=== PATIENT | male | born 1960 | race Caucasian/White ===

== ENCOUNTER 2020-10-06 01:32 | Emergency (ER) | payer OTHER, SELFPAY ==
[2020-10-06 01:32] VITALS: BP 206/108; PULSE 82; RESP 16; TEMP 36.8; O2SAT 100; BMI 32.6
--- NOTE | 2020-10-06 01:55 | CT_ITS ---
PROCEDURE: CT ABDOMEN PELVIS WO CON CLINICAL INDICATION: right flank pain COMPARISON: No exams were available for comparison TECHNIQUE: Axial images obtained with sagittal and coronal reformats. All CT scans at the facility use one or more dose reduction, viz: automated exposure control, ma/kV adjustment per patient size (including targeted exams where dose is matched to indication, i.e. head), or iterative reconstruction technique. FINDINGS: LOWER THORAX: No acute finding ABDOMEN & PELVIS: The liver, spleen, adrenal glands, pancreas has an unremarkable appearance. There are bilateral renal calculi and renal cysts. Stones on the left measure to 11 mm in the lower pole. Stones on the right measure up to 8 mm. There is mild right hydronephrosis and hydroureter secondary to a 6 mm stone at the right ureterovesical junction. Urinary bladder is decompressed. There are multiple calcifications within the prostate. No intestinal obstruction or free air. No evidence of appendicitis or diverticulitis. There is mild osteoarthritic changes of the hips. Sub chondral cystic changes are present in the acetabuli left more extensive than right. IMPRESSION: Bilateral nephrolithiasis with a 6 mm stone in the right distal ureter at the ureterovesical junction causing mild right-sided obstructive uropathy. Dictated by: Jordon Paniagua MD 10/06/2020 06:19 Jordon Paniagua MD in [place] 10/06/2020 06:19
--- NOTE | 2020-10-06 01:56 | PC.NURSE ---
pt stated he is supposed to be taking a medication for HTN but lost it and hasnt been taking it. pt stated he doesnt know the name of the medicatin
[2020-10-06 01:59] VITALS: BP 182/97; PULSE 86; RESP 16; O2SAT 98
--- NOTE | 2020-10-06 01:59 | HMH.EDGENADL ---
ED Disposition Clinical Impression: Renal colic on right side, Urethral colic due to calculus Disposition: Home, Self-Care Condition on Discharge: Good Instructions: DI for Kidney Stones Additional Instructions: see urology for follow up Prescriptions: Tamsulosin HCl [Flomax 0.4mg capsule] 0.4 mg PO HS #10 cap Prescription Printed Referrals: PCP,No [Primary Care Provider] - - Critical Care Critical Care Time: No Attestation: On 10/06/20, the high probability of a clinically significant, sudden or life threatening deterioration of the following system(s) required my full and direct attention, intervention and personal management. The time I documented below is in addition to time spent performing reported procedures but includes the following listed in this critical care notation. Medical Decision Making - Medical Records Medical records reviewed: Yes: I reviewed the patient's medical records. - Kalpesh Inquiry Pt receiving controlled substance: No Vital Signs: 10/06/20 01:32 10/06/20 01:59 Temperature 98.2 F Temperature Source Oral Pulse Rate [Left Radial] 82 86 Respiratory Rate 16 16 Blood Pressure [Right Arm] 206/108 H 182/97 H Blood Pressure Mean [Right Arm] 140 125 Blood Pressure Source [Right Arm] Automatic Cuff Blood Pressure Position [Right Arm] Sitting 02 Sat by Pulse Oximetry 100 98 Oxygen Delivery Method Room Air Room Air - Lab Data Lab results reviewed: Yes: I reviewed the patient's lab results. Lab Results 10/06/20 01:47: Urine Color Yellow, Urine Appearance Clear, Urine pH 6.0, Ur Specific [place] >= 1.030, Urine Protein Trace, Urine Glucose (UA) Negative, Urine Ketones Negative, Urine Blood 2+, Urine Nitrate Negative, Urine Bilirubin Negative, Urine Urobilinogen 1.0, Ur Leukocyte Esterase Negative 10/06/20 01:47: WBC 9.7, RBC 5.02, Hgb 16.2, Hct 47.7, MCV 95.1 H, MCH 32.2 H, MCHC 33.9, RDW 14.0, Plt Count 231, MPV 8.2, Neut % (Auto) 52.2, Lymph % (Auto) 34.9, [place] % (Auto) 7.6, Eos % (Auto) 4.3, Baso % (Auto) 1.0, Neut # (Auto) 5.1, Lymph # (Auto) 3.4, [place] # (Auto) 0.7, Eos # (Auto) 0.4, Baso # (Auto) 0.1 10/06/20 01:47: Sodium 140, Potassium 3.6, Chloride 103, Carbon Dioxide 29, Anion Gap 11.6, BUN 21 H, Creatinine 0.90, Estimated Creat Clear 115, Estimated GFR 86, Est GFR ( Amer) 103, Glucose 111 H, Calcium 9.8, Total Bilirubin 0.5, AST 27, ALT 21, Alkaline Phosphatase 123, Total Protein 8.1, Albumin 4.5, Globulin 3.6 H, Albumin/Globulin Ratio 1.3 Result diagrams: 10/06/20 01:47 10/06/20 01:47 Orders (Tests/Meds): ED MEDICATIONS Discontinued Medications Generic Name Dose Route Start Last Admin Trade Name Freq PRN Reason Stop Dose Admin Tamsulosin HCl 0.4 mg 10/06/20 02:48 Tamsulosin 0.4mg Capsule PO 10/06/20 02:49 ONCE ONE ORDERS Category Date Time Status CT abdomen pelvis wo con Stat Cat Scan 10/06/20 01:55 Taken Urinalysis and Microscopic Stat Lab 10/06/20 01:47 Results - CT Data CT Scan: Abdomen, Pelvis Time Received: 02:[address] Reviewed: Yes: I have viewed the radiologist's interpretation Preliminary Findings: Abnormal (5 mm stone ) General Adult HPI - General Chief complaint: PAIN Stated complaint: Possible Kindey stone Time Seen by Provider: 10/06/20 01:59 Mode of Arrival: Ambulatory Source of Information: Patient, Medical Record Limitations: No Limitations Description of Symptoms (Recalled from ER Triage Doc. by RN): pt complains of right flank pain and pain while urinating. pt stated he has been to the ER and seen his PCP and wa diagnosed with a kidney stone. pt also stated he has an appointment with a urologist on saturday. pt stated he has been given PO torodol to take at home but it hasnt relieved his pain. - History of Present Illness HPI narrative: rt flank pain with hx of kidney stone Onset (ago): day(s) Severity: moderate Associated symptoms: denies other symptoms Treatments prior to arrival: none
[2020-10-06 02:03] LABS: Microscopic, Urine URINE MICROSCOPIC (MICROSCOPIC)
[2020-10-06 02:04] LABS: Basophils # 0.1 K/mm3 (0-0.2); Eosinophils # 0.4 K/mm3 (0.0-0.4); Eosinophils % 4.3 % (0.1-12.0); Hematocrit 47.7 % (42.0-52.0); Hemoglobin 16.2 g/dL (14.1-18.0); Lymphocytes # 3.4 K/mm3 (0.7-4.5); Lymphocytes % 34.9 % (10-50); Mean Corpuscular HGB Conc 33.9 g/dL (31.8-35.4); Mean Corpuscular Hemoglobin 32.2 pg (27.0-31.2); Mean Corpuscular Volume 95.1 fl (80-94); Mean Platelet Volume 8.2 fl (7.4-10.4); Monocytes # 0.7 K/mm3 (0.1-1.0); Monocytes % 7.6 % (1.7-9.3); Neutrophils # 5.1 K/mm3 (1.8-7.8); Neutrophils % 52.2 % (37.0-80.0); Platelet Count 231 K/mm3 (142-424); Red Blood Count 5.02 M/mm3 (4.60-6.20); White Blood Count 9.7 K/mm3 (4.8-10.8)
[2020-10-06 02:06] LABS: Appearance,Urine CLEAR (Clear); Bilirubin,Urine Negative (Negative); Blood, Urine 2+ (Negative); Color,Urine YELLOW (Yellow); Glucose,Urine (UA) Negative (Negative); Ketones,Urine Negative (Negative); Leukocyte Esterase,Urine Negative (Negative); Nitrate,Urine Negative (Negative); Protein,Urine TRACE (Negative); Specific Gravity, Urine >= 1.030 (1.005-1.030)
[2020-10-06 02:09] LABS: Alanine Aminotransferase 21 U/L (12-78); Albumin Level 4.5 g/dl (3.5-5.0); Albumin/Globulin Ratio 1.3 (1.1-1.8); Alkaline Phosphatase 123 U/L (38-126); Anion Gap 11.6 mEq/L (5-15); Aspartate Amino Transferase 27 U/L (17-59); Bilirubin,Total 0.5 mg/dl (0.2-1.3); Blood Urea Nitrogen 21 mg/dl (9-20); Calcium 9.8 mg/dl (8.4-10.2); Carbon Dioxide 29 mmol/L (22.0-30.0); Chloride 103 mmol/L (98-107); Creatinine Clearance Estimated 115 mL/min (50-200); Estimated Glomerular Filt Rate 86 ml/min (>60); GFR (African American) 103 ML/MIN (>60); Globulin 3.6 g/dL (1.3-3.2); Glucose 111 mg/dl (74-100); Potassium 3.6 mmoL/L (3.5-5.1); Sodium 140 mmol/L (136-145); Total Protein,Serum 8.1 g/dl (6.3-8.2)
--- NOTE | 2020-10-06 02:23 | PC.NURSE ---
pt back from RAD
[2020-10-06 02:53] LABS: Amorphous Sediment,Urine Trace /lpf; Bacteria,Urine 1+ /lpf; Calcium Oxalate Crystals,Urine 1+ /lpf; RBC,Urine 20-50 #/hpf (0-3); WBC,Urine Occasional #/hpf (0-3)
[2020-10-06 03:08] VITALS: BP 179/89; PULSE 81; RESP 16; TEMP 36.7; O2SAT 98
== END 2020-10-06 03:09 | disposition home or self-care (01) ==
PROVIDERS: Emergency Provider Emergency Medicine
DX: N21.1 Calculus in urethra (principal); F17.210 Nicotine dependence, cigarettes, uncomplicated
CPT/HCPCS: 74176; 80053; 81001; 85025; 99283

== ENCOUNTER 2021-05-01 20:29 | Emergency (ER) | payer OTHER, SELFPAY ==
[2021-05-01] VITALS (7 sets, daily range): BP systolic 126–199; BP diastolic 68–93; PULSE 66–79; RESP 20; TEMP 36.7; O2SAT 95–99; BMI 31.4
--- NOTE | 2021-05-01 21:00 | PC.NURSE ---
Dr. Bosch on phone with Dr. Mark Albarado of [facility] hand team
--- NOTE | 2021-05-01 21:48 | XR_ITS ---
PROCEDURE INFORMATION: Exam: XR Left Hand Exam date and time: 05/01/2021 9:48 PM Age: 60 years old Clinical indication: Injury or trauma; Other: Plastic rim on furniture luis m exploded, severe trauma to left 4th finger. ; Work related; Amputation, traumatic and bleeding/hemorrhage and blunt trauma (contusions or hematomas); Left ring finger; Patient HX: Patient was putting air in a furniture luis m tire when the plastic rim exploded causing trauma to left 4th (ring) finger. ; Additional info: Finger amp TECHNIQUE: Imaging protocol: XR Left hand. Views: 3 or more views. COMPARISON: No relevant prior studies available. FINDINGS: Bones/joints: Fracture/amputation tuft fourth distal phalanx. No dislocation. Soft tissues: Soft tissue loss along distal fourth digit. Tiny artifact or radiopaque foreign body along distal second digit. IMPRESSION: Fourth distal phalanx fracture/amputation.
--- NOTE | 2021-05-01 23:03 | PC.NURSE ---
Dr. Mark Albarado, hand team @ [facility] has accepted patient to [facility]
--- NOTE | 2021-05-01 23:16 | HMH.EDGENADL ---
ED Disposition Clinical Impression: Amputation of finger tip Disposition: Xfer Other Condition on Discharge: Good Additional Instructions: Go to [facility] ED for evaluation for your finger Referrals: Provider,Referral, [Primary Care Provider] - Forms: Transfer Record - ED - Critical Care Critical Care Time: No Attestation: On 05/01/21, the high probability of a clinically significant, sudden or life threatening deterioration of the following system(s) required my full and direct attention, intervention and personal management. The time I documented below is in addition to time spent performing reported procedures but includes the following listed in this critical care notation. Medical Decision Making - Medical Records Medical records reviewed: Yes: I reviewed the patient's medical records. - Kalpesh Inquiry Pt receiving controlled substance: No Vital Signs: 05/01/21 20:30 05/01/21 21:00 05/01/21 21:30 Temperature 98.0 F Temperature Source Oral Pulse Rate 70 72 Pulse Rate [Right] 79 Respiratory Rate 20 Blood Pressure 164/80 H 185/88 H Blood Pressure [Right Arm] 126/68 Blood Pressure Mean 94 115 Blood Pressure Mean [Right Arm] 87 02 Sat by Pulse Oximetry 98 97 98 Oxygen Delivery Method Room Air Room Air Room Air 05/01/21 22:00 05/01/21 22:30 05/01/21 23:00 Temperature Temperature Source Pulse Rate 70 70 66 Pulse Rate [Right] Respiratory Rate Blood Pressure 199/92 H 194/93 H 173/88 H Blood Pressure [Right Arm] Blood Pressure Mean Blood Pressure Mean [Right Arm] 02 Sat by Pulse Oximetry 95 99 98 Oxygen Delivery Method Orders (Tests/Meds): ED MEDICATIONS Discontinued Medications Generic Name Dose Route Start Last Admin Trade Name Ernestoq PRN Reason Stop Dose Admin Cefazolin Sodium 2 gm/ Sodium 50 mls @ 100 mls/hr 05/01/21 20:50 05/01/21 21:48 Chloride IV 05/01/21 21:19 100 mls/hr ONCE ONE Administration Protocol Morphine Sulfate 4 mg 05/01/21 22:33 05/01/21 20:45 Morphine 4mg/Ml Syringe IV 05/01/21 22:34 4 mg ONCE ONE Administration Ondansetron HCl 4 mg 05/01/21 22:33 05/01/21 20:45 Ondansetron 4mg/2ml Vial IV 05/01/21 22:34 4 mg ONCE ONE Administration Medical Decision Narrative: 60-year-old male presents with finger injury. Up-to-date on tetanus. Given Ancef. X-ray ordered which showed fingertip amputation. Discussed with [facility] on will transfer to [facility] for amp revision. sent by private vehicle. General Adult HPI - General Chief complaint: Extremity Injury, Upper Stated complaint: hand injury Time Seen by Provider: 05/01/21 20:40 Mode of Arrival: Family Vehicle Limitations: No Limitations Description of Symptoms (Recalled from ER Triage Doc. by RN): Pt was changin a tire, when it exploded off of the rim and pt sustained injuries to left 3rd & 4th digit. Laceration to posterior 3rd digit. Tip of the 4th digit is missing. Pt states he had a tetanus shot 3 yrs ago. He denies any pain or injury to head, chest, or face during the explosive - History of Present Illness HPI narrative: 60-year-old male with no significant past medical history who presents with a left hand injury. With a cart blowing up a tire when it broke and crushed his left fourth finger and middle finger. Sudden onset, severe, nonradiating pain in his hand. Bleeding controlled on scene. Came here for further evaluation. No other injuries. - Related Data Previous Rx's Medication Instructions Recorded Tamsulosin HCl [Flomax 0.4mg 0.4 mg PO HS #10 cap 10/06/20 capsule] Allergies Allergy/AdvReac Type Severity Reaction Status Date / Time No Known Allergies Allergy Verified 10/06/20 01:53 [facility] History - Hepatitis A Screen Drug use history?: No High risk sexual behaviors?: No History of sexually transmitted infection?: No Currently employed?: No
== END 2021-05-02 | disposition other institution (70) ==
PROVIDERS: Emergency Provider Emergency Medicine
DX: S68.125A Partial traumatic metacarpophalangeal amputation of left ring finger, initial encounter (principal); S61.213A Laceration without foreign body of left middle finger without damage to nail, initial encounter; W37.8XXA Explosion and rupture of other pressurized tire, pipe or hose, initial encounter; Y92.89 Other specified places as the place of occurrence of the external cause; Y99.8 Other external cause status; F17.210 Nicotine dependence, cigarettes, uncomplicated
CPT/HCPCS: 73130; 96365; 96375; 99283; J2405

== ENCOUNTER 2021-05-28 18:21 | Emergency (ER) | payer OTHER, SELFPAY ==
[2021-05-28 18:22] VITALS: BP 170/94; PULSE 88; RESP 16; TEMP 37; O2SAT 98; BMI 31.4
--- NOTE | 2021-05-28 18:36 | HMH.EDGENADL ---
ED Disposition Clinical Impression: Corneal abrasion Qualifiers: Encounter type: initial encounter Laterality: right Qualified Code(s): S05.01XA - Injury of conjunctiva and corneal abrasion without foreign body, right eye, initial encounter Disposition: Home, Self-Care Condition on Discharge: Good Instructions: DI for Corneal Abrasion Additional Instructions: Use gentamicin eyedrops 1 drop in your right eye every 4 hours while awake. See Dr. Friedman or one of his partners at [facility] tomorrow. Call tomorrow morning to make appointment. Dr. Lino Friedman [facility] [address] [place] [address] Additional instructions for EYE PAIN or INJURY: Return to the emergency department if severe pain, loss of vision, pus drainage, severe swelling or redness of eyelids. Referrals: Provider,Referral, [Primary Care Provider] - - Critical Care Critical Care Time: No Attestation: On 05/28/21, the high probability of a clinically significant, sudden or life threatening deterioration of the following system(s) required my full and direct attention, intervention and personal management. The time I documented below is in addition to time spent performing reported procedures but includes the following listed in this critical care notation. Medical Decision Making - Kalpesh Inquiry Pt receiving controlled substance: No Vital Signs: 05/28/21 18:22 Temperature 98.6 F Temperature Source Oral Pulse Rate [Radial] 88 Respiratory Rate 16 Blood Pressure [Right Radial Artery] 170/94 H Blood Pressure Mean [Right Radial Artery] 119 Blood Pressure Position [Right Radial Artery] Sitting 02 Sat by Pulse Oximetry 98 Oxygen Delivery Method Room Air General Adult HPI - General Stated complaint: FB R eye Time Seen by Provider: 05/28/21 18:36 - History of Present Illness HPI narrative: Hit in his right eye with a branch earlier today, has persistent foreign body sensation in the upper outer aspect of his eye. Wears reading glasses, no other visual correction, no contact lens wear. - Related Data Previous Rx's Medication Instructions Recorded Tamsulosin HCl [Flomax 0.4mg 0.4 mg PO HS #10 cap 10/06/20 capsule] Allergies Allergy/AdvReac Type Severity Reaction Status Date / Time No Known Allergies Allergy Verified 10/06/20 01:53 [facility] History - Hepatitis A Screen Attestation statement:: This patient has been screened for Hepatitis A risk factors. I have reviewed the patient's past medical history: Yes - Social History Smoking Status: Current every day smoker # Packs/Day (cigarettes): 1 Alcohol Intake: never Occupational Status: unemployed ROS Obtained: Yes Systems reviewed as appropriate & no additional complaints - Eyes Eyes: Denies blind spots, Reports eye pain, Denies photophobia Physical Exam - General General appearance: alert, in no apparent distress - Head Head exam: atraumatic, normocephalic - Expanded Eye Exam Slit lamp exam: performed Eyelids: right: swelling eyelids (Minimal) Pupils: Right: regular, round Sclera/Conjunctival: right: injection Anterior chamber: bilateral: normal inspection Both Eyes Image: 1 - Corneal abrasion Comment: Fluorescein staining performed with magnification. Abrasion as noted. No foreign bodies of cornea noted. Lids everted, no foreign bodies found. Upper lid swept with moistened Q-tip. - Respiratory Respiratory exam: Absent: respiratory distress - Cardiovascular Cardiovascular exam: Present: regular rate - Neurological Exam Neurological exam: Present: alert, oriented X3 - Psychiatric Psychiatric exam: Present: normal affect, normal mood - Skin Skin exam: Present: warm, dry
--- NOTE | 2021-05-28 18:47 | PC.NURSE ---
Dr Navarro with pt using the Slit Lamp.
[2021-05-28 19:15] VITALS: BP 167/5; PULSE 78; RESP 17; TEMP 36.8; O2SAT 98
== END 2021-05-28 19:18 | disposition home or self-care (01) ==
PROVIDERS: Emergency Provider Emergency Medicine
DX: S05.01XA Injury of conjunctiva and corneal abrasion without foreign body, right eye, initial encounter (principal); W22.8XXA Striking against or struck by other objects, initial encounter; Y92.9 Unspecified place or not applicable; F17.210 Nicotine dependence, cigarettes, uncomplicated
CPT/HCPCS: 99282

== ENCOUNTER 2022-05-19 15:08 | Emergency (ER) | payer OTHER, SELFPAY ==
[2022-05-19 15:15] VITALS: BP 131/86; PULSE 79; RESP 19; TEMP 36.7; O2SAT 97; BMI 30.7
--- NOTE | 2022-05-19 15:29 | HMH.EDUTC ---
[facility] Disposition Clinical Impression: Exposure to COVID-19 virus Disposition: Home, Self-Care Condition on Discharge: Good Instructions: DI for COVID-19 (Suspected or Confirmed ) Additional Instructions: You have been tested for COVID19. Please isolate yourself as if you are positive until test results received. Referrals: Provider,Referral, [Primary Care Provider] - Time of Disposition: 15:31 Medical Decision Making - Kalpesh Inquiry Pt receiving controlled substance: No Vital Signs: 05/19/22 15:15 Temperature 98.1 F Temperature Source Oral Pulse Rate [Right Brachial] 79 Respiratory Rate 19 Blood Pressure [Right Arm] 131/86 Blood Pressure Mean [Right Arm] 101 Blood Pressure Source [Right Arm] Automatic Cuff Blood Pressure Position [Right Arm] Sitting 02 Sat by Pulse Oximetry 97 Oxygen Delivery Method Room Air Orders (Tests/Meds): ORDERS Category Date Time Status Covid-19 Nasal PCR ([facility]) Routine Lab 05/19/22 15:17 Received [facility] HPI - General Stated complaint: exposed to covid, cough Time Seen by Provider: 05/19/22 15:29 Mode of Arrival: Ambulatory Source of Information: Patient Limitations: No Limitations Description of Symptoms (Recalled from Triage Doc. by RN): PATIENT C/O FATIGUE AND COUGH X2 DAYS. RECENTLY EXPOSED TO COVID HEENT Symptoms (Recalled from RN notes): No Resp Symptoms (Recalled from RN notes): Yes Skin Symptoms (Recalled from RN notes): No MS Symptoms (Recalled from RN notes): No Functional Status (Recalled from RN notes): WNL - History of Present Illness Provider Complaint: Cough X 2 days. Sister and brother in law have COVID19 currently. Saw them last 1 week ago. Onset (ago): day(s) (2) Location: chest Relieving factors: none Exacerbating factors: none Associated symptoms: cough Treatments prior to arrival: none - Related Data Previous Rx's Medication Instructions Recorded Tamsulosin HCl [Flomax 0.4mg 0.4 mg PO HS #10 cap 10/06/20 capsule] Allergies Allergy/AdvReac Type Severity Reaction Status Date / Time No Known Allergies Allergy Verified 10/06/20 01:53 - Worker's Comp Is this a Worker's Comp case?: No [facility] History - Hepatitis A Screen Attestation statement:: This patient has been screened for Hepatitis A risk factors. I have reviewed the patient's past medical history: Yes - Social History Smoking Status: Current every day smoker # Packs/Day (cigarettes): 1 Alcohol Intake: never Occupational Status: unemployed ROS Obtained: Yes All systems reviewed & no additional complaints - Respiratory Respiratory: Reports cough Physical Exam - General General appearance: alert, in no apparent distress - Head Head exam: normocephalic - Eye Eye exam: Present: PERRL - ENT ENT exam: Present: normal oropharynx, TM's normal bilaterally - Neck Neck exam: Present: normal inspection. Absent: lymphadenopathy - Chest Chest inspection: Present: normal inspection, symmetric chest wall rise - Respiratory Respiratory exam: Present: normal lung sounds bilaterally - Cardiovascular Cardiovascular exam: Present: regular rate, normal rhythm - Neurological Exam Neurological exam: Present: alert, oriented X3 - Psychiatric Psychiatric exam: Present: normal affect, normal mood - Skin Skin exam: Present: warm, dry, intact
[2022-05-19 15:40] VITALS: BP 131/86; PULSE 79; RESP 19; TEMP 36.7; O2SAT 97
== END 2022-05-19 15:43 | disposition home or self-care (01) ==
PROVIDERS: Emergency Provider Physician Assistant
DX: R05.9 Cough, unspecified; R53.83 Other fatigue; Z72.0 Tobacco use; Z20.822 Contact with and (suspected) exposure to COVID-19
CPT/HCPCS: 99212; C9803; G0463; U0003; U0005

== ENCOUNTER 2022-09-17 08:24 | Emergency (ER) | payer OTHER, SELFPAY ==
--- NOTE | 2022-09-17 08:21 | ECG_ITS ---
APPROVED REPORT Exam: Resting ECG HR:79 bpm ECG Measurements Heart Rate 79 AXES RI 144 P 29 QRSd 108 QRS 9 QT 370 T 61 QTc 404 Conclusion SINUS RHYTHM INCOMPLETE RIGHT BUNDLE BRANCH BLOCK [90+ ms QRS DURATION, TERMINAL R IN V1/V2, 40+ ms S IN I/aVL/V4/V5/V6] MODERATE ST DEPRESSION [0.05+ mV ST DEPRESSION] ABNORMAL ECG UNCONFIRMED REPORT Electronically signed by : Arik Sky MD 09/17/2022 21:40:20
[2022-09-17 08:25] VITALS: BP 178/92; PULSE 76; RESP 17; TEMP 36.8; O2SAT 98; BMI 31.6
[2022-09-17 08:29] VITALS: BP 172/76; PULSE 70; RESP 17; TEMP 36.7; O2SAT 99
--- NOTE | 2022-09-17 08:32 | HMH.EDGENADL ---
Discharge Plan Disposition Patient Disposition: Home, Self-Care Condition: Good Chief Complaint: Chest Pain Prescriptions Prescriptions: No Action tamsulosin 0.4 MG capsule 0.4 mg PO HS Qty: 10 0RF Referrals Follow up/Referrals: Provider,Referral, [Primary Care Provider] - See instructions Anitra Mathews DO [Staff Physician] - 7-14 days Clinical Impressions Clinical Impression: Chest pain Instructions Patient Instructions: DI for Atypical Chest Pain Discharge ED Provider: Dl Mendez General Adult HPI General Chief complaint: Chest Pain Stated complaint: CHEST PAIN Time Seen by Provider: 09/17/22 08:32 Mode of Arrival: Ambulatory Limitations: No Limitations Description of Symptoms (Recalled from ER Triage Doc. by RN): PT REPORTS CHEST PAIN FOR 2 WEEKS. REPORTS CHEST PRESSURE History of Present Illness HPI narrative: 62-year-old male with prior medical history of hypertension, hyperlipidemia, does report active smoking, denies any prior cardiac work-up, specifically no prior stress test or cardiac cath. He presents with chest pain described as tightness across the chest has been ongoing for approximately 2 weeks, states he has experienced a crescendo last night but waited till this morning to come in as it is just been worsening recently. He denies any associated shortness of breath, nausea, vomiting, diaphoresis, radiation to the back, denies exertional component. Denies radiation to the arms, neck or jaw. He not taken any nitroglycerin or aspirin or attempted any other symptomatic treatments thus far. Currently rates pain as moderate, he does state that it seems worse at night particularly with lying down however it was present before he lie down he does not note burning or have any known history of GERD. Related Data Previous Rx's Medication Instructions Recorded tamsulosin 0.4 mg capsule 0.4 mg PO HS #10 caps 10/06/20 Allergies Allergy/AdvReac Type Severity Reaction Status Date / Time No Known Allergies Allergy Verified 10/06/20 01:53 [facility] 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 (Updated 09/17/22 @ 09:51 by Dl Mendez MD) Hypertension Surgical History (Updated 09/17/22 @ 08:34 by Irena Mcneal RN) History of knee surgery History of neck surgery History of shoulder surgery Hx of inguinal hernia repair Family History (Updated 09/17/22 @ 08:34 by Irena Mcneal RN) Other No significant family 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 Smoking Status: Current every day smoker alcohol intake: never current occupational status: unemployed Travel in the last 8 weeks: None ROS Obtained: Yes Systems reviewed as appropriate & no additional complaints except as documented Constitutional Constitutional: Reports system reviewed and no additional complaints, except as documented Eyes Eyes: Reports system reviewed and no additional complaints, except as documented ENT Ears, Nose, Mouth, and Throat: Reports system reviewed and no additional complaints, except as documented Cardiovascular Cardiovascular: Reports system reviewed and no additional complaints, except as documented Respiratory Respiratory: Reports system reviewed and no additional complaints, except as documented Gastrointestinal Gastrointestingal: Reports system reviewed and no additional complaints, except as documented Genitourinary Male Genitourinary: Reports system reviewed and no additional complaints, except as documented Musculoskeletal Musculoskeletal: Reports system reviewed and no additional complaints, except as documented Integumentary/Breasts Skin/Breast: Reports system reviewed and no additional complaints, except as documented Neurologic Neurologic: Reports system reviewed and no additional complaints, except as documented Endocrine Endocrine: Reports system reviewed and no additional complaints, except as documented Hematologic/Lymphatic Henatologic/Lymphatic: Rep
--- NOTE | 2022-09-17 08:35 | PC.NURSE ---
ED MD AT BEDSIDE FOR EVALUATION
[2022-09-17 08:50] LABS: Basophils # 0.1 K/mm3 (0-0.2); Basophils % 0.9 % (0.1-2.0); Eosinophils # 0.3 K/mm3 (0.0-0.4); Eosinophils % 4.2 % (0.1-12.0); Hematocrit 45.3 % (42.0-52.0); Lymphocytes # 2.7 K/mm3 (0.7-4.5); Lymphocytes % 38.1 % (10-50); Mean Platelet Volume 8.3 fl (7.4-10.4); Monocytes # 0.5 K/mm3 (0.1-1.0); Monocytes % 6.9 % (1.7-9.3); Neutrophils # 3.6 K/mm3 (1.8-7.8); Neutrophils % 49.9 % (37.0-80.0); Platelet Count 234 K/mm3 (142-424); Red Blood Count 4.82 M/mm3 (4.60-6.20); Red Cell Distribution Width 13.8 % (11.5-17.5); White Blood Count 7.1 K/mm3 (4.8-10.8)
[2022-09-17 08:57] LABS: Anion Gap 11.6 mEq/L (5-15); Blood Urea Nitrogen 15 mg/dl (9-20); Calcium 9.5 mg/dl (8.4-10.2); Carbon Dioxide 31 mmol/L (22.0-30.0); Chloride 102 mmol/L (98-107); Creatinine Clearance Estimated 109 mL/min (50-200); Estimated Glomerular Filt Rate 114 ml/min (>60); GFR (African American) 137 ML/MIN (>60); Glucose 128 mg/dl (74-100); Potassium 3.6 mmoL/L (3.5-5.1); Sodium 141 mmol/L (136-145)
[2022-09-17 09:01] VITALS: BP 177/81; PULSE 60; RESP 18; O2SAT 96
[2022-09-17 09:09] LABS: Troponin I < 0.01 ng/ml (0.00-0.034)
[2022-09-17 09:31] VITALS: BP 160/76; PULSE 66; RESP 18; O2SAT 95
--- NOTE | 2022-09-17 09:43 | PC.NURSE ---
ED MD AT BEDSIDE TO REEVALUATE PT
[2022-09-17 09:54] VITALS: BP 160/76; PULSE 60; RESP 18; TEMP 36.7; O2SAT 95
== END 2022-09-17 09:55 | disposition home or self-care (01) ==
PROVIDERS: Emergency Provider Emergency Medicine
DX: R07.9 Chest pain, unspecified (principal); I10 Essential (primary) hypertension; E78.5 Hyperlipidemia, unspecified
CPT/HCPCS: 80048; 84484; 85025; 93005; 99284

== ENCOUNTER → 2022-09-25 08:27 | Outpatient (CLI) | payer OTHER, SELFPAY ==
[2022-09-25 09:12] LABS: Microscopic, Urine URINE MICROSCOPIC (MICROSCOPIC)
[2022-09-25 09:25] LABS: Appearance,Urine CLEAR (Clear); Bilirubin,Urine Negative (Negative); Blood, Urine TRACE-L (Negative); Color,Urine YELLOW (Yellow); Glucose,Urine (UA) Negative (Negative); Ketones,Urine TRACE (Negative); Leukocyte Esterase,Urine Negative (Negative); Nitrate,Urine Negative (Negative); Protein,Urine TRACE (Negative)
[2022-09-25 09:27] LABS: Basophils # 0.1 K/mm3 (0-0.2); Basophils % 1.1 % (0.1-2.0); Eosinophils # 0.2 K/mm3 (0.0-0.4); Eosinophils % 2.9 % (0.1-12.0); Hematocrit 46.1 % (42.0-52.0); Lymphocytes # 2.5 K/mm3 (0.7-4.5); Lymphocytes % 29.7 % (10-50); Mean Corpuscular HGB Conc 32.6 g/dL (31.8-35.4); Mean Corpuscular Hemoglobin 31.2 pg (27.0-31.2); Mean Corpuscular Volume 95.7 fl (80-94); Mean Platelet Volume 8.3 fl (7.4-10.4); Monocytes # 0.6 K/mm3 (0.1-1.0); Monocytes % 6.6 % (1.7-9.3); Neutrophils % 59.7 % (37.0-80.0); Platelet Count 256 K/mm3 (142-424); Red Blood Count 4.82 M/mm3 (4.60-6.20); White Blood Count 8.4 K/mm3 (4.8-10.8)
[2022-09-25 09:42] LABS: RBC,Urine Occasional #/hpf (0-3)
[2022-09-25 09:58] LABS: Hemoglobin A1C 5.5 % (4.0-6.0)
[2022-09-25 10:02] LABS: Alanine Aminotransferase 19 U/L (12-78); Albumin Level 4.4 g/dl (3.5-5.0); Albumin/Globulin Ratio 1.6 (1.1-1.8); Alkaline Phosphatase 106 U/L (38-126); Anion Gap 17.3 mEq/L (5-15); Aspartate Amino Transferase 23 U/L (17-59); Bilirubin,Total 0.3 mg/dl (0.2-1.3); Blood Urea Nitrogen 17 mg/dl (9-20); Calcium 9.7 mg/dl (8.4-10.2); Carbon Dioxide 27 mmol/L (22.0-30.0); Chloride 102 mmol/L (98-107); Chol/HDL Ratio 5.2 (1-3.5); Cholesterol 177 mg/dl (140-200); Estimated Glomerular Filt Rate 114 ml/min (>60); GFR (African American) 137 ML/MIN (>60); Globulin 2.8 g/dL (1.3-3.2); Glucose 91 mg/dl (74-100); HDL Cholesterol 34 mg/dl (40-60); Potassium 4.3 mmoL/L (3.5-5.1); Sodium 142 mmol/L (136-145); Total Protein,Serum 7.2 g/dl (6.3-8.2); Triglycerides 140 mg/dl (30-150); VLDL Cholesterol 28 mg/dL (0-40)
[2022-09-25 10:13] LABS: Direct LDL Cholesterol 118.01 mg/dL (100-129)
[2022-09-25 10:32] LABS: Prostate Specific Ag Screen 0.3 ng/ml (0.0-4.0); Thyroid Stimulating Hormone 4.76 uIU/mL (0.465-4.68)
== END ==
PROVIDERS: PCP Family Medicine; Visit Provider Family Medicine
DX: R07.9 Chest pain, unspecified (principal); R10.9 Unspecified abdominal pain; I10 Essential (primary) hypertension; E66.9 Obesity, unspecified; Z68.33 Body mass index [BMI] 33.0-33.9, adult; Z12.5 Encounter for screening for malignant neoplasm of prostate
CPT/HCPCS: 36415; 80053; 80061; 81001; 83036; 84443; 85025; G0103

== ENCOUNTER 2022-10-27 11:02 | Emergency (ER) | payer OTHER, SELFPAY ==
--- NOTE | 2022-10-27 11:40 | XR_ITS ---
PROCEDURE INFORMATION: Exam: XR Right Shoulder Exam date and time: 10/27/2022 11:37 AM Age: 62 years old Clinical indication: Patient HX: Pain in right shoulder, popped 2 days ago TECHNIQUE: Imaging protocol: Radiologic exam of the Right shoulder. Views: 2 or more views. COMPARISON: No relevant prior studies available. FINDINGS: Bones/joints: Degenerative changes of the glenohumeral and acromioclavicular joints. There is no evidence of acute fracture. There is no evidence of joint malalignment or dislocation. Postoperative changes of the lower cervical upper thoracic spine. Soft tissues: No focal soft tissue swelling. IMPRESSION: 1. Degenerative changes of the glenohumeral and acromioclavicular joints. 2. No evidence of acute fracture. 3. No evidence of acute dislocation.
[2022-10-27 11:52] VITALS: BP 186/90; PULSE 75; RESP 16; TEMP 37.1; O2SAT 96; BMI 31.4
--- NOTE | 2022-10-27 12:18 | EXP.UTC ---
Discharge Plan Disposition Patient Disposition: Home, Self-Care Condition: Good Prescriptions Prescriptions: New diclofenac sodium 1 % gel 4 g topical QID Qty: 100 0RF Rx Instructions: apply to right shoulder No Action pantoprazole [Protonix] 40 mg tablet,delayed release (DR/EC) 40 mg PO DAILY Qty: 30 1RF cyclobenzaprine 10 mg tablet 10 mg PO TID PRN (Reason: muscle spasm) Qty: 90 1RF lisinopril 20 mg tablet 20 mg PO DAILY Qty: 30 1RF Referrals Follow up/Referrals: Anitra Mathews DO [Primary Care Provider] - See instructions Clinical Impressions Clinical Impression: Shoulder pain Qualifiers: Chronicity: acute Laterality: right Qualified Code(s): M25.511 - Pain in right shoulder Discharge ED Provider: Vicenta Gonsalez [facility] General Stated complaint: Right shoulder pain, no accident Mode of Arrival: Ambulatory Limitations: No Limitations Time Seen by Provider: 10/27/22 12:19 Description of Symptoms (Recalled from Triage Doc. by RN): pt comes in with c/o right arm pain. pt states he felt his arm pop yesterday. symptoms began yesterday HEENT Symptoms (Recalled from RN notes): No Resp Symptoms (Recalled from RN notes): No Skin Symptoms (Recalled from RN notes): No MS Symptoms (Recalled from RN notes): Yes Functional Status (Recalled from RN notes): n/a History of Present Illness Provider Complaint: Pt relates that he has had 6 surgeries on his right shoulder in the past. He that that it pops and cracks all the time. He states that he was lifting up his arm last night and he heard a pop and he has not been able to move his shoulder well since that time. Related Data Previous Rx's Medication Instructions Recorded cyclobenzaprine 10 mg tablet 10 mg PO TID PRN muscle spasm #90 10/08/22 tabs lisinopril 20 mg tablet 20 mg PO DAILY #30 tabs 10/08/22 pantoprazole 40 mg tablet,delayed 40 mg PO DAILY #30 tabs 10/08/22 release (Protonix) diclofenac sodium 1 % topical gel 4 g topical QID #100 grams 10/27/22 Allergies Allergy/AdvReac Type Severity Reaction Status Date / Time No Known Allergies Allergy Verified 10/27/22 11:56 Worker's Comp Is this a Worker's Comp case?: No [facility] Disclaimer: The information contained in this section may have been updated after the patient was seen, as this information can be updated by other users. 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 Amputation of finger tip Corneal abrasion Exposure to COVID-19 virus Hypertension Nerve damage Renal colic on right side Urethral colic due to calculus Surgical History History of knee surgery History of neck surgery History of shoulder surgery Hx of inguinal hernia repair Family History Other No significant family 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 Smoking Status: Current every day smoker tobacco type: cigarettes packs per day: 1 pack-years: 20 quit status: has quit before alcohol intake: never substance use type: denies use current occupational status: unemployed Travel in the last 8 weeks: None adopted: No caregiver/support person: No foster care: No household members: friend(s) housing: apartment lives independently: Yes marital status: single number of children: 3 number of grandchildren: 7 service: Yes (discharged 1985) 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: No ROS Obtained: Yes All systems reviewed & no additional complaints except as documented Constitutional Constitutional: Reports system reviewed and no additional complaints, except as documented Eyes Eyes: Reports system reviewed and no additional complaints, except as documented ENT Ears, Nose, Mouth, and Throat: Reports system reviewed and no additional complaints, except as documented
[2022-10-27 12:36] VITALS: BP 186/90; PULSE 75; RESP 16; TEMP 37.1
== END 2022-10-27 12:37 | disposition home or self-care (01) ==
PROVIDERS: Emergency Provider Nurse Practitioner Family; PCP Family Medicine
DX: M25.511 Pain in right shoulder (principal)
CPT/HCPCS: 73030; 99212; G0463

== ENCOUNTER → 2022-12-03 12:16 | Outpatient (CLI) | payer OTHER, SELFPAY ==
--- NOTE | 2022-12-03 12:21 | XR_ITS ---
FINAL REPORT CLINICAL HISTORY: neck pain FINDINGS: AP, lateral and odontoid views of the cervical spine were obtained. There is no prior exam for comparison. There are postoperative changes from anterior fusion of C7-T1. Alignment is normal. There is no acute fracture. Multilevel degenerative disc disease is most pronounced at C6-7. Precervical soft tissues are unremarkable. IMPRESSION: Postoperative changes with no acute osseous abnormality of the cervical spine. Reviewed, Interpreted and Dictated by Monica Patel MD Transcribed by Chiquita Koo Authenticated and [facility]
--- NOTE | 2022-12-03 12:21 | XR_ITS ---
FINAL REPORT CLINICAL HISTORY: Precordial chest pain FINDINGS: PA and lateral views of the chest are obtained. There is no prior exam for comparison. The cardiac and mediastinal silhouettes are within normal limits. The lungs are clear. There is no pleural effusion, pneumothorax, or acute osseous abnormality. IMPRESSION: No radiographic evidence of acute cardiac or pulmonary disease. Reviewed, Interpreted and Dictated by Monica Patel MD Transcribed by Chiquita Koo Authenticated and [facility]
== END ==
PROVIDERS: PCP Family Medicine; Visit Provider Family Medicine
DX: M54.2 Cervicalgia (principal); R07.9 Chest pain, unspecified
CPT/HCPCS: 71046; 72040

== ENCOUNTER → 2022-12-12 08:51 | Outpatient (POV) | payer OTHER, SELFPAY ==
[2022-12-12 09:18] VITALS: BP 177/84; PULSE 77; RESP 18; O2SAT 98; BMI 34.8
--- NOTE | 2022-12-12 09:34 | EXP.PAIN.OV ---
HPI Data of Consult Patient: new to practice Consult date: 12/12/22 Requesting Physician: Anais Chow APRN Consult Narrative Reason for consult: Neck pain, bilateral shoulder pain History of present illness: Mr. Nelson is a 62 year old male who presents today as a new patient. He is a referral from Anitra Chow's office. Today he rates his pain a 9 out of 10. Patient states his pain is all in his neck and radiating into his bilateral shoulders and arms. Patient does describe this as a aching, throbbing sensation that is worse with increased activity. 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 Patient does states that he will have occasional catching sensations in his shoulders with limited range of motion and that it is almost a constant pain. Patient states he has had a cervical fusion approximately 9 years ago as well as bilateral shoulder procedures including rotator cuff repair. Patient has tried Tylenol and ibuprofen with minimal improvement. Patient states he was told to stop his ibuprofen indefinitely about 1 month ago due to a GI bleed. Patient has tried heat and ice with no difference in his symptoms. He was given a prescription cream that he states did provide some relief. Patient has also tried muscle relaxers in the past and was seen at a pain clinic as well. Patient states that he has had multiple injections including shoulder knee and upper back with no additional improvement. Patient was also on oxycodone therapy at this clinic and states it did provide some improvement. Patient denies any cardiac or kidney issues. Patient states he has also been to physical therapy years ago however this worsened his symptoms and he was not able to complete the visits. Patient was ordered x-rays of his cervical spine with the plan to have an MRI however insurance denied this request. Patient is not on any scheduled medications. His Kalpesh is [id number]. Its been reviewed and appropriate. CC: Anais Chow APRN [facility] Disclaimer: The information contained in this section may have been updated after the patient was seen, as this information can be updated by other users. 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 Amputation of finger tip Corneal abrasion Exposure to COVID-19 virus Hypertension Nerve damage Renal colic on right side Urethral colic due to calculus Surgical History History of knee surgery History of neck surgery History of shoulder surgery Hx of inguinal hernia repair Family History Other No significant family 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 (Updated 12/12/22 @ 09:23 by Roslyn Mae RN) Smoking Status: Current every day smoker tobacco type: cigarettes packs per day: 1 pack-years: 20 quit status: has quit before alcohol intake: never substance use type: denies use current occupational status: retired Travel in the last 8 weeks: None adopted: No caregiver/support person: No foster care: No household members: friend(s) housing: apartment lives independently: Yes marital status: single number of children: 3 number of grandchildren: 7 service: Yes (discharged 1985) 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: No Review of Systems Review of Systems Review of systems:: pertinent systems reviewed and negative unless documented below Review of systems (narrative): Review of Systems: General: No recent weight changes, no fever, no sleep disturbances Respiratory: No cough, no shortness of air, no recurring pulmonary infections Cardiovascular/peripheral vascular: No chest pain, no palpitations, no edema, no shortness of breath Gastrointestinal: No new onset incontinence, normal bowel movements r
== END ==
PROVIDERS: Visit Provider Nurse Practitioner Family
DX: M50.10 Cervical disc disorder with radiculopathy, unspecified cervical region (principal); M25.511 Pain in right shoulder; M25.512 Pain in left shoulder; M79.601 Pain in right arm; M79.602 Pain in left arm; G89.4 Chronic pain syndrome; Z98.1 Arthrodesis status
CPT/HCPCS: 99202; G0463

== ENCOUNTER → 2022-12-20 08:05 | Outpatient (CLI) | payer OTHER, SELFPAY ==
--- NOTE | 2022-12-20 08:10 | XR_ITS ---
FINAL REPORT CLINICAL HISTORY: RT SHOULDER PAIN COMPARISON: 10/17/2022 FINDINGS: Right shoulder Three views were obtained. There is no acute fracture or dislocation. There are moderate hypertrophic changes of the AC joint. Surgical clip is seen adjacent to the distal clavicle. Glenohumeral joint is intact. No soft tissue abnormality is identified. IMPRESSION: Moderate changes of osteoarthritis. Reviewed, Interpreted and Dictated by Cristofer Angeles MD Transcribed by Mirella Bowens Authenticated and [facility]
--- NOTE | 2022-12-20 08:10 | XR_ITS ---
FINAL REPORT CLINICAL HISTORY: LT SHOULDER PAIN FINDINGS: Left shoulder Three views were obtained. There is no acute fracture or dislocation. There are mild hypertrophic changes of the AC joint. There is fragmentation of the superior acromion. There is mild narrowing of the glenohumeral joint. No soft tissue abnormality is identified. IMPRESSION: Hypertrophic changes of the AC joint with fragmentation of the superior acromion. Reviewed, Interpreted and Dictated by Cristofer Angeles MD Transcribed by Mirella Bowens Authenticated and [facility]
== END ==
PROVIDERS: PCP Family Medicine; Visit Provider Nurse Practitioner Family
DX: M54.2 Cervicalgia (principal); M25.512 Pain in left shoulder; M25.511 Pain in right shoulder
CPT/HCPCS: 73030

== ENCOUNTER → 2022-12-27 13:26 | Outpatient (CLI) | payer OTHER, SELFPAY ==
--- NOTE | 2022-12-27 13:32 | MR_ITS ---
FINAL REPORT TECHNIQUE: Multiplanar and multisequence imaging of the cervical spine was obtained. CLINICAL HISTORY: Neck pain with radiculopathy. HX NECK SURGERY 10 YEARS AGO. Bilateral neck pain. COMPARISON: none FINDINGS: There is straightening of the cervical lordosis. There are changes of anterior fusion of C7-T1. There is abnormal signal intensity within the spinal cord at the level of C7 favored to be old and possibly related to prior ischemia or injury. Bone marrow signal intensity is normal. Paraspinal soft tissues are within normal limits. C2/3: There is no focal disc herniation, central stenosis or neural foraminal narrowing. C3/4: Annular disc bulge with degenerative endplate changes. Superimposed right paracentral protrusion. Mild central stenosis. Moderate right and mild left foraminal narrowing. C4/5: Annular disc bulge with degenerative endplate changes and facet osteoarthropathy. No central stenosis. Severe right and moderate left foraminal narrowing. C5/6: Annular disc bulge with degenerative endplate changes and facet osteoarthropathy. Mild central stenosis. Severe bilateral foraminal narrowing. C6/7: Annular disc bulge with degenerative endplate changes asymmetric to the right. Mild to moderate central stenosis with severe bilateral foraminal narrowing. C7/T1: Fused. No central stenosis. Mild bilateral foraminal narrowing. IMPRESSION: Postoperative changes from anterior fusion C7-T1. Degenerative disc disease with areas of central and foraminal stenosis as detailed above. Abnormal signal intensity within central cord at C7 favored to be chronic and possibly related to old trauma or ischemia.. Reviewed, Interpreted and Dictated by Monica Patel MD Transcribed by Sharona Fleming Authenticated and [facility]
== END ==
PROVIDERS: PCP Family Medicine; Visit Provider Nurse Practitioner Family
DX: M54.2 Cervicalgia (principal)
CPT/HCPCS: 72141; 76376

== ENCOUNTER → 2023-01-03 10:20 | Outpatient (POV) | payer OTHER, SELFPAY ==
--- NOTE | 2023-01-03 10:36 | EXP.PAIN.SOA ---
[facility] Pain Management SOAP Note Subjective:: Patient is a pleasant 62-year-old male who presents today for follow-up of MRI imaging of his cervical spine and bilateral shoulder x-rays. We are currently treating the patient for degenerative disc disease of cervical spine with cervical radiculopathy symptoms, bilateral shoulder pain, neck pain, bilateral arm pain, status post cervical fusion, chronic pain. Today he rates his pain an 8 out of 10. Patient denies any new trauma or injury. Patient denies any change location or type of pain he experiences. Patient states he continues to have pain in his neck and bilateral shoulders and describes it as a aching, throbbing sensation that is worse with increased activity. 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 Patient has a history of shoulder surgery in the past including rotator cuff repair. Patient does currently use Tylenol along with heat and ice with minimal improvement. Patient was previously taking ibuprofen however he had a GI bleed and had to stop this medication. Patient states his primary care doctor is ordering MRI of his bilateral shoulders. Patient states he is scheduled for a stress test and colonoscopy in the future. Patient is interested in seeing a neurosurgeon for possible surgical intervention. Patient states his previous neck surgery did provide significant relief and he would like to weigh his options. Patient had his previous neurosurgery in [place]. Patient is not currently on any scheduled medications. His Kalpesh is [phone]. Its been reviewed and appropriate. Review of Systems: General: No recent weight changes, no fever, no sleep disturbances Respiratory: No cough, no shortness of air, no recurring pulmonary infections Cardiovascular/peripheral vascular: No chest pain, no palpitations, no edema, no shortness of breath Gastrointestinal: No new onset incontinence, normal bowel movements reported Genitourinary: No new onset incontinence Musculoskeletal: Neck pain, shoulder pain, arm pain Psychiatric: [Normal mood/affect] Neurological: [Denies weakness in extremities], [denies balance issues] Objective:: Physical Exam: General: Alert and oriented x3, no acute distress, pleasant and cooperative Lungs: Respirations even and unlabored, symmetrical chest expansion Eyes: PERRL Musculoskeletal: Flexion and extension of cervical [spine] somewhat guarded secondary to pain, [antalgic gait noted] Neurological: Speech clear, no gross sensory deficit Ordering Physician: Chow,Anais [employer] Date of Service: 12/20/22 Procedure(s): XR shoulder LT min 2V Accession Number(s): [id number] cc: Cristofer Angeles MD; Anitra Mathews DO~ FINAL REPORT CLINICAL HISTORY: LT SHOULDER PAIN FINDINGS: Left shoulder? Three views were obtained.? There is no acute fracture or dislocation.? There are mild hypertrophic changes of the AC joint.? There is fragmentation of the superior acromion. There is mild narrowing of the glenohumeral joint.? No soft tissue abnormality is identified. IMPRESSION: Hypertrophic changes of the AC joint with fragmentation of the superior acromion. Reviewed, Interpreted and Dictated by Cristofer Angeles MD Transcribed by Mirella Bowens Authenticated and [facility] FINDINGS: Right shoulder? Three views were obtained.? There is no acute fracture or dislocation.? There are moderate hypertrophic changes of the AC joint.? Surgical clip is seen adjacent to the distal clavicle.? Glenohumeral joint is intact.? No soft tissue abnormality is identified. IMPRESSION: Moderate changes of osteoarthritis. Reviewed, Interpreted and Dictated by Cristofer Angeles MD Transcribed by Mirella Bowens Authenticated and [facility] FINAL REPORT
[2023-01-03 12:13] VITALS: BP 118/68; PULSE 84; RESP 18; O2SAT 97; BMI 33.9
== END ==
PROVIDERS: Visit Provider Nurse Practitioner Family
DX: M50.10 Cervical disc disorder with radiculopathy, unspecified cervical region (principal); M79.601 Pain in right arm; M79.602 Pain in left arm; M25.511 Pain in right shoulder; M25.512 Pain in left shoulder; G89.29 Other chronic pain; Z98.1 Arthrodesis status; F17.210 Nicotine dependence, cigarettes, uncomplicated; Z79.899 Other long term (current) drug therapy
CPT/HCPCS: 99212; G0463

== ENCOUNTER → 2023-02-09 11:00 | Outpatient (CLI) | payer OTHER, SELFPAY ==
[2023-02-13 20:16] LABS: Occult Blood,Stool Negative (Negative)
== END ==
PROVIDERS: PCP Family Medicine; Visit Provider Family Medicine
DX: R19.5 Other fecal abnormalities (principal)
CPT/HCPCS: 82272; G0328

== ENCOUNTER → 2023-02-09 14:01 | Outpatient (CLI) | payer OTHER, SELFPAY ==
[2023-02-13 20:15] LABS: Occult Blood,Stool Negative (Negative)
== END ==
PROVIDERS: PCP Family Medicine; Visit Provider Family Medicine
DX: R19.5 Other fecal abnormalities (principal)
CPT/HCPCS: 82272; G0328

== ENCOUNTER → 2023-02-13 09:55 | Outpatient (CLI) | payer OTHER, SELFPAY ==
[2023-02-13 10:33] LABS: Basophils # 0.1 K/mm3 (0-0.2); Basophils % 1.2 % (0.1-2.0); Eosinophils # 0.7 K/mm3 (0.0-0.4); Eosinophils % 7.9 % (0.1-12.0); Hematocrit 44.1 % (42.0-52.0); Hemoglobin 14.3 g/dL (14.1-18.0); Lymphocytes % 34.5 % (10-50); Mean Corpuscular HGB Conc 32.3 g/dL (31.8-35.4); Mean Corpuscular Hemoglobin 30.6 pg (27.0-31.2); Mean Corpuscular Volume 94.7 fl (80-94); Mean Platelet Volume 8.3 fl (7.4-10.4); Monocytes # 0.7 K/mm3 (0.1-1.0); Monocytes % 8.5 % (1.7-9.3); Neutrophils # 4.1 K/mm3 (1.8-7.8); Neutrophils % 47.9 % (37.0-80.0); Platelet Count 272 K/mm3 (142-424); Red Blood Count 4.65 M/mm3 (4.60-6.20); Red Cell Distribution Width 14.1 % (11.5-17.5); White Blood Count 8.7 K/mm3 (4.8-10.8)
[2023-02-13 11:31] LABS: Chloride 106 mmol/L (98-107); Potassium 4.2 mmoL/L (3.5-5.1); Sodium 138 mmol/L (136-145)
[2023-02-13 11:34] LABS: Alanine Aminotransferase 26 U/L (12-78); Albumin Level 4.2 g/dl (3.5-5.0); Albumin/Globulin Ratio 1.6 (1.1-1.8); Alkaline Phosphatase 74 U/L (38-126); Anion Gap 12.2 mEq/L (5-15); Aspartate Amino Transferase 27 U/L (17-59); Bilirubin,Total 0.4 mg/dl (0.2-1.3); Blood Urea Nitrogen 18 mg/dl (9-20); Calcium 8.9 mg/dl (8.4-10.2); Carbon Dioxide 24 mmol/L (22.0-30.0); Estimated Glomerular Filt Rate 114 ml/min (>60); GFR (African American) 137 ML/MIN (>60); Globulin 2.6 g/dL (1.3-3.2); Glucose 94 mg/dl (74-100); Total Protein,Serum 6.8 g/dl (6.3-8.2)
[2023-02-13 20:15] LABS: Occult Blood,Stool Negative (Negative)
== END ==
PROVIDERS: PCP Family Medicine; Visit Provider Family Medicine
DX: I10 Essential (primary) hypertension (principal); R53.83 Other fatigue; R79.89 Other specified abnormal findings of blood chemistry; R19.5 Other fecal abnormalities
CPT/HCPCS: 36415; 80053; 82272; 84443; 85025; G0328

== ENCOUNTER → 2023-02-25 09:28 | Outpatient (CLI) | payer OTHER, SELFPAY ==
--- NOTE | 2023-02-25 09:33 | CT_ITS ---
FINAL REPORT CLINICAL HISTORY: NECK PAIN FINDINGS: CT CERVICAL SPINE Axial CT images were performed through the cervical spine. Coronal and sagittal reformats were submitted and reviewed. This study was performed with techniques to keep radiation doses as low as reasonably achievable (ALARA). Individualized dose reduction techniques using automated exposure control or adjustment of mA and/or kV according to the patient's size were employed. FINDINGS: There is no acute fracture or subluxation. There has been fusion of C7-T1. The vertebral alignment is normal. The prevertebral soft tissues are unremarkable. There is moderate multilevel degenerative change with osteophytes. The facets are normally aligned. Limited images of the lung apices are unremarkable. C2-C3: An annular bulge is present. C3-C4: There is an annular bulge with uncovertebral osteophytes. There is mild bilateral neural foraminal narrowing. C4-C5: There is a disc osteophyte complex. There is severe right and moderate left neural foraminal narrowing. C5-C6: There is a disc osteophyte complex. There is moderate right and severe left neural foraminal narrowing. C6-C7: There is a disc osteophyte complex with severe bilateral neural foraminal narrowing. There is mild central canal stenosis with an AP thecal sac diameter of 8 mm. C7-T1: There is fusion at this level. There is mild right and moderate left neural foraminal narrowing. IMPRESSION: Degenerative disc disease with multilevel neural foraminal narrowing and mild central canal stenosis at C6-C7. Fusion of C7-T1. Reviewed, Interpreted and Dictated by Augie Baumann III, MD Transcribed by Chi Martinez Authenticated and [facility]
== END ==
PROVIDERS: PCP Family Medicine; Visit Provider Orthopaedic Surgery
DX: M54.2 Cervicalgia (principal)
CPT/HCPCS: 72125

== ENCOUNTER 2023-03-26 09:04 | Emergency (ER) | payer OTHER, SELFPAY ==
--- NOTE | 2023-03-26 09:27 | EXP.UTC ---
Discharge Plan Disposition Patient Disposition: Home, Self-Care Condition: Good Prescriptions Prescriptions: New azithromycin [Zithromax] 250 mg tablet 250 mg PO UD DOSE PK Qty: 6 0RF Rx Instructions: Take two (2) tablets today, then one (1) tablet days #2 thru #5 benzonatate [benzonatate] 100 mg capsule 100 mg PO TIDP PRN (Reason: Cough) Qty: 30 0RF methylprednisolone 4 mg Tablets,Dose Pack 4 mg PO DIRECTED Qty: 21 0RF No Action amlodipine 10 mg tablet 10 mg PO DAILY Qty: 30 2RF clobetasol 0.05 % solution 1 applic topical DAILY Qty: 50 1RF levocetirizine [Xyzal] 5 mg tablet 5 mg PO DAILY Qty: 30 2RF lisinopril 40 mg tablet 40 mg PO DAILY Qty: 30 2RF Referrals Follow up/Referrals: Anitra Mathews DO [Primary Care Provider] - See instructions Activity Restrictions/Add. Instructions Additional Instructions/Restrictions: Drink plenty of fluids. Take tylenol or ibuprofen for pain or fever. Take the medications as directed. Follow up with your regular doctor. GO TO THE ER FOR ANY WORSENING SYMPTOMS Clinical Impressions Clinical Impression: Sinusitis Instructions Patient Instructions: Sinusitis, DI for Sinusitis Discharge ED Provider: Frederic Toro [facility] General Stated complaint: Congestion, drainage, sore throat Time Seen by Provider: 03/26/23 09:26 History of Present Illness Provider Complaint: He c/o sinus congestion and sore throat for the past 1 week. Related Data Previous Rx's Medication Instructions Recorded amlodipine 10 mg tablet 10 mg PO DAILY #30 tabs 03/08/23 clobetasol 0.05 % scalp solution 1 applic topical DAILY #50 mL 03/08/23 levocetirizine 5 mg tablet (Xyzal) 5 mg PO DAILY #30 tabs 03/08/23 lisinopril 40 mg tablet 40 mg PO DAILY BLOOD PRESSURE #30 03/08/23 tabs azithromycin 250 mg tablet 250 mg PO UD DOSE PK #6 tabs 03/26/23 (Zithromax) benzonatate 100 mg capsule 100 mg PO TIDP PRN Cough #30 caps 03/26/23 methylprednisolone 4 mg tablets in 4 mg PO DIRECTED #21 tabs 03/26/23 a dose pack Allergies Allergy/AdvReac Type Severity Reaction Status Date / Time No Known Allergies Allergy Verified 03/26/23 09:36 [facility] Disclaimer: The information contained in this section may have been updated after the patient was seen, as this information can be updated by other users. 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 Amputation of finger tip Corneal abrasion Exposure to COVID-19 virus Hypertension Nerve damage Renal colic on right side Urethral colic due to calculus Surgical History History of knee surgery History of neck surgery History of shoulder surgery Hx of inguinal hernia repair Family History Other No significant family 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 Smoking Status: Current every day smoker tobacco type: cigarettes packs per day: 1 pack-years: 20 quit status: has quit before alcohol intake: never substance use type: denies use current occupational status: retired Travel in the last 8 weeks: None adopted: No caregiver/support person: No foster care: No household members: friend(s) housing: apartment lives independently: Yes marital status: single number of children: 3 number of grandchildren: 7 service: Yes (discharged 1985) 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: No ROS Obtained: Yes All systems reviewed & no additional complaints except as documented Constitutional Constitutional: Reports poor appetite Eyes Eyes: Reports system reviewed and no additional complaints, except as documented ENT Ears, Nose, Mouth, and Throat: Reports as per HPI Cardiovascular Cardiovascular: Reports system reviewed and no additional complaints, except as documented and Denies curt
[2023-03-26 09:33] VITALS: BP 156/94; PULSE 84; RESP 16; TEMP 36.7; O2SAT 96; BMI 33.9
[2023-03-26 10:00] VITALS: BP 156/94; PULSE 84; RESP 16; TEMP 36.7
== END 2023-03-26 10:20 | disposition home or self-care (01) ==
PROVIDERS: Emergency Provider Nurse Practitioner Family; PCP Family Medicine
DX: J01.90 Acute sinusitis, unspecified (principal); R07.0 Pain in throat; F17.210 Nicotine dependence, cigarettes, uncomplicated; I10 Essential (primary) hypertension
CPT/HCPCS: 99212; 99214; G0463

== ENCOUNTER 2023-08-23 10:22 | Emergency (ER) | payer MEDICARE, OTHER, SELFPAY ==
--- OUTSIDE RECORDS SUMMARY | 2023-08-23 10:26 | XMS_ITS | Clinical Summary ---
Author Name Unknown Address [address] [place] [address] Phone Organization [facility] Address [address] [place] [address] Phone Care Team Providers Care [employer] Agent Name Role Phone Geraldo CORRALES, Anitra Unavailable Unavailable Sarah CORRALES, Rosa M Unavailable [phone] Reason for Visit and Chief Complaint The Chief Complaint is: Cervical Pain Problems Includes: Problems addressed during this encounter and other active Problems Current Visit Onset Date Resolved Date Provider Conditio n Status Neck Pain 01/23/2023 Rosa M Smith MD Active Plan of Treatment Pending Tests Order Diagnosis Results Due Ordering P rovider Therapy - Physical Therapy Cervical 01/23/23 Rosa M Smith MD Instructions to patient Intervention and counseling on cessation of tobacco use Last Documented On 3 9:53AM ; [facility] Lose weight Last Documented On 3 9:05AM ; [facility] Assessments Includes: Assessments from this encounter Findings This is 62-year-old man status post C7-T1 anterior cervical discectomy and fusion 10 years ago at an outside hospital now with a predominant complaint of neck pain as well as bilateral hand numbness - Last Documented On 01/23/2023 10:27AM ; [facility] It was interesting meeting Mr. Nelson in the office today. I am going to send him for physical therapy in the neck. He is also going to get a CT scan of the neck as well as a bilateral upper extremity EMG and nerve conduction study. I told him that we really would not even consider revision neck surgery unless he was able to quit smoking since he is basically smoking what sounds like 2 to 3 packs/day right now. We will start some nonoperative treatments and hope we can get his pain under control. I am curious to see what his CT scan looks like to assess the fusion status of C7 1 and also assess the bony components of any compressive pathology particularly at C6- 7 and C5-6. He can follow-up with me after he gets the CT and EMG and have started some physical therapy. - Last Documented On 01/23/2023 10:27AM ; [facility] Instructions Includes: Instructions from this encounter Instructions to patient Intervention and counseling on cessation of tobacco use Last Documented On 3 9:53AM ; [facility] Lose weight Last Documented On 3 9:05AM ; [facility] Medical Equipment - Implanted Devices Includes: Current Devices No Medical Equipment Recorded Medications Includes: Medications discussed during this encounter and other current Medications New / Renewed during this visit Rosa M Smith MD on 01/23/2023 Methocarbamol 750 MG Oral Tablet Provider: Rosa M lee MD 30 day supply: 90 tablet, 0 refills Diagnosis: Take 1 tablet PO up to three times a day, PRN [facility]acy: [phone], [address] - Current Medications (continue as prescribed) amLODIPine Besylate 5 MG Oral Tablet 01/03/2023 Prov ider: Diagnosis: Lisinopril 40 MG Oral Tablet 01/03/2023 Provider: Diagnosis: Loratadine 10 MG Oral Tablet 01/03/2023 Provider: Diagnosis: Pantoprazole Sodium 40 MG Oral Tablet Delayed Release 11/01/2022 Provider: Diagnosis: Diclofenac Sodium 1% External Gel 10/27/2022 Provide r: Diagnosis: Medications Administered Includes: Administered Medications from this encounter No Administered Medications Recorded Vital Signs Includes: Vital Signs from this encounter Vital Name 01/23/2023 09:19A Height (in) 71 Weight (lb) 227 Body Mass Index 31.7 Body Surface Area 2.2 Note: bb Last Documented On: 01/23/2023 9:19AM ; [facility] Results Includes: Results discussed during this encounter No Results Recorded For Specified Dates History of Present Illness Includes: History of Present Illness from this encounter HPI Shelly Nelson is a 62 year old male. - Symptoms Better: Nothing Symptoms worse Laying a certain way. - Allergy list reviewed - Problem list reviewed - Medication list reviewed - Previous history of new onset pain Injury is not work related or an automotive accident - Patient pain level from 1-10: 9 - Yes, previous treatment. this is a 62-year-old male here for evaluation predominantly of neck pain. It is kind of hard to keep straight where his issues are but he notes pain in the back of his neck and his bilateral shoulder blades but also describes bilateral hand numbness. Asking multiple times, it is pretty difficult to get a sense of where the pain really is. He traces pain in the back of his neck up to the base of his skull and down his bilateral arms and around his shoulder blades. He notes that both his hands go numb from time to time. Says that he had surgery in his neck 10 years ago in [facility] but does not remember the surgeon who did it. He said it did help him at the time. He denies any issues with bowel or bladder. He denies any difficulty with fine motor tasks in the hands. He denies any difficulty with his balance. He is on permanent disability. He is a current 1-1/2 to 2-1/2 pack/day smoker. He denies other medical issues other than hypertension. Social History Description Last Updated Tobacco use 01/23/2023 Procedures and Surgical History Includes: Procedures from this encounter Procedures Code Diagnosis Performing Provider Service L ocation Service Date intervention and counseling on cessation of tobacco use 4000F Surgical History Last Updated Past Surgical History: C7-T1 ACDF 2022 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 Includes: 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 addressed during this encounter Description Last Updated History of Heartburn / Acid Reflux 01/23 Family History Includes: Family History addressed during this encounter Description Last Updated No significant family history 01/23/2023 Review of Systems Includes: Review of Systems from this encounter Systemic: Not feeling tired, no recent weight loss, and no recent weight gain. Head: Headache. No sinus pain. Eyes: No vision problems and no Cataracts. Glasses/Contacts. No Glaucoma. Otolaryngeal: No hearing loss and no tinnitus. Cardiovascular: No chest pain or discomfort and no palpitations. Hypertension. No High Cholesterol. Pulmonary: No daytime asthma symptoms. Chronic cough and wheezing. Gastrointestinal: No heartburn and no abdominal pain. No Indigestion, no Acid Reflux, no Peptic Ulcer, no GI Stomach Bleed, and no Ulcers. Endocrine: No hot flashes, no muscle weakness, no Diabetes, no Hypothyroid, and no Hyperthyroid. Hematologic: No easy bleeding, no tendency for easy bruising, and no Anemia. Musculoskeletal: Arthritis and lower back pain. No soft tissue swelling. Pain localized to one or more joints. Neurological: No dizziness and no convulsions. Numbness. Psychological: No anxiety, no emotional lability, no depression, and no insomnia. Not crying for no reason. Skin: No dry skin. No Ulcers, no Scars, and no rash. Allergic and Immunologic: No complaint of seasonal allergic reaction. Mental Status Includes: Mental Status from this encounter Description No anxiety Functional Status Includes: Functional Status from this encounter No Functional Status Recorded Physical Exam Includes: Physical Exam from this encounter Immunizations Includes: Immunizations addressed during this encounter Vaccine Dose # Date Site Reaction(s) Status Source Influenza 1 01/23/2023 Complete (Refused - Patient objection) [facility] Allergies Includes: Active Allergies No Known Allergies Encounters Encounter Provider Location Date Check-In Time Check-Out Time Diagnosis Physician Specified Rosa M lee MD [facility] 01/24/20 23 9:08AM 9:33AM Insurance Includes: Active Insurance Policies Plan Name Member ID Group # Subscriber Relationship Effect gaby Dates 1 - [facility] [id number] Shelly Nelson Self Clinical Notes Includes: Clinical Notes from this encounter * Progress note Date Encounter Last Documented by 01/23/2023 Physician Specified Last karla chong on 01/23/2023; 10:27 AM, Rosa M Smith MD; [facility], [facility] Active Problems & Conditions - Neck Pain Chief Complaint The Chief Complaint is: Cervical Pain. Referred Here Referred by PCP. History of Present Illness Shelly Nelson is a 62 year old male. - Symptoms Better: Nothing Symptoms worse Laying a certain way. - Allergy list reviewed - Problem list reviewed - Medication list reviewed - Previous history of new onset pain Injury is not work related or an automotive accident - Patient pain level from 1-10: 9 - Yes, previous treatment. this is a 62-year-old male here for evaluation predominantly of neck pain. It is kind of hard to keep straight where his issues are but he notes pain in the back of his neck and his bilateral shoulder blades but also describes bilateral hand numbness. Asking multiple times, it is pretty difficult to get a sense of where the pain really is. He traces pain in the back of his neck up to the base of his skull and down his bilateral arms and around his shoulder blades. He notes that both his hands go numb from time to time. Says that he had surgery in his neck 10 years ago in [facility] but does not remember the surgeon who did it. He said it did help him at the time. He denies any issues with bowel or bladder. He denies any difficulty with fine motor tasks in the hands. He denies any difficulty with his balance. He is on permanent disability. He is a current 1-1/2 to 2-1/2 pack/day smoker. He denies other medical issues other than hypertension. Current Medication - amLODIPine Besylate 5 MG Oral Tablet 30 days, 0 refills - Diclofenac Sodium 1% External Gel 30 days, 0 refills - Lisinopril 40 MG Oral Tablet 30 days, 0 refills - Loratadine 10 MG Oral Tablet 30 days, 0 refills - Pantoprazole Sodium 40 MG Oral Tablet Delayed Release 90 days, 0 refills Past Medical/Surgical History Diagnoses: Heartburn / Acid Reflux Hypertension Surgical: - Past Surgical History: C7-T1 ACDF Social History Yes, current smoker. 2.5 packs per day. Current diet: No recent change in diet. Caffeine use: Caffeine use. Tobacco use: Tobacco use. Alcohol: Not using alcohol. Drug Use: Not using drugs. Habits: Not exercising regularly. Allergies - No Known Allergies Family History No significant family history Review Of Systems Systemic: Not feeling tired, no recent weight loss, and no recent weight gain. Head: Headache. No sinus pain. Eyes: No vision problems and no Cataracts. Glasses/Contacts. No Glaucoma. Otolaryngeal: No hearing loss and no tinnitus. Cardiovascular: No chest pain or discomfort and no palpitations. Hypertension. No High Cholesterol. Pulmonary: No daytime asthma symptoms. Chronic cough and wheezing. Gastrointestinal: No heartburn and no abdominal pain. No Indigestion, no Acid Reflux, no Peptic Ulcer, no GI Stomach Bleed, and no Ulcers. Endocrine: No hot flashes, no muscle weakness, no Diabetes, no Hypothyroid, and no Hyperthyroid. Hematologic: No easy bleeding, no tendency for easy bruising, and no Anemia. Musculoskeletal: Arthritis and lower back pain. No soft tissue swelling. Pain localized to one or more joints. Neurological: No dizziness and no convulsions. Numbness. Psychological: No anxiety, no emotional lability, no depression, and no insomnia. Not crying for no reason. Skin: No dry skin. No Ulcers, no Scars, and no rash. Allergic and Immunologic: No complaint of seasonal allergic reaction. Physical Findings - Vitals taken 01/23/2023 09:19 am bb Height 71 in Weight 227 lbs Body Mass Index 31.7 kg/m2 Body Surface Area 2.2 m2 Standard Measurements: - Patient was overweight. General: Alert and Oriented ? 3 Focused Musculoskeletal Exam of the Spine: No focal tenderness in the cervical, thoracic, or lumbar spine Motor EF WE T FF HI Right 5/5 5/5 5/5 5/5 5/5 Left 5/5 5/5 5/5 5/5 5/5 Sensation C5 C6 C7 C8 T1 Right 2 2 2 2 2 Left 2 2 2 2 2 Biceps reflex is 2+ bilaterally Brachioradialis reflex is 2+ bilaterally Triceps reflex is 2+ bilaterally Negative Ramirez's bilaterally Patient is able to ambulate in the room without assistive device Symmetric, palpable radial pulses bilaterally No ankle clonus Symmetric, palpable posterior tibialis pulse bilaterally Tests X-ray cervical spine AP, lateral, odontoid views of the cervical spine from an outside office were reviewed today There is evidence of C7-T1 anterior cervical discectomy and fusion with what appears to be a solid fusion at least on x-ray and no loosening of the hardware at this level Otherwise, there are diffuse cervical spondylotic changes MRI cervical spine There is redemonstration of diffuse cervical spondylosis. There is anterior cervical hardware from C7-T1. There is some abnormal T2 signal behind right about the level of C7 which I suspect was related to his prior surgery At C2-3, I really do not see any compressive pathology At C3-4, there is slight right worse than left foraminal narrowing At C4-5, there is severe right and more mild to moderate left foraminal narrowing At C5-6, there is an annular disc bulge and a disc osteophyte complex causing some mild central narrowing and severe bilateral foraminal stenosis At C6-7, there is fairly advanced degeneration with a disc osteophyte complex more on the right side causing some moderate central canal narrowing and severe bilateral foraminal stenosis User Defined 5 This is 62-year-old man status post C7-T1 anterior cervical discectomy and fusion 10 years ago at an outside hospital now with a predominant complaint of neck pain as well as bilateral hand numbness It was interesting meeting Mr. Nelson in the office today. I am going to send him for physical therapy in the neck. He is also going to get a CT scan of the neck as well as a bilateral upper extremity EMG and nerve conduction study. I told him that we really would not even consider revision neck surgery unless he was able to quit smoking since he is basically smoking what sounds like 2 to 3 packs/day right now. We will start some nonoperative treatments and hope we can get his pain under control. I am curious to see what his CT scan looks like to assess the fusion status of C7 1 and also assess the bony components of any compressive pathology particularly at C6- 7 and C5-6. He can follow-up with me after he gets the CT and EMG and have started some physical therapy. Previous Tests Imaging: X-Ray: An X-ray was performed 12/03/2022 Nadia @ [facility]. MRI Scan: An MRI was performed 12/27/2022 Nadia @ [facility]. Therapy - Intervention and counseling on cessation of tobacco use. Vaccinations - Influenza Dose #1 Status: Refused Patient Objection Date: 01/23/2023 - PCV (Pneumovax 23) Dose #1 Status: Contraindicated Date: 01/23/2023 Counseling/Education - Lose weight Plan StartCited - Other Procedure/Tests: EMG, Nerve Conduction Study Instructions: BUE Radiology/CT Scan: Cervical Therapy/Physical Therapy: Cervical Instructions: See PT order attached Methocarbamol 750 MG tablet Take 1 tablet PO up to three times a day, PRN, 30 days, 0 refills EndCited Practice Management Use of tobacco assessment performed. Care Team - Anitra Chow MD Notes This dictation was done with voice recognition software and may contain errors and omissions.
--- OUTSIDE RECORDS SUMMARY | 2023-08-23 10:26 | XMS_ITS ---
Care Plan - [facility], [facility] Created on: August 23, 2023 Shelly Nelson : 1960 Sex: Male Author Name Unknown Address [address] [place] [address] Phone Organization [facility] Address [address] [place] [address] Phone Care Team Providers Care Evening Sitter Name Role Phone Geraldo CORRALES, Anitra Unavailable Unavailable Sarah CORRALES, Rosa M Unavailable [phone]
--- OUTSIDE RECORDS SUMMARY | 2023-08-23 10:26 | XMS_ITS ---
Author Name Unknown Address [address] [place] [address] Phone Organization [facility] Address [address] [place] [address] Phone Care Team Providers Care Child And Adolescent Psychologist Name Role Phone Geraldo CORRALES, Anitra Unavailable Unavailable Sarah CORRALES, Rosa M Unavailable [phone] Reason for Referral Date Encounter Description Provider Reason for Referral 03/18/23 Follow Up Rosa M Smith MD Re ferral To Physician Problems Includes: Active, inactive, and resolved Problems All Visits Onset Date Resolved Date Provider Condition S tatus Neck Pain 01/23/2023 Rosa M Smith MD Active Plan of Treatment Pending Tests Order Diagnosis Results Due Ordering P rovider Procedure/Tests EMG 02/06/23 Rosa M Ellsworth MD Referrals To Diagnosis Consult with Orthopedic Radiculo sony, cervical region Note: Right Shoulder Dr. Noel Madsen Instructions to patient Intervention and counseling on cessation of tobacco use Last Documented On 3 2:07PM ; [facility] Lose weight Last Documented On 3 1:46PM ; [facility] Intervention and counseling on cessation of tobacco use Last Documented On 3 9:53AM ; [facility] Lose weight Last Documented On 3 9:05AM ; [facility] Assessments Includes: Assessments for all patient encounters No Assessments Recorded Instructions Includes: Instructions for all patient encounters Instructions to patient Intervention and counseling on cessation of tobacco use Last Documented On 3 2:07PM ; [facility] Lose weight Last Documented On 3 1:46PM ; [facility] Intervention and counseling on cessation of tobacco use Last Documented On 3 9:53AM ; [facility] Lose weight Last Documented On 3 9:05AM ; [facility] Medical Equipment - Implanted Devices Includes: Current and historical Devices No Medical Equipment Recorded Medications Includes: Current and historical Medications Current Medications (continue as prescribed) amLODIPine Besylate 5 MG Oral Tablet 01/03/2023 Prov ider: Diagnosis: Lisinopril 40 MG Oral Tablet 01/03/2023 Provider: Diagnosis: Loratadine 10 MG Oral Tablet 01/03/2023 Provider: Diagnosis: Pantoprazole Sodium 40 MG Oral Tablet Delayed Release 11/01/2022 Provider: Diagnosis: Diclofenac Sodium 1% External Gel 10/27/2022 Provide r: Diagnosis: Past Medications on file Methocarbamol 750 MG Oral Tablet 01/23/2023 - 02/22/2023 Provider: Rosa M Shipley MD Diagnosis: Take 1 tablet PO up to three times a day, PRN Medications Administered Includes: Administered Medications in patient's chart No Administered Medications Recorded Vital Signs Includes: Vital Signs from 08/23/2022 through 08/23/2023 Vital Name 03/18/2023 02:07P 01/23/2023 09: 19A Height (in) 71 71 Weight (lb) 243 227 Body Mass Index 33.9 31.7 Body Surface Area 2.3 2.2 Note: bb bb Last Documented On: 03/18/2023 2:07PM ; [facility] 01/23/2023 9:19AM ; [facility] Results Includes: Results from 08/23/2022 through 08/23/2023 No Results Recorded For Specified Dates History of Present Illness History of Present Illness not supported for this document type No History of Present Illness Recorded Social History Description Last Updated Tobacco use 01/23/2023 Procedures and Surgical History Surgical History Last Updated Past Surgical History: C7-T1 ACDF 2022 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 Includes: 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 in patient's chart Description Last Updated History of Heartburn / Acid Reflux 01/23 Family History Includes: Family History in patient's chart Description Last Updated No significant family history 01/23/2023 Review of Systems Review of Systems not supported for this document type No Review of Systems Recorded Mental Status Description No anxiety Functional Status No Functional Status Recorded Physical Exam Physical Exam not supported for this document type No Physical Exam Recorded Immunizations Includes: Immunizations in patient's chart Vaccine Dose # Date Site Reaction(s) Status Source Influenza 1 01/23/2023 Complete (Refused - Patient objection) [facility] Allergies Includes: Active, inactive, and resolved Allergies No Known Allergies Encounters Includes: Encounters from 08/23/2022 through 08/23/2023 Encounter Provider Location Date Check-In Time Check-Out Time Diagnosis Follow Up Rosa M lee MD [facility] 03/18/20 23 1:44PM 3:22PM Physician Specified Rosa M lee MD [facility] 01/24/20 23 9:08AM 9:33AM Insurance Includes: Active Insurance Policies Plan Name Member ID Group # Subscriber Relationship Effect gaby Dates 1 - [facility] [id number] Shelly Nelson Self Clinical Notes Includes: Signed Clinical Notes starting from 10/25/2022 * Progress note Date Encounter Last Documented by 03/18/2023 Follow Up Last documented on 03/19/2023; 5:04 PM, Rosa M Blum MD; [facility], [facility] Active Problems & Conditions - Neck Pain Chief Complaint The Chief Complaint is: Cervical Pain. Referred Here Referred by PCP. History of Present Illness Shelly Nelson is a 62 year old male. - Allergy list reviewed - Problem list reviewed - Medication list reviewed - Previous history of new onset pain Injury is not work related or an automotive accident - Patient pain level from 1-10: 8 - No previous treatment. This is a 62-year-old man following up with me after a CT scan of his cervical spine. He has not started physical therapy and he has not completed his EMG. He is complaining mostly today of right shoulder pain. He says he struggles with any overhead activities. It is difficult for him to raise his right arm relative to his left. He does have pain in his left shoulder as well though is not as severe as the pain on the right. He also reports pain in his neck and pain that gets worse if he turns his head from side to side. He denies any issues with fine motor control in the hands. Denies any issues with his balance. 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 Current Medication - amLODIPine Besylate 5 MG [...] Immunologic: No complaint of seasonal allergic reaction. Reviewed on 03-18-2023 Physical Findings - Vitals taken 03/18/2023 02:07 pm bb Height 71 in Weight 243 lbs Body Mass Index 33.9 kg/m2 Body Surface Area 2.3 m2 Standard Measurements: - Patient was overweight. General: Alert and Oriented ? 3 Focused Musculoskeletal Exam of the Spine: No focal tenderness in the cervical, thoracic, or lumbar spine Motor EF WE T FF HI Right 4/5 5/5 5/5 5/5 5/5 Left 4/5 5/5 5/5 5/5 5/5 Sensation C5 C6 [...] Symmetric, palpable posterior tibialis pulse bilaterally Tests CT cervical spine There is a solid fusion at C7-T1 At C2-3, I do not see much compressive pathology At C3-4, there is some mild bilateral foraminal narrowing At C4-5, there is severe right and moderate left foraminal narrowing At C5-6, there is moderate right but severe left foraminal stenosis At C6-7, there is severe bilateral foraminal stenosis User Defined 5 This is a 62-year-old man with cervical radiculopathy in addition to likely internal derangement of the right shoulder and probably left shoulder It is always interesting seeing Almas liu in the office. I told him I really do want him to get a bilateral upper extremity EMG and nerve conduction study. I also really want him to start in physical therapy and quit smoking. Eventually, when he does those things, we can discuss further intervention in his neck if necessary or clinically indicated. For the time being, he told me he is going to have an MRI of his right shoulder I told him he could follow-up with Dr. Madsen after that. Previous Tests Laboratory Studies: Neuro-Electrical Functions: EMG 03/14/2023 [facility] @ [facility]. Imaging: X-Ray: An X-ray was performed 12/03/2022 [facility] @ [facility]. CT Scan: CT scan 02/25/2023 [facility] @ [facility]. MRI Scan: An MRI was performed 12/27/2022 [facility] @ [facility]. Therapy - Clinical consultation report. - Intervention and counseling on cessation of tobacco use. - Referral to physician. Counseling/Education - Lose weight Plan StartCited - Radiculopathy, cervical region Procedure/Tests: EMG, Nerve Conduction Study Instructions: BUE Therapy/Physical Therapy: Cervical Instructions: See PT order attached Referral/Orthopedic: Consult with Orthopedic Instructions: Right Shoulder Dr. Luc Madsen [facility] Practice Management Use of tobacco assessment performed. Care Team - Anitra Chow MD Notes This dictation was done with voice recognition software and may contain errors and omissions. * Progress note Date Encounter Last Documented by 01/23/2023 Physician Specified Last documewander castillo on 01/23/2023; 10:27 AM, Rosa M Smith MD; [facility], [facility] Active Problems & Conditions - Neck Pain [...] in his neck 10 years ago in [facility] but does not remember the surgeon who [...] Imaging: X-Ray: An X-ray was performed 12/03/2022 [facility] @ [facility]. MRI Scan: [facility]. Therapy - Intervention and counseling on cessation [...]
--- OUTSIDE RECORDS SUMMARY | 2023-08-23 10:26 | XMS_ITS | Clinical Summary ---
Author Name Unknown Address [address] [place] [address] Phone Organization [facility] Address [address] [place] [address] Phone Care Team Providers Care Facility Maintenance Supervisor Name Role Phone Geraldo CORRALES, Anitra Unavailable Unavailable Sarah CORRALES, Rosa M Unavailable [phone] Reason for Referral Date Encounter Description Provider Reason for Referral 03/18/23 Follow Up Rosa M Smith MD Re ferral To Physician Reason for Visit and Chief Complaint The Chief Complaint is: Cervical Pain Problems Includes: Problems addressed during this encounter and other active Problems All Visits Onset Date Resolved Date [...] use Last Documented On 3 2:07PM ; [facility], [facility] Lose weight Last Documented On 3 1:46PM ; [facility], [facility] Assessments Includes: Assessments from this encounter Findings This is a 62-year-old man with cervical radiculopathy in addition to likely internal derangement of the right shoulder and probably left shoulder - Last Documented On 03/19/2023 5:04PM ; [facility], [facility] It is always interesting seeing Almas back in the office. I told him I [...] could follow-up with Dr. Madsen after that. - Last Documented On 03/19/2023 5:04PM ; [facility], [facility] Instructions Includes: Instructions from this encounter Instructions to patient Intervention and counseling on cessation of tobacco use Last Documented On 3 2:07PM ; [facility], [facility] Lose weight Last Documented On 3 1:46PM ; [facility] Medical Equipment - Implanted Devices Includes: Current Devices No Medical Equipment Recorded Medications Includes: Medications discussed during this encounter and other current Medications Current Medications (continue as prescribed) amLODIPine [...] day, PRN Medications Administered Includes: Administered Medications from this encounter No Administered Medications Recorded Vital Signs Includes: Vital Signs from this encounter Vital Name 03/18/2023 02:07P Height (in) 71 Weight (lb) 243 Body Mass Index 33.9 Body Surface Area 2.3 Note: bb Last Documented On: 03/18/2023 2:07PM ; [facility], [facility] Results Includes: Results discussed during this encounter No Results Recorded For Specified Dates History of Present Illness Includes: History of Present Illness from this encounter [place] Nelson is a 62 year old male. [...] is currently smoking greater than 1 pack/day. Social History Description Last Updated Tobacco use [...] of seasonal allergic reaction. Reviewed on 03-18-2023 Mental Status Includes: Mental Status from this encounter Description No anxiety Functional Status Includes: Functional Status from this encounter No Functional Status Recorded Physical Exam Includes: Physical Exam from this encounter Allergies Includes: Active Allergies No Known Allergies Encounters Encounter Provider Location Date Check-In Time Check- Out Time Diagnosis Follow Up Rosa M saleem MD [facility] 3 1:44PM 3:22PM Insurance Includes: Active Insurance Policies Plan Name Member ID Group # Subscriber Relationship Effect gaby Dates 1 - [facility] [id number] Shelly Nelson Self Clinical Notes Includes: Clinical Notes from this encounter * Progress note Date Encounter Last Documented by 03/18/2023 Follow Up Last documented on 03/19/2023; 5:04 PM, Rosa M Blum MD; [facility], [facility] Active Problems & Conditions - Neck Pain [...] Studies: Neuro-Electrical Functions: EMG 03/14/2023 [facility] @ [facility]. Imaging: X-Ray: An X-ray was performed 12/03/2022 [facility] @ [facility]. CT Scan: CT scan 02/25/2023 [facility] @ [facility]. MRI Scan: An MRI was performed 12/27/2022 [facility] @ [facility]. Therapy - Clinical consultation report. - Intervention and counseling on cessation of tobacco use. - Referral to physician. Counseling/Education - Lose weight Plan StartCited - Radiculopathy, cervical region Procedure/Tests: EMG, Nerve Conduction Study Instructions: BUE Therapy/Physical Therapy: Cervical Instructions: See PT order attached Referral/Orthopedic: Consult with Orthopedic Instructions: Right Shoulder Dr. Luc Madsen EndCited Practice Management Use of tobacco assessment performed. Care Team - Anitra Chow MD Notes This dictation was done with voice recognition software and may contain errors and omissions.
--- NOTE | 2023-08-23 11:08 | ED_ITS ---
Discharge Plan Disposition Patient Disposition: Home, Self-Care Condition: Good Prescriptions Prescriptions: New amoxicillin [amoxicillin] 875 mg tablet 875 mg PO Q12H Qty: 20 0RF benzonatate [benzonatate] 100 mg capsule 100 mg PO TIDP PRN (Reason: Cough) Qty: 30 0RF methylprednisolone 4 mg Tablets,Dose Pack 4 mg PO DIRECTED Qty: 21 0RF No Action carvedilol 6.25 mg tablet 6.25 mg PO BID Qty: 60 0RF Rx Instructions: must administer with a meal/food amlodipine 10 mg tablet 10 mg PO DAILY Qty: 30 2RF clobetasol 0.05 % solution 1 applic topical DAILY Qty: 50 1RF lisinopril 40 mg tablet 40 mg PO DAILY Qty: 30 2RF erythromycin 5 mg/gram (0.5 %) ointment 0.5 inch Eye-Right BID Patient Comments: INSTILL 1/4 INCH STRIP TO RIGHT EYE TWICE A DAY FOR 7 DAYS benzonatate [benzonatate] 100 mg capsule 100 mg PO TIDP PRN (Reason: Cough) Qty: 30 0RF Referrals Follow up/Referrals: Provider,Referral, MD [Primary Care Provider] - See instructions Activity Restrictions/Add. Instructions Additional Instructions/Restrictions: Drink plenty of fluids. Take tylenol or ibuprofen for pain or fever. Take the medications as directed. Follow up with your regular doctor. GO TO THE ER FOR ANY WORSENING SYMPTOMS Clinical Impressions Clinical Impression: Pharyngitis, Acute viral syndrome Instructions Patient Instructions: DI for Pharyngitis/Tonsillopharyngitis -- Adult, DI for Viral Syndrome Discharge ED Provider: Frederic Toro [facility] General Stated complaint: cough Time Seen by Provider: 08/23/23 11:08 Related Data Home Medications Medication Instructions Recorded Confirmed erythromycin 5 mg/gram (0.5 %) eye 0.5 inch Eye-Right BID 04/09/23 04/09/23 ointment Previous Rx's Medication Instructions Recorded amlodipine 10 mg tablet 10 mg PO DAILY #30 tabs 03/08/23 clobetasol 0.05 % scalp solution 1 applic topical DAILY #50 mL 03/08/23 lisinopril 40 mg tablet 40 mg PO DAILY BLOOD PRESSURE #30 03/08/23 tabs benzonatate 100 mg capsule 100 mg PO TIDP PRN Cough #30 caps 03/26/23 carvedilol 6.25 mg tablet 6.25 mg PO BID #60 tabs 04/03/23 amoxicillin 875 mg tablet 875 mg PO Q12H #20 tabs 08/23/23 benzonatate 100 mg capsule 100 mg PO TIDP PRN Cough #30 caps 08/23/23 methylprednisolone 4 mg tablets in 4 mg PO DIRECTED #21 tabs 08/23/23 a dose pack Allergies Allergy/AdvReac Type Severity Reaction Status Date / Time No Known Allergies Allergy Verified 04/09/23 15:00 [facility] Disclaimer: The information contained in this section may have been updated after the patient was seen, as this information can be updated by other users. 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 (Updated 08/23/23 @ 11:34 by Frederic Toro APRN) Amputation of finger tip Corneal abrasion Exposure to COVID-19 virus Hypertension Nerve damage Renal colic on right side Scalp irritation Sinusitis Urethral colic due to calculus Surgical History History of knee surgery History of neck surgery History of shoulder surgery Hx of inguinal hernia repair Family History Other No significant family 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 Smoking Status: Current every day smoker tobacco type: cigarettes packs per day: 1 quit status: has quit before alcohol intake: never substance use type: denies use current occupational status: retired Travel in the last 8 weeks: None adopted: No caregiver/support person: No foster care: No household members: friend(s) housing: apartment lives independently: Yes marital status: single number of children: 3 number of grandchildren: 7 service: Yes (discharged 1985) 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 halfway: No ROS Obtained: Yes All systems reviewed & no additional complaints except as docu mented Constitutional Constitutional: Reports chills and Reports fever(s) Eyes Eyes: Denies eye discharge ENT Ears, Nose, Mouth, and Throat: Reports as per HPI Cardiovascular Cardiovascular: Denies chest pain Respiratory Respiratory: Denies chest congestion and Reports cough Gastrointestinal Gastrointestingal: Reports nausea; Denies abdominal pain, constipation, cramping, diarrhea or vomiting Musculoskeletal Musculoskeletal: Denies arthralgias Integumentary/Breasts Skin/Breast: Denies rash Neurologic Neurologic: Denies paresthesias Physical Exam General General appearance: alert and in no apparent distress Head Head exam: atraumatic, normocephalic and normal inspection Eye Eye exam: Present normal appearance, PERRL and EOMI ENT ENT exam: Present mucous membranes moist and normal external ear exam Expanded ENT Exam TM/Canal exam: Bilateral TM: erythema and bulging Nose exam: Absent sinus tenderness Mouth exam: Present normal external inspection; Absent drooling Teeth exam: Present normal inspection Throat exam: Present tonsillar erythema, tonsillomegaly and tonsillar exudate Neck Neck exam: Present normal inspection, full ROM and trachea midline; Absent tenderness, meningismus or lymphadenopathy Chest Chest inspection: Present normal inspection and symmetric chest wall rise; Absent tenderness Respiratory Respiratory exam: Present normal lung sounds bilaterally; Absent respiratory distress, wheezes or stridor Cardiovascular Cardiovascular exam: Present regular rate and normal rhythm; Absent systolic murmur or diastolic murmur Abdominal Exam Abdominal exam: Present soft and normal bowel sounds; Absent distention, tenderness, guarding, rebound or rigidity Extremities Exam Extremities exam: Present normal inspection and normal capillary refill; Absent calf tenderness Back Exam Back exam: Present normal inspection and full ROM; Absent tenderness, CVA tenderness (R) or CVA tenderness (L) Neurological Exam Neurological exam: Present alert, oriented X3 and CN II-XII intact Psychiatric Psychiatric exam: Present normal affect and normal mood Skin Skin exam: Present warm, dry, intact and normal color Medical Decision Making Medical Records Medical records reviewed: No I reviewed the patient's medical records. Kalpesh Inquiry Pt receiving controlled substance: No Lab Data Lab results reviewed: Yes I reviewed the patient's lab results.
[2023-08-23 11:15] VITALS: BP 168/94; PULSE 90; RESP 18; TEMP 37.1; O2SAT 98; BMI 32.8
[2023-08-23 11:39] VITALS: BP 168/94; PULSE 90; RESP 18; TEMP 37.1; O2SAT 98
[2023-08-23 11:45] LABS: UTC Strep Screen (Rapid) Negative (Negative)
== END 2023-08-23 11:42 | disposition home or self-care (01) ==
PROVIDERS: Emergency Provider Nurse Practitioner Family
DX: J02.9 Acute pharyngitis, unspecified (principal); B34.9 Viral infection, unspecified; F17.210 Nicotine dependence, cigarettes, uncomplicated; I10 Essential (primary) hypertension
CPT/HCPCS: 87635; 87880; 99212; 99214; G0463

== ENCOUNTER 2023-10-30 11:46 | Emergency (ER) | payer MEDICARE, OTHER, SELFPAY ==
--- NOTE | 2023-10-30 11:46 | ECG_ITS ---
APPROVED REPORT Exam: Resting ECG HR:94 bpm ECG Measurements Heart Rate 94 AXES WY 128 P 37 QRSd 111 QRS 59 QT 352 T 66 QTc 404 Conclusion SINUS RHYTHM INCOMPLETE RIGHT BUNDLE BRANCH BLOCK [90+ ms QRS DURATION, TERMINAL R IN V1/V2, 40+ ms S IN I/aVL/V4/V5/V6] PROBABLE LATERAL MYOCARDIAL INFARCTION , OF INDETERMINATE AGE [35 ms Q WAVE IN I/aVL/V5/V6] ABNORMAL ECG UNCONFIRMED REPORT Electronically signed by : Arik Sky MD 10/31/2023 19:48:20
[2023-10-30 11:47] VITALS: BP 213/97; PULSE 94; RESP 21; TEMP 36.7; O2SAT 98; BMI 31.4
[2023-10-30 12:01] VITALS: BP 167/83; PULSE 80; RESP 17; O2SAT 96
--- NOTE | 2023-10-30 12:19 | XR_ITS ---
FINAL REPORT CLINICAL HISTORY: Shortness of breath COMPARISON: 12/03/2022 FINDINGS: The heart size is normal. The mediastinum is normal. There are mild chronic changes in the lung bases. There are no pleural effusions. There is no pneumothorax. There is no osseous abnormality. Cervical fusion hardware is noted. IMPRESSION: Mild chronic changes without acute cardiopulmonary process Reviewed, Interpreted and Dictated by Cristofer Angeles MD Transcribed by Sharona Fleming Authenticated and [facility]
--- NOTE | 2023-10-30 12:20 | HMH.EDCP ---
Discharge Plan Disposition Patient Disposition: Home, Self-Care Prescriptions Prescriptions: No Action carvedilol 6.25 mg tablet 6.25 mg PO BID Qty: 60 0RF Rx Instructions: must administer with a meal/food amlodipine 10 mg tablet 10 mg PO DAILY Qty: 30 2RF clobetasol 0.05 % solution 1 applic topical DAILY Qty: 50 1RF lisinopril 40 mg tablet 40 mg PO DAILY Qty: 30 2RF erythromycin 5 mg/gram (0.5 %) ointment 0.5 inch Eye-Right BID Patient Comments: INSTILL 1/4 INCH STRIP TO RIGHT EYE TWICE A DAY FOR 7 DAYS benzonatate [benzonatate] 100 mg capsule 100 mg PO TIDP PRN (Reason: Cough) Qty: 30 0RF amoxicillin [amoxicillin] 875 mg tablet 875 mg PO Q12H Qty: 20 0RF benzonatate [benzonatate] 100 mg capsule 100 mg PO TIDP PRN (Reason: Cough) Qty: 30 0RF methylprednisolone 4 mg Tablets,Dose Pack 4 mg PO DIRECTED Qty: 21 0RF Referrals Follow up/Referrals: Daisy Lindsey PA [Primary Care Provider] - See instructions Zachary Templeton MD [Staff Physician] - See instructions Activity Restrictions/Add. Instructions Additional Instructions/Restrictions: You have a slightly abnormal EKG which is nonspecific from an emergency standpoint there is no evidence of a heart attack today. I would recommend that she follow-up with her circular sawyer helper for further evaluation. Your symptoms today however most consistent with cervical radiculopathy which is secondary to pinched nerves in your neck. I would recommend that you follow-up with your neurosurgeon who operated on you in the past or with your primary care doctor to discuss the possibility of getting an outpatient MRI if your symptoms persist Clinical Impressions Clinical Impression: Cervical radiculopathy Discharge ED Provider: Sean Beavers [facility] General Chief Complaint: Chest Pain Stated Complaint: Chest Pain Time Seen by Provider: 10/30/23 12:15 Mode of Arrival: Family Vehicle Source of Information: Patient and Medical Record Limitations: No Limitations Description of Symptoms (Recalled from ER Triage Doc. by RN): Pt c/o anterior chest pain for 3 days. States pain radiates down his arms. He does have a hx of nerve damage to his arms and legs, but reports this pain is different. Denies any n/v/d. Denies any previous cardiac cath. He was on blood thinner and antihypertensive medications but has been out of these meds for > 3 mn d/t Dr. Chow left . Reports SOA with exertion. 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 History of Present Illness HPI narrative: Patient is a 63-year-old male presenting today with left arm discomfort. States that he has a history of cervical radiculopathy had cervical spine surgery 10 to 12 years ago for herniated disc and presents today with similar symptoms. States his left arm has shooting pain going from his neck down to his left arm. He has chronic numbness on the ulnar aspect of that hand but no new weakness numbness changes in temperature etc. States he is got some chronic chest discomfort but because he is always been told that if you have pain shooting down your left arm need to be evaluated for possible heart attack which is his main complaint today. Denies any exertional chest pain states that his chest tightness has been ongoing for a long period of time nothing intermittent no diaphoresis associated with this no nausea etc. Does have a history of smoking but denies any other past medical problems. Related Data Home Medications Medication Instructions Recorded Confirmed erythromycin 5 mg/gram (0.5 %) eye 0.5 inch Eye-Right BID 04/09/23 04/09/23 ointment Previous Rx's Medication Instructions Recorded amlodipine 10 mg tablet 10 mg PO DAILY #30 tabs 03/08/23 clobetasol 0.05 % scalp solution 1 applic topical DAILY #50 mL 03/08/23 lisinopril 40 mg tablet 40 mg PO DAILY BLOOD PRESSURE #30 03/08/23 tabs benzonatate 100 mg capsule 100 mg PO TIDP PRN Cough #30 caps 03/26/23 carvedilol 6.25 mg tablet 6.25 mg P
[2023-10-30 12:29] LABS: Basophils # 0.1 K/mm3 (0-0.2); Basophils % 0.6 % (0.1-2.0); Eosinophils # 0.4 K/mm3 (0.0-0.4); Eosinophils % 3.6 % (0.1-12.0); Hematocrit 47.2 % (42.0-52.0); Hemoglobin 15.9 g/dL (14.1-18.0); Lymphocytes # 4.3 K/mm3 (0.7-4.5); Lymphocytes % 43.9 % (10-50); Mean Corpuscular HGB Conc 33.6 g/dL (31.8-35.4); Mean Corpuscular Hemoglobin 30.8 pg (27.0-31.2); Mean Corpuscular Volume 91.8 fl (80-94); Mean Platelet Volume 7.6 fl (7.4-10.4); Monocytes # 0.7 K/mm3 (0.1-1.0); Neutrophils # 4.4 K/mm3 (1.8-7.8); Neutrophils % 44.8 % (37.0-80.0); Platelet Count 242 K/mm3 (142-424); Red Blood Count 5.14 M/mm3 (4.60-6.20); Red Cell Distribution Width 14.4 % (11.5-17.5); White Blood Count 9.8 K/mm3 (4.8-10.8)
[2023-10-30 12:30] VITALS: BP 148/81; PULSE 62; RESP 16; O2SAT 95
[2023-10-30 12:32] LABS: Chloride 101 mmol/L (98-107); Sodium 140 mmol/L (136-145)
[2023-10-30 12:33] LABS: Potassium 3.7 mmoL/L (3.5-5.1)
[2023-10-30 12:35] LABS: Alanine Aminotransferase 35 U/L (12-78); Albumin Level 4.9 g/dl (3.5-5.0); Albumin/Globulin Ratio 1.4 (1.1-1.8); Alkaline Phosphatase 82 U/L (38-126); Anion Gap 14.7 mEq/L (5-15); Aspartate Amino Transferase 41 U/L (17-59); Bilirubin,Total 0.5 mg/dl (0.2-1.3); Blood Urea Nitrogen 13 mg/dl (9-20); Calcium 9.2 mg/dl (8.4-10.2); Carbon Dioxide 28 mmol/L (22.0-30.0); Creatinine Clearance Estimated 106 mL/min (50-200); Estimated Glomerular Filt Rate 97 ml/min (>60); GFR (African American) 117 ML/MIN (>60); Globulin 3.4 g/dL (1.3-3.2); Glucose 88 mg/dl (74-100); Total Protein,Serum 8.3 g/dl (6.3-8.2)
[2023-10-30 12:48] LABS: Troponin I < 0.01 ng/ml (0.00-0.034)
[2023-10-30 13:00] VITALS: BP 167/75; PULSE 71; RESP 18; O2SAT 96
[2023-10-30 13:44] VITALS: BP 152/81; PULSE 72; RESP 18; TEMP 36.7; O2SAT 97
== END 2023-10-30 13:45 | disposition home or self-care (01) ==
PROVIDERS: Emergency Provider Student in an Organized Health Care Education/Training Program; PCP Student in an Organized Health Care Education/Training Program
DX: R07.9 Chest pain, unspecified (principal); M54.12 Radiculopathy, cervical region; M79.602 Pain in left arm; F17.210 Nicotine dependence, cigarettes, uncomplicated
CPT/HCPCS: 71045; 80053; 84484; 85025; 93005; 99285

== ENCOUNTER 2023-12-06 08:23 | Emergency (ER) | payer MEDICARE, OTHER, SELFPAY ==
[2023-12-06 08:40] VITALS: PULSE 85; RESP 19; TEMP 36.8; O2SAT 98; BMI 34.8
--- NOTE | 2023-12-06 08:44 | ED_ITS ---
Discharge Plan Disposition Patient Disposition: Home, Self-Care Condition: Good Prescriptions Prescriptions: New ciprofloxacin HCl [Cipro] 500 mg tablet 500 mg PO BID 10 Days Qty: 20 0RF ondansetron 4 mg Tablet,Disintegrating 4 mg PO Q8H PRN (Reason: Nausea) Qty: 12 0RF No Action carvedilol 6.25 mg tablet 6.25 mg PO BID Qty: 60 0RF Rx Instructions: must administer with a meal/food amlodipine 10 mg tablet 10 mg PO DAILY Qty: 30 2RF clobetasol 0.05 % solution 1 applic topical DAILY Qty: 50 1RF lisinopril 40 mg tablet 40 mg PO DAILY Qty: 30 2RF erythromycin 5 mg/gram (0.5 %) ointment 0.5 inch Eye-Right BID Patient Comments: INSTILL 1/4 INCH STRIP TO RIGHT EYE TWICE A DAY FOR 7 DAYS Referrals Follow up/Referrals: Ivette Cabrera APRN [Primary Care Provider] - See instructions Activity Restrictions/Add. Instructions Additional Instructions/Restrictions: Drink plenty of fluids. Take tylenol or ibuprofen for pain or fever. Take the medications as directed. Follow up with your regular doctor. GO TO THE ER FOR ANY WORSENING SYMPTOMS Clinical Impressions Clinical Impression: Abdominal pain Instructions Patient Instructions: DI for Abdominal Pain-Adult Discharge ED Provider: Frederic Toro [facility] General Stated complaint: abdominal, back pain Time Seen by Provider: 12/06/23 08:43 History of Present Illness Provider Complaint: He c/o low back pain and left lower quadrant abdominal pain for the past 3 weeks. He denies any fever/chills, nausea, constipation or diarrhea. His last normal bowel movement was yesterday. He has a history of having this kind of pain off and on for the past few years. Related Data Home Medications Medication Instructions Recorded Confirmed erythromycin 5 mg/gram (0.5 %) eye 0.5 inch Eye-Right BID 04/09/23 04/09/23 ointment Previous Rx's Medication Instructions Recorded amlodipine 10 mg tablet 10 mg PO DAILY #30 tabs 03/08/23 clobetasol 0.05 % scalp solution 1 applic topical DAILY #50 mL 03/08/23 lisinopril 40 mg tablet 40 mg PO DAILY BLOOD PRESSURE #30 03/08/23 tabs carvedilol 6.25 mg tablet 6.25 mg PO BID #60 tabs 04/03/23 ciprofloxacin HCl 500 mg tablet 500 mg PO BID 10 days #20 tabs 12/06/23 (Cipro) ondansetron 4 mg disintegrating 4 mg PO Q8H PRN Nausea #12 tabs 12/06/23 tablet Allergies Allergy/AdvReac Type Severity Reaction Status Date / Time No Known Allergies Allergy Verified 12/06/23 08:58 [facility] Disclaimer: The information contained in this section may have been updated after the patient was seen, as this information can be updated by other users. 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 (Updated 12/06/23 @ 10:08 by Frederic Toro APRN) Amputation of finger tip Corneal abrasion Exposure to COVID-19 virus Hypertension Nerve damage Renal colic on right side Scalp irritation Sinusitis Urethral colic due to calculus Surgical History History of knee surgery History of neck surgery History of shoulder surgery Hx of inguinal hernia repair Family History Other No significant family 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 Smoking Status: Current every day smoker tobacco type: cigarettes packs per day: 1 quit status: has quit before alcohol intake: never substance use type: denies use current occupational status: retired Travel in the last 8 weeks: None adopted: No caregiver/support person: No foster care: No household members: friend(s) housing: apartment lives independently: Yes marital status: single number of children: 3 number of grandchildren: 7 service: Yes (discharged 1985) 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 facility: No ROS Obtained: Yes All systems reviewed & no additional complaints except as documented Constitutional Constitutional: Denies chills, Denies fever(s) and Reports poor appetite ENT Ears, Nose, Mouth, and Throat: Denies dizziness and Denies sore throat Cardiovascular Cardiovascular: Denies dyspnea Respiratory Respiratory: Denies chest congestion, Denies cough and Denies dyspnea Gastrointestinal Gastrointestingal: Reports as per HPI Genitourinary Male Genitourinary: Denies difficulty urinating, Denies urinary frequency, Denies urinary hesitancy and Denies urinary incontinence Musculoskeletal Musculoskeletal: Denies arthralgias Integumentary/Breasts Skin/Breast: Denies rash Neurologic Neurologic: Denies dizziness Physical Exam General General appearance: alert and in no apparent distress Head Head exam: atraumatic and normocephalic Eye Eye exam: Present normal appearance, PERRL and EOMI ENT ENT exam: Present normal exam, normal oropharynx, mucous membranes moist, TM's n ormal bilaterally and normal external ear exam Neck Neck exam: Present normal inspection, full ROM and trachea midline; Absent tenderness, meningismus or lymphadenopathy Chest Chest inspection: Present normal inspection and symmetric chest wall rise; Absent tenderness, rash or abscess Respiratory Respiratory exam: Present normal lung sounds bilaterally; Absent respiratory distress, wheezes or stridor Cardiovascular Cardiovascular exam: Present regular rate and normal rhythm; Absent irregular rhythm, systolic murmur, diastolic murmur or JVD Abdominal Exam Abdominal exam: Present soft and normal bowel sounds; Absent distention, tenderness, guarding, rebound, rigidity, psoas sign, obturator sign, heel tap sign, Lawrence's sign, Rovsing's sign or tenderness at McBurney's Point Extremities Exam Extremities exam: Present normal inspection and full ROM; Absent tenderness Back Exam Back exam: Present normal inspection and full ROM; Absent tenderness, CVA tenderness (R) or CVA tenderness (L) Neurological Exam Neurological exam: Present alert, oriented X3 and CN II-XII intact Psychiatric Psychiatric exam: Present normal affect and normal mood Skin Skin exam: Present warm, dry, intact and normal color Lymphatic Lymphatic Findings: no adenopathy Medical Decision Making Medical Records Medical records reviewed: No I reviewed the patient's medical records. Kalpesh Inquiry Pt receiving controlled substance: No Lab Data Lab results reviewed: Yes I reviewed the patient's lab results. 12/06/23 09:10 12/06/23 09:10
--- NOTE | 2023-12-06 09:01 | XR_ITS ---
FINAL REPORT TECHNIQUE: Chest PA & Lateral CLINICAL HISTORY: cough, congestion COMPARISON: 10/30/2023 FINDINGS: 2 views of the chest were performed. Mild cardiomegaly is present. The mediastinum is within normal limits. There is no acute cardiopulmonary process. There are no pleural effusions. There is no pneumothorax. Prior lower cervical fusion is noted. IMPRESSION: Mild cardiomegaly. No acute cardiopulmonary process. Reviewed, Interpreted and Dictated by Cristofer Angeles MD Transcribed by Valerie Duckworth Authenticated and [facility]
[2023-12-06 09:37] LABS: Basophils # 0.1 K/mm3 (0-0.2); Basophils % 0.8 % (0.1-2.0); Eosinophils # 0.3 K/mm3 (0.0-0.4); Eosinophils % 2.8 % (0.1-12.0); Hemoglobin 15.4 g/dL (14.1-18.0); Lymphocytes # 2.5 K/mm3 (0.7-4.5); Lymphocytes % 28.5 % (10-50); Mean Corpuscular HGB Conc 39.5 g/dL (31.8-35.4); Mean Corpuscular Hemoglobin 36.2 pg (27.0-31.2); Mean Corpuscular Volume 91.7 fl (80-94); Mean Platelet Volume 8.5 fl (7.4-10.4); Monocytes # 0.6 K/mm3 (0.1-1.0); Monocytes % 7.1 % (1.7-9.3); Neutrophils # 5.4 K/mm3 (1.8-7.8); Neutrophils % 60.7 % (37.0-80.0); Platelet Count 184 K/mm3 (142-424); Red Blood Count 4.25 M/mm3 (4.60-6.20); Red Cell Distribution Width 14.4 % (11.5-17.5); White Blood Count 8.8 K/mm3 (4.8-10.8)
[2023-12-06 09:47] LABS: Amylase 67 U/L (30-110); Anion Gap 13.2 mEq/L (5-15); Blood Urea Nitrogen 11 mg/dl (9-20); Calcium 9.5 mg/dl (8.4-10.2); Carbon Dioxide 26 mmol/L (22.0-30.0); Chloride 102 mmol/L (98-107); Creatinine Clearance Estimated 115 mL/min (50-200); Estimated Glomerular Filt Rate 97 ml/min (>60); GFR (African American) 117 ML/MIN (>60); Glucose 99 mg/dl (74-100); Lipase 46 U/L (23-300); Potassium 4.2 mmoL/L (3.5-5.1); Sodium 137 mmol/L (136-145)
[2023-12-06 10:20] LABS: Apearance,Urine Clear (Clear); Bilirubin,Urine Negative (Negative); Blood, Urine 1+ (Negative); Color,Urine Yellow (Yellow); Glucose,Urine (UA) Negative (Negative); Ketones,Urine Negative (Negative); Protein,Urine Negative (Negative); UTC Leukocyte Esterase,Urine Negative (Negative); UTC Nitrate,Urine Negative (Negative); Urobilinogen,Urine 0.2 EU/dl (0.2)
[2023-12-06 10:25] VITALS: BP 195/90; PULSE 85; RESP 18; TEMP 36.8; O2SAT 98
--- NOTE | 2023-12-06 10:26 | PC.NURSE ---
Pt has hx of HTN and has not taken his medicine today.
== END 2023-12-06 10:15 | disposition home or self-care (01) ==
PROVIDERS: Emergency Provider Nurse Practitioner Family; PCP Family Medicine
DX: R10.32 Left lower quadrant pain (principal); M54.59 Other low back pain; F17.210 Nicotine dependence, cigarettes, uncomplicated; I10 Essential (primary) hypertension
CPT/HCPCS: 71046; 80048; 81003; 82150; 83690; 85025; 99212; 99214; G0463

== ENCOUNTER 2024-02-24 12:26 | Emergency (ER) | payer MEDICARE, OTHER, SELFPAY ==
[2024-02-24 12:45] VITALS: BP 158/71; PULSE 63; RESP 18; TEMP 37; O2SAT 98; BMI 33.4
--- NOTE | 2024-02-24 12:48 | ECG_ITS ---
APPROVED REPORT Exam: Resting ECG HR:61 bpm ECG Measurements Heart Rate 61 AXES HI 157 P 64 QRSd 105 QRS 37 QT 409 T 85 QTc 412 Conclusion SINUS RHYTHM INCOMPLETE RIGHT BUNDLE BRANCH BLOCK [90+ ms QRS DURATION, TERMINAL R IN V1/V2, 40+ ms S IN I/aVL/V4/V5/V6] MODERATE ST DEPRESSION [0.05+ mV ST DEPRESSION] ABNORMAL ECG UNCONFIRMED REPORT Electronically signed by : RICARDO MAGDALENO, 02/24/2024 16:13:44
--- NOTE | 2024-02-24 12:54 | EXP.UTC ---
Discharge Plan Disposition Patient Disposition: Home, Self-Care Condition: Good Prescriptions Prescriptions: New benzonatate 100 mg capsule 100 mg PO TIDP PRN (Reason: Cough) Qty: 30 0RF methylprednisolone 4 mg Tablets,Dose Pack 4 mg PO DIRECTED 6 Days Qty: 21 0RF Rx Instructions: Take 1 pack as directed for 6 days ondansetron 4 mg Tablet,Disintegrating 4 mg PO Q8H PRN (Reason: Nausea) Qty: 12 0RF cefdinir 300 mg capsule 300 mg PO BID Qty: 20 0RF No Action amlodipine 10 mg tablet 10 mg PO DAILY Qty: 90 0RF lisinopril 40 mg tablet 40 mg PO DAILY Qty: 90 0RF famotidine [Pepcid] 20 mg tablet 20 mg PO BID Qty: 60 0RF Arexvy (PF) 120 mcg/0.5 mL suspension for reconstitution 0.5 ml IM ONCE Qty: 10 0RF bisoprolol fumarate 5 mg tablet 5 mg PO DAILY Qty: 30 2RF Referrals Follow up/Referrals: Kiera Castro APRN [Primary Care Provider] - See instructions Activity Restrictions/Add. Instructions Additional Instructions/Restrictions: Drink plenty of fluids. Take tylenol or ibuprofen for pain or fever. Take the medications as directed. Follow up with your regular doctor. GO TO THE ER FOR ANY WORSENING SYMPTOMS Clinical Impressions Clinical Impression: Bronchitis, Thoracic back pain, Neck pain Instructions Patient Instructions: DI for Thoracic Back Pain, DI for Acute Bronchitis, Methylprednisolone, Cefdinir Discharge ED Provider: Frederic Toro [facility] [place] General Stated complaint: nausea, abd pain, pain in back of neck, clammy Time Seen by Provider: 02/24/24 12:49 History of Present Illness Provider Complaint: He states that for the past 1 week he has had a productive cough with yellowish sputum. He states that he has coughed so much that his upper back and shoulders hurt when he coughs. He has had nausea/vomiting related to the sputum and and coughing. He also has posterior neck pain. He has a long history of neck pain. He denies any injury. He denies any chest pain and shortness of breath. Related Data Previous Rx's Medication Instructions Recorded RSVPreF3 antigen-[id number] 0.5 ml IM ONCE #10 ea 01/29/24 adjuvant(PF) 120 mcg/0.5 mL IM suspension, kit (Arexvy (PF)) amlodipine 10 mg tablet 10 mg PO DAILY #90 tabs 12/09/23 famotidine 20 mg tablet (Pepcid) 20 mg PO BID #60 tabs 12/09/23 lisinopril 40 mg tablet 40 mg PO DAILY BLOOD PRESSURE #90 12/09/23 tabs bisoprolol fumarate 5 mg tablet 5 mg PO DAILY #30 tabs 12/17/23 benzonatate 100 mg capsule 100 mg PO TIDP PRN Cough #30 caps 02/24/24 cefdinir 300 mg capsule 300 mg PO BID #20 caps 02/24/24 methylprednisolone 4 mg tablets in 4 mg PO DIRECTED 6 days #21 tabs 02/24/24 a dose pack ondansetron 4 mg disintegrating 4 mg PO Q8H PRN Nausea #12 tabs 02/24/24 tablet Allergies Allergy/AdvReac Type Severity Reaction Status Date / Time No Known Allergies Allergy Verified 02/24/24 12:58 [facility] Disclaimer: The information contained in this section may have been updated after the patient was seen, as this information can be updated by other users. 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 Abdominal pain Acute viral syndrome Amputation of finger tip Angina at rest Bilateral arm pain Bilateral shoulder pain Cervical radiculopathy Cervical radiculopathy Corneal abrasion Eustachian tube dysfunction Exposure to COVID-19 virus Fatigue Generalized body aches Hypertension Neck pain Neck pain Nerve damage Pharyngitis Renal colic on right side Scalp irritation Shoulder pain Sinusitis Urethral colic due to calculus Surgical History History of knee surgery History of neck surgery History of shoulder surgery Hx of inguinal hernia repair Family History Other No significant family 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 Smoking Status: Current every day smoker tobacco type: cigarettes packs per day: 1 quit status: has quit before alcohol intake: never substance use type: denies use current occupational status: retired Travel in the last 8 weeks: None adopted: No caregiver/support person: No foster care: No household members: friend(s) housing: apartment lives independently: Yes marital status: single number of children: 3 number of grandchildren: 7 service: Yes (discharged 1985) 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 senior care: No ROS Obtained: Yes All systems reviewed & no additional complaints except as documented Constitutional Constitutional: Reports poor appetite Eyes Eyes: Reports system reviewed and no additional complaints, except as documented ENT Ears, Nose, Mouth, and Throat: Reports as per HPI and Reports neck pain Cardiovascular Cardiovascular: Reports system reviewed and no additional complaints, except as documented, Denies chest pain, Denies chest pain at rest, Denies chest pain with activity, Denies dyspnea, Denies dyspnea on exertion, Denies edema and Denies irregular heart rhythm Respiratory Respiratory: Denies shortness of breath, Reports chest congestion, Reports cough, Denies dyspnea, Denies dyspnea on exertion, Denies stridor and Denies wheezing Gastrointestinal Gastrointestingal: Reports system reviewed and no additional complaints, except as documented; Denies abdominal pain, diarrhea or vomiting Musculoskeletal Musculoskeletal: Reports back pain and Reports neck pain Integumentary/Breasts Skin/Breast: Reports system reviewed and no additional complaints, except as documented and Denies rash Neurologic Neurologic: Denies paresthesias Allergic/Immunologic Allergic/Immunologic: Denies wheezing Physical Exam General General appearance: alert and in no apparent distress Eye Eye exam: Present normal appearance, PERRL and EOMI ENT ENT exam: Present mucous membranes moist and normal external ear exam Expanded ENT Exam External ear exam: Present normal external inspection TM/Canal exam: Bilateral TM: erythema and bulging Nose exam: Absent sinus tenderness Nasal speculum exam: Bilateral: normal Mouth exam: Present normal external inspection; Absent drooling Teeth exam: Present normal inspection Throat exam: Present tonsillar erythema and tonsillomegaly Neck Neck exam: Present normal inspection, full ROM and trachea midline; Absent tenderness, lymphadenopathy or thyromegaly Chest Chest inspection: Present normal inspection and symmetric chest wall rise; Absent tenderness or rash Respiratory Respiratory exam: Present normal lung sounds bilaterally; Absent respiratory distress, wheezes, stridor or accessory muscle use Cardiovascular Cardiovascular exam: Present regular rate, normal rhythm and normal heart sounds Abdominal Exam Abdominal exam: Present soft; Absent distention, tenderness, guarding, rebound or rigidity Extremities Exam Extremities exam: Present normal inspection, full ROM and normal capillary refill; Absent tenderness or calf tenderness Back Exam Back exam: Present normal inspection and full ROM; Absent tenderness, CVA tenderness (R), CVA tenderness (L), muscle spasm, paraspinal tenderness, vertebral tenderness, rashes, sciatic notch tenderness (R) or sciatic notch tenderness (L) Neurological Exam Neurological exam: Present alert, oriented X3, CN II-XII intact, normal gait and reflexes normal; Absent motor sensory deficit Expanded Neurological Exam Speech: Present fluid speech Cranial nerves: Normal: EOM function (II, III, IV, ), facial sensation (V), facial palsy (VII), gag reflex (IX), spinal accessory function (XI) and tongue deviation (XII) Cerebellar function: normal gait Motor strength - LUE: 5/5 Motor strength - RUE: 5/5 Motor strength - LLE: 5/5 Motor strength - RLE: 5/5 Upper motor neuron exam: Normal: jack neglect and sensory extinction Sensory exam upper extremity: Normal: light touch and 2 point discrimination Sensory exam lower extremity: Normal: light touch and 2 point discrimination DTR: 2+: biceps (L), biceps (R), patellar (L), patellar (R), Achilles tendon (L) and Achilles tendon (R) Spinal cord function: Absent saddle anesthesia Psychiatric Psychiatric exam: Present normal affect and normal mood Skin Skin exam: Present warm, dry, intact and normal color Lymphatic Lymphatic Findings: no adenopathy Medical Decision Making Medical Records Medical records reviewed: No I reviewed the patient's medical records. Kalpesh Inquiry Pt receiving controlled substance: No ECG Data Tracing #1: I reviewed this ECG and interpreted as documented below: ECG initial impression date: 02/24/24 ECG initial impression time: 12:55 ECG normal with no acute: arrhythmias, ischemia, conduction abnormalities, chamber hypertrophy Normal Sinus Rhythm: Yes
[2024-02-24 13:07] LABS: Apearance,Urine Clear (Clear); Color,Urine Dark Yellow (Yellow); PH,Urine 6.5 (5.0-8.5); Specific Gravity, Urine 1.025 (1.005-1.030)
[2024-02-24 13:08] LABS: Bilirubin,Urine 1+ (Negative); Blood, Urine 2+ (Negative); Glucose,Urine (UA) Negative (Negative); Ketones,Urine Negative (Negative); Protein,Urine 1+ (Negative); UTC Leukocyte Esterase,Urine Negative (Negative); UTC Nitrate,Urine Negative (Negative); Urobilinogen,Urine 2 EU/dl (0.2)
[2024-02-24 13:58] VITALS: BP 158/71; PULSE 63; RESP 18; TEMP 37; O2SAT 98
== END 2024-02-24 13:58 | disposition home or self-care (01) ==
PROVIDERS: Emergency Provider Nurse Practitioner Family; PCP Nurse Practitioner Family
DX: J20.9 Acute bronchitis, unspecified (principal); M54.2 Cervicalgia; M54.6 Pain in thoracic spine; R05.9 Cough, unspecified; R11.2 Nausea with vomiting, unspecified; B96.89 Other specified bacterial agents as the cause of diseases classified elsewhere; F17.210 Nicotine dependence, cigarettes, uncomplicated; I10 Essential (primary) hypertension
CPT/HCPCS: 81003; 87086; 93005; 99212; 99214; G0463

== ENCOUNTER 2024-03-10 12:23 | Outpatient (CLI) | payer MEDICARE, OTHER, SELFPAY ==
[2024-03-10 12:44] LABS: Basophils # 0.1 K/mm3 (0-0.2); Basophils % 0.7 % (0.1-2.0); Eosinophils # 0.2 K/mm3 (0.0-0.4); Eosinophils % 3.3 % (0.1-12.0); Hematocrit 46.3 % (42.0-52.0); Hemoglobin 15.2 g/dL (14.1-18.0); Lymphocytes % 27.1 % (10-50); Mean Corpuscular HGB Conc 32.8 g/dL (31.8-35.4); Mean Corpuscular Hemoglobin 31.2 pg (27.0-31.2); Mean Corpuscular Volume 95.4 fl (80-94); Mean Platelet Volume 8.7 fl (7.4-10.4); Monocytes # 0.7 K/mm3 (0.1-1.0); Monocytes % 9.7 % (1.7-9.3); Neutrophils # 4.2 K/mm3 (1.8-7.8); Neutrophils % 59.1 % (37.0-80.0); Platelet Count 210 K/mm3 (142-424); Red Blood Count 4.85 M/mm3 (4.60-6.20); Red Cell Distribution Width 14.5 % (11.5-17.5); White Blood Count 7.2 K/mm3 (4.8-10.8)
[2024-03-10 13:00] LABS: Alanine Aminotransferase 19 U/L (12-78); Albumin Level 4.4 g/dl (3.5-5.0); Albumin/Globulin Ratio 1.7 (1.1-1.8); Alkaline Phosphatase 70 U/L (38-126); Anion Gap 11.4 mEq/L (5-15); Aspartate Amino Transferase 29 U/L (17-59); Bilirubin,Total 0.4 mg/dl (0.2-1.3); Blood Urea Nitrogen 19 mg/dl (9-20); Calcium 9.5 mg/dl (8.4-10.2); Carbon Dioxide 24 mmol/L (22.0-30.0); Chloride 107 mmol/L (98-107); Chol/HDL Ratio 4.8 (1-3.5); Cholesterol 181 mg/dl (140-200); Estimated Glomerular Filt Rate 97 ml/min (>60); GFR (African American) 117 ML/MIN (>60); Globulin 2.6 g/dL (1.3-3.2); Glucose 90 mg/dl (74-100); HDL Cholesterol 38 mg/dl (40-60); Potassium 4.4 mmoL/L (3.5-5.1); Sodium 138 mmol/L (136-145); Triglycerides 159 mg/dl (30-150); VLDL Cholesterol 32 mg/dL (0-40)
[2024-03-10 13:12] LABS: Direct LDL Cholesterol 114.83 mg/dL (100-129)
[2024-03-10 13:31] LABS: Prostate Specific Ag Screen 0.3 ng/ml (0.0-4.0); Thyroid Stimulating Hormone 2.61 uIU/mL (0.465-4.68)
[2024-03-10 13:38] LABS: 25-OH Vitamin D, Total 29.8 ng/mL (30-100)
[2024-03-10 13:50] LABS: Vitamin B12 221 pg/mL (239-931)
[2024-03-10 16:21] LABS: Free T4 (Free Thyroxine) 0.85 ng/dl (0.78-2.19)
[2024-03-11 08:02] LABS: HCV Ab Non Reactive (Non Reactive)
[2024-03-11 13:43] LABS: Rapid Plasma Reagin Ab Titer Non Reactive titer (NonRea<1:1)
[2024-03-11 15:05] LABS: Microscopic, Urine URINE MICROSCOPIC (MICROSCOPIC)
[2024-03-11 15:38] LABS: Appearance,Urine CLEAR (Clear); Bilirubin,Urine Negative (Negative); Blood, Urine 2+ (Negative); Color,Urine YELLOW (Yellow); Glucose,Urine (UA) Negative (Negative); Ketones,Urine Negative (Negative); Leukocyte Esterase,Urine Negative (Negative); Nitrate,Urine Negative (Negative); PH,Urine 6.5 (5.0-8.5); Protein,Urine Negative (Negative)
[2024-03-11 16:33] LABS: Squamous Epithelial Cell,Urine Occasional #/hpf (0-5)
[2024-03-12 11:14] LABS: HBsAg Screen Negative (Negative); HCV Ab Non Reactive (Non Reactive); Hep A Ab, IGM Negative (Negative); Hep B Core Ab, IgM Negative (Negative)
[2024-03-14 08:07] LABS: Neisseria gonorrhoeae, NAA Negative (Negative)
== END 2024-03-10 23:59 | disposition home or self-care (01) ==
LOC: LAB.DROPOF 12:23
PROVIDERS: PCP Nurse Practitioner Family; Visit Provider Nurse Practitioner Family
DX: Z00.00 Encounter for general adult medical examination without abnormal findings (principal); R10.9 Unspecified abdominal pain; E03.9 Hypothyroidism, unspecified; R79.89 Other specified abnormal findings of blood chemistry; Z11.8 Encounter for screening for other infectious and parasitic diseases; Z11.3 Encounter for screening for infections with a predominantly sexual mode of transmission; I10 Essential (primary) hypertension; E78.5 Hyperlipidemia, unspecified; R53.83 Other fatigue; E55.9 Vitamin D deficiency, unspecified; Z20.5 Contact with and (suspected) exposure to viral hepatitis; E53.8 Deficiency of other specified B group vitamins; Z12.5 Encounter for screening for malignant neoplasm of prostate; Z72.0 Tobacco use
CPT/HCPCS: 80050; 80053; 80061; 80074; 81001; 82306; 82607; 84156; 84439; 84443; 85025; 86593; 87086; 87491; 87591; G0103

== ENCOUNTER 2024-03-31 07:52 | Outpatient (CLI) | payer MEDICARE, OTHER, SELFPAY ==
--- NOTE | 2024-03-31 07:52 | CT_ITS ---
FINAL REPORT CLINICAL HISTORY: abd pain, previous nephrolithiasis and right ureteral stone. COMPARISON: 10/06/2020 FINDINGS: The lung bases are clear. There is mild fatty infiltration of the liver. The gallbladder is present. The spleen is unremarkable. The adrenals are normal. The pancreas is unremarkable. The previously noted kidney stones are partially obscured by IV contrast in the collecting systems. There is a 1.4 cm stone in the lower pole of the left kidney. There is a benign-appearing cyst arising from the lateral margin of the right kidney measuring 1.1 cm. The appendix is unremarkable. Urinary bladder is contracted. The previously noted stone in the distal right ureter is no longer seen. IMPRESSION: Resolution of previously noted obstructing distal right ureteral stone. Contrast in the collecting system partially obscuring previously noted kidney stones. Reviewed, Interpreted and Dictated by Cristofer Angeles MD Transcribed by Sharona Fleming Authenticated and [facility]
--- NOTE | 2024-03-31 07:52 | CT_ITS ---
FINAL REPORT TECHNIQUE: Axial CT images of the chest were obtained without contrast. Low-dose protocol was utilized. This study was performed with techniques to keep radiation doses as low as reasonably achievable (ALARA). Individualized dose reduction techniques using automated exposure control or adjustment of mA and/or kV according to the patient's size were employed. CLINICAL HISTORY: lung cancer screening Down to 1/2-1 ppd from 3ppd x 50 years COMPARISON: None FINDINGS: CT CHEST WITHOUT, LOW DOSE SCREENING CT Di Vol: 2.90 mGy DLP: 122.20 mGy*cm There is no axillary, mediastinal, or hilar adenopathy. The heart size is normal. Dense coronary artery calcifications are noted. There is no pleural or pericardial effusion. The lung windows show a 5 mm linear density along the left major fissure best seen on image 52 of series 4. There is scarring in the left upper lobe. Limited images of the upper abdomen demonstrate no acute findings. IMPRESSION: LR Category 2: 12 month follow-up low-dose chest CT is recommended. Reviewed, Interpreted and Dictated by Cristofer Angeles MD Transcribed by Sharona Fleming Authenticated and [facility]
[2024-03-31] MEDS: SODIUM CHLORIDE 0.9% 10ML SYR (RAD ONLY) 10 ML IV (08:21)
[2024-03-31] MEDS: IOPAMIDOL-370 (76%);100ML BOTTLE 75 ML IV (08:21)
== END 2024-03-31 23:59 | disposition home or self-care (01) ==
LOC: RAD 07:52
PROVIDERS: PCP Nurse Practitioner Family; Visit Provider Nurse Practitioner Family
DX: R10.9 Unspecified abdominal pain (principal); Z87.891 Personal history of nicotine dependence; Z12.2 Encounter for screening for malignant neoplasm of respiratory organs
CPT/HCPCS: 71271; 74178; Q9967

== ENCOUNTER 2024-04-17 08:47 | Emergency (ER) | payer MEDICARE, OTHER, SELFPAY ==
[2024-04-17 08:48] VITALS: BP 189/92; RESP 18; TEMP 36.5; O2SAT 96; BMI 32.8
[2024-04-17 08:57] VITALS: BP 154/82
--- NOTE | 2024-04-17 09:07 | ED_ITS ---
Discharge Plan Disposition Patient Disposition: Home, Self-Care Chief Complaint: Ear Prescriptions Prescriptions: No Action Arexvy (PF) 120 mcg/0.5 mL suspension for reconstitution 0.5 ml IM ONCE Qty: 10 0RF amlodipine 10 mg tablet 10 mg PO DAILY Qty: 90 3RF lisinopril 40 mg tablet 40 mg PO DAILY Qty: 90 3RF bisoprolol fumarate 5 mg tablet 5 mg PO DAILY Qty: 90 3RF famotidine [Pepcid] 20 mg tablet 20 mg PO BID Qty: 180 3RF mecobalamin (vitamin B12) 1,000 mcg tablet,disintegrating 1,000 mcg sublingual DAILY Qty: 90 3RF Rx Instructions: place tablet under tongue and allow to dissolve for at least30 secs before swallowing cholecalciferol (vitamin D3) 50 mcg (2,000 unit) capsule 50 mcg PO DAILY Qty: 90 3RF peg 3350-electrolytes [GaviLyte-G] 236-22.74-6.74 -5.86 gram recon soln 240 ml PO Q10M Qty: 4000 0RF Rx Instructions: follow mailed instructions. pharmacy may change prep if needed. ondansetron 4 mg Tablet,Disintegrating 4 mg PO Q8H PRN (Reason: Nausea) Qty: 12 0RF Referrals Follow up/Referrals: Kiera Castro APRN [Primary Care Provider] - See instructions Clinical Impressions Clinical Impression: Foreign body sensation in left ear canal Discharge ED Provider: Irvin Eastman General Adult HPI General Chief complaint: Ear Stated complaint: feels like something is in L ear Time Seen by Provider: 04/17/24 08:50 Mode of Arrival: Ambulatory Source of Information: Patient Limitations: No Limitations Description of Symptoms (Recalled from ER Triage Doc. by RN): Patient states he feels like something is in his left ear crawling for 3 days. History of Present Illness HPI narrative: Please note that above description of symptoms, in this electronic medical record under categorization of recalled from ER triage doctor by RN are reflective of an initial nursing assessment, however, is not reflective of my full history and physical exam that was personally taken and clarified. Consequentially, this preceding description of symptoms, which may include the patient's categorized chief complaint in the EMR, do not reflect my personal clinical impression, and the ultimate description of history of present illness and patient stated complaints should be deferred to this section of the note. Unless stated otherwise or congruent with this section of the note, additional signs, symptoms, or incongruence should be interpreted as inaccurate with my clinical impression. Related Data Previous Rx's Medication Instructions Recorded RSVPreF3 antigen-AS01E 0.5 ml IM ONCE #10 ea 12/09/23 adjuvant(PF) 120 mcg/0.5 mL IM suspension, kit (Arexvy (PF)) ondansetron 4 mg disintegrating 4 mg PO Q8H PRN Nausea #12 tabs 02/24/24 tablet amlodipine 10 mg tablet 10 mg PO DAILY #90 tabs 03/10/24 bisoprolol fumarate 5 mg tablet 5 mg PO DAILY #90 tabs 03/10/24 famotidine 20 mg tablet (Pepcid) 20 mg PO BID #180 tabs 03/10/24 lisinopril 40 mg tablet 40 mg PO DAILY BLOOD PRESSURE #90 03/10/24 tabs cholecalciferol (vitamin D3) 50 50 mcg PO DAILY #90 caps 03/13/24 mcg (2,000 unit) capsule mecobalamin (vitamin B12) 1,000 1,000 mcg sublingual DAILY #90 tabs 03/13/24 mcg disintegrating tablet,sublingual peg 3350-electrolytes 236 240 ml PO Q10M bowel prep #4,000 mL 04/03/24 gram-22.74 gram-6.74 gram-5.86 gram solution (GaviLyte-G) Allergies Allergy/AdvReac Type Severity Reaction Status Date / Time No Known Allergies Allergy Verified 03/10/24 08:36 [facility] Disclaimer: The information contained in this section may have been updated after the patient was seen, as this information can be updated by other users. 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 (Updated 04/17/24 @ 09:09 by Irvin Eastman MD) Chest pain Abdominal pain Left flank pain Left sided abdominal pain Fatigue Need for RSV immunization Bronchitis Thoracic back pain Neck pain Cervical radiculopathy Acute viral syndrome Pharyngitis Generalized body aches Sinusitis Scalp irritation Eustachian tube dysfunction Cervical radiculopathy Bilateral arm pain Bilateral shoulder pain Neck pain Angina at rest Shoulder pain Neck pain Nerve damage Hypertension Exposure to COVID-19 virus Corneal abrasion Amputation of finger tip Urethral colic due to calculus Renal colic on right side Surgical History Hx of inguinal hernia repair History of shoulder surgery History of neck surgery History of knee surgery Family History Other No significant family 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 Smoking Status: Current every day smoker tobacco type: cigarettes packs per day: 1 quit status: has quit before alcohol intake: never substance use type: denies use current occupational status: retired Travel in the last 8 weeks: None adopted: No caregiver/support person: No foster care: No household members: friend(s) housing: apartment lives independently: Yes marital status: single number of children: 3 number of grandchildren: 7 service: Yes (discharged 1985) branch: [employer]: No ROS Obtained: Yes All systems reviewed & no additional complaints except as documented Physical Exam General General appearance: alert and in no apparent distress Head Head exam: atraumatic and normocephalic Eye Eye exam: Present normal appearance, PERRL and EOMI ENT ENT exam: Present mucous membranes moist, TM's normal bilaterally and normal external ear exam (Moderate amount of cerumen left external auditory canal as compared) Neck Neck exam: Present normal inspection, full ROM and trachea midline Respiratory Respiratory exam: Absent respiratory distress, wheezes, stridor, accessory muscle use or prolonged expiratory phase Cardiovascular Cardiovascular exam: Present normal rhythm Abdominal Exam Abdominal exam: Present soft; Absent distention, tenderness, guarding, rebound or rigidity Extremities Exam Extremities exam: Absent edema Neurological Exam Neurological exam: Present alert, oriented X3, CN II-XII intact and normal gait; Absent motor sensory deficit Skin Skin exam: Present warm and dry; Absent diaphoresis or erythema Medical Decision Making Medical Records Medical records reviewed: Yes I reviewed the patient's medical records. Kalpesh Inquiry Pt receiving controlled substance: No Kalpesh was queried for this patient: No Vital Signs: 04/17/24 08:48 04/17/24 08:57 Temperature 97.7 F Temperature Source Oral Respiratory Rate 18 Blood Pressure 154/82 H Blood Pressure [Right Arm] 189/92 H Blood Pressure Mean [Right Arm] 124 Blood Pressure Source Automatic Cuff Blood Pressure Source [Right Arm] Automatic Cuff 02 Sat by Pulse Oximetry 96 Oxygen Delivery Method Room Air Medical Decision Narrative: Is a 63-year-old male no relevant medical history presenting with concern for buzzing in his left ear. Has been going on the last couple of nights. Noticed that it gets worse when he lays down, better when he is sitting up. Feels as if there is something in his ear, likely a bug. No right ear symptoms. No neurologic symptoms otherwise. History obtained with patient. On arrival, patient very well-appearing. Left external auditory canal has moderate amount of cerumen, as compared to right. Because no foreign body, patient requesting to have left ear irrigated. This was done performed peroxide and water. Because patient at baseline without signs or symptoms of clinical decompensation, deemed appropriate for discharge. Results were relayed to patient who voiced understanding and were agreeable to outpatient management and follow up. I discussed my clinical impression with patient and answered all questions. At this time, the evidence for any other entities in the d ifferential is insufficient to warrant any further testing or ED observation. This was explained as well. Advisory was given that persistent or worsening symptoms require further evaluation. I confirmed the understanding of this discussion. Cylinder Block Mechanic disclaimer Much of this encounter note is an electronic linux security administrator spoken language to printed text. Electronic linux security administrator of the spoken language may permit errors. Although I have reviewed the note, some errors may still exist. Critical Care Critical Care Time Critical Care Time: No
[2024-04-17 09:10] VITALS: BP 154/82; PULSE 62; RESP 18; TEMP 36.3; O2SAT 98
== END 2024-04-17 09:12 | disposition home or self-care (01) ==
PROVIDERS: Emergency Provider Emergency Medicine; PCP Nurse Practitioner Family
DX: R09.A9 Foreign body sensation, other site (principal); H61.22 Impacted cerumen, left ear
CPT/HCPCS: 99283

== ENCOUNTER 2024-04-22 08:05 | Emergency (ER) | payer MEDICARE, OTHER, SELFPAY ==
[2024-04-22 08:07] VITALS: BP 192/80; PULSE 65; RESP 18; TEMP 36.8; O2SAT 99; BMI 32.3
[2024-04-22 08:15] VITALS: PULSE 61; O2SAT 100
--- NOTE | 2024-04-22 08:18 | PC.NURSE ---
DR MCKENZIE AT BEDSIDE
--- NOTE | 2024-04-22 08:19 | XR_ITS ---
FINAL REPORT CLINICAL HISTORY: heel pain non traumatic FINDINGS: Right foot Three views were obtained. There is no acute fracture or dislocation. There are mild degenerative changes. There is a small loose body medial to the 1st metatarsophalangeal joint. Calcaneal spurs are noted. IMPRESSION: Loose body medial to the 1st metatarsophalangeal joint. Reviewed, Interpreted and Dictated by Augie Baumann III, MD Transcribed by Mirella Bowens Authenticated and [facility]
--- NOTE | 2024-04-22 08:25 | PC.NURSE ---
PT TO XR
--- NOTE | 2024-04-22 08:34 | PC.NURSE ---
PT RETURNED FROM XR
[2024-04-22] MEDS: IBUPROFEN 400 MG TABLET 800 MG PO (08:35)
--- NOTE | 2024-04-22 08:36 | PC.NURSE ---
DR MCKENZIE AT BEDSIDE TO UPDATE PT
[2024-04-22 08:46] VITALS: BP 169/79; PULSE 60; RESP 18; TEMP 36.8; O2SAT 99
--- NOTE | 2024-04-22 09:05 | HMH.EDGENADL ---
Discharge Plan Disposition Patient Disposition: Home, Self-Care Prescriptions Prescriptions: No Action Arexvy (PF) 120 mcg/0.5 mL suspension for reconstitution 0.5 ml IM ONCE Qty: 10 0RF amlodipine 10 mg tablet 10 mg PO DAILY Qty: 90 3RF lisinopril 40 mg tablet 40 mg PO DAILY Qty: 90 3RF bisoprolol fumarate 5 mg tablet 5 mg PO DAILY Qty: 90 3RF famotidine [Pepcid] 20 mg tablet 20 mg PO BID Qty: 180 3RF mecobalamin (vitamin B12) 1,000 mcg tablet,disintegrating 1,000 mcg sublingual DAILY Qty: 90 3RF Rx Instructions: place tablet under tongue and allow to dissolve for at least30 secs before swallowing cholecalciferol (vitamin D3) 50 mcg (2,000 unit) capsule 50 mcg PO DAILY Qty: 90 3RF peg 3350-electrolytes [GaviLyte-G] 236-22.74-6.74 -5.86 gram recon soln 240 ml PO Q10M Qty: 4000 0RF Rx Instructions: follow mailed instructions. pharmacy may change prep if needed. ondansetron 4 mg Tablet,Disintegrating 4 mg PO Q8H PRN (Reason: Nausea) Qty: 12 0RF Referrals Follow up/Referrals: Manuela Garner DPM [Staff Physician] - See instructions Kiera Castro APRN [Primary Care Provider] - See instructions Activity Restrictions/Add. Instructions Additional Instructions/Restrictions: Please ice your foot as discussed and use supportive shoe inserts as we discussed as well. You may take 800 mg of ibuprofen 3 times a day as needed for pain and swelling. Return with any spreading redness fevers or other concerns. Also please follow-up with our sports internship. Clinical Impressions Clinical Impression: Plantar fasciitis, Heel spur Discharge ED Provider: Sean Beavers General Adult HPI General Chief complaint: PAIN Stated complaint: Pain in R foot Time Seen by Provider: 04/22/24 08:15 Mode of Arrival: Ambulatory Source of Information: Patient Limitations: No Limitations Description of Symptoms (Recalled from ER Triage Doc. by RN): PT C/O RIGHT FOOT PAIN X 2 WEEKS, NO KNOWN INJURY. History of Present Illness HPI narrative: Patient is a 63-year-old male presenting today with right foot pain nontraumatic. Denies any redness fevers swelling etc. States the pain is located just at the base of the foot around the heel location. Related Data Previous Rx's Medication Instructions Recorded RSVPreF3 antigen-AS01E 0.5 ml IM ONCE #10 ea 12/09/23 adjuvant(PF) 120 mcg/0.5 mL IM suspension, kit (Arexvy (PF)) ondansetron 4 mg disintegrating 4 mg PO Q8H PRN Nausea #12 tabs 02/24/24 tablet amlodipine 10 mg tablet 10 mg PO DAILY #90 tabs 03/10/24 bisoprolol fumarate 5 mg tablet 5 mg PO DAILY #90 tabs 03/10/24 famotidine 20 mg tablet (Pepcid) 20 mg PO BID #180 tabs 03/10/24 lisinopril 40 mg tablet 40 mg PO DAILY BLOOD PRESSURE #90 03/10/24 tabs cholecalciferol (vitamin D3) 50 50 mcg PO DAILY #90 caps 03/13/24 mcg (2,000 unit) capsule mecobalamin (vitamin B12) 1,000 1,000 mcg sublingual DAILY #90 tabs 03/13/24 mcg disintegrating tablet,sublingual peg 3350-electrolytes 236 240 ml PO Q10M bowel prep #4,000 mL 04/03/24 gram-22.74 gram-6.74 gram-5.86 gram solution (GaviLyte-G) Allergies Allergy/AdvReac Type Severity Reaction Status Date / Time No Known Allergies Allergy Verified 03/10/24 08:36 [facility] Disclaimer: The information contained in this section may have been updated after the patient was seen, as this information can be updated by other users. 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 (Updated 04/22/24 @ 08:43 by Sean Beavers MD) Chest pain Abdominal pain Left flank pain Left sided abdominal pain Fatigue Need for RSV immunization Bronchitis Thoracic back pain Neck pain Cervical radiculopathy Acute viral syndrome Pharyngitis Generalized body aches Sinusitis Scalp irritation Eustachian tube dysfunction Cervical radiculopathy Bilateral arm pain Bilateral shoulder pain Neck pain Angina at rest Shoulder pain Neck pain Nerve damage Hypertension Exposure to COVID-19 virus Corneal abrasion Amputation of finger tip Urethral colic due to calculus Renal colic on right side Surgical History Hx of inguinal hernia repair History of shoulder surgery History of neck surgery History of knee surgery Family History Other No significant family 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 Smoking Status: Current every day smoker tobacco type: cigarettes packs per day: 1 quit status: has quit before alcohol intake: never substance use type: denies use current occupational status: retired Travel in the last 8 weeks: None adopted: No caregiver/support person: No foster care: No household members: friend(s) housing: apartment lives independently: Yes marital status: single number of children: 3 number of grandchildren: 7 service: Yes (discharged 1985) branch: [employer]: No ROS Obtained: Yes All systems reviewed & no additional complaints except as documented Physical Exam General General appearance: alert Respiratory Respiratory exam: Present normal lung sounds bilaterally Cardiovascular Cardiovascular exam: Present regular rate Extremities Exam Extremities exam: Present other (On the right foot there is tenderness over the plantar fascia particularly at its insertion of the calcaneus no swelling erythema warmth etc.) Neurological Exam Neurological exam: Present alert and oriented X3 Medical Decision Making Kalpesh Inquiry Pt receiving controlled substance: No Vital Signs: 04/22/24 08:07 04/22/24 08:15 04/22/24 08:46 Temperature 98.3 F 98.3 F Temperature Source Oral Oral Pulse Rate 61 60 Pulse Rate [Radial] 65 Respiratory Rate 18 18 Blood Pressure 169/79 H Blood Pressure [Right Arm] 192/80 H Blood Pressure Mean [Right Arm] 117 Blood Pressure Source Automatic Cuff Blood Pressure Source [Right Arm] Automatic Cuff Blood Pressure Position Sitting Blood Pressure Position [Right Arm] Sitting 02 Sat by Pulse Oximetry 99 100 Oxygen Delivery Method Room Air Room Air Orders (Tests/Meds): ED MEDICATIONS Discontinued Medications Generic Name Dose Route Start Last Admin Trade Name Freq PRN Reason Stop Dose Admin Ibuprofen 800 mg 04/22/24 08:19 04/22/24 08:35 Ibuprofen 400 Mg Tablet PO 04/22/24 08:20 800 mg ONCE ONE Administration ORDERS Category Date Time Status Foot XR right minimum 3 views [XR foot RT min 3V] Stat Exams 04/22/24 08:19 Taken Medical Decision Narrative: 63-year-old male presents today with symptoms consistent with plantar fasciitis x-ray performed which demonstrated no bony abnormality aside from a heel spur. Patient has been advised to roll ice onto his foot and to take anti-inflammatory medications and use supportive shoes and inserts. He will follow-up podiatry I am not concerned about any infectious etiology or alternative pathology. Critical Care Critical Care Time Critical Care Time: No
== END 2024-04-22 08:50 | disposition home or self-care (01) ==
PROVIDERS: Emergency Provider Student in an Organized Health Care Education/Training Program; PCP Nurse Practitioner Family
DX: M79.671 Pain in right foot; M77.31 Calcaneal spur, right foot; M72.2 Plantar fascial fibromatosis; F17.210 Nicotine dependence, cigarettes, uncomplicated
CPT/HCPCS: 73630; 99283

== ENCOUNTER 2024-05-13 14:15 | Outpatient (CLI) | payer MEDICARE, OTHER, SELFPAY ==
--- NOTE | 2024-05-13 14:22 | US_ITS ---
FINAL REPORT CLINICAL HISTORY: screening AAA COMPARISON: None FINDINGS: Sonographic images were obtained of the abdominal aorta. There is ectasia of the proximal abdominal aorta, measuring up to 3.1 cm in size. At this level there is also either a focal plaque or mural thrombus. The common iliac arteries are within normal limits. 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 There is also focal plaque or mural thrombus at this level, and CTA would be helpful for further evaluation. Reviewed, Interpreted and Dictated by Augie Baumann III, MD Transcribed by Valerie Duckworth Authenticated and [facility]
--- NOTE | 2024-05-13 14:22 | XR_ITS ---
FINAL REPORT TECHNIQUE: Bone densitometry calculations of the lumbar spine and left hip were obtained. CLINICAL HISTORY: osteoporosis screening FINDINGS: Using L1-4, the bone mineral density of the spine is 1.066 g/cm2, corresponding to T-score of -0.2. Using the left hip, the bone mineral density of the femoral neck is 0.883 g/cm2, corresponding to a T-score of -0.3. NOTE: T-score: Standard deviation compared with peak bone mass of young adult mean. *Following the recommendations of the International Society of Bone densitometry, classification of hip BMD is based on the lower of two T-scores; total hip or femoral neck. IMPRESSION: Normal bone mineral density of the lumbar spine and hip. Authenticated and [facility]
== END 2024-05-13 23:59 | disposition home or self-care (01) ==
PROVIDERS: PCP Nurse Practitioner Family; Visit Provider Nurse Practitioner Family
DX: M81.0 Age-related osteoporosis without current pathological fracture (principal); Z13.820 Encounter for screening for osteoporosis; Z13.6 Encounter for screening for cardiovascular disorders; F17.210 Nicotine dependence, cigarettes, uncomplicated
CPT/HCPCS: 76705; 77080

== ENCOUNTER 2024-06-03 12:56 | Outpatient (CLI) | payer MEDICARE, OTHER, SELFPAY ==
--- NOTE | 2024-06-03 12:56 | CT_ITS ---
FINAL REPORT TECHNIQUE: Thin section axial CT with contrast with multiplanar reconstruction. This study was performed with techniques to keep radiation doses as low as reasonably achievable (ALARA). Individualized dose reduction techniques using automated exposure control or adjustment of mA and/or kV according to the patient's size were employed. CLINICAL HISTORY: Ectasia of the proximal abdominal aorta FINDINGS: There is no evidence of thoracic aortic aneurysm. The ascending aorta measures 37 mm. There is no evidence of dissection. No pulmonary mass or infiltrate is present. Mild emphysematous change is identified. There is no significant pleural effusion. There is no significant pericardial effusion. There is mild adenopathy in the AP window, stable with lymph nodes measuring up to 13 mm. IMPRESSION: No evidence of thoracic aortic aneurysm. Mild emphysema without acute lung disease. Reviewed, Interpreted and Dictated by Michael Mcdonnell MD Transcribed by Mirella Bowens Authenticated and [facility]
[2024-06-03 13:19] LABS: Blood Urea Nitrogen 11 mg/dl (9-20); Estimated Glomerular Filt Rate 85 ml/min (>60); GFR (African American) 102 ML/MIN (>60)
== END 2024-06-03 23:59 | disposition home or self-care (01) ==
LOC: RAD 12:56
PROVIDERS: PCP Nurse Practitioner Family; Visit Provider Nurse Practitioner Family
DX: I77.811 Abdominal aortic ectasia (principal)
CPT/HCPCS: 36415; 71275; 82565; 84520; Q9967

== ENCOUNTER 2024-09-28 09:46 | Outpatient (CLI) | payer MEDICARE, OTHER, SELFPAY ==
[2024-09-28 10:36] LABS: Blood Urea Nitrogen 21 mg/dl (9-20); Estimated Glomerular Filt Rate 97 ml/min (>60); GFR (African American) 117 ML/MIN (>60)
[2024-09-29 03:53] LABS: PSA, Free 0.41 ng/mL; Prostate Specific Ag 0.6 ng/mL (0.0-4.0); Sex Hormone Binding Globulin 37.3 nmol/L (19.3-76.4); Testosterone,Total 415 ng/dL (264-916)
== END 2024-09-28 23:59 | disposition home or self-care (01) ==
LOC: LAB 09:47
PROVIDERS: PCP Nurse Practitioner Family; Visit Provider Urology
DX: N52.9 Male erectile dysfunction, unspecified (principal); N40.2 Nodular prostate without lower urinary tract symptoms
CPT/HCPCS: 36415; 82565; 84153; 84154; 84270; 84403; 84520

== ENCOUNTER 2025-01-27 12:33 | Emergency (ER) | payer MEDICARE, OTHER, SELFPAY ==
[2025-01-27 12:36] VITALS: BP 164/89; PULSE 66; RESP 18; TEMP 36.6; O2SAT 100; BMI 33.0
--- NOTE | 2025-01-27 12:36 | ED_ITS ---
Discharge Plan Disposition Patient Disposition: Home, Self-Care Condition: Good Prescriptions Prescriptions: New cephalexin 500 mg capsule 500 mg PO BID 7 Days Qty: 14 0RF No Action amlodipine 10 mg tablet 10 mg PO DAILY Qty: 90 3RF lisinopril 40 mg tablet 40 mg PO DAILY Qty: 90 3RF bisoprolol fumarate 5 mg tablet 5 mg PO DAILY Qty: 90 3RF famotidine [Pepcid] 20 mg tablet 20 mg PO BID Qty: 180 3RF ondansetron 4 mg tablet,disintegrating 4 mg PO Q6H Qty: 12 0RF Rx Instructions: Take 1 tab sublingual every 6 hours, starting 24 hours prior to the initiation of prep. Continue throughout the day while drinking bowel prep. tamsulosin [Flomax] 0.4 mg capsule 0.4 mg PO DAILY Qty: 30 3RF tadalafil [Cialis] 5 mg tablet 5 mg PO DAILY Qty: 30 2RF mecobalamin (vitamin B12) 1,000 mcg tablet,disintegrating 1,000 mcg sublingual DAILY Qty: 90 3RF Rx Instructions: place tablet under tongue and allow to dissolve for at least30 secs before swallowing cholecalciferol (vitamin D3) 50 mcg (2,000 unit) capsule 50 mcg PO DAILY Qty: 90 3RF sodium,potassium,mag sulfates [Suprep Bowel Prep Kit] 17.5-3.13-1.6 gram recon soln See Rx Instructions PO .COMPLEX Qty: 354 0RF Rx Instructions: DILUTE; drink full amount early evening before AND next morning at least 4-5 hr before procedure; follow w 960 mL water PO Referrals Follow up/Referrals: Kiera Castro APRN [Primary Care Provider] - See instructions Activity Restrictions/Add. Instructions Additional Instructions/Restrictions: As we discussed she may wash with soap and water later today. I recommend not putting an occlusive dressing over top of it to allow the scab to form. I am giving you an antibiotic considering that you went through a screen door in the middle is likely dirty. However if you have increased redness pain swelling or drainage follow-up with your PCP return to the ER as needed. Clinical Impressions Clinical Impression: Abrasion of multiple sites of hand and finger Qualifiers: Encounter type: initial encounter Laterality: left Qualified Code(s): S60.512A - Abrasion of left hand, initial encounter Instructions Patient Instructions: DI for Abrasion Print Language Print Language: Bol[place]ian Discharge ED Provider: Tang Sifuentes General Adult HPI <JAIME Hopson - Last Filed: 01/27/25 13:54> General Chief complaint: Wound/Laceration Stated complaint: AO-1215 hours- laceration to L hand Time Seen by Provider: 01/27/25 12:36 History of Present Illness HPI narrative: Patient presents for evaluation of a left hand injury. Patient states that he tripped and accidentally pushed his hand through a screen door. The screen was metal. He did not fall did not suffer any injury but suffered scrapes on his left arm from his hand forearm and upper arm. He initially treated it with soap and water and Band-Aids however the hand abrasions Bleeding so presented to the ER for evaluation. He has no loss of motor or sensory there is no painful range of motion. Related Data Previous Rx's ?Medication ?Instructions ?Recorded amlodipine 10 mg tablet 10 mg PO DAILY #90 tabs 03/10/24 bisoprolol fumarate 5 mg tablet 5 mg PO DAILY #90 tabs 03/10/24 famotidine 20 mg tablet (Pepcid) 20 mg PO BID #180 tabs 03/10/24 lisinopril 40 mg tablet 40 mg PO DAILY BLOOD PRESSURE #90 03/10/24 tabs cholecalciferol (vitamin D3) 50 50 mcg PO DAILY #90 caps 03/13/24 mcg (2,000 unit) capsule mecobalamin (vitamin B12) 1,000 1,000 mcg sublingual DAILY #90 tabs 03/13/24 mcg disintegrating tablet,sublingual tadalafil 5 mg tablet (Cialis) 5 mg PO DAILY #30 tabs 09/28/24 tamsulosin 0.4 mg capsule (Flomax) 0.4 mg PO DAILY #30 caps 09/28/24 ondansetron 4 mg disintegrating 4 mg PO Q6H #12 tabs 09/29/24 tablet sodium,potassium,mag sulfates 17.5 See Rx Instructions PO .COMPLEX 11/26/24 gram-3.13 gram-1.6 gram oral soln #354 mL (Suprep Bowel Prep Kit) cephalexin 500 mg capsule 500 mg PO BID 7 days #14 caps 01/27/25 Allergies Allergy/AdvReac Type Severity Reaction Status Date / Time No Known Allergies Allergy Verified 09/29/24 12:33 [facility] <JAIME Hopson - Last Filed: 01/27/25 13:54> [facility] Disclaimer: The information contained in this section may have been updated after the patient was seen, as this information can be updated by other users. 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 Chest pain Abdominal pain Left flank pain Left sided abdominal pain Fatigue Need for RSV immunization Bronchitis Thoracic back pain Neck pain Cervical radiculopathy Acute viral syndrome Pharyngitis Generalized body aches Sinusitis Scalp irritation Eustachian tube dysfunction Cervical radiculopathy Bilateral arm pain Bilateral shoulder pain Neck pain Angina at rest Shoulder pain Neck pain Nerve damage Hypertension Exposure to COVID-19 virus Corneal abrasion Amputation of finger tip Urethral colic due to calculus Renal colic on right side Surgical History Hx of inguinal hernia repair History of shoulder surgery History of neck surgery History of knee surgery Family History Other No significant family 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 Smoking Status: Former smoker tobacco type: cigarettes packs per day: 1 quit status: has quit before alcohol intake: never substance use type: denies use current occupational status: retired Travel in the last 8 weeks: None adopted: No caregiver/support person: No foster care: No household members: friend(s) housing: apartment lives independently: Yes marital status: single number of children: 3 number of grandchildren: 7 service: Yes (discharged 1985) 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 [facility]: No Have you lived/traveled outside [place] in past 30 days?: No Contact w/someone who lives/traveled outside US past 30 days?: No Exposure to someone with infectious disease in past 14 days?: No Do you have a fever (greater than 100.4 F or 38 C)?: No Have you tested positive for COVID-19: No Exposed to someone with COVID-19 in past 14 days?: No Do you have a sore throat?: No Do you have a cough?: No Do you have any weakness?: No Do you have any diarrhea?: No Are you experiencing any unusual bleeding?: No Do you have any muscle aches/pain?: No Do you have any abdominal pain?: No Are you experiencing loss of taste or smell?: No Other 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 Have you received the Flu Vaccine for this season: No Have you received the Pneumonia Vaccine: No <JAIME Hopson - Last Filed: 01/27/25 13:54> ROS Obtained: Yes Systems reviewed as appropriate & no additional complaints except as documented Physical Exam <JAIME Hopson - Last Filed: 01/27/25 13:54> General General appearance: alert and in no apparent distress Respiratory Respiratory exam: Present normal lung sounds bilaterally Cardiovascular Cardiovascular exam: Present regular rate Neurological Exam Neurological exam: Present alert and oriented X3 Medical Decision Making <JAIME Hopson - Last Filed: 01/27/25 13:54> Medical Records Screening: Per USPSTF and CDC recommendations, given the prevalence of disease in our region, it is our hospital?s policy to screen for HIV and viral Hepatitis for all patients aged 18 and over and those with ongoing risk factors. Kalpesh Inquiry Pt receiving controlled substance: No Vital Signs: 01/27/25 12:36 01/27/25 13:03 01/27/25 13:05 Temperature 98 F 98 F Temperature Source Oral Oral Pulse Rate 60 78 Pulse Rate [Right] 66 Respiratory Rate 18 20 Blood Pressure 116/51 L 160/80 H Blood Pressure [Right Arm] 164/89 H Blood Pressure Mean [Right Arm] 114 Blood Pressure Source Automatic Cuff Blood Pressure Source [Right Arm] Automatic Cuff Blood Pressure Position [Right Arm] Sitting 02 Sat by Pulse Oximetry 100 97 Oxygen Delivery Method Room Air Room Air Medical Decision Narrative: In summary patient is a 64-year-old male who presents to the emergency department for evaluation of left upper extremity injury. Patient is hemodynamically stable upon arrival, afebrile. Physical exam is remarkable for several skin tears/abrasion wounds on the dorsum of his left hand, 2 on his distal dorsal forearm and 1 on his mid lateral upper arm. There are not punctures but there is no tissue remaining to cover. The ones on the dorsum of the hand are having capillary ooze.. Patient has full range of motion has no loss of motor or sensory and is neurovascularly intact distally.. Differential diagnosis would include puncture versus deep structure involvement however wounds are very clearly extremely superficial thus other alternative diagnosis is not pursued. Initial workup was considered with labs and imaging however patient is having no focal deficits has full range of motion in toes no red flags for deeper structural injury thus deferred. Initial interventions would include Tdap however patient is up-to-date on his tetanus thus deferred. Given this the wound is already been cleaned used soap and water and then utilizing Surgicel again hemostasis for the 4 skin avulsions. Given that the patient was exposed to a dirty screen and we will start the patient on Keflex. He was given strict return precautions and wound care instructions by myself. Patient to follow-up with PCP for new continuing or worsening signs or symptoms or return to the ER as needed. <Tang Sifuentes MD - Last Filed: 01/27/25 20:54> Vital Signs: 01/27/25 12:36 01/27/25 13:03 01/27/25 13:05 Temperature 98 F 98 F Temperature Source Oral Oral Pulse Rate 60 78 Pulse Rate [Right] 66 Respiratory Rate 18 20 Blood Pressure 116/51 L 160/80 H Blood Pressure [Right Arm] 164/89 H Blood Pressure Mean [Right Arm] 114 Blood Pressure Source Automatic Cuff Blood Pressure Source [Right Arm] Automatic Cuff Blood Pressure Position [Right Arm] Sitting 02 Sat by Pulse Oximetry 100 97 Oxygen Delivery Method Room Air Room Air Medical Decision Narrative: In summary patient is a 64-year-old male who presents to the emergency department for evaluation of left upper extremity injury. Patient is hemodynamically stable upon arrival, afebrile. Physical exam is remarkable for several skin tears/abrasion wounds on the dorsum of his left hand, 2 on his distal dorsal forearm and 1 on his mid lateral upper arm. There are not punctures but there is no tissue remaining to cover. The ones on the dorsum of the hand are having capillary ooze.. Patient has full range of motion has no loss of motor or sensory and is neurovascularly intact distally.. Differential diagnosis would include puncture versus deep structure involvement however wounds are very clearly extremely superficial thus other alternative diagnosis is not pursued. Initial workup was considered with labs and imaging however patient is having no focal deficits has full range of motion in toes no red flags for deeper structural injury thus deferred. Initial interventions would include Tdap however patient is up-to-date on his tetanus thus deferred. Given this the wound is already been cleaned used soap and water and then utilizing Surgicel again hemostasis for the 4 skin avulsions. Given that the patient was exposed to a dirty screen and we will start the patient on Keflex. He was given strict return precautions and wound care instructions by myself. Patient to follow-up with PCP for new continuing or worsening signs or symptoms or return to the ER as needed. I was consulted by the HECTOR, and we discussed the complexity of the problems being addressed. I approve the treatment and management plan for this patient's care in the emergency department, thus performing a substantive portion of the medical decision making. Tang Sifuentes MD Critical Care <JAIME Hopson - Last Filed: 01/27/25 13:54> Critical Care Time Critical Care Time: No
--- NOTE | 2025-01-27 12:42 | PC.NURSE ---
Van SANDOVAL at bedside
[2025-01-27 13:03] VITALS: BP 116/51; PULSE 60; O2SAT 97
[2025-01-27 13:05] VITALS: BP 160/80; PULSE 78; RESP 20; TEMP 36.6; O2SAT 98
== END 2025-01-27 13:09 | disposition home or self-care (01) ==
PROVIDERS: Emergency Provider Student in an Organized Health Care Education/Training Program; PCP Nurse Practitioner Family
DX: M79.642 Pain in left hand (principal); M79.602 Pain in left arm; F17.210 Nicotine dependence, cigarettes, uncomplicated; W01.0XXA Fall on same level from slipping, tripping and stumbling without subsequent striking against object, initial encounter; Y93.89 Activity, other specified; Y92.009 Unspecified place in unspecified non-institutional (private) residence as the place of occurrence of the external cause
CPT/HCPCS: 99283

== ENCOUNTER 2025-02-13 16:36 | Inpatient (IN) | payer MEDICARE, OTHER, SELFPAY ==
[2025-02-13] VITALS (12 sets, daily range): BP systolic 133–167; BP diastolic 51–89; PULSE 60–77; RESP 15–21; TEMP 36.7; O2SAT 92–98; BMI 32.5
--- NOTE | 2025-02-13 16:38 | ECG_ITS ---
APPROVED REPORT Exam: Resting ECG HR:74 bpm ECG Measurements Heart Rate 74 AXES AL 155 P 50 QRSd 105 QRS 44 QT 375 T 61 QTc 403 Conclusion Sinus rhythm Elevations in aVR with lateral and inferior ST depressions Electronically signed by : MAMTA JACKSON, 02/13/2025 23:08:45
--- NOTE | 2025-02-13 16:38 | PC.NURSE ---
ZANA ROSE AT BEDSIDE
--- NOTE | 2025-02-13 16:42 | XR_ITS ---
PROCEDURE INFORMATION: Exam: XR Chest Exam date and time: 02/13/2025 4:55 PM Age: 64 years old Clinical indication: Pain; Chest pressure; Additional info: Chest pain TECHNIQUE: Imaging protocol: Radiologic exam of the chest. Views: 1 view. COMPARISON: CT ANGIO CHEST 06/03/2024 1:35 PM FINDINGS: Lungs: Unremarkable. No consolidation. Pleural spaces: Unremarkable. No pleural effusion. No pneumothorax. Heart/Mediastinum: Cardiomegaly. Bones/joints: Unremarkable. IMPRESSION: Cardiomegaly. No acute process.
--- NOTE | 2025-02-13 16:45 | ED_ITS ---
Discharge Plan Disposition Patient Disposition: Admitted Clinical Impressions Clinical Impression: Chest pain, Non-ST elevation UT (NSTEMI), Angina pectoris Discharge ED Provider: Irvin Eastman HPI <Alexia Nelson ([facility]), [employer] - Last Filed: 02/13/25 18:14> General Chief Complaint: Chest Pain Stated Complaint: chest pain Time Seen by Provider: 02/13/25 16:42 History of Present Illness HPI narrative: 64-year-old male presents for chest pain, tightness, dizziness, and nausea for 3 to 4 days. Patient states symptoms only with exertion. Patient states if he walks or does any activity at all his chest gets tight starts having pain becomes nauseous and dizzy and feels like he is going to pass out. Patient states no workup, smoker sister has cardiac issues. Patient states he put off coming to the ER because he thought it was anxiety due to his girlfriend's recent passing. Patient states he has been coughing up clear sputum. MD complaint: chest pain indicative of cardiac Onset (ago): day(s) (3-4) Duration: intermittent Activity at onset: during exertion, light activity and emotional stress event Pain location: left chest Severity: moderate Quality: tightness Treatments prior to or on arrival for Cardiac Chest Pain: none Related Data Home Medications ?Medication ?Instructions ?Recorded ?Confirmed tadalafil 5 mg tablet (Cialis) 5 mg PO DAILYP PRN ED 02/13/25 02/13/25 Previous Rx's ?Medication ?Instructions ?Recorded amlodipine 10 mg tablet 10 mg PO DAILY #90 tabs 03/10/24 bisoprolol fumarate 5 mg tablet 5 mg PO DAILY #90 tabs 03/10/24 famotidine 20 mg tablet (Pepcid) 20 mg PO BID #180 tabs 03/10/24 lisinopril 40 mg tablet 40 mg PO DAILY BLOOD PRESSURE #90 03/10/24 tabs tamsulosin 0.4 mg capsule (Flomax) 0.4 mg PO DAILY #30 caps 09/28/24 Allergies Allergy/AdvReac Type Severity Reaction Status Date / Time No Known Allergies Allergy Verified 09/29/24 12:33 PFSH <Alexia Nelson ([facility]), [employer] - Last Filed: 02/13/25 18:14> PFS Disclaimer: The information contained in this section may have been updated after the patient was seen, as this information can be updated by other users. 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 , [employer]) Chest pain Abdominal pain Left flank pain Left sided abdominal pain Fatigue Need for RSV immunization Bronchitis Thoracic back pain Neck pain Cervical radiculopathy Acute viral syndrome Pharyngitis Generalized body aches Sinusitis Scalp irritation Eustachian tube dysfunction Cervical radiculopathy Bilateral arm pain Bilateral shoulder pain Neck pain Angina at rest Shoulder pain Neck pain Nerve damage Hypertension Exposure to COVID-19 virus Corneal abrasion Amputation of finger tip Urethral colic due to calculus Renal colic on right side Surgical History , [employer]) Hx of inguinal hernia repair History of shoulder surgery History of neck surgery History of knee surgery Family History , [employer]) No significant family 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 , [employer]) Smoking Status: Current every day smoker tobacco type: cigarettes packs per day: 1 quit status: has quit before alcohol intake: never substance use type: denies use current occupational status: retired Travel in the last 8 weeks: None adopted: No caregiver/support person: No foster care: No household members: friend(s) housing: apartment lives independently: Yes marital status: single number of children: 3 number of grandchildren: 7 service: Yes (discharged 1985) 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 correction: No Have you lived/traveled outside [place] in past 30 days?: No Contact w/someone who lives/traveled outside US past 30 days?: No Exposure to someone with infectious disease in past 14 days?: No Do you have a fever (greater than 100.4 F or 38 C)?: No Have you tested positive for COVID-19: No Exposed to someone with COVID-19 in past 14 days?: No Do you have a sore throat?: No Do you have a cough?: No Do you have any weakness?: No Do you have any diarrhea?: No Are you experiencing any unusual bleeding?: No Do you have any muscle aches/pain?: No Do you have any abdominal pain?: No Are you experiencing loss of taste or smell?: No Other 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 Have you received the Flu Vaccine for this season: No Have you received the Pneumonia Vaccine: No <Alexia Nelson ([facility]), Last Filed: 02/13/25 18:14> ROS Obtained: Yes Systems reviewed as appropriate & no additional complaints except as documented Cardiovascular Cardiovascular: Reports system reviewed and no additional complaints, except as documented, Reports as per HPI, Reports chest pain, Reports chest pain with activity, Reports diaphoresis, Reports dyspnea on exertion and Reports lightheadedness Respiratory Respiratory: Reports system reviewed and no additional complaints, except as documented and Reports dyspnea on exertion Physical Exam <Alexia Nelson ([facility]), [employer] - Last Filed: 02/13/25 18:14> General General appearance: alert and in no apparent distress Eye Eye exam: Present normal appearance and PERRL ENT ENT exam: Present normal exam Respiratory Respiratory exam: Present wheezes Cardiovascular Cardiovascular exam: Present regular rate and normal rhythm Neurological Exam Neurological exam: Present alert Skin Skin exam: Present warm and intact HEART Score <Chilocarmelanathaniel Lindkeo ([facility]), - Last Filed: 02/13/25 18:14> HEART Score HEART Score assessment performed?: Yes History (anamnesis): Highly suspicious ECG: Significant ST-deviation Age: >65 years Risk factors: 3 or more risk factors Troponin: 1-3x normal limit HEART Score: 9 <Irvin Eastman MD - Last Filed: 02/13/25 20:05> HEART Score HEART Score: 9 Procedures <Irvin Eastman MD - Last Filed: 02/13/25 20:05> Limited Ultrasound Indication:: Limited cardiac ultrasound Indication: Chest pain, shortness of breath Identified cardiac views: -Cardiac parasternal long axis -Cardiac parasternal short axis -Cardiac apical four-chamber Findings: -Cardiac activity present -Gross wall motion normal -Pericardial effusion absent -Right heart strain absent Impression: -Normal cardiac ultrasound. No evidence of regional wall motion abnormality, effusion, etc. Difficult windows secondary to COPD, but EF appears grossly near normal Images were saved to permanent archive The study was technically adequate CPT: 62851 This study was performed by me, and I personally interpreted all images/videos. Based on my clinical judgement, these images were adequate and did not necessitate further imaging Critical Care <Alexia Nelson ([facility]), [employer] - Last Filed: 02/13/25 18:14> Critical Care Time Critical Care Time: Yes Attestation: On 02/13/25, the high probability of a clinically significant, sudden or life threatening deterioration of the following system(s) required my full and direct attention, intervention and personal management. The time I documented below is in addition to time spent performing reported procedures but includes the following listed in this critical care notation. Total Time Total Critical Care Time: 35 Medical Decision Making <Alexia Nelson ([facility]), [employer] - Last Filed: 02/13/25 18:14> Medical Records Medical records reviewed: Yes I reviewed the patient's medical records. Kalpesh Inquiry Pt receiving controlled substance: No Kalpesh was queried for this patient: No Vital Signs Vital Signs: 02/13/25 16:38 02/13/25 16:45 02/13/25 17:00 Temperature 98.1 F Temperature Source Oral Pulse Rate 67 Pulse Rate [Right] 77 Respiratory Rate 20 20 19 Blood Pressure 165/64 H 154/58 H Blood Pressure [Right Arm] 167/89 H Blood Pressure Mean Blood Pressure Mean [Right Arm] 115 Blood Pressure Source Blood Pressure Source [Right Arm] Automatic Cuff 02 Sat by Pulse Oximetry 97 98 96 Oxygen Delivery Method Room Air Room Air Room Air 02/13/25 17:20 02/13/25 17:30 02/13/25 17:46 Temperature Temperature Source Pulse Rate 63 67 67 Pulse Rate [Right] Respiratory Rate 15 17 21 Blood Pressure 157/62 H 158/62 H 147/62 H Blood Pressure [Right Arm] Blood Pressure Mean Blood Pressure Mean [Right Arm] Blood Pressure Source Blood Pressure Source [Right Arm] 02 Sat by Pulse Oximetry 96 95 96 Oxygen Delivery Method Room Air Room Air 02/13/25 18:00 02/13/25 18:15 02/13/25 19:08 Temperature 98.0 F Temperature Source Oral Pulse Rate 66 67 Pulse Rate [Right] Respiratory Rate 19 16 Blood Pressure 145/59 H 136/54 L 137/52 L Blood Pressure [Right Arm] Blood Pressure Mean 74 Blood Pressure Mean [Right Arm] Blood Pressure Source Automatic Cuff Blood Pressure Source [Right Arm] 02 Sat by Pulse Oximetry 94 L 92 L Oxygen Delivery Method Room Air Room Air Room Air Lab Data Lab results reviewed: Yes I reviewed the patient's lab results. Labs: Lab Results 02/13/25 16:38: WBC 9.4, RBC 4.15 L, Hgb 10.7 L, Hct 33.8 L, MCV 81.4, MCH 25.8 L, MCHC 31.7 L, RDW 15.9, Plt Count 276, MPV 10.7 H, Neut % (Auto) 51.3, Lymph % (Auto) 35.7, [place] % (Auto) 9.0, Eos % (Auto) 3.3, Baso % (Auto) 0.5, Neut # (Auto) 4.8, Lymph # (Auto) 3.4, [place] # (Auto) 0.9, Eos # (Auto) 0.3, Baso # (Auto) 0.1, Total Counted 100, Neutrophils % (Manual) 47, Lymphocytes % (Manual) 44, Monocytes % (Manual) 7, Eosinophils % (Manual) 2, Platelet Estimate Normal, RBC Morphology Normal, D-Dimer 0.53 H, Sodium 139, Potassium 3.9, Chloride 105, Carbon Dioxide 25, Anion Gap 12.9, BUN 20, Creatinine 0.90, Estimated GFR 84, Est GFR ( Amer) 102, Glucose 101 H, Hemoglobin A1c 5.6, Calcium 9.3, Total Bilirubin 0.4, AST 27, ALT 22, Alkaline Phosphatase 76, Troponin I 0.07 H, NT-Pro-B Natriuret Pep 2210 H, Total Protein 7.1, Albumin 4.2, Globulin 2.9, Albumin/Globulin Ratio 1.4, TSH 4.04, HCV Ab VANNESA w/Rflx PCR Qn Negative, HIV Ag/Ab Combo Qual Negative 02/13/25 16:38 02/13/25 16:38 Response Orders (Tests/Meds): ED MEDICATIONS Generic Name Dose Route Start Last Admin Trade Name Freq PRN Reason Stop Dose Admin Aspirin 81 mg 02/14/25 09:00 Aspirin Ec 81mg Tablet PO 03/16/25 08:59 DAILY [facility] Bisoprolol Fumarate 5 mg 02/14/25 09:00 Bisoprolol 5mg Tablet PO 03/16/25 08:59 DAILY [facility] Enoxaparin Sodium 110 mg 02/14/25 05:00 Enoxaparin 120mg/0.8ml Syringe SUBCUT 03/16/25 04:59 Q12H KATHLEEN Famotidine 20 mg 02/13/25 21:00 Famotidine 20mg Tablet PO 03/15/25 20:59 BID KATHLEEN Nitroglycerin/Dextrose 250 mls @ 4.5 mls/hr 02/13/25 17:00 02/13/25 17:07 Nitroglycerin 50mg/250ml D5w IV 03/15/25 16:59 5 mcg/min .Q24H KATHLEEN 1.5 mls/hr Administration Protocol 15 MCG/MIN Lisinopril 40 mg 02/14/25 09:00 Lisinopril 20mg Tablet PO 03/16/25 08:59 DAILY KATHLEEN Nicotine 21 mg 02/13/25 18:15 Nicotine 21mg/24hr Patch TD 03/15/25 18:14 DAILYP PRN Nicotine Cravings Tamsulosin HCl 0.4 mg 02/13/25 21:00 Tamsulosin 0.4mg Capsule PO 03/15/25 20:59 HS [facility] Discontinued Medications Generic Name Dose Route Start Last Admin Trade Name Freq PRN Reason Stop Dose Admin Aspirin 324 mg 02/13/25 16:55 02/13/25 17:04 Aspirin 81mg Chewable Tablet PO 02/13/25 16:56 324 mg ONCE ONE Administration Enoxaparin Sodium 107 mg 02/13/25 17:00 02/13/25 17:24 Enoxaparin 100mg/Ml Syringe SUBCUT 03/15/25 16:59 107 mg Q12H KATHLEEN Administration Morphine Sulfate 4 mg 02/13/25 16:55 02/13/25 17:04 Morphine 4mg/Ml Syringe IV 02/13/25 16:56 4 mg ONCE ONE Administration Ondansetron HCl 4 mg 02/13/25 16:55 02/13/25 17:04 Ondansetron 4mg/2ml Vial IV 02/13/25 16:56 4 mg ONCE ONE Administration ORDERS Category Date Time Status Cardiology Consult [Consult to Cardiology] [CONS] Cons 02/13/25 18:15 Active Routine Chest XR -- portable [XR chest portable] Stat Exams 02/13/25 16:42 Completed POCUS Point of Care (ER Only) Stat Exams 02/13/25 16:53 Completed CBC Man Diff [Complete Blood Count Man Dif] Stat Lab 02/13/25 16:38 Completed CMP [Comprehensive Metabolic Panel] Stat Lab 02/13/25 16:38 Completed Complete Blood Count Auto Diff AMLAB Lab 02/14/25 06:00 Ordered Comprehensive Metabolic Panel AMLAB Lab 02/14/25 06:00 Ordered D-Dimer Stat Lab 02/13/25 16:38 Completed HIV Combo Routine Lab 02/13/25 16:38 Completed Hemoglobin A1C Stat Lab 02/13/25 16:38 Completed Hepatitis C Ab Qual. W/ RFX Routine Lab 02/13/25 16:38 Completed Lipid Panel AMLAB Lab 02/14/25 06:00 Ordered Magnesium AMLAB Lab 02/14/25 06:00 Ordered NT Pro Brain Natriuretic Pep. Stat Lab 02/13/25 16:38 Completed TSH [Thyroid Stimulating Hormone] Stat Lab 02/13/25 16:38 Completed Trop I [Troponin I] Stat Lab 02/13/25 16:38 Completed Troponin I Q3H Lab 02/13/25 19:45 Received Troponin I Q3H Lab 02/13/25 22:45 Ordered MDM Narrative Medical Decision Narrative: In summary patient is a 64-year-old male who presents to the emergency department for evaluation of chest pain, tightness, dizziness, and lightheadedness with exertion for 3 to 4 days. Patient is hemodynamically stable upon arrival, afebrile. Unremarkable physical exam. Differential diagnosis includes UT, PE, pneumonia, anxiety. Initial workup will be conducted with chest x-ray, labs, EKG,. Initial inventions include nitroglycerin drip, Lovenox, aspirin and cardiology consult. Initial workup reviewed by ms EKG abnormal. Upon repeat evaluation after nitro drip was initiated repeat EKG showed some improvement but still abnormal. Given this patient will be admitted on a nitro drip and cardiology consulted. Documented with nuclear monitoring technician [id number] <Irvin Eastman MD - Last Filed: 02/13/25 20:05> Vital Signs Vital Signs: 02/13/25 16:38 02/13/25 16:45 02/13/25 17:00 Temperature 98.1 F Temperature Source Oral Pulse Rate 67 Pulse Rate [Right] 77 Respiratory Rate 20 20 19 Blood Pressure 165/64 H 154/58 H Blood Pressure [Right Arm] 167/89 H Blood Pressure Mean Blood Pressure Mean [Right Arm] 115 Blood Pressure Source Blood Pressure Source [Right Arm] Automatic Cuff 02 Sat by Pulse Oximetry 97 98 96 Oxygen Delivery Method Room Air Room Air Room Air 02/13/25 17:20 02/13/25 17:30 02/13/25 17:46 Temperature Temperature Source Pulse Rate 63 67 67 Pulse Rate [Right] Respiratory Rate 15 17 21 Blood Pressure 157/62 H 158/62 H 147/62 H Blood Pressure [Right Arm] Blood Pressure Mean Blood Pressure Mean [Right Arm] Blood Pressure Source Blood Pressure Source [Right Arm] 02 Sat by Pulse Oximetry 96 95 96 Oxygen Delivery Method Room Air Room Air 02/13/25 18:00 02/13/25 18:15 02/13/25 19:08 Temperature 98.0 F Temperature Source Oral Pulse Rate 66 67 Pulse Rate [Right] Respiratory Rate 19 16 Blood Pressure 145/59 H 136/54 L 137/52 L Blood Pressure [Right Arm] Blood Pressure Mean 74 Blood Pressure Mean [Right Arm] Blood Pressure Source Automatic Cuff Blood Pressure Source [Right Arm] 02 Sat by Pulse Oximetry 94 L 92 L Oxygen Delivery Method Room Air Room Air Room Air Lab Data Labs: Lab Results 02/13/25 16:38: WBC 9.4, RBC 4.15 L, Hgb 10.7 L, Hct 33.8 L, MCV 81.4, MCH 25.8 L, MCHC 31.7 L, RDW 15.9, Plt Count 276, MPV 10.7 H, Neut % (Auto) 51.3, Lymph % (Auto) 35.7, [place] % (Auto) 9.0, Eos % (Auto) 3.3, Baso % (Auto) 0.5, Neut # (Auto) 4.8, Lymph # (Auto) 3.4, [place] # (Auto) 0.9, Eos # (Auto) 0.3, Baso # (Auto) 0.1, Total Counted 100, Neutrophils % (Manual) 47, Lymphocytes % (Manual) 44, Monocytes % (Manual) 7, Eosinophils % (Manual) 2, Platelet Estimate Normal, RBC Morphology Normal, D-Dimer 0.53 H, Sodium 139, Potassium 3.9, Chloride 105, Carbon Dioxide 25, Anion Gap 12.9, BUN 20, Creatinine 0.90, Estimated GFR 84, Est GFR ( Amer) 102, Glucose 101 H, Hemoglobin A1c 5.6, Calcium 9.3, Total Bilirubin 0.4, AST 27, ALT 22, Alkaline Phosphatase 76, Troponin I 0.07 H, NT-Pro-B Natriuret Pep 2210 H, Total Protein 7.1, Albumin 4.2, Globulin 2.9, Albumin/Globulin Ratio 1.4, TSH 4.04, HCV Ab VANNESA w/Rflx PCR Qn Negative, HIV Ag/Ab Combo Qual Negative Response Orders (Tests/Meds): ED MEDICATIONS Generic Name Dose Route Start Last Admin Trade Name Micah PRN Reason Stop Dose Admin Aspirin 81 mg 02/14/25 09:00 Aspirin Ec 81mg Tablet PO 03/16/25 08:59 DAILY KATHLEEN Bisoprolol Fumarate 5 mg 02/14/25 09:00 Bisoprolol 5mg Tablet PO 03/16/25 08:59 DAILY KATHLEEN Enoxaparin Sodium 110 mg 02/14/25 05:00 Enoxaparin 120mg/0.8ml Syringe SUBCUT 03/16/25 04:59 Q12H KATHLEEN Famotidine 20 mg 02/13/25 21:00 Famotidine 20mg Tablet PO 03/15/25 20:59 BID KATHLEEN Nitroglycerin/Dextrose 250 mls @ 4.5 mls/hr 02/13/25 17:00 02/13/25 17:07 Nitroglycerin 50mg/250ml D5w IV 03/15/25 16:59 5 mcg/min .Q24H KATHLEEN 1.5 mls/hr Administration Protocol 15 MCG/MIN Lisinopril 40 mg 02/14/25 09:00 Lisinopril 20mg Tablet PO 03/16/25 08:59 DAILY KATHLEEN Nicotine 21 mg 02/13/25 18:15 Nicotine 21mg/24hr Patch TD 03/15/25 18:14 DAILYP PRN Nicotine Cravings Tamsulosin HCl 0.4 mg 02/13/25 21:00 Tamsulosin 0.4mg Capsule PO 03/15/25 20:59 HS KATHLEEN Discontinued Medications Generic Name Dose Route Start Last Admin Trade Name Freankita PRN Reason Stop Dose Admin Aspirin 324 mg 02/13/25 16:55 02/13/25 17:04 Aspirin 81mg Chewable Tablet PO 02/13/25 16:56 324 mg ONCE ONE Administration Enoxaparin Sodium 107 mg 02/13/25 17:00 02/13/25 17:24 Enoxaparin 100mg/Ml Syringe SUBCUT 03/15/25 16:59 107 mg Q12H KATHLEEN Administration Morphine Sulfate 4 mg 02/13/25 16:55 02/13/25 17:04 Morphine 4mg/Ml Syringe IV 02/13/25 16:56 4 mg ONCE ONE Administration Ondansetron HCl 4 mg 02/13/25 16:55 02/13/25 17:04 Ondansetron 4mg/2ml Vial IV 02/13/25 16:56 4 mg ONCE ONE Administration ORDERS Category Date Time Status Cardiology Consult [Consult to Cardiology] [CONS] Cons 02/13/25 18:15 Active Routine Chest XR -- portable [XR chest portable] Stat Exams 02/13/25 16:42 Completed POCUS Point of Care (ER Only) Stat Exams 02/13/25 16:53 Completed CBC Man Diff [Complete Blood Count Man Dif] Stat Lab 02/13/25 16:38 Completed CMP [Comprehensive Metabolic Panel] Stat Lab 02/13/25 16:38 Completed Complete Blood Count Auto Diff AMLAB Lab 02/14/25 06:00 Ordered Comprehensive Metabolic Panel AMLAB Lab 02/14/25 06:00 Ordered D-Dimer Stat Lab 02/13/25 16:38 Completed HIV Combo Routine Lab 02/13/25 16:38 Completed Hemoglobin A1C Stat Lab 02/13/25 16:38 Completed Hepatitis C Ab Qual. W/ RFX Routine Lab 02/13/25 16:38 Completed Lipid Panel AMLAB Lab 02/14/25 06:00 Ordered Magnesium AMLAB Lab 02/14/25 06:00 Ordered NT Pro Brain Natriuretic Pep. Stat Lab 02/13/25 16:38 Completed TSH [Thyroid Stimulating Hormone] Stat Lab 02/13/25 16:38 Completed Trop I [Troponin I] Stat Lab 02/13/25 16:38 Completed Troponin I Q3H Lab 02/13/25 19:45 Received Troponin I Q3H Lab 02/13/25 22:45 Ordered ECG Data Tracing #1: Attestation: I reviewed this ECG and interpreted as documented below: (1638 on arrival, sinus rhythm 74 bpm with FL 155, QRS 105, QTc 4 3. Patient has aVR elevations with significant ST depressions in 2, 3, aVF as well as V4 through V6, [address]VL[address] Borderline [address] ST segment in V1, but upsloping.) Tracing #2: Attestation: I reviewed this ECG and interpreted as documented below: (Repeat EKG 1759 after nitroglycerin, morphine, aspirin, Lovenox: Sinus rhythm 63 bpm with FL 160, QRS 101, QTc 421. Normal axis. Patient does have resolving aVR elevation, resolving ST depressions in inferior and lateral leads) MDM Narrative Medical Decision Narrative: In summary patient is a 64-year-old male who presents to the emergency department for evaluation of chest pain, tightness, dizziness, and lightheadedness with exertion for 3 to 4 days. Patient is hemodynamically stable upon arrival, afebrile. Unremarkable physical exam. Differential diagnosis includes UT, PE, pneumonia, anxiety. Initial workup will be conducted with chest x-ray, labs, EKG,. Initial inventions include nitroglycerin drip, Lovenox, aspirin and cardiology consult. Initial workup reviewed by me EKG abnormal. Upon repeat evaluation after nitro drip was initiated repeat EKG showed some improvement but still abnormal. Given this patient will be admitted on a nitro drip and cardiology consulted. Documented with nuclear monitoring technician [id number] 64-year-old male presenting with chest pain. Has been going on for a few days. States it is exertional, made worse when he goes walking outside or upstairs. Having short of breath, diaphoresis and nausea. No syncopal episodes. Pain does not radiate, currently 1-2 out of 10 and better at rest. patient also states that he recently had his loved 1 about a month prior to this and has been stressed about that. History obtained with patient. On arrival, patient hemodynamically stable, alert, oriented x4, appropriate, GCS 15, moving all extremities spontaneously, pupils equal and reactive to light. Full physical exam performed and significant for patient pale, complaining of mild pain, lungs are clear, cardiac exam without murmurs gallops or rubs. Abdomen is soft, nontender, nondistended. Differential includes microvascular coronary artery disease, CHF, ACS, UT, coronary artery dissection, pneumothorax, PE, dissection, pericarditis, myocarditis, pneumothorax, aortic aneurysm, pneumonia, bronchitis, among others. Patient placed on continuous cardiac monitoring and continuous pulse ox with initial blood pressure 167/89, heart rate 77, saturation 97% on room air. Independent interpretation of EKG shows aVR elevation and lateral and inferior depressions consistent with ischemia. Cardiology was contacted and recommended nitroglycerin drip, aspirin, Lovenox 1 mg/kg. These were given. Independent potation workup with nonactionable CBC. Patient's chemistry nonactionable, initial troponin 0.07 and BNP 2200. On reevaluation, patient states he is completely pain-free. Repeat EKG was obtained, changes are resolving. On independent interpretation of imaging, patient has mild cardiomegaly, no other acute intrathoracic findings. See radiology read for full review of final results. Heart score 9. Bedside [id number] ultrasound was performed, no obvious wall motion abnormalities, no effusion, normal overall. Difficult windows secondary to COPD. On reevaluation, patient states that he is adamant about going home. The gravity of the situation was explained to patient and that I was concerned he may go home and have a heart attack and , or just return back to the emergency department due to chest pain knowing this information. Patient initially not agreeable to staying, but after prolonged discussion, graciously agreed to be admitted for catheterization and cardiology evaluation. Hospital medicine was contacted and case was discussed at length, accepted for admission. Given patient presentation, workup, history, this most likely represents NSTEMI and new onset heart failure. Because patient high risk for clinical decompensation, deemed appropriate for inpatient admission. Results were relayed to patient who voiced understanding and patient was agreeable to inpatient admission and management. Patient was admitted to the hospital for further definitive management. Paralegals disclaimer Much of this encounter note is an electronic remote medical coder spoken language to printed text. Electronic remote medical coder of the spoken language may permit errors. Although I have reviewed the note, some errors may still exist.
[2025-02-13 16:50] LABS: MANUAL DIFFERENTIAL MANUAL DIFFERENTIAL (MANUAL DIFF)
--- NOTE | 2025-02-13 16:50 | PC.NURSE ---
Dr Eastman s/w Dr Templeton for acute EKG findings. New orders per MAR given.
[2025-02-13 16:58] LABS: Alanine Aminotransferase 22 U/L (12-78); Albumin Level 4.2 g/dl (3.5-5.0); Albumin/Globulin Ratio 1.4 (1.1-1.8); Alkaline Phosphatase 76 U/L (38-126); Anion Gap 12.9 mEq/L (5-15); Aspartate Amino Transferase 27 U/L (17-59); Bilirubin,Total 0.4 mg/dl (0.2-1.3); Blood Urea Nitrogen 20 mg/dl (9-20); Calcium 9.3 mg/dl (8.4-10.2); Carbon Dioxide 25 mmol/L (22.0-30.0); Chloride 105 mmol/L (98-107); Estimated Glomerular Filt Rate 84 ml/min (>60); GFR (African American) 102 ML/MIN (>60); Globulin 2.9 g/dL (1.3-3.2); Glucose 101 mg/dl (74-100); Potassium 3.9 mmoL/L (3.5-5.1); Sodium 139 mmol/L (136-145); Total Protein,Serum 7.1 g/dl (6.3-8.2)
[2025-02-13 17:03] LABS: D-Dimer 0.53 ug/mL (0.0-0.5)
[2025-02-13] MEDS: MORPHINE 4MG/ML SYRINGE 4 MG IV ×2 (17:04→21:31)
[2025-02-13] MEDS: ONDANSETRON 4MG/2ML VIAL 4 MG IV (17:04)
[2025-02-13] MEDS: ASPIRIN 81MG CHEWABLE TABLET 324 MG PO (17:04)
[2025-02-13] MEDS: NITROGLYCERIN IN 5 % DEXTROSE 250 ML 1.5 MG IV (17:07)
[2025-02-13 17:09] LABS: Troponin I 0.07 ng/ml (0.00-0.034)
[2025-02-13] MEDS: ENOXAPARIN 100MG/ML SYRINGE 107 MG SUBCUT (17:24)
[2025-02-13 17:25] LABS: Basophils # 0.1 K/mm3 (0-0.2); Basophils % 0.5 % (0.1-2.0); Eosinophils # 0.3 K/mm3 (0.0-0.4); Eosinophils % 3.3 % (0.1-12.0); Hematocrit 33.8 % (42.0-52.0); Hemoglobin 10.7 g/dL (14.1-18.0); Lymphocytes # 3.4 K/mm3 (0.7-4.5); Lymphocytes % 35.7 % (10-50); Mean Corpuscular HGB Conc 31.7 g/dL (31.8-35.4); Mean Corpuscular Hemoglobin 25.8 pg (27.0-31.2); Mean Corpuscular Volume 81.4 fl (80-94); Mean Platelet Volume 10.7 fl (7.4-10.4); Monocytes # 0.9 K/mm3 (0.1-1.0); Neutrophils # 4.8 K/mm3 (1.8-7.8); Neutrophils % 51.3 % (37.0-80.0); Platelet Count 276 K/mm3 (142-424); Red Blood Count 4.15 M/mm3 (4.60-6.20); Red Cell Distribution Width 15.9 % (11.5-17.5); White Blood Count 9.4 K/mm3 (4.8-10.8)
--- NOTE | 2025-02-13 17:59 | ECG_ITS ---
APPROVED REPORT Exam: Resting ECG HR:63 bpm ECG Measurements Heart Rate 63 AXES ND 160 P 47 QRSd 101 QRS 52 QT 413 T -66 QTc 421 Conclusion Sinus rhythm Resolving aVR elevation and ST depressions in lateral leads Electronically signed by : MAMTA JACKSON, 02/13/2025 23:10:57
--- NOTE | 2025-02-13 18:06 | PC.NURSE ---
DR JACKSON SPEAKING WITH DR STREET
[2025-02-13 18:07] LABS: Total Cells Counted 100
[2025-02-13 18:10] LABS: Eosinophils % 2 % (0-3); Lymphocytes % 44 % (10-50); Monocytes % 7 % (2-9); Neutrophils % 47 % (42-76); Platelet Estimate Normal; RBC Morphology Normal
[2025-02-13 18:11] LABS: NT Pro Brain Natriuretic Pep. 2210 pg/mL (0-125)
--- NOTE | 2025-02-13 18:31 | PC.NURSE ---
home supervisor notified for bed assignment
[2025-02-13 18:57] LABS: Hemoglobin A1C 5.6 % (4.0-6.0)
[2025-02-13 18:59] LABS: HIV Combo NEGATIVE (Negative)
[2025-02-13 19:07] LABS: Hepatitis C Ab Qual. W/ RFX NEGATIVE (Negative)
[2025-02-13 19:26] LABS: Thyroid Stimulating Hormone 4.04 uIU/mL (0.465-4.68)
--- NOTE | 2025-02-13 19:53 | PC.NURSE ---
pt arrived to floor at this time
[2025-02-13 20:13] LABS: Troponin I 0.07 ng/ml (0.00-0.034)
--- NOTE | 2025-02-13 20:58 | P.HP_ITS ---
<Statement entered by Frederic White MD - 02/14/25 07:56> Rounded on patient after nurse practitioner. Personally examined and interviewed patient. Agree with exam findings and care plan as documented. History of Present Illness *Admission Date: 02/13/25 *Reason for visit:: Chest pain *History of present illness: This is a very pleasant 64-year-old male with a past medical history of hypertension, hyperlipidemia who presents the emergency department today with complaints of chest pain. He reports chest pressure and tightness worse with activity over the last 5 days. States that he lost his fianc?e recently and has had increased chest pain and shortness of breath since then. Reports a 5-day history of this. States pain is centrally located and is worse with activity and improved with rest. States the pain is pressure-like in nature. Does not radiate. Also endorses shortness of breath with this. Emergency Department workup notable for ST changes notable for aVR elevation in lateral and inferior depressions consistent with ischemia. Patient was placed on a nitro drip per direction of cardiology with drastic improvement in pain. He was also given Lovenox 1 mg/kg and aspirin. Initial troponin of 0.07 with repeat of the same. BNP of 2200. Given his above-mentioned findings he is admitted to the hospitalist service for NSTEMI and chest pain [facility] Disclaimer: The information contained in this section may have been updated after the patient was seen, as this information can be updated by other users. 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) Hx of inguinal hernia repair History of shoulder surgery History of neck surgery History of knee surgery Family History , 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) No significant family 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 , 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) Smoking Status: Current every day smoker tobacco type: cigarettes packs per day: 1 quit status: has quit before alcohol intake: never substance use type: denies use current occupational status: retired Travel in the last 8 weeks: None adopted: No caregiver/support person: No foster care: No household members: friend(s) housing: apartment lives independently: Yes marital status: single number of children: 3 number of grandchildren: 7 service: Yes (discharged 1985) branch: [employer]: No Have you lived/traveled outside [place] in past 30 days?: No Contact w/someone who lives/traveled outside US past 30 days?: No Exposure to someone with infectious disease in past 14 days?: No Do you have a fever (greater than 100.4 F or 38 C)?: No Have you tested positive for COVID-19: No Exposed to someone with COVID-19 in past 14 days?: No Do you have a sore throat?: No Do you have a cough?: No Do you have any weakness?: No Do you have any diarrhea?: No Are you experiencing any unusual bleeding?: No Do you have any muscle aches/pain?: No Do you have any abdominal pain?: No Are you experiencing loss of taste or smell?: No Other 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 Have you received the Flu Vaccine for this season: No Have you received the Pneumonia Vaccine: No Review of Systems Review of Systems Review of systems:: pertinent systems reviewed and negative unless documented below Review of systems (narrative): Negative except for HPI Meds Home Medications and Allergies Home Medications ?Medication ?Instructions ?Recorded ?Confirmed ?Type amlodipine 10 mg tablet 10 mg PO DAILY #90 tabs 03/10/24 02/13/25 Rx bisoprolol fumarate 5 mg tablet 5 mg PO DAILY #90 tabs 03/10/24 02/13/25 Rx famotidine 20 mg tablet (Pepcid) 20 mg PO BID #180 tabs 03/10/24 02/13/25 Rx lisinopril 40 mg tablet 40 mg PO DAILY BLOOD PRESSURE #90 03/10/24 02/13/25 Rx tabs tamsulosin 0.4 mg capsule (Flomax) 0.4 mg PO DAILY #30 caps 09/28/24 02/13/25 Rx tadalafil 5 mg tablet (Cialis) 5 mg PO DAILYP PRN ED 02/13/25 02/13/25 History New Prescriptions to Start Prescriptions: Allergies Allergy/AdvReac Type Severity Reaction Status Date / Time No Known Allergies Allergy Verified 09/29/24 12:33 Exam Data for Last 24 hours Vital signs and Labs for Last 24 Hours: Temp Pulse Resp BP Pulse Ox O2 Del Method 98.1 F 60 16 133/51 L 96 Room Air 02/13/25 20:00 02/13/25 20:00 02/13/25 20:00 02/13/25 20:00 02/13/25 20:00 02/13/25 20:00 Laboratory Results - last 24 hr 02/13/25 16:38: WBC 9.4, RBC 4.15 L, Hgb 10.7 L, Hct 33.8 L, MCV 81.4, MCH 25.8 L, MCHC 31.7 L, RDW 15.9, Plt Count 276, MPV 10.7 H, Neut % (Auto) 51.3, Lymph % (Auto) 35.7, [place] % (Auto) 9.0, Eos % (Auto) 3.3, Baso % (Auto) 0.5, Neut # (Auto) 4.8, Lymph # (Auto) 3.4, [place] # (Auto) 0.9, Eos # (Auto) 0.3, Baso # (Auto) 0.1, Total Counted 100, Neutrophils % (Manual) 47, Lymphocytes % (Manual) 44, Monocytes % (Manual) 7, Eosinophils % (Manual) 2, Platelet Estimate Normal, RBC Morphology Normal, D-Dimer 0.53 H, Sodium 139, Potassium 3.9, Chloride 105, Carbon Dioxide 25, Anion Gap 12.9, BUN 20, Creatinine 0.90, Estimated GFR 84, Est GFR ( Amer) 102, Glucose 101 H, Hemoglobin A1c 5.6, Calcium 9.3, Total Bilirubin 0.4, AST 27, ALT 22, Alkaline Phosphatase 76, Troponin I 0.07 H, NT-Pro-B Natriuret Pep 2210 H, Total Protein 7.1, Albumin 4.2, Globulin 2.9, Albumin/Globulin Ratio 1.4, TSH 4.04, HCV Ab VANNESA w/Rflx PCR Qn Negative, HIV Ag/Ab Combo Qual Negative 02/13/25 19:45: Troponin I 0.07 H I & O for Last 24 hours: Intake & Output 02/10/25 02/11/25 02/12/25 02/13/25 23:59 23:59 23:59 23:59 Weight 107.501 kg Constitutional Constitutional: no acute distress *Routine HEENT Exam Head: Present normocephalic Eye: Present EOMI and PERRL ENT: Present mucous membranes moist *Routine Neck Exam Neck: Present supple; Absent lymphadenopathy *Routine Respiratory Exam Respiratory: Present CTA bilaterally *Routine Cardiovascular Exam Cardiovascular: Present RRR *Routine Abdominal Exam Abdominal: Present soft and normoactive bowel sounds; Absent tenderness *Routine Rectal Exam Rectal:: deferred *Routine Genitalia Exam Genitalia:: deferred *Routine Extremities Exam Extremities: Absent cyanosis, clubbing or edema *Routine Skin Exam Skin: Present warm; Absent rash *Routine Neurological Exam Neurological: Present alert and oriented X3 Assessment and Plan *Assessment and plan (1) Angina pectoris: Status: Acute Category: Medical Code(s): I20.9 - Angina pectoris, unspecified (2) Non-ST elevation [place] (NSTEMI): Status: Acute Category: Medical Code(s): I21.4 - Non-ST elevation (NSTEMI) myocardial infarction (3) Chest pain: Status: Acute Category: Medical Code(s): R07.9 - Chest pain, unspecified (4) ACS (acute coronary syndrome): Status: Acute Category: Medical Code(s): I24.9 - Acute ischemic heart disease, unspecified (5) Elevated brain natriuretic peptide (BNP) level: Status: Acute Category: Medical Code(s): R79.89 - Other specified abnormal findings of blood chemistry Plan #ACS #NSTEMI # Angina #Elevated BNP Patient reports chest tightness and shortness of breath that began this week. Has recently had difficult stressors at home, fianc? has recently. Cardiology consulted, recommends nitro, aspirin, Lovenox. Nitro drip, chest pain improved after initiation Continue daily aspirin Continue therapeutic Lovenox Sinew to trend troponin, currently flat at 0.07 Possible element of Takotsubo's. BNP elevated at 1999, will give dose of Lasix now. Will obtain echocardiogram on Saturday A1c and lipid panel pending Continue patient's home bisoprolol #Hypertension Continue home amlodipine #BPH Continue home tamsulosin
--- NOTE | 2025-02-13 21:27 | ECG_ITS ---
APPROVED REPORT Exam: Resting ECG HR:61 bpm ECG Measurements Heart Rate 61 AXES [place] 151 P 35 QRSd 103 QRS 56 QT 419 T -42 QTc 422 Conclusion SINUS RHYTHM INCOMPLETE RIGHT BUNDLE BRANCH BLOCK [90+ ms QRS DURATION, TERMINAL R IN V1/V2, 40+ ms S IN I/aVL/V4/V5/V6] ST DEVIATION AND MODERATE T-WAVE ABNORMALITY, CONSIDER LATERAL ISCHEMIA [-0.1+ mV T-WAVE IN I/aVL/V5/V6] ST DEVIATION AND MODERATE T-WAVE ABNORMALITY, CONSIDER INFERIOR ISCHEMIA [-0.1+ mV T-WAVE IN II/aVF] ABNORMAL ECG UNCONFIRMED REPORT Electronically signed by : Arik Sky MD 02/14/2025 08:25:36
[2025-02-13] MEDS: FUROSEMIDE 20 MG/2 ML VIAL IV (21:32)
[2025-02-13] MEDS: FAMOTIDINE 20MG TABLET 20 MG PO (21:32)
[2025-02-13] MEDS: TAMSULOSIN 0.4MG CAPSULE 0.4 MG PO (21:32)
[2025-02-13 23:35] LABS: Troponin I 0.08 ng/ml (0.00-0.034)
[2025-02-14] VITALS (13 sets, daily range): BP systolic 106–169; BP diastolic 50–76; PULSE 50–70; RESP 14–24; TEMP 36.8; O2SAT 91–100; BMI 31.1
[2025-02-14 03:47] LABS: Troponin I 0.08 ng/ml (0.00-0.034)
--- NOTE | 2025-02-14 06:41 | PC.NURSE ---
Pt has not voiced any complaints to staff throughout shift. NSR, No dysrhythmias noted to telemetry during shift. Pt has been ambulating to BR independently, tolerating well. at bedside. Call light within reach.
--- NOTE | 2025-02-14 06:45 | PC.NURSE ---
Pt A/Ox4. Pt complained of midsternal chest pain 1 x during shift rating it 8/10. PRN morphine was administered for breakthrough pain and pt stated relief. No other complaints voiced to staff. Nitro gtt currently running at 10mcg/min. Pt o2 desat to upper 80s while asleep. Pt was placed on 2 L nc to sustain o2 sat >90%. Pt tolerates room air well while awake. Pt has been NPO since midnight. Holding AM Lovenox at this time per Sean Bhakta. Call light within reach.
[2025-02-14 07:56] LABS: Basophils # 0.1 K/mm3 (0-0.2); Basophils % 0.7 % (0.1-2.0); Eosinophils # 0.3 K/mm3 (0.0-0.4); Eosinophils % 3.5 % (0.1-12.0); Hematocrit 31.1 % (42.0-52.0); Lymphocytes # 1.9 K/mm3 (0.7-4.5); Lymphocytes % 21.5 % (10-50); Mean Corpuscular HGB Conc 32.2 g/dL (31.8-35.4); Mean Corpuscular Hemoglobin 26.7 pg (27.0-31.2); Mean Corpuscular Volume 83.2 fl (80-94); Mean Platelet Volume 10.9 fl (7.4-10.4); Monocytes # 0.8 K/mm3 (0.1-1.0); Monocytes % 8.8 % (1.7-9.3); Neutrophils # 5.6 K/mm3 (1.8-7.8); Neutrophils % 65.2 % (37.0-80.0); Platelet Count 236 K/mm3 (142-424); Red Blood Count 3.74 M/mm3 (4.60-6.20); Red Cell Distribution Width 15.8 % (11.5-17.5); White Blood Count 8.6 K/mm3 (4.8-10.8)
[2025-02-14 08:24] LABS: Troponin I 0.06 ng/ml (0.00-0.034)
[2025-02-14 08:32] LABS: Albumin Level 3.7 g/dl (3.5-5.0); Chloride 108 mmol/L (98-107); Potassium 4.4 mmoL/L (3.5-5.1); Sodium 140 mmol/L (136-145)
[2025-02-14 08:34] LABS: Blood Urea Nitrogen 24 mg/dl (9-20); Creatinine Clearance Estimated 106 mL/min (50-200); Estimated Glomerular Filt Rate 84 ml/min (>60); GFR (African American) 102 ML/MIN (>60)
[2025-02-14 08:35] LABS: Alanine Aminotransferase 17 U/L (12-78); Albumin/Globulin Ratio 1.5 (1.1-1.8); Alkaline Phosphatase 56 U/L (38-126); Anion Gap 12.4 mEq/L (5-15); Aspartate Amino Transferase 27 U/L (17-59); Bilirubin,Total 0.4 mg/dl (0.2-1.3); Calcium 8.5 mg/dl (8.4-10.2); Carbon Dioxide 24 mmol/L (22.0-30.0); Chol/HDL Ratio 5.3 (1-3.5); Cholesterol 142 mg/dl (140-200); Globulin 2.4 g/dL (1.3-3.2); Glucose 77 mg/dl (74-100); HDL Cholesterol 27 mg/dl (40-60); Magnesium 1.8 mg/dl (1.6-2.3); Total Protein,Serum 6.1 g/dl (6.3-8.2); Triglycerides 164 mg/dl (30-150); VLDL Cholesterol 33 mg/dL (0-40)
[2025-02-14 08:46] LABS: Direct LDL Cholesterol 90.87 mg/dL (100-129)
[2025-02-14] MEDS: LISINOPRIL 20MG TABLET 40 MG PO (09:24)
[2025-02-14] MEDS: FAMOTIDINE 20MG TABLET 20 MG PO ×2 (09:25→20:27)
[2025-02-14] MEDS: ASPIRIN EC 81MG TABLET 81 MG PO (09:25)
[2025-02-14] MEDS: BISOPROLOL 5MG TABLET 5 MG PO (09:26)
--- NOTE | 2025-02-14 09:59 | HMH.PHAINT1 ---
Pharmacy Intervention Comments: MEDICATION RECONCILIATION COMPLETE USING EXTERNAL PHARMACY FILL HISTORY, RECENT MD OFFICE VISIT NOTES.
[2025-02-14] MEDS: ENOXAPARIN 120MG/0.8ML SYRINGE 110 MG SUBCUT ×2 (10:02→20:34)
--- NOTE | 2025-02-14 11:03 | EXP.ACUTE.PN ---
Subjective *Date: 02/14/25 *Time: 11:03 Interval history: Patient is chest pain-free this morning. Continues on telemetry. Requesting something to eat if no cath today. Stable on room air. No nausea or vomiting. No injury still shows ST depressions but no elevations or arrhythmias noted. Medical Exam Vital signs and Labs for Last 24 Hours: Vital Signs Temp Pulse Pulse Resp BP BP Pulse Ox 02/14/25 10:00 58 L 16 126/67 96 02/14/25 09:00 02/14/25 08:00 61 16 121/54 L 96 02/14/25 08:00 02/14/25 06:38 02/14/25 06:00 60 14 123/51 L 93 L 02/14/25 05:00 02/14/25 04:00 98.3 F 57 L 15 124/57 L 98 02/14/25 04:00 50 L 02/14/25 03:00 02/14/25 02:00 55 L 15 125/61 92 L 02/14/25 01:00 02/14/25 00:00 50 L 02/14/25 00:00 54 L 19 106/52 L 91 L 02/13/25 22:50 02/13/25 22:00 63 15 146/71 H 93 L 02/13/25 21:00 02/13/25 20:00 70 02/13/25 20:00 98.1 F 60 16 133/51 L 96 02/13/25 19:08 98.0 F 67 16 137/52 L 02/13/25 18:41 71 94 L 02/13/25 18:15 136/54 L 92 L 02/13/25 18:00 66 19 145/59 H 94 L 02/13/25 17:46 67 21 147/62 H 96 02/13/25 17:30 67 17 158/62 H 95 02/13/25 17:20 63 15 157/62 H 96 02/13/25 17:00 19 154/58 H 96 02/13/25 16:45 67 20 165/64 H 98 02/13/25 16:38 98.1 F 77 20 167/89 H 97 O2 Del Method O2 Flow Rate 02/14/25 10:00 Room Air 02/14/25 09:00 Room Air 02/14/25 08:00 Room Air 02/14/25 08:00 Room Air 02/14/25 06:38 Nasal Cannula 2 02/14/25 06:00 Nasal Cannula 2 02/14/25 05:00 Room Air 02/14/25 04:00 Nasal Cannula 2 02/14/25 04:00 02/14/25 03:00 Nasal Cannula 2 02/14/25 02:00 Nasal Cannula 2 02/14/25 01:00 Room Air 02/14/25 00:00 02/14/25 00:00 Nasal Cannula 2 02/13/25 22:50 Room Air 02/13/25 22:00 Room Air 02/13/25 21:00 Room Air 02/13/25 20:00 02/13/25 20:00 Room Air 02/13/25 19:08 Room Air 02/13/25 18:41 Room Air 02/13/25 18:15 Room Air 02/13/25 18:00 Room Air 02/13/25 17:46 Room Air 02/13/25 17:30 Room Air 02/13/25 17:20 02/13/25 17:00 Room Air 02/13/25 16:45 Room Air 02/13/25 16:38 Room Air Intake and Output 02/13/25 02/14/25 02/14/25 23:59 07:59 15:59 Intake Total 6.975 / 6.975 33.45 / 33.45 Output Total 0 / 0 0 / 200 200 / 200 Balance 6.975 / 6.975 33.45 / -166.55 -200 / -166.55 Intake: Intake, Total IV Amount 6.975 / 6.975 33.45 / 33.45 Output: Output, Urine Amount 0 / 0 0 / 200 200 / 200 Other: Number of Unmeasured Voids 1 1 Weight 107.501 kg 103.328 kg Patient Weight 02/14/25 23:59 Weight 103.328 kg Laboratory Results - last 24 hr 02/13/25 16:38: WBC 9.4, RBC 4.15 L, Hgb 10.7 L, Hct 33.8 L, MCV 81.4, MCH 25.8 L, MCHC 31.7 L, RDW 15.9, Plt Count 276, MPV 10.7 H, Neut % (Auto) 51.3, Lymph % (Auto) 35.7, [place] % (Auto) 9.0, Eos % (Auto) 3.3, Baso % (Auto) 0.5, Neut # (Auto) 4.8, Lymph # (Auto) 3.4, [place] # (Auto) 0.9, Eos # (Auto) 0.3, Baso # (Auto) 0.1, Total Counted 100, Neutrophils % (Manual) 47, Lymphocytes % (Manual) 44, Monocytes % (Manual) 7, Eosinophils % (Manual) 2, Platelet Estimate Normal, RBC Morphology Normal, D-Dimer 0.53 H, Sodium 139, Potassium 3.9, Chloride 105, Carbon Dioxide 25, Anion Gap 12.9, BUN 20, Creatinine 0.90, Estimated GFR 84, Est GFR ( Amer) 102, Glucose 101 H, Hemoglobin A1c 5.6, Calcium 9.3, Total Bilirubin 0.4, AST 27, ALT 22, Alkaline Phosphatase 76, Troponin I 0.07 H, NT-Pro-B Natriuret Pep 2210 H, Total Protein 7.1, Albumin 4.2, Globulin 2.9, Albumin/Globulin Ratio 1.4, TSH 4.04, HCV Ab VANNESA w/Rflx PCR Qn Negative, HIV Ag/Ab Combo Qual Negative 02/13/25 19:45: Troponin I 0.07 H 02/13/25 22:50: Troponin I 0.08 H 02/14/25 03:15: Troponin I 0.08 H 02/14/25 06:15: WBC 8.6, RBC 3.74 L, Hgb 10.0 L, Hct 31.1 L, MCV 83.2, MCH 26.7 L, MCHC 32.2, RDW 15.8, Plt Count 236, MPV 10.9 H, Neut % (Auto) 65.2, Lymph % (Auto) 21.5, [place] % (Auto) 8.8, Eos % (Auto) 3.5, Baso % (Auto) 0.7, Neut # (Auto) 5.6, Lymph # (Auto) 1.9, [place] # (Auto) 0.8, Eos # (Auto) 0.3, Baso # (Auto) 0.1, Sodium 140, Potassium 4.4, Chloride 108 H, Carbon Dioxide 24, Anion Gap 12.4, BUN 24 H, Creatinine 0.90, Estimated Creat Clear 106, Estimated GFR 84, Est GFR ( Amer) 102, Glucose 77 D, Calcium 8.5, Magnesium 1.8, Total Bilirubin 0.4, AST 27, ALT 17, Alkaline Phosphatase 56, Troponin I 0.06 H, Total Protein 6.1 L, Albumin 3.7 D, Globulin 2.4, Albumin/Globulin Ratio 1.5, Triglycerides 164 H, Cholesterol 142, LDL Cholesterol Direct 90.87 L, VLDL Cholesterol 33, HDL Cholesterol 27 L, Cholesterol/HDL Ratio 5.3 H I & O for Labs for Last 24 Hours: Intake & Output 02/11/25 02/12/25 02/13/25 02/14/25 23:59 23:59 23:59 23:59 Intake Total 6.975 / 6.975 33.45 / 33.45 Output Total 0 / 0 200 / 200 Balance 6.975 / 6.975 -166.55 / -166.55 Weight 107.501 kg 103.328 kg Constitutional: Present no acute distress, obese and chronically ill appearing Head: Present atraumatic and normocephalic ENT: Present normal exam Respiratory: Present normal respiratory effort; Absent respiratory distress, rhonchi, stridor, wheezes or crackles Cardiac: Present Reg Rate and Rhythm GI: Present soft and normal bowel sounds; Absent distention or tenderness Extremities: Present normal inspection and full ROM Skin: Present intact; Absent erythema Neuro: Present Grossly Intact, alert, awake, oriented x 3 and moves all extremities Assessment and Plan *Assessment and plan (1) Angina pectoris: Status: Acute Category: Medical Code(s): I20.9 - Angina pectoris, unspecified (2) Non-ST elevation [place] (NSTEMI): Status: Acute Category: Medical Code(s): I21.4 - Non-ST elevation (NSTEMI) myocardial infarction (3) Chest pain: Status: Acute Category: Medical Code(s): R07.9 - Chest pain, unspecified (4) ACS (acute coronary syndrome): Status: Acute Category: Medical Code(s): I24.9 - Acute ischemic heart disease, unspecified (5) Elevated brain natriuretic peptide (BNP) level: Status: Acute Category: Medical Code(s): R79.89 - Other specified abnormal findings of blood chemistry (6) Tobacco abuse: Status: Acute Category: Medical Code(s): Z72.0 - Tobacco use (7) Hypertension: Status: Acute Qualifiers: Hypertension type: unspecified Qualified Code(s): I10 - Essential (primary) hypertension Category: Medical Code(s): I10 - Essential (primary) hypertension (8) Obesity (BMI 30.0-34.9): Status: Acute Category: Medical Code(s): E66.811 - Obesity, class 1 Plan 64-year-old male with obesity, hypertension, tobacco use disorder. Presented with chest pain. Found to have ST depressions. Medicine was consulted for admission, medically managing at this time. Chest pain-free this morning. Cardiology consulted and assisting with care. Plan to take patient to the Tooling Supervisor in the morning for intervention unless has a clinical change this afternoon. Continues to require inpatient management. Problems addressed as follows: #ACS #NSTEMI # Angina #Elevated BNP Patient reports chest tightness and shortness of breath that began this week. Has recently had difficult stressors at home, fianc? has recently. Cardiology consulted, recommend continuing nitro drip, aspirin 81 mg daily, Lovenox therapeutically dosed. Echocardiogram ordered for the morning. Remains chest pain-free at this time on nitro drip. Status post 1 dose diuretic last night with good output due to elevated BNP. Troponin level at 0.07-0.08. Kidney function normal BUN 24, creatinine 0.9. Potassium 4.4, magnesium 1.8. Repeat CBC, CMP, magnesium ordered for the morning A1c normal at 5.6; TSH normal at 4 Continue patient's home bisoprolol #Hypertension Transition to irbesartan 150 mg daily. Consider Entresto if echo shows decreased ejection fraction #BPH Continue home tamsulosin 0.4 mg daily Cardiac diet, n.p.o. after midnight Full code Therapeutic Lovenox
[2025-02-14] MEDS: ACETAMINOPHEN 325MG TAB 650 MG PO (20:27)
[2025-02-14] MEDS: ATORVASTATIN 40MG TABLET 40 MG PO (20:27)
--- NOTE | 2025-02-14 20:30 | PC.NURSE ---
while giving pt his night time medication, pt refused his flomax. pt stated Dr. Tiwari prescribed him that medication but he does not take it because he doesn't have any issues with urinating and when he called his pharmacy they told him to stop taking it.
--- NOTE | 2025-02-14 21:03 | ECG_ITS ---
APPROVED REPORT Exam: Resting ECG HR:60 bpm ECG Measurements Heart Rate 60 AXES [place] 151 P 40 QRSd 101 QRS 50 QT 403 T 252 QTc 403 Conclusion SINUS RHYTHM INCOMPLETE RIGHT BUNDLE BRANCH BLOCK [90+ ms QRS DURATION, TERMINAL R IN V1/V2, 40+ ms S IN I/aVL/V4/V5/V6] ST DEVIATION AND MODERATE T-WAVE ABNORMALITY, CONSIDER LATERAL ISCHEMIA [-0.1+ mV T-WAVE IN I/aVL/V5/V6] ST DEVIATION AND MODERATE T-WAVE ABNORMALITY, CONSIDER INFERIOR ISCHEMIA [-0.1+ mV T-WAVE IN II/aVF] ABNORMAL ECG UNCONFIRMED REPORT Electronically signed by : Arik Sky MD 02/15/2025 08:21:37
--- NOTE | 2025-02-14 21:15 | PC.NURSE ---
pt complaining of chest pressure. 12 lead ekg was obtained. BANKING CONSULTANT ordered a stat troponin, and ekg was sent to [facility] to update him.
[2025-02-14 21:40] LABS: Troponin I 0.06 ng/ml (0.00-0.034)
[2025-02-14] MEDS: MORPHINE 2MG/ML SYRINGE 2 MG IV (21:42)
[2025-02-14] MEDS: MILK OF MAGNESIA 30ML UDC 30 ML PO (21:43)
--- NOTE | 2025-02-14 21:56 | EXP.EVENT.NO ---
22:00 patient reported having headache medication was added, to help with this. On follow-up patient said the headache was much improved. Patient noted being on nitroglycerin drip. Blood pressure has varied from 120 4 running around 160. Talking with nurses nitroglycerin used to be at 15 mics yesterday he was running in the 120s they felt that sometimes it was too low they had decreased it to 10. Blood pressure has since then really bounded sometimes up into the 160s. In reviewing records showing at times systolic blood pressure 1 time was at 108. Believe it about this point in time they decreased nitroglycerin had gone back up to 167 on recheck was 144. My last visit to the floor systolic was at 133. Patient has complaint of pressure in the abdomen. That is on the left side coming up going across the gastric region to the right side., He denies any classic chest pain or shortness of breath. He is awake alert and oriented. In noting that he is just let me know that his headache is still in very good control. 22:45 noting continual variation in systolic blood pressure, from high 120s to 150s systolic. Heart rate remaining in the low 60s at its highest EXAM : general : Patient states his headache is now under good control. He is alert oriented quite talkative very interactive with the staff and does not appear to be in any significant distress Chest : Patient complains of a tightness just below the nipple line and at cannot cross the top of the abdominal upper quads.. This is not creased with any type of palpation. Lungs are clear throughout. No signs of adventitious sounds. CV: Auscultation cardiac a holistic S1. Questioning slight crescendo but appears throughout the entire systolic phase. Also listening to the carotids the left carotid has generalized bruit with the systolic beat. Is easily to palpate can feel the pulse without difficulty and just light palpation to the neck. No signs of pulsations are seen. Right side of neck at first had difficulty finding a pulse. Must push deeper and was able to find a light pulse., Could not hear any abnormal sounds to the right carotid possibly related to deep positioning of the carotid versus decreased blood flow to the right carotid Examination of both hands that should show that the fingernails are pink with brisk capillary refill. Examination of the lower extremities positive pulses normal colorization to the lower extremities no signs of edema. Abdominal exam: Just a general rounding of the abdomen slightly firm but with no discomfort found on palpation, bowel sounds are quiet but are present Neurologic: Patient is totally alert oriented intact with no signs of weakness to either side of the body. Neurologic exam is normal Plan: Troponin remains slightly elevated on labs, but consistent. EKG continues to slow show an ST depression in most of the V leads. Will repeat the troponin at midnight and also grab another EKG and continue to monitor the patient. Going to make sure that the vital signs are checked every hour. Will change patient to ICU status. The patient's blood pressure hard to control with adjusting the nitroglycerin drip. .At times as low as 108 systolic other times up into the 160s systolic. Patient noted a history of variable blood pressure. Dr. Templeton has been updated, on the patient's condition also being notified of the EKG and troponin status. Dr. Templeton also wanted echocardiogram done and will add rotted duplex also. The findings of physical exam. Question whether there is a form of aortic valve malfunction, and or aortic stenosis have been notified that interventional cardiology lab is back up and now in full service. Will continue to adjust medication as needed trying to control blood pressure with an ideal goal of systolic BP being close to 120..
[2025-02-15] VITALS (32 sets, daily range): BP systolic 103–174; BP diastolic 50–98; PULSE 47–99; RESP 12–20; TEMP 36.9–37.1; O2SAT 94–100; BMI 31.1
--- NOTE | 2025-02-15 00:32 | ECG_ITS ---
APPROVED REPORT Exam: Resting ECG HR:58 bpm ECG Measurements Heart Rate 58 AXES [place] 156 P 39 QRSd 106 QRS 49 QT 407 T -89 QTc 405 Conclusion SINUS BRADYCARDIA INCOMPLETE RIGHT BUNDLE BRANCH BLOCK [90+ ms QRS DURATION, TERMINAL R IN V1/V2, 40+ ms S IN I/aVL/V4/V5/V6] POSSIBLE LATERAL MYOCARDIAL INFARCTION , OF INDETERMINATE AGE [30 ms Q WAVE IN I/aVL/V5/V6] ST DEVIATION AND MODERATE T-WAVE ABNORMALITY, CONSIDER ANTERIOR ISCHEMIA [-0.1+ mV T-WAVE IN V3/V4] ST DEVIATION AND MODERATE T-WAVE ABNORMALITY, CONSIDER INFERIOR ISCHEMIA [-0.1+ mV T-WAVE IN II/aVF] ABNORMAL ECG UNCONFIRMED REPORT Electronically signed by : Arik Sky MD 02/15/2025 08:21:33
[2025-02-15 00:56] LABS: Troponin I 0.05 ng/ml (0.00-0.034)
--- NOTE | 2025-02-15 02:04 | EXP.EVENT.NO ---
02:00 following patient's blood pressure with him sleeping still remains 150 systolic. When he was up awake in the chair could get into the 130s every once in a while to the 120. Patient is presently sleeping with heart rate most of the time in the upper 40s to low 50s. He appears completely comfortable. Troponin has decreased to 0.05 EKG remains unchanged Patient is stable at this time. Looking back through his past history of high blood pressures upwards into the 190s to 160s most of the time. Finding that the nitroglycerin is not having the effect that would want as far as blood pressure control. But with the patient's heart rate going anywhere from 47 up to about 63 and the patient being asleep and very comfortable we will continue the present nitroglycerin drip at this rate. And very pleased that the last cardiac enzymes showed a slight decrease. Will need to await results of cardiac echo and carotid duplex chest x-ray noted of having a very large aorta that is easily to CSF thickened. A unusual cardiac silhouette. Also noting nurses told me that the patient did refuse his Flomax tonight stating he was not having any trouble producing urine. He did receive his Avapro. 04:45 patient blood pressure will decrease systolically to even 103 down into the 120s. Heart rate is holding then for no reason at all will be back to the 150 systolic. Patient is stable. Talking with nursing they actually decreased the nitroglycerin drip to 20. Let them know that continue to titrate as the blood pressure stays up. And we will try to find a happy medium here but his blood pressure just continues to fluctuate, and unsure of why it will change 30 points, on the same nitro drip but then come back up and will not come down for a period of time. Will add a troponin to the morning labs.
[2025-02-15 06:03] LABS: Basophils % 0.5 % (0.1-2.0); Eosinophils # 0.2 K/mm3 (0.0-0.4); Eosinophils % 2.9 % (0.1-12.0); Hematocrit 29.4 % (42.0-52.0); Hemoglobin 9.5 g/dL (14.1-18.0); Lymphocytes # 1.7 K/mm3 (0.7-4.5); Lymphocytes % 23.1 % (10-50); Mean Corpuscular HGB Conc 32.3 g/dL (31.8-35.4); Mean Corpuscular Hemoglobin 25.9 pg (27.0-31.2); Mean Corpuscular Volume 80.1 fl (80-94); Monocytes # 0.9 K/mm3 (0.1-1.0); Monocytes % 11.8 % (1.7-9.3); Neutrophils # 4.5 K/mm3 (1.8-7.8); Neutrophils % 61.4 % (37.0-80.0); Platelet Count 237 K/mm3 (142-424); Red Blood Count 3.67 M/mm3 (4.60-6.20); Red Cell Distribution Width 15.5 % (11.5-17.5); White Blood Count 7.3 K/mm3 (4.8-10.8)
[2025-02-15 06:12] LABS: Chloride 105 mmol/L (98-107)
[2025-02-15 06:13] LABS: Albumin Level 3.6 g/dl (3.5-5.0); Potassium 3.7 mmoL/L (3.5-5.1); Sodium 136 mmol/L (136-145)
[2025-02-15 06:16] LABS: Alanine Aminotransferase 16 U/L (12-78); Albumin/Globulin Ratio 1.3 (1.1-1.8); Alkaline Phosphatase 61 U/L (38-126); Anion Gap 8.7 mEq/L (5-15); Aspartate Amino Transferase 23 U/L (17-59); Bilirubin,Total 0.5 mg/dl (0.2-1.3); Blood Urea Nitrogen 23 mg/dl (9-20); Calcium 8.8 mg/dl (8.4-10.2); Carbon Dioxide 26 mmol/L (22.0-30.0); Creatinine Clearance Estimated 106 mL/min (50-200); Estimated Glomerular Filt Rate 97 ml/min (>60); GFR (African American) 117 ML/MIN (>60); Globulin 2.7 g/dL (1.3-3.2); Glucose 97 mg/dl (74-100); Total Protein,Serum 6.3 g/dl (6.3-8.2)
[2025-02-15 06:17] LABS: Phosphorous 2.5 mg/dl (2.5-4.5)
--- NOTE | 2025-02-15 06:38 | CA_ITS ---
FINAL REPORT TECHNIQUE: Real-time imaging was performed of the extracranial carotid arteries in transverse and longitudinal planes with color duplex evaluation of blood flow velocity. Spectral analysis was performed. The cervicovertebral arteries were also examined. Stenosis evaluation based on elevated velocity criteria. CLINICAL HISTORY: HTN, HLD, Smoker, SOB, NSTEMI FINDINGS: FINDINGS: RIGHT CAROTID: CCA PSV: 86 cm/sec ICA PSV: 159 cm/sec ECA PSV: 105 cm/sec ICA/CCA systolic flow velocity ratio: 2.3 Moderate atherosclerotic plaque is noted. Narrowing is classified in the less than 50% category. LEFT CAROTID: CCA PSV: 64 cm/sec ICA PSV: 215 cm/sec ECA PSV: 237 cm/sec ICA/CCA systolic flow velocity ratio: 4.5 Moderate, localized formation of atherosclerotic plaque is noted. Narrowing is classified in the 50-69% category. VERTEBRALS: The right vertebral artery is patent with antegrade flow and expected spectral waveforms. The left vertebral artery is not visualized. IMPRESSION: Less than 50% stenosis of the right carotid artery. 50 to 69% stenosis of the left carotid artery. Left vertebral artery not visualized. Right vertebral artery patent. Reviewed, Interpreted and Dictated by Cristofer Angeles MD Transcribed by Chiquita Koo Authenticated and [facility]
[2025-02-15 07:11] LABS: Troponin I 0.05 ng/ml (0.00-0.034)
[2025-02-15] MEDS: IRBESARTAN 150MG TAB 150 MG PO (09:08)
[2025-02-15] MEDS: DOCUSATE SODIUM 100 MG CAPSULE PO (09:08)
[2025-02-15] MEDS: FAMOTIDINE 20MG TABLET 20 MG PO (09:08)
[2025-02-15] MEDS: BISOPROLOL 5MG TABLET 5 MG PO (09:08)
[2025-02-15] MEDS: ASPIRIN EC 81MG TABLET 81 MG PO (09:08)
--- NOTE | 2025-02-15 10:06 | PC.WOUNDNOTE ---
Patient able to walk to bathroom then to chair twice
--- NOTE | 2025-02-15 10:23 | IR_ITS ---
APPROVED REPORT Patient Location: Inpatient PROCEDURES Left heart catheterization Selective coronary angiogram INDICATION Acute non-ST elevation myocardial infarction Informed consent was obtained prior to the procedure. COMPLICATIONS NONE Estimated Blood Loss: LESS THAN 10 ML TECHNIQUE One percent lidocaine used to anesthetize the right anterior aspect of the wrist. The right radial artery was accessed via the Seldinger technique. A 6 Hungarian sheath was placed in the right radial artery. 2.5 mg of Verapamil, 800 mcg of nitroglycerin, 1mg Lidocaine and 5000 U Heparin were given through the arterial sheath. The 6 Hungarian JL 3 guide catheter was also used to perform left heart catheterization and selective coronary angiogram. At the end of the procedure the sheath was removed good hemostasis was achieved using Traclet band, patient was transferred to the postop holding area in stable condition. ANGIOGRAPHIC RESULTS The left main artery Has a distal eccentric calcified 80 to 90% stenosis The left anterior descending artery Has proximal 50 followed by an additional calcified concentric 50% stenosis. The circumflex artery Has an ostial 90% stenosis followed by a proximal calcified 70% stenosis. It also gives rise to a large ramus intermedius The right coronary artery Is codominant and has proximal 60% stenosis mid vessel 60% stenoses. A large posterior descending artery has proximal and mid vessel concentric 90% stenosis The BALDWIN ventriculogram reveals 30 mm trans aortic valve gradient was identified with no LV gram The left ventricular end-diastolic pressure 25 mmHg IMPRESSION Critical coronary artery disease as described above Moderate aortic stenosis PLAN 1. Continue nitroglycerin drip 2. Convert to heparin drip and discontinue Lovenox 3. [facility] surgery has been notified and efforts are being made to transfer patient for urgent aortic valve replacement and bypass surgery 4. Start high intensity statin Electronically signed by : Zachary Templeton MD 02/15/2025 13:33:30
--- NOTE | 2025-02-15 10:41 | EXP.CARD.CON ---
History of Present Illness History of Present Illness Consult date: 02/15/25 Requesting physician: Frederic White Consult reason: chest pain Chief complaint: chest pain History of present illness: This is a 64-year-old white male with past medical history of hypertension and hyperlipidemia who presented to emergency department on 02/13/2025 with a complaint of chest pain. Patient reports intermittent chest pressure and tightness worse with activity but present at rest over the last 5 days. He also notes that recently he lost his fianc?e and has had increased stress and anxiety. Chest pain and shortness of breath started since then. EKG on presentation showed elevation in aVR and ST depression in lateral and inferior leads. Initial troponin 0.07 trending down to 0.05, positive D-dimer noted, BNP greater than 2000. Chest x-ray negative for acute cardiopulmonary process. Patient was started on nitro drip and admitted for unstable angina and NSTEMI. This morning patient denies chest pain or shortness of breath. Is awaiting echocardiogram and left heart catheterization. [facility] Disclaimer: The information contained in this section may have been updated after the patient was seen, as this information can be updated by other users. 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 (Updated 02/15/25 @ 10:51 by Ysabel Christopher APRN) COPD (chronic obstructive pulmonary disease) Neck pain Thoracic back pain Bronchitis Need for RSV immunization Left flank pain Left sided abdominal pain Cervical radiculopathy Acute viral syndrome Pharyngitis Generalized body aches Sinusitis Scalp irritation Fatigue Eustachian tube dysfunction Cervical radiculopathy Bilateral arm pain Bilateral shoulder pain Neck pain Angina at rest Shoulder pain Neck pain Abdominal pain Nerve damage Chest pain Hypertension Exposure to COVID-19 virus Corneal abrasion Amputation of finger tip Urethral colic due to calculus Renal colic on right side Surgical History Hx of inguinal hernia repair History of shoulder surgery History of neck surgery History of knee surgery Family History , [employer]END[employer]MENT [employer]ER) No significant family 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 (Updated 02/13/25 @ 22:14 by Kell Heredia RN) Smoking Status: Current every day smoker tobacco type: cigarettes packs per day: 1 quit status: has quit before alcohol intake: never substance use type: denies use current occupational status: retired Travel in the last 8 weeks: None adopted: No caregiver/support person: No foster care: No household members: friend(s) housing: apartment lives independently: Yes marital status: single number of children: 3 number of grandchildren: 7 service: Yes (discharged 1985) branch: [employer] assisted: No Review of Systems Review of Systems Review of systems:: pertinent systems reviewed and negative unless documented below Constitutional Constitutional: Reports system reviewed and no additional complaints, except as documented *Cardiovascular Cardiovascular: Reports system reviewed and no additional complaints, except as documented *Respiratory Respiratory: Reports system reviewed and no additional complaints, except as documented *Gastrointestinal Gastrointestinal: Reports system reviewed and no additional complaints, except as documented *Neurologic Neurologic: Reports system reviewed and no additional complaints, except as documented and Denies confusion Psychiatric Psychiatric: Reports system reviewed and no additional complaints, except as documented and Denies confusion Exam Data for Last 24 hours Vital signs and Labs for Last 24 Hours: Temp Pulse Resp BP Pulse Ox O2 Del Method O2 Flow Rate 98.4 F 62 18 138/62 97 Room Air 2 02/15/25 08:00 02/15/25 10:00 02/15/25 10:00 02/15/25 10:00 02/15/25 10:00 02/15/25 10:00 02/14/25 06:38 Laboratory Results - last 24 hr 02/14/25 21:11: Troponin I 0.06 H 02/15/25 00:28: Troponin I 0.05 H 02/15/25 05:19: WBC 7.3, RBC 3.67 L, Hgb 9.5 L, Hct 29.4 L, MCV 80.1, MCH 25.9 L, MCHC 32.3, RDW 15.5, Plt Count 237, MPV 11.0 H, Neut % (Auto) 61.4, Lymph % (Auto) 23.1, [place] % (Auto) 11.8 H, Eos % (Auto) 2.9, Baso % (Auto) 0.5, Neut # (Auto) 4.5, Lymph # (Auto) 1.7, [place] # (Auto) 0.9, Eos # (Auto) 0.2, Baso # (Auto) 0.0, Sodium 136, Potassium 3.7, Chloride 105, Carbon Dioxide 26, Anion Gap 8.7, BUN 23 H, Creatinine 0.80, Estimated Creat Clear 106, Estimated GFR 97, Est GFR ( Amer) 117, Glucose 97 D, Calcium 8.8, Phosphorus 2.5, Magnesium 2.0 D, Total Bilirubin 0.5, AST 23, ALT 16, Alkaline Phosphatase 61, Troponin I 0.05 H, Total Protein 6.3, Albumin 3.6, Globulin 2.7, Albumin/Globulin Ratio 1.3 I & O for Last 24 hours: Intake & Output 02/12/25 02/13/25 02/14/25 02/15/25 23:59 23:59 23:59 23:59 Intake Total 6.975 / 6.975 206.15 / 206.15 130.675 / 130.675 Output Total 0 / 0 450 / 450 0 / 0 Balance 6.975 / 6.975 -243.85 / -243.85 130.675 / 130.675 Weight 237 lb 227 lb 12.8 oz 227 lb 3.2 oz Constitutional Constitutional: no acute distress *Routine Respiratory Exam Respiratory: Present CTA bilaterally and symmetric chest movement *Routine Cardiovascular Exam Cardiovascular: Present RRR, Normal S1 and Normal S2 *Routine Abdominal Exam Abdominal: Present soft and normoactive bowel sounds; Absent tenderness *Routine Extremities Exam Extremities: Present full ROM and normal capillary refill; Absent edema *Routine Skin Exam Skin: Present intact, dry and warm Detailed Neck Exam: Thyroids Thyroid: Absent bruit Meds Home Medications and Allergies Home Medications ?Medication ?Instructions ?Recorded ?Confirmed ?Type amlodipine 10 mg tablet 10 mg PO DAILY #90 tabs 03/10/24 02/14/25 Rx bisoprolol fumarate 5 mg tablet 5 mg PO DAILY #90 tabs 03/10/24 02/14/25 Rx famotidine 20 mg tablet (Pepcid) 20 mg PO BID #180 tabs 03/10/24 02/14/25 Rx lisinopril 40 mg tablet 40 mg PO DAILY BLOOD PRESSURE #90 03/10/24 02/14/25 Rx tabs tamsulosin 0.4 mg capsule (Flomax) 0.4 mg PO DAILY #30 caps 09/28/24 02/14/25 Rx tadalafil 5 mg tablet 5 mg PO DAILY PRN Sexual Activity 02/14/25 02/14/25 History New Prescriptions to Start Prescriptions: Allergies Allergy/AdvReac Type Severity Reaction Status Date / Time No Known Allergies Allergy Verified 09/29/24 12:33 Assessment and Plan *Assessment and plan (1) Elevated brain natriuretic peptide (BNP) level: Status: Acute Category: Medical Code(s): R79.89 - Other specified abnormal findings of blood chemistry (2) Obesity (BMI 30.0-34.9): Status: Acute Category: Medical Code(s): E66.811 - Obesity, class 1 (3) Non-ST elevation [place] (NSTEMI): Status: Acute Category: Medical Code(s): I21.4 - Non-ST elevation (NSTEMI) myocardial infarction (4) Chest pain: Status: Acute Category: Medical Code(s): R07.9 - Chest pain, unspecified (5) HLD (hyperlipidemia): Status: Acute Category: Medical Code(s): E78.5 - Hyperlipidemia, unspecified (6) Hypertension: Status: Acute Qualifiers: Hypertension type: unspecified Qualified Code(s): I10 - Essential (primary) hypertension Category: Medical Code(s): I10 - Essential (primary) hypertension (7) Carotid arterial disease: Status: Acute Category: Medical Code(s): I77.9 - Disorder of arteries and arterioles, unspecified Plan Chest pain NSTEMI Jacquelyn score 167 Elevation noted in aVR with depression noted in inferior and lateral leads Troponin 0.07 trending down to 0.05 D-dimer positive at 0.53, cannot rule out PE. Will obtain cta chest. Patient is chest pain-free on nitro Continue aspirin 81 mg p.o. daily, atorvastatin 40 mg daily, bisoprolol 5 mg p.o. daily Will proceed with left heart catheterization to further evaluate for coronary artery disease. Discussed risk versus benefits with patient he is agreeable to proceed. Acute HFrEF Moderate AI, moderate AAS Mild MR BNP > 2000 on admission Patient given 1 dose of diuretic with good urine output noted Preliminary echo shows an EF of 45% with moderate AI and with mild MR. Start Entresto 24/26 mg p.o. daily. Continue bisoprolol 5 mg p.o. daily. Add Jardiance 10 mg p.o. daily and Aldactone 25 mg p.o. daily. Hypertension Continue bisoprolol 5 mg p.o. daily and change irbesartan to Entresto Hyperlipidemia LDL goal less than 100 LDL is 90. Continue atorvastatin 40 mg p.o. daily Carotid artery disease Ultrasound shows less than 50% on the right and 50 to 69% on the left Continue aspirin and statin CV summary 02/15/2025: Echo shows an EF of 45% with moderate and mild MR, CTA chest and left heart catheterization are pending Cardiac meds Aspirin 81 mg p.o. daily Atorvastatin 40 mg p.o. daily Bisoprolol 5 mg p.o. daily Entresto 24/26 mg p.o. daily Jardiance 10 mg p.o. daily Aldactone 25 mg p.o. daily
--- NOTE | 2025-02-15 11:12 | CT_ITS ---
FINAL REPORT TECHNIQUE: The patient was injected with IV contrast. Axial images were obtained through the chest in a PE protocol. 3-D reconstruction images were also performed. Individualized dose reduction techniques using automated exposure control or adjustment of the MA and/or KV according to patient's size were employed. CLINICAL HISTORY: chest pain, positive d dimer COMPARISON: 06/03/2024 FINDINGS: Mediastinal vasculature is adequately opacified. No pulmonary artery filling defects are identified to suggest PE. There is no aortic dissection. There is no axillary adenopathy. There are multiple small lymph nodes in the AP window measuring up to 1.8 cm. The heart size is normal. There is no pericardial or pleural effusion. Limited images of the upper abdomen demonstrate partial visualization of a benign cyst in the left kidney. No suspicious infiltrate or nodule is identified. IMPRESSION: No pulmonary embolus or dissection. Mild mediastinal adenopathy is probably reactive. Reviewed, Interpreted and Dictated by Cristofer Angeles MD Transcribed by Chiquita Koo Authenticated and [facility]
--- NOTE | 2025-02-15 11:17 | CA_ITS ---
APPROVED REPORT EXAM: Comprehensive 2D, Doppler, and color-flow Echocardiogram [employer] Import Specialist: Katelynn Raman CRT Ht: 5 ft 11 in Wt: 227lbs BSA: 2.23 BP: 137/52 mmHg Indications: Shortness of Breath, Non STEMI, Hyperlipidemia, Hypertension/HDD, smoker 2D Dimensions LA Volume 78.60 mL LA Volume Index 34.50 mL/m2 (M/F) 16-34 M-Mode Dimensions RVDd 2.04 cm (0.9-2.6) LA Diam 3.91 cm (1.9-4.0) LVDd 5.62 cm (3.5-5.7) LVDs 3.69 cm (3.5-5.7) IVSd 1.97 cm (0.6-1.1) PWd 0.97 cm (0.6-1.1) EF (Teich) 62.70% FS 34.30% EDV (Teich) 154.90 mL TAPSE 3.25 (<1.7) ESV (Teich) 57.80 mL LV Diastology E Decel Time 207 (160-240 msec) E/A Ratio 1.21 MED A' 13.60 cm/s LAT A' 10.70 cm/s Aortic Valve PETE Index 0.51 cm2/m2 AoV Peak Joao. 308.0 (50-130 cm/s) AI PHT 467.00 ms AO Peak GR. 38.10 mmHg AO Mean GR. 22.40 (<5 mmHg) AO VTI 65.5 (18-25 cm) PETE (VTI) 1.17 (2.5-4.5 cm2) Mitral Valve MV E Max Joao. 80.0 (40-130 cm/s) MV A Velocity 66.0 (40-130 cm/s) E/A Ratio 1.21 MV PHT 61.0 ms Pulmonary Valve PV Peak Velocity 101.0 (50-150 cm/s) Left Ventricle The left ventricle is mildly dilated. Left ventricular systolic function is mildly decreased. There is increased LV wall thickness. There is mild global hypokinesis present. LVEF is 45%. The left ventricular diastolic function is normal. Right Ventricle The right ventricle is normal size. The right ventricular systolic function is normal. Atria The left atrium size is normal. The right atrium size is normal. There is no Doppler evidence of interatrial shunt. Aortic Valve Aortic valve is moderately thickened. Moderate aortic stenosis is present. Peak velocity 3.2 m/s. Mean AV gradient 22 mmHg. Max AV gradient 40 mmHg. PETE by continuity equation is 1.4 cm???. Moderate aortic regurgitation. Mitral Valve Mitral valve leaflets are mildly thickened. Mild mitral regurgitation. No evidence of mitral valve stenosis. Tricuspid Valve Tricuspid valve is grossly normal in structure and function. Trace tricuspid regurgitation. There is insufficient TR jet to estimate RVSP. Pulmonic Valve The pulmonary valve is normal in structure. Trace pulmonic regurgitation. Great Vessels The aortic root is normal in size. IVC is normal in size and collapses >50% with inspiration. Pericardium There is no pericardial effusion. Other Information Study Quality: Fair Conclusion Mildly dilated LV with mild reduction in LV function (LVEF 45%). Biatrial dilation. Moderate AI. Moderate (Peak velocity 3.2 m/s. Mean AV gradient 22 mmHg. Max AV gradient 40 mmHg. PETE by continuity equation is 1.4 cm???). Mild MR. Electronically signed by : Terri Joiner MD 02/15/2025 11:48:26
[2025-02-15] MEDS: IOPAMIDOL-370 (76%);100ML BOTTLE 85 ML IV (12:08)
[2025-02-15] MEDS: 0.9 % SODIUM CHLORIDE 50 ML VIAL 40 ML IV (12:08)
[2025-02-15] MEDS: SODIUM CHLORIDE 0.9% 10ML SYR (RAD ONLY) 10 ML IV (12:08)
--- NOTE | 2025-02-15 12:14 | PC.NURSE ---
pt transported via wheelchair from CT to microbiology lab technician @[phone]
--- NOTE | 2025-02-15 12:18 | P.DS_ITS ---
General Admission date:: 02/13/25 Discharge date: 02/15/25 HPI HPI HPI: This is a very pleasant 64-year-old male with a past medical history of hypertension, hyperlipidemia who presents the emergency department today with complaints of chest pain. He reports chest pressure and tightness worse with activity over the last 5 days. States that he lost his fianc?e recently and has had increased chest pain and shortness of breath since then. Reports a 5-day history of this. States pain is centrally located and is worse with activity and improved with rest. States the pain is pressure-like in nature. Does not radiate. Also endorses shortness of breath with this. Emergency Department workup notable for ST changes notable for aVR elevation in lateral and inferior depressions consistent with ischemia. Patient was placed on a nitro drip per direction of cardiology with drastic improvement in pain. He was also given Lovenox 1 mg/kg and aspirin. Initial troponin of 0.07 with repeat of the same. BNP of 2200. Given his above-mentioned findings he is admitted to the hospitalist service for NSTEMI and chest pain Hospital Course Hospital Course Hospital Course: 64-year-old male with obesity, hypertension, tobacco use disorder. Presented with chest pain. Found to have ST depressions. Medicine was consulted for admission, medically managing at this time. Chest pain-free this morning. Cardiology consulted and assisting with care. Patient was taken to the Crew Leader/Control Room Operator on 02/15. Found to have critical disease needing CABG. Was awaiting transfer when he chose to leave AMA after much discussion and encouragement to stay for transfer to higher level of care given the severity of his illness and high risk of . Patient stated understanding and left AGAINST MEDICAL ADVICE in light of the risks. Problems addressed as follows: #ACS #NSTEMI # Angina #Elevated BNP # CAD Patient reports chest tightness and shortness of breath that began this week. Has recently had difficult stressors at home, fianc? has recently. Cardiology consulted, patient was initiated on nitro drip, aspirin, Lovenox. Echo obtained showing preserved EF with moderate aortic stenosis and PETE of 1.4 cm?. Taken for left heart cath on 02/15. Found to have critical 80 to 90% stenosis of left main artery found to have 50% stenosis in the proximal LAD along with 90% ostial circumflex stenosis. Given his critical coronary artery disease in conjunction with moderate aortic stenosis, cardiology recommended transfer to for CABG and aortic valve replacement. While awaiting transfer, patient became more agitated and decided he did not want to wait. He had been accepted for transfer but no bed was available as of yet. In less than 6 hours from his heart cath, he elected to leave AGAINST MEDICAL ADVICE after much discussion about severity of his illness and high risk of . Was on nitroglycerin drip and heparin drip at time of elopement. A1c normal at 5.6; TSH normal at 4 Continue patient's home bisoprolol #Hypertension Transition to irbesartan 150 mg daily. Consider Entresto if echo shows decreased ejection fraction #BPH Continue home tamsulosin 0.4 mg daily Exam Data for Last 24 hours Vital signs and Labs for Last 24 Hours: Temp Pulse Resp BP Pulse Ox O2 Del Method O2 Flow Rate 98.4 F 62 18 138/62 97 Room Air 2 02/15/25 08:00 02/15/25 10:00 02/15/25 10:00 02/15/25 10:00 02/15/25 10:00 02/15/25 10:00 02/14/25 06:38 Laboratory Results - last 24 hr 02/14/25 21:11: Troponin I 0.06 H 02/15/25 00:28: Troponin I 0.05 H 02/15/25 05:19: WBC 7.3, RBC 3.67 L, Hgb 9.5 L, Hct 29.4 L, MCV 80.1, MCH 25.9 L , MCHC 32.3, RDW 15.5, Plt Count 237, MPV 11.0 H, Neut % (Auto) 61.4, Lymph % (Auto) 23.1, Emmons % (Auto) 11.8 H, Eos % (Auto) 2.9, Baso % (Auto) 0.5, Neut # (Auto) 4.5, Lymph # (Auto) 1.7, Emmons # (Auto) 0.9, Eos # (Auto) 0.2, Baso # (Auto) 0.0, Sodium 136, Potassium 3.7, Chloride 105, Carbon Dioxide 26, Anion Gap 8.7, BUN 23 H, Creatinine 0.80, Estimated Creat Clear 106, Estimated GFR 97, Est GFR ( Amer) 117, Glucose 97 D, Calcium 8.8, Phosphorus 2.5, Magnesium 2.0 D, Total Bilirubin 0.5, AST 23, ALT 16, Alkaline Phosphatase 61, Troponin I 0.05 H, Total Protein 6.3, Albumin 3.6, Globulin 2.7, Albumin/Globulin Ratio 1.3 I & O for Last 24 hours: Intake & Output 02/12/25 02/13/25 02/14/25 02/15/25 23:59 23:59 23:59 23:59 Intake Total 6.975 / 6.975 206.15 / 206.15 130.675 / 130.675 Output Total 0 / 0 450 / 450 0 / 0 Balance 6.975 / 6.975 -243.85 / -243.85 130.675 / 130.675 Weight 107.501 kg 103.328 kg 103.056 kg Constitutional Constitutional: no acute distress, obese, chronically ill appearing and agitated *Routine HEENT Exam Head: Present normocephalic *Routine Respiratory Exam Respiratory: Present CTA bilaterally and symmetric chest movement; Absent rhonchi *Routine Cardiovascular Exam Cardiovascular: Present RRR, Normal S1, Normal S2 and murmur (systolic) *Routine Abdominal Exam Abdominal: Present soft and normoactive bowel sounds; Absent tenderness *Routine Rectal Exam Patient deferred: visual exam *Routine Exam Patient deferred: penile exam *Routine Extremities Exam Extremities: Present full ROM and normal capillary refill; Absent edema *Routine Skin Exam Skin: Present intact, dry and warm *Routine Neurological Exam Neurological: Present alert, oriented X3 and moving all extremities Routine Psychiatric Exam Psychiatric: Present normal affect and normal thought process; Absent good insight or good judgment Detailed Neck Exam: Thyroids Thyroid: Absent bruit Results Data Completed and Pending Labs on day of discharge: Labs from last 24 hours 02/15/25 02/15/25 02/14/25 05:19 00:28 21:11 WBC 7.3 RBC 3.67 L Hgb 9.5 L Hct 29.4 L MCV 80.1 MCH 25.9 L MCHC 32.3 RDW 15.5 Plt Count 237 MPV 11.0 H Neut % (Auto) 61.4 Lymph % (Auto) 23.1 Emmons % (Auto) 11.8 H Eos % (Auto) 2.9 Baso % (Auto) 0.5 Neut # (Auto) 4.5 Lymph # (Auto) 1.7 Emmons # (Auto) 0.9 Eos # (Auto) 0.2 Baso # (Auto) 0.0 Sodium 136 Potassium 3.7 Chloride 105 Carbon Dioxide 26 Anion Gap 8.7 BUN 23 H Creatinine 0.80 Estimated Creat Clear 106 Estimated GFR 97 Est GFR ( Amer) 117 Glucose 97 D Calcium 8.8 Phosphorus 2.5 Magnesium 2.0 D Total Bilirubin 0.5 AST 23 ALT 16 Alkaline Phosphatase 61 Troponin I 0.05 H 0.05 H 0.06 H Total Protein 6.3 Albumin 3.6 Globulin 2.7 Albumin/Globulin Ratio 1.3 DS: Diagnosis Discharge Diagnosis (1) Elevated brain natriuretic peptide (BNP) level: Status: Acute Code(s): R79.89 - Other specified abnormal findings of blood chemistry (2) Obesity (BMI 30.0-34.9): Status: Acute Code(s): E66.811 - Obesity, class 1 (3) Non-ST elevation AR (NSTEMI): Status: Acute Code(s): I21.4 - Non-ST elevation (NSTEMI) myocardial infarction (4) Chest pain: Status: Acute Code(s): R07.9 - Chest pain, unspecified (5) HLD (hyperlipidemia): Status: Acute Code(s): E78.5 - Hyperlipidemia, unspecified (6) Hypertension: Status: Acute Code(s): I10 - Essential (primary) hypertension Qualifiers: Hypertension type: unspecified Qualified Code(s): I10 - Essential (primary) hypertension (7) Carotid arterial disease: Status: Acute Code(s): I77.9 - Disorder of arteries and arterioles, unspecified Meds Home Medications and Allergies Home Medications ?Medication ?Instructions ?Recorded ?Confirmed ?Type amlodipine 10 mg tablet 10 mg PO DAILY #90 tabs 03/10/24 02/14/25 Rx bisoprolol fumarate 5 mg tablet 5 mg PO DAILY #90 tabs 03/10/24 02/14/25 Rx famotidine 20 mg tablet (Pepcid) 20 mg PO BID #180 tabs 03/10/24 02/14/25 Rx lisinopril 40 mg tablet 40 mg PO DAILY BLOOD PRESSURE #90 03/10/24 02/14/25 Rx tabs tamsulosin 0.4 mg capsule (Flomax) 0.4 mg PO DAILY #30 caps 09/28/24 02/14/25 Rx tadalafil 5 mg tablet 5 mg PO DAILY PRN Sexual Activity 02/14/25 02/14/25 Histor y New Prescriptions to Start Prescriptions: Allergies Allergy/AdvReac Type Severity Reaction Status Date / Time No Known Allergies Allergy Verified 09/29/24 12:33 Discharge Plan Disposition Patient Disposition: Xfer Short-Term Hosp Condition: Serious Follow up Plan Follow up with: Tang Rodriguez PA [Physician Platform Stapler] - 02/22/25 2:00 pm Kiera Castro APRN [Primary Care Provider] - Enter time for follow up Prescriptions/Medication Reconciliation: No Action amlodipine 10 mg tablet 10 mg PO DAILY Qty: 90 3RF lisinopril 40 mg tablet 40 mg PO DAILY Qty: 90 3RF bisoprolol fumarate 5 mg tablet 5 mg PO DAILY Qty: 90 3RF famotidine [Pepcid] 20 mg tablet 20 mg PO BID Qty: 180 3RF tamsulosin [Flomax] 0.4 mg capsule 0.4 mg PO DAILY Qty: 30 3RF tadalafil 5 mg tablet 5 mg PO DAILY PRN (Reason: Sexual Activity) Problem Reconciliation Problems Reviewed?: Yes Patient Discharge Instructions ACTIVITY: Continue current activity DIET: continue same diet Print Language: Singaporean Providers Primary Care Provider: Kiera Castro Admit Provider: Frederic White Attending Provider: Frederic White
[2025-02-15] MEDS: LIDOCAINE 1% 10ML MDV 20 ML IJ (12:42)
[2025-02-15] MEDS: diphenhydrAMINE 50MG/ML VIAL 50 MG IV (13:00)
[2025-02-15] MEDS: NITROGLYCERIN 800MCG/8ML SYR (CATH LAB) 800 MCG IA (13:01)
[2025-02-15] MEDS: 0.9 % SODIUM CHLORIDE 500 ML 25 ML IV (13:01)
[2025-02-15] MEDS: VERAPAMIL 2.5MG/ML 2ML VIAL 2.5 MG IV (13:01)
[2025-02-15] MEDS: HEPARIN 1,000 UNITS/500ML NS (CATH LAB) 3000 UNIT IV (13:01)
[2025-02-15] MEDS: MIDAZOLAM HCL 1MG/ML 5ML VIAL 1 MG IV (13:01)
[2025-02-15] MEDS: HEPARIN 1,000 UNITS/ML 10ML VIAL (CATH LAB) 10000 UNIT IV (13:01)
[2025-02-15] MEDS: FENTANYL 100MCG/2ML VIAL 50 MCG IV (13:02)
[2025-02-15] MEDS: IOPAMIDOL-370 (76%);100ML BOTTLE 60 ML IV (14:17)
[2025-02-15] MEDS: EMPAGLIFLOZIN 10MG TABLET 10 MG PO (14:20)
[2025-02-15] MEDS: SPIRONOLACTONE 25MG TABLET 25 MG PO (14:20)
[2025-02-15] MEDS: NITROGLYCERIN IN 5 % DEXTROSE 250 ML 7.5 MG IV (14:21)
--- NOTE | 2025-02-15 14:23 | P.CONPHA_ITS ---
[facility] Pharmacy Heparin Dosing Demographic Data Admission date:: 02/13/25 Date: 02/15/25 Time: 14:23 Allergies Allergy/AdvReac Type Severity Reaction Status Date / Time No Known Allergies Allergy Verified 09/29/24 12:33 Height: 1.82 m Weight: 103.056 kg Indication Medication therapy:: Heparin Current Indications:: MEDIUM DOSE PROTOCOL - PREOP ANTICOAGULATION FOR BYPASS. Current Active Problems (Updated 02/15/25 @ 10:51 by Ysabel Christopher, ZANA) Carotid arterial disease (Acute) Obesity (BMI 30.0-34.9) (Acute) Elevated brain natriuretic peptide (BNP) level (Acute) ACS (acute coronary syndrome) (Acute) Angina pectoris (Acute) Non-ST elevation UT (NSTEMI) (Acute) Chest pain (Acute) HLD (hyperlipidemia) (Acute) Tobacco abuse (Acute) Hypertension (Acute) CVA?: No Bleeding problem?: No Kidney disease?: No UT?: Yes Additional History:: CORONARY ARTERY DISEASE, OBESITY, ACUTE CORONARY SYNDROME, NSTEMI, HYPERLIPIDEMIA, HYPERTENSION Desired PTT range:: 50-75 seconds Comments:: BASELINE PTT: 43.0 SECONDS Labs Anticoagulation Lab Results:: 02/15/25 05:19 Hgb 9.5 L Hct 29.4 L Plt Count 237 Monitoring Dose Monitor 1: Date: 02/15/25 Time: 14:19 PTT Result:: BASELINE PTT: 43.0 SECONDS Infusion Rate:: START HEPARIN DRIP AT 1000 UNITS/HOUR = 20 ML/HOUR, NO HEPARIN BOLUS SINCE PATIENT RECEIVED 8,000 UNITS IN AUTOMOTIVE TECHNICIAN INSTRUCTOR ABOUT 13:30. Comment:: PLATELET COUNT: 237,000 Dose Monitor 2: Date: 02/15/25 Time: 20:30 PTT Result:: NOT DRAWN, PATIENT LEFT AMA AT 17:30. Core Measures Is INR > or = 2 at discharge?: No Most Recent Labs:: Laboratory Results - last 24 hr 02/14/25 21:11: Troponin I 0.06 H 02/15/25 00:28: Troponin I 0.05 H 02/15/25 05:19: WBC 7.3, RBC 3.67 L, Hgb 9.5 L, Hct 29.4 L, MCV 80.1, MCH 25.9 L , MCHC 32.3, RDW 15.5, Plt Count 237, MPV 11.0 H, Neut % (Auto) 61.4, Lymph % (Auto) 23.1, Jennings % (Auto) 11.8 H, Eos % (Auto) 2.9, Baso % (Auto) 0.5, Neut # (Auto) 4.5, Lymph # (Auto) 1.7, Jennings # (Auto) 0.9, Eos # (Auto) 0.2, Baso # (Auto) 0.0, Sodium 136, Potassium 3.7, Chloride 105, Carbon Dioxide 26, Anion Gap 8.7, BUN 23 H, Creatinine 0.80, Estimated Creat Clear 106, Estimated GFR 97, Est GFR ( Amer) 117, Glucose 97 D, Calcium 8.8, Phosphorus 2.5, Magnesium 2.0 D, Total Bilirubin 0.5, AST 23, ALT 16, Alkaline Phosphatase 61, Troponin I 0.05 H, Total Protein 6.3, Albumin 3.6, Globulin 2.7, Albumin/Globulin Ratio 1.3 Were Heparin and Warfarin started on the same day?: No If not, why?: PATIENT LEFT AMA AT 17:50.
[2025-02-15] MEDS: HEPARIN SODIUM,PORCINE/D5W 500 ML 20 UNIT IV (14:40)
--- NOTE | 2025-02-15 16:59 | PC.NURSE ---
Nitro drip remaining at 25mcg and heparin drip started at 1000 units/hr. No pain reported by patient, VS stable and patient remained on room air. Lung sounds clear. Patient stated he wanted to talk to the doctor as he wanted to leave and go home for a few days before going to . Patient educated on risks of leaving AMA and reeducated on the transfer process. Patient agreeable to stay for now.
--- NOTE | 2025-02-15 17:50 | PC.NURSE ---
Patient stated he wanted to sign his papers and leave against medical advice. Patient was educated by this RN as well as the doctor about the risks and benefits of leaving against medical advice. Patient stated he understood and still wanted to leave. Patient advised he could not drive for 24 hours due to sedation from procedure. Patient's brother is present in room and able to drive patient home. Patient stated he understood and would filler picker his vehicle tomorrow afternoon.
--- OUTSIDE RECORDS SUMMARY | 2025-02-18 19:50 | XMS_ITS ---
Author Organization Unknown TREATMENT PLAN Planned Care Start Date Provider Encounter for Check-up [phone] [facility]
--- OUTSIDE RECORDS SUMMARY | 2025-02-18 19:50 | XMS_ITS ---
Care Plan - [facility], [facility] Created on: February 18, 2025 Shelly Nelson : 1960 Sex: Male Author Organization [facility] Address [address] [place] [address] Phone Care Team Providers Care Spool Hauler Name Role Phone Geraldo CORRALES, Anitra Unavailable Unavailable Sarah CORRALES, Rosa M Unavailable [phone]
--- OUTSIDE RECORDS SUMMARY | 2025-02-18 19:50 | XMS_ITS | Clinical Summary ---
Author Organization [facility] Address [address] [place] [address] Phone Care Team Providers Care Steam Turbine Operator Name Role Phone Geraldo CORRALES, Anitra Unavailable Unavailable Sarah CORRALES, Rosa M Unavailable [phone] Reason for Visit and Chief Complaint The Chief Complaint is: Cervical Pain Problems Includes: Problems addressed during this encounter and other active Problems All Visits Onset Date Resolved Date Provider Condition S tatus Neck Pain 01/23/2023 Rosa M Smith MD Active Last Documented On 3 9:04AM ; [facility] Plan of Treatment Pending Tests Order Diagnosis Results Due Ordering P abisai Procedure/Tests EMG 02/06/23 Rosa M Ellsworth MD Last Documented On 3 10:27AM ; [facility] Procedure/Tests Nerve Conduction Study 02/06/23 Rosa M Smith MD Last Documented On 3 10:27AM ; [facility] Radiology - CT Scan Cervical 02/06/23 Mckenna Smith MD Last Documented On 3 10:27AM ; [facility] Therapy - Physical Therapy Cervical Radiculopathy, cervical region 03/18/23 Rosa M Smith MD Last Documented On 3 5:04PM ; [facility] Procedure/Tests EMG Radiculopathy, cervical region 04/01/23 Rosa M Blum MD Last Documented On 3 5:04PM ; [facility], [facility] Procedure/Tests Nerve Conduction Study Radiculopathy, cervical region 04/01/23 Rosa M Smith MD Last Documented On 3 5:04PM ; [facility], [facility] Referrals To Diagnosis Consult with Orthopedic Radiculo sony, cervical region Note: Right Shoulder Dr. Noel Madsen Last Documented On 3 5:04PM ; [facility], [facility] Instructions to patient Intervention and counseling on cessation of tobacco use Last Documented On 3 2:07PM ; [facility], [facility] Lose weight Last Documented On 3 1:46PM ; [facility], [facility] Assessments Includes: Assessments from this encounter Findings This is a 62-year-old man with cervical radiculopathy in addition to likely internal derangement of the right shoulder and probably left shoulder - Last Documented On 02/10/2024 4:40PM ; [facility], [facility] It is always interesting seeing [...] Madsen after that. - Last Documented On 02/10/2024 4:40PM ; [facility], [facility] Instructions Includes: Instructions from this encounter Instructions to patient Intervention and counseling on cessation of tobacco use Last Documented On 3 2:07PM ; [facility], [facility] Lose weight Last Documented On 3 1:46PM ; [facility], [facility] Medical Equipment - Implanted Devices Includes: Current Devices No Medical Equipment Recorded Medications Includes: Medications discussed during this encounter and other current Medications Current Medications (continue as prescribed) amLODIPine Besylate 5 MG Oral Tablet 01/03/2023 Prov ider: Diagnosis: Last Documented On 3 9:05AM By Sharri Philippe ; [facility], [facility] Lisinopril 40 MG Oral Tablet 01/03/2023 Provider: Diagnosis: Last Documented On 3 9:05AM By Sharri Philippe ; [facility], [facility] Loratadine 10 MG Oral Tablet 01/03/2023 Provider: Diagnosis: Last Documented On 3 9:05AM By Sharri Philippe ; [facility] Pantoprazole Sodium 40 MG Oral Tablet Delayed Release 11/01/2022 Provider: Diagnosis: Last Documented On 3 9:05AM By Sharri Philippe ; [facility] Diclofenac Sodium 1% External Gel 10/27/2022 Provide r: Diagnosis: Last Documented On 3 9:05AM By Sharri Philippe ; [facility] Past Medications on file Methocarbamol 750 MG Oral Tablet 01/23/2023 - 02/22/2023 Provider: Rosa M Shipley MD Diagnosis: Take 1 tablet PO up to three times a day, PRN Last Documented On 3 9:39AM By Sharri Philippe ; [facility] Medications Administered Includes: Administered Medications from this encounter No Administered Medications Recorded Vital Signs Includes: Vital Signs from this encounter Vital Name 03/18/2023 02:07P Height (in) 71 Weight (lb) 243 Body Mass Index 33.9 Body Surface Area 2.3 Note: bb Last Documented: On 03/18/2023 2:07PM ; [facility] Results Includes: Results discussed during [...] History Description Last Updated Tobacco use 01/23/2023 Last Documented On 3 1:45PM ; [facility] Yes, current smoker. 2.5 packs per day 0 01/23/2023 Last Documented On 3 1:45PM ; [facility] Caffeine use 01/23/2023 Last Documented On 3 1:45PM ; [facility] No recent change in diet 01/23/2023 Last Documented On 3 1:45PM ; [facility] Not exercising regularly 01/23/2023 Last Documented On 3 1:45PM ; [facility] Not using alcohol 01/23/2023 Last Documented On 3 1:45PM ; [facility] Not using drugs 01/23/2023 Last Documented On 3 1:45PM ; [facility] Smoking Status Unknown Procedures and Surgical History Includes: Procedures from this encounter Procedures Code Diagnosis Performing Provider Service L ocation Service Date intervention and counseling on cessation of tobacco use 4000F Last Documented On 3 2:07PM ; [facility] use of tobacco assessment performed 1000F Last Documented On 3 2:07PM ; [facility] EMG 03/14/2023 [facility] @ [facility] [id number] Last Documented On 3 2:19PM ; [facility] an X-ray was performed 12/03/2022 [facility] @ [facility] [id number] Last Documented On 3 1:46PM ; [facility] CT scan 02/25/2023 [facility] @ [facility] [id number] Last Documented On 3 2:19PM ; [facility] an MRI was performed 12/27/2022 [facility] @ [facility] [id number] Last Documented On 3 1:46PM ; [facility] Surgical History Last Updated Past Surgical History: C7-T1 ACDF 2022 Last Documented On 3 1:45PM ; [facility] 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 Includes: 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 addressed during this encounter Description Last Updated History of Heartburn / Acid Reflux 01/23 Last Documented On 3 1:45PM ; [facility] History of Hypertension 01/23/2023 Last Documented On 3 1:45PM ; [facility] Family History Includes: Family History addressed during this encounter Description Last Updated No significant family history 01/23/2023 Last Documented On 3 1:45PM ; [facility] Review of Systems Includes: Review of Systems [...] Diagnosis Follow Up Rosa M saleem MD [facility] ÓSCAR 3 1:44PM 3:22PM Insurance Includes: Active Insurance Policies Plan Name Member ID Group # Subscriber Relationship Effect gaby Dates 1 - [facility] [id number] Shelly Nelson Self Clinical Notes Includes: Clinical Notes from this encounter * Progress note Date Encounter Last Documented by 03/18/2023 Follow Up Last documented on 02/10/2024; 4:40 PM, Rosa M Blum MD; [facility], [facility] Active Problems & Conditions - [...] shoulder It is always interesting seeing Almas back [...] Studies: Neuro-Electrical Functions: EMG 03/14/2023 [facility] @ [facility]. Imaging: X-Ray: An [facility]. CT Scan: CT scan 02/25/2023 [facility] @ [facility]. MRI Scan: An MRI was performed 12/27/2022 [facility] @ [facility]. Therapy - Intervention and counseling on cessation of tobacco use. Counseling/Education - Lose weight Plan StartCited - [...]
--- OUTSIDE RECORDS SUMMARY | 2025-02-18 19:50 | XMS_ITS | Clinical Summary ---
Author Organization [facility] , [facility] Address [address] [place] [address] Phone Care Team Providers Care Flame Cutting Supervisor Name Role Phone Geraldo CORRALES, Anitra Unavailable Unavailable Sarah CORRALES, Rosa M Unavailable [phone] Reason for Visit and Chief Complaint The Chief Complaint is: Cervical Pain Problems Includes: Problems addressed during this encounter and other active Problems Current Visit Onset Date Resolved Date Provider Harleen viramontes Status Neck Pain 01/23/2023 Ros aM Smith MD Active Last Documented On 3 9:04AM ; [facility] Plan of Treatment Pending Tests Order Diagnosis Results Due Ordering P rovider Therapy - Physical Therapy Cervical 01/23/23 Rosa M Smith MD Last Documented On 3 10:27AM ; [facility] Procedure/Tests EMG 02/06/23 Rosa M Ellsworth MD Last Documented On 3 10:27AM ; [facility], [facility] Procedure/Tests Nerve Conduction Study 02/06/23 Rosa M Smith MD Last Documented On 3 10:27AM ; [facility] Radiology - CT Scan Cervical 02/06/23 Mckenna Smith MD Last Documented On 3 10:27AM ; [facility] Procedure/Tests EMG Radiculopathy, cervical region 04/01/23 Rosa M Blum MD Last Documented On 3 5:04PM ; [facility], [facility] Procedure/Tests Nerve Conduction Study Radiculopathy, cervical region 04/01/23 Rosa M Smith MD Last Documented On 3 5:04PM ; [facility] Instructions to patient Intervention and counseling on cessation of tobacco use Last Documented On 3 9:53AM ; [facility] Lose weight Last Documented On 3 9:05AM ; [facility], [facility] Assessments Includes: Assessments from this encounter Findings This is 62-year-old man status post C7-T1 anterior cervical discectomy and fusion 10 years ago at an outside hospital now with a predominant complaint of neck pain as well as bilateral hand numbness - Last Documented On 01/23/2023 10:27AM ; [facility], [facility] It was interesting meeting Mr. Nelson [...] Documented On 01/23/2023 10:27AM ; [facility], [facility] Instructions Includes: Instructions from this encounter Instructions to patient Intervention and counseling on cessation of tobacco use Last Documented On 3 9:53AM ; [facility] Lose weight Last Documented On 3 9:05AM ; [facility] Medical Equipment - Implanted Devices [...] to three times a day, PRN Pharmacy: [facility] [phone] , [place] [address] - Last Documented On 3 9:39AM By Sharri Philippe ; [facility], [facility] Current Medications (continue as prescribed) amLODIPine Besylate 5 MG Oral Tablet 01/03/2023 Prov ider: Diagnosis: Last Documented On 3 9:05AM By Sharri Philippe ; [facility] Lisinopril 40 MG Oral Tablet 01/03/2023 Provider: Diagnosis: Last Documented On 3 9:05AM By Sharri Philippe ; [facility] Loratadine 10 MG Oral Tablet 01/03/2023 Provider: Diagnosis: Last Documented On 3 9:05AM By Sharri Philippe ; [facility], [facility] Pantoprazole Sodium 40 MG Oral Tablet Delayed Release 11/01/2022 Provider: Diagnosis: Last Documented On 3 9:05AM By Sharri Philippe ; [facility], [facility] Diclofenac Sodium 1% External Gel 10/27/2022 Provide r: Diagnosis: Last Documented On 3 9:05AM By Sharri Philippe ; [facility], [facility] Medications Administered Includes: Administered Medications from this encounter No Administered Medications Recorded Vital Signs Includes: Vital Signs from this encounter Vital Name 01/23/2023 09:19A Height (in) 71 Weight (lb) 227 Body Mass Index 31.7 Body Surface Area 2.2 Note: bb Last Documented: On 01/23/2023 9:19AM ; [facility], [facility] Results Includes: Results discussed during this [...] in his neck 10 years ago in [facility] but does not remember the surgeon [...] Tobacco use 01/23/2023 Last Documented On 3 10:27AM ; [facility] Yes, current smoker. 2.5 packs per day 0 01/23/2023 Last Documented On 3 10:27AM ; [facility] Caffeine use 01/23/2023 Last Documented On 3 10:27AM ; [facility] No recent change in diet 01/23/2023 Last Documented On 3 10:27AM ; [facility] Not exercising regularly 01/23/2023 Last Documented On 3 10:27AM ; [facility] Not using alcohol 01/23/2023 Last Documented On 3 10:27AM ; [facility] Not using drugs 01/23/2023 Last Documented On 3 10:27AM ; [facility] Smoking Status Unknown Procedures and Surgical History Includes: Procedures from this encounter Procedures Code Diagnosis Performing Provider Service L ocation Service Date intervention and counseling on cessation of tobacco use 4000F Last Documented On 3 9:53AM ; [facility] use of tobacco assessment performed 1000F Last Documented On 3 9:05AM ; [facility] an X-ray was performed 12/03/2022 Nadia @ [facility] [id number] Last Documented On 3 10:27AM ; [facility] an MRI was performed 12/27/2022 Nadia @ [facility] [id number] Last Documented On 3 10:27AM ; [facility] Surgical History Last Updated Past Surgical History: C7-T1 ACDF 2022 Last Documented On 3 10:27AM ; [facility], [facility] 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 Includes: 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 addressed during this encounter Description Last Updated History of Heartburn / Acid Reflux 01/23 Last Documented On 3 10:27AM ; [facility] History of Hypertension 01/23/2023 Last Documented On 3 10:27AM ; [facility] Family History Includes: Family History addressed during this encounter Description Last Updated No significant family history 01/23/2023 Last Documented On 3 10:27AM ; [facility] Review of Systems Includes: Review of [...] 1 01/23/2023 Complete (Refused - Patient objection) [facility], [facility] Last Documented On 3 9:52AM ; [facility] PCV (Pneumovax 23) 1 01/23/2023 Suspended (Contraindicated) [facility] Last Documented On 3 9:52AM ; [facility] Allergies Includes: Active Allergies No Known Allergies Encounters Encounter Provider Location Date Check-In Time Check-Out Time Diagnosis Physician Specified Rosa M [facility]e [facility] 01/24/20 23 9:08AM 9:33AM Insurance Includes: Active Insurance Policies Plan Name Member ID Group # Subscriber Relationship Effect gaby Dates 1 - [facility] [id number] Shelly Nelson Self Clinical Notes Includes: Clinical Notes from this encounter * Progress note Date Encounter Last Documented by 01/23/2023 Physician Specified Last karla chong on 01/23/2023; 10:27 AM, Rosa M Smith MD; [facility], [facility] Active Problems & Conditions - Neck [...] in his neck 10 years ago in [facility] but does not remember the surgeon [...] X-ray was performed 12/03/2022 [facility]. MRI Scan: An MRI was performed 12/27/2022 [facility]. Therapy - Intervention and counseling on cessation [...]
--- OUTSIDE RECORDS SUMMARY | 2025-02-18 19:50 | XMS_ITS ---
Author Organization [facility] , [facility] Address [address] [place] [address] Phone Care Team Providers Care Closing Machine Operator Name Role Phone Geraldo CORRALES, Anitra Unavailable Unavailable Sarah CORRALES, Rosa M Unavailable [phone] Problems Includes: Active, inactive, and resolved Problems All Visits Onset Date Resolved Date Provider Condition S tatus Neck Pain 01/23/2023 Rosa M Smith MD Active Last Documented On 3 9:04AM ; [facility] Plan of Treatment Pending Tests Order Diagnosis Results Due Ordering P rovider Procedure/Tests EMG 02/06/23 Rosa M Ellsworth MD Last Documented On 3 10:27AM ; [facility] Procedure/Tests Nerve Conduction Study 02/06/23 Rosa M Smith MD Last Documented On 3 10:27AM ; [facility] Radiology - CT Scan Cervical 02/06/23 Mckenna Smith MD Last Documented On 3 10:27AM ; [facility] Procedure/Tests EMG Radiculopathy, cervical region 04/01/23 Rosa M Blum MD Last Documented On 3 5:04PM ; [facility] Procedure/Tests Nerve Conduction Study Radiculopathy, cervical region 04/01/23 Rosa M Smith MD Last Documented On 3 5:04PM ; [facility] Referrals To Diagnosis Consult with Orthopedic Radiculo sony, cervical region Note: Right Shoulder Dr. Noel Madsen Last Documented On 3 5:04PM ; [facility], [facility] Instructions to patient Intervention and counseling on cessation of tobacco use Last Documented On 3 2:07PM ; [facility] Lose weight Last Documented On 3 1:46PM ; [facility] Intervention and counseling on cessation of tobacco use Last Documented On 3 9:53AM ; [facility] Lose weight Last Documented On 3 9:05AM ; [facility] Assessments Includes: Assessments for all patient encounters No Assessments Recorded Instructions Includes: Instructions for all patient encounters Instructions to patient Intervention and counseling on cessation of tobacco use Last Documented On 3 2:07PM ; [facility] Lose weight Last Documented On 3 1:46PM ; [facility] Intervention and counseling on cessation of tobacco use Last Documented On 3 9:53AM ; [facility] Lose weight Last Documented On 3 9:05AM ; [facility], [facility] Medical Equipment - Implanted Devices Includes: Current and historical Devices No Medical Equipment Recorded Medications Includes: Current and historical Medications Current Medications (continue as prescribed) amLODIPine Besylate 5 MG Oral Tablet 01/03/2023 Prov ider: Diagnosis: Last Documented On 3 9:05AM By Sharri Philippe ; [facility] Lisinopril 40 MG Oral Tablet 01/03/2023 Provider: Diagnosis: Last Documented On 3 9:05AM By Sharri Philippe ; [facility], [facility] Loratadine 10 MG Oral Tablet 01/03/2023 Provider: Diagnosis: Last Documented On 3 9:05AM By Sharri Philippe ; [facility], [facility] Pantoprazole Sodium 40 MG Oral Tablet Delayed Release 11/01/2022 Provider: Diagnosis: Last Documented On 3 9:05AM By Sharri Philippe ; [facility], [facility] Diclofenac Sodium 1% External Gel 10/27/2022 Provide r: Diagnosis: Last Documented On 3 9:05AM By Sharri Philippe ; [facility], [facility] Past Medications on file Methocarbamol 750 MG Oral Tablet 01/23/2023 - 02/22/2023 Provider: Rosa M Shipley MD Diagnosis: Take 1 tablet PO up to three times a day, PRN Last Documented On 3 9:39AM By Sharri Philippe ; [facility], [facility] Medications Administered Includes: Administered Medications in patient's chart No Administered Medications Recorded Results Includes: Results from 02/19/2024 through 02/18/2025 No Results Recorded For Specified Dates History of Present Illness History of Present Illness not supported for this document type No History of Present Illness Recorded Social History Description Last Updated Tobacco use 01/23/2023 Last Documented On 3 10:27AM ; [facility], [facility] Yes, current smoker. 2.5 packs per day 0 01/23/2023 Last Documented On 3 10:27AM ; [facility], [facility] Caffeine use 01/23/2023 Last Documented On 3 10:27AM ; [facility], [facility] No recent change in diet 01/23/2023 Last Documented On 3 10:27AM ; [facility], [facility] Not exercising regularly 01/23/2023 Last Documented On 3 10:27AM ; [facility], [facility] Not using alcohol 01/23/2023 Last Documented On 3 10:27AM ; [facility], [facility] Not using drugs 01/23/2023 Last Documented On 3 10:27AM ; [facility], [facility] Smoking Status Unknown Procedures and Surgical History Surgical History Last Updated Past Surgical History: C7-T1 ACDF 2022 Last Documented On 3 10:27AM ; [facility], [facility] 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 Includes: 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 in patient's chart Description Last Updated History of Heartburn / Acid Reflux 01/23 Last Documented On 3 10:27AM ; [facility], [facility] History of Hypertension 01/23/2023 Last Documented On 3 10:27AM ; [facility], [facility] Family History Includes: Family History in patient's chart Description Last Updated No significant family history 01/23/2023 Last Documented On 3 10:27AM ; [facility], [facility] Review of Systems Review of Systems not [...] 1 01/23/2023 Complete (Refused - Patient objection) [facility], [facility] Last Documented On 3 9:52AM ; [facility] PCV (Pneumovax 23) 1 01/23/2023 Suspended (Contraindicated) [facility] Last Documented On 3 9:52AM ; [facility], [facility] Allergies Includes: Active, inactive, and resolved Allergies No Known Allergies Insurance Includes: Active Insurance Policies Plan Name Member ID Group # Subscriber Relationship Effect gaby Dates 1 - [facility] [id number] Shelly Nelson Self Clinical Notes Includes: Signed Clinical Notes starting from 10/25/2022 No Clinical Notes Recorded
== END 2025-02-15 17:50 | disposition left against medical advice (07) | DRG 280 ==
LOC: ER 18:14 → 2ND 18:41
PROVIDERS: Internal Medicine; Nurse Practitioner Acute Care; Nurse Practitioner Family; Admitting Provider Internal Medicine Adolescent Medicine; Emergency Provider Emergency Medicine; PCP Nurse Practitioner Family; Visit Provider Internal Medicine Adolescent Medicine
PROC: 4A023N7 Measurement of Cardiac Sampling and Pressure, Left Heart, Percutaneous Approach (ICD-10-PCS; principal; 2025-02-15 15:30)
DX: I21.4 Non-ST elevation (NSTEMI) myocardial infarction (principal); I50.21 Acute systolic (congestive) heart failure; I11.0 Hypertensive heart disease with heart failure; N40.0 Benign prostatic hyperplasia without lower urinary tract symptoms; I25.10 Atherosclerotic heart disease of native coronary artery without angina pectoris; E66.9 Obesity, unspecified; F17.210 Nicotine dependence, cigarettes, uncomplicated; I65.23 Occlusion and stenosis of bilateral carotid arteries; R45.1 Restlessness and agitation; I24.9 Acute ischemic heart disease, unspecified; E78.5 Hyperlipidemia, unspecified; R79.89 Other specified abnormal findings of blood chemistry; Z91.199 Patient's noncompliance with other medical treatment and regimen due to unspecified reason; Z68.31 Body mass index [BMI] 31.0-31.9, adult; Z63.4 Disappearance and death of family member; Z28.39 Other underimmunization status; Z79.899 Other long term (current) drug therapy; Z79.82 Long term (current) use of aspirin; Z91.85 Personal history of military service
CPT/HCPCS: 36415; 71045; 71275; 80053; 80061; 83036; 83735; 83880; 84100; 84443; 84484; 85007; 85014; 85018; 85025; 85048; 85049; 85378; 85730; 86803; 87389; 93005; 93306; 93458; 93880; 99152; 99291; C1725; C1769; G0378; J1200; J1644; J1650; J1938; J2250; J2270; J2405; J3010; Q9967

== ENCOUNTER 2025-02-16 13:49 | Observation (INO) | payer MEDICARE, OTHER, SELFPAY ==
[2025-02-16] VITALS (7 sets, daily range): BP systolic 132–172; BP diastolic 63–89; PULSE 58–65; RESP 15–20; TEMP 36.2–36.8; O2SAT 96–100; BMI 23.0; BMI 32.3; BMI 30.8
--- NOTE | 2025-02-16 13:50 | ED_ITS ---
<Statement entered by Anais Iglesias DO - 02/16/25 15:28> I was consulted by the HECTOR, and we discussed the complexity of the problems being addressed. I approved the treatment and management plan for this patient's care in the emergency department, thus performing a substantive portion of the medical decision making. Anais Iglesias DO Discharge Plan Disposition Patient Disposition: Admitted Condition: Fair Discharge ED Provider: Anais Iglesias HPI <Sirena Tilley APRN - Last Filed: 02/16/25 16:22> General Chief Complaint: Chest Pain Stated Complaint: CHEST PAIN Time Seen by Provider: 02/16/25 13:49 History of Present Illness HPI narrative: patient is a 64-year-old male PMHx obesity, history of tobacco use, ACS, NSTEMI, carotid arterial disease, HLD, GERD, hypertension who presents to the ED for chest pain after being called by the senior stereo compiler team lead today. Patient states he was in this hospital yesterday and underwent a cardiac cath where he was told he had multivessel disease and needed open heart surgery, patient signed out AMA. Related Data Home Medications ?Medication ?Instructions ?Recorded ?Confirmed tadalafil 5 mg tablet 5 mg PO NEEDED PRN Sexual 02/14/25 02/16/25 Activity lisinopril 40 mg tablet 40 mg PO DAILY 02/16/25 02/16/25 Previous Rx's ?Medication ?Instructions ?Recorded amlodipine 10 mg tablet 10 mg PO DAILY #90 tabs 03/10/24 bisoprolol fumarate 5 mg tablet 5 mg PO DAILY #90 tabs 03/10/24 famotidine 20 mg tablet (Pepcid) 20 mg PO BID #180 tabs 03/10/24 tamsulosin 0.4 mg capsule (Flomax) 0.4 mg PO DAILY #30 caps 09/28/24 Allergies Allergy/AdvReac Type Severity Reaction Status Date / Time No Known Allergies Allergy Verified 09/29/24 12:33 PFSH <Sirena Tilley APRN - Last Filed: 02/16/25 16:22> PFSH Disclaimer: The information contained in this section may have been updated after the patient was seen, as this information can be updated by other users. 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 (Updated 02/16/25 @ 15:10 by Alesia Pinon RN) History of left heart catheterization COPD (chronic obstructive pulmonary disease) Neck pain Thoracic back pain Bronchitis Need for RSV immunization Left flank pain Left sided abdominal pain Cervical radiculopathy Acute viral syndrome Pharyngitis Generalized body aches Sinusitis Scalp irritation Fatigue Eustachian tube dysfunction Cervical radiculopathy Bilateral arm pain Bilateral shoulder pain Neck pain Angina at rest Shoulder pain Neck pain Abdominal pain Nerve damage Chest pain Hypertension Exposure to COVID-19 virus Corneal abrasion Amputation of finger tip Urethral colic due to calculus Renal colic on right side Surgical History Hx of inguinal hernia repair History of shoulder surgery History of neck surgery History of knee surgery Family History , CENTRIFUGAL OPERATOR) No significant family 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 (Updated 02/16/25 @ 15:10 by Alesia Pinon, ANGELICA) Smoking Status: Current every day smoker tobacco type: cigarettes packs per day: 1 quit status: has quit before alcohol intake: never substance use type: denies use current occupational status: retired Travel in the last 8 weeks: None adopted: No caregiver/support person: No foster care: No household members: friend(s) housing: apartment lives independently: Yes marital status: single number of children: 3 number of grandchildren: 7 service: Yes (discharged 1985) 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: No Have you lived/traveled outside [place] in past 30 days?: No Contact w/someone who lives/traveled outside US past 30 days?: No Exposure to someone with infectious disease in past 14 days?: No Do you have a fever (greater than 100.4 F or 38 C)?: No Have you tested positive for COVID-19: No Exposed to someone with COVID-19 in past 14 days?: No Do you have a sore throat?: No Do you have a cough?: No Do you have any weakness?: No Are you experiencing any nausea/vomitting?: No Do you have any diarrhea?: No Are you experiencing any unusual bleeding?: No Do you have any muscle aches/pain?: No Do you have any abdominal pain?: No Are you experiencing loss of taste or smell?: No Other 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 Have you received the Flu Vaccine for this season: No Have you received the Pneumonia Vaccine: No <Sirean Tilley APRN - Last Filed: 02/16/25 16:22> ROS Obtained: Yes Systems reviewed as appropriate & no additional complaints except as documented Physical Exam <Sirena Tilley APRN - Last Filed: 02/16/25 16:22> General General appearance: alert and in no apparent distress Head Head exam: atraumatic and normocephalic Eye Eye exam: Present normal appearance and PERRL ENT ENT exam: Present normal exam Neck Neck exam: Present normal inspection Chest Chest inspection: Present normal inspection and symmetric chest wall rise; Absent tenderness Respiratory Respiratory exam: Present normal lung sounds bilaterally Cardiovascular Cardiovascular exam: Present regular rate Abdominal Exam Abdominal exam: Present soft and normal bowel sounds; Absent tenderness Extremities Exam Extremities exam: Present normal inspection and full ROM Back Exam Back exam: Present normal inspection and full ROM Neurological Exam Neurological exam: Present alert and oriented X3 Psychiatric Psychiatric exam: Present normal affect and normal mood Skin Skin exam: Present warm and dry HEART Score <Sirena Tilley APRN - Last Filed: 02/16/25 16:22> HEART Score HEART Score assessment performed?: Yes History (anamnesis): Highly suspicious ECG: Non-specific disturbance Age: >65 years Risk factors: 3 or more risk factors Troponin: 1-3x normal limit HEART Score: 8 Critical Care <Sirena Tilley APRN - Last Filed: 02/16/25 16:22> Critical Care Time Critical Care Time: No Medical Decision Making <Sirena Tilley APRN - Last Filed: 02/16/25 16:22> Kalpesh Inquiry Pt receiving controlled substance: No Vital Signs Vital Signs: 02/16/25 13:51 02/16/25 14:00 02/16/25 14:40 Temperature 97.2 F L 98 F Temperature Source Oral Oral Pulse Rate 63 65 Pulse Rate [Right Radial] 60 Respiratory Rate 18 20 15 Blood Pressure 155/65 H 153/89 H Blood Pressure [Right Arm] 172/76 H Blood Pressure Mean [Right Arm] 108 Blood Pressure Source Automatic Cuff Blood Pressure Source [Right Arm] Automatic Cuff Blood Pressure Position Sitting Blood Pressure Position [Right Arm] Sitting 02 Sat by Pulse Oximetry 99 97 Oxygen Delivery Method Room Air Room Air Lab Data Labs: Lab Results 02/16/25 13:53: WBC 8.1, RBC 4.41 L, Hgb 11.2 L, Hct 35.5 L, MCV 80.5, MCH 25.4 L, MCHC 31.5 L, RDW 15.9, Plt Count 305 D, MPV 10.8 H, Neut % (Auto) 56.3, Lymph % (Auto) 30.8, [place] % (Auto) 10.7 H, Eos % (Auto) 1.5, Baso % (Auto) 0.5, Neut # (Auto) 4.6, Lymph # (Auto) 2.5, [place] # (Auto) 0.9, Eos # (Auto) 0.1, Baso # (Auto) 0.0, PT 11.0, INR 0.98, APTT 27.9 02/16/25 13:53: APTT 27.6 L, Sodium 139, Potassium 3.5, Chloride 104, Carbon Dioxide 25, Anion Gap 13.5, BUN 18, Creatinine 0.80, Estimated Creat Clear 77, Estimated GFR 97, Est GFR ( Amer) 117, Glucose 94, Calcium 9.3, Magnesium 1.9, Total Bilirubin 0.6, AST 38 D, ALT 22 D, Alkaline Phosphatase 68, T roponin I 0.21 H, NT-Pro-B Natriuret Pep 3440 H, Total Protein 8.1 D, Albumin 4.6 D, Globulin 3.5 H, Albumin/Globulin Ratio 1.3, Triglycerides 136, Cholesterol 143, LDL Cholesterol Direct 77.48 L, VLDL Cholesterol 27, HDL Cholesterol 37 L, Cholesterol/HDL Ratio 3.9 H 02/16/25 13:53 02/16/25 13:53 Response Orders (Tests/Meds): ED MEDICATIONS Generic Name Dose Route Start Last Admin Trade Name Freq PRN Reason Stop Dose Admin Heparin Sodium/Dextrose 500 mls @ 20 mls/hr 02/16/25 14:30 02/16/25 14:49 Heparin 25,000 Units In D5w 500ml Premix IV 03/18/25 14:29 20 mls/hr .Q25H KATHLEEN Administration 1,000 UNITS/HR Discontinued Medications Generic Name Dose Route Start Last Admin Trade Name Freq PRN Reason Stop Dose Admin Heparin Sodium (Porcine) 5,000 unit 02/16/25 14:30 02/16/25 14:49 Heparin Sodium 5,000 Unit/Ml Vial IV 02/16/25 14:31 5,000 unit ONCE ONE Administration Miscellaneous 1 each 02/16/25 14:15 02/16/25 15:21 Heparin Drip Consult NOTAPPLIC 03/18/25 14:14 Not Given CONSULT PHARMACY KATHLEEN ORDERS Category Date Time Status Cardiology Consult [Consult to Cardiology] [CONS] Cons 02/16/25 14:17 Active Routine XR chest portable Stat Exams 02/16/25 13:51 Ordered Activated Partial Thrombo Time Stat Lab 02/16/25 13:53 Completed Complete Blood Count Auto Diff Stat Lab 02/16/25 13:53 Completed Comprehensive Metabolic Panel Stat Lab 02/16/25 13:53 Completed Lipid Panel Stat Lab 02/16/25 13:53 Completed Magnesium Stat Lab 02/16/25 13:53 Completed NT Pro Brain Natriuretic Pep. Stat Lab 02/16/25 13:53 Completed PTT Heparin (inpatient only) Stat Lab 02/16/25 13:53 Completed Prothrombin Time INR Stat Lab 02/16/25 13:53 Completed Troponin I Q3H Lab 02/16/25 17:00 Ordered Troponin I Q3H Lab 02/16/25 20:00 Ordered Troponin I Stat Lab 02/16/25 13:53 Completed UDS [Drug Screen,Urine] Stat Lab 02/16/25 14:17 Ordered MDM Narrative Medical Decision Narrative: In summary, patient is a 64-year-old male PMHx obesity, history of tobacco use, ACS, NSTEMI, carotid arterial disease, HLD, GERD, hypertension who presents to the ED for chest pain after being called by the senior stereo compiler team lead today. Patient states he was in this hospital yesterday and underwent a cardiac cath where he was told he had multivessel disease and needed open heart surgery, patient signed out AMA. Patient states he has been going through a difficult time as his girlfriend recently passed. He presents today agreeable to be transferred. [employer] has already spoke to and patient has been accepted by Dr. Hinds. Patient denies fever, chills, headache, visual disturbances, posterior neck pain, back pain, abdominal pain, nausea, vomiting. Upon initial evaluation in the ED patient is alert, oriented and cooperative. His physical exam is unremarkable. No chest wall tenderness. Discussed with patient we will obtain EKG, CXR and labs today. I confirm that he is still agreeable to [facility] transfer. Will contact to confirm and obtain bed. CBC unremarkable for any leukocytosis, stable H&H. CMP unremarkable. Troponin 0.21, BNP 3,440. LDL 77.48, HDL 37. Patient started on heparin drip. Patient is on a wait list at , will be admitted to hospital medicine at [facility] until bed is available at . Patient is agreeable at this time. <Anais Iglesias, DO - Last Filed: 02/16/25 14:17> Vital Signs Vital Signs: 02/16/25 13:51 02/16/25 14:00 02/16/25 14:40 Temperature 97.2 F L 98 F Temperature Source Oral Oral Pulse Rate 63 65 Pulse Rate [Right Radial] 60 Respiratory Rate 18 20 15 Blood Pressure 155/65 H 153/89 H Blood Pressure [Right Arm] 172/76 H Blood Pressure Mean [Right Arm] 108 Blood Pressure Source Automatic Cuff Blood Pressure Source [Right Arm] Automatic Cuff Blood Pressure Position Sitting Blood Pressure Position [Right Arm] Sitting 02 Sat by Pulse Oximetry 99 97 Oxygen Delivery Method Room Air Room Air Lab Data Labs: Lab Results 02/16/25 13:53: WBC 8.1, RBC 4.41 L, Hgb 11.2 L, Hct 35.5 L, MCV 80.5, MCH 25.4 L, MCHC 31.5 L, RDW 15.9, Plt Count 305 D, MPV 10.8 H, Neut % (Auto) 56.3, Lymph % (Auto) 30.8, [place] % (Auto) 10.7 H, Eos % (Auto) 1.5, Baso % (Auto) 0.5, Neut # (Auto) 4.6, Lymph # (Auto) 2.5, [place] # (Auto) 0.9, Eos # (Auto) 0.1, Baso # (Auto) 0.0, PT 11.0, INR 0.98, APTT 27.9 02/16/25 13:53: APTT 27.6 L, Sodium 139, Potassium 3.5, Chloride 104, Carbon Dioxide 25, Anion Gap 13.5, BUN 18, Creatinine 0.80, Estimated Creat Clear 77, Estimated GFR 97, Est GFR ( Amer) 117, Glucose 94, Calcium 9.3, Magnesium 1.9, Total Bilirubin 0.6, AST 38 D, ALT 22 D, Alkaline Phosphatase 68, T roponin I 0.21 H, NT-Pro-B Natriuret Pep 3440 H, Total Protein 8.1 D, Albumin 4.6 D, Globulin 3.5 H, Albumin/Globulin Ratio 1.3, Triglycerides 136, Cholesterol 143, LDL Cholesterol Direct 77.48 L, VLDL Cholesterol 27, HDL Cholesterol 37 L, Cholesterol/HDL Ratio 3.9 H Response Orders (Tests/Meds): ED MEDICATIONS Generic Name Dose Route Start Last Admin Trade Name Freq PRN Reason Stop Dose Admin Heparin Sodium/Dextrose 500 mls @ 20 mls/hr 02/16/25 14:30 02/16/25 14:49 Heparin 25,000 Units In D5w 500ml Premix IV 03/18/25 14:29 20 mls/hr .Q25H KATHLEEN Administration 1,000 UNITS/HR Discontinued Medications Generic Name Dose Route Start Last Admin Trade Name Freq PRN Reason Stop Dose Admin Heparin Sodium (Porcine) 5,000 unit 02/16/25 14:30 02/16/25 14:49 Heparin Sodium 5,000 Unit/Ml Vial IV 02/16/25 14:31 5,000 unit ONCE ONE Administration Miscellaneous 1 each 02/16/25 14:15 02/16/25 15:21 Heparin Drip Consult NOTAPPLIC 03/18/25 14:14 Not Given CONSULT PHARMACY KATHLEEN ORDERS Category Date Time Status Cardiology Consult [Consult to Cardiology] [CONS] Cons 02/16/25 14:17 Active Routine XR chest portable Stat Exams 02/16/25 13:51 Ordered Activated Partial Thrombo Time Stat Lab 02/16/25 13:53 Completed Complete Blood Count Auto Diff Stat Lab 02/16/25 13:53 Completed Comprehensive Metabolic Panel Stat Lab 02/16/25 13:53 Completed Lipid Panel Stat Lab 02/16/25 13:53 Completed Magnesium Stat Lab 02/16/25 13:53 Completed NT Pro Brain Natriuretic Pep. Stat Lab 02/16/25 13:53 Completed PTT Heparin (inpatient only) Stat Lab 02/16/25 13:53 Completed Prothrombin Time INR Stat Lab 02/16/25 13:53 Completed Troponin I Q3H Lab 02/16/25 17:00 Ordered Troponin I Q3H Lab 02/16/25 20:00 Ordered Troponin I Stat Lab 02/16/25 13:53 Completed UDS [Drug Screen,Urine] Stat Lab 02/16/25 14:17 Ordered ECG Data Tracing #1: Attestation: I reviewed this ECG and interpreted as documented below: ECG Narrative: Normal sinus rhythm with an incomplete right bundle branch block noted. Nonspecific ST/T wave changes that are not significantly changed from prior EKG. No STEMI ECG initial impression date: 02/16/25 ECG initial impression time: 13:53
--- NOTE | 2025-02-16 13:50 | ECG_ITS ---
APPROVED REPORT Exam: Resting ECG HR:67 bpm ECG Measurements Heart Rate 67 AXES NV 154 P 40 QRSd 105 QRS 55 QT 398 T 48 QTc 414 Conclusion SINUS RHYTHM INCOMPLETE RIGHT BUNDLE BRANCH BLOCK [90+ ms QRS DURATION, TERMINAL R IN V1/V2, 40+ ms S IN I/aVL/V4/V5/V6] NONSPECIFIC ST & T-WAVE ABNORMALITY Nonspecific ST changes with elevation in aVR as well as depressions in lead I, 2, aVF as well as the lateral leads. Does not meet criteria for STEMI. Electronically signed by : INEZ FULLER, 02/17/2025 06:26:58
--- NOTE | 2025-02-16 13:57 | PC.NURSE ---
SPOKE WITH INTAKE AT , PT HAS BEEN ACCEPTED, WAITING FOR A BED
[2025-02-16 14:07] LABS: Albumin Level 4.6 g/dl (3.5-5.0); Chloride 104 mmol/L (98-107); Sodium 139 mmol/L (136-145)
[2025-02-16 14:08] LABS: Potassium 3.5 mmoL/L (3.5-5.1)
[2025-02-16 14:10] LABS: Alanine Aminotransferase 22 U/L (12-78); Albumin/Globulin Ratio 1.3 (1.1-1.8); Alkaline Phosphatase 68 U/L (38-126); Anion Gap 13.5 mEq/L (5-15); Aspartate Amino Transferase 38 U/L (17-59); Bilirubin,Total 0.6 mg/dl (0.2-1.3); Blood Urea Nitrogen 18 mg/dl (9-20); Calcium 9.3 mg/dl (8.4-10.2); Carbon Dioxide 25 mmol/L (22.0-30.0); Cholesterol 143 mg/dl (140-200); Creatinine Clearance Estimated 77 mL/min (50-200); Estimated Glomerular Filt Rate 97 ml/min (>60); GFR (African American) 117 ML/MIN (>60); Globulin 3.5 g/dL (1.3-3.2); Glucose 94 mg/dl (74-100); Magnesium 1.9 mg/dl (1.6-2.3); Total Protein,Serum 8.1 g/dl (6.3-8.2); Triglycerides 136 mg/dl (30-150); VLDL Cholesterol 27 mg/dL (0-40)
[2025-02-16 14:11] LABS: Chol/HDL Ratio 3.9 (1-3.5); HDL Cholesterol 37 mg/dl (40-60)
--- NOTE | 2025-02-16 14:16 | PC.NURSE ---
PITTING 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 NOTIFIED OF ADMISSION
[2025-02-16 14:18] LABS: Basophils % 0.5 % (0.1-2.0); Eosinophils # 0.1 K/mm3 (0.0-0.4); Eosinophils % 1.5 % (0.1-12.0); Hematocrit 35.5 % (42.0-52.0); Hemoglobin 11.2 g/dL (14.1-18.0); Lymphocytes # 2.5 K/mm3 (0.7-4.5); Lymphocytes % 30.8 % (10-50); Mean Corpuscular HGB Conc 31.5 g/dL (31.8-35.4); Mean Corpuscular Hemoglobin 25.4 pg (27.0-31.2); Mean Corpuscular Volume 80.5 fl (80-94); Mean Platelet Volume 10.8 fl (7.4-10.4); Monocytes # 0.9 K/mm3 (0.1-1.0); Monocytes % 10.7 % (1.7-9.3); Neutrophils # 4.6 K/mm3 (1.8-7.8); Neutrophils % 56.3 % (37.0-80.0); Platelet Count 305 K/mm3 (142-424); Red Blood Count 4.41 M/mm3 (4.60-6.20); Red Cell Distribution Width 15.9 % (11.5-17.5); White Blood Count 8.1 K/mm3 (4.8-10.8)
[2025-02-16 14:22] LABS: Direct LDL Cholesterol 77.48 mg/dL (100-129); NT Pro Brain Natriuretic Pep. 3440 pg/mL (0-125)
--- NOTE | 2025-02-16 14:25 | HMH.PHAHEP ---
[facility] Pharmacy Heparin Dosing Demographic Data Admission date:: 02/16/25 Date: 02/16/25 Time: 14:25 Allergies Allergy/AdvReac Type Severity Reaction Status Date / Time No Known Allergies Allergy Verified 09/29/24 12:33 Height: 1.8 m Weight: 104.78 kg Indication Medication therapy:: Heparin Current Indications:: MEDIUM DOSE PROTOCOL - PATIENT BEING TRANSFERRED FOR BYPASS AND AORTIC VALVE REPLACEMENT PER CARDIOLOGY NOTE CVA?: No Bleeding problem?: No Kidney disease?: No HI?: Yes Additional History:: CORONARY ARTERY DISEASE, OBESITY, ACUTE CORONARY SYNDROME, NSTEMI, HYPERLIPIDEMIA, HYPERTENSION Desired PTT range:: 50-75 seconds Labs Anticoagulation Lab Results:: 02/16/25 13:53 Hgb 11.2 L Hct 35.5 L Plt Count 305 D Monitoring Dose Monitor 1: Date: 02/16/25 Time: 13:53 PTT Result:: BASELINE PTT: 27.6 SECONDS Infusion Rate:: INITIATE HEPARIN DRIP AT 1000 UNITS/HOUR = 20 ML/HOUR AND BOLUS 5000 UNITS HEPARIN IV ONCE. Comment:: PLATELET COUNT = 305,000 PATIENT ACCEPTED TRANSFER TO PENDING A BED FOR CORONARY BYPASS AND AORTIC VALVE REPLACEMENT PER CARDIOLOGY NOTE FROM YESTERDAY. Dose Monitor 2: Date: 02/16/25 Time: 20:30 PTT Result:: NOT DRAWN, PATIENT TRANSFERRED TO AT 18:25. Infusion Rate:: PATIENT TRANSFERRED TO AT 18:25. Core Measures Is INR > or = 2 at discharge?: No Most Recent Labs:: Laboratory Results - last 24 hr 02/16/25 13:53: WBC 8.1, RBC 4.41 L, Hgb 11.2 L, Hct 35.5 L, MCV 80.5, MCH 25.4 L, MCHC 31.5 L, RDW 15.9, Plt Count 305 D, MPV 10.8 H, Neut % (Auto) 56.3, Lymph % (Auto) 30.8, [place] % (Auto) 10.7 H, Eos % (Auto) 1.5, Baso % (Auto) 0.5, Neut # (Auto) 4.6, Lymph # (Auto) 2.5, [place] # (Auto) 0.9, Eos # (Auto) 0.1, Baso # (Auto) 0.0, Sodium 139, Potassium 3.5, Chloride 104, Carbon Dioxide 25, Anion Gap 13.5, BUN 18, Creatinine 0.80, Estimated Creat Clear 77, Estimated GFR 97, Est GFR ( Amer) 117, Glucose 94, Calcium 9.3, Magnesium 1.9, Total Bilirubin 0.6, AST 38 D, ALT 22 D, Alkaline Phosphatase 68, NT-Pro-B Natriuret Pep 3440 H, Total Protein 8.1 D, Albumin 4.6 D, Globulin 3.5 H, Albumin/Globulin Ratio 1.3, Triglycerides 136, Cholesterol 143, LDL Cholesterol Direct 77.48 L, VLDL Cholesterol 27, HDL Cholesterol 37 L, Cholesterol/HDL Ratio 3.9 H Were Heparin and Warfarin started on the same day?: No If not, why?: STILL ON DRIP WHEN TRANSFERRED TO [facility].
[2025-02-16 14:32] LABS: Troponin I 0.21 ng/ml (0.00-0.034)
--- NOTE | 2025-02-16 14:40 | PC.NURSE ---
Report called to Saw Connor RN
[2025-02-16] MEDS: HEPARIN SODIUM 5,000 UNIT/ML VIAL 5000 UNIT IV (14:49)
[2025-02-16] MEDS: HEPARIN SODIUM,PORCINE/D5W 500 ML 20 UNIT IV (14:49)
[2025-02-16 15:03] LABS: Activated Partial Thrombo Time 27.9 seconds (22.8-30.6); INR 0.98 (0.9-1.1)
--- NOTE | 2025-02-16 15:05 | HMH.PHAINT1 ---
Pharmacy Intervention Comments: MEDICATION RECONCILIATION COMPLETED ON PATIENT USING EXTERNAL FILL HISTORY FROM PHARMACY. -[facility]ACK[facility] BREWER, [place]
[2025-02-16 15:13] LABS: PTT Heparin (inpatient only) 27.6 Seconds (50-75)
--- NOTE | 2025-02-16 15:50 | EXP.HPDC ---
General Admission date:: 02/16/25 *Admission Date: 02/16/25 *Chief complaint: Chest pain *History of present illness: Shelly Nelson is a 64-year-old male with medical history significant for multivessel CAD, hypertension, BPH who was recently admitted to our facility for similar symptoms of chest pain. He underwent LHC on 02/15/2025 which showed multivessel severe CAD. Our college athlete recommended CABG, and further evaluation of moderate aortic stenosis at a tertiary center. However, patient left AMA before he could be transferred to . Of note, patient unfortunately recently lost his fianc?e and has been having increased chest pain since then. Our college athlete talked to patient personally and urged him to reconsider. Patient presents again today with midsternal chest pains. Troponins peaking to 0.17. [facility] accepted patient but patient is currently on wait list. Has been started on heparin drip. [facility] Disclaimer: The information contained in this section may have been updated after the patient was seen, as this information can be updated by other users. 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 (Updated 02/19/25 @ 00:00 by Background Daemon) History of left heart catheterization COPD (chronic obstructive pulmonary disease) Screening for malignant neoplasm of colon Encounter for screening for abdominal aortic aneurysm (AAA) in patient 50 years of age or older with history of smoking Encounter for prostate cancer screening Exposure to hepatitis C Encounter for screening for diabetes mellitus Encounter for screening examination for sexually transmitted disease Neck pain Thoracic back pain Bronchitis Need for RSV immunization Left flank pain Left sided abdominal pain Cervical radiculopathy Acute viral syndrome Pharyngitis Generalized body aches Sinusitis Scalp irritation Fatigue Eustachian tube dysfunction Cervical radiculopathy Bilateral arm pain Bilateral shoulder pain Neck pain Occult blood in stools Angina at rest Shoulder pain Neck pain Abdominal pain Nerve damage Chest pain Hypertension Exposure to COVID-19 virus Corneal abrasion Amputation of finger tip Urethral colic due to calculus Renal colic on right side Surgical History (Updated 02/19/25 @ 00:00 by Background Daemon) Hx of inguinal hernia repair History of shoulder surgery History of neck surgery History of knee surgery Family History , CREDIT SUPPORT COUNSELOR) No significant family 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 (Updated 02/16/25 @ 15:10 by Alesia Pinon RN) Smoking Status: Current every day smoker tobacco type: cigarettes packs per day: 1 quit status: has quit before alcohol intake: never substance use type: denies use current occupational status: retired Travel in the last 8 weeks: None adopted: No caregiver/support person: No foster care: No household members: friend(s) housing: apartment lives independently: Yes marital status: single number of children: 3 number of grandchildren: 7 service: Yes (discharged 1985) branch: [employer] long-term: No Other 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 Have you received the Flu Vaccine for this season: No Have you received the Pneumonia Vaccine: No Exam Data for Last 24 hours Vital signs and Labs for Last 24 Hours: Temp Pulse Resp BP Pulse Ox O2 Del Method 98 F 65 15 153/89 H 97 Room Air 02/16/25 14:40 02/16/25 14:40 02/16/25 14:40 02/16/25 14:40 02/16/25 15:21 02/16/25 15:21 Laboratory Results - last 24 hr 02/16/25 13:53: WBC 8.1, RBC 4.41 L, Hgb 11.2 L, Hct 35.5 L, MCV 80.5, MCH 25.4 L, MCHC 31.5 L, RDW 15.9, Plt Count 305 D, MPV 10.8 H, Neut % (Auto) 56.3, Lymph % (Auto) 30.8, [place] % (Auto) 10.7 H, Eos % (Auto) 1.5, Baso % (Auto) 0.5, Neut # (Auto) 4.6, Lymph # (Auto) 2.5, [place] # (Auto) 0.9, Eos # (Auto) 0.1, Baso # (Auto) 0.0, PT 11.0, INR 0.98, APTT 27.9 02/16/25 13:53: APTT 27.6 L, Sodium 139, Potassium 3.5, Chloride 104, Carbon Dioxide 25, Anion Gap 13.5, BUN 18, Creatinine 0.80, Estimated Creat Clear 77, Estimated GFR 97, Est GFR ( Amer) 117, Glucose 94, Calcium 9.3, Magnesium 1.9, Total Bilirubin 0.6, AST 38 D, ALT 22 D, Alkaline Phosphatase 68, Troponin I 0.21 H, NT-Pro-B Natriuret Pep 3440 H, Total Protein 8.1 D, Albumin 4.6 D, Globulin 3.5 H, Albumin/Globulin Ratio 1.3, Triglycerides 136, Cholesterol 143, LDL Cholesterol Direct 77.48 L, VLDL Cholesterol 27, HDL Cholesterol 37 L, Cholesterol/HDL Ratio 3.9 H I & O for Last 24 hours: Intake & Output 02/13/25 02/14/25 02/15/25 02/16/25 23:59 23:59 23:59 23:59 Weight 103.136 kg Constitutional Constitutional: no acute distress *Routine HEENT Exam Head: Present normocephalic Eye: Present EOMI and PERRL ENT: Present mucous membranes moist *Routine Neck Exam Neck: Present supple; Absent lymphadenopathy *Routine Respiratory Exam Respiratory: Present CTA bilaterally *Routine Cardiovascular Exam Cardiovascular: Present RRR *Routine Abdominal Exam Abdominal: Present soft and normoactive bowel sounds; Absent tenderness *Routine Rectal Exam Rectal:: deferred *Routine Genitalia Exam Genitalia:: deferred *Routine Extremities Exam Extremities: Absent cyanosis, clubbing or edema *Routine Skin Exam Skin: Present warm; Absent rash *Routine Neurological Exam Neurological: Present alert and oriented X3 Meds Home Medications and Allergies Home Medications ?Medication ?Instructions ?Recorded ?Confirmed ?Type amlodipine 10 mg tablet 10 mg PO DAILY #90 tabs 03/10/24 02/16/25 Rx bisoprolol fumarate 5 mg tablet 5 mg PO DAILY #90 tabs 03/10/24 02/16/25 Rx famotidine 20 mg tablet (Pepcid) 20 mg PO BID #180 tabs 03/10/24 02/16/25 Rx tamsulosin 0.4 mg capsule (Flomax) 0.4 mg PO DAILY #30 caps 09/28/24 02/16/25 Rx tadalafil 5 mg tablet 5 mg PO NEEDED PRN Sexual 02/14/25 02/16/25 History Activity lisinopril 40 mg tablet 40 mg PO DAILY 02/16/25 02/16/25 History New Prescriptions to Start Prescriptions: Allergies Allergy/AdvReac Type Severity Reaction Status Date / Time No Known Allergies Allergy Verified 09/29/24 12:33 Hospital Course Hospital Course Hospital Course: Shelly Nelson is a 64-year-old male with medical history significant for multivessel CAD, hypertension, BPH who was recently admitted to our facility for similar symptoms of chest pain. He underwent LHC on 02/15/2025 which showed multivessel severe CAD. Our college athlete recommended CABG, and further evaluation of moderate aortic stenosis at a tertiary center. However, patient left AMA before he could be transferred to . Of note, patient unfortunately recently lost his fianc?e and has been having increased chest pain since then. Our college athlete talked to patient personally and urged him to reconsider. Patient presents again today with midsternal chest pains. Troponins peaking to 0.17. [facility] accepted patient but patient is currently on wait list. Has been started on heparin drip. #NSTEMI #Muscle multivessel CAD #Moderate aortic stenosis #Chest pain ? LHC on 02/15/2025 revealed severe stenosis in LMA, PDA, LCx for which our college athlete recommended CABG. Patient initially left AMA a few days ago, but returned at the urging of Dr. Templeton. ? ECHO revealed LVEF 45%. ? [facility] grac[facility] accepted patient for further evaluation and management. He is currently on heparin drip, no chest pains. Patient will be transported in stable condition at this time. #Hypertension ? Resume home BP meds once reconciled. #BPH ? Continue home tamsulosin. Total time spent on discharge: 32 minutes on chart review, counseling, documentation, and direct care with patient. Results Data Completed and Pending Labs on day of discharge: Labs from last 24 hours 02/16/25 02/16/25 13:53 13:53 WBC 8.1 RBC 4.41 L Hgb 11.2 L Hct 35.5 L MCV 80.5 MCH 25.4 L MCHC 31.5 L RDW 15.9 Plt Count 305 D MPV 10.8 H Neut % (Auto) 56.3 Lymph % (Auto) 30.8 [place] % (Auto) 10.7 H Eos % (Auto) 1.5 Baso % (Auto) 0.5 Neut # (Auto) 4.6 Lymph # (Auto) 2.5 [place] # (Auto) 0.9 Eos # (Auto) 0.1 Baso # (Auto) 0.0 PT 11.0 INR 0.98 APTT 27.6 L 27.9 Sodium 139 Potassium 3.5 Chloride 104 Carbon Dioxide 25 Anion Gap 13.5 BUN 18 Creatinine 0.80 Estimated Creat Clear 77 Estimated GFR 97 Est GFR ( Amer) 117 Glucose 94 Calcium 9.3 Magnesium 1.9 Total Bilirubin 0.6 AST 38 D ALT 22 D Alkaline Phosphatase 68 Troponin I 0.21 H NT-Pro-B Natriuret Pep 3440 H Total Protein 8.1 D Albumin 4.6 D Globulin 3.5 H Albumin/Globulin Ratio 1.3 Triglycerides 136 Cholesterol 143 LDL Cholesterol Direct 77.48 L VLDL Cholesterol 27 HDL Cholesterol 37 L Cholesterol/HDL Ratio 3.9 H Discharge Plan Disposition Patient Disposition: Xfer Short-Term Hosp Condition: Fair Discharge Order Discharge Orders: Discharge Order (Routine); Ordered 02/16/25 Ordered By: Murtaza Blanco Follow up Plan Prescriptions/Medication Reconciliation: No Action amlodipine 10 mg tablet 10 mg PO DAILY Qty: 90 3RF bisoprolol fumarate 5 mg tablet 5 mg PO DAILY Qty: 90 3RF famotidine [Pepcid] 20 mg tablet 20 mg PO BID Qty: 180 3RF tamsulosin [Flomax] 0.4 mg capsule 0.4 mg PO DAILY Qty: 30 3RF tadalafil 5 mg tablet 5 mg PO NEEDED PRN (Reason: Sexual Activity) lisinopril 40 mg tablet 40 mg PO DAILY Problem Reconciliation Problems Reviewed?: Yes Patient Discharge Instructions Stand Alone Forms: Transfer Record Patient Instructions: Coronary Artery Disease, DI for Chest Pain Print Language: Grenadian Providers Primary Care Provider: Kiera Castro Admit Provider: Murtaza Blanco Attending Provider: Murtaza Blanco
--- NOTE | 2025-02-16 16:35 | HMH.ITSTN ---
NAGELICA Osborn to let us know if CXR is still wanted
[2025-02-16 17:25] LABS: Troponin I 0.17 ng/ml (0.00-0.034)
--- NOTE | 2025-02-16 18:47 | PC.NURSE ---
1556 called report to Pierre at [facility] 6th floor. 1642 called dispatch to contact EMS for transfer to 1748 received notification from tree warden that pt room at has been changed. pt now going to [facility] 9th floor room 137. 1749 EMS at bedside awaiting report to be called 1750 attempted to call provided number numerous times. no answer. 1755 called Pierre on previous unit where report was given, she contacted new nurse through [employer] (charting system) to have her call for report. 1808 called [facility]'s as no call has been received from 9th floor as of yet. 1816 report called to elida on 9th floor [facility] room 137. 1825 EMS transported pt to
--- OUTSIDE RECORDS SUMMARY | 2025-02-18 21:21 | XMS_ITS ---
Care Plan - [facility], [facility] Created on: February 18, 2025 Shelly Nelson : 1960 Sex: Male Author Organization [facility] , [facility] Address [address] [place] [address] Phone Care Team Providers Care Clinical Laboratory Director Name Role Phone Geraldo CORRALES, Anitra Unavailable Unavailable Sarah CORRALES, Rosa M Unavailable [phone]
--- OUTSIDE RECORDS SUMMARY | 2025-02-18 21:21 | XMS_ITS | Clinical Summary ---
Author Organization [facility] , [facility] Address [address] [place] [address] Phone Care Team Providers Care Fruit Dumper Name Role Phone Geraldo CORRALES, Anitra Unavailable Unavailable Sarah CORRALES, Rosa M Unavailable [phone] Reason for Visit and Chief Complaint The Chief Complaint is: Cervical Pain Problems Includes: Problems addressed during this encounter and other active Problems Current Visit Onset Date Resolved Date Provider Harleen viramontes Status Neck Pain 01/23/2023 Rosa M Smith MD Active Last Documented On 3 9:04AM ; [facility] Plan of Treatment Pending Tests Order Diagnosis Results Due Ordering P rovider Therapy - Physical Therapy Cervical 01/23/23 Rosa M Smith MD Last Documented On 3 10:27AM ; [facility] Procedure/Tests EMG 02/06/23 Rosa M Ellsworth MD Last Documented On 3 10:27AM ; [facility], [facility] Procedure/Tests Nerve Conduction Study 02/06/23 Rosa M Smith MD Last Documented On 3 10:27AM ; [facility] Radiology - CT Scan Cervical 02/06/23 Mckenna Smith MD Last Documented On 3 10:27AM ; [facility] Procedure/Tests EMG Radiculopathy, cervical region 04/01/23 Rosa M Blum MD Last Documented On 3 5:04PM ; [facility], [facility] Procedure/Tests Nerve Conduction Study Radiculopathy, cervical region 04/01/23 Rosa M Smith MD Last Documented On 3 5:04PM ; [facility] Instructions to patient Intervention and counseling on cessation of tobacco use Last Documented On 3 9:53AM ; [facility] Lose weight Last Documented On 3 9:05AM ; [facility], [facility] Assessments Includes: Assessments from this encounter Findings This is 62-year-old man status post C7-T1 anterior cervical discectomy and fusion 10 years ago at an outside hospital now with a predominant complaint of neck pain as well as bilateral hand numbness - Last Documented On 01/23/2023 10:27AM ; [facility], [facility] It was interesting meeting Mr. Nelson in [...] Documented On 01/23/2023 10:27AM ; [facility], [facility] Instructions Includes: Instructions from this encounter Instructions to patient Intervention and counseling on cessation of tobacco use Last Documented On 3 9:53AM ; [facility] Lose weight Last Documented On 3 9:05AM ; [facility] Medical Equipment - Implanted Devices Includes: Current [...] to three times a day, PRN Pharmacy: [facility] [phone] , [place] [address] - Last Documented On 3 9:39AM By Sharri Philippe ; [facility], [facility] Current Medications (continue as prescribed) amLODIPine Besylate 5 MG Oral Tablet 01/03/2023 Prov ider: Diagnosis: Last Documented On 3 9:05AM By Sharri Philippe ; [facility] Lisinopril 40 MG Oral Tablet 01/03/2023 Provider: Diagnosis: Last Documented On 3 9:05AM By Sharri Philippe ; [facility] Loratadine 10 MG Oral Tablet 01/03/2023 Provider: Diagnosis: Last Documented On 3 9:05AM By Sharri Philippe ; [facility], [facility] Pantoprazole Sodium 40 MG Oral Tablet Delayed Release 11/01/2022 Provider: Diagnosis: Last Documented On 3 9:05AM By Sharri Philippe ; [facility], [facility] Diclofenac Sodium 1% External Gel 10/27/2022 Provide r: Diagnosis: Last Documented On 3 9:05AM By Sharri Philippe ; [facility], [facility] Medications Administered Includes: Administered Medications from this encounter No Administered Medications Recorded Vital Signs Includes: Vital Signs from this encounter Vital Name 01/23/2023 09:19A Height (in) 71 Weight (lb) 227 Body Mass Index 31.7 Body Surface Area 2.2 Note: bb Last Documented: On 01/23/2023 9:19AM ; [facility], [facility] Results Includes: Results discussed during this encounter [...] in his neck 10 years ago in [facility] but does not remember the surgeon [...] 01/23/2023 Last Documented On 3 10:27AM ; [facility] Smoking Status Unknown Procedures and [...] an X-ray was performed 12/03/2022 Nadia @ [facility] [id number] Last Documented On 3 10:27AM ; [facility] an MRI was performed 12/27/2022 Nadia @ [facility] [id number] Last Documented On 3 10:27AM ; [facility] Surgical History Last Updated Past Surgical History: C7-T1 ACDF 2022 Last Documented On 3 10:27AM ; [facility], [facility] 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 Includes: 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 addressed during this encounter Description Last Updated History of Heartburn / Acid Reflux 01/23 Last Documented On 3 10:27AM ; [facility] History of Hypertension 01/23/2023 Last Documented On 3 10:27AM ; [facility] Family History Includes: Family History addressed during this encounter Description Last Updated No significant family history 01/23/2023 Last Documented On 3 10:27AM ; [facility] Review of Systems Includes: Review of [...] 1 01/23/2023 Complete (Refused - Patient objection) [facility], [facility] Last Documented On 3 9:52AM ; [facility] PCV (Pneumovax 23) 1 01/23/2023 Suspended (Contraindicated) [facility] Last Documented On 3 9:52AM ; [facility] Allergies Includes: Active Allergies No Known Allergies Encounters Encounter Provider Location Date Check-In Time Check-Out Time Diagnosis Physician Specified Rosa M lee MD [facility] 01/24/20 23 9:08AM 9:33AM Insurance Includes: Active Insurance Policies Plan Name Member ID Group # Subscriber Relationship Effect gaby Dates 1 - [facility] [id number] Shelly Nelson Self Clinical Notes Includes: Clinical Notes from this encounter * Progress note Date Encounter Last Documented by 01/23/2023 Physician Specified Last karla chong on 01/23/2023; 10:27 AM, Rosa M Smith MD; [facility], [facility] Active Problems & Conditions - Neck Pain [...] in his neck 10 years ago in [facility] but does not remember the surgeon [...] X-ray was performed 12/03/2022 [facility]. MRI Scan: An MRI was performed 12/27/2022 [facility]. Therapy - Intervention and counseling [...]
--- OUTSIDE RECORDS SUMMARY | 2025-02-18 21:21 | XMS_ITS ---
Author Organization [facility] , [facility] Address [address] [place] [address] Phone Care Team Providers Care Snubber Name Role Phone Geraldo CORRALES, Anitra Unavailable Unavailable Sarah CORRALES, Rosa M Unavailable [phone] Problems Includes: Active, inactive, and resolved Problems All Visits Onset Date Resolved Date Provider Condition S tatus Neck Pain 01/23/2023 Rosa M Smith MD Active Last Documented On 3 9:04AM ; [facility] Plan of Treatment Pending Tests Order Diagnosis Results Due Ordering P rovider Procedure/Tests EMG 02/06/23 Rosa M Ellsworth MD Last Documented On 3 10:27AM ; [facility] Procedure/Tests Nerve Conduction Study 02/06/23 Rosa M Smith MD Last Documented On 3 10:27AM ; [facility] Radiology - CT Scan Cervical 02/06/23 Mckenna Smith MD Last Documented On 3 10:27AM ; [facility] Procedure/Tests EMG Radiculopathy, cervical region 04/01/23 Rosa M Blum MD Last Documented On 3 5:04PM ; [facility] Procedure/Tests Nerve Conduction Study Radiculopathy, cervical region 04/01/23 Rosa M Smith MD Last Documented On 3 5:04PM ; [facility] Referrals To Diagnosis Consult with Orthopedic Radiculo sony, cervical region Note: Right Shoulder Dr. Noel Madsen Last Documented On 3 5:04PM ; [facility], [facility] Instructions to patient Intervention and counseling on cessation of tobacco use Last Documented On 3 2:07PM ; [facility] Lose weight Last Documented On 3 1:46PM ; [facility] Intervention and counseling on cessation of tobacco use Last Documented On 3 9:53AM ; [facility] Lose weight Last Documented On 3 9:05AM ; [facility] Assessments Includes: Assessments for all patient encounters No Assessments Recorded Instructions Includes: Instructions for all patient encounters Instructions to patient Intervention and counseling on cessation of tobacco use Last Documented On 3 2:07PM ; [facility] Lose weight Last Documented On 3 1:46PM ; [facility] Intervention and counseling on cessation of tobacco use Last Documented On 3 9:53AM ; [facility] Lose weight Last Documented On 3 9:05AM ; [facility], [facility] Medical Equipment - Implanted Devices Includes: Current and historical Devices No Medical Equipment Recorded Medications Includes: Current and historical Medications Current Medications (continue as prescribed) amLODIPine Besylate 5 MG Oral Tablet 01/03/2023 Prov ider: Diagnosis: Last Documented On 3 9:05AM By Sharri Philippe ; [facility] Lisinopril 40 MG Oral Tablet 01/03/2023 Provider: Diagnosis: Last Documented On 3 9:05AM By Sharri Philippe ; [facility], [facility] Loratadine 10 MG Oral Tablet 01/03/2023 Provider: Diagnosis: Last Documented On 3 9:05AM By Sharri Philippe ; [facility], [facility] Pantoprazole Sodium 40 MG Oral Tablet Delayed Release 11/01/2022 Provider: Diagnosis: Last Documented On 3 9:05AM By Sharri Philippe ; [facility], [facility] Diclofenac Sodium 1% External Gel 10/27/2022 Provide r: Diagnosis: Last Documented On 3 9:05AM By Sharri Philippe ; [facility], [facility] Past Medications on file Methocarbamol 750 MG Oral Tablet 01/23/2023 - 02/22/2023 Provider: Rosa M Shipley MD Diagnosis: Take 1 tablet PO up to three times a day, PRN Last Documented On 3 9:39AM By Sharri Philippe ; [facility], [facility] Medications Administered Includes: Administered Medications in patient's chart No Administered Medications Recorded Results Includes: Results from 02/19/2024 through 02/18/2025 No Results Recorded For Specified Dates History of Present Illness History of Present Illness not supported for this document type No History of Present Illness Recorded Social History Description Last Updated Tobacco use 01/23/2023 Last Documented On 3 10:27AM ; [facility], [facility] Yes, current smoker. 2.5 packs per day 0 01/23/2023 Last Documented On 3 10:27AM ; [facility], [facility] Caffeine use 01/23/2023 Last Documented On 3 10:27AM ; [facility], [facility] No recent change in diet 01/23/2023 Last Documented On 3 10:27AM ; [facility], [facility] Not exercising regularly 01/23/2023 Last Documented On 3 10:27AM ; [facility], [facility] Not using alcohol 01/23/2023 Last Documented On 3 10:27AM ; [facility], [facility] Not using drugs 01/23/2023 Last Documented On 3 10:27AM ; [facility], [facility] Smoking Status Unknown Procedures and Surgical History Surgical History Last Updated Past Surgical History: C7-T1 ACDF 2022 Last Documented On 3 10:27AM ; [facility], [facility] 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 Includes: 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 in patient's chart Description Last Updated History of Heartburn / Acid Reflux 01/23 Last Documented On 3 10:27AM ; [facility], [facility] History of Hypertension 01/23/2023 Last Documented On 3 10:27AM ; [facility], [facility] Family History Includes: Family History in patient's chart Description Last Updated No significant family history 01/23/2023 Last Documented On 3 10:27AM ; [facility], [facility] Review of Systems Review of Systems [...] 1 01/23/2023 Complete (Refused - Patient objection) [facility], [facility] Last Documented On 3 9:52AM ; [facility] PCV (Pneumovax 23) 1 01/23/2023 Suspended (Contraindicated) [facility] Last Documented On 3 9:52AM ; [facility], [facility] Allergies Includes: Active, inactive, and resolved Allergies No Known Allergies Insurance Includes: Active Insurance Policies Plan Name Member ID Group # Subscriber Relationship Effect gaby Dates 1 - [facility] [id number] Shelly Nelson Self Clinical Notes Includes: Signed Clinical Notes starting from 10/25/2022 No Clinical Notes Recorded
--- OUTSIDE RECORDS SUMMARY | 2025-02-18 21:21 | XMS_ITS | Clinical Summary ---
Author Organization [facility] , [facility] Address [address] [place] [address] Phone Care Team Providers Care Parts Remover Name Role Phone Geraldo CORRALES, Anitra Unavailable Unavailable Sarah CORRALES, Rosa M Unavailable [phone] Reason for Visit and Chief Complaint The Chief Complaint is: Cervical Pain Problems Includes: Problems addressed during this encounter and other active Problems All Visits Onset Date Resolved Date Provider Condition S tatus Neck Pain 01/23/2023 Rosa M Smith MD Active Last Documented On 3 9:04AM ; [facility] Plan of Treatment Pending Tests Order Diagnosis Results Due Ordering P abisai Procedure/Tests EMG 02/06/23 Rosa M Ellsworth MD Last Documented On 3 10:27AM ; [facility] Procedure/Tests Nerve Conduction Study 02/06/23 Rosa M Smith MD Last Documented On 3 10:27AM ; [facility] Radiology - CT Scan Cervical 02/06/23 Mckenna Smith MD Last Documented On 3 10:27AM ; [facility] Therapy - Physical Therapy Cervical Radiculopathy, cervical region 03/18/23 Rosa M Smith MD Last Documented On 3 5:04PM ; [facility] Procedure/Tests EMG Radiculopathy, cervical region 04/01/23 Rosa M Blum MD Last Documented On 3 5:04PM ; [facility], [facility] Procedure/Tests Nerve Conduction Study Radiculopathy, cervical region 04/01/23 Rosa M Smith MD Last Documented On 3 5:04PM ; [facility], [facility] Referrals To Diagnosis Consult with Orthopedic Radiculo sony, cervical region Note: Right Shoulder Dr. Noel Madsen Last Documented On 3 5:04PM ; [facility], [facility] Instructions to patient Intervention and counseling on cessation of tobacco use Last Documented On 3 2:07PM ; [facility], [facility] Lose weight Last Documented On 3 1:46PM ; [facility], [facility] Assessments Includes: Assessments from this encounter Findings This is a 62-year-old man with cervical radiculopathy in addition to likely internal derangement of the right shoulder and probably left shoulder - Last Documented On 02/10/2024 4:40PM ; [facility], [facility] It is always interesting seeing Almas back [...] - Last Documented On 02/10/2024 4:40PM ; [facility], [facility] Instructions Includes: Instructions from this encounter Instructions to patient Intervention and counseling on cessation of tobacco use Last Documented On 3 2:07PM ; [facility], [facility] Lose weight Last Documented On 3 1:46PM ; [facility], [facility] Medical Equipment - Implanted Devices Includes: Current Devices No Medical Equipment Recorded Medications Includes: Medications discussed during this encounter and other current Medications Current Medications (continue as prescribed) amLODIPine Besylate 5 MG Oral Tablet 01/03/2023 Prov ider: Diagnosis: Last Documented On 3 9:05AM By Sharri Philippe ; [facility], [facility] Lisinopril 40 MG Oral Tablet 01/03/2023 Provider: Diagnosis: Last Documented On 3 9:05AM By Sharri Philippe ; [facility], [facility] Loratadine 10 MG Oral Tablet 01/03/2023 Provider: Diagnosis: Last Documented On 3 9:05AM By Sharri Philippe ; [facility] Pantoprazole Sodium 40 MG Oral Tablet Delayed Release 11/01/2022 Provider: Diagnosis: Last Documented On 3 9:05AM By Sharri Philippe ; [facility] Diclofenac Sodium 1% External Gel 10/27/2022 Provide r: Diagnosis: Last Documented On 3 9:05AM By Sharri Philippe ; [facility] Past Medications on file Methocarbamol 750 MG Oral Tablet 01/23/2023 - 02/22/2023 Provider: Rosa M Shipley MD Diagnosis: Take 1 tablet PO up to three times a day, PRN Last Documented On 3 9:39AM By Sharri Philippe ; [facility] Medications Administered Includes: Administered Medications from this encounter No Administered Medications Recorded Vital Signs Includes: Vital Signs from this encounter Vital Name 03/18/2023 02:07P Height (in) 71 Weight (lb) 243 Body Mass Index 33.9 Body Surface Area 2.3 Note: bb Last Documented: On 03/18/2023 2:07PM ; [facility] Results Includes: Results discussed during this [...] Documented On 3 1:45PM ; [facility] Yes, current smoker. 2.5 packs per day 0 01/23/2023 Last Documented On 3 1:45PM ; [facility] Caffeine use 01/23/2023 Last Documented On 3 1:45PM ; [facility] No recent change in diet 01/23/2023 Last Documented On 3 1:45PM ; [facility] Not exercising regularly 01/23/2023 Last Documented On 3 1:45PM ; [facility] Not using alcohol 01/23/2023 Last Documented On 3 1:45PM ; [facility] Not using drugs 01/23/2023 Last Documented On 3 1:45PM ; [facility], [facility] Smoking Status Unknown Procedures and Surgical History Includes: Procedures from this encounter Procedures Code Diagnosis Performing Provider Service L ocation Service Date intervention and counseling on cessation of tobacco use 4000F Last Documented On 3 2:07PM ; [facility] use of tobacco assessment performed 1000F Last Documented On 3 2:07PM ; [facility] EMG 03/14/2023 [facility] @ [facility] [id number] Last Documented On 3 2:19PM ; [facility] an X-ray was performed 12/03/2022 [facility] @ [facility] [id number] Last Documented On 3 1:46PM ; [facility] CT scan 02/25/2023 [facility] @ [facility] [id number] Last Documented On 3 2:19PM ; [facility] an MRI was performed 12/27/2022 [facility] @ [facility] [id number] Last Documented On 3 1:46PM ; [facility] Surgical History Last Updated Past Surgical History: C7-T1 ACDF 2022 Last Documented On 3 1:45PM ; [facility] 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 Includes: 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 addressed during this encounter Description Last Updated History of Heartburn / Acid Reflux 01/23 Last Documented On 3 1:45PM ; [facility] History of Hypertension 01/23/2023 Last Documented On 3 1:45PM ; [facility] Family History Includes: Family History addressed during this encounter Description Last Updated No significant family history 01/23/2023 Last Documented On 3 1:45PM ; [facility] Review of Systems Includes: Review of [...] Diagnosis Follow Up Rosa M saleem MD [facility] 3 1:44PM 3:22PM Insurance Includes: Active Insurance Policies Plan Name Member ID Group # Subscriber Relationship Effect gaby Dates 1 - [facility] [id number] Shelly Nelson Self Clinical Notes Includes: Clinical Notes from this encounter * Progress note Date Encounter Last Documented by 03/18/2023 Follow Up Last documented on 02/10/2024; 4:40 PM, Rosa M Blum MD; [facility], [facility] Active Problems & Conditions - Neck [...] Studies: Neuro-Electrical Functions: EMG 03/14/2023 [facility] @ [facility]. Imaging: X-Ray: An [facility]. CT Scan: CT scan 02/25/2023 [facility] @ [facility]. MRI Scan: An MRI was performed 12/27/2022 [facility] @ [facility]. Therapy - Intervention and counseling on cessation [...]
== END 2025-02-16 18:25 | disposition short-term general hospital (02) ==
LOC: ER 13:56 → 2ND 14:22
PROVIDERS: Nurse Practitioner; Admitting Provider Student in an Organized Health Care Education/Training Program; Emergency Provider Emergency Medicine; PCP Nurse Practitioner Family; Visit Provider Student in an Organized Health Care Education/Training Program
DX: I21.4 Non-ST elevation (NSTEMI) myocardial infarction (principal); N40.0 Benign prostatic hyperplasia without lower urinary tract symptoms; I25.10 Atherosclerotic heart disease of native coronary artery without angina pectoris; I10 Essential (primary) hypertension; I45.10 Unspecified right bundle-branch block; E78.5 Hyperlipidemia, unspecified; F17.210 Nicotine dependence, cigarettes, uncomplicated; Z79.899 Other long term (current) drug therapy; Z91.85 Personal history of military service; Z28.310 Unvaccinated for COVID-19; Z28.39 Other underimmunization status; E66.9 Obesity, unspecified; Z68.30 Body mass index [BMI] 30.0-30.9, adult
CPT/HCPCS: 36415; 80053; 80061; 83735; 83880; 84484; 85025; 85610; 85730; 93005; 99285; G0378; J1644

== ENCOUNTER 2025-03-11 23:38 | Emergency (ER) | payer MEDICARE, OTHER, SELFPAY ==
--- NOTE | 2025-03-11 23:43 | ECG_ITS ---
APPROVED REPORT Exam: Resting ECG HR:116 bpm ECG Measurements Heart Rate 116 AXES QRSd 101 QRS 5 QT 348 T 108 QTc 417 Conclusion ATRIAL FIBRILLATION WITH RAPID VENTRICULAR RESPONSE ST DEVIATION AND MODERATE T-WAVE ABNORMALITY, CONSIDER LATERAL ISCHEMIA [-0.1+ mV T-WAVE IN I/aVL/V5/V6] No STEMI Electronically signed by : INEZ FULLER, 03/12/2025 02:45:04
--- NOTE | 2025-03-11 23:54 | XR_ITS ---
PROCEDURE INFORMATION: Exam: XR Chest Exam date and time: 03/12/2025 12:23 AM Age: 64 years old Clinical indication: Pain; Chest pressure; Additional info: Cp TECHNIQUE: Imaging protocol: Radiologic exam of the chest. Views: 1 view. COMPARISON: CT ANGIO CHEST PE PROTOCOL 02/15/2025 11:54 AM FINDINGS: Lungs: There is patchy airspace disease within right lower lung zone. Pleural spaces: Unremarkable. No pleural effusion. No pneumothorax. Heart/Mediastinum: The heart is enlarged. Vasculature: Unremarkable. Bones/joints: Unremarkable. IMPRESSION: Patchy airspace disease right lower lung zone suspicious for pneumonia.
--- NOTE | 2025-03-11 23:54 | CT_ITS ---
PROCEDURE INFORMATION: Exam: CTA Chest With Contrast Exam date and time: 03/12/2025 12:31 AM Age: 64 years old Clinical indication: Pain; Chest pressure; Additional info: Chest pain tachy recent [id number] TECHNIQUE: Imaging protocol: Computed tomographic angiography of the chest with contrast. Exam focused on the arteries. 3D rendering (Not supervised by radiologist): MIP and/or 3D reconstructed images were created by the technologist. Radiation optimization: All CT scans at this facility use at least one of these dose optimization techniques: automated exposure control; mA and/or kV adjustment per patient size (includes targeted exams where dose is matched to clinical indication); or iterative reconstruction. Contrast material: ISOVUE; Contrast volume: 70 ml; Contrast route: INTRAVENOUS (IV); COMPARISON: CT ANGIO CHEST PE PROTOCOL 02/15/2025 11:54 AM FINDINGS: Pulmonary arteries: Normal. No pulmonary emboli. Aorta: Moderate to severe atherosclerotic disease of the juxtarenal and infrarenal aorta included on this study. Lungs: There is atelectasis of the anterior right middle lobe. Diffuse mild interstitial prominence. There are scattered bandlike densities consistent with atelectasis and/or scarring. Pleural spaces: There is a small right and trace left pleural effusion. There is some loculated fluid within the anterior right lower hemithorax. Heart: The prosthetic aortic valve is noted. Coronary arteries: There is evidence of prior CABG. Lymph nodes: Unremarkable. No enlarged lymph nodes. Bones/joints: There are [id number] degenerative changes of the thoracic spine. There is evidence for ACDF Soft tissues: Unremarkable. IMPRESSION: 1. No pulmonary embolus. 2. Postsurgical changes consistent with recent CABG and aortic valve replacement. 3. Diffuse mild interstitial prominence likely representing edema. There are small bilateral pleural effusions with some loculation anteriorly on the right. There is anterior right middle lobe atelectasis with scattered areas of bandlike density consistent with atelectasis and/or scarring.
[2025-03-11 23:56] VITALS: BP 92/60; PULSE 116; RESP 24; TEMP 36.9; O2SAT 100; BMI 30.7
[2025-03-12] VITALS (7 sets, daily range): BP systolic 105–124; BP diastolic 55–72; PULSE 91–113; RESP 18–34; TEMP 36.7; O2SAT 98–100
--- NOTE | 2025-03-12 | PC.NURSE ---
Report given to Adilia DOMINGUEZ PT in Atrial Fibrillation per continuous heart monitor
[2025-03-12 00:01] LABS: Basophils % 0.2 % (0.1-2.0); Eosinophils # 0.1 Kmm3 (0.0-0.4); Eosinophils % 0.4 % (0.1-12.0); Hematocrit 25.5 % (42.0-52.0); Hemoglobin 7.9 g/dL (14.1-18.0); Lymphocytes # 1.5 K/mm3 (0.7-4.5); Lymphocytes % 11.5 % (10-50); Mean Corpuscular Hemoglobin 27.3 pg (27.0-31.2); Mean Corpuscular Volume 88.2 fl (80-94); Mean Platelet Volume 10.2 fl (7.4-10.4); Monocytes # 0.8 K/mm3 (0.1-1.0); Monocytes % 6.4 % (1.7-9.3); Neutrophils # 10.2 K/mm3 (1.8-7.8); Neutrophils % 80.9 % (37.0-80.0); Nucleated Red Blood Cells # 0 10^3/uL; Nucleated Red Blood Cells % 0 %; Platelet Count 268 K/mm3 (142-424); Red Blood Count 2.89 M/mm3 (4.60-6.20); Red Cell Distribution Width 19.5 % (11.5-17.5); Red Cell Distribution Width-SD 61.8 fL; White Blood Count 12.6 K/mm3 (4.8-10.8)
--- OUTSIDE RECORDS SUMMARY | 2025-03-12 00:04 | XMS_ITS | Clinical Summary ---
Author Organization [facility] , [facility] Address [address] [place] [address] Phone Care Team Providers Care Choir Director Name Role Phone Geraldo CORRALES, Anitra Unavailable Unavailable Sarah CORRALES, Rosa M Unavailable [phone] Reason for Visit and Chief Complaint The Chief Complaint is: Cervical Pain Problems Includes: Problems addressed during this encounter and other active Problems Current Visit Onset Date Resolved Date Provider Harleen viramontes Status Neck Pain 01/23/2023 Rosa M Smith MD Active Last Documented On 3 9:04AM ; [facility] Plan of Treatment Pending Tests Order Diagnosis Results Due Ordering P rovider Therapy - Physical Therapy Cervical 01/23/23 Rosa M Smith MD Last Documented On 3 10:27AM ; [facility], [facility] Procedure/Tests EMG 02/06/23 Rosa M Ellsworth MD Last Documented On 3 10:27AM ; [facility], [facility] Procedure/Tests Nerve Conduction Study 02/06/23 Rosa M Smith MD Last Documented On 3 10:27AM ; [facility] Radiology - CT Scan Cervical 02/06/23 Mckenna Smith MD Last Documented On 3 10:27AM ; [facility] Procedure/Tests EMG Radiculopathy, cervical region 04/01/23 Rosa M Blum MD Last Documented On 3 5:04PM ; [facility], [facility] Procedure/Tests Nerve Conduction Study Radiculopathy, cervical region 04/01/23 Rosa M Smith MD Last Documented On 3 5:04PM ; [facility] Instructions to patient Intervention and counseling on cessation of tobacco use Last Documented On 3 9:53AM ; [facility] Lose weight Last Documented On 3 9:05AM ; [facility], [facility] Assessments Includes: Assessments from this encounter Findings This is 62-year-old man status post C7-T1 anterior cervical discectomy and fusion 10 years ago at an outside hospital now with a predominant complaint of neck pain as well as bilateral hand numbness - Last Documented On 01/23/2023 10:27AM ; [facility], [facility] It was interesting meeting Mr. Nelson [...] Documented On 01/23/2023 10:27AM ; [facility], [facility] Instructions Includes: Instructions from this encounter Instructions to patient Intervention and counseling on cessation of tobacco use Last Documented On 3 9:53AM ; [facility] Lose weight Last Documented On 3 9:05AM ; [facility] Medical Equipment - Implanted Devices Includes: [...] to three times a day, PRN Pharmacy: [facility] [phone] , [place] [id number] - Last Documented On 3 9:39AM By Sharri Philippe ; [facility], [facility] Current Medications (continue as prescribed) amLODIPine Besylate 5 MG Oral Tablet 01/03/2023 Prov ider: Diagnosis: Last Documented On 3 9:05AM By Sharri Philippe ; [facility] Lisinopril 40 MG Oral Tablet 01/03/2023 Provider: Diagnosis: Last Documented On 3 9:05AM By Sharri Philippe ; [facility] Loratadine 10 MG Oral Tablet 01/03/2023 Provider: Diagnosis: Last Documented On 3 9:05AM By Sharri Philippe ; [facility], [facility] Pantoprazole Sodium 40 MG Oral Tablet Delayed Release 11/01/2022 Provider: Diagnosis: Last Documented On 3 9:05AM By Sharri Philippe ; [facility], [facility] Diclofenac Sodium 1% External Gel 10/27/2022 Provide r: Diagnosis: Last Documented On 3 9:05AM By Sharri Philippe ; [facility], [facility] Medications Administered Includes: Administered Medications from this encounter No Administered Medications Recorded Vital Signs Includes: Vital Signs from this encounter Vital Name 01/23/2023 09:19A Height (in) 71 Weight (lb) 227 Body Mass Index 31.7 Body Surface Area 2.2 Note: bb Last Documented: On 01/23/2023 9:19AM ; [facility], [facility] Results Includes: Results discussed during this [...] in his neck 10 years ago in [facility] but does not remember the surgeon who [...] 01/23/2023 Last Documented On 3 10:27AM ; [facility] Smoking Status Unknown Procedures [...] an X-ray was performed 12/03/2022 Nadia @ [facility] [id number] Last Documented On 3 10:27AM ; [facility] an MRI was performed 12/27/2022 Nadia @ [facility] [id number] Last Documented On 3 10:27AM ; [facility] Surgical History Last Updated Past Surgical History: C7-T1 ACDF 2022 Last Documented On 3 10:27AM ; [facility], [facility] 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 Includes: 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 addressed during this encounter Description Last Updated History of Heartburn / Acid Reflux 01/23 Last Documented On 3 10:27AM ; [facility] History of Hypertension 01/23/2023 Last Documented On 3 10:27AM ; [facility] Family History Includes: Family History addressed during this encounter Description Last Updated No significant family history 01/23/2023 Last Documented On 3 10:27AM ; [facility] Review of Systems Includes: Review of Systems [...] 1 01/23/2023 Complete (Refused - Patient objection) [facility], [facility] Last Documented On 3 9:52AM ; [facility] PCV (Pneumovax 23) 1 01/23/2023 Suspended (Contraindicated) [facility] Last Documented On 3 9:52AM ; [facility] Allergies Includes: Active Allergies No Known Allergies Encounters Encounter Provider Location Date Check-In Time Check-Out Time Diagnosis Physician Specified Rosa M lee MD [facility] 01/24/20 23 9:08AM 9:33AM Insurance Includes: Active Insurance Policies Plan Name Member ID Group # Subscriber Relationship Effect gaby Dates 1 - [facility] [id number] Shlely Nelson Self Clinical Notes Includes: Clinical Notes from this encounter * Progress note Date Encounter Last Documented by 01/23/2023 Physician Specified Last karla chong on 01/23/2023; 10:27 AM, Rosa M Smith MD; [facility], [facility] Active Problems & Conditions - Neck [...] in his neck 10 years ago in [facility] but does not remember the surgeon who [...] Imaging: X-Ray: An X-ray was performed 12/03/2022 [facility] @ [facility]. MRI Scan: An MRI was performed 12/27/2022 [facility] @ [facility]. Therapy - Intervention and counseling on [...]
--- OUTSIDE RECORDS SUMMARY | 2025-03-12 00:04 | XMS_ITS | Clinical Summary ---
Author Organization [facility] , [facility] Address [address] [place] [address] Phone Care Team Providers Care Seafood Manager Name Role Phone Geraldo CORRALES, Anitra Unavailable Unavailable Sarah CORRALES, Rosa M Unavailable [phone] Reason for Visit and Chief Complaint The Chief Complaint is: Cervical Pain Problems Includes: Problems addressed during this encounter and other active Problems All Visits Onset Date Resolved Date Provider Condition S tatus Neck Pain 01/23/2023 Rosa M Smith MD Active Last Documented On 3 9:04AM ; [facility] Plan of Treatment Pending Tests Order Diagnosis Results Due Ordering P abisai Procedure/Tests EMG 02/06/23 Rosa M Ellsworth MD Last Documented On 3 10:27AM ; [facility] Procedure/Tests Nerve Conduction Study 02/06/23 Rosa M Smith MD Last Documented On 3 10:27AM ; [facility] Radiology - CT Scan Cervical 02/06/23 Mckenna Smith MD Last Documented On 3 10:27AM ; [facility] Therapy - Physical Therapy Cervical Radiculopathy, cervical region 03/18/23 Rosa M Smith MD Last Documented On 3 5:04PM ; [facility] Procedure/Tests EMG Radiculopathy, cervical region 04/01/23 Rosa M Blum MD Last Documented On 3 5:04PM ; [facility], [facility] Procedure/Tests Nerve Conduction Study Radiculopathy, cervical region 04/01/23 Rosa M Smith MD Last Documented On 3 5:04PM ; [facility], [facility] Referrals To Diagnosis Consult with Orthopedic Radiculo sony, cervical region Note: Right Shoulder Dr. Noel Madsen Last Documented On 3 5:04PM ; [facility], [facility] Instructions to patient Intervention and counseling on cessation of tobacco use Last Documented On 3 2:07PM ; [facility], [facility] Lose weight Last Documented On 3 1:46PM ; [facility], [facility] Assessments Includes: Assessments from this encounter Findings This is a 62-year-old man with cervical radiculopathy in addition to likely internal derangement of the right shoulder and probably left shoulder - Last Documented On 02/10/2024 4:40PM ; [facility], [facility] It is always interesting seeing Almas [...] Last Documented On 02/10/2024 4:40PM ; [facility], [facility] Instructions Includes: Instructions from this encounter Instructions to patient Intervention and counseling on cessation of tobacco use Last Documented On 3 2:07PM ; [facility], [facility] Lose weight Last Documented On 3 1:46PM ; [facility], [facility] Medical Equipment - Implanted Devices Includes: Current Devices No Medical Equipment Recorded Medications Includes: Medications discussed during this encounter and other current Medications Current Medications (continue as prescribed) amLODIPine Besylate 5 MG Oral Tablet 01/03/2023 Prov ider: Diagnosis: Last Documented On 3 9:05AM By Sharri Philippe ; [facility], [facility] Lisinopril 40 MG Oral Tablet 01/03/2023 Provider: Diagnosis: Last Documented On 3 9:05AM By Sharri Philippe ; [facility], [facility] Loratadine 10 MG Oral Tablet 01/03/2023 Provider: Diagnosis: Last Documented On 3 9:05AM By Sharri Philippe ; [facility] Pantoprazole Sodium 40 MG Oral Tablet Delayed Release 11/01/2022 Provider: Diagnosis: Last Documented On 3 9:05AM By Sharri Philippe ; [facility] Diclofenac Sodium 1% External Gel 10/27/2022 Provide r: Diagnosis: Last Documented On 3 9:05AM By Sharri Philippe ; [facility] Past Medications on file Methocarbamol 750 MG Oral Tablet 01/23/2023 - 02/22/2023 Provider: Rosa M Shipley MD Diagnosis: Take 1 tablet PO up to three times a day, PRN Last Documented On 3 9:39AM By Sharri Philippe ; [facility] Medications Administered Includes: Administered Medications from this encounter No Administered Medications Recorded Vital Signs Includes: Vital Signs from this encounter Vital Name 03/18/2023 02:07P Height (in) 71 Weight (lb) 243 Body Mass Index 33.9 Body Surface Area 2.3 Note: bb Last Documented: On 03/18/2023 2:07PM ; [facility] Results Includes: Results discussed during this [...] Documented On 3 1:45PM ; [facility] Yes, current smoker. 2.5 packs per day 0 01/23/2023 Last Documented On 3 1:45PM ; [facility], [facility] Caffeine use 01/23/2023 Last Documented On 3 1:45PM ; [facility], [facility] No recent change in diet 01/23/2023 Last Documented On 3 1:45PM ; [facility], [facility] Not exercising regularly 01/23/2023 Last Documented On 3 1:45PM ; [facility], [facility] Not using alcohol 01/23/2023 Last Documented On 3 1:45PM ; [facility], [facility] Not using drugs 01/23/2023 Last Documented On 3 1:45PM ; [facility], [facility] Smoking Status Unknown Procedures and Surgical History Includes: Procedures from this encounter Procedures Code Diagnosis Performing Provider Service L ocation Service Date intervention and counseling on cessation of tobacco use 4000F Last Documented On 3 2:07PM ; [facility] use of tobacco assessment performed 1000F Last Documented On 3 2:07PM ; [facility], [facility] EMG 03/14/2023 [facility] @ [facility] [id number] Last Documented On 3 2:19PM ; [facility] an X-ray was performed 12/03/2022 [facility] @ [facility] [id number] Last Documented On 3 1:46PM ; [facility] CT scan 02/25/2023 [facility] @ [facility] [id number] Last Documented On 3 2:19PM ; [facility] an MRI was performed 12/27/2022 [facility] @ [facility] [id number] Last Documented On 3 1:46PM ; [facility], [facility] Surgical History Last Updated Past Surgical History: C7-T1 ACDF 2022 Last Documented On 3 1:45PM ; [facility] 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 Includes: 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 addressed during this encounter Description Last Updated History of Heartburn / Acid Reflux 01/23 Last Documented On 3 1:45PM ; [facility] History of Hypertension 01/23/2023 Last Documented On 3 1:45PM ; [facility] Family History Includes: Family History addressed during this encounter Description Last Updated No significant family history 01/23/2023 Last Documented On 3 1:45PM ; [facility] Review of Systems Includes: Review [...] Diagnosis Follow Up Rosa M saleem MD [facility] 3 1:44PM 3:22PM Insurance Includes: Active Insurance Policies Plan Name Member ID Group # Subscriber Relationship Effect gaby Dates 1 - [facility] [id number] Shelly Nelson Self Clinical Notes Includes: Clinical Notes from this encounter * Progress note Date Encounter Last Documented by 03/18/2023 Follow Up Last documented on 02/10/2024; 4:40 PM, Rosa M Blum MD; [facility], [facility] Active Problems & Conditions - Neck [...] Studies: Neuro-Electrical Functions: EMG 03/14/2023 [facility] @ [facility]. Imaging: X-Ray: An X-ray was performed 12/03/2022 [facility] @ [facility]. CT Scan: CT scan 02/25/2023 [facility] @ [facility]. MRI Scan: An MRI was performed 12/27/2022 [facility] @ [facility]. Therapy - Intervention and counseling on [...]
--- OUTSIDE RECORDS SUMMARY | 2025-03-12 00:04 | XMS_ITS ---
Care Plan - [facility] Created on: March 12, 2025 Shelly Nelson : 1960 Sex: Male Author Organization [facility] Address [address] [place] [address] Phone Care Team Providers Care Framework Developer Name Role Phone Geraldo CORRALES, Anitra Unavailable Unavailable Sarah CORRALES, Rosa M Unavailable [phone]
--- OUTSIDE RECORDS SUMMARY | 2025-03-12 00:05 | XMS_ITS ---
Author Organization [facility] , [facility] Address [address] [place] [address] Phone Care Team Providers Care Gear Hobber Name Role Phone Geraldo CORRALES, Anitra Unavailable Unavailable Sarah CORRALES, Rosa M Unavailable [phone] Problems Includes: Active, inactive, and resolved Problems All Visits Onset Date Resolved Date Provider Condition S tatus Neck Pain 01/23/2023 Rosa M Smith MD Active Last Documented On 3 9:04AM ; [facility] Plan of Treatment Pending Tests Order Diagnosis Results Due Ordering P rovider Procedure/Tests EMG 02/06/23 Rosa M Ellsworth MD Last Documented On 3 10:27AM ; [facility] Procedure/Tests Nerve Conduction Study 02/06/23 Rosa M Smith MD Last Documented On 3 10:27AM ; [facility] Radiology - CT Scan Cervical 02/06/23 Mckenna Smith MD Last Documented On 3 10:27AM ; [facility] Procedure/Tests EMG Radiculopathy, cervical region 04/01/23 Rosa M Blum MD Last Documented On 3 5:04PM ; [facility] Procedure/Tests Nerve Conduction Study Radiculopathy, cervical region 04/01/23 Rosa M Smith MD Last Documented On 3 5:04PM ; [facility], [facility] Referrals To Diagnosis Consult with Orthopedic Radiculo sony, cervical region Note: Right Shoulder Dr. Noel Madsen Last Documented On 3 5:04PM ; [facility], [facility] Instructions to patient Intervention and counseling on cessation of tobacco use Last Documented On 3 2:07PM ; [facility] Lose weight Last Documented On 3 1:46PM ; [facility] Intervention and counseling on cessation of tobacco use Last Documented On 3 9:53AM ; [facility] Lose weight Last Documented On 3 9:05AM ; [facility] Assessments Includes: Assessments for all patient encounters No Assessments Recorded Instructions Includes: Instructions for all patient encounters Instructions to patient Intervention and counseling on cessation of tobacco use Last Documented On 3 2:07PM ; [facility] Lose weight Last Documented On 3 1:46PM ; [facility] Intervention and counseling on cessation of tobacco use Last Documented On 3 9:53AM ; [facility] Lose weight Last Documented On 3 9:05AM ; [facility], [facility] Medical Equipment - Implanted Devices Includes: Current and historical Devices No Medical Equipment Recorded Medications Includes: Current and historical Medications Current Medications (continue as prescribed) amLODIPine Besylate 5 MG Oral Tablet 01/03/2023 Prov ider: Diagnosis: Last Documented On 3 9:05AM By Sharri Philippe ; [facility] Lisinopril 40 MG Oral Tablet 01/03/2023 Provider: Diagnosis: Last Documented On 3 9:05AM By Sharri Philippe ; [facility], [facility] Loratadine 10 MG Oral Tablet 01/03/2023 Provider: Diagnosis: Last Documented On 3 9:05AM By Sharri Philippe ; [facility], [facility] Pantoprazole Sodium 40 MG Oral Tablet Delayed Release 11/01/2022 Provider: Diagnosis: Last Documented On 3 9:05AM By Sharri Philippe ; [facility], [facility] Diclofenac Sodium 1% External Gel 10/27/2022 Provide r: Diagnosis: Last Documented On 3 9:05AM By Sharri Philippe ; [facility], [facility] Past Medications on file Methocarbamol 750 MG Oral Tablet 01/23/2023 - 02/22/2023 Provider: Rosa M Shipley MD Diagnosis: Take 1 tablet PO up to three times a day, PRN Last Documented On 3 9:39AM By Sharri Philippe ; [facility], [facility] Medications Administered Includes: Administered Medications in patient's chart No Administered Medications Recorded Results Includes: Results from 03/12/2024 through 03/12/2025 No Results Recorded For Specified Dates History of Present Illness History of Present Illness not supported for this document type No History of Present Illness Recorded Social History Description Last Updated Tobacco use 01/23/2023 Last Documented On 3 10:27AM ; [facility], [facility] Yes, current smoker. 2.5 packs per day 0 01/23/2023 Last Documented On 3 10:27AM ; [facility], [facility] Caffeine use 01/23/2023 Last Documented On 3 10:27AM ; [facility], [facility] No recent change in diet 01/23/2023 Last Documented On 3 10:27AM ; [facility], [facility] Not exercising regularly 01/23/2023 Last Documented On 3 10:27AM ; [facility], [facility] Not using alcohol 01/23/2023 Last Documented On 3 10:27AM ; [facility], [facility] Not using drugs 01/23/2023 Last Documented On 3 10:27AM ; [facility], [facility] Smoking Status Unknown Procedures and Surgical History Surgical History Last Updated Past Surgical History: C7-T1 ACDF 2022 Last Documented On 3 10:27AM ; [facility], [facility] 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 Includes: 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 in patient's chart Description Last Updated History of Heartburn / Acid Reflux 01/23 Last Documented On 3 10:27AM ; [facility] History of Hypertension 01/23/2023 Last Documented On 3 10:27AM ; [facility], [facility] Family History Includes: Family History in patient's chart Description Last Updated No significant family history 01/23/2023 Last Documented On 3 10:27AM ; [facility] Review of Systems Review of Systems not [...] 1 01/23/2023 Complete (Refused - Patient objection) [facility] Last Documented On 3 9:52AM ; [facility] PCV (Pneumovax 23) 1 01/23/2023 Suspended (Contraindicated) [facility] Last Documented On 3 9:52AM ; [facility] Allergies Includes: Active, inactive, and resolved Allergies No Known Allergies Insurance Includes: Active Insurance Policies Plan Name Member ID Group # Subscriber Relationship Effect gaby Dates 1 - [facility] [id number] Shelly Nelson Self Clinical Notes Includes: Signed Clinical Notes starting from 10/25/2022 No Clinical Notes Recorded
--- NOTE | 2025-03-12 00:07 | [facility].EDCP ---
Discharge Plan Disposition Patient Disposition: Xfer Short-Term Hosp Condition: Fair Chief Complaint: Chest Pain Prescriptions Prescriptions: No Action famotidine [Pepcid] 20 mg tablet 20 mg PO BID Qty: 180 3RF amlodipine 10 mg tablet 400 mg PO BID Eliquis 5 mg Tablet 5 mg PO DAILY aspirin [Aspir-81] 81 mg Tablet,Delayed Release (Dr/Ec) 81 mg PO DAILY atorvastatin 80 mg Tablet 80 mg PO HS docusate sodium [DSS] 100 mg Capsule 100 mg PO BID furosemide 40 mg Tablet 40 mg PO DAILY lisinopril 40 mg Tablet 40 mg PO DAILY methocarbamol 500 mg Tablet 1,000 mg PO Q6 metoprolol tartrate 75 mg Tablet 75 mg PO BID mometasone-formoterol 100-5 mcg/actuation Hfa Aerosol Inhaler 2 puff INHALATION BID oxycodone 10 mg Tablet 10 mg PO Q6H PRN (Reason: Pain) potassium chloride 20 mEq Tablet Extended Release 20 meq PO DAILY Referrals Follow up/Referrals: Provider,Referral, MD [Primary Care Provider] - See instructions Clinical Impressions Clinical Impression: Chest pain, Pleural effusion, Ileus, Vomiting Stand Alone Forms Stand Alone Forms: Transfer Record - ED Print Language Print Language: French Discharge ED Provider: Bianca Rinaldi General Chief Complaint: Chest Pain Stated Complaint: chest pain Time Seen by Provider: 03/11/25 23:54 Mode of Arrival: EMS Source of Information: Patient Description of Symptoms (Recalled from ER Triage Doc. by RN): Pt had by-pass surgery at on 02/21 History of Present Illness HPI narrative: 64-year-old male with CABG 3 weeks ago at presents to the ER with concerns of chest pressure radiating to the left side. Reportedly patient's symptoms started last night and were worse this morning and have progressively worsened through the day. Patient takes Eliquis newly. Patient reports no fevers or chills. He has been feeling more short of breath. He states his leg swelling is actually decreasing since the surgery and he does not have any new leg pain or calf pain. No history of blood clots. Patient reports no nausea or vomiting, no headache or dizziness. No numbness, tingling, or weakness. Patient reports pain was 10 out of 10 prior to EMS picking him up and it is now down to a 5 out of 10. EMS reports they gave aspirin and 3 doses of nitro. Patient's blood pressure went from 144 down to 89/51 after multiple doses of nitro, they started him on 500 mL IV fluids. He was saturating well on room air for them but was placed on nasal cannula for comfort. Related Data Home Medications ?Medication ?Instructions ?Recorded ?Confirmed amlodipine 10 mg tablet 400 mg PO BID 03/12/25 apixaban 5 mg tablet (Eliquis) 5 mg PO DAILY 03/12/25 03/12/25 aspirin 81 mg tablet,delayed 81 mg PO DAILY 03/12/25 03/12/25 release atorvastatin 80 mg tablet 80 mg PO HS 03/12/25 03/12/25 docusate sodium 100 mg capsule 100 mg PO BID 03/12/25 03/12/25 furosemide 40 mg tablet 40 mg PO DAILY 03/12/25 03/12/25 lisinopril 40 mg tablet 40 mg PO DAILY 03/12/25 03/12/25 methocarbamol 500 mg tablet 1,000 mg PO Q6 03/12/25 03/12/25 metoprolol tartrate 75 mg tablet 75 mg PO BID 03/12/25 03/12/25 mometasone-formoterol HFA 100 2 puff inhalation BID 03/12/25 03/12/25 mcg-5 mcg/actuation aerosol inhaler oxycodone 10 mg tablet 10 mg PO Q6H PRN Pain 03/12/25 03/12/25 potassium chloride 20 mEq 20 meq PO DAILY 03/12/25 03/12/25 tablet,extended release Previous Rx's ?Medication ?Instructions ?Recorded famotidine 20 mg tablet (Pepcid) 20 mg PO BID #180 tabs 03/10/24 Allergies Allergy/AdvReac Type Severity Reaction Status Date / Time No Known Allergies Allergy Verified 09/29/24 12:33 [facility] Disclaimer: The information contained in this section may have been updated after the patient was seen, as this information can be updated by other users. 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 (Updated 03/12/25 @ 02:19 by Bianca Rinaldi MD) History of left heart catheterization COPD (chronic obstructive pulmonary disease) Screening for malignant neoplasm of colon Encounter for screening for abdominal aortic aneurysm (AAA) in patient 50 years of age or older with history of smoking Encounter for prostate cancer screening Exposure to hepatitis C Encounter for screening for diabetes mellitus Encounter for screening examination for sexually transmitted disease Neck pain Thoracic back pain Bronchitis Need for RSV immunization Left flank pain Left sided abdominal pain Cervical radiculopathy Acute viral syndrome Pharyngitis Generalized body aches Sinusitis Scalp irritation Fatigue Eustachian tube dysfunction Cervical radiculopathy Bilateral arm pain Bilateral shoulder pain Neck pain Occult blood in stools Angina at rest Shoulder pain Neck pain Abdominal pain Nerve damage Chest pain Hypertension Exposure to COVID-19 virus Corneal abrasion Amputation of finger tip Urethral colic due to calculus Renal colic on right side Surgical History (Updated 02/19/25 @ 00:00 by Nacho Gonzalez) Hx of inguinal hernia repair History of shoulder surgery History of neck surgery History of knee surgery Family History , GOLD NIB GRINDER) No significant family 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 (Updated 02/16/25 @ 15:10 by Alesia Pinon RN) Smoking Status: Former smoker tobacco type: cigarettes packs per day: 1 quit status: has quit before alcohol intake: never substance use type: denies use current occupational status: retired Travel in the last 8 weeks?: None adopted: No caregiver/support person: No foster care: No household members: friend(s) housing: apartment lives independently: Yes marital status: single number of children: 3 number of grandchildren: 7 service: Yes (discharged 1985) 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 senior living: No Other 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 Have you received the Flu Vaccine for this season: No Have you received the Pneumonia Vaccine: No ROS Obtained: Yes Systems reviewed as appropriate & no additional complaints except as documented Per HPI Physical Exam General General appearance: alert and in no apparent distress Head Head exam: atraumatic and normocephalic Eye Eye exam: Present PERRL and EOMI ENT ENT exam: Present mucous membranes moist Neck Neck exam: Present normal inspection and full ROM Chest Chest inspection: Present symmetric chest wall rise, tenderness (Mild chest wall tenderness along the surgical incisions) and other (Well-healing sternotomy incision, all surgical incisions are well-healing without signs of infection. Sutures in place.) Respiratory Respiratory exam: Present normal lung sounds bilaterally; Absent respiratory distress, wheezes or stridor Cardiovascular Cardiovascular exam: Present regular rate and normal rhythm Abdominal Exam Abdominal exam: Present soft; Absent distention or tenderness Extremities Exam Extremities exam: Present full ROM and edema (Bilateral lower extremity pitting edema present, patient has bruising on the right from graft) Neurological Exam Neurological exam: Present alert and oriented X3; Absent motor sensory deficit Psychiatric Psychiatric exam: Present normal affect and normal mood Skin Skin exam: Present warm and dry HEART Score HEART Score HEART Score assessment performed?: Yes History (anamnesis): Moderately suspicious ECG: Non-specific disturbance Age: >65 years Risk factors: Atherosclerosis history Troponin: 1-3x normal limit HEART Score: 7 Procedures Miscellaneous Procedure Procedure Performed: Limited Cardiac Ultrasound Indication: Chest pain Identified cardiac views: [-Cardiac parasternal long axis] [-Cardiac parasternal short axis] [-Cardiac apical four chamber] -not able to be viewed [-Cardiac subxiphoid] Findings: Cardiac activity present with no gross wall motion abnormality, no pericardial effusion, no obvious right heart strain Impression: - Cardiac activity present with no gross wall motion abnormality, no pericardial effusion, no obvious right heart strain Images were saved to permanent archive The study was technically adequate CPT: 82090 This study was performed by vt, and I personally interpreted all images/videos. Based on my clinical judgement, these images were adequate and did not necessitate further imaging. Limited lung ultrasound A focused ultrasound exam of the pleural spaces was performed to evaluate for pneumothorax, pulmonary edema, pleural effusion and/or consolidation. The ultrasound was performed with the following indications, as noted in the H&P: Chest pain Identified structures: Bilateral thoracic cavities were examined. Findings: Lung sliding: - Present bilaterally B-lines: Absent bilaterally Pleural effusion: Not identified bilaterally Consolidation: Not identified bilaterally Impression: No evidence of pneumothorax, pleural effusion, B-lines, or consolidation in the bilateral thoracic cavities Images were saved to permanent archive The study was technically adequate CPT 31493-23 This study was performed by vt, and I personally interpreted all images/videos. Based on my clinical judgement, these images were adequate and did not necessitate further imaging. Critical Care Critical Care Time Critical Care Time: Yes Attestation: On 03/11/25, the high probability of a clinically significant, sudden or life threatening deterioration of the following system(s) required my full and direct attention, intervention and personal management. The time I documented below is in addition to time spent performing reported procedures but includes the following listed in this critical care notation. Total Time Total Critical Care Time: 35 Medical Decision Making Medical Records Medical records reviewed: Yes I reviewed the patient's medical records. MR Comment: Most recent cardiology note from February 15 demonstrates patient had NSTEMI, acute HFrEF with elevated BNP, echo EF 45% with moderate aortic stenosis and mild mitral regurg. Kalpesh Inquiry Pt receiving controlled substance: No Vital Signs Vital Signs: 03/11/25 23:56 03/12/25 00:01 03/12/25 00:23 Temperature 98.4 F Temperature Source Oral Pulse Rate 94 H 113 H Pulse Rate [Right Brachial] 116 H Respiratory Rate 24 34 H Blood Pressure 105/71 L Blood Pressure [Right Arm] 92/60 L Blood Pressure Mean 83 Blood Pressure Mean [Right Arm] 70 Blood Pressure Source [Right Arm] Automatic Cuff Blood Pressure Position [Right Arm] Supine 02 Sat by Pulse Oximetry 100 100 Oxygen Delivery Method Nasal Cannula Oxygen Flow Rate (LPM) 2 03/12/25 00:46 03/12/25 01:01 03/12/25 01:32 Temperature Temperature Source Pulse Rate 99 H 91 H Pulse Rate [Right Brachial] Respiratory Rate 28 H 18 19 Blood Pressure 124/72 119/67 107/55 L Blood Pressure [Right Arm] Blood Pressure Mean 88 Blood Pressure Mean [Right Arm] Blood Pressure Source [Right Arm] Blood Pressure Position [Right Arm] 02 Sat by Pulse Oximetry 99 100 Oxygen Delivery Method Nasal Cannula Nasal Cannula Oxygen Flow Rate (LPM) 2 2 Lab Data Labs: Lab Results 03/11/25 23:15: WBC 12.6 H, RBC 2.89 L, Hgb 7.9 L, Hct 25.5 L, MCV 88.2, MCH 27.3, MCHC 31.0 L, RDW 19.5 H, Plt Count 268, MPV 10.2, Neut % (Auto) 80.9 H, Lymph % (Auto) 11.5, Jackson % (Auto) 6.4, Eos % (Auto) 0.4, Baso % (Auto) 0.2, Neut # (Auto) 10.2 H, Lymph # (Auto) 1.5, Jackson # (Auto) 0.8, Eos # (Auto) 0.1, Baso # (Auto) 0.0, PT 13.1 H, INR 1.19 H, APTT 28.5, Sodium 133 L, Potassium 4.4, Chloride 102, Carbon Dioxide 22, Anion Gap 13.4, BUN 20, Creatinine 0.90, Estimated Creat Clear 103, Estimated GFR 84, Est GFR ( Amer) 102, Glucose 92, Calcium 8.8, Total Bilirubin 1.1, AST 33, ALT 30, Alkaline Phosphatase 88, Troponin I 0.07 H, C-Reactive Protein 51.2 H, NT-Pro-B Natriuret Pep 5370 H, Total Protein 6.6, Albumin 3.6, Globulin 3.0, Albumin/Globulin Ratio 1.2 03/12/25 00:19: VBG pH 7.46 H, VBG pCO2 29.9 L, VBG pO2 37.2, VBG HCO3 20.6 L, VBG Total CO2 21.5 L, VBG O2 Saturation 68.2, VBG Base Excess -3.3 L, VBG Lactic Acid 1.6 03/11/25 23:15 03/11/25 23:15 Response Orders (Tests/Meds): ED MEDICATIONS Discontinued Medications Generic Name Dose Route Start Last Admin Trade Name Freq PRN Reason Stop Dose Admin Aspirin 324 mg 03/11/25 23:54 03/12/25 00:38 Aspirin 81mg Chewable Tablet PO 03/11/25 23:55 Not Given ONCE ONE Furosemide 40 mg 03/12/25 01:12 03/12/25 01:19 Furosemide 40mg/4ml Vial IV 03/12/25 01:13 40 mg ONCE ONE Administration Iopamidol 70 ml 03/12/25 00:37 03/12/25 00:38 Iopamidol-370 (76%);100ml Bottle IV 03/12/25 00:38 70 ml ONCE ONE Administration Metoprolol Tartrate 5 mg 03/12/25 01:12 03/12/25 01:19 Metoprolol Tartrate 5mg/5ml Vial IV 03/12/25 01:13 5 mg ONCE ONE Administration Morphine Sulfate 4 mg 03/12/25 01:31 03/12/25 01:39 Morphine 4mg/Ml Syringe IV 03/12/25 01:32 4 mg ONCE ONE Administration Nitroglycerin 0.4 mg 03/12/25 00:46 03/12/25 00:50 Nitroglycerin 0.4mg Sl Tablet SL 03/12/25 00:47 0.4 mg ONCE ONE Administration Ondansetron HCl 4 mg 03/12/25 01:31 03/12/25 01:38 Ondansetron 4mg/2ml Vial IV 03/12/25 01:32 4 mg ONCE ONE Administration Sodium Chloride 50 ml 03/12/25 00:37 03/12/25 00:38 0.9 % Sodium Chloride 50 Ml Vial IV 03/12/25 00:38 50 ml ONCE ONE Administration Sodium Chloride 10 ml 03/12/25 00:37 03/12/25 00:38 Sodium Chloride 0.9% 10ml Syr (Rad Only) IV 03/12/25 00:38 10 ml ONCE ONE Administration ORDERS Category Date Time Status CT abdomen pelvis w con Stat Cat Scan 03/12/25 01:[address] angio chest PE protocol Stat Cat Scan 03/11/25 23:54 Completed POCUS Point of Care (ER Only) Stat Exams 03/11/25 23:56 Completed XR chest portable Stat Exams 03/11/25 23:54 Completed Activated Partial Thrombo Time Stat Lab 03/11/25 23:15 Completed CRP [C-Reactive Protein] Stat Lab 03/12/25 00:00 Completed Complete Blood Count Auto Diff Stat Lab 03/11/25 23:15 Completed Comprehensive Metabolic Panel Stat Lab 03/11/25 23:15 Completed NT Pro Brain Natriuretic Pep. Stat Lab 03/11/25 23:15 Completed Prothrombin Time INR Stat Lab 03/11/25 23:15 Completed Troponin I Q3H Lab 03/12/25 03:00 Ordered Troponin I Q3H Lab 03/12/25 06:00 Ordered Troponin I Stat Lab 03/11/25 23:15 Completed Venous Blood Gas Stat RT 03/12/25 00:19 Completed MDM Narrative Medical Decision Narrative: In summary, this 64-year-old male with comorbidities described in the HPI presents to the emergency department today with chest pain and pressure. On initial evaluation patient is borderline hypotensive but blood pressure is improving, otherwise he is tachycardic in A-fib with RVR, bilateral lower extremity pitting edema, lungs clear bilaterally, surgical incisions appear to be healing well. Differential diagnosis includes but is not limited to pericarditis, pericardial effusion, ACS, PE, pleural effusion, pneumothorax, mediastinitis, among others. Based on these concerns, I ordered serum labs, CT imaging, cardiac workup. ECG personally interpreted demonstrates A-fib RVR rate 116, normal axis, normal QTc, no STEMI the patient does have some slight ST changes in the lateral leads. ECG is different than when he was previously admitted to our hospital in early February [id number] ultrasound personally performed and interpreted at bedside does not demonstrate pericardial effusion, no large pleural effusion, no B-lines, see procedure note for details. The 500 mL of IV fluids that were started by EMS are being finished, patient's blood pressure is gradually improving. He is mentating well with good capillary refill. Pain continues to improve. Labs personally reviewed demonstrate leukocytosis WBC 12.6, anemia with hemoglobin 7.9 down from 11.2 in early February when patient was previously admitted, PT/INR nonactionable, VBG with pH 7.46 and mild hypocarbia, lactate normal, CMP not acutely actionable patient does have elevated BNP at 5370 increased compared to previous admission. CRP elevated at 51.2 which could be related to his recent surgery or possibly consistent with pericarditis. XR personally interpreted demonstrates possible slight pulmonary edema in the bilateral lower lobes. See radiology read for final interpretation. CT imaging personally interpreted demonstrate no PE, however patient does have small bilateral pleural effusion, right greater than left, no lobar infiltrate. See radiology read for final interpretation. On reassessment patient states his pain is now a 6 out of 10, his blood pressure has improved as his nitroglycerin wore off, additional sublingual nitro has been administered for chest pain. Patient's heart rate has improved. Repeat ECG demonstrates A-fib, rate 104, normal QTc, patient has stable slight lateral ECG changes, no STEMI. With patient still having chest pressure, troponin 0.07, Contacted for consult and possible transfer for recent postop CABG chest pain but I am awaiting a callback. I reached out to Dr. Templeton for recommendations regarding patient's EKG and persistent chest pain. He reviewed the EKGs and does not believe patient is having acute MT. We also discussed labs. Since patient is already anticoagulated on Eliquis, he does not recommend any additional anticoagulation. He did recommend metoprolol and furosemide. He agrees with the plan for transfer to for higher level of care since patient is very recent postop. While awaiting callback from , patient began complaining of abdominal pain. He describes diffuse mid to upper abdominal pain. Mild tenderness to palpation. No rebound or guarding. No peritonitic findings. Abdomen is not distended. He has bruising likely from previous subcu anticoagulation administration. Since I am still awaiting a callback from , added CT abdomen pelvis to workup for further evaluation. He started having emesis as well so morphine and Zofran were administered. [id number] I received a call back from Dr. Hatfield at transfer center and reviewed this case with her. She graciously accepted the patient for ED to ED transfer to [facility]. CT abdomen pelvis personally interpreted demonstrates large stool burden in the ascending colon, there appears to be evidence of gaseous distention of the more proximal intestines, likely related to ileus potentially from narcotic use postoperatively. Radiology read pending. Patient comfortable with the plan for transfer. No additional emesis at this time. He continues to be a GCS 15, vitals stable. Heart rate improved since receiving IV metoprolol. Patient will go via ALS ambulance for continued cardiac monitoring. Patient transferred to in concerning but currently stable condition.
[2025-03-12 00:13] LABS: Activated Partial Thrombo Time 28.5 seconds (22.8-30.6); INR 1.19 (0.9-1.1); Prothrombin Time 13.1 seconds (10.1-12.5)
[2025-03-12 00:15] LABS: Anion Gap 13.4 mEq/L (5-15); Blood Urea Nitrogen 20 mg/dl (9-20); Carbon Dioxide 22 mmol/L (22.0-30.0); Chloride 102 mmol/L (98-107); Potassium 4.4 mmoL/L (3.5-5.1); Sodium 133 mmol/L (136-145)
[2025-03-12 00:16] LABS: Alanine Aminotransferase 30 U/L (12-78); Aspartate Amino Transferase 33 U/L (17-59); Bilirubin,Total 1.1 mg/dl (0.2-1.3); Calcium 8.8 mg/dl (8.4-10.2); Creatinine Clearance Estimated 103 mL/min (50-200); Estimated Glomerular Filt Rate 84 ml/min (>60); GFR (African American) 102 ML/MIN (>60); Glucose 92 mg/dl (74-100)
[2025-03-12 00:17] LABS: Alkaline Phosphatase 88 U/L (38-126); Total Protein,Serum 6.6 g/dl (6.3-8.2)
[2025-03-12 00:18] LABS: Albumin Level 3.6 g/dl (3.5-5.0); Albumin/Globulin Ratio 1.2 (1.1-1.8)
[2025-03-12 00:27] LABS: Lactate Venous 1.6 mmol/L (0.4-2.0); VBG Base Excess -3.3 mmol/L (-2.4-2.3); VBG HCO3 20.6 mmol/L (23-30); VBG Oxygen Saturation 68.2 % (50-70); VBG PCO2 29.9 mmol/L (35-51); VBG PH 7.46 mmol/L (7.31-7.41); VBG PO2 37.2 mmol/L (28-40); VBG Total CO2 21.5 mmol/L (23-27)
[2025-03-12 00:35] LABS: C-Reactive Protein 51.2 mg/L (0-4)
[2025-03-12] MEDS: SODIUM CHLORIDE 0.9% 10ML SYR (RAD ONLY) 10 ML IV ×2 (00:38→02:02)
[2025-03-12] MEDS: 0.9 % SODIUM CHLORIDE 50 ML VIAL IV (00:38)
[2025-03-12] MEDS: IOPAMIDOL-370 (76%);100ML BOTTLE 70 ML IV (00:38)
--- NOTE | 2025-03-12 00:46 | ECG_ITS ---
APPROVED REPORT Exam: Resting ECG HR:104 bpm ECG Measurements Heart Rate 104 AXES QRSd 101 QRS 0 QT 348 T 95 QTc 408 Conclusion ATRIAL FIBRILLATION WITH RAPID VENTRICULAR RESPONSE Stable lateral ST changes No STEMI Electronically signed by : INEZ FULLER, 03/12/2025 02:45:53
[2025-03-12 00:48] LABS: NT Pro Brain Natriuretic Pep. 5370 pg/mL (0-125); Troponin I 0.07 ng/ml (0.00-0.034)
[2025-03-12] MEDS: NITROGLYCERIN 0.4MG SL TABLET 0.4 MG SL (00:50)
[2025-03-12] MEDS: FUROSEMIDE 40MG/4ML VIAL 40 MG IV (01:19)
[2025-03-12] MEDS: METOPROLOL TARTRATE 5MG/5ML VIAL 5 MG IV (01:19)
--- NOTE | 2025-03-12 01:28 | CT_ITS ---
PROCEDURE INFORMATION: Exam: CT Abdomen And Pelvis With Contrast Exam date and time: 03/12/2025 1:54 AM Age: 64 years old Clinical indication: Abdominal pain; Additional info: Diffuse abd pain, ttp TECHNIQUE: Imaging protocol: Computed tomography of the abdomen and pelvis with contrast. Radiation optimization: All CT scans at this facility use at least one of these dose optimization techniques: automated exposure control; mA and/or kV adjustment per patient size (includes targeted exams where dose is matched to clinical indication); or iterative reconstruction. Contrast material: ISOVUE; Contrast volume: 75 ml; Contrast route: IV; COMPARISON: CT ABDOMEN PELVIS WO/W CON 03/31/2024 8:04 AM FINDINGS: Lungs: The chest is reported separately. Liver: Normal. No mass. Gallbladder and biliary ducts: Normal. No calcified stones. No ductal dilation. Pancreas: Normal. No ductal dilation. Spleen: Normal. No splenomegaly. Adrenal glands: Normal. No mass. Kidneys and ureters: No hydronephrosis. Several bilateral intrarenal calculi measuring up to 10 mm in size bilaterally. Contrast is present within the renal collecting systems from prior CT angio of the chest. There is a 17 mm exophytic cyst right kidney and a 22 mm cortical cyst medial left kidney. Other subcentimeter cortical hypodensities are noted too small to fully characterize. Stomach and bowel: Unremarkable. No obstruction. No mucosal thickening. Appendix: No evidence of appendicitis. Intraperitoneal space: There is trace pelvic fluid. Vasculature: Significant atherosclerotic disease of the aortoiliac segments. There is prominent irregular mural thrombus involving the juxtarenal and immediate infrarenal aorta. Lymph nodes: Unremarkable. No enlarged lymph nodes. Urinary bladder: Unremarkable as visualized. Reproductive: Unremarkable as visualized. Bones/joints: There are moderate degenerative changes of the spine. No acute fracture. Soft tissues: There is a small fat containing left inguinal hernia. There is a 4.5 cm area of decreased density medial right gluteus cheri muscle series 3, image 109. There are associated foci of gas present. Foci of gas extend more distally in the gluteus cheri muscle as well. Overall the right gluteus cheri muscle is slightly larger than the left. Subcutaneous edema is noted adjacent to the midline on the right in the region of the gluteus cheri muscle. Dependent subcutaneous edema is noted along the midline of the lumbar region. IMPRESSION: 1. Findings consistent with an abscess involving the medial proximal right gluteus cheri muscle. 2. No acute intra abdominal or intrapelvic process is evident. There is trace fluid in the pelvis which may be physiologic. 3. Other nonurgent findings as noted. COMMENTS: Consistent with the [employer]'s Incidental Findings Committee white paper (J Am Butch Radiol 2018): Any incidental renal lesion less than 1 cm or classified as too small to characterize, or any incidental cystic renal lesion characterized as simple-appearing, is likely benign. No follow-up imaging is recommended for these lesions per consensus recommendations based on imaging criteria. THIS REPORT CONTAINS FINDINGS THAT MAY BE CRITICAL TO PATIENT CARE. The findings were verbally communicated via telephone conference at 2:22 AM EDT on 03/12/2025 with Bianca Rinaldi. The findings were acknowledged and understood.
[2025-03-12] MEDS: ONDANSETRON 4MG/2ML VIAL 4 MG IV (01:38)
[2025-03-12] MEDS: MORPHINE 4MG/ML SYRINGE 4 MG IV (01:39)
--- NOTE | 2025-03-12 01:41 | PC.NURSE ---
called for transfer.
[2025-03-12] MEDS: IOPAMIDOL-370 (76%);100ML BOTTLE 75 ML IV (02:02)
--- NOTE | 2025-03-12 02:08 | PC.NURSE ---
EMS notified of need for transfer to [facility]
[2025-03-12] MEDS: PIPERACILLIN/TAZO 4.5 GM in 0.9 % SODIUM CHLORIDE 100 ML IV (02:25)
--- NOTE | 2025-03-12 02:30 | PC.NURSE ---
Report called to [facility] ED for transfer. Report was given to Merlyn Wheat RN. EMS called for transport.
== END 2025-03-12 02:40 | disposition short-term general hospital (02) ==
PROVIDERS: Emergency Provider Emergency Medicine
DX: R07.89 Other chest pain (principal); J90 Pleural effusion, not elsewhere classified; I48.91 Unspecified atrial fibrillation; R10.84 Generalized abdominal pain; K56.7 Ileus, unspecified; L02.31 Cutaneous abscess of buttock; R11.2 Nausea with vomiting, unspecified; Z79.01 Long term (current) use of anticoagulants
CPT/HCPCS: 71045; 71275; 74177; 80053; 82803; 83880; 84484; 85025; 85610; 85730; 86140; 93005; 96365; 96375; 99291; J1938; J2270; J2405; J2543; Q9967

== ENCOUNTER 2025-03-20 16:21 | Emergency (ER) | payer MEDICARE, OTHER, SELFPAY ==
[2025-03-20] VITALS (12 sets, daily range): BP systolic 103–138; BP diastolic 48–68; PULSE 63–74; RESP 16–18; TEMP 36.4–36.6; O2SAT 97–100; BMI 30.7
[2025-03-20] MEDS: MAGNESIUM CITRATE 10OZ BOTTLE 10 OZ PO (17:07)
[2025-03-20] MEDS: LACTULOSE 20GM/30ML UDC 20 GM PO (17:07)
--- NOTE | 2025-03-20 17:18 | PC.NURSE ---
Placed patient in brief and gave him the call light. Advised to push it when he feels like he has to go to the bathroom.
--- NOTE | 2025-03-20 17:27 | ED_ITS ---
Discharge Plan Disposition Patient Disposition: Home, Self-Care Chief Complaint: Abdominal Pain Prescriptions Prescriptions: No Action famotidine [Pepcid] 20 mg tablet 20 mg PO BID Qty: 180 3RF amlodipine 10 mg tablet 400 mg PO BID Eliquis 5 mg Tablet 5 mg PO DAILY aspirin [Aspir-81] 81 mg Tablet,Delayed Release (Dr/Ec) 81 mg PO DAILY atorvastatin 80 mg Tablet 80 mg PO HS docusate sodium [DSS] 100 mg Capsule 100 mg PO BID furosemide 40 mg Tablet 40 mg PO DAILY lisinopril 40 mg Tablet 40 mg PO DAILY methocarbamol 500 mg Tablet 1,000 mg PO Q6 metoprolol tartrate 75 mg Tablet 75 mg PO BID mometasone-formoterol 100-5 mcg/actuation Hfa Aerosol Inhaler 2 puff INHALATION BID oxycodone 10 mg Tablet 10 mg PO Q6H PRN (Reason: Pain) potassium chloride 20 mEq Tablet Extended Release 20 meq PO DAILY Referrals Follow up/Referrals: Kiera Castro APRN [Primary Care Provider] - See instructions Activity Restrictions/Add. Instructions Additional Instructions/Restrictions: Call your family doctor to establish care for this visit to the emergency department and schedule follow-up within 48 hours to ensure improvement. If you have any worsening of your condition or any other concerning signs or symptoms, return to the emergency department or your primary care doctor for further evaluation. Bowel disimpaction as provided. Senna can be bought [id number]. 1 Square followed by 10 capfuls of MiraLAX in a bottle of Gatorade, drink this within 1 to 2 hours. Take another tablet of senna 1 to 2 hours after that. 1 capful of MiraLAX in perpetuity after having large volume bowel movements. Do not discontinue taking 1 capful of MiraLAX for any reason to prevent further constipation. Titrate 1 capful until having 1-2 soft bowel movements a day the consistency of toothpaste. Clinical Impressions Clinical Impression: Constipation Instructions Patient Instructions: DI for Acute Abdominal Pain Print Language Print Language: Gibraltarian Discharge ED Provider: Irvin Eastman General Adult HPI General Chief complaint: Abdominal Pain Stated complaint: Constipated Time Seen by Provider: 03/20/25 16:27 Mode of Arrival: Ambulatory Source of Information: Patient Description of Symptoms (Recalled from ER Triage Doc. by RN): pt presents to ED with c/o constipation. pt rpeorts no bowel movement for the past 4-5 days. pt reports that he had open heart surgery approx 1 month ago and has been having difficulty with bowel movements since then. History of Present Illness HPI narrative: Please note that above description of symptoms, in this electronic medical record under categorization of recalled from ER triage doctor by RN are reflective of an initial nursing assessment, however, is not reflective of my full history and physical exam that was personally taken and clarified. Consequentially, this preceding description of symptoms, which may include the patient's categorized chief complaint in the EMR, do not reflect my personal clinical impression, and the ultimate description of history of present illness and patient stated complaints should be deferred to this section of the note. Unless stated otherwise or congruent with this section of the note, additional signs, symptoms, or incongruence should be interpreted as inaccurate with my clinical impression. Related Data Home Medications ?Medication ?Instructions ?Recorded ?Confirmed amlodipine 10 mg tablet 400 mg PO BID 03/12/25 apixaban 5 mg tablet (Eliquis) 5 mg PO DAILY 03/12/25 03/12/25 aspirin 81 mg tablet,delayed 81 mg PO DAILY 03/12/25 03/12/25 release atorvastatin 80 mg tablet 80 mg PO HS 03/12/25 03/12/25 docusate sodium 100 mg capsule 100 mg PO BID 03/12/25 03/12/25 furosemide 40 mg tablet 40 mg PO DAILY 03/12/25 03/12/25 lisinopril 40 mg tablet 40 mg PO DAILY 03/12/25 03/12/25 methocarbamol 500 mg tablet 1,000 mg PO Q6 03/12/25 03/12/25 metoprolol tartrate 75 mg tablet 75 mg PO BID 03/12/25 03/12/25 mometasone-formoterol HFA 100 2 puff inhalation BID 03/12/25 03/12/25 mcg-5 mcg/actuation aerosol inhaler oxycodone 10 mg tablet 10 mg PO Q6H PRN Pain 03/12/25 03/12/25 potassium chloride 20 mEq 20 meq PO DAILY 03/12/25 03/12/25 tablet,extended release Previous Rx's ?Medication ?Instructions ?Recorded famotidine 20 mg tablet (Pepcid) 20 mg PO BID #180 tabs 03/10/24 Allergies Allergy/AdvReac Type Severity Reaction Status Date / Time No Known Allergies Allergy Verified 09/29/24 12:33 [facility] Disclaimer: The information contained in this section may have been updated after the patient was seen, as this information can be updated by other users. 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 (Updated 03/20/25 @ 20:40 by Irvin Eastman MD) History of left heart catheterization COPD (chronic obstructive pulmonary disease) Screening for malignant neoplasm of colon Encounter for screening for abdominal aortic aneurysm (AAA) in patient 50 years of age or older with history of smoking Encounter for prostate cancer screening Exposure to hepatitis C Encounter for screening for diabetes mellitus Encounter for screening examination for sexually transmitted disease Neck pain Thoracic back pain Bronchitis Need for RSV immunization Left flank pain Left sided abdominal pain Cervical radiculopathy Acute viral syndrome Pharyngitis Generalized body aches Sinusitis Scalp irritation Fatigue Eustachian tube dysfunction Cervical radiculopathy Bilateral arm pain Bilateral shoulder pain Neck pain Occult blood in stools Angina at rest Shoulder pain Neck pain Abdominal pain Nerve damage Chest pain Hypertension Exposure to COVID-19 virus Corneal abrasion Amputation of finger tip Urethral colic due to calculus Renal colic on right side Surgical History (Updated 03/16/25 @ 00:00 by Nacho Gonzalez) Hx of inguinal hernia repair History of shoulder surgery History of neck surgery History of knee surgery Family History , 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) No significant family 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 (Updated 02/16/25 @ 15:10 by Alesia Pinon RN) Smoking Status: Former smoker tobacco type: cigarettes packs per day: 1 quit status: has quit before alcohol intake: never substance use type: denies use current occupational status: retired Travel in the last 8 weeks?: None adopted: No caregiver/support person: No foster care: No household members: friend(s) housing: apartment lives independently: Yes marital status: single number of children: 3 number of grandchildren: 7 service: Yes (discharged 1985) 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: No Have you lived/traveled outside [place] in past 30 days?: No Contact w/someone who lives/traveled outside US past 30 days?: No Exposure to someone with infectious disease in past 14 days?: No Do you have a fever (greater than 100.4 F or 38 C)?: No Have you tested positive for COVID-19?: No Exposed to someone with COVID-19 in past 14 days?: No Do you have a sore throat?: No Do you have a cough?: No Do you have any weakness?: No Do you have any diarrhea?: No Are you experiencing any unusual bleeding?: No Do you have any muscle aches/pain?: No Do you have any abdominal pain?: No Are you experiencing loss of taste or smell?: No Other 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 Have you received the Flu Vaccine for this season: No Have you received the Pneumonia Vaccine: No ROS Obtained: Yes All systems reviewed & no additional complaints except as documented Physical Exam General General appearance: alert Head Head exam: atraumatic and normocephalic Eye Eye exam: Present normal appearance, PERRL and EOMI Neck Neck exam: Present normal inspection, full ROM and trachea midline Respiratory Respiratory exam: Absent respiratory distress, wheezes, stridor, accessory muscl e use or prolonged expiratory phase Cardiovascular Cardiovascular exam: Present other (Pulses equal symmetric in upper and lower extremities) Abdominal Exam Abdominal exam: Present soft; Absent distention, tenderness or pulsatile mass Extremities Exam Extremities exam: Absent edema Neurological Exam Neurological exam: Present alert, oriented X3 and CN II-XII intact; Absent motor sensory deficit Skin Skin exam: Present warm and dry; Absent diaphoresis or erythema Medical Decision Making Medical Records Medical records reviewed: Yes I reviewed the patient's medical records. Screening: Per USPSTF and CDC recommendations, given the prevalence of disease in our region, it is our hospital?s policy to screen for HIV and viral Hepatitis for all patients aged 18 and over and those with ongoing risk factors. Kalpesh Inquiry Pt receiving controlled substance: No Kalpesh was queried for this patient: No Vital Signs: 03/20/25 16:38 03/20/25 16:39 03/20/25 17:00 Temperature 97.6 F Temperature Source Oral Pulse Rate 69 68 Pulse Rate [Left Radial] 71 Respiratory Rate 16 Blood Pressure 113/60 103/57 L Blood Pressure [Right Arm] 104/56 L Blood Pressure Mean [Right Arm] 72 02 Sat by Pulse Oximetry 100 97 100 Oxygen Delivery Method Room Air Room Air 03/20/25 17:30 03/20/25 18:00 03/20/25 18:30 Temperature Temperature Source Pulse Rate 63 66 69 Pulse Rate [Left Radial] Respiratory Rate Blood Pressure 118/48 L 120/57 L 117/50 L Blood Pressure [Right Arm] Blood Pressure Mean [Right Arm] 02 Sat by Pulse Oximetry 100 100 98 Oxygen Delivery Method Room Air Room Air Room Air 03/20/25 19:00 Temperature Temperature Source Pulse Rate 70 Pulse Rate [Left Radial] Respiratory Rate Blood Pressure 106/49 L Blood Pressure [Right Arm] Blood Pressure Mean [Right Arm] 02 Sat by Pulse Oximetry 99 Oxygen Delivery Method Room Air Orders (Tests/Meds): ED MEDICATIONS Discontinued Medications Generic Name Dose Route Start Last Admin Trade Name Micah PRN Reason Stop Dose Admin Lactulose 20 gm 03/20/25 16:29 03/20/25 17:07 Lactulose 20gm/30ml Udc PO 03/20/25 16:30 20 gm ONCE ONE Administration Lactulose 60 gm 03/20/25 19:17 03/20/25 20:25 Lactulose 20gm/30ml Udc RC 03/20/25 19:18 60 gm ONCE ONE Administration Magnesium Citrate 10 oz 03/20/25 16:28 03/20/25 17:07 Magnesium Citrate 10oz Bottle PO 03/20/25 16:29 10 oz ONCE ONE Administration ORDERS Category Date Time Status CT abdomen pelvis wo con Stat Cat Scan 03/20/25 19:17 Taken Medical Decision Narrative: 64-year-old male presenting with constipation. He had abdominal surgery on February 22, 2025, states he has not had a bowel movement for about 5 days despite using stool softeners. States that he puts out small matilde and has blood associated with them as he is having rectal pain. No abdominal pain, nausea, vomiting, fevers, chills, or any other concerns. Came in for further evaluation. History was obtained via conversation with patient. On arrival, patient hemodynamically stable, alert, oriented x4, appropriate, GCS 15, moving all extremities spontaneously, pupils equal and reactive to light. Full physical exam performed and significant for well-appearing male no acute distress. He does have abdominal incisions that are clean, dry, intact with sutures in place, no evidence of abnormality. Abdomen soft, nontender, nondistended. No other changes otherwise. Differential includes constipation, less likely to be bowel obstruction, intra-abdominal abscess, among others. This patient clinically well, hemodynamically stable, no systemic signs or symptoms, normal physical exam, patient be given enema and oral medications. Labs and imaging considered, not any necessary at this time for these reasons. On reevaluation, patient having small-volume bowel movements with matilde. Manual disimpaction was attempted and I was able to remove multiple large pellets stool and break up the rest. Patient aborted procedure secondary to discomfort. I tried offering patient more enema medications, he is declining at this time. CT scan was obtained. Patient does have constipation and small pellets, but no large, single mass impaction. Appropriate for outpatient management with bowel regimen. Because patient at baseline without signs or symptoms of clinical decompensation, deemed appropriate for discharge. Results were relayed to patient who voiced understanding and were agreeable to outpatient management and follow up. I discussed my clinical impression with patient and answered all questions. At this time, the evidence for any other entities in the differential is insufficient to warrant any further testing or ED observation. This was explained as well. Advisory was given that persistent or worsening symptoms require further evaluation. I confirmed the understanding of this discussion. Paperhanger Pipe disclaimer Much of this encounter note is an electronic paper reeler spoken language to printed text. Electronic paper reeler of the spoken language may permit errors. Although I have reviewed the note, some errors may still exist. Procedures Rectal Disimpaction Time out performed rectal disimpaction: Yes Indication: fecal impaction Procedural Sedation: No Sedation/Analgesia: none Technique: manual disimpaction with gloved finger Result: significant stool output (mild to moderate output, broke up remaining ) Patient Tolerated Procedure: well Complications: pain Critical Care Critical Care Time Critical Care Time: No
--- NOTE | 2025-03-20 18:11 | PC.NURSE ---
soap suds enema administered per rectum. with approx 100 mls left in bag, pt began to complain about pain and cramping. enema was removed. pt given call bolton , side rails raised. pt instructed to call for assistance when he needs to use the bathroom.
--- NOTE | 2025-03-20 19:17 | CT_ITS ---
PROCEDURE INFORMATION: Exam: CT Abdomen And Pelvis Without Contrast Exam date and time: 03/20/2025 7:26 PM Age: 64 years old Clinical indication: Other: Constipation, unable to disimpact TECHNIQUE: Imaging protocol: Computed tomography of the abdomen and pelvis without contrast. Radiation optimization: All CT scans at this facility use at least one of these dose optimization techniques: automated exposure control; mA and/or kV adjustment per patient size (includes targeted exams where dose is matched to clinical indication); or iterative reconstruction. COMPARISON: CT ABDOMEN PELVIS W CON 03/12/2025 1:54 AM FINDINGS: Liver: Normal. No mass. Gallbladder and biliary ducts: Normal. No calcified stones. No ductal dilation. Pancreas: Normal. No ductal dilation. Spleen: Normal. No splenomegaly. Adrenal glands: Normal. No mass. Kidneys and ureters: Several nonobstructing calyceal calculi are again present in the bilateral collecting systems. Largest at the right kidney measures about 13 mm in diameter in the axial plane. No hydronephrosis or ureteral calculus Stomach and bowel: Increased stool burden in particular at the rectum Appendix: No evidence of appendicitis. Intraperitoneal space: Unremarkable. No free air. No significant fluid collection. Vasculature: Unremarkable. No abdominal aortic aneurysm. Lymph nodes: Unremarkable. No enlarged lymph nodes. Urinary bladder: Unremarkable as visualized. Reproductive: Unremarkable as visualized. Bones/joints: Unremarkable. No acute fracture. Soft tissues: Gas is present in the right gluteus muscle slightly increased from previous examination without well-defined fluid collection. This appears to track towards the cleft where there is likely a fistulous wound or previous drainage catheter tract IMPRESSION: 1. Mild constipation 2. Gas containing abscess in the right gluteus muscle maybe slightly more prominent compared to previous examination. Suspect decompression of the cleft with overlying wound dressing 3. No new abscess 4. Nephrolithiasis without hydronephrosis or ureteral calculus
[2025-03-20] MEDS: LACTULOSE 20GM/30ML UDC 60 GM RC (20:25)
--- NOTE | 2025-03-20 22:08 | PC.NURSE ---
COCCYX WOUND PACKING REMOVED, REPACKED WITH 1 INCH IODIFORM PACKING. FOAM MEPILEX APPLIED. CLEAN DEPENDS PLACED. ASSISTED PATIENT WITH GETTING DRESSED.
== END 2025-03-20 22:09 | disposition home or self-care (01) ==
PROVIDERS: Emergency Provider Emergency Medicine; PCP Nurse Practitioner Family
DX: K59.00 Constipation, unspecified (principal)
CPT/HCPCS: 74176; 99284

== ENCOUNTER 2025-03-24 22:41 | Emergency (ER) | payer MEDICARE, OTHER, SELFPAY ==
[2025-03-24] VITALS (17 sets, daily range): BP systolic 72–146; BP diastolic 34–70; PULSE 55–60; RESP 12–28; TEMP 36.6; O2SAT 99–100; BMI 29.2
--- NOTE | 2025-03-24 22:36 | ECG_ITS ---
APPROVED REPORT Exam: Resting ECG HR:64 bpm ECG Measurements Heart Rate 64 AXES IN 183 P 66 QRSd 88 QRS 38 QT 447 T 125 QTc [address] DEVIATION AND MODERATE T-WAVE ABNORMALITY, CONSIDER ANTERIOR ISCHEMIA [-0.1+ mV T-WAVE IN V3/V4] ST DEVIATION AND MODERATE T-WAVE ABNORMALITY, CONSIDER INFERIOR ISCHEMIA [-0.1+ mV T-WAVE IN II/aVF] No STEMI Electronically signed by : RIN RESENDIZ, 03/26/2025 23:35:42
--- NOTE | 2025-03-24 22:40 | XR_ITS ---
PROCEDURE INFORMATION: Exam: XR Chest Exam date and time: 03/24/2025 10:46 PM Age: 64 years old Clinical indication: Pain; Other: Cp; Additional info: Chest pain TECHNIQUE: Imaging protocol: Radiologic exam of the chest. Views: 1 view. COMPARISON: CT ANGIO CHEST PE PROTOCOL 03/12/2025 12:31 AM FINDINGS: Lungs: Unremarkable. No consolidation. Pleural spaces: Unremarkable. No pleural effusion. No pneumothorax. Heart/Mediastinum: Moderate cardiomegaly. Sternotomy wires. Bones/joints: Cervical spine fixation hardware.. IMPRESSION: No acute findings.
--- NOTE | 2025-03-24 22:41 | ECG_ITS ---
APPROVED REPORT Exam: Resting ECG HR:62 bpm ECG Measurements Heart Rate [address] 168 P 61 QRSd 98 QRS 41 QT 451 T 102 QTc [address] DEVIATION AND MODERATE T-WAVE ABNORMALITY, CONSIDER ANTEROLATERAL ISCHEMIA [-0.1+ mV T-WAVE IN V3-V6] No STEMI, not significantly changed from prior Electronically signed by : RIN RESENDIZ, 03/24/2025 23:26:22
[2025-03-24 22:46] LABS: Basophils % 0.3 % (0.1-2.0); Eosinophils # 0.1 Kmm3 (0.0-0.4); Eosinophils % 1.2 % (0.1-12.0); Immature Granulocytes # 0.09 10^3uL; Immature Granulocytes % 1.5 %; Lymphocytes # 2.8 K/mm3 (0.7-4.5); Lymphocytes % 46.8 % (10-50); Mean Corpuscular HGB Conc 29.9 g/dL (31.8-35.4); Mean Corpuscular Hemoglobin 28.8 pg (27.0-31.2); Mean Corpuscular Volume 96.3 fl (80-94); Mean Platelet Volume 10.3 fl (7.4-10.4); Monocytes # 0.5 K/mm3 (0.1-1.0); Monocytes % 8.4 % (1.7-9.3); Neutrophils # 2.5 K/mm3 (1.8-7.8); Neutrophils % 41.8 % (37.0-80.0); Nucleated Red Blood Cells # 0.02 10^3/uL; Nucleated Red Blood Cells % 0.3 %; Platelet Count 218 K/mm3 (142-424); Red Blood Count 1.63 M/mm3 (4.60-6.20); Red Cell Distribution Width 22.2 % (11.5-17.5); Red Cell Distribution Width-SD 74.9 fL
[2025-03-24 22:49] LABS: Hematocrit 15.7 % (42.0-52.0)
--- NOTE | 2025-03-24 22:55 | PC.NURSE ---
decision for emergent blood, lab contacted and 2nd IV insertion at this time.
[2025-03-24 22:57] LABS: Hemoglobin 4.7 g/dL (14.1-18.0)
[2025-03-24 22:58] LABS: Albumin Level 2.2 g/dl (3.5-5.0); Chloride 113 mmol/L (98-107); Sodium 134 mmol/L (136-145)
--- NOTE | 2025-03-24 22:59 | CT_ITS ---
PROCEDURE INFORMATION: Exam: CTA Abdomen and Pelvis With Contrast Exam date and time: 03/24/2025 11:29 PM Age: 64 years old Clinical indication: Abdominal pain; Acute; Additional info: Recent cabg hgb 4 TECHNIQUE: Imaging protocol: Computed tomographic angiography of the abdomen and pelvis with contrast. Exam focused on the arteries. 3D rendering (Not supervised by radiologist): MIP and/or 3D reconstructed images were created by the technologist. Radiation optimization: All CT scans at this facility use at least one of these dose optimization techniques: automated exposure control; mA and/or kV adjustment per patient size (includes targeted exams where dose is matched to clinical indication); or iterative reconstruction. Contrast material: ISOVUE; Contrast volume: 80 ml; Contrast route: INTRAVENOUS (IV); COMPARISON: CT ABDOMEN PELVIS WO CON 03/20/2025 7:26 PM FINDINGS: Esophagus: The esophagus is normal. Aorta: The aorta demonstrates severe atherosclerotic calcification and ectasia. The abdominal aorta as at especially the infrarenal abdominal aorta shows extensive and severe polypoid ulcerated soft plaque with multifocal areas of luminal stenosis ranging up to 60% image 2/402-486 and image 4/60. Celiac trunk and mesenteric arteries: Focal high-grade stenosis at the origin of the celiac artery image 7/126. The SMA is patent. Mild multifocal soft plaque in the SMA branches. The RAMON is not well identified. Renal arteries: The renal arteries are patent. Right iliac arteries: No occlusion or significant stenosis. Left iliac arteries: Moderately high-grade stenosis the left external iliac artery image [id number]. Probable occlusion left internal iliac artery due to calcific plaque. Veins: Portal vein, splenic vein, SMV are patent. Liver: The liver is normal. Gallbladder and biliary ducts: The gallbladder is normal. Pancreas: Pancreas appears normal. Spleen: See Adrenal glands finding. Adrenal glands: The adrenal glands appear normal.Spleen is normal Kidneys and ureters: Bilateral nonobstructing caliceal calculi again seen. The largest in the right kidney measures 13 mm. Bilateral renal cysts. Nonspecific bowel gas pattern. Stomach and bowel: Improvement in stool burden in the rectum compare with the previous study. The stomach is normal. Appendix: A normal appendix is identified. Intraperitoneal space: Unremarkable. No free air. No significant fluid collection. Lymph nodes: No free air or fluid or adenopathy. Urinary bladder: The bladder is normal. Reproductive: Unremarkable as visualized. Bones/joints: No acute fracture. Soft tissues: Redemonstration of gas in the right gluteus muscle with gluteus muscle thickening similar to the previous exam from 03/20/2025. This may represent a fistulous wound or drainage track. Bilateral fat filled inguinal hernias. Other findings: Extensive calcific plaque in the common iliac vessels. IMPRESSION: 1. No free air or fluid or adenopathy. 2. No evidence for abdominal abscess or hematoma. 3. The aorta demonstrates severe atherosclerotic calcification and ectasia. 4. The abdominal aorta as at especially the infrarenal abdominal aorta shows extensive and severe polypoid ulcerated soft plaque with multifocal areas of luminal stenosis ranging up to 60% image 2/402-486 and image 4/60. 5. The renal arteries are patent. 6. 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 7. The SMA is patent. Mild multifocal soft plaque in the SMA branches. 8. The RAMON is not well identified. 9. Extensive calcific plaque in the common iliac vessels. 10. Moderately high-grade stenosis the left external iliac artery image [id number]. 11. Probable occlusion left internal iliac artery due to calcific plaque. 12. Bilateral nonobstructing caliceal calculi again seen. The largest in the right kidney measures 13 mm. 13. Improvement in stool burden in the rectum compare with the previous study. 14. Redemonstration of gas in the right gluteus muscle with gluteus muscle thickening similar to the previous exam from 03/20/2025. This may represent a fistulous wound or drainage track.
--- NOTE | 2025-03-24 22:59 | CT_ITS ---
PROCEDURE INFORMATION: Exam: CTA Chest With Contrast Exam date and time: 03/24/2025 11:29 PM Age: 64 years old Clinical indication: Pain; Chest pressure; Additional info: Recent cabg malaise downtrending hgb TECHNIQUE: Imaging protocol: Computed tomographic angiography of the chest with contrast. Exam focused on the arteries. 3D rendering (Not supervised by radiologist): MIP and/or 3D reconstructed images were created by the technologist. Radiation optimization: All CT scans at this facility use at least one of these dose optimization techniques: automated exposure control; mA and/or kV adjustment per patient size (includes targeted exams where dose is matched to clinical indication); or iterative reconstruction. Contrast material: ISOVUE; Contrast volume: 80 ml; Contrast route: INTRAVENOUS (IV); COMPARISON: CT ANGIO CHEST PE PROTOCOL 03/12/2025 12:31 AM FINDINGS: Tubes, catheters and devices: Aortic valve prosthesis. Pulmonary arteries: Normal. No pulmonary emboli. Great vessels off aortic arch: Great vessel origins are patent. Aorta: No evidence for aortic aneurysm or dissection. The thoracic aorta demonstrates moderate atherosclerotic calcification and ectasia. Lungs: No focal infiltrates. Pleural spaces: Unremarkable. No pneumothorax. No pleural effusion. Heart: Mild cardiomegaly. Coronary arteries: Severe coronary artery calcifications. Status post CABG. Mediastinal space: Mediastinal clips. Mild infiltration of the anterior mediastinal fat may reflect postoperative change. Lymph nodes: Unremarkable. No enlarged lymph nodes. Bones/joints: Sternotomy wires. Cervical spine interposition graft and anterior screw plate fixation hardware. Soft tissues: Unremarkable. IMPRESSION: 1. No evidence for aortic aneurysm or dissection. 2. Mild cardiomegaly. 3. Sternotomy wires. 4. Mediastinal clips. 5. Severe coronary artery calcifications. 6. Aortic valve prosthesis. 7. Status post CABG. 8. Mild infiltration of the anterior mediastinal fat may reflect postoperative change. 9. No significant mediastinal hematoma. 10. The thoracic aorta demonstrates moderate atherosclerotic calcification and ectasia. 11. No focal infiltrates.
[2025-03-24 23:01] LABS: Alanine Aminotransferase 21 U/L (12-78); Albumin/Globulin Ratio 0.9 (1.1-1.8); Alkaline Phosphatase 62 U/L (38-126); Aspartate Amino Transferase 33 U/L (17-59); Bilirubin,Total 0.6 mg/dl (0.2-1.3); Blood Urea Nitrogen 31 mg/dl (9-20); Carbon Dioxide 19 mmol/L (22.0-30.0); Creatinine Clearance Estimated 98 mL/min (50-200); Estimated Glomerular Filt Rate 113 ml/min (>60); GFR (African American) 137 ML/MIN (>60); Globulin 2.5 g/dL (1.3-3.2); Lipase 80 U/L (23-300); Total Protein,Serum 4.7 g/dl (6.3-8.2)
[2025-03-24 23:02] LABS: Glucose 84 mg/dl (74-100)
--- NOTE | 2025-03-24 23:02 | PC.NURSE ---
consents obtained for emergent blood
--- NOTE | 2025-03-24 23:06 | PC.NURSE ---
2307 blood intitated throught 18g RAC.
--- NOTE | 2025-03-24 23:07 | ED_ITS ---
Discharge Plan Disposition Patient Disposition: Xfer Short-Term Hosp Condition: Serious Prescriptions Prescriptions: No Action famotidine [Pepcid] 20 mg tablet 20 mg PO BID Qty: 180 3RF amlodipine 10 mg tablet 400 mg PO BID Eliquis 5 mg Tablet 5 mg PO DAILY aspirin [Aspir-81] 81 mg Tablet,Delayed Release (Dr/Ec) 81 mg PO DAILY atorvastatin 80 mg Tablet 80 mg PO HS docusate sodium [DSS] 100 mg Capsule 100 mg PO BID furosemide 40 mg Tablet 40 mg PO DAILY lisinopril 40 mg Tablet 40 mg PO DAILY methocarbamol 500 mg Tablet 1,000 mg PO Q6 metoprolol tartrate 75 mg Tablet 75 mg PO BID mometasone-formoterol 100-5 mcg/actuation Hfa Aerosol Inhaler 2 puff INHALATION BID oxycodone 10 mg Tablet 10 mg PO Q6H PRN (Reason: Pain) potassium chloride 20 mEq Tablet Extended Release 20 meq PO DAILY Referrals Follow up/Referrals: Provider,Referral, MD [Primary Care Provider] - See instructions Clinical Impressions Clinical Impression: Hypotension, Anemia, Prerenal azotemia Stand Alone Forms Stand Alone Forms: Transfer Record - ED Print Language Print Language: Spanish Discharge ED Provider: Anais Iglesias HPI <Anais Iglesias DO - Last Filed: 03/24/25 23:17> General Chief Complaint: Chest Pain Stated Complaint: CP Time Seen by Provider: 03/24/25 22:48 Mode of Arrival: EMS Source of Information: Patient and EMS Description of Symptoms (Recalled from ER Triage Doc. by RN): Pt presents to the ed via ems with c/o midtsernal chest pain that radaites into his left arm that began approx 3 days ago. Pt reports CABG approx 1 month ago at . EMS reports patient has had nitro x2 and 324 ASA enroute with BP 68/34 History of Present Illness HPI narrative: This patient is a 64-year-old male with a history of CAD status post CABG and aortic valve replacement 02/21/2025, gluteal abscess status post incision and drainage at 03/12/2025, A-fib with RVR status post cardioversion at over 1 week ago, CHF, COPD, hypertension, hyperlipidemia, BPH, GERD, tobacco abuse presented to the emergency department for evaluation with concern for weakness, fatigue, chest tightness radiating down his left arm. Patient states that he is been feeling bad for about 3 days now, too weak to get out of bed and having no appetite. He was supposed to follow-up with today but was unable to because he could not even stand. He notes whenever he tries to get up and get moving around, he gets chest tightness that radiates down his left arm. He also notes intermittent shortness of breath, but states this is no worse than usual. No fevers, cough, congestion, abdominal pain, nausea, vomiting, changes in bowel movements, melena, hematochezia, or other concerns. He notes that he is not really having good bowel movements because he has not been eating anything. He arrives with EMS who noted no significant changes on EKG per they report prior to arrival. They administered aspirin and nitroglycerin sprays x 2. Related Data Home Medications ?Medication ?Instructions ?Recorded ?Confirmed amlodipine 10 mg tablet 400 mg PO BID 03/12/25 apixaban 5 mg tablet (Eliquis) 5 mg PO DAILY 03/12/25 03/12/25 aspirin 81 mg tablet,delayed 81 mg PO DAILY 03/12/25 03/12/25 release atorvastatin 80 mg tablet 80 mg PO HS 03/12/25 03/12/25 docusate sodium 100 mg capsule 100 mg PO BID 03/12/25 03/12/25 furosemide 40 mg tablet 40 mg PO DAILY 03/12/25 03/12/25 lisinopril 40 mg tablet 40 mg PO DAILY 03/12/25 03/12/25 methocarbamol 500 mg tablet 1,000 mg PO Q6 03/12/25 03/12/25 metoprolol tartrate 75 mg tablet 75 mg PO BID 03/12/25 03/12/25 mometasone-formoterol HFA 100 2 puff inhalation BID 03/12/25 03/12/25 mcg-5 mcg/actuation aerosol inhaler oxycodone 10 mg tablet 10 mg PO Q6H PRN Pain 03/12/25 03/12/25 potassium chloride 20 mEq 20 meq PO DAILY 03/12/25 03/12/25 tablet,extended release Previous Rx's ?Medication ?Instructions ?Recorded famotidine 20 mg tablet (Pepcid) 20 mg PO BID #180 tabs 03/10/24 Allergies Allergy/AdvReac Type Severity Reaction Status Date / Time No Known Allergies Allergy Verified 09/29/24 12:33 [facility] <Anais Iglesias DO - Last Filed: 03/24/25 23:17> [facility] Disclaimer: The information contained in this section may have been updated after the patient was seen, as this information can be updated by other users. 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 History of left heart catheterization COPD (chronic obstructive pulmonary disease) Screening for malignant neoplasm of colon Encounter for screening for abdominal aortic aneurysm (AAA) in patient 50 years of age or older with history of smoking Encounter for prostate cancer screening Exposure to hepatitis C Encounter for screening for diabetes mellitus Encounter for screening examination for sexually transmitted disease Neck pain Thoracic back pain Bronchitis Need for RSV immunization Left flank pain Left sided abdominal pain Cervical radiculopathy Acute viral syndrome Pharyngitis Generalized body aches Sinusitis Scalp irritation Fatigue Eustachian tube dysfunction Cervical radiculopathy Bilateral arm pain Bilateral shoulder pain Neck pain Occult blood in stools Angina at rest Shoulder pain Neck pain Abdominal pain Nerve damage Chest pain Hypertension Exposure to COVID-19 virus Corneal abrasion Amputation of finger tip Urethral colic due to calculus Renal colic on right side Surgical History Hx of inguinal hernia repair History of shoulder surgery History of neck surgery History of knee surgery Family History Other No significant family 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 Smoking Status: Former smoker tobacco type: cigarettes packs per day: 1 quit status: has quit before alcohol intake: never substance use type: denies use current occupational status: retired Travel in the last 8 weeks?: None adopted: No caregiver/support person: No foster care: No household members: friend(s) housing: apartment lives independently: Yes marital status: single number of children: 3 number of grandchildren: 7 service: Yes (discharged 1985) 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 long-term: No Have you lived/traveled outside [place] in past 30 days?: No Contact w/someone who lives/traveled outside [place] past 30 days?: No Exposure to someone with infectious disease in past 14 days?: No Do you have a fever (greater than 100.4 F or 38 C)?: No Have you tested positive for COVID-19?: No Exposed to someone with COVID-19 in past 14 days?: No Do you have a sore throat?: No Do you have a cough?: No Do you have any weakness?: No Do you have any diarrhea?: No Are you experiencing any unusual bleeding?: No Do you have any muscle aches/pain?: No Do you have any abdominal pain?: No Are you experiencing loss of taste or smell?: No Other 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 Have you received the Flu Vaccine for this season: No Have you received the Pneumonia Vaccine: No <Anais Iglesias DO - Last Filed: 03/24/25 23:17> ROS Obtained: Yes All systems reviewed & no additional complaints except as documented Physical Exam <Anais Iglesias DO - Last Filed: 03/24/25 23:17> General General appearance: alert Comment: Pale, ill-appearing Head Head exam: atraumatic and normocephalic Eye Eye exam: Present normal appearance, PERRL and EOMI ENT ENT exam: Present normal exam, normal oropharynx, mucous membranes moist and normal external ear exam Neck Neck exam: Present normal inspection, full ROM and trachea midline; Absent tenderness Chest Chest inspection: Present normal inspection and symmetric chest wall rise; Absent tenderness Respiratory Respiratory exam: Present normal lung sounds bilaterally; Absent respiratory distress, wheezes, stridor or accessory muscle use Cardiovascular Cardiovascular exam: Present regular rate and normal rhythm Abdominal Exam Abdominal exam: Present soft; Absent distention, tenderness or guarding Rectal Exam Rectal exam: Present normal inspection; Absent bloody stool Extremities Exam Extremities exam: Present normal inspection, full ROM and normal capillary refill; Absent tenderness or edema Back Exam Back exam: Present full ROM; Absent tenderness Back 1 view image: 2 1. Open wound with packing, no obvious purulence. No significant redness or warmth surrounding this. Neurological Exam Neurological exam: Present alert, oriented X3, CN II-XII intact and normal gait; Absent motor sensory deficit Psychiatric Psychiatric exam: Present normal affect and normal mood Skin Skin exam: Present warm, dry, pallor and other (Some healing bruising of abdomen from injections while admitted, some healing bruising of the right lower extremity from bypass graft harvesting) HEART Score <Anais Iglesias DO - Last Filed: 03/24/25 23:17> HEART Score HEART Score assessment performed?: No <Bianca Rinaldi MD - Last Filed: 03/25/25 02:32> HEART Score HEART Score assessment performed?: Yes History (anamnesis): Moderately suspicious ECG: Non-specific disturbance Age: >65 years Risk factors: Atherosclerosis history Troponin: </= normal limit HEART Score: 6 Critical Care <Anais Iglesias DO - Last Filed: 03/24/25 23:17> Critical Care Time Critical Care Time: No <Bianca Rinaldi MD - Last Filed: 03/25/25 02:32> Critical Care Time Critical Care Time: Yes Attestation: On 03/24/25, the high probability of a clinically significant, sudden or life threatening deterioration of the following system(s) (cardiac/hemodynamic) required my full and direct attention, intervention and personal management. The time I documented below is in addition to time spent performing reported procedures but includes the following listed in this critical care notation. Total Time Total Critical Care Time: 95 Medical Decision Making <Anais Iglesias DO - Last Filed: 03/24/25 23:17> Kalpesh Inquiry Pt receiving controlled substance: No Vital Signs Vital Signs: 03/24/25 22:46 03/24/25 22:51 03/24/25 22:52 Temperature 97.8 F Temperature Source Oral Pulse Rate 60 59 L Pulse Rate [Radial] 60 Respiratory Rate 16 15 14 Blood Pressure 86/50 L 86/50 L Blood Pressure [Right Arm] 72/39 L Blood Pressure Mean Blood Pressure Mean [Right Arm] 50 Blood Pressure Position Supine Blood Pressure Position [Right Arm] Supine 02 Sat by Pulse Oximetry 99 100 99 Oxygen Delivery Method Room Air Room Air 03/24/25 22:54 03/24/25 23:00 03/24/25 23:01 Temperature Temperature Source Pulse Rate 60 59 L Pulse Rate [Radial] Respiratory Rate 17 12 Blood Pressure 79/42 L 81/46 L 81/46 L Blood Pressure [Right Arm] Blood Pressure Mean Blood Pressure Mean [Right Arm] Blood Pressure Position Blood Pressure Position [Right Arm] 02 Sat by Pulse Oximetry 100 Oxygen Delivery Method 03/24/25 23:09 03/24/25 23:10 03/24/25 23:15 Temperature Temperature Source Pulse Rate 56 L 56 L 57 L Pulse Rate [Radial] Respiratory Rate 21 20 26 H Blood Pressure 82/35 L 87/34 L 92/47 L Blood Pressure [Right Arm] Blood Pressure Mean Blood Pressure Mean [Right Arm] Blood Pressure Position Blood Pressure Position [Right Arm] 02 Sat by Pulse Oximetry 100 100 100 Oxygen Delivery Method 03/24/25 23:19 03/24/25 23:20 03/24/25 23:35 Temperature Temperature Source Pulse Rate 56 L 55 L 58 L Pulse Rate [Radial] Respiratory Rate 13 21 28 H Blood Pressure 105/52 L 100/54 L 128/59 L Blood Pressure [Right Arm] Blood Pressure Mean Blood Pressure Mean [Right Arm] Blood Pressure Position Blood Pressure Position [Right Arm] 02 Sat by Pulse Oximetry 100 100 100 Oxygen Delivery Method 03/24/25 23:38 03/24/25 23:40 03/24/25 23:45 Temperature Temperature Source Pulse Rate 58 L 58 L 57 L Pulse Rate [Radial] Respiratory Rate 21 20 19 Blood Pressure 140/67 133/64 138/68 Blood Pressure [Right Arm] Blood Pressure Mean Blood Pressure Mean [Right Arm] Blood Pressure Position Blood Pressure Position [Right Arm] 02 Sat by Pulse Oximetry 100 100 100 Oxygen Delivery Method 03/24/25 23:50 03/24/25 23:55 03/25/25 00:00 Temperature Temperature Source Pulse Rate 57 L 56 L 56 L Pulse Rate [Radial] Respiratory Rate 27 H 16 17 Blood Pressure 143/70 H 146/66 H 142/71 H Blood Pressure [Right Arm] Blood Pressure Mean Blood Pressure Mean [Right Arm] Blood Pressure Position Blood Pressure Position [Right Arm] 02 Sat by Pulse Oximetry 99 100 100 Oxygen Delivery Method 03/25/25 00:05 03/25/25 00:10 03/25/25 00:15 Temperature Temperature Source Pulse Rate 55 L 56 L 59 L Pulse Rate [Radial] Respiratory Rate 17 17 20 Blood Pressure 143/71 H 142/69 H 141/67 H Blood Pressure [Right Arm] Blood Pressure Mean Blood Pressure Mean [Right Arm] Blood Pressure Position Blood Pressure Position [Right Arm] 02 Sat by Pulse Oximetry 100 100 100 Oxygen Delivery Method 03/25/25 00:20 03/25/25 00:25 03/25/25 00:30 Temperature Temperature Source Pulse Rate 60 61 60 Pulse Rate [Radial] Respiratory Rate 19 16 21 Blood Pressure 141/69 H 146/71 H 143/67 H Blood Pressure [Right Arm] Blood Pressure Mean 93 96 92 Blood Pressure Mean [Right Arm] Blood Pressure Position Blood Pressure Position [Right Arm] 02 Sat by Pulse Oximetry 100 100 97 Oxygen Delivery Method 03/25/25 00:36 03/25/25 00:41 03/25/25 00:45 Temperature Temperature Source Pulse Rate 61 61 61 Pulse Rate [Radial] Respiratory Rate 24 15 13 Blood Pressure 133/52 L 130/43 L 123/54 L Blood Pressure [Right Arm] Blood Pressure Mean 79 72 77 Blood Pressure Mean [Right Arm] Blood Pressure Position Blood Pressure Position [Right Arm] 02 Sat by Pulse Oximetry 100 100 100 Oxygen Delivery Method 03/25/25 00:50 03/25/25 00:56 03/25/25 01:00 Temperature Temperature Source Pulse Rate 65 63 63 Pulse Rate [Radial] Respiratory Rate 16 15 20 Blood Pressure 144/108 H 117/46 L 122/55 L Blood Pressure [Right Arm] Blood Pressure Mean 120 69 77 Blood Pressure Mean [Right Arm] Blood Pressure Position Blood Pressure Position [Right Arm] 02 Sat by Pulse Oximetry 100 100 100 Oxygen Delivery Method 03/25/25 01:05 03/25/25 01:10 03/25/25 01:15 Temperature Temperature Source Pulse Rate 63 65 64 Pulse Rate [Radial] Respiratory Rate 20 15 16 Blood Pressure 120/52 L 120/50 L 127/54 L Blood Pressure [Right Arm] Blood Pressure Mean 74 73 63 Blood Pressure Mean [Right Arm] Blood Pressure Position Blood Pressure Position [Right Arm] 02 Sat by Pulse Oximetry 100 100 100 Oxygen Delivery Method 03/25/25 01:20 03/25/25 01:25 03/25/25 01:30 Temperature Temperature Source Pulse Rate 65 66 67 Pulse Rate [Radial] Respiratory Rate 15 16 17 Blood Pressure 117/53 L 118/53 L 121/63 Blood Pressure [Right Arm] Blood Pressure Mean 74 74 Blood Pressure Mean [Right Arm] Blood Pressure Position Blood Pressure Position [Right Arm] 02 Sat by Pulse Oximetry 100 100 100 Oxygen Delivery Method 03/25/25 01:35 03/25/25 01:40 03/25/25 01:45 Temperature Temperature Source Pulse Rate 67 65 65 Pulse Rate [Radial] Respiratory Rate 16 20 14 Blood Pressure 109/55 L 112/46 L 120/52 L Blood Pressure [Right Arm] Blood Pressure Mean 73 80 88 Blood Pressure Mean [Right Arm] Blood Pressure Position Blood Pressure Position [Right Arm] 02 Sat by Pulse Oximetry 100 100 100 Oxygen Delivery Method 03/25/25 01:50 03/25/25 01:55 03/25/25 02:01 Temperature Temperature Source Pulse Rate 65 65 66 Pulse Rate [Radial] Respiratory Rate 13 16 15 Blood Pressure 113/50 L 110/48 L 89/51 L Blood Pressure [Right Arm] Blood Pressure Mean 71 65 68 Blood Pressure Mean [Right Arm] Blood Pressure Position Blood Pressure Position [Right Arm] 02 Sat by Pulse Oximetry 100 100 100 Oxygen Delivery Method 03/25/25 02:05 03/25/25 02:10 Temperature Temperature Source Pulse Rate 67 67 Pulse Rate [Radial] Respiratory Rate 22 16 Blood Pressure 122/52 L 115/57 L Blood Pressure [Right Arm] Blood Pressure Mean 75 80 Blood Pressure Mean [Right Arm] Blood Pressure Position Blood Pressure Position [Right Arm] 02 Sat by Pulse Oximetry 100 100 Oxygen Delivery Method Lab Data Labs: Lab Results 03/24/25 22:37: WBC 6.0, RBC 1.63 L*, Hgb 4.7 L*, Hct 15.7 L*, MCV 96.3 H, MCH 28.8, MCHC 29.9 L, RDW 22.2 H, Plt Count 218, MPV 10.3, Neut % (Auto) 41.8, Lymph % (Auto) 46.8, [place] % (Auto) 8.4, Eos % (Auto) 1.2, Baso % (Auto) 0.3, Neut # (Auto) 2.5, Lymph # (Auto) 2.8, [place] # (Auto) 0.5, Eos # (Auto) 0.1, Baso # (Auto) 0.0, PT 15.6 H, INR 1.44 H, APTT 29.6, D-Dimer 1.45 H, Sodium 134 L, Potassium 3.7, Chloride 113 H, Carbon Dioxide 19 L, Anion Gap 5.7, BUN 31 H, Creatinine 0.70, Estimated Creat Clear 98, Estimated GFR 113, Est GFR ( Amer) 137, Glucose 84, Calcium 7.0 L, Total Bilirubin 0.6, AST 33, ALT 21, Alkaline Phosphatase 62, Troponin I 0.02, NT-Pro-B Natriuret Pep 1770 H, Total Protein 4.7 L D, Albumin 2.2 L, Globulin 2.5, Albumin/Globulin Ratio 0.9 L, Lipase 80, Blood Type Confirm O Positive 03/24/25 22:58: Blood Type O Positive, Antibody Screen Negative, Crossmatch (AHG) See Detail 03/25/25 00:34: Hgb 6.8 L* D, Hct 22.3 L 03/25/25 01:34: Troponin I 0.03 03/25/25 00:34 03/24/25 22:37 Response Orders (Tests/Meds): ED MEDICATIONS Generic Name Dose Route Start Last Admin Trade Name Freq PRN Reason Stop Dose Admin Sodium Chloride 250 mls @ 25 mls/hr 03/24/25 23:15 Sod Chlor 0.9% 250ml Bag IV 03/25/25 23:14 .Q10H KATHLEEN Discontinued Medications Generic Name Dose Route Start Last Admin Trade Name Freq PRN Reason Stop Dose Admin Iopamidol 80 ml 03/24/25 23:34 03/24/25 23:35 Iopamidol-370 (76%);100ml Bottle IV 03/24/25 23:35 80 ml ONCE ONE Administration Sodium Chloride 50 ml 03/24/25 23:34 03/24/25 23:35 0.9 % Sodium Chloride 50 Ml Vial IV 03/24/25 23:35 50 ml ONCE ONE Administration Sodium Chloride 10 ml 03/24/25 23:34 03/24/25 23:35 Sodium Chloride 0.9% 10ml Syr (Rad Only) IV 03/24/25 23:35 10 ml ONCE ONE Administration ORDERS Category Date Time Status Blood transfusion [Red Blood Cells] Stat BBK 03/24/25 22:58 Results Type and Screen Stat BBK 03/24/25 22:[address] angio abdomen pelvis Stat Cat Scan 03/24/25 22:[address] angio chest - dissection Stat Cat Scan 03/24/25 22:59 Completed CXR --portable [XR chest portable] Stat Exams 03/24/25 22:40 Completed BNP [NT Pro Brain Natriuretic Pep.] Stat Lab 03/24/25 22:37 Completed Complete Blood Count Auto Diff Stat Lab 03/24/25 22:37 Completed Comprehensive Metabolic Panel Stat Lab 03/24/25 22:37 Completed D-Dimer Stat Lab 03/24/25 22:37 Completed H/H [Hemoglobin and Hematocrit] Stat Lab 03/25/25 00:34 Completed Lipase Stat Lab 03/24/25 22:37 Completed Occult Blood,Stool Stat Lab 03/25/25 00:57 Ordered PT INR [Prothrombin Time INR] Stat Lab 03/24/25 22:37 Completed PTT [Activated Partial Thrombo Time] Stat Lab 03/24/25 22:37 Completed Trop I [Troponin I] Stat Lab 03/24/25 22:37 Completed Troponin I Q3H Lab 03/25/25 01:34 Completed Troponin I Q3H Lab 03/25/25 04:45 Ordered ECG Data Tracing #1: Attestation: I reviewed this ECG and interpreted as documented below: ECG Narrative: Normal sinus rhythm with a ventricular rate of [address]/T wave changes that are not significantly different from prior EKG. Motion artifact in V2 limits study ECG initial impression date: 03/24/25 ECG initial impression time: 22:38 Tracing #2: Attestation: I reviewed this ECG and interpreted as documented below: ECG Narrative: Normal sinus rhythm with a ventricular to [address]/T wave changes not significantly different from prior EKG. Incomplete right bundle branch block. No acute STEMI ECG initial impression date: 03/24/25 ECG initial impression time: 22:48 MDM Narrative Medical Decision Narrative: In summary, this patient is a 64-year-old male presenting to the Emergency Department for evaluation of chest tightness radiating down left arm, general weakness, fatigue. Differential diagnoses considered include but are not limited to ACS, dysrhythmia, PE, postoperative complication from recent CABG/aortic replacement, symptomatic anemia, pneumonia. Ruling out the most morbid conditions drove assessment. It should be noted patient's history includes CAD status post recent CABG, aortic valve replacement, tobacco dependence, hypertension, hyperlipidemia, COPD which likely are not at goal therapy. This complicates all aspects of care by increasing patient's risk for morbidity. I reviewed patient's past medical records and noted evaluations here and transfers to for CABG/aortic valve replacement as well as for the gluteal abscess and A-fib with RVR. I noted while at , his hemoglobin had been slowly trending downward, last 1 was around 7.6. On exam, the patient is lying in bed, pale, ill-appearing. He is alert and oriented x 4. He is hypotensive with systolics in the 70s, MAP in the 50s. He did receive nitroglycerin x 2 per EMS, unclear if this is the cause of hypotension. He is very pale. On recheck, blood pressure did not significantly improve with highest MAP that we got of 60 with a systolic in the 80s. Workup included broad lab evaluation to evaluate for infectious, metabolic, cardiac derangements as well as stat portable chest x-ray. EKGs were obtained that demonstrated nonspecific ST/T wave changes not significantly different from prior EKG. No acute STEMI.. I independently interpreted x-ray prior to the radiologist read and noted some haziness in the left lower lung, cannot exclude pleural effusion. Please see their read for final interpretation. Labs were obtained that demonstrated profound anemia with hemoglobin of 4.7. White count and platelet count normal. Chemistry demonstrates mild hyponatremia, hyperchloremia, mildly low CO2. Patient has mildly elevated BUN as well as mild hypocalcemia. He has albumin deficiency. Given hypotension with profound anemia, that could be related to the nitroglycerin he received, I elected to go ahead and treat him with emergent blood. IV fluid resuscitation had started with EMS with a small bolus of IV fluids, but I elected to discontinue this for fear of further dilutional effect on his hemoglobin. 2 units of emergent blood were ordered. At this time, patient care was signed out to the oncoming provider, Dr. Rinaldi, pending further workup. <Bianca Rinaldi MD - Last Filed: 03/25/25 02:32> Medical Records Medical records reviewed: Yes I reviewed the patient's medical records. MR Comment: Patient has had multiple recent visits to our ER including recent transfer to for A-fib RVR and gluteal abscess Vital Signs Vital Signs: 03/24/25 22:46 03/24/25 22:51 03/24/25 22:52 Temperature 97.8 F Temperature Source Oral Pulse Rate 60 59 L Pulse Rate [Radial] 60 Respiratory Rate 16 15 14 Blood Pressure 86/50 L 86/50 L Blood Pressure [Right Arm] 72/39 L Blood Pressure Mean Blood Pressure Mean [Right Arm] 50 Blood Pressure Position Supine Blood Pressure Position [Right Arm] Supine 02 Sat by Pulse Oximetry 99 100 99 Oxygen Delivery Method Room Air Room Air 03/24/25 22:54 03/24/25 23:00 03/24/25 23:01 Temperature Temperature Source Pulse Rate 60 59 L Pulse Rate [Radial] Respiratory Rate 17 12 Blood Pressure 79/42 L 81/46 L 81/46 L Blood Pressure [Right Arm] Blood Pressure Mean Blood Pressure Mean [Right Arm] Blood Pressure Position Blood Pressure Position [Right Arm] 02 Sat by Pulse Oximetry 100 Oxygen Delivery Method 03/24/25 23:09 03/24/25 23:10 03/24/25 23:15 Temperature Temperature Source Pulse Rate 56 L 56 L 57 L Pulse Rate [Radial] Respiratory Rate 21 20 26 H Blood Pressure 82/35 L 87/34 L 92/47 L Blood Pressure [Right Arm] Blood Pressure Mean Blood Pressure Mean [Right Arm] Blood Pressure Position Blood Pressure Position [Right Arm] 02 Sat by Pulse Oximetry 100 100 100 Oxygen Delivery Method 03/24/25 23:19 03/24/25 23:20 03/24/25 23:35 Temperature Temperature Source Pulse Rate 56 L 55 L 58 L Pulse Rate [Radial] Respiratory Rate 13 21 28 H Blood Pressure 105/52 L 100/54 L 128/59 L Blood Pressure [Right Arm] Blood Pressure Mean Blood Pressure Mean [Right Arm] Blood Pressure Position Blood Pressure Position [Right Arm] 02 Sat by Pulse Oximetry 100 100 100 Oxygen Delivery Method 03/24/25 23:38 03/24/25 23:40 03/24/25 23:45 Temperature Temperature Source Pulse Rate 58 L 58 L 57 L Pulse Rate [Radial] Respiratory Rate 21 20 19 Blood Pressure 140/67 133/64 138/68 Blood Pressure [Right Arm] Blood Pressure Mean Blood Pressure Mean [Right Arm] Blood Pressure Position Blood Pressure Position [Right Arm] 02 Sat by Pulse Oximetry 100 100 100 Oxygen Delivery Method 03/24/25 23:50 03/24/25 23:55 03/25/25 00:00 Temperature Temperature Source Pulse Rate 57 L 56 L 56 L Pulse Rate [Radial] Respiratory Rate 27 H 16 17 Blood Pressure 143/70 H 146/66 H 142/71 H Blood Pressure [Right Arm] Blood Pressure Mean Blood Pressure Mean [Right Arm] Blood Pressure Position Blood Pressure Position [Right Arm] 02 Sat by Pulse Oximetry 99 100 100 Oxygen Delivery Method 03/25/25 00:05 03/25/25 00:10 03/25/25 00:15 Temperature Temperature Source Pulse Rate 55 L 56 L 59 L Pulse Rate [Radial] Respiratory Rate 17 17 20 Blood Pressure 143/71 H 142/69 H 141/67 H Blood Pressure [Right Arm] Blood Pressure Mean Blood Pressure Mean [Right Arm] Blood Pressure Position Blood Pressure Position [Right Arm] 02 Sat by Pulse Oximetry 100 100 100 Oxygen Delivery Method 03/25/25 00:20 03/25/25 00:25 03/25/25 00:30 Temperature Temperature Source Pulse Rate 60 61 60 Pulse Rate [Radial] Respiratory Rate 19 16 21 Blood Pressure 141/69 H 146/71 H 143/67 H Blood Pressure [Right Arm] Blood Pressure Mean 93 96 92 Blood Pressure Mean [Right Arm] Blood Pressure Position Blood Pressure Position [Right Arm] 02 Sat by Pulse Oximetry 100 100 97 Oxygen Delivery Method 03/25/25 00:36 03/25/25 00:41 03/25/25 00:45 Temperature Temperature Source Pulse Rate 61 61 61 Pulse Rate [Radial] Respiratory Rate 24 15 13 Blood Pressure 133/52 L 130/43 L 123/54 L Blood Pressure [Right Arm] Blood Pressure Mean 79 72 77 Blood Pressure Mean [Right Arm] Blood Pressure Position Blood Pressure Position [Right Arm] 02 Sat by Pulse Oximetry 100 100 100 Oxygen Delivery Method 03/25/25 00:50 03/25/25 00:56 03/25/25 01:00 Temperature Temperature Source Pulse Rate 65 63 63 Pulse Rate [Radial] Respiratory Rate 16 15 20 Blood Pressure 144/108 H 117/46 L 122/55 L Blood Pressure [Right Arm] Blood Pressure Mean 120 69 77 Blood Pressure Mean [Right Arm] Blood Pressure Position Blood Pressure Position [Right Arm] 02 Sat by Pulse Oximetry 100 100 100 Oxygen Delivery Method 03/25/25 01:05 03/25/25 01:10 03/25/25 01:15 Temperature Temperature Source Pulse Rate 63 65 64 Pulse Rate [Radial] Respiratory Rate 20 15 16 Blood Pressure 120/52 L 120/50 L 127/54 L Blood Pressure [Right Arm] Blood Pressure Mean 74 73 63 Blood Pressure Mean [Right Arm] Blood Pressure Position Blood Pressure Position [Right Arm] 02 Sat by Pulse Oximetry 100 100 100 Oxygen Delivery Method 03/25/25 01:20 03/25/25 01:25 03/25/25 01:30 Temperature Temperature Source Pulse Rate 65 66 67 Pulse Rate [Radial] Respiratory Rate 15 16 17 Blood Pressure 117/53 L 118/53 L 121/63 Blood Pressure [Right Arm] Blood Pressure Mean 74 74 Blood Pressure Mean [Right Arm] Blood Pressure Position Blood Pressure Position [Right Arm] 02 Sat by Pulse Oximetry 100 100 100 Oxygen Delivery Method 03/25/25 01:35 03/25/25 01:40 03/25/25 01:45 Temperature Temperature Source Pulse Rate 67 65 65 Pulse Rate [Radial] Respiratory Rate 16 20 14 Blood Pressure 109/55 L 112/46 L 120/52 L Blood Pressure [Right Arm] Blood Pressure Mean 73 80 88 Blood Pressure Mean [Right Arm] Blood Pressure Position Blood Pressure Position [Right Arm] 02 Sat by Pulse Oximetry 100 100 100 Oxygen Delivery Method 03/25/25 01:50 03/25/25 01:55 03/25/25 02:01 Temperature Temperature Source Pulse Rate 65 65 66 Pulse Rate [Radial] Respiratory Rate 13 16 15 Blood Pressure 113/50 L 110/48 L 89/51 L Blood Pressure [Right Arm] Blood Pressure Mean 71 65 68 Blood Pressure Mean [Right Arm] Blood Pressure Position Blood Pressure Position [Right Arm] 02 Sat by Pulse Oximetry 100 100 100 Oxygen Delivery Method 03/25/25 02:05 03/25/25 02:10 Temperature Temperature Source Pulse Rate 67 67 Pulse Rate [Radial] Respiratory Rate 22 16 Blood Pressure 122/52 L 115/57 L Blood Pressure [Right Arm] Blood Pressure Mean 75 80 Blood Pressure Mean [Right Arm] Blood Pressure Position Blood Pressure Position [Right Arm] 02 Sat by Pulse Oximetry 100 100 Oxygen Delivery Method Lab Data Labs: Lab Results 03/24/25 22:37: WBC 6.0, RBC 1.63 L*, Hgb 4.7 L*, Hct 15.7 L*, MCV 96.3 H, MCH 28.8, MCHC 29.9 L, RDW 22.2 H, Plt Count 218, MPV 10.3, Neut % (Auto) 41.8, Lymph % (Auto) 46.8, [place] % (Auto) 8.4, Eos % (Auto) 1.2, Baso % (Auto) 0.3, Neut # (Auto) 2.5, Lymph # (Auto) 2.8, [place] # (Auto) 0.5, Eos # (Auto) 0.1, Baso # (Auto) 0.0, PT 15.6 H, INR 1.44 H, APTT 29.6, D-Dimer 1.45 H, Sodium 134 L, Potassium 3.7, Chloride 113 H, Carbon Dioxide 19 L, Anion Gap 5.7, BUN 31 H, Creatinine 0.70, Estimated Creat Clear 98, Estimated GFR 113, Est GFR ( Amer) 137, Glucose 84, Calcium 7.0 L, Total Bilirubin 0.6, AST 33, ALT 21, Alkaline Phosphatase 62, Troponin I 0.02, NT-Pro-B Natriuret Pep 1770 H, Total Protein 4.7 L D, Albumin 2.2 L, Globulin 2.5, Albumin/Globulin Ratio 0.9 L, Lipase 80, Blood Type Confirm O Positive 03/24/25 22:58: Blood Type O Positive, Antibody Screen Negative, Crossmatch (AHG) See Detail 03/25/25 00:34: Hgb 6.8 L* D, Hct 22.3 L 03/25/25 01:34: Troponin I 0.03 Response Orders (Tests/Meds): ED MEDICATIONS Generic Name Dose Route Start Last Admin Trade Name Freq PRN Reason Stop Dose Admin Sodium Chloride 250 mls @ 25 mls/hr 03/24/25 23:15 Sod Chlor 0.9% 250ml Bag IV 03/25/25 23:14 .Q10H KATHLEEN Discontinued Medications Generic Name Dose Route Start Last Admin Trade Name Freq PRN Reason Stop Dose Admin Iopamidol 80 ml 03/24/25 23:34 03/24/25 23:35 Iopamidol-370 (76%);100ml Bottle IV 03/24/25 23:35 80 ml ONCE ONE Administration Sodium Chloride 50 ml 03/24/25 23:34 03/24/25 23:35 0.9 % Sodium Chloride 50 Ml Vial IV 03/24/25 23:35 50 ml ONCE ONE Administration Sodium Chloride 10 ml 03/24/25 23:34 03/24/25 23:35 Sodium Chloride 0.9% 10ml Syr (Rad Only) IV 03/24/25 23:35 10 ml ONCE ONE Administration ORDERS Category Date Time Status Blood transfusion [Red Blood Cells] Stat BBK 03/24/25 22:58 Results Type and Screen Stat BBK 03/24/25 22:[address] angio abdomen pelvis Stat Cat Scan 03/24/25 22:[address] angio chest - dissection Stat Cat Scan 03/24/25 22:59 Completed CXR --portable [XR chest portable] Stat Exams 03/24/25 22:40 Completed BNP [NT Pro Brain Natriuretic Pep.] Stat Lab 03/24/25 22:37 Completed Complete Blood Count Auto Diff Stat Lab 03/24/25 22:37 Completed Comprehensive Metabolic Panel Stat Lab 03/24/25 22:37 Completed D-Dimer Stat Lab 03/24/25 22:37 Completed H/H [Hemoglobin and Hematocrit] Stat Lab 03/25/25 00:34 Completed Lipase Stat Lab 03/24/25 22:37 Completed Occult Blood,Stool Stat Lab 03/25/25 00:57 Ordered PT INR [Prothrombin Time INR] Stat Lab 03/24/25 22:37 Completed PTT [Activated Partial Thrombo Time] Stat Lab 03/24/25 22:37 Completed Trop I [Troponin I] Stat Lab 03/24/25 22: Completed Troponin I Q3H Lab 03/25/25 01:34 Completed Troponin I Q3H Lab 03/25/25 04:45 Ordered MDM Narrative Medical Decision Narrative: In summary, this patient is a 64-year-old male presenting to the Emergency Department for evaluation of chest tightness radiating down left arm, general weakness, fatigue. Differential diagnoses considered include but are not limited to ACS, dysrhythmia, PE, postoperative complication from recent CABG/aortic replacement, symptomatic anemia, pneumonia. Ruling out the most morbid conditions drove assessment. It should be noted patient's history includes CAD status post recent CABG, aortic valve replacement, tobacco dependence, hypertension, hyperlipidemia, COPD which likely are not at goal therapy. This complicates all aspects of care by increasing patient's risk for morbidity. I reviewed patient's past medical records and noted evaluations here and transfers to for CABG/aortic valve replacement as well as for the gluteal abscess and A-fib with RVR. I noted while at , his hemoglobin had been slowly trending downward, last 1 was around 7.6. On exam, the patient is lying in bed, pale, ill-appearing. He is alert and oriented x 4. He is hypotensive with systolics in the 70s, MAP in the 50s. He did receive nitroglycerin x 2 per EMS, unclear if this is the cause of hypotension. He is very pale. On recheck, blood pressure did not significantly improve with highest MAP that we got of 60 with a systolic in the 80s. Workup included broad lab evaluation to evaluate for infectious, metabolic, cardiac derangements as well as stat portable chest x-ray. EKGs were obtained that demonstrated nonspecific ST/T wave changes not significantly different from prior EKG. No acute STEMI.. I independently interpreted x-ray prior to the radiologist read and noted some haziness in the left lower lung, cannot exclude pleural effusion. Please see their read for final interpretation. Labs were obtained that demonstrated profound anemia with hemoglobin of 4.7. White count and platelet count normal. Chemistry demonstrates mild hyponatremia, hyperchloremia, mildly low CO2. Patient has mildly elevated BUN as well as mild hypocalcemia. He has albumin deficiency. Given hypotension with profound anemia, that could be related to the nitroglycerin he received, I elected to go ahead and treat him with emergent blood. IV fluid resuscitation had started with EMS with a small bolus of IV fluids, but I elected to discontinue this for fear of further dilutional effect on his hemoglobin. 2 units of emergent blood were ordered. At this time, patient care was signed out to the oncoming provider, Dr. Rinaldi, pending further workup. Rinaldi: Upon my assumption of care patient is still critically ill but I agree with the assessment and plan from Dr. Iglesias. Patient was significantly anemic as well as hypotensive and having symptoms of anemia. Hypotension may have been complicated by the fact patient received nitro from EMS prior to arrival as well. Labs reviewed demonstrated hemoglobin 4.7, no leukocytosis, normal platelets, PT/INR somewhat elevated but nonactionable, D-dimer is elevated at 1.45. CT angiography of the chest has already been ordered, it is not specifically a PE scan because I have higher concerns for intrathoracic or intra-abdominal bleeding especially since patient is on Eliquis which should be preventative against PE. Chemistry labs demonstrate prerenal azotemia likely due to low hemoglobin. BNP elevated at 1770. Initial troponin 0.02. Improved from prior. After patient received blood, his vitals have steadily improved. He is no longer hypotensive, no longer short of breath. He feels well. Repeat H&H after 2 units of blood shows hemoglobin 6.8. I personally interpreted CT angiography of the chest, abdomen, pelvis and do not appreciate active extravasation or obvious fluid collection, see radiology reads for full interpretations. Patient has extensive multivessel disease. Patient remains anemic but I do not want to the volume overload him given his weak heart and history of volume overload. I do not yet have a source of bleeding. Hemoccult pending though I have very low suspicion for GI bleed since patient reports no melena or diarrhea. Patient has not had any additional chest pain in the ER. I believe patient requires transfer to higher level of care for continued management. Since he received his surgery at , will reach out to them. I spoke with Dr. Roberson and reviewed this patient's case. She graciously accepted the patient for ER to ER transferred to [facility]. Patient and family agreeable to this plan. Patient transferred by ALS ambulance in stable condition.
[2025-03-24 23:14] LABS: Anion Gap 5.7 mEq/L (5-15); Potassium 3.7 mmoL/L (3.5-5.1)
[2025-03-24 23:20] LABS: Troponin I 0.02 ng/ml (0.00-0.034)
[2025-03-24 23:26] LABS: NT Pro Brain Natriuretic Pep. 1770 pg/mL (0-125)
[2025-03-24] MEDS: IOPAMIDOL-370 (76%);100ML BOTTLE 80 ML IV (23:35)
[2025-03-24] MEDS: SODIUM CHLORIDE 0.9% 10ML SYR (RAD ONLY) 10 ML IV (23:35)
[2025-03-24] MEDS: 0.9 % SODIUM CHLORIDE 50 ML VIAL IV (23:35)
[2025-03-24 23:37] LABS: Activated Partial Thrombo Time 29.6 seconds (22.8-30.6); INR 1.44 (0.9-1.1); Prothrombin Time 15.6 seconds (10.1-12.5)
--- NOTE | 2025-03-24 23:43 | PC.NURSE ---
[address] scan with solar electric installer and this rn
--- NOTE | 2025-03-24 23:43 | PC.NURSE ---
[address] without any incident. Pt AOx4, NAD noted, RR even and non labored, skin pale, warm and dry
[2025-03-24 23:46] LABS: D-Dimer 1.45 ug/mL (0.0-0.5)
[2025-03-25] VITALS (28 sets, daily range): BP systolic 89–146; BP diastolic 43–108; PULSE 55–67; RESP 13–24; TEMP 36.6; O2SAT 97–100
--- NOTE | 2025-03-25 | PC.NURSE ---
Addendum entered by Leatha Thorne RN 03/25/25 00:36: 1 hour post transfusion of the first unit: 0036: 143/67, 22, 100%, 56, 97.8 Original Note: Emergent Released blood Documentation Product unit number: [id number] Start time 03/24/252306 pm Stop Time: 03/24/252335 pm Volume infused: 500ml Vitals: BP, HR, RR, O2 sat, Temp Pre-transfusion(2305): 81/46, 23, 100%, 57, 98.6 Start(2306): 87/39, 16, 100%, 57, 98.6 5 min(2311): 92/47, 20, 100%, 57, 98.6 10 min(2316): 105/52, 14, 100%, 56, 98.1 15 min(2321): 100/54, 20, 100%, 55, 98.1 Completion(2335): 128/59, 23, 100%, 57, 97.6
--- NOTE | 2025-03-25 00:12 | PC.NURSE ---
Addendum entered by Leatha Thorne RN 03/25/25 01:15: 1 hour post completion: 5: 122/55, 18, 100%, 63, 98 Original Note: Emergent Released blood Documentation Product unit number: [id number] Start time 03/24/252339 pm Stop Time: 03/24/252354 pm Volume infused: 500ml Vitals: BP, HR, RR, O2 sat, Temp Pre-transfusion(2337): 140/67, 20, 100%, 57, 97.6 Start(2339): 133/64, 20, 100%, 58, 97.6 5 min(2344): 138/68, 18, 100%, 57, 98 10 min(2349): 143/70, 18, 100%, 58, 98 15 min(2354): 146/66, 18, 98%, 57, 97.7 Completion(2354): 146/66, 18, 98%, 57, 97.7
--- NOTE | 2025-03-25 00:30 | PC.NURSE ---
called for patient transfer. said they would call [facility], called radiology to [facility]
--- NOTE | 2025-03-25 00:36 | PC.NURSE ---
repeat H&H drawn and sent to the lab at this time.
[2025-03-25 00:45] LABS: Hematocrit 22.3 % (42.0-52.0)
[2025-03-25 00:53] LABS: Hemoglobin 6.8 g/dL (14.1-18.0)
--- NOTE | 2025-03-25 00:53 | PC.NURSE ---
reported critical hemoglobin 6.8 to MD Rinaldi.
--- NOTE | 2025-03-25 01:14 | PC.NURSE ---
report to Alesia DOMINGUEZ at ER
[2025-03-25 01:59] LABS: Troponin I 0.03 ng/ml (0.00-0.034)
== END 2025-03-25 02:32 | disposition short-term general hospital (02) ==
PROVIDERS: Emergency Medicine; Emergency Provider Emergency Medicine
DX: I95.9 Hypotension, unspecified (principal); D64.9 Anemia, unspecified; R39.2 Extrarenal uremia; R07.89 Other chest pain; J44.9 Chronic obstructive pulmonary disease, unspecified; I50.9 Heart failure, unspecified; I11.0 Hypertensive heart disease with heart failure; Z95.1 Presence of aortocoronary bypass graft; Z87.891 Personal history of nicotine dependence
CPT/HCPCS: 71045; 71275; 74174; 80053; 83690; 83880; 84484; 85014; 85018; 85025; 85378; 85610; 85730; 86850; 93005; 99291; P9016; Q9967

== ENCOUNTER 2025-04-08 14:25 | Outpatient (CLI) | payer MEDICARE, OTHER, SELFPAY ==
[2025-04-08 18:13] LABS: Basophils % 0.6 % (0.1-2.0); Eosinophils # 0.4 Kmm3 (0.0-0.4); Eosinophils % 5.7 % (0.1-12.0); Immature Granulocytes # 0.02 10^3uL; Immature Granulocytes % 0.3 %; Lymphocytes # 2.8 K/mm3 (0.7-4.5); Lymphocytes % 43.8 % (10-50); Mean Corpuscular HGB Conc 29.5 g/dL (31.8-35.4); Mean Corpuscular Hemoglobin 27.7 pg (27.0-31.2); Mean Corpuscular Volume 94.1 fl (80-94); Mean Platelet Volume 10.2 fl (7.4-10.4); Monocytes # 0.5 K/mm3 (0.1-1.0); Monocytes % 8.4 % (1.7-9.3); Neutrophils # 2.6 K/mm3 (1.8-7.8); Neutrophils % 41.2 % (37.0-80.0); Nucleated Red Blood Cells # 0 10^3/uL; Nucleated Red Blood Cells % 0 %; Platelet Count 275 K/mm3 (142-424); Red Cell Distribution Width 17.6 % (11.5-17.5); White Blood Count 6.3 K/mm3 (4.8-10.8)
[2025-04-08 18:23] LABS: Hematocrit 20.7 % (42.0-52.0); Hemoglobin 6.1 g/dL (14.1-18.0); Iron 22 ug/dL (49-181)
[2025-04-08 18:33] LABS: Total Iron Binding Capacity 328 ug/dL (261-462)
[2025-04-08 18:58] LABS: Ferritin 64.9 ng/ml (17.9-464)
== END 2025-04-08 23:59 | disposition home or self-care (01) ==
LOC: LAB.DROPOF 04-09 12:14
PROVIDERS: PCP Nurse Practitioner Family; Visit Provider Nurse Practitioner Family
DX: D64.9 Anemia, unspecified (principal); R53.83 Other fatigue
CPT/HCPCS: 82728; 83540; 83550; 85025

== ENCOUNTER 2025-04-08 20:27 | Emergency (ER) | payer MEDICARE, OTHER, SELFPAY ==
[2025-04-08] VITALS (9 sets, daily range): BP systolic 122–147; BP diastolic 48–69; PULSE 68–78; RESP 16–20; TEMP 36.7–37.1; O2SAT 98–100
[2025-04-08 21:22] LABS: Basophils # 0.1 K/mm3 (0-0.2); Basophils % 0.8 % (0.1-2.0); Eosinophils # 0.3 Kmm3 (0.0-0.4); Eosinophils % 5.2 % (0.1-12.0); Immature Granulocytes # 0.02 10^3uL; Immature Granulocytes % 0.3 %; Lymphocytes # 2.5 K/mm3 (0.7-4.5); Lymphocytes % 40.4 % (10-50); Mean Corpuscular HGB Conc 30.4 g/dL (31.8-35.4); Mean Corpuscular Volume 92.3 fl (80-94); Mean Platelet Volume 10.3 fl (7.4-10.4); Monocytes # 0.5 K/mm3 (0.1-1.0); Monocytes % 8.1 % (1.7-9.3); Neutrophils # 2.8 K/mm3 (1.8-7.8); Neutrophils % 45.2 % (37.0-80.0); Nucleated Red Blood Cells # 0 10^3/uL; Nucleated Red Blood Cells % 0 %; Platelet Count 266 K/mm3 (142-424); Red Blood Count 2.07 M/mm3 (4.60-6.20); Red Cell Distribution Width 17.8 % (11.5-17.5); Red Cell Distribution Width-SD 60.3 fL; White Blood Count 6.2 K/mm3 (4.8-10.8)
[2025-04-08 21:24] LABS: Chloride 108 mmol/L (98-107); Potassium 3.8 mmoL/L (3.5-5.1); Sodium 137 mmol/L (136-145)
[2025-04-08 21:27] LABS: Alanine Aminotransferase 18 U/L (12-78); Albumin/Globulin Ratio 1.2 (1.1-1.8); Alkaline Phosphatase 104 U/L (38-126); Anion Gap 6.8 mEq/L (5-15); Aspartate Amino Transferase 34 U/L (17-59); Bilirubin,Total 0.3 mg/dl (0.2-1.3); Blood Urea Nitrogen 21 mg/dl (9-20); Calcium 7.7 mg/dl (8.4-10.2); Carbon Dioxide 26 mmol/L (22.0-30.0); Creatinine Clearance Estimated 10 mL/min (50-200); Estimated Glomerular Filt Rate 97 ml/min (>60); GFR (African American) 117 ML/MIN (>60); Globulin 2.5 g/dL (1.3-3.2); Glucose 119 mg/dl (74-100); Hematocrit 19.1 % (42.0-52.0); Hemoglobin 5.8 g/dL (14.1-18.0); Total Protein,Serum 5.5 g/dl (6.3-8.2)
--- NOTE | 2025-04-08 21:47 | ED_ITS ---
Discharge Plan Disposition Patient Disposition: Left Against Medical Advice Prescriptions Prescriptions: No Action sennosides 8.6 mg tablet 17.2 mg PO HS PRN acetaminophen 325 mg tablet 650 mg PO Q6H PRN pantoprazole 40 mg tablet,delayed release (DR/EC) 40 mg PO BID oxycodone 5 mg tablet 5 mg PO Q6H PRN amiodarone 200 mg tablet 200 mg PO DAILY sucralfate 100 mg/mL suspension 1 g PO DAILY PRN metoprolol tartrate 50 mg tablet 75 mg PO BID Spiriva Respimat 2.5 mcg/actuation mist 2 puff inhalation BID aspirin [Aspir-81] 81 mg Tablet,Delayed Release (Dr/Ec) 81 mg PO DAILY atorvastatin 80 mg Tablet 80 mg PO HS Eliquis 5 mg tablet 5 mg PO BID Referrals Follow up/Referrals: Kiera Castro APRN [Primary Care Provider, [facility]] - See instructions Referral Note: Patient left ER AMA after receiving 1U PRBC. H/H resulted after patient left and was still only 6.7. I called the patient and recommended he return to the ER but he refuses. He states he is planning to see you first thing in the morning 04/09/25. Please see my note for further details. Clinical Impressions Clinical Impression: Anemia, Left against medical advice, GI bleed Print Language Print Language: Maltese Discharge ED Provider: Master Walsh General Adult HPI <Pham Dean APRN - Last Filed: 04/08/25 21:59> General Chief complaint: Recheck/Abnormal Lab/Rx Stated complaint: sent by Dr. Kiera Castro Time Seen by Provider: 04/08/25 20:43 Mode of Arrival: Ambulatory Source of Information: Patient Description of Symptoms (Recalled from ER Triage Doc. by RN): patient states he had lab work done today and got a call to come to the hospital for a blood transfusion. History of Present Illness HPI narrative: Faye Nelson is a 64-year-old male who presents to the emergency room after being advised by his primary care physician to come get a blood transfusion. Patient had some routine lab work today to follow-up on his hemoglobin and hematocrit, hemoglobin is noted to be 6.1. He has no complaints at this time, no chest pain, fever, cough, abdominal pain, bowel bladder function. Denies any bleeding from anywhere. Does have a wound from what looks like a pilonidal cyst that he has packing in. Wound appears healthy, no signs of infection noted from it. No complaints at this time. Please note that the above description of symptoms, and this electronic medical record under categorization of recalled from ER triage doctor by RN are reflective of an initial nursing assessment, however, is not reflective of my full history and physical exam that was personally taken and clarified. Consequentially, this proceeding description of symptoms, which may include the patient's cauterized chief complaint in the EMR, do not reflect my personal clinical impression, and the ultimate description of the history of present illness stated complaints should be deferred to this section of this note. Unless stated otherwise were congruent with the section of the note, additional signs, symptoms, or incongruence can be interpreted as in or accurate with my clinical impression. Related Data Home Medications ?Medication ?Instructions ?Recorded ?Confirmed aspirin 81 mg tablet,delayed 81 mg PO DAILY 03/12/25 0 04/08/25 release atorvastatin 80 mg tablet 80 mg PO HS 03/12/25 5 acetaminophen 325 mg tablet 650 mg PO Q6H PRN 04/08/25 04/08/25 amiodarone 200 mg tablet 200 mg PO DAILY 04/08/25 apixaban 5 mg tablet (Eliquis) 5 mg PO BID 04/08/25 metoprolol tartrate 50 mg tablet 75 mg PO BID 04/08/25 04/08/25 oxycodone 5 mg tablet 5 mg PO Q6H PRN 04/08/25 pantoprazole 40 mg tablet,delayed 40 mg PO BID 04/08/25 release sennosides 8.6 mg tablet 17.2 mg PO HS PRN 04/08/25 0 04/08/25 sucralfate 100 mg/mL oral 1 g PO DAILY PRN 04/08/25 suspension tiotropium bromide 2.5 2 puff inhalation BID 04/08/25 mcg/actuation mist for inhalation (Spiriva Respimat) Allergies Allergy/AdvReac Type Severity Reaction Status Date / Time No Known Allergies Allergy Verified 04/08/25 13:43 PFSH <Pham Dean, [facility] - Last Filed: 04/08/25 21:59> [facility] Disclaimer: The information contained in this section may have been updated after the patient was seen, as this information can be updated by other users. 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 (Updated 04/09/25 @ 02:45 by Bianca Rinaldi MD) History of left heart catheterization COPD (chronic obstructive pulmonary disease) Screening for malignant neoplasm of colon Encounter for screening for abdominal aortic aneurysm (AAA) in patient 50 years of age or older with history of smoking Encounter for prostate cancer screening Exposure to hepatitis C Encounter for screening for diabetes mellitus Encounter for screening examination for sexually transmitted disease Neck pain Thoracic back pain Bronchitis Need for RSV immunization Left flank pain Left sided abdominal pain Cervical radiculopathy Acute viral syndrome Pharyngitis Generalized body aches Sinusitis Scalp irritation Fatigue Eustachian tube dysfunction Cervical radiculopathy Bilateral arm pain Bilateral shoulder pain Neck pain Occult blood in stools Angina at rest Shoulder pain Neck pain Abdominal pain Nerve damage Chest pain Hypertension Exposure to COVID-19 virus Corneal abrasion Amputation of finger tip Urethral colic due to calculus Renal colic on right side Surgical History (Updated 04/08/25 @ 14:02 by Caroline Hernandes CMA) H/O removal of cyst Hx of CABG Hx of inguinal hernia repair History of shoulder surgery History of neck surgery History of knee surgery Family History Other No significant family 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 (Updated 04/08/25 @ 14:03 by Caroline Hernandes CMA) Smoking Status: Former smoker tobacco type: cigarettes packs per day: 1 quit status: has quit before alcohol intake: never substance use type: denies use current occupational status: retired and disabled Travel in the last 8 weeks?: None adopted: No caregiver/support person: No foster care: No household members: friend(s) housing: apartment lives independently: Yes marital status: single number of children: 3 number of grandchildren: 7 service: Yes (discharged 1985) 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 intermediate: No Have you lived/traveled outside [place] in past 30 days?: No Contact w/someone who lives/traveled outside US past 30 days?: No Exposure to someone with infectious disease in past 14 days?: No Do you have a fever (greater than 100.4 F or 38 C)?: No Have you tested positive for COVID-19?: No Exposed to someone with COVID-19 in past 14 days?: No Do you have a sore throat?: No Do you have a cough?: No Do you have any weakness?: No Do you have any diarrhea?: No Are you experiencing any unusual bleeding?: No Do you have any muscle aches/pain?: No Do you have any abdominal pain?: No Are you experiencing loss of taste or smell?: No Other 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 Have you received the Flu Vaccine for this season: No Have you received the Pneumonia Vaccine: Yes <Pham Dean, [facility] - Last Filed: 04/08/25 21:59> ROS Obtained: Yes Systems reviewed as appropriate & no additional complaints except as documented Physical Exam <Pham Dean [facility] - Last Filed: 04/08/25 21:59> General General appearance: alert and in no apparent distress Head Head exam: atraumatic and normocephalic Eye Eye exam: Present PERRL and EOMI Chest Chest inspection: Present symmetric chest wall rise Respiratory Respiratory exam: Present normal lung sounds bilaterally Cardiovascular Cardiovascular exam: Present regular rate and normal rhythm Abdominal Exam Abdominal exam: Present soft and normal bowel sounds; Absent tenderness Extremities Exam Extremities exam: Present full ROM Back Exam Back 1 view image: 2 1. Looks like a pilonidal cyst that has been removed, packing noted in the wound, wound tissue is pink, without signs of infection, Neurological Exam Neurological exam: Present alert and oriented X3 Skin Skin exam: Present warm, dry and intact Medical Decision Making <Pham Dena, [facility] - Last Filed: 04/08/25 21:59> Medical Records Screening: Per USPSTF and CDC recommendations, given the prevalence of disease in our region, it is our hospital?s policy to screen for HIV and viral Hepatitis for all patients aged 18 and over and those with ongoing risk factors. Kalpesh Inquiry Pt receiving controlled substance: No Vital Signs: 04/08/25 20:54 04/08/25 20:57 04/08/25 22:40 Temperature 98.1 F 98.1 F 98.7 F Temperature Source Oral Oral Oral Pulse Rate 70 Pulse Rate [Left] 78 68 Respiratory Rate 20 20 16 TAR Vitals Timing Pre-Blood Vitals Blood Pressure 123/61 Blood Pressure [Right Arm] 135/48 L 134/66 Blood Pressure Mean 81 Blood Pressure Mean [Right Arm] 77 88 Blood Pressure Source Automatic Cuff Blood Pressure Source [Right Arm] Automatic Cuff Automatic Cuff Blood Pressure Position Supine Blood Pressure Position [Right Arm] Sitting Sitting 02 Sat by Pulse Oximetry 98 98 99 Oxygen Delivery Method Room Air Room Air 04/08/25 22:45 04/08/25 22:50 04/08/25 22:55 Temperature 98.7 F 98.7 F 98.6 F Temperature Source Oral Oral Oral Pulse Rate 70 71 69 Pulse Rate [Left] Respiratory Rate 16 16 16 TAR Vitals Timing Start Vitals 5 Minute 10 Minute Blood Pressure 125/57 L 126/56 L 122/64 Blood Pressure [Right Arm] Blood Pressure Mean 79 79 83 Blood Pressure Mean [Right Arm] Blood Pressure Source Automatic Cuff Automatic Cuff Automatic Cuff Blood Pressure Source [Right Arm] Blood Pressure Position Supine Sitting Supine Blood Pressure Position [Right Arm] 02 Sat by Pulse Oximetry 99 99 100 Oxygen Delivery Method 04/08/25 23:00 04/08/25 23:30 04/08/25 23:45 Temperature 98.5 F 98.6 F 98.5 F Temperature Source Oral Oral Oral Pulse Rate 69 69 70 Pulse Rate [Left] Respiratory Rate 16 16 16 TAR Vitals Timing 15 Minute 30 Minute 45 Minute Blood Pressure 126/54 L 147/68 H 134/69 Blood Pressure [Right Arm] Blood Pressure Mean 78 94 90 Blood Pressure Mean [Right Arm] Blood Pressure Source Automatic Cuff Automatic Cuff Automatic Cuff Blood Pressure Source [Right Arm] Blood Pressure Position Supine Supine Supine Blood Pressure Position [Right Arm] 02 Sat by Pulse Oximetry 100 99 100 Oxygen Delivery Method 04/09/25 00:00 04/09/25 01:00 Temperature 98.6 F 98.6 F Temperature Source Oral Oral Pulse Rate 68 74 Pulse Rate [Left] Respiratory Rate 16 16 TAR Vitals Timing 60 Minute 2nd Hour Blood Pressure 136/57 L 144/56 H Blood Pressure [Right Arm] Blood Pressure Mean 83 85 Blood Pressure Mean [Right Arm] Blood Pressure Source Automatic Cuff Automatic Cuff Blood Pressure Source [Right Arm] Blood Pressure Position Supine Supine Blood Pressure Position [Right Arm] 02 Sat by Pulse Oximetry 99 99 Oxygen Delivery Method Lab Data Lab Results 04/08/25 21:00: WBC 6.2, RBC 2.07 L, Hgb 5.8 L*, Hct 19.1 L*, MCV 92.3, MCH 28.0, MCHC 30.4 L, RDW 17.8 H, Plt Count 266, MPV 10.3, Neut % (Auto) 45.2, Lymph % (Auto) 40.4, [place] % (Auto) 8.1, Eos % (Auto) 5.2, Baso % (Auto) 0.8, Neut # (Auto) 2.8, Lymph # (Auto) 2.5, [place] # (Auto) 0.5, Eos # (Auto) 0.3, Baso # (Auto) 0.1, Sodium 137, Potassium 3.8, Chloride 108 H, Carbon Dioxide 26, Anion Gap 6.8, BUN 21 H, Creatinine 0.80, Estimated Creat Clear 10, Estimated GFR 97, Est GFR ( Amer) 117, Glucose 119 H, Calcium 7.7 L, Total Bilirubin 0.3, AST 34, ALT 18, Alkaline Phosphatase 104, Total Protein 5.5 L, A lbumin 3.0 L, Globulin 2.5, Albumin/Globulin Ratio 1.2 04/08/25 21:31: Blood Type O Positive, Antibody Screen Negative, Crossmatch (AHG) See Detail 04/09/25 01:10: Stool Occult Blood Positive A 04/08/25 21:00 04/08/25 21:00 Orders (Tests/Meds): ED MEDICATIONS Generic Name Dose Route Start Last Admin Trade Name Freq PRN Reason Stop Dose Admin Sodium Chloride 250 mls @ 25 mls/hr 04/08/25 22:00 04/08/25 22:40 Sod Chlor 0.9% 250ml Bag IV 04/09/25 21:59 25 mls/hr .Q10H KATHLEEN Administration ORDERS Category Date Time Status Blood transfusion [Red Blood Cells] Stat BBK 04/08/25 21:31 Completed Type and Screen Stat BBK 04/08/25 21:31 Completed CBC w/Auto Diff [Complete Blood Count Auto Diff] Stat Lab 04/08/25 21:00 Completed CMP [Comprehensive Metabolic Panel] Stat Lab 04/08/25 21:00 Completed H/H [Hemoglobin and Hematocrit] Stat Lab 04/08/25 23:47 Ordered Occult Blood,Stool Stat Lab 04/09/25 01:10 Completed Medical Decision Narrative: In summary patient is an 64-year-old male who presents emergency department for evaluation of low hemoglobin sent by his primary care physician. Patient has no complaints at this time. Is hoping that we can just do a blood transfusion and he can go back home. Denies any fever, cough, chest pain, shortness of breath. Patient is hemodynamically stable upon arrival, afebrile. Patient had a CABG and aortic valve replaced on February 21 of this year, did have a I&D of an abscess at on 03/12. Stay was complicated by A-fib with RVR with cardioversion at . Patient has had issues with symptomatic anemia over the last 6 to 8 weeks following his CABG. Has had to have 2 units of PRBCs during his last stay at . Unremarkable physical exam except for the wound in his gluteal cleft from what looks like a pilonidal cyst removal, wound bed is pink, without signs of infection, does have packing in it. Differential diagnosis includes symptomatic anemia, GI bleed. Initial workup will be conducted with hematologic labs, type and screen. Initial interventions include likely will need a blood transfusion x 1 unit PRBCs. Care was discussed and turned over to attending physician at approximately 10 PM. <Master Walsh MD - Last Filed: 04/09/25 00:10> Vital Signs: 04/08/25 20:54 04/08/25 20:57 04/08/25 22:40 Temperature 98.1 F 98.1 F 98.7 F Temperature Source Oral Oral Oral Pulse Rate 70 Pulse Rate [Left] 78 68 Respiratory Rate 20 20 16 TAR Vitals Timing Pre-Blood Vitals Blood Pressure 123/61 Blood Pressure [Right Arm] 135/48 L 134/66 Blood Pressure Mean 81 Blood Pressure Mean [Right Arm] 77 88 Blood Pressure Source Automatic Cuff Blood Pressure Source [Right Arm] Automatic Cuff Automatic Cuff Blood Pressure Position Supine Blood Pressure Position [Right Arm] Sitting Sitting 02 Sat by Pulse Oximetry 98 98 99 Oxygen Delivery Method Room Air Room Air 04/08/25 22:45 04/08/25 22:50 04/08/25 22:55 Temperature 98.7 F 98.7 F 98.6 F Temperature Source Oral Oral Oral Pulse Rate 70 71 69 Pulse Rate [Left] Respiratory Rate 16 16 16 TAR Vitals Timing Start Vitals 5 Minute 10 Minute Blood Pressure 125/57 L 126/56 L 122/64 Blood Pressure [Right Arm] Blood Pressure Mean 79 79 83 Blood Pressure Mean [Right Arm] Blood Pressure Source Automatic Cuff Automatic Cuff Automatic Cuff Blood Pressure Source [Right Arm] Blood Pressure Position Supine Sitting Supine Blood Pressure Position [Right Arm] 02 Sat by Pulse Oximetry 99 99 100 Oxygen Delivery Method 04/08/25 23:00 04/08/25 23:30 04/08/25 23:45 Temperature 98.5 F 98.6 F 98.5 F Temperature Source Oral Oral Oral Pulse Rate 69 69 70 Pulse Rate [Left] Respiratory Rate 16 16 16 TAR Vitals Timing 15 Minute 30 Minute 45 Minute Blood Pressure 126/54 L 147/68 H 134/69 Blood Pressure [Right Arm] Blood Pressure Mean 78 94 90 Blood Pressure Mean [Right Arm] Blood Pressure Source Automatic Cuff Automatic Cuff Automatic Cuff Blood Pressure Source [Right Arm] Blood Pressure Position Supine Supine Supine Blood Pressure Position [Right Arm] 02 Sat by Pulse Oximetry 100 99 100 Oxygen Delivery Method 04/09/25 00:00 04/09/25 01:00 Temperature 98.6 F 98.6 F Temperature Source Oral Oral Pulse Rate 68 74 Pulse Rate [Left] Respiratory Rate 16 16 TAR Vitals Timing 60 Minute 2nd Hour Blood Pressure 136/57 L 144/56 H Blood Pressure [Right Arm] Blood Pressure Mean 83 85 Blood Pressure Mean [Right Arm] Blood Pressure Source Automatic Cuff Automatic Cuff Blood Pressure Source [Right Arm] Blood Pressure Position Supine Supine Blood Pressure Position [Right Arm] 02 Sat by Pulse Oximetry 99 99 Oxygen Delivery Method Lab Data Lab Results 04/08/25 21:00: WBC 6.2, RBC 2.07 L, Hgb 5.8 L*, Hct 19.1 L*, MCV 92.3, MCH 28.0, MCHC 30.4 L, RDW 17.8 H, Plt Count 266, MPV 10.3, Neut % (Auto) 45.2, Lymph % (Auto) 40.4, [place] % (Auto) 8.1, Eos % (Auto) 5.2, Baso % (Auto) 0.8, Neut # (Auto) 2.8, Lymph # (Auto) 2.5, [place] # (Auto) 0.5, Eos # (Auto) 0.3, Baso # (Auto) 0.1, Sodium 137, Potassium 3.8, Chloride 108 H, Carbon Dioxide 26, Anion Gap 6.8, BUN 21 H, Creatinine 0.80, Estimated Creat Clear 10, Estimated GFR 97, Est GFR ( Amer) 117, Glucose 119 H, Calcium 7.7 L, Total Bilirubin 0.3, AST 34, ALT 18, Alkaline Phosphatase 104, Total Protein 5.5 L, A lbumin 3.0 L, Globulin 2.5, Albumin/Globulin Ratio 1.2 04/08/25 21:31: Blood Type O Positive, Antibody Screen Negative, Crossmatch (AHG) See Detail 04/09/25 01:10: Stool Occult Blood Positive A Orders (Tests/Meds): ED MEDICATIONS Generic Name Dose Route Start Last Admin Trade Name Freq PRN Reason Stop Dose Admin Sodium Chloride 250 mls @ 25 mls/hr 04/08/25 22:00 04/08/25 22:40 Sod Chlor 0.9% 250ml Bag IV 04/09/25 21:59 25 mls/hr .Q10H KATHLEEN Administration ORDERS Category Date Time Status Blood transfusion [Red Blood Cells] Stat BBK 04/08/25 21:31 Completed Type and Screen Stat BBK 04/08/25 21:31 Completed CBC w/Auto Diff [Complete Blood Count Auto Diff] Stat Lab 04/08/25 21:00 Completed CMP [Comprehensive Metabolic Panel] Stat Lab 04/08/25 21:00 Completed H/H [Hemoglobin and Hematocrit] Stat Lab 04/08/25 23:47 Ordered Occult Blood,Stool Stat Lab 04/09/25 01:10 Completed Medical Decision Narrative: In summary patient is an 64-year-old male who presents emergency department for evaluation of low hemoglobin sent by his primary care physician. Patient has no complaints at this time. Is hoping that we can just do a blood transfusion and he can go back home. Denies any fever, cough, chest pain, shortness of breath. Patient is hemodynamically stable upon arrival, afebrile. Patient had a CABG and aortic valve replaced on February 21 of this year, did have a I&D of an abscess at on 03/12. Stay was complicated by A-fib with RVR with cardioversion at . Patient has had issues with symptomatic anemia over the last 6 to 8 weeks following his CABG. Has had to have 2 units of PRBCs during his last stay at . Unremarkable physical exam except for the wound in his gluteal cleft from what looks like a pilonidal cyst removal, wound bed is pink, without signs of infection, does have packing in it. Differential diagnosis includes symptomatic anemia, GI bleed. Initial workup will be conducted with hematologic labs, type and screen. Initial interventions include likely will need a blood transfusion x 1 unit PRBCs. Care was discussed and turned over to attending physician at approximately 10 PM. HECTOR attestation I was consulted by the HECTOR, and we discussed the complexity of problems being addressed. I approved the treatment and management plan for this patient's care in the emergency department, thus performing a substantial portion of the medical decision making. At the time of shift change, patient's blood transfusion and repeat CBC was pending. Care handed off to Dr. Rinaldi at approximately 11:30 PM. See below for patient's ultimate disposition. Master Walsh MD <Bianca Rinaldi MD - Last Filed: 04/09/25 02:45> Medical Records Medical records reviewed: Yes I reviewed the patient's medical records. MR Comment: Review of previous records demonstrates patient had CABG and aortic valve replacement in February of this year. He is struggled with blood counts since that time. He was transferred to after his most recent visit to our ER in the middle of March. Records from demonstrate patient had EGD while admitted showing duodenal ulcer and duodenitis. His DOAC was held in anticipation of recheck hemoglobin with his PCP which was performed today. The anticipation was that if his hemoglobin was stable (7.6 at the time of discharge from ), that he would be able to restart DOAC, however with his anemia finding today he was sent to our hospital for further evaluation from his PCP. Vital Signs: 04/08/25 20:54 04/08/25 20:57 04/08/25 22:40 Temperature 98.1 F 98.1 F 98.7 F Temperature Source Oral Oral Oral Pulse Rate 70 Pulse Rate [Left] 78 68 Respiratory Rate 20 20 16 TAR Vitals Timing Pre-Blood Vitals Blood Pressure 123/61 Blood Pressure [Right Arm] 135/48 L 134/66 Blood Pressure Mean 81 Blood Pressure Mean [Right Arm] 77 88 Blood Pressure Source Automatic Cuff Blood Pressure Source [Right Arm] Automatic Cuff Automatic Cuff Blood Pressure Position Supine Blood Pressure Position [Right Arm] Sitting Sitting 02 Sat by Pulse Oximetry 98 98 99 Oxygen Delivery Method Room Air Room Air 04/08/25 22:45 04/08/25 22:50 04/08/25 22:55 Temperature 98.7 F 98.7 F 98.6 F Temperature Source Oral Oral Oral Pulse Rate 70 71 69 Pulse Rate [Left] Respiratory Rate 16 16 16 TAR Vitals Timing Start Vitals 5 Minute 10 Minute Blood Pressure 125/57 L 126/56 L 122/64 Blood Pressure [Right Arm] Blood Pressure Mean 79 79 83 Blood Pressure Mean [Right Arm] Blood Pressure Source Automatic Cuff Automatic Cuff Automatic Cuff Blood Pressure Source [Right Arm] Blood Pressure Position Supine Sitting Supine Blood Pressure Position [Right Arm] 02 Sat by Pulse Oximetry 99 99 100 Oxygen Delivery Method 04/08/25 23:00 04/08/25 23:30 04/08/25 23:45 Temperature 98.5 F 98.6 F 98.5 F Temperature Source Oral Oral Oral Pulse Rate 69 69 70 Pulse Rate [Left] Respiratory Rate 16 16 16 TAR Vitals Timing 15 Minute 30 Minute 45 Minute Blood Pressure 126/54 L 147/68 H 134/69 Blood Pressure [Right Arm] Blood Pressure Mean 78 94 90 Blood Pressure Mean [Right Arm] Blood Pressure Source Automatic Cuff Automatic Cuff Automatic Cuff Blood Pressure Source [Right Arm] Blood Pressure Position Supine Supine Supine Blood Pressure Position [Right Arm] 02 Sat by Pulse Oximetry 100 99 100 Oxygen Delivery Method 04/09/25 00:00 04/09/25 01:00 Temperature 98.6 F 98.6 F Temperature Source Oral Oral Pulse Rate 68 74 Pulse Rate [Left] Respiratory Rate 16 16 TAR Vitals Timing 60 Minute 2nd Hour Blood Pressure 136/57 L 144/56 H Blood Pressure [Right Arm] Blood Pressure Mean 83 85 Blood Pressure Mean [Right Arm] Blood Pressure Source Automatic Cuff Automatic Cuff Blood Pressure Source [Right Arm] Blood Pressure Position Supine Supine Blood Pressure Position [Right Arm] 02 Sat by Pulse Oximetry 99 99 Oxygen Delivery Method Lab Data Lab Results 04/08/25 21:00: WBC 6.2, RBC 2.07 L, Hgb 5.8 L*, Hct 19.1 L*, MCV 92.3, MCH 28.0, MCHC 30.4 L, RDW 17.8 H, Plt Count 266, MPV 10.3, Neut % (Auto) 45.2, Lymph % (Auto) 40.4, [place] % (Auto) 8.1, Eos % (Auto) 5.2, Baso % (Auto) 0.8, Neut # (Auto) 2.8, Lymph # (Auto) 2.5, [place] # (Auto) 0.5, Eos # (Auto) 0.3, Baso # (Auto) 0.1, Sodium 137, Potassium 3.8, Chloride 108 H, Carbon Dioxide 26, Anion Gap 6.8, BUN 21 H, Creatinine 0.80, Estimated Creat Clear 10, Estimated GFR 97, Est GFR ( Amer) 117, Glucose 119 H, Calcium 7.7 L, Total Bilirubin 0.3, AST 34, ALT 18, Alkaline Phosphatase 104, Total Protein 5.5 L, A lbumin 3.0 L, Globulin 2.5, Albumin/Globulin Ratio 1.2 04/08/25 21:31: Blood Type O Positive, Antibody Screen Negative, Crossmatch (AHG) See Detail 04/09/25 01:10: Stool Occult Blood Positive A Orders (Tests/Meds): ED MEDICATIONS Generic Name Dose Route Start Last Admin Trade Name Freq PRN Reason Stop Dose Admin Sodium Chloride 250 mls @ 25 mls/hr 04/08/25 22:00 04/08/25 22:40 Sod Chlor 0.9% 250ml Bag IV 04/09/25 21:59 25 mls/hr .Q10H KATHLEEN Administration ORDERS Category Date Time Status Blood transfusion [Red Blood Cells] Stat BBK 04/08/25 21:31 Completed Type and Screen Stat BBK 04/08/25 21:31 Completed CBC w/Auto Diff [Complete Blood Count Auto Diff] Stat Lab 04/08/25 21:00 Completed CMP [Comprehensive Metabolic Panel] Stat Lab 04/08/25 21:00 Completed H/H [Hemoglobin and Hematocrit] Stat Lab 04/08/25 23:47 Ordered Occult Blood,Stool Stat Lab 04/09/25 01:10 Completed Medical Decision Narrative: In summary patient is an 64-year-old male who presents emergency department for evaluation of low hemoglobin sent by his primary care physician. Patient has no complaints at this time. Is hoping that we can just do a blood transfusion and he can go back home. Denies any fever, cough, chest pain, shortness of breath. Patient is hemodynamically stable upon arrival, afebrile. Patient had a CABG and aortic valve replaced on February 21 of this year, did have a I&D of an abscess at on 03/12. Stay was complicated by A-fib with RVR with cardioversion at . Patient has had issues with symptomatic anemia over the last 6 to 8 weeks following his CABG. Has had to have 2 units of PRBCs during his last stay at . Unremarkable physical exam except for the wound in his gluteal cleft from what looks like a pilonidal cyst removal, wound bed is pink, without signs of infection, does have packing in it. Differential diagnosis includes symptomatic anemia, GI bleed. Initial workup will be conducted with hematologic labs, type and screen. Initial interventions include likely will need a blood transfusion x 1 unit PRBCs. Care was discussed and turned over to attending physician at approximately 10 PM. HECTOR attestation I was consulted by the HECTOR, and we discussed the complexity of problems being addressed. I approved the treatment and management plan for this patient's care in the emergency department, thus performing a substantial portion of the medical decision making. At the time of shift change, patient's blood transfusion and repeat CBC was pending. Care handed off to Dr. Rinaldi at approximately 11:30 PM. See below for patient's ultimate disposition. Master Walsh MD Rinaldi: Upon my assumption of care patient is stable and resting comfortably, despite his anemia he is asymptomatic and having no hemodynamic compromise at this time. He reports to me that he is still having black stool. He reports his wound care from gluteal abscess is going well and that he had wound care change his dressing today. Patient is already receiving PRBC transfusion. I agree with the assessment and plan from Dr. Walsh. Will recheck H&H after transfusion is complete. Also ordered Hemoccult. With RN furnace fitter at bedside I performed rectal exam and Hemoccult was sent for testing. This resulted positive for blood in the stool. This explains the patient's continued steady blood loss over the last few weeks. He states he has been compliant with the medications that he was prescribed from to treat the ulcer in his intestines but knew he was still having some bleeding because of his stool color. He admits that his stool is not as dark as it was the last time he was here when he had to be transferred to . Patient reiterates to me while awaiting other lab results that he would prefer to go home and states he is able to follow-up with his PCP first thing in the morning since she told him she would be in the office at 8 AM. Patient's blood transfusion finished, he was becoming progressively more irritable and not wanting to wait for results of the H&H. He remains asymptomatic from his anemia. Vitals have been stable during and after transfusion. I explained to him that he is still having bleeding from his ulcer which is causing his blood loss. I recommended at the very least to wait for the results of the H&H but he states regardless of the results he is leaving. He wishes to sign out AGAINST MEDICAL ADVICE at this time without other results. He states he knows the risks and has signed out AMA before. Patient was able to explain back to me his condition and the risks of leaving up to and including wosening of condition, continued blood loss, severe life altering disability, or . Patient was able to provide reason for his decision and clearly express this decision. Patient has capacity to make this decision and left AGAINST MEDICAL ADVICE. ANGELICA Bryan at bedside for this discussion. Before patient left I reiterated to him the risks of this and that since he's leaving I even more strongly recommended that he see his PCP first thing in the morning to recheck his levels and that he follow up with GI as soon as possible to reassess his known ulcer. Patient had left the ER when his H/H resulted. Hgb 6.7, still concerningly low despite patient being asymptomatic when he left. I spoke to the patient by phone at 0241AM and explained this result to him. I recommended he return to the ER for further transfusion and admission to the hospital for continued GI bleed management and management of anemia. He reported that he would not be coming back to the hospital and that he is going to see his primary care doctor in the morning. I explained to him that if his hemoglobin is still low in the morning she will send him straight back to the hospital for more blood and potentially admission. He understands this but states he is not coming back to the ER tonight. I sent a note via the EHR to Kiera Castro regarding this. Critical Care <Pham Dean APRN - Last Filed: 04/08/25 21:59> Critical Care Time Critical Care Time: No <Bianca Rinaldi MD - Last Filed: 04/09/25 02:45> Critical Care Time Critical Care Time: Yes Attestation: On 04/08/25, the high probability of a clinically significant, sudden or life threatening deterioration of the following system(s) required my full and direct attention, intervention and personal management. The time I documented below is in addition to time spent performing reported procedures but includes the following listed in this critical care notation. Total Time Total Critical Care Time: 35
[2025-04-08] MEDS: 0.9 % SODIUM CHLORIDE 250 ML 25 ML IV (22:40)
[2025-04-09] VITALS: BP 136/57; PULSE 68; RESP 16; TEMP 37; O2SAT 99
[2025-04-09 01:00] VITALS: BP 144/56; PULSE 74; RESP 16; TEMP 37; O2SAT 99
--- NOTE | 2025-04-09 01:22 | PC.NURSE ---
Wound assessed by TRN and Dr. Rinaldi. Old, soiled dressing and packing removed. Cleansed with saline flush and dried with 4x4. Repacked with 1in Iodoform gauze and covered with abd pad, and secured with tape. Patient tolerated procedure well, and denies pain at this time.
[2025-04-09 01:24] LABS: Occult Blood,Stool Positive (Negative)
[2025-04-09 02:33] LABS: Hematocrit 21.6 % (42.0-52.0)
[2025-04-09 02:35] VITALS: BP 156/66; PULSE 78; RESP 16; TEMP 36.9; O2SAT 98
--- NOTE | 2025-04-09 02:35 | PC.NURSE ---
Nurse went in to check on patient and draw his H&H recheck. Patient stated that he wanted to be called with the results and be discharged and he did not want to be admitted. I explained to the patient that we would like to wait for his H&H results to result after his transfusion to see in his levels had improved. Patient stated that he did not feel any different now than he did before he came in. It was explained to the patient again that he could still have low H&H levels and the risks of leaving AMA. He stated he understood the risks and to bring him the paper to sign. At 0240 the lab called to report a critical hemoglobin of 6.7. Dr. Rinaldi called patient on the phone and spoke with him to let him know of these results to which he stated he was not coming back to the hospital he was going to his PCP in the morning.
[2025-04-09 02:39] LABS: Hemoglobin 6.7 g/dL (14.1-18.0)
== END 2025-04-09 02:35 | disposition left against medical advice (07) ==
PROVIDERS: Emergency Medicine; Nurse Practitioner Acute Care; Emergency Provider Student in an Organized Health Care Education/Training Program; PCP Nurse Practitioner Family
DX: D64.9 Anemia, unspecified (principal); K92.0 Hematemesis; Z53.21 Procedure and treatment not carried out due to patient leaving prior to being seen by health care provider; J44.9 Chronic obstructive pulmonary disease, unspecified; Z87.891 Personal history of nicotine dependence
CPT/HCPCS: 36430; 80053; 82272; 85014; 85018; 85025; 86850; 96360; 99284; G0328; J7050; P9016

== ENCOUNTER 2025-04-09 03:11 | Inpatient (IN) | payer MEDICARE, OTHER, SELFPAY ==
[2025-04-09] VITALS (19 sets, daily range): BP systolic 117–159; BP diastolic 47–85; PULSE 72–81; RESP 16–21; TEMP 36.6–37.2; O2SAT 97–100; BMI 29.0; BMI 30.9
--- NOTE | 2025-04-09 03:16 | HMH.EDGENADL ---
Discharge Plan Disposition Patient Disposition: Admitted Condition: Fair Clinical Impressions Clinical Impression: Anemia, GI bleed Discharge ED Provider: Bianca Rinaldi Adult HPI General Chief complaint: Recheck/Abnormal Lab/Rx Stated complaint: recheck per dr rinaldi Time Seen by Provider: 04/09/25 03:15 History of Present Illness HPI narrative: 64-year-old male presents back to the ER after leaving AGAINST MEDICAL ADVICE less than 1 hour ago. Patient had originally presented at the recommendation of his PCP for significant anemia. While in the ER earlier he received 1 unit of PRBCs and became irritable not wanting to stay in the ER or in the hospital and ended up signing out AGAINST MEDICAL ADVICE prior to the result of his H&H after transfusion. After the H&H resulted and was still significantly low with a hemoglobin of 6.7, I called the patient by phone and recommended he come back to the ER for transfusion and admission for continued management of GI bleed. Patient initially refused, but then approximately 20 minutes later called back and apologized for being hot headed and stated he was going to come back to the ER. He arrived back to the ER reporting he is prepared to receive the second unit of blood transfusion and to be admitted to the hospital for continued management. He is agreeable to all of this management at this time. He still is wearing his blood bank band on the wrist from when he left AGAINST MEDICAL ADVICE. He was only gone from the ER for approximately 40 to 50 minutes between visits. No new complaints or concerns. He reports no dizziness, lightheadedness, shortness of breath, palpitations, or other symptoms of anemia. He still reports dark stool. Related Data Home Medications ?Medication ?Instructions ?Recorded ?Confirmed aspirin 81 mg tablet,delayed 81 mg PO DAILY 03/12/25 04/08/25 release atorvastatin 80 mg tablet 80 mg PO HS 03/12/25 04/08/25 acetaminophen 325 mg tablet 650 mg PO Q6H PRN 04/08/25 04/08/25 amiodarone 200 mg tablet 200 mg PO DAILY 04/08/25 04/08/25 apixaban 5 mg tablet (Eliquis) 5 mg PO BID 04/08/25 04/08/25 metoprolol tartrate 50 mg tablet 75 mg PO BID 04/08/25 04/08/25 oxycodone 5 mg tablet 5 mg PO Q6H PRN 04/08/25 04/08/25 pantoprazole 40 mg tablet,delayed 40 mg PO BID 04/08/25 04/08/25 release sennosides 8.6 mg tablet 17.2 mg PO HS PRN 04/08/25 04/08/25 sucralfate 100 mg/mL oral 1 g PO DAILY PRN 04/08/25 04/08/25 suspension tiotropium bromide 2.5 2 puff inhalation BID 04/08/25 04/08/25 mcg/actuation mist for inhalation (Spiriva Respimat) Allergies Allergy/AdvReac Type Severity Reaction Status Date / Time No Known Allergies Allergy Verified 04/08/25 13:43 [facility] Disclaimer: The information contained in this section may have been updated after the patient was seen, as this information can be updated by other users. 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 (Updated 04/09/25 @ 03:16 by Bianca Rinaldi MD) History of left heart catheterization COPD (chronic obstructive pulmonary disease) Screening for malignant neoplasm of colon Encounter for screening for abdominal aortic aneurysm (AAA) in patient 50 years of age or older with history of smoking Encounter for prostate cancer screening Exposure to hepatitis C Encounter for screening for diabetes mellitus Encounter for screening examination for sexually transmitted disease Neck pain Thoracic back pain Bronchitis Need for RSV immunization Left flank pain Left sided abdominal pain Cervical radiculopathy Acute viral syndrome Pharyngitis Generalized body aches Sinusitis Scalp irritation Fatigue Eustachian tube dysfunction Cervical radiculopathy Bilateral arm pain Bilateral shoulder pain Neck pain Occult blood in stools Angina at rest Shoulder pain Neck pain Abdominal pain Nerve damage Chest pain Hypertension Exposure to COVID-19 virus Corneal abrasion Amputation of finger tip Urethral colic due to calculus Renal colic on right side Surgical History (Updated 04/08/25 @ 14:02 by Caroline Hernandes CMA) H/O removal of cyst Hx of CABG Hx of inguinal hernia repair History of shoulder surgery History of neck surgery History of knee surgery Family History Other No significant family 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 (Updated 04/08/25 @ 14:03 by Caroline Hernandes CMA) Smoking Status: Former smoker tobacco type: cigarettes packs per day: 1 quit status: has quit before alcohol intake: never substance use type: denies use current occupational status: retired and disabled Travel in the last 8 weeks?: None adopted: No caregiver/support person: No foster care: No household members: friend(s) housing: apartment lives independently: Yes marital status: single number of children: 3 number of grandchildren: 7 service: Yes (discharged 1985) branch: [employer] shelter: No Other 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 Have you received the Flu Vaccine for this season: No Have you received the Pneumonia Vaccine: Yes ROS Obtained: Yes Systems reviewed as appropriate & no additional complaints except as documented per HPI Physical Exam General General appearance: alert and in no apparent distress Head Head exam: atraumatic and normocephalic Eye Eye exam: Present PERRL and EOMI ENT ENT exam: Present mucous membranes moist Neck Neck exam: Present normal inspection and full ROM Chest Chest inspection: Present symmetric chest wall rise Respiratory Respiratory exam: Absent respiratory distress or stridor Cardiovascular Cardiovascular exam: Present regular rate and normal rhythm Abdominal Exam Abdominal exam: Present soft; Absent distention or tenderness Extremities Exam Extremities exam: Present full ROM Neurological Exam Neurological exam: Present alert and oriented X3; Absent motor sensory deficit Psychiatric Psychiatric exam: Present normal affect and normal mood Skin Skin exam: Present warm and dry Medical Decision Making Medical Records Medical records reviewed: Yes I reviewed the patient's medical records. Screening: Per USPSTF and CDC recommendations, given the prevalence of disease in our region, it is our hospital?s policy to screen for HIV and viral Hepatitis for all patients aged 18 and over and those with ongoing risk factors. MR Comment: Labs from his ER visit within the last few hours demonstrate most recent hemoglobin 6.7, Hemoccult positive. discharge summary from 03/31/2025 indicates patient had duodenal ulcer negative for H. pylori, taken off DOAC, patient discharged with hemoglobin 7.6, anticipated restarting DOAC if patient's hemoglobin was stable on recheck at PCP which it obviously was not today which was the reason that he was referred to the ER for continued management initially. Kalpesh Inquiry Pt receiving controlled substance: No Orders (Tests/Meds): ED MEDICATIONS Generic Name Dose Route Start Last Admin Trade Name Freq PRN Reason Stop Dose Admin Sodium Chloride 250 mls @ 25 mls/hr 04/09/25 03:15 Sod Chlor 0.9% 250ml Bag IV 04/10/25 03:14 .Q10H KATHLEEN ORDERS Category Date Time Status Transfuse RBC's [Red Blood Cells] Stat [facility] 04/09/25 03:15 Ordered Type and Screen Stat [facility] 04/09/25 03:15 Ordered Medical Decision Narrative: In summary, this 64-year-old male with extensive cardiac history including recent CABG, aortic valve replacement, known duodenal ulcer with GI bleeding presents to the emergency department today with anemia after leaving the ER AMA less than 1 hour ago. On initial evaluation patient is hemodynamically stable, afebrile, GCS 15, cardiopulmonary exam benign, abdominal exam benign. Patient has known anemia and Hemoccult positive stool from his visit that ended less than 1 hour ago. He came back to the ER agreeable to continued transfusion and admission to the hospital for management of anemia and GI bleed. I discussed this case with lab and they indicated since the patient is still wearing his blood bank band on his wrist and he is within 72 hours from most recent screen that a new type and screen is not necessary at this time. Patient provided consent for transfusion again. No new labs collected at this time. 1 unit transfusion of PRBC ordered. I discussed with him that he will need to be admitted for continued transfusion and management of GI bleed. He understands and is still agreeable to this. Since patient has known duodenal ulcer negative for H. pylori which was identified at during his most recent admission which was the most likely source of his GI bleeding, I started the patient on IV Protonix. I discussed this case with the hospitalist Dr. Templeton including the patient's initial visit and leaving AMA prior to returning, he graciously accepted the patient for admission. Critical Care Critical Care Time Critical Care Time: No
[2025-04-09] MEDS: PANTOPRAZOLE 40MG VIAL 40 MG IV ×3 (03:43→20:03)
--- NOTE | 2025-04-09 03:55 | PC.NURSE ---
Report called to ANGELICA Chong
--- NOTE | 2025-04-09 04:02 | EXP.HP ---
History of Present Illness *Admission Date: 04/09/25 *Reason for visit:: GI bleed *History of present illness: Faye Nelson is a 64-year-old male who presents to the emergency room after being advised by his primary care physician to come get a blood transfusion. Patient had some routine lab work today to follow-up on his hemoglobin and hematocrit, hemoglobin is noted to be 6.1. He has no complaints at this time, no chest pain, fever, cough, abdominal pain, bowel bladder function. Denies any bleeding from anywhere. Does have a wound from what looks like a pilonidal cyst that he has packing in. Wound appears healthy, no signs of infection noted from it. No complaints at this time. Evaluation patient wanted to leave AMA. However he went home and then returned back to the ER so that he can get the blood transfusion. He is endorsing melena which been present for many days. He has a recent bypass surgery and aortic valve replacement and is on a DOAC Does not know his medications and unable to tell me what he takes daily Does not take NSAIDs, drink alcohol, no smoking, no drug use History independently obtained. Discussed case with ER physician. Diagnostic and laboratory evaluation independently interpreted. Reviewed old records. [facility] Disclaimer: The information contained in this section may have been updated after the patient was seen, as this information can be updated by other users. 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 (Updated 04/09/25 @ 04:13 by Haim Templeton MD) History of left heart catheterization COPD (chronic obstructive pulmonary disease) Screening for malignant neoplasm of colon Encounter for screening for abdominal aortic aneurysm (AAA) in patient 50 years of age or older with history of smoking Encounter for prostate cancer screening Exposure to hepatitis C Encounter for screening for diabetes mellitus Encounter for screening examination for sexually transmitted disease Neck pain Thoracic back pain Bronchitis Need for RSV immunization Left flank pain Left sided abdominal pain Cervical radiculopathy Acute viral syndrome Pharyngitis Generalized body aches Sinusitis Scalp irritation Fatigue Eustachian tube dysfunction Cervical radiculopathy Bilateral arm pain Bilateral shoulder pain Neck pain Occult blood in stools Angina at rest Shoulder pain Neck pain Abdominal pain Nerve damage Chest pain Hypertension Exposure to COVID-19 virus Corneal abrasion Amputation of finger tip Urethral colic due to calculus Renal colic on right side Surgical History (Updated 04/08/25 @ 14:02 by Caroline Hernandes CMA) H/O removal of cyst Hx of CABG Hx of inguinal hernia repair History of shoulder surgery History of neck surgery History of knee surgery Family History Other No significant family 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 (Updated 04/08/25 @ 14:03 by Caroline Hernandes CMA) Smoking Status: Former smoker tobacco type: cigarettes packs per day: 1 quit status: has quit before alcohol intake: never substance use type: denies use current occupational status: retired and disabled Travel in the last 8 weeks?: None adopted: No caregiver/support person: No foster care: No household members: friend(s) housing: apartment lives independently: Yes marital status: single number of children: 3 number of grandchildren: 7 service: Yes (discharged 1985) branch: [employer] retirement: No Have you lived/traveled outside [place] in past 30 days?: No Contact w/someone who lives/traveled outside US past 30 days?: No Exposure to someone with infectious disease in past 14 days?: No Do you have a fever (greater than 100.4 F or 38 C)?: No Have you tested positive for COVID-19?: No Exposed to someone with COVID-19 in past 14 days?: No Do you have a sore throat?: No Do you have a cough?: No Do you have any weakness?: No Do you have any diarrhea?: No Are you experiencing any unusual bleeding?: No Do you have any muscle aches/pain?: No Do you have any abdominal pain?: No Are you experiencing loss of taste or smell?: No Other 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 Have you received the Flu Vaccine for this season: No Have you received the Pneumonia Vaccine: Yes Review of Systems Review of Systems Review of systems:: pertinent systems reviewed and negative unless documented below Constitutional Constitutional: Reports system reviewed and no additional complaints, except as documented *Cardiovascular Cardiovascular: Reports system reviewed and no additional complaints, except as documented *Respiratory Respiratory: Reports system reviewed and no additional complaints, except as documented *Gastrointestinal Gastrointestinal: Reports as per HPI *Genitourinary Genitourinary: Reports system reviewed and no additional complaints, except as documented *Musculoskeletal Musculoskeletal: Reports system reviewed and no additional complaints, except as documented *Neurologic Neurologic: Reports system reviewed and no additional complaints, except as documented Meds Home Medications and Allergies Home Medications ?Medication ?Instructions ?Recorded ?Confirmed ?Type aspirin 81 mg tablet,delayed 81 mg PO DAILY 03/12/25 04/08/25 History release atorvastatin 80 mg tablet 80 mg PO HS 03/12/25 04/08/25 History acetaminophen 325 mg tablet 650 mg PO Q6H PRN 04/08/25 04/08/25 History amiodarone 200 mg tablet 200 mg PO DAILY 04/08/25 04/08/25 History apixaban 5 mg tablet (Eliquis) 5 mg PO BID 04/08/25 04/08/25 History metoprolol tartrate 50 mg tablet 75 mg PO BID 04/08/25 04/08/25 History oxycodone 5 mg tablet 5 mg PO Q6H PRN 04/08/25 04/08/25 History pantoprazole 40 mg tablet,delayed 40 mg PO BID 04/08/25 04/08/25 History release sennosides 8.6 mg tablet 17.2 mg PO HS PRN 04/08/25 04/08/25 History sucralfate 100 mg/mL oral 1 g PO DAILY PRN 04/08/25 04/08/25 History suspension tiotropium bromide 2.5 2 puff inhalation BID 04/08/25 04/08/25 History mcg/actuation mist for inhalation (Spiriva Respimat) New Prescriptions to Start Prescriptions: Allergies Allergy/AdvReac Type Severity Reaction Status Date / Time No Known Allergies Allergy Verified 04/08/25 13:43 Exam Data for Last 24 hours Vital signs and Labs for Last 24 Hours: Temp Pulse Resp BP Pulse Ox O2 Del Method 98.6 F 77 18 144/65 H 100 Room Air 04/09/25 03:17 04/09/25 03:17 04/09/25 03:17 04/09/25 03:17 04/09/25 03:17 04/09/25 03:17 I & O for Last 24 hours: Intake & Output 04/06/25 04/07/25 04/08/25 04/09/25 23:59 23:59 23:59 23:59 Weight 94.347 kg Constitutional Constitutional: no acute distress *Routine HEENT Exam Head: Present normocephalic Eye: Present EOMI and PERRL ENT: Present mucous membranes moist *Routine Neck Exam Neck: Present supple; Absent lymphadenopathy *Routine Respiratory Exam Respiratory: Present CTA bilaterally *Routine Cardiovascular Exam Cardiovascular: Present RRR *Routine Abdominal Exam Abdominal: Present soft and normoactive bowel sounds; Absent tenderness *Routine Rectal Exam Rectal:: deferred *Routine Genitalia Exam Genitalia:: deferred *Routine Extremities Exam Extremities: Absent cyanosis, clubbing or edema *Routine Skin Exam Skin: Present warm; Absent rash *Routine Neurological Exam Neurological: Present alert and oriented X3 Assessment and Plan *Assessment and plan (1) GI bleed: Status: Acute Category: Medical Code(s): K92.2 - Gastrointestinal hemorrhage, unspecified (2) Carotid arterial disease: Status: Acute Category: Medical Code(s): I77.9 - Disorder of arteries and arterioles, unspecified (3) Obesity (BMI 30.0-34.9): Status: Acute Category: Medical Code(s): E66.811 - Obesity, class 1 (4) HLD (hyperlipidemia): Status: Acute Category: Medical Code(s): E78.5 - Hyperlipidemia, unspecified (5) CAD (coronary artery disease): Status: Acute Category: Medical Code(s): I25.10 - Atherosclerotic heart disease of [place] coronary artery without angina pectoris Plan Melena - GI consult - N.p.o. - IV PPI - Blood transfusion Acute blood loss anemia - Blood transfusions order - Monitor H&H - Hemoglobin goal 8 given multivessel CAD and CABG multivessel CAD Moderate aortic stenosis ? LHC on 02/15/2025 revealed severe stenosis in LMA, PDA, LCx. Underwent CABG. - Risk factor modification and secondary prevention - LDL goal 55, if above goal add Zetia Acute HFrEF Moderate AI, moderate AAS Mild MR echo shows an EF of 45% with moderate AI and with mild MR. Entresto 24/26 mg p.o. daily. Continue bisoprolol 5 mg p.o. daily. Jardiance 10 mg p.o. daily Aldactone 25 mg p.o. ydail Carotid artery disease Ultrasound shows less than 50% on the right and 50 to 69% on the left Continue aspirin and statin We were resume medications once reconciled due to multiple discrepancies between patient history and reported medications in the chart
--- NOTE | 2025-04-09 04:24 | PC.NURSE ---
Patient arrived to floor via wheelchair from ED at 04:20.
[2025-04-09] MEDS: 0.9 % SODIUM CHLORIDE 250 ML 25 ML IV (04:55)
--- NOTE | 2025-04-09 08:11 | ECG_ITS ---
APPROVED REPORT Exam: Resting ECG HR:72 bpm ECG Measurements Heart Rate 72 AXES ID 152 P 44 QRSd 112 QRS 36 QT 394 T 72 QTc 419 Conclusion SINUS RHYTHM MODERATE INTRAVENTRICULAR CONDUCTION DELAY [110+ ms QRS DURATION] MODERATE ST DEPRESSION [0.05+ mV ST DEPRESSION] ABNORMAL ECG UNCONFIRMED REPORT Electronically signed by : Arik Sky MD 04/09/2025 14:41:10
[2025-04-09] MEDS: DOCUSATE SODIUM 100 MG CAPSULE PO (08:47)
[2025-04-09] MEDS: SODIUM CHLORIDE 0.9% 10ML VIAL 10 ML IV ×2 (08:47→20:03)
[2025-04-09 08:50] LABS: Basophils % 0.7 % (0.1-2.0); Eosinophils # 0.3 Kmm3 (0.0-0.4); Eosinophils % 4.8 % (0.1-12.0); Hematocrit 24.7 % (42.0-52.0); Immature Granulocytes # 0.03 10^3uL; Immature Granulocytes % 0.5 %; Lymphocytes # 2.1 K/mm3 (0.7-4.5); Lymphocytes % 34.8 % (10-50); Mean Corpuscular HGB Conc 31.6 g/dL (31.8-35.4); Mean Corpuscular Hemoglobin 28.1 pg (27.0-31.2); Mean Corpuscular Volume 88.8 fl (80-94); Mean Platelet Volume 9.5 fl (7.4-10.4); Monocytes # 0.7 K/mm3 (0.1-1.0); Monocytes % 11.4 % (1.7-9.3); Neutrophils # 2.9 K/mm3 (1.8-7.8); Neutrophils % 47.8 % (37.0-80.0); Nucleated Red Blood Cells # 0 10^3/uL; Nucleated Red Blood Cells % 0 %; Platelet Count 214 K/mm3 (142-424); Red Blood Count 2.78 M/mm3 (4.60-6.20); Red Cell Distribution Width 16.5 % (11.5-17.5); Red Cell Distribution Width-SD 53.5 fL
--- NOTE | 2025-04-09 08:50 | EXP.SURG.CON ---
History of Present Illness *Admission Date: 04/09/25 *Reason for visit:: GI bleed *History of present illness: Patient is a 64-year-old male who had recently undergone coronary artery bypass grafting and aortic valve replacement at [facility] on 02/21/2025. He has a history of coronary artery disease, carotid arterial disease, BPH, hyperlipidemia, GERD, peptic ulcer disease, hypertension, tobacco abuse. He is on a apixaban and 81 mg aspirin. He presented to the emergency department on 03/12/2025 at which time he was noted to have a gluteal abscess and atrial fibrillation with rapid ventricular response for which she required transfer to [facility] for management. He presented to the emergency department on 03/25/2025 with complaints of feeling ill with fatigue and weakness. He was found to have a hemoglobin of 6.8. At that time he was transferred to [facility] from the emergency department. Reportedly he did undergo inpatient EGD at [facility] which revealed duodenal ulcer and duodenitis. Apparently subsequently the patient has been on pantoprazole and sucralfate. He has restarted his anticoagulation. He was seen in his primary care provider's office yesterday on 04/08/2025 and was advised to present to the emergency department due to findings of anemia. He had a hemoglobin of 5.8 was given 1 unit packed red blood cells. Stool for Hemoccult was positive. Reportedly patient left AMA. Posttransfusion hemoglobin returned at 6.7. Patient was contacted and returned to the emergency department. He was admitted for inpatient management. [facility] Disclaimer: The information contained in this section may have been updated after the patient was seen, as this information can be updated by other users. 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 (Updated 04/09/25 @ 11:44 by Ashley Burk APRN) Bleeding ulcer History of left heart catheterization COPD (chronic obstructive pulmonary disease) Screening for malignant neoplasm of colon Encounter for screening for abdominal aortic aneurysm (AAA) in patient 50 years of age or older with history of smoking Encounter for prostate cancer screening Exposure to hepatitis C Encounter for screening for diabetes mellitus Encounter for screening examination for sexually transmitted disease Neck pain Thoracic back pain Bronchitis Need for RSV immunization Left flank pain Left sided abdominal pain Cervical radiculopathy Acute viral syndrome Pharyngitis Generalized body aches Sinusitis Scalp irritation Fatigue Eustachian tube dysfunction Cervical radiculopathy Bilateral arm pain Bilateral shoulder pain Neck pain Occult blood in stools Angina at rest Shoulder pain Neck pain Abdominal pain Nerve damage Chest pain Hypertension Exposure to COVID-19 virus Corneal abrasion Amputation of finger tip Urethral colic due to calculus Renal colic on right side Surgical History (Updated 04/09/25 @ 11:44 by Ashley Burk APRN) Aortic valve replaced H/O removal of cyst Hx of CABG Hx of inguinal hernia repair History of shoulder surgery History of neck surgery History of knee surgery Family History Other No significant family 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 (Updated 04/09/25 @ 05:09 by Carly Begum RN) Smoking Status: Former smoker tobacco type: cigarettes packs per day: 1 quit status: has quit before alcohol intake: never substance use type: denies use current occupational status: retired and disabled Travel in the last 8 weeks?: None adopted: No caregiver/support person: No foster care: No household members: friend(s) housing: apartment lives independently: Yes marital status: single number of children: 3 number of grandchildren: 7 service: Yes (discharged 1985) 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 senior living: No Have you lived/traveled outside [place] in past 30 days?: No Contact w/someone who lives/traveled outside US past 30 days?: No Exposure to someone with infectious disease in past 14 days?: No Do you have a fever (greater than 100.4 F or 38 C)?: No Have you tested positive for COVID-19?: No Exposed to someone with COVID-19 in past 14 days?: No Do you have a sore throat?: No Do you have a cough?: No Do you have any weakness?: No Are you experiencing any nausea/vomitting?: No Do you have any diarrhea?: No Are you experiencing any unusual bleeding?: No Do you have any muscle aches/pain?: No Do you have any abdominal pain?: No Are you experiencing loss of taste or smell?: No Review of Systems *Neurologic Neurologic: Reports system reviewed and no additional complaints, except as documented Meds Home Medications and Allergies Home Medications ?Medication ?Instructions ?Recorded ?Confirmed ?Type aspirin 81 mg tablet,delayed 81 mg PO DAILY 03/12/25 04/09/25 History release atorvastatin 80 mg tablet 80 mg PO HS 03/12/25 04/09/25 History amiodarone 200 mg tablet 200 mg PO DAILY 04/08/25 04/09/25 History apixaban 5 mg tablet (Eliquis) 5 mg PO BID 04/08/25 04/09/25 History metoprolol tartrate 50 mg tablet 75 mg PO BID 04/08/25 04/09/25 History pantoprazole 40 mg tablet,delayed 40 mg PO BID 04/08/25 04/09/25 History release sennosides 8.6 mg tablet 17.2 mg PO HS PRN Constipation 04/08/25 04/09/25 History sucralfate 100 mg/mL oral 1 g PO QID 04/08/25 04/09/25 History suspension tiotropium bromide 2.5 2 puff inhalation BID 04/08/25 04/09/25 History mcg/actuation mist for inhalation (Spiriva Respimat) furosemide 40 mg tablet 40 mg PO DAILY 04/09/25 04/09/25 History lisinopril 40 mg tablet 40 mg PO DAILY 04/09/25 04/09/25 History potassium chloride 20 mEq 20 meq PO DAILY 04/09/25 04/09/25 History tablet,extended release(part/cryst) New Prescriptions to Start Prescriptions: Allergies Allergy/AdvReac Type Severity Reaction Status Date / Time No Known Allergies Allergy Verified 04/08/25 13:43 Exam (Inpt) Vital signs and Labs for Last 24 Hours: Temp Pulse Resp BP Pulse Ox O2 Del Method 98.2 F 74 16 143/65 H 98 Room Air 04/09/25 07:48 04/09/25 07:48 04/09/25 07:48 04/09/25 07:48 04/09/25 07:48 04/09/25 06:16 Laboratory Results - last 24 hr 04/08/25 21:31: Blood Type Cancelled, Rho(D) Type Cancelled, Antibody Screen Cancelled, Crossmatch (AHG) See Detail I & O for Labs for Last 24 Hours: Intake & Output 04/06/25 04/07/25 04/08/25 04/09/25 11:59 11:59 11:59 11:59 Intake Total 250 / 250 Balance 250 / 250 Weight 221 lb 3.2 oz Results Labs 05/30/25 08:45 Labs: Laboratory Results - last 24 hr 04/08/25 21:31: Blood Type Cancelled, Rho(D) Type Cancelled, Antibody Screen Cancelled, Crossmatch (AHG) See Detail Assessment and Plan *Assessment and plan (1) Bleeding ulcer: Status: Acute Category: Medical Code(s): K28.4 - Chronic or unspecified gastrojejunal ulcer with hemorrhage Plan Since the patient has a known source based on recent upper endoscopy performed at [facility] and is currently on anticoagulation and has shown an appropriate response to 2 unit blood transfusion would hold off on performing endoscopy at this time as it appears as though it is not necessary for diagnostic or therapeutic purposes presently. I will see if we can obtain the records from his endoscopy. If this shows that he had stigmata of recent bleeding or active bleeding and required intervention or if he shows ongoing dropping of his hemoglobin upper endoscopy may be needed.
[2025-04-09 08:58] LABS: Hemoglobin 7.8 g/dL (14.1-18.0)
[2025-04-09 09:04] LABS: Chol/HDL Ratio 2.1 (1-3.5); Cholesterol 73 mg/dl (140-200); HDL Cholesterol 35 mg/dl (40-60); Magnesium 1.6 mg/dl (1.6-2.3); Triglycerides 71 mg/dl (30-150); VLDL Cholesterol 14 mg/dL (0-40)
[2025-04-09 09:15] LABS: Direct LDL Cholesterol < 30.00 mg/dL (100-129)
[2025-04-09 09:17] LABS: INR 1.06 (0.9-1.1); Prothrombin Time 11.7 seconds (10.1-12.5)
[2025-04-09] MEDS: IRON SUCROSE COMPLEX 200 MG in 0.9 % SODIUM CHLORIDE 100 ML 220 MG IV (10:03)
[2025-04-09] MEDS: miSOPROStoL 200 MCG TABLET PO ×3 (10:07→21:11)
[2025-04-09] MEDS: SUCRALFATE 1GM TABLET 1 GM PO ×3 (10:07→20:03)
--- NOTE | 2025-04-09 10:20 | PC.NURSE ---
dressing changed on coccyx. dry 4x4 used for packing and covered with mepelex
[2025-04-09] MEDS: HYDROCODONE/APAP 5/325 MG TABLET 1 TAB PO ×2 (11:27→20:30)
[2025-04-09 11:31] LABS: POC Glucose,Bedside 97 (70-110)
--- NOTE | 2025-04-09 11:40 | EXP.CARD.CON ---
History of Present Illness History of Present Illness Consult date: 04/09/25 Requesting physician: Frederic White Consult reason: known to you Chief complaint: GI bleed History of present illness: This is a 64-year-old white gentleman who presented to the emergency department because he was advised to come for a blood transfusion by his primary care provider. The patient had blood work at his primary care provider's office yesterday and his hemoglobin was 6.1. He was called and told to come to the emergency department for transfusions. The patient underwent coronary artery bypass grafting and aortic valve replacement in February 2025. He states since that time he has had a GI bleed and had an EGD while at . He was told he had a bleeding ulcer and had to get blood. He states that he was also seen back at because he was in atrial fibrillation and had to have a cardioversion. The patient states that he has been feeling fine but has had some melena for the last several days. He denies chest pain or pressure. He denies shortness of breath or edema. He denies fever, chills, nausea, vomiting, diarrhea, PND or orthopnea. [facility] Disclaimer: The information contained in this section may have been updated after the patient was seen, as this information can be updated by other users. 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 (Updated 04/09/25 @ 11:44 by Ashley Burk APRN) Bleeding ulcer History of left heart catheterization COPD (chronic obstructive pulmonary disease) Screening for malignant neoplasm of colon Encounter for screening for abdominal aortic aneurysm (AAA) in patient 50 years of age or older with history of smoking Encounter for prostate cancer screening Exposure to hepatitis C Encounter for screening for diabetes mellitus Encounter for screening examination for sexually transmitted disease Neck pain Thoracic back pain Bronchitis Need for RSV immunization Left flank pain Left sided abdominal pain Cervical radiculopathy Acute viral syndrome Pharyngitis Generalized body aches Sinusitis Scalp irritation Fatigue Eustachian tube dysfunction Cervical radiculopathy Bilateral arm pain Bilateral shoulder pain Neck pain Occult blood in stools Angina at rest Shoulder pain Neck pain Abdominal pain Nerve damage Chest pain Hypertension Exposure to COVID-19 virus Corneal abrasion Amputation of finger tip Urethral colic due to calculus Renal colic on right side Surgical History (Updated 04/09/25 @ 11:44 by Ashley Burk APRN) Aortic valve replaced H/O removal of cyst Hx of CABG Hx of inguinal hernia repair History of shoulder surgery History of neck surgery History of knee surgery Family History Other No significant family 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 (Updated 04/09/25 @ 05:09 by Carly Begum RN) Smoking Status: Former smoker tobacco type: cigarettes packs per day: 1 quit status: has quit before alcohol intake: never substance use type: denies use current occupational status: retired and disabled Travel in the last 8 weeks?: None adopted: No caregiver/support person: No foster care: No household members: friend(s) housing: apartment lives independently: Yes marital status: single number of children: 3 number of grandchildren: 7 service: Yes (discharged 1985) branch: [employer] correction: No Have you lived/traveled outside US in past 30 days?: No Contact w/someone who lives/traveled outside US past 30 days?: No Exposure to someone with infectious disease in past 14 days?: No Do you have a fever (greater than 100.4 F or 38 C)?: No Have you tested positive for COVID-19?: No Exposed to someone with COVID-19 in past 14 days?: No Do you have a sore throat?: No Do you have a cough?: No Do you have any weakness?: No Are you experiencing any nausea/vomitting?: No Do you have any diarrhea?: No Are you experiencing any unusual bleeding?: No Do you have any muscle aches/pain?: No Do you have any abdominal pain?: No Are you experiencing loss of taste or smell?: No Review of Systems Review of Systems Review of systems:: pertinent systems reviewed and negative unless documented below Constitutional Constitutional: Reports system reviewed and no additional complaints, except as documented Eyes Eyes: Reports system reviewed and no additional complaints, except as documented ENT Ears, Nose, Mouth, and Throat: Reports system reviewed and no additional complaints, except as documented *Cardiovascular Cardiovascular: Reports system reviewed and no additional complaints, except as documented *Respiratory Respiratory: Reports system reviewed and no additional complaints, except as documented *Gastrointestinal Gastrointestinal: Reports system reviewed and no additional complaints, except as documented and Reports melena *Genitourinary Genitourinary: Reports system reviewed and no additional complaints, except as documented *Musculoskeletal Musculoskeletal: Reports system reviewed and no additional complaints, except as documented Integumentary/Breasts Skin/Breast: Reports system reviewed and no additional complaints, except as documented *Neurologic Neurologic: Reports system reviewed and no additional complaints, except as documented Psychiatric Psychiatric: Reports system reviewed and no additional complaints, except as documented Endocrine Endocrine: Reports system reviewed and no additional complaints, except as documented Hematologic/Lymphatic Hematologic/Lymphatic: Reports system reviewed and no additional complaints, except as documented Allergic/Immunologic Allergic/Immunologic: Reports system reviewed and no additional complaints, except as documented Exam Data for Last 24 hours Vital signs and Labs for Last 24 Hours: Temp Pulse Resp BP Pulse Ox O2 Del Method 98.2 F 74 16 143/65 H 98 Room Air 04/09/25 07:48 04/09/25 07:48 04/09/25 07:48 04/09/25 07:48 04/09/25 07:48 04/09/25 11:00 Laboratory Results - last 24 hr 04/08/25 21:31: Blood Type Cancelled, Rho(D) Type Cancelled, Antibody Screen Cancelled, Crossmatch (AHG) See Detail 04/09/25 08:45: WBC 6.0, RBC 2.78 L D, Hgb 7.8 L D, Hct 24.7 L, MCV 88.8, MCH 28.1, MCHC 31.6 L, RDW 16.5, Plt Count 214, MPV 9.5, Neut % (Auto) 47.8, Lymph % (Auto) 34.8, [place] % (Auto) 11.4 H, Eos % (Auto) 4.8, Baso % (Auto) 0.7, Neut # (Auto) 2.9, Lymph # (Auto) 2.1, [place] # (Auto) 0.7, Eos # (Auto) 0.3, Baso # (Auto) 0.0, Phosphorus 3.0, Magnesium 1.6, Triglycerides 71, Cholesterol 73 L, LDL Cholesterol Direct < 30.00 L, VLDL Cholesterol 14, HDL Cholesterol 35 L, Cholesterol/HDL Ratio 2.1 04/09/25 09:00: PT 11.7, INR 1.06 04/09/25 11:23: POC Glucose 97 I & O for Last 24 hours: Intake & Output 04/06/25 04/07/25 04/08/25 04/09/25 23:59 23:59 23:59 23:59 Intake Total 250 / 250 Balance 250 / 250 Weight 221 lb 3.2 oz Constitutional Constitutional: no acute distress and average body habitus *Routine HEENT Exam Head: Present normocephalic and atraumatic ENT: Present mucous membranes moist *Routine Neck Exam Neck: Present supple, full ROM and normal carotid upstroke; Absent JVD, carotid bruit or lymphadenopathy *Routine Respiratory Exam Respiratory: Present CTA bilaterally, normal respiratory effort, able to speak in complete sentences and symmetric chest movement *Routine Cardiovascular Exam Cardiovascular: Present RRR, Normal S1 and Normal S2; Absent murmur or gallop *Routine Abdominal Exam Abdominal: Present soft and normoactive bowel sounds; Absent tenderness, distended or organomegaly *Routine Extremities Exam Extremities: Present full ROM, pulses intact and normal capillary refill; Absent cyanosis, clubbing or edema *Routine Skin Exam Skin: Present intact and warm; Absent erythema *Routine Neurological Exam Neurological: Present alert, oriented X3 and CN II-XII intact; Absent sensory deficit or motor deficit Routine Psychiatric Exam Psychiatric: Present normal affect Meds Home Medications and Allergies Home Medications ?Medication ?Instructions ?Recorded ?Confirmed ?Type aspirin 81 mg tablet,delayed 81 mg PO DAILY 03/12/25 04/09/25 History release atorvastatin 80 mg tablet 80 mg PO HS 03/12/25 04/09/25 History amiodarone 200 mg tablet 200 mg PO DAILY 04/08/25 04/09/25 History apixaban 5 mg tablet (Eliquis) 5 mg PO BID 04/08/25 04/09/25 History metoprolol tartrate 50 mg tablet 75 mg PO BID 04/08/25 04/09/25 History pantoprazole 40 mg tablet,delayed 40 mg PO BID 04/08/25 04/09/25 History release sennosides 8.6 mg tablet 17.2 mg PO HS PRN Constipation 04/08/25 04/09/25 History sucralfate 100 mg/mL oral 1 g PO QID 04/08/25 04/09/25 History suspension tiotropium bromide 2.5 2 puff inhalation BID 04/08/25 04/09/25 History mcg/actuation mist for inhalation (Spiriva Respimat) furosemide 40 mg tablet 40 mg PO DAILY 04/09/25 04/09/25 History lisinopril 40 mg tablet 40 mg PO DAILY 04/09/25 04/09/25 History potassium chloride 20 mEq 20 meq PO DAILY 04/09/25 04/09/25 History tablet,extended release(part/cryst) New Prescriptions to Start Prescriptions: Allergies Allergy/AdvReac Type Severity Reaction Status Date / Time No Known Allergies Allergy Verified 04/08/25 13:43 Assessment and Plan *Assessment and plan (1) GI bleed: Status: Acute Qualifiers: GI bleed type/associated pathology: melena Qualified Code(s): K92.1 - Melena Category: Medical Code(s): K92.2 - Gastrointestinal hemorrhage, unspecified (2) CAD (coronary artery disease): Status: Acute Qualifiers: Coronary Disease-Associated Artery/Lesion type: [place] artery [place] vs. transplanted heart: [place] heart Associated angina: without angina Qualified Code(s): I25.10 - Atherosclerotic heart disease of [place] coronary artery without angina pectoris Category: Medical Code(s): I25.10 - Atherosclerotic heart disease of [place] coronary artery without angina pectoris (3) Anemia: Status: Acute Qualifiers: Anemia type: unspecified type Qualified Code(s): D64.9 - Anemia, unspecified Category: Medical Code(s): D64.9 - Anemia, unspecified (4) Hypertension: Status: Acute Qualifiers: Hypertension type: primary hypertension Qualified Code(s): I10 - Essential (primary) hypertension Category: Medical Code(s): I10 - Essential (primary) hypertension (5) Tobacco abuse: Status: Acute Category: Medical Code(s): Z72.0 - Tobacco use (6) HLD (hyperlipidemia): Status: Acute Qualifiers: Hyperlipidemia type: mixed hyperlipidemia Qualified Code(s): E78.2 - Mixed hyperlipidemia Category: Medical Code(s): E78.5 - Hyperlipidemia, unspecified (7) GERD (gastroesophageal reflux disease): Status: Acute Qualifiers: Esophagitis presence: esophagitis presence not specified Qualified Code(s): K21.9 - Gastro-esophageal reflux disease without esophagitis Category: Medical Code(s): K21.9 - Gastro-esophageal reflux disease without esophagitis (8) Carotid arterial disease: Status: Acute Qualifiers: Carotid artery disease type: stenosis Laterality: bilateral Qualified Code(s): I65.23 - Occlusion and stenosis of bilateral carotid arteries Category: Medical Code(s): I77.9 - Disorder of arteries and arterioles, unspecified (9) Bleeding ulcer: Status: Acute Category: Medical Code(s): K28.4 - Chronic or unspecified gastrojejunal ulcer with hemorrhage (10) Hx of CABG: Status: Acute Category: Surgical Code(s): Z95.1 - Presence of aortocoronary bypass graft (11) Aortic valve replaced: Status: Acute Category: Surgical Code(s): Z95.2 - Presence of prosthetic heart valve Plan Plan: 1. The patient was admitted to the hospital with a GI bleed. General surgery has been consulted. 2. Cardiology was consulted due to his use of blood thinners. The patient reports having a bleeding ulcer recently. His Eliquis was stopped for several days/weeks, he is really unsure how long it was stopped and he just resumed his Eliquis this the week. He has had melena for the last several days. Stop aspirin and Eliquis at this time. 3. If the patient has a planned EGD during this hospitalization if he still has an active bleeding ulcer then we will continue to hold his aspirin and Eliquis. If there is no active source of bleeding then his aspirin will need to be resumed. Once his anemia has improved then we can resume his Eliquis on an outpatient basis. 4. If no EGD is planned during this hospitalization then continue to hold his aspirin and Eliquis until repeat EGD has occurred. 5. The patient does have a history of coronary artery disease. He is status post CABG. He denies chest pain or pressure. No plans for invasive left cardiac catheterization at this time. 6. His blood pressure is well-controlled. Continue metoprolol, lisinopril and Lasix. 7. His LDL goal is less than 55. His LDL is less than 30. He is on a statin. 8. The patient did have paroxysmal atrial fibrillation. He is on amiodarone. Continue amiodarone at this time. 9. Continue PPI due to GI bleed. 10. No further recommendations at this time from a cardiac standpoint. Thank you for the opportunity to help participate in the care of this patient. Thank you for the opportunity to help participate in the care of this patient. All recommendations and orders are per Dr. Joiner.
[2025-04-09] MEDS: MAGNESIUM SULFATE IN WATER 2 GM/50 ML PIGGYBACK IV ×2 (12:26→14:16)
--- NOTE | 2025-04-09 14:19 | PC.WOUNDNOTE ---
coccyx / intergluteal cleft. Decubitus with packing. Coccyx / intergluteal cleft coccyx/ intergluteal cleft
--- NOTE | 2025-04-09 14:55 | [facility].PTWOUND ---
Rehab Inpt Wound Evaluation Rehab IP Wound Evaluation Start: 04/09/25 11:27 Freq: ONCE Status: Active Protocol: Document 04/09/25 13:50 KALIN (Rec: 04/09/25 14:55 KALIN [id number]) Rehab PT Wound Assessment Subjective Subjective Per H&P: Faye Nelson is a 64-year-old male who presents to the emergency room after being advised by his primary care physician to come get a blood transfusion. Patient had some routine lab work today to follow-up on his hemoglobin and hematocrit, hemoglobin is noted to be 6.1. He has no complaints at this time, no chest pain, fever, cough, abdominal pain , bowel bladder function. Denies any bleeding from anywhere. Does have a wound from what looks like a pilonidal cyst that he has packing in. Wound appears healthy, no signs of infection noted from it. No complaints at this time. Wound Sacrum Wound Type Wound from pilonidal cyst Wound Length (cm) 1.9 Wound Width (cm) 1.4 Wound Depth (cm) 2.0 Percentage 100 Granulated (%) Undermining Position 3-6 o'clock Undermining Depth ( 1.4 cm) Tunneling Position 3 oclock Tunneling Depth (cm) 6.2 Surrounding Tissue [place] Appearance Wound Drainage Serous Description Drainage Amount Scant Drainage Odor No Odor Dressing Status Changed Packing Type Impregnated Gauze Pads Primary Dressing Composite Plan/Recommendation Comment Pt presents with a sacral wound that PT packed with iodophor impregnated gauze and dressed with boarded foam dressing. Pt's wound demo'd a 6.2 cm tunneling at 3 o'clock. The visible tissue appears to be healthy granulation tissue with no visible signs of infection. PT educated nursing staff on findings. Nursing is to continue performing dressing changes as needed and to contact wound care with any questions or concerns. Pt tolerated treatment well. Eval Complexity Eval Charge Codes 69203 - Moderate Complexity PHYSICIAN CERTIFICATION: I certify the specified therapy services for Shelly Nelson JR are required, authorized, and reviewed every 30 days.
--- NOTE | 2025-04-09 15:25 | PC.NURSE ---
VS stable, patient remained on room air. No bloody bowel movements noted during shift. No signs of bleeding noted. Lung sounds clear.
[2025-04-09] MEDS: METOPROLOL TARTRATE 50MG TABLET 75 MG PO (20:03)
[2025-04-09] MEDS: ATORVASTATIN 40MG TABLET 80 MG PO (20:03)
--- NOTE | 2025-04-09 21:46 | PC.NURSE ---
Patient had a bowel movement during this evening. Stool consistency was formed, soft, and the color was a dark green. No bright, red blood noted in the stool that was visible to the eye. Patient denied any tenderness in his abdomen upon palpation; appearance is round. He also denies any nausea or vomiting at this time. Upon initial assessment, the patient stated that he feels sleepy but does not feel unwell otherwise. Pleasantly alert and oriented. He ambulates independently without any difficulties, stumbling, or swaying. He denies any reports of dizziness or lightheadedness thus far. Skin issues noted consist of a healing incision on his right lower extremity (near maria/calf/knee area, covered with a band-aid per request), a freshly packed wound on his buttocks/lower back, and mid-sternal scarring with sutures underneath. Mild swelling was noted in his lower extremities. To be NPO after midnight. At this time, the patient is resting in bed without any further complaints. Call light within reach.
[2025-04-10] MEDS: miSOPROStoL 200 MCG TABLET PO ×2 (03:38→08:56)
[2025-04-10 04:00] VITALS: BP 145/72; PULSE 69; RESP 16; TEMP 36.9; O2SAT 98; BMI 29.5
[2025-04-10] MEDS: SUCRALFATE 1GM TABLET 1 GM PO (05:54)
[2025-04-10] MEDS: HYDROCODONE/APAP 5/325 MG TABLET 1 TAB PO (05:56)
[2025-04-10 06:22] LABS: Basophils # 0.1 K/mm3 (0-0.2); Eosinophils # 0.4 Kmm3 (0.0-0.4); Eosinophils % 7.2 % (0.1-12.0); Hematocrit 27.6 % (42.0-52.0); Hemoglobin 8.5 g/dL (14.1-18.0); Immature Granulocytes # 0.02 10^3uL; Immature Granulocytes % 0.3 %; Lymphocytes # 2.2 K/mm3 (0.7-4.5); Lymphocytes % 36.9 % (10-50); Mean Corpuscular HGB Conc 30.8 g/dL (31.8-35.4); Mean Corpuscular Hemoglobin 27.4 pg (27.0-31.2); Mean Platelet Volume 9.3 fl (7.4-10.4); Monocytes # 0.6 K/mm3 (0.1-1.0); Monocytes % 10.4 % (1.7-9.3); Neutrophils # 2.7 K/mm3 (1.8-7.8); Neutrophils % 44.2 % (37.0-80.0); Nucleated Red Blood Cells # 0.03 10^3/uL; Nucleated Red Blood Cells % 0.5 %; Platelet Count 232 K/mm3 (142-424); Red Cell Distribution Width 17.1 % (11.5-17.5); Red Cell Distribution Width-SD 54.8 fL; White Blood Count 6.1 K/mm3 (4.8-10.8)
[2025-04-10 06:33] LABS: Alanine Aminotransferase 16 U/L (12-78); Albumin Level 2.9 g/dl (3.5-5.0); Albumin/Globulin Ratio 1.2 (1.1-1.8); Alkaline Phosphatase 88 U/L (38-126); Anion Gap 7.9 mEq/L (5-15); Aspartate Amino Transferase 23 U/L (17-59); Bilirubin,Total 0.6 mg/dl (0.2-1.3); Blood Urea Nitrogen 17 mg/dl (9-20); Calcium 8.3 mg/dl (8.4-10.2); Carbon Dioxide 29 mmol/L (22.0-30.0); Chloride 105 mmol/L (98-107); Creatinine Clearance Estimated 98 mL/min (50-200); Estimated Glomerular Filt Rate 113 ml/min (>60); GFR (African American) 137 ML/MIN (>60); Globulin 2.5 g/dL (1.3-3.2); Glucose 89 mg/dl (74-100); Magnesium 1.9 mg/dl (1.6-2.3); Potassium 3.9 mmoL/L (3.5-5.1); Sodium 138 mmol/L (136-145); Total Protein,Serum 5.4 g/dl (6.3-8.2)
--- NOTE | 2025-04-10 07:11 | EXP.DC.SUM ---
General Admission date:: 04/09/25 Discharge date: 04/10/25 HPI HPI HPI: Patient is a 64-year-old male who had recently undergone coronary artery bypass grafting and aortic valve replacement at [facility] on 02/21/2025. He has a history of coronary artery disease, carotid arterial disease, BPH, hyperlipidemia, GERD, peptic ulcer disease, hypertension, tobacco abuse. He is on a apixaban and 81 mg aspirin. He presented to the emergency department on 03/12/2025 at which time he was noted to have a gluteal abscess and atrial fibrillation with rapid ventricular response for which she required transfer to [facility] for management. He presented to the emergency department on 03/25/2025 with complaints of feeling ill with fatigue and weakness. He was found to have a hemoglobin of 6.8. At that time he was transferred to [facility] from the emergency department. Reportedly he did undergo inpatient EGD at [facility] which revealed duodenal ulcer and duodenitis. Apparently subsequently the patient has been on pantoprazole and sucralfate. He has restarted his anticoagulation. He was seen in his primary care provider's office yesterday on 04/08/2025 and was advised to present to the emergency department due to findings of anemia. He had a hemoglobin of 5.8 was given 1 unit packed red blood cells. Stool for Hemoccult was positive. Reportedly patient left AMA. Posttransfusion hemoglobin returned at 6.7. Patient was contacted and returned to the emergency department. He was admitted for inpatient management. Hospital Course Hospital Course Hospital Course: 64-year-old male status post CABG and aortic valve replacement approximately 6 to 8 weeks ago. Has been doing well from a cardiac standpoint. Came in with recurrent anemia, concern for GI bleed. Was treated at 2 weeks ago for similar issue. Records were obtained showing punctate duodenal lesion with no active bleeding. Bleeding recurred after he resumed his Eliquis. Surgery and cardiology evaluated patient while he was admitted. Hemoglobin has responded appropriately to transfusion with no other active signs of bleeding. Will hold Eliquis. Stable to discharge home. Recommend follow-up with his specialist at and PCP within the next week. Repeat labs ordered for later this week. Problems addressed as follows: Melena GI bleed Duodenal ulcer Acute blood loss anemia -Patient presented with Hemoglobin of 5.8. Was transfused 2 units. Responded well. Hemoglobin 8.5 on morning of discharge. Has remained stable between 7.8 and 8.5 after transfusion. Was having melenic stools prior to admission. Stools have transitioned to light brown. No other active signs of bleeding. Started on PPI, sucralfate, misoprostol during admission. Will continue pantoprazole 40 mg twice daily. Continue sucralfate ACHS for 1 week. Discontinue Eliquis. Resume aspirin 81 mg daily. Multivessel CAD History of CABG Moderate aortic stenosis status post valve replacement HFrEF -Patient doing well from a cardiac standpoint. Cardiology evaluated to help guide anticoagulation above. Resume aspirin as bleeding has resolved and given results from recent EGD. Hold Eliquis at this time. Patient in sinus rhythm confirmed with EKG. Continue amiodarone 200 mg day, continue Lipitor 80 nightly, continue Lasix 40 mg daily and lisinopril 40 daily. Continue with Toprol tartrate 75 mg twice daily. Follow with cardiology team from . Has appointment scheduled in 2 weeks - echo shows an EF of 45% with moderate AI and with mild MR. Total time spent on discharge 32 minutes in counseling, documentation, chart review, and direct care with patient. Exam Data for Last 24 hours Vital signs and Labs for Last 24 Hours: Temp Pulse Resp BP Pulse Ox O2 Del Method 98.5 F 69 16 145/72 H 98 Room Air 04/10/25 04:00 04/10/25 04:00 04/10/25 04:00 04/10/25 04:00 04/10/25 04:00 04/10/25 06:45 Laboratory Results - last 24 hr 04/08/25 21:31: Crossmatch ([facility]) See Detail 04/09/25 08:45: WBC 6.0, RBC 2.78 L D, Hgb 7.8 L D, Hct 24.7 L, MCV 88.8, MCH 28.1, MCHC 31.6 L, RDW 16.5, Plt Count 214, MPV 9.5, Neut % (Auto) 47.8, Lymph % (Auto) 34.8, Webb % (Auto) 11.4 H, Eos % (Auto) 4.8, Baso % (Auto) 0.7, Neut # (Auto) 2.9, Lymph # (Auto) 2.1, Webb # (Auto) 0.7, Eos # (Auto) 0.3, Baso # (Auto) 0.0, Phosphorus 3.0, Magnesium 1.6, Triglycerides 71, Cholesterol 73 L, LDL Cholesterol Direct < 30.00 L, VLDL Cholesterol 14, HDL Cholesterol 35 L, Cholesterol/HDL Ratio 2.1 04/09/25 09:00: PT 11.7, INR 1.06 04/09/25 11:23: POC Glucose 97 04/10/25 06:06: WBC 6.1, RBC 3.10 L, Hgb 8.5 L, Hct 27.6 L, MCV 89.0, MCH 27.4, MCHC 30.8 L, RDW 17.1, Plt Count 232, MPV 9.3, Neut % (Auto) 44.2, Lymph % (Auto) 36.9, Webb % (Auto) 10.4 H, Eos % (Auto) 7.2, Baso % (Auto) 1.0, Neut # (Auto) 2.7, Lymph # (Auto) 2.2, Webb # (Auto) 0.6, Eos # (Auto) 0.4, Baso # (Auto) 0.1, Sodium 138, Potassium 3.9, Chloride 105, Carbon Dioxide 29, Anion Gap 7.9, BUN 17, Creatinine 0.70, Estimated Creat Clear 98, Estimated GFR 113, Est GFR ( Amer) 137, Glucose 89, Calcium 8.3 L, Magnesium 1.9 D, Total Bilirubin 0.6, AST 23 D, ALT 16, Alkaline Phosphatase 88, Total Protein 5.4 L, Albumin 2.9 L, Globulin 2.5, Albumin/Globulin Ratio 1.2 I & O for Last 24 hours: Intake & Output 04/07/25 04/08/25 04/09/25 04/10/25 23:59 23:59 23:59 23:59 Intake Total 810 / 1346 536 / 536 Output Total 0 / 0 0 / 0 Balance 810 / 1346 536 / 536 Weight 100.3 kg 95.481 kg Constitutional Constitutional: no acute distress, obese, chronically ill appearing and cooperative *Routine HEENT Exam Head: Present normocephalic *Routine Respiratory Exam Respiratory: Present CTA bilaterally and symmetric chest movement; Absent rhonchi or wheezes *Routine Cardiovascular Exam Cardiovascular: Present RRR, Normal S1, Normal S2 and murmur (systolic) *Routine Abdominal Exam Abdominal: Present soft and normoactive bowel sounds; Absent tenderness *Routine Rectal Exam Patient deferred: visual exam *Routine Exam Patient deferred: penile exam *Routine Extremities Exam Extremities: Present full ROM and normal capillary refill; Absent edema *Routine Skin Exam Skin: Present intact, dry and warm *Routine Neurological Exam Neurological: Present alert, oriented X3 and moving all extremities; Absent altered mental status Routine Psychiatric Exam Psychiatric: Present normal affect and normal thought process Detailed Neck Exam: Thyroids Thyroid: Absent bruit Results Data Completed and Pending Labs on day of discharge: Labs from last 24 hours 04/10/25 04/09/25 04/09/25 06:06 11:23 09:00 WBC 6.1 RBC 3.10 L Hgb 8.5 L Hct 27.6 L MCV 89.0 MCH 27.4 MCHC 30.8 L RDW 17.1 Plt Count 232 MPV 9.3 Neut % (Auto) 44.2 Lymph % (Auto) 36.9 Webb % (Auto) 10.4 H Eos % (Auto) 7.2 Baso % (Auto) 1.0 Neut # (Auto) 2.7 Lymph # (Auto) 2.2 Webb # (Auto) 0.6 Eos # (Auto) 0.4 Baso # (Auto) 0.1 PT 11.7 INR 1.06 Sodium 138 Potassium 3.9 Chloride 105 Carbon Dioxide 29 Anion Gap 7.9 BUN 17 Creatinine 0.70 Estimated Creat Clear 98 Estimated GFR 113 Est GFR ( Amer) 137 Glucose 89 POC Glucose 97 Calcium 8.3 L Phosphorus Magnesium 1.9 D Total Bilirubin 0.6 AST 23 D ALT 16 Alkaline Phosphatase 88 Total Protein 5.4 L Albumin 2.9 L Globulin 2.5 Albumin/Globulin Ratio 1.2 Triglycerides Cholesterol LDL Cholesterol Direct VLDL Cholesterol HDL Cholesterol Cholesterol/HDL Ratio Crossmatch ([facility]) 04/09/25 04/08/25 08:45 21:31 WBC 6.0 RBC 2.78 L D Hgb 7.8 L D Hct 24.7 L MCV 88.8 MCH 28.1 MCHC 31.6 L RDW 16.5 Plt Count 214 MPV 9.5 Neut % (Auto) 47.8 Lymph % (Auto) 34.8 Webb % (Auto) 11.4 H Eos % (Auto) 4.8 Baso % (Auto) 0.7 Neut # (Auto) 2.9 Lymph # (Auto) 2.1 Webb # (Auto) 0.7 Eos # (Auto) 0.3 Baso # (Auto) 0.0 PT INR Sodium Potassium Chloride Carbon Dioxide Anion Gap BUN Creatinine Estimated Creat Clear Estimated GFR Est GFR ( Amer) Glucose POC Glucose Calcium Phosphorus 3.0 Magnesium 1.6 Total Bilirubin AST ALT Alkaline Phosphatase Total Protein Albumin Globulin Albumin/Globulin Ratio Triglycerides 71 Cholesterol 73 L LDL Cholesterol Direct < 30.00 L VLDL Cholesterol 14 HDL Cholesterol 35 L Cholesterol/HDL Ratio 2.1 Crossmatch ([facility]) See Detail DS: Diagnosis Discharge Diagnosis (1) Bleeding ulcer: Status: Acute Code(s): K28.4 - Chronic or unspecified gastrojejunal ulcer with hemorrhage Meds Home Medications and Allergies Home Medications ?Medication ?Instructions ?Recorded ?Confirmed ?Type aspirin 81 mg tablet,delayed 81 mg PO DAILY 03/12/25 04/09/25 History release atorvastatin 80 mg tablet 80 mg PO HS 03/12/25 04/09/25 History amiodarone 200 mg tablet 200 mg PO DAILY 04/08/25 04/09/25 History apixaban 5 mg tablet (Eliquis) 5 mg PO BID 04/08/25 04/09/25 History Held on 04/10/25. Instructions: pending follow-up with GI or Cardiology/CT surgery at metoprolol tartrate 50 mg tablet 75 mg PO BID 04/08/25 04/09/25 History pantoprazole 40 mg tablet,delayed 40 mg PO BID 04/08/25 04/09/25 History release sennosides 8.6 mg tablet 17.2 mg PO HS PRN Constipation 04/08/25 04/09/25 History sucralfate 100 mg/mL oral 1 g PO QID 04/08/25 04/09/25 History suspension tiotropium bromide 2.5 2 puff inhalation BID 04/08/25 04/09/25 History mcg/actuation mist for inhalation (Spiriva Respimat) furosemide 40 mg tablet 40 mg PO DAILY 04/09/25 04/09/25 History lisinopril 40 mg tablet 40 mg PO DAILY 04/09/25 04/09/25 History potassium chloride 20 mEq 20 meq PO DAILY 04/09/25 04/09/25 History tablet,extended release(part/cryst) sucralfate 1 gram tablet 1 g PO ACHS 7 days #28 tabs 04/10/25 Rx New Prescriptions to Start Prescriptions: sucralfate Frederic White Allergies Allergy/AdvReac Type Severity Reaction Status Date / Time No Known Allergies Allergy Verified 04/08/25 13:43 Discharge Plan Disposition Patient Disposition: Home, Self-Care Condition: Fair Discharge Order Discharge Orders: Discharge Order (Routine); Ordered 04/10/25 Ordered By: Frederic White Follow up Plan Follow up with: Kiera Castro APRN [Primary Care Provider, Family Practice] - 1 week Referral Note: Prescriptions/Medication Reconciliation: New sucralfate 1 gram Tablet 1 g PO ACHS 7 Days Qty: 28 0RF Continued sennosides 8.6 mg tablet 17.2 mg PO HS PRN (Reason: Constipation) pantoprazole 40 mg tablet,delayed release (DR/EC) 40 mg PO BID amiodarone 200 mg tablet 200 mg PO DAILY sucralfate 100 mg/mL suspension 1 g PO QID metoprolol tartrate 50 mg tablet 75 mg PO BID Spiriva Respimat 2.5 mcg/actuation mist 2 puff inhalation BID aspirin 81 mg Tablet,Delayed Release (Dr/Ec) 81 mg PO DAILY atorvastatin 80 mg Tablet 80 mg PO HS furosemide 40 mg tablet 40 mg PO DAILY potassium chloride 20 mEq tablet,ER particles/crystals 20 meq PO DAILY lisinopril 40 mg tablet 40 mg PO DAILY Held Eliquis 5 mg tablet 5 mg PO BID Hold Instructions: pending follow-up with GI or Cardiology/CT surgery at Other Ambulatory Orders: Complete Blood Count Auto Diff (Routine) Timeframe: 5 Days Facility: [facility] - Location: Laboratory Ordered By: Frederic White Problem Reconciliation Problems Reviewed?: Yes Patient Discharge Instructions ACTIVITY: Continue current activity DIET: continue same diet and advance to your usual diet Additional Instructions: Please follow with gastroenterology, CT surgery, cardiology at as previously scheduled Patient Instructions: Anemia, Heart-Healthy Diet Print Language: Albanian Providers Primary Care Provider: Kiera Castro Admit Provider: Frederic White Attending Provider: Frederic White
[2025-04-10 08:00] VITALS: BP 104/55; PULSE 75; RESP 16; TEMP 36.6; O2SAT 100
[2025-04-10] MEDS: DOCUSATE SODIUM 100 MG CAPSULE PO (08:56)
[2025-04-10] MEDS: AMIODARONE 200MG TABLET 200 MG PO (08:56)
[2025-04-10] MEDS: FUROSEMIDE 40 MG TABLET PO (08:56)
[2025-04-10] MEDS: LISINOPRIL 20MG TABLET 40 MG PO (08:56)
[2025-04-10] MEDS: METOPROLOL TARTRATE 50MG TABLET 75 MG PO (08:56)
[2025-04-10] MEDS: PANTOPRAZOLE 40MG VIAL 40 MG IV (08:57)
--- NOTE | 2025-04-10 11:30 | PC.NURSE ---
dressing to coccyx changed; old packing removed, wound cleansed w/ns and repacked with 0.5in packing, covered with dry 4x4 and dressing
--- NOTE | 2025-04-12 14:56 | CARE MANAGER ---
Contacted patient related to hospital discharge. He states he is doing well. He denies questions or concerns and has his new medication. He has follow up appt with PCP on .
== END 2025-04-10 11:29 | disposition home or self-care (01) | DRG 378 ==
LOC: ER 03:21 → 2ND 03:53
PROVIDERS: Student in an Organized Health Care Education/Training Program; Surgery; Admitting Provider Internal Medicine Adolescent Medicine; Emergency Provider Emergency Medicine; PCP Nurse Practitioner Family; Visit Provider Internal Medicine Adolescent Medicine
DX: K28.4 Chronic or unspecified gastrojejunal ulcer with hemorrhage (principal); D62 Acute posthemorrhagic anemia; I50.22 Chronic systolic (congestive) heart failure; I25.10 Atherosclerotic heart disease of native coronary artery without angina pectoris; K21.9 Gastro-esophageal reflux disease without esophagitis; J44.9 Chronic obstructive pulmonary disease, unspecified; L05.91 Pilonidal cyst without abscess; E66.811 Obesity, class 1; I65.23 Occlusion and stenosis of bilateral carotid arteries; E78.2 Mixed hyperlipidemia; I48.0 Paroxysmal atrial fibrillation; I08.0 Rheumatic disorders of both mitral and aortic valves; I35.2 Nonrheumatic aortic (valve) stenosis with insufficiency; I11.0 Hypertensive heart disease with heart failure; Z95.2 Presence of prosthetic heart valve; Z95.1 Presence of aortocoronary bypass graft; Z68.29 Body mass index [BMI] 29.0-29.9, adult; Z87.891 Personal history of nicotine dependence; Z79.82 Long term (current) use of aspirin; Z79.01 Long term (current) use of anticoagulants; Z79.899 Other long term (current) drug therapy
CPT/HCPCS: 36415; 36430; 80053; 80061; 82962; 83735; 84100; 85025; 85610; 93005; 99285; 99291; J1756; J2470; J3475; P9016

== ENCOUNTER 2025-04-15 07:31 | Outpatient (CLI) | payer MEDICARE, OTHER, SELFPAY ==
[2025-04-15 07:48] LABS: Basophils # 0.1 K/mm3 (0-0.2); Basophils % 0.7 % (0.1-2.0); Eosinophils # 0.5 Kmm3 (0.0-0.4); Hematocrit 26.8 % (42.0-52.0); Hemoglobin 8.1 g/dL (14.1-18.0); Immature Granulocytes # 0.02 10^3uL; Immature Granulocytes % 0.3 %; Lymphocytes # 2.8 K/mm3 (0.7-4.5); Lymphocytes % 40.7 % (10-50); Mean Corpuscular HGB Conc 30.2 g/dL (31.8-35.4); Mean Corpuscular Hemoglobin 27.5 pg (27.0-31.2); Mean Corpuscular Volume 90.8 fl (80-94); Mean Platelet Volume 9.4 fl (7.4-10.4); Monocytes # 0.6 K/mm3 (0.1-1.0); Monocytes % 8.4 % (1.7-9.3); Neutrophils # 2.9 K/mm3 (1.8-7.8); Neutrophils % 42.9 % (37.0-80.0); Nucleated Red Blood Cells # 0 10^3/uL; Nucleated Red Blood Cells % 0 %; Platelet Count 208 K/mm3 (142-424); Red Blood Count 2.95 M/mm3 (4.60-6.20); Red Cell Distribution Width 17.6 % (11.5-17.5); Red Cell Distribution Width-SD 58.9 fL; White Blood Count 6.8 K/mm3 (4.8-10.8)
== END 2025-04-15 23:59 | disposition home or self-care (01) ==
LOC: LAB 07:33
PROVIDERS: PCP Nurse Practitioner Family; Visit Provider Internal Medicine Adolescent Medicine
DX: K92.2 Gastrointestinal hemorrhage, unspecified (principal); D64.9 Anemia, unspecified
CPT/HCPCS: 36415; 85025

== ENCOUNTER 2025-05-03 10:26 | Outpatient (CLI) | payer MEDICARE, OTHER, SELFPAY ==
--- OUTSIDE RECORDS SUMMARY | 2025-03-12 03:36 | XMS_ITS | Encounter Summary ---
Author Organization Healthcare Address [address] [id number] Care Team Providers Care Fireproof Door Assembler Name Role Phone Kiera Castro APRN Primary Care Provider Reason for Visit * Reason Comments Chest Pain * Auth/Cert (Routine) Specialty Diagnoses / Procedures Referred By Contac t Referred To Contact Diagnoses Atrial fibrillation (CMS/HCC) Gluteal abscess Elevated troponin Chest pain, unspecified type Consult cards - 3 wk post CABG, chest pain Lata Sahu MD [address] [address] Phone: tel: fax: [facility] Inpatient [address] [place] [address] Phone: tel: Referral ID Status Reason Start Date Expiration Date Visits Re quested Visits Authorized [id number] 1 1 Encounter Details Date Type Department Care Team (Latest Contact Info) Description 03/12/2025 3:36 AM EDT - 03/17/2025 2:43 PM EDT Hospital Encounter [facility] Inpatient [address] [place] [id number] Sloane Jones MD [address] [place] [address] Lata Sahu MD [address] [address] Gluteal abscess (Primary Dx); Chest [...] any time in the past 12 m [facility], were you homeless or living in a prison (including now)? No 04/06/2025 Utilities Answer Date Recorded In the past 12 months has th e [employer], gas, oil, or water [employer] threatened to shut off services in your [...] Month) No 03/31/2025 7:24 AM EDT Kiley Higigns RN 6. Suicidal Behavior (Lifetime) No 7:24 [...] needed for pain, headaches or fever. Under [place] law, monthly prescriptions (30 days) can be [...] if symptoms continue 1 each 03/02/2025 Tiotropium Coalmont Monohydrate (Spiriva Respimat) 2.5 MCG/ACT inhaler Inhale [...] Note Shelly Nelson 64 y.o. male CSN: [id number] Admission: 03/12/2025 3:36 AM Primary Problem: Atrial fibrillation (CMS/HCC) Primary Trimming Operator: Primary Caregiver: Self Assistance Available at Discharge: Current Outpatient/Agency/Support Group: DME Availability of Care Givers (#Hours): No assistance needed Family/Trimming Operator(s) Willingness Assessed to care for patient at home: Yes Family/Trimming Operator(s) Readiness Assessed to care for patient at [...] Bianca Rinaldi MD [address] [place] [address] Discharge Transportation: Transportation Anticipated: family or friend will provide Transportation Home at Discharge: Family/Friend will Provide Follow Up Transport: Transportation Needed to Follow up Appoinments: Family/Friend will Provide Additional Comments: Per primary team patient is medically appropriate for discharge. Cm [facility]. Confirmed with sister that she would be able to perform the dressing changes. Patient is agreeable with discharge plan. No CM/SW needs identified. Neighborsto transport upon discharge. Update: CM placed referral with [facility] for wound care supplies. Iris Worthington RN * Discharge Summary - Mellisa Tian APRN - 03/17/2025 11:09 AM EDT Hospitalization Admit Date/Time: 03/12/2025 3:36 AM Admitting Attending: Lata Sahu Discharge Date: 03/17/2025 Discharge Attending Physician: Lata Sahu MD PCP name and Address: Kiera Castro, ZANA [address] / [place] [address] Referring provider name and address: Bianca Rinaldi MD [address] [place] [address] Chief Concern, Brief History of Present Illness, and Hospital Course Mr. Shelly Nelson is a 64 year old male with PMH significant for hyperlipidemia, hypertension, COPD, GERD, carotid artery disease, tobacco abuse, cataracts, cervical radiculopathy, and CAD s/p CABG x4 on 02/21/25. He was discharged to home on 03/02/25. He presented to [facility] ED with chest pain that began 2 [...] needed for pain, headaches or fever. Under [place] law, monthly prescriptions (30 days) can be [...] mL topically 2 times a day. Tiotropium Coalmont Monohydrate 2.5 MCG/ACT inhaler Commonly known as: Spiriva Respimat Inhale 2 puffs daily. Where to Get Your Medications These medications were sent to [facility] - [place], [place] - [address] [facility] [address] [facility] [address] amoxicillin-clavulanate XR 1000-62.5 MG 12 hr tablet [...] Center 03/24/2025 9:30 AM Lata Sahu MD [facility] Test Results Pending At Discharge None Pertinent [...] Review Outcome: Ongoing, Progressing Flowsheets (Taken 03/16/2025 1021) Progress: improving Plan of Care Reviewed With: [...] BID, Master Nova MD, 100 mg at 03/16/25 0843 famotidine [...] mg, 0.08 mg, Intravenous, Once, Marily Garcia, MANAGER ROOM nitroglycerin (Nitrostat) SL tablet 0.4 mg, 0.4 [...] Sahu MD, 473 mL at 03/15/252046 Tiotropium Coalmont Monohydrate (Spiriva Respimat) 2.5 MCG/ACT inhaler 2 [...] STUDIES REVIEWED. FOR ALL STUDIES, SEE EHR [facility] 03/12/2025 CT abd/pelvis W contrast - Findings [...] CAD; HTN; HLD; COPD; carotid stenoses. At [facility] 01/2025, pt developed chest pain, SOB after of SO. This progressively worsened, and pt admitted to [facility] 02/13/2025 - 02/15/2025. Pt found to have [...] developed chest pressure and was readmitted to [facility] 03/11/2025 - 03/12/2025. 03/12/2025 CT showed RIGHT [...] arrhythmia, and pain Alternatives discussed: Rate-control medication [place] protocol: Procedure explained and questions answered to [...] well, no immediate complications Cosigned by Dimitrios Wrigth MD at 03/17/2025 8:03 AM EDT Associated [...] been discussed with the patient and/or their business banking representative. All questions answered and they agree [...] sodium hypochlorite, 1 Application, Irrigation, BID Tiotropium Coalmont Monohydrate, 2 puff, Inhalation, Daily PRN medications: [...] CT shows no VALE thrombus Cardiothoracic Surgery [phone] * Progress Notes - Iris Worthington RN - 03/16/2025 7:17 AM EDT Case Management Adult Initial Progress Note Shelly Nelson 64 y.o. male CSN: [id number] Admission: 03/12/2025 3:36 AM Primary Problem: Atrial fibrillation (CMS/HCC) Shopping Centre Manager reviewed chart to complete this Initial Case Management Assessment, patient known to team with most previous stay 02/16 to 03/02. PCP: Kiera Castro APRN Emergency Contact: Extended Emergency Contact Information Primary Emergency Contact: Ailyn Najera Mobile Relation: Sister Dining Car Server needed? No Secondary Emergency Contact: Hussain Nelson Mobile Relation: Brother Preferred language: Persian Dining Car Server needed? No Insurance: Primary Visit Coverage Payer Plan Sponsor Code Group Number Group Name [facility]ACEMENT [id number] Dual Complete Primary Visit Coverage Subscriber Subscriber ID Subscriber Name Subscriber SSN Subscriber Address [id number] Shelly Nelson Jr [id number] [place] [address] Secondary Visit Coverage Payer Plan Sponsor Code Group Number Group Name [facility] [place] Secondary Visit Coverage Subscriber Subscriber ID Subscriber Name Subscriber SSN Subscriber Address [id number] Shelly Nelson Jr [id number] [address] [place] [address] Patient information: Primary Caregiver: Self Support System: Immediate family, Friends Daily Living Activities: Functional Status: Independent Living Arrangements: Alone Type of Residence: Private residence, Single Level [address] [address] Current DME: Equipment Currently Used at Home: [...] Dialysis Services: n/a Living Will/Advance Directive/Power of Cream Hauler /Guardian: Unable to assess: No Have you [...] POA/LW/AD. Pt's NOK is sister Ailyn Najera ([phone]); pt also reports he has a brother. [...] reports pcp as Kiera Castro APRN with [facility] in [place]. Pt drives self to appointments. Pt reports sister will most likely be transport upon DC but may be another family member or friend. Pt has never worked with an [facility] and has never stayed anywhere overnight for physical rehab. Pt prefers [facility] in [place] as his pharmacy. Pt confirms insurance listed [...] ostomy eval and treat Coccyx Other (Comments) ([facility] [facility]) Once Comments: Treatment recommendation Question: Instructions: Answer: [...] 1227 Apply/Change Wound Dressing Coccyx Other (Comments) ([facility] [facility]) Routine Active Glen Sahu MD - Dressing [...] This progressively worsened, and pt admitted to [facility] 02/13/2025 - 02/15/2025. Pt found to have [...] developed chest pressure and was readmitted to [facility] 03/11/2025 - 03/12/2025. 03/12/2025 CT showed RIGHT [...] required), 2 g, Intravenous, q24h, Mellisa Tian MANAGER ROOM, Last Rate: 220 mL/hr at 03/15/25 0841, [...] Nightly, Master Nova MD, 17.2 mg at 03/14/25 2114 simethicone [...] mL, Intravenous, PRN, Master Nova MD Tiotropium [place] Monohydrate (Spiriva Respimat) 2.5 MCG/ACT inhaler 2 [...] MICRO: MICRO REVIEWED. FOR ALL STUDIES, SEE [facility] 02/21/2025 HIV christiana negative 02/21/2025 HCV christiana [...] STUDIES: STUDIES REVIEWED. FOR ALL STUDIES, SEE [facility] 03/12/2025 CT abd/pelvis W contrast - [...] CAD; HTN; HLD; COPD; carotid stenoses. At [facility] 01/2025, pt developed chest pain, SOB after of SO. This progressively worsened, and pt admitted to [facility] 02/13/2025 - 02/15/2025. Pt found to have [...] developed chest pressure and was readmitted to [facility] 03/11/2025 - 03/12/2025. 03/12/2025 CT showed RIGHT [...] his 4V CABG and bpAVR by Dr. aShu on 02/21/25. - However, his LVEF is [...] at this time. Please page the on-call anthropology faculty member ([phone]) with any further questions. SUBJECTIVE History Of [...] oz), SpO2 93%. Physical Exam Constitutional: Comments: Izkuopuelbh-ygp-yjhlbteob flatulent man laying comfortably in bed without [...] following studies: echocardiogram and ECG Refer to [facility] for most recent cardiac imaging findings. [...] patient and family/caregiver, communicating with other health childcare center administrator, care coordination, and entering clinical information in [...] sodium chloride, 10 mL, Intravenous, q12h Tiotropium Coalmont Monohydrate, 2 puff, Inhalation, Daily PRN medications: [...] assist with atrial fibrillation ratecontrol. Cardiothoracic Surgery [phone] * Ivonne Avendaño - Ashley Menon RN - 03/15/2025 7:59 AM EDT Images from the original note were not included. [id number] Atrial Fibrillation Atrial fibrillation is a condition [...] fainting Last Reviewed Date: 2022 00:00:00 ?? [id number] [employer]. All rights reserved. This information is not [...] ?? Natural and processed cheeses such as Yemeni, blue, mozzarella, and Bangladeshi Meat and protein substitutes Special instructions: ?? [...] ?? Oat meal ?? Whole wheat ?? Quincy ?? Pumpernickel ?? White ?? Raisin ?? Crackers prepared without butter, lard, coconut, or palm oil ?? Dry cereals that contain allowed fats ?? Rice and pasta prepared with allowed fats ?? Egg noodles (limit to ?? cup per day) ?? Icelandic ?? Telugu ?? Persian muffins ?? Pancakes, waffles, biscuits, and cornbread made with allowed ingredients ?? Flat bread ?? Ash crackers ?? Matzoh crackers ?? Whole grain or enriched cereals prepared with allowed oils ?? Wheat germ Avoid: ?? Egg or cheese bread ?? Butter rolls ?? Commercially prepared products: biscuits, muffins, sweet rolls, cornbread, pancakes and waffles,trinidadian toast, croissants ?? Noodles ?? Cheese crackers ?? Flavored crackers prepared with saturated fats ?? Any cereal prepared with saturated fat ?? Afghan noodles ?? Rice and pasta prepared with eggs, cream, or high fat cheese Fruits Choose: ?? Any fresh, frozen, canned, or dried fruit or juice ?? Avocado Vegetables Choose: ?? Any fresh, frozen, or canned vegetables ?? Potatoes prepared with allowed fat ?? Olives (limit to 10 small or 5 large per day) Avoid: ?? Buttered, creamed, or fried vegetables ?? [id number], commercially made ?? Vegetables prepared in a [...] sizes are listed below: ?? Nuts: The [place] Heart Association recommends including 5 servings of [...] avocado oil, etc.: 1 tablespoon o The [place] Heart Association recommends limiting oils to 3 [...] ingredients ?? Sorbet ?? Ice milk ?? Rothsay ?? Gum drops ?? Jelly beans ?? [...] saturated fats, cheese, and/or egg yolks ?? [place] chips ?? Potato chips and other snack [...] much from the food you eat. Use [employer] to Help Build Your Meals The Upload[employer] can help you plan and track your [...] from the original note were not included. 73541 Eating Heart-Healthy Foods Eating has a big [...] niels. Last Reviewed Date: 2022 00:00:00 ?? [id number] [employer]. All rights reserved. This information is not [...] arms away from your body. * [facility] Ashley Menon RN - 03/15/2025 7:58 AM EDT Images from the original note were not included. 13316 After Bypass Surgery: Reaching, Bending, and Lifting [...] your shoulders and hips in line. ?? mill labor supervisor the object and hold it close [...] directions. Last Reviewed Date: 2024 00:00:00 ?? [id number] [employer]. All rights reserved. This information is not intended as a substitute for professional medical care. Always follow your healthcare professional's instructions. * [facility] - Ashley Menon RN - 03/15/2025 7:58 AM EDT Images from the original note were not included. [id number] After Bypass Surgery: Getting Up and Out [...] do. Last Reviewed Date: 2024 00:00:00 ?? [id number] The [employer]. All rights reserved. This information is not intended as a substitute for professional medical care. Always follow your healthcare professional's instructions. * Discharge Instr - Other Orders - Ashley Menon RN - 03/15/2025 7:58 AM EDT Please arrive 30 minutes early for your appointment with Dr. Sahu Prior to your appointment, go to the radiology department on the 1st floor of the [facility] near [facility] for a chest x-ray. Then go [...] your incisions. Do NOT lift, push or hide puller 5 pounds for six weeks. Do [...] Ashley Menon CT Surgery Nurse Navigator at [phone] Saturday through Saturday 7am- 3:30pm [place] [phone] after 3:30 pm, weekends and holidays - ask for the CT surgeon receptionist telephone operator. * Care Plan - Anabelle Lugo RN [...] sodium chloride, 10 mL, Intravenous, q12h Tiotropium Coalmont Monohydrate, 2 puff, Inhalation, Daily PRN medications: [...] Continue current plan of care. Cardiothoracic Surgery [phone] * Care Plan - Alexia Chakraborty RN [...] sodium chloride, 10 mL, Intravenous, q12h Tiotropium Coal[place] Monohydrate, 2 puff, Inhalation, Daily PRN medications: [...] prn for gluteal abscess pain. Cardiothoracic Surgery [phone] * Significant Event - Jo Xiong MD - 03/12/2025 10:48 AM EDT SGE Update: Wound viewed on rounds this AM. Hemostatic, packing replaced. Patient able to offload. Recommendations - Wound care consultation - Continue offloading - No surgical debridement needs at this time SGE to sign off. Jo Xiong MD MPH General Surgery Resident [phone] * Consults - Roger Wheeler MD - 03/12/2025 6:42 AM EDTAssociated Order(s): Consult to Emergency General Surgery Images from the original note were not included. [facility] Department of Surgery Division of Acute [...] for CAD, HTN, COPD who presented to [facility] as a transfer from OSH for chest [...] History Administered Date(s) Administered Moderna COVID-19 Vaccine (Automatic Head Sawyer) 12+ years 03/29/2021, 04/26/2021 I have updated and confirmed the past medical, surgical, family and social history. Home Medications: Prior to Admission medications Medication Sig Start Date End Date Taking? Authorizing Provider acetaminophen (Tylenol) 325 MG tablet Take 2 tablets by mouth every 6 hours as needed for pain, headaches or fever. Under [place] law, monthly prescriptions (30 days) can be [...] stools 03/02/25 03/12/25 Marily Garcia APRN Tiotropium [place] Monohydrate (Spiriva Respimat) 2.5 MCG/ACT inhaler Inhale [...] for CAD, HTN, COPD who presented to [facility] as a transfer from OSH for chest [...] Cervical radiculopathy COPD (chronic obstructive pulmonary disease) ([facility]) Coronary artery disease GERD (gastroesophageal reflux disease) Heart valve disease Hypertension On mechanically assisted ventilation ([facility]) 02/21/2025 Intubated for procedure, arrived to ICU [...] needed for pain, headaches or fever. Under [place] law, monthly prescriptions (30 days) can be [...] for loose stools 20 tablet 0 Tiotropium [place] Monohydrate (Spiriva Respimat) 2.5 MCG/ACT inhaler Inhale [...] is a 64 y.o. male presented to [facility] ED with chest pain that began the [...] of the head 02/24/2025 Persistent atrial fibrillation ([facility]) 02/23/2025 S/P AVR 02/22/2025 Post-op pain 02/22/2025 Obstructive sleep apnea 02/21/2025 S/P CABG x 4 02/21/2025 Acute blood loss anemia 02/18/2025 Heart failure with mid-range ejection fraction (HFmEF) ([facility]) 02/17/2025 CAD, multiple vessel 02/16/2025 HLD (hyperlipidemia) 02/16/2025 HTN (hypertension) 02/16/2025 COPD (chronic obstructive pulmonary disease) ([facility]/HCC) 02/16/2025 Tobacco abuse disorder 02/16/2025 Incomplete right bundle branch block 02/16/2025 Cervical radiculopathy 02/16/2025 BPH (benign prostatic hyperplasia) 02/16/2025 Obesity (BMI 30-39.9) 02/16/2025 GERD (gastroesophageal reflux disease) 02/16/2025 Situational depression 02/16/2025 Edentulous 02/16/2025 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: Past 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: Diagnosis Date Abnormal ECG BPH (benign prostatic hyperplasia) Cervical radiculopathy COPD (chronic obstructive pulmonary disease) ([facility]) Coronary artery disease GERD (gastroesophageal reflux disease) Heart valve disease Hypertension On mechanically assisted ventilation ([facility]) 02/21/2025 Intubated for procedure, arrived to ICU [...] needed for pain, headaches or fever. Under [place] law, monthly prescriptions (30 days) can be [...] stools 03/02/25 03/12/25 Marily Garcia APRN Tiotropium [place] Monohydrate (Spiriva Respimat) 2.5 MCG/ACT inhaler Inhale [...] No treatment, delayed treatment and alternative treatment [place] protocol: Procedure explained and questions answered to [...] and oriented to person, place, and time. Bhumika Coma Scale Score: 15 ED Course & [...] from the sacral decubitus ulcer. Differential Diagnosis: ACS/TN, pericarditis, myocarditis, kayley syndrome, gluteal abscess, gluteal [...] (Not yet assigned) Acknowledged FREDDIE CHANDRA 03/12/25 0429 C-reactive protein STAT Final result SLOANE JONES [...] Cervical radiculopathy COPD (chronic obstructive pulmonary disease) ([facility]) Coronary artery disease GERD (gastroesophageal reflux disease) Heart valve disease Hypertension On mechanically assisted ventilation ([facility]) 02/21/2025 Intubated for procedure, arrived to ICU [...] Description 08/03/2025 12:40 PM EDT Office Visit [facility] [address] [place] [address] Dimitrios Wright MD [address] [place] [phone] Pending Results Name Type Priority Associated Diagnoses [...] 12:42 PM EDT Persistent atrial fibrillation (CMS/HCC) AK CARDIOVERSION, ELECTIVE;ADDRESSING 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 Routine 03/16/2025 12:42 PM EDT Persistent atrial [...] GRAM STAIN Routine 03/12/2025 6:52 AM EDT AK DRAIN SKIN ABSCESS COMPLIC Routine 03/12/2025 5:54 [...] MD on 03/17/2025 7:38 AM Marily Garcia MANAGER ROOM IMG XR PROCEDURES Final Resu lt * (ABNORMAL) N-Terminal Probnp, Plasma (03/17/2025 4:34 AM EDT) N-Terminal, PROBNP, Plasma 2,670(H) 0 - 899 pg/mL 03/17/2025 6:05 AM EDT [facility] Blood Venous blood specimen / Unknown Venipuncture / Unknown 03/17/2025 4:34 AM EDT 03/17/2025 5:25 AM EDT Marily Garcia MANAGER ROOM LAB BLOOD ORDERABLES Final R esult Performing Organization Address [facility]/ZIP Co de Phone Number [facility] [address] [place] [address] * Magnesium, Plasma (03/17/2025 4:34 AM EDT) Magnesium, Plasma 1.9 1.9 - 2.4 mg/dL 03/17/2025 6:05 AM EDT [facility] Blood Venous blood specimen / Unknown Venipuncture / Unknown 03/17/2025 4:34 AM EDT 03/17/2025 5:25 AM EDT us Marily Garcia MANAGER ROOM LAB BLOOD ORDERABLES Final R esult Performing Organization Address City/[facility] Co de Phone Number [facility] [address] [place] [address] * (ABNORMAL) Basic Metabolic Panel, Plasma (03/17/2025 4:34 AM EDT) Glucose, Plasma 80 74 - 99 mg/dL 03/17/2025 6:05 AM EDT [facility] BUN, Plasma 19 8 - 23 mg/dL 03/17/2025 6:05 AM EDT [facility] Creatinine, Plasma 0.85 0.70 - 1.20 mg/dL 03/17/2025 6:05 AM EDT [facility] BUN/Creatinine Ratio 22 03/17/2025 6:05 AM EDT [facility] Sodium, Plasma 131(L) 136 - 145 mmol/L 03/17/2025 6:05 AM EDT [facility] Potassium, Plasma 4.1 3.6 - 4.9 mmol/L 03/17/2025 6:05 AM EDT [facility] Chloride, Plasma 100 97 - 107 mmol/L 03/17/2025 6:05 AM EDT [facility] CO2, Plasma 20(L) 22 - 29 mmol/L 03/17/2025 6:05 AM EDT [facility] Anion Gap 11 6 - 16 mmol/L 03/17/2025 6:05 AM EDT [facility] Total Calcium, Plasma 8.0(L) 8.9 - 10.2 mg/dL 03/17/2025 6:05 AM EDT [facility] eGFRcr 95.8 mL/min/1.7 3m*2 03/17/2025 6:05 AM EDT [facility] Comment:Reported eGFRcr in m L/min/1.73m2 is based the CKD-EPI 2020 equation that does not use a race coefficient. Blood Venous blood specimen / Unknown Venipuncture / Unknown 03/17/2025 4:34 AM EDT 03/17/2025 5:25 AM EDT us Marily Garcia MANAGER ROOM LAB BLOOD ORDERABLES Final R esult [facility] [address] [place] [address] * (ABNORMAL) CBC W/O Differential (03/17/2025 4:34 AM EDT) WBC Count 8.24 3.70 - 10.30 10*3/uL LAB HEMATOLOGY METHOD 03/17/2025 5:55 AM EDT [facility] RBC Count 2.70(L) 4.60 - 6.10 10*6/uL LAB HEMATOLOGY METHOD 03/17/2025 5:55 AM EDT [facility] HGB 7.6(L) 13.7 - 17.5 g/dL LAB HEMATOLOGY METHOD 03/17/2025 5:55 AM EDT [facility] HCT 25.0(L) 40.0 - 51.0 % LAB HEMATOLOGY METHOD 03/17/2025 5:55 AM EDT [facility] Platelet Count 214 155 - 369 10*3/uL LAB HEMATOLOGY METHOD 03/17/2025 5:55 AM EDT [facility] MCV 93 79 - 98 fL LAB HEMATOLOGY METHOD 03/17/2025 5:55 AM EDT [facility] MCH 28.1 26.0 - 32.0 pg LAB HEMATOLOGY METHOD 03/17/2025 5:55 AM EDT [facility] MCHC 30.4(L) 30.7 - 35.5 g/dL LAB HEMATOLOGY METHOD 03/17/2025 5:55 AM EDT [facility] RDW 19.4(H) 11.5 - 14.5 % LAB HEMATOLOGY METHOD 03/17/2025 5:55 AM EDT [facility] MPV 10.2 8.8 - 12.5 fL LAB HEMATOLOGY METHOD 03/17/2025 5:55 AM EDT [facility] nRBC 0.0 <=0.0 per 100 WBCs LAB HEMATOLOGY METHOD 03/17/2025 5:55 AM EDT [facility] Blood Venous blood specimen / Unknown Venipuncture / Unknown 03/17/2025 4:34 AM EDT 03/17/2025 5:27 AM EDT us Marily Garcia APRN LAB BLOOD ORDERABLES Final R esult [facility] [address] [place] [address] * [place] CARDIOVERSION, ELECTIVE;ADDRESSING 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, HC CARDIOVERSION ELECTIVE ARRHYTHMIA EXTERNAL (03/16/2025 12:42 PM EDT) Narrative Dimitrios Wright MD - 03/16/2025 12:42 PM EDT Dimitrios Wright MD 03/17/2025 8:03 AM Electrical Cardioversion Performed by: Negrito Galvan MD Authorized by: Lata Sahu MD Consent: Consent obtained: Written Consent given by: Patient Risks, benefits, and alternatives were discussed: yes Risks discussed: Cutaneous burn, induced arrhythmia, and pain Alternatives discussed: Rate-control medication [place] protocol: Procedure explained and questions answered to [...] was reviewed interactively on an advanced workstation ([employer]) capable of 2 and 3 dimensional displays [...] source 192 MDCT scanner ([employer], [employer])was used for data acquisition. Bolus tracking [...] Data was reviewed interactively on an advanced workstation([employer]) capable of 2 and 3 dimensional displays [...] on 03/16/2025 10:24 AM us Mellisa Tian MANAGER ROOM IMG CT PROCEDURES Final Result * XR [...] - 899 pg/mL 03/16/2025 5:27 AM EDT [facility] Blood Venous blood specimen / Unknown Venipuncture / Unknown 03/16/2025 4:31 AM EDT 03/16/2025 4:57 AM EDT Mary Ann SANDOVAL LAB BLOOD ORDERABLES Final Result Performing Organization Address City/[facility]/ZIP Co de Phone Number [facility] [address] [place] [address] * Magnesium (03/16/2025 4:31 AM EDT) Magnesium, Plasma 1.9 1.9 - 2.4 mg/dL 03/16/2025 5:27 AM EDT [facility] Blood Venous blood specimen / Unknown Venipuncture / Unknown 03/16/2025 4:31 AM EDT 03/16/2025 4:57 AM EDT Mellisa Tian APRN LAB BLOOD ORDERABLES Final Res ult [facility] [address] [place] [address] * (ABNORMAL) Comprehensive metabolic panel (03/16/2025 4:31 AM EDT) Glucose, Plasma 135(H) 74 - 99 mg/dL 03/16/2025 5:27 AM EDT [facility] BUN, Plasma 20 8 - 23 mg/dL 03/16/2025 5:27 AM EDT [facility] Creatinine, Plasma 0.82 0.70 - 1.20 mg/dL 03/16/2025 5:27 AM EDT [facility] BUN/Creatinine Ratio 24 03/16/2025 5:27 AM EDT [facility] Sodium, Plasma 131(L) 136 - 145 mmol/L 03/16/2025 5:27 AM EDT [facility] Potassium, Plasma 4.1 3.6 - 4.9 mmol/L 03/16/2025 5:27 AM EDT [facility] Comment:Hemolyzed, result ma y be falsely increased. Chloride, Plasma 100 97 - 107 mmol/L 03/16/2025 5:27 AM EDT [facility] CO2, Plasma 21(L) 22 - 29 mmol/L 03/16/2025 5:27 AM EDT [facility] Anion Gap 10 6 - 16 mmol/L 03/16/2025 5:27 AM EDT [facility] Total Calcium, Plasma 8.1(L) 8.9 - 10.2 mg/dL 03/16/2025 5:27 AM EDT [facility] Total Protein 5.4(L) 6.3 - 7.9 g/dL 03/16/2025 5:27 AM EDT [facility] Albumin, Plasma 2.6(L) 3.5 - 5.2 g/dL 03/16/2025 5:27 AM EDT [facility] AST, Plasma 50 10 - 50 U/L 03/16/2025 5:27 AM EDT [facility] Comment:Hemolyzed, result ma y be falsely increased. ALT, Plasma 33 10 - 50 U/L 03/16/2025 5:27 AM EDT [facility] Alkaline Phosphatase, Plasma 88 40 - 115 U/L 03/16/2025 5:27 AM EDT [facility] Total Bilirubin, Plasma 0.9 0.2 - 1.1 mg/dL 03/16/2025 5:27 AM EDT [facility] eGFRcr 96.9 mL/min/1.7 3m*2 03/16/2025 5:27 AM EDT [facility] Comment:Reported eGFRcr in m L/min/1.73m2 is based the CKD-EPI 2020 equation that does not use a race coefficient. Blood Venous blood specimen / Unknown Venipuncture / Unknown 03/16/2025 4:31 AM EDT 03/16/2025 4:57 AM EDT us Mellisa Tian APRN LAB BLOOD ORDERABLES Final Res ult [facility] [address] [place] [address] * (ABNORMAL) Hemogram (CBC) (03/16/2025 4:31 AM EDT) WBC Count 8.58 3.70 - 10.30 10*3/uL LAB HEMATOLOGY METHOD 03/16/2025 5:07 AM EDT [facility] RBC Count 2.78(L) 4.60 - 6.10 10*6/uL LAB HEMATOLOGY METHOD 03/16/2025 5:07 AM EDT [facility] HGB 7.9(L) 13.7 - 17.5 g/dL LAB HEMATOLOGY METHOD 03/16/2025 5:07 AM EDT [facility] HCT 25.2(L) 40.0 - 51.0 % LAB HEMATOLOGY METHOD 03/16/2025 5:07 AM EDT [facility] Platelet Count 227 155 - 369 10*3/uL LAB HEMATOLOGY METHOD 03/16/2025 5:07 AM EDT [facility] MCV 91 79 - 98 fL LAB HEMATOLOGY METHOD 03/16/2025 5:07 AM EDT [facility] MCH 28.4 26.0 - 32.0 pg LAB HEMATOLOGY METHOD 03/16/2025 5:07 AM EDT [facility] MCHC 31.3 30.7 - 35.5 g/dL LAB HEMATOLOGY METHOD 03/16/2025 5:07 AM EDT [facility] RDW 19.2(H) 11.5 - 14.5 % LAB HEMATOLOGY METHOD 03/16/2025 5:07 AM EDT [facility] MPV 9.9 8.8 - 12.5 fL LAB HEMATOLOGY METHOD 03/16/2025 5:07 AM EDT [facility] nRBC 0.0 <=0.0 per 100 WBCs LAB HEMATOLOGY METHOD 03/16/2025 5:07 AM EDT [facility] Blood Venous blood specimen / Unknown Venipuncture / Unknown 03/16/2025 4:31 AM EDT 03/16/2025 4:59 AM EDT us Mellisa Tian MANAGER ROOM LAB BLOOD ORDERABLES Final Res ult [facility] [address] [place] [address] * XR Chest 1 View (03/15/2025 4:34 [...] 115.2(H) <=8.0 mg/L 03/15/2025 9:00 PM EDT [facility] Blood Venous blood specimen / Unknown Venipuncture / Unknown 03/15/2025 3:59 AM EDT 03/15/2025 4:08 AM EDT Narrative [facility] - 03/15/2025 9:00 PM EDT This CRP test is appropriate for assessment of infection, systemic inflammation and/or tissue injury. To assess cardiovascular disease risk order high sensitivity CRP (CRPH). Mary Ann SANDOVAL LAB BLOOD ORDERABLES Final Result Performing Organization Address City/[facility]/ZIP Co de Phone Number [facility] [address] [place] [address] * Magnesium (03/15/2025 3:59 AM EDT) Magnesium, Plasma 1.9 1.9 - 2.4 mg/dL 03/15/2025 4:40 AM EDT [facility] Blood Venous blood specimen / Unknown Venipuncture / Unknown 03/15/2025 3:59 AM EDT 03/15/2025 4:08 AM EDT Mellisa Tian APRN LAB BLOOD ORDERABLES Final Res ult [facility] [address] [place] [address] * (ABNORMAL) Comprehensive metabolic panel (03/15/2025 3:59 AM EDT) Glucose, Plasma 91 74 - 99 mg/dL 03/15/2025 4:40 AM EDT [facility] BUN, Plasma 24(H) 8 - 23 mg/dL 03/15/2025 4:40 AM EDT [facility] Creatinine, Plasma 0.84 0.70 - 1.20 mg/dL 03/15/2025 4:40 AM EDT [facility] BUN/Creatinine Ratio 29 03/15/2025 4:40 AM EDT [facility] Sodium, Plasma 130(L) 136 - 145 mmol/L 03/15/2025 4:40 AM EDT [facility] Potassium, Plasma 4.1 3.6 - 4.9 mmol/L 03/15/2025 4:40 AM EDT [facility] Chloride, Plasma 98 97 - 107 mmol/L 03/15/2025 4:40 AM EDT [facility] CO2, Plasma 23 22 - 29 mmol/L 03/15/2025 4:40 AM EDT [facility] Anion Gap 9 6 - 16 mmol/L 03/15/2025 4:40 AM EDT [facility] Total Calcium, Plasma 8.3(L) 8.9 - 10.2 mg/dL 03/15/2025 4:40 AM EDT [facility] Total Protein 5.7(L) 6.3 - 7.9 g/dL 03/15/2025 4:40 AM EDT [facility] Albumin, Plasma 2.9(L) 3.5 - 5.2 g/dL 03/15/2025 4:40 AM EDT [facility] AST, Plasma 39 10 - 50 U/L 03/15/2025 4:40 AM EDT [facility] Comment:Hemolyzed, result ma y be falsely increased. ALT, Plasma 28 10 - 50 U/L 03/15/2025 4:40 AM EDT [facility] Alkaline Phosphatase, Plasma 78 40 - 115 U/L 03/15/2025 4:40 AM EDT [facility] Total Bilirubin, Plasma 0.9 0.2 - 1.1 mg/dL 03/15/2025 4:40 AM EDT [facility] eGFRcr 96.2 mL/min/1.7 3m*2 03/15/2025 4:40 AM EDT [facility] Comment:Reported eGFRcr in m L/min/1.73m2 is based the CKD-EPI 2020 equation that does not use a race coefficient. Blood Venous blood specimen / Unknown Venipuncture / Unknown 03/15/2025 3:59 AM EDT 03/15/2025 4:08 AM EDT us Mellisa Tian MANAGER ROOM LAB BLOOD ORDERABLES Final Res ult [facility] [address] [place] [address] * (ABNORMAL) Hemogram (CBC) (03/15/2025 3:59 AM EDT) WBC Count 11.15(H) 3.70 - 10.30 10*3/uL LAB HEMATOLOGY METHOD 03/15/2025 4:23 AM EDT [facility] RBC Count 2.94(L) 4.60 - 6.10 10*6/uL LAB HEMATOLOGY METHOD 03/15/2025 4:23 AM EDT [facility] HGB 8.3(L) 13.7 - 17.5 g/dL LAB HEMATOLOGY METHOD 03/15/2025 4:23 AM EDT [facility] HCT 26.6(L) 40.0 - 51.0 % LAB HEMATOLOGY METHOD 03/15/2025 4:23 AM EDT [facility] Platelet Count 222 155 - 369 10*3/uL LAB HEMATOLOGY METHOD 03/15/2025 4:23 AM EDT [facility] MCV 91 79 - 98 fL LAB HEMATOLOGY METHOD 03/15/2025 4:23 AM EDT [facility] MCH 28.2 26.0 - 32.0 pg LAB HEMATOLOGY METHOD 03/15/2025 4:23 AM EDT [facility] MCHC 31.2 30.7 - 35.5 g/dL LAB HEMATOLOGY METHOD 03/15/2025 4:23 AM EDT [facility] RDW 18.9(H) 11.5 - 14.5 % LAB HEMATOLOGY METHOD 03/15/2025 4:23 AM EDT [facility] MPV 9.9 8.8 - 12.5 fL LAB HEMATOLOGY METHOD 03/15/2025 4:23 AM EDT [facility] nRBC 0.2(H) <=0.0 per 100 WBCs LAB HEMATOLOGY METHOD 03/15/2025 4:23 AM EDT [facility] Blood Venous blood specimen / Unknown Venipuncture / Unknown 03/15/2025 3:59 AM EDT 03/15/2025 4:10 AM EDT us Mellisa Tian APRN LAB BLOOD ORDERABLES Final Res ult [facility] [address] [place] [address] * XR Chest 1 View (03/14/2025 5:22 [...] - 2.4 mg/dL 03/14/2025 6:07 AM EDT [facility] Blood Venous blood specimen / Unknown Venipuncture / Unknown 03/14/2025 5:05 AM EDT 03/14/2025 5:15 AM EDT Mellisa Tian MANAGER ROOM LAB BLOOD ORDERABLES Final Res ult [facility] [address] [place] [address] * (ABNORMAL) Comprehensive metabolic panel (03/14/2025 5:05 AM EDT) Glucose, Plasma 97 74 - 99 mg/dL 03/14/2025 6:07 AM EDT [facility] BUN, Plasma 32(H) 8 - 23 mg/dL 03/14/2025 6:07 AM EDT [facility] Creatinine, Plasma 0.86 0.70 - 1.20 mg/dL 03/14/2025 6:07 AM EDT [facility] BUN/Creatinine Ratio 37 03/14/2025 6:07 AM EDT [facility] Sodium, Plasma 131(L) 136 - 145 mmol/L 03/14/2025 6:07 AM EDT [facility] Potassium, Plasma 4.3 3.6 - 4.9 mmol/L 03/14/2025 6:07 AM EDT [facility] Chloride, Plasma 99 97 - 107 mmol/L 03/14/2025 6:07 AM EDT [facility] CO2, Plasma 20(L) 22 - 29 mmol/L 03/14/2025 6:07 AM EDT [facility] Anion Gap 12 6 - 16 mmol/L 03/14/2025 6:07 AM EDT [facility] Total Calcium, Plasma 8.4(L) 8.9 - 10.2 mg/dL 03/14/2025 6:07 AM EDT [facility] Total Protein 5.6(L) 6.3 - 7.9 g/dL 03/14/2025 6:07 AM EDT [facility] Albumin, Plasma 2.9(L) 3.5 - 5.2 g/dL 03/14/2025 6:07 AM EDT [facility] AST, Plasma 32 10 - 50 U/L 03/14/2025 6:07 AM EDT [facility] Comment:Hemolyzed, result ma y be falsely increased. ALT, Plasma 26 10 - 50 U/L 03/14/2025 6:07 AM EDT [facility] Alkaline Phosphatase, Plasma 81 40 - 115 U/L 03/14/2025 6:07 AM EDT [facility] Total Bilirubin, Plasma 1.1 0.2 - 1.1 mg/dL 03/14/2025 6:07 AM EDT [facility] eGFRcr 95.5 mL/min/1.7 3m*2 03/14/2025 6:07 AM EDT [facility] Comment:Reported eGFRcr in m L/min/1.73m2 is based the CKD-EPI 2020 equation that does not use a race coefficient. Blood Venous blood specimen / Unknown Venipuncture / Unknown 03/14/2025 5:05 AM EDT 03/14/2025 5:15 AM EDT Mellisa Tian APRN LAB BLOOD ORDERABLES Final Res ult [facility] [address] [place] [address] * (ABNORMAL) Hemogram (CBC) (03/14/2025 5:05 AM EDT) WBC Count 13.12(H) 3.70 - 10.30 10*3/uL LAB HEMATOLOGY METHOD 03/14/2025 5:23 AM EDT [facility] RBC Count 3.11(L) 4.60 - 6.10 10*6/uL LAB HEMATOLOGY METHOD 03/14/2025 5:23 AM EDT [facility] HGB 8.6(L) 13.7 - 17.5 g/dL LAB HEMATOLOGY METHOD 03/14/2025 5:23 AM EDT [facility] HCT 27.5(L) 40.0 - 51.0 % LAB HEMATOLOGY METHOD 03/14/2025 5:23 AM EDT [facility] Platelet Count 231 155 - 369 10*3/uL LAB HEMATOLOGY METHOD 03/14/2025 5:23 AM EDT [facility] MCV 88 79 - 98 fL LAB HEMATOLOGY METHOD 03/14/2025 5:23 AM EDT [facility] MCH 27.7 26.0 - 32.0 pg LAB HEMATOLOGY METHOD 03/14/2025 5:23 AM EDT [facility] MCHC 31.3 30.7 - 35.5 g/dL LAB HEMATOLOGY METHOD 03/14/2025 5:23 AM EDT [facility] RDW 18.9(H) 11.5 - 14.5 % LAB HEMATOLOGY METHOD 03/14/2025 5:23 AM EDT [facility] MPV 10.3 8.8 - 12.5 fL LAB HEMATOLOGY METHOD 03/14/2025 5:23 AM EDT [facility] nRBC 0.3(H) <=0.0 per 100 WBCs LAB HEMATOLOGY METHOD 03/14/2025 5:23 AM EDT [facility] Blood Venous blood specimen / Unknown Venipuncture / Unknown 03/14/2025 5:05 AM EDT 03/14/2025 5:15 AM EDT us Mellisa Tian APRN LAB BLOOD ORDERABLES Final Res ult [facility] [address] [place] [address] * Prepare Leukocyte Reduced RBC: 1 Units (03/13/2025 12:28 PM EDT) Product Code C6121N70 CH BLOO D BANK Dispense Status Transfused BLOOD BANK Blood Expiration Date [id number] BLOOD BANK Unit Number [id number] B LOOD BANK Product Blood Type 5100 BLOOD BANK Blood Type O+ BLOOD BANK Crossmatch Compatible BLOOD BANK Other us Mellisa S Tian MANAGER ROOM BLOOD BANK PRODUCT ORDERABLES Final Result BLOOD BANK [address] [place] [address], * Magnesium (03/13/2025 4:37 AM EDT) Pathologist [facility] Magnesium, Plasma 1.9 1.9 - 2.4 mg/dL 03/13/2025 5:13 AM EDT [facility] Blood Venous blood specimen / Unknown Venipuncture / Unknown 03/13/2025 4:37 AM EDT 03/13/2025 4:44 AM EDT Mellisa Tian APRN LAB BLOOD ORDERABLES Final Res ult [facility] [address] [place] [address] * (ABNORMAL) Comprehensive metabolic panel (03/13/2025 4:37 AM EDT) Glucose, Plasma 94 74 - 99 mg/dL 03/13/2025 5:13 AM EDT [facility] BUN, Plasma 29(H) 8 - 23 mg/dL 03/13/2025 5:13 AM EDT [facility] Creatinine, Plasma 0.97 0.70 - 1.20 mg/dL 03/13/2025 5:13 AM EDT [facility] BUN/Creatinine Ratio 30 03/13/2025 5:13 AM EDT [facility] Sodium, Plasma 134(L) 136 - 145 mmol/L 03/13/2025 5:13 AM EDT [facility] Potassium, Plasma 4.0 3.6 - 4.9 mmol/L 03/13/2025 5:13 AM EDT [facility] Chloride, Plasma 99 97 - 107 mmol/L 03/13/2025 5:13 AM EDT [facility] CO2, Plasma 22 22 - 29 mmol/L 03/13/2025 5:13 AM EDT [facility] Anion Gap 13 6 - 16 mmol/L 03/13/2025 5:13 AM EDT [facility] Total Calcium, Plasma 8.3(L) 8.9 - 10.2 mg/dL 03/13/2025 5:13 AM EDT [facility] Total Protein 6.0(L) 6.3 - 7.9 g/dL 03/13/2025 5:13 AM EDT [facility] Albumin, Plasma 3.1(L) 3.5 - 5.2 g/dL 03/13/2025 5:13 AM EDT [facility] AST, Plasma 39 10 - 50 U/L 03/13/2025 5:13 AM EDT [facility] Comment:Hemolyzed, result ma y be falsely increased. ALT, Plasma 25 10 - 50 U/L 03/13/2025 5:13 AM EDT [facility] Alkaline Phosphatase, Plasma 77 40 - 115 U/L 03/13/2025 5:13 AM EDT [facility] Total Bilirubin, Plasma 1.3(H) 0.2 - 1.1 mg/dL 03/13/2025 5:13 AM EDT [facility] eGFRcr 86.1 mL/min/1.7 3m*2 03/13/2025 5:13 AM EDT [facility] Comment:Reported eGFRcr in m L/min/1.73m2 is based the CKD-EPI 2020 equation that does not use a race coefficient. Blood Venous blood specimen / Unknown Venipuncture / Unknown 03/13/2025 4:37 AM EDT 03/13/2025 4:44 AM EDT us Mellisa Tian APRN LAB BLOOD ORDERABLES Final Res ult [facility] [address] [place] [address] * (ABNORMAL) Hemogram (CBC) (03/13/2025 4:37 AM EDT) WBC Count 11.07(H) 3.70 - 10.30 10*3/uL LAB HEMATOLOGY METHOD 03/13/2025 4:53 AM EDT [facility] RBC Count 2.81(L) 4.60 - 6.10 10*6/uL LAB HEMATOLOGY METHOD 03/13/2025 4:53 AM EDT [facility] HGB 8.0(L) 13.7 - 17.5 g/dL LAB HEMATOLOGY METHOD 03/13/2025 4:53 AM EDT [facility] HCT 24.8(L) 40.0 - 51.0 % LAB HEMATOLOGY METHOD 03/13/2025 4:53 AM EDT [facility] Platelet Count 237 155 - 369 10*3/uL LAB HEMATOLOGY METHOD 03/13/2025 4:53 AM EDT [facility] MCV 88 79 - 98 fL LAB HEMATOLOGY METHOD 03/13/2025 4:53 AM EDT [facility] MCH 28.5 26.0 - 32.0 pg LAB HEMATOLOGY METHOD 03/13/2025 4:53 AM EDT [facility] MCHC 32.3 30.7 - 35.5 g/dL LAB HEMATOLOGY METHOD 03/13/2025 4:53 AM EDT [facility] RDW 19.4(H) 11.5 - 14.5 % LAB HEMATOLOGY METHOD 03/13/2025 4:53 AM EDT [facility] MPV 9.8 8.8 - 12.5 fL LAB HEMATOLOGY METHOD 03/13/2025 4:53 AM EDT [facility] nRBC 0.3(H) <=0.0 per 100 WBCs LAB HEMATOLOGY METHOD 03/13/2025 4:53 AM EDT [facility] Blood Venous blood specimen / Unknown Venipuncture / Unknown 03/13/2025 4:37 AM EDT 03/13/2025 4:44 AM EDT us Mellisa Tian APRN LAB BLOOD ORDERABLES Final Res ult [facility] [address] [place] [address] * XR Chest 1 View (03/13/2025 4:33 [...] MD on 03/13/2025 1:25 PM Mellisa Tian MANAGER ROOM IMG XR PROCEDURES Final Result * (ABNORMAL) CBC (03/12/2025 10:06 PM EDT) WBC Count 12.32(H) 3.70 - 10.30 10*3/uL LAB HEMATOLOGY METHOD 03/12/2025 10:18 PM EDT [facility] RBC Count 2.73(L) 4.60 - 6.10 10*6/uL LAB HEMATOLOGY METHOD 03/12/2025 10:18 PM EDT [facility] HGB 7.6(L) 13.7 - 17.5 g/dL LAB HEMATOLOGY METHOD 03/12/2025 10:18 PM EDT [facility] HCT 24.5(L) 40.0 - 51.0 % LAB HEMATOLOGY METHOD 03/12/2025 10:18 PM EDT [facility] Platelet Count 226 155 - 369 10*3/uL LAB HEMATOLOGY METHOD 03/12/2025 10:18 PM EDT [facility] MCV 90 79 - 98 fL LAB HEMATOLOGY METHOD 03/12/2025 10:18 PM EDT [facility] MCH 27.8 26.0 - 32.0 pg LAB HEMATOLOGY METHOD 03/12/2025 10:18 PM EDT [facility] MCHC 31.0 30.7 - 35.5 g/dL LAB HEMATOLOGY METHOD 03/12/2025 10:18 PM EDT [facility] RDW 19.3(H) 11.5 - 14.5 % LAB HEMATOLOGY METHOD 03/12/2025 10:18 PM EDT [facility] MPV 10.1 8.8 - 12.5 fL LAB HEMATOLOGY METHOD 03/12/2025 10:18 PM EDT [facility] nRBC 0.3(H) <=0.0 per 100 WBCs LAB HEMATOLOGY METHOD 03/12/2025 10:18 PM EDT [facility] Blood Venous blood specimen / Unknown Venipuncture / Unknown 03/12/2025 10:06 PM EDT 03/12/2025 10:11 PM EDT Lata Sahu MD LAB BLOOD ORDERABLES Final Resu lt [facility] [address] [place] [address] * Transfuse RBC (03/12/2025 5:30 PM EDT) Mellisa Tian APRN BLOOD TRANSFUSION ORDERABLES F inal Result * Transfuse RBC: 1 Units (03/12/2025 5:30 PM EDT) Mellisa Tian APRN BLOOD TRANSFUSION ORDERABLES F inal Result * (ABNORMAL) Iron & Total Iron Binding Capacity, Plasma (Includes Transferrin) (03/12/2025 2:21 PM EDT) Iron, Plasma 26(L) 50 - 170 ug/dL 03/12/2025 3:44 PM EDT [facility] Transferrin, Plasma 248 200 - 360 mg/dL 03/12/2025 3:44 PM EDT [facility] Total Iron Binding Capacity, Plasma 310 240 - 450 ug/mL 03/12/2025 3:44 PM EDT [facility] Transferrin Saturation 8(L) 14 - 50 % 03/12/2025 3:44 PM EDT [facility] Blood Venous blood specimen / Unknown Venipuncture / Unknown 03/12/2025 2:21 PM EDT 03/12/2025 2:47 PM EDT Mellisa Tian APRN LAB BLOOD ORDERABLES Final Res ult [facility] [address] [place] [address] * Type and screen (03/12/2025 2:21 PM [...] TEST ORDERABLES Final Result Performing Organization Address [facility] de Phone Number BLOOD BANK [address] [place] [address], [place] * Prepare Leukocyte Reduced RBC: 1 Units (03/12/2025 1:01 PM EDT) Product Code [id number] CH BLOO D BANK Dispense Status Transfused BLOOD BANK Blood Expiration Date [id number] BLOOD BANK Unit Number [id number] CH B LOOD BANK Product Blood Type 5100 BLOOD BANK Blood Type O+ BLOOD BANK Crossmatch Compatible BLOOD BANK Other Mellisa Tian APRN BLOOD BANK PRODUCT ORDERABLES Final Result Performing Organization Address [facility]/ZIP Co de Phone Number BLOOD BANK [address] [place] [address], [place] * ECHO, ADULT TRANSTHORACIC COMPLETE (03/12/2025 [...] Root Diam 35 mm GUILLERMINA ISCV PA AK(ACCEL) 25.9 mmHg GUILLERMINA ISCV LVLs ap2 8.1 mm GUILLERMINA ISCV [...] WOUND Light Growth 03/16/2025 10:40 AM EDT [facility] CULTURE READING WOUND 1+ Biotype 1 Escherichia coli(A) DUSTIN 03/16/2025 10:40 AM EDT [facility] Comment: This isolate has been identified using the FDA Approved [employer] [place] System The organism value for this result has been updated. These results have been appended to the previously preliminary verified report. Edited result: Previously reported as Gram Negative Cam on 03/14/2025 at 0735 EDT. CULTURE READING WOUND 1+ Schaalia turicensis (formerly known as Actinomyces turicensis)(A) DUSTIN 03/16/2025 10:40 AM EDT [facility] Comment: This isolate has been identified using the FDA Approved [employer]DI [employer]opharm[employer] CA System The organism value for this result has been updated. These results have been appended to the previously preliminary verified report. CULTURE READING WOUND 1+ Biotype 2 Escherichia coli(A) DUSTIN 03/16/2025 10:40 AM EDT [facility] Comment: The organism value for this result has been updated. These results have been appended to the previously preliminary verified report. Edited result: Previously reported as Gram Negative Cam on 03/15/2025 at 1158 EDT. Gram Stain Result Moderate Polymorphonuclear leukocytes(A) 03/16/2025 10:40 AM EDT [facility] Gram Stain Result Moderate Gram positive cocci in pairs(A) 03/16/2025 10:40 AM EDT [facility] Gram Stain Result Few Gram negative diplococci(A) 03/16/2025 10:40 AM EDT [facility] Swab Skin and/or subcutaneous tissue structure [...] L ORDERABLES Final Result Performing Organization Address [facility] de Phone Number [facility] [address] [place] [address] * (ABNORMAL) Troponin T, High Sensitivity, 2 Hour, Plasma (03/12/2025 6:52 AM EDT) Troponin T, High Sensitivity, 2 Hour 108(H) <19 ng/L 03/12/2025 7:22 AM EDT [facility] Troponin Delta 5 <10 ng/L 03/12/2025 7:22 AM EDT [facility] Troponin Delta Interpretation Not Significant 03/12/2025 7:22 AM EDT [facility] Comment:Not Significant. No acute change in troponin observed between the baseline and 2 hour samples. Blood Venous blood specimen / Unknown Venipuncture / Unknown 03/12/2025 6:52 AM EDT 03/12/2025 6:55 AM EDT us Sloane Baum LAB BLOOD ORDERABLES Final Resul t Performing Organization Address [facility] Co de Phone Number [facility] [address] [place] [address] * AK DRAIN SKIN ABSCESS COMPLIC (03/12/2025 5:54 AM [...] No treatment, delayed treatment and alternative treatment [place] protocol: Procedure explained and questions answered to [...] 44.9(H) <=8.0 mg/L 03/12/2025 4:45 AM EDT [facility] Blood Venous blood specimen / Unknown Venipuncture / Unknown 03/12/2025 3:59 AM EDT 03/12/2025 4:04 AM EDT Narrative [facility] - 03/12/2025 4:45 AM EDT This CRP test is appropriate for assessment of infection, systemic inflammation and/or tissue injury. To assess cardiovascular disease risk order high sensitivity CRP (CRPH). Result Teresa Baum LAB BLOOD ORDERABLES Final Resul t Performing Organization Address City/[facility]/[place] [address] * (ABNORMAL) Lipase (03/12/2025 3:59 AM EDT) Lipase, Plasma 17(L) 19 - 63 U/L 03/12/2025 4:35 AM EDT [facility] Blood Venous blood specimen / Unknown Venipuncture / Unknown 03/12/2025 3:59 AM EDT 03/12/2025 4:04 AM EDT Result Teresa Baum LAB BLOOD ORDERABLES Final Resul t Performing Organization Address City/[facility]/ZIP Co de Phone Number [facility] [address] [place] [address] * (ABNORMAL) Troponin now and 120 min (03/12/2025 3:59 AM EDT) Troponin T, High Sensitivity, 0 Hour 113(H) <19 ng/L 03/12/2025 4:35 AM EDT [facility] Blood Venous blood specimen / Unknown Venipuncture / Unknown 03/12/2025 3:59 AM EDT 03/12/2025 4:04 AM EDT Result Teresa Baum LAB BLOOD ORDERABLES Final Resul t Performing Organization Address [facility] Co de Phone Number [facility] [address] [place] [address] * (ABNORMAL) BNP (03/12/2025 3:59 AM EDT) N-Terminal, PROBNP, Plasma 4,711(H) 0 - 899 pg/mL 03/12/2025 4:35 AM EDT [facility] Blood Venous blood specimen / Unknown Venipuncture / Unknown 03/12/2025 3:59 AM EDT 03/12/2025 4:04 AM EDT us Sloane Baum LAB BLOOD ORDERABLES Final Resul t Performing Organization Address [facility] Co de Phone Number [facility] [address] [place] [address] * Anti Xa Level Low Molecular Weight (03/12/2025 3:59 AM EDT) Anti Xa Level Low Molecular Weight Heparin 1.32 <2.00 IU/mL 03/12/2025 4:15 AM EDT [facility] Blood Venous blood specimen / Unknown Venipuncture / Unknown 03/12/2025 3:59 AM EDT 03/12/2025 4:01 AM EDT Narrative [facility] - 03/12/2025 4:15 AM EDT Therapeutic Range: LMWH enoxaparin 1mg/kg/dose, 12hrs - peak (3-5 hours after dose): 0.5 - 1.0 IU/mL LMWH enoxaparin 1.5mg/kg/dose, 24hrs - peak (3-5 hours after dose): 1.0 - 2.0 IU/mL LMWH enoxaparin prophylaxis: Not established us Sloane Baum LAB BLOOD ORDERABLES Final Resul t Performing Organization Address [facility] Co de Phone Number [facility] [address] [place] [address] * (ABNORMAL) CBC w/diff (03/12/2025 3:59 AM EDT) [facility] WBC Count 10.82(H) 3.70 - 10.30 10*3/uL LAB HEMATOLOGY METHOD 03/12/2025 4:03 AM EDT [facility] RBC Count 2.73(L) 4.60 - 6.10 10*6/uL LAB HEMATOLOGY METHOD 03/12/2025 4:03 AM EDT [facility] HGB 7.5(L) 13.7 - 17.5 g/dL LAB HEMATOLOGY METHOD 03/12/2025 4:03 AM EDT [facility] HCT 24.2(L) 40.0 - 51.0 % LAB HEMATOLOGY METHOD 03/12/2025 4:03 AM EDT [facility] Platelet Count 234 155 - 369 10*3/uL LAB HEMATOLOGY METHOD 03/12/2025 4:03 AM EDT [facility] MCV 89 79 - 98 fL LAB HEMATOLOGY METHOD 03/12/2025 4:03 AM EDT [facility] MCH 27.5 26.0 - 32.0 pg LAB HEMATOLOGY METHOD 03/12/2025 4:03 AM EDT [facility] MCHC 31.0 30.7 - 35.5 g/dL LAB HEMATOLOGY METHOD 03/12/2025 4:03 AM EDT [facility] RDW 19.9(H) 11.5 - 14.5 % LAB HEMATOLOGY METHOD 03/12/2025 4:03 AM EDT [facility] MPV 9.5 8.8 - 12.5 fL LAB HEMATOLOGY METHOD 03/12/2025 4:03 AM EDT [facility] nRBC 0.0 <=0.0 per 100 WBCs LAB HEMATOLOGY METHOD 03/12/2025 4:03 AM EDT [facility] Differential Type Automated LAB HEMATOLOGY METHOD 03/12/2025 4:03 AM EDT [facility] Neutrophils % 86 % LAB HEMATOLOGY METHOD 03/12/2025 4:03 AM EDT [facility] Lymphocytes % 7 % LAB HEMATOLOGY METHOD 03/12/2025 4:03 AM EDT [facility] Monocytes % 6 % LAB HEMATOLOGY METHOD 03/12/2025 4:03 AM EDT [facility] Eosinophils % 0 % LAB HEMATOLOGY METHOD 03/12/2025 4:03 AM EDT [facility] Basophils % 0 % LAB HEMATOLOGY METHOD 03/12/2025 4:03 AM EDT [facility] Immature Granulocytes % 1 % LAB HEMATOLOGY METHOD 03/12/2025 4:03 AM EDT [facility] Neutrophils Absolute 9.29(H) 1.60 - 6.10 10*3/uL LAB HEMATOLOGY METHOD 03/12/2025 4:03 AM EDT [facility] Lymphocytes Absolute 0.80(L) 1.20 - 3.90 10*3/uL LAB HEMATOLOGY METHOD 03/12/2025 4:03 AM EDT [facility] Monocytes Absolute 0.60 0.30 - 0.90 10*3/uL LAB HEMATOLOGY METHOD 03/12/2025 4:03 AM EDT [facility] Eosinophils Absolute 0.03 0.00 - 0.50 10*3/uL LAB HEMATOLOGY METHOD 03/12/2025 4:03 AM EDT [facility] Basophils Absolute 0.03 0.00 - 0.10 10*3/uL LAB HEMATOLOGY METHOD 03/12/2025 4:03 AM EDT [facility] Immature Granulocytes Absolute 0.07(H) 0.00 - 0.06 10*3/uL LAB HEMATOLOGY METHOD 03/12/2025 4:03 AM EDT [facility] Blood Venous blood specimen / Unknown Venipuncture / Unknown 03/12/2025 3:59 AM EDT 03/12/2025 4:01 AM EDT Narrative [facility] - 03/12/2025 4:03 AM EDT Therapeutic decision making should be based on absolute values, rather than percentages. us Sloane Baum LAB BLOOD ORDERABLES Final Resul t [facility] [address] [place] [address] * (ABNORMAL) CMP (03/12/2025 3:59 AM EDT) Glucose, Plasma 90 74 - 99 mg/dL 03/12/2025 4:35 AM EDT [facility] BUN, Plasma 20 8 - 23 mg/dL 03/12/2025 4:35 AM EDT [facility] Creatinine, Plasma 0.81 0.70 - 1.20 mg/dL 03/12/2025 4:35 AM EDT [facility] BUN/Creatinine Ratio 25 03/12/2025 4:35 AM EDT [facility] Sodium, Plasma 133(L) 136 - 145 mmol/L 03/12/2025 4:35 AM EDT [facility] Potassium, Plasma 3.8 3.6 - 4.9 mmol/L 03/12/2025 4:35 AM EDT [facility] Chloride, Plasma 99 97 - 107 mmol/L 03/12/2025 4:35 AM EDT [facility] CO2, Plasma 22 22 - 29 mmol/L 03/12/2025 4:35 AM EDT [facility] Anion Gap 12 6 - 16 mmol/L 03/12/2025 4:35 AM EDT [facility] Total Calcium, Plasma 8.2(L) 8.9 - 10.2 mg/dL 03/12/2025 4:35 AM EDT [facility] Total Protein 6.2(L) 6.3 - 7.9 g/dL 03/12/2025 4:35 AM EDT [facility] Albumin, Plasma 3.3(L) 3.5 - 5.2 g/dL 03/12/2025 4:35 AM EDT [facility] AST, Plasma 33 10 - 50 U/L 03/12/2025 4:35 AM EDT [facility] Comment:Hemolyzed, result ma y be falsely increased. ALT, Plasma 27 10 - 50 U/L 03/12/2025 4:35 AM EDT [facility] Alkaline Phosphatase, Plasma 81 40 - 115 U/L 03/12/2025 4:35 AM EDT [facility] Total Bilirubin, Plasma 1.0 0.2 - 1.1 mg/dL 03/12/2025 4:35 AM EDT [facility] eGFRcr 97.2 mL/min/1.7 3m*2 03/12/2025 4:35 AM EDT [facility] Comment:Reported eGFRcr in m L/min/1.73m2 is based the CKD-EPI 2020 equation that does not use a race coefficient. Blood Venous blood specimen / Unknown Venipuncture / Unknown 03/12/2025 3:59 AM EDT 03/12/2025 4:04 AM EDT us Sloane Baum LAB BLOOD ORDERABLES Final Resul t Performing Organization Address City/[facility] Co de Phone Number [facility] [address] [place] [address] * EKG now - STAT (adult) (03/12/2025 3:43 AM EDT) EKG DIAGNOSIS CLASS Abnormal MUSE ECG Ventricular Rate 106 BPM MUSE ECG Atrial Rate 264 BPM MUSE ECG QRSD Interval 102 ms MUSE ECG QT Interval 390 ms MUSE ECG QTC Interval 518 ms MUSE ECG R [place] 1 degrees MUSE ECG T Wave [place] 117 degrees MUSE ECG Diagnosis Irregular supraventricular tachycardia possible Atrial Fibrillation MUSE ECG Diagnosis Left ventricular hypertrophy with repolarization abnormality ( Ankit product ) MUSE ECG Diagnosis MUSE ECG Diagnosis MUSE ECG Diagnosis Confirmed by Felice Damon ([id number]) on 03/12/2025 10:38:17 PM MUSE ECG 03/12/2025 3:43 AM EDT 03/12/2025 10:38 PM EDT us Sloane Baum ECG ORDERABLES Final Result Performing Organization Address [facility] Co de Phone Number MUSE ECG documented [...] 03/13/2025 9:25 PM EDT 133 mL Tiotropium [place] Monohydrate (Spiriva Respimat) 2.5 MCG/ACT inhaler 2 [...] Until Discontinued, Routine 0841 (Given - Provider: Tmamy Wood RN) 0843 (Given - Provider: Tammy [...] Routine 2044 (Given - Provider: Michele Meier) 2017 (Given - Provider: Apple Santo, ANGELICA) [...] - Comment: will do later today) Tiotropium [place] Monohydrate (Spiriva Respimat) 2.5 MCG/ACT inhaler 2 [...] documented as of this encounter Care Teams Fire[employer] Door As[employer]er Relationship Specialty Start Date End Date Kiera Castro APRN [address] [place] [address] PCP - General 02/17/25 documented as of this encounter
--- OUTSIDE RECORDS SUMMARY | 2025-03-25 03:17 | XMS_ITS | Encounter Summary ---
Author Organization Healthcare Address [address] [place] [address] Care Team Providers Care Referral Clerk Name Role Phone Kiera Castro APRN Primary Care Provider [phone] Reason for Referral * Consultation (Routine) - Authorized Specialty Diagnoses / Procedures Referred By Contac t Referred To Contact Gastroenterology Diagnoses Duodenal ulcer Sirena Hopkins MD [address] [place] [address] Phone: tel: fax: [facility] [address] [place] [address] Phone: tel: Referral ID Status Reason Start Date Expiration Date Visits Requested Visits Authorized [id number] Authorized Specialty Services Required 03/31/2025 09/30/2026 1 1 * Consultation (Routine) - Authorized Specialty Diagnoses / Procedures Referred By Contac t Referred To Contact Cardiology Diagnoses Persistent atrial fibrillation (CMS/HCC) Sirena Hopkins MD [address] [place] [address] Phone: tel: fax: Referral ID Status Reason Start Date Expiration Date Visits Requested Visits Authorized [id number] Authorized Specialty Services Required 03/31/2025 09/30/2026 1 1 * Consultation (Routine) - Authorized Specialty Diagnoses / Procedures Referred By Contac t Referred To Contact Family Medicine Diagnoses Upper GI bleeding Sirena Hopkins MD [address] [place] [address] Phone: tel: fax: Referral ID Status Reason Start Date Expiration Date V isits Requested Visits Authorized [id number] Authorized 03/31/2025 09/30/2026 1 1 Reason for Visit * Reason Comments Chest Pain Weakness - Generalized Post-op Problem * Auth/Cert (Routine) Specialty Diagnoses / Procedures Referred By Contac t Referred To Contact Diagnoses Upper GI bleeding Acute GI bleeding Generalized weakness Severe anemia Low Hemoglobin, status post CABG Iliana Carpenter MD [address] [place] [address] Phone: tel: fax: [facility] Inpatient [address] [place] [address] Phone: tel: Referral ID Status Reason Start Date Expiration Date Visits Re quested Visits Authorized [id number] 1 1 Encounter Details Date Type Department Care Team (Latest Contact Info) Description 03/25/2025 3:17 AM EDT - 03/31/2025 12:30 PM EDT Hospital Encounter [facility]patient [address] [place] [address] Grethcen Hidalgo MD [address] [place] [address] Iliana Carpenter MD [address] [place] [address] Yin Christopher MD [address] [place] [address] Sirena Hopkins MD [address] [place] [address] Acute GI bleeding (Primary Dx); [...] any time in the past 12 m [facility], were you homeless or living in a alf (including now)? No 04/06/2025 Utilities Answer Date Recorded In the past 12 months has th e [employer], or [employer] threatened to shut off services in your [...] needed for pain, headaches or fever. Under [employer] [place] law, monthly prescriptions (30 days) can be [...] meals and nightly. 1200 mL 03/31/2025 Tiotropium [place] Monohydrate (Spiriva Respimat) 2.5 MCG/ACT inhaler Inhale [...] MD PCP name and Address: Kiera Castro, BEHAVIORAL HEALTH CASE MANAGER [address] / [place] [address] Referring provider name and address: Bianca Rinaldi MD [address] [place] [address] Chief Concern, Brief History of Present Illness, [...] needed for pain, headaches or fever. Under [place] law, monthly prescriptions (30 days) can be [...] a day before meals and nightly. Tiotropium [place] Monohydrate 2.5 MCG/ACT inhaler Commonly known as: Spiriva Respimat Inhale 2 puffs daily. Where to Get Your Medications These medications were sent to [facility] [place], [place] - [address] [facility] [address] oxyCODONE 5 MG immediate release tablet pantoprazole [...] Addendum 02/22/2025 7:41 AM by Madelin Bruce, BEHAVIORAL HEALTH CASE MANAGER - Atorvastatin 80 mg nightly HTN (hypertension) Overview Addendum 02/24/2025 3:41 PM by Ramandeep Sunshine APRN - Resume home medications as appropriate - required nitroglycerin gtt shortly post-op for SBP < 120 - Metop 12.5 TID COPD (chronic obstructive pulmonary disease) ([facility]) Overview Addendum 02/24/2025 3:43 PM by Ramandeep Sunshine APRN - on atrovent/ pep therapy GERD (gastroesophageal reflux disease) Overview Addendum 02/22/2025 7:40 AM by Madelin Bruce, BEHAVIORAL HEALTH CASE MANAGER - Pepcid BID Heart failure with mid-range ejection fraction (HFmEF) ([facility]) Overview Addendum 02/22/2025 7:41 AM by Madelin Bruce, BEHAVIORAL HEALTH CASE MANAGER - Echo 4-7-25 [facility]: EF 45% - post-op EF 50% [...] Time Provider Department Center 04/21/2025 11:30 AM [facility] 04/21/2025 12:30 PM Lata Sahu MD [facility] 08/03/2025 12:40 PM Dimitrios Wright MD [facility] Test Results Pending At Discharge [...] Note Shelly Nelson 64 y.o. male CSN: [id number] Admission: 03/25/2025 3:17 AM Primary Problem: Upper GI bleeding Dr Hopikns confirms that patient is medically ready to discharge to home today. RNCM met with patientat bedside to confirm discharge goals and concerns. Mr Nelson confirms that he remains ambulatory and will discharge to his sister's home (Ailyn [place], [place] [address], ), prior to return to own home. He sister had been providing would care prior to this admission, and will continue to do so upon return to her home. Patient has been referred to [facility]Home [facility]ound [facility]; RNCM contacted agency regarding plan for discharge to home today. Williams Atwood with [facility] confirms that documentation has been received, and [facility] has approved this in-home care. RNCM advised patient at bedside of this information, Ms Najera per telephone, and entered into AVS instructions. Patient's brother will provide transport home today, and family will provide transport to follow upappointments. No other needs or concerns identified at this time. Primary Bisque Cleaner: Primary Caregiver: Self (planning to DC to sisters home initally :Ailyn Najera (Sister) ) Assistance Available at Discharge: Current Outpatient/Agency/Support Group: clinic(s), DME Availability of Care Givers (#Hours): 24 hours (Plans to discharge to sister's home (Ailyn Espinosa)initially, then return to own home;) Family/Bisque Cleaner(s) Willingness Assessed to care for patient at home: Yes Family/Bisque Cleaner(s) Readiness Assessed to care for patient at home: Yes Housing Circumstances-Z Codes: Housing Circumstances (select all that apply): Low Income (101-300% Federal Poverty Guidlines) - Z596 Patient Referred to Financial or Community Resources: None. Discharge Facility/Level of Care Needs: Discharge Facility/Level of Care Needs: 1-Home or Self Care [facility]Family Anticipated Services at Transition: Patient/Family Anticipated Services at Transition: outpatient care ([facility]) DME/Equipment Needed [...] Rinaldi MD [address] [place] [address] 813 [facility] [address] [facility] [address] [facility] TEL: [phone] Follow up Provider will call to schedule home visits for wound assessment. Follow up appointments entered into [facility] by providers will be found in patient's After Visit Summary (AVS). At times, Clinics call patients following discharge to schedule follow up. Scheduled appointment(s) currently found in discharge teaching (AVS): Apr 21, 2025 11:30 AM LAB with [facility] [place] [facility] ([facility]) [address], [address] [facility] [address] Please bring any insurance information and a copayment if required by your insurance company. Apr 21, 2025 12:30 PM Post-op with Lata Sahu MD [facility] Cardiothoracic ([facility]) Arrive at: Cardiothoracic Surgery at [facility] [address], [address] [facility] [address] Please bring any insurance information and a copayment if required by your insurance company. Aug 03, 2025 12:40 PM (Arrive by 12:20 PM) Consultation with Dimitrios Wright MD [facility] ([facility]) Arrive at: [facility] [address] [facility] [address] Please bring any insurance information and a [...] Note Kyleveronica Nelson 64 y.o. male CSN: [id number] Room/Bed 605/603Y Nutrition evaluation type: follow-up Reason for evaluation: [...] g, Oral, Before meals & nightly Tiotropium [place] Monohydrate, 2 puff, Inhalation, Daily PRN medications: [...] (204 lb 9.4 oz) BMI (Calculated): 28.55 [place] Body Weight (kg): 78.2 Percent [place] Body Weight: 119 Wt Readings from Last [...] Provided: Will monitor Pertinent home medications: Reviewed. Restoration needs: Nutrition Focused Physical Exam: Physical exam [...] Cervical radiculopathy COPD (chronic obstructive pulmonary disease) ([facility]) Coronary artery disease GERD (gastroesophageal reflux disease) Heart valve disease Hypertension On mechanically assisted ventilation ([facility]) 02/21/2025 Intubated for procedure, arrived to [...] a suspected GI bleed. Patient presented to [facility] from OSH yesterday after a near- syncopal [...] abdominal pain, fever, gastrointestinal bleeding and call combination technician GI if present. - Findings and recommendations were discussed with patient. - Target hgb >7 g/dL, - Hold AC/AP for anticipated 2 weeks; has CTS f/u early April to resume, patient in agreement #Gluteal abscess (POA) Patient was admitted to [facility] 03/11/2025 - 03/12/2025. 03/12/2025 CT showed RIGHT [...] (BMI 25 - 29.9) Sirena Hopkins MD [facility][Note 3] Chat Preferred [phone] Medically Ready for Discharge:Anticipated Today * Care [...] Note Shelly Nelson 64 y.o. male CSN: [id number] Admission: 03/25/2025 3:17 AM Primary Problem: Upper GI bleeding Anticipated Discharge Date: By end of week, 04/03. Has Discharge Plans Changed? No: At this time, anticipate discharge to patient's sister's home (Ailyn Najera) where assistance, up to 24 hour, can be provided. Patient has been referred to [facility] for in home would care clinic. [...] HTN (hypertension) COPD (chronic obstructive pulmonary disease) ([facility]) GERD (gastroesophageal reflux disease) Heart failure with mid-range ejection fraction (HFmEF) ([facility]) S/P CABG x 4 Iron deficiency [...] abdominal pain, fever, gastrointestinal bleeding and call combination technician GI if present. - Findings and recommendations were discussed with patient. - Target hgb >7 g/dL, #Pseudohypocalcemia - Calcium 8.1, albumin 2.7; corrected zane 10.1 #Gluteal abscess (POA) Patient was admitted to [facility] 03/11/2025 - 03/12/2025. 03/12/2025 CT showed RIGHT [...] quit smoking post CABG Dr. Yin Christopher associate theatre professor Hospitalist Medicine This dictation was prepared using [...] HTN (hypertension) COPD (chronic obstructive pulmonary disease) ([facility]) GERD (gastroesophageal reflux disease) Heart failure with mid-range ejection fraction (HFmEF) ([facility]) S/P CABG x 4 Iron deficiency [...] abdominal pain, fever, gastrointestinal bleeding and call combination technician GI if present. - Findings and recommendations were discussed with patient. - Target hgb >7 g/dL, #Pseudohypocalcemia - Calcium 8.1, albumin 2.7; corrected zane 10.1 Plan -Ionized Calcium with am lab 03/24 #Gluteal abscess (POA) Patient was admitted to [facility] 03/11/2025 - 03/12/2025. 03/12/2025 CT showed RIGHT [...] Progress Note Shelly Nelson 64 y.o. male [facility]: [id number] Admission: 03/25/2025 3:17 AM Primary Problem: Upper GI bleeding Engraver [employer] reviewed chart and spoke with patient to complete this Initial Case Management Assessment. PCP: Kiera Castro APRN Emergency Contact: Extended Emergency Contact Information Primary Emergency Contact: Ailyn Najera Mobile Relation: Sister Dice Spotter needed? No Secondary Emergency Contact: Hussain Nelson Mobile Relation: Brother Preferred language: Amharic Dice Spotter needed? No Insurance: Primary Visit Coverage Payer Plan Sponsor Code Group Number Group Name [facility] MEDICARE [facility] MEDICARE REPLACEMENT [id number] Dual Complete Primary Visit Coverage Subscriber Subscriber ID Subscriber Name Subscriber [facility] Subscriber Address [id number] Shelly Nelson Jr [id number] [place] [address] Secondary Visit Coverage Payer Plan Sponsor Code Group Number Group Name [facility] MEDICAID [facility] MEDICAID [place] Secondary Visit Coverage Subscriber Subscriber ID Subscriber Name Subscriber [facility] Subscriber Address [id number] Shelly Nelson Jr [phone] [place] [address] Patient information: Primary Caregiver: Self (planning to DC to sisters home initally :Ailyn Najera (Sister) ) Support System: Immediate family (Ailyn Najera (Sister) : sometimes stay with sister) additional family/ friends available to help at home . Mr. Nelson is planning to initially go home with Ms. Najera on discharge : [address] [place] [address] Daily Living Activities: Functional Status: Independent Living Arrangements: Alone Type of Residence: Single Level (ten steps to enter front of house; one step to enter side of house.) Mr. Nelson'stiven home address : [place] [address] Smoker in the Home?: No Current DME: Equipment Currently Used at Home: walker, rollator Income Information: Income Source: Retired Current Resources Utilized: None Housing Circumstances-Z Codes: Housing Circumstances (select all that apply): Low Income (101-300% Federal Poverty Guidlines) - Z596 Patient Referred to: 03/25/25 : Preliminary referral for wound care (Clinical documents and demographics faxed ([phone]) to : [facility]: a in home wound care provider. Liaison: Williams Atwood ;[phone], Anticipated Discharge Date: TBD Patient's Discharge Goal: home Assistance Available at Discharge: Ailyn Najera (Sister) Plus additional family/friends. Has 24 hour initial assistance available at home on discharge. Discharge Transport: DaniaAilyn (Sister) Follow Up Transport: Self/family/friend Home Health / Home Infusion / Outpatient Dialysis Services: none Living Will/Advance Directive/Power of Drug Inspector /Guardian: Have you reviewed your Advance Directive [...] abdominal pain, fever, gastrointestinal bleeding and call combination technician GI if present. - Findings and recommendations were discussed with patient. - Target hgb >7 g/dL, #Pseudohypocalcemia - Calcium 8.1, albumin 2.7; corrected zane 10.1 Plan -Ionized Calcium with am lab 03/24 #Gluteal abscess (POA) Patient was admitted to [facility] 03/11/2025 - 03/12/2025. 03/12/2025 CT showed RIGHT [...] Heart failure with mid-range ejection fraction (HFmEF) ([facility]) S/P CABG x 4 Iron deficiency [...] abdominal pain, fever, gastrointestinal bleeding and call combination technician GI if present. - Findings and recommendations were discussed with patient. - Target hgb >7 g/dL, #Pseudohypocalcemia - Calcium 8.1, albumin 2.7; corrected zane 10.1 Plan -Ionized Calcium with am lab 03/24 #Gluteal abscess (POA) Patient was admitted to [facility] 03/11/2025 - 03/12/2025. 03/12/2025 CT showed RIGHT [...] Note Shelly Nelson 64 y.o. male CSN: [id number] Admission: 03/25/2025 3:17 AM Primary Problem: Upper GI bleeding Anticipated Discharge Date: 03/29/25 Preliminary referral for wound care (Clinical documents and demographics faxed ([phone]) to : [facility]: a in home wound care provider. Liaison: Williams Atwood ;[phone], Additional Comments Violet Chavez RN * Care [...] 03/25/2025 3:00 PM Wound Image Wound Assessment Red;[place];Painful Margins Well-defined edges Leslie-Wound Assessment Blanchable erythema [...] Dressing Coccyx Other (Comments) ([facility]) Routine Active Iliana Carpenter MD - Dressing [...] from the original note were not included. [id number] Endoscopy Unit: Caring for Yourself after an [...] will be available in the patient portal, Cozy. Or you can call the doctor who [...] for the Endoscopy Fellow on-call. * [facility] - Merlyn Centeno RN - 03/25/2025 3:58 PM EDT Images from the original note were not included. [id number] Anesthesia: General Anesthesia You?re due to have [...] medicines you take. This includes prescription and amak-grj-kaduccz medicines. It also includes vitamins, herbs, and [...] safe. Last Reviewed Date: 2024 00:00:00 ?? [id number] [employer]. All rights reserved. This information is not intended as a substitute for professional medical care. Always follow your healthcare professional's instructions. * Consults - Taylor Santiago RD - 03/25/2025 11:55 AM EDTAssociated Order(s): IP CONSULT TO NUTRITION SERVICES Adult Nutrition Evaluation Note Shelly Nelson 64 y.o. male CSN: [id number] Room/Bed 605/605A Nutrition evaluation type: assessment Reason [...] (98.3 ??F) Oxygen Therapy: None (Room air) [place] Coma Scale Score: 15 Reyes Scale Score: [...] PRN Sodium Hypochlorite, , Topical, BID Tiotropium [place] Monohydrate, 2 puff, Inhalation, Daily PRN medications: [...] (208 lb 15.9 oz) BMI (Calculated): 29.16 [place] Body Weight (kg): 78.2 Percent [place] Body Weight: 121 Wt Readings from Last [...] Provided: Will monitor Pertinent home medications: Reviewed. Restoration needs: Nutrition Focused Physical Exam: Physical exam [...] Cervical radiculopathy COPD (chronic obstructive pulmonary disease) ([facility]) Coronary artery disease GERD (gastroesophageal reflux disease) Heart valve disease Hypertension On mechanically assisted ventilation ([facility]) 02/21/2025 Intubated for procedure, arrived to [...] for suspected GI bleed. Patient presented to [facility] from OSH yesterday after a near- syncopal [...] q12h Sodium Hypochlorite, , Topical, BID Tiotropium [place] Monohydrate, 2 puff, Inhalation, Daily Medications (continous): [...] melena. Lo Qiu DO PGY-4 Gastroenterology Fellow [facility] [1] Past 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: Diagnosis Date Abnormal ECG BPH (benign prostatic hyperplasia) Cervical radiculopathy COPD (chronic obstructive pulmonary disease) ([facility]) Coronary artery disease GERD (gastroesophageal reflux disease) Heart valve disease Hypertension On mechanically assisted ventilation ([facility]) 02/21/2025 Intubated for procedure, arrived to [...] EKG are outside hospital demonstrated nonspecific ST/T-wave changesconsistent with patient's previous EKGs. Lab was significant [...] HTN (hypertension) COPD (chronic obstructive pulmonary disease) ([facility]) GERD (gastroesophageal reflux disease) Heart failure with mid-range ejection fraction (HFmEF) ([facility]) S/P CABG x 4 Iron deficiency anemia [...] #Gluteal abscess (POA) Patient was admitted to [facility] 03/11/2025 - 03/12/2025. 03/12/2025 CT showed RIGHT [...] sodium chloride, 10 mL, Intravenous, q12h Tiotropium [place] Monohydrate, 2 puff, Inhalation, Daily Continuous: As [...] Time Provider Department Center 03/31/2025 12:00 PM [facility] 03/31/2025 1:00 PM Lata Sahu MD [facility] Ramez Cordoba APRN, DNP [1] Past 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: Diagnosis Date Abnormal ECG BPH (benign prostatic hyperplasia) Cervical radiculopathy COPD (chronic obstructive pulmonary disease) ([facility]) Coronary artery disease GERD (gastroesophageal reflux disease) Heart valve disease Hypertension On mechanically assisted ventilation ([facility]) 02/21/2025 Intubated for procedure, arrived to [...] and oriented to person, place, and time. [place] Coma Scale Score: 15 ED Course & [...] is greater than 200 mL Acknowledged RAMEZ CORDOBA 03/25/25517 Telemetry Monitoring for Other Indication, which must be specified via free response in the orders Until discontinued Acknowledged MADUALDABEYA, RAMEZ N 03/25/25517 Fall precautions Until discontinued Acknowledged MADUJIBETAMANNA, RAMEZ N 03/25/25517 Adjust HOB (specify) 30 [...] Notify physician (specify parameters) Until discontinued Acknowledged JIMENABETAMANNA RAMEZ N 03/25/25517 Insert peripheral IV Once Placed in And Linked Group Acknowledged ADALID RAMEZ N 03/25/25517 Saline lock IV Once Placed in And Linked Group Acknowledged MADJACKSON RAMEZ N 03/25/25 032 Vital Signs Every 2 hours Acknowledged GRETCHEN HIDALGO 03/25/25 0351 Consult to Hospital Medicine Once Specialty: Internal Medicine Provider: (Not yet assigned) Acknowledged ISSAC MANLEY 03/25/25 0335 Hepatic function panel Once Final result ISSAC MANLEY 03/25/25 0329 PT-INR STAT Final result GRETCHEN HIDALGO 03/25/25 0328 Insert peripheral IV Once Acknowledged GRETCHEN HIDALGO 03/25/25 0328 ED / Procedure Cardiac Monitoring Until discontinued Acknowledged GRETCHEN HIDALGO 03/25/25 0328 Continuous Pulse Oximetry Until discontinued Acknowledged GRETCHEN HIDALGO 03/25/25 0328 Oxygen Therapy - Device: Nasal Cannula Continuous Order ID Start Status Ordering Provider [id number] 03/25/25 032 Completed GRETCHEN HIDALGO [id number] 03/25/25 0800 Acknowledged GRETCHEN HIDALGO [id number] 03/25/251999 Acknowledged GWEN, GRETCHEN B 03/26/25 0800 Scheduled GWEN, GERTCHEN B 03/26/251999 Scheduled GWEN, GRETCHEN B 03/27/25 [...] None Disposition Admit Admitting/Attending Physician: ILIANA CARPENTER [[id number]] Provider Care Team: SAY DEJESUS 16 [[id number]] Are they the primary team?: Yes [1] - Issac Manley MD Resident 03/25/25 0520 Attending Attestation: I saw and evaluated the patient with the resident/fellow. I discussed the case with the resident/fellow and agree with the findings and plan as documented. [1] Past 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: Diagnosis Date Abnormal ECG BPH (benign prostatic hyperplasia) Cervical radiculopathy COPD (chronic obstructive pulmonary disease) ([facility]) Coronary artery disease GERD (gastroesophageal reflux disease) Heart valve disease Hypertension On mechanically assisted ventilation ([facility]) 02/21/2025 Intubated for procedure, arrived to [...] Description 08/03/2025 12:40 PM EDT Office Visit [facility] [address] [place] [address] Dimitrios Wright MD [address] [place] [address] Pending Results Name Type Priority Associated Diagnoses [...] - 2.4 mg/dL 03/31/2025 4:57 AM EDT [facility] Blood Venous blood specimen / Unknown Venipuncture / Unknown 03/31/2025 4:17 AM EDT 03/31/2025 4:27 AM EDT us Yin Christopher MD LAB BLOOD ORDERABLES Fi nal Result [facility] [address] [place] [address] * (ABNORMAL) Comprehensive Metabolic Panel, Plasma (03/31/2025 4:17 AM EDT) Glucose, Plasma 125(H) 74 - 99 mg/dL 03/31/2025 4:57 AM EDT [facility] BUN, Plasma 28(H) 8 - 23 mg/dL 03/31/2025 4:57 AM EDT [facility] Creatinine, Plasma 0.72 0.70 - 1.20 mg/dL 03/31/2025 4:57 AM EDT [facility] BUN/Creatinine Ratio 39 03/31/2025 4:57 AM EDT [facility] Sodium, Plasma 136 136 - 145 mmol/L 03/31/2025 4:57 AM EDT [facility] Potassium, Plasma 4.1 3.6 - 4.9 mmol/L 03/31/2025 4:57 AM EDT [facility] Chloride, Plasma 106 97 - 107 mmol/L 03/31/2025 4:57 AM EDT [facility] CO2, Plasma 22 22 - 29 mmol/L 03/31/2025 4:57 AM EDT [facility] Anion Gap 8 6 - 16 mmol/L 03/31/2025 4:57 AM EDT [facility] Total Calcium, Plasma 8.1(L) 8.9 - 10.2 mg/dL 03/31/2025 4:57 AM EDT [facility] Total Protein 5.0(L) 6.3 - 7.9 g/dL 03/31/2025 4:57 AM EDT [facility] Albumin, Plasma 2.8(L) 3.5 - 5.2 g/dL 03/31/2025 4:57 AM EDT [facility] AST, Plasma 24 10 - 50 U/L 03/31/2025 4:57 AM EDT [facility] ALT, Plasma 14 10 - 50 U/L 03/31/2025 4:57 AM EDT [facility] Alkaline Phosphatase, Plasma 106 40 - 115 U/L 03/31/2025 4:57 AM EDT [facility] Total Bilirubin, Plasma 0.3 0.2 - 1.1 mg/dL 03/31/2025 4:57 AM EDT [facility] eGFRcr 100.8 mL/min/1.7 3m*2 03/31/2025 4:57 AM EDT [facility] Comment:Reported eGFRcr in m L/min/1.73m2 is based the CKD-EPI 2020 equation that does not use a race coefficient. Blood Venous blood specimen / Unknown Venipuncture / Unknown 03/31/2025 4:17 AM EDT 03/31/2025 4:27 AM EDT Yin Christopher MD LAB BLOOD ORDERABLES Fi nal Result [facility] [address] [place] [address] * (ABNORMAL) CBC and Differential (03/31/2025 4:17 AM EDT) WBC Count 5.55 3.70 - 10.30 10*3/uL LAB HEMATOLOGY METHOD 03/31/2025 4:41 AM EDT [facility] RBC Count 2.57(L) 4.60 - 6.10 10*6/uL LAB HEMATOLOGY METHOD 03/31/2025 4:41 AM EDT [facility] HGB 7.6(L) 13.7 - 17.5 g/dL LAB HEMATOLOGY METHOD 03/31/2025 4:41 AM EDT [facility] HCT 24.7(L) 40.0 - 51.0 % LAB HEMATOLOGY METHOD 03/31/2025 4:41 AM EDT [facility] Platelet Count 218 155 - 369 10*3/uL LAB HEMATOLOGY METHOD 03/31/2025 4:41 AM EDT [facility] MCV 96 79 - 98 fL LAB HEMATOLOGY METHOD 03/31/2025 4:41 AM EDT [facility] MCH 29.6 26.0 - 32.0 pg LAB HEMATOLOGY METHOD 03/31/2025 4:41 AM EDT [facility] MCHC 30.8 30.7 - 35.5 g/dL LAB HEMATOLOGY METHOD 03/31/2025 4:41 AM EDT [facility] RDW 19.1(H) 11.5 - 14.5 % LAB HEMATOLOGY METHOD 03/31/2025 4:41 AM EDT [facility] MPV 10.4 8.8 - 12.5 fL LAB HEMATOLOGY METHOD 03/31/2025 4:41 AM EDT [facility] nRBC 0.0 <=0.0 per 100 WBCs LAB HEMATOLOGY METHOD 03/31/2025 4:41 AM EDT [facility] Differential Type Automated LAB HEMATOLOGY METHOD 03/31/2025 4:41 AM EDT [facility] Neutrophils % 43 % LAB HEMATOLOGY METHOD 03/31/2025 4:41 AM EDT [facility] Lymphocytes % 46 % LAB HEMATOLOGY METHOD 03/31/2025 4:41 AM EDT [facility] Monocytes % 6 % LAB HEMATOLOGY METHOD 03/31/2025 4:41 AM EDT [facility] Eosinophils % 3 % LAB HEMATOLOGY METHOD 03/31/2025 4:41 AM EDT [facility] Basophils % 1 % LAB HEMATOLOGY METHOD 03/31/2025 4:41 AM EDT [facility] Immature Granulocytes % 1 % LAB HEMATOLOGY METHOD 03/31/2025 4:41 AM EDT [facility] Neutrophils Absolute 2.41 1.60 - 6.10 10*3/uL LAB HEMATOLOGY METHOD 03/31/2025 4:41 AM EDT [facility] Lymphocytes Absolute 2.53 1.20 - 3.90 10*3/uL LAB HEMATOLOGY METHOD 03/31/2025 4:41 AM EDT [facility] Monocytes Absolute 0.33 0.30 - 0.90 10*3/uL LAB HEMATOLOGY METHOD 03/31/2025 4:41 AM EDT [facility] Eosinophils Absolute 0.17 0.00 - 0.50 10*3/uL LAB HEMATOLOGY METHOD 03/31/2025 4:41 AM EDT [facility] Basophils Absolute 0.05 0.00 - 0.10 10*3/uL LAB HEMATOLOGY METHOD 03/31/2025 4:41 AM EDT [facility] Immature Granulocytes Absolute 0.06 0.00 - 0.06 10*3/uL LAB HEMATOLOGY METHOD 03/31/2025 4:41 AM EDT [facility] Blood Venous blood specimen / Unknown Venipuncture / Unknown 03/31/2025 4:17 AM EDT 03/31/2025 4:29 AM EDT Narrative [facility] - 03/31/2025 4:41 AM EDT Therapeutic decision making should be based on absolute values, rather than percentages. Yin Christopher MD LAB BLOOD ORDERABLES Fi nal Result [facility] [address] [place] [address] * (ABNORMAL) CBC and Differential (03/30/2025 4:52 AM EDT) WBC Count 5.70 3.70 - 10.30 10*3/uL LAB HEMATOLOGY METHOD 03/30/2025 5:29 AM EDT [facility] RBC Count 2.69(L) 4.60 - 6.10 10*6/uL LAB HEMATOLOGY METHOD 03/30/2025 5:29 AM EDT [facility] HGB 7.8(L) 13.7 - 17.5 g/dL LAB HEMATOLOGY METHOD 03/30/2025 5:29 AM EDT [facility] HCT 25.7(L) 40.0 - 51.0 % LAB HEMATOLOGY METHOD 03/30/2025 5:29 AM EDT [facility] Platelet Count 199 155 - 369 10*3/uL LAB HEMATOLOGY METHOD 03/30/2025 5:29 AM EDT [facility] MCV 96 79 - 98 fL LAB HEMATOLOGY METHOD 03/30/2025 5:29 AM EDT [facility] MCH 29.0 26.0 - 32.0 pg LAB HEMATOLOGY METHOD 03/30/2025 5:29 AM EDT [facility] MCHC 30.4(L) 30.7 - 35.5 g/dL LAB HEMATOLOGY METHOD 03/30/2025 5:29 AM EDT [facility] RDW 19.3(H) 11.5 - 14.5 % LAB HEMATOLOGY METHOD 03/30/2025 5:29 AM EDT [facility] MPV 10.5 8.8 - 12.5 fL LAB HEMATOLOGY METHOD 03/30/2025 5:29 AM EDT [facility] nRBC 0.0 <=0.0 per 100 WBCs LAB HEMATOLOGY METHOD 03/30/2025 5:29 AM EDT [facility] Differential Type Automated LAB HEMATOLOGY METHOD 03/30/2025 5:29 AM EDT [facility] Neutrophils % 43 % LAB HEMATOLOGY METHOD 03/30/2025 5:29 AM EDT [facility] Lymphocytes % 43 % LAB HEMATOLOGY METHOD 03/30/2025 5:29 AM EDT [facility] Monocytes % 8 % LAB HEMATOLOGY METHOD 03/30/2025 5:29 AM EDT [facility] Eosinophils % 3 % LAB HEMATOLOGY METHOD 03/30/2025 5:29 AM EDT [facility] Basophils % 1 % LAB HEMATOLOGY METHOD 03/30/2025 5:29 AM EDT [facility] Immature Granulocytes % 2 % LAB HEMATOLOGY METHOD 03/30/2025 5:29 AM EDT [facility] Neutrophils Absolute 2.47 1.60 - 6.10 10*3/uL LAB HEMATOLOGY METHOD 03/30/2025 5:29 AM EDT [facility] Lymphocytes Absolute 2.47 1.20 - 3.90 10*3/uL LAB HEMATOLOGY METHOD 03/30/2025 5:29 AM EDT [facility] Monocytes Absolute 0.47 0.30 - 0.90 10*3/uL LAB HEMATOLOGY METHOD 03/30/2025 5:29 AM EDT [facility] Eosinophils Absolute 0.15 0.00 - 0.50 10*3/uL LAB HEMATOLOGY METHOD 03/30/2025 5:29 AM EDT [facility] Basophils Absolute 0.04 0.00 - 0.10 10*3/uL LAB HEMATOLOGY METHOD 03/30/2025 5:29 AM EDT [facility] Immature Granulocytes Absolute 0.10(H) 0.00 - 0.06 10*3/uL LAB HEMATOLOGY METHOD 03/30/2025 5:29 AM EDT [facility] Blood Venous blood specimen / Unknown Venipuncture / Unknown 03/30/2025 4:52 AM EDT 03/30/2025 5:06 AM EDT [facility] - 03/30/2025 5:29 AM EDT Therapeutic decision making should be based on absolute values, rather than percentages. Yin Christopher MD LAB BLOOD ORDERABLES Fi nal Result [facility] [address] [place] [address] * (ABNORMAL) Comprehensive Metabolic Panel, Plasma (03/30/2025 4:52 AM EDT) Glucose, Plasma 90 74 - 99 mg/dL 03/30/2025 5:36 AM EDT [facility] BUN, Plasma 28(H) 8 - 23 mg/dL 03/30/2025 5:36 AM EDT [facility] Creatinine, Plasma 0.70 0.70 - 1.20 mg/dL 03/30/2025 5:36 AM EDT [facility] BUN/Creatinine Ratio 40 03/30/2025 5:36 AM EDT [facility] Sodium, Plasma 136 136 - 145 mmol/L 03/30/2025 5:36 AM EDT [facility] Potassium, Plasma 4.3 3.6 - 4.9 mmol/L 03/30/2025 5:36 AM EDT [facility] Chloride, Plasma 105 97 - 107 mmol/L 03/30/2025 5:36 AM EDT [facility] CO2, Plasma 22 22 - 29 mmol/L 03/30/2025 5:36 AM EDT [facility] Anion Gap 9 6 - 16 mmol/L 03/30/2025 5:36 AM EDT [facility] Total Calcium, Plasma 8.1(L) 8.9 - 10.2 mg/dL 03/30/2025 5:36 AM EDT [facility] Total Protein 4.9(L) 6.3 - 7.9 g/dL 03/30/2025 5:36 AM EDT [facility] Albumin, Plasma 2.5(L) 3.5 - 5.2 g/dL 03/30/2025 5:36 AM EDT [facility] AST, Plasma 22 10 - 50 U/L 03/30/2025 5:36 AM EDT [facility] ALT, Plasma 13 10 - 50 U/L 03/30/2025 5:36 AM EDT [facility] Alkaline Phosphatase, Plasma 83 40 - 115 U/L 03/30/2025 5:36 AM EDT [facility] Total Bilirubin, Plasma 0.5 0.2 - 1.1 mg/dL 03/30/2025 5:36 AM EDT [facility] eGFRcr 101.6 mL/min/1.7 3m*2 03/30/2025 5:36 AM EDT [facility] Comment:Reported eGFRcr in m L/min/1.73m2 is based the CKD-EPI 2020 equation that does not use a race coefficient. Blood Venous blood specimen / Unknown Venipuncture / Unknown 03/30/2025 4:52 AM EDT 03/30/2025 5:04 AM EDT Yin Christopher MD LAB BLOOD ORDERABLES Fi nal Result Performing Organization Address City/[facility]/ZIP Co de Phone Number [facility] [address] [place] [address] * (ABNORMAL) Magnesium, Plasma (03/30/2025 4:52 AM EDT) Magnesium, Plasma 1.8(L) 1.9 - 2.4 mg/dL 03/30/2025 5:36 AM EDT [facility] Blood Venous blood specimen / Unknown Venipuncture / Unknown 03/30/2025 4:52 AM EDT 03/30/2025 5:04 AM EDT Yin Christopher MD LAB BLOOD ORDERABLES Fi nal Result [facility] [address] [place] [address] * Phosphorus, Plasma (03/30/2025 4:52 AM EDT) Phosphorus, Plasma 3.3 2.5 - 4.5 mg/dL 03/30/2025 5:36 AM EDT [facility] Blood Venous blood specimen / Unknown Venipuncture / Unknown 03/30/2025 4:52 AM EDT 03/30/2025 5:04 AM EDT Yin Christopher MD LAB BLOOD ORDERABLES Fi nal Result Performing Organization Address City/[facility]/ZIP Co de Phone Number [facility] [address] [place] [address] * Transfuse RBC (03/29/2025 12:59 PM EDT) Yin Christopher MD BLOOD TRANSFUSION ORDER CASTILLO Final Result * Transfuse RBC: 1 Units (03/29/2025 12:59 PM EDT) Yin Christopher MD BLOOD TRANSFUSION ORDER CASTILLO Final Result * Prepare Leukocyte Reduced RBC: 1 Units (03/29/2025 8:37 AM EDT) Product Code [id number] CH BLOO D BANK Dispense Status Transfused BLOOD BANK Blood Expiration Date [id number] BLOOD BANK Unit Number [id number] CH B LOOD BANK Product Blood Type 5100 BLOOD BANK Blood Type O+ BLOOD BANK Crossmatch Compatible BLOOD BANK Other Yin Christopher MD BLOOD BANK PRODUCT ORDE RABLES Final Result Performing Organization Address City/[facility] Co de Phone Number BLOOD BANK [address] [place] [address], * Type and screen (03/29/2025 6:05 AM [...] ORDERA BLES Final Result BLOOD BANK [address] [place] [address], * (ABNORMAL) CBC and Differential (03/29/2025 3:21 AM EDT) WBC Count 5.89 3.70 - 10.30 10*3/uL LAB HEMATOLOGY METHOD 03/29/2025 4:15 AM EDT [facility] RBC Count 2.22(L) 4.60 - 6.10 10*6/uL LAB HEMATOLOGY METHOD 03/29/2025 4:15 AM EDT [facility] HGB 6.5(L) 13.7 - 17.5 g/dL LAB HEMATOLOGY METHOD 03/29/2025 4:15 AM EDT [facility] HCT 21.5(L) 40.0 - 51.0 % LAB HEMATOLOGY METHOD 03/29/2025 4:15 AM EDT [facility] Platelet Count 197 155 - 369 10*3/uL LAB HEMATOLOGY METHOD 03/29/2025 4:15 AM EDT [facility] MCV 97 79 - 98 fL LAB HEMATOLOGY METHOD 03/29/2025 4:15 AM EDT [facility] MCH 29.3 26.0 - 32.0 pg LAB HEMATOLOGY METHOD 03/29/2025 4:15 AM EDT [facility] MCHC 30.2(L) 30.7 - 35.5 g/dL LAB HEMATOLOGY METHOD 03/29/2025 4:15 AM EDT [facility] RDW 20.8(H) 11.5 - 14.5 % LAB HEMATOLOGY METHOD 03/29/2025 4:15 AM EDT [facility] MPV 10.9 8.8 - 12.5 fL LAB HEMATOLOGY METHOD 03/29/2025 4:15 AM EDT [facility] nRBC 0.0 <=0.0 per 100 WBCs LAB HEMATOLOGY METHOD 03/29/2025 4:15 AM EDT [facility] Differential Type Automated LAB HEMATOLOGY METHOD 03/29/2025 4:15 AM EDT [facility] Neutrophils % 48 % LAB HEMATOLOGY METHOD 03/29/2025 4:15 AM EDT [facility] Lymphocytes % 40 % LAB HEMATOLOGY METHOD 03/29/2025 4:15 AM EDT [facility] Monocytes % 8 % LAB HEMATOLOGY METHOD 03/29/2025 4:15 AM EDT [facility] Eosinophils % 2 % LAB HEMATOLOGY METHOD 03/29/2025 4:15 AM EDT [facility] Basophils % 1 % LAB HEMATOLOGY METHOD 03/29/2025 4:15 AM EDT [facility] Immature Granulocytes % 1 % LAB HEMATOLOGY METHOD 03/29/2025 4:15 AM EDT [facility] Neutrophils Absolute 2.82 1.60 - 6.10 10*3/uL LAB HEMATOLOGY METHOD 03/29/2025 4:15 AM EDT [facility] Lymphocytes Absolute 2.36 1.20 - 3.90 10*3/uL LAB HEMATOLOGY METHOD 03/29/2025 4:15 AM EDT [facility] Monocytes Absolute 0.49 0.30 - 0.90 10*3/uL LAB HEMATOLOGY METHOD 03/29/2025 4:15 AM EDT [facility] Eosinophils Absolute 0.14 0.00 - 0.50 10*3/uL LAB HEMATOLOGY METHOD 03/29/2025 4:15 AM EDT [facility] Basophils Absolute 0.03 0.00 - 0.10 10*3/uL LAB HEMATOLOGY METHOD 03/29/2025 4:15 AM EDT [facility] Immature Granulocytes Absolute 0.05 0.00 - 0.06 10*3/uL LAB HEMATOLOGY METHOD 03/29/2025 4:15 AM EDT [facility] Blood Venous blood specimen / Unknown Venipuncture / Unknown 03/29/2025 3:21 AM EDT 03/29/2025 4:03 AM EDT [facility] - 03/29/2025 4:15 AM EDT Therapeutic decision making should be based on absolute values, rather than percentages. Yin Christopher MD LAB BLOOD ORDERABLES Fi nal Result [facility] [address] [place] [address] * (ABNORMAL) Comprehensive Metabolic Panel, Plasma (03/29/2025 3:21 AM EDT) Glucose, Plasma 112(H) 74 - 99 mg/dL 03/29/2025 4:34 AM EDT [facility] BUN, Plasma 34(H) 8 - 23 mg/dL 03/29/2025 4:34 AM EDT [facility] Creatinine, Plasma 0.75 0.70 - 1.20 mg/dL 03/29/2025 4:34 AM EDT [facility] BUN/Creatinine Ratio 45 03/29/2025 4:34 AM EDT [facility] Sodium, Plasma 135(L) 136 - 145 mmol/L 03/29/2025 4:34 AM EDT [facility] Potassium, Plasma 4.3 3.6 - 4.9 mmol/L 03/29/2025 4:34 AM EDT [facility] Chloride, Plasma 104 97 - 107 mmol/L 03/29/2025 4:34 AM EDT [facility] CO2, Plasma 22 22 - 29 mmol/L 03/29/2025 4:34 AM EDT [facility] Anion Gap 9 6 - 16 mmol/L 03/29/2025 4:34 AM EDT [facility] Total Calcium, Plasma 7.8(L) 8.9 - 10.2 mg/dL 03/29/2025 4:34 AM EDT [facility] Total Protein 4.8(L) 6.3 - 7.9 g/dL 03/29/2025 4:34 AM EDT [facility] Albumin, Plasma 2.6(L) 3.5 - 5.2 g/dL 03/29/2025 4:34 AM EDT [facility] AST, Plasma 28 10 - 50 U/L 03/29/2025 4:34 AM EDT [facility] Comment:Hemolyzed, result ma y be falsely increased. ALT, Plasma 14 10 - 50 U/L 03/29/2025 4:34 AM EDT [facility] Alkaline Phosphatase, Plasma 77 40 - 115 U/L 03/29/2025 4:34 AM EDT [facility] Total Bilirubin, Plasma 0.4 0.2 - 1.1 mg/dL 03/29/2025 4:34 AM EDT [facility] eGFRcr 99.5 mL/min/1.7 3m*2 03/29/2025 4:34 AM EDT [facility] Comment:Reported eGFRcr in m L/min/1.73m2 is based the CKD-EPI 2020 equation that does not use a race coefficient. Blood Venous blood specimen / Unknown Venipuncture / Unknown 03/29/2025 3:21 AM EDT 03/29/2025 4:03 AM EDT us Yin Christopher MD LAB BLOOD ORDERABLES Fi nal Result Performing Organization Address City/[facility] Co de Phone Number [facility] [address] [place] [address] * Magnesium, Plasma (03/29/2025 3:21 AM EDT) Magnesium, Plasma 2.1 1.9 - 2.4 mg/dL 03/29/2025 4:34 AM EDT [facility] Blood Venous blood specimen / Unknown Venipuncture / Unknown 03/29/2025 3:21 AM EDT 03/29/2025 4:03 AM EDT us Yin Christopher MD LAB BLOOD ORDERABLES Fi nal Result Performing Organization Address City/[facility]/ZIP Co de Phone Number [facility] [address] [place] [address] * Phosphorus, Plasma (03/29/2025 3:21 AM EDT) Phosphorus, Plasma 2.9 2.5 - 4.5 mg/dL 03/29/2025 4:34 AM EDT [facility] Blood Venous blood specimen / Unknown Venipuncture / Unknown 03/29/2025 3:21 AM EDT 03/29/2025 4:03 AM EDT us Yin Christopher MD LAB BLOOD ORDERABLES Fi nal Result [facility] [address] [place] [address] * Helicobacter pylori Antigen (03/28/2025 4:18 PM EDT) Helicobacter pylori Antigen Result Negative Negative 03/28/2025 5:39 PM EDT [facility] Stool Rectum structure / Unknown Non-blood Collection / Unknown 03/28/2025 4:18 PM EDT 03/28/2025 4:33 PM EDT Yin Christopher MD LAB MICROBIOLOGY - GENE RAL ORDERABLES Final Result Performing Organization Address [facility]/ZIP Co de Phone Number [facility] [address] [place] [address] * (ABNORMAL) Occult Blood, Fecal by Immunoassay (SO) (03/28/2025 4:18 PM EDT) Occult Blood, Fecal Immunosay Interpretation Positive( A) 03/31/2025 10:15 AM EDT [facility] ([facility] Stool Non-blood Collection / Unknown 03/28/2025 4:18 PM EDT 03/28/2025 4:27 PM EDT Narrative [facility] ([facility] - 03/31/2025 10:15 AM EDT INTERPRETIVE INFORMATION: Fecal Occult Blood by Immunoassay No single cutoff provides superior colorectal cancer detection rates. The test spring floor service worker recommends the use of a 100 ng/mL cutoff that produces a specificity of approximately 95 percent for the detection of lower gastrointestinal bleeding. This test does not detect upper gastrointestinal bleeding. Performed By: [employer] [address] [place] [id number] [employer] Worker: Wilfrid Carr MD, PhD CLIA Number: [id number] us Ramez Cordoba APRN, DNP LAB REF LAB BLOOD AND FLUID ORD Final Result Performing Organization Address City/[facility]/ZIP Co de Phone Number [facility] ([employer]) [address] [place] [id number] * (ABNORMAL) CBC W/O Differential (03/28/2025 12:15 PM EDT) WBC Count 6.21 3.70 - 10.30 10*3/uL LAB HEMATOLOGY METHOD 03/28/2025 12:29 PM EDT [facility] RBC Count 2.38(L) 4.60 - 6.10 10*6/uL LAB HEMATOLOGY METHOD 03/28/2025 12:29 PM EDT [facility] HGB 7.0(L) 13.7 - 17.5 g/dL LAB HEMATOLOGY METHOD 03/28/2025 12:29 PM EDT [facility] HCT 22.6(L) 40.0 - 51.0 % LAB HEMATOLOGY METHOD 03/28/2025 12:29 PM EDT [facility] Platelet Count 215 155 - 369 10*3/uL LAB HEMATOLOGY METHOD 03/28/2025 12:29 PM EDT [facility] MCV 95 79 - 98 fL LAB HEMATOLOGY METHOD 03/28/2025 12:29 PM EDT [facility] MCH 29.4 26.0 - 32.0 pg LAB HEMATOLOGY METHOD 03/28/2025 12:29 PM EDT [facility] MCHC 31.0 30.7 - 35.5 g/dL LAB HEMATOLOGY METHOD 03/28/2025 12:29 PM EDT [facility] RDW 21.1(H) 11.5 - 14.5 % LAB HEMATOLOGY METHOD 03/28/2025 12:29 PM EDT [facility] MPV 10.3 8.8 - 12.5 fL LAB HEMATOLOGY METHOD 03/28/2025 12:29 PM EDT [facility] nRBC 0.0 <=0.0 per 100 WBCs LAB HEMATOLOGY METHOD 03/28/2025 12:29 PM EDT [facility] Blood Venous blood specimen / Unknown Venipuncture / Unknown 03/28/2025 12:15 PM EDT 03/28/2025 12:22 PM EDT us Yin Christopher MD LAB BLOOD ORDERABLES Fi nal Result [facility] [address] [place] [address] * (ABNORMAL) CBC and Differential (03/28/2025 5:18 AM EDT) WBC Count 4.69 3.70 - 10.30 10*3/uL LAB HEMATOLOGY METHOD 03/28/2025 5:50 AM EDT [facility] RBC Count 2.41(L) 4.60 - 6.10 10*6/uL LAB HEMATOLOGY METHOD 03/28/2025 5:50 AM EDT [facility] HGB 7.0(L) 13.7 - 17.5 g/dL LAB HEMATOLOGY METHOD 03/28/2025 5:50 AM EDT [facility] HCT 23.1(L) 40.0 - 51.0 % LAB HEMATOLOGY METHOD 03/28/2025 5:50 AM EDT [facility] Platelet Count 209 155 - 369 10*3/uL LAB HEMATOLOGY METHOD 03/28/2025 5:50 AM EDT [facility] MCV 96 79 - 98 fL LAB HEMATOLOGY METHOD 03/28/2025 5:50 AM EDT [facility] MCH 29.0 26.0 - 32.0 pg LAB HEMATOLOGY METHOD 03/28/2025 5:50 AM EDT [facility] MCHC 30.3(L) 30.7 - 35.5 g/dL LAB HEMATOLOGY METHOD 03/28/2025 5:50 AM EDT [facility] RDW 20.9(H) 11.5 - 14.5 % LAB HEMATOLOGY METHOD 03/28/2025 5:50 AM EDT [facility] MPV 10.2 8.8 - 12.5 fL LAB HEMATOLOGY METHOD 03/28/2025 5:50 AM EDT [facility] nRBC 0.0 <=0.0 per 100 WBCs LAB HEMATOLOGY METHOD 03/28/2025 5:50 AM EDT [facility] Differential Type Automated LAB HEMATOLOGY METHOD 03/28/2025 5:50 AM EDT [facility] Neutrophils % 51 % LAB HEMATOLOGY METHOD 03/28/2025 5:50 AM EDT [facility] Lymphocytes % 38 % LAB HEMATOLOGY METHOD 03/28/2025 5:50 AM EDT [facility] Monocytes % 6 % LAB HEMATOLOGY METHOD 03/28/2025 5:50 AM EDT [facility] Eosinophils % 3 % LAB HEMATOLOGY METHOD 03/28/2025 5:50 AM EDT [facility] Basophils % 1 % LAB HEMATOLOGY METHOD 03/28/2025 5:50 AM EDT [facility] Immature Granulocytes % 1 % LAB HEMATOLOGY METHOD 03/28/2025 5:50 AM EDT [facility] Neutrophils Absolute 2.41 1.60 - 6.10 10*3/uL LAB HEMATOLOGY METHOD 03/28/2025 5:50 AM EDT [facility] Lymphocytes Absolute 1.79 1.20 - 3.90 10*3/uL LAB HEMATOLOGY METHOD 03/28/2025 5:50 AM EDT [facility] Monocytes Absolute 0.30 0.30 - 0.90 10*3/uL LAB HEMATOLOGY METHOD 03/28/2025 5:50 AM EDT [facility] Eosinophils Absolute 0.12 0.00 - 0.50 10*3/uL LAB HEMATOLOGY METHOD 03/28/2025 5:50 AM EDT [facility] Basophils Absolute 0.03 0.00 - 0.10 10*3/uL LAB HEMATOLOGY METHOD 03/28/2025 5:50 AM EDT [facility] Immature Granulocytes Absolute 0.04 0.00 - 0.06 10*3/uL LAB HEMATOLOGY METHOD 03/28/2025 5:50 AM EDT [facility] Blood Venous blood specimen / Unknown Venipuncture / Unknown 03/28/2025 5:18 AM EDT 03/28/2025 5:39 AM EDT Narrative [facility] - 03/28/2025 5:50 AM EDT Therapeutic decision making should be based on absolute values, rather than percentages. us Yin Christopher MD LAB BLOOD ORDERABLES Fi nal Result [facility] [address] [place] [address] * (ABNORMAL) Comprehensive Metabolic Panel, Plasma (03/28/2025 5:18 AM EDT) [facility] Glucose, Plasma 115(H) 74 - 99 mg/dL 03/28/2025 6:12 AM EDT [facility] BUN, Plasma 28(H) 8 - 23 mg/dL 03/28/2025 6:12 AM EDT [facility] Creatinine, Plasma 0.72 0.70 - 1.20 mg/dL 03/28/2025 6:12 AM EDT [facility] BUN/Creatinine Ratio 39 03/28/2025 6:12 AM EDT [facility] Sodium, Plasma 136 136 - 145 mmol/L 03/28/2025 6:12 AM EDT [facility] Potassium, Plasma 4.1 3.6 - 4.9 mmol/L 03/28/2025 6:12 AM EDT [facility] Chloride, Plasma 105 97 - 107 mmol/L 03/28/2025 6:12 AM EDT [facility] CO2, Plasma 22 22 - 29 mmol/L 03/28/2025 6:12 AM EDT [facility] Anion Gap 9 6 - 16 mmol/L 03/28/2025 6:12 AM EDT [facility] Total Calcium, Plasma 8.0(L) 8.9 - 10.2 mg/dL 03/28/2025 6:12 AM EDT [facility] Total Protein 5.0(L) 6.3 - 7.9 g/dL 03/28/2025 6:12 AM EDT [facility] Albumin, Plasma 2.6(L) 3.5 - 5.2 g/dL 03/28/2025 6:12 AM EDT [facility] AST, Plasma 21 10 - 50 U/L 03/28/2025 6:12 AM EDT [facility] ALT, Plasma 15 10 - 50 U/L 03/28/2025 6:12 AM EDT [facility] Alkaline Phosphatase, Plasma 86 40 - 115 U/L 03/28/2025 6:12 AM EDT [facility] Total Bilirubin, Plasma 0.5 0.2 - 1.1 mg/dL 03/28/2025 6:12 AM EDT [facility] eGFRcr 100.8 mL/min/1.7 3m*2 03/28/2025 6:12 AM EDT [facility] Comment:Reported eGFRcr in m L/min/1.73m2 is based the CKD-EPI 2020 equation that does not use a race coefficient. Blood Venous blood specimen / Unknown Venipuncture / Unknown 03/28/2025 5:18 AM EDT 03/28/2025 5:38 AM EDT Yin Christopher MD LAB BLOOD ORDERABLES Fi nal Result [facility] [address] [place] [address] * Magnesium, Plasma (03/28/2025 5:18 AM EDT) Magnesium, Plasma 2.1 1.9 - 2.4 mg/dL 03/28/2025 6:12 AM EDT [facility] Blood Venous blood specimen / Unknown Venipuncture / Unknown 03/28/2025 5:18 AM EDT 03/28/2025 5:38 AM EDT Yin Christopher MD LAB BLOOD ORDERABLES Fi nal Result Performing Organization Address City/[facility]/[place] [address] * Phosphorus, Plasma (03/28/2025 5:18 AM EDT) Phosphorus, Plasma 2.9 2.5 - 4.5 mg/dL 03/28/2025 6:12 AM EDT [facility] Blood Venous blood specimen / Unknown Venipuncture / Unknown 03/28/2025 5:18 AM EDT 03/28/2025 5:38 AM EDT Yin Christopher MD LAB BLOOD ORDERABLES Fi nal Result [facility] [address] [place] [address] * (ABNORMAL) Hemoglobin and Hematocrit, Blood (03/28/2025 12:32 AM EDT) HGB 7.1(L) 13.7 - 17.5 g/dL LAB HEMATOLOGY METHOD 03/28/2025 1:01 AM EDT [facility] HCT 22.7(L) 40.0 - 51.0 % LAB HEMATOLOGY METHOD 03/28/2025 1:01 AM EDT [facility] Blood Venous blood specimen / Unknown Venipuncture / Unknown 03/28/2025 12:32 AM EDT 03/28/2025 12:45 AM EDT us Ramezgucci Cordoba APRN, DNP LAB BLOOD ORDERAB LES Final Result Performing Organization Address City/[facility]/ZIP Co de Phone Number [facility] [address] [place] [address] * (ABNORMAL) Hemoglobin and Hematocrit, Blood (03/27/2025 6:11 PM EDT) HGB 7.5(L) 13.7 - 17.5 g/dL LAB HEMATOLOGY METHOD 03/27/2025 6:27 PM EDT [facility] HCT 23.6(L) 40.0 - 51.0 % LAB HEMATOLOGY METHOD 03/27/2025 6:27 PM EDT [facility] Blood Venous blood specimen / Unknown Venipuncture / Unknown 03/27/2025 6:11 PM EDT 03/27/2025 6:19 PM EDT us Ramezgucci Cordoba APRN, DNP LAB BLOOD ORDERAB LES Final Result [facility] [address] [place] [address] * (ABNORMAL) Hemoglobin and Hematocrit, Blood (03/27/2025 12:12 PM EDT) HGB 7.4(L) 13.7 - 17.5 g/dL LAB HEMATOLOGY METHOD 03/27/2025 12:28 PM EDT [facility] HCT 24.2(L) 40.0 - 51.0 % LAB HEMATOLOGY METHOD 03/27/2025 12:28 PM EDT [facility] Blood Venous blood specimen / Unknown Venipuncture / Unknown 03/27/2025 12:12 PM EDT 03/27/2025 12:21 PM EDT us Ramez N Arturoaldageorgetamanna BEHAVIORAL HEALTH CASE MANAGER, DNP LAB BLOOD ORDERAB LES Final Result [facility] [address] [place] [address] * (ABNORMAL) CBC and Differential (03/27/2025 5:55 AM EDT) WBC Count 4.84 3.70 - 10.30 10*3/uL LAB HEMATOLOGY METHOD 03/27/2025 6:32 AM EDT [facility] RBC Count 2.53(L) 4.60 - 6.10 10*6/uL LAB HEMATOLOGY METHOD 03/27/2025 6:32 AM EDT [facility] HGB 7.5(L) 13.7 - 17.5 g/dL LAB HEMATOLOGY METHOD 03/27/2025 6:32 AM EDT [facility] HCT 23.7(L) 40.0 - 51.0 % LAB HEMATOLOGY METHOD 03/27/2025 6:32 AM EDT [facility] Platelet Count 206 155 - 369 10*3/uL LAB HEMATOLOGY METHOD 03/27/2025 6:32 AM EDT [facility] MCV 94 79 - 98 fL LAB HEMATOLOGY METHOD 03/27/2025 6:32 AM EDT [facility] MCH 29.6 26.0 - 32.0 pg LAB HEMATOLOGY METHOD 03/27/2025 6:32 AM EDT [facility] MCHC 31.6 30.7 - 35.5 g/dL LAB HEMATOLOGY METHOD 03/27/2025 6:32 AM EDT [facility] RDW 21.2(H) 11.5 - 14.5 % LAB HEMATOLOGY METHOD 03/27/2025 6:32 AM EDT [facility] MPV 10.1 8.8 - 12.5 fL LAB HEMATOLOGY METHOD 03/27/2025 6:32 AM EDT [facility] nRBC 0.0 <=0.0 per 100 WBCs LAB HEMATOLOGY METHOD 03/27/2025 6:32 AM EDT [facility] Differential Type Automated LAB HEMATOLOGY METHOD 03/27/2025 6:32 AM EDT [facility] Neutrophils % 47 % LAB HEMATOLOGY METHOD 03/27/2025 6:32 AM EDT [facility] Lymphocytes % 40 % LAB HEMATOLOGY METHOD 03/27/2025 6:32 AM EDT [facility] Monocytes % 8 % LAB HEMATOLOGY METHOD 03/27/2025 6:32 AM EDT [facility] Eosinophils % 3 % LAB HEMATOLOGY METHOD 03/27/2025 6:32 AM EDT [facility] Basophils % 1 % LAB HEMATOLOGY METHOD 03/27/2025 6:32 AM EDT [facility] Immature Granulocytes % 1 % LAB HEMATOLOGY METHOD 03/27/2025 6:32 AM EDT [facility] Neutrophils Absolute 2.26 1.60 - 6.10 10*3/uL LAB HEMATOLOGY METHOD 03/27/2025 6:32 AM EDT [facility] Lymphocytes Absolute 1.94 1.20 - 3.90 10*3/uL LAB HEMATOLOGY METHOD 03/27/2025 6:32 AM EDT [facility] Monocytes Absolute 0.39 0.30 - 0.90 10*3/uL LAB HEMATOLOGY METHOD 03/27/2025 6:32 AM EDT [facility] Eosinophils Absolute 0.14 0.00 - 0.50 10*3/uL LAB HEMATOLOGY METHOD 03/27/2025 6:32 AM EDT [facility] Basophils Absolute 0.04 0.00 - 0.10 10*3/uL LAB HEMATOLOGY METHOD 03/27/2025 6:32 AM EDT [facility] Immature Granulocytes Absolute 0.07(H) 0.00 - 0.06 10*3/uL LAB HEMATOLOGY METHOD 03/27/2025 6:32 AM EDT [facility] Blood Venous blood specimen / Unknown Venipuncture / Unknown 03/27/2025 5:55 AM EDT 03/27/2025 6:23 AM EDT [facility] - 03/27/2025 6:32 AM EDT Therapeutic decision making should be based on absolute values, rather than percentages. Yin Christopher MD LAB BLOOD ORDERABLES Fi nal Result [facility] [address] [place] [address] * (ABNORMAL) Comprehensive Metabolic Panel, Plasma (03/27/2025 5:55 AM EDT) Glucose, Plasma 101(H) 74 - 99 mg/dL 03/27/2025 6:51 AM EDT [facility] BUN, Plasma 22 8 - 23 mg/dL 03/27/2025 6:51 AM EDT [facility] Creatinine, Plasma 0.73 0.70 - 1.20 mg/dL 03/27/2025 6:51 AM EDT [facility] BUN/Creatinine Ratio 30 03/27/2025 6:51 AM EDT [facility] Sodium, Plasma 135(L) 136 - 145 mmol/L 03/27/2025 6:51 AM EDT [facility] Potassium, Plasma 3.9 3.6 - 4.9 mmol/L 03/27/2025 6:51 AM EDT [facility] Chloride, Plasma 104 97 - 107 mmol/L 03/27/2025 6:51 AM EDT [facility] CO2, Plasma 21(L) 22 - 29 mmol/L 03/27/2025 6:51 AM EDT [facility] Anion Gap 10 6 - 16 mmol/L 03/27/2025 6:51 AM EDT [facility] Total Calcium, Plasma 8.0(L) 8.9 - 10.2 mg/dL 03/27/2025 6:51 AM EDT [facility] Total Protein 5.1(L) 6.3 - 7.9 g/dL 03/27/2025 6:51 AM EDT [facility] Albumin, Plasma 2.7(L) 3.5 - 5.2 g/dL 03/27/2025 6:51 AM EDT [facility] AST, Plasma 24 10 - 50 U/L 03/27/2025 6:51 AM EDT [facility] ALT, Plasma 18 10 - 50 U/L 03/27/2025 6:51 AM EDT [facility] Alkaline Phosphatase, Plasma 80 40 - 115 U/L 03/27/2025 6:51 AM EDT [facility] Total Bilirubin, Plasma 0.6 0.2 - 1.1 mg/dL 03/27/2025 6:51 AM EDT [facility] eGFRcr 100.3 mL/min/1.7 3m*2 03/27/2025 6:51 AM EDT [facility] Comment:Reported eGFRcr in m L/min/1.73m2 is based the CKD-EPI 2020 equation that does not use a race coefficient. Blood Venous blood specimen / Unknown Venipuncture / Unknown 03/27/2025 5:55 AM EDT 03/27/2025 6:22 AM EDT Yin Christopher MD LAB BLOOD ORDERABLES Fi nal Result Performing Organization Address City/[facility]/ZIP Co de Phone Number [facility] [address] [place] [address] * (ABNORMAL) Magnesium, Plasma (03/27/2025 5:55 AM EDT) Magnesium, Plasma 1.8(L) 1.9 - 2.4 mg/dL 03/27/2025 6:51 AM EDT [facility] Blood Venous blood specimen / Unknown Venipuncture / Unknown 03/27/2025 5:55 AM EDT 03/27/2025 6:22 AM EDT Yin Christopher MD LAB BLOOD ORDERABLES Fi nal Result [facility] [address] [place] [address] * Phosphorus, Plasma (03/27/2025 5:55 AM EDT) Phosphorus, Plasma 3.0 2.5 - 4.5 mg/dL 03/27/2025 6:51 AM EDT [facility] Blood Venous blood specimen / Unknown Venipuncture / Unknown 03/27/2025 5:55 AM EDT 03/27/2025 6:22 AM EDT us Yin Christopher MD LAB BLOOD ORDERABLES Fi nal Result Performing Organization Address City/[facility]/ZIP Co de Phone Number [facility] [address] [place] [address] * (ABNORMAL) Hemoglobin and Hematocrit, Blood (03/27/2025 5:55 AM EDT) HGB 7.5(L) 13.7 - 17.5 g/dL LAB HEMATOLOGY METHOD 03/27/2025 6:32 AM EDT [facility] HCT 23.7(L) 40.0 - 51.0 % LAB HEMATOLOGY METHOD 03/27/2025 6:32 AM EDT [facility] Blood Venous blood specimen / Unknown Venipuncture / Unknown 03/27/2025 5:55 AM EDT 03/27/2025 6:23 AM EDT us Ramez Cordoba APRN, DNP LAB BLOOD ORDERAB LES Final Result Performing Organization Address City/[facility] Co de Phone Number [facility] [address] [place] [address] * (ABNORMAL) Hemoglobin and Hematocrit, Blood (03/26/2025 11:39 PM EDT) HGB 7.2(L) 13.7 - 17.5 g/dL LAB HEMATOLOGY METHOD 03/26/2025 11:52 PM EDT [facility] HCT 23.2(L) 40.0 - 51.0 % LAB HEMATOLOGY METHOD 03/26/2025 11:52 PM EDT [facility] Blood Venous blood specimen / Unknown Venipuncture / Unknown 03/26/2025 11:39 PM EDT 03/26/2025 11:45 PM EDT us Ramezluz Cordoba BEHAVIORAL HEALTH CASE MANAGER, DNP LAB BLOOD ORDERAB LES Final Result Performing Organization Address City/[facility]/ZIP Co de Phone Number [facility] [address] [place] [address] * (ABNORMAL) Hemoglobin and Hematocrit, Blood (03/26/2025 5:52 PM EDT) HGB 7.8(L) 13.7 - 17.5 g/dL LAB HEMATOLOGY METHOD 03/26/2025 6:12 PM EDT [facility] HCT 24.0(L) 40.0 - 51.0 % LAB HEMATOLOGY METHOD 03/26/2025 6:12 PM EDT [facility] Blood Venous blood specimen / Unknown Venipuncture / Unknown 03/26/2025 5:52 PM EDT 03/26/2025 5:58 PM EDT us Ramezluz Cordoba APRN, DNP LAB BLOOD ORDERAB LES Final Result Performing Organization Address City/[facility]/ZIP Co de Phone Number [facility] [address] [place] [address] * (ABNORMAL) Hemoglobin and Hematocrit, Blood (03/26/2025 11:42 AM EDT) HGB 7.3(L) 13.7 - 17.5 g/dL LAB HEMATOLOGY METHOD 03/26/2025 11:53 AM EDT [facility] HCT 23.5(L) 40.0 - 51.0 % LAB HEMATOLOGY METHOD 03/26/2025 11:53 AM EDT [facility] Blood Venous blood specimen / Unknown Venipuncture / Unknown 03/26/2025 11:42 AM EDT 03/26/2025 11:45 AM EDT us Ramezluz Cordoba BEHAVIORAL HEALTH CASE MANAGER, DNP LAB BLOOD ORDERAB LES Final Result [facility] [address] [place] [address] * (ABNORMAL) Hemoglobin and Hematocrit, Blood (03/26/2025 5:38 AM EDT) HGB 7.7(L) 13.7 - 17.5 g/dL LAB HEMATOLOGY METHOD 03/26/2025 6:02 AM EDT [facility] HCT 24.6(L) 40.0 - 51.0 % LAB HEMATOLOGY METHOD 03/26/2025 6:02 AM EDT [facility] Blood Venous blood specimen / Unknown Venipuncture / Unknown 03/26/2025 5:38 AM EDT 03/26/2025 5:48 AM EDT us Ramezluz Cordoba APRN, JESSE LAB BLOOD ORDERAB LES Final Result Performing Organization Address [facility]/ZIP Co de Phone Number [facility] [address] [place] [address] * (ABNORMAL) Hemoglobin and Hematocrit, Blood (03/26/2025 12:17 AM EDT) HGB 7.5(L) 13.7 - 17.5 g/dL LAB HEMATOLOGY METHOD 03/26/2025 12:33 AM EDT [facility] HCT 23.8(L) 40.0 - 51.0 % LAB HEMATOLOGY METHOD 03/26/2025 12:33 AM EDT [facility] Blood Venous blood specimen / Unknown Venipuncture / Unknown 03/26/2025 12:17 AM EDT 03/26/2025 12:26 AM EDT us Ramezgucci Cordoba APRN, JESSE LAB BLOOD ORDERAB LES Final Result Performing Organization Address [facility]/ZIP Co de Phone Number [facility] [address] [place] [address] * (ABNORMAL) Basic metabolic panel (03/26/2025 12:17 AM EDT) Glucose, Plasma 99 74 - 99 mg/dL 03/26/2025 12:54 AM EDT [facility] BUN, Plasma 24(H) 8 - 23 mg/dL 03/26/2025 12:54 AM EDT [facility] Creatinine, Plasma 0.75 0.70 - 1.20 mg/dL 03/26/2025 12:54 AM EDT [facility] BUN/Creatinine Ratio 32 03/26/2025 12:54 AM EDT [facility] Sodium, Plasma 137 136 - 145 mmol/L 03/26/2025 12:54 AM EDT [facility] Potassium, Plasma 4.1 3.6 - 4.9 mmol/L 03/26/2025 12:54 AM EDT [facility] Chloride, Plasma 107 97 - 107 mmol/L 03/26/2025 12:54 AM EDT [facility] CO2, Plasma 19(L) 22 - 29 mmol/L 03/26/2025 12:54 AM EDT [facility] Anion Gap 11 6 - 16 mmol/L 03/26/2025 12:54 AM EDT [facility] Total Calcium, Plasma 7.9(L) 8.9 - 10.2 mg/dL 03/26/2025 12:54 AM EDT [facility] eGFRcr 99.5 mL/min/1.7 3m*2 03/26/2025 12:54 AM EDT [facility] Comment:Reported eGFRcr in m L/min/1.73m2 is based the CKD-EPI 2020 equation that does not use a race coefficient. Blood Venous blood specimen / Unknown Venipuncture / Unknown 03/26/2025 12:17 AM EDT 03/26/2025 12:26 AM EDT us Ramezgucci Cordoba APRN, DNP LAB BLOOD ORDERAB LES Final Result [facility] [address] [place] [address] * (ABNORMAL) CBC (03/26/2025 12:17 AM EDT) WBC Count 5.76 3.70 - 10.30 10*3/uL LAB HEMATOLOGY METHOD 03/26/2025 12:33 AM EDT [facility] RBC Count 2.61(L) 4.60 - 6.10 10*6/uL LAB HEMATOLOGY METHOD 03/26/2025 12:33 AM EDT [facility] HGB 7.5(L) 13.7 - 17.5 g/dL LAB HEMATOLOGY METHOD 03/26/2025 12:33 AM EDT [facility] HCT 23.8(L) 40.0 - 51.0 % LAB HEMATOLOGY METHOD 03/26/2025 12:33 AM EDT [facility] Platelet Count 214 155 - 369 10*3/uL LAB HEMATOLOGY METHOD 03/26/2025 12:33 AM EDT [facility] MCV 91 79 - 98 fL LAB HEMATOLOGY METHOD 03/26/2025 12:33 AM EDT [facility] MCH 28.7 26.0 - 32.0 pg LAB HEMATOLOGY METHOD 03/26/2025 12:33 AM EDT [facility] MCHC 31.5 30.7 - 35.5 g/dL LAB HEMATOLOGY METHOD 03/26/2025 12:33 AM EDT [facility] RDW 20.7(H) 11.5 - 14.5 % LAB HEMATOLOGY METHOD 03/26/2025 12:33 AM EDT [facility] MPV 10.0 8.8 - 12.5 fL LAB HEMATOLOGY METHOD 03/26/2025 12:33 AM EDT [facility] nRBC 0.3(H) <=0.0 per 100 WBCs LAB HEMATOLOGY METHOD 03/26/2025 12:33 AM EDT [facility] Blood Venous blood specimen / Unknown Venipuncture / Unknown 03/26/2025 12:17 AM EDT 03/26/2025 12:26 AM EDT us Ramezluz Cordoba BEHAVIORAL HEALTH CASE MANAGER, DNP LAB BLOOD ORDERAB LES Final Result [facility] [address] [place] [address] * (ABNORMAL) Hemoglobin and Hematocrit, Blood (03/25/2025 6:17 PM EDT) [facility] Signature HGB 7.6(L) 13.7 - 17.5 g/dL LAB HEMATOLOGY METHOD 03/25/2025 6:33 PM EDT [facility] HCT 24.2(L) 40.0 - 51.0 % LAB HEMATOLOGY METHOD 03/25/2025 6:33 PM EDT [facility] Blood Venous blood specimen / Unknown Venipuncture / Unknown 03/25/2025 6:17 PM EDT 03/25/2025 6:23 PM EDT us Ramez Cordoba APRN, JESSE LAB BLOOD ORDERAB LES Final Result [facility] [address] [place] [address] * Transfuse RBC (03/25/2025 5:27 PM EDT) [...] abdominal pain, fever, gastrointestinal bleeding and call combination technician GI if present. - Findings and recommendations were discussed with patient. - Findings and recommendations to be conveyed to primary team. Indication Acute GI bleeding Medications See anesthesia record for anesthesia administered medications. Staff Staff Role Elbert Monreal CRNA CRNA [place], Jolynn Endo Coal Drier Operator Betsy Ellis, RN Endo Nurse Meagan Aggarwal [...] RBC: 1 Units (03/25/2025 12:25 PM EDT) [facility] Product Code [id number] BLOO D BANK Dispense Status Transfused BLOOD BANK Blood Expiration Date [id number] BLOOD BANK Unit Number [id number] B LOOD BANK Product Blood Type 5100 BLOOD BANK Blood Type O+ BLOOD BANK Crossmatch Compatible BLOOD BANK Other Yin Christopher MD BLOOD BANK PRODUCT ORDE RABSABINO Final Result BLOOD BANK [address] [place] [address], * (ABNORMAL) Hemoglobin and Hematocrit, Blood (03/25/2025 11:46 AM EDT) HGB 6.5(L) 13.7 - 17.5 g/dL LAB HEMATOLOGY METHOD 03/25/2025 12:05 PM EDT [facility] HCT 20.9(L) 40.0 - 51.0 % LAB HEMATOLOGY METHOD 03/25/2025 12:05 PM EDT [facility] Blood Venous blood specimen / Unknown Venipuncture / Unknown 03/25/2025 11:46 AM EDT 03/25/2025 12:04 PM EDT us Ramez N Adalid BEHAVIORAL HEALTH CASE MANAGER, DNP LAB BLOOD ORDERAB LES Final Result [facility] [address] [place] [address] * (ABNORMAL) Troponin T, High Sensitivity, 2 Hour, Plasma (03/25/2025 8:28 AM EDT) Troponin T, High Sensitivity, 2 Hour 74(H) <19 ng/L 03/25/2025 9:14 AM EDT [facility] Troponin Delta 3 <10 ng/L 03/25/2025 9:14 AM EDT [facility] Troponin Delta Interpretation Not Significant 03/25/2025 9:14 AM EDT [facility] Comment:Not Significant. No acute change in troponin observed between the baseline and 2 hour samples. Blood Venous blood specimen / Unknown Venipuncture / Unknown 03/25/2025 8:28 AM EDT 03/25/2025 8:44 AM EDT us Ramezluz Cordoba APRN, DNP LAB BLOOD ORDERAB LES Final Result Performing Organization Address City/[facility]/ZIP Co de Phone Number [facility] [address] [place] [address] * (ABNORMAL) Hemoglobin and Hematocrit, Blood (03/25/2025 8:28 AM EDT) HGB 7.0(L) 13.7 - 17.5 g/dL LAB HEMATOLOGY METHOD 03/25/2025 9:02 AM EDT [facility] HCT 22.3(L) 40.0 - 51.0 % LAB HEMATOLOGY METHOD 03/25/2025 9:02 AM EDT [facility] Blood Venous blood specimen / Unknown Venipuncture / Unknown 03/25/2025 8:28 AM EDT 03/25/2025 8:46 AM EDT us Ramezluz Cordoba APRN, DNP LAB BLOOD ORDERAB LES Final Result Performing Organization Address City/[facility]/ZIP Co de Phone Number [facility] [address] [place] [address] * Haptoglobin (03/25/2025 6:23 AM EDT) Haptoglobin, Serum 167 40 - 219 mg/dL 03/25/2025 6:59 AM EDT [facility] Blood Venous blood specimen / Unknown Venipuncture / Unknown 03/25/2025 6:23 AM EDT 03/25/2025 6:29 AM EDT us Ramezluz Cordoba APRN, DNP LAB BLOOD ORDERAB LES Final Result Performing Organization Address [facility]/ZIP Co de Phone Number [facility] [address] [place] [address] * (ABNORMAL) Troponin T, High Sensitivity, 0 Hour Plasma, Reflex to 2 Hour (03/25/2025 6:23 AM EDT) Troponin T, High Sensitivity, 0 Hour 77(H) <19 ng/L 03/25/2025 6:58 AM EDT [facility] Blood Venous blood specimen / Unknown Venipuncture / Unknown 03/25/2025 6:23 AM EDT 03/25/2025 6:29 AM EDT us Ramezgucci Cordoba APRN, DNP LAB BLOOD ORDERAB LES Final Result Performing Organization Address City/[facility]/ZIP Co de Phone Number [facility] [address] [place] [address] * Lactate, venous (03/25/2025 6:23 AM EDT) Lactate, Venous, Whole Blood 0.8 0.5 - 2.2 mmol/L LAB HEMATOLOGY METHOD 03/25/2025 6:28 AM EDT [facility] Blood Venous blood specimen / Unknown Venipuncture / Unknown 03/25/2025 6:23 AM EDT 03/25/2025 6:27 AM EDT us Ramezgucci Cordoba APRN, JESSE LAB BLOOD ORDERAB LES Final Result Performing Organization Address City/[facility]/ZIP Co de Phone Number [facility] [address] [place] [address] * (ABNORMAL) Iron & Total Iron Binding Capacity, Plasma (Includes Transferrin) (03/25/2025 3:36 AM EDT) [facility] Iron, Plasma 81 50 - 170 ug/dL 03/25/2025 6:04 AM EDT [facility] Transferrin, Plasma 195(L) 200 - 360 mg/dL 03/25/2025 6:04 AM EDT [facility] Total Iron Binding Capacity, Plasma 244 240 - 450 ug/mL 03/25/2025 6:04 AM EDT [facility] Transferrin Saturation 33 14 - 50 % 03/25/2025 6:04 AM EDT [facility] Blood Venous blood specimen / Unknown Venipuncture / Unknown 03/25/2025 3:36 AM EDT 03/25/2025 3:50 AM EDT us Ramez Cordoba APRN, DNP LAB BLOOD ORDERAB LES Final Result Performing Organization Address City/[facility]/ZIP Co de Phone Number [facility] [address] [place] [address] * C-reactive protein (03/25/2025 3:36 AM EDT) Pathologist [facility] CRP, Plasma 6.3 <=8.0 mg/L 03/25/2025 6:04 AM EDT [facility] Blood Venous blood specimen / Unknown Venipuncture / Unknown 03/25/2025 3:36 AM EDT 03/25/2025 3:50 AM EDT Narrative [facility] - 03/25/2025 6:04 AM EDT This CRP test is appropriate for assessment of infection, systemic inflammation and/or tissue injury. To assess cardiovascular disease risk order high sensitivity CRP (CRPH). us Ramez Cordoba APRN, JESSE LAB BLOOD ORDERAB LES Final Result Performing Organization Address [facility]/ZIP Co de Phone Number [facility] [address] [place] [address] * (ABNORMAL) Hepatic function panel (03/25/2025 3:36 AM EDT) Conjugated Bilirubin, Plasma 0.5(H) <=0.3 mg/dL 03/25/2025 4:22 AM EDT [facility] Alkaline Phosphatase, Plasma 74 40 - 115 U/L 03/25/2025 4:22 AM EDT [facility] Total Bilirubin, Plasma 1.0 0.2 - 1.1 mg/dL 03/25/2025 4:22 AM EDT [facility] Albumin, Plasma 2.7(L) 3.5 - 5.2 g/dL 03/25/2025 4:22 AM EDT [facility] Total Protein 5.1(L) 6.3 - 7.9 g/dL 03/25/2025 4:22 AM EDT [facility] ALT, Plasma 21 10 - 50 U/L 03/25/2025 4:22 AM EDT [facility] AST, Plasma 26 10 - 50 U/L 03/25/2025 4:22 AM EDT [facility] Blood Venous blood specimen / Unknown Venipuncture / Unknown 03/25/2025 3:36 AM EDT 03/25/2025 3:50 AM EDT us Gretchen Hidalgo MD LAB BLOOD ORDERABLES Final Re sult Performing Organization Address City/[facility]/ZIP Co de Phone Number [facility] [address] [place] [address] * ECG Adult (03/25/2025 3:31 AM EDT) [facility] EKG DIAGNOSIS CLASS Abnormal MUSE ECG Ventricular Rate 62 BPM MUSE ECG Atrial Rate 62 BPM MUSE ECG NC Interval 182 ms MUSE ECG QRSD Interval 94 ms MUSE ECG QT Interval 450 ms MUSE ECG QTC Interval 456 ms MUSE ECG P [place] 69 degrees MUSE ECG R [place] 42 degrees MUSE ECG T Wave [place] 138 degrees MUSE ECG Diagnosis Normal sinus [...] * Lactate dehydrogenase (03/25/2025 3:29 AM EDT) [facility] LDH, Plasma 236 116 - 250 U/L 03/25/2025 6:09 AM EDT [facility] Blood Venous blood specimen / Unknown Venipuncture / Unknown 03/25/2025 3:29 AM EDT 03/25/2025 3:50 AM EDT us Ramez Cordoba APRN, DNP LAB BLOOD ORDERAB LES Final Result [facility] [address] [place] [address] * (ABNORMAL) Reticulocytes (03/25/2025 3:29 AM EDT) [facility] Reticulocyte Absolute 214.2(H) 40.0 - 110.0 10*3/uL LAB HEMATOLOGY METHOD 03/25/2025 5:46 AM EDT [facility] Immature Reticulocyte Fraction 43.1(H) 3.1 - 17.6 % LAB HEMATOLOGY METHOD 03/25/2025 5:46 AM EDT [facility] Reticulocyte Hemoglobin 29.9 28 - 38 pg LAB HEMATOLOGY METHOD 03/25/2025 5:46 AM EDT [facility] Reticulocyte Count 8.50(H) 0.90 - 2.50 % LAB HEMATOLOGY METHOD 03/25/2025 5:46 AM EDT [facility] Blood Venous blood specimen / Unknown Venipuncture / Unknown 03/25/2025 3:29 AM EDT 03/25/2025 3:32 AM EDT us Ramez N Adalid BEH[employer]IOR[employer] HE[employer] CASE MANAGER, DNP LAB BLOOD ORDERAB LES Final Result Performing Organization Address City/[facility]/ZIP Co de Phone Number [facility] [address] [place] [address] * (ABNORMAL) N-Terminal Probnp (03/25/2025 3:29 AM EDT) N-Terminal, PROBNP, Plasma 1,495(H) 0 - 899 pg/mL 03/25/2025 6:09 AM EDT [facility] Blood Venous blood specimen / Unknown Venipuncture / Unknown 03/25/2025 3:29 AM EDT 03/25/2025 3:50 AM EDT us Ramez N Adalid JARRELLN, DNP LAB BLOOD ORDERAB LES Final Result Performing Organization Address City/[facility]/ZIP Co de Phone Number [facility] [address] [place] [address] * Procalcitonin (03/25/2025 3:29 AM EDT) Procalcitonin, Plasma 0.08 <0.09 ng/mL 03/25/2025 6:09 AM EDT [facility] Blood Venous blood specimen / Unknown Venipuncture / Unknown 03/25/2025 3:29 AM EDT 03/25/2025 3:50 AM EDT Narrative [facility] - 03/25/2025 6:09 AM EDT Procalcitonin [...] predict 28 day mortality risk. Please consult [email or web address]-mjx-[email or web address] for more information. Test performed at [facility]. us Ramez Cordoba APRN, DNP LAB BLOOD ORDERAB LES Final Result Performing Organization Address [facility] Co de Phone Number [facility] [address] [place] [address] * (ABNORMAL) PT-INR (03/25/2025 3:29 AM EDT) [facility] Prothrombin Time 20.1(H) 12.0 - 14.3 sec 03/25/2025 3:47 AM EDT [facility] INR 1.7(H) 0.9 - 1.1 03/25/2025 3:47 AM EDT [facility] Blood Venous blood specimen / Unknown Venipuncture / Unknown 03/25/2025 3:29 AM EDT 03/25/2025 3:32 AM EDT Narrative [facility] - 03/25/2025 3:47 AM EDT OPTIMAL INR RANGES FOR PATIENT ON ORAL ANTICOAGULANT THERAPY Prevention of venous thromboembolism INR 2.0 to 3.0 In patients with heart disease: Atrial fibrillation INR 2.0 to 3.0 Valvular heart disease INR 2.0 to 3.0 Tissue heart valves INR 2.0 to 3.0 Mechanical prosthetic valves INR 2.5 to 3.5 Prevention of recurrent VA INR 2.5 to 3.5 us Gretchen Hidalgo MD LAB BLOOD ORDERABLES Final Re sult Performing Organization Address [facility] Co de Phone Number [facility] [address] [place] [address] * Type and screen (03/25/2025 3:29 AM [...] ORDERABLE S Final Result Performing Organization Address [facility]/ZIP Co de Phone Number BLOOD BANK [address] [place] [address], * (ABNORMAL) Troponin now and 120 min (03/25/2025 3:29 AM EDT) Troponin T, High Sensitivity, 0 Hour 81(H) <19 ng/L 03/25/2025 4:20 AM EDT [facility] Blood Venous blood specimen / Unknown Venipuncture / Unknown 03/25/2025 3:29 AM EDT 03/25/2025 3:50 AM EDT Gretchen Hidalgo MD LAB BLOOD ORDERABLES Final Re sult [facility] [address] [place] [address] * (ABNORMAL) BMP (03/25/2025 3:29 AM EDT) Glucose, Plasma 104(H) 74 - 99 mg/dL 03/25/2025 4:20 AM EDT [facility] BUN, Plasma 33(H) 8 - 23 mg/dL 03/25/2025 4:20 AM EDT [facility] Creatinine, Plasma 0.85 0.70 - 1.20 mg/dL 03/25/2025 4:20 AM EDT [facility] BUN/Creatinine Ratio 39 03/25/2025 4:20 AM EDT [facility] Sodium, Plasma 137 136 - 145 mmol/L 03/25/2025 4:20 AM EDT [facility] Potassium, Plasma 4.3 3.6 - 4.9 mmol/L 03/25/2025 4:20 AM EDT [facility] Chloride, Plasma 106 97 - 107 mmol/L 03/25/2025 4:20 AM EDT [facility] CO2, Plasma 21(L) 22 - 29 mmol/L 03/25/2025 4:20 AM EDT [facility] Anion Gap 10 6 - 16 mmol/L 03/25/2025 4:20 AM EDT [facility] Total Calcium, Plasma 8.1(L) 8.9 - 10.2 mg/dL 03/25/2025 4:20 AM EDT [facility] eGFRcr 95.8 mL/min/1.7 3m*2 03/25/2025 4:20 AM EDT [facility] Comment:Reported eGFRcr in m L/min/1.73m2 is based the CKD-EPI 2020 equation that does not use a race coefficient. Blood Venous blood specimen / Unknown Venipuncture / Unknown 03/25/2025 3:29 AM EDT 03/25/2025 3:50 AM EDT us Gretchen Hidalgo MD LAB BLOOD ORDERABLES Final Re sult [facility] [address] [place] [address] * (ABNORMAL) CBC with Diff (03/25/2025 3:29 AM EDT) WBC Count 7.34 3.70 - 10.30 10*3/uL LAB HEMATOLOGY METHOD 03/25/2025 3:34 AM EDT [facility] RBC Count 2.56(L) 4.60 - 6.10 10*6/uL LAB HEMATOLOGY METHOD 03/25/2025 3:34 AM EDT [facility] HGB 7.4(L) 13.7 - 17.5 g/dL LAB HEMATOLOGY METHOD 03/25/2025 3:34 AM EDT [facility] HCT 23.8(L) 40.0 - 51.0 % LAB HEMATOLOGY METHOD 03/25/2025 3:34 AM EDT [facility] Platelet Count 220 155 - 369 10*3/uL LAB HEMATOLOGY METHOD 03/25/2025 3:34 AM EDT [facility] MCV 93 79 - 98 fL LAB HEMATOLOGY METHOD 03/25/2025 3:34 AM EDT [facility] MCH 28.9 26.0 - 32.0 pg LAB HEMATOLOGY METHOD 03/25/2025 3:34 AM EDT [facility] MCHC 31.1 30.7 - 35.5 g/dL LAB HEMATOLOGY METHOD 03/25/2025 3:34 AM EDT [facility] RDW 20.9(H) 11.5 - 14.5 % LAB HEMATOLOGY METHOD 03/25/2025 3:34 AM EDT [facility] MPV 9.4 8.8 - 12.5 fL LAB HEMATOLOGY METHOD 03/25/2025 3:34 AM EDT [facility] nRBC 0.3(H) <=0.0 per 100 WBCs LAB HEMATOLOGY METHOD 03/25/2025 3:34 AM EDT [facility] Differential Type Automated LAB HEMATOLOGY METHOD 03/25/2025 3:34 AM EDT [facility] Neutrophils % 54 % LAB HEMATOLOGY METHOD 03/25/2025 3:34 AM EDT [facility] Lymphocytes % 34 % LAB HEMATOLOGY METHOD 03/25/2025 3:34 AM EDT [facility] Monocytes % 8 % LAB HEMATOLOGY METHOD 03/25/2025 3:34 AM EDT [facility] Eosinophils % 1 % LAB HEMATOLOGY METHOD 03/25/2025 3:34 AM EDT [facility] Basophils % 1 % LAB HEMATOLOGY METHOD 03/25/2025 3:34 AM EDT [facility] Immature Granulocytes % 2 % LAB HEMATOLOGY METHOD 03/25/2025 3:34 AM EDT [facility] Neutrophils Absolute 4.01 1.60 - 6.10 10*3/uL LAB HEMATOLOGY METHOD 03/25/2025 3:34 AM EDT [facility] Lymphocytes Absolute 2.52 1.20 - 3.90 10*3/uL LAB HEMATOLOGY METHOD 03/25/2025 3:34 AM EDT [facility] Monocytes Absolute 0.56 0.30 - 0.90 10*3/uL LAB HEMATOLOGY METHOD 03/25/2025 3:34 AM EDT [facility] Eosinophils Absolute 0.05 0.00 - 0.50 10*3/uL LAB HEMATOLOGY METHOD 03/25/2025 3:34 AM EDT [facility] Basophils Absolute 0.05 0.00 - 0.10 10*3/uL LAB HEMATOLOGY METHOD 03/25/2025 3:34 AM EDT [facility] Immature Granulocytes Absolute 0.15(H) 0.00 - 0.06 10*3/uL LAB HEMATOLOGY METHOD 03/25/2025 3:34 AM EDT [facility] Blood Venous blood specimen / Unknown Venipuncture / Unknown 03/25/2025 3:29 AM EDT 03/25/2025 3:32 AM EDT Narrative [facility] - 03/25/2025 3:34 AM EDT Therapeutic decision making should be based on absolute values, rather than percentages. us Gretchen Hidalgo MD LAB BLOOD ORDERABLES Final Re sult [facility] [address] [place] [address] documented in this encounter Visit Diagnoses Diagnosis Upper GI bleeding- Primary Unspecified, hemorrhage of gastrointestinal tract Acute GI bleeding Unspecified, hemorrhage of gastrointestinal tract Severe anemia Generalized weakness Upper GI bleeding Unspecified, hemorrhage of gastrointestinal tract Persistent atrial fibrillation ([facility]) Atrial fibrillation Duodenal ulcer CAD, multiple vessel HLD (hyperlipidemia) Other and unspecified hyperlipidemia HTN (hypertension) Unspecified essential hypertension COPD (chronic obstructive pulmonary disease) ([facility]) Chronic airway obstruction, not elsewhere classified GERD (gastroesophageal reflux disease) Esophageal reflux Heart failure with mid-range ejection fraction (HFmEF) ([facility]) S/P CABG x 4 Postsurgical aortocoronary [...] Oral, Every 12 hours, First dose on [facility] 03/25/25 at 0800, Until Discontinued, Routine [...] Oral, 2 times daily, First dose on [facility] 03/25/25 at 0900, Until Discontinued, Routine Given 03/28/2025 8:08 PM EDT 5 mg Given 03/28/2025 9:11 AM EDT 5 mg Given 03/27/2025 8:09 PM EDT 5 mg aspirin chewable tablet 81 mg 81 mg, Oral, Daily, First dose on [facility] 03/27/25 at 0900, Until Discontinued, Routine Given 03/31/2025 8:12 AM EDT 81 mg Given 03/30/2025 8:34 AM EDT 81 mg Given 03/29/2025 8:23 AM EDT 81 mg atorvastatin (Lipitor) tablet 80 mg 80 mg, Oral, Nightly, First dose on [facility] 03/25/25 at 2100, Until Discontinued Given 03/30/2025 9:20 [...] 2 g, Intravenous, Once, 1 dose, On [facility] 03/27/25 at 1945, Routine New Bag 03/27/2025 8:08 PM EDT 2 g 25 mL/hr metoprolol tartrate (Lopressor) tablet 75 mg 75 mg, Oral, 2 times daily, First dose on [facility] 03/27/25 at 2100, Until Discontinued, Routine Given 03/31/2025 8:12 AM EDT 75 mg Given 03/30/2025 9:20 PM EDT 75 mg Given 03/30/2025 8:34 AM EDT 75 mg mometasone-formoterol (Dulera 100) 100-5 MCG/ACT inhaler 2 puff 2 puff, Inhalation, 2 times daily, First dose on [facility] 03/25/25 at 0900, Until Discontinued, Routine Given 03/31/2025 8:11 AM EDT 2 puffs Given 03/30/2025 9:19 PM EDT 2 puffs Given 03/30/2025 8:33 AM EDT 2 puffs morphine PF 4 mg 4 mg, Intravenous, Once as needed, 1 dose, Starting on [facility] 03/25/25 at 0433, Until [facility] 03/25/25 [...] Oral, 2 times daily, First dose on [facility] 03/27/25 at 2100, Until Discontinued, Routine Given 03/31/2025 8:12 AM EDT 40 mg Given 03/30/2025 9:20 PM EDT 40 mg Given 03/30/2025 8:34 AM EDT 40 mg pantoprazole (Protonix) injection 40 mg 40 mg, Intravenous, 2 times daily, First dose on [facility] 03/25/25 at 0900, Until Discontinued, Routine Given 03/27/2025 8:36 AM EDT 40 mg Given 03/26/2025 8:00 PM EDT 40 mg Given 03/26/2025 9:28 AM EDT 40 mg polyethylene glycol (Miralax) packet 17 g 17 g, Oral, Daily, First dose on [facility] 03/25/25 at 0900, Until Discontinued, Routine Given 03/29/2025 8:44 AM EDT 17 g Given 03/28/2025 9:11 AM EDT 17 g Given 03/27/2025 8:37 AM EDT 17 g senna (Senokot) tablet 17.2 mg 17.2 mg (2 tablet), Oral, Nightly, First dose on [facility] 03/25/25 at 2100, Until Discontinued, Routine Given 03/30/2025 9:20 PM EDT 17.2 mg Given 03/29/2025 8:15 PM EDT 17.2 mg Given 03/28/2025 8:08 PM EDT 17.2 mg sodium chloride 0.9 % flush 10 mL 10 mL, Intravenous, Every 12 hours, First dose on [facility] 03/25/25 at 0520, Until Discontinued, Routine Given [...] Intravenous, Every 12 hours, First dose on [facility] 03/25/25 at 0540, Until Discontinued, Routine [...] 03/30/2025 12:49 PM EDT 1 g Tiotropium [place] Monohydrate (Spiriva Respimat) 2.5 MCG/ACT inhaler 2 [...] Joe Randall RN)1745 (Given - Provider: Marci Randall RN) 0527 (Given - Provider: Mirella Glez RN)1743 (Given - Provider: Natalie Bryan RN) 0411 (Given - Provider: Mirella Glez, ANGELICA) aspirin chewable tablet 81 mg 81 mg, Oral, Daily, First dose on Sat03/27/25 at 0900, Until Discontinued, Routine 0823 (Given - Provider: Marci Randall RN) 0834 (Given - Provider: Natalie Bryan RN) 08 (Given - Provider: Sally Higgins, ANGELICA) atorvastatin (Lipitor) tablet 80 mg 80 mg, Oral, Nightly, First dose on [facility] 03/25/25 at 2100, Until Discontinued 2014 (Given - Provider: Mirella Glez RN) 2119 (Given - Provider: Mirella Glez RN) bisacodyl (Dulcolax) suppository 10 mg 10 mg, Rectal, Daily, First dose on Sat03/28/25 at 1615, Until Discontinued, Routine 0843 (Not [...] [facility] 03/25/25 at 0900, Last dose on 03/31/25 at 2100, Routine 0822 (Given - Provider: [...] ANGELICA)2014 (Given - Provider: Mirella Glez RN) 0833 (Given - Provider: Natalie Bryan, ANGELICA)2118 (Given - Provider: Mirella Glez, ANGELICA) 08 [...] Natalie Bryan RN - Reason: Patient/family refused) 0811 (Not Given - Provider: Sally Higgins RN - Reason: Patient/family refused) senna (Senokot) tablet 17.2 mg 17.2 mg (2 tablet), Oral, Nightly, First dose on [facility] 03/25/25 at 2100, Until Discontinued, Routine 2014 (Given - Provider: Mirella Glez RN) 2119 (Given - Provider: Mirella Glez, ANGELICA) sodium chloride 0.9 % flush 10 [...] Intravenous, Every 12 hours, First dose on Sat03/25/25 at 0540, Until Discontinued, Routine 0520 (Given [...] Discontinued, Routine 0822 (Given - Provider: Marci Rnadall RN)1745 (Given - Provider: Marci Randall RN)1803 [...] canceled at discontinue of medication order) Tiotropium [place] Monohydrate (Spiriva Respimat) 2.5 MCG/ACT inhaler 2 [...] Starting on [facility] 03/25/25 at 0515, Until 03/31/25 at 1500, Routine, mild pain 2020 (Given - Provider: Mirella Glez, ANGELICA) 0850 [...] documented as of this encounter Care Teams Referral Clerk Relationship Specialty Start Date End Date Kiera Castro APRN [address] [place] [address] PCP - General 02/17/25 documented as of this encounter
--- OUTSIDE RECORDS SUMMARY | 2025-03-25 17:04 | XMS_ITS | Encounter Summary ---
Author Organization Healthcare Address [address] [id number] Care Team Providers Care Manager Of Financial Planning Name Role Phone Kiera Castro APRN Primary Care Provider [phone] Reason for Visit * Auth/Cert (Routine) Specialty Diagnoses / Procedures Referred By Contac t Referred To Contact Diagnoses Upper GI bleeding Acute GI bleeding Generalized weakness Severe anemia Low Hemoglobin, status post CABG Iliana Lopez MD [address] [place] [address] Phone: tel: fax: [facility] [address] [place] [address] Phone: tel: Referral ID Status Reason Start Date Expiration Date Visits Re quested Visits Authorized [id number] 1 1 Encounter Details Date Type Department Care Team (Late st Contact Info) Description 03/25/2025 5:04 PM EDT Anesthesia Event [facility] [address] [place] [address] Cristofer Delacruz MD [address] [place] [address] Pamela Ventura CRNA [address] [place] [address] Anesthesia Record Procedure Summary Procedure [...] were you homeless or living in a nursing home (including now)? No 03/27/2025 Utilities Answer Date Recorded In the past 12 months has [facility] electric, gas, oil, or water company threatened [...] 4 Plan was reviewed with: attending and MACHINE TENDER Anesthesia technique(s) discussed with the patient/family: general [...] Description 08/03/2025 12:40 PM EDT Office Visit [facility] [address] [place] [address] Dimitrios Wright MD [address] [place] [address] documented as of this encounter Goals Goal [...] documented as of this encounter Care Teams Manager Of Financial Planning Relationship Specialty Start Date End Date Kiera Castro APRN [address] [place] [address] PCP - General 02/17/25 documented as of this encounter
--- OUTSIDE RECORDS SUMMARY | 2025-05-03 10:58 | XMS_ITS ---
Author Organization Healthcare Address [address] [place] [address] Care Team Providers Care Generator Technician Name Role Phone Kiera Castro APRN Primary Care Provider [phone] Transitional Care Management Status:Closed (Closed) Start date:04/01/2025 Enrollment date:04/06/2025 Enrollment reason:Identified using hospital discharge data End date:05/01/2025 Close reason:Patient graduated Overview This episode type is for outpatient care managers enrolling patients in the [facility] Transitional Care Management program. Continued Care and Services Coordination
--- OUTSIDE RECORDS SUMMARY | 2025-05-03 11:01 | XMS_ITS | Clinical Summary ---
Author Organization Healthcare Address [address] [place] [address] Care Team Providers Care Pleat Taper Name Role Phone Kiera Castro APRN Primary Care Provider [phone] Allergies No known active allergies Medications famotidine (Pepcid) 20 MG tablet Take 1 tablet by mouth 2 times a day. Active acetaminophen (Tylenol) 325 MG tablet Take 2 tablets by mouth every 6 hours as needed for pain, headaches or fever. Under [place] law, monthly prescriptions (30 days) can be refilled at 25 days and three-month prescriptions (90 days) at 80 days. Please contact the insurance company with questions if refills are denied. 100 tablet 03/02/20 25 Active apixaban (Eliquis) 5 MG tablet Take 1 tablet by mouth 2 (two) times a day. 60 tablet 3 03/02/20 25 Active aspirin 81 MG chewable tablet Chew 1 tablet daily. 30 tablet 3 03/03/20 25 025 Active atorvastatin (Lipitor) 80 MG tablet Take 1 tablet by mouth nightly. 30 tablet 3 03/02/20 25 025 Active mometasone-formo terol (Dulera 100) 100-5 MCG/ACT inhaler Inhale 2 puffs 2 (two) times a day. Rinse mouth with water after use to reduce aftertaste and incidence of candidiasis. Do not swallow. 13 g 3 03/02/20 25 Active naloxone (Narcan) 4 mg/0.1 mL nasal spray 1. Give 1 spray in nostril for no/slow breathing or cannot wake after opioid use 2. Call 911 3. Repeat in other nostril if symptoms continue 1 each 03/02/20 Active Tiotropium Sawyer Monohydrate (Spiriva Respimat) 2.5 MCG/ACT inhaler Inhale 2 puffs daily. 4 g 3 03/03/20 25 Active docusate sodium (Colace) 100 MG capsule Take 1 capsule by mouth 2 times a day. Active metoprolol tartrate (Lopressor) 50 MG tablet Take 1.5 tablets by mouth 2 times a day. 90 tablet 2 03/17/20 25 026 Active amiodarone (Pacerone) 200 MG tablet Take 1 tablet by mouth daily. 03/31/20 25 Active pantoprazole (Protonix) 40 MG EC tablet Take 1 tablet by mouth 2 times a day. Do not crush, chew, or split. 60 tablet 1 03/31/20 25 025 Active sucralfate (Carafate) 1 GM/10ML suspension Take 10 mL by mouth 4 times a day before meals and nightly. 1200 mL 03/31/20 25 Active senna (Senokot) 8.6 MG tablet Take 1 tablet by mouth nightly. 30 tablet 03/17/20 25 025 Sodium Hypochlorite (Dakin's, HALF-Strength,) external solution Apply topically 2 times a day. 473 mL 03/31/20 25 025 oxyCODONE (Roxicodone) 5 MG immediate release tablet Take 1 tablet by mouth every 6 hours as needed for severe pain for up to 4 days. 15 tablet 03/31/20 25 025 Active Problems Problem Noted Date Diagnosed Date Iron deficiency anemia 03/17/2025 Hyponatremia 03/13/2025 Hypocalcemia 03/13/2025 Gluteal abscess 03/13/[address] of the head 02/24/2025 Overview (02/24/2025): Neck CTA: 1. Severe stenosis at the origins of the vertebral arteries bilaterally due to atherosclerosis. 2. Atherosclerosis at the carotid bulbs bilaterally without hemodynamically significant stenosis. Head CTA: 1. 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 2. 2 mm aneurysm or infundibulum at the M1 segment of the left MCA. Spoke with neurosurg/ stroke neurology- continue secondary prophylaxis, Will need outpt follow up in clinic for risk stratification/ call if acute event Persistent atrial fibrillation 02/23/2025 Overview (02/24/2025): New onset Afib with RVR on 02/23 - metop 2.5 mg IV once - amio bolus x3 + gtt started with rate control Transitioned to PO on 02/24 S/P AVR 02/22/2025 Overview (02/22/2025): S/p bAVR (29 mm Inspiris) w/ Dr. Sahu on 02/21 - SBP < 120 Post-op pain 02/22/2025 Overview (02/23/2025): - MMPC - oxy and dilaudid d/c-d in setting of lethargy Obstructive sleep apnea 02/21/2025 Overview (02/21/2025): - CPAP/BIPAP after extubation if needed for desaturations S/P CABG x 4 02/21/2025 Overview (02/24/2025): 02/21: S/p 4v CABG and bAVR with Dr. Sahu -Bypass vessels include RODRIGUEZ to LAD, reverse saphenous vein graft to distal RCA, and reverse saphenous vein graft sequential to ramus intermedius artery and 2 obtuse marginal artery. Aortic valve replacement using a 29 mm Inspiris aortic bioprosthesis. -Echo: Post TAYLOR 02/21: LVEF 50%, no AI. -Monitor CT output Acute blood loss anemia 02/18/2025 Overview (02/24/2025): - likely in setting of post-op - CTM with daily labs Transfusion 02/24 Heart failure with mid-range ejection fraction ( HFmEF) 02/17/2025 Overview (02/22/2025): - Echo 02-15-25 [facility]: EF 45% - post-op EF 50% CAD, multiple vessel 02/16/2025 Overview (02/24/2025): S/p 4vCABG and bAVR on 02/21 - ASA, statin, BB as appropriate HLD (hyperlipidemia) 02/16/2025 Overview (02/22/2025): - Atorvastatin 80 mg nightly HTN (hypertension) 02/16/2025 Overview (02/24/2025): - Resume home medications as appropriate - required nitroglycerin gtt shortly post-op for SBP < 120 - Metop 12.5 TID COPD (chronic obstructive pulmonary disease) 06/2025 Overview (02/24/2025): - on atrovent/ pep therapy Tobacco abuse disorder 02/16/2025 Overview (02/22/2025): - residence counselor on smoking cessation Incomplete right bundle branch block 02/16/2025 Overview (02/22/2025): - noted on post-op ECG - CTM Cervical radiculopathy 02/16/2025 Overview (02/21/2025): Reports no active symptoms according to pre-op evaluation No issues with cervical spine mobility during intubation for procedure BPH (benign prostatic hyperplasia) 02/16/2025 Overview (02/22/2025): - was on flomax at home, but stopped taking s/t uncontrolled bladder Obesity (BMI 30-39.9) 02/16/2025 Overview (02/21/2025): Complicates all aspects of care Bmi 31.60 GERD (gastroesophageal reflux disease) Overview (02/22/2025): - Pepcid BID Situational depression 02/16/2025 Edentulous 02/16/2025 Resolved Problems Problem Noted Date Diagnosed Date Resolved Date Upper GI bleeding 03/25/2025 03/31/2025 Pleural effusion 03/13/2025 03/17/2025 Cardiac volume overload 03/13/2025 05/0 05/2025 Leukocytosis 03/13/2025 03/17/2025 Hx of non-ST elevation myoca rdial infarction (NSTEMI) 03/13/2025 03/17/2025 Atrial fibrillation 03/12/2025 03/17/20 25 Delirium 02/24/2025 03/02/2025 Overview (02/24/2025): Encephalopathy workup negative Hypokalemia 02/24/2025 03/02/2025 Overview (02/24/2025): Replace as indicated Altered mental status 02/23/20252024 Overview (02/24/2025): - new onset mental status change- improved - encephalopathy w/u ammonia, LFTs, TSH, T4, cortisol sent - CTA head and neck and CT head w/o pending - pt denies alcohol intake: one day of thiamine and folate ordered Thrombocytopenia 02/23/2025 03/02/2025 Overview (02/23/2025): - decreased platelets on am labs - holding DVT prophylaxis - HIT panel Acute hypoxic respiratory failure 02/23/2025 03/02/2025 Overview (02/24/2025): - paO2 in 40's requiring HFNC overnight -pep - encourage IS - wean for SAT > 92% On supplemental oxygen by nasal cannula 02/22/2025 03/02/2025 Overview (02/24/2025): Extubated 02/22 to NC Electrolyte abnormality 02/22/202502/10 Overview (02/22/2025): - monitor and replace prn Cardiac volume overload 02/22/202502/10 Overview (02/24/2025): - evaluate daily need for diuresis On mechanically assisted ventilation 02/21/2025 02/22/2025 Overview (02/21/2025): Intubated for procedure, arrived to ICU post-procedure intubated and sedated Wean as tolerated Fast track extubation Sinus bradycardia 02/18/2025 02/27/2025 Aortic stenosis 02/16/2025 03/02/2025 Overview (02/21/2025): Echo 02-15-25 [facility]: Moderate AI. Moderate (peak gradient velocity 3.2 m/s. Mean AV gradient 22 mmHg. Max gradient 40 mmHg. PETE 1.4 cm sq. 02/21: s/p 4vCABG and bioprosthetic AVR. Aortic valve intact with no significant AI on post TAYLOR. NSTEMI (non-ST elevated myoc ardial infarction) 02/16/2025 03/02/2025 Overview (02/21/2025): S/p 4vCABG on 02/21 Encounters Date Type Department Care Team Description 04/08/2025 Patient Outreach POPULATION [address], [address] [address] Lucero Stafford LPN Follow-up 04/06/2025 Patient Outreach POPULATION [address], [address] [address] Lucero Stafford LPN TCM Call 04/02/2025 Patient Outreach POPULATION [address], [address] [place] [phone] Lucero Stafford LPN TCM Call 04/01/2025 Patient Outreach POPULATION [address], [address] [address] Lucero Stafford LPN TCM Call 03/25/2025 5:04 PM EDT Anesthesia Event [facility] [address] [place] [address] Cristofer Delacruz MD Sparks, Starr NBUCK 03/25/2025 3:17 AM EDT - 03/31/2025 12:30 PM EDT Hospital Encounter [facility] [address] [place] [address] Naga Hidalgo MD Sagheer, Iqra, MD Khalid, MD Sandeep Paul Megan M, MD Acute GI bleeding (Primary Dx); Severe anemia; Generalized weakness; Upper GI bleeding; Persistent atrial fibrillation (CMS/HCC); Duodenal ulcer Discharge Disposition: Home-Health Care [facility] 03/25/2025 Travel 03/17/2025 Travel 03/16/2025 Travel 03/15/2025 Travel 03/14/2025 Travel 03/13/2025 Travel 03/12/2025 3:36 AM EDT - 03/17/2025 2:43 PM EDT Hospital Encounter [facility] [address] [place] [id number] Sloane Blake MD Reda, Hassan K, MD Gluteal abscess (Primary Dx); Chest pain, unspecified type; Elevated troponin; Persistent atrial fibrillation (CMS/HCC) Discharge Disposition: Home or Self Care 03/12/2025 Orders Only External Location [address] [place] [id number] Provider, External 03/12/2025 Travel 03/03/2025 Telephone [facility] [address] [place] [address] Gia Mcneal 03/02/2025 Travel 03/01/2025 Travel 02/28/2025 Travel 02/27/2025 Travel 02/26/2025 Travel 02/25/2025 Travel 02/24/2025 Travel 02/23/2025 Travel 02/22/2025 Lab Requisition [facility] [address] [place] [id number] Sohail Alex MD Encounter for general adult medical examination without abnormal findings 02/22/2025 Travel 02/21/2025 8:47 AM EDT Anesthesia Event [facility] OPER[facility] ROOM [address] [place] [address] Jolene Montes De Oca MD 02/21/2025 8:00 AM EDT - 02/21/2025 5:05 PM EDT Surgery [facility] [address] [place] [address] Lata Sahu MD CABG, 2 OR MORE VESSELS 02/21/2025 Travel 02/20/2025 11:26 AM EDT Anesthesia Event [facility] [address] [place] [phone] Robbie Rivera MD Lopez, Joshua A, MD 02/19/2025 Travel 02/18/2025 Travel 02/17/2025 Travel 02/16/2025 7:16 PM EDT - 03/02/2025 2:41 PM EDT Hospital Encounter [facility] [address] [place] [address] Gerardo Hinds MD Bacon, James D, MD Reda, Hassan K, MD CAD, multiple vessel (Primary Dx); Sinus bradycardia; Concentric left ventricular hypertrophy; Edentulous; NSTEMI (non-ST elevated myocardial infarction) ([facility]/HCC); Cervical radiculopathy; Tobacco abuse disorder; Hyperlipidemia, unspecified hyperlipidemia type; Hypocalcemia; Aortic valve insufficiency, etiology of cardiac valve disease unspecified; Situational depression; Obesity (BMI 30-39.9); Aortic valve stenosis, etiology of cardiac valve disease unspecified; Chronic obstructive pulmonary disease, unspecified COPD type (CMS/HCC); Anemia, unspecified type; Heart failure with mid-range ejection fraction (HFmEF) (CMS/HCC); Gastroesophageal reflux disease, unspecified whether esophagitis present; Benign prostatic hyperplasia, unspecified whether lower urinary tract symptoms present; Incomplete right bundle branch block; Primary hypertension; Cardiac volume overload; Electrolyte abnormality; Post-op pain; On supplemental oxygen by nasal cannula; S/P AVR; S/P CABG x 4; Obstructive sleep apnea; Gastroesophageal reflux disease without esophagitis; Hypertension, unspecified type; Pulmonary emphysema, unspecified emphysema type (CMS/HCC); Acute hypoxic respiratory failure; Thrombocytopenia (CMS/HCC); Altered mental status, unspecified altered mental status type; Persistent atrial fibrillation (CMS/HCC); Abnormal CT of the head Discharge Disposition: Home or Self Care 02/16/2025 Travel 02/15/2025 Orders Only External Location [address] [place] [phone] Provider, External 02/15/2025 Orders Only External Location [address] [place] [address] Provider, External 02/15/2025 Orders Only External Location [address] [place] [address] Provider, External 02/15/2025 Orders Only External Location [address] [place] [address] Ysabel Christopher, AREA DEVELOPMENT CONSULTANT 02/13/2025 Orders Only External Location [address] [place] [address] Alexia Nelson, AREA DEVELOPMENT CONSULTANT 02/13/2025 Orders Only External Location [address] [place] [address] Provider, External from Last 3 Months Social History Tobacco Use Types Packs/Day Years Used Date Smoking Tobacco: Former Cigarettes Smokeless Tobacco: Never Tobacco Cessation:Counseling Given: Not Answered Alcohol Use Standard Drinks/Week Comments Not Currently [...] any time in the past 12 m [facility], were you homeless or living in a alf (including now)? No 04/06/2025 Utilities Answer Date Recorded In the past 12 months has th e electric, gas, oil, or water company threatened to shut off services in your home? No 03/27/2025 Sex and Gender Information Value Date Recorded Sex Assigned at Not on file Legal Sex Male 8:34 PM EDT Gender Identity Not on file Sexual Orientation Not on file Last Filed Vital Signs Vital Sign Reading [...] Mass Index 28.55 03/31/2025 8:00 AM EDT Plan of Treatment Upcoming Encounters Date Type Department Care Team (Late st Contact Info) Description 08/03/2025 12:40 PM EDT Office Visit [facility] [address] [facility] [place] [address] Dimitrios Wright MD [address] [place] [id number] Health Maintenance Due Date Last Done Comments [facility]-Depression Screening 1958 [facility]-Medicare Annual Wellness (AWV) 1958 [facility]-/Child/Adol SDOH Screenings 1958 [facility]-DTaP,Tdap,and Td Vaccines (1 - Tdap) 1977 [facility]-Pneumococcal Vaccine: 50+ Years (1 of 2 - PCV) 1977 CT Colonography 2003 Colonoscopy 2003 FIT-DNA 2003 FIT 2003 FOBT 2003 Sigmoidoscopy 2003 [facility]-Colorectal Cancer Screening 2003 [facility]-Zoster Vaccines (1 of 2) 2008 [facility]-Abdominal Aortic Aneurysm (AAA) Screening 2023 [id number] Vaccine ( season) 2024 04/26/2021, 03/29/2021 [facility]-Influenza Vaccine (Season Ended) 2025 [facility]- SDOH Screenings 09/27/2025 [facility]-Adult SDOH Screenings 09/27/2025 03/27/2025 [facility]-RSV Vaccine: 60+ Years or Completed 12/09/2023 [facility]-Hepatitis C Screening Completed 02/21/2025, [facility]-Obesity Intervention Completed 025, 03/25/2025, 03/12/2025, Additional history exists HPV Vaccines Aged Out No longer eligi ble based on patient's age to complete this topic [facility]-HIB Vaccines Aged Out No longer e ligible based on patient's age to complete this topic [facility]-Hepatitis A Vaccines Aged Out No longer eligible based on patient's age to complete this topic [facility]-IPV Vaccines Aged Out No longer e ligible based on patient's age to complete this topic [facility]-Rotavirus Vaccines Aged Out No lo nger eligible based on patient's age to complete this topic Goals Goal Patient Goal Type Associated Problems Recent Progress Patient-Stated? Author Autogenerat ed Goal Care Plan Autogenerated Problem No Mauro Moeller, RN Medical Devices Implanted Type Area Plan Consultant Device Identifier Shelf Expiration Date Model / Serial / Lot Valve Aortic Inspiris Resilia 29mm - [id number] - [id number] Implanted:Qty: 1 on 02/21/2025 by Lata Sahu MD at [facility]-[id number] 09/22/2029 [id number] / [id number] / [id number] Description:We do not rinse Inspirus Valves. [employer] [place] 4.8mm X 6mm - [id number] Implanted:02/21 by Lata Sahu MD at [facility] (Quantity not on file) [employer]-[id number] / / [employer]get [employer] [place] 4.8mm X 6mm - [id number] Implanted:02/21 by Lata Sahu MD at [facility] (Quantity not on file) [employer]-[id number] / / Procedures Procedure Name Priority Date/Time Associated Diagnosis Comments MAGNESIUM, PLASMA Routine 03/31/2025 4:17 AM EDT COMPREHENSIVE METABOLIC PANEL, PLASMA Routine 03/31/2025 4:17 AM EDT CBC WITH AUTO DIFFERENTIAL Routine 03/31/2025 4:17 AM EDT OXYGEN THERAPY STAT 03/30/2025 8:00 AM EDT CBC WITH AUTO DIFFERENTIAL Routine 03/30/2025 4:52 AM EDT COMPREHENSIVE METABOLIC PANEL, PLASMA Routine 03/30/2025 4:52 AM EDT MAGNESIUM, PLASMA Routine 03/30/2025 4:52 AM EDT PHOSPHORUS, PLASMA Routine 03/30/2025 4:52 AM EDT OXYGEN THERAPY STAT 03/29/2025 8:00 PM EDT TRANSFUSE RED BLOOD CELLS Routine 03/29/2025 10:21 AM EDT PREPARE RBC Routine 03/29/2025 8:37 AM EDT OXYGEN THERAPY STAT 03/29/2025 8:00 AM EDT TYPE AND SCREEN Routine 03/29/2025 6:05 AM EDT PREPARE RBC Routine 03/29/2025 5:51 AM EDT CBC WITH AUTO DIFFERENTIAL Routine 03/29/2025 3:21 AM EDT COMPREHENSIVE METABOLIC PANEL, PLASMA Routine 03/29/2025 3:21 AM EDT MAGNESIUM, PLASMA Routine 03/29/2025 3:21 AM EDT PHOSPHORUS, PLASMA Routine 03/29/2025 3:21 AM EDT OXYGEN THERAPY STAT 03/28/2025 8:00 PM EDT OCCULT BLOOD, FECAL BY IMMUNOASSAY (SO) Routine 03/28/2025 4:18 PM EDT HELICOBACTER PYLORI ANTIGEN Routine 03/28/2025 4:18 PM EDT CBC W/O DIFFERENTIAL Routine 03/28/2025 12:15 PM EDT OXYGEN THERAPY STAT 03/28/2025 8:00 AM EDT CBC WITH AUTO DIFFERENTIAL Routine 03/28/2025 5:18 AM EDT COMPREHENSIVE METABOLIC PANEL, PLASMA Routine 03/28/2025 5:18 AM EDT MAGNESIUM, PLASMA Routine 03/28/2025 5:18 AM EDT PHOSPHORUS, PLASMA Routine 03/28/2025 5:18 AM EDT HEMOGLOBIN AND HEMATOCRIT, BLOOD Timed 03/28/2025 12:32 AM EDT OXYGEN THERAPY STAT 03/27/2025 8:00 PM EDT HEMOGLOBIN AND HEMATOCRIT, BLOOD Timed 03/27/2025 6:11 PM EDT HEMOGLOBIN AND HEMATOCRIT, BLOOD Timed 03/27/2025 12:12 PM EDT OXYGEN THERAPY STAT 03/27/2025 8:00 AM EDT CBC WITH AUTO DIFFERENTIAL Routine 03/27/2025 5:55 AM EDT COMPREHENSIVE METABOLIC PANEL, PLASMA Routine 03/27/2025 5:55 AM EDT MAGNESIUM, PLASMA Routine 03/27/2025 5:55 AM EDT PHOSPHORUS, PLASMA Routine 03/27/2025 5:55 AM EDT HEMOGLOBIN AND HEMATOCRIT, BLOOD Timed 03/27/2025 5:55 AM EDT HEMOGLOBIN AND HEMATOCRIT, BLOOD Timed 03/26/2025 11:39 PM EDT OXYGEN THERAPY STAT 03/26/2025 8:00 PM EDT HEMOGLOBIN AND HEMATOCRIT, BLOOD Timed 03/26/2025 5:52 PM EDT HEMOGLOBIN AND HEMATOCRIT, BLOOD Timed 03/26/2025 11:42 AM EDT OXYGEN THERAPY STAT 03/26/2025 8:00 AM EDT HEMOGLOBIN AND HEMATOCRIT, BLOOD Timed 03/26/2025 5:38 AM EDT HEMOGLOBIN AND HEMATOCRIT, BLOOD Timed 03/26/2025 12:17 AM EDT BASIC METABOLIC PANEL, PLASMA Routine 03/26/2025 12:17 AM EDT CBC W/O DIFFERENTIAL Routine 03/26/2025 12:17 AM EDT OXYGEN THERAPY STAT 03/25/2025 8:00 PM EDT HEMOGLOBIN AND HEMATOCRIT, BLOOD Timed 03/25/2025 6:17 PM EDT EGD Routine 03/25/2025 5:22 PM EDT Acute GI bleeding TRANSFUSE RED BLOOD CELLS Routine 03/25/2025 1:07 PM EDT PREPARE RBC Routine 03/25/2025 12:25 PM EDT HEMOGLOBIN AND HEMATOCRIT, BLOOD Timed 03/25/2025 11:46 AM EDT HEMOGLOBIN AND HEMATOCRIT, BLOOD Timed 03/25/2025 8:28 AM EDT TROPONIN T, HIGH SENSITIVITY, 2 HOUR, PLASMA Timed 03/25/2025 8:28 AM EDT OXYGEN THERAPY STAT 03/25/2025 8:00 AM EDT HAPTOGLOBIN, SERUM Routine 03/25/2025 6:23 AM EDT TROPONIN T, HIGH SENSITIVITY, 0 HOUR, PLASMA, REFLEX TO 2 HOUR STAT 03/25/2025 6:23 AM EDT LACTATE, VENOUS Routine 03/25/2025 6:23 AM EDT WOUND OSTOMY EVAL AND TREAT Routine 03/25/2025 5:18 AM EDT IRON & TOTAL IRON BINDING CAPACITY, PLASMA (INCLUDES TRANSFERRIN) Add-On 03/25/2025 3:36 AM EDT C-REACTIVE PROTEIN, PLASMA Add-On 03/25/2025 3:36 AM EDT HEPATIC FUNCTION PANEL STAT 03/25/2025 3:36 AM EDT ECG ADULT STAT 03/25/2025 3:31 AM EDT LACTATE DEHYDROGENASE, PLASMA Add-On 03/25/2025 3:29 AM EDT RETICULOCYTES, BLOOD Add-On 03/25/2025 3:29 AM EDT N-TERMINAL PROBNP, PLASMA Add-On 03/25/2025 3:29 AM EDT PROCALCITONIN, PLASMA Add-On 03/25/2025 3:29 AM EDT PROTHROMBIN TIME(PT) / INR STAT 03/25/2025 3:29 AM EDT TYPE AND SCREEN STAT 03/25/2025 3:29 AM EDT TROPONIN T, HIGH SENSITIVITY, 0 HOUR, PLASMA, REFLEX TO 2 HOUR STAT 03/25/2025 3:29 AM EDT BASIC METABOLIC PANEL, PLASMA STAT 03/25/2025 3:29 AM EDT CBC WITH AUTO DIFFERENTIAL STAT 03/25/2025 3:29 AM EDT OXYGEN THERAPY STAT 03/25/2025 3:28 AM EDT OXYGEN THERAPY STAT 03/25/2025 3:28 AM EDT OXYGEN THERAPY STAT 03/25/2025 3:28 AM EDT XR CHEST 1 VIEW Routine 03/17/2025 5:20 AM EDT N-TERMINAL PROBNP, PLASMA Routine 03/17/2025 4:34 AM EDT MAGNESIUM, PLASMA Routine 03/17/2025 4:34 AM EDT BASIC METABOLIC PANEL, PLASMA Routine 03/17/2025 4:34 AM EDT CBC W/O DIFFERENTIAL Routine 03/17/2025 4:34 AM EDT HC CARDIOVERSION ELECTIVE ARRHYTHMIA EXTERNAL Routine 03/16/2025 12:42 PM EDT Persistent atrial fibrillation (CMS/HCC) IN CARDIOVERSION, ELECTIVE;DINING ROOM CAPTAIN Routine 03/16/2025 12:42 PM EDT Persistent atrial fibrillation (CMS/HCC) CT ANGIO CARDIAC STRUCTURE MORPHOLOGY Routine 03/16/2025 8:48 AM EDT XR CHEST 1 VIEW Routine 03/16/2025 4:55 AM EDT N-TERMINAL PROBNP, PLASMA Pending Discharge 03/16/2025 4:31 AM EDT MAGNESIUM, PLASMA Routine 03/16/2025 4:31 AM EDT COMPREHENSIVE METABOLIC PANEL, PLASMA Routine 03/16/2025 4:31 AM EDT CBC W/O DIFFERENTIAL Routine 03/16/2025 4:31 AM EDT WOUND OSTOMY EVAL AND TREAT Routine 03/15/2025 10:55 AM EDT XR CHEST 1 VIEW Routine 03/15/2025 4:34 AM EDT C-REACTIVE PROTEIN, PLASMA Add-On 03/15/2025 3:59 AM EDT MAGNESIUM, PLASMA Pending Discharge 03/15/2025 3:59 AM EDT COMPREHENSIVE METABOLIC PANEL, PLASMA Pending Discharge 03/15/2025 3:59 AM EDT CBC W/O DIFFERENTIAL Pending Discharge 03/15/2025 3:59 AM EDT XR CHEST 1 VIEW Routine 03/14/2025 5:22 AM EDT MAGNESIUM, PLASMA Pending Discharge 03/14/2025 5:05 AM EDT COMPREHENSIVE METABOLIC PANEL, PLASMA Pending Discharge 03/14/2025 5:05 AM EDT CBC W/O DIFFERENTIAL Pending Discharge 03/14/2025 5:05 AM EDT WOUND OSTOMY EVAL AND TREAT Routine 03/14/2025 12:35 AM EDT PREPARE RBC Routine 03/13/2025 12:28 PM EDT MAGNESIUM, PLASMA Routine 03/13/2025 4:37 AM EDT COMPREHENSIVE METABOLIC PANEL, PLASMA Routine 03/13/2025 4:37 AM EDT CBC W/O DIFFERENTIAL Routine 03/13/2025 4:37 AM EDT XR CHEST [...] GRAM STAIN Routine 03/12/2025 6:52 AM EDT IN DRAIN SKIN ABSCESS COMPLIC Routine 03/12/2025 5:54 AM EDT Gluteal abscess XR CHEST 1 VIEW STAT 03/12/2025 4:11 AM EDT C-REACTIVE PROTEIN, PLASMA STAT Add-on 03/12/2025 3:59 AM EDT LIPASE, PLASMA STAT 03/12/2025 3:59 AM EDT TROPONIN T, HIGH SENSITIVITY, 0 HOUR, PLASMA, REFLEX TO 2 HOUR STAT 03/12/2025 3:59 AM EDT N-TERMINAL PROBNP, PLASMA STAT 03/12/2025 3:59 AM EDT ANTI XA LEVEL LOW MOLECULAR WEIGHT HEPARIN STAT 03/12/2025 3:59 AM EDT CBC WITH AUTO DIFFERENTIAL STAT 03/12/2025 3:59 AM EDT COMPREHENSIVE METABOLIC PANEL, PLASMA STAT 03/12/2025 3:59 AM EDT ECG ADULT STAT 03/12/2025 3:43 AM EDT POC ULTRASOUND 03/12/2025 POCT GLUCOSE METER UNSOLICITED RESULTS Routine 03/02/2025 11:30 AM EDT XR CHEST 1 VIEW Routine 03/02/2025 8:49 AM EDT POCT GLUCOSE METER UNSOLICITED RESULTS Routine 03/02/2025 7:31 AM EDT N-TERMINAL PROBNP, PLASMA Add-On 03/02/2025 12:20 AM EDT RENAL FUNCTION PANEL, PLASMA Routine 03/02/2025 12:20 AM EDT MAGNESIUM, PLASMA Routine 03/02/2025 12:20 AM EDT CBC W/O DIFFERENTIAL Routine 03/02/2025 12:20 AM EDT POCT GLUCOSE METER UNSOLICITED RESULTS Routine 03/01/2025 7:58 PM EDT OXYGEN THERAPY Routine 03/01/2025 6:00 PM EDT POCT GLUCOSE METER UNSOLICITED RESULTS Routine 03/01/2025 5:52 PM EDT POCT GLUCOSE METER UNSOLICITED RESULTS Routine 03/01/2025 1:00 PM EDT POCT GLUCOSE METER UNSOLICITED RESULTS Routine 03/01/2025 8:31 AM EDT OXYGEN THERAPY Routine 03/01/2025 8:00 AM EDT XR CHEST 2 VIEWS Routine 03/01/2025 4:58 AM EDT PEP THERAPY Routine 03/01/2025 3:43 AM EDT RENAL FUNCTION PANEL, PLASMA Routine 03/01/2025 3:20 AM EDT MAGNESIUM, PLASMA Routine 03/01/2025 3:20 AM EDT CBC W/O DIFFERENTIAL Routine 03/01/2025 3:20 AM EDT PEP THERAPY Routine 02/28/2025 9:43 PM EDT POCT GLUCOSE METER UNSOLICITED RESULTS Routine 02/28/2025 8:16 PM EDT OXYGEN THERAPY Routine 02/28/2025 6:00 PM EDT POCT GLUCOSE METER UNSOLICITED RESULTS Routine 02/28/2025 6:00 PM EDT PEP THERAPY Routine 02/28/2025 3:43 PM EDT POCT GLUCOSE METER UNSOLICITED RESULTS Routine 02/28/2025 12:24 PM EDT PEP THERAPY Routine 02/28/2025 9:43 AM EDT POCT GLUCOSE METER UNSOLICITED RESULTS Routine 02/28/2025 8:51 AM EDT OXYGEN THERAPY Routine 02/28/2025 8:00 AM EDT XR CHEST 1 VIEW Routine 02/28/2025 6:13 AM EDT PEP THERAPY Routine 02/28/2025 3:43 AM EDT CBC W/O DIFFERENTIAL Routine 02/28/2025 3:35 AM EDT RENAL FUNCTION PANEL, PLASMA Routine 02/28/2025 3:35 AM EDT MAGNESIUM, PLASMA Routine 02/28/2025 3:35 AM EDT PEP THERAPY Routine 02/27/2025 9:43 PM EDT OXYGEN THERAPY Routine 02/27/2025 6:00 PM EDT PEP THERAPY Routine 02/27/2025 3:43 PM EDT PEP THERAPY Routine 02/27/2025 9:43 AM EDT OXYGEN THERAPY Routine 02/27/2025 8:00 AM EDT PEP THERAPY Routine 02/27/2025 3:43 AM EDT XR CHEST 1 VIEW Routine 02/27/2025 2:57 AM EDT CBC W/O DIFFERENTIAL Routine 02/27/2025 2:50 AM EDT RENAL FUNCTION PANEL, PLASMA Routine 02/27/2025 2:50 AM EDT MAGNESIUM, PLASMA Routine 02/27/2025 2:50 AM EDT XR CHEST 1 VIEW Routine 02/27/2025 12:00 AM EDT PEP THERAPY Routine 02/26/2025 9:43 PM EDT OXYGEN THERAPY Routine 02/26/2025 6:00 PM EDT PEP THERAPY Routine 02/26/2025 3:43 PM EDT PEP THERAPY Routine 02/26/2025 9:43 AM EDT OXYGEN THERAPY Routine 02/26/2025 8:00 AM EDT MAGNESIUM, PLASMA Routine 02/26/2025 3:47 AM EDT CBC W/O DIFFERENTIAL Routine 02/26/2025 3:47 AM EDT BASIC METABOLIC PANEL, PLASMA Routine 02/26/2025 3:47 AM EDT PEP THERAPY Routine 02/26/2025 3:43 AM EDT XR CHEST 1 VIEW Routine 02/26/2025 2:59 AM EDT PEP THERAPY Routine 02/25/2025 9:43 PM EDT OXYGEN THERAPY Routine 02/25/2025 6:00 PM EDT PEP THERAPY Routine 02/25/2025 3:43 PM EDT IN CRITICAL CARE, E/M 30-74 MINUTES Routine 02/25/2025 12:48 PM EDT Aortic valve stenosis, etiology of cardiac valve disease unspecified CAD, multiple vessel Cardiac volume overload Post-op pain On supplemental oxygen by nasal cannula S/P AVR S/P CABG x 4 XR ABDOMEN 1 VIEW STAT 02/25/2025 10:34 AM EDT PEP THERAPY Routine 02/25/2025 9:43 AM EDT OXYGEN THERAPY Routine 02/25/2025 8:00 AM EDT PEP THERAPY Routine 02/25/2025 3:43 AM EDT BLOOD GAS PANEL WITH OXIMETRY, MIXED VENOUS Routine 02/25/2025 3:39 AM EDT MAGNESIUM, PLASMA Routine 02/25/2025 3:33 AM EDT CBC W/O DIFFERENTIAL Routine 02/25/2025 3:33 AM EDT BLOOD GAS PANEL, ARTERIAL Routine 02/25/2025 3:33 AM EDT BASIC METABOLIC PANEL, PLASMA Routine 02/25/2025 3:33 AM EDT XR CHEST 1 VIEW Routine 02/25/2025 2:22 AM EDT PEP THERAPY Routine 02/24/2025 9:43 PM EDT RENAL FUNCTION PANEL, PLASMA Routine 02/24/2025 9:12 PM EDT HEMOGLOBIN AND HEMATOCRIT, BLOOD Routine 02/24/2025 9:12 PM EDT OXYGEN THERAPY Routine 02/24/2025 6:00 PM EDT TRANSFUSE RED BLOOD CELLS Routine 02/24/2025 4:47 PM EDT PEP THERAPY Routine 02/24/2025 3:42 PM EDT PEP THERAPY Routine 02/24/2025 3:42 PM EDT PEP THERAPY Routine 02/24/2025 3:42 PM EDT PEP THERAPY Routine 02/24/2025 3:42 PM EDT PEP THERAPY Routine 02/24/2025 3:42 PM EDT IN CRITICAL CARE, E/M 30-74 MINUTES Routine 02/24/2025 3:29 PM EDT Chronic obstructive pulmonary disease, unspecified COPD type (CMS/HCC) S/P AVR S/P CABG x 4 Thrombocytopenia (CMS/HCC) Altered mental status, unspecified altered mental status type Persistent atrial fibrillation (CMS/HCC) Abnormal CT of the head PROCALCITONIN, PLASMA Routine 02/24/2025 3:05 PM EDT TYPE AND SCREEN Routine 02/24/2025 3:05 PM EDT PREPARE RBC Routine 02/24/2025 2:49 PM EDT POTASSIUM, PLASMA Routine 02/24/2025 1:15 PM EDT BLOOD GAS PANEL WITH OXIMETRY, MIXED VENOUS Routine 02/24/2025 1:14 PM EDT BLOOD GAS PANEL, MIXED VENOUS Routine 02/24/2025 1:14 PM EDT POCT GLUCOSE METER UNSOLICITED RESULTS Routine 02/24/2025 8:25 AM EDT OXYGEN THERAPY Routine 02/24/2025 8:00 AM EDT XR CHEST 1 VIEW Routine 02/24/2025 3:12 AM EDT BLOOD GAS PANEL WITH OXIMETRY, MIXED VENOUS Routine 02/24/2025 12:45 AM EDT BLOOD GAS PANEL, ARTERIAL Routine 02/24/2025 12:36 AM EDT CBC W/O DIFFERENTIAL Routine 02/24/2025 12:35 AM EDT BASIC METABOLIC PANEL, PLASMA Routine 02/24/2025 12:35 AM EDT MAGNESIUM, PLASMA Routine 02/24/2025 12:35 AM EDT POCT GLUCOSE METER UNSOLICITED RESULTS Routine 02/23/2025 10:16 PM EDT OXYGEN THERAPY Routine 02/23/2025 6:00 PM EDT POCT GLUCOSE METER UNSOLICITED RESULTS Routine 02/23/2025 5:16 PM EDT BLOOD GAS PANEL, ARTERIAL Routine 02/23/2025 5:[address] CHEST W IV CONTRAST STAT 02/23/2025 2:[address] ABDOMEN PELVIS W IV CONTRAST STAT 02/23/2025 2:[address] ANGIO HEAD STAT 02/23/2025 2:[address] ANGIO NECK STAT 02/23/2025 2:44 PM EDT BLOOD GAS PANEL, ARTERIAL Routine 02/23/2025 2:12 PM EDT MAGNESIUM, PLASMA Routine 02/23/2025 2:11 PM EDT RENAL FUNCTION PANEL, PLASMA Routine 02/23/2025 2:11 PM EDT CBC W/O DIFFERENTIAL Routine 02/23/2025 2:11 PM EDT IN CRITICAL CARE, E/M 30-74 MINUTES Routine 02/23/2025 1:58 PM EDT Hyperlipidemia, unspecified hyperlipidemia type Obesity (BMI 30-39.9) Chronic obstructive pulmonary disease, unspecified COPD type (CMS/HCC) Anemia, unspecified type Primary hypertension Cardiac volume overload Electrolyte abnormality Post-op pain On supplemental oxygen by nasal cannula S/P AVR S/P CABG x 4 Obstructive sleep apnea Gastroesophageal reflux disease without esophagitis Hypertension, unspecified type Acute hypoxic respiratory failure Thrombocytopenia (CMS/HCC) Altered mental status, unspecified altered mental status type Persistent atrial fibrillation (CMS/HCC) POCT GLUCOSE METER UNSOLICITED RESULTS Routine 02/23/2025 1:06 PM EDT BLOOD GAS PANEL WITH OXIMETRY, MIXED VENOUS Routine 02/23/2025 10:43 AM EDT HEPARIN DEPENDENT AB W REFLEX TO PEA (SO) Routine 02/23/2025 10:40 AM EDT FOLATE, SERUM Routine 02/23/2025 10:40 AM EDT FREE T4, PLASMA Routine 02/23/2025 10:40 AM EDT TSH Routine 02/23/2025 10:40 AM EDT CORTISOL Routine 02/23/2025 10:40 AM EDT AMMONIA, PLASMA STAT 02/23/2025 10:40 AM EDT PEP THERAPY Routine 02/23/2025 10:00 AM EDT BLOOD GAS PANEL, ARTERIAL STAT 02/23/2025 9:04 AM EDT POCT GLUCOSE METER UNSOLICITED RESULTS Routine 02/23/2025 8:45 AM EDT OXYGEN THERAPY Routine 02/23/2025 8:00 AM EDT POCT GLUCOSE METER UNSOLICITED RESULTS Routine 02/23/2025 6:12 AM EDT BLOOD GAS PANEL, ARTERIAL STAT 02/23/2025 6:09 AM EDT BLOOD GAS PANEL WITH OXIMETRY, MIXED VENOUS STAT 02/23/2025 6:08 AM EDT ECG ADULT STAT 02/23/2025 6:00 AM EDT PEP THERAPY Routine 02/23/2025 6:00 AM EDT BLOOD GAS PANEL, ARTERIAL Routine 02/23/2025 3:13 AM EDT XR CHEST 1 VIEW Routine 02/23/2025 2:36 AM EDT OXYGEN THERAPY Routine 02/23/2025 2:16 AM EDT OXYGEN THERAPY Routine 02/23/2025 2:16 AM EDT PHOSPHORUS, PLASMA Routine 02/23/2025 1:46 AM EDT MAGNESIUM, PLASMA Routine 02/23/2025 1:46 AM EDT CBC W/O DIFFERENTIAL Routine 02/23/2025 1:46 AM EDT BLOOD GAS PANEL, ARTERIAL Routine 02/23/2025 1:46 AM EDT BASIC METABOLIC PANEL, PLASMA Routine 02/23/2025 1:46 AM EDT POCT GLUCOSE METER UNSOLICITED RESULTS Routine 02/22/2025 10:06 PM EDT PEP THERAPY Routine 02/22/2025 10:00 PM EDT OXYGEN THERAPY Routine 02/22/2025 6:00 PM EDT PEP THERAPY Routine 02/22/2025 6:00 PM EDT POCT GLUCOSE METER UNSOLICITED RESULTS Routine 02/22/2025 4:32 PM EDT POCT ARTERIAL BLOOD GAS GEM UNSOLICITED RESULTS Routine 02/22/2025 3:21 PM EDT EXTRA TUBE LIGHT GREEN TOP Routine 02/22/2025 2:30 PM EDT EXTRA TUBES Routine 02/22/2025 2:30 PM EDT HEPATIC FUNCTION PANEL Routine 02/22/2025 2:21 PM EDT RENAL FUNCTION PANEL, PLASMA Routine 02/22/2025 2:21 PM EDT MAGNESIUM, PLASMA Routine 02/22/2025 2:21 PM EDT IONIZED CALCIUM, WHOLE BLOOD Routine 02/22/2025 2:21 PM EDT PEP THERAPY Routine 02/22/2025 2:00 PM EDT BLOOD GAS PANEL, ARTERIAL Routine 02/22/2025 12:07 PM EDT BLOOD GAS PANEL WITH OXIMETRY, MIXED VENOUS Routine 02/22/2025 12:07 PM EDT MULTI DRUG RESISTANCE TEST Routine 02/22/2025 11:00 AM EDT Encounter for general adult medical examination without abnormal findings PEP THERAPY Routine 02/22/2025 10:00 AM EDT POTASSIUM, PLASMA Timed 02/22/2025 8:25 AM EDT HEMATOCRIT, BLOOD Timed 02/22/2025 8:25 AM EDT HEMOGLOBIN Timed 02/22/2025 8:25 AM EDT BLOOD GAS PANEL, ARTERIAL Timed 02/22/2025 8:25 AM EDT IN CRITICAL CARE, ADDL 30 MIN Routine 02/22/2025 8:05 AM EDT Hyperlipidemia, unspecified hyperlipidemia type Obesity (BMI 30-39.9) Chronic obstructive pulmonary disease, unspecified COPD type (CMS/HCC) CAD, multiple vessel Anemia, unspecified type Gastroesophageal reflux disease, unspecified whether esophagitis present Benign prostatic hyperplasia, unspecified whether lower urinary tract symptoms present Incomplete right bundle branch block Primary hypertension Cardiac volume overload Electrolyte abnormality Post-op pain On supplemental oxygen by nasal cannula S/P AVR S/P CABG x 4 Obstructive sleep apnea Gastroesophageal reflux disease without esophagitis Hypertension, unspecified type Pulmonary emphysema, unspecified emphysema type (CMS/HCC) OXYGEN THERAPY Routine 02/22/2025 8:00 AM EDT BLOOD GAS PANEL, ARTERIAL Routine 02/22/2025 6:39 AM EDT PEP THERAPY Routine 02/22/2025 6:00 AM EDT OXYGEN THERAPY Routine 02/22/2025 5:56 AM EDT OXYGEN THERAPY Routine 02/22/2025 5:56 AM EDT EXTUBATION Routine 02/22/2025 5:56 AM EDT BLOOD GAS PANEL, ARTERIAL Routine 02/22/2025 5:31 AM EDT ECG ADULT Routine 02/22/2025 3:44 AM EDT BLOOD GAS PANEL WITH OXIMETRY, MIXED VENOUS Routine 02/22/2025 3:44 AM EDT BLOOD GAS PANEL, ARTERIAL Timed 02/22/2025 3:43 AM EDT CBC W/O DIFFERENTIAL Routine 02/22/2025 3:42 AM EDT PHOSPHORUS, PLASMA Routine 02/22/2025 3:42 AM EDT MAGNESIUM, PLASMA Routine 02/22/2025 3:42 AM EDT BASIC METABOLIC PANEL, PLASMA Routine 02/22/2025 3:42 AM EDT TRIGLYCERIDES, PLASMA Timed 02/22/2025 3:42 AM EDT HEMATOCRIT, BLOOD Timed 02/22/2025 3:42 AM EDT HEMOGLOBIN Timed 02/22/2025 3:42 AM EDT XR CHEST 1 VIEW Routine 02/22/2025 1:43 AM EDT POTASSIUM, PLASMA Routine 02/22/2025 12:07 AM EDT HEMOGLOBIN AND HEMATOCRIT, BLOOD Routine 02/22/2025 12:07 AM EDT BLOOD GAS PANEL, ARTERIAL Timed 02/22/2025 12:06 AM EDT VENTILATOR - ADULT Routine 02/21/2025 11:46 PM EDT IN CRITICAL CARE, E/M 30-74 MINUTES Routine 02/21/2025 11:38 PM EDT Sinus bradycardia POTASSIUM, PLASMA Timed 02/21/2025 10:36 PM EDT HEMATOCRIT, BLOOD Timed 02/21/2025 10:36 PM EDT HEMOGLOBIN Timed 02/21/2025 10:36 PM EDT APTT STAT 02/21/2025 10:36 PM EDT PROTHROMBIN TIME(PT) / INR STAT 02/21/2025 10:36 PM EDT PHOSPHORUS, PLASMA STAT 02/21/2025 10:36 PM EDT MAGNESIUM, PLASMA STAT 02/21/2025 10:36 PM EDT BASIC METABOLIC PANEL, PLASMA STAT 02/21/2025 10:36 PM EDT CBC W/O DIFFERENTIAL STAT 02/21/2025 10:36 PM EDT BLOOD GAS PANEL, ARTERIAL STAT 02/21/2025 10:36 PM EDT HEPATITIS C ANTIBODY W/REFLEX TO HCV QUANT PCR Routine 02/21/2025 10:36 PM EDT HEPATITIS B CORE ANTIBODY IGM Routine 02/21/2025 10:36 PM EDT HEPATITIS B CORE TOTAL AB (IGG AND IGM) Routine 02/21/2025 10:36 PM EDT HEPATITIS B SURFACE ANTIBODY, QUANTITATIVE Routine 02/21/2025 10:36 PM EDT HEPATITIS B SURFACE ANTIGEN Routine 02/21/2025 10:36 PM EDT XR CHEST 1 VIEW STAT 02/21/2025 10:36 PM EDT HALEY AURIS SURVEILLANCE BY PCR Routine 02/21/2025 10:36 PM EDT MULTI DRUG RESISTANCE TEST Routine 02/21/2025 10:36 PM EDT ECG ADULT STAT 02/21/2025 10:26 PM EDT PEP THERAPY Routine 02/21/2025 10:00 PM EDT PEP THERAPY Routine 02/21/2025 9:54 PM EDT PEP THERAPY Routine 02/21/2025 9:54 PM EDT PEP THERAPY Routine 02/21/2025 9:54 PM EDT PEP THERAPY Routine 02/21/2025 9:54 PM EDT PEP THERAPY Routine 02/21/2025 9:54 PM EDT TRANSFUSE FRESH FROZEN PLASMA Routine 02/21/2025 9:41 PM EDT TRANSFUSE FRESH FROZEN PLASMA Routine 02/21/2025 9:38 PM EDT POCT ARTERIAL BLOOD GAS GEM UNSOLICITED RESULTS Routine 02/21/2025 9:37 PM EDT TRANSFUSE FRESH FROZEN PLASMA Routine 02/21/2025 9:11 PM EDT TRANSFUSE RED BLOOD CELLS Routine 02/21/2025 9:08 PM EDT POCT ARTERIAL BLOOD GAS GEM UNSOLICITED RESULTS Routine 02/21/2025 9:05 PM EDT TEG GLOBAL HEMOSTASIS WITH HEPARINASE STAT 02/21/2025 9:02 PM EDT Sinus bradycardia Concentric left ventricular hypertrophy Edentulous NSTEMI (non-ST elevated myocardial infarction) (CMS/HCC) Cervical radiculopathy Tobacco abuse disorder Hyperlipidemia, unspecified hyperlipidemia type Hypocalcemia Aortic valve insufficiency, etiology of cardiac valve disease unspecified Situational depression Obesity (BMI 30-39.9) Aortic valve stenosis, etiology of cardiac valve disease unspecified Chronic obstructive pulmonary disease, unspecified COPD type (CMS/HCC) CAD, multiple vessel Anemia, unspecified type Heart failure with mid-range ejection fraction (HFmEF) ([facility]/HCC) Gastroesophageal reflux disease, unspecified whether esophagitis present Benign prostatic hyperplasia, unspecified whether lower urinary tract symptoms present Incomplete right bundle branch block Primary hypertension APTT STAT 02/21/2025 9:02 PM EDT Sinus bradycardia Concentric left ventricular hypertrophy Edentulous NSTEMI (non-ST elevated myocardial infarction) (CMS/HCC) Cervical radiculopathy Tobacco abuse disorder Hyperlipidemia, unspecified hyperlipidemia type Hypocalcemia Aortic valve insufficiency, etiology of cardiac valve disease unspecified Situational depression Obesity (BMI 30-39.9) Aortic valve stenosis, etiology of cardiac valve disease unspecified Chronic obstructive pulmonary disease, unspecified COPD type (CMS/HCC) CAD, multiple vessel Anemia, unspecified type Heart failure with mid-range ejection fraction (HFmEF) (CMS/HCC) Gastroesophageal reflux disease, unspecified whether esophagitis present Benign prostatic hyperplasia, unspecified whether lower urinary tract symptoms present Incomplete right bundle branch block Primary hypertension PROTHROMBIN TIME(PT) / INR STAT 02/21/2025 9:02 PM EDT Sinus bradycardia Concentric left ventricular hypertrophy Edentulous NSTEMI (non-ST elevated myocardial infarction) ([facility]/HCC) Cervical radiculopathy Tobacco abuse disorder Hyperlipidemia, unspecified hyperlipidemia type Hypocalcemia Aortic valve insufficiency, etiology of cardiac valve disease unspecified Situational depression Obesity (BMI 30-39.9) Aortic valve stenosis, etiology of cardiac valve disease unspecified Chronic obstructive pulmonary disease, unspecified COPD type (CMS/HCC) CAD, multiple vessel Anemia, unspecified type Heart failure with mid-range ejection fraction (HFmEF) ([facility]) Gastroesophageal reflux disease, unspecified whether esophagitis present Benign prostatic hyperplasia, unspecified whether lower urinary tract symptoms present Incomplete right bundle branch block Primary hypertension FIBRINOGEN,QUANTITATI VE (CLOTTABLE) STAT 02/21/2025 9:02 PM EDT Sinus bradycardia Concentric left ventricular hypertrophy Edentulous NSTEMI (non-ST elevated myocardial infarction) ([facility]/HCC) Cervical radiculopathy Tobacco abuse disorder Hyperlipidemia, unspecified hyperlipidemia type Hypocalcemia Aortic valve insufficiency, etiology of cardiac valve disease unspecified Situational depression Obesity (BMI 30-39.9) Aortic valve stenosis, etiology of cardiac valve disease unspecified Chronic obstructive pulmonary disease, unspecified COPD type (CMS/HCC) CAD, multiple vessel Anemia, unspecified type Heart failure with mid-range ejection fraction (HFmEF) ([facility]/HCC) Gastroesophageal reflux disease, unspecified whether esophagitis present Benign prostatic hyperplasia, unspecified whether lower urinary tract symptoms present Incomplete right bundle branch block Primary hypertension PLATELET COUNT, BLOOD STAT 02/21/2025 9:02 PM EDT Sinus bradycardia Concentric left ventricular hypertrophy Edentulous NSTEMI (non-ST elevated myocardial infarction) ([facility]/HCC) Cervical radiculopathy Tobacco abuse disorder Hyperlipidemia, unspecified hyperlipidemia type Hypocalcemia Aortic valve insufficiency, etiology of cardiac valve disease unspecified Situational depression Obesity (BMI 30-39.9) Aortic valve stenosis, etiology of cardiac valve disease unspecified Chronic obstructive pulmonary disease, unspecified COPD type ([facility]) CAD, multiple vessel Anemia, unspecified type Heart failure with mid-range ejection fraction (HFmEF) ([facility]) Gastroesophageal reflux disease, unspecified whether esophagitis present Benign prostatic hyperplasia, unspecified whether lower urinary tract symptoms present Incomplete right bundle branch block Primary hypertension PREPARE FRESH FROZEN PLASMA STAT 02/21/2025 8:48 PM EDT PREPARE RBC STAT 02/21/2025 8:47 PM EDT TRANSFUSE FRESH FROZEN PLASMA Routine 02/21/2025 8:46 PM EDT TRANSFUSE PLATELETS Routine 02/21/2025 8:45 PM EDT PREPARE PLATELETS STAT 02/21/2025 8:37 PM EDT TRANSFUSE FRESH FROZEN PLASMA Routine 02/21/2025 8:34 PM EDT TRANSFUSE PLATELETS Routine 02/21/2025 8:29 PM EDT TRANSFUSE CRYOPRECIPITATE Routine 02/21/2025 8:19 PM EDT TRANSFUSE FRESH FROZEN PLASMA Routine 02/21/2025 8:04 PM EDT TRANSFUSE FRESH FROZEN PLASMA Routine 02/21/2025 8:04 PM EDT QPLUS Routine 02/21/2025 8:03 PM EDT TRANSFUSE CRYOPRECIPITATE Routine 02/21/2025 7:59 PM EDT TRANSFUSE PLATELETS Routine 02/21/2025 7:58 PM EDT POCT ACT UNSOLICITED RESULTS Routine 02/21/2025 7:53 PM EDT POCT ARTERIAL BLOOD GAS GEM UNSOLICITED RESULTS Routine 02/21/2025 7:50 PM EDT POCT ACT UNSOLICITED RESULTS Routine 02/21/2025 7:47 PM EDT TRANSFUSE RED BLOOD CELLS Routine 02/21/2025 7:30 PM EDT POCT ARTERIAL BLOOD GAS GEM UNSOLICITED RESULTS Routine 02/21/2025 7:29 PM EDT TRANSFUSE RED BLOOD CELLS Routine 02/21/2025 7:06 PM EDT POCT ARTERIAL BLOOD GAS GEM UNSOLICITED RESULTS Routine 02/21/2025 7:00 PM EDT POCT ACT UNSOLICITED RESULTS Routine 02/21/2025 6:57 PM EDT POCT ARTERIAL BLOOD GAS GEM UNSOLICITED RESULTS Routine 02/21/2025 6:32 PM EDT POCT ACT UNSOLICITED RESULTS Routine 02/21/2025 6:25 PM EDT TRANSFUSE RED BLOOD CELLS Routine 02/21/2025 6:07 PM EDT POCT ARTERIAL BLOOD GAS GEM UNSOLICITED RESULTS Routine 02/21/2025 6:05 PM EDT POCT ACT UNSOLICITED RESULTS Routine 02/21/2025 6:02 PM EDT POCT ARTERIAL BLOOD GAS GEM UNSOLICITED RESULTS Routine 02/21/2025 5:31 PM EDT POCT ACT UNSOLICITED RESULTS Routine 02/21/2025 5:28 PM EDT TEG GLOBAL HEMOSTASIS WITH HEPARINASE Routine 02/21/2025 5:28 PM EDT Sinus bradycardia Concentric left ventricular hypertrophy Edentulous NSTEMI (non-ST elevated myocardial infarction) ([facility]/HCC) Cervical radiculopathy Tobacco abuse disorder Hyperlipidemia, unspecified hyperlipidemia type Hypocalcemia Aortic valve insufficiency, etiology of cardiac valve disease unspecified Situational depression Obesity (BMI 30-39.9) Aortic valve stenosis, etiology of cardiac valve disease unspecified Chronic obstructive pulmonary disease, unspecified COPD type ([facility]) CAD, multiple vessel Anemia, unspecified type Heart failure with mid-range ejection fraction (HFmEF) ([facility]) Gastroesophageal reflux disease, unspecified whether esophagitis present Benign prostatic hyperplasia, unspecified whether lower urinary tract symptoms present Incomplete right bundle branch block Primary hypertension PLATELET COUNT, BLOOD Routine 02/21/2025 5:28 PM EDT Sinus bradycardia Concentric left ventricular hypertrophy Edentulous NSTEMI (non-ST elevated myocardial infarction) (CMS/HCC) Cervical radiculopathy Tobacco abuse disorder Hyperlipidemia, unspecified hyperlipidemia type Hypocalcemia Aortic valve insufficiency, etiology of cardiac valve disease unspecified Situational depression Obesity (BMI 30-39.9) Aortic valve stenosis, etiology of cardiac valve disease unspecified Chronic obstructive pulmonary disease, unspecified COPD type (CMS/HCC) CAD, multiple vessel Anemia, unspecified type Heart failure with mid-range ejection fraction (HFmEF) (CMS/HCC) Gastroesophageal reflux disease, unspecified whether esophagitis present Benign prostatic hyperplasia, unspecified whether lower urinary tract symptoms present Incomplete right bundle branch block Primary hypertension FIBRINOGEN,QUANTITATI VE (CLOTTABLE) Routine 02/21/2025 5:28 PM EDT Sinus bradycardia Concentric left ventricular hypertrophy Edentulous NSTEMI (non-ST elevated myocardial infarction) (CMS/HCC) Cervical radiculopathy Tobacco abuse disorder Hyperlipidemia, unspecified hyperlipidemia type Hypocalcemia Aortic valve insufficiency, etiology of cardiac valve disease unspecified Situational depression Obesity (BMI 30-39.9) Aortic valve stenosis, etiology of cardiac valve disease unspecified Chronic obstructive pulmonary disease, unspecified COPD type (CMS/HCC) CAD, multiple vessel Anemia, unspecified type Heart failure with mid-range ejection fraction (HFmEF) ([facility]/HCC) Gastroesophageal reflux disease, unspecified whether esophagitis present Benign prostatic hyperplasia, unspecified whether lower urinary tract symptoms present Incomplete right bundle branch block Primary hypertension PREPARE CRYOPRECIPITATE STAT 02/21/2025 5:05 PM EDT PREPARE PLATELETS STAT 02/21/2025 5:04 PM EDT POCT ARTERIAL BLOOD GAS GEM UNSOLICITED RESULTS Routine 02/21/2025 4:50 PM EDT POCT ACT UNSOLICITED RESULTS Routine 02/21/2025 4:47 PM EDT POCT ARTERIAL BLOOD GAS GEM UNSOLICITED RESULTS Routine 02/21/2025 4:12 PM EDT POCT ACT UNSOLICITED RESULTS Routine 02/21/2025 4:09 PM EDT POCT ARTERIAL BLOOD GAS GEM UNSOLICITED RESULTS Routine 02/21/2025 3:33 PM EDT POCT ACT UNSOLICITED RESULTS Routine 02/21/2025 3:28 PM EDT SURGICAL PATHOLOGY EXAM Routine 02/21/2025 3:12 PM EDT Sinus bradycardia Concentric left ventricular hypertrophy Edentulous NSTEMI (non-ST elevated myocardial infarction) ([facility]/HCC) Cervical radiculopathy Tobacco abuse disorder Hyperlipidemia, unspecified hyperlipidemia type Hypocalcemia Aortic valve insufficiency, etiology of cardiac valve disease unspecified Situational depression Obesity (BMI 30-39.9) Aortic valve stenosis, etiology of cardiac valve disease unspecified Chronic obstructive pulmonary disease, unspecified COPD type ([facility]/HCC) CAD, multiple vessel Anemia, unspecified type Heart failure with mid-range ejection fraction (HFmEF) ([facility]) Gastroesophageal reflux disease, unspecified whether esophagitis present Benign prostatic hyperplasia, unspecified whether lower urinary tract symptoms present Incomplete right bundle branch block Primary hypertension PREPARE FRESH FROZEN PLASMA STAT 02/21/2025 3:09 PM EDT PREPARE RBC STAT 02/21/2025 3:09 PM EDT TRANSFUSE RED BLOOD CELLS Routine 02/21/2025 3:07 PM EDT POCT ARTERIAL BLOOD GAS GEM UNSOLICITED RESULTS Routine 02/21/2025 3:05 PM EDT POCT ACT UNSOLICITED RESULTS Routine 02/21/2025 3:01 PM EDT POCT ARTERIAL BLOOD GAS GEM UNSOLICITED RESULTS Routine 02/21/2025 2:38 PM EDT POCT ACT UNSOLICITED RESULTS Routine 02/21/2025 2:33 PM EDT POCT ARTERIAL BLOOD GAS GEM UNSOLICITED RESULTS Routine 02/21/2025 2:04 PM EDT POCT ACT UNSOLICITED RESULTS Routine 02/21/2025 1:56 PM EDT POCT ARTERIAL BLOOD GAS GEM UNSOLICITED RESULTS Routine 02/21/2025 1:21 PM EDT POCT ACT UNSOLICITED RESULTS Routine 02/21/2025 1:13 PM EDT POCT ARTERIAL BLOOD GAS GEM UNSOLICITED RESULTS Routine 02/21/2025 12:39 PM EDT POCT ACT UNSOLICITED RESULTS Routine 02/21/2025 12:35 PM EDT TRANSFUSE RED BLOOD CELLS Routine 02/21/2025 12:32 PM EDT EXTRA TUBE GOLD TOP Routine 02/21/2025 12:21 PM EDT EXTRA TUBE GOLD TOP Routine 02/21/2025 12:21 PM EDT EXTRA TUBES Routine 02/21/2025 12:21 PM EDT HEPATITIS B VIRUS (HBV) QUANTITATIVE PCR STAT 02/21/2025 12:21 PM EDT Sinus bradycardia Concentric left ventricular hypertrophy Edentulous NSTEMI (non-ST elevated myocardial infarction) ([facility]/HCC) Cervical radiculopathy Tobacco abuse disorder Hyperlipidemia, unspecified hyperlipidemia type Hypocalcemia Aortic valve insufficiency, etiology of cardiac valve disease unspecified Situational depression Obesity (BMI 30-39.9) Aortic valve stenosis, etiology of cardiac valve disease unspecified Chronic obstructive pulmonary disease, unspecified COPD type ([facility]/HCC) CAD, multiple vessel Anemia, unspecified type Heart failure with mid-range ejection fraction (HFmEF) ([facility]) Gastroesophageal reflux disease, unspecified whether esophagitis present Benign prostatic hyperplasia, unspecified whether lower urinary tract symptoms present Incomplete right bundle branch block Primary hypertension HEPATITIS C VIRUS (HCV) QUANTITATIVE PCR STAT 02/21/2025 12:21 PM EDT Sinus bradycardia Concentric left ventricular hypertrophy Edentulous NSTEMI (non-ST elevated myocardial infarction) (CMS/HCC) Cervical radiculopathy Tobacco abuse disorder Hyperlipidemia, unspecified hyperlipidemia type Hypocalcemia Aortic valve insufficiency, etiology of cardiac valve disease unspecified Situational depression Obesity (BMI 30-39.9) Aortic valve stenosis, etiology of cardiac valve disease unspecified Chronic obstructive pulmonary disease, unspecified COPD type (CMS/HCC) CAD, multiple vessel Anemia, unspecified type Heart failure with mid-range ejection fraction (HFmEF) (CMS/HCC) Gastroesophageal reflux disease, unspecified whether esophagitis present Benign prostatic hyperplasia, unspecified whether lower urinary tract symptoms present Incomplete right bundle branch block Primary hypertension HEPATITIS C VIRUS (HCV) GENOTYPE STAT 02/21/2025 12:21 PM EDT Sinus bradycardia Concentric left ventricular hypertrophy Edentulous NSTEMI (non-ST elevated myocardial infarction) (CMS/HCC) Cervical radiculopathy Tobacco abuse disorder Hyperlipidemia, unspecified hyperlipidemia type Hypocalcemia Aortic valve insufficiency, etiology of cardiac valve disease unspecified Situational depression Obesity (BMI 30-39.9) Aortic valve stenosis, etiology of cardiac valve disease unspecified Chronic obstructive pulmonary disease, unspecified COPD type (CMS/HCC) CAD, multiple vessel Anemia, unspecified type Heart failure with mid-range ejection fraction (HFmEF) (CMS/HCC) Gastroesophageal reflux disease, unspecified whether esophagitis present Benign prostatic hyperplasia, unspecified whether lower urinary tract symptoms present Incomplete right bundle branch block Primary hypertension HUMAN IMMUNODEFICIENCY VIRUS (HIV-1) QUANTITATIVE PCR STAT 02/21/2025 12:21 PM EDT Sinus bradycardia Concentric left ventricular hypertrophy Edentulous NSTEMI (non-ST elevated myocardial infarction) (CMS/HCC) Cervical radiculopathy Tobacco abuse disorder Hyperlipidemia, unspecified hyperlipidemia type Hypocalcemia Aortic valve insufficiency, etiology of cardiac valve disease unspecified Situational depression Obesity (BMI 30-39.9) Aortic valve stenosis, etiology of cardiac valve disease unspecified Chronic obstructive pulmonary disease, unspecified COPD type (CMS/HCC) CAD, multiple vessel Anemia, unspecified type Heart failure with mid-range ejection fraction (HFmEF) (CMS/HCC) Gastroesophageal reflux disease, unspecified whether esophagitis present Benign prostatic hyperplasia, unspecified whether lower urinary tract symptoms present Incomplete right bundle branch block Primary hypertension POCT ARTERIAL BLOOD GAS GEM UNSOLICITED RESULTS Routine 02/21/2025 12:07 PM EDT POCT ACT UNSOLICITED RESULTS Routine 02/21/2025 12:00 PM EDT POCT ACT UNSOLICITED RESULTS Routine 02/21/2025 11:31 AM EDT PB ANESTHESIA NON-TIMED PROCEDURE PLACEHOLDER Routine 02/21/2025 11:29 AM EDT TRANSFUSE RED BLOOD CELLS Routine 02/21/2025 11:02 AM EDT POCT ACT UNSOLICITED RESULTS Routine 02/21/2025 11:00 AM EDT POCT ARTERIAL BLOOD GAS GEM UNSOLICITED RESULTS Routine 02/21/2025 10:52 AM EDT POCT ACT UNSOLICITED RESULTS Routine 02/21/2025 10:49 AM EDT IN INSERT/PLACE FLOW DIRECT CATH Routine 02/21/2025 9:35 AM EDT ANESTHESIA ULTRASOUND GUIDED Routine 02/21/2025 9:35 AM EDT PB ANESTHESIA NON-TIMED PROCEDURE PLACEHOLDER Routine 02/21/2025 9:35 AM EDT IN AN CENTRAL LINE TRIPLE LUMEN Routine 02/21/2025 9:35 AM EDT PB ANESTHESIA NON-TIMED PROCEDURE PLACEHOLDER Routine 02/21/2025 9:35 AM EDT PB ANESTHESIA PLACEHOLDER Routine 02/21/2025 9:10 AM EDT IN AN ELECTIVE ENDOTRACHEAL AIRWAY Routine 02/21/2025 9:10 AM EDT POCT ARTERIAL BLOOD GAS GEM UNSOLICITED RESULTS Routine 02/21/2025 9:02 AM EDT POCT ACT UNSOLICITED RESULTS Routine 02/21/2025 8:58 AM EDT REPAIR OR REPLACEMENT, AORTIC VALVE, REPEAT 02/21/2025 8:32 AM EDT Sinus bradycardia Concentric left ventricular hypertrophy Edentulous NSTEMI (non-ST elevated myocardial infarction) (CMS/HCC) Cervical radiculopathy Tobacco abuse disorder Hyperlipidemia, unspecified hyperlipidemia type Hypocalcemia Aortic valve insufficiency, etiology of cardiac valve disease unspecified Situational depression Obesity (BMI 30-39.9) Aortic valve stenosis, etiology of cardiac valve disease unspecified Chronic obstructive pulmonary disease, unspecified COPD type (CMS/HCC) CAD, multiple vessel Anemia, unspecified type Heart failure with mid-range ejection fraction (HFmEF) (CMS/HCC) Gastroesophageal reflux disease, unspecified whether esophagitis present Benign prostatic hyperplasia, unspecified whether lower urinary tract symptoms present Incomplete right bundle branch block Primary hypertension CABG, 2 OR MORE VESSELS 02/21/2025 8:32 AM EDT Sinus bradycardia Concentric left ventricular hypertrophy Edentulous NSTEMI (non-ST elevated myocardial infarction) (CMS/HCC) Cervical radiculopathy Tobacco abuse disorder Hyperlipidemia, unspecified hyperlipidemia type Hypocalcemia Aortic valve insufficiency, etiology of cardiac valve disease unspecified Situational depression Obesity (BMI 30-39.9) Aortic valve stenosis, etiology of cardiac valve disease unspecified Chronic obstructive pulmonary disease, unspecified COPD type (CMS/HCC) CAD, multiple vessel Anemia, unspecified type Heart failure with mid-range ejection fraction (HFmEF) (CMS/HCC) Gastroesophageal reflux disease, unspecified whether esophagitis present Benign prostatic hyperplasia, unspecified whether lower urinary tract symptoms present Incomplete right bundle branch block Primary hypertension PREPARE RBC Routine 02/21/2025 6:54 AM EDT MAGNESIUM, PLASMA Routine 02/21/2025 12:10 AM EDT COMPREHENSIVE METABOLIC PANEL, PLASMA Routine 02/21/2025 12:10 AM EDT CBC W/O DIFFERENTIAL Routine 02/21/2025 12:10 AM EDT ANTI XA LEVEL UNFRACTIONATED HEPARIN Timed 02/21/2025 12:10 AM EDT ANTI XA LEVEL UNFRACTIONATED HEPARIN Timed 02/20/2025 4:49 PM EDT CBC W/O DIFFERENTIAL Routine 02/20/2025 12:53 AM EDT XR CHEST 2 VIEWS Routine 02/19/2025 10:57 AM EDT TYPE AND SCREEN Pending Discharge 02/19/2025 10:24 AM EDT ANTI XA LEVEL UNFRACTIONATED HEPARIN Routine 02/19/2025 12:59 AM EDT MAGNESIUM, PLASMA Routine 02/19/2025 12:59 AM EDT COMPREHENSIVE METABOLIC PANEL, PLASMA Routine 02/19/2025 12:59 AM EDT CBC W/O DIFFERENTIAL Routine 02/19/2025 12:59 AM EDT ANTI XA LEVEL UNFRACTIONATED HEPARIN Timed 02/18/2025 6:39 PM EDT ANTI XA LEVEL UNFRACTIONATED HEPARIN Timed 02/18/2025 11:47 AM EDT HC BREATHING CAPACITY TEST Routine 02/18/2025 8:58 AM EDT ANTI XA LEVEL UNFRACTIONATED HEPARIN Timed 02/18/2025 6:04 AM EDT CBC W/O DIFFERENTIAL Routine 02/18/2025 6:04 AM EDT IONIZED CALCIUM, SERUM Routine 02/18/2025 12:13 AM EDT PHOSPHORUS, PLASMA Routine 02/18/2025 12:13 AM EDT MAGNESIUM, PLASMA Routine 02/18/2025 12:13 AM EDT BASIC METABOLIC PANEL, PLASMA Routine 02/18/2025 12:13 AM EDT CBC W/O DIFFERENTIAL Routine 02/18/2025 12:13 AM EDT ANTI XA LEVEL UNFRACTIONATED HEPARIN Timed 02/17/2025 11:03 PM EDT ANTI XA LEVEL UNFRACTIONATED HEPARIN Timed 02/17/2025 3:50 PM EDT VAS US CAROTID DUPLEX BILATERAL Routine 02/17/2025 11:48 AM EDT VAS US VENOUS DUPLEX LOWER EXTREMITY BILATERAL Routine 02/17/2025 11:35 AM EDT ECHO, ADULT TRANSTHORACIC COMPLETE Routine 02/17/2025 9:30 AM EDT ANTI XA LEVEL UNFRACTIONATED HEPARIN Timed 02/17/2025 8:03 AM EDT EXTRA TUBE LIGHT GREEN TOP Routine 02/17/2025 5:47 AM EDT EXTRA TUBES Routine 02/17/2025 5:47 AM EDT PHOSPHORUS, PLASMA STAT 02/17/2025 5:47 AM EDT MAGNESIUM, PLASMA STAT 02/17/2025 5:47 AM EDT IONIZED CALCIUM, WHOLE BLOOD STAT 02/17/2025 5:47 AM EDT CBC W/O DIFFERENTIAL STAT 02/17/2025 5:47 AM EDT BASIC METABOLIC PANEL, PLASMA STAT 02/17/2025 5:47 AM EDT ANTI XA LEVEL UNFRACTIONATED HEPARIN Timed 02/17/2025 1:09 AM EDT EXTRA TUBE LIGHT GREEN TOP Routine 02/16/2025 10:53 PM EDT EXTRA TUBES Routine 02/16/2025 10:53 PM EDT TROPONIN T, HIGH SENSITIVITY, 2 HOUR, PLASMA Timed 02/16/2025 10:53 PM EDT EXTRA TUBE LAVENDER TOP Routine 02/16/2025 8:27 PM EDT EXTRA TUBE LIGHT GREEN TOP Routine 02/16/2025 8:27 PM EDT EXTRA TUBES Routine 02/16/2025 8:27 PM EDT BLOOD GAS PANEL, VENOUS Routine 02/16/2025 8:23 PM EDT CREATINE KINASE, TOTAL, PLASMA Add-On 02/16/2025 8:15 PM EDT LIPID PROFILE, PLASMA Add-On 02/16/2025 8:15 PM EDT LACTIC ACID, PLASMA Routine 02/16/2025 8:15 PM EDT TROPONIN T, HIGH SENSITIVITY, 0 HOUR, PLASMA, REFLEX TO 2 HOUR STAT 02/16/2025 8:15 PM EDT PLATELET P2Y12 RECEPTOR BLOCKADE, VERIFY NOW PRU Routine 02/16/2025 8:15 PM EDT XR CHEST 1 VIEW STAT 02/16/2025 8:00 PM EDT EXTRA TUBE GOLD TOP Routine 02/16/2025 7:59 PM EDT EXTRA TUBE LAVENDER TOP Routine 02/16/2025 7:59 PM EDT EXTRA TUBES Routine 02/16/2025 7:59 PM EDT ECG ADULT STAT 02/16/2025 7:49 PM EDT FREE T4, PLASMA Routine 02/16/2025 7:36 PM EDT ANTI XA LEVEL UNFRACTIONATED HEPARIN Timed 02/16/2025 7:36 PM EDT TSH REFLEX FT4 Routine 02/16/2025 7:36 PM EDT PREALBUMIN, PLASMA STAT 02/16/2025 7:36 PM EDT N-TERMINAL PROBNP, PLASMA STAT 02/16/2025 7:36 PM EDT IONIZED CALCIUM, SERUM STAT 02/16/2025 7:36 PM EDT PHOSPHORUS, PLASMA STAT 02/16/2025 7:36 PM EDT MAGNESIUM, PLASMA STAT 02/16/2025 7:36 PM EDT COMPREHENSIVE METABOLIC PANEL, PLASMA STAT 02/16/2025 7:36 PM EDT CBC WITH AUTO DIFFERENTIAL STAT 02/16/2025 7:36 PM EDT APTT Routine 02/16/2025 7:36 PM EDT PROTHROMBIN TIME(PT) / INR Routine 02/16/2025 7:36 PM EDT TYPE AND SCREEN Routine 02/16/2025 7:36 PM EDT HEMOGLOBIN A1C Routine 02/16/2025 7:36 PM EDT FIBRINOGEN,QUANTITATI VE (CLOTTABLE) Routine 02/16/2025 7:[address] OUTSIDE IMAGES 02/15/2025 11:54 AM EDT IR OUTSIDE IMAGES 02/15/2025 10:23 AM EDT US OUTSIDE IMAGES 02/15/2025 6:49 AM EDT US OUTSIDE IMAGES 02/15/2025 6:14 AM EDT US OUTSIDE IMAGES 02/13/2025 5:21 PM EDT XR OUTSIDE IMAGES 02/13/2025 4:55 PM EDT from Last 3 Months Results * (ABNORMAL) CBC and Differential (03/31/2025 4:17 AM EDT) Only the most recent of8 resultswithin the time period is included. WBC Count 5.55 3.70 - 10.30 10*3/uL LAB HEMATOLOGY METHOD 03/31/2025 4:41 AM EDT [facility] RBC Count 2.57(L) 4.60 - 6.10 10*6/uL LAB HEMATOLOGY METHOD 03/31/2025 4:41 AM EDT [facility] HGB 7.6(L) 13.7 - 17.5 g/dL LAB HEMATOLOGY METHOD 03/31/2025 4:41 AM EDT [facility] HCT 24.7(L) 40.0 - 51.0 % LAB HEMATOLOGY METHOD 03/31/2025 4:41 AM EDT [facility] Platelet Count 218 155 - 369 10*3/uL LAB HEMATOLOGY METHOD 03/31/2025 4:41 AM EDT [facility] MCV 96 79 - 98 fL LAB HEMATOLOGY METHOD 03/31/2025 4:41 AM EDT [facility] MCH 29.6 26.0 - 32.0 pg LAB HEMATOLOGY METHOD 03/31/2025 4:41 AM EDT [facility] MCHC 30.8 30.7 - 35.5 g/dL LAB HEMATOLOGY METHOD 03/31/2025 4:41 AM EDT [facility] RDW 19.1(H) 11.5 - 14.5 % LAB HEMATOLOGY METHOD 03/31/2025 4:41 AM EDT [facility] MPV 10.4 8.8 - 12.5 fL LAB HEMATOLOGY METHOD 03/31/2025 4:41 AM EDT [facility] nRBC 0.0 <=0.0 per 100 WBCs LAB HEMATOLOGY METHOD 03/31/2025 4:41 AM EDT [facility] Differential Type Automated LAB HEMATOLOGY METHOD 03/31/2025 4:41 AM EDT [facility] Neutrophils % 43 % LAB HEMATOLOGY METHOD 03/31/2025 4:41 AM EDT [facility] Lymphocytes % 46 % LAB HEMATOLOGY METHOD 03/31/2025 4:41 AM EDT [facility] Monocytes % 6 % LAB HEMATOLOGY METHOD 03/31/2025 4:41 AM EDT [facility] Eosinophils % 3 % LAB HEMATOLOGY METHOD 03/31/2025 4:41 AM EDT [facility] Basophils % 1 % LAB HEMATOLOGY METHOD 03/31/2025 4:41 AM EDT [facility] Immature Granulocytes % 1 % LAB HEMATOLOGY METHOD 03/31/2025 4:41 AM EDT [facility] Neutrophils Absolute 2.41 1.60 - 6.10 10*3/uL LAB HEMATOLOGY METHOD 03/31/2025 4:41 AM EDT [facility] Lymphocytes Absolute 2.53 1.20 - 3.90 10*3/uL LAB HEMATOLOGY METHOD 03/31/2025 4:41 AM EDT [facility] Monocytes Absolute 0.33 0.30 - 0.90 10*3/uL LAB HEMATOLOGY METHOD 03/31/2025 4:41 AM EDT [facility] Eosinophils Absolute 0.17 0.00 - 0.50 10*3/uL LAB HEMATOLOGY METHOD 03/31/2025 4:41 AM EDT [facility] Basophils Absolute 0.05 0.00 - 0.10 10*3/uL LAB HEMATOLOGY METHOD 03/31/2025 4:41 AM EDT [facility] Immature Granulocytes Absolute 0.06 0.00 - 0.06 10*3/uL LAB HEMATOLOGY METHOD 03/31/2025 4:41 AM EDT [facility] Blood Venous blood specimen / Unknown Venipuncture / Unknown 03/31/2025 4:17 AM EDT 03/31/2025 4:29 AM EDT [facility] - 03/31/2025 4:41 AM EDT Therapeutic decision making should be based on absolute values, rather than percentages. Yin Christopher MD LAB BLOOD ORDERABLES Fi nal Result [facility] [address] [place] [address] * (ABNORMAL) Magnesium, Plasma (03/31/2025 4:17 AM EDT) Only the most recent of27 resultswithin the time period is included. Magnesium, Plasma 1.7(L) 1.9 - 2.4 mg/dL 03/31/2025 4:57 AM EDT [facility] Blood Venous blood specimen / Unknown Venipuncture / Unknown 03/31/2025 4:17 AM EDT 03/31/2025 4:27 AM EDT Yin Christopher MD LAB BLOOD ORDERABLES nal Result Performing Organization Address [facility]/ZIP Co de Phone Number [facility] [address] [place] [address] * (ABNORMAL) Comprehensive Metabolic Panel, Plasma (03/31/2025 4:17 AM EDT) Only the most recent of13 resultswithin the time period is included. Glucose, Plasma 125(H) 74 - 99 mg/dL 03/31/2025 4:57 AM EDT [facility] BUN, Plasma 28(H) 8 - 23 mg/dL 03/31/2025 4:57 AM EDT [facility] Creatinine, Plasma 0.72 0.70 - 1.20 mg/dL 03/31/2025 4:57 AM EDT [facility] BUN/Creatinine Ratio 39 03/31/2025 4:57 AM EDT [facility] Sodium, Plasma 136 136 - 145 mmol/L 03/31/2025 4:57 AM EDT [facility] Potassium, Plasma 4.1 3.6 - 4.9 mmol/L 03/31/2025 4:57 AM EDT [facility] Chloride, Plasma 106 97 - 107 mmol/L 03/31/2025 4:57 AM EDT [facility] CO2, Plasma 22 22 - 29 mmol/L 03/31/2025 4:57 AM EDT [facility] Anion Gap 8 6 - 16 mmol/L 03/31/2025 4:57 AM EDT [facility] Total Calcium, Plasma 8.1(L) 8.9 - 10.2 mg/dL 03/31/2025 4:57 AM EDT [facility] Total Protein 5.0(L) 6.3 - 7.9 g/dL 03/31/2025 4:57 AM EDT [facility] Albumin, Plasma 2.8(L) 3.5 - 5.2 g/dL 03/31/2025 4:57 AM EDT [facility] AST, Plasma 24 10 - 50 U/L 03/31/2025 4:57 AM EDT [facility] ALT, Plasma 14 10 - 50 U/L 03/31/2025 4:57 AM EDT [facility] Alkaline Phosphatase, Plasma 106 40 - 115 U/L 03/31/2025 4:57 AM EDT [facility] Total Bilirubin, Plasma 0.3 0.2 - 1.1 mg/dL 03/31/2025 4:57 AM EDT [facility] eGFRcr 100.8 mL/min/1.7 3m*2 03/31/2025 4:57 AM EDT [facility] Comment:Reported eGFRcr in m L/min/1.73m2 is based the CKD-EPI 2020 equation that does not use a race coefficient. Blood Venous blood specimen / Unknown Venipuncture / Unknown 03/31/2025 4:17 AM EDT 03/31/2025 4:27 AM EDT Yin Christopher MD LAB BLOOD ORDERABLES Fi nal Result [facility] [address] [place] [address] * Phosphorus, Plasma (03/30/2025 4:52 AM EDT) Only the most recent of10 resultswithin the time period is included. Phosphorus, Plasma 3.3 2.5 - 4.5 mg/dL 03/30/2025 5:36 AM EDT [facility] Blood Venous blood specimen / Unknown Venipuncture / Unknown 03/30/2025 4:52 AM EDT 03/30/2025 5:04 AM EDT Yin Christopher MD LAB BLOOD ORDERABLES Fi nal Result Performing Organization Address City/[facility]/ZIP Co de Phone Number [facility] [address] [place] [address] * Transfuse RBC (03/29/2025 12:59 PM EDT) Only the most recent of11 resultswithin the time period is included. Yin Christopher MD BLOOD TRANSFUSION ORDER CASTILLO Final Result * Prepare Leukocyte Reduced RBC: 1 Units (03/29/2025 8:37 AM EDT) Only the most recent of7 resultswithin the time period is included. Product Code [id number] CH BLOO D BANK Dispense Status Transfused BLOOD BANK Blood Expiration Date [id number] BLOOD BANK Unit Number [id number] CH B LOOD BANK Product Blood Type 5100 BLOOD BANK Blood Type O+ BLOOD BANK Crossmatch Compatible BLOOD BANK Other Yin Christopher MD BLOOD BANK PRODUCT ORDE RABLES Final Result Performing Organization Address City/[facility] de Phone Number BLOOD BANK [address] [place] [address], * Type and screen (03/29/2025 6:05 AM EDT) Only the most recent of6 resultswithin the time period is included. ABO/Rh O Positive 03/29/2025 5:51 AM EDT BLOOD BANK Antibody Screen Negative 03/29/2025 5:51 AM EDT BLOOD BANK Specimen Expiration 04/01/2025 23:59 03/29/2025 5:51 AM EDT BLOOD BANK Blood Venous blood specimen / Unknown Venipuncture / Unknown 03/29/2025 6:05 AM EDT 03/29/2025 6:16 AM EDT Tete Farfan DO LAB BLOOD BANK TEST ORDERA BLES Final Result Performing Organization Address City/[facility]/ZIP Co de Phone Number BLOOD BANK [address] [place] [address], * (ABNORMAL) Occult Blood, Fecal by Immunoassay (SO) (03/28/2025 4:18 PM EDT) Occult Blood, Fecal Immunosay Interpretation Positive( A) 03/31/2025 10:15 AM EDT [facility] ([employer]) Stool Non-blood Collection / Unknown 03/28/2025 4:18 PM EDT 03/28/2025 4:27 PM EDT Narrative [facility] ([employer]) - 03/31/2025 10:15 AM EDT INTERPRETIVE INFORMATION: Fecal Occult Blood by Immunoassay No single cutoff provides superior colorectal cancer detection rates. The test correspondence analyst recommends the use of a 100 ng/mL cutoff that produces a specificity of approximately 95 percent for the detection of lower gastrointestinal bleeding. This test does not detect upper gastrointestinal bleeding. Performed By: [facility] [address] [place] [address] Educational Administrator: Wilfrid Carr MD, PhD CLIA Number: [id number] Ramez Ma APRN, JESSE LAB REF LAB BLOOD AND FLUID ORD Final Result Performing Organization Address [facility] de Phone Number [facility] [employer]) [address] [place] [address] * Helicobacter pylori Antigen (03/28/2025 4:18 PM EDT) Helicobacter pylori Antigen Result Negative Negative 03/28/2025 5:39 PM EDT [facility] Stool Rectum structure / Unknown Non-blood Collection / Unknown 03/28/2025 4:18 PM EDT 03/28/2025 4:33 PM EDT Yin Christopher MD LAB MICROBIOLOGY - GENE RAL ORDERABLES Final Result [facility] [address] [place] [address] * (ABNORMAL) CBC W/O Differential (03/28/2025 12:15 PM EDT) Only the most recent of25 resultswithin the time period is included. WBC Count 6.21 3.70 - 10.30 10*3/uL LAB HEMATOLOGY METHOD 03/28/2025 12:29 PM EDT [facility] RBC Count 2.38(L) 4.60 - 6.10 10*6/uL LAB HEMATOLOGY METHOD 03/28/2025 12:29 PM EDT [facility] HGB 7.0(L) 13.7 - 17.5 g/dL LAB HEMATOLOGY METHOD 03/28/2025 12:29 PM EDT [facility] HCT 22.6(L) 40.0 - 51.0 % LAB HEMATOLOGY METHOD 03/28/2025 12:29 PM EDT [facility] Platelet Count 215 155 - 369 10*3/uL LAB HEMATOLOGY METHOD 03/28/2025 12:29 PM EDT [facility] MCV 95 79 - 98 fL LAB HEMATOLOGY METHOD 03/28/2025 12:29 PM EDT [facility] MCH 29.4 26.0 - 32.0 pg LAB HEMATOLOGY METHOD 03/28/2025 12:29 PM EDT [facility] MCHC 31.0 30.7 - 35.5 g/dL LAB HEMATOLOGY METHOD 03/28/2025 12:29 PM EDT [facility] RDW 21.1(H) 11.5 - 14.5 % LAB HEMATOLOGY METHOD 03/28/2025 12:29 PM EDT [facility] MPV 10.3 8.8 - 12.5 fL LAB HEMATOLOGY METHOD 03/28/2025 12:29 PM EDT [facility] nRBC 0.0 <=0.0 per 100 WBCs LAB HEMATOLOGY METHOD 03/28/2025 12:29 PM EDT [facility] Blood Venous blood specimen / Unknown Venipuncture / Unknown 03/28/2025 12:15 PM EDT 03/28/2025 12:22 PM EDT us Yin Christopher MD LAB BLOOD ORDERABLES Fi nal Result Performing Organization Address City/[facility]/ZIP Co de Phone Number [facility] [address] [place] [address] * (ABNORMAL) Hemoglobin and Hematocrit, Blood (03/28/2025 12:32 AM EDT) Only the most recent of14 resultswithin the time period is included. HGB 7.1(L) 13.7 - 17.5 g/dL LAB HEMATOLOGY METHOD 03/28/2025 1:01 AM EDT [facility] HCT 22.7(L) 40.0 - 51.0 % LAB HEMATOLOGY METHOD 03/28/2025 1:01 AM EDT [facility] Blood Venous blood specimen / Unknown Venipuncture / Unknown 03/28/2025 12:32 AM EDT 03/28/2025 12:45 AM EDT Ramez Ma APRN, DNP LAB BLOOD ORDERAB LES Final Result Performing Organization Address [facility] Co de Phone Number [facility] [address] [place] [address] * (ABNORMAL) Basic metabolic panel (03/26/2025 12:17 AM EDT) Only the most recent of11 resultswithin the time period is included. Glucose, Plasma 99 74 - 99 mg/dL 03/26/2025 12:54 AM EDT [facility] BUN, Plasma 24(H) 8 - 23 mg/dL 03/26/2025 12:54 AM EDT [facility] Creatinine, Plasma 0.75 0.70 - 1.20 mg/dL 03/26/2025 12:54 AM EDT [facility] BUN/Creatinine Ratio 32 03/26/2025 12:54 AM EDT [facility] Sodium, Plasma 137 136 - 145 mmol/L 03/26/2025 12:54 AM EDT [facility] Potassium, Plasma 4.1 3.6 - 4.9 mmol/L 03/26/2025 12:54 AM EDT [facility] Chloride, Plasma 107 97 - 107 mmol/L 03/26/2025 12:54 AM EDT [facility] CO2, Plasma 19(L) 22 - 29 mmol/L 03/26/2025 12:54 AM EDT [facility] Anion Gap 11 6 - 16 mmol/L 03/26/2025 12:54 AM EDT [facility] Total Calcium, Plasma 7.9(L) 8.9 - 10.2 mg/dL 03/26/2025 12:54 AM EDT [facility] eGFRcr 99.5 mL/min/1.7 3m*2 03/26/2025 12:54 AM EDT [facility] Comment:Reported eGFRcr in m L/min/1.73m2 is based the CKD-EPI 2020 equation that does not use a race coefficient. Blood Venous blood specimen / Unknown Venipuncture / Unknown 03/26/2025 12:17 AM EDT 03/26/2025 12:26 AM EDT Ramez Ma APRN, JESSE LAB BLOOD ORDERAB LES Final Result [facility] [address] [place] [address] * EGD MEAGAN AGGARWAL; 03/25/2025 (03/25/2025 5:22 [...] Recommendations Other - [facility] to same [facility] for [facility] care. - Okay to resume anticoagulation and antiplatelet medications on 03/26 if medically indicated - Continue PPI BID for 8-12 weeks then can decrease to daily - Check H. Pylori stool antigen - Restart previous diet immediately - Monitor for post-procedure complications abdominal pain, fever, gastrointestinal bleeding and call web solutions architect GI if present. - Findings and recommendations were discussed with patient. - Findings and recommendations to be conveyed to primary team. Indication Acute GI bleeding Medications See anesthesia record for anesthesia administered medications. Staff Staff Role Elbert Monreal CRNA CRNA [place], Jolynn Endo Carpet Measurer Betsy Ellis RN Endo Nurse Meagan Aggarwal MD Proceduralist [...] MD GI PROCEDURE ORDERABLES Final Result * (ABNORMAL) Troponin T, High Sensitivity, 2 Hour, Plasma (03/25/2025 8:28 AM EDT) Only the most recent of3 resultswithin the time period is included. Troponin T, High Sensitivity, 2 Hour 74(H) <19 ng/L 03/25/2025 9:14 AM EDT [facility] Troponin Delta 3 <10 ng/L 03/25/2025 9:14 AM EDT [facility] [facility] Troponin Delta Interpretation Not Significant 03/25/2025 9:14 AM EDT [facility] Comment:Not Significant. No acute change in troponin observed between the baseline and 2 hour samples. Blood Venous blood specimen / Unknown Venipuncture / Unknown 03/25/2025 8:28 AM EDT 03/25/2025 8:44 AM EDT us Ramezgucci Ma APRN, JESSE LAB BLOOD ORDERAB LES Final Result Performing Organization Address [facility] de Phone Number [facility] [address] [place] [address] * (ABNORMAL) Troponin T, High Sensitivity, 0 Hour Plasma, Reflex to 2 Hour (03/25/2025 6:23 AM EDT) Only the most recent of4 resultswithin the time period is included. Troponin T, High Sensitivity, 0 Hour 77(H) <19 ng/L 03/25/2025 6:58 AM EDT [facility] Blood Venous blood specimen / Unknown Venipuncture / Unknown 03/25/2025 6:23 AM EDT 03/25/2025 6:29 AM EDT us Ramez Ma APRN, DNP LAB BLOOD ORDERAB LES Final Result Performing Organization Address [facility] de Phone Number [facility] [address] [place] [address] * Lactate, venous (03/25/2025 6:23 AM EDT) Lactate, Venous, Whole Blood 0.8 0.5 - 2.2 mmol/L LAB HEMATOLOGY METHOD 03/25/2025 6:28 AM EDT [facility] Blood Venous blood specimen / Unknown Venipuncture / Unknown 03/25/2025 6:23 AM EDT 03/25/2025 6:27 AM EDT us Ramezgucci Ma APRN, JESSE LAB BLOOD ORDERAB LES Final Result Performing Organization Address City/[facility] Co de Phone Number [facility] [address] [place] [address] * Haptoglobin (03/25/2025 6:23 AM EDT) Haptoglobin, Serum 167 40 - 219 mg/dL 03/25/2025 6:59 AM EDT [facility] Blood Venous blood specimen / Unknown Venipuncture / Unknown 03/25/2025 6:23 AM EDT 03/25/2025 6:29 AM EDT us Ramez N Aylabetamanna AREA DEVELOPMENT CONSULTANT, DNP LAB BLOOD ORDERAB LES Final Result [facility] [address] [place] [address] * (ABNORMAL) Iron & Total Iron Binding Capacity, Plasma (Includes Transferrin) (03/25/2025 3:36 AM EDT) Only the most recent of2 resultswithin the time period is included. Iron, Plasma 81 50 - 170 ug/dL 03/25/2025 6:04 AM EDT [facility] Transferrin, Plasma 195(L) 200 - 360 mg/dL 03/25/2025 6:04 AM EDT [facility] Total Iron Binding Capacity, Plasma 244 240 - 450 ug/mL 03/25/2025 6:04 AM EDT [facility] Transferrin Saturation 33 14 - 50 % 03/25/2025 6:04 AM EDT [facility] Blood Venous blood specimen / Unknown Venipuncture / Unknown 03/25/2025 3:36 AM EDT 03/25/2025 3:50 AM EDT us Ramez N Bostonupambeya AREA DEVELOPMENT CONSULTANT, DNP LAB BLOOD ORDERAB LES Final Result [facility] [address] [place] [address] * C-reactive protein (03/25/2025 3:36 AM EDT) Only the most recent of3 resultswithin the time period is included. CRP, Plasma 6.3 <=8.0 mg/L 03/25/2025 6:04 AM EDT [facility] Blood Venous blood specimen / Unknown Venipuncture / Unknown 03/25/2025 3:36 AM EDT 03/25/2025 3:50 AM EDT Narrative [facility] - 03/25/2025 6:04 AM EDT This CRP test is appropriate for assessment of infection, systemic inflammation and/or tissue injury. To assess cardiovascular disease risk order high sensitivity CRP (CRPH). us Ramez Ma APRN, DNP LAB BLOOD ORDERAB LES Final Result [facility] [address] [place] [address] * (ABNORMAL) Hepatic function panel (03/25/2025 3:36 AM EDT) Only the most recent of2 resultswithin the time period is included. Conjugated Bilirubin, Plasma 0.5(H) <=0.3 mg/dL 03/25/2025 4:22 AM EDT [facility] Alkaline Phosphatase, Plasma 74 40 - 115 U/L 03/25/2025 4:22 AM EDT [facility] Total Bilirubin, Plasma 1.0 0.2 - 1.1 mg/dL 03/25/2025 4:22 AM EDT [facility] Albumin, Plasma 2.7(L) 3.5 - 5.2 g/dL 03/25/2025 4:22 AM EDT [facility] Total Protein 5.1(L) 6.3 - 7.9 g/dL 03/25/2025 4:22 AM EDT [facility] ALT, Plasma 21 10 - 50 U/L 03/25/2025 4:22 AM EDT [facility] AST, Plasma 26 10 - 50 U/L 03/25/2025 4:22 AM EDT [facility] Blood Venous blood specimen / Unknown Venipuncture / Unknown 03/25/2025 3:36 AM EDT 03/25/2025 3:50 AM EDT Naga Hidalgo MD LAB BLOOD ORDERABLES Final Re sult [facility] [address] [place] [address] * ECG Adult (03/25/2025 3:31 AM EDT) Only the most recent of6 resultswithin the time period is included. EKG DIAGNOSIS CLASS Abnormal MUSE ECG Ventricular Rate 62 BPM MUSE ECG Atrial Rate 62 BPM MUSE ECG IN Interval 182 ms MUSE ECG QRSD Interval 94 ms MUSE ECG QT Interval 450 ms MUSE ECG QTC Interval 456 ms MUSE ECG P [place] 69 degrees MUSE ECG R [place] 42 degrees MUSE ECG T Wave [place] 138 degrees MUSE ECG Diagnosis Normal sinus rhythm MUSE ECG Diagnosis ST & T wave abnormality, consider anterolateral ischemia MUSE ECG Diagnosis Consider ACUTE CORONARY SYNDROME (ACS) MUSE ECG Diagnosis Abnormal ECG MUSE ECG Diagnosis MUSE ECG Diagnosis Confirmed by Ramone Marie ([id number]) on 03/25/2025 10:29:53 AM MUSE ECG 03/25/2025 3:31 AM EDT 03/25/2025 10:29 AM EDT Naga Hidalgo MD ECG ORDERABLES Final Result Performing Organization Address City/[facility] Co de Phone Number MUSE ECG * Procalcitonin (03/25/2025 3:29 AM EDT) Only the most recent of2 resultswithin the time period is included. Procalcitonin, Plasma 0.08 <0.09 ng/mL 03/25/2025 6:09 AM EDT [facility] Blood Venous blood specimen / Unknown Venipuncture / Unknown 03/25/2025 3:29 AM EDT 03/25/2025 3:50 AM EDT Narrative [facility] - 03/25/2025 6:09 AM [...] predict 28 day mortality risk. Please consult [email or web address] for more information. Test performed at [facility]. us Ramezgucci Ma APRN, DNP LAB BLOOD ORDERAB LES Final Result Performing Organization Address [facility] [place] [address] * (ABNORMAL) N-Terminal Probnp (03/25/2025 3:29 AM EDT) Only the most recent of6 resultswithin the time period is included. N-Terminal, PROBNP, Plasma 1,495(H) 0 - 899 pg/mL 03/25/2025 6:09 AM EDT [facility] Blood Venous blood specimen / Unknown Venipuncture / Unknown 03/25/2025 3:29 AM EDT 03/25/2025 3:50 AM EDT us Ramezgucci Ma APRN, JESSE LAB BLOOD ORDERAB LES Final Result Performing Organization Address City/[facility] [place] [address] * (ABNORMAL) PT-INR (03/25/2025 3:29 AM EDT) Only the most recent of4 resultswithin the time period is included. Prothrombin Time 20.1(H) 12.0 - 14.3 sec 03/25/2025 3:47 AM EDT [facility] INR 1.7(H) 0.9 - 1.1 03/25/2025 3:47 AM EDT [facility] Blood Venous blood specimen / Unknown Venipuncture / Unknown 03/25/2025 3:29 AM EDT 03/25/2025 3:32 AM EDT Narrative [facility] - 03/25/2025 3:47 AM EDT OPTIMAL INR RANGES FOR PATIENT ON ORAL ANTICOAGULANT THERAPY Prevention of venous thromboembolism INR 2.0 to 3.0 In patients with heart disease: Atrial fibrillation INR 2.0 to 3.0 Valvular heart disease INR 2.0 to 3.0 Tissue heart valves INR 2.0 to 3.0 Mechanical prosthetic valves INR 2.5 to 3.5 Prevention of recurrent MO INR 2.5 to 3.5 us Naga Hidalgo MD LAB BLOOD ORDERABLES Final Re sult Performing Organization Address City/[facility]/ZIP Co de Phone Number [facility] [address] [place] [address] * (ABNORMAL) Reticulocytes (03/25/2025 3:29 AM EDT) Reticulocyte Absolute 214.2(H) 40.0 - 110.0 10*3/uL LAB HEMATOLOGY METHOD 03/25/2025 5:46 AM EDT [facility] Immature Reticulocyte Fraction 43.1(H) 3.1 - 17.6 % LAB HEMATOLOGY METHOD 03/25/2025 5:46 AM EDT [facility] Reticulocyte Hemoglobin 29.9 28 - 38 pg LAB HEMATOLOGY METHOD 03/25/2025 5:46 AM EDT [facility] Reticulocyte Count 8.50(H) 0.90 - 2.50 % LAB HEMATOLOGY METHOD 03/25/2025 5:46 AM EDT [facility] Blood Venous blood specimen / Unknown Venipuncture / Unknown 03/25/2025 3:29 AM EDT 03/25/2025 3:32 AM EDT us Ramez Ma APRN, JESSE LAB BLOOD ORDERAB LES Final Result Performing Organization Address City/[facility]/ZIP Co de Phone Number [facility] [address] [place] [address] * Lactate dehydrogenase (03/25/2025 3:29 AM EDT) LDH, Plasma 236 116 - 250 U/L 03/25/2025 6:09 AM EDT [facility] Blood Venous blood specimen / Unknown Venipuncture / Unknown 03/25/2025 3:29 AM EDT 03/25/2025 3:50 AM EDT us Ramez N Anil AREA DEVELOPMENT CONSULTANT, DNP LAB BLOOD ORDERAB LES Final Result [facility] [address] [place] [address] * XR Chest 1 View (03/17/2025 5:20 AM EDT) Only the most recent of17 resultswithin the time period is included. Anatomical Region Laterality Modality Chest Digital Radiogra [...] Parker MD on 03/17/2025 7:38 AM Marily Nazia Garcia AREA DEVELOPMENT CONSULTANT IMG XR PROCEDURES Final Resu lt * IN CARDIOVERSION, ELECTIVE;DINING ROOM CAPTAIN, HC CARDIOVERSION ELECTIVE ARRHYTHMIA EXTERNAL (03/16/2025 12:42 PM EDT) Narrative Dimitrios Wright MD - 03/16/2025 12:42 PM EDT Dimitrios Wright MD 03/17/2025 8:03 AM Electrical Cardioversion Performed by: Negrito Galvan MD Authorized by: Lata Sahu MD Consent: Consent obtained: Written Consent given by: Patient Risks, benefits, and alternatives were discussed: yes Risks discussed: Cutaneous burn, induced arrhythmia, and pain Alternatives discussed: Rate-control medication Loretto protocol: Procedure explained and questions answered to [...] Procedure completion: Tolerated well, no immediate complications Lata Sahu MD IN CLINIC/BEDSIDE ORDERABLES Fi [...] was reviewed interactively on an advanced workstation ([employer]) capable of 2 and 3 dimensional displays [...] 192 MDCT scanner ([employer], [employer])was used for data acquisition. Bolus tracking [...] Data was reviewed interactively on an advanced workstation([employer]) capable of 2 and 3 dimensional displays [...] signing this report, I, the attending physician, mari I have personally reviewed the images/data for the aboveexamination(s) and agree with the final edited report. Drafted by Chema Arteaga on 03/16/2025 8:57 AM Final report signed by Ana Luisa Pinto on 03/16/2025 10:24 AM Mellisa Tian APRN IMG CT PROCEDURES Final Result * ECHO, ADULT TRANSTHORACIC COMPLETE (03/12/2025 11:07 AM EDT) BSA 2.20 m2 GUILLERMINA ISCV Height 180.0 [...] Root Diam 35 mm GUILLERMINA ISCV PA IN(ACCEL) 25.9 mmHg GUILLERMINA ISCV LVLs ap2 8.1 [...] a bioprosthetic valve in the aortic position. us Lata Sahu MD CV ECHO PROCEDURES Final Result * (ABNORMAL) Wound Culture and Gram Stain (03/12/2025 6:52 AM EDT) CULTURE READING WOUND Light Growth 03/16/2025 10:40 AM EDT [facility] CULTURE READING WOUND 1+ Biotype 1 Escherichia coli(A) DUSTIN 03/16/2025 10:40 AM EDT [facility] Comment: This isolate has been identified using the FDA Approved Hivelocityy[employer] CA System The organism value for this [...] has been identified using the FDA Approved Hivelocityyper CA System The organism value for this [...] DUSTIN <=2 ug/ml: Susceptible Escherichia coli Tobramycin UDSTIN 4 ug/ml: Susceptible Escherichia coli Trimethoprim/Sulfamethoxazole DUSTIN [...] MICROBIOLOGY - GENERA L ORDERABLES Final Result [facility] [address] [place] [address] * IN DRAIN SKIN ABSCESS COMPLIC (03/12/2025 5:54 AM EDT) Narrative Jo Curtis MD - 03/12/2025 5:54 AM EDT Jo Curtsi MD 03/22/2025 1:49 PM Incision & Drainage Performed by: Roger Sales MD Authorized by: Jo Curtis MD Consent: Consent obtained: Written Consent given by: Patient Risks, benefits, and alternatives were discussed: yes Risks discussed: Bleeding, incomplete drainage, pain and infection Alternatives discussed: No treatment, delayed treatment and alternative treatment Loretto protocol: Procedure explained and questions answered to [...] IN CLINIC/BEDSIDE ORDERAB LES Final Result * Anti Xa Level Low Molecular Weight [...] Baum LAB [place]OD [place] [address] * (ABNORMAL) Lipase (03/12/2025 3:59 AM EDT) Pathologist [facility] Lipase, Plasma 17(L) 19 - 63 U/L 03/12/2025 4:35 AM EDT [facility] Blood Venous blood specimen / Unknown Venipuncture / Unknown 03/12/2025 3:59 AM EDT 03/12/2025 4:04 AM EDT us Sloane Baum LAB BLOOD ORDERABLES Final Resul t Performing Organization Address [facility] Co de Phone Number [facility] [address] [place] [address] * POC Imaging (03/12/2025) Anatomical Region Laterality Modality Pelvis Other 03/12/2025 us External Provider IMG POINT OF CARE ULTRASOUND F inal Result * POCT glucose meter (03/02/2025 11:30 AM EDT) Only the most recent of18 resultswithin the time period is included. [facility] POCT Glucose 98 74 - 99 mg/dL 03/02/2025 11:31 AM EDT [facility] Comment:Accuracy of a glucos e result obtained from a capillary whole blood specimen relies upon adequate, non-compromised capillary blood flow. If the capillary glucose result is not consistent with the patient's clinical signs and symptoms, glucose testing should be repeated with either an arterial or venous sample on the glucometer or sent to the main labortory for testing. Comment 03/02/2025 11:31 AM EDT [facility] Hogshead Builder ID Catalina Leonardo 025 11:31 AM EDT [facility] Device ID [id number] 03/02/2025 11:31 AM EDT [facility] Specimen Type POC Capillary 03/02/2025 11:31 AM EDT [facility] Blood Capillary blood specimen / Unknown 03/02/2025 11:30 AM EDT 03/02/2025 11:31 AM EDT us Lata Sahu MD LAB POINT OF CARE TE ST DOCKED DEVICE UNSOLICITED RESULTS Final Result [facility] [address] [place] [id number] * (ABNORMAL) Renal Function Panel, Plasma (03/02/2025 12:20 AM EDT) Only the most recent of7 resultswithin the time period is included. Glucose, Plasma 93 74 - 99 mg/dL 03/02/2025 1:21 AM EDT [facility] BUN, Plasma 28(H) 8 - 23 mg/dL 03/02/2025 1:21 AM EDT [facility] Creatinine, Plasma 0.63(L) 0.70 - 1.20 mg/dL 03/02/2025 1:21 AM EDT [facility] BUN/Creatinine Ratio 44 03/02/2025 1:21 AM EDT [facility] Sodium, Plasma 134(L) 136 - 145 mmol/L 03/02/2025 1:21 AM EDT [facility] Potassium, Plasma 3.9 3.6 - 4.9 mmol/L 03/02/2025 1:21 AM EDT [facility] Chloride, Plasma 102 97 - 107 mmol/L 03/02/2025 1:21 AM EDT [facility] CO2, Plasma 18(L) 22 - 29 mmol/L 03/02/2025 1:21 AM EDT [facility] Anion Gap 14 6 - 16 mmol/L 03/02/2025 1:21 AM EDT [facility] Total Calcium, Plasma 8.3(L) 8.9 - 10.2 mg/dL 03/02/2025 1:21 AM EDT [facility] Phosphorus, Plasma 3.2 2.5 - 4.5 mg/dL 03/02/2025 1:21 AM EDT [facility] Albumin, Plasma 2.9(L) 3.5 - 5.2 g/dL 03/02/2025 1:21 AM EDT [facility] eGFRcr 104.9 mL/min/1.7 3m*2 03/02/2025 1:21 AM EDT [facility] Comment:Reported eGFRcr in m L/min/1.73m2 is based the CKD-EPI 2020 equation that does not use a race coefficient. Blood Venous blood specimen / Unknown Venipuncture / Unknown 03/02/2025 12:20 AM EDT 03/02/2025 12:27 AM EDT us Chuy SANDOVAL LAB BLOOD ORDERABLES Final Result [facility] [address] [place] [address] * XR Chest 2 Views (03/01/2025 4:58 AM EDT) Only the most recent of2 resultswithin the time period is included. Anatomical Region Laterality Modality Chest Computed Radiogr aphy Impressions 03/01/2025 10:09 AM EDT No significant interval changes. CRITICAL RESULT: No. COMMUNICATION: Per this written report. By electronically signing this report, I, the attending physician, attest that I have personally reviewed the images/data for the above examination(s) and agree with the final edited report. Drafted by Miki Padron MD on 03/01/2025 8:57 AM Final report signed by Mauro Paredes MD on 03/01/2025 10:09 AM Narrative 03/01/2025 10:09 AM EDT CLINICAL INDICATION: post cabg TECHNIQUE: XR CHEST 2 VIEWS COMPARISON: February 28, 2025 FINDINGS: Stable partially obscured cardiomediastinal silhouette. Persistent bibasilar airspace opacities, stable. Small bilateral pleural effusions. No pneumothorax. Procedure Note Mauro Paredes MD - 03/01/2025 CLINICAL INDICATION: post cabg TECHNIQUE: XR CHEST 2 VIEWS COMPARISON: February 28, 2025 FINDINGS: Stable partially obscured cardiomediastinal silhouette. Persistentbibasilar airspace opacities, stable. Small bilateral pleural effusions.No pneumothorax. IMPRESSION: No significant interval changes. CRITICAL RESULT: No. COMMUNICATION: Per this written report. By electronically signing this report, I, the attending physician, annitaat I have personally reviewed the images/data for the aboveexamination(s) and agree with the final edited report. Drafted by Miki Padron MD on 03/01/2025 8:57 AM Final report signed by Mauro Paredes MD on 03/01/2025 10:09 AM Chuy SANDOVAL IMG XR PROCEDURES Final Res ult * IN CRITICAL CARE, E/M 30-74 MINUTES (02/25/2025 12:48 PM EDT) Narrative Joy Fleming APRN, CNS, DNP - 02/25/2025 12:48 PM EDT Joy Fleming APRN, CNS, DNP 02/25/2025 12:51 PM Critical Care Performed by: Joy Fleming APRN, CNS, DNP Authorized by: Joy Fleming APRN, CNS, DNP Critical care provider statement: Critical care time (minutes): 40 Critical care was time spent personally by me on the following activities: Development of treatment plan with patient or surrogate, discussions with consultants, discussions with primary provider, evaluation of patient's response to treatment, examination of patient, ordering and performing treatments and interventions, ordering and review of laboratory studies, ordering and review of radiographic studies and review of old charts Comments: The patient is critically ill with: CAD s/p 4vCABG and bAVR, afib, gastric distension, pain They require complex decision making. The patient was seen on rounds with critical care physician, Dr. Hein and they are in agreement with the plan of care. Pharmacy, respiratory and nursing services were present on rounds. ENRRIQUE Guillermo APRN, DNP IN CLINIC/BEDSIDE ORDERABLES Final Result * XR Abdomen 1 View (02/25/2025 10:34 AM EDT) Anatomical Region Laterality Modality Body Digital Radiogra phy Impressions 02/25/2025 3:08 PM EDT Overall, decrease dilation of the colon now measuring 6.5 cm in greatest diameter, suggestive of improving ileus. CRITICAL RESULT: No. COMMUNICATION: Per this written report. By electronically signing this report, I, the attending physician, attest that I have personally reviewed the images/data for the above examination(s) and agree with the final edited report. Drafted by Jose Carlos Ricardo MD on 02/25/2025 1:34 PM Final report signed by Raúl Andrade MD on 02/25/2025 3:08 PM Narrative 02/25/2025 3:08 PM EDT CLINICAL INDICATION: gastric distension TECHNIQUE: XR ABDOMEN 1 VIEW COMPARISON: February 24, 2024 CT, chest radiograph 8 hours prior. FINDINGS: Unchanged appearance of the lower chest and median sternotomy wires. Urinary bladder temperature sensing catheter. Overall, similar positioning of the visualized portions of the mediastinal and chest tubes. Moderate diffuse gas within mildly dilated and nondilated colon. On comparison to the CT topogram, decreased gaseous dilation of the colon measuring in greatest diameter 6.5 cm in the left hemiabdomen. No gas containing dilated small bowel with decreased small bowel gas compared to CT topogram from 02/23/2025. Small amount of gas within the stomach. No pneumatosis or pneumoperitoneum. Bilateral renal calculi, better visualized on CT. No acute osseous abnormality. Procedure Note Raúl Andrade MD - 02/25/2025 CLINICAL INDICATION: gastric distension TECHNIQUE: XR ABDOMEN 1 VIEW COMPARISON: February 24, 2024 CT, chest radiograph 8 hours prior. FINDINGS: Unchanged appearance of the lower chest and median sternotomy wires.Urinary bladder temperature sensing catheter. Overall, similar positioningof the visualized portions of the mediastinal and chest tubes. Moderate diffuse gas within mildly dilated and nondilated colon. Oncomparison to the CT topogram, decreased gaseous dilation of the colonmeasuring in greatest diameter 6.5 cm in the left hemiabdomen. No gascontaining dilated small bowel with decreased small bowel gas compared toCT topogram from 02/23/2025. Small amount of gas within the stomach. Nopneumatosis or pneumoperitoneum. Bilateral renal calculi, bettervisualized on CT. No acute osseous abnormality. IMPRESSION: Overall, decrease dilation of the colon now measuring 6.5 cm in greatestdiameter, suggestive of improving ileus. CRITICAL RESULT: No. COMMUNICATION: Per this written report. By electronically signing this report, I, the attending physician, attenmaat I have personally reviewed the images/data for the aboveexamination(s) and agree with the final edited report. Drafted by Jose Carlos Ricardo MD on 02/25/2025 1:34 PM Final report signed by Raúl Andrade MD on 02/25/2025 3:08 PM us Joy Fleming AREA DEVELOPMENT CONSULTANT, NEURODIAGNOSTIC TECH, DNP IMG XR PROCEDURES Final Result * (ABNORMAL) Blood gas panel with oximetry, mixed venous (02/25/2025 3:39 AM EDT) Only the most recent of7 resultswithin the time period is included. pH, Mixed Venous 7.44(H) 7.32 - 7.43 LAB HEMATOLOGY METHOD 02/25/2025 3:58 AM EDT [facility] pCO2, Mixed Venous 36(L) 40 - 55 mmHg LAB HEMATOLOGY METHOD 02/25/2025 3:58 AM EDT [facility] pO2, Mixed Venous 31 25 - 40 mmHg LAB HEMATOLOGY METHOD 02/25/2025 3:58 AM EDT [facility] SO2, Measured, Mixed Venous 54(L) 65 - 80 % LAB HEMATOLOGY METHOD 02/25/2025 3:58 AM EDT [facility] Bicarbonate, Calculated, Mixed Venous 25 22 - 26 mmol/L LAB HEMATOLOGY METHOD 02/25/2025 3:58 AM EDT [facility] Base Excess, Mixed Venous 0.8 -2.0 - 3.0 mmol/L LAB HEMATOLOGY METHOD 02/25/2025 3:58 AM EDT [facility] Hematocrit, Whole Blood 29.0(L) 40.0 - 51.0 % LAB HEMATOLOGY METHOD 02/25/2025 3:58 AM EDT [facility] Sodium, Whole Blood 141 136 - 145 mmol/L LAB HEMATOLOGY METHOD 02/25/2025 3:58 AM EDT [facility] Potassium, Whole Blood 3.6 3.6 - 4.9 mmol/L LAB HEMATOLOGY METHOD 02/25/2025 3:58 AM EDT [facility] Chloride, Whole Blood 106 97 - 107 mmol/L LAB HEMATOLOGY METHOD 02/25/2025 3:58 AM EDT [facility] Ionized Calcium, Whole Blood 4.5(L) 4.6 - 5.1 mg/dL LAB HEMATOLOGY METHOD 02/25/2025 3:58 AM EDT [facility] Glucose, Whole Blood 93 74 - 99 mg/dL LAB HEMATOLOGY METHOD 02/25/2025 3:58 AM EDT [facility] Oxyhemoglobin, Mixed Venous, Whole Blood 52.6 40.0 - 70.0 % LAB HEMATOLOGY METHOD 02/25/2025 3:58 AM EDT [facility] Hemoglobin Reduced, Mixed Venous, Whole Blood 45.1 % LAB HEMATOLOGY METHOD 02/25/2025 3:58 AM EDT [facility] Total Hemoglobin, Mixed Venous, Whole Blood 9.5(L) 13.7 - 17.5 g/dL LAB HEMATOLOGY METHOD 02/25/2025 3:58 AM EDT [facility] Blood Mixed venous blood specimen / Unknown Venipuncture / Unknown 02/25/2025 3:39 AM EDT 02/25/2025 3:55 AM EDT us Lata Sahu MD LAB BLOOD ORDERABLES Final Resu lt [facility] [address] [place] [address] * (ABNORMAL) Blood gas, arterial (02/25/2025 3:33 AM EDT) Only the most recent of15 resultswithin the time period is included. pH, Arterial 7.48(H) 7.31 - 7.42 LAB HEMATOLOGY METHOD 02/25/2025 3:59 AM EDT [facility] pCO2, Arterial 31(L) 32 - 45 mmHg LAB HEMATOLOGY METHOD 02/25/2025 3:59 AM EDT [facility] pO2, Arterial 72(L) >80 mmHg LAB HEMATOLOGY METHOD 02/25/2025 3:59 AM EDT [facility] SO2, Measured, Arterial 96 94 - 98 % LAB HEMATOLOGY METHOD 02/25/2025 3:59 AM EDT [facility] Base Excess, Arterial 0.0 -2.0 - 3.0 mmol/L LAB HEMATOLOGY METHOD 02/25/2025 3:59 AM EDT [facility] Bicarbonate, Calculated, Arterial 23 22 - 26 mmol/L LAB HEMATOLOGY METHOD 02/25/2025 3:59 AM EDT [facility] Hematocrit, Whole Blood 28.5(L) 40.0 - 51.0 % LAB HEMATOLOGY METHOD 02/25/2025 3:59 AM EDT [facility] Sodium, Whole Blood 140 136 - 145 mmol/L LAB HEMATOLOGY METHOD 02/25/2025 3:59 AM EDT [facility] Potassium, Whole Blood 3.6 3.6 - 4.9 mmol/L LAB HEMATOLOGY METHOD 02/25/2025 3:59 AM EDT [facility] Chloride, Whole Blood 107 97 - 107 mmol/L LAB HEMATOLOGY METHOD 02/25/2025 3:59 AM EDT [facility] Glucose, Whole Blood 91 74 - 99 mg/dL LAB HEMATOLOGY METHOD 02/25/2025 3:59 AM EDT [facility] Ionized Calcium, Whole Blood 4.5(L) 4.6 - 5.1 mg/dL LAB HEMATOLOGY METHOD 02/25/2025 3:59 AM EDT [facility] Lactate, Arterial, Whole Blood 1.2 0.5 - 1.6 mmol/L LAB HEMATOLOGY METHOD 02/25/2025 3:59 AM EDT [facility] Blood Arterial blood specimen / Unknown Arterial Puncture / Unknown 02/25/2025 3:33 AM EDT 02/25/2025 3:55 AM EDT Ramandeep Sunshine APRN LAB BLOOD ORDERABLES Final Result Performing Organization Address City/State/[facility] Co de Phone Number [facility] [address] [place] [address] * IN CRITICAL CARE, E/M 30-74 MINUTES (02/24/2025 3:29 PM EDT) Narrative Ramandeep Sunshine APRN - 02/24/2025 3:29 PM EDT Ramandeep Sunshine APRN 02/24/2025 3:48 PM Critical Care Performed by: Ramandeep Sunshine APRN Authorized by: Ramandeep Sunshine APRN Critical care provider statement: Critical care time (minutes): 50 Critical care was time spent personally by me on the following activities: Ordering and performing treatments and interventions, ordering and review of laboratory studies, ordering and review of radiographic studies, examination of patient, evaluation of patient's response to treatment and discussions with consultants Comments: The patient is critically ill with: s/p 4vCABG and bAVR, afib on amiodarone drip, requiring frequent assessment of volume status and electrolytes. In addition pt with dec mixed venous requiring further assessment with bedside ultrasound and review, ultimately transfusion of 1 unit RBC today. They require complex decision making. The patient was seen on rounds with critical care physician, Dr. Hein and they are in agreement with the plan of care. Pharmacy, respiratory and nursing services were present on rounds. Ramandeep Sunshine APRN IN CLINIC/BEDSIDE ORDERABL ES Final Result * Potassium (02/24/2025 1:15 PM EDT) Only the most recent of4 resultswithin the time period is included. Potassium, Plasma 3.6 3.6 - 4.9 mmol/L 02/24/2025 1:59 PM EDT [facility] Blood Venous blood specimen / Unknown Venipuncture / Unknown 02/24/2025 1:15 PM EDT 02/24/2025 1:37 PM EDT Ramandeep Sunshine APRN LAB BLOOD ORDERABLES Final Result [facility] [address] [place] [address] * (ABNORMAL) Blood gas panel, mixed venous (02/24/2025 1:14 PM EDT) pH, Mixed Venous 7.46(H) 7.32 - 7.43 LAB HEMATOLOGY METHOD 02/24/2025 1:24 PM EDT [facility] pCO2, Mixed Venous 38(L) 40 - 55 mmHg LAB HEMATOLOGY METHOD 02/24/2025 1:24 PM EDT [facility] pO2, Mixed Venous 26 25 - 40 mmHg LAB HEMATOLOGY METHOD 02/24/2025 1:24 PM EDT [facility] SO2, Measured, Mixed Venous 41(L) 65 - 80 % LAB HEMATOLOGY METHOD 02/24/2025 1:24 PM EDT [facility] Base Excess, Mixed Venous 2.9 -2.0 - 3.0 mmol/L LAB HEMATOLOGY METHOD 02/24/2025 1:24 PM EDT [facility] Bicarbonate, Calculated, Mixed Venous 27(H) 22 - 26 mmol/L LAB HEMATOLOGY METHOD 02/24/2025 1:24 PM EDT [facility] Hematocrit, Whole Blood 25.7(L) 40.0 - 51.0 % LAB HEMATOLOGY METHOD 02/24/2025 1:24 PM EDT [facility] Sodium, Whole Blood 142 136 - 145 mmol/L LAB HEMATOLOGY METHOD 02/24/2025 1:24 PM EDT [facility] Potassium, Whole Blood 3.5(L) 3.6 - 4.9 mmol/L LAB HEMATOLOGY METHOD 02/24/2025 1:24 PM EDT [facility] Chloride, Whole Blood 105 97 - 107 mmol/L LAB HEMATOLOGY METHOD 02/24/2025 1:24 PM EDT [facility] Ionized Calcium, Whole Blood 4.5(L) 4.6 - 5.1 mg/dL LAB HEMATOLOGY METHOD 02/24/2025 1:24 PM EDT [facility] Glucose, Whole Blood 102(H) 74 - 99 mg/dL LAB HEMATOLOGY METHOD 02/24/2025 1:24 PM EDT [facility] Blood Mixed venous blood specimen / Unknown Venipuncture / Unknown 02/24/2025 1:14 PM EDT 02/24/2025 1:21 PM EDT us Lata Sahu MD LAB BLOOD ORDERABLES Final Resu lt [facility] [address] [place] [address] * CT Abdomen Pelvis w IV Contrast (02/23/2025 2:44 PM EDT) Anatomical Region Laterality Modality Abdomen, Pelvis Computed Tomogra phy Impressions 02/23/2025 3:35 PM EDT Dilated segments of the nondependent small and large bowel without transition point to suggest high-grade bowel obstruction. This likely represents ileus. No specific evidence for active infection or abscess within the abdomen or pelvis. Nonobstructing bilateral nephrolithiasis. CRITICAL RESULT: No. COMMUNICATION: Per this written report. Drafted by Arden Hall MD on 02/23/2025 3:20 PM Final report signed by Arden Hall MD on 02/23/2025 3:35 PM Narrative 02/23/2025 3:35 PM EDT CLINICAL INDICATION: s/p CABG, Ileus eval TECHNIQUE: Multiple axial CT images were obtained from lung bases through pubic symphysis following administration of IV contrast, Omnipaque 300, 100 mL. Delayed images of abdomen and kidneys were also obtained. Reformatted images in the coronal and sagittal planes were generated from the axial data set to facilitate diagnostic accuracy. Total DLP (Dose-Length Product): 2521.77 mGy.cm. Please note: The reported value represents the total of one or more individual components during the CT acquisition on this date and at this time, and as such, the same value may appear in more than one CT report depending on the interpreting/reporting physicians. COMPARISON: No prior studies available for comparison at the time of dictation. FINDINGS: Lower Chest: See separate dictation from concurrently performed chest CT for full thoracic evaluation. Mild motion degradation. Solid Abdominal Organs: Normal size spleen. No suspicious splenic mass. No morphologic evidence of cirrhosis. No suspicious focal hepatic finding. No gallbladder wall thickening. No bile or pancreatic duct dilatation. No suspicious pancreatic finding. No adrenal nodule. Multiple bilateral nonobstructing renal calculi. No ureteral calculus or secondary signs of urinary tract obstruction. Bilateral renal cysts and too small to characterize low-attenuation renal lesions. GI Tract/Mesentery/Peritoneum: No definite pneumoperitoneum. There is pneumomediastinum in the imaged lung bases. Normal caliber stomach and duodenum. There are a few mildly dilated gas-filled segments of small bowel in the nondependent portions of the abdominal cavity. No transition point to suggest high-grade bowel obstruction. The appendix is normal. There are some colonic distention/mild dilatation most marked in the right and transverse colonic segments. No discrete transition point to suggest high-grade bowel obstruction. No pneumatosis. No mesenteric inflammation or fluid collection. Pelvic Viscera: A urinary catheter is in place, and the bladder is decompressed. No suspicious pelvic mass. Lymph Nodes/Vasculature: Atherosclerotic abdominal aorta measuring up to 2.7 cm in its infrarenal segment. Patent portal and splenic veins. The inferior vena cava is patent. No enlarged lymph nodes. Free Fluid: No ascites. Musculoskeletal and Body Wall: Incompletely imaged thoracic support hardware. No aggressive body wall findings. Mild stranding and trace gas within the imaged right inguinal region may reflect sequelae of prior intervention. Procedure Note Arden Hall MD - 02/23/2025 CLINICAL INDICATION: s/p CABG, Ileus eval TECHNIQUE: Multiple axial CT images were obtained from lung bases through pubicsymphysis following administration of IV contrast, Omnipaque 300, 100 mL.Delayed images of abdomen and kidneys were also obtained. Reformattedimages in the coronal and sagittal planes were generated from the axialdata set to facilitate diagnostic accuracy. Total DLP (Dose-Length Product): 2521.77 mGy.cm. Please note: The reportedvalue represents the total of one or more individual components during theCT acquisition on this date and at this time, and as such, the same valuemay appear in more than one CT report depending on theinterpreting/reporting physicians. COMPARISON: No prior studies available for comparison at the time of dictation. FINDINGS: Lower Chest: See separate dictation from concurrently performed chest CTfor full thoracic evaluation. Mild motion degradation. Solid Abdominal Organs: Normal size spleen. No suspicious splenic mass. Nomorphologic evidence of cirrhosis. No suspicious focal hepatic finding. Nogallbladder wall thickening. No bile or pancreatic duct dilatation. Nosuspicious pancreatic finding. No adrenal nodule. Multiple bilateralnonobstructing renal calculi. No ureteral calculus or secondary signs ofurinary tract obstruction. Bilateral renal cysts and too small tocharacterize low-attenuation renal lesions. GI Tract/Mesentery/Peritoneum: No definite pneumoperitoneum. There ispneumomediastinum in the imaged lung bases. Normal caliber stomach andduodenum. There are a few mildly dilated gas-filled segments of smallbowel in the nondependent portions of the abdominal cavity. No transitionpoint to suggest high-grade bowel obstruction. The appendix is normal.There are some colonic distention/mild dilatation most marked in the rightand transverse colonic segments. No discrete transition point to suggesthigh-grade bowel obstruction. No pneumatosis. No mesenteric inflammationor fluid collection. Pelvic Viscera: A urinary catheter is in place, and the bladder isdecompressed. No suspicious pelvic mass. Lymph Nodes/Vasculature: Atherosclerotic abdominal aorta measuring up to2.7 cm in its infrarenal segment. Patent portal and splenic veins. Theinferior vena cava is patent. No enlarged lymph nodes. Free Fluid: No ascites. Musculoskeletal and Body Wall: Incompletely imaged thoracic supporthardware. No aggressive body wall findings. Mild stranding and trace gaswithin the imaged right inguinal region may reflect sequelae of priorintervention. IMPRESSION: Dilated segments of the nondependent small and large bowel withouttransition point to suggest high-grade bowel obstruction. This likelyrepresents ileus. No specific evidence for active infection or abscess within the abdomen orpelvis. Nonobstructing bilateral nephrolithiasis. CRITICAL RESULT: No. COMMUNICATION: Per this written report. Drafted by Arden Hall MD on 02/23/2025 3:20 PM Final report signed by Arden Hall MD on 02/23/2025 3:35 PM Madelin Bruce [facility] IM CT PROCEDURES Final Result * CT Chest w IV Contrast (02/23/2025 2:44 PM EDT) Anatomical Region Laterality Modality Chest Computed Tomogra phy Impressions 02/23/2025 3:03 PM EDT Surgical changes of coronary artery bypass grafting and aortic valve repair are within expected post surgical norm. No specific findings to suggest mediastinitis. No significant mediastinal hemorrhage. Small right and trace left pleural effusions. Mild airspace disease which could reflect residual edema or mild infection/aspiration. CRITICAL RESULT: No. COMMUNICATION: Per this written report Drafted by Arik Ellis MD on 02/23/2025 3:00 PM Final report signed by Arik Ellis MD on 02/23/2025 3:03 PM Narrative 02/23/2025 3:03 PM EDT CLINICAL INDICATION: s/p CABG TECHNIQUE: Multiple CT helical images were obtained from thoracic inlet through upper abdomen with administration of IV contrast. 100 mL of Omnipaque-350 were administered intravenously. Total DLP (Dose-Length Product): 2521.77 mGy.cm. Please note: The reported value represents the total of one or more individual components during the CT acquisition on this date and at this time, and as such, the same value may appear in more than one CT report depending on the interpreting/reporting physicians. COMPARISON: None. FINDINGS: Mediastinum and Pleura: Median sternotomy. Mediastinal approach chest tubes in place including one terminating at the left lung apex. There is anterior pneumomediastinum and mild inflammatory stranding without significant loculated fluid collection. Epicardial wires noted. Aortic valve repair. Coronary artery bypass grafting. Reactive mediastinal and hilar lymph nodes. Right internal jugular approach under artery catheter tip at the main pulmonary artery. Trace left and small right layering pleural effusions. Lungs: Moderate atelectasis. Mild emphysema. There is some mild superimposed groundglass airspace disease, greatest in the left lung. Upper Abdomen: Please see separate report for findings of the concurrently performed abdominal CT. Musculoskeletal: Lower cervical anterior disc fusion. Procedure Note Arik Ellis MD - 02/23/2025 CLINICAL INDICATION: s/p CABG TECHNIQUE: Multiple CT helical images were obtained from thoracic inlet through upperabdomen with administration of IV contrast. 100 mL of Omnipaque-350 wereadministered intravenously. Total DLP (Dose-Length Product): 2521.77 mGy.cm. Please note: The reportedvalue represents the total of one or more individual components during theCT acquisition on this date and at this time, and as such, the same valuemay appear in more than one CT report depending on theinterpreting/reporting physicians. COMPARISON: None. FINDINGS: Mediastinum and Pleura: Median sternotomy. Mediastinal approach chesttubes in place including one terminating at the left lung apex. There isanterior pneumomediastinum and mild inflammatory stranding withoutsignificant loculated fluid collection. Epicardial wires noted. Aorticvalve repair. Coronary artery bypass grafting. Reactive mediastinal andhilar lymph nodes. Right internal jugular approach under artery cathetertip at the main pulmonary artery. Trace left and small right layeringpleural effusions. Lungs: Moderate atelectasis. Mild emphysema. There is some mildsuperimposed groundglass airspace disease, greatest in the left lung. Upper Abdomen: Please see separate report for findings of the concurrentlyperformed abdominal CT. Musculoskeletal: Lower cervical anterior disc fusion. IMPRESSION: Surgical changes of coronary artery bypass grafting and aortic valverepair are within expected post surgical norm. No specific findings tosuggest mediastinitis. No significant mediastinal hemorrhage. Small right and trace left pleural effusions. Mild airspace disease which could reflect residual edema or mildinfection/aspiration. CRITICAL RESULT: No. COMMUNICATION: Per this written report Drafted by Arik Ellis MD on 02/23/2025 3:00 PM Final report signed by Arik Ellis MD on 02/23/2025 3:03 PM Madelin Bruce [employer] IM CT PROCEDURES Final Result * CT Angio Neck (02/23/2025 2:44 PM EDT) Anatomical Region Laterality Modality Carotid Artery Computed Tomogra phy Impressions 02/24/2025 12:24 AM EDT Neck CTA: 1. Severe stenosis at the origins of the vertebral arteries bilaterally due to atherosclerosis. 2. Atherosclerosis at the carotid bulbs bilaterally without hemodynamically significant stenosis. Head CTA: 1. 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 2. 2 mm aneurysm or infundibulum at the M1 segment of the left MCA. CRITICAL RESULT: None. COMMUNICATION: Per this written report. Drafted by Juan Angel MD on 02/23/2025 11:55 PM Final report signed by Juan Angel MD on 02/24/2025 12:24 AM Narrative 02/24/2025 12:24 AM EDT CLINICAL INDICATION: Neuro deficit, acute, stroke suspected TECHNIQUE: Head CTA: Axial images were obtained through the head during contrast bolus injection and multiplanar MIP images were created. Neck CTA: Axial images were obtained through the neck during bolus contrast injection and multiplanar reformatted and MIP images were created. 100 mL of Omnipaque 350 were administered intravenously. Total DLP (Dose-Length Product): 2521.77 mGy.cm (accession [id number]), 2521.77 mGy.cm (accession [id number]). Please note: The reported value represents the total of one or more individual components during the CT acquisition on this date and at this time, and as such, the same value may appear in more than one CT report depending on the interpreting/reporting physicians. COMPARISON: Carotid duplex ultrasound February 17, 2025 FINDINGS: NECK CTA: Diagnostic Quality: Mildly motion degraded. Aorta and Great Vessel Origins: Conventional branching pattern. No significant stenosis of the origins of the great arteries. Right Cervical Carotid System: Moderate calcified and noncalcified atherosclerotic plaque at the common carotid bifurcation. 30% stenosis at the carotid bulb by NASCET criteria. Left Cervical Carotid System: Moderate calcified and noncalcified atherosclerotic plaque at the common carotid bifurcation. 30% stenosis at the carotid bulb by NASCET criteria. Vertebral arteries: Severe stenosis at the origins of the bilateral vertebral arteries due to atherosclerosis. The vertebral arteries are otherwise patent without any additional areas of significant stenosis. Other Findings: Multilevel degenerative changes in the cervical spine. Status post ACDF at C7-T1 with anterior plate and screws. Postoperative changes partially visualized from recent median sternotomy. Partially visualized right internal jugular central venous catheter. HEAD CTA: Diagnostic Quality: Adequate Vertebrobasilar System: The intradural vertebral arteries are patent without significant stenosis. The basilar artery and its major branches are within normal limits. There is no aneurysm. Carotid Arteries: Atherosclerosis: Moderate calcified atherosclerotic plaque. Right ICA: Mild stenosis at the carotid siphon. Left ICA: Mild stenosis at the carotid siphon. Other Findings: No aneurysm of either internal carotid artery. [place] and Major Peripheral Branches: Focal severe stenosis at the P2 segment of the right IDENTIFICATION TECHNICIAN. origin right IDENTIFICATION TECHNICIAN. 2 mm outpouching from the M1 segment of the left MCA (image 242 series 5) may represent an infundibulum or small aneurysm. The ACAs and MCAs are patent bilaterally without significant stenosis. Other Findings: None. Procedure Note Juan Angel MD - 02/24/2025 CLINICAL INDICATION: Neuro deficit, acute, stroke suspected TECHNIQUE: Head CTA: Axial images were obtained through the head during contrastbolus injection and multiplanar MIP images were created. Neck CTA: Axial images were obtained through the neck during boluscontrast injection and multiplanar reformatted and MIP images werecreated. 100 mL of Omnipaque 350 were administered intravenously. Total DLP (Dose-Length Product): 2521.77 mGy.cm (accession [id number]),2521.77 mGy.cm (accession [id number]). Please note: The reported valuerepresents the total of one or more individual components during the CTacquisition on this date and at this time, and as such, the same value mayappear in more than one CT report depending on the interpreting/reportingphysicians. COMPARISON: Carotid duplex ultrasound February 17, 2025 FINDINGS: NECK CTA: Diagnostic Quality: Mildly motion degraded. Aorta and Great Vessel Origins: Conventional branching pattern. Nosignificant stenosis of the origins of the great arteries. Right Cervical Carotid System: Moderate calcified and noncalcifiedatherosclerotic plaque at the common carotid bifurcation. 30% stenosis atthe carotid bulb by NASCET criteria. Left Cervical Carotid System: Moderate calcified and noncalcifiedatherosclerotic plaque at the common carotid bifurcation. 30% stenosis atthe carotid bulb by NASCET criteria. Vertebral arteries: Severe stenosis at the origins of the bilateralvertebral arteries due to atherosclerosis. The vertebral arteries areotherwise patent without any additional areas of significant stenosis. Other Findings: Multilevel degenerative changes in the cervical spine.Status post ACDF at C7-T1 with anterior plate and screws. Postoperativechanges partially visualized from recent median sternotomy. Partiallyvisualized right internal jugular central venous catheter. HEAD CTA: Diagnostic Quality: Adequate Vertebrobasilar System: The intradural vertebral arteries are patentwithout significant stenosis. The basilar artery and its major branchesare within normal limits. There is no aneurysm. Carotid Arteries: Atherosclerosis: Moderate calcified atherosclerotic plaque. Right ICA: Mild stenosis at the carotid siphon. Left ICA: Mild stenosis at the carotid siphon. Other Findings: No aneurysm of either internal carotid artery. [place] and Major Peripheral Branches: Focal severe stenosis atthe P2 segment of the right IDENTIFICATION TECHNICIAN. origin right IDENTIFICATION TECHNICIAN. 2 mm outpouchingfrom the M1 segment of the left MCA (image 242 series 5) may represent aninfundibulum or small aneurysm. The ACAs and MCAs are patent bilaterallywithout significant stenosis. Other Findings: None. IMPRESSION: Neck CTA: 1.Severe stenosis at the origins of the vertebral arteries bilaterallydue to atherosclerosis. 2.Atherosclerosis at the carotid bulbs bilaterally withouthemodynamically significant stenosis. Head CTA: 1.Focal severe stenosis at the P2 segment of the right IDENTIFICATION TECHNICIAN. 2.2 mm aneurysm or infundibulum at the M1 segment of the left MCA. CRITICAL RESULT: None. COMMUNICATION: Per this written report. Drafted by Juan Angel MD on 02/23/2025 11:55 PM Final report signed by Juan Angel MD on 02/24/2025 12:24 AM Madelin Bruce [facility] [employer]ED[place] Final Result * CT Angio Head (02/23/2025 2:44 PM EDT) Anatomical Region Laterality Modality [place] Computed Tomogr aphy Impressions 02/24/2025 12:24 AM EDT Neck CTA: 1. Severe stenosis at the origins of the vertebral arteries bilaterally due to atherosclerosis. 2. Atherosclerosis at the carotid bulbs bilaterally without hemodynamically significant stenosis. Head CTA: 1. 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 2. 2 mm aneurysm or infundibulum at the M1 segment of the left MCA. CRITICAL RESULT: None. COMMUNICATION: Per this written report. Drafted by Juan Angel MD on 02/23/2025 11:55 PM Final report signed by Juan Angel MD on 02/24/2025 12:24 AM Narrative 02/24/2025 12:24 AM EDT CLINICAL INDICATION: Neuro deficit, acute, stroke suspected TECHNIQUE: Head CTA: Axial images were obtained through the head during contrast bolus injection and multiplanar MIP images were created. Neck CTA: Axial images were obtained through the neck during bolus contrast injection and multiplanar reformatted and MIP images were created. 100 mL of Omnipaque 350 were administered intravenously. Total DLP (Dose-Length Product): 2521.77 mGy.cm (accession [id number]), 2521.77 mGy.cm (accession [id number]). Please note: The reported value represents the total of one or more individual components during the CT acquisition on this date and at this time, and as such, the same value may appear in more than one CT report depending on the interpreting/reporting physicians. COMPARISON: Carotid duplex ultrasound February 17, 2025 FINDINGS: NECK CTA: Diagnostic Quality: Mildly motion degraded. Aorta and Great Vessel Origins: Conventional branching pattern. No significant stenosis of the origins of the great arteries. Right Cervical Carotid System: Moderate calcified and noncalcified atherosclerotic plaque at the common carotid bifurcation. 30% stenosis at the carotid bulb by NASCET criteria. Left Cervical Carotid System: Moderate calcified and noncalcified atherosclerotic plaque at the common carotid bifurcation. 30% stenosis at the carotid bulb by NASCET criteria. Vertebral arteries: Severe stenosis at the origins of the bilateral vertebral arteries due to atherosclerosis. The vertebral arteries are otherwise patent without any additional areas of significant stenosis. Other Findings: Multilevel degenerative changes in the cervical spine. Status post ACDF at C7-T1 with anterior plate and screws. Postoperative changes partially visualized from recent median sternotomy. Partially visualized right internal jugular central venous catheter. HEAD CTA: Diagnostic Quality: Adequate Vertebrobasilar System: The intradural vertebral arteries are patent without significant stenosis. The basilar artery and its major branches are within normal limits. There is no aneurysm. Carotid Arteries: Atherosclerosis: Moderate calcified atherosclerotic plaque. Right ICA: Mild stenosis at the carotid siphon. Left ICA: Mild stenosis at the carotid siphon. Other Findings: No aneurysm of either internal carotid artery. [place] and Major Peripheral Branches: Focal severe stenosis at the P2 segment of the right IDENTIFICATION TECHNICIAN. origin right IDENTIFICATION TECHNICIAN. 2 mm outpouching from the M1 segment of the left MCA (image 242 series 5) may represent an infundibulum or small aneurysm. The ACAs and MCAs are patent bilaterally without significant stenosis. Other Findings: None. Procedure Note Juan Angel MD - 02/24/2025 CLINICAL INDICATION: Neuro deficit, acute, stroke suspected TECHNIQUE: Head CTA: Axial images were obtained through the head during contrastbolus injection and multiplanar MIP images were created. Neck CTA: Axial images were obtained through the neck during boluscontrast injection and multiplanar reformatted and MIP images werecreated. 100 mL of Omnipaque 350 were administered intravenously. Total DLP (Dose-Length Product): 2521.77 mGy.cm (accession [id number]),2521.77 mGy.cm (accession [id number]). Please note: The reported valuerepresents the total of one or more individual components during the CTacquisition on this date and at this time, and as such, the same value mayappear in more than one CT report depending on the interpreting/reportingphysicians. COMPARISON: Carotid duplex ultrasound February 17, 2025 FINDINGS: NECK CTA: Diagnostic Quality: Mildly motion degraded. Aorta and Great Vessel Origins: Conventional branching pattern. Nosignificant stenosis of the origins of the great arteries. Right Cervical Carotid System: Moderate calcified and noncalcifiedatherosclerotic plaque at the common carotid bifurcation. 30% stenosis atthe carotid bulb by NASCET criteria. Left Cervical Carotid System: Moderate calcified and noncalcifiedatherosclerotic plaque at the common carotid bifurcation. 30% stenosis atthe carotid bulb by NASCET criteria. Vertebral arteries: Severe stenosis at the origins of the bilateralvertebral arteries due to atherosclerosis. The vertebral arteries areotherwise patent without any additional areas of significant stenosis. Other Findings: Multilevel degenerative changes in the cervical spine.Status post ACDF at C7-T1 with anterior plate and screws. Postoperativechanges partially visualized from recent median sternotomy. Partiallyvisualized right internal jugular central venous catheter. HEAD CTA: Diagnostic Quality: Adequate Vertebrobasilar System: The intradural vertebral arteries are patentwithout significant stenosis. The basilar artery and its major branchesare within normal limits. There is no aneurysm. Carotid Arteries: Atherosclerosis: Moderate calcified atherosclerotic plaque. Right ICA: Mild stenosis at the carotid siphon. Left ICA: Mild stenosis at the carotid siphon. Other Findings: No aneurysm of either internal carotid artery. [place] and Major Peripheral Branches: Focal severe stenosis atthe P2 segment of the right IDENTIFICATION TECHNICIAN. origin right IDENTIFICATION TECHNICIAN. 2 mm outpouchingfrom the M1 segment of the left MCA (image 242 series 5) may represent aninfundibulum or small aneurysm. The ACAs and MCAs are patent bilaterallywithout significant stenosis. Other Findings: None. IMPRESSION: Neck CTA: 1.Severe stenosis at the origins of the vertebral arteries bilaterallydue to atherosclerosis. 2.Atherosclerosis at the carotid bulbs bilaterally withouthemodynamically significant stenosis. Head CTA: 1.Focal severe stenosis at the P2 segment of the right IDENTIFICATION TECHNICIAN. 2.2 mm aneurysm or infundibulum at the M1 segment of the left MCA. CRITICAL RESULT: None. COMMUNICATION: Per this written report. Drafted by Juan Angel MD on 02/23/2025 11:55 PM Final report signed by Juan Angel MD on 02/24/2025 12:24 AM Madelin Bruce APRN IMG CT PROCEDURES Final Result * IN CRITICAL CARE, E/M 30-74 MINUTES (02/23/2025 1:58 PM EDT) Narrative Madelin Bruce APRN - 02/23/2025 1:58 PM EDT Madelin Bruce APRN 02/23/2025 2:06 PM Critical Care Performed by: Madelin Bruce APRN Authorized by: Madelin Bruce APRN Critical care provider statement: Critical care time (minutes): 68 Critical care was time spent personally by me on the following activities: Development of treatment plan with patient or surrogate, discussions with consultants, discussions with primary provider, evaluation of patient's response to treatment, examination of patient, ordering and performing treatments and interventions, ordering and review of laboratory studies and ordering and review of radiographic studies Comments: The patient is critically ill with: CAD s/p CABG, AR s/p AVR, acute hypoxic respiratory failure, electrolyte abnormality, anemia, leukocytosis, thrombocytopenia, COPD, GERD, HTN, HLD, altered mental status, and post-op pain. They require complex decision making. The patient was seen on rounds with critical care physician, Dr. Frederic Hein and they are in agreement with the plan of care. Pharmacy, respiratory and nursing services were present on rounds. Madelin Bruce APRN IN CLINIC/BEDSIDE ORDERA BLES Final Result * Heparin Dependent Ab W Reflex to PEA (SO) (02/23/2025 10:40 AM EDT) PF4 -IgG 0.083 OD 02/25/2025 9:35 AM EDT [facility] ([facility]) PF4 High Dose -IgG 0.070 OD 2024 9:[address] [facility] ([facility]) PF4 Result -IgG Negative Negative 9:[address] [facility] ([facility]) Comment: Results obtained with this patient's serum were negative and argue against the diagnosis of Heparin-Induced Thrombocytopenia (HIT). Optical Density (O.D.) values greater than or equal to 0.400 that inhibit by at least 49% in the presence of high dose (100U/ml) heparin are considered positive in this assay. In rare cases,clinical HIT may be due to IgA or IgM heparin-dependent antibodies. If the IgG test is negative and the clinical suspicion for HIT is high, testing for IgA and IgM antibodies can be arranged by contacting the [facility] at , ext. [phone]. This test was developed and its performance characteristics determined by [employer]. It has not been cleared or approved by the [place] Food and Drug Administration. This test is used for clinical purposes. It should not be regarded as investigational or for research. This laboratory is certified under the Clinical Laboratory Improvement Amendments (CLIA) as qualified to perform high complexity clinical laboratory testing. Blood Venous blood specimen / Unknown Venipuncture / Unknown 02/23/2025 10:40 AM EDT 02/23/2025 11:26 AM EDT ENRRIQUE Guillermo APRN, JESSE LAB REF LAB BLOOD AND FLUID ORD Final Result [facility] ([facility]) [address] [place] [address] * (ABNORMAL) Thyroid Stimulating Hormone, Plasma (02/23/2025 10:40 AM EDT) Thyroid Stimulating Hormone, Plasma 6.73(H) 0.40 - 4.20 uIU/mL 02/23/2025 11:36 AM EDT [facility] Blood Venous blood specimen / Unknown Venipuncture / Unknown 02/23/2025 10:40 AM EDT 02/23/2025 10:58 AM EDT ENRRIQUE Guillermo APRN, JESSE LAB BLOOD ORDERABL ES Final Result [facility] [address] [place] [address] * T4, free (02/23/2025 10:40 AM EDT) Only the most recent of2 resultswithin the time period is included. Free T4, Plasma 0.9 0.8 - 1.7 ng/dL 02/23/2025 11:36 AM EDT [facility] Blood Venous blood specimen / Unknown Venipuncture / Unknown 02/23/2025 10:40 AM EDT 02/23/2025 10:58 AM EDT Joy Fleming APRN, ENRRIQUE, DNP LAB BLOOD ORDERABL ES Final Result Performing Organization Address [facility] Co de Phone Number [facility] [address] [place] [address] * Folate (02/23/2025 10:40 AM EDT) Folate, Serum 5.4 >4.6 ng/mL 02/23/2025 11:53 AM EDT [facility] Blood Venous blood specimen / Unknown Venipuncture / Unknown 02/23/2025 10:40 AM EDT 02/23/2025 10:58 AM EDT Joy Fleming APRN, ENRRIQUE, DNP LAB BLOOD ORDERABL ES Final Result Performing Organization Address [facility] de Phone Number [facility] [address] [place] [address] * Cortisol (02/23/2025 10:40 AM EDT) Cortisol 54.00 Before 10am: 3.7 - 19.4. After 5pm: 2.9 - 17.3 ug/dL 02/23/2025 7:43 PM EDT [facility] Comment:Testing performed on [employer], standardized against [facility] Reference Standard concentration values assigned by LC-MS/MS and verified by BCR 192 and BCR 193 certified reference materials. Blood Venous blood specimen / Unknown Venipuncture / Unknown 02/23/2025 10:40 AM EDT 02/23/2025 10:58 AM EDT Joy Fleming APRN, ENRRIQUE, DNP LAB REF LAB BLOOD AND FLUID ORD Final Result Performing Organization Address City/[facility] Co de Phone Number [facility] [address] [place] [address] * Ammonia, Plasma (02/23/2025 10:40 AM EDT) Ammonia 19 11 - 51 umol/L 02/23/2025 11:20 AM EDT [facility] Blood Venous blood specimen / Unknown Venipuncture / Unknown 02/23/2025 10:40 AM EDT 02/23/2025 10:55 AM EDT Madelin Bruce AREA DEVELOPMENT CONSULTANT LAB BLOOD ORDERABLES Fin al Result [facility] [address] [place] [address] * (ABNORMAL) POCT arterial blood gas gem (02/22/2025 3:21 PM EDT) Only the most recent of20 resultswithin the time period is included. pH, Arterial 7.36 7.31 - 7.42 02/23/2025 1:52 PM EDT [facility] pCO2, Arterial 45 32 - 45 mm Hg 02/23/2025 1:52 PM EDT [facility] pO2, Arterial 128 >80 mm Hg 02/23/2025 1:52 PM EDT [facility] SO2, Arterial 98 94 - 98 % 02/23/2025 1:52 PM EDT [facility] Base Excess, Arterial -0.4 -2 - 3 mmol/L 02/23/2025 1:52 PM EDT [facility] HCO3, Arterial 25.4 22 - 26 mmol/L 02/23/2025 1:52 PM EDT [facility] Total Hemoglobin, Arterial, Whole Blood 14.1 13.7 - 17.5 g/dL 02/23/2025 1:52 PM EDT [facility] Hematocrit, Arterial 42.0 40 - 51.0 % 02/23/2025 1:52 PM EDT [facility] Sodium, Arterial 140 136 - 145 mmol/L 02/23/2025 1:52 PM EDT [facility] Potassium, Arterial 3.8 3.6 - 4.9 mmol/L 02/23/2025 1:52 PM EDT [facility] Chloride, Whole Blood 106 97 - 107 mmol/L 02/23/2025 1:52 PM EDT [facility] Glucose, Arterial 204(H) 74 - 99 mg/dL 02/23/2025 1:52 PM EDT [facility] Ionized Calcium, Arterial 4.5(L) 4.6 - 5.1 mg/dL 02/23/2025 1:52 PM EDT [facility] Lactate, Arterial 1.0 0.5 - 1.6 mmol/L 02/23/2025 1:52 PM EDT [facility] Body Temperature 37.0 Celsius 02/23/2025 1:52 PM EDT [facility] pH, Temp Corrected, Arterial 7.36 7.31 - 7.42 02/23/2025 1:52 PM EDT [facility] pCO2, Temp Corrected, Arterial 45 32 - 45 mm Hg 02/23/2025 1:52 PM EDT [facility] pO2, Temp Corrected, Arterial 128 >80 mm Hg 02/23/2025 1:52 PM EDT [facility] H[employer]head [employer] ID Clarice Cui 02/23/2025 1:52 PM EDT [facility] Blood, Arterial Whole blood specimen / Unknown 02/22/2025 3:21 PM EDT 02/23/2025 1:52 PM EDT us Lata Sahu MD LAB POINT OF CARE TE ST DOCKED DEVICE UNSOLICITED RESULTS Final Result Performing Organization Address City/[facility]/ZIP Co de Phone Number [facility] [address] [place] [address] * Light Green Top (02/22/2025 2:30 PM EDT) Only the most recent of4 resultswithin the time period is included. Extra Hold for add-ons 02/22/2025 5:01 PM EDT [facility] Comment:Auto resulted. Blood Venous blood specimen / Unknown Venipuncture / Unknown 02/22/2025 2:30 PM EDT 02/22/2025 2:30 PM EDT us Lata Sahu MD LAB BLOOD ORDERABLES Final Resu lt [facility] [address] [place] [address] * (ABNORMAL) Ionized calcium, whole blood (02/22/2025 2:21 PM EDT) Only the most recent of2 resultswithin the time period is included. Ionized Calcium, Whole Blood 4.5(L) 4.6 - 5.1 mg/dL LAB HEMATOLOGY METHOD 02/22/2025 2:32 PM EDT [facility] Blood Venous blood specimen / Unknown Venipuncture / Unknown 02/22/2025 2:21 PM EDT 02/22/2025 2:29 PM EDT us Joy Fleming AREA DEVELOPMENT CONSULTANT, NEURODIAGNOSTIC TECH, DNP LAB BLOOD ORDERABL ES Final Result Performing Organization Address [facility] de Phone Number [facility] [address] [place] [address] * Multi Drug Resistance Test (02/22/2025 11:00 AM EDT) Only the most recent of2 resultswithin the time period is included. Pathologist [facility] Culture No growth at day 1 02/23/2025 9:05 AM EDT [facility] Swab (Nares and Leslie Rectal) 02/22/2025 11:00 AM EDT 02/22/2025 11:49 AM EDT us Sohail Alex MD LAB MICROBIOLOGY - GEN ERAL ORDERABLES Final Result Performing Organization Address [facility] Co de Phone Number [facility] [address] [place] [address] * (ABNORMAL) Hemoglobin (02/22/2025 8:25 AM EDT) Only the most recent of3 resultswithin the time period is included. Pathologist [facility] HGB 9.5(L) 13.7 - 17.5 g/dL LAB HEMATOLOGY METHOD 02/22/2025 8:54 AM EDT [facility] Blood Venous blood specimen / Unknown Venipuncture / Unknown 02/22/2025 8:25 AM EDT 02/22/2025 8:46 AM EDT us Lata Sahu MD LAB BLOOD ORDERABLES Final Resu lt Performing Organization Address City/[facility]/ZIP Co de Phone Number [facility] [address] [place] [address] * (ABNORMAL) Hematocrit (02/22/2025 8:25 AM EDT) Only the most recent of3 resultswithin the time period is included. HCT 28.0(L) 40.0 - 51.0 % LAB HEMATOLOGY METHOD 02/22/2025 8:54 AM EDT [facility] Blood Venous blood specimen / Unknown Venipuncture / Unknown 02/22/2025 8:25 AM EDT 02/22/2025 8:46 AM EDT us Lata Sahu MD LAB BLOOD ORDERABLES Final Resu lt [facility] [address] [place] [address] * IN CRITICAL CARE, ADDL 30 MIN (02/22/2025 8:05 AM EDT) Narrative Madelin Bruce APRN - 02/22/2025 8:05 AM EDT Madelin Bruce APRN 02/22/2025 11:26 AM Critical Care Performed by: Madelin Bruce APRN Authorized by: Madelin Bruce APRN Critical care provider statement: Critical care time (minutes): 58 Critical care was time spent personally by me on the following activities: Development of treatment plan with patient or surrogate, discussions with consultants, discussions with primary provider, evaluation of patient's response to treatment, examination of patient, obtaining history from patient or surrogate, ordering and performing treatments and interventions, ordering and review of laboratory studies, ordering and review of radiographic studies and ventilator management I assumed subsequent critical care for this patient from a provider in my division, on the same day: yes Comments: The patient is critically ill with: CAD s/p CABG and AR s/p AVR, on inotropic support, on supplement oxygen post extubation from ventilator, COPD, tobacco abuse disorder, obesity, cardiac volume overload, anemia, electrolyte abnormality, HTN, HLD, GERD, and post-op pain. They require complex decision making. The patient was seen on rounds with critical care physician, Dr. Frederic Hein and they are in agreement with the plan of care. Pharmacy, respiratory and nursing services were present on rounds. us Madelin Bruce APRN IN CLINIC/BEDSIDE ORDERA BLES Final Result * Triglycerides (02/22/2025 3:42 AM EDT) Triglycerides, Plasma 111 <150 mg/dL 02/22/2025 4:26 AM EDT [facility] Comment: Triglyceride Reference Range (age >17 years): Desirable: <150 mg/dL Borderline high: 150 to 199 mg/dL High: 200 to 499 mg/dL Very high: >499 mg/dL Increased risk of pancreatitis: >1000 mg/dL Fasting greater than or equal to 12 hours? Yes 02/22/2025 4:26 AM EDT [facility] Blood Arterial blood specimen / Unknown Arterial Puncture / Unknown 02/22/2025 3:42 AM EDT 02/22/2025 3:55 AM EDT us Ltaa Sahu MD LAB BLOOD ORDERABLES Final Resu lt [facility] [address] [place] [address] * IN CRITICAL CARE, E/M 30-74 MINUTES (02/21/2025 11:38 PM EDT) Narrative Jorge L Bellamy MD - 02/21/2025 11:38 PM EDT Jorge L Bellamy MD 02/22/2025 6:33 AM Critical Care Performed by: Jorge L Bellamy MD Authorized by: Jorge L Bellamy MD Critical care provider statement: Critical care time (minutes): 39 Critical care time was exclusive of: Separately billable procedures and treating other patients and teaching time Critical care was time spent personally by me on the following activities: Development of treatment plan with patient or surrogate, ordering and performing treatments and interventions, discussions with consultants, ordering and review of laboratory studies, discussions with primary provider, ordering and review of radiographic studies, evaluation of patient's response to treatment, examination of patient and ventilator management Critical care statement: I saw and evaluated the patient with the resident/ fellow. I discussed the case with the resident/ fellow and agree with the findings and plan as documented. us Jorge L Bellamy MD IN CLINIC/BEDSIDE ORDERABLES Fi nal Result * (ABNORMAL) Hepatitis B Surface Antibody, Quantitative (02/21/2025 10:36 PM EDT) Pathologist [facility] Hepatitis B Surface Antibody, Quantitative 20.73(H) NonReacti ve: <8, Grayzone: 8 - <12, Reactive: >= 12 mIU/mL 02/22/2025 1:33 AM EDT [facility] Comment: Reactive. Individual is considered immune to HBV infection. Blood Venous blood specimen / Unknown Venipuncture / Unknown 02/21/2025 10:36 PM EDT 02/21/2025 10:49 PM EDT Jolene Montes De Oca MD LAB BLOOD ORDERABLES Final Result Performing Organization Address [facility]/ZIP Co de Phone Number [facility] [address] [place] [address] * Haley auris Surveillance by PCR (02/21/2025 10:36 PM EDT) [facility] Haley auris PCR Result Not Detected Not Detected 02/23/2025 6:33 AM EDT [facility] Swab (Axilla and Groin) Non-blood Collection / Unknown 02/21/2025 10:36 PM EDT 02/22/2025 12:36 AM EDT Narrative [facility] - 02/23/2025 6:33 AM EDT This PCR assay was developed and its performance characteristics determined by [employer] [facility] as appropriate for clinical purposes. This assay has not been cleared or approved by the FDA, but is performed in a CLIA regulated laboratory that is qualified to perform high-complexity testing. us Lata Sahu MD LAB MICROBIOLOGY - GENERAL MAREK YANG Final Result Performing Organization Address City/[facility]/ZIP Co de Phone Number [facility] [address] [place] [address] * Hepatitis C antibody (02/21/2025 10:36 PM EDT) Pathologist [facility] Hepatitis C Antibody Negative Negative 02/21/2025 11:38 PM EDT [facility] Blood Venous blood specimen / Unknown Venipuncture / Unknown 02/21/2025 10:36 PM EDT 02/21/2025 10:49 PM EDT us Jolene Montes De Oca MD LAB BLOOD ORDERABLES Final Result [facility] [address] [place] [address] * Hepatitis B Core Antibody IgM (02/21/2025 10:36 PM EDT) Hepatitis B Core Antibody IgM Negative Negative 02/22/2025 1:33 AM EDT [facility] Blood Venous blood specimen / Unknown Venipuncture / Unknown 02/21/2025 10:36 PM EDT 02/21/2025 10:49 PM EDT us Jolene Montes De Oca MD LAB BLOOD ORDERABLES Final Result Performing Organization Address City/[facility]/ZIP Co de Phone Number [facility] [address] [place] [address] * Hepatitis B Core Total Antibody IgG,IgM (02/21/2025 10:36 PM EDT) Hepatitis B Core Total Antibody IgG,IgM Negative Negative 02/22/2025 1:33 AM EDT [facility] Blood Venous blood specimen / Unknown Venipuncture / Unknown 02/21/2025 10:36 PM EDT 02/21/2025 10:49 PM EDT us Jolene Montes De Oca MD LAB [place]LO[place] [address] * Hepatitis B Surface Antigen (02/21/2025 10:36 PM EDT) Hepatitis B Surf Antigen Negative Negative 02/22/2025 1:33 AM EDT [facility] Blood Venous blood specimen / Unknown Venipuncture / Unknown 02/21/2025 10:36 PM EDT 02/21/2025 10:49 PM EDT us Jolene Montes De Oca MD LAB BLOOD ORDERABLES Final Result Performing Organization Address City/[facility] Co de Phone Number [facility] [address] [place] [address] * APTT (02/21/2025 10:36 PM EDT) Only the most recent of3 resultswithin the time period is included. aPTT 32 25 - 35 sec LAB COAGULATION METHOD 02/21/2025 11:21 PM EDT [facility] Blood Venous blood specimen / Unknown Venipuncture / Unknown 02/21/2025 10:36 PM EDT 02/21/2025 10:49 PM EDT us Lata Sahu MD LAB BLOOD ORDERABLES Final Resu lt Performing Organization Address City/[facility] Co de Phone Number [facility] [address] [place] [address] * Transfuse fresh frozen plasma (02/21/2025 9:41 PM EDT) Only the most recent of7 resultswithin the time period is included. us Jolene Montes De Oca MD BLOOD TRANSFUSION ORDERABLE S Final Result * (ABNORMAL) TEG Global Hemostasis with Heparinase (02/21/2025 9:02 PM EDT) Only the most recent of2 resultswithin the time period is included. R 9.4(H) 4.6 - 9.1 min 02/21/2025 9:41 PM EDT [facility] R, Heparinase 9.2(H) 4.3 - 8.3 min 02/21/2025 9:41 PM EDT [facility] K 1.4 0.8 - 2.1 min 02/21/2025 9:41 PM EDT [facility] Angle 70.5 63.0 - 78.0 degrees 02/21/2025 9:41 PM EDT [facility] MA 63.5 52.0 - 69.0 mm 02/21/2025 9:41 PM EDT [facility] MA, Rapid 63.5 52.0 - 70.0 mm 02/21/2025 9:41 PM EDT [facility] MA, Fibrinogen 21.4 15.0 - 32.0 mm 02/21/2025 9:41 PM EDT [facility] FLEV 390.5 278.0 - 581.0 mg/dl 02/21/2025 9:41 PM EDT [facility] Blood Arterial blood specimen / Unknown 02/21/2025 9:02 PM EDT 02/21/2025 9:08 PM EDT Comment:Pre-op diagnosis: Sinus bradycardia [R00.1] Concentric left ventricular hypertrophy [I51.7] Edentulous [K08.109] NSTEMI (non-ST elevated myocardial infarction) ([facility]/HCC) [I21.4] Cervical radiculopathy [M54.12] Tobacco abuse disorder [Z72.0] Hyperlipidemia, unspecified hyperlipidemia type [E78.5] Hypocalcemia [E83.51] Aortic valve insufficiency, etiology of cardiac valve disease unspecified [I35.1] Situational depression [F43.21] Obesity (BMI 30-39.9) [E66.9] Aortic valve stenosis, etiology of cardiac valve disease unspecified [I35.0] Chronic obstructive pulmonary disease, unspecified COPD type ([facility]/HCC) [J44.9] CAD, multiple vessel [I25.10] Anemia, unspecified type [D64.9] Heart failure with mid-range ejection fraction (HFmEF) ([facility]/HCC) [I50.22] Gastroesophageal reflux disease, unspecified whether esophagitis present [K21.9] Benign prostatic hyperplasia, unspecified whether lower urinary tract symptoms present [N40.0] Incomplete right bundle branch block [I45.10] Primary hypertension [I10] us Jolene Montes De Oca MD LAB BLOOD ORDERABLES Final Result [facility] [address] [place] [address] * Fibrinogen, Quantitative (Clottable) (02/21/2025 9:02 PM EDT) Only the most recent of3 resultswithin the time period is included. Fibrinogen, Quantitative (Clottable) 284 208 - 459 mg/dL LAB COAGULATION METHOD 02/21/2025 9:44 PM EDT [facility] Blood Arterial blood specimen / Unknown 02/21/2025 9:02 PM EDT 02/21/2025 9:28 PM EDT Comment:Pre-op diagnosis: Sinus bradycardia [R00.1] Concentric left ventricular hypertrophy [I51.7] Edentulous [K08.109] NSTEMI (non-ST elevated myocardial infarction) (CMS/HCC) [I21.4] Cervical radiculopathy [M54.12] Tobacco abuse disorder [Z72.0] Hyperlipidemia, unspecified hyperlipidemia type [E78.5] Hypocalcemia [E83.51] Aortic valve insufficiency, etiology of cardiac valve disease unspecified [I35.1] Situational depression [F43.21] Obesity (BMI 30-39.9) [E66.9] Aortic valve stenosis, etiology of cardiac valve disease unspecified [I35.0] Chronic obstructive pulmonary disease, unspecified COPD type (CMS/HCC) [J44.9] CAD, multiple vessel [I25.10] Anemia, unspecified type [D64.9] Heart failure with mid-range ejection fraction (HFmEF) (CMS/HCC) [I50.22] Gastroesophageal reflux disease, unspecified whether esophagitis present [K21.9] Benign prostatic hyperplasia, unspecified whether lower urinary tract symptoms present [N40.0] Incomplete right bundle branch block [I45.10] Primary hypertension [I10] us Jolene Montes De Oca MD LAB BLOOD ORDERABLES Final Result [facility] [address] [place] [address] * Platelet Count, Blood (02/21/2025 9:02 PM EDT) Only the most recent of2 resultswithin the time period is included. Platelet Count 161 155 - 369 10*3/uL LAB HEMATOLOGY METHOD 02/21/2025 9:32 PM EDT [facility] Blood Arterial blood specimen / Unknown 02/21/2025 9:02 PM EDT 02/21/2025 9:27 PM EDT Comment:Pre-op diagnosis: Sinus bradycardia [R00.1] Concentric left ventricular hypertrophy [I51.7] Edentulous [K08.109] NSTEMI (non-ST elevated myocardial infarction) ([facility]) [I21.4] Cervical radiculopathy [M54.12] Tobacco abuse disorder [Z72.0] Hyperlipidemia, unspecified hyperlipidemia type [E78.5] Hypocalcemia [E83.51] Aortic valve insufficiency, etiology of cardiac valve disease unspecified [I35.1] Situational depression [F43.21] Obesity (BMI 30-39.9) [E66.9] Aortic valve stenosis, etiology of cardiac valve disease unspecified [I35.0] Chronic obstructive pulmonary disease, unspecified COPD type ([facility]) [J44.9] CAD, multiple vessel [I25.10] Anemia, unspecified type [D64.9] Heart failure with mid-range ejection fraction (HFmEF) ([facility]) [I50.22] Gastroesophageal reflux disease, unspecified whether esophagitis present [K21.9] Benign prostatic hyperplasia, unspecified whether lower urinary tract symptoms present [N40.0] Incomplete right bundle branch block [I45.10] Primary hypertension [I10] us Jolene Montes De Oca MD LAB BLOOD ORDERABLES Final Result [facility] [address] [place] [address] * Prepare Fresh Frozen Plasma: 4 Units (02/21/2025 8:48 PM EDT) Only the most recent of2 resultswithin the time period is included. Product Code [id number] CH BLOO D BANK Dispense Status Transfused BLOOD BANK Blood Expiration Date [id number] BLOOD BANK Unit Number [id number] CH B LOOD BANK Product Blood Type 6200 BLOOD BANK Blood Type A+ CH BLOOD BANK Product Code [id number] CH BLOO D BANK Dispense Status Transfused BLOOD BANK Blood Expiration Date [id number] BLOOD BANK Unit Number [id number] CH B LOOD BANK Product Blood Type 6200 BLOOD BANK Blood Type A+ CH BLOOD BANK Product Code [id number] BLOO D BANK Dispense Status Returned CH BLOOD BANK Blood Expiration Date [id number] BLOOD BANK Unit Number [id number] CH B LOOD BANK Product Blood Type 6200 BLOOD BANK Blood Type A+ CH BLOOD BANK Product Code [id number] BLOO D BANK Dispense Status Transfused BLOOD BANK Blood Expiration Date [id number] BLOOD BANK Unit Number [id number] CH B LOOD BANK Product Blood Type 6200 BLOOD BANK Blood Type A+ CH BLOOD BANK Blood Venous blood specimen / Unknown Jolene Montes De Oca MD BLOOD BANK PRODUCT ORDERABL ES Final Result Performing Organization Address [facility] de Phone Number BLOOD BANK [address] * Transfuse platelets (02/21/2025 8:45 PM EDT) Only the most recent of3 resultswithin the time period is included. Jolene Montes De Oca MD BLOOD TRANSFUSION ORDERABLE S Final Result * Prepare Leukocyte Reduced Platelets (02/21/2025 8:37 PM EDT) Only the most recent of2 resultswithin the time period is included. Product Code [id number] BLOO D BANK Dispense Status Transfused BLOOD BANK Blood Expiration Date [id number] BLOOD BANK Unit Number [id number] CH B LOOD BANK Product Blood Type 6200 BLOOD BANK Blood Type A+ BLOOD BANK Provider Not In System BLOOD BANK PRODUCT ORD ERABLES Final Result Performing Organization Address [facility] Co de Phone Number BLOOD BANK [address] * Transfuse cryoprecipitate (02/21/2025 8:21 PM EDT) Only the most recent of2 resultswithin the time period is included. us Jolene Montes De Oca MD BLOOD TRANSFUSION ORDERABLE S Final Result * (ABNORMAL) QPLUS (02/21/2025 8:03 PM EDT) Pathologist [facility] Clot Time 162 104 - 166 Seconds 02/21/2025 8:18 PM EDT [facility] Clot Time Ratio 1.0 0.8 - 1.2 8:18 PM EDT [facility] Comment:The Clot Time Ratio (CTR) is a calculated parameter. CTR values of 0.8 1.2 are demonstrated to be typical of n ormal patient samples. Samples with CTR values > 1.4 are indicative of prolongation of the intrinsic pathway clotting time, likely due to the influence of unfractionated heparin. POCT Clot Stiffness 12.0(L) 13.0 - 33.2 hectoPascals 02/21/2025 8:18 PM EDT [facility] Platelet Contribution to Clot Stiffnes 10.0(L) 11.9 - 29.8 hectoPascals 02/21/2025 8:18 PM EDT [facility] Fibrinogen Contribution to Clot Stiffness 2.0 1.0 - 3.7 hectoPascals 02/21/2025 8:18 PM EDT [facility] Heparinase Clot Time 155(H) 103 - 153 Seconds 02/21/2025 8:18 PM EDT [facility] Hogshead Builder ID Jolene Donald 02/21/2025 8:18 PM EDT [facility] Device ID [id number] 02/21/2025 8:18 PM EDT [facility] Whole Blood 02/21/2025 8:03 PM EDT 02/21/2025 8:18 PM EDT us Lata Sahu MD LAB POINT OF CARE TE ST DOCKED DEVICE UNSOLICITED RESULTS Final Result [facility] [address] [place] [address] * POCT ACT (02/21/2025 7:53 PM EDT) Only the most recent of19 resultswithin the time period is included. ACT+ (HIGH RANGE) 131 68 - 600 Seconds 03/17/2025 10:03 PM EDT [facility] Hogshead Builder ID Dimas Vera 03/17/2025 10:03 PM EDT [facility] ACT Device ID [id number] 03/17/2025 10:03 PM EDT [facility] Comment 03/17/2025 10:03 PM EDT [facility] Comment: ACT performed by staff at point of care. Results are reported immediately to the physician or primary caregiver. The activated clotting time is performed on patients with diverse clinical characteristics and treatment histories. Therefore, expected values are variable and results must be interpreted in the context of each individual patient. Blood Venous blood specimen / Unknown 02/21/2025 7:53 PM EDT 03/17/2025 10:03 PM EDT us Lata Sahu MD LAB POINT OF CARE TE ST DOCKED DEVICE UNSOLICITED RESULTS Final Result Performing Organization Address [facility] de Phone Number [facility] [address] LAB [address] [place] [address] * Prepare Cryoprecipitate: 2 Pools (02/21/2025 5:05 PM EDT) Product Code [id number] CH BLOO D BANK Dispense Status Transfused BLOOD BANK Blood Expiration Date [id number] BLOOD BANK Unit Number [id number] CH B LOOD BANK Product Blood Type 6200 BLOOD BANK Blood Type A+ CH BLOOD BANK Product Code [id number] CH BLOO D BANK Dispense Status Transfused CH BLOOD BANK Blood Expiration Date [id number] BLOOD BANK Unit Number [id number] CH B LOOD BANK Product Blood Type 6200 BLOOD BANK Blood Type A+ CH BLOOD BANK Blood Venous blood specimen / Unknown Jolene Montes De Oca MD BLOOD BANK PRODUCT ORDERABL ES Final Result Performing Organization Address [facility]/ZIP Co de Phone Number BLOOD BANK [address] [place] [address] * Surgical Pathology Exam (02/21/2025 3:12 PM EDT) Case Report Surgical Pathology Case: [id number] Authorizing Provider: Lata Sahu MD Collected: 02/21/2025 1512 Ordering Location: [facility] OPERATING ROOM Received: 02/22/2025 0743 Pathologist: Ann Horan MD Specimen: Heart, Aortic valve leaflets 02/23/2025 12:52 PM EDT [facility] Final Diagnosis A. AORTIC VALVE LEAFLETS, EXCISION: - FIBROSIS WITH MYXOID CHANGE AND DEGENERATIVE CALCIFICATION. 02/23/2025 12:52 PM EDT [facility] at 1252 EDT Clinical Information Sinus bradycardia [R00.1] Concentric left ventricular hypertrophy [I51.7] Edentulous [K08.109] NSTEMI (non-ST elevated myocardial infarction) (CMS/HCC) [I21.4] Cervical radiculopathy [M54.12] Tobacco abuse disorder [Z72.0] Hyperlipidemia, unspecified hyperlipidemia type [E78.5] Hypocalcemia [E83.51] Aortic valve insufficiency, etiology of cardiac valve disease unspecified [I35.1] Situational depression [F43.21] Obesity (BMI 30-39.9) [E66.9] Aortic valve stenosis, etiology of cardiac valve disease unspecified [I35.0] Chronic obstructive pulmonary disease, unspecified COPD type (CMS/HCC) [J44.9] CAD, multiple vessel [I25.10] Anemia, unspecified type [D64.9] Heart failure with mid-range ejection fraction (HFmEF) (CMS/HCC) [I50.22] Gastroesophageal reflux disease, unspecified whether esophagitis present [K21.9] Benign prostatic hyperplasia, unspecified whether lower urinary tract symptoms present [N40.0] Incomplete right bundle branch block [I45.10] Primary hypertension [I10] 02/23/2025 12:52 PM EDT [facility] Gross Description A. AORTIC VALVE LEAFLETS Received fresh and placed in formalin labeled aortic valve leaflets , is one aggregate of white-castro rubbery valve leaflets measuring 3.7 x 2.7 x 1.5 cm. The specimen is serially sectioned and reveals a white-castro hard material, grossly consistent with calcification, measuring up to 1.0 cm. Editing Intern sections are submitted in cassette A1. Daisy Marino Cold Time: 16h 31m 02/23/2025 12:52 PM EDT [facility] Tissue Heart structure / Unknown 02/21/2025 3:12 PM EDT 02/22/2025 7:43 AM EDT Comment:Pre-op diagnosis: Sinus bradycardia [R00.1] Concentric left ventricular hypertrophy [I51.7] Edentulous [K08.109] NSTEMI (non-ST elevated myocardial infarction) ([facility]/HCC) [I21.4] Cervical radiculopathy [M54.12] Tobacco abuse disorder [Z72.0] Hyperlipidemia, unspecified hyperlipidemia type [E78.5] Hypocalcemia [E83.51] Aortic valve insufficiency, etiology of cardiac valve disease unspecified [I35.1] Situational depression [F43.21] Obesity (BMI 30-39.9) [E66.9] Aortic valve stenosis, etiology of cardiac valve disease unspecified [I35.0] Chronic obstructive pulmonary disease, unspecified COPD type ([facility]) [J44.9] CAD, multiple vessel [I25.10] Anemia, unspecified type [D64.9] Heart failure with mid-range ejection fraction (HFmEF) ([facility]) [I50.22] Gastroesophageal reflux disease, unspecified whether esophagitis present [K21.9] Benign prostatic hyperplasia, unspecified whether lower urinary tract symptoms present [N40.0] Incomplete right bundle branch block [I45.10] Primary hypertension [I10] us Lata Sahu MD LAB PATHOLOGY ORDERABLES Final Result [facility] [address] [place] [address] * [facility] (02/21/2025 12:21 PM EDT) Only the most recent of3 resultswithin the time period is included. Extra Hold for add-ons 02/21/2025 3:01 PM EDT [facility] Comment:Auto resulted. Blood Venous blood specimen / Unknown 02/21/2025 12:21 PM EDT 02/21/2025 12:49 PM EDT us Lata Sahu MD LAB BLOOD ORDERABLES Final Resu lt [facility] [address] [place] [address] * Hepatitis B Virus (HBV) Quantitative PCR (02/21/2025 12:21 PM EDT) Hepatitis B Virus (HBV) Quantitative Interpretation Not Detected Not Detected 02/24/2025 7:27 PM EDT [facility] Blood Arterial blood specimen / Unknown 02/21/2025 12:21 PM EDT 02/21/2025 2:43 PM EDT Comment:Pre-op diagnosis: Sinus bradycardia [R00.1] Concentric left ventricular hypertrophy [I51.7] Edentulous [K08.109] NSTEMI (non-ST elevated myocardial infarction) (CMS/HCC) [I21.4] Cervical radiculopathy [M54.12] Tobacco abuse disorder [Z72.0] Hyperlipidemia, unspecified hyperlipidemia type [E78.5] Hypocalcemia [E83.51] Aortic valve insufficiency, etiology of cardiac valve disease unspecified [I35.1] Situational depression [F43.21] Obesity (BMI 30-39.9) [E66.9] Aortic valve stenosis, etiology of cardiac valve disease unspecified [I35.0] Chronic obstructive pulmonary disease, unspecified COPD type (CMS/HCC) [J44.9] CAD, multiple vessel [I25.10] Anemia, unspecified type [D64.9] Heart failure with mid-range ejection fraction (HFmEF) (CMS/HCC) [I50.22] Gastroesophageal reflux disease, unspecified whether esophagitis present [K21.9] Benign prostatic hyperplasia, unspecified whether lower urinary tract symptoms present [N40.0] Incomplete right bundle branch block [I45.10] Primary hypertension [I10] Narrative [facility] - 02/24/2025 7:27 PM EDT The [employer] M2000 HBV Assay is a Real Time in vitro nucleic acid amplification of Hepatitis B Virus (HBV) DNA in human serum in HBV infected individuals. It is intended to quantify HBV in patients who are infected with this virus. The dynamic range for this test is 1.0 to 9.0 log10 and/or 10 to 1,000,000,000 IU/mL. The limit of detection (LOD) for this assay is 10 IU/mL. This assay is FDA approved for clinical use. Jolene Montes De Oca MD LAB BLOOD ORDERABLES Final Result [facility] [address] [place] [address] * Hepatitis C Virus (HCV) Quantitative PCR (02/21/2025 12:21 PM EDT) Hepatitis C Virus (HCV) Quantitative Interpretation Not Detected Not Detected. 02/22/2025 1:31 PM EDT [facility] Blood Arterial blood specimen / Unknown 02/21/2025 12:21 PM EDT 02/21/2025 2:43 PM EDT Comment:Pre-op diagnosis: Sinus bradycardia [R00.1] Concentric left ventricular hypertrophy [I51.7] Edentulous [K08.109] NSTEMI (non-ST elevated myocardial infarction) (CMS/HCC) [I21.4] Cervical radiculopathy [M54.12] Tobacco abuse disorder [Z72.0] Hyperlipidemia, unspecified hyperlipidemia type [E78.5] Hypocalcemia [E83.51] Aortic valve insufficiency, etiology of cardiac valve disease unspecified [I35.1] Situational depression [F43.21] Obesity (BMI 30-39.9) [E66.9] Aortic valve stenosis, etiology of cardiac valve disease unspecified [I35.0] Chronic obstructive pulmonary disease, unspecified COPD type (CMS/HCC) [J44.9] CAD, multiple vessel [I25.10] Anemia, unspecified type [D64.9] Heart failure with mid-range ejection fraction (HFmEF) (CMS/HCC) [I50.22] Gastroesophageal reflux disease, unspecified whether esophagitis present [K21.9] Benign prostatic hyperplasia, unspecified whether lower urinary tract symptoms present [N40.0] Incomplete right bundle branch block [I45.10] Primary hypertension [I10] Narrative [facility] - 02/22/2025 1:31 PM EDT The [employer] M2000 HCV test is a Real Time in vitro nucleic acid amplification test for the quantitation of Hepatitis C Viral (HCV) RNA in human serum in HCV-infected individuals. It is intended for use as an aid in the management of HCV-infected individuals undergoing anti-viral therapy. The dynamic range for this test is log10 = 1.08 to 8.00 and/or 12 to 100,000,000 IU/mL. The limit of detection (LOD) for this assay is 12 IU/mL and the limit of quantitation (LOQ) is 12 IU/mL. This assay is FDA approved for clinical use. Jolene Montes De Oca MD LAB BLOOD ORDERABLES Final Result [facility] [address] [place] [address] * Hepatitis C Virus (HCV) Genotype (02/21/2025 12:21 PM EDT) Hepatitis C Virus (HCV) Genotype Result Test not indicated due to undetectable HCV RNA viral load for genotyping Not Detected 02/24/2025 4:49 AM EDT [facility] Blood Arterial blood specimen / Unknown 02/21/2025 12:21 PM EDT 02/21/2025 3:07 PM EDT Comment:Pre-op diagnosis: Sinus bradycardia [R00.1] Concentric left ventricular hypertrophy [I51.7] Edentulous [K08.109] NSTEMI (non-ST elevated myocardial infarction) (CMS/HCC) [I21.4] Cervical radiculopathy [M54.12] Tobacco abuse disorder [Z72.0] Hyperlipidemia, unspecified hyperlipidemia type [E78.5] Hypocalcemia [E83.51] Aortic valve insufficiency, etiology of cardiac valve disease unspecified [I35.1] Situational depression [F43.21] Obesity (BMI 30-39.9) [E66.9] Aortic valve stenosis, etiology of cardiac valve disease unspecified [I35.0] Chronic obstructive pulmonary disease, unspecified COPD type (CMS/HCC) [J44.9] CAD, multiple vessel [I25.10] Anemia, unspecified type [D64.9] Heart failure with mid-range ejection fraction (HFmEF) ([facility]) [I50.22] Gastroesophageal reflux disease, unspecified whether esophagitis present [K21.9] Benign prostatic hyperplasia, unspecified whether lower urinary tract symptoms present [N40.0] Incomplete right bundle branch block [I45.10] Primary hypertension [I10] Narrative [facility] - 02/24/2025 4:49 AM EDT This test is performed by the [employer] instrument for Real Time PCR HCV Genotype II. This test is FDA approved for use with serum specimens. This test is used for clinical purposes. It should not be regarded as investigational or for research. Reference interval includes HCV Genotypes: 1, 1A, 1B, 2, 3, 4, and 5. The [facility] is certified under the Clinical Laboratory Improvement Amendments of 1988 (CLIA-88) as qualified to perform high complexity clinical laboratory testing. Jolene Montes De Oca MD LAB BLOOD ORDERABLES Final Result [facility] [address] [place] [address] * Human Immunodeficiency Virus (HIV-1) Quantitative PCR (02/21/2025 12:21 PM EDT) Human Immunodeficiency Virus (HIV-1) Quant Interpretation Not Detected Not Detected 02/23/2025 11:08 AM EDT [facility] Blood Arterial blood specimen / Unknown 02/21/2025 12:21 PM EDT 02/21/2025 2:44 PM EDT Comment:Pre-op diagnosis: Sinus bradycardia [R00.1] Concentric left ventricular hypertrophy [I51.7] Edentulous [K08.109] NSTEMI (non-ST elevated myocardial infarction) ([facility]/HCC) [I21.4] Cervical radiculopathy [M54.12] Tobacco abuse disorder [Z72.0] Hyperlipidemia, unspecified hyperlipidemia type [E78.5] Hypocalcemia [E83.51] Aortic valve insufficiency, etiology of cardiac valve disease unspecified [I35.1] Situational depression [F43.21] Obesity (BMI 30-39.9) [E66.9] Aortic valve stenosis, etiology of cardiac valve disease unspecified [I35.0] Chronic obstructive pulmonary disease, unspecified COPD type (CMS/HCC) [J44.9] CAD, multiple vessel [I25.10] Anemia, unspecified type [D64.9] Heart failure with mid-range ejection fraction (HFmEF) ([facility]) [I50.22] Gastroesophageal reflux disease, unspecified whether esophagitis present [K21.9] Benign prostatic hyperplasia, unspecified whether lower urinary tract symptoms present [N40.0] Incomplete right bundle branch block [I45.10] Primary hypertension [I10] Narrative [facility] - 02/23/2025 11:08 AM EDT The [employer] M2000 HIV-1 test is a Real Time in vitro nucleic acid amplification test for the quantitation of Human Immunodeficiency Virus (HIV-1) RNA in human plasma in HIV-infected individuals. It is intended to quantify HIV-1 in patients who are infected with the virus. The dynamic range for this test is log10 = 1.60 to 7.00 and/or 40 to 10,000,000 copies/mL. The limit of detection (LOD) for this assay is 40 copies/mL and the limit of quantitaion (LOQ) is 40 copies/mL. This assay is FDA approved for clinical use. This assay should not be used to screen patients receiving gene therapy with HIV-1 based lentiviral vectors as false positives may be seen. Jolene Montes De Oca MD LAB BLOOD ORDERABLES Final Result [facility] [address] [place] [address] * PB ANESTHESIA NON-TIMED PROCEDURE PLACEHOLDER (02/21/2025 11:29 AM EDT) BSA 2.26 m2 CAR DO NOT SEND Anatomical Region Laterality Modality Other Narrative 02/21/2025 11:29 AM EDT Jolene Montes De Oca MD 02/21/2025 10:46 PM Procedure Performed: TAYLOR General Procedure Information Diagnostic Indications for TAYLOR: assessment of surgical repair, hemodynamic monitoring, other indication Other indication: CABG, AVR Physician Requesting Echo: Lata Sahu MD Location performed: OR Modalities: 3D only, 2D only, color flow mapping, continuous wave Dopper and pulse wave doppler Intubated Bite block placed Heart visualized Probe Insertion: Easy Probe Type: Multiplane Preanesthesia Checklist: Patient identified, IV checked, site marked, risks and benefits discussed, surgical consent, monitors and equipment checked, pre-op evaluation and timeout performed. Echocardiographic and Doppler Measurements Ventricles Right Ventricle: Cavity size normal. Thrombus not present. Global function normal. Left Ventricle: Cavity size normal. Thrombus not present. Global Function normal. Ventricular Regional Function: Wall Motion Comments: No wall motion abnormalities Valves Aortic Valve: Stenosis mild. Regurgitation +3. Leaflets calcified. Leaflet motions restricted. Mitral Valve: Regurgitation +1. Leaflets normal. Tricuspid Valve: Regurgitation +1. Leaflets normal. Leaflet motions normal. Aorta Ascending Aorta: Size normal. Dissection not present. Plaque thickness less than 3 mm. Mobile plaque not present. Aortic Arch: Size normal. Dissection not present. Plaque thickness greater than 3 mm. Mobile plaque not present. Descending Aorta: Size normal. Dissection not present. Plaque thickness greater than 3 mm. Mobile plaque not present. Atria Right Atrium: Size normal. Spontaneous echo contrast not present. Thrombus not present. Tumor not present. Device present. Left Atrium: Size normal. Spontaneous echo contrast not present. Thrombus not present. Tumor not present. Device not present. Left atrial appendage normal. Septa Atrial Septum: Intra-atrial septal morphology normal. Diastolic Function Measurements: Diastolic Dysfunction Grade= indeterminate E= ms A= ms E/A Ratio= DT= ms S/D= IVRT= ms Other Findings Pericardium: normal Pleural Effusion: none Pulmonary Arteries: normal Pulmonary Venous Flow: normal Postprocedure Post Cardiac Surgery/Repair: Right ventricular post CPB function is preserved. mildly decreased, EF~ 50% on 0.01 mcg/kg/min of epinephrine. All valve function preserved. Valve Repair or Replaced: Valvular intervention: Aortic valve replaced. Status: Aorta intact after decannulation. Information obtained during TAYLOR exam relayed to the referring surgeon/physician. Anesthesia Information Performed Anesthesiologist Anesthesiologist: Jolene Montes De Oca MD Echocardiogram Comments: S/p Inspiris 29 mm bioprosthetic AVR. Mean gradient of 6 mm Hg. No regional wall motion abnormalities us Jolene Montes De Oca MD ANESTHESIA ORDERABLES Edite d Result - Final * IN AN CENTRAL LINE TRIPLE LUMEN, PB ANESTHESIA NON-TIMED PROCEDURE PLACEHOLDER, ANESTHESIA ULTRASOUND GUIDED, IN INSERT/PLACE FLOW DIRECT CATH (02/21/2025 9:35 AM EDT) Narrative Jolene Montes De Oca MD - 02/21/2025 9:35 AM EDT Jolene Montes De Oca MD 02/21/2025 12:22 PM Central Venous Line: A central venous line was placed in the OR for the following indication(s): CVP monitoring. Sterility preparation included the following: provider hand hygiene performed prior to central venous catheter insertion, all 5 sterile barriers used (gloves, gown, cap, mask, large sterile drape) during central venous catheter insertion, antiseptic used during central venous catheter insertion and skin prep agent completely dried prior to procedure. The patient was placed in Trendelenburg position. Right internal jugular vein was prepped. The site was prepped with Chlorhexidine. A 9 Fr (size), introducer triple lumen was placed. This catheter was an oximetric catheter. During the procedure, the following specific steps were taken: target vein identified, needle advanced into vein and blood aspirated and guidewire advanced into vein. Seldinger technique used Procedure performed using ultrasound guidance Sterile gel and probe cover used in ultrasound-guided central venous catheter insertion. Intravenous verification was obtained by ultrasound, venous blood return and manometry. Post insertion care included: all ports aspirated, all ports flushed easily, guidewire removed intact, Biopatch applied, line sutured in place and dressing applied. During the procedure the patient experienced: patient tolerated procedure well with no complications. PA Catheter Placed A oximetric, 8 (size) Pulmonary Artery Catheter (PAC) was placed through the Introducer CVL in the right internal jugular vein. The PAC placement was confirmed by pressure tracing changes and TAYLOR. The patient experienced the following events during the procedure: patient tolerated procedure well with no complications. Additional notes: ATTENDING ATTESTATION: I was present and supervised the entire procedure Staffing Performed: Resident Anesthesiologist: Jolene Montes De Oca MD Resident: Dl Andrews MD Jolene Montes De Oca MD ANESTHESIA ORDERABLES Final Result * PB ANESTHESIA NON-TIMED PROCEDURE PLACEHOLDER (02/21/2025 9:35 AM EDT) Jolene Kwan MD - 02/21/2025 9:35 AM EDT Jolene Montes De Oca MD 02/21/2025 12:22 PM Arterial Line: An arterial line was placed. Procedure performed using ultrasound guidance in the pre-op for the following indication(s): continuous blood pressure monitoring and blood sampling needed. A 20 gauge (size), 1 and 3/4 inch (length), Arrow (type) catheter was placed into the Right radial artery and secured by suture. Seldinger technique used Additional notes: ATTENDING ATTESTATION: I was present and supervised the entire procedure Staffing Performed: Resident Anesthesiologist: Jolene Montes De Oca MD Resident: Dl Andrews MD us Jolene Montes De Oca MD ANESTHESIA ORDERABLES Final Result * IN AN ELECTIVE ENDOTRACHEAL AIRWAY, PB ANESTHESIA PLACEHOLDER (02/21/2025 9:10 AM EDT) Narrative Jolene Montes De Oca MD - 02/21/2025 9:10 AM EDT Jolene Montes De Oca MD 02/21/2025 12:22 PM Intubation Date/Time: 02/21/2025 9:10 AM Reason: elective Airway not difficult General Information and Staff Patient location during procedure: OR Anesthesiologist: Jolene Montes De Oca MD Resident: Dl Andrews MD Performed: Resident Patient Condition Indications for airway management: anesthesia Patient position: sniffing Final Airway Details Final airway type: endotracheal airway Successful airway: ETT Cuffed: yes Successful intubation technique: direct laryngoscopy Adjuncts used in placement: intubating stylet Endotracheal tube insertion site: oral Blade: Jaylen Blade size: #3 ETT size (mm): 8.5 Cormack-Lehane Classification: grade I - full view of glottis Placement verified by: chest auscultation and capnometry Measured from: lips ETT to lips (cm): 24 Additional Comments Atraumatic. No change to dentition. ATTENDING ATTESTATION: I was present and supervised the entire procedure us Jolene Montes De Oca MD ANESTHESIA ORDERABLES Final Result * Anti Xa Level by Unfractionated Heparin - Heparin Drip Titration (02/21/2025 12:10 AM EDT) Only the most recent of11 resultswithin the time period is included. Anti Xa Level Unfractionated Heparin <0.11 <1.00 IU/mL LAB COAGULATION METHOD 02/21/2025 12:50 AM EDT [facility] Blood Venous blood specimen / Unknown Venipuncture / Unknown 02/21/2025 12:10 AM EDT 02/21/2025 12:27 AM EDT Narrative [facility] - 02/21/2025 12:50 AM EDT Therapeutic Range: UFH Full Dose and ACS/MO protocols*: 0.30 - 0.70 IU/mL UFH Low Dose protocol*: 0.25 - 0.50 IU/mL UFH prophylaxis: Not established us Alexsandra Cooper AREA DEVELOPMENT CONSULTANT, DNP LAB BLOOD ORDERABLES Bianca trujillo Result [facility] [address] [place] [address] * Pulmonary function testing (02/18/2025 8:58 AM EDT) ZBY3ICY 3.08 L 02/18/2025 8:57 AM EDT VYAIRE PFT FVC PRED 4.40 02/18/2025 8:57 AM EDT VYAIRE PFT FVC LLN 3.30 02/18/2025 8:57 AM EDT VYAIRE PFT FVCPREZSCORE -1.98 02/18/2025 8:57 AM EDT VYAIRE PFT FVCPRE%PRED 70 % % 02/18/2025 8:57 AM EDT VYAIRE PFT FVC PREDAUTH [facility]_Paul GLI (2011) 02/18/2025 8:57 AM EDT VYAIRE PFT FVC Z-SCORE -1.98 02/18/2025 8:57 AM EDT VYAIRE PFT FEV1 PRE 2.22 L 02/18/2025 8:57 AM EDT VYAIRE PFT FEV1 PRED 3.35 02/18/2025 8:57 AM EDT VYAIRE PFT FEV1 LLN 2.46 02/18/2025 8:57 AM EDT VYAIRE PFT AAT8EYXOAMQGX -2.06 02/18/2025 8:57 AM EDT VYAIRE PFT FEV1_Pre%Pred 66 % % 02/18/2025 8:57 AM EDT VYAIRE PFT FEV1 PREDAUTH US_Quanjer GLI (2011) 02/18/2025 8:57 AM EDT VYAIRE PFT FEV1 Z-SCORE -2.06 02/18/2025 8:57 AM EDT VYAIRE PFT FEV1/FVC PRE 72.17 % 02/18/2025 8:57 AM EDT VYAIRE PFT WBK1TFEIZBT 76 02/18/2025 8:57 AM EDT VYAIRE PFT BIV6BLYRAT 64 02/18/2025 8:57 AM EDT VYAIRE PFT ZLN3UUBABVEFKVTW -0.58 02/19/20 8:57 AM EDT VYAIRE PFT QOB3JZLLFE%PRED 94 % % 8:57 AM EDT VYAIRE PFT [id number] US_Quanjer GLI (2011) 02/18/2025 8:57 AM EDT VYAIRE PFT CPP0LBQJQZHTA -1 02/18/2025 8:57 AM EDT VYAIRE PFT FSC14-04% PRE 1.49 L/s 02/18/2025 8:57 AM EDT VYAIRE PFT ZDV36-83%_Pred 2.63 02/18/2025 8:57 AM EDT VYAIRE PFT OGQ1696%LLN 1.20 02/18/2025 8:57 AM EDT VYAIRE PFT ESH3172%PREZSCORE -1.24 025 8:57 AM EDT VYAIRE PFT BEC9091%PRE%PRED 57 % % 02/19/20 8:57 AM EDT VYAIRE PFT SCM9496%PREDAUTH US_Quanjer GLI (2011) 02/18/2025 8:57 AM EDT VYAIRE PFT PEF PRE 6.67 L/s 02/18/2025 8:57 AM EDT VYAIRE PFT PEF PRED 8.75 02/18/2025 8:57 AM EDT VYAIRE PFT PEF LLN 6.43 02/18/2025 8:57 AM EDT VYAIRE PFT PEFPREZSCORE -1.48 02/18/2025 8:57 AM EDT VYAIRE PFT PEFPRE%PRED 76 % % 02/18/2025 8:57 AM EDT V[facility]AIRE P[facility] ([facility] 02/18/2025 8:57 AM EDT VYAIRE PFT ODSWJMPPCUDXQVFO7BRM 20.64 ml/(min* mmHg) 02/18/2025 8:57 AM EDT VYAIRE PFT DLCOSINGLEBREATH PRED 26.53 02/18/2025 8:57 AM EDT VYAIRE PFT DLCOSINGLEBREATH LLN 19.65 02/09 8:57 AM EDT VYAIRE PFT DLCOSINGLEBREATH Z-SCORE -1.39 02/18/2025 8:57 AM EDT VYAIRE PFT DLCOSINGLEBREATH % PRED 77.8 % 02/18/2025 8:57 AM EDT VYAIRE PFT [facility]OSINGLEBREATH [facility] 02/18/2025 8:57 AM EDT VYAIRE PFT DLCOSINGLEBREATH Z-SCORE -1.39 02/18/2025 8:57 AM EDT VYAIRE PFT GQWPYJDRERIBHTGOY3MQ E 24.67 ml/(min* mmHg) 02/18/2025 8:57 AM EDT VYAIRE PFT DLCOCSINGLEBREATH PRED 26.53 02/18/2025 8:57 AM EDT VYAIRE PFT DLCOCSINGLEBREATH LLN 19.65 02/18/2025 8:57 AM EDT VYAIRE PFT DLCOCSINGLEBREATH Z-SCORE -0.42 02/18/2025 8:57 AM EDT VYAIRE PFT DLCOCSINGLEBREATH % PRED 93.0 % 02/18/2025 8:57 AM EDT VYAIRE PFT DLCOCSINGLEBREATH PREDAUTH Carlo TLCO GLI (2019) 02/18/2025 8:57 AM EDT VYAIRE PFT PGBZPK2SCU 5.13 ml/(min* mmHg*L) 02/18/2025 8:57 AM EDT VYAIRE PFT DLCOVAPRED 4.11 02/18/2025 8:57 AM EDT VYAIRE PFT DLCOVALLN 3.07 02/18/2025 8:57 AM EDT VYAIRE PFT DLCOVAZSCORE 1.48 02/18/2025 8:57 AM EDT VYAIRE PFT DLCOVA%PRED 124.6 % 02/18/2025 8:57 AM EDT VYAIRE PFT DLCOVAPREDAUTH Rafatoignacio TLCO GLI (2019) 02/18/2025 8:57 AM EDT VYAIRE PFT DLCOVAZSCORE 1.48 02/18/2025 8:57 AM EDT VYAIRE PFT GXOMDMYDS3DNM 6.13 ml/(min* mmHg*L) 02/18/2025 8:57 AM EDT VYAIRE PFT DLCOC SB/VA PRED 4.11 02/19/20 8:57 AM EDT VYAIRE PFT DLCOC SB/VA LLN 3.07 8:57 AM EDT VYAIRE PFT DLCOC SB/VA Z-SCORE 2.84 02/18 8:57 AM EDT VYAIRE PFT DLCOC SB/VA % PRED 149.0 % 2024 8:57 AM EDT VYAIRE PFT DLCOC SB/VA PREDAUTH Carlo TLCO GLI (2019) 02/18/2025 8:57 AM EDT VYAIRE PFT DLCOC SB/VA Z-SCORE 2.84 02/18 8:57 AM EDT VYAIRE PFT KROIZZGOLTPRLB1LLZ 4.03 L 2024 8:57 AM EDT VYAIRE PFT VASINGLEBREATH PRED 6.49 02/18 8:57 AM EDT VYAIRE PFT VASINGLEBREATH LLN 5.23 2024 8:57 AM EDT VYAIRE PFT VASINGLEBREATH Z-SCORE -3.38 02/18/2025 8:57 AM EDT VYAIRE PFT VASINGLEBREATH % PRED 62.1 % 02/18/2025 8:57 AM EDT VYAIRE PFT VASINGLEBREATH [facility] Rafatojelucila TLCO GLI (2019) 02/18/2025 8:57 AM EDT VYAIRE PFT VASINGLEBREATH Z-SCORE -3.38 02/18/2025 8:57 AM EDT VYAIRE PFT JNKCNBNECARDUST1VGK 2.73 L 02/18 8:57 AM EDT VYAIRE PFT IVCSINGLEBREATH PRED 4.40 04 8:57 AM EDT VYAIRE PFT IVCSINGLEBREATH LLN 3.30 02/18 8:57 AM EDT VYAIRE PFT IVCSINGLEBREATH Z-SCORE -2.51 02/18/2025 8:57 AM EDT VYAIRE PFT IVCSINGLEBREATH % PRED 62.0 % 02/18/2025 8:57 AM EDT VYAIRE PFT IVCSINGLEBREATH [facility] Abiola GLI (2011) 02/18/2025 8:57 AM EDT VYAIRE PFT HB PRE 9.90 g(Hb)/dL 02/18/2025 8:57 AM EDT VYAIRE PFT VBA7BOQ 5.33 L 02/18/2025 8:57 AM EDT VYAIRE PFT TLCPRED 7.19 02/18/2025 8:57 AM EDT VYAIRE PFT TLCLLN 5.73 02/18/2025 8:57 AM EDT VYAIRE PFT TLCULN 8.68 02/18/2025 8:57 AM EDT VYAIRE PFT TLCZSCORE -2.10 02/18/2025 8:57 AM EDT VYAIRE PFT TLC%PRED 74.1 % 02/18/2025 8:57 AM EDT [facility] (2019)__ 02/18/2025 8:57 AM EDT VYAIRE PFT VC0PRE 3.08 L 02/18/2025 8:57 AM EDT VYAIRE PFT VCPRED 4.40 02/18/2025 8:57 AM EDT VYAIRE PFT VCLLN 3.30 02/18/2025 8:57 AM EDT VYAIRE PFT VCULN 5.51 02/18/2025 8:57 AM EDT VYAIRE PFT VCZSCORE -1.98 02/18/2025 8:57 AM EDT VYAIRE PFT VC%PRED 69.9 % 02/18/2025 8:57 AM EDT VYAIRE PFT VCPREDAUTH US_Quanjer GLI (2011) 02/18/2025 8:57 AM EDT VYAIRE PFT IC0PRE 2.18 L 02/18/2025 8:57 AM EDT VYAIRE PFT ICPRED 3.46 02/18/2025 8:57 AM EDT VYAIRE PFT ICLLN 2.42 02/18/2025 8:57 AM EDT VYAIRE PFT ICULN 4.46 02/18/2025 8:57 AM EDT VYAIRE PFT IC Z-SCORE -2.01 02/18/2025 8:57 AM EDT VYAIRE PFT IC%PRED 62.9 % 02/18/2025 8:57 AM EDT VYAIRE PFT ICPREDAUTPro[facility] Lung volumes GLI (2019)__ 02/18/2025 8:57 AM EDT VYAIRE PFT DIHOXXWO0ESA 3.15 L 02/18/2025 8:57 AM EDT VYAIRE PFT FRCPLETH PRED 3.79 02/18/2025 8:57 AM EDT VYAIRE PFT FRCPLETH LLN 2.63 02/18/2025 8:57 AM EDT VYAIRE PFT FRCPLETH ULN 5.25 02/18/2025 8:57 AM EDT VYAIRE PFT FRCPLETH Z-SCORE -0.86 02/19/20 8:57 AM EDT VYAIRE PFT FRCPLETH % PRED 83.1 % 8:57 AM EDT VYAIRE PFT FRCPLETH PR[facility] Lung volumes GLI (2019)__ 02/18/2025 8:57 AM EDT VYAIRE PFT EVR2CKV 0.76 L 02/18/2025 8:57 AM EDT VYAIRE PFT ERVPRED 1.27 02/18/2025 8:57 AM EDT VYAIRE PFT ERVLLN 0.43 02/18/2025 8:57 AM EDT VYAIRE PFT ERVULN 2.51 02/18/2025 8:57 AM EDT VYAIRE PFT ERV Z-SCORE -0.90 02/18/2025 8:57 AM EDT VYAIRE PFT ERV%PRED 59.6 % 02/18/2025 8:57 AM EDT VYAIRE PFT ER[facility]PR[facility] Lung volumes GLI (2019)__ 02/18/2025 8:57 AM EDT VYAIRE PFT RV0PRE 2.25 L 02/18/2025 8:57 AM EDT VYAIRE PFT RVPRED 2.43 02/18/2025 8:57 AM EDT VYAIRE PFT RVLLN 1.47 02/18/2025 8:57 AM EDT VYAIRE PFT RVULN 3.57 02/18/2025 8:57 AM EDT VYAIRE PFT RVZSCORE -0.28 02/18/2025 8:57 AM EDT VYAIRE PFT RV%PRED 92.8 % 02/18/2025 8:57 AM EDT VYAIRE PFT RVPREDAUTH [facility] Lung volumes GLI (2019)__ 02/18/2025 8:57 AM EDT VYAIRE PFT RV%UTE2UQA 42.29 % 02/18/2025 8:57 AM EDT VYAIRE PFT RV%TLCPRED 33 02/18/2025 8:57 AM EDT VYAIRE PFT RV%TLCLLN 23 02/18/2025 8:57 AM EDT VYAIRE PFT RV%TLCULN 44 02/18/2025 8:57 AM EDT VYAIRE PFT RV%TLCZSCORE 1.36 02/18/2025 8:57 AM EDT VYAIRE PFT RV%TLC%PRED 127.0 % 02/18/2025 8:57 AM EDT VYAIRE PFT RV%TLCPREDAUTH [facility] Lung volumes GLI (2020)__ 02/18/2025 8:57 AM EDT VYAIRE PFT ACS4QND 3.18 L 02/18/2025 8:57 AM EDT VYAIRE PFT Anatomical Region Laterality Modality PFT 02/18/2025 8:29 AM EDT Narrative 02/21/2025 12:45 PM EDT Pulmonary Function Testing Report Shelly Nelson 64 y.o. underwent pulmonary function testing today at the [facility]. The patient underwent spirometry, lung volumes by body plethysmography, and diffusion capacity testing. All tests were appropriately administered via ATS/ERS criteria. Spirometry: Test quality: A. Test is acceptable and useable for interpretation. Reduced FVC and TLC consistent with mild restriction. Lung Volumes: Test Quality: Appropriate QA standards were met. Reduced TLC consistent with simple restriction. Diffusion Capacity: Test Quality: B. Data should be interpreted with caution. Notably, DLCO may be underestimated due to incomplete inhalation. Diffusion capacity corrected for Hb is normal. Trend: There are no prior studies for comparison. Alexsandra Cooper AREA DEVELOPMENT CONSULTANT, DNP PFT ORDERABLES Final Res ult * Ionized calcium, serum (02/18/2025 12:13 AM EDT) Only the most recent of2 resultswithin the time period is included. Ionized Calcium, Serum 4.9 4.6 - 5.3 mg/dL LAB HEMATOLOGY METHOD 02/18/2025 12:49 AM EDT [facility] Blood Venous blood specimen / Unknown Venipuncture / Unknown 02/18/2025 12:13 AM EDT 02/18/2025 12:28 AM EDT us Alexsandra Estrada Raef AREA DEVELOPMENT CONSULTANT, DNP LAB BLOOD ORDERABLES Bianca trujillo Result [facility] [address] [place] [address] * VAS US Carotid Duplex Bilateral (02/17/2025 11:48 AM EDT) Anatomical Region Laterality Modality Head, Neck, Vascular Ultrasound Impressions 02/18/2025 1:52 PM EDT Right: Mild, heterogenous plaque is demonstrated in the bifurcation, ECA and proximal ICA. Flow is present in the CCA, ICA, and ECA. ICA velocities do not demonstrate evidence of a hemodynamically significant stenosis (less than 50%). Left: Mild, heterogenous plaque is demonstrated in the bifurcation and proximal ICA. Flow is present in the CCA, ICA, and ECA. ICA velocities do not demonstrate evidence of a hemodynamically significant stenosis (less than 50%). Vertebral artery flow is antegrade, bilaterally. Subclavian artery flow is multiphasic, bilaterally. COMMUNICATION: Per this written report. Preliminary report signed by Esperanza Hall RVT on 02/17/2025 3:15 PM By electronically signing this report, I, the attending physician, attest that I have personally reviewed the images/data for the above examination(s) and I agree with the final edited report. Drafted by Esperanza Hall RVT on 02/17/2025 12:05 PM Final report signed by Cortez Worthington MD on 02/18/2025 1:52 PM Narrative 02/18/2025 1:52 PM EDT CLINICAL INDICATION: Surveillance for Carotid Artery Stenosis. TECHNIQUE: Non-invasive, real time duplex exam of the extracranial carotid circulation with Doppler ultrasonic waveform and spectral analysis was performed. COMPARISON: None. FINDINGS: Right: CCA: 64 cm/s ECA: 110 cm/s ICA: 128/22 cm/s ICA/CCA Ratio: 2 Vertebral A: 33 cm/s Subclavian A: 114 cm/s Left: CCA: 66 cm/s ECA: 68 cm/s ICA: 146/25 cm/s ICA/CCA Ratio: 2.2 Vertebral A: 73 cm/s Subclavian A: 186 cm/s Procedure Note Cortez Worthington MD - 02/18/2025 CLINICAL INDICATION: Surveillance for Carotid Artery Stenosis. TECHNIQUE: Non-invasive, real time duplex exam of the extracranial carotidcirculation with Doppler ultrasonic waveform and spectral analysis wasperformed. COMPARISON: None. FINDINGS: Right: CCA: 64 cm/s ECA: 110 cm/s ICA: 128/22 cm/s ICA/CCA Ratio: 2 Vertebral A: 33 cm/s Subclavian A: 114 cm/s Left: CCA: 66 cm/s ECA: 68 cm/s ICA: 146/25 cm/s ICA/CCA Ratio: 2.2 Vertebral A: 73 cm/s Subclavian A: 186 cm/s IMPRESSION: Right: Mild, heterogenous plaque is demonstrated in the bifurcation, ECAand proximal ICA. Flow is present in the CCA, ICA, and ECA. ICAvelocities do not demonstrate evidence of a hemodynamically significantstenosis (less than 50%). Left: Mild, heterogenous plaque is demonstrated in the bifurcation andproximal ICA. Flow is present in the CCA, ICA, and ECA. ICA velocities donot demonstrate evidence of a hemodynamically significant stenosis (lessthan 50%). Vertebral artery flow is antegrade, bilaterally. Subclavian artery flow is multiphasic, bilaterally. COMMUNICATION: Per this written report. Preliminary report signed by Esperanza Hall RVT on 02/17/2025 3:15 PM By electronically signing this report, I, the attending physician, attestthat I have personally reviewed the images/data for the aboveexamination(s) and I agree with the final edited report. Drafted by Esperanza Hall RVT on 02/17/2025 12:05 PM Final report signed by Cortez Worthington MD on 02/18/2025 1:52 PM us Alexsandra Cooper APRN, DNP CV VASCULAR PROCEDURES Fi nal Result * VAS US Venous Duplex Lower Extremity Bilateral (02/17/2025 11:35 AM EDT) Anatomical Region Laterality Modality Lower Extremities Bilateral Ultrasound Impressions 02/18/2025 1:52 PM EDT Right: Normal study. There is no evidence of acute or chronic greater saphenous thrombosis. Greater saphenous dimensions are as described above. Left: Normal study. There is no evidence of acute or chronic greater saphenous thrombosis. Greater saphenous dimensions are as described above. COMMUNICATION: Per this written report. Preliminary report signed by Esperanza Hall RVT on 02/17/2025 12:04 PM By electronically signing this report, I, the attending physician, attest that I have personally reviewed the images/data for the above examination(s) and I agree with the final edited report. Drafted by Esperanza Hall RVT on 02/17/2025 12:01 PM Final report signed by Cortez Worthington MD on 02/18/2025 1:52 PM Narrative 02/18/2025 1:52 PM EDT CLINICAL INDICATION: preop planning for bypass surgery. TECHNIQUE: Non-invasive, real time duplex exam of the lower extremity venous circulation with Doppler ultrasonic waveform and spectral analysis was performed. COMPARISON: None. FINDINGS: Bilateral screening for DVT is negative. Right: The following transverse measurements of the greater saphenous were obtained: At SFJ: 0.59 x 0.83 cm prox thigh: 0.34 x 0.42 cm mid thigh: 0.23 x 0.30 cm distal thigh: 0.26 x 0.37 cm at knee: 0.24 x 0.32 cm prox calf: 0.20 x 0.24 cm mid calf: 0.23 x 0.31 cm distal calf: 0.19 x 0.25 cm Left: The following transverse measurements of the greater saphenous were obtained: At SFJ: 0.60 x 0.56 cm prox thigh: 0.37 x 0.40 cm mid thigh: 0.24 x 0.24 cm distal thigh: 0.18 x 0.27 cm at knee: 0.19 x 0.32 cm prox calf: 0.17 x 0.22 cm mid calf: 0.14 x 0.18 cm distal calf: 0.22 x 0.30 cm Procedure Note Cortez Worthington MD - 02/18/2025 CLINICAL INDICATION: preop planning for bypass surgery. TECHNIQUE: Non-invasive, real time duplex exam of the lower extremity venouscirculation with Doppler ultrasonic waveform and spectral analysis wasperformed. COMPARISON: None. FINDINGS: Bilateral screening for DVT is negative. Right: The following transverse measurements of the greater saphenous wereobtained: At SFJ: 0.59 x 0.83 cm prox thigh: 0.34 x 0.42 cm mid thigh: 0.23 x 0.30 cm distal thigh: 0.26 x 0.37 cm at knee: 0.24 x 0.32 cm prox calf: 0.20 x 0.24 cm mid calf: 0.23 x 0.31 cm distal calf: 0.19 x 0.25 cm Left: The following transverse measurements of the greater saphenous wereobtained: At SFJ: 0.60 x 0.56 cm prox thigh: 0.37 x 0.40 cm mid thigh: 0.24 x 0.24 cm distal thigh: 0.18 x 0.27 cm at knee: 0.19 x 0.32 cm prox calf: 0.17 x 0.22 cm mid calf: 0.14 x 0.18 cm distal calf: 0.22 x 0.30 cm IMPRESSION: Right: Normal study. There is no evidence of acute or chronic greatersaphenous thrombosis. Greater saphenous dimensions are as described above. Left: Normal study. There is no evidence of acute or chronic greatersaphenous thrombosis. Greater saphenous dimensions are as described above. COMMUNICATION: Per this written report. Preliminary report signed by Esperanza Hall RVT on 02/17/2025 12:04 PM By electronically signing this report, I, the attending physician, attestthat I have personally reviewed the images/data for the aboveexamination(s) and I agree with the final edited report. Drafted by Esperanza Hall RVT on 02/17/2025 12:01 PM Final report signed by Cortez Worthington MD on 02/18/2025 1:52 PM Alexsandra Cooper APRN, DNP CV VASCULAR PROCEDURES Fi nal Result * ECHO, ADULT TRANSTHORACIC COMPLETE (02/17/2025 9:30 AM EDT) BSA 2.22 m2 GUILLERMINA ISCV Height 180.3 GUILLERMINA ISCV Weight 102.5 GUILLERMINA ISCV LV V1 VTI 34.8 cm GUILLERMINA ISCV AI Vmax 395.0 cm/s GUILLERMINA ISCV AI max PG 62 mmHg GUILLERMINA ISCV AI dec slope 233 cm/s2 GUILLERMINA ISCV LV V1 Vmax 140.0 cm/s GUILLERMINA ISCV Ao V2 VTI 65.3 cm GUILLERMINA ISCV Ao mean PG 19 mmHg GUILLERMINA ISCV Ao V2 Vmax 303.0 cm/s GUILLERMINA ISCV Ao max PG 37 mmHg GUILLERMINA ISCV AV VTI Index 0.53 GUILLERMINA ISCV LV mean PG 4.0 mmHG GUILLERMINA ISCV LV V1 mean 96.5 cm/sec GUILLERMINA ISCV LV max PG 7.8 mmHg GUILLERMINA ISCV AV-pr VR 0.5 GUILLERMINA ISCV Ao V2 mean 195.0 cm/s GUILLERMINA ISCV LVIDd 63 mm GUILLERMINA ISCV IVSd 10 mm GUILLERMINA ISCV LVPWd 10 mm GUILLERMINA ISCV LV MASS(C)D 264 g GUILLERMINA ISCV LV RWT 0.32 mm GUILLERMINA ISCV LVIDs 45 mm GUILLERMINA ISCV LA dimension 36 mm GUILLERMINA ISCV LVOT diam 19 mm GUILLERMINA ISCV LVOT AREA 2.8 cm2 GUILLERMINA ISCV SV(LVOT) 99 mL GUILLERMINA ISCV PETE(I,D) 1.5 cm2 GUILLERMINA ISCV EPTE(VTI)/BSA_p hl 0.7 cm2/m2 [facility] Ao Root Diam 42 mm [facility] ISCV LAV(MOD-4ch) 61 mL [facility] MV E Vmax 64.4 cm/s [facility]SC[facility] MV A Vmax 56.2 cm/s [facility]SC[facility] MV E/A 1.1 cm/s [facility] MV dec time 210 ms [facility] MV P1/2t 61 ms [facility] MVA(P1/2t) 3.6 cm2 [facility] LV Lat e' Velocity 7.6 cm/s [facility]SC[facility] Lat E/e' 8.5 [facility]SC[facility] LV Sept e' Joao 7.7 cm/s [facility]SC[facility] Sep E/e' 8.4 [facility] Avg E/e' 8.4 [facility] RA MOD 4Ch 48 mL [facility]SC[facility] MICHAEL 22 mL/m2 [facility] RV base 35 mm [facility]SC[facility] RV Mid 26 mm [facility] RV Length 102 mm [facility]SC[facility] RV s' Joao 17.5 cm/s [facility] TAPSE 29 mm [facility]SC[facility] LV EDV(MOD-4ch) 197 mL [facility]SC[facility] LV ESV(MOD4ch) 91 mL [facility] ISCV EF(MOD-sp4) 54 % [facility]SC[facility] LV EDV(MOD-2ch) 129 mL [facility] ISCV EDV(MOD-bp) 163 mL [facility] ISCV LV ESV(MOD2ch) 60 mL [facility] ISCV EF(MOD-sp2) 53 % [facility]SC[facility] ESV(MOD-bp) 76 mL [facility] ISCV EF(MOD-bp) 54 % [facility]SC[facility] LVLs ap2 8.0 mm [facility]SC[facility] LAV(MOD-bp) Indexed 25 mL/m2 [facility] LAV(MOD-2ch) 50 mL [facility]SC[facility] PA acc time 80 msec [facility] mean PAP 43 mmHg GUILLERMINA ISCV PA IN(ACCEL) 44.5 mmHg GUILLERMINA ISCV PA acc slope 1,300.0 cm/s2 GUILLERMINA ISCV Anatomical Region Laterality Modality Echocardiography Narrative 02/17/2025 10:09 AM EDT Left Ventricle: Based on the linear dimension and/or 2D volumes, the left ventricle is mildly dilated in size. There is concentric hypertrophy. The LVEF as measured by biplane volume is 54%. The calculated cardiac index based on LVOT Doppler technique is normal. The left ventricular filling pressure is normal. No regional wall motion abnormalities are seen. Aortic Valve: There is calcification of the aortic valve leaflets. There is mild to moderate aortic valve regurgitation. There is mild to moderate aortic stenosis. The peak gradient is 37 mmHg. The mean gradient is 19 mmHg. The estimated aortic valve area by the continuity equation is 1.5 cm2. Left Atrium: The left atrial size is normal with an indexed volume of 16-34 mL/m2. Left Ventricle Based on the linear dimension and/or 2D volumes, the left ventricle is mildly dilated in size. There is concentric hypertrophy. The LVEF as measured by biplane volume is 54%. The calculated cardiac index based on LVOT Doppler technique is normal. The left ventricular filling pressure is normal. No regional wall motion abnormalities are seen. Right Ventricle The right ventricle is normal in size. The right ventricular systolic function is normal. The spectral Doppler envelope of TR is not adequate for calculating the right ventricular systolic pressure (RVSP). Based upon other 2D and Doppler features, the RVSP is probably normal or at most mildly elevated. Left Atrium The left atrial size is normal with an indexed volume of 16-34 mL/m2. The interatrial septum is intact with no evidence for an atrial septal defect. Right Atrium The right atrial volume index is normal (18-32mL/m2). IVC/SVC Based on the IVC size and respiratory variation, the estimated right atrial pressure is 3mmHg. Mitral Valve The mitral valve leaflets are normal in appearance with no evidence of mitral valve prolapse. There is mild mitral regurgitation. There is no mitral stenosis. Tricuspid Valve The tricuspid valve is normal in appearance. There is no tricuspid regurgitation. There is no tricuspid stenosis. Aortic Valve There is calcification of the aortic valve leaflets. There is mild to moderate aortic valve regurgitation. There is mild to moderate aortic stenosis. The peak gradient is 37 mmHg. The mean gradient is 19 mmHg. The estimated aortic valve area by the continuity equation is 1.5 cm2. Pulmonic Valve The pulmonic valve was not well visualized. There is no pulmonic regurgitation. There is no pulmonic stenosis. Pericardium No pericardial effusion. Great Vessels The aortic root is normal in size. The sinus of Valsalva (aortic root) diameter is 42 mm by leading edge to leading edge method. The main pulmonary artery is not well visualized. Study Details A complete transthoracic echocardiogram using two-dimensional (2D), m-mode, color and spectral flow Doppler imaging was performed. Height: 180.3 cm. Weight: 102.5 kg. BSA: 2.22 m2. Study Recommendation There is no recent study available for direct [id number] comparison. us Alexsandra Cooper APRN, JESSE CV ECHO PROCEDURES Final Result * Lavender Top (02/16/2025 8:27 PM EDT) Only the most recent of2 resultswithin the time period is included. Pathologist [facility] Extra Hold for add-ons 02/16/2025 11:01 PM EDT [facility] Comment:Auto resulted. Blood Venous blood specimen / Unknown 02/16/2025 8:27 PM EDT 02/16/2025 8:27 PM EDT us Frederic Hein MD LAB BLOOD ORDERABLES Final Resu lt [facility] [address] [place] [address] * (ABNORMAL) Blood gas panel, venous (02/16/2025 8:23 PM EDT) Pathologist [facility] pH, Venous 7.42 7.32 - 7.43 LAB HEMATOLOGY METHOD 02/16/2025 8:41 PM EDT [facility] pCO2, Venous 36(L) 40 - 55 mmHg LAB HEMATOLOGY METHOD 02/16/2025 8:41 PM EDT [facility] pO2, Venous 49(H) 25 - 40 mmHg LAB HEMATOLOGY METHOD 02/16/2025 8:41 PM EDT [facility] SO2, Measured, Venous 84(H) 65 - 80 % LAB HEMATOLOGY METHOD 02/16/2025 8:41 PM EDT [facility] Base Excess, Venous -1.3 -2.0 - 3.0 mmol/L LAB HEMATOLOGY METHOD 02/16/2025 8:41 PM EDT [facility] Bicarbonate, Calculated, Venous 23 22 - 26 mmol/L LAB HEMATOLOGY METHOD 02/16/2025 8:41 PM EDT [facility] Hematocrit, Whole Blood 31.2(L) 40.0 - 51.0 % LAB HEMATOLOGY METHOD 02/16/2025 8:41 PM EDT [facility] Sodium, Whole Blood 139 136 - 145 mmol/L LAB HEMATOLOGY METHOD 02/16/2025 8:41 PM EDT [facility] Potassium, Whole Blood 3.6 3.6 - 4.9 mmol/L LAB HEMATOLOGY METHOD 02/16/2025 8:41 PM EDT [facility] Chloride, Whole Blood 106 97 - 107 mmol/L LAB HEMATOLOGY METHOD 02/16/2025 8:41 PM EDT [facility] Glucose, Whole Blood 86 74 - 99 mg/dL LAB HEMATOLOGY METHOD 02/16/2025 8:41 PM EDT [facility] Lactate, Venous, Whole Blood 1.2 0.5 - 2.2 mmol/L LAB HEMATOLOGY METHOD 02/16/2025 8:41 PM EDT [facility] Ionized Calcium, Whole Blood 4.6 4.6 - 5.1 mg/dL LAB HEMATOLOGY METHOD 02/16/2025 8:41 PM EDT [facility] Blood Venous blood specimen / Unknown Venipuncture / Unknown 02/16/2025 8:23 PM EDT 02/16/2025 8:38 PM EDT us Alexsandra Cooper AREA DEVELOPMENT CONSULTANT, DNP LAB BLOOD ORDERABLES Bianca l Result [facility] [address] [place] [address] * Creatine Kinase (CK), Total (02/16/2025 8:15 PM EDT) Creatine Kinase, Plasma 114 49 - 320 U/L 02/16/2025 10:24 PM EDT [facility] Blood Venous blood specimen / Unknown Venipuncture / Unknown 02/16/2025 8:15 PM EDT 02/16/2025 8:26 PM EDT us Frederic Hein MD LAB BLOOD ORDERABLES Final Resu lt Performing Organization Address [facility]/ZIP Co de Phone Number [facility] [address] [place] [address] * Platelet P2Y12 Receptor Blockade, Verify Now PRU (02/16/2025 8:15 PM EDT) Pathologist [facility] P2Y12 PRU [phone] 418 PRU 02/16/2025 8:50 PM EDT [facility] Blood Venous blood specimen / Unknown Venipuncture / Unknown 02/16/2025 8:15 PM EDT 02/16/2025 8:37 PM EDT Narrative [facility] - 02/16/2025 8:50 PM EDT P2Y12 Result Interpretation: P2Y12 values < 194 PRU (low end of reference range) are specific evidence of a P2Y12 inhibitor effect. Test results are in P2Y12 reaction units (PRU). This measures the extent of platelet aggregation in the presence of P2Y12 inhibitor drugs such as clopidogrel (Plavix), prasugrel (Effient), ticagrelor (Brilinta), and ticlopidine (Ticlid). Patients who have been treated with Glycoprotein IIb/IIIa inhibitors should not be tested until platelet function has recovered. This time period is approximately 14 days after discontinuation of abciximab (ReoPro) and up to 48 hours after discontinuation of eptifibatide (Integrilin) and tirofiban (Aggrastat). Result may not be valid for platelet counts < 120 k/uL. The P2Y12 test results should be interpreted in conjunction with other clinical and laboratory data available to the clinician. Testing performed in the [facility] Special Co[facility]. Alexsandra Cooper APRN, JESSE LAB BLOOD ORDERABLES Bianca l Result Performing Organization Address City/[facility]/ZIP Co de Phone Number [facility] [address] [place] [address] * Lactic acid, plasma (02/16/2025 8:15 PM EDT) Lactate, Plasma 1.1 0.5 - 2.2 mmol/L 02/16/2025 9:17 PM EDT [facility] Blood Venous blood specimen / Unknown Venipuncture / Unknown 02/16/2025 8:15 PM EDT 02/16/2025 8:36 PM EDT Alexsandra Cooper APRN, DNP LAB BLOOD ORDERABLES Bianca l Result Performing Organization Address [facility] Co de Phone Number [facility] [address] [place] [address] * (ABNORMAL) Lipid panel (02/16/2025 8:15 PM EDT) Cholesterol, Plasma 123 <200 mg/dL 02/16/2025 10:24 PM EDT [facility] Comment: Cholesterol Reference Range (age >17 years): Desirable <200 mg/dL Borderline 200 to 239 mg/dL Undesirable >239 mg/dL HDL 29(L) >=40 mg/dL 02/16/2025 10:24 PM EDT [facility] Comment: HDL Cholesterol Reference Ranges (age >17 years): Female, acceptable > or = 50 mg/dL Male, acceptable > or = 40 mg/dL Triglycerides, Plasma 91 <150 mg/dL 02/16/2025 10:24 PM EDT [facility] Comment: Triglyceride Reference Range (age >17 years): Desirable: <150 mg/dL Borderline high: 150 to 199 mg/dL High: 200 to 499 mg/dL Very high: >499 mg/dL Increased risk of pancreatitis: >1000 mg/dL Cholesterol/HDL Ratio 4 02/16/2025 10:24 PM EDT [facility] LDL, Calculated 76 <100 mg/dL 10:24 PM EDT [facility] Comment: LDL Cholesterol Reference Range (age >17 years): Optimal: <100 mg/dL Near or above optimal: 100 - 129 mg/dL Borderline high: 130 - 159 mg/dL High: 160 - 189 mg/dL Very high: >189 mg/dL LDL Cholesterol Reference Range (age <18 years): Desirable: <110 mg/dL Borderline: 110 - 129 mg/dL Undesirable: >130 mg/dL LDL Cholesterol is calculated using the Maria/NIH equation. Fasting greater than or equal to 12 hours? Unknown 02/16/2025 10:24 PM EDT [facility] Blood Venous blood specimen / Unknown Venipuncture / Unknown 02/16/2025 8:15 PM EDT 02/16/2025 8:26 PM EDT us Alexsandra Cooper APRN, JESSE LAB BLOOD ORDERABLES Bianca l Result Performing Organization Address City/[facility] Co de Phone Number [facility] [address] [place] [address] * (ABNORMAL) TSH Reflex FT4 (02/16/2025 7:36 PM EDT) Thyroid Stimulating Hormone, Plasma 5.67(H) 0.40 - 4.20 uIU/mL 02/16/2025 8:21 PM EDT [facility] Blood Venous blood specimen / Unknown Venipuncture / Unknown 02/16/2025 7:36 PM EDT 02/16/2025 7:44 PM EDT us Alexsandra Cooper APRN, DNP LAB BLOOD ORDERABLES Bianca l Result [facility] [address] [place] [address] * (ABNORMAL) Prealbumin, Plasma (02/16/2025 7:36 PM EDT) Prealbumin, Plasma 14.6(L) 20.0 - 41.0 mg/dL 02/16/2025 8:19 PM EDT [facility] Blood Venous blood specimen / Unknown Venipuncture / Unknown 02/16/2025 7:36 PM EDT 02/16/2025 7:44 PM EDT us Alexsandra Cooper APRN, DNP LAB BLOOD ORDERABLES Bianca l Result Performing Organization Address City/[facility] [place] [address] * Hemoglobin A1c (02/16/2025 7:36 PM EDT) Hemoglobin A1c 5.5 <5.7 % 02/16/2025 8:48 PM EDT [facility] Blood Venous blood specimen / Unknown Venipuncture / Unknown 02/16/2025 7:36 PM EDT 02/16/2025 7:44 PM EDT Narrative [facility] - 02/16/2025 8:48 PM EDT HA1C Interpretive Data: Diagnosis of Diabetes: Diabetic > or = 6.5% Pre-diabetic 5.7 to 6.4% Non-diabetic < or = 5.6% Glycemic Targets for Type I and Type II Diabetics: Non- Adults <7.0% Adults <6.0% Children and Adolescents <7.5% Source: [place] [employer]. Standards of medical care in diabetes,2017. Diabetes Care.2017:40 (suppl 1):S1-S135. us Alexsandra Cooper APRN, DNP LAB BLOOD ORDERABLES Bianca l Result Performing Organization Address City/[facility]/[place] [address] * CT OUTSIDE IMAGES (02/15/2025 11:54 AM EDT) Anatomical Region Laterality Modality Computed Tomogra phy 02/15/2025 11:5 4 AM EDT us Ysabel Christopher AREA DEVELOPMENT CONSULTANT IMG CT PROCEDURES Bianca l Result * IR OUTSIDE IMAGES (02/15/2025 10:23 AM EDT) Anatomical Region Laterality Modality X-Ray Angiograph y 02/15/2025 10:2 3 AM EDT us External Provider IMG IR PROCEDURES Final Result * US OUTSIDE IMAGES (02/15/2025 6:49 AM EDT) Only the most recent of3 resultswithin the time period is included. Anatomical Region Laterality Modality Ultrasound 02/15/2025 6:49 AM EDT us External Provider IMG US PROCEDURES Final Result * XR OUTSIDE IMAGES (02/13/2025 4:55 PM EDT) Anatomical Region Laterality Modality Radiographic Nubia ging 02/13/2025 4:55 PM EDT us Eugonda F Leslie AREA DEVELOPMENT CONSULTANT IMG XR PROCEDURES Final Re sult from Last 3 Months Additional Health Concerns Active Problems Noted Date Diagnosed Date Autogenerated Problem 03/25/[address] [place] [address] [facility] MEDICAID Advance Directives * Full Code (Latest Code Status on File) Date Activated Date Inactivated Comments 03/25/2025 5:18 AM 03/31/2025 3:00 PM Question Answer Comments I have reviewed the capacity from the link above and, if needed, have updated to appropriate status: Yes * Full Code Date Activated Date Inactivated Comments 03/12/2025 7:02 AM 03/17/2025 4:43 PM Question Answer Comments I have reviewed the capacity from the link above and, if needed, have updated to appropriate status: Yes * Full Code Date Activated Date Inactivated Comments 02/21/2025 9:54 PM 03/02/2025 4:47 PM * Full Code Date Activated Date Inactivated Comments 02/16/2025 7:33 PM 02/21/2025 9:54 PM Care Teams Pleat Taper Relationship Specialty Start Date End Date Kiera Castro APRN [address] [place] [address] PCP - General 02/17/25
--- OUTSIDE RECORDS SUMMARY | 2025-05-03 11:02 | XMS_ITS | Encounter Summary ---
Author Organization Healthcare Address [address] [place] [address] Care Team Providers Care Tower Observer Name Role Phone Kiera Castro APRN Primary Care Provider [phone] Lucero Stafford LPN Unavailable Unavailable Reason for Visit * Reason Comments TCM Call Encounter Details Date Type Department Care Team (Late Contact Info) Description 04/01/2025 Patient Outreach POPULATION HEALTH [address], [address] [place] [address] Lucero Stafford LPN [employer] [place] [address] TCM Call Social History Tobacco Use Types Packs/Day Years [...] time in the past 12 m [facility], were you homeless or living in a [place] [facility] [place] facility (including now)? No 03/27/2025 Utilities Answer Date Recorded In the past 12 months has th e [employer], gas, oil, or water company threatened to shut off services in your home? No 03/27/2025 Sex and Gender Information Value Date Recorded Sex Assigned at Not on file Legal Sex Male 8:34 PM EDT Gender Identity Not on file Sexual Orientation Not on file documented as of this encounter Miscellaneous Notes * Progress Notes - Lucero Stafford LPN - 04/01/2025 9:01 AM EDT Admit Date: 03/25/2025 Discharge Date: 03/31/2025 Hospital Service: Hospital Medicine Discharge Diagnosis: Upper GI bleed 04/01/2025 TCM call # 1 Patient Reached: N Outcome: Patient not reached, LVM. Action: N/A Medication changes: Per AVS: Start: Oxycodone 5mg q 6 hr prn Pantoprazole 40mg BID Dakins (HALF-Strength) Apply topically 2 times a day Sucralfate e 1 GM/10ML suspension take 10mgl QID before meals and nightly Change: Amiodarone 200mg q day Pause: Apixaban 5mg Stop: Augmentin 1000-62.5mg Doxycycline 100mg Potassium chloride 20meq [facility] appointment: N/A Items to address at [facility]: -GI referral pending Per CM note dated 03/31/2025: Patient has been referred to [facility]; RNCMcontacted agency regarding plan for discharge to home today. Williams Rubin with [facility] confirms that documentation has been received, and [facility] has approved this in-home care. documented in this encounter Plan of Treatment Upcoming Encounters Date Type Department Care Team (Late st Contact Info) Description 08/03/2025 12:40 PM EDT Office Visit [facility] [address] [place] [address] Dimitrios Wright MD [address] [place] [address] documented as of this encounter Goals Goal Patient Goal Type Associated Problems Recent Progress Patient-Stated? Author Autogenerat ed Goal Care Plan Autogenerated Problem No Mauro Moeller, RN documented as of this encounter Visit Diagnoses Not on filedocumented in this encounter Additional Health Concerns Active Problems Noted Date Diagnosed Date Autogenerated Problem 03/25/2025 Assessment Noted Time A Body Mass Index follow-up plan has been documented for the patient 03/31/2025 9:36 AM EDT documented as of this encounter Care Teams Tower Observer Relationship Specialty Start Date End Date Kiera Castro APRN [address] [place] [address] PCP - General 02/17/25 Lucero Stafford LPN [employer] [place] [address] TCM Nurse 04/01/25 05/01/25 documented as of this encounter
--- OUTSIDE RECORDS SUMMARY | 2025-05-03 11:02 | XMS_ITS | Encounter Summary ---
Author Organization Healthcare Address [address] [place] [address] Care Team Providers Care Freelance Recruiter Name Role Phone Kiera Castro APRN Primary Care Provider [phone] Lucero Stafford LPN Unavailable Unavailable Reason for Visit * Reason Comments Follow-up Encounter Details Date Type Department Care Team (Late Contact Info) Description 04/08/2025 Patient Outreach POP[facility]ALTH [address], [address] [place] [address] Lucero Stafford LPN [employer] [place] [address] Follow-up Social History Tobacco Use Types Packs/Day Years [...] any time in the past 12 m onths, were you homeless or living in a [facility] (including now)? No 04/06/2025 Utilities Answer Date Recorded In the past 12 months has th e [employer], gas, oil, or water company threatened to shut off services in your home? No 03/27/2025 Sex and Gender Information Value Date Recorded Sex Assigned at Not on file Legal Sex Male 8:34 PM EDT Gender Identity Not on file Sexual Orientation Not on file documented as of this encounter Miscellaneous Notes * Progress Notes - Lucero Satfford LPN - 04/08/2025 3:57 PM EDT 04/08/2025 TCM Follow-up Call Patient reached: Y Outcome: Patient reached and states he followed up with his outside PCP Kiera Castro APRN today and also reports [facility] came today and changed the dressing on his wound and left supplies for wound care until his shipment comes on Saturday. States [facility] will be coming twice a week tohis home. States his PCP did labwork today. Medications were reviewed during [facility] nurse call and [facility] is up to date. Patient reports he is very tired from having so many appointments today. Patient did not have any other questions, concerns or complaints at time of nurse call. Action: Upcoming appointments reviewed during nurse call. documented in this encounter Plan of Treatment Upcoming Encounters Date Type Department Care Team (Late st Contact Info) Description 08/03/2025 12:40 PM EDT Office Visit [facility] [address] [place] [address] Dimitrios Wright MD [address] [place] [id number] documented as of this encounter Goals Goal [...] documented as of this encounter Care Teams Freelance Recruiter Relationship Specialty Start Date End Date Kiera Castro APRN [address] [place] [address] PCP - General 02/17/25 Lucero Stafford LPN [employer] [place] [address] TCM Nurse 04/01/25 05/01/25 documented as of this encounter
--- OUTSIDE RECORDS SUMMARY | 2025-05-03 11:02 | XMS_ITS | Encounter Summary ---
Author Organization Healthcare Address [address] [place] [address] Care Team Providers Care Four Slide Machine Operator Name Role Phone Kiera Castro APRN Primary Care Provider [phone] Lucero Stafford LPN Unavailable Unavailable Reason for Visit * Reason Comments TCM Call Encounter Details Date Type Department Care Team (Late Contact Info) Description 04/06/2025 Patient Outreach POP[facility] [address], [address] [place] [address] Lucero Stafford LPN [employer] [place] [address] TCM Call Social History Tobacco Use Types [...] any time in the past 12 m [place], were you homeless or living in a jail (including now)? No 04/06/2025 Utilities Answer Date Recorded In the past 12 months has th e [employer], gas, oil, or water company threatened to shut off services in your home? No 03/27/2025 Sex and Gender Information Value Date Recorded Sex Assigned at Not on file Legal Sex Male 8:34 PM EDT Gender Identity Not on file Sexual Orientation Not on file documented as of this encounter Miscellaneous Notes * Progress Notes - Lucero Stafford LPN - 04/06/2025 11:38 AM EDT Admit Date: 03/25/2025 Discharge Date: 03/31/2025 Hospital Service: Hospital Medicine Discharge Diagnosis: Upper GI bleed 04/06/2025 TCM call # 3 Patient Reached: Y Outcome: Patient reached. Patient reports he has a hospital follow up appointment scheduled with his outside PCP Kiera Castro APRN on 04/08/2025. Patient reports he is doing well and denied N/V, diarrhea, fever, chills, CP, palpitations, SOA, increased weakness/fatigue, dark, tarry or bloody stools or increased redness, swelling or drainage from wound or increased pain. States he quit smoking. [facility] has not been out and reports he is running out of supplies for at home dressing changes. Patient states he is unable to review medications due to he is not at home and does not know them for review but reports he did get his discharge medications. Housing reviewed and no needs were identified and patient denied other [facility] needs. States he has transportation to his appointments. Patient did not have any other questions, concerns or complaints at time of nurse call. Action: Reviewed upcoming appointments in [facility] with patient during nurse call. Call placed to [facility]. Spoke with Trent, she states patient did telehealth appointment with them on 04/01/2025 and has a follow up appointment scheduled on 04/08/2025 at 11:30 with their provider. Bijusilvestre states she will have wound care supplies sent to patient MARK and will reach out to patient to make him aware. This nurse called patient back and made him aware [facility] would be calling him and sending wound care supplies out MARK. This nurse also [facility] to [facility] this afternoon if he does not hear from them. Patient verbalized understanding. Advised patient to take all medications in original containers to his PCP follow up appointment. Medication changes: Per AVS: Start: Oxycodone 5mg q 6 hr prn Pantoprazole 40mg BID Dakins (HALF-Strength) Apply topically 2 times a day Sucralfate e 1 GM/10ML suspension take 10mgl QID before meals and nightly Change: Amiodarone 200mg q day Pause: Apixaban 5mg Stop: Augmentin 1000-62.5mg Doxycycline 100mg Potassium chloride 20meq [facility] appointment: Patient reports he has a hospital follow up appointment scheduled with his outsidePCP Kiera Castro APRN on 04/08/2025. Items to address at RENZO: -GI referral pending Per CM note dated 03/31/2025: Patient has been referred to [facility] In- Home Wound Care; RNCMcontacted agency regarding plan for discharge to home today. Williams Rubin with [facility] confirms that documentation has been received, and [facility] has approved this in-home care. documented in this encounter Plan of Treatment Upcoming Encounters Date Type Department Care Team (Late st Contact Info) Description 08/03/2025 12:40 PM EDT Office Visit [facility] [place] [facility] [address] [place] [address] Dimitrios Wright MD [address] [place] [address] documented as of this encounter Goals Goal [...] documented as of this encounter Care Teams Four Slide Machine Operator Relationship Specialty Start Date End Date Kiera Castro APRN [address] [place] [address] PCP - General 02/17/25 Lucero Stafford LPN [employer] [place] [address] TCM Nurse 04/01/25 05/01/25 documented as of this encounter
--- OUTSIDE RECORDS SUMMARY | 2025-05-03 11:02 | XMS_ITS | Encounter Summary ---
Author Organization Healthcare Address [address] [place] [address] Care Team Providers Care Fire Information Officer Name Role Phone Matthew Kiera Whitmore APRN Primary Care Provider [phone] Encounter Details Date Type Department Care Team (Latest Contact Info) Description 03/25/2025 Travel Social History Tobacco Use Types Packs/Day Years Used Date Smoking Tobacco: Former Cigarettes Smokeless Tobacco: Never Alcohol Use Standard Drinks/Week Comments Not Currently 0 (1 standard drink = 0.6 oz pur e alcohol) Humiliation, Afraid, Rape, and Kick questionnair e Answer Date Recorded Within the last year, have y ou been afraid of your partner or ex-partner? No 03/16/2025 Within the last year, have y ou been humiliated or emotionally abused in other ways by your partner or ex-partner? No Within the last year, have y ou been kicked, hit, slapped, or otherwise physically hurt by your partner or ex-partner? No 03/16/2025 Within the last year, have y ou been raped or forced to have any kind of sexual activity by your partner or ex-partner? No 03/16/2025 Hunger Vital Sign Answer Date Recorded Within the past 12 months, y ou worried that your food would run out before you got the money to buy more. Never true 03/16/20 25 Within the past 12 months, t he food you bought just didn't last and you didn't have money to get more. Never true 03/16/2025 PRAPARE - Transportation Answer Date Re corded In the past 12 months, has l ack of transportation kept you from medical appointments or from getting medications? No 050 04/2025 In the past 12 months, has l ack of transportation kept you from meetings, work, or from getting things needed for daily living? No 03/16/2025 Housing Stability Vital Sign Answer Guillaume e Recorded In the last 12 months, was t here a time when you were not able to pay the mortgage or rent on time? No 03/16/2025 Number of Times Moved in the Last Year Not on fi le 03/16/2025 At any time in the past 12 m [facility], were you homeless or living in a half-way (including now)? No 03/16/2025 Utilities Answer Date Recorded In the past 12 months has th e electric, gas, oil, or water company threatened to shut off services in your home? No 03/16/2025 Sex and Gender Information Value Date Recorded [...] Vásquez RN documented as of this encounter Plan of Treatment Upcoming Encounters Date Type Department Care Team (Late st Contact Info) Description 08/03/2025 12:40 PM EDT Office Visit [facility] [place] [facility] [address] [facility] [place] [address] Dimitrios Wright MD [address] [place] [phone] documented as of this encounter Goals Goal [...] documented as of this encounter Care Teams Fire Information Officer Relationship Specialty Start Date End Date Kiera Castro, CASTING WHEEL OPERATOR HELPER [address] [place] [address] PCP - General 02/17/25 documented as of this encounter
--- OUTSIDE RECORDS SUMMARY | 2025-05-03 11:02 | XMS_ITS | Encounter Summary ---
Author Organization Healthcare Address [address] [place] [address] Care Team Providers Care Reaming Machine Operator For Plastic Name Role Phone Matthew Kiera Whitmore APRN Primary Care Provider [phone] Encounter Details Date Type Department Care Team (Latest Contact Info) Description 03/17/2025 Travel Social History Tobacco Use Types Packs/Day [...] medical appointments or from getting medications? No 0 04/2025 In the past 12 months, has [...] any time in the past 12 m [facility], were you homeless or living in a fdc (including now)? No 03/16/2025 Utilities Answer Date [...] Date of Assessment Author No Risk Indicated 03/17/2025 8:00 AM EDT Kayce Howe RN * Question Answer Date of Assessment Author 1. Wish to be (Past 1 Month) No 03/17/2025 8:00 AM EDT Kayce Howe RN 2. Non-Specific Active Suici prabhakar Thoughts (Past 1 Month) No 03/17/2025 8:00 AM EDT Rob Howe, RN 6. Suicidal Behavior (Lifetime) No 8:00 AM EDT Kayce Howe RN documented as of this encounter Plan of Treatment Upcoming Encounters Date Type Department Care Team (Late st Contact Info) Description 08/03/2025 12:40 PM EDT Office Visit [facility] [place] [facility] [address] [facility] [place] [address] Dimitrios Wright MD [address] [place] [phone] documented as of this encounter Visit Diagnoses Not on filedocumented in this encounter Additional Health Concerns Assessment Noted Time A Body Mass Index follow-up plan has been documented for the patient 03/17/2025 12:38 PM EDT documented as of this encounter Care Teams Reaming Machine Operator For Plastic Relationship Specialty Start Date End Date Kiera Castro APRN [address] [place] [address] PCP - General 02/17/25 documented as of this encounter
--- OUTSIDE RECORDS SUMMARY | 2025-05-03 11:02 | XMS_ITS | Encounter Summary ---
Author Organization Healthcare Address [address] [place] [address] Care Team Providers Care Eye Physician Name Role Phone Kiera Castro APRN Primary Care Provider [phone] Lucero Stafford LPN Unavailable Unavailable Reason for Visit * Reason Comments TCM Call Encounter Details Date Type Department Care Team (Late Contact Info) Description 04/02/2025 Patient Outreach POPUL[facility] [address], [address] [place] [address] Lucero Stafford LPN [employer] [place] [address] TCM Call Social History Tobacco Use Types [...] any time in the past 12 m [facility], were you homeless or living in a detention (including now)? No 03/27/2025 Utilities Answer Date Recorded In the past 12 months has th e [employer], gas, oil, or water company threatened to shut off services in your home? No 03/27/2025 Sex and Gender Information Value Date Recorded Sex Assigned at Not on file Legal Sex Male 8:34 PM EDT Gender Identity Not on file Sexual Orientation Not on file documented as of this encounter Miscellaneous Notes * Progress Notes - Lucero Stafford LPN - 04/02/2025 11:07 AM EDT Admit Date: 03/25/2025 Discharge Date: 03/31/2025 Hospital Service: Hospital Medicine Discharge Diagnosis: Upper GI bleed 04/02/2025 TCM call # 2 Patient Reached: N Outcome: Patient not reached, [...] dated 03/31/2025: Patient has been referred to [facility]; RNCMcontacted agency regarding plan for discharge to home today. Williams Rubin with [facility] confirms that documentation has been received, and [facility] has approved this in-home care. documented in this encounter Plan of Treatment Upcoming Encounters Date Type Department Care Team (Late st Contact Info) Description 08/03/2025 12:40 PM EDT Office Visit [facility] [place] [address] [place] [address] Dimitrios Wright MD [address] [place] [address] documented as of this encounter Goals Goal [...] documented as of this encounter Care Teams Eye Physician Relationship Specialty Start Date End Date Kiera Castro APRN [address] [place] [address] PCP - General 02/17/25 Lucero Stafford LPN [employer]ED [place] [address] TCM Nurse 04/01/25 05/01/25 documented as of this encounter
--- OUTSIDE RECORDS SUMMARY | 2025-05-03 11:03 | XMS_ITS | Encounter Summary ---
Author Organization Healthcare Address [address] [place] [address] Care Team Providers Care Bone Char Operator Name Role Phone Matthew Kiera Whitmore APRN Primary Care Provider [phone] Encounter Details Date Type Department Care Team (Latest Contact Info) Description 03/14/2025 Travel Social History Tobacco Use Types Packs/Day Years Used Date Smoking Tobacco: Former Cigarettes Smokeless Tobacco: Never Alcohol Use Standard Drinks/Week Comments Not Currently 0 (1 standard drink = 0.6 oz pur e alcohol) Humiliation, Afraid, Rape, and Kick questionnair e Answer Date Recorded Within the last year, have y ou been afraid of your partner or ex-partner? No 02/17/2025 Within the last year, have y ou been humiliated or emotionally abused in other ways by your partner or ex-partner? No Within the last year, have y ou been kicked, hit, slapped, or otherwise physically hurt by your partner or ex-partner? No 02/17/2025 Within the last year, have y ou been raped or forced to have any kind of sexual activity by your partner or ex-partner? No 02/17/2025 Hunger Vital Sign Answer Date Recorded Within the past 12 months, y ou worried that your food would run out before you got the money to buy more. Never true 02/18/20 25 Within the past 12 months, t he food you bought just didn't last and you didn't have money to get more. Never true 02/17/2025 PRAPARE - Transportation Answer Date Re corded In the past 12 months, has l ack of transportation kept you from medical appointments or from getting medications? No 07/2025 In the past 12 months, has l ack of transportation kept you from meetings, work, or from getting things needed for daily living? No 02/17/2025 Housing Stability Vital Sign Answer Guillaume e Recorded In the last 12 months, was t here a time when you were not able to pay the mortgage or rent on time? No 02/17/2025 Number of Times Moved in the Last Year Not on fi le 02/17/2025 At any time in the past 12 m [facility], were you homeless or living in a fci (including now)? No 02/17/2025 Utilities Answer Date Recorded In the past 12 months has th e electric, gas, oil, or water company threatened to shut off services in your home? No 02/17/2025 Sex and Gender Information Value Date Recorded Sex Assigned at Not on file Legal Sex Male 8:34 PM EDT Gender Identity Not on file Sexual Orientation Not on file documented as of this encounter Functional Status * Calculated C-SSRS Risk Score (Lifetime/Recent) Answer Date of Assessment Author No Risk Indicated 03/14/2025 8:00 AM EDT Kiera Solis RN * Question Answer Date of Assessment Author 1. Wish to be (Past 1 Month) No 03/14/2025 8:00 AM ALIZAT Kiera Solis, RN 2. Non-Specific Active Suici prabhakar Thoughts (Past 1 Month) No 03/14/2025 8:00 AM ALIZAT Danitza Solis, RN 6. Suicidal Behavior (Lifetime) No 8:00 AM EDT Kiera Solis, RN documented as of this encounter Plan of Treatment Upcoming Encounters Date Type Department Care Team (Late st Contact Info) Description 08/03/2025 12:40 PM EDT Office Visit [facility] [place] [facility] [address] [facility] [place] [address] Dimitrios Wright MD [address] [place] [address] documented as of this encounter Visit Diagnoses Not on filedocumented in this encounter Additional Health Concerns Assessment Noted Time A Body Mass Index follow-up plan has been documented for the patient 03/17/2025 12:38 PM EDT documented as of this encounter Care Teams Bone Char Operator Relationship Specialty Start Date End Date Kiera Castro APRN [address] [place] [address] PCP - General 02/17/25 documented as of this encounter
--- OUTSIDE RECORDS SUMMARY | 2025-05-03 11:03 | XMS_ITS | Encounter Summary ---
Author Organization Healthcare Address [address] [place] [address] Care Team Providers Care Telecine Operator Name Role Phone Matthew Kiera Whitmore APRN Primary Care Provider [phone] Encounter Details Date Type Department Care Team (Latest Contact Info) Description 03/15/2025 Travel Social History Tobacco Use Types Packs/Day [...] living in a jail (including now)? No 03/16/2025 Utilities Answer Date [...] on file documented as of this encounter Plan of Treatment Upcoming Encounters Date Type Department Care Team (Late st Contact Info) Description 08/03/2025 12:40 PM EDT Office Visit [facility] [place] [address] [facility] [place] [address] Dimitrios Wright MD [address] [place] [address] documented as of this encounter Visit Diagnoses Not on filedocumented in this encounter Additional Health Concerns Assessment Noted Time A Body Mass Index follow-up plan has been documented for the patient 03/17/2025 12:38 PM EDT documented as of this encounter Care Teams Telecine Operator Relationship Specialty Start Date End Date Kiera Castro APRN [address] [place] [address] PCP - General 02/17/25 documented as of this encounter
--- OUTSIDE RECORDS SUMMARY | 2025-05-03 11:03 | XMS_ITS | Encounter Summary ---
Author Organization Healthcare Address [address] [place] [address] Care Team Providers Care First Aid Officer Name Role Phone Matthew Kiera Whitmore APRN Primary Care Provider [phone] Encounter Details Date Type Department Care Team (Latest Contact Info) Description 03/13/2025 Travel Social History Tobacco Use Types Packs/Day [...] any time in the past 12 m [facility], were you homeless or living in a nursing home (including now)? No 02/17/2025 Utilities Answer Date [...] Date of Assessment Author No Risk Indicated 03/13/2025 8:00 PM EDT Alexia Chakraborty RN * Question Answer Date of Assessment Author 1. Wish to be (Past 1 Month) No 03/13/2025 8:00 PM EDT Alexia Chakraborty RN 2. Non-Specific Active Suici prabhakar Thoughts (Past 1 Month) No 03/13/2025 8:00 PM EDT Rebecca Chakraborty RN 6. Suicidal Behavior (Lifetime) No 8:00 PM EDT Alexia Chakraborty RN documented as of this encounter Plan of Treatment Upcoming Encounters Date Type Department Care Team (Late st Contact Info) Description 08/03/2025 12:40 PM EDT Office Visit [facility] [place] [facility] [address] [facility] [place] [address] Dimitrios Wright MD [address] [place] [address] documented as of this encounter Visit Diagnoses Not on filedocumented in this encounter Additional Health Concerns Assessment Noted Time A Body Mass Index follow-up plan has been documented for the patient 03/17/2025 12:38 PM EDT documented as of this encounter Care Teams First Aid Officer Relationship Specialty Start Date End Date Kiera Castro APRN [address] [place] [address] PCP - General 02/17/25 documented as of this encounter
--- OUTSIDE RECORDS SUMMARY | 2025-05-03 11:03 | XMS_ITS | Encounter Summary ---
Author Organization Healthcare Address [address] [place] [address] Care Team Providers Care 1 Year Olds Preschool Teacher Name Role Phone Kiera Castro APRN Primary Care Provider [phone] Encounter Details Date Type Department Care Team (Late st Contact Info) Description 03/12/2025 Orders Only External Location [address] [place] [address] Provider, External Social History Tobacco Use Types Packs/Day Years [...] medical appointments or from getting medications? No 04/2025 In the past 12 months, has [...] any time in the past 12 m [facility], were you homeless or living in [...] (Past 1 Month) No 03/14/2025 8:00 AM EDT Danitza Solis RN 6. Suicidal Behavior (Lifetime) No 8:00 AM EDT Kiera Solis, RN documented as of this encounter Plan of Treatment Upcoming Encounters Date Type Department Care Team (Late st Contact Info) Description 08/03/2025 12:40 PM EDT Office Visit [facility] [place] [facility] [address] [place] [address] Dimitrios Wright MD [address] [place] [address] documented as of this encounter Procedures Procedure Name Priority Date/Time Associated Diagnosis Comments POC ULTRASOUND 03/12/2025 documented in this encounter Results * POC Imaging (03/12/2025) Anatomical Region Laterality Modality Pelvis Other 03/12/2025 us External Provider IMG POINT OF CARE ULTRASOUND F inal Result documented in this encounter Visit Diagnoses Not on filedocumented in this encounter Additional Health Concerns Assessment Noted Time A Body Mass Index follow-up plan has been documented for the patient 03/17/2025 12:38 PM EDT documented as of this encounter Care Teams 1 Year Olds Preschool Teacher Relationship Specialty Start Date End Date Kiera Castro APRN [address] [place] [id number] PCP - General 02/17/25 documented as of this encounter
--- OUTSIDE RECORDS SUMMARY | 2025-05-03 11:03 | XMS_ITS | Encounter Summary ---
Author Organization Healthcare Address [address] [place] [address] Care Team Providers Care Surgical Services Assistant Name Role Phone Matthew Kiera Whitmore APRN Primary Care Provider [phone] Encounter Details Date Type Department Care Team (Latest Contact Info) Description 03/16/2025 Travel Social History Tobacco Use Types Packs/Day [...] any time in the past 12 m [facility], were you homeless or living in a prison (including now)? No 03/16/2025 Utilities Answer Date [...] Date of Assessment Author No Risk Indicated 03/16/2025 8:00 PM EDT Apple Santo RN * Question Answer Date of Assessment Author 1. Wish to be (Past 1 Month) No 03/16/2025 8:00 PM EDT Apple Santo RN 2. Non-Specific Active Suici prabhakar Thoughts (Past 1 Month) No 03/16/2025 8:00 PM EDT Maren Santo RN 6. Suicidal Behavior (Lifetime) No 8:00 PM EDT Apple Santo RN documented as of this encounter Plan of Treatment Upcoming Encounters Date Type Department Care Team (Late st Contact Info) Description 08/03/2025 12:40 PM EDT Office Visit [facility] [place] [facility] [address] [facility] [place] [address] Dimitrios Wright MD [address] [place] [phone] documented as of this encounter Visit Diagnoses Not on filedocumented in this encounter Additional Health Concerns Assessment Noted Time A Body Mass Index follow-up plan has been documented for the patient 03/17/2025 12:38 PM EDT documented as of this encounter Care Teams Surgical Services Assistant Relationship Specialty Start Date End Date Kiera Castro APRN [address] [place] [address] PCP - General 02/17/25 documented as of this encounter
--- OUTSIDE RECORDS SUMMARY | 2025-05-03 11:03 | XMS_ITS | Encounter Summary ---
Author Organization Healthcare Address [address] [place] [address] Care Team Providers Care Metal Cleaner Name Role Phone Matthew Kiera Whitmore APRN Primary Care Provider [phone] Encounter Details Date Type Department Care Team (Latest Contact Info) Description 03/12/2025 Travel Social History Tobacco Use Types Packs/Day [...] living in a detention (including now)? No 02/17/2025 Utilities Answer Date [...] Date of Assessment Author No Risk Indicated 03/12/2025 10:00 PM EDT Anais Garcia RN * Question Answer Date of Assessment Author 1. Wish to be (Past 1 Month) No 03/12/2025 10:00 PM EDT Anais Conley, RN 2. Non-Specific Active Suici prabhakar Thoughts (Past 1 Month) No 03/12/2025 10:00 PM EDT Sivakumar Conley RN 6. Suicidal Behavior (Lifetime) No 10:00 PM EDT Anais Conley RN documented as of this encounter Plan of Treatment Upcoming Encounters Date Type Department Care Team (Late st Contact Info) Description 08/03/2025 12:40 PM EDT Office Visit [facility] [place] [facility] [address] [facility] [place] [phone] Dimitrios Wright MD [address] [place] [phone] documented as of this encounter Visit Diagnoses Not on filedocumented in this encounter Additional Health Concerns Assessment Noted Time A Body Mass Index follow-up plan has been documented for the patient 03/17/2025 12:38 PM EDT documented as of this encounter Care Teams Metal Cleaner Relationship Specialty Start Date End Date Kiera Castro APRN [address] [place] [address] PCP - General 02/17/25 documented as of this encounter
--- OUTSIDE RECORDS SUMMARY | 2025-05-03 11:04 | XMS_ITS | Encounter Summary ---
Author Organization Healthcare Address [address] [place] [address] Care Team Providers Care Business Transformation Analyst Name Role Phone Matthew Kiera Whitmore APRN Primary Care Provider [phone] Lucero Stafford LPN Unavailable Unavailable Encounter Details Date Type Department Care Team (Late st Contact Info) Description 02/22/2025 Lab Requisition [facility] [address] [place] [address] Sohail Alex MD [address] [place] [address] Encounter for general adult medical examination without abnormal findings Social History Tobacco Use Types Packs/Day Years [...] any time in the past 12 m [facility], were you homeless or living in a [place] [facility] [place] facility (including now)? No 02/17/2025 Utilities Answer Date [...] Date of Assessment Author No Risk Indicated 02/25/2025 8:[address] Duck[place] RN * Question Answer Date of Assessment Author 1. Wish to be (Past 1 Month) No 025 8:[address] Duckworth, RN 2. Non-Specific Active Suici prabhakar Thoughts (Past 1 Month) No 02/25/2025 8:[address] [place], RN 6. Suicidal Behavior (Lifetime) No 8:[address] [place], RN documented as of this encounter Plan of Treatment Upcoming Encounters Date Type Department Care Team (Late st Contact Info) Description 08/03/2025 12:40 PM EDT Office Visit [facility] [place] [address] [place] [address] Dimitrios Wright MD [address] [place] [id number] documented as of this encounter Procedures Procedure Name Priority Date/Time Associated Diagnosis Comments MULTI DRUG RESISTANCE TEST Routine 02/22/2025 11:00 AM EDT Encounter for general adult medical examination without abnormal findings documented in this encounter Results * Multi Drug Resistance Test (02/22/2025 11:00 AM EDT) Culture No growth at day 1 02/23/2025 9:05 AM EDT [facility] Swab (Nares and Leslie Rectal) 02/22/2025 11:00 AM EDT 02/22/2025 11:49 AM EDT us Sohail Alex MD LAB MICROBIOLOGY - GEN ERAL ORDERABLES Final Result [facility] [address] [place] [address] documented in this encounter Visit Diagnoses Diagnosis Encounter for general adult medical examination without abnormal findings documented in this encounter Additional Health Concerns Assessment Noted Time A Body Mass Index follow-up plan has been documented for the patient 03/02/2025 1:29 PM EDT documented as of this encounter Care Teams Business Transformation Analyst Relationship Specialty Start Date End Date Kiera Castro APRN [address] [place] [address] PCP - General 02/17/25 Lucero Stafford LPN [employer] [place] [address] TCM Nurse 04/01/25 05/01/25 documented as of this encounter
== END 2025-05-03 23:59 | disposition home or self-care (01) ==
LOC: RT 10:28
PROVIDERS: PCP Nurse Practitioner Family; Visit Provider Physician Assistant
DX: I49.1 Atrial premature depolarization (principal); I49.3 Ventricular premature depolarization; I48.0 Paroxysmal atrial fibrillation; I10 Essential (primary) hypertension; I25.10 Atherosclerotic heart disease of native coronary artery without angina pectoris; Z95.2 Presence of prosthetic heart valve
CPT/HCPCS: 93270

== ENCOUNTER 2025-05-13 13:36 | Outpatient (CLI) | payer MEDICARE, OTHER, SELFPAY ==
--- OUTSIDE RECORDS SUMMARY | 2025-03-12 03:36 | XMS_ITS | Encounter Summary ---
Author Organization Healthcare Address [address] [id number] Care Team Providers Care Rabbet Operator Name Role Phone Kiera Castro APRN Primary Care Provider [phone] Reason for Visit * Reason Comments Chest Pain * Auth/Cert (Routine) Specialty Diagnoses / Procedures Referred By Contac t Referred To Contact Diagnoses Atrial fibrillation (CMS/HCC) Gluteal abscess Elevated troponin Chest pain, unspecified type Consult cards - 3 wk post CABG, chest pain Lata Sahu MD [address] [address] Phone: tel: fax: [facility] [address] [place] [address] Phone: tel: Referral ID Status Reason Start Date Expiration Date Visits Re quested Visits Authorized [id number] 1 1 Encounter Details Date Type Department Care Team (Latest Contact Info) Description 03/12/2025 3:36 AM EDT - 03/17/2025 2:43 PM EDT Hospital Encounter [facility] [address] [place] [id number] Sloane Jones MD [address] [place] [address] Lata Sahu MD [address] [address] Gluteal abscess (Primary Dx); Chest pain, unspecified type; Elevated troponin; Persistent atrial fibrillation (CMS/HCC) Discharge Disposition: Home or Self Care Social History Tobacco Use Types Packs/Day Years Used Date Smoking Tobacco: Former Cigarettes Smokeless Tobacco: Never Alcohol Use Standard Drinks/Week Comments Not Currently 0 (1 standard drink = 0.6 oz pur e alcohol) Humiliation, Afraid, Rape, and Kick questionnair e Answer Date Recorded Within the last year, have y ou been afraid of your partner or ex-partner? No 03/27/2025 Within the last year, have y ou been humiliated or emotionally abused in other ways by your partner or ex-partner? No Within the last year, have y ou been kicked, hit, slapped, or otherwise physically hurt by your partner or ex-partner? No 03/27/2025 Within the last year, have y ou been raped or forced to have any kind of sexual activity by your partner or ex-partner? No 03/27/2025 Hunger Vital Sign Answer Date Recorded Within the past 12 months, y ou worried that your food would run out before you got the money to buy more. Never true 03/27/20 25 Within the past 12 months, t he food you bought just didn't last and you didn't have money to get more. Never true 03/27/2025 PRAPARE - Transportation Answer Date Re corded In the past 12 months, has l ack of transportation kept you from medical appointments or from getting medications? No 03/11 In the past 12 months, has l ack of transportation kept you from meetings, work, or from getting things needed for daily living? No 03/27/2025 Housing Stability Vital Sign Answer Guillaume e Recorded In the last 12 months, was t here a time when you were not able to pay the mortgage or rent on time? No 04/06/2025 In the past 12 months, how m any times have you moved where you were living? 1 04/06/2025 At any time in the past 12 m [facility], were you homeless or living in a usp (including now)? No 04/06/2025 Utilities Answer Date Recorded In the past 12 months has th e St[employer], gas, oil, or water [employer] threatened to shut off services in your home? No 03/27/2025 Sex and Gender Information Value Date Recorded Sex Assigned at Not on file Legal Sex Male 8:34 PM EDT Gender Identity Not on file Sexual Orientation Not on file documented as of this encounter Last Filed Vital Signs Vital Sign Reading Time Taken Comments Blood Pressure 116/71 03/17/2025 11:06 AM EDT Pulse 70 03/17/2025 11:06 AM EDT Temperature 37.4 C (99.3 F) 03/17/2025 11:06 AM EDT Respiratory Rate 18 03/17/2025 11:06 AM EDT Oxygen Saturation 95% 03/17/2025 11:06 AM EDT Inhaled Oxygen Concentration - - Weight 98.8 kg (217 lb 13 oz) 03/17/2025 4:38 AM EDT Height 180.3 cm (5' 11 ) 03/12/2025 3:42 AM EDT Body Mass Index 30.38 03/12/2025 3:42 AM EDT documented in this encounter Functional Status * Calculated C-SSRS Risk Score (Lifetime/Recent) Answer Date of Assessment Author No Risk Indicated 03/31/2025 7:24 AM EDT Sally Murdock RN * Question Answer Date of Assessment Author 1. Wish to be (Past 1 Month) No 025 7:24 AM EDT Sally Higgins RN 2. Non-Specific Active Suici prabhakar Thoughts (Past 1 Month) No 03/31/2025 7:24 AM EDT Kiley Higgins RN 6. Suicidal Behavior (Lifetime) No 7:24 AM EDT Sally Higgins RN documented as of this encounter Discharge Instructions * Discharge Instructions* Kayce Howe RN - 03/17/2025 11:24 AM EDT Two times a day, irrigate (wash-out) wound with normal saline flush. Pack with Dakin's (sodium hypochlorite) solution (provided) moist 1inch/1/2 inch nu-gauze. Apply barrier spray to leslie-wound/surrounding skin, let dry. Cover wound with dry dressing (pink pedals included on discharge) documented in this encounter Medications at Time of Discharge acetaminophen (Tylenol) 325 MG tablet Take 2 tablets by mouth every 6 hours as needed for pain, headaches or fever. Under [place] law, monthly prescriptions (30 days) can be refilled at 25 days and three-month prescriptions (90 days) at 80 days. Please contact the insurance company with questions if refills are denied. 100 tablet 03/02/2025 apixaban (Eliquis) 5 MG tablet Take 1 tablet by mouth 2 (two) times a day. 60 tablet 3 03/02/2025 aspirin 81 MG chewable tablet Chew 1 tablet daily. 30 tablet 3 03/03/2025 07/01/20 25 atorvastatin (Lipitor) 80 MG tablet Take 1 tablet by mouth nightly. 30 tablet 3 03/02/2025 06/30/20 25 docusate sodium (Colace) 100 MG capsule Take 1 capsule by mouth 2 times a day. famotidine (Pepcid) 20 MG tablet Take 1 tablet by mouth 2 times a day. metoprolol tartrate (Lopressor) 50 MG tablet Take 1.5 tablets by mouth 2 times a day. 90 tablet 2 03/17/2025 03/17/20 26 mometasone-formot radha (Dulera 100) 100-5 MCG/ACT inhaler Inhale 2 puffs 2 (two) times a day. Rinse mouth with water after use to reduce aftertaste and incidence of candidiasis. Do not swallow. 13 g 3 03/02/2025 naloxone (Narcan) 4 mg/0.1 mL nasal spray 1. Give 1 spray in nostril for no/slow breathing or cannot wake after opioid use 2. Call 911 3. Repeat in other nostril if symptoms continue 1 each 03/02/2025 Tiotropium [place] Monohydrate (Spiriva Respimat) 2.5 MCG/ACT inhaler Inhale 2 puffs daily. 4 g 3 03/03/2025 senna (Senokot) 8.6 MG tablet Take 1 tablet by mouth nightly. 30 tablet 03/17/2025 04/16/20 25 amiodarone (Pacerone) 200 MG tablet Take 2 tablets by mouth 2 (two) times a day for 1 day, THEN 1 tablet daily. 34 tablet 2 03/02/2025 03/31/20 25 amoxicillin-clavu lanate XR (Augmentin XR) 1000-62.5 MG 12 hr tabletIndications :Gluteal abscess Take 2 tablets by mouth every 12 hours for 14 days. 56 tablet 03/17/2025 03/31/20 25 doxycycline (Vibra-Tabs) 100 MG tabletIndications :Gluteal abscess Take 1 tablet by mouth 2 times a day for 14 days. Take with a full glass of water and do not lie down for at least 30 minutes after. 28 tablet 03/17/2025 03/31/20 25 furosemide (Lasix) 40 MG tablet Take 1 tablet by mouth daily. 30 tablet 03/03/2025 03/27/20 25 oxyCODONE (Roxicodone) 5 MG immediate release tablet Take 1 tablet by mouth every 6 hours as needed for severe pain or moderate pain for up to 3 days. 12 tablet 03/17/2025 03/27/20 25 potassium chloride CR (Klor-Con M20) 20 MEQ ER tablet Take 1 tablet by mouth daily. Do not crush or chew. 30 tablet 03/02/2025 03/31/20 25 sodium hypochlorite (Dakin's, QUARTER-Strength, ) external solution Apply 473 mL topically 2 times a day. 473 mL 03/17/2025 03/27/20 25 documented as of this encounter Miscellaneous Notes * Progress Notes - Iris Worthington RN - 03/17/2025 11:22 AM EDT Case Management Discharge Note Shelly Nelson 64 y.o. male CSN: [id number] Admission: 03/12/2025 3:36 AM Primary Problem: Atrial fibrillation (CMS/HCC) Primary Multimedia Manager: Primary Caregiver: Self Assistance Available at Discharge: Current Outpatient/Agency/Support Group: DME Availability of Care Givers (#Hours): No assistance needed Family/Multimedia Manager(s) Willingness Assessed to care for patient at home: Yes Family/Multimedia Manager(s) Readiness Assessed to care for patient at home: Yes Housing Circumstances-Z Codes: Housing Circumstances (select all that apply): None Applicable Patient Referred to Financial or Community Resources: Financial Resources: Other (Comment) (n/a) Discharge Facility/Level of Care Needs: Discharge Facility/Level of Care Needs: 1-Home or Self Care Patient's Choice of Community Agency(s): Patient's Choice of Community Agency(s): n/a Patient/Family Anticipated Services at Transition: Patient/Family Anticipated Services at Transition: none DME/Equipment Needed after Discharge: Equipment Currently Used at Home: walker, rollator Equipment Needed After Discharge: none Readmission Within the Last 30 Days: Readmission Within the Last 30 Days: previous discharge plan unsuccessful Medicare Documentation: Medicare Second Notice?: No Follow-up: Bianca Rinaldi MD [address] [place] [address] Discharge Transportation: Transportation Anticipated: family or friend will provide Transportation Home at Discharge: Family/Friend will Provide Follow Up Transport: Transportation Needed to Follow up Appoinments: Family/Friend will Provide Additional Comments: Per primary team patient is medically appropriate for discharge. Cm sent referral for wound care supplies [facility]. Confirmed with sister that she would be able to perform the dressing changes. Patient is agreeable with discharge plan. No CM/SW needs identified. Neighborsto transport upon discharge. Update: CM placed referral with [facility] for wound care supplies. Iris Worthington RN * Discharge Summary - Mellisa Tian APRN - 03/17/2025 11:09 AM EDT Hospitalization Admit Date/Time: 03/12/2025 3:36 AM Admitting Attending: Lata Sahu Discharge Date: 03/17/2025 Discharge Attending Physician: Lata Sahu MD PCP name and Address: Kiera Castro, ZANA [address] / [place] [address] Referring provider name and address: Bianca Rinaldi MD [address] [place] [address] Chief Concern, Brief History of Present Illness, and Hospital Course Mr. Shelly Nelson is a 64 year old male with PMH significant for hyperlipidemia, hypertension, COPD, GERD, carotid artery disease, tobacco abuse, cataracts, cervical radiculopathy, and CAD s/p CABG x4 on 02/21/25. He was discharged to home on 03/02/25. He presented to [facility] ED with chest pain that began 2 days ago. He reported intermittent pain that did not radiate and describe pain as a dull ache, he said the pain was different than prior to surgery. He denied fever, chills, headache and any other symptoms. He was in atrial fibrillation with RVR on arrival and is currently in rate controlled atrial fibrillation with no symptoms. He was admitted to observation status. Surgeries and Procedures Procedures performed in this encounter Procedures Electrical Cardioversion Incision and Drainage Medication List .. acetaminophen 325 MG tablet Commonly known as: Tylenol Take 2 tablets by mouth every 6 hours as needed for pain, headaches or fever. Under [place] law, monthly prescriptions (30 days) can be refilled at 25 days and three-month prescriptions (90 days) at80 days. Please contact the insurance company with questions if refills are denied. amiodarone 200 MG tablet Commonly known as: Pacerone Take 2 tablets by mouth 2 (two) times a day for 1 day, THEN 1 tablet daily. Start taking on: March 02, 2025 amoxicillin-clavulanate XR 1000-62.5 MG 12 hr tablet Commonly known as: Augmentin XR Take 2 tablets by mouth every 12 hours for 14 days. apixaban 5 MG tablet Commonly known as: Eliquis Take 1 tablet by mouth 2 (two) times a day. aspirin 81 MG chewable tablet Chew 1 tablet daily. atorvastatin 80 MG tablet Commonly known as: Lipitor Take 1 tablet by mouth nightly. docusate sodium 100 MG capsule Commonly known as: Colace Take 1 capsule by mouth 2 times a day. doxycycline 100 MG tablet Commonly known as: Vibra-Tabs Take 1 tablet by mouth 2 times a day for 14 days. Take with a full glass of water and do not lie down for at least 30 minutes after. famotidine 20 MG tablet Commonly known as: Pepcid Take 1 tablet by mouth 2 times a day. furosemide 40 MG tablet Commonly known as: Lasix Take 1 tablet by mouth daily. metoprolol tartrate 50 MG tablet Commonly known as: Lopressor Take 1.5 tablets by mouth 2 times a day. mometasone-formoterol 100-5 MCG/ACT inhaler Commonly known as: Dulera 100 Inhale 2 puffs 2 (two) times a day. Rinse mouth with water after use to reduce aftertaste and incidence of candidiasis. Do not swallow. naloxone 4 mg/0.1 mL nasal spray Commonly known as: Narcan 1. Give 1 spray in nostril for no/slow breathing or cannot wake after opioid use 2. Call 911 3. Repeat in other nostril if symptoms continue oxyCODONE 5 MG immediate release tablet Commonly known as: Roxicodone Take 1 tablet by mouth every 6 hours as needed for severe pain or moderate pain for up to 3 days. potassium chloride CR 20 MEQ ER tablet Commonly known as: Klor-Con M20 Take 1 tablet by mouth daily. Do not crush or chew. senna 8.6 MG tablet Commonly known as: Senokot Take 1 tablet by mouth nightly. sodium hypochlorite external solution Commonly known as: Dakin's (QUARTER-Strength) Apply 473 mL topically 2 times a day. Tiotropium [place] Monohydrate 2.5 MCG/ACT inhaler Commonly known as: Spiriva Respimat Inhale 2 puffs daily. Where to Get Your Medications These medications were sent to [facility] - [place], [place] - [address] [facility] [facility] [id number] amoxicillin-clavulanate XR 1000-62.5 MG 12 hr tablet doxycycline 100 MG tablet metoprolol tartrate 50 MG tablet oxyCODONE 5 MG immediate release tablet senna 8.6 MG tablet sodium hypochlorite external solution Discharge Diagnosis Atrial fibrillation with RVR (POA) - continue amiodarone 200 mg daily - continue metoprolol 100 mg TID - continue apixaban - currently rate controlled afib - 03/15: rates in 120s, EP consulted for assist with rate control - 03/16: DCCV completed with conversion to NSR - 03/17: maintaining NSR Pleural effusions (POA) Volume overload (POA) - admission weight 101 kg; BNP 4,711 - daily weights/I&Os - CXR prn - diuresis prn - 03/17: weight 98.8 kg; BNP 2,670 Acute blood loss anemia (POA) Iron deficiency anemia (POA) - H/H 7.5/24.2 on admission - monitor and transfuse for Hgb < 7 - 03/12: 1 unit PRBCs transfused - 03/13: H/H 8.0/24.8; iron 26, transferrin 248, transferrin sat 8, TIBC 310 - 03/14: H/H 8.6/27.5; IV iron started 03/13 for 5 dose duration; 1 unit PRBCs yesterday - 03/15: H/H 8.3/26.6 - 03/16: H/H 7.9/25.2 - 03/17: H/H 7.6/25.0 Hyponatremia (POA) - fluid restriction Hypocalcemia (POA) - monitor and replete prn Gluteal abscess (POA) - general surgery consulted - abscess drained at bedside per general surgery on 03/12 - no indication for OR and no indication for antibiotics per GS - culture growing gram negative rods - ceftriaxone started, ID consulted - wound care for dressing changes - please see ID note 03/16 for new ABX discharge recs CAD (POA) S/p CABG and bAVR on 02/21/2025 NSTEMI 02/2025 - ASA, statin, BB - Routine post cardiac surgery care: sternal precautions x 6 weeks, PT, bowel regimen to prevent constipation and aggressive pulmonary toilet. COPD (POA) - continue dulera and spiriva Hypertension (POA) - metoprolol now 100 mg BID for rate control - lisinopril Dced due to soft BP Hyperlipidemia (POA) - statin BPH (POA) - no home meds, tamsulosin discontinued prior to admission due to uncontrolled bladder GERD (POA) - continue home famotidine Tobacco abuse (POA) - NRT prn - Cessation counseling - 1.5 PPD; 78 pack year history - Complicates all aspects of care Obesity (POA) - BMI 30.62 - complicates all aspects of care Leukocytosis (POA) (resolved) Plan: Discharge to home today. Brother and sister planning to assist with dressing changes. Wound supplies sent with patient with wound care instructions. Cardiothoracic Surgery Post Discharge Instructions See AVS Outpatient Follow-Up Future Appointments Date Time Provider Department Center 03/24/2025 9:30 AM Lata Sahu MD [facility] Test Results Pending At Discharge None Pertinent Physical Exam At Time of Discharge GENERAL: Well developed, well nourished. No acute distress. EYES: No scleral icterus or conjunctivitis HENT: Atraumatic, normocephalic, nares patent, mucus membranes moist NECK: Supple, no evidence of bruit bilaterally RESP/CHEST: Clear to auscultation bilaterally, decreased in bases, with symmetric expansion; non labored. Sternum stable, sternotomy as noted below. CARD: RRR. S1S2. No murmur, rub, or gallop. No JVD. Trace bilateral lower extremity edema. Pedal pulses palpable +2. Extremities: No cyanosis or clubbing. GI: Soft, nontender, nondistended. BS present and normoactive x 4 quadrants SKIN: No rash, sores, lesions or subcutaneous nodules. Midsternal incision healing well, CDI. NEURO: AAOx4. Motor intact and no focal deficits PSYCH: Mood and affect congruent and appropriate to situation. Discharge Disposition/Condition Disposition: Home Condition: Stable (s/sx potential problems absent or manageable) I spent >30 minutes of patient care and instruction time in preparation for this discharge. Cosigned by Lata Sahu MD at 03/18/2025 5:27 PM EDT Associated attestation - Lata Sahu MD - 03/18/2025 5:27 PM EDT Signature only. * Care Plan - Apple Santo RN - 03/16/2025 11:42 PM EDT Problem: Adult Inpatient Plan of Care Goal: Plan of Care Review Outcome: Ongoing, Progressing Flowsheets (Taken 03/16/2025 6601) Progress: improving Plan of Care Reviewed With: patient Problem: Adult Inpatient Plan of Care Goal: Patient-Specific Goal (Individualized) Outcome: Ongoing, Progressing Flowsheets (Taken 03/16/20251999) Patient/Family-Specific Goals (Include Timeframe): Pt will remain free from injury for remainder ofshift Individualized Care Needs: Safety Anxieties, Fears or Concerns: None stated * Care Plan - Tammy Wood RN - 03/16/2025 5:49 PM EDT Problem: Adult Inpatient Plan of Care Goal: Plan of Care Review Outcome: Ongoing, Progressing Goal: Patient-Specific Goal (Individualized) Outcome: Ongoing, Progressing Goal: Absence of Hospital-Acquired Illness or Injury Outcome: Ongoing, Progressing Goal: Optimal Comfort and Wellbeing Outcome: Ongoing, Progressing Goal: Readiness for Transition of Care Outcome: Ongoing, Progressing Problem: Infection Goal: Absence of Infection Signs and Symptoms Outcome: Ongoing, Progressing Problem: Fall Injury Risk Goal: Absence of Fall and Fall-Related Injury Outcome: Ongoing, Progressing Problem: Dysrhythmia Goal: Normalized Cardiac Rhythm Outcome: Ongoing, Progressing * Progress Notes - Gerardo Maher MD - 03/16/2025 3:59 PM EDT Infectious Disease Bone And Joint Consult Team - Followup S: S/p ECV today -- now in NSR. Tolerating Zosyn. ROS: Positive as above per HPI. Otherwise, 14 systems reviewed and negative. MEDS: ABX: Zosyn 03/15/2025 - current Ceftriaxone 03/15/2025 OTHERS: For full list, see MAR. [Current Medications] [Current Medications] Current Facility-Administered Medications: acetaminophen (Tylenol) tablet 650 mg, 650 mg, Oral, q6h PRN, Gerardo Mendoza MD, 650 mg at 03/13/25 0829 amiodarone (Pacerone) tablet 200 mg, 200 mg, Oral, Daily, Master Nova MD, 200 mg at 03/16/25 0843 apixaban (Eliquis) tablet 5 mg, 5 mg, Oral, BID, Master Nova MD, 5 mg at 03/16/25 0843 aspirin chewable tablet 81 mg, 81 mg, Oral, Daily, Master Nova MD, 81 mg at 03/16/25 0843 atorvastatin (Lipitor) tablet 80 mg, 80 mg, Oral, Nightly, Master Nova MD, 80 mg at 03/15/25 2045 atropine syringe 1 mg, 1 mg, Intravenous, Once, Marily Garcia APRN bisacodyl (Dulcolax) suppository 10 mg, 10 mg, Rectal, Daily PRN, Mellisa Tian APRN, 10 mg at 03/13/25 1838 calcium carbonate (Tums) chewable tablet 500 mg, 500 mg, Oral, q6h PRN, Master Nova MD docusate sodium (Colace) capsule 100 mg, 100 mg, Oral, BID, Master oNva MD, 100 mg at 03/16/25 0843 famotidine (Pepcid) tablet 20 mg, 20 mg, Oral, BID, Master Nova MD, 20 mg at 03/16/25 0843 flumazenil (Romazicon) injection 0.5 mg, 0.5 mg, Intravenous, Once, Marily Garcia APRN furosemide (Lasix) tablet 40 mg, 40 mg, Oral, Daily, Marily Garcia APRN, 40 mg at 03/16/25 1030 ipratropium-albuterol (Duo-Neb) 0.5-2.5 mg/3 mL nebulizer solution 3 mL, 3 mL, Nebulization, q4h PRN, Mellisa Tian APRN iron sucrose (Venofer) injection 200 mg, 200 mg, Intravenous, Daily, Mellisa Tian APRN, 200 mg at03/16/25 0846 magnesium hydroxide (Milk of Magnesia) 400 MG/5ML suspension 30 mL, 30 mL, Oral, Daily PRN, Mellisa Tian APRN, 30 mL at 03/13/25 1421 metoprolol tartrate (Lopressor) tablet 50 mg, 50 mg, Oral, BID, Marily Garcia APRN mometasone-formoterol (Dulera 100) 100-5 MCG/ACT inhaler 2 puff, 2 puff, Inhalation, BID, Master Nova MD, 2 puff at 03/16/25 0843 naloxone (Narcan) injection 0.08 mg, 0.08 mg, Intravenous, Once, Marily Garcia, 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 STITCH 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 nitroglycerin (Nitrostat) SL tablet 0.4 mg, 0.4 mg, Sublingual, q5 min PRN, Master Nova MD oxyCODONE (Roxicodone) immediate release tablet 5 mg, 5 mg, Oral, q6h PRN, Mellisa Tian APRN, 5 mg at 03/16/25 1029 piperacillin-tazobactam (Zosyn) 4.5 g in sodium chloride 0.9% 100 mL IVPB (vial adapter required), 4.5 g, Intravenous, q6h, Mellisa Tian APRN, Last Rate: 36.7 mL/hr at 03/16/25 1315, 4.5 g at 03/16/25 1315 polyethylene glycol (Miralax) packet 17 g, 17 g, Oral, Daily, Mellisa Tian APRN, 17 g at 843 potassium chloride CR (Klor-Con) ER tablet 20 mEq, 20 mEq, Oral, Daily, Marily Garcia APRN, 20 mEq at 03/16/25 1030 senna (Senokot) tablet 17.2 mg, 17.2 mg, Oral, Nightly, Master Nova MD, 17.2 mg at 03/15/252044 simethicone (Mylicon) chewable tablet 80 mg, 80 mg, Oral, 4x daily PRN, Master Nova MD Insert peripheral IV, , , Once AND Saline lock IV, , , Once AND sodium chloride 0.9 % flush10 mL, 10 mL, Intravenous, q12h, 10 mL at 03/15/25 0929 AND sodium chloride 0.9 % flush 10 mL, 10 mL, Intravenous, PRN, Master Nova MD sodium hypochlorite (Dakin's (QUARTER-Strength)) external solution 473 mL, 1 Application, Irrigation, BID, Lata Sahu MD, 473 mL at 03/15/252046 Tiotropium [place] Monohydrate (Spiriva Respimat) 2.5 MCG/ACT inhaler 2 puff, 2 puff, Inhalation, Daily, Master Nova MD, 2 puff at 03/16/25 0843 PE: Visit Vitals BP 123/63 (BP Location: Right arm, Patient Position: Lying) Pulse 73 Temp 36.5 ??C (97.7 ??F) (Oral) Resp 18 Ht 1.803 m (5' 11 ) Wt 99.6 kg (219 lb 9.3 oz) SpO2 95% BMI 30.62 kg/m?? Smoking Status Former BSA 2.23 m?? GEN: NAD HEENT: PERRL; EOMI; MMM Neck: Supple Chest: Healing well Heart: RRR, nl S1/S2 Pulmonary: CTAB ABD: Soft, NT, ND. +BS. Back: No gross deformity EXT: No cyanosis, clubbing, edema. Gluteus dressed; pics reviewed Skin: WNL. No rashes. NEURO: Awake, alert, oriented. Cranial nerves grossly WNL. PSYCH: Appropriate. LINES: No central lines. LABS: LABS REVIEWED Labs in last 18 hours CBC WBC 8.58 Hb 7.9 (L) Plt 227 Hct 25.2 (L) ANC ?? INR ??, PTT ??, Anti-Xa ?? BMP Na 131 (L) Cl 100 BUN 20 Glu 135 (H) K 4.1 Co2 21 (L) Cr 0.82 Ca 8.1 (L) iCa ?? Mg 1.9, Phos ?? Lactate ?? LFT AST 50 AlkPhos 88 T Prot 5.4 (L) ALK 33 Bili 0.9 Alb ?? D.Bili ?? MICRO: MICRO REVIEWED. FOR ALL STUDIES, SEE EHR 02/21/2025 HIV christiana negative 02/21/2025 HCV christiana negative; PCR negative; GT negative. HBV PCR negative; JAZMIN POSITIVE; SAG negative; core IGG-IGM negative. 03/12/2025 Subcutaneous skin (specify site); Swab (R glut?)(bedside I&D?) - GS - GPC; GDC. Cx - E. coli x2; [place] turicensis (Actinomyces turicensis.) Escherichia coli (1) Escherichia coli (3) DUSTIN DUSTIN Amikacin <=8 ug/ml Susceptible * <=8 ug/ml Susceptible * Amingoglycoside Class 1 * 0 * Amoxicillin/Clavulanate 8/4 ug/ml Susceptible * <=4/2 ug/ml Susceptible * Ampicillin >16 ug/ml Resistant >16 ug/ml Resistant Ampicillin/Sulbactam 16/8 ug/ml Intermediate >16/8 ug/ml Resistant Aztreonam <=2 ug/ml Susceptible <=2 ug/ml Susceptible Beta-Lactamase Class 1 * 1 * Carbapenem Class 1 * 1 * Cefazolin 2 ug/ml Susceptible 2 ug/ml Susceptible Cefepime <=0.5 ug/ml Susceptible <=0.5 ug/ml Susceptible Cefoxitin <=4 ug/ml Susceptible * <=4 ug/ml Susceptible * Ceftazidime <=2 ug/ml Susceptible * <=2 ug/ml Susceptible * Ceftazidime/Avibactam <=0.25/4 ug/ml Susceptible * <=0.25/4 ug/ml Susceptible * Ceftolozane/Tazobactam <=1/4 ug/ml Susceptible * <=1/4 ug/ml Susceptible * Ceftriaxone <=1 ug/ml Susceptible <=1 ug/ml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 other conditions in the body that affect the heart. They include: ?? Coronary artery disease (atherosclerosis), sometimes called blocked arteries ?? High blood pressure ?? Disease of the heart valves ?? Enlarged heart ?? Heart failure Atrial fibrillation can also occur without heart disease because of: ?? Overactive thyroid (hyperthyroid) ?? Chronic lung disease (COPD, emphysema, or bronchitis) ?? Heavy alcohol use ?? Heart stimulants, such as cocaine, amphetamines, diet pills, certain decongestant cold medicines, caffeine, or nicotine ?? Infection ?? Blood clot in the lung (pulmonary embolus) ?? Diabetes ?? Chronic kidney disease ?? Obesity ?? Obstructive sleep apnea ?? Extreme and continued athletic conditioning ?? Certain genetic diseases Treating or removing these causes will help your treatment for atrial fibrillation. It will also make it less likely for it to come back. Atrial fibrillation can alternate back and forth with another abnormal rhythm called atrial flutter. Atrial flutter is a more regular heart rhythm. It is also linked to an increased risk for stroke. Correct treatment of these arrhythmias can lower your risk for stroke. Home care Follow these guidelines when caring for yourself at home: ?? Go back to your usual activities as soon as you are feeling back to normal. ?? If you smoke, stop smoking. Contact your healthcare provider or a local stop- smoking program forhelp. ?? Don't use stimulants like alcohol, cocaine, amphetamines, diet pills, certain decongestant cold medicines, caffeine, or nicotine. ?? If your provider prescribed medicine to stop atrial fibrillation from coming back, take it exactly as directed. Some medicines must be taken every day, not just when you have symptoms. This will help them work as they should. ?? If you were prescribed a blood-thinning medicine, take it exactly as prescribed. One of these medicines, called warfarin, needs your blood to be tested regularly as advised by your healthcare provider. This will make sure you are getting the dose that is right for you. It also lowers your risk for side effects. You may have been prescribed other blood-thinning medicines that don't need regulartesting. Follow-up care Follow up with your healthcare provider as advised. When to get medical care Call your healthcare provider if any of these occur: ?? Swelling in the legs that gets worse ?? Unexpected weight gain ?? Pain, redness, or swelling in 1 leg Call 911 Calling 911 is the fastest and safest way to get the emergency department. The paramedics can also start treatment on the way to the hospital, if needed. Call 911 or get medical help right away if any of these occur: ?? Weakness of an arm, leg, one side of the face ?? Chest pain ?? Shortness of breath, or feeling that you can't get enough air ?? Feeling lightheaded, faint, or dizzy ?? Your heartbeat is very fast, slow, or irregular compared with your regular heartbeat ?? Uncontrolled bleeding ?? Trouble with speech or vision ?? Extreme drowsiness, confusion, dizziness, or fainting Last Reviewed Date: 2022 00:00:00 ?? [id number] The [employer]. All rights reserved. This information is not intended as a substitute for professional medical care. Always follow your healthcare professional's instructions. * Ivonne HooperVIDYA - Ashley Menon RN - 03/15/2025 7:59 AM EDT Images from the original note were not included. 206 Heart Healthy Diet Understanding Fats, MyPlate, and the DASH Plan The facts on cholesterol Cholesterol is a fat like substance that supports the production of certain hormones. It is found in all foods of animal origin. We not only eat cholesterol, but we also produce it in our liver. Although cholesterol is important, a high blood cholesterol level can be harmful. An elevated cholesterol level can lead to atherosclerosis, which is when arteries become thickened or hard due to plaque buildup in an artery's inner lining. Atherosclerosis can lead to heart disease, strokes, and peripheral vascular disease. Certain risk factors such as an elevated cholesterol level, hypertension, cigarette smoking, lack of exercise, obesity, and a family history of heart disease increase one?s risk of developing atherosclerosis and heart disease. However, most of these risk factors can be controlled. The following dietary guidelines provide information on how to eat properly in order to reduce your risk of developing atherosclerosis. The facts on fats Polyunsaturated: These are considered beneficial fats in limited quantity. Main sources are safflower, sunflower, corn, soybean, and cottonseed oil. Usually liquid at room temperature, but start to turn solid when chilled. They can help to lower the level of blood cholesterol. Monounsaturated Fats: These are considered beneficial fat. Main sources are canola, olive, and peanut oils. They have been demonstrated to reduce the level of blood cholesterol. Saturated Fats: These fats raise blood cholesterol levels. These fats usually fats come from animalfoods, but some vegetable oils such as coconut, palm kernel, and palm oils are saturated. Hydrogenated Fats (also called trans fats): These are considered saturated fats. They are chemically changed from liquid fat to solid fat and can be categorized as partially hydrogenated or hydrogenated. Hydrogenated fats resemble saturated fats and should be avoided. Examples include margarines, shortenings, and regular peanut butter (when liquid oil is not the first ingredient). Guidelines: ?? Reduce saturated fat and trans fat intake. ?? Choose polyunsaturated and monounsaturated fats in place of saturated fats or trans fats, as these are considered healthy fat. ?? Limit sodium intake. ?? Increase intake of fiber and complex carbohydrates such as vegetables, fruits, dried beans and peas, and whole grain cereals and breads. Milk and milk products Choose: Milk and milk products with 1% or less milk fat: ?? Skim (liquid, powdered or evaporated) ? and 1% milk ?? Skim buttermilk ?? Low fat buttermilk ?? Non-fat yogurt and frozen dessert ?? Frozen low-fat yogurt ?? Ice milk Low fat cheese containing 3 gms of fat or less per ounce: ?? Walters?s cheese ?? Upton?s cheese ?? Part skim mozzarella cheese ?? Ricotta cheese ?? Low-fat cottage cheese ?? Dry curd cottage cheese Always try to buy low-fat dairy products when you can, and always read the labels! Avoid: Milk and milk beverages as listed: ?? 2% milk ?? Whole milk ?? Chocolate milk and chocolate drinks ?? Evaporated or condensed whole milk ?? Malted milk ?? Milkshakes ?? Eggnog Milk products as listed: ?? Regular Cream ?? Sour cream ?? Half and half cream ?? Whipped topping containing coconut or palm oil Cheeses containing more than 5 grams of fat per ounce: ?? Cream cheese ?? Creamed cottage cheese ?? Natural and processed cheeses such as [place]ian, blue, mozzarella, and Cymro Meat and protein substitutes Special instructions: ?? Trim excess fat prior to cooking. ?? Remove skin of chicken prior to cooking. ?? Choose poultry and fish more often than red meat. Red meat includes beef, pork, gomez, and veal. When you do eat red meat, choose leaner cuts when possible, such as lean ground beef (93/7, 90/10, 85/15), etc. ?? Skim the fat from meat juices before adding to stews, soups, and gravy. ?? Chilling the meat juices will cause the fat to harden for easier removal. ?? To extend meat, use as part of a casserole or mixed with vegetables, rice, or pasta. Choose: ?? Fish ?? Shellfish ?? Water - packed canned tuna or salmon ?? Poultry without skin ?? Beef and pork, lean cuts ?? Veal ?? Lentils ?? Legumes ?? Dried beans and peas ?? Egg substitute ?? Dried or chipped beef ?? Luncheon meats with less than 3 grams fat per ounce ?? Eggs ?? Gomez lean cuts ?? Natural peanut butter ?? Soy and texturized protein Avoid: ?? Regular ground beef ?? Marbled prime grade and fatty meats ?? Spare ribs ?? Hein ?? Hot dogs ?? Sausages ?? High fat luncheon meat ?? Cold cuts ?? Fatty corned beef ?? Goose ?? Duck ?? Poultry skin ?? Fish canned in oil or fried ?? Dried beans prepared with salt pork ?? Caviar ?? Organ meats (heart, liver, brains, kidney) ?? Sweet breads ?? Commercially fried foods ?? Canned or frozen meats with gravy or sauces ?? Frozen packaged convenience entrees containing more than 10 grams fat per serving ?? Other frozen or packaged foods containing more than 3 grams fat per serving Breads, cereals, and grains Choose: ?? Oat bran ?? Oat meal ?? Whole wheat ?? [place] ?? Pumpernickel ?? White ?? Raisin ?? Crackers prepared without butter, lard, coconut, or palm oil ?? Dry cereals that contain allowed fats ?? Rice and pasta prepared with allowed fats ?? Egg noodles (limit to ?? cup per day) ?? British ?? Iranian ?? Croatian muffins ?? Pancakes, waffles, biscuits, and cornbread made with allowed ingredients ?? Flat bread ?? Ash crackers ?? Matzoh crackers ?? Whole grain or enriched cereals prepared with allowed oils ?? Wheat germ Avoid: ?? Egg or cheese bread ?? Butter rolls ?? Commercially prepared products: biscuits, muffins, sweet rolls, cornbread, pancakes and waffles,faroese toast, croissants ?? Noodles ?? Cheese crackers ?? Flavored crackers prepared with saturated fats ?? Any cereal prepared with saturated fat ?? Finnish noodles ?? Rice and pasta prepared with eggs, cream, or high fat cheese Fruits Choose: ?? Any fresh, frozen, canned, or dried fruit or juice ?? Avocado Vegetables Choose: ?? Any fresh, frozen, or canned vegetables ?? Potatoes prepared with allowed fat ?? Olives (limit to 10 small or 5 large per day) Avoid: ?? Buttered, creamed, or fried vegetables ?? [id number], commercially made ?? Vegetables prepared in a cheese sauce Soups Choose: ?? Bouillon and clear broth ?? Fat free vegetable soup ?? Dehydrated soups made with allowed fats Avoid: ?? Creamed soups ?? Soups made with whole milk, cream, butter, or meat fat Drinks Choose: ?? Coffee ?? Tea ?? Carbonated beverages (If drinking soda, choose the diet version) ?? Fruit drinks ?? Fruit and vegetable juice ?? Hot chocolate made from cocoa, skim milk, and allowed oils Avoid: ?? Beverages with cream ?? Commercial hot chocolate and chocolate drinks ?? Eggnog ?? Milkshakes ?? Alcohol (except with physician?s approval) Fats Special Instructions: Including healthy fats as part of our diets is essential to giving our bodiesenergy, supporting cell function, protecting our organs, and keeping our bodies warm. They also help our bodies to absorb some nutrients and produce important hormones. There are 9 calories in every gram of fat we eat, regardless of what type of fat it is. Some foods are higher in fat than others, such as nuts, mayonnaise, salad dressings, sandwich spreads, cooking oils, etc. When eating these foods that are higher in fat, it is important to be mindful of their serving sizes. For example, a serving of nuts is considered to be a small handful or 1.5 ounces of whole nuts, or 2 tbsp of nut butter. Some examples of these foods higher in fat and their serving sizes are listed below: ?? Nuts: The [place] [employer] recommends including 5 servings of nuts per week as part ofa healthy diet. Remember to count the hidden fats in bakery products and snack foods, fat used in cooking, or on vegetables and bread. o Almonds: 20-23 almonds, or ?? cup o Hazelnuts: ~21 hazelnuts, or ?? cup o Peanuts: ~28 shelled peanuts (i.e., not in the shell), or ?? cup o Pecans: ~15-19 pecan halves, or ?? cup o Pistachios:49 kernels of pistachio nut, or ?? cup ?? Walnuts: 14 walnut halves, or ?? cup ?? Nut butters, such as peanut butter: 2 tablespoons ?? Mayonnaise and sandwich spreads: 1 tablespoon ?? Reduced-calorie salad dressings: 2 tablespoons ?? Cooking oils, such as olive oil, butter, canola oil, avocado oil, etc.: 1 tablespoon o The [place] [employer] recommends limiting oils to 3 tablespoons, or 9 teaspoons, per day. Choose: ?? Liquid vegetable oils (canola, corn, cottonseed, peanut, olive, safflower, sunflower, soybean) ?? Margarines with no trans fat ?? Non-stick cooking sprays as desired ?? Butter imitations as desired ?? Commercial salad dressings prepared without cream or cheese ?? Mayonnaise Avoid: ?? Palm oil ?? Coconut oil ?? Butter ?? Lard ?? Salt pork ?? Hein ?? Meat drippings ?? Gravies and cream sauces unless made with allowed fat and/or skim milk ?? Sweet and sour milk ?? Whipped toppings ?? Artificial whipping cream ?? Half and half cream ?? Hydrogenated shortening ?? Salad dressings prepared from unknown or undesirable oils ?? Blue cheese salad dressing ?? Margarines with first ingredient listed as a hydrogenated oil ?? Filberts ?? Cashews ?? Macadamia nuts Sweets, desserts, and snacks Choose: ?? Fresh fruit ?? Dried fruits ?? Fruit ices ?? Sherbet ?? Gelatin ?? Fruit whips ?? Meringues ?? Animal crackers ?? Fig bars ?? Familia food cake ?? Cakes, pies, cookies, and frostings prepared with allowed ingredients ?? Sorbet ?? Ice milk ?? [place] ?? Gum drops ?? Jelly beans ?? Hard candy ?? Marshmallows ?? Plain sugar ?? Mints ?? Jam and jelly ?? Honey and syrups ?? Pretzels ?? Popcorn prepared with allowed oils ?? Low fat frozen yogurt ?? Popsicles Avoid: ?? Coconut ?? Chocolate ?? Commercial cakes, pies, cookies, and ice cream ?? Desserts prepared with whole milk, saturated fats, cheese, and/or egg yolks ?? [place] chips ?? Potato chips and other snack chip ?? Commercial and microwave popcorn prepared with undesirable oils ?? Coffee daryl (unless made with polyunsaturated fats) Understanding USDA MyPlate The USDA (US Department of Agriculture) has guidelines to help you make healthy food choices. Theseare called MyPlate. MyPlate shows the food groups that make up healthy meals using the image of a place setting. Before you eat, think about the healthiest choices for what to put onto your plate or into your cup or bowl. To learn more about building a healthy plate, visit www.choosemyplate.gov. The Food Groups ?? Fruits: Any fruit or 100% fruit juice counts as part of the Fruit Group. Fruits may be fresh, canned, frozen, or dried, and may be whole, cut-up, or pureed. Make half your plate fruits and vegetables. ?? Vegetables: Any vegetable or 100% vegetable juice counts as a member of the Vegetable Group. Vegetables may be fresh, frozen, canned, or dried. They can be served raw or cooked and may be whole, cut-up, or mashed. Make half your plate fruits and vegetables. ?? Grains: All foods made from grains are part of the Grains Group. These include wheat, rice, oats, cornmeal, and barley such as bread, pasta, oatmeal, cereal, tortillas, and grits. Grains should annabel more than a quarter of your plate. At least half of your grains should be whole grains. ?? Protein: This group includes meat, poultry, seafood, beans and peas, eggs, processed soy products (like tofu), nuts (including nut butters), and seeds. Make protein choices no more than a quarter of your plate. Meat and poultry choices should be lean or low fat. ?? Dairy: All fluid milk products and foods made from milk that contain calcium, like yogurt and cheese are part of the Dairy Group. (Foods that have little calcium, such as cream, butter, and cream cheese, are not part of the group.) Most dairy choices should be low-fat or fat-free. ?? Oils: These are fats that are liquid at room temperature. They include canola, corn, olive, soybean, and sunflower oil. Foods that are mainly oil include mayonnaise, certain salad dressings, and soft margarines. You should have only 5 to 7 teaspoons of oils a day. You probably already get this much from the food you eat. Use [employer] to Help Build Your Meals The [employer] can help you plan and track your meals and activity. You can look up individual foods to see or compare their nutritional value. You can get guidelines for what and how much you should eat. You can compare your food choices. And you can assess personal physical activities and see ways you can improve. Go to www.choosemyplate.gov/supertracker/. Eating Heart-Healthy Food: Using the DASH Plan Eating for your heart doesn?t have to be hard or boring. You just need to know how to make healthier choices. The DASH eating plan has been developed to help you do just that. DASH stands for DietaryApproaches to Stop Hypertension. It is a plan that has been proven to be healthier for your heart and to lower your risk for high blood pressure. It can also help lower your risk for cancer, heart disease, osteoporosis, and diabetes. Choosing from Each Food Group Choose foods from each of the food groups below each day. Try to get the recommended number of servings for each food group. The serving numbers are based on a diet of 2,000 calories a day. Talk to your doctor if you?re unsure about your calorie needs. Along with getting the correct servings, the DASH plan also recommends a sodium intake less than 2,300 mg per day. Grains Servings: 6-8 a day A serving is: ?? 1 slice bread ?? 1 ounce dry cereal ?? Half a cup cooked rice, pasta or cereal Best choices: Whole grains and any grains high in fiber. Vegetables Servings: 4-5 a day A serving is: ?? 1 cup raw leafy vegetable ?? Half a cup cut-up raw or cooked vegetable ?? Half a cup vegetable juice Best choices: Fresh or frozen vegetables prepared without added salt or fat. Fruits Servings: 4-5 a day A serving is: ?? 1 medium fruit ?? One-quarter cup dried fruit ?? Half a cup fresh, frozen, or canned fruit ?? Half a cup of 100% fruit juices Best choices: A variety of fresh fruits of different colors. Whole fruits are a better choice than fruit juices. Low-fat or Fat-free Dairy Servings: 2-3 a day A serving is: ?? 1 cup milk ?? 1 cup yogurt ?? One and a half ounces cheese Best choices: Skim or 1% milk, low-fat or fat-free yogurt or buttermilk, and low-fat cheeses. Lean Meats, Poultry, Fish Servings: 6 or fewer a day A serving is: ?? 1 ounce cooked meats, poultry, or fish ?? 1 egg Best choices: Lean poultry and fish. Trim away visible fat. Broil, grill, roast, or boil instead offrying. Remove skin from poultry before eating. Limit how much red meat you eat. Nuts, Seeds, Beans Servings: 4-5 a week A serving is: ?? One-third cup nuts (one and a half ounces) ?? 2 tablespoons nut butter or seeds ?? Half a cup cooked dry beans or legumes Best choices: ?Dry roasted? nuts with no salt added, lentils, kidney beans, garbanzo beans, and whole zamarripa beans. Fats and Oils Servings: 2-3 a day A serving is: ?? 1 teaspoon vegetable oil ?? 1 teaspoon soft margarine ?? 1 tablespoon mayonnaise ?? 2 tablespoons salad dressing Best choices: Nut and vegetable oils (nontropical vegetable oils), such as olive and canola oil. Sweets Servings: 5 a week or fewer A serving is: ?? 1 tablespoon sugar, maple syrup, or honey ?? 1 tablespoon jam or jelly ?? 1 half-ounce jelly beans (about 15) ?? 1 cup lemonade Best choices: Dried fruit can be a satisfying sweet. Choose low-fat sweets. And watch your serving sizes! For more on the DASH eating plan, visit: www.nhlbi.nih.gov/health/health-topics/topics/dash * Ivonne Avendaño - Ashley Menon RN - 03/15/2025 7:58 AM EDT Images from the original note were not included. [id number] Eating Heart-Healthy Foods Eating has a big impact on your heart health. In fact, eating healthier can improve several of yourheart risks at once. For instance, it helps you manage weight, cholesterol, and blood pressure. Here are ideas to help you make heart- healthy changes without giving up all the foods and flavors you love. Getting started ?? Talk with your healthcare provider about eating plans, such as the DASH or Mediterranean diet. You may also be referred to a dietitian. Ask a partner, family member, or friend to join you for mutual support. ?? Change a few things at a time. Give yourself time to get used to a few eating changes before adding more. ?? Work to create a tasty, healthy eating plan that you can stick to for the rest of your life. Goals for healthy eating Below are some tips to improve your eating habits: ?? Limit saturated fats and trans fats. Saturated fats raise your levels of cholesterol, so keep these fats to a minimum. They are found in foods such as fatty meats, whole milk, cheese, and palm andcoconut oils. Avoid trans fats because they lower good cholesterol as well as raise bad cholesterol. Trans fats are most often found in processed foods, such as pastries, cookies, pies, muffins, fried foods, stick margarines, and shortening. ?? Reduce how much sodium (salt) you have. Eating too much salt may increase your blood pressure. Limit your sodium intake to 2,300 milligrams (mg) per day (the amount in 1 teaspoon of salt), or lessif your healthcare provider recommends it. Dining out less often and eating fewer processed foods are two great ways to decrease the amount of salt you consume. At home, flavor your foods with other spices and herbs instead of salt. ?? Managing calories. A calorie is a unit of energy. Your body acosta calories for fuel, but if you eat more calories than your body acosta, the extras are stored as fat. Your healthcare provider or dietitian can help you create a diet plan to manage your calories. This will likely include eating healthier foods and getting regular exercise. To help you track your progress, keep a food diary to record what you eat and how often you exercise. Choose the right foods Aim to make these foods loida of your diet. If you have diabetes, you may have different recommendations than what is listed here: ?? Fruits and vegetables provide plenty of nutrients without a lot of calories. At meals, fill halfyour plate with these foods. Choose between fresh, frozen, canned, or dried fruits and vegetables without added sauces, salt, or sugars. Split the other half of your plate between whole grains and lean protein. ?? Whole grains are high in fiber and rich in vitamins and nutrients. Good choices include whole-wheat bread, pasta, oats, and brown rice. Make at least half of your grains whole grains. ?? Lean proteins give you nutrition with less fat. Good choices include fish, skinless chicken and turkey, and beans. Draining the fat from cooked ground meat is another way to reduce the amount of fat you eat. ?? Low-fat and nonfat dairy provide nutrients without a lot of fat. Try low-fat or nonfat milk, cheese, or yogurt. ?? Healthy fats can be good for you in small amounts. These are unsaturated fats, such as olive oil, avocado, nuts, and fish. Try to have at least 2 servings per week of fatty fish, such as salmon, sardines, mackerel, rainbow trout, and albacore tuna. These contain omega-3 fatty acids, which are good for your heart. Flaxseed and walnuts are other sources of heart-healthy fats. More on heart-healthy eating Read food labels Healthy eating starts at the grocery store. Be sure to pay attention to food labels on packaged foods. Look for products that are high in fiber and protein and low in saturated fat, added sugars, andsodium. Avoid products that contain trans fat. And pay close attention to serving size. For instance, if you plan to eat 2 servings, double all the numbers on the label. Prepare food right A kramer part of healthy cooking is cutting down on added fat, sugar, and salt. Look on the Internet for lower-fat, lower-sodium recipes without a lot of added sugars. Also try these tips: ?? Remove fat from meat and skin from poultry before cooking. ?? Skim fat from the surface of soups and sauces. ?? Broil, roast, boil, bake, steam, grill, or microwave food without added fats. ?? Choose ingredients that spice up your food without adding calories, fat, sugar, or sodium. Try these items: horseradish, hot sauce, lemon zest and juice, garlic, onion, mustard, nonfat salad dressings, and vinegar. Small amounts of olive oil-based vinaigrettes are OK, too. For salt-free herbs and spices, try basil, cilantro, cinnamon, cumin, paprika, pepper, and niels. Last Reviewed Date: 2022 00:00:00 ?? [id number] [employer]. All rights reserved. This information is not intended as a substitute for professional medical care. Always follow your healthcare professional's instructions. * Ivonne HooperVIDYA - Ashley Menon RN - 03/15/2025 7:58 AM EDT Images from the original note were not included. 1548 After Sternotomy: General Safety You need to protect your chest until it heals. Follow these rules 6-8 weeks after surgery, unless your doctor tells you otherwise. Basic safety steps: 1. When you move, keep your arms as close to your body as you can. 2. Do not push or pull with your arms. 3. Do not lift over 5-10 pounds. For example, a gallon of milk weighs about 10 pounds. 4. You can move your arms through your full range of motion. How to get out of bed Step 1: Lay flat with your arms crossed. Step 2: Roll to either side. Step 3: Kick your legs off the bed. Dig your elbow into the bed and use your stomach to start to sit. Step 4: Keep your arms across your chest as you move to sit. Step 5: Rest your arms on the bed next to your hips. OR rest your arms on your thighs. Step 6: Stand up. Do not use your hands! Do not do these moves when you get out of bed. Do not pull on a bed rail to sit up or lay down. Do not push up on the bed to stand with arms away from body. Do not pull on the bed rails to scoot. Do not do these when someone helps you get out of bed. Do not pull up with your arms to get out of bed. Do not pull up with the arms to get up or stand. How to open a door Correct Your arm should stay close to your body. Incorrect Do not move your arm away from your body to pull. How to walk with a cane Correct Keep your elbow close to your body. Incorrect Do not move your elbow away from your body. How to carry a bag Correct Keep your elbow close to your body. Incorrect Do not move your elbow away from your body. Correct Keep your elbow close to your body. Incorrect Do not move your elbow away from your body. How to use a wheelchair Correct Keep your elbows close to your body to propel the wheelchair. Incorrect Do not propel the wheelchair with your elbows away from your body. How to get in and out of a chair Correct Keep your elbows close to your body. Place your hands next to your thighs to push to stand. Incorrect Do not push up with your elbows away from your body. How to move from a chair to a walker Correct Option 1: Keep walker close. Place your hands on the seat next to your thighs. Keep your arms closeto your body as you push up. Option 2: Place your hands on your thighs. Keep your arms close to your body as you push up. Incorrect Do not pull up with one hand on the walker and push up with the other hand on the chair. Do not pull up or push up with your arms away from your body. How to get up from the toilet Correct Step 1: Place your hands on the seat close to your thighs. Step 2: Keep your arms close to your body as you push up. Step 3: Keep arms close to your body as you stand. Correct - with bedside commode Step 1: Place your hands on the seat close to your thighs. Step 2: Keep your arms close to your body as you push up. Step 3: Keep arms close to your body as you stand. Incorrect Do not push up with your arms away from your body. Do not push or pull with your arms away from your body. * [facility] - Ashley Menon RN - 03/15/2025 7:58 AM EDT Images from the original note were not included. 18995 After Bypass Surgery: Reaching, Bending, and Lifting Moving carefully During your first few weeks at home, you need to move carefully. This is because your breastbone (sternum) was cut during surgery. The bone takes about 6 to 8 weeks to grow back together. It won't come apart if you move the wrong way. But you may feel pain around the cuts (incisions) or hear a clicking sound in your chest. These are warning signs to move more carefully. Follow the tips below to help prevent straining your breastbone. Reaching Until your breastbone heals, twisting your upper body can be painful. When you reach for something,follow these steps: 1. Turn with your entire body so that you face the object. 2. Step close to it. 3. Lean forward from the waist to pick it up. If you need anything that is above your shoulders, ask someone to get it for you. Bending and lifting For the first few weeks, keep the things you use most, such as clothing and dishes, at waist level.If you must bend down to lift something light, follow these steps: ?? Stand close to the object. ?? Put your feet shoulder-width apart, with one foot slightly in front of the other. ?? Hold on to something sturdy with one hand. ?? Bend at the knees. Keep your back and neck straight and your shoulders and hips in line. ?? traffic personnel supervisor the object and hold it close to your body. ?? Slowly push up with your legs. Don't do heavy lifting, pushing, or pulling. If you need anything that weighs more than 5 to 10 pounds or that is on the floor, ask someone to get it for you. Stop any activity if you have shortness of breath, chest pain, irregular heartbeat, or dizziness. Call your health care provider right away, unless they gave you other directions. Last Reviewed Date: 2024 00:00:00 ?? [id number] [employer]. All rights reserved. This information is not intended as a substitute for professional medical care. Always follow your healthcare professional's instructions. * [facility] - Ashley Menon RN - 03/15/2025 7:58 AM EDT Images from the original note were not included. 81600 After Bypass Surgery: Getting Up and Out of Bed After coronary artery bypass surgery, it's important to protect your incision and healing breastbone. Move carefully as you get up from sitting or as you get out of bed. Getting up from sitting When you get up from a chair or couch, use your leg muscles, not your arms, to push your body up. To stand up: 1. Scoot to the front of the chair. 2. Place one foot slightly in front of the other. 3. Put your hands on your thighs. 4. Bend forward from the hips and push your body up with your legs. To sit down, use your leg muscles to lower yourself onto the front of the chair. Then use your leg muscles, not your arms, to scoot back. Getting out of bed When you get in and out of bed, keep your shoulders and hips in line. Also when you're getting out of bed, roll over to your side rather than trying to sit straight up. To get out of bed: ?? Lie on your back and slowly scoot to the edge of the bed. ?? Bend your knees slightly and roll slowly onto your side. ?? Keep your upper arms close to the sides of your body. This can help prevent excess stress on your breastbone (sternum). Place your hands in front of your body and lean slightly forward. ?? Let your legs move slowly off the edge of the bed to the floor. ?? At the same time, as your legs gently swing to the floor, let the motion help raise your upper body to a sitting position. ?? Sit for a moment. This will help keep you from getting dizzy. ?? Put your hands on your thighs. Bend forward from the hips and push your body up with your legs. ?? Don't use your arms to push up. This is to prevent putting weight on your arms. To get into bed, do the reverse. Before you leave the hospital, your health care provider will show you how to get in and out of bed. And they will show you how to stand up from a sitting position. They will teach you the correct method for body alignment. And they will teach you movements to stay away from, such as pulling to theside and twisting, or pushing and pulling with your arms. When you go home, try to have someone there who knows how to do this, such as a friend, a family member, or a caregiver. This is for your support and safety. Ask your health care provider questions if you are unsure about what to do. Last Reviewed Date: 2024 00:00:00 ?? [id number] [employer]. All rights reserved. This information is not intended as a substitute for professional medical care. Always follow your healthcare professional's instructions. * Discharge Instr - Other Orders - Ashley Menon RN - 03/15/2025 7:58 AM EDT Please arrive 30 minutes early for your appointment with Dr. Sahu Prior to your appointment, go to the radiology department on the 1st floor of the [facility] near [facility] for a chest x-ray. Then go to the lab on the 2nd floor for blood work. Then come to our office on the 3rd floor. Please bring your BOTTLES of medications and parking ticket in for validation. * Discharge Instr - Diet - Ashley Menon RN - 03/15/2025 7:57 AM EDT Your food may taste funny. This is normal after surgery, and it WILL go away. Follow a heart healthy diet. (Information included) * Discharge Instr - Activity - Ashley Menon RN - 03/15/2025 7:57 AM EDT Take a shower every day. Use a clean washcloth on your incisions every day. Wash your incisions before you wash anywhere else on your body. Do NOT use Neosporin, Peroxide, Betadine or other ointments on your incisions. Do NOT lift, push or caul fat puller 5 pounds for six weeks. [address] NOT drive until your physician gives you approval. Move around as you are able. No activity that tires you out. You can sleep on your side if it is comfortable. You can ride in the front seat of the car. You canraise both arms at the same time. * Discharge Instr - AVS First Page - Ashley Menon RN - 03/15/2025 7:57 AM EDT Temperature 101.5 or greater. Incisions coming open or draining pus. Pain not relieved by medications. Increased shortness of breath. Increased swelling. For questions or concerns, please contact??? Ashley Menon CT Surgery Nurse Navigator at [phone] Saturday through Saturday 7am- 3:30pm [place] [phone] after 3:30 pm, weekends and holidays - ask for the CT surgeon evaluation assistant. * Care Plan - Anabelle Lugo RN - 03/15/2025 12:12 AM EDT Problem: Adult Inpatient Plan of Care Goal: Plan of Care Review Outcome: Ongoing, Progressing Flowsheets (Taken 03/15/2025 0011) Progress: improving Plan of Care Reviewed With: patient Goal: Patient-Specific Goal (Individualized) Outcome: Ongoing, Progressing Flowsheets (Taken 03/14/2025 1100 by Kiera Solis RN) Patient/Family-Specific Goals (Include Timeframe): pt will remain free from falls throughout shift Individualized Care Needs: safety Anxieties, Fears or Concerns: denies Goal: Absence of Hospital-Acquired Illness or Injury Outcome: Ongoing, Progressing Goal: Optimal Comfort and Wellbeing Outcome: Ongoing, Progressing Goal: Readiness for Transition of Care Outcome: Ongoing, Progressing Problem: Infection Goal: Absence of Infection Signs and Symptoms Outcome: Ongoing, Progressing Problem: Fall Injury Risk Goal: Absence of Fall and Fall-Related Injury Outcome: Ongoing, Progressing Problem: Dysrhythmia Goal: Normalized Cardiac Rhythm Outcome: Ongoing, Progressing * Progress Notes - Mellisa Tian APRN - 03/14/2025 9:50 AM EDT CVT Progress Note 24 Hour Events/HPI: Sitting up in chair. Complains of gluteal pain from abscess site. Denies CP andSOA. No acute events overnight. Afebrile and hemodynamically stable. Tolerating po diet and having bowel movements. Review of Systems: A complete ROS was obtained. All were negative except as noted in HPI. Objective: All laboratory data, images, tracings, and vital sign data for past 24 hours are personally reviewed unless otherwise noted. All images personally reviewed and I agree with the radiology interpretation @PATIENTWT@ , Weight: 101 kg (223 lb 12.3 oz) , Ht Readings from Last 1 Encounters: 03/12/25 1.803 m (' ) , Body mass index is 30.44 kg/m??. VITALS (last 24h) Temp: [36.4 ??C (97.6 ??F)-37.2 ??C (98.9 ??F)] 37.2 ??C (98.9 ??F) Heart Rate: [75-116] 82 Resp: [16-19] 18 BP: (63-113)/(39-66) 108/52 Visit Vitals BP 108/52 (BP Location: Right arm, Patient Position: Lying) Pulse 82 Temp 37.2 ??C (98.9 ??F) (Oral) Resp 18 Ht 1.803 m ( ) Wt 99 kg (218 lb 4.1 oz) SpO2 100% BMI 30.44 kg/m?? Smoking Status Former BSA 2.23 m?? I & O Summary Intake/Output Summary (Last 24 hours) at 03/14/2025 0950 Last data filed at 03/14/2025 0900 Gross per 24 hour Intake 358 ml Output 1225 ml Net -867 ml LABS CBC WBC 13.12 (H) Hb 8.6 (L) Plt 231 Hct 27.5 (L) ANC ?? INR ??, PTT ??, Anti-Xa ?? BMP Na 131 (L) Cl 99 BUN 32 (H) Glu 97 K 4.3 Co2 20 (L) Cr 0.86 Ca 8.4 (L) iCa ?? Mg 2.1, Phos ?? Lactate ?? LFT AST 32 AlkPhos 81 T Prot 5.6 (L) ALK 26 Bili 1.1 Alb ?? D.Bili ?? HOURS) MEDICATIONS amiodarone, 200 mg, Oral, Daily apixaban, 5 mg, Oral, BID aspirin, 81 mg, Oral, Daily atorvastatin, 80 mg, Oral, Nightly docusate sodium, 100 mg, Oral, BID famotidine, 20 mg, Oral, BID iron sucrose, 200 mg, Intravenous, Daily metoprolol tartrate, 100 mg, Oral, BID mometasone-formoterol, 2 puff, Inhalation, BID polyethylene glycol, 17 g, Oral, Daily senna, 17.2 mg, Oral, Nightly sodium chloride, 10 mL, Intravenous, q12h Tiotropium [place] Monohydrate, 2 puff, Inhalation, Daily PRN medications: acetaminophen, bisacodyl, calcium carbonate, ipratropium- albuterol, magnesium hydroxide, nitroglycerin, oxyCODONE, simethicone, Insert peripheral IV AND Saline lock IV AND sodium chloride AND sodium chloride Physical Exam: GENERAL: Well developed, well nourished. No acute distress. EYES: No scleral icterus or conjunctivitis HENT: Atraumatic, normocephalic, nares patent, mucus membranes moist NECK: Supple, no evidence of bruit bilaterally RESP/CHEST: Clear to auscultation bilaterally, decreased in bases, with symmetric expansion; non labored. Sternum stable, sternotomy as noted below. CARD: Irregular, irregular. S1S2. No murmur, rub, or gallop. No JVD. Trace bilateral lower extremity edema. Pedal pulses palpable +2. Extremities: No cyanosis or clubbing. GI: Soft, nontender, nondistended. BS present and normoactive x 4 quadrants SKIN: No rash, sores, lesions or subcutaneous nodules. Midsternal incision healing well, CDI. NEURO: AAOx4. Motor intact and no focal deficits PSYCH: Mood and affect congruent and appropriate to situation. Assessment and Plan: Mr. Shelly Nelson is a 64 year old male with PMH significant for hyperlipidemia, hypertension, COPD, GERD, carotid artery disease, tobacco abuse, cataracts, cervical radiculopathy, and CAD s/p CABG x4 on 02/21/25. He was discharged to home on 03/02/25. He presented to OSH ED with chest pain that began 2 days ago. He reported intermittent pain that did not radiate and describe pain as a dull ache, he said the pain was different than prior to surgery. He denied fever, chills, headache and any other symptoms. He was in atrial fibrillation with RVR on arrival and is currently in rate controlled atrial fibrillation with no symptoms. He was admitted to observation status. Atrial fibrillation with RVR (POA) - continue amiodarone 200 mg daily - continue metoprolol 75 mg TID - continue apixaban - currently rate controlled afib Pleural effusions (POA) Volume overload (POA) - admission weight 101 kg; BNP 4,711 - daily weights/I&Os - CXR prn - diuresis prn - current weight 99 kg Acute blood loss anemia (POA) Iron deficiency anemia (POA) - H/H 7.5/24.2 on admission - monitor and transfuse for Hgb < 7 - 03/12: 1 unit PRBCs transfused - 03/13: h/H 8.0/24.8; iron 26, transferrin 248, transferrin sat 8, TIBC 310 - 03/14: H/H 8.6/27.5; IV iron started yesterday; 1 unit PRBCs yesterday Leukocytosis (POA) - WBC 10.82 on admission, afebrile - continue to monitor - 03/13: WBC 11.07, afebrile - 03/14: WBC 13.12, afebrile Hyponatremia (POA) - fluid restriction Hypocalcemia (POA) - monitor and replete prn Gluteal abscess (POA) - general surgery consulted - abscess drained at bedside per general surgery on 03/12 - no indication for OR and no indication for antibiotics per GS CAD (POA) S/p CABG and bAVR on 02/21/2025 NSTEMI 02/2025 - ASA, statin, BB - Routine post cardiac surgery care: sternal precautions x 6 weeks, PT, bowel regimen to prevent constipation and aggressive pulmonary toilet. COPD (POA) - continue dulera and spiriva Hypertension (POA) - continue metoprolol 75 mg TID - continue lisinopril 40 mg daily - 03/13: lisinopril discontinued, metoprolol changed to 100 mg BID for soft pressures Hyperlipidemia (POA) - statin BPH (POA) - no home meds, tamsulosin discontinued prior to admission due to uncontrolled bladder GERD (POA) - continue home famotidine Tobacco abuse (POA) - NRT prn - Cessation counseling - 1.5 PPD; 78 pack year history - Complicates all aspects of care Obesity (POA) - BMI 30.26 - complicates all aspects of care Plan: Incentive spirometer hourly. Duonebs prn. Continue current plan of care. Cardiothoracic Surgery [phone] * Care Plan - Alexia Chakraborty RN - 03/14/2025 12:39 AM EDT Problem: Adult Inpatient Plan of Care Goal: Plan of Care Review Outcome: Ongoing, Progressing Goal: Patient-Specific Goal (Individualized) Outcome: Ongoing, Progressing Goal: Absence of Hospital-Acquired Illness or Injury Outcome: Ongoing, Progressing Goal: Optimal Comfort and Wellbeing Outcome: Ongoing, Progressing Goal: Readiness for Transition of Care Outcome: Ongoing, Progressing Problem: Infection Goal: Absence of Infection Signs and Symptoms Outcome: Ongoing, Progressing Problem: Fall Injury Risk Goal: Absence of Fall and Fall-Related Injury Outcome: Ongoing, Progressing Problem: Dysrhythmia Goal: Normalized Cardiac Rhythm Outcome: Ongoing, Progressing * Progress Notes - Mellisa Tian APRN - 03/13/2025 6:21 AM EDT CVT Progress Note 24 Hour Events/HPI: Sitting up in chair. Complains of gluteal pain from abscess site. Denies CP andSOA. No acute events overnight. Afebrile and hemodynamically stable. Tolerating po diet and having bowel movements. Review of Systems: A complete ROS was obtained. All were negative except as noted in HPI. Objective: All laboratory data, images, tracings, and vital sign data for past 24 hours are personally reviewed unless otherwise noted. All images personally reviewed and I agree with the radiology interpretation @PATIENTWT@ , Weight: 101 kg (223 lb 12.3 oz) , Ht Readings from Last 1 Encounters: 03/12/25 1.803 m (5' 11 ) , Body mass index is 30.26 kg/m??. VITALS (last 24h) Temp: [36.7 ??C (98.1 ??F)-37.1 ??C (98.8 ??F)] 37.1 ??C (98.8 ??F) Heart Rate: [82-130] 101 Resp: [15-31] 24 BP: (67-110)/(35-75) 100/75 Visit Vitals BP 100/75 (BP Location: Left arm, Patient Position: Lying) Pulse 101 Temp 37.1 ??C (98.8 ??F) (Oral) Resp 24 Ht 1.803 m (5' 11 ) Wt 98.4 kg (216 lb 14.9 oz) SpO2 93% BMI 30.26 kg/m?? Smoking Status Former BSA 2.22 m?? I & O Summary Intake/Output Summary (Last 24 hours) at 03/13/2025 0621 Last data filed at 03/13/2025 0400 Gross per 24 hour Intake 300 ml Output 1250 ml Net -950 ml LABS CBC WBC 11.07 (H) Hb 8.0 (L) Plt 237 Hct 24.8 (L) ANC ?? INR ??, PTT ??, Anti-Xa ?? BMP Na 134 (L) Cl 99 BUN 29 (H) Glu 94 K 4.0 Co2 22 Cr 0.97 Ca 8.3 (L) iCa ?? Mg 1.9, Phos ?? Lactate ?? LFT AST 39 AlkPhos 77 T Prot 6.0 (L) ALK 25 Bili 1.3 (H) Alb ?? D.Bili ?? HOURS) MEDICATIONS amiodarone, 200 mg, Oral, Daily apixaban, 5 mg, Oral, BID aspirin, 81 mg, Oral, Daily atorvastatin, 80 mg, Oral, Nightly docusate sodium, 100 mg, Oral, BID famotidine, 20 mg, Oral, BID furosemide, 40 mg, Oral, Daily lisinopril, 40 mg, Oral, Daily metoprolol tartrate, 75 mg, Oral, TID mometasone-formoterol, 2 puff, Inhalation, BID senna, 17.2 mg, Oral, Nightly sodium chloride, 10 mL, Intravenous, q12h Tiotropium [place] Monohydrate, 2 puff, Inhalation, Daily PRN medications: acetaminophen, calcium carbonate, nitroglycerin, simethicone, Insert peripheral IVAND Saline lock IV AND sodium chloride AND sodium chloride Physical Exam: GENERAL: Well developed, well nourished. No acute distress. EYES: No scleral icterus or conjunctivitis HENT: Atraumatic, normocephalic, nares patent, mucus membranes moist NECK: Supple, no evidence of bruit bilaterally RESP/CHEST: Clear to auscultation bilaterally, decreased in bases, with symmetric expansion; non labored. Sternum stable, sternotomy as noted below. CARD: Irregular, irregular. S1S2. No murmur, rub, or gallop. No JVD. Trace bilateral lower extremity edema. Pedal pulses palpable +2. Extremities: No cyanosis or clubbing. GI: Soft, nontender, nondistended. BS present and normoactive x 4 quadrants SKIN: No rash, sores, lesions or subcutaneous nodules. Midsternal incision healing well, CDI. NEURO: AAOx4. Motor intact and no focal deficits PSYCH: Mood and affect congruent and appropriate to situation. Assessment and Plan: Mr. Shelly Nelson is a 64 year old male with PMH significant for hyperlipidemia, hypertension, COPD, GERD, carotid artery disease, tobacco abuse, cataracts, cervical radiculopathy, and CAD s/p CABG x4 on 02/21/25. He was discharged to home on 03/02/25. He presented to OSH ED with chest pain that began 2 days ago. He reported intermittent pain that did not radiate and describe pain as a dull ache, he said the pain was different than prior to surgery. He denied fever, chills, headache and any other symptoms. He was in atrial fibrillation with RVR on arrival and is currently in rate controlled atrial fibrillation with no symptoms. He was admitted to observation status. Atrial fibrillation with RVR (POA) - continue amiodarone 200 mg daily - continue metoprolol 75 mg TID - continue apixaban Pleural effusions (POA) Volume overload (POA) - admission weight 101 kg; BNP 4,711 - daily weights/I&Os - CXR prn - diuresis prn - current weight 98.4 kg Acute blood loss anemia (POA) Iron deficiency anemia (POA) - H/H 7.5/24.2 on admission - monitor and transfuse for Hgb < 7 - 5/2: 1 unit PRBCs transfused - 03/13: h/H 8.0/24.8; iron 26, transferrin 248, transferrin sat 8, TIBC 310 Leukocytosis (POA) - WBC 10.82 on admission, afebrile - continue to monitor - 03/13: WBC 11.07, afebrile Hyponatremia (POA) - fluid restriction Hypocalcemia (POA) - monitor and replete prn Gluteal abscess (POA) - general surgery consulted - abscess drained at bedside per general surgery on 03/12 - no indication for OR and no indication for antibiotics per GS CAD (POA) S/p CABG and bAVR on 02/21/2025 NSTEMI 02/2025 - ASA, statin, BB - Routine post cardiac surgery care: sternal precautions x 6 weeks, PT, bowel regimen to prevent constipation and aggressive pulmonary toilet. COPD (POA) - continue dulera and spiriva Hypertension (POA) - continue metoprolol 75 mg TID - continue lisinopril 40 mg daily Hyperlipidemia (POA) - statin BPH (POA) - no home meds, tamsulosin discontinued prior to admission due to uncontrolled bladder GERD (POA) - continue home famotidine Tobacco abuse (POA) - NRT prn - Cessation counseling - 1.5 PPD; 78 pack year history - Complicates all aspects of care Obesity (POA) - BMI 30.26 - complicates all aspects of care Plan: Begin IV iron today x 5 days. Continue beta liu, apixaban, and amiodarone, currently atrial fibrillation in controlled rate. Add oxycodone prn for gluteal abscess pain. Cardiothoracic Surgery [phone] * Significant Event - Jo Xiong MD - 03/12/2025 10:48 AM EDT SGE Update: Wound viewed on rounds this AM. Hemostatic, packing replaced. Patient able to offload. Recommendations - Wound care consultation - Continue offloading - No surgical debridement needs at this time SGE to sign off. Jo Xiong MD MPH General Surgery Resident [phone] * Consults - Roger Wheeler MD - 03/12/2025 6:42 AM EDTAssociated Order(s): Consult to Emergency General Surgery Images from the original note were not included. [facility] Department of Surgery Division of Acute Care / Emergency General Surgery History & Physical Note Reason for Consult: Glute abscess Requesting Service: Emergency Department Consult Date and Time: 03/12/2025 0440 Consult to Emergency General Surgery Consult performed by: Roger Wheeler MD Consult ordered by: Sloane Jones MD Subjective History of Present Illness: Chief Complaint: chest pain Shelly Nelson is a 64 y.o. male with PMHx significant for CAD, HTN, COPD who presented to [facility] as a transfer from OSH for chest pain in the setting of recent CABG on 02/21/25. Patient reports develop left sided constant chest pain 2 days ago. Similar to his recent chest pain prior to his CABG. Presented to OSH. Pain improved with nitroglycerin. Found to have a R gluteal abscess on CT scan. Patient reports having pain in his glute since his admission. Worsened over the past 2 days. Has been draining fluid for a few days but is unsure what it is draining. Denies prior perianal abscess, crohn's, prior colonoscopy. Not on blood thinner Review of Systems: A 14 point review of systems was reviewed and is negative except as mentioned inthe HPI. History Obtained From: Patient Past 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: 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[1] Allergies And Reactions: Allergies[2] Past Surgical History: Surgical History[3] Family 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: Family History[4] Social History: Social History Socioeconomic History Marital status: Spouse name: Not on file Number of children: Not on file Years of education: Not on file Highest education level: Not on file Occupational History Not on file Tobacco Use Smoking status: Former Types: Cigarettes Smokeless tobacco: Never Substance and Sexual Activity Alcohol use: Not Currently Drug use: Not Currently Sexual activity: Not on file Other Topics Concern Not on file Social History Narrative Not on file Social Drivers of Health Financial Resource Strain: Not on file Food Insecurity: No Food Insecurity (02/17/2025) Hunger Vital Sign Worried About Running Out of Food in the Last Year: Never true Ran Out of Food in the Last Year: Never true Transportation Needs: No Transportation Needs (02/17/2025) PRAPARE - Transportation Lack of Transportation (Medical): No Lack of Transportation (Non-Medical): No Physical Activity: Not on file Stress: Not on file Social Connections: Not on file Intimate Partner Violence: Not At Risk (02/17/2025) Humiliation, Afraid, Rape, and Kick questionnaire Fear of Current or Ex-Partner: No Emotionally Abused: No Physically Abused: No Sexually Abused: No Housing Stability: Unknown (02/17/2025) Housing Stability Vital Sign Unable to Pay for Housing in the Last Year: No Number of Times Moved in the Last Year: Not on file Homeless in the Last Year: No Immunizations: Immunization History Administered Date(s) Administered Moderna COVID-19 Vaccine ([employer]chanical Systems [employer]er) 12+ years 03/29/2021, 04/26/2021 I have updated and confirmed the past medical, surgical, family and social history. Home Medications: Prior to Admission medications Medication Sig Start Date End Date Taking? Authorizing Provider acetaminophen (Tylenol) 325 MG tablet Take 2 tablets by mouth every 6 hours as needed for pain, headaches or fever. Under [place] law, monthly prescriptions (30 days) can be refilled at 25 days and three-month prescriptions (90 days) at 80 days. Please contact the insurance company with questions if refills are denied. 03/02/25 Marily Garcia APRN amiodarone (Pacerone) 200 MG tablet Take 2 tablets by mouth 2 (two) times a day for 1 day, THEN 1 tablet daily. 03/02/25 04/02/25 Marily Garcia APRN apixaban (Eliquis) 5 MG tablet Take 1 tablet by mouth 2 (two) times a day. 03/02/25 Marily Garcia APRN aspirin 81 MG chewable tablet Chew 1 tablet daily. 03/03/25 07/01/25 Marily Garcia APRN atorvastatin (Lipitor) 80 MG tablet Take 1 tablet by mouth nightly. 03/02/25 06/30/25 Marily Garcia APRN docusate sodium 100 MG capsule Take 100 mg by mouth 2 (two) times a day for 10 days. Hold for loosestools 03/02/25 03/12/25 Marily Garcia APRN famotidine (Pepcid) 20 MG tablet Take 1 tablet by mouth in the morning and 1 tablet before bedtime.Provider, MD Carie furosemide (Lasix) 40 MG tablet Take 1 tablet by mouth daily. 03/03/25 04/02/25 Marily Garcia APRN lisinopril 40 MG tablet Take 1 tablet by mouth daily. 03/02/25 06/30/25 Marily Garcia APRN methocarbamol (Robaxin) 500 MG tablet Take 2 tablets by mouth 4 (four) times a day as needed for muscle spasms for up to 10 days. 03/02/25 03/12/25 Marily Garcia APRN Metoprolol Tartrate 75 MG tablet Take 75 mg by mouth 3 (three) times a day. 03/02/25 Marily Garcia APRN mometasone-formoterol (Dulera 100) 100-5 MCG/ACT inhaler Inhale 2 puffs 2 (two) times a day. Rinse mouth with water after use to reduce aftertaste and incidence of candidiasis. Do not swallow. 03/02/25 Marily Garcia APRN naloxone (Narcan) 4 mg/0.1 mL nasal spray 1. Give 1 spray in nostril for no/slow breathing or cannot wake after opioid use 2. Call 911 3. Repeat in other nostril if symptoms continue 03/02/25 Marily Garcia APRN oxyCODONE (Roxicodone) 5 MG immediate release tablet Take 2 tablets by mouth every 6 hours as needed for moderate pain for up to 3 days. 03/02/25 03/05/25 Marily Garcia APRN potassium chloride CR (Klor-Con M20) 20 MEQ ER tablet Take 1 tablet by mouth daily. Do not crush orchew. 03/02/25 04/01/25 Marily Garcia APRN senna (Senokot) 8.6 MG tablet Take 2 tablets by mouth at night as needed for constipation for up to10 days. Hold for loose stools 03/02/25 03/12/25 Marily Garcia APRN Tiotropium [place] Monohydrate (Spiriva Respimat) 2.5 MCG/ACT inhaler Inhale 2 puffs daily. Marily Garcia APRN Anti-Thrombotic Medications: Is this patient taking warfarin, new oral anti-coagulant, or anti-platelet medication? Yes If Yes, What Medication: Aspirin Current Hospital Medications: Current Medications[5] Objective Objective: Visit Vitals BP 120/70 Pulse 109 Temp 36.8 ??C (98.3 ??F) (Oral) Ht 1.803 m (5' 11 ) Wt 101 kg (223 lb 12.3 oz) SpO2 92% BMI 31.21 kg/m?? @ Physical Exam: Physical Exam General: Well appearing, no acute distress HEENT: Normocephalic, atraumatic. MMM. Trachea midline CV: Hemodynamically stable. RRR. No LE edema. Good cap refill. Pulm: Regular work of breathing. Equal chest rise bilaterally. Abd: soft, nontender, nondistended. No guarding or rebound tenderness. : midline induration at gluteal cleft with small opening; induration of R glute. Ext: atraumatic, no deformities Neuro: GCS 15, CN grossly intact Psych: normal behavior, normal mood Laboratory: CBC WBC 10.82 (H) Hb 7.5 (L) Plt 234 Hct 24.2 (L) ANC 9.29 (H) INR ??, PTT ??, Anti-Xa 1.32 MCV 89 BMP Na 133 (L) Cl 99 BUN 20 Glu 90 K 3.8 Co2 22 Cr 0.81 Ca 8.2 (L) iCa ?? Mg ??, Phos ?? Lactate ?? LFT AST 33 AlkPhos 81 T Prot 6.2 (L) ALK 27 Bili 1.0 Alb ?? D.Bili ?? Imaging: OSH CT scan reviewed with R gluteal abscess 6cm @OBJECTIVEED@ Assessment/Plan Assessment & Plan: Shelly Nelson is a 64 y.o. male with PMHx significant for CAD, HTN, COPD who presented to [facility] as a transfer from OSH for chest pain in the setting of recent CABG on 02/21/25. General surgery consulted for gluteal abscess. Patient has had gluteal pain since admission. Started draining a few days ago. No fevers or systemic symptoms. On exam, has R gluteal abscess extending from the cleft. After consent, drained at bedside. Culture sent. Packed with WTD dressing. SGE will continue to follow. No indications for antibiotics as patient is not immunocompromised, does not have significant erythema. Roger Wheeler MD [1] Past 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: Diagnosis Date Abnormal ECG BPH (benign prostatic hyperplasia) Cervical radiculopathy COPD (chronic obstructive pulmonary disease) ([facility]) Coronary artery disease GERD (gastroesophageal reflux disease) Heart valve disease Hypertension On mechanically assisted ventilation ([facility]) 02/21/2025 Intubated for procedure, arrived to ICU post-procedure intubated and sedated Wean as tolerated Fasttrack extubation [2] No Known Allergies [3] Past Surgical History: Procedure Laterality Date AORTIC VALVE REPLACEMENT 02/21/2025 Aortic valve replacement using a 29 mm Inspiris aortic bioprosthesis. (Dr. Lata Sahu) BACK SURGERY CORONARY ARTERY BYPASS GRAFT 02/21/2025 Coronary artery bypass grafting x4 with RODRIGUEZ to LAD, reverse saphenous vein graft to distal RCA, and reverse saphenous vein graft sequential to ramus intermedius artery and 2 obtuse marginal artery. (Dr. Lata Sahu) HERNIA REPAIR NECK SURGERY SHOULDER SURGERY [4] No family history on file. [5] No current facility-administered medications for this encounter. Current Outpatient Medications Medication Sig Dispense Refill acetaminophen (Tylenol) 325 MG tablet Take 2 tablets by mouth every 6 hours as needed for pain, headaches or fever. Under [place] law, monthly prescriptions (30 days) can be refilled at 25 days and three-month prescriptions (90 days) at 80 days. Please contact the insurance company with questions if refills are denied. 100 tablet 0 amiodarone (Pacerone) 200 MG tablet Take 2 tablets by mouth 2 (two) times a day for 1 day, THEN 1 tablet daily. 34 tablet 2 apixaban (Eliquis) 5 MG tablet Take 1 tablet by mouth 2 (two) times a day. 60 tablet 3 aspirin 81 MG chewable tablet Chew 1 tablet daily. 30 tablet 3 atorvastatin (Lipitor) 80 MG tablet Take 1 tablet by mouth nightly. 30 tablet 3 docusate sodium 100 MG capsule Take 100 mg by mouth 2 (two) times a day for 10 days. Hold for loosestools 20 capsule 0 famotidine (Pepcid) 20 MG tablet Take 1 tablet by mouth in the morning and 1 tablet before bedtime. furosemide (Lasix) 40 MG tablet Take 1 tablet by mouth daily. 30 tablet 0 lisinopril 40 MG tablet Take 1 tablet by mouth daily. 30 tablet 3 methocarbamol (Robaxin) 500 MG tablet Take 2 tablets by mouth 4 (four) times a day as needed for muscle spasms for up to 10 days. 40 tablet 0 Metoprolol Tartrate 75 MG tablet Take 75 mg by mouth 3 (three) times a day. 90 tablet 3 mometasone-formoterol (Dulera 100) 100-5 MCG/ACT inhaler Inhale 2 puffs 2 (two) times a day. Rinse mouth with water after use to reduce aftertaste and incidence of candidiasis. Do not swallow. 13 g 3 naloxone (Narcan) 4 mg/0.1 mL nasal spray 1. Give 1 spray in nostril for no/slow breathing or cannot wake after opioid use 2. Call 911 3. Repeat in other nostril if symptoms continue 1 each 0 potassium chloride CR (Klor-Con M20) 20 MEQ ER tablet Take 1 tablet by mouth daily. Do not crush orchew. 30 tablet 0 senna (Senokot) 8.6 MG tablet Take 2 tablets by mouth at night as needed for constipation for up to10 days. Hold for loose stools 20 tablet 0 Tiotropium [place] Monohydrate (Spiriva Respimat) 2.5 MCG/ACT inhaler Inhale 2 puffs daily. 4 g 3 Cosigned by Jo Curtis MD at 03/22/2025 1:50 PM EDT Associated attestation - Jo Curtis MD - 03/22/2025 1:50 PM EDT I saw and evaluated the patient with the resident/fellow. I discussed the case with the resident/fellow and agree with the findings and plan as documented. * H&P - Master Nova MD - 03/12/2025 6:27 AM EDT Reason for visit / Chief Complaint: chest pain History of present illness: Shelly Nelson is a 64 y.o. male presented to [facility] ED with chest pain that began the last 2 days. He has a past medical history of coronary artery disease, hyperlipidemia, hypertension, COPD, and recent aortic valve replacement and CABG x4 on 02/21/25. Patient reports that he had some significant chest pain without radiation in the last 1-2 days. It was intermittent and did not radiate anywhere. The pain was like a dull ache similar to his pain prior to surgery but not as severe. The pain was relieved with nitro. EKG showed a-fib/a-flutter. CVT consulted for evaluation. Patient denies any pain now. He denies significant shortness of breath. He reports he has been doing well at home besides the new pain. Denies fever, chills. Has been having normal bowel function. OSH CT scan showed gluteal abscess for which general surgery was consulted His chronic comorbid conditions that impact our treatment planning include: Peripheral Vascular Disease (inclusive of atherosclerotic disease of the lower extremities) Atherosclerosis, Non-peripheral Cardiac Arrhythmia Obesity Prior Open Repair of Heart Active Problems: Patient Active Problem List Diagnosis Date Noted Abnormal CT of the head 02/24/2025 Persistent atrial fibrillation ([facility]) 02/23/2025 S/P AVR 02/22/2025 Post-op pain 02/22/2025 Obstructive sleep apnea 02/21/2025 S/P CABG x 4 02/21/2025 Acute blood loss anemia 02/18/2025 Heart failure with mid-range ejection fraction (HFmEF) ([facility]) 02/17/2025 CAD, multiple vessel 02/16/2025 HLD (hyperlipidemia) 02/16/2025 HTN (hypertension) 02/16/2025 COPD (chronic obstructive pulmonary disease) ([facility]) 02/16/2025 Tobacco abuse disorder 02/16/2025 Incomplete right bundle branch block 02/16/2025 Cervical radiculopathy 02/16/2025 BPH (benign prostatic hyperplasia) 02/16/2025 Obesity (BMI 30-39.9) 02/16/2025 GERD (gastroesophageal reflux disease) 02/16/2025 Situational depression 02/16/2025 Edentulous 02/16/2025 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: Past 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: Diagnosis Date Abnormal ECG BPH (benign prostatic hyperplasia) Cervical radiculopathy COPD (chronic obstructive pulmonary disease) ([facility]) Coronary artery disease GERD (gastroesophageal reflux disease) Heart valve disease Hypertension On mechanically assisted ventilation ([facility]) 02/21/2025 Intubated for procedure, arrived to ICU post-procedure intubated and sedated Wean as tolerated Fasttrack extubation Surgical History: Surgical History[1] Social History: Tobacco: Tobacco Use: Medium Risk (03/12/2025) Patient History Smoking Tobacco Use: Former Smokeless Tobacco Use: Never Passive Exposure: Not on file Alcohol: Alcohol Use: Not on file Illicit drug use: Social History Substance and Sexual Activity Drug Use Not Currently Family History: family history is not on file. Allergies: Allergies[2] Medications: Prior to Admission medications Medication Sig Start Date End Date Taking? Authorizing Provider acetaminophen (Tylenol) 325 MG tablet Take 2 tablets by mouth every 6 hours as needed for pain, headaches or fever. Under [place] law, monthly prescriptions (30 days) can be refilled at 25 days and three-month prescriptions (90 days) at 80 days. Please contact the insurance company with questions if refills are denied. 03/02/25 Marily Garcia APRN amiodarone (Pacerone) 200 MG tablet Take 2 tablets by mouth 2 (two) times a day for 1 day, THEN 1 tablet daily. 03/02/25 04/02/25 Marily Garcia APRN apixaban (Eliquis) 5 MG tablet Take 1 tablet by mouth 2 (two) times a day. 03/02/25 Marily Garcia APRN aspirin 81 MG chewable tablet Chew 1 tablet daily. 03/03/25 07/01/25 Marily Garcia APRN atorvastatin (Lipitor) 80 MG tablet Take 1 tablet by mouth nightly. 03/02/25 06/30/25 Marily Garcia APRN docusate sodium 100 MG capsule Take 100 mg by mouth 2 (two) times a day for 10 days. Hold for loosestools 03/02/25 03/12/25 Marily Garcia APRN famotidine (Pepcid) 20 MG tablet Take 1 tablet by mouth in the morning and 1 tablet before bedtime.Provider, MD Carie furosemide (Lasix) 40 MG tablet Take 1 tablet by mouth daily. 03/03/25 04/02/25 Marily Garcia APRN lisinopril 40 MG tablet Take 1 tablet by mouth daily. 03/02/25 06/30/25 Marily Garcia APRN methocarbamol (Robaxin) 500 MG tablet Take 2 tablets by mouth 4 (four) times a day as needed for muscle spasms for up to 10 days. 03/02/25 03/12/25 Marily Garcia APRN Metoprolol Tartrate 75 MG tablet Take 75 mg by mouth 3 (three) times a day. 03/02/25 Marily Garcia APRN mometasone-formoterol (Dulera 100) 100-5 MCG/ACT inhaler Inhale 2 puffs 2 (two) times a day. Rinse mouth with water after use to reduce aftertaste and incidence of candidiasis. Do not swallow. 03/02/25 Marily Garcia APRN naloxone (Narcan) 4 mg/0.1 mL nasal spray 1. Give 1 spray in nostril for no/slow breathing or cannot wake after opioid use 2. Call 911 3. Repeat in other nostril if symptoms continue 03/02/25 Marily Garcia APRN oxyCODONE (Roxicodone) 5 MG immediate release tablet Take 2 tablets by mouth every 6 hours as needed for moderate pain for up to 3 days. 03/02/25 03/05/25 Marily Garcia APRN potassium chloride CR (Klor-Con M20) 20 MEQ ER tablet Take 1 tablet by mouth daily. Do not crush orchew. 03/02/25 04/01/25 Marily Garcia APRN senna (Senokot) 8.6 MG tablet Take 2 tablets by mouth at night as needed for constipation for up to10 days. Hold for loose stools 03/02/25 03/12/25 Marily Garcia APRN Tiotropium [place] Monohydrate (Spiriva Respimat) 2.5 MCG/ACT inhaler Inhale 2 puffs daily. Marily Garcia APRN Physical exam: Visit Vitals BP 120/70 Pulse 109 Temp 36.8 ??C (98.3 ??F) (Oral) SpO2 92% General: alert and oriented, appropriate HEENT: normocephalic, atraumatic, normal external ears and nose Eyes: no scleral icterus, normal conjunctiva Neck: supple, no trachea deviation Lungs: symmetric chest rise, non-labored breathing Heart: irregularly irregular, well perfused Abdomen: soft NT/ND, Extremities: 2+ peripheral edema Skin: no rash, no cyanosis and warm to touch Psychiatric: oriented to person/place/time and normal mood/affect Labs in last 18 hours: CBC WBC 10.82 (H) Hb 7.5 (L) Plt 234 Hct 24.2 (L) ANC 9.29 (H) INR ??, PTT ??, Anti-Xa 1.32 BMP Na 133 (L) Cl 99 BUN 20 Glu 90 K 3.8 Co2 22 Cr 0.81 Ca 8.2 (L) iCa ?? Mg ??, Phos ?? Lactate ?? LFT AST 33 AlkPhos 81 T Prot 6.2 (L) ALK 27 Bili 1.0 Alb ?? D.Bili ?? Imaging: Echo, Adult Transthoracic Complete Result Date: 02/17/2025 Left Ventricle: Based on the linear dimension and/or 2D volumes, the left ventricle is mildly dilated in size. There is concentric hypertrophy. The LVEF as measured by biplane volume is 54%. The calculated cardiac index based on LVOT Doppler technique is normal. The left ventricular filling pressure is normal. No regional wall motion abnormalities are seen. Aortic Valve: There is calcification ofthe aortic valve leaflets. There is mild to moderate aortic valve regurgitation. There is mild to moderate aortic stenosis. The peak gradient is 37 mmHg. The mean gradient is 19 mmHg. The estimated aortic valve area by the continuity equation is 1.5 cm2. Left Atrium: The left atrial size is normal with an indexed volume of 16-34 mL/m2. Cardiac Cath Results: None Impression: Shelly Nelson is a 64 y.o. male presented to OSH ED with chest pain that began the last 2 days. He has a past medical history of coronary artery disease, hyperlipidemia, hypertension, COPD, and recent aortic valve replacement and CABG x4 on 02/21/25. Patient reports that he had some significant chest pain without radiation in the last 1-2 days. It was intermittent and did not radiate anywhere. The pain was like a dull ache similar to his pain prior to surgery but not as severe. The pain was relieved with nitro. EKG showed a-fib/a-flutter. CVT consulted for evaluation. Plan: Admit for observation Restart home meds including amiodarone and metoprolol for rate control ECHO Abx per general surgery If pain returns, may need left heart cath [1] Past Surgical History: Procedure Laterality Date AORTIC VALVE REPLACEMENT 02/21/2025 Aortic valve replacement using a 29 mm Inspiris aortic bioprosthesis. (Dr. Lata Sahu) BACK SURGERY CORONARY ARTERY BYPASS GRAFT 02/21/2025 Coronary artery bypass grafting x4 with RODRIGUEZ to LAD, reverse saphenous vein graft to distal RCA, and reverse saphenous vein graft sequential to ramus intermedius artery and 2 obtuse marginal artery. (Dr. Lata Sahu) HERNIA REPAIR NECK SURGERY SHOULDER SURGERY [2] No Known Allergies Cosigned by Lata Sahu MD at 03/12/2025 2:03 PM EDT Associated attestation - Lata Sahu MD - 03/12/2025 2:03 PM EDT I saw and evaluated the patient with the resident/fellow. I discussed the case with the resident/fellow and agree with the findings and plan as documented. * Procedures - Roger Wheeler MD - 03/12/2025 5:54 AM EDTAssociated Order(s): Incision & Drainage Post-Procedure Diagnose(s): Gluteal abscess Incision & Drainage Performed by: Roger Wheeler MD Authorized by: Jo Curtis MD Consent: Consent obtained: Written Consent given by: Patient Risks, benefits, and alternatives were discussed: yes Risks discussed: Bleeding, incomplete drainage, pain and infection Alternatives discussed: No treatment, delayed treatment and alternative treatment Kiefer protocol: Procedure explained and questions answered to patient or proxy's satisfaction: yes Relevant documents present and verified: yes Imaging studies available: yes Immediately prior to procedure, a time out was called: yes Patient identity confirmed: Provided demographic data Location: Type: Abscess Size: 4.5x6cm Location: glute. Pre-procedure details: Skin preparation: Chlorhexidine with alcohol Sedation: Sedation type: None Anesthesia: Anesthesia method: Local infiltration Local anesthetic: Lidocaine 1% w/o epi Procedure type: Complexity: Complex Procedure details: Incision types: Single straight Incision depth: Dermal Wound management: Probed and deloculated and irrigated with saline Drainage: Purulent Drainage amount: Moderate Wound treatment: Wound left open Packing material: 4x4 WTD. Post-procedure details: Procedure completion: Tolerated well, no immediate complications Cosigned by Jo Curtis MD at 03/22/2025 1:49 PM EDT Associated attestation - Jo Curtis MD - 03/22/2025 1:49 PM EDT I was present for the entirety of the procedure(s). * ED Provider Notes - Freddie Chandra DO - 03/12/2025 3:35 AM EDT - HPI Chief Complaint Patient presents with Chest Pain This is a 64-year-old male patient, with past medical history of CAD, ACS, NSTEMI, aortic valve replacement, hyperlipidemia, hypertension, and COPD, who is presenting to the emergency department today as transfer from outside hospital for chest pain. The patient was recently admitted to our hospital and underwent an aortic valve replacement as well as a quadruple vessel bypass. He has been doing well since surgery but over the last 48 hours began experiencing significant chest pain. He states that his pain has improved with lying flat and completely resting. When he is moving in all his chestpain is quite severe his chest pain is intermittent in nature and does not radiate into his back, arms, or jaw. He is not experiencing cough or shortness of breath. The patient was treated at the outside hospital with 3 nitroglycerin as well as aspirin. This did significantly improve his pain. They obtained labs which were largely unremarkable as well as a CTA of the chest which showed no evidence of pulmonary embolism, but did show mild pulmonary edema with small bilateral pleural effusions. In addition to this the patient did began experiencing some abdominal pain while in the emergency department so they obtained a CT scan of the abdomen and pelvis with contrast. The scan revealed a right gluteal abscess with locules of air present. The patient did sustain a sacral decubitus ulcer while recently hospitalized for his heart surgery. He has not had any fevers or chills. Patient History 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[1] Surgical History[2] Family History[3] Social History[4] Allergies: Allergies[5] Physical Exam ED Triage Vitals [03/12/25 0342] Temp Heart Rate Resp BP 36.8 ??C (98.3 ??F) 113 25 122/88 SpO2 Temp Source Heart Rate Source Patient Position 95 % Oral Monitor Lying BP Location FiO2 (%) Right arm -- Physical Exam Constitutional: General: He is not in acute distress. Appearance: Normal appearance. HENT: Head: Normocephalic and atraumatic. Right Ear: External ear normal. Left Ear: External ear normal. Nose: Nose normal. Mouth/Throat: Mouth: Mucous membranes are moist. Eyes: Extraocular Movements: Extraocular movements intact. Pupils: Pupils are equal, round, and reactive to light. Cardiovascular: Rate and Rhythm: Normal rate and regular rhythm. Pulmonary: Effort: Pulmonary effort is normal. Comments: No respiratory distress Abdominal: General: Abdomen is flat. Palpations: Abdomen is soft. Tenderness: There is no abdominal tenderness. Comments: Approximately 4-5 cm area of dense induration along the right buttock extending from the sacral margin to the mid gluteus. There is also a sacral decubitus ulcer present. I am not able to express purulence from the gluteus via the sacral decubitus ulcer. Musculoskeletal: General: No swelling or deformity. Normal range of motion. Cervical back: Normal range of motion and neck supple. Skin: General: Skin is warm and dry. Capillary Refill: Capillary refill takes less than 2 seconds. Neurological: General: No focal deficit present. Mental Status: He is alert and oriented to person, place, and time. Quail Coma Scale Score: 15 ED Course & MDM - Assessment: 64 y.o. male presents to ED with complaint of chest pain 3 weeks post op CABGx4 as well as an incidental gluteal abscess found on CT at OSH. It should be noted that the chronic conditions includes CAD, COPD, CABGx4, HTN, and tobacco abuse, which currently is at goal therapy. This complicates the clinical picture because it Comorbidities: may be exacerbating symptoms and increases the risk for morbidity On initial evaluation of the patient they were sitting upright in no acute distress and nontoxic inappearance. They are hemodynamically stable, saturating well on room air, and are neurologically intact. On examination, There is an approximate 4-5 cm area of dense induration along the right buttock extending from the sacral margin to the mid gluteus. There is also a sacral decubitus ulcer present. I am not able to express purulence from the gluteus via the sacral decubitus ulcer. Based on the locules of air noted on CT scan in the gluteal abscess, my suspicion is that the air has tracked into the gluteus from the sacral decubitus ulcer. Differential Diagnosis: ACS/ND, pericarditis, myocarditis, kayley syndrome, gluteal abscess, gluteal decubitus ulcer, others. In order to fully explore the differential diagnosis the following treatments and tests were ordered: ED Medication Administration from 03/12/2025 0144 to 03/12/2025 0638 Date/Time Order Dose Route Action 03/12/2025 0540 EDT HYDROmorphone (Dilaudid) injection 1 mg 1 mg Intravenous Given All Other Orders Ordered Status Ordering Provider 03/12/25 0435 Troponin T, High Sensitivity, 2 Hour, Plasma PROCEDURE ONCE Ordered FREDDIE CHANDRA 03/12/25 0554 Incision & Drainage Once Comments: This order was created via procedure documentation Preliminary result ROGER WHEELER 03/12/25 0445 Consult to Cardiothoracic Surgery Once Specialty: Cardiothoracic Surgery Provider: (Not yet assigned) Acknowledged FREDDIE CHANDRA 03/12/25 0440 Consult to Cardiology Once Specialty: Cardiology Provider: (Not yet assigned) Acknowledged FREDDIE CHANDRA 03/12/25 0440 Consult to Emergency General Surgery Once Provider: (Not yet assigned) Acknowledged FREDDIE CHANDRA 03/12/25 0420 C-reactive protein STAT Final result SLOANE JONES 03/12/25 035 XR Chest 1 View One time imaging Final result FREDDIE CHANDRA 03/12/25 035 CMP STAT Final result FREDDIE CHANDRA 03/12/25 0351 CBC w/diff STAT Final result FREDDIE CHANDRA 03/12/25 0351 Anti Xa Level Low Molecular Weight STAT Final result FREDDIE CHANDRA 03/12/25 0351 BNP STAT Final result FREDDIE CHANDRA 03/12/25 0351 Troponin now and 120 min STAT Final result FREDDIE CHANDRA 03/12/25 0351 Lipase STAT Final result FREDDIE CHANDRA 03/12/25 0351 Once Canceled FREDDIE CHANDRA 03/12/25 0342 EKG now - STAT (adult) Once Preliminary result THE, SLOANE S Labs personally interpreted by me demonstrate a BNP of 4700 up from 1999. This does correlate with the mild pulmonary edema and pleural effusion noted on CT scan from outside hospital. The patient also has a 2 point drop in his hemoglobin to 7.5. He has no electrolyte derangements or LETTY. His CRP is 44.9. The patient's troponin is elevated at 113. His prior troponin during his admission for his CABG was 57. EKG personally interpreted by me demonstrates atrial fibrillation with a rate of 106 beats per minute, normal axis, narrow QRS, QTC prolongation of 518 milliseconds. There is T-wave inversions in V1 through V3 without reciprocal changes. I did have an interactive discussion with the cardiac surgery service given the fact that this patient's troponins are elevated from prior and he is experiencing chest pain that has resolved best with nitroglycerin. We are awaiting their evaluation. I have also had an interactive discussion with the general surgery service who has agreed to evaluate the patient in the emergency department. General surgery presented to the bedside and elected to drain the abscess at the bedside. Cardiac surgery has evaluated the patient and has elected to admit the patient to their service andaccept primary responsibility of the patient moving forward. Clinical Impressions as of 03/12/25 0638 Gluteal abscess Chest pain, unspecified type Elevated troponin Social Determinates of Health Risks (including Economic Stability, Education and level of understanding, Healthcare access and quality and concerning social factors): None identified on this visit Ultimately, this patient was Was admitted ED Prescriptions None NegritoFreddie barnhartDO Resident 03/12/25 0639 [1] Past 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: Diagnosis Date Abnormal ECG BPH (benign prostatic hyperplasia) Cervical radiculopathy COPD (chronic obstructive pulmonary disease) ([facility]) Coronary artery disease GERD (gastroesophageal reflux disease) Heart valve disease Hypertension On mechanically assisted ventilation ([facility]) 02/21/2025 Intubated for procedure, arrived to ICU post-procedure intubated and sedated Wean as tolerated Fasttrack extubation [2] Past Surgical History: Procedure Laterality Date AORTIC VALVE REPLACEMENT 02/21/2025 Aortic valve replacement using a 29 mm Inspiris aortic bioprosthesis. (Dr. Lata Sahu) BACK SURGERY CORONARY ARTERY BYPASS GRAFT 02/21/2025 Coronary artery bypass grafting x4 with RODRIGUEZ to LAD, reverse saphenous vein graft to distal RCA, and reverse saphenous vein graft sequential to ramus intermedius artery and 2 obtuse marginal artery. (Dr. Lata Sahu) HERNIA REPAIR NECK SURGERY SHOULDER SURGERY [3] No family history on file. [4] Tobacco Use Smoking status: Former Types: Cigarettes Smokeless tobacco: Never Substance Use Topics Alcohol use: Not Currently Drug use: Not Currently [5] No Known Allergies Freddie Chandra DO Resident 03/12/25 0656 Cosigned by Sloane Jones MD at 03/13/2025 3:14 AM EDT Associated attestation - Sloane Jones MD - 03/13/2025 3:14 AM EDT I saw and evaluated the patient with the resident/fellow. I discussed the case with the resident/fellow and agree with the findings and plan as documented. * ED Triage Notes - Ashley Esteban RN - 03/12/2025 3:35 AM EDT Pt sent from OSH for c/o CP that started 03/11. Pt had a CABG 3 wks ago. documented in this encounter Plan of Treatment Upcoming Encounters Date Type Department Care Team (Late st Contact Info) Description 08/03/2025 12:40 PM EDT Office Visit [facility] [address] [place] [address] Dimitrios Wright MD [address] [place] [phone] Pending Results Name Type Priority Associated Diagnoses Date /Time Transfuse RBC Transfusion Administration Routine 03/13/2025 12:56 PM EDT documented as of this encounter Procedures Procedure Name Priority Date/Time Associated Diagnosis Comments XR CHEST 1 VIEW Routine 03/17/2025 5:20 AM EDT N-TERMINAL PROBNP, PLASMA Routine 03/17/2025 4:34 AM EDT CBC W/O DIFFERENTIAL Routine 03/17/2025 4:34 AM EDT MAGNESIUM, PLASMA Routine 03/17/2025 4:3 4 AM EDT BASIC METABOLIC PANEL, PLASMA Routine 03/17/2025 4:34 AM EDT HC CARDIOVERSION ELECTIVE ARRHYTHMIA EXTERNAL Routine 03/16/2025 12:42 PM EDT Persistent atrial fibrillation (CMS/HCC) NM CARDIOVERSION, ELECTIVE;FOOD PRODUCTS TESTER Routine 03/16/2025 12:42 PM EDT Persistent atrial fibrillation (CMS/HCC) CT ANGIO CARDIAC STRUCTURE MORPHOLOGY Routine 03/16/2025 8:48 AM EDT XR CHEST 1 VIEW Routine 03/16/2025 4:55 AM EDT N-TERMINAL PROBNP, PLASMA Pending Discharge 03/16/2025 4:31 AM EDT CBC W/O DIFFERENTIAL Routine 03/16/2025 4:31 AM EDT MAGNESIUM, PLASMA Routine 03/16/2025 4:3 1 AM EDT COMPREHENSIVE METABOLIC PANEL, PLASMA Routine 03/16/2025 4:31 AM EDT WOUND OSTOMY EVAL AND TREAT Routine 03/15/2025 10:55 AM EDT XR CHEST 1 VIEW Routine 03/15/2025 4:34 AM EDT CBC W/O DIFFERENTIAL Pending Discharge 03/15/2025 3:59 AM EDT C-REACTIVE PROTEIN, PLASMA Add-On 03/15/2025 3:59 AM EDT MAGNESIUM, PLASMA Pending Discharge 03/15/2025 3:59 AM EDT COMPREHENSIVE METABOLIC PANEL, PLASMA Pending Discharge 03/15/2025 3:59 AM EDT XR CHEST 1 VIEW Routine 03/14/2025 5:22 AM EDT CBC W/O DIFFERENTIAL Pending Discharge 03/14/2025 5:05 AM EDT MAGNESIUM, PLASMA Pending Discharge 03/14/2025 5:05 AM EDT COMPREHENSIVE METABOLIC PANEL, PLASMA Pending Discharge 03/14/2025 5:05 AM EDT WOUND OSTOMY EVAL AND TREAT Routine 03/14/2025 12:35 AM EDT PREPARE RBC Routine 03/13/2025 12:28 PM EDT CBC W/O DIFFERENTIAL Routine 03/13/2025 4:37 AM EDT MAGNESIUM, PLASMA Routine 03/13/2025 4:3 7 AM EDT COMPREHENSIVE METABOLIC PANEL, PLASMA Routine 03/13/2025 4:37 AM EDT XR CHEST 1 VIEW Routine 03/13/2025 4:33 AM EDT CBC W/O DIFFERENTIAL Routine 03/12/2025 10:06 PM EDT TRANSFUSE RED BLOOD CELLS Routine 03/12/2025 3:39 PM EDT IRON & TOTAL IRON BINDING CAPACITY, PLASMA (INCLUDES TRANSFERRIN) Routine 03/12/2025 2:21 PM EDT TYPE AND SCREEN Routine 03/12/2025 2:21 PM EDT PREPARE RBC Routine 03/12/2025 1:01 PM EDT ECHO, ADULT TRANSTHORACIC COMPLETE STAT 03/12/2025 11:07 AM EDT TROPONIN T, HIGH SENSITIVITY, 2 HOUR, PLASMA Timed 03/12/2025 6:52 AM EDT WOUND CULTURE AND GRAM STAIN Routine 03/12/2025 6:52 AM EDT NM DRAIN SKIN ABSCESS COMPLIC Routine 03/12/2025 5:54 AM EDT Gluteal abscess XR CHEST 1 VIEW STAT 03/12/2025 4:11 AM EDT TROPONIN T, HIGH SENSITIVITY, 0 HOUR, PLASMA, REFLEX TO 2 HOUR STAT 03/12/2025 3:59 AM EDT N-TERMINAL PROBNP, PLASMA STAT 03/12/2025 3:59 AM EDT ANTI XA LEVEL LOW MOLECULAR WEIGHT HEPARIN STAT 03/12/2025 3:59 AM EDT CBC WITH AUTO DIFFERENTIAL STAT 03/12/2025 3:59 AM EDT C-REACTIVE PROTEIN, PLASMA STAT Add-on 03/12/2025 3:59 AM EDT LIPASE, PLASMA STAT 03/12/2025 3:59 AM EDT COMPREHENSIVE METABOLIC PANEL, PLASMA STAT 03/12/2025 3:59 AM EDT ECG ADULT STAT 03/12/2025 3:43 AM EDT documented in this encounter Results * XR Chest 1 View (03/17/2025 5:20 AM EDT) Anatomical Region Laterality Modality Chest Digital Radiogra phy Impressions 03/17/2025 7:38 AM EDT Stable exam. CRITICAL RESULT: No. COMMUNICATION: Per this written report. Drafted by Dinah Parker MD on 03/17/2025 7:38 AM Final report signed by Dinah Parker MD on 03/17/2025 7:38 AM Narrative 03/17/2025 7:38 AM EDT CLINICAL INDICATION: s/p vAVR & CABG with readmission for vol overload TECHNIQUE: XR CHEST 1 VIEW COMPARISON: 03/16/2025 FINDINGS: Stable cardiomediastinal contours and cardiac enlargement. Postoperative mediastinum. Vascular congestion. Incomplete imaging of the right costophrenic angle. No enlarging pleural effusion. Procedure Note Dinah Parker MD - 03/17/2025 CLINICAL INDICATION: s/p vAVR & CABG with readmission for vol overload TECHNIQUE: XR CHEST 1 VIEW COMPARISON: 03/16/2025 FINDINGS: Stable cardiomediastinal contours and cardiac enlargement. Postoperativemediastinum. Vascular congestion. Incomplete imaging of the rightcostophrenic angle. No enlarging pleural effusion. IMPRESSION: Stable exam. CRITICAL RESULT: No. COMMUNICATION: Per this written report. Drafted by Dinah Parker MD on 03/17/2025 7:38 AM Final report signed by Dinah Parker MD on 03/17/2025 7:38 AM Marily Garcia BLIND STITCH 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 IMG XR PROCEDURES Final Resu lt * (ABNORMAL) N-Terminal Probnp, Plasma (03/17/2025 4:34 AM EDT) N-Terminal, PROBNP, Plasma 2,670(H) 0 - 899 pg/mL 03/17/2025 6:05 AM EDT [facility] Blood Venous blood specimen / Unknown Venipuncture / Unknown 03/17/2025 4:34 AM EDT 03/17/2025 5:25 AM EDT Marily Garcia BLIND STITCH 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 LAB BLOOD ORDERABLES Final R esult Performing Organization Address [facility]/ZIP Co de Phone Number [facility] [address] [place] [address] * Magnesium, Plasma (03/17/2025 4:34 AM EDT) Magnesium, Plasma 1.9 1.9 - 2.4 mg/dL 03/17/2025 6:05 AM EDT [facility] Blood Venous blood specimen / Unknown Venipuncture / Unknown 03/17/2025 4:34 AM EDT 03/17/2025 5:25 AM EDT us Marily Garcia BLIND STITCH 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 LAB BLOOD ORDERABLES Final R esult Performing Organization Address City/[facility] Co de Phone Number [facility] [address] [place] [address] * (ABNORMAL) Basic Metabolic Panel, Plasma (03/17/2025 4:34 AM EDT) Glucose, Plasma 80 74 - 99 mg/dL 03/17/2025 6:05 AM EDT [facility] BUN, Plasma 19 8 - 23 mg/dL 03/17/2025 6:05 AM EDT [facility] Creatinine, Plasma 0.85 0.70 - 1.20 mg/dL 03/17/2025 6:05 AM EDT [facility] BUN/Creatinine Ratio 22 03/17/2025 6:05 AM EDT [facility] Sodium, Plasma 131(L) 136 - 145 mmol/L 03/17/2025 6:05 AM EDT [facility] Potassium, Plasma 4.1 3.6 - 4.9 mmol/L 03/17/2025 6:05 AM EDT [facility] Chloride, Plasma 100 97 - 107 mmol/L 03/17/2025 6:05 AM EDT [facility] CO2, Plasma 20(L) 22 - 29 mmol/L 03/17/2025 6:05 AM EDT [facility] Anion Gap 11 6 - 16 mmol/L 03/17/2025 6:05 AM EDT [facility] Total Calcium, Plasma 8.0(L) 8.9 - 10.2 mg/dL 03/17/2025 6:05 AM EDT [facility] eGFRcr 95.8 mL/min/1.7 3m*2 03/17/2025 6:05 AM EDT [facility] Comment:Reported eGFRcr in m L/min/1.73m2 is based the CKD-EPI 2020 equation that does not use a race coefficient. Blood Venous blood specimen / Unknown Venipuncture / Unknown 03/17/2025 4:34 AM EDT 03/17/2025 5:25 AM EDT us Marily Garcia BLIND STITCH 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 LAB BLOOD ORDERABLES Final R esult [facility] [address] [place] [address] * (ABNORMAL) CBC W/O Differential (03/17/2025 4:34 AM EDT) WBC Count 8.24 3.70 - 10.30 10*3/uL LAB HEMATOLOGY METHOD 03/17/2025 5:55 AM EDT [facility] RBC Count 2.70(L) 4.60 - 6.10 10*6/uL LAB HEMATOLOGY METHOD 03/17/2025 5:55 AM EDT [facility] HGB 7.6(L) 13.7 - 17.5 g/dL LAB HEMATOLOGY METHOD 03/17/2025 5:55 AM EDT [facility] HCT 25.0(L) 40.0 - 51.0 % LAB HEMATOLOGY METHOD 03/17/2025 5:55 AM EDT [facility] Platelet Count 214 155 - 369 10*3/uL LAB HEMATOLOGY METHOD 03/17/2025 5:55 AM EDT [facility] MCV 93 79 - 98 fL LAB HEMATOLOGY METHOD 03/17/2025 5:55 AM EDT [facility] MCH 28.1 26.0 - 32.0 pg LAB HEMATOLOGY METHOD 03/17/2025 5:55 AM EDT [facility] MCHC 30.4(L) 30.7 - 35.5 g/dL LAB HEMATOLOGY METHOD 03/17/2025 5:55 AM EDT [facility] RDW 19.4(H) 11.5 - 14.5 % LAB HEMATOLOGY METHOD 03/17/2025 5:55 AM EDT [facility] MPV 10.2 8.8 - 12.5 fL LAB HEMATOLOGY METHOD 03/17/2025 5:55 AM EDT [facility] nRBC 0.0 <=0.0 per 100 WBCs LAB HEMATOLOGY METHOD 03/17/2025 5:55 AM EDT [facility] Blood Venous blood specimen / Unknown Venipuncture / Unknown 03/17/2025 4:34 AM EDT 03/17/2025 5:27 AM EDT us Marily Garcia APRN LAB BLOOD ORDERABLES Final R esult [facility] [address] [place] [address] * NM CARDIOVERSION, ELECTIVE;FOOD PRODUCTS TESTER, HC CARDIOVERSION ELECTIVE ARRHYTHMIA EXTERNAL (03/16/2025 12:42 PM EDT) Narrative Dimitrios Wright MD - 03/16/2025 12:42 PM EDT Dimitrios Wright MD 03/17/2025 8:03 AM Electrical Cardioversion Performed by: Negrito Galvan MD Authorized by: Lata Sahu MD Consent: Consent obtained: Written Consent given by: Patient Risks, benefits, and alternatives were discussed: yes Risks discussed: Cutaneous burn, induced arrhythmia, and pain Alternatives discussed: Rate-control medication Kiefer protocol: Procedure explained and questions answered to patient or proxy's satisfaction: yes Relevant documents present and verified: yes Test results available: yes Immediately prior to procedure, a time out was called: yes Patient identity confirmed: Hospital-assigned identification number and arm band Attending Supervision?: yes Pre-procedure details: Cardioversion basis: Elective Rhythm: Atrial fibrillation Attempt one: Cardioversion mode: Synchronous Waveform: Biphasic Shock (Joules): 200 Shock outcome: Conversion to normal sinus rhythm Post-procedure details: Procedure completion: Tolerated well, no immediate complications us Lata Sahu MD IN CLINIC/BEDSIDE ORDERABLES Fi nal Result * CT Angio Cardiac Structure Morphology (03/16/2025 8:48 AM EDT) Anatomical Region Laterality Modality Heart Computed Tomogra phy Impressions 03/16/2025 10:24 AM EDT 1. No evidence of left atrial or left atrial appendage thrombus. 2. Multi-vessel coronary artery calcifications with partially visualized bypass grafts to the RCA, LAD and LCx grossly patent. 3. Small bibasilar pleural effusion with compression atelectasis. Critical Result: No. COMMUNICATION: Per this written report. By electronically signing this report, I, the attending physician, attest that I have personally reviewed the images/data for the above examination(s) and agree with the final edited report. Drafted by Chema Arteaga on 03/16/2025 8:57 AM Final report signed by Ana Luisa Pinto on 03/16/2025 10:24 AM Narrative 03/16/2025 10:24 AM EDT CLINICAL INFORMATION: 64 years old Male with a past medical history of coronary artery disease status post CABG, status post aortic valve replacement and atrial fibrillation who presents for cardiac CTA evaluation prior to planned cardioversion scheduled on 03/16/2025. Height: 180 cm Weight: 100 kg Comparison: Echocardiography 03/12/2025 SCAN TECHNIQUE: Image Acquisition and Reconstruction: A Dual source 192 MDCT scanner ([employer], [employer]) was used for data acquisition. Bolus tracking in the left atrium with a threshold of 180 HU was performed. Immediately afterwards, Cardiac CT was then performed from cardiac base to apex using ECG gatedTurbo Flash mode. A 45-second delayed scan was performed using ECG gated TurboFlash mode for assessment of thrombus. A total of 80 mL Omnipaque 350mgI/mL contrast media was administered followed by a saline flush using a biphasic injection protocol. Transaxial images were reconstructed at 0.75 mm slice thickness. Data was reviewed interactively on an advanced workstation ([email or web address]) capable of 2 and 3 dimensional displays in all conventional reconstruction formats including multiplanar reformations, maximum intensity projections, curved multiplanar reformations, and volume rendered reconstructions. Selected routine images displaying relevant coronary anatomy and pathology were saved and sent to PACS. Total DLP (Dose-Length Product): 188.38 mGy.cm. Please note: The reported value represents the total of one or more individual components during the CT acquisition on this date and at this time, and as such, the same value may appear in more than one CT report depending on the interpreting/reporting physicians. Technical Quality: Overall image quality is Excellent. Pulmonary vein opacification is Excellent and the images are free of significant artifact. FINDINGS: --- Cardiac Findings --- No evidence of left atrial or left atrial appendage thrombus. Normal cardiac chamber size. No significant pericardial effusion, thickening, or calcification. Normal interatrial and interventricular septum. Bioprosthetic aortic valve noted and appears intact and in appropriate position. Grossly normal mitral valve. Multivessel coronary artery calcification. Bypass grafts in the field of view (SVG to RCA, partially visualized grafts to the LAD and LCx) appear patent. --- Extra Cardiac Structures --- Small bibasilar pleural effusions with compression atelectasis. Bilateral emphysematous changes noted. Normal pulmonary vein anatomy. Scattered atherosclerotic disease of the partially imaged thoracic aorta without evidence of aneurysm. Central and branch pulmonary arteries in the field of view are unremarkable. No suspicious pulmonary nodules. No suspicious lesion in the visualized portion of the upper abdomen. Degenerative changes of the thoracic spine. There are no obvious significant extra-cardiac findings in the available limited views of the lungs, mediastinum, and upper abdomen. Procedure Note Ana Luisa Pinto MD - 03/16/2025 CLINICAL INFORMATION: 64 years old Male with a past medical history of coronary artery diseasestatus post CABG, status post aortic valve replacement and atrialfibrillation who presents for cardiac CTA evaluation prior to plannedcardioversion scheduled on 03/16/2025. Height: 180 cm Weight: 100 kg Comparison: Echocardiography 03/12/2025 SCAN TECHNIQUE: Image Acquisition and Reconstruction: A Dual source 192 MDCT scanner ([employer] Force, [employer])was used for data acquisition. Bolus tracking in the left atrium with athreshold of 180 HU was performed. Immediately afterwards, Cardiac CT wasthen performed from cardiac base to apex using ECG gatedTurbo Flash mode.A 45-second delayed scan was performed using ECG gated TurboFlash mode forassessment of thrombus. A total of 80 mL Omnipaque 350mgI/mL contrastmedia was administered followed by a saline flush using a biphasicinjection protocol. Transaxial images were reconstructed at 0.75 mm slicethickness. Data was reviewed interactively on an advanced workstation([email or web address]) capable of 2 and 3 dimensional displays in all conventionalreconstruction formats including multiplanar reformations, maximumintensity projections, curved multiplanar reformations, and volumerendered reconstructions. Selected routine images displaying relevantcoronary anatomy and pathology were saved and sent to PACS. Total DLP (Dose-Length Product): 188.38 mGy.cm. Please note: The reportedvalue represents the total of one or more individual components during theCT acquisition on this date and at this time, and as such, the same valuemay appear in more than one CT report depending on theinterpreting/reporting physicians. Technical Quality: Overall image quality is Excellent. Pulmonary vein opacification is Excellent and the images are free ofsignificant artifact. FINDINGS: --- Cardiac Findings --- No evidence of left atrial or left atrial appendage thrombus. Normalcardiac chamber size. No significant pericardial effusion, thickening, orcalcification. Normal interatrial and interventricular septum.Bioprosthetic aortic valve noted and appears intact and in appropriateposition. Grossly normal mitral valve. Multivessel coronary arterycalcification. Bypass grafts in the field of view (SVG to RCA, partiallyvisualized grafts to the LAD and LCx) appear patent. --- Extra Cardiac Structures --- Small bibasilar pleural effusions with compression atelectasis. Bilateralemphysematous changes noted. Normal pulmonary vein anatomy. Scatteredatherosclerotic disease of the partially imaged thoracic aorta withoutevidence of aneurysm. Central and branch pulmonary arteries in the fieldof view are unremarkable. No suspicious pulmonary nodules. No suspiciouslesion in the visualized portion of the upper abdomen. Degenerativechanges of the thoracic spine. There are no obvious significantextra-cardiac findings in the available limited views of the lungs,mediastinum, and upper abdomen. IMPRESSION: 1. No evidence of left atrial or left atrial appendage thrombus. 2. Multi-vessel coronary artery calcifications with partially visualizedbypass grafts to the RCA, LAD and LCx grossly patent. 3. Small bibasilar pleural effusion with compression atelectasis. Critical Result: No. COMMUNICATION: Per this written report. By electronically signing this report, I, the attending physician, attestthat I have personally reviewed the images/data for the aboveexamination(s) and agree with the final edited report. Drafted by Chema Arteaga on 03/16/2025 8:57 AM Final report signed by Ana Luisa Pinto on 03/16/2025 10:24 AM us Mellisa 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 IMG CT PROCEDURES Final Result * XR Chest 1 View (03/16/2025 4:55 AM EDT) Anatomical Region Laterality Modality Chest Digital Radiogra phy Impressions 03/16/2025 8:13 AM EDT Improved interstitial edema. CRITICAL RESULT: No. COMMUNICATION: Per this written report. By electronically signing this report, I, the attending physician, attest that I have personally reviewed the images/data for the above examination(s) and agree with the final edited report. Drafted by ROBERT Mendoza on 03/16/2025 8:10 AM Final report signed by Gerardo Iglesias MD on 03/16/2025 8:13 AM Narrative 03/16/2025 8:13 AM EDT CLINICAL INDICATION: evaluate lung harrison TECHNIQUE: XR CHEST 1 VIEW COMPARISON: March 15, 2025 FINDINGS: Stable support hardware and postoperative changes. Cardiac silhouette and mediastinal contours are stable. Interstitial edema has slightly improved. No new pulmonary opacities. No pneumothorax. Procedure Note Gerardo Iglesias MD - 03/16/2025 CLINICAL INDICATION: evaluate lung harrison TECHNIQUE: XR CHEST 1 VIEW COMPARISON: March 15, 2025 FINDINGS: Stable support hardware and postoperative changes. Cardiac silhouetteand mediastinal contours are stable. Interstitial edema has slightlyimproved. No new pulmonary opacities. No pneumothorax. IMPRESSION: Improved interstitial edema. CRITICAL RESULT: No. COMMUNICATION: Per this written report. By electronically signing this report, I, the attending physician, attestthat I have personally reviewed the images/data for the aboveexamination(s) and agree with the final edited report. Drafted by ROBERT Mendoza on 03/16/2025 8:10 AM Final report signed by Gerardo Iglesias MD on 03/16/2025 8:13 AM Mellisa Tian APRN IMG XR PROCEDURES Final Result * (ABNORMAL) N-Terminal Probnp, Plasma (03/16/2025 4:31 AM EDT) N-Terminal, PROBNP, Plasma 5,166(H) 0 - 899 pg/mL 03/16/2025 5:27 AM EDT [facility] Blood Venous blood specimen / Unknown Venipuncture / Unknown 03/16/2025 4:31 AM EDT 03/16/2025 4:57 AM EDT Mary Ann SANDOVAL LAB BLOOD ORDERABLES Final Result Performing Organization Address City/[facility]/ZIP Co de Phone Number [facility] [address] [place] [address] * Magnesium (03/16/2025 4:31 AM EDT) Magnesium, Plasma 1.9 1.9 - 2.4 mg/dL 03/16/2025 5:27 AM EDT [facility] Blood Venous blood specimen / Unknown Venipuncture / Unknown 03/16/2025 4:31 AM EDT 03/16/2025 4:57 AM EDT Mellisa Tian APRN LAB BLOOD ORDERABLES Final Res ult [facility] [address] [place] [address] * (ABNORMAL) Comprehensive metabolic panel (03/16/2025 4:31 AM EDT) Glucose, Plasma 135(H) 74 - 99 mg/dL 03/16/2025 5:27 AM EDT [facility] BUN, Plasma 20 8 - 23 mg/dL 03/16/2025 5:27 AM EDT [facility] Creatinine, Plasma 0.82 0.70 - 1.20 mg/dL 03/16/2025 5:27 AM EDT [facility] BUN/Creatinine Ratio 24 03/16/2025 5:27 AM EDT [facility] Sodium, Plasma 131(L) 136 - 145 mmol/L 03/16/2025 5:27 AM EDT [facility] Potassium, Plasma 4.1 3.6 - 4.9 mmol/L 03/16/2025 5:27 AM EDT [facility] Comment:Hemolyzed, result ma y be falsely increased. Chloride, Plasma 100 97 - 107 mmol/L 03/16/2025 5:27 AM EDT [facility] CO2, Plasma 21(L) 22 - 29 mmol/L 03/16/2025 5:27 AM EDT [facility] Anion Gap 10 6 - 16 mmol/L 03/16/2025 5:27 AM EDT [facility] Total Calcium, Plasma 8.1(L) 8.9 - 10.2 mg/dL 03/16/2025 5:27 AM EDT [facility] Total Protein 5.4(L) 6.3 - 7.9 g/dL 03/16/2025 5:27 AM EDT [facility] Albumin, Plasma 2.6(L) 3.5 - 5.2 g/dL 03/16/2025 5:27 AM EDT [facility] AST, Plasma 50 10 - 50 U/L 03/16/2025 5:27 AM EDT [facility] Comment:Hemolyzed, result ma y be falsely increased. ALT, Plasma 33 10 - 50 U/L 03/16/2025 5:27 AM EDT [facility] Alkaline Phosphatase, Plasma 88 40 - 115 U/L 03/16/2025 5:27 AM EDT [facility] Total Bilirubin, Plasma 0.9 0.2 - 1.1 mg/dL 03/16/2025 5:27 AM EDT [facility] eGFRcr 96.9 mL/min/1.7 3m*2 03/16/2025 5:27 AM EDT [facility] Comment:Reported eGFRcr in m L/min/1.73m2 is based the CKD-EPI 2020 equation that does not use a race coefficient. Blood Venous blood specimen / Unknown Venipuncture / Unknown 03/16/2025 4:31 AM EDT 03/16/2025 4:57 AM EDT us Mellisa Tian APRN LAB BLOOD ORDERABLES Final Res ult [facility] [address] [place] [address] * (ABNORMAL) Hemogram (CBC) (03/16/2025 4:31 AM EDT) WBC Count 8.58 3.70 - 10.30 10*3/uL LAB HEMATOLOGY METHOD 03/16/2025 5:07 AM EDT [facility] RBC Count 2.78(L) 4.60 - 6.10 10*6/uL LAB HEMATOLOGY METHOD 03/16/2025 5:07 AM EDT [facility] HGB 7.9(L) 13.7 - 17.5 g/dL LAB HEMATOLOGY METHOD 03/16/2025 5:07 AM EDT [facility] HCT 25.2(L) 40.0 - 51.0 % LAB HEMATOLOGY METHOD 03/16/2025 5:07 AM EDT [facility] Platelet Count 227 155 - 369 10*3/uL LAB HEMATOLOGY METHOD 03/16/2025 5:07 AM EDT [facility] MCV 91 79 - 98 fL LAB HEMATOLOGY METHOD 03/16/2025 5:07 AM EDT [facility] MCH 28.4 26.0 - 32.0 pg LAB HEMATOLOGY METHOD 03/16/2025 5:07 AM EDT [facility] MCHC 31.3 30.7 - 35.5 g/dL LAB HEMATOLOGY METHOD 03/16/2025 5:07 AM EDT [facility] RDW 19.2(H) 11.5 - 14.5 % LAB HEMATOLOGY METHOD 03/16/2025 5:07 AM EDT [facility] MPV 9.9 8.8 - 12.5 fL LAB HEMATOLOGY METHOD 03/16/2025 5:07 AM EDT [facility] nRBC 0.0 <=0.0 per 100 WBCs LAB HEMATOLOGY METHOD 03/16/2025 5:07 AM EDT [facility] Blood Venous blood specimen / Unknown Venipuncture / Unknown 03/16/2025 4:31 AM EDT 03/16/2025 4:59 AM EDT us Mellisa 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 LAB BLOOD ORDERABLES Final Res ult [facility] [address] [place] [address] * XR Chest 1 View (03/15/2025 4:34 AM EDT) Anatomical Region Laterality Modality Chest Digital Radiogra phy Impressions 03/15/2025 9:52 AM EDT Stable exam. CRITICAL RESULT: No. COMMUNICATION: Per this written report. By electronically signing this report, I, the attending physician, attest that I have personally reviewed the images/data for the above examination(s) and agree with the final edited report. Drafted by ROBERT Mendoza on 03/15/2025 9:17 AM Final report signed by Arik Ellis MD on 03/15/2025 9:52 AM Narrative 03/15/2025 9:52 AM EDT CLINICAL INDICATION: evaluate lung harrison TECHNIQUE: XR CHEST 1 VIEW COMPARISON: March 14, 2025. . FINDINGS: Stable support hardware. Cardiac silhouette and mediastinal contours are stable. No new pulmonary opacities. No pneumothorax. Procedure Note Arik Ellis MD - 03/15/2025 CLINICAL INDICATION: evaluate lung harrison TECHNIQUE: XR CHEST 1 VIEW COMPARISON: March 14, 2025. . FINDINGS: Stable support hardware. Cardiac silhouette and mediastinal contours arestable. No new pulmonary opacities. No pneumothorax. IMPRESSION: Stable exam. CRITICAL RESULT: No. COMMUNICATION: Per this written report. By electronically signing this report, I, the attending physician, attestthat I have personally reviewed the images/data for the aboveexamination(s) and agree with the final edited report. Drafted by ROBERT Mendoza on 03/15/2025 9:17 AM Final report signed by Arik Ellis MD on 03/15/2025 9:52 AM Mellisa Tian APRN IMG XR PROCEDURES Final Result * (ABNORMAL) C-Reactive Protein, Plasma (03/15/2025 3:59 AM EDT) CRP, Plasma 115.2(H) <=8.0 mg/L 03/15/2025 9:00 PM EDT [facility] Blood Venous blood specimen / Unknown Venipuncture / Unknown 03/15/2025 3:59 AM EDT 03/15/2025 4:08 AM EDT Narrative [facility] - 03/15/2025 9:00 PM EDT This CRP test is appropriate for assessment of infection, systemic inflammation and/or tissue injury. To assess cardiovascular disease risk order high sensitivity CRP (CRPH). Mary Ann SANDOVAL LAB BLOOD ORDERABLES Final Result Performing Organization Address City/[facility]/ZIP Co de Phone Number [facility] [address] [place] [address] * Magnesium (03/15/2025 3:59 AM EDT) Magnesium, Plasma 1.9 1.9 - 2.4 mg/dL 03/15/2025 4:40 AM EDT [facility] Blood Venous blood specimen / Unknown Venipuncture / Unknown 03/15/2025 3:59 AM EDT 03/15/2025 4:08 AM EDT Mellisa Tian APRN LAB BLOOD ORDERABLES Final Res ult [facility] [address] [place] [address] * (ABNORMAL) Comprehensive metabolic panel (03/15/2025 3:59 AM EDT) Glucose, Plasma 91 74 - 99 mg/dL 03/15/2025 4:40 AM EDT [facility] BUN, Plasma 24(H) 8 - 23 mg/dL 03/15/2025 4:40 AM EDT [facility] Creatinine, Plasma 0.84 0.70 - 1.20 mg/dL 03/15/2025 4:40 AM EDT [facility] BUN/Creatinine Ratio 29 03/15/2025 4:40 AM EDT [facility] Sodium, Plasma 130(L) 136 - 145 mmol/L 03/15/2025 4:40 AM EDT [facility] Potassium, Plasma 4.1 3.6 - 4.9 mmol/L 03/15/2025 4:40 AM EDT [facility] Chloride, Plasma 98 97 - 107 mmol/L 03/15/2025 4:40 AM EDT [facility] CO2, Plasma 23 22 - 29 mmol/L 03/15/2025 4:40 AM EDT [facility] Anion Gap 9 6 - 16 mmol/L 03/15/2025 4:40 AM EDT [facility] Total Calcium, Plasma 8.3(L) 8.9 - 10.2 mg/dL 03/15/2025 4:40 AM EDT [facility] Total Protein 5.7(L) 6.3 - 7.9 g/dL 03/15/2025 4:40 AM EDT [facility] Albumin, Plasma 2.9(L) 3.5 - 5.2 g/dL 03/15/2025 4:40 AM EDT [facility] AST, Plasma 39 10 - 50 U/L 03/15/2025 4:40 AM EDT [facility] Comment:Hemolyzed, result ma y be falsely increased. ALT, Plasma 28 10 - 50 U/L 03/15/2025 4:40 AM EDT [facility] Alkaline Phosphatase, Plasma 78 40 - 115 U/L 03/15/2025 4:40 AM EDT [facility] Total Bilirubin, Plasma 0.9 0.2 - 1.1 mg/dL 03/15/2025 4:40 AM EDT [facility] eGFRcr 96.2 mL/min/1.7 3m*2 03/15/2025 4:40 AM EDT [facility] Comment:Reported eGFRcr in m L/min/1.73m2 is based the CKD-EPI 2020 equation that does not use a race coefficient. Blood Venous blood specimen / Unknown Venipuncture / Unknown 03/15/2025 3:59 AM EDT 03/15/2025 4:08 AM EDT us Mellisa 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 LAB BLOOD ORDERABLES Final Res ult [facility] [address] [place] [address] * (ABNORMAL) Hemogram (CBC) (03/15/2025 3:59 AM EDT) WBC Count 11.15(H) 3.70 - 10.30 10*3/uL LAB HEMATOLOGY METHOD 03/15/2025 4:23 AM EDT [facility] RBC Count 2.94(L) 4.60 - 6.10 10*6/uL LAB HEMATOLOGY METHOD 03/15/2025 4:23 AM EDT [facility] HGB 8.3(L) 13.7 - 17.5 g/dL LAB HEMATOLOGY METHOD 03/15/2025 4:23 AM EDT [facility] HCT 26.6(L) 40.0 - 51.0 % LAB HEMATOLOGY METHOD 03/15/2025 4:23 AM EDT [facility] Platelet Count 222 155 - 369 10*3/uL LAB HEMATOLOGY METHOD 03/15/2025 4:23 AM EDT [facility] MCV 91 79 - 98 fL LAB HEMATOLOGY METHOD 03/15/2025 4:23 AM EDT [facility] MCH 28.2 26.0 - 32.0 pg LAB HEMATOLOGY METHOD 03/15/2025 4:23 AM EDT [facility] MCHC 31.2 30.7 - 35.5 g/dL LAB HEMATOLOGY METHOD 03/15/2025 4:23 AM EDT [facility] RDW 18.9(H) 11.5 - 14.5 % LAB HEMATOLOGY METHOD 03/15/2025 4:23 AM EDT [facility] MPV 9.9 8.8 - 12.5 fL LAB HEMATOLOGY METHOD 03/15/2025 4:23 AM EDT [facility] nRBC 0.2(H) <=0.0 per 100 WBCs LAB HEMATOLOGY METHOD 03/15/2025 4:23 AM EDT [facility] Blood Venous blood specimen / Unknown Venipuncture / Unknown 03/15/2025 3:59 AM EDT 03/15/2025 4:10 AM EDT us Mellisa Tian APRN LAB BLOOD ORDERABLES Final Res ult [facility] [address] [place] [address] * XR Chest 1 View (03/14/2025 5:22 AM EDT) Anatomical Region Laterality Modality Chest Digital Radiogra phy Impressions 03/14/2025 5:35 PM EDT Increased basal prominent airspace opacities. CRITICAL RESULT: No. COMMUNICATION: Per this written report. Drafted by Fer Castano MD on 03/14/2025 4:38 PM Final report signed by Fer Castano MD on 03/14/2025 5:35 PM Narrative 03/14/2025 5:35 PM EDT CLINICAL INDICATION: evaluate lung harrison TECHNIQUE: XR CHEST 1 VIEW COMPARISON: March 13, 2025 FINDINGS: Stable appearance of cardiac and mediastinal silhouette post median sternotomy. Increased basal and mid lung airspace opacities. No pneumothorax. Procedure Note Fer Castano MD - 03/14/2025 CLINICAL INDICATION: evaluate lung harrison TECHNIQUE: XR CHEST 1 VIEW COMPARISON: March 13, 2025 FINDINGS: Stable appearance of cardiac and mediastinal silhouette post mediansternotomy. Increased basal and mid lung airspace opacities. Nopneumothorax. IMPRESSION: Increased basal prominent airspace opacities. CRITICAL RESULT: No. COMMUNICATION: Per this written report. Drafted by Fer Castano MD on 03/14/2025 4:38 PM Final report signed by Fer Castano MD on 03/14/2025 5:35 PM us Mellisa Tian APRN IMG XR PROCEDURES Final Result * Magnesium (03/14/2025 5:05 AM EDT) Magnesium, Plasma 2.1 1.9 - 2.4 mg/dL 03/14/2025 6:07 AM EDT [facility] Blood Venous blood specimen / Unknown Venipuncture / Unknown 03/14/2025 5:05 AM EDT 03/14/2025 5:15 AM EDT Mellisa 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 LAB BLOOD ORDERABLES Final Res ult [facility] [address] [place] [address] * (ABNORMAL) Comprehensive metabolic panel (03/14/2025 5:05 AM EDT) Glucose, Plasma 97 74 - 99 mg/dL 03/14/2025 6:07 AM EDT [facility] BUN, Plasma 32(H) 8 - 23 mg/dL 03/14/2025 6:07 AM EDT [facility] Creatinine, Plasma 0.86 0.70 - 1.20 mg/dL 03/14/2025 6:07 AM EDT [facility] BUN/Creatinine Ratio 37 03/14/2025 6:07 AM EDT [facility] Sodium, Plasma 131(L) 136 - 145 mmol/L 03/14/2025 6:07 AM EDT [facility] Potassium, Plasma 4.3 3.6 - 4.9 mmol/L 03/14/2025 6:07 AM EDT [facility] Chloride, Plasma 99 97 - 107 mmol/L 03/14/2025 6:07 AM EDT [facility] CO2, Plasma 20(L) 22 - 29 mmol/L 03/14/2025 6:07 AM EDT [facility] Anion Gap 12 6 - 16 mmol/L 03/14/2025 6:07 AM EDT [facility] Total Calcium, Plasma 8.4(L) 8.9 - 10.2 mg/dL 03/14/2025 6:07 AM EDT [facility] Total Protein 5.6(L) 6.3 - 7.9 g/dL 03/14/2025 6:07 AM EDT [facility] Albumin, Plasma 2.9(L) 3.5 - 5.2 g/dL 03/14/2025 6:07 AM EDT [facility] AST, Plasma 32 10 - 50 U/L 03/14/2025 6:07 AM EDT [facility] Comment:Hemolyzed, result ma y be falsely increased. ALT, Plasma 26 10 - 50 U/L 03/14/2025 6:07 AM EDT [facility] Alkaline Phosphatase, Plasma 81 40 - 115 U/L 03/14/2025 6:07 AM EDT [facility] Total Bilirubin, Plasma 1.1 0.2 - 1.1 mg/dL 03/14/2025 6:07 AM EDT [facility] eGFRcr 95.5 mL/min/1.7 3m*2 03/14/2025 6:07 AM EDT [facility] Comment:Reported eGFRcr in m L/min/1.73m2 is based the CKD-EPI 2020 equation that does not use a race coefficient. Blood Venous blood specimen / Unknown Venipuncture / Unknown 03/14/2025 5:05 AM EDT 03/14/2025 5:15 AM EDT Mellisa Tian APRN LAB BLOOD ORDERABLES Final Res ult [facility] [address] [place] [address] * (ABNORMAL) Hemogram (CBC) (03/14/2025 5:05 AM EDT) WBC Count 13.12(H) 3.70 - 10.30 10*3/uL LAB HEMATOLOGY METHOD 03/14/2025 5:23 AM EDT [facility] RBC Count 3.11(L) 4.60 - 6.10 10*6/uL LAB HEMATOLOGY METHOD 03/14/2025 5:23 AM EDT [facility] HGB 8.6(L) 13.7 - 17.5 g/dL LAB HEMATOLOGY METHOD 03/14/2025 5:23 AM EDT [facility] HCT 27.5(L) 40.0 - 51.0 % LAB HEMATOLOGY METHOD 03/14/2025 5:23 AM EDT [facility] Platelet Count 231 155 - 369 10*3/uL LAB HEMATOLOGY METHOD 03/14/2025 5:23 AM EDT [facility] MCV 88 79 - 98 fL LAB HEMATOLOGY METHOD 03/14/2025 5:23 AM EDT [facility] MCH 27.7 26.0 - 32.0 pg LAB HEMATOLOGY METHOD 03/14/2025 5:23 AM EDT [facility] MCHC 31.3 30.7 - 35.5 g/dL LAB HEMATOLOGY METHOD 03/14/2025 5:23 AM EDT [facility] RDW 18.9(H) 11.5 - 14.5 % LAB HEMATOLOGY METHOD 03/14/2025 5:23 AM EDT [facility] MPV 10.3 8.8 - 12.5 fL LAB HEMATOLOGY METHOD 03/14/2025 5:23 AM EDT [facility] nRBC 0.3(H) <=0.0 per 100 WBCs LAB HEMATOLOGY METHOD 03/14/2025 5:23 AM EDT [facility] Blood Venous blood specimen / Unknown Venipuncture / Unknown 03/14/2025 5:05 AM EDT 03/14/2025 5:15 AM EDT us Mellisa Tian APRN LAB BLOOD ORDERABLES Final Res ult [facility] [address] [place] [address] * Prepare Leukocyte Reduced RBC: 1 Units (03/13/2025 12:28 PM EDT) Product Code [id number] CH BLOO D BANK Dispense Status Transfused BLOOD BANK Blood Expiration Date [id number] BLOOD BANK Unit Number [id number] B LOOD BANK Product Blood Type 5100 BLOOD BANK Blood Type O+ BLOOD BANK Crossmatch Compatible BLOOD BANK Other us Mellisa S 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 BLOOD BANK PRODUCT ORDERABLES Final Result BLOOD BANK [address] [place] [address], * Magnesium (03/13/2025 4:37 AM EDT) Pathologist [facility] Magnesium, Plasma 1.9 1.9 - 2.4 mg/dL 03/13/2025 5:13 AM EDT [facility] Blood Venous blood specimen / Unknown Venipuncture / Unknown 03/13/2025 4:37 AM EDT 03/13/2025 4:44 AM EDT Mellisa Tian APRN LAB BLOOD ORDERABLES Final Res ult [facility] [address] [place] [address] * (ABNORMAL) Comprehensive metabolic panel (03/13/2025 4:37 AM EDT) Glucose, Plasma 94 74 - 99 mg/dL 03/13/2025 5:13 AM EDT [facility] BUN, Plasma 29(H) 8 - 23 mg/dL 03/13/2025 5:13 AM EDT [facility] Creatinine, Plasma 0.97 0.70 - 1.20 mg/dL 03/13/2025 5:13 AM EDT [facility] BUN/Creatinine Ratio 30 03/13/2025 5:13 AM EDT [facility] Sodium, Plasma 134(L) 136 - 145 mmol/L 03/13/2025 5:13 AM EDT [facility] Potassium, Plasma 4.0 3.6 - 4.9 mmol/L 03/13/2025 5:13 AM EDT [facility] Chloride, Plasma 99 97 - 107 mmol/L 03/13/2025 5:13 AM EDT [facility] CO2, Plasma 22 22 - 29 mmol/L 03/13/2025 5:13 AM EDT [facility] Anion Gap 13 6 - 16 mmol/L 03/13/2025 5:13 AM EDT [facility] Total Calcium, Plasma 8.3(L) 8.9 - 10.2 mg/dL 03/13/2025 5:13 AM EDT [facility] Total Protein 6.0(L) 6.3 - 7.9 g/dL 03/13/2025 5:13 AM EDT [facility] Albumin, Plasma 3.1(L) 3.5 - 5.2 g/dL 03/13/2025 5:13 AM EDT [facility] AST, Plasma 39 10 - 50 U/L 03/13/2025 5:13 AM EDT [facility] Comment:Hemolyzed, result ma y be falsely increased. ALT, Plasma 25 10 - 50 U/L 03/13/2025 5:13 AM EDT [facility] Alkaline Phosphatase, Plasma 77 40 - 115 U/L 03/13/2025 5:13 AM EDT [facility] Total Bilirubin, Plasma 1.3(H) 0.2 - 1.1 mg/dL 03/13/2025 5:13 AM EDT [facility] eGFRcr 86.1 mL/min/1.7 3m*2 03/13/2025 5:13 AM EDT [facility] Comment:Reported eGFRcr in m L/min/1.73m2 is based the CKD-EPI 2020 equation that does not use a race coefficient. Blood Venous blood specimen / Unknown Venipuncture / Unknown 03/13/2025 4:37 AM EDT 03/13/2025 4:44 AM EDT us Mellisa Tian APRN LAB BLOOD ORDERABLES Final Res ult [facility] [address] [place] [address] * (ABNORMAL) Hemogram (CBC) (03/13/2025 4:37 AM EDT) WBC Count 11.07(H) 3.70 - 10.30 10*3/uL LAB HEMATOLOGY METHOD 03/13/2025 4:53 AM EDT [facility] RBC Count 2.81(L) 4.60 - 6.10 10*6/uL LAB HEMATOLOGY METHOD 03/13/2025 4:53 AM EDT [facility] HGB 8.0(L) 13.7 - 17.5 g/dL LAB HEMATOLOGY METHOD 03/13/2025 4:53 AM EDT [facility] HCT 24.8(L) 40.0 - 51.0 % LAB HEMATOLOGY METHOD 03/13/2025 4:53 AM EDT [facility] Platelet Count 237 155 - 369 10*3/uL LAB HEMATOLOGY METHOD 03/13/2025 4:53 AM EDT [facility] MCV 88 79 - 98 fL LAB HEMATOLOGY METHOD 03/13/2025 4:53 AM EDT [facility] MCH 28.5 26.0 - 32.0 pg LAB HEMATOLOGY METHOD 03/13/2025 4:53 AM EDT [facility] MCHC 32.3 30.7 - 35.5 g/dL LAB HEMATOLOGY METHOD 03/13/2025 4:53 AM EDT [facility] RDW 19.4(H) 11.5 - 14.5 % LAB HEMATOLOGY METHOD 03/13/2025 4:53 AM EDT [facility] MPV 9.8 8.8 - 12.5 fL LAB HEMATOLOGY METHOD 03/13/2025 4:53 AM EDT [facility] nRBC 0.3(H) <=0.0 per 100 WBCs LAB HEMATOLOGY METHOD 03/13/2025 4:53 AM EDT [facility] Blood Venous blood specimen / Unknown Venipuncture / Unknown 03/13/2025 4:37 AM EDT 03/13/2025 4:44 AM EDT us Mellisa Tian APRN LAB BLOOD ORDERABLES Final Res ult [facility] [address] [place] [address] * XR Chest 1 View (03/13/2025 4:33 AM EDT) Anatomical Region Laterality Modality Chest Digital Radiogra phy Impressions 03/13/2025 1:25 PM EDT Stable exam CRITICAL RESULT: No. COMMUNICATION: Per this written report. Drafted by Fer Castano MD on 03/13/2025 1:20 PM Final report signed by Fer Castano MD on 03/13/2025 1:25 PM Narrative 03/13/2025 1:25 PM EDT CLINICAL INDICATION: evaluate lung harrison TECHNIQUE: XR CHEST 1 VIEW COMPARISON: March 12, 2025 FINDINGS: Stable cardiac and mediastinal silhouettes postmedian sternotomy and aortic valve replacement. No focal airspace consolidation, pleural effusion or pneumothorax. Degenerative changes of the left shoulder. Procedure Note Fer Castano MD - 03/13/2025 CLINICAL INDICATION: evaluate lung harrison TECHNIQUE: XR CHEST 1 VIEW COMPARISON: March 12, 2025 FINDINGS: Stable cardiac and mediastinal silhouettes postmedian sternotomy andaortic valve replacement. No focal airspace consolidation, pleuraleffusion or pneumothorax. Degenerative changes of the left shoulder. IMPRESSION: Stable exam CRITICAL RESULT: No. COMMUNICATION: Per this written report. Drafted by Fer Castano MD on 03/13/2025 1:20 PM Final report signed by Fer Castano MD on 03/13/2025 1:25 PM Mellisa 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 IMG XR PROCEDURES Final Result * (ABNORMAL) CBC (03/12/2025 10:06 PM EDT) WBC Count 12.32(H) 3.70 - 10.30 10*3/uL LAB HEMATOLOGY METHOD 03/12/2025 10:18 PM EDT [facility] RBC Count 2.73(L) 4.60 - 6.10 10*6/uL LAB HEMATOLOGY METHOD 03/12/2025 10:18 PM EDT [facility] HGB 7.6(L) 13.7 - 17.5 g/dL LAB HEMATOLOGY METHOD 03/12/2025 10:18 PM EDT [facility] HCT 24.5(L) 40.0 - 51.0 % LAB HEMATOLOGY METHOD 03/12/2025 10:18 PM EDT [facility] Platelet Count 226 155 - 369 10*3/uL LAB HEMATOLOGY METHOD 03/12/2025 10:18 PM EDT [facility] MCV 90 79 - 98 fL LAB HEMATOLOGY METHOD 03/12/2025 10:18 PM EDT [facility] MCH 27.8 26.0 - 32.0 pg LAB HEMATOLOGY METHOD 03/12/2025 10:18 PM EDT [facility] MCHC 31.0 30.7 - 35.5 g/dL LAB HEMATOLOGY METHOD 03/12/2025 10:18 PM EDT [facility] RDW 19.3(H) 11.5 - 14.5 % LAB HEMATOLOGY METHOD 03/12/2025 10:18 PM EDT [facility] MPV 10.1 8.8 - 12.5 fL LAB HEMATOLOGY METHOD 03/12/2025 10:18 PM EDT [facility] nRBC 0.3(H) <=0.0 per 100 WBCs LAB HEMATOLOGY METHOD 03/12/2025 10:18 PM EDT [facility] Blood Venous blood specimen / Unknown Venipuncture / Unknown 03/12/2025 10:06 PM EDT 03/12/2025 10:11 PM EDT Lata Sahu MD LAB BLOOD ORDERABLES Final Resu lt [facility] [address] [place] [address] * Transfuse RBC (03/12/2025 5:30 PM EDT) Mellisa Tian APRN BLOOD TRANSFUSION ORDERABLES F inal Result * Transfuse RBC: 1 Units (03/12/2025 5:30 PM EDT) Mellisa Tian APRN BLOOD TRANSFUSION ORDERABLES F inal Result * (ABNORMAL) Iron & Total Iron Binding Capacity, Plasma (Includes Transferrin) (03/12/2025 2:21 PM EDT) Iron, Plasma 26(L) 50 - 170 ug/dL 03/12/2025 3:44 PM EDT [facility] Transferrin, Plasma 248 200 - 360 mg/dL 03/12/2025 3:44 PM EDT [facility] Total Iron Binding Capacity, Plasma 310 240 - 450 ug/mL 03/12/2025 3:44 PM EDT [facility] Transferrin Saturation 8(L) 14 - 50 % 03/12/2025 3:44 PM EDT [facility] Blood Venous blood specimen / Unknown Venipuncture / Unknown 03/12/2025 2:21 PM EDT 03/12/2025 2:47 PM EDT Mellisa Tian APRN LAB BLOOD ORDERABLES Final Res ult [facility] [address] [place] [address] * Type and screen (03/12/2025 2:21 PM EDT) ABO/Rh O Positive 03/12/2025 1:01 PM EDT BLOOD BANK Antibody Screen Negative 03/12/2025 1:01 PM EDT BLOOD BANK Specimen Expiration 03/15/2025 23:59 03/12/2025 1:01 PM EDT BLOOD BANK Blood Venous blood specimen / Unknown Venipuncture / Unknown 03/12/2025 2:21 PM EDT 03/12/2025 2:32 PM EDT Mellisa Tian APRN LAB BLOOD BANK TEST ORDERABLES Final Result Performing Organization Address [facility] de Phone Number BLOOD BANK [address] [place] [address], [place] * Prepare Leukocyte Reduced RBC: 1 Units (03/12/2025 1:01 PM EDT) Product Code [id number] CH BLOO D BANK Dispense Status Transfused BLOOD BANK Blood Expiration Date [id number] BLOOD BANK Unit Number [id number] CH B LOOD BANK Product Blood Type 5100 BLOOD BANK Blood Type O+ BLOOD BANK Crossmatch Compatible BLOOD BANK Other Mellisa Tian APRN BLOOD BANK PRODUCT ORDERABLES Final Result Performing Organization Address [facility]/ZIP Co de Phone Number BLOOD BANK [address] [place] [address], [place] * ECHO, ADULT TRANSTHORACIC COMPLETE (03/12/2025 11:07 AM EDT) [facility] BSA 2.20 m2 GUILLERMINA ISCV Height 180.0 GUILLERMINA ISCV Weight 101.0 GUILLERMINA ISCV LVIDd 51 mm GUILLERMINA ISCV LVIDs 31 mm GUILLERMINA ISCV IVSd 13 mm GUILLERMINA ISCV LVPWd 14 mm GUILLERMINA ISCV LV MASS(C)D 284 g GUILLERMINA ISCV [facility] CV ECHO LV MASS INDEX 129 g/m2 GUILLERMINA ISCV LV RWT 0.53 mm GUILLERMINA ISCV LV EDV(MOD-4ch) 136 mL GUILLERMINA ISCV LV ESV(MOD4ch) 91 mL GUILLERMINA ISCV EF(MOD-sp4) 33 % GUILLERMINA ISCV LV EDV(MOD-2ch) 146 mL GUILLERMINA ISCV LV ESV(MOD2ch) 77 mL GUILLERMINA ISCV EF(MOD-sp2) 47 % GUILLERMINA ISCV EDV(MOD-bp) 141 mL GUILLERMINA ISCV ESV(MOD-bp) 84 mL GUILLERMINA ISCV EF(MOD-bp) 40 % GUILLERMINA ISCV MV E Vmax 111.0 cm/s GUILLERMINA ISCV TR Vmax 200.7 cm/s GUILLERMINA ISCV LA dimension 51 mm GUILLERMINA ISCV TAPSE 12 mm GUILLERMINA ISCV TR Max PG 16 mmHG GUILLERMINA ISCV PA acc time 120 msec GUILLERMINA ISCV mean PAP 25 mmHg GUILLERMINA ISCV Ao V2 VTI 18.7 cm GUILLERMINA ISCV Ao mean PG 3 mmHg GUILLERMINA ISCV Ao V2 Vmax 121.8 cm/s GUILLERMINA ISCV Ao max PG 6 mmHg GUILLERMINA ISCV Ao Root Diam 35 mm GUILLERMINA ISCV PA NM(ACCEL) 25.9 mmHg GIULLERMINA ISCV LVLs ap2 8.1 mm GUILLERMINA ISCV Ao V2 mean 81.4 cm/s GUILLERMINA ISCV LV Lat e' Velocity 12.0 cm/s GUILLERMINA ISCV LV Sept e' Joao 7.0 cm/s GUILLERMINA ISCV Lat E/e' 9.3 GUILLERMINA ISCV Sep E/e' 15.9 GUILLERMINA ISCV Avg E/e' 12.6 GUILLERMINA ISCV RVSP 24 mmHg GUILLERMINA ISCV RAP systole 8 mmHg GUILLERMINA ISCV Anatomical Region Laterality Modality Echocardiography Narrative 03/12/2025 1:24 PM EDT Left Ventricle: The left ventricle is normal size. There is concentric hypertrophy. The LVEF is variable due to arrhythmia but is visually estimated at 40 - 55%. Right Ventricle: The right ventricle is normal in size. The right ventricular systolic function is mildly reduced. Aortic Valve: There is a bioprosthetic valve (29 mm Inspirus). There is no valvular regurgitation. There is no hemodynamically significant valvular aortic stenosis. The peak gradient is 6 mmHg. The mean gradient is 3 mmHg. The gradient is normal for this prosthetic valve. Pericardium: No pericardial effusion. Compared to the most recently available prior study, and allowing for differences in image quality and technique, there is now a bioprosthetic valve in the aortic position. Left Ventricle The left ventricle is normal size. There is concentric hypertrophy. The LVEF is variable due to arrhythmia but is visually estimated at 40 - 55%. Unable to assess diastolic function due to arrhythmia. The left ventricular filling pressure is indeterminate. The septal motion is most consistent with septal translation associated with prior cardiac surgery. Right Ventricle The right ventricle is normal in size. The right ventricular systolic function is mildly reduced. Right ventricular systolic pressure is normal (<35mmHg). Left Atrium The left atrium is moderately dilated by visual assessment. The interatrial septum is intact with no evidence for an atrial septal defect. Right Atrium The right atrial size is normal. IVC/SVC Based on the IVC size and respiratory variation, the estimated right atrial pressure is 3mmHg. Mitral Valve The mitral valve leaflets are normal in appearance with no evidence of mitral valve prolapse. There is mild mitral regurgitation. There is no mitral stenosis. Tricuspid Valve The tricuspid valve is normal in appearance. There is trace tricuspid regurgitation. There is no tricuspid stenosis. Aortic Valve There is a bioprosthetic valve (29 mm Inspirus). The bioprosthetic leaflets are thin and move normally. There is no valvular regurgitation. There is no hemodynamically significant valvular aortic stenosis. The peak gradient is 6 mmHg. The mean gradient is 3 mmHg. The gradient is normal for this prosthetic valve. Pulmonic Valve The pulmonic valve is normal in appearance. There is no pulmonic regurgitation. There is no pulmonic stenosis. Pericardium No pericardial effusion. Great Vessels The aortic root is normal in size. The sinus of Valsalva (aortic root) diameter is 35 mm by leading edge to leading edge method. In the maximally visualized portion, the ascending aorta appears normal in size. The aortic arch is not well visualized. The main pulmonary artery is not well visualized. Study Details During the study the apical, parasternal, subcostal and suprasternal view was captured. Overall the study quality was adequate. Heart rate was normal. Height: 180.0 cm. Weight: 101.0 kg. BSA: 2.20 m2. The heart rhythm during this exam was most suggestive of atrial fibrillation/flutter. Study Recommendation Compared to the most recently available prior study, and allowing for differences in image quality and technique, there is now a bioprosthetic valve in the aortic position. Lata Sahu MD CV ECHO PROCEDURES Final Result * (ABNORMAL) Wound Culture and Gram Stain (03/12/2025 6:52 AM EDT) CULTURE READING WOUND Light Growth 03/16/2025 10:40 AM EDT [facility] CULTURE READING WOUND 1+ Biotype 1 Escherichia coli(A) DUSTIN 03/16/2025 10:40 AM EDT [facility] Comment: This isolate has been identified using the FDA Approved BlueVineyper CA System The organism value for this result has been updated. These results have been appended to the previously preliminary verified report. Edited result: Previously reported as Gram Negative Cam on 03/14/2025 at 0735 EDT. CULTURE READING WOUND 1+ Schaalia turicensis (formerly known as Actinomyces turicensis)(A) DUSTIN 03/16/2025 10:40 AM EDT [facility] Comment: This isolate has been identified using the FDA Approved MALDI wutaboutyper CA System The organism value for this result has been updated. These results have been appended to the previously preliminary verified report. CULTURE READING WOUND 1+ Biotype 2 Escherichia coli(A) DUSTIN 03/16/2025 10:40 AM EDT [facility] Comment: The organism value for this result has been updated. These results have been appended to the previously preliminary verified report. Edited result: Previously reported as Gram Negative Cam on 03/15/2025 at 1158 EDT. Gram Stain Result Moderate Polymorphonuclear leukocytes(A) 03/16/2025 10:40 AM EDT [facility] Gram Stain Result Moderate Gram positive cocci in pairs(A) 03/16/2025 10:40 AM EDT [facility] Gram Stain Result Few Gram negative diplococci(A) 03/16/2025 10:40 AM EDT [facility] Swab Skin and/or subcutaneous tissue structure / Unknown Non-blood Collection / Unknown 03/12/2025 6:52 AM EDT 03/12/2025 8:18 AM EDT Narrative Organism Antibiotic Method Susceptibility Escherichia coli Ampicillin DUSTIN >16 ug/ml: Resistant Escherichia coli Ampicillin/Sulbactam DUSTIN 16/8 ug/ml: Intermediate Escherichia coli Aztreonam DUSTIN <=2 ug/ml: Susceptible Escherichia coli Cefazolin DUSTIN 2 ug/ml: Susceptible Escherichia coli Cefepime DUSTIN <=0.5 ug/ml: Susceptible Escherichia coli Ceftriaxone DUSTIN <=1 ug/ml: Susceptible Escherichia coli Ciprofloxacin DUSTIN >2 ug/ml: Resistant Escherichia coli Ertapenem DUSTIN <=0.25 ug/ml: Susceptible Escherichia coli Gentamicin DUSTIN >8 ug/ml: Resistant Escherichia coli Levofloxacin DUSTIN >4 ug/ml: Resistant Escherichia coli Meropenem DUSTIN <=0.5 ug/ml: Susceptible Escherichia coli Piperacillin/Tazobactam DUSTIN <=2/4 ug/ml: Susceptible Escherichia coli Tetracycline DUSTIN <=2 ug/ml: Susceptible Escherichia coli Tobramycin DUSTIN 4 ug/ml: Susceptible Escherichia coli Trimethoprim/Sulfamethoxazole DUSTIN <=0.5/9.5 ug/ml: Susceptible Escherichia coli Ampicillin DUSTIN >16 ug/ml: Resistant Escherichia coli Ampicillin/Sulbactam DUSTIN >16/8 ug/ml: Resistant Escherichia coli Aztreonam DUSTIN <=2 ug/ml: Susceptible Escherichia coli Cefazolin DUSTIN 2 ug/ml: Susceptible Escherichia coli Cefepime DUSTIN <=0.5 ug/ml: Susceptible Escherichia coli Ceftriaxone DUSTIN <=1 ug/ml: Susceptible Escherichia coli Ciprofloxacin DUSTIN >2 ug/ml: Resistant Escherichia coli Ertapenem DUSTIN <=0.25 ug/ml: Susceptible Escherichia coli Gentamicin DUSTIN >8 ug/ml: Resistant Escherichia coli Levofloxacin DUSTIN >4 ug/ml: Resistant Escherichia coli Meropenem DUSTIN <=0.5 ug/ml: Susceptible Escherichia coli Piperacillin/Tazobactam DUSTIN <=2/4 ug/ml: Susceptible Escherichia coli Tetracycline DUSTIN <=2 ug/ml: Susceptible Escherichia coli Tobramycin DUSTIN 8 ug/ml: Intermediate Escherichia coli Trimethoprim/Sulfamethoxazole DUSTIN <=0.5/9.5 ug/ml: Susceptible us Jo Curtis MD LAB MICROBIOLOGY - GENERA L ORDERABLES Final Result Performing Organization Address [facility] de Phone Number [facility] [address] [place] [address] * (ABNORMAL) Troponin T, High Sensitivity, 2 Hour, Plasma (03/12/2025 6:52 AM EDT) Troponin T, High Sensitivity, 2 Hour 108(H) <19 ng/L 03/12/2025 7:22 AM EDT [facility] Troponin Delta 5 <10 ng/L 03/12/2025 7:22 AM EDT [facility] Troponin Delta Interpretation Not Significant 03/12/2025 7:22 AM EDT [facility] Comment:Not Significant. No acute change in troponin observed between the baseline and 2 hour samples. Blood Venous blood specimen / Unknown Venipuncture / Unknown 03/12/2025 6:52 AM EDT 03/12/2025 6:55 AM EDT us Sloane Baum LAB BLOOD ORDERABLES Final Resul t Performing Organization Address [facility] Co de Phone Number [facility] [address] [place] [address] * NM DRAIN SKIN ABSCESS COMPLIC (03/12/2025 5:54 AM EDT) Narrative Jo Curtis MD - 03/12/2025 5:54 AM EDT Jo Curtis MD 03/22/2025 1:49 PM Incision & Drainage Performed by: Roger Wheeler MD Authorized by: Jo Curtis MD Consent: Consent obtained: Written Consent given by: Patient Risks, benefits, and alternatives were discussed: yes Risks discussed: Bleeding, incomplete drainage, pain and infection Alternatives discussed: No treatment, delayed treatment and alternative treatment Kiefer protocol: Procedure explained and questions answered to patient or proxy's satisfaction: yes Relevant documents present and verified: yes Imaging studies available: yes Immediately prior to procedure, a time out was called: yes Patient identity confirmed: Provided demographic data Location: Type: Abscess Size: 4.5x6cm Location: glute. Pre-procedure details: Skin preparation: Chlorhexidine with alcohol Sedation: Sedation type: None Anesthesia: Anesthesia method: Local infiltration Local anesthetic: Lidocaine 1% w/o epi Procedure type: Complexity: Complex Procedure details: Incision types: Single straight Incision depth: Dermal Wound management: Probed and deloculated and irrigated with saline Drainage: Purulent Drainage amount: Moderate Wound treatment: Wound left open Packing material: 4x4 WTD. Post-procedure details: Procedure completion: Tolerated well, no immediate complications Jo Curtis MD IN CLINIC/BEDSIDE ORDERAB LES Final Result * XR Chest 1 View (03/12/2025 4:11 AM EDT) Anatomical Region Laterality Modality Chest Digital Radiogra phy Impressions 03/12/2025 4:33 AM EDT Similar appearance of interstitial opacities which may represent mild pulmonary edema. CRITICAL RESULT: No. COMMUNICATION: Per this written report. Drafted by Celso Temple MD on 03/12/2025 4:32 AM Final report signed by Celso Temple MD on 03/12/2025 4:33 AM Narrative 03/12/2025 4:33 AM EDT CLINICAL INDICATION: Chest pain TECHNIQUE: XR CHEST 1 VIEW COMPARISON: 03/02/2025 FINDINGS: Similar appearance of interstitial opacities and venous congestion. No pneumothorax. No pleural effusion. Chronic silhouette is enlarged but stable. No acute fracture. Procedure Note Celso Temple MD - 03/12/2025 CLINICAL INDICATION: Chest pain TECHNIQUE: XR CHEST 1 VIEW COMPARISON: 03/02/2025 FINDINGS: Similar appearance of interstitial opacities and venous congestion. Nopneumothorax. No pleural effusion. Chronic silhouette is enlarged butstable. No acute fracture. IMPRESSION: Similar appearance of interstitial opacities which may represent mildpulmonary edema. CRITICAL RESULT: No. COMMUNICATION: Per this written report. Drafted by Celso Temple MD on 03/12/2025 4:32 AM Final report signed by Celso Temple MD on 03/12/2025 4:33 AM Sloane Baum IMG XR PROCEDURES Final Result * (ABNORMAL) C-reactive protein (03/12/2025 3:59 AM EDT) CRP, Plasma 44.9(H) <=8.0 mg/L 03/12/2025 4:45 AM EDT [facility] Blood Venous blood specimen / Unknown Venipuncture / Unknown 03/12/2025 3:59 AM EDT 03/12/2025 4:04 AM EDT Narrative [facility] - 03/12/2025 4:45 AM EDT This CRP test is appropriate for assessment of infection, systemic inflammation and/or tissue injury. To assess cardiovascular disease risk order high sensitivity CRP (CRPH). Result Teresa Baum LAB BLOOD ORDERABLES Final Resul t Performing Organization Address City/[facility]/[place] [address] * (ABNORMAL) Lipase (03/12/2025 3:59 AM EDT) Lipase, Plasma 17(L) 19 - 63 U/L 03/12/2025 4:35 AM EDT [facility] Blood Venous blood specimen / Unknown Venipuncture / Unknown 03/12/2025 3:59 AM EDT 03/12/2025 4:04 AM EDT Result Teresa Baum LAB BLOOD ORDERABLES Final Resul t Performing Organization Address City/[facility]/ZIP Co de Phone Number [facility] [address] [place] [address] * (ABNORMAL) Troponin now and 120 min (03/12/2025 3:59 AM EDT) Troponin T, High Sensitivity, 0 Hour 113(H) <19 ng/L 03/12/2025 4:35 AM EDT [facility] Blood Venous blood specimen / Unknown Venipuncture / Unknown 03/12/2025 3:59 AM EDT 03/12/2025 4:04 AM EDT Result Teresa Bamu LAB BLOOD ORDERABLES Final Resul t Performing Organization Address [facility] Co de Phone Number [facility] [address] [place] [address] * (ABNORMAL) BNP (03/12/2025 3:59 AM EDT) N-Terminal, PROBNP, Plasma 4,711(H) 0 - 899 pg/mL 03/12/2025 4:35 AM EDT [facility] Blood Venous blood specimen / Unknown Venipuncture / Unknown 03/12/2025 3:59 AM EDT 03/12/2025 4:04 AM EDT us Sloane Baum LAB BLOOD ORDERABLES Final Resul t Performing Organization Address [facility] Co de Phone Number [facility] [address] [place] [address] * Anti Xa Level Low Molecular Weight (03/12/2025 3:59 AM EDT) Anti Xa Level Low Molecular Weight Heparin 1.32 <2.00 IU/mL 03/12/2025 4:15 AM EDT [facility] Blood Venous blood specimen / Unknown Venipuncture / Unknown 03/12/2025 3:59 AM EDT 03/12/2025 4:01 AM EDT Narrative [facility] - 03/12/2025 4:15 AM EDT Therapeutic Range: LMWH enoxaparin 1mg/kg/dose, 12hrs - peak (3-5 hours after dose): 0.5 - 1.0 IU/mL LMWH enoxaparin 1.5mg/kg/dose, 24hrs - peak (3-5 hours after dose): 1.0 - 2.0 IU/mL LMWH enoxaparin prophylaxis: Not established us Sloane Baum LAB BLOOD ORDERABLES Final Resul t Performing Organization Address [facility] Co de Phone Number [facility] [address] [place] [address] * (ABNORMAL) CBC w/diff (03/12/2025 3:59 AM EDT) [facility] WBC Count 10.82(H) 3.70 - 10.30 10*3/uL LAB HEMATOLOGY METHOD 03/12/2025 4:03 AM EDT [facility] RBC Count 2.73(L) 4.60 - 6.10 10*6/uL LAB HEMATOLOGY METHOD 03/12/2025 4:03 AM EDT [facility] HGB 7.5(L) 13.7 - 17.5 g/dL LAB HEMATOLOGY METHOD 03/12/2025 4:03 AM EDT [facility] HCT 24.2(L) 40.0 - 51.0 % LAB HEMATOLOGY METHOD 03/12/2025 4:03 AM EDT [facility] Platelet Count 234 155 - 369 10*3/uL LAB HEMATOLOGY METHOD 03/12/2025 4:03 AM EDT [facility] MCV 89 79 - 98 fL LAB HEMATOLOGY METHOD 03/12/2025 4:03 AM EDT [facility] MCH 27.5 26.0 - 32.0 pg LAB HEMATOLOGY METHOD 03/12/2025 4:03 AM EDT [facility] MCHC 31.0 30.7 - 35.5 g/dL LAB HEMATOLOGY METHOD 03/12/2025 4:03 AM EDT [facility] RDW 19.9(H) 11.5 - 14.5 % LAB HEMATOLOGY METHOD 03/12/2025 4:03 AM EDT [facility] MPV 9.5 8.8 - 12.5 fL LAB HEMATOLOGY METHOD 03/12/2025 4:03 AM EDT [facility] nRBC 0.0 <=0.0 per 100 WBCs LAB HEMATOLOGY METHOD 03/12/2025 4:03 AM EDT [facility] Differential Type Automated LAB HEMATOLOGY METHOD 03/12/2025 4:03 AM EDT [facility] Neutrophils % 86 % LAB HEMATOLOGY METHOD 03/12/2025 4:03 AM EDT [facility] Lymphocytes % 7 % LAB HEMATOLOGY METHOD 03/12/2025 4:03 AM EDT [facility] Monocytes % 6 % LAB HEMATOLOGY METHOD 03/12/2025 4:03 AM EDT [facility] Eosinophils % 0 % LAB HEMATOLOGY METHOD 03/12/2025 4:03 AM EDT [facility] Basophils % 0 % LAB HEMATOLOGY METHOD 03/12/2025 4:03 AM EDT [facility] Immature Granulocytes % 1 % LAB HEMATOLOGY METHOD 03/12/2025 4:03 AM EDT [facility] Neutrophils Absolute 9.29(H) 1.60 - 6.10 10*3/uL LAB HEMATOLOGY METHOD 03/12/2025 4:03 AM EDT [facility] Lymphocytes Absolute 0.80(L) 1.20 - 3.90 10*3/uL LAB HEMATOLOGY METHOD 03/12/2025 4:03 AM EDT [facility] Monocytes Absolute 0.60 0.30 - 0.90 10*3/uL LAB HEMATOLOGY METHOD 03/12/2025 4:03 AM EDT [facility] Eosinophils Absolute 0.03 0.00 - 0.50 10*3/uL LAB HEMATOLOGY METHOD 03/12/2025 4:03 AM EDT [facility] Basophils Absolute 0.03 0.00 - 0.10 10*3/uL LAB HEMATOLOGY METHOD 03/12/2025 4:03 AM EDT [facility] [facility] Immature Granulocytes Absolute 0.07(H) 0.00 - 0.06 10*3/uL LAB HEMATOLOGY METHOD 03/12/2025 4:03 AM EDT [facility] Blood Venous blood specimen / Unknown Venipuncture / Unknown 03/12/2025 3:59 AM EDT 03/12/2025 4:01 AM EDT Narrative [facility] - 03/12/2025 4:03 AM EDT Therapeutic decision making should be based on absolute values, rather than percentages. us Sloane Baum LAB BLOOD ORDERABLES Final Resul t [facility] [address] [place] [address] * (ABNORMAL) CMP (03/12/2025 3:59 AM EDT) Glucose, Plasma 90 74 - 99 mg/dL 03/12/2025 4:35 AM EDT [facility] BUN, Plasma 20 8 - 23 mg/dL 03/12/2025 4:35 AM EDT [facility] Creatinine, Plasma 0.81 0.70 - 1.20 mg/dL 03/12/2025 4:35 AM EDT [facility] BUN/Creatinine Ratio 25 03/12/2025 4:35 AM EDT [facility] Sodium, Plasma 133(L) 136 - 145 mmol/L 03/12/2025 4:35 AM EDT [facility] Potassium, Plasma 3.8 3.6 - 4.9 mmol/L 03/12/2025 4:35 AM EDT [facility] Chloride, Plasma 99 97 - 107 mmol/L 03/12/2025 4:35 AM EDT [facility] CO2, Plasma 22 22 - 29 mmol/L 03/12/2025 4:35 AM EDT [facility] Anion Gap 12 6 - 16 mmol/L 03/12/2025 4:35 AM EDT [facility] Total Calcium, Plasma 8.2(L) 8.9 - 10.2 mg/dL 03/12/2025 4:35 AM EDT [facility] Total Protein 6.2(L) 6.3 - 7.9 g/dL 03/12/2025 4:35 AM EDT [facility] Albumin, Plasma 3.3(L) 3.5 - 5.2 g/dL 03/12/2025 4:35 AM EDT [facility] AST, Plasma 33 10 - 50 U/L 03/12/2025 4:35 AM EDT [facility] Comment:Hemolyzed, result ma y be falsely increased. ALT, Plasma 27 10 - 50 U/L 03/12/2025 4:35 AM EDT [facility] Alkaline Phosphatase, Plasma 81 40 - 115 U/L 03/12/2025 4:35 AM EDT [facility] Total Bilirubin, Plasma 1.0 0.2 - 1.1 mg/dL 03/12/2025 4:35 AM EDT [facility] eGFRcr 97.2 mL/min/1.7 3m*2 03/12/2025 4:35 AM EDT [facility] Comment:Reported eGFRcr in m L/min/1.73m2 is based the CKD-EPI 2020 equation that does not use a race coefficient. Blood Venous blood specimen / Unknown Venipuncture / Unknown 03/12/2025 3:59 AM EDT 03/12/2025 4:04 AM EDT us Sloane Baum LAB BLOOD ORDERABLES Final Resul t Performing Organization Address City/[facility] Co de Phone Number [facility] [address] [place] [address] * EKG now - STAT (adult) (03/12/2025 3:43 AM EDT) EKG DIAGNOSIS CLASS Abnormal MUSE ECG Ventricular Rate 106 BPM MUSE ECG Atrial Rate 264 BPM MUSE ECG QRSD Interval 102 ms MUSE ECG QT Interval 390 ms MUSE ECG QTC Interval 518 ms MUSE ECG R [place] 1 degrees MUSE ECG T Wave [place] 117 degrees MUSE ECG Diagnosis Irregular supraventricular tachycardia possible Atrial Fibrillation MUSE ECG Diagnosis Left ventricular hypertrophy with repolarization abnormality ( Ankit product ) MUSE ECG Diagnosis MUSE ECG Diagnosis MUSE ECG Diagnosis Confirmed by Felice Damon ([id number]) on 03/12/2025 10:38:17 PM MUSE ECG 03/12/2025 3:43 AM EDT 03/12/2025 10:38 PM EDT us Sloane Baum ECG ORDERABLES Final Result Performing Organization Address [facility] Co de Phone Number MUSE ECG documented in this encounter Visit Diagnoses Diagnosis Atrial fibrillation (CMS/HCC)- Primary Atrial fibrillation Gluteal abscess Cellulitis and abscess of buttock Chest pain, unspecified type Elevated troponin Other abnormal blood chemistry Persistent atrial fibrillation (CMS/HCC) Atrial fibrillation BPH (benign prostatic hyperplasia) Unspecified hyperplasia of prostate without urinary obstruction and other lower urinary tract symptoms (LUTS) Acute blood loss anemia Acute posthemorrhagic anemia Obesity (BMI 30-39.9) S/P AVR Tobacco abuse disorder Pleural effusion Unspecified pleural effusion Cardiac volume overload Leukocytosis Leukocytosis, unspecified Hyponatremia Hyposmolality and/or hyponatremia Hypocalcemia Gluteal abscess Cellulitis and abscess of buttock Hx of non-ST elevation myocardial infarction (NSTEMI) documented in this encounter Admitting Diagnoses Diagnosis Atrial fibrillation (CMS/HCC) Atrial fibrillation Gluteal abscess Cellulitis and abscess of buttock documented in this encounter Administered Medications Inactive Administered Medications - up to 3 most recent administrations Medication Order MAR Action Action Date Dose Rate Site acetaminophen (Tylenol) tablet 650 mg 650 mg, Oral, Every 6 hours PRN, Starting on Sat03/13/25 at 0042, Until Sat03/17/25 at 1643, Routine, mild pain, moderate pain Given 03/13/2025 8:29 AM EDT 650 mg Given 03/13/2025 1:00 AM EDT 650 mg amiodarone (Pacerone) tablet 200 mg 200 mg, Oral, Daily, First dose on Sat03/12/25 at 0900, Until Discontinued, Routine Given 03/17/2025 9:18 AM EDT 200 mg Given 03/16/2025 8:43 AM EDT 200 mg Given 03/15/2025 8:41 AM EDT 200 mg amoxicillin-clavulanate XR (Augmentin XR) 1000-62.5 MG per 12 hr tablet 2 tablet 2 tablet (2,000 mg), Oral, Every 12 hours, First dose on Sat03/17/25 at 1030, Until Discontinued, Routine Given 03/17/2025 11:08 AM EDT 2 tablets apixaban (Eliquis) tablet 5 mg 5 mg, Oral, 2 times daily, First dose on Sat03/12/25 at 0900, Until Discontinued, Routine Given 03/17/2025 9:19 AM EDT 5 mg Given 03/16/2025 8:17 PM EDT 5 mg Given 03/16/2025 8:43 AM EDT 5 mg aspirin chewable tablet 81 mg 81 mg, Oral, Daily, First dose on Sat03/12/25 at 1505, Until Discontinued, Routine Given 03/17/2025 9:18 AM EDT 81 mg Given 03/16/2025 8:43 AM EDT 81 mg Given 03/15/2025 8:41 AM EDT 81 mg atorvastatin (Lipitor) tablet 80 mg 80 mg, Oral, Nightly, First dose on Sat03/12/25 at 2100, Until Discontinued, Routine Given 03/16/2025 8:17 PM EDT 80 mg Given 03/15/2025 8:45 PM EDT 80 mg Given 03/14/2025 9:14 PM EDT 80 mg bisacodyl (Dulcolax) suppository 10 mg 10 mg, Rectal, Daily PRN, Starting on Sat03/13/25 at 1733, Until Sat03/17/25 at 1643, Routine, constipation Given 03/13/2025 6:38 PM EDT 10 mg calcium carbonate (Tums) chewable tablet 500 mg 500 mg, Oral, Every 6 hours PRN, Starting on Sat03/12/25 at 0700, Until Sat03/17/25 at 1643, Routine, indigestion, heartburn, dyspepsia / upset stomach cefTRIAXone (Rocephin) 2 g in sodium chloride 0.9% 100 mL IVPB (vial adapter required) 2 g, Intravenous, Every 24 hours, First dose on Sat03/15/25 at 0815, Until Discontinued, Routine New Bag 03/15/2025 8:41 AM EDT 2 g 220 mL/hr docusate sodium (Colace) capsule 100 mg 100 mg, Oral, 2 times daily, First dose on Sat03/12/25 at 0900, Until Discontinued, Routine Given 03/17/2025 9:19 AM EDT 100 mg Given 03/16/2025 8:17 PM EDT 100 mg Given 03/16/2025 8:43 AM EDT 100 mg doxycycline (Vibra-Tabs) tablet 100 mg 100 mg, Oral, 2 times daily, First dose on Sat03/17/25 at 1030, Until Discontinued, Routine Given 03/17/2025 11:08 AM EDT 100 mg famotidine (Pepcid) tablet 20 mg 20 mg, Oral, 2 times daily, First dose on Sat03/12/25 at 0900, Until Discontinued, Routine Given 03/17/2025 9:19 AM EDT 20 mg Given 03/16/2025 8:18 PM EDT 20 mg Given 03/16/2025 8:43 AM EDT 20 mg fentaNYL (Sublimaze) injection 100 mcg 100 mcg, Intravenous, Once, 1 dose, On Sat03/16/25 at 1315, Routine Given 03/16/2025 12:45 PM EDT 25 mcg furosemide (Lasix) injection 40 mg 40 mg, Intravenous, Once, 1 dose, On Sat03/12/25 at 0705, Routine Given 03/12/2025 8:59 AM EDT 40 mg furosemide (Lasix) tablet 40 mg 40 mg, Oral, Daily, First dose on Sat03/13/25 at 0900, Until Discontinued, Routine Given 03/13/2025 8:29 AM EDT 40 mg furosemide (Lasix) tablet 40 mg 40 mg, Oral, Daily, First dose on Sat03/16/25 at 1030, Until Discontinued, Routine Given 03/17/2025 9:18 AM EDT 40 mg Given 03/16/2025 10:30 AM EDT 40 mg HYDROmorphone (Dilaudid) 1 MG/ML injection - Pyxis Override Pull 1 dose, Starting on Sat03/12/25 at 0533, Until Sat03/12/25 at 0540 HYDROmorphone (Dilaudid) injection 1 mg 1 mg, Intravenous, Once, 1 dose, On Sat03/12/25 at 0535, Routine Given 03/12/2025 5:40 AM EDT 1 mg iohexol (OMNIPaque) 350 MG/ML injection 100 mL 100 mL, Intravenous, Once in imaging, 1 dose, Starting on Sat03/16/25 at 0742, Until Sat03/16/25 at 0853, Routine, Imaging Protocol Orders Given 03/16/2025 8:53 AM EDT 80 mL ipratropium-albuterol (Duo-Neb) 0.5-2.5 mg/3 mL nebulizer solution 3 mL 3 mL, Nebulization, Every 4 hours PRN, Starting on Sat03/14/25 at 0632, Until Sat03/17/25 at 1643, Routine, wheezing, shortness of breath iron sucrose (Venofer) injection 200 mg 200 mg, Intravenous, Daily, Administer undiluted by IV push over 2 to 5 minutes, First dose on Sat03/13/25 at 0945, For 5 doses Given 03/17/2025 9:1 9 AM EDT 200 mg Given 03/16/2025 8:46 AM EDT 200 mg Given 03/15/2025 9:00 AM EDT 200 mg lactated Ringer's bolus 500 mL 500 mL, Intravenous, Once, 1 dose, On Sat03/12/25 at 2300, Administer over 2 Hours, Routine New Bag 03/12/2025 10:22 PM EDT 500 mL 250 mL/h r lisinopril tablet 40 mg 40 mg, Oral, Daily, First dose on Sat03/12/25 at 0900, Until Discontinued Given 03/13/2025 8:29 AM EDT 40 mg Given 03/12/2025 9:01 AM EDT 40 mg magnesium hydroxide (Milk of Magnesia) 400 MG/5ML suspension 30 mL 30 mL, Oral, Daily PRN, Starting on Sat03/13/25 at 1339, Until Sat03/17/25 at 1643, Routine, constipation Given 03/13/2025 2:21 PM EDT 30 mL metoprolol tartrate (Lopressor) tablet 100 mg 100 mg, Oral, 2 times daily, First dose (after last modification) on Sat03/13/25 at 2100, Until Discontinued Given 03/16/2025 8:43 AM EDT 100 mg Given 03/15/2025 8:45 PM EDT 100 mg Given 03/15/2025 8:41 AM EDT 100 mg metoprolol tartrate (Lopressor) tablet 50 mg 50 mg, Oral, 2 times daily, First dose (after last modification) on Sat03/16/25 at 2100, Until Discontinued Given 03/17/2025 9:19 AM EDT 50 mg Given 03/16/2025 8:17 PM EDT 50 mg metoprolol tartrate (Lopressor) tablet 75 mg 75 mg, Oral, 3 times daily, First dose on Sat03/12/25 at 0900, Until Discontinued Given 03/13/2025 8:29 AM EDT 75 mg Given 03/12/2025 9:53 PM EDT 25 mg Given 03/12/2025 9:01 AM EDT 75 mg midazolam (Versed) injection 4 mg 4 mg, Intravenous, Once, 1 dose, On Sat03/16/25 at 1315, Routine Given 03/16/2025 12:46 PM EDT 2 mg mometasone-formoterol (Dulera 100) 100-5 MCG/ACT inhaler 2 puff 2 puff, Inhalation, 2 times daily, First dose on Sat03/12/25 at 0900, Until Discontinued, Routine Given 03/17/2025 9:19 AM EDT 2 puffs Given 03/16/2025 8:19 PM EDT 2 puffs Given 03/16/2025 8:43 AM EDT 2 puffs nitroglycerin (Nitrostat) SL tablet 0.4 mg 0.4 mg, Sublingual, Every 5 min PRN, Starting on Sat03/12/25 at 0701, Until Sat03/17/25 at 1643, Routine, chest pain oxyCODONE (Roxicodone) immediate release tablet 5 mg 5 mg, Oral, Every 6 hours PRN, Starting on Sat03/13/25 at 1015, Until Sat03/17/25 at 1643, Routine, severe pain, moderate pain Given 03/17/2025 11:08 AM EDT 5 mg Given 03/17/2025 2:48 AM EDT 5 mg Given 03/16/2025 5:23 PM EDT 5 mg piperacillin-tazobactam (Zosyn) 4.5 g in sodium chloride 0.9% 100 mL IVPB (vial adapter required) 4.5 g, Intravenous, Every 6 hours, 20 doses, First dose on Sat03/15/25 at 1815, Last dose on Sat03/20/25 at 1215, Routine New Bag 03/17/2025 5:52 AM EDT 4.5 g 36.7 mL/hr New Bag 03/17/2025 12:18 AM EDT 4.5 g 36.7 mL/hr New Bag 03/16/2025 8:18 PM EDT 4.5 g 36.7 mL/hr polyethylene glycol (Miralax) packet 17 g 17 g, Oral, Daily, First dose on Sat03/13/25 at 1830, Until Discontinued, Routine Given 03/17/2025 9:18 AM EDT 17 g Given 03/16/2025 8:43 AM EDT 17 g Given 03/15/2025 8:41 AM EDT 17 g potassium chloride CR (Klor-Con) ER tablet 20 mEq 20 mEq, Oral, Daily, First dose on Sat03/16/25 at 1030, Until Discontinued, Routine Given 03/17/2025 9:18 AM EDT 20 mEq Given 03/16/2025 10:30 AM EDT 20 mEq senna (Senokot) tablet 17.2 mg 17.2 mg, Oral, Nightly, First dose on Sat03/12/25 at 2100, Until Discontinued, Routine Given 03/16/2025 8:17 PM EDT 17.2 mg Given 03/15/2025 8:45 PM EDT 17.2 mg Given 03/14/2025 9:14 PM EDT 17.2 mg simethicone (Mylicon) chewable tablet 80 mg 80 mg, Oral, 4 times daily PRN, Starting on Sat03/12/25 at 0700, Until Sat03/17/25 at 1643, Routine, flatulence sodium chloride 0.9 % flush 10 mL 10 mL, Intravenous, Every 12 hours, First dose on Sat03/12/25 at 0705, Until Discontinued, Routine Given 03/17/2025 9:19 AM EDT 10 mL Given 03/16/2025 7:35 PM EDT 10 mL Given 03/15/2025 9:29 AM EDT 10 mL sodium chloride 0.9 % flush 10 mL 10 mL, Intravenous, As needed, Starting on Sat03/12/25 at 0700, Until Sat03/17/25 at 1643, Routine, line care sodium hypochlorite (Dakin's (QUARTER-Strength)) external solution 473 mL Irrigation, 2 times daily, First dose on 03/15/25 at 1315, Until Discontinued, Routine Given 03/16/2025 8:18 PM E DT 473 mL Given 03/16/2025 5:41 PM EDT 473 mL Given 03/15/2025 8:47 PM EDT 473 mL sodium phosphate (Fleet) enema 133 mL 133 mL (1 enema), Rectal, Once, 1 dose, On 03/13/25 at 2130, Routine Given 03/13/2025 9:25 PM EDT 133 mL Tiotropium [place] Monohydrate (Spiriva Respimat) 2.5 MCG/ACT inhaler 2 puff 2 puff, Inhalation, Daily, First dose on Sat03/12/25 at 0900, Until Discontinued, Routine Given 03/17/2025 9:19 AM EDT 2 puffs Given 03/16/2025 8:43 AM EDT 2 puffs Given 03/15/2025 8:42 AM EDT 2 puffs documented in this encounter Active and Recently Administered Medications Times are shown in EDT. Scheduled Medication Order 03/15/2025 03/16/2025 03/17/2025 amiodarone (Pacerone) tablet 200 mg 200 mg, Oral, Daily, First dose on Sat03/12/25 at 0900, Until Discontinued, Routine 0841 (Given - Provider: Tammy Wood RN) 0843 (Given - Provider: Tammy Wood RN) 0918 (Given - Provider: Kayce Howe, ANGELICA) amoxicillin-clavulanate XR (Augmentin XR) 1000-62.5 MG per 12 hr tablet 2 tablet 2 tablet (2,000 mg), Oral, Every 12 hours, First dose on Sat03/17/25 at 1030, Until Discontinued, Routine 1108 (Given - Provider: Kayce Howe RN) apixaban (Eliquis) tablet 5 mg 5 mg, Oral, 2 times daily, First dose on Sat03/12/25 at 0900, Until Discontinued, Routine 0841 (Given - Provider: Tammy Wood RN)2045 (Given - Provider: Michele Meier) 0843 (Given - Provider: Tammy Wood RN)2016 (Given - Provider: Apple Santo RN) 0919 (Given - Provider: Kayce Howe RN) aspirin chewable tablet 81 mg 81 mg, Oral, Daily, First dose on Sat03/12/25 at 1505, Until Discontinued, Routine 0841 (Given - Provider: Tammy Wood RN) 0843 (Given - Provider: Tammy Wood RN) 0918 (Given - Provider: Kayce Howe RN) atorvastatin (Lipitor) tablet 80 mg 80 mg, Oral, Nightly, First dose on Sat03/12/25 at 2100, Until Discontinued, Routine 2044 (Given - Provider: Michele Meier) 2016 (Given - Provider: Apple Santo, ANGELICA) atropine syringe 1 mg 1 mg, Intravenous, Once, 1 dose, On Sat03/16/25 at 1330, Routine 1743 (Not Given - Provider: Tammy Wood RN - Reason: Hold for condition: must add comment - Comment: .) cefTRIAXone (Rocephin) 2 g in sodium chloride 0.9% 100 mL IVPB (vial adapter required) (CANCELED) 2 g, Intravenous, Every 24 hours, First dose on Sat03/15/25 at 0815, Until Discontinued, Routine 0841 (New Bag - Provider: Tammy Wood RN) docusate sodium (Colace) capsule 100 mg 100 mg, Oral, 2 times daily, First dose on Sat03/12/25 at 0900, Until Discontinued, Routine 0842 (Given - Provider: Tammy Wood RN)2044 (Given - Provider: Michele Meier) 08 (Given - Provider: Tammy Wood, ANGELICA)2016 (Given - Provider: Apple Santo, ANGELICA) 0919 (Given - Provider: Kayce Howe, ANGELICA) doxycycline (Vibra-Tabs) tablet 100 mg 100 mg, Oral, 2 times daily, First dose on Sat03/17/25 at 1030, Until Discontinued, Routine 1108 (Given - Provider: Kayce Howe RN) famotidine (Pepcid) tablet 20 mg 20 mg, Oral, 2 times daily, First dose on Sat03/12/25 at 0900, Until Discontinued, Routine 0842 (Given - Provider: Tammy oWod RN)2044 (Given - Provider: Michele Meier) 08 (Given - Provider: Tammy Wood RN)2017 (Given - Provider: Apple Santo, ANGELICA) 0919 (Given - Provider: Kayce Howe RN) fentaNYL (Sublimaze) injection 100 mcg (COMPLETED) 100 mcg, Intravenous, Once, 1 dose, On Sat03/16/25 at 1315, Routine 1245 (Given - Provider: Deonte Hein RN - Comment: perMD request) flumazenil (Romazicon) injection 0.5 mg 0.5 mg, Intravenous, Once, 1 dose, On Sat03/16/25 at 1315, Routine 1350 (Not Given - Provider: Tammy Wood RN - Reason: Order parameters not met - Comment: .) furosemide (Lasix) tablet 40 mg 40 mg, Oral, Daily, First dose on Sat03/16/25 at 1030, Until Discontinued, Routine 1030 (Given - Provider: Tammy Wood RN) 0918 (Given - Provider: Kayce Howe RN) iohexol (OMNIPaque) 350 MG/ML injection 100 mL (COMPLETED) 100 mL, Intravenous, Once in imaging, 1 dose, Starting on Sat03/16/25 at 0742, Until Sat03/16/25 at 0853, Routine, Imaging Protocol Orders 0853 (Given - Provider: Pierre Jeffries) iron sucrose (Venofer) injection 200 mg (COMPLETED) 200 mg, Intravenous, Daily, Administer undiluted by IV push over 2 to 5 minutes, First dose on Sat03/13/25 at 0945, For 5 doses 0900 (Given - Provider: Tammy Wood RN) 08 (Given - Provider: Tammy Wood RN) 09 (Given - Provider: Kayce Howe RN) metoprolol tartrate (Lopressor) tablet 100 mg (CANCELED) 100 mg, Oral, 2 times daily, First dose (after last modification) on Sat03/13/25 at 2100, Until Discontinued 840 (Given - Provider: Tammy Wood RN)2044 (Given - Provider: Michele Meier) 842 (Given - Provider: Tammy Wood RN) metoprolol tartrate (Lopressor) tablet 50 mg 50 mg, Oral, 2 times daily, First dose (after last modification) on Sat03/16/25 at 2100, Until Discontinued 2016 (Given - Provider: Apple Santo RN) 918 (Given - Provider: Kayce Howe RN) midazolam (Versed) injection 4 mg (COMPLETED) 4 mg, Intravenous, Once, 1 dose, On Sat03/16/25 at 1315, Routine 1246 (Given - Provider: Deonte Hein RN - Comment: per MD request) mometasone-formoterol (Dulera 100) 100-5 MCG/ACT inhaler 2 puff 2 puff, Inhalation, 2 times daily, First dose on Sat03/12/25 at 0900, Until Discontinued, Routine 08 (Given - Provider: Tammy Wood RN)2046 (Given - Provider: Michele Meier) 08 (Given - Provider: Tammy Wood RN)2019 (Given - Provider: Apple Santo, ANGELICA) 0919 (Given - Provider: Kayce Howe, ANGELICA) naloxone (Narcan) injection 0.08 mg 0.08 mg, Intravenous, Once, 1 dose, On Sat03/16/25 at 1315, Routine 1350 (Not Given - Provider: Tammy Wood RN - Reason: Order parameters not met - Comment: .) piperacillin-tazobactam (Zosyn) 4.5 g in sodium chloride 0.9% 100 mL IVPB (vial adapter required) (CANCELED) 4.5 g, Intravenous, Every 6 hours, 20 doses, First dose on Sat03/15/25 at 1815, Last dose on Sat03/20/25 at 1215, Routine 1816 (New Bag - Provider: Tammy Wood RN)2357 (New Bag - Provider: Michele Meier) 0556 (New Bag - Provider: Michele Meier)1315 (New Bag - Provider: Tammy Wood RN)2018 (New Bag - Provider: Apple Santo, ANGELICA) 0018 (New Bag - Provider: Apple Santo, ANGELICA)0552 (New Bag - Provider: Apple Santo, ANGELICA) polyethylene glycol (Miralax) packet 17 g 17 g, Oral, Daily, First dose on Sat03/13/25 at 1830, Until Discontinued, Routine 0841 (Given - Provider: Tammy Wood RN) 0843 (Given - Provider: Tammy Wood RN) 0918 (Given - Provider: Kayce Howe, ANGELICA) potassium chloride CR (Klor-Con) ER tablet 20 mEq 20 mEq, Oral, Daily, First dose on Sat03/16/25 at 1030, Until Discontinued, Routine 1030 (Given - Provider: Tammy Wood RN) 0918 (Given - Provider: Kayce Howe, ANGELICA) senna (Senokot) tablet 17.2 mg 17.2 mg, Oral, Nightly, First dose on Sat03/12/25 at 2100, Until Discontinued, Routine 2044 (Given - Provider: Michele Meire) 2017 (Given - Provider: Apple Santo, ANGELICA) sodium chloride 0.9 % flush 10 mL(Linked Group 1) 10 mL, Intravenous, Every 12 hours, First dose on Sat03/12/25 at 0705, Until Discontinued, Routine 0929 (Given - Provider: Tammy Wood, ANGELICA)2021 (Canceled Entry - Provider: Michele Meier) 06 (Canceled Entry - Provider: Michele Meier)193 (Given - Provider: Apple Santo RN) 0919 (Given - Provider: Kayce Howe, ANGELICA) sodium hypochlorite (Dakin's (QUARTER-Strength)) external solution 473 mL Irrigation, 2 times daily, First dose on Sat03/15/25 at 1315, Until Discontinued, Routine 1709 (Given - Provider: Tammy Wood, ANGELICA)2046 (Given - Provider: Michele Meier) 174 (Given - Provider: Tammy Wood, ANGELICA)2017 (Given - Provider: Apple Santo RN) 0919 (Not Given - Provider: Kayce Howe RN - Reason: Hold for condition: must add comment - Comment: will do later today) Tiotropium [place] Monohydrate (Spiriva Respimat) 2.5 MCG/ACT inhaler 2 puff 2 puff, Inhalation, Daily, First dose on Sat03/12/25 at 0900, Until Discontinued, Routine 0842 (Given - Provider: Tammy Wood RN) 0843 (Given - Provider: Tammy Wood RN) 0919 (Given - Provider: Kayce Howe, ANGELICA) PRN Medication Order 03/15/2025 03/16/2025 03/17/2025 acetaminophen (Tylenol) tablet 650 mg 650 mg, Oral, Every 6 hours PRN, Starting on 03/13/25 at 0042, Until Sat03/17/25 at 1643, Routine, mild pain, moderate pain bisacodyl (Dulcolax) suppository 10 mg 10 mg, Rectal, Daily PRN, Starting on 03/13/25 at 1733, Until Sat03/17/25 at 1643, Routine, constipation calcium carbonate (Tums) chewable tablet 500 mg 500 mg, Oral, Every 6 hours PRN, Starting on Sat03/12/25 at 0700, Until Sat03/17/25 at 1643, Routine, indigestion, heartburn, dyspepsia / upset stomach ipratropium-albuterol (Duo-Neb) 0.5-2.5 mg/3 mL nebulizer solution 3 mL 3 mL, Nebulization, Every 4 hours PRN, Starting on Sat03/14/25 at 0632, Until Sat03/17/25 at 1643, Routine, wheezing, shortness of breath magnesium hydroxide (Milk of Magnesia) 400 MG/5ML suspension 30 mL 30 mL, Oral, Daily PRN, Starting on 03/13/25 at 1339, Until Sat03/17/25 at 1643, Routine, constipation nitroglycerin (Nitrostat) SL tablet 0.4 mg 0.4 mg, Sublingual, Every 5 min PRN, Starting on Sat03/12/25 at 0701, Until Sat03/17/25 at 1643, Routine, chest pain oxyCODONE (Roxicodone) immediate release tablet 5 mg 5 mg, Oral, Every 6 hours PRN, Starting on Sat03/13/25 at 1015, Until Sat03/17/25 at 1643, Routine, severe pain, moderate pain 0432 (Given - Provider: Anabelle Lugo RN)1803 (Given - Provider: Tammy Wood RN) 0431 (Given - Provider: Michele Meier)1029 (Given - Provider: Tammy Wood RN)1723 (Given - Provider: Tammy Wood RN) 0248 (Given - Provider: Apple Santo RN)1108 (Given - Provider: Kayce Howe RN) simethicone (Mylicon) chewable tablet 80 mg 80 mg, Oral, 4 times daily PRN, Starting on Sat03/12/25 at 0700, Until Sat03/17/25 at 1643, Routine, flatulence sodium chloride 0.9 % flush 10 mL(Linked Group 1) 10 mL, Intravenous, As needed, Starting on Sat03/12/25 at 0700, Until Sat03/17/25 at 1643, Routine, line care Linked Groups Order Group 1: Insert peripheral IV (CANCELED) Once, On Sat03/12/25 at 0701, For 1 occurrence And Saline lock IV (CANCELED) Once, On Sat03/12/25 at 0701, For 1 occurrence And sodium chloride 0.9 % flush 10 mLJump to med 10 mL, Intravenous, Every 12 hours, First dose on Sat03/12/25 at 0705, Until Discontinued, Routine And sodium chloride 0.9 % flush 10 mLJump to med 10 mL, Intravenous, As needed, Starting on Sat03/12/25 at 0700, Until Sat03/17/25 at 1643, Routine, line care documented in this encounter Additional Health Concerns Assessment Noted Time A Body Mass Index follow-up plan has been documented for the patient 03/17/2025 12:38 PM EDT documented as of this encounter Care Teams Rabbet Operator Relationship Specialty Start Date End Date Kiera Castro APRN [address] [place] [address] PCP - General 02/17/25 documented as of this encounter
--- OUTSIDE RECORDS SUMMARY | 2025-03-25 03:17 | XMS_ITS | Encounter Summary ---
Author Organization Healthcare Address [address] [place] [address] Care Team Providers Care Supervisor [employer] Name Role Phone Kiera Castro APRN Primary Care Provider [phone] Reason for Referral * Consultation (Routine) - Authorized Specialty Diagnoses / Procedures Referred By Contac t Referred To Contact Gastroenterology Diagnoses Duodenal ulcer Sirena Hopkins MD [address] [place] [address] Phone: tel: fax: [facility] Endoscopy [address] [place] [address] Phone: tel: Referral ID Status Reason Start Date Expiration Date Visits Requested Visits Authorized [id number] Authorized Specialty Services Required 03/31/2025 09/30/2026 1 1 * Consultation (Routine) - Authorized Specialty Diagnoses / Procedures Referred By Contac t Referred To Contact Cardiology Diagnoses Persistent atrial fibrillation (CMS/HCC) Sirena Hopkins MD [address] [place] [address] Phone: tel: fax: Referral ID Status Reason Start Date Expiration Date Visits Requested Visits Authorized [id number] Authorized Specialty Services Required 03/31/2025 09/30/2026 1 1 * Consultation (Routine) - Authorized Specialty Diagnoses / Procedures Referred By Contac t Referred To Contact Family Medicine Diagnoses Upper GI bleeding Sirena Hopkins MD [address] [place] [address] Phone: tel: fax: Referral ID Status Reason Start Date Expiration Date V isits Requested Visits Authorized [id number] Authorized 03/31/2025 09/30/2026 1 1 Reason for Visit * Reason Comments Chest Pain Weakness - Generalized Post-op Problem * Auth/Cert (Routine) Specialty Diagnoses / Procedures Referred By Contac t Referred To Contact Diagnoses Upper GI bleeding Acute GI bleeding Generalized weakness Severe anemia Low Hemoglobin, status post CABG Iliana Carpenter MD [address] [place] [address] Phone: tel: fax: [facility] Inpatient [address] [place] [address] Phone: tel: Referral ID Status Reason Start Date Expiration Date Visits Re quested Visits Authorized [id number] 1 1 Encounter Details Date Type Department Care Team (Latest Contact Info) Description 03/25/2025 3:17 AM EDT - 03/31/2025 12:30 PM EDT Hospital Encounter [facility] Inpatient [address] [place] [address] Gretchen Hdialgo MD [address] [place] [address] Iliana Carpenter MD [address] [place] [address] Yin Christopher MD [address] [place] [address] Sirena Hopkins MD [address] [place] [address] Acute GI bleeding (Primary Dx); [...] any time in the past [address] [facility], were you homeless or living in a assisted (including now)? No 04/06/2025 Utilities Answer Date Recorded In the past 12 months has th e Activity [employer], [employer], or [employer] threatened to shut off services in your [...] needed for pain, headaches or fever. Under [employer] [facility] law, monthly prescriptions (30 days) can [...] meals and nightly. 1200 mL 03/31/2025 Tiotropium [place] Monohydrate (Spiriva Respimat) 2.5 MCG/ACT inhaler Inhale [...] MD PCP name and Address: Kiera Castro, WAITER/WAITRESS ECONOMY CLASS [address] / [place] [address] Referring provider name and address: Bianca Rinaldi MD [address] [place] [address] Chief Concern, Brief History of Present Illness, [...] a day before meals and nightly. Tiotropium [place] Monohydrate 2.5 MCG/ACT inhaler Commonly known as: Spiriva Respimat Inhale 2 puffs daily. Where to Get Your Medications These medications were sent to [facility] - [place], [place] - [address] [facility] [id number] oxyCODONE 5 MG immediate release tablet pantoprazole [...] Addendum 02/22/2025 7:41 AM by Madelin Bruce, WAITER/WAITRESS ECONOMY CLASS - Atorvastatin 80 mg nightly HTN (hypertension) Overview Addendum 02/24/2025 3:41 PM by Ramandeep Sunshine APRN - Resume home medications as appropriate - required nitroglycerin gtt shortly post-op for SBP < 120 - Metop 12.5 TID COPD (chronic obstructive pulmonary disease) ([facility]) Overview Addendum 02/24/2025 3:43 PM by Ramandeep Sunshine APRN - on atrovent/ pep therapy GERD (gastroesophageal reflux disease) Overview Addendum 02/22/2025 7:40 AM by Madelin Bruce, WAITER/WAITRESS ECONOMY CLASS - Pepcid BID Heart failure with mid-range ejection fraction (HFmEF) ([facility]) Overview Addendum 02/22/2025 7:41 AM by Madelin Bruce, WAITER/WAITRESS ECONOMY CLASS - Echo 4-7-25 [facility]: EF 45% - post-op EF [...] Time Provider Department Center 04/21/2025 11:30 AM [facility] 04/21/2025 12:30 PM Lata Sahu MD [facility] 08/03/2025 12:40 PM Dimitrios Wright MD CARD[facility] Test Results Pending At Discharge [...] Note Shelly Nelson 64 y.o. male CSN: [id number] Admission: 03/25/2025 3:17 AM Primary Problem: Upper GI bleeding Dr Hopkins confirms that patient is medically ready to discharge to home today. RNCM met with patientat bedside to confirm discharge goals and concerns. Mr Nelson confirms that he remains ambulatory and will discharge to his sister's home (Ailyn [place], [place] [address], ), prior to return to own home. He sister had been providing would care prior to this admission, and will continue to do so upon return to her home. Patient has been referred to [facility] In-Home Wound Care; RNCM contacted agency regarding plan for discharge to home today. Williams Atwood with [facility] confirms that documentation has been received, and [facility] has approved this in-home care. RNCM advised patient at bedside of this information, Ms Najera per telephone, and entered into AVS instructions. Patient's brother will provide transport home today, and family will provide transport to follow upappointments. No other needs or concerns identified at this time. Primary Industrial Psychology Professor: Primary Caregiver: Self (planning to DC to sisters home initally :Ailyn Najera (Sister) ) Assistance Available at Discharge: Current Outpatient/Agency/Support Group: clinic(s), DME Availability of Care Givers (#Hours): 24 hours (Plans to discharge to sister's home (Ailyn Espinosa)initially, then return to own home;) Family/Industrial Psychology Professor(s) Willingness Assessed to care for patient at home: Yes Family/Industrial Psychology Professor(s) Readiness Assessed to care for patient at home: Yes Housing Circumstances-Z Codes: Housing Circumstances (select all that apply): Low Income (101-300% Federal Poverty Guidlines) - Z596 Patient Referred to Financial or Community Resources: None. Discharge Facility/Level of Care Needs: Discharge Facility/Level of Care Needs: 1-Home or Self Care [facility]Family Anticipated Services at Transition: Patient/Family Anticipated Services at Transition: outpatient care ([facility]) DME/Equipment Needed [...] Rinaldi MD [address] [place] [address] [facility] Endoscopy [address] [facility] [address] [facility] TEL: [phone] Follow up Provider will call to schedule home visits for wound assessment. Follow up appointments entered into [facility] by providers will be found in patient's After Visit Summary (AVS). At times, Clinics call patients following discharge to schedule follow up. Scheduled appointment(s) currently found in discharge teaching (AVS): Apr 21, 2025 11:30 AM LAB with [facility] Lab ([facility]) [address], [address] Wing [address] [facility] [address] Please bring any insurance information and a copayment if required by your insurance company. Apr 21, 2025 12:30 PM Post-op with Lata Sahu MD [facility] Cardiothoracic ([facility]) Arrive at: Cardiothoracic Surgery at [facility] [address], [address] [facility] [address] Please bring any insurance information and a copayment if required by your insurance company. Aug 03, 2025 12:40 PM (Arrive by 12:20 PM) Consultation with Dimitrios Wright MD [facility] ([facility]) Arrive at: [facility] [address] [facility] [address] Please bring any insurance information and a [...] Note Kyleveronica Nelson 64 y.o. male CSN: [id number] Room/Bed 605/609U Nutrition evaluation type: follow-up Reason for evaluation: [...] (97.7 ??F) Oxygen Therapy: None (Room air) [place] Coma Scale Score: 15 Reyes Scale Score: [...] g, Oral, Before meals & nightly Tiotropium [place] Monohydrate, 2 puff, Inhalation, Daily PRN medications: [...] (204 lb 9.4 oz) BMI (Calculated): 28.55 [place] Body Weight (kg): 78.2 Percent [place] Body Weight: 119 Wt Readings from Last [...] Provided: Will monitor Pertinent home medications: Reviewed. Taoism needs: Nutrition Focused Physical Exam: Physical exam [...] Cervical radiculopathy COPD (chronic obstructive pulmonary disease) ([facility]) Coronary artery disease GERD (gastroesophageal reflux disease) Heart valve disease Hypertension On mechanically assisted ventilation ([facility]) 02/21/2025 Intubated for procedure, arrived to ICU [...] a suspected GI bleed. Patient presented to [facility] from OSH yesterday after a near- syncopal [...] abdominal pain, fever, gastrointestinal bleeding and call refrigeration operator GI if present. - Findings and recommendations were discussed with patient. - Target hgb >7 g/dL, - Hold AC/AP for anticipated 2 weeks; has CTS f/u early April to resume, patient in agreement #Gluteal abscess (POA) Patient was admitted to [facility] 03/11/2025 - 03/12/2025. 03/12/2025 CT [...] (BMI 25 - 29.9) Sirena Hopkins MD [facility] Chat Preferred [phone] Medically Ready for Discharge:Anticipated Today * Care [...] Note Shelly Nelson 64 y.o. male CSN: [id number] Admission: 03/25/2025 3:17 AM Primary Problem: Upper GI bleeding Anticipated Discharge Date: By end of week, 04/03. Has Discharge Plans Changed? No: At this time, anticipate discharge to patient's sister's home (Ailyn Najera) where assistance, up to 24 hour, can be provided. Patient has been referred to [facility] for in home would care clinic. [...] HTN (hypertension) COPD (chronic obstructive pulmonary disease) ([facility]) GERD (gastroesophageal reflux disease) Heart failure with mid-range ejection fraction (HFmEF) ([facility]) S/P CABG x 4 Iron deficiency anemia [...] abdominal pain, fever, gastrointestinal bleeding and call refrigeration operator GI if present. - Findings and recommendations were discussed with patient. - Target hgb >7 g/dL, #Pseudohypocalcemia - Calcium 8.1, albumin 2.7; corrected zane 10.1 #Gluteal abscess (POA) Patient was admitted to [facility] 03/11/2025 - 03/12/2025. 03/12/2025 CT [...] quit smoking post CABG Dr. Yin Christopher theatre professor Hospitalist Medicine This dictation was [...] HTN (hypertension) COPD (chronic obstructive pulmonary disease) ([facility]) GERD (gastroesophageal reflux disease) Heart failure with mid-range ejection fraction (HFmEF) ([facility]) S/P CABG x 4 Iron deficiency anemia [...] abdominal pain, fever, gastrointestinal bleeding and call refrigeration operator GI if present. - Findings and recommendations were discussed with patient. - Target hgb >7 g/dL, #Pseudohypocalcemia - Calcium 8.1, albumin 2.7; corrected zane 10.1 Plan -Ionized Calcium with am lab 03/24 #Gluteal abscess (POA) Patient was admitted to [facility] 03/11/2025 - 03/12/2025. 03/12/2025 CT [...] Progress Note Shelly Nelson 64 y.o. male [facility]: [id number] Admission: 03/25/2025 3:17 AM Primary Problem: Upper GI bleeding Supervisor Drying And Winding reviewed chart and spoke with patient to complete this Initial Case Management Assessment. PCP: Kiera Castro APRN Emergency Contact: Extended Emergency Contact Information Primary Emergency Contact: Ailyn Najera Mobile Relation: Sister Painter Maintenance needed? No Secondary Emergency Contact: Hussain Nelson Mobile Relation: Brother Preferred language: Chinese Painter Maintenance needed? No Insurance: Primary Visit Coverage Payer Plan Sponsor Code Group Number Group Name [facility] MEDICARE [facility] MEDICARE REPLACEMENT [id number] Dual Complete Primary Visit Coverage Subscriber Subscriber ID Subscriber Name Subscriber [facility] Subscriber Address [id number] Shelly Nelson Jr [id number] [place] [address] Secondary Visit Coverage Payer Plan Sponsor Code Group Number Group Name [facility] MEDICAID [facility] MEDICAID [place] Secondary Visit Coverage Subscriber Subscriber ID Subscriber Name Subscriber [facility] Subscriber Address [id number] Shelly Nelson Jr [id number] [place] [address] Patient information: Primary Caregiver: Self (planning to DC to sisters home initally :Ailyn Najera (Sister) ) Support System: Immediate family (Ailyn Najera (Sister) : sometimes stay with sister) additional family/ friends available to help at home . Mr. Nelson is planning to initially go home with Ms. Najera on discharge : [address] [place] [address] Daily Living Activities: Functional Status: Independent Living Arrangements: Alone Type of Residence: Single Level (ten steps to enter front of house; one step to enter side of house.) Mr. Nelson'stiven home address : [place] [address] Smoker in the Home?: No Current DME: Equipment Currently Used at Home: walker, rollator Income Information: Income Source: Retired Current Resources Utilized: None Housing Circumstances-Z Codes: Housing Circumstances (select all that apply): Low Income (101-300% Federal Poverty Guidlines) - Z596 Patient Referred to: 03/25/25 : Preliminary referral for wound care (Clinical documents and demographics faxed ([phone]) to : [facility]: a in home wound care provider. Liaison: Williams Atwood ;[phone], Anticipated Discharge Date: TBD Patient's Discharge Goal: home Assistance Available at Discharge: Ailyn Najera (Sister) Plus additional family/friends. Has 24 hour initial assistance available at home on discharge. Discharge Transport: DaniaAilyn (Sister) Follow Up Transport: Self/family/friend Home Health / Home Infusion / Outpatient Dialysis Services: none Living Will/Advance Directive/Power of Painter Maintenance /Guardian: Have you reviewed your Advance Directive [...] abdominal pain, fever, gastrointestinal bleeding and call refrigeration operator GI if present. - Findings and recommendations were discussed with patient. - Target hgb >7 g/dL, #Pseudohypocalcemia - Calcium 8.1, albumin 2.7; corrected zane 10.1 Plan -Ionized Calcium with am lab 03/24 #Gluteal abscess (POA) Patient was admitted to [facility] 03/11/2025 - 03/12/2025. 03/12/2025 CT [...] Heart failure with mid-range ejection fraction (HFmEF) ([facility]) S/P CABG x 4 Iron deficiency anemia [...] abdominal pain, fever, gastrointestinal bleeding and call refrigeration operator GI if present. - Findings and recommendations were discussed with patient. - Target hgb >7 g/dL, #Pseudohypocalcemia - Calcium 8.1, albumin 2.7; corrected zane 10.1 Plan -Ionized Calcium with am lab 03/24 #Gluteal abscess (POA) Patient was admitted to [facility] 03/11/2025 - 03/12/2025. 03/12/2025 CT [...] Note Shelly Nelson 64 y.o. male CSN: [id number] Admission: 03/25/2025 3:17 AM Primary Problem: Upper GI bleeding Anticipated Discharge Date: 03/29/25 Preliminary referral for wound care (Clinical documents and demographics faxed ([phone]) to : [facility]: a in home wound care provider. Liaison: Williams Atwood ;[phone], Additional Comments Violet Chavez RN * Care [...] 03/25/2025 3:00 PM Wound Image Wound Assessment Red;[place];Painful Margins Well-defined edges Leslie-Wound Assessment Blanchable erythema [...] 0908 Apply/Change Wound Dressing Coccyx Other (Comments) ([facility]) Routine Active Iliana Carpenter MD - Dressing [...] from the original note were not included. [id number] Endoscopy Unit: Caring for Yourself after an [...] will be available in the patient portal, [employer]. Or you can call the doctor who [...] the Endoscopy Fellow on-call. * [facility] - Merlyn Centeno RN - 03/25/2025 3:58 PM EDT Images from the original note were not included. [address] Anesthesia: General Anesthesia You?re due to have [...] medicines you take. This includes prescription and lupg-ndp-uyrlerj medicines. It also includes vitamins, herbs, and [...] safe. Last Reviewed Date: 2024 00:00:00 ?? [id number] [employer]. All rights reserved. This information is not intended as a substitute for professional medical care. Always follow your healthcare professional's instructions. * Consults - Taylor Santiago RD - 03/25/2025 11:55 AM EDTAssociated Order(s): IP CONSULT TO NUTRITION SERVICES Adult Nutrition Evaluation Note Shelly Nelson 64 y.o. male CSN: [id number] Room/Bed 605/605A Nutrition evaluation type: assessment Reason [...] (98.3 ??F) Oxygen Therapy: None (Room air) Bhumika [...] PRN Sodium Hypochlorite, , Topical, BID Tiotropium [place] Monohydrate, 2 puff, Inhalation, Daily PRN medications: [...] (208 lb 15.9 oz) BMI (Calculated): 29.16 [place] Body Weight (kg): 78.2 Percent [place] Body Weight: 121 Wt Readings from Last [...] Provided: Will monitor Pertinent home medications: Reviewed. Taoism needs: Nutrition Focused Physical Exam: Physical exam [...] Cervical radiculopathy COPD (chronic obstructive pulmonary disease) ([facility]) Coronary artery disease GERD (gastroesophageal reflux disease) Heart valve disease Hypertension On mechanically assisted ventilation ([facility]) 02/21/2025 Intubated for procedure, arrived to ICU [...] for suspected GI bleed. Patient presented to [facility] from OSH yesterday after a near- syncopal [...] q12h Sodium Hypochlorite, , Topical, BID Tiotropium [place] Monohydrate, 2 puff, Inhalation, Daily Medications (continous): [...] melena. Lo Qiu DO PGY-4 Gastroenterology Fellow [facility] [1] Past 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: Diagnosis Date Abnormal ECG BPH (benign prostatic hyperplasia) Cervical radiculopathy COPD (chronic obstructive pulmonary disease) ([facility]) Coronary artery disease GERD (gastroesophageal reflux disease) Heart valve disease Hypertension On mechanically assisted ventilation ([facility]) 02/21/2025 Intubated for procedure, arrived to ICU [...] HTN (hypertension) COPD (chronic obstructive pulmonary disease) ([facility]) GERD (gastroesophageal reflux disease) Heart failure with mid-range ejection fraction (HFmEF) ([facility]) S/P CABG x 4 Iron deficiency anemia [...] #Gluteal abscess (POA) Patient was admitted to [facility] 03/11/2025 - 03/12/2025. 03/12/2025 CT [...] sodium chloride, 10 mL, Intravenous, q12h Tiotropium [place] Monohydrate, 2 puff, Inhalation, Daily Continuous: As [...] Time Provider Department Center 03/31/2025 12:00 PM [facility] 03/31/2025 1:00 PM Lata Sahu MD [facility] Ramez Cordoba APRN, DNP [1] Past 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: Diagnosis Date Abnormal ECG BPH (benign prostatic hyperplasia) Cervical radiculopathy COPD (chronic obstructive pulmonary disease) ([facility]) Coronary artery disease GERD (gastroesophageal reflux disease) Heart valve disease Hypertension On mechanically assisted ventilation ([facility]) 02/21/2025 Intubated for procedure, arrived to ICU [...] and oriented to person, place, and time. [place] Coma Scale Score: 15 ED Course & [...] Continuous Order ID Start Status Ordering Provider [id number] 03/25/25 032 Completed GRETCHEN HIDALGO [id number] 03/25/25 0800 Acknowledged GRETCHEN HIDALGO [id number] 03/25/251999 Acknowledged GWEN, GRETCHEN B 03/26/25 0800 [...] None Disposition Admit Admitting/Attending Physician: ILIANA CARPENTER [[id number]] Provider Care Team: SAY DEJESUS 16 [[id number]] [...] Cervical radiculopathy COPD (chronic obstructive pulmonary disease) ([facility]) Coronary artery disease GERD (gastroesophageal reflux disease) Heart valve disease Hypertension On mechanically assisted ventilation ([facility]) 02/21/2025 Intubated for procedure, arrived to ICU [...] Description 08/03/2025 12:40 PM EDT Office Visit [facility] [address] [place] [address] Dimitrios Wright MD [address] [place] [address] Pending Results Name Type Priority Associated Diagnoses [...] - 2.4 mg/dL 03/31/2025 4:57 AM EDT [facility] Blood Venous blood specimen / Unknown Venipuncture / Unknown 03/31/2025 4:17 AM EDT 03/31/2025 4:27 AM EDT us Yin Christopher MD LAB BLOOD ORDERABLES Fi nal Result [facility] [address] [place] [address] * (ABNORMAL) Comprehensive Metabolic Panel, Plasma (03/31/2025 4:17 AM EDT) Glucose, Plasma 125(H) 74 - 99 mg/dL 03/31/2025 4:57 AM EDT [facility] BUN, Plasma 28(H) 8 - 23 mg/dL 03/31/2025 4:57 AM EDT [facility] Creatinine, Plasma 0.72 0.70 - 1.20 mg/dL 03/31/2025 4:57 AM EDT [facility] BUN/Creatinine Ratio 39 03/31/2025 4:57 AM EDT [facility] Sodium, Plasma 136 136 - 145 mmol/L 03/31/2025 4:57 AM EDT [facility] Potassium, Plasma 4.1 3.6 - 4.9 mmol/L 03/31/2025 4:57 AM EDT [facility] Chloride, Plasma 106 97 - 107 mmol/L 03/31/2025 4:57 AM EDT [facility] CO2, Plasma 22 22 - 29 mmol/L 03/31/2025 4:57 AM EDT [facility] Anion Gap 8 6 - 16 mmol/L 03/31/2025 4:57 AM EDT [facility] Total Calcium, Plasma 8.1(L) 8.9 - 10.2 mg/dL 03/31/2025 4:57 AM EDT [facility] Total Protein 5.0(L) 6.3 - 7.9 g/dL 03/31/2025 4:57 AM EDT [facility] Albumin, Plasma 2.8(L) 3.5 - 5.2 g/dL 03/31/2025 4:57 AM EDT [facility] AST, Plasma 24 10 - 50 U/L 03/31/2025 4:57 AM EDT [facility] ALT, Plasma 14 10 - 50 U/L 03/31/2025 4:57 AM EDT [facility] Alkaline Phosphatase, Plasma 106 40 - 115 U/L 03/31/2025 4:57 AM EDT [facility] Total Bilirubin, Plasma 0.3 0.2 - 1.1 mg/dL 03/31/2025 4:57 AM EDT [facility] eGFRcr 100.8 mL/min/1.7 3m*2 03/31/2025 4:57 AM EDT [facility] Comment:Reported eGFRcr in m L/min/1.73m2 is based the CKD-EPI 2020 equation that does not use a race coefficient. Blood Venous blood specimen / Unknown Venipuncture / Unknown 03/31/2025 4:17 AM EDT 03/31/2025 4:27 AM EDT Yin Christopher MD LAB BLOOD ORDERABLES Fi nal Result [facility] [facility] [address] [place] [address] * (ABNORMAL) CBC and Differential (03/31/2025 4:17 AM EDT) WBC Count 5.55 3.70 - 10.30 10*3/uL LAB HEMATOLOGY METHOD 03/31/2025 4:41 AM EDT [facility] RBC Count 2.57(L) 4.60 - 6.10 10*6/uL LAB HEMATOLOGY METHOD 03/31/2025 4:41 AM EDT [facility] HGB 7.6(L) 13.7 - 17.5 g/dL LAB HEMATOLOGY METHOD 03/31/2025 4:41 AM EDT [facility] HCT 24.7(L) 40.0 - 51.0 % LAB HEMATOLOGY METHOD 03/31/2025 4:41 AM EDT [facility] Platelet Count 218 155 - 369 10*3/uL LAB HEMATOLOGY METHOD 03/31/2025 4:41 AM EDT [facility] MCV 96 79 - 98 fL LAB HEMATOLOGY METHOD 03/31/2025 4:41 AM EDT [facility] MCH 29.6 26.0 - 32.0 pg LAB HEMATOLOGY METHOD 03/31/2025 4:41 AM EDT [facility] MCHC 30.8 30.7 - 35.5 g/dL LAB HEMATOLOGY METHOD 03/31/2025 4:41 AM EDT [facility] RDW 19.1(H) 11.5 - 14.5 % LAB HEMATOLOGY METHOD 03/31/2025 4:41 AM EDT [facility] MPV 10.4 8.8 - 12.5 fL LAB HEMATOLOGY METHOD 03/31/2025 4:41 AM EDT [facility] nRBC 0.0 <=0.0 per 100 WBCs LAB HEMATOLOGY METHOD 03/31/2025 4:41 AM EDT [facility] Differential Type Automated LAB HEMATOLOGY METHOD 03/31/2025 4:41 AM EDT [facility] Neutrophils % 43 % LAB HEMATOLOGY METHOD 03/31/2025 4:41 AM EDT [facility] Lymphocytes % 46 % LAB HEMATOLOGY METHOD 03/31/2025 4:41 AM EDT [facility] Monocytes % 6 % LAB HEMATOLOGY METHOD 03/31/2025 4:41 AM EDT [facility] Eosinophils % 3 % LAB HEMATOLOGY METHOD 03/31/2025 4:41 AM EDT [facility] Basophils % 1 % LAB HEMATOLOGY METHOD 03/31/2025 4:41 AM EDT [facility] Immature Granulocytes % 1 % LAB HEMATOLOGY METHOD 03/31/2025 4:41 AM EDT [facility] Neutrophils Absolute 2.41 1.60 - 6.10 10*3/uL LAB HEMATOLOGY METHOD 03/31/2025 4:41 AM EDT [facility] Lymphocytes Absolute 2.53 1.20 - 3.90 10*3/uL LAB HEMATOLOGY METHOD 03/31/2025 4:41 AM EDT [facility] Monocytes Absolute 0.33 0.30 - 0.90 10*3/uL LAB HEMATOLOGY METHOD 03/31/2025 4:41 AM EDT [facility] Eosinophils Absolute 0.17 0.00 - 0.50 10*3/uL LAB HEMATOLOGY METHOD 03/31/2025 4:41 AM EDT [facility] Basophils Absolute 0.05 0.00 - 0.10 10*3/uL LAB HEMATOLOGY METHOD 03/31/2025 4:41 AM EDT [facility] Immature Granulocytes Absolute 0.06 0.00 - 0.06 10*3/uL LAB HEMATOLOGY METHOD 03/31/2025 4:41 AM EDT [facility] Blood Venous blood specimen / Unknown Venipuncture / Unknown 03/31/2025 4:17 AM EDT 03/31/2025 4:29 AM EDT Narrative [facility] - 03/31/2025 4:41 AM EDT Therapeutic decision making should be based on absolute values, rather than percentages. Yin Christopher MD LAB BLOOD ORDERABLES Fi nal Result [facility] [address] [place] [address] * (ABNORMAL) CBC and Differential (03/30/2025 4:52 AM EDT) WBC Count 5.70 3.70 - 10.30 10*3/uL LAB HEMATOLOGY METHOD 03/30/2025 5:29 AM EDT [facility] RBC Count 2.69(L) 4.60 - 6.10 10*6/uL LAB HEMATOLOGY METHOD 03/30/2025 5:29 AM EDT [facility] HGB 7.8(L) 13.7 - 17.5 g/dL LAB HEMATOLOGY METHOD 03/30/2025 5:29 AM EDT [facility] HCT 25.7(L) 40.0 - 51.0 % LAB HEMATOLOGY METHOD 03/30/2025 5:29 AM EDT [facility] Platelet Count 199 155 - 369 10*3/uL LAB HEMATOLOGY METHOD 03/30/2025 5:29 AM EDT [facility] MCV 96 79 - 98 fL LAB HEMATOLOGY METHOD 03/30/2025 5:29 AM EDT [facility] MCH 29.0 26.0 - 32.0 pg LAB HEMATOLOGY METHOD 03/30/2025 5:29 AM EDT [facility] MCHC 30.4(L) 30.7 - 35.5 g/dL LAB HEMATOLOGY METHOD 03/30/2025 5:29 AM EDT [facility] RDW 19.3(H) 11.5 - 14.5 % LAB HEMATOLOGY METHOD 03/30/2025 5:29 AM EDT [facility] MPV 10.5 8.8 - 12.5 fL LAB HEMATOLOGY METHOD 03/30/2025 5:29 AM EDT [facility] nRBC 0.0 <=0.0 per 100 WBCs LAB HEMATOLOGY METHOD 03/30/2025 5:29 AM EDT [facility] Differential Type Automated LAB HEMATOLOGY METHOD 03/30/2025 5:29 AM EDT [facility] Neutrophils % 43 % LAB HEMATOLOGY METHOD 03/30/2025 5:29 AM EDT [facility] Lymphocytes % 43 % LAB HEMATOLOGY METHOD 03/30/2025 5:29 AM EDT [facility] Monocytes % 8 % LAB HEMATOLOGY METHOD 03/30/2025 5:29 AM EDT [facility] Eosinophils % 3 % LAB HEMATOLOGY METHOD 03/30/2025 5:29 AM EDT [facility] Basophils % 1 % LAB HEMATOLOGY METHOD 03/30/2025 5:29 AM EDT [facility] Immature Granulocytes % 2 % LAB HEMATOLOGY METHOD 03/30/2025 5:29 AM EDT [facility] Neutrophils Absolute 2.47 1.60 - 6.10 10*3/uL LAB HEMATOLOGY METHOD 03/30/2025 5:29 AM EDT [facility] Lymphocytes Absolute 2.47 1.20 - 3.90 10*3/uL LAB HEMATOLOGY METHOD 03/30/2025 5:29 AM EDT [facility] Monocytes Absolute 0.47 0.30 - 0.90 10*3/uL LAB HEMATOLOGY METHOD 03/30/2025 5:29 AM EDT [facility] Eosinophils Absolute 0.15 0.00 - 0.50 10*3/uL LAB HEMATOLOGY METHOD 03/30/2025 5:29 AM EDT [facility] Basophils Absolute 0.04 0.00 - 0.10 10*3/uL LAB HEMATOLOGY METHOD 03/30/2025 5:29 AM EDT [facility] Immature Granulocytes Absolute 0.10(H) 0.00 - 0.06 10*3/uL LAB HEMATOLOGY METHOD 03/30/2025 5:29 AM EDT [facility] Blood Venous blood specimen / Unknown Venipuncture / Unknown 03/30/2025 4:52 AM EDT 03/30/2025 5:06 AM EDT [facility] - 03/30/2025 5:29 AM EDT Therapeutic decision making should be based on absolute values, rather than percentages. Yin Christopher MD LAB BLOOD ORDERABLES Fi nal Result [facility] [address] [place] [address] * (ABNORMAL) Comprehensive Metabolic Panel, Plasma (03/30/2025 4:52 AM EDT) Glucose, Plasma 90 74 - 99 mg/dL 03/30/2025 5:36 AM EDT [facility] BUN, Plasma 28(H) 8 - 23 mg/dL 03/30/2025 5:36 AM EDT [facility] Creatinine, Plasma 0.70 0.70 - 1.20 mg/dL 03/30/2025 5:36 AM EDT [facility] BUN/Creatinine Ratio 40 03/30/2025 5:36 AM EDT [facility] Sodium, Plasma 136 136 - 145 mmol/L 03/30/2025 5:36 AM EDT [facility] Potassium, Plasma 4.3 3.6 - 4.9 mmol/L 03/30/2025 5:36 AM EDT [facility] Chloride, Plasma 105 97 - 107 mmol/L 03/30/2025 5:36 AM EDT [facility] CO2, Plasma 22 22 - 29 mmol/L 03/30/2025 5:36 AM EDT [facility] Anion Gap 9 6 - 16 mmol/L 03/30/2025 5:36 AM EDT [facility] Total Calcium, Plasma 8.1(L) 8.9 - 10.2 mg/dL 03/30/2025 5:36 AM EDT [facility] Total Protein 4.9(L) 6.3 - 7.9 g/dL 03/30/2025 5:36 AM EDT [facility] Albumin, Plasma 2.5(L) 3.5 - 5.2 g/dL 03/30/2025 5:36 AM EDT [facility] AST, Plasma 22 10 - 50 U/L 03/30/2025 5:36 AM EDT [facility] ALT, Plasma 13 10 - 50 U/L 03/30/2025 5:36 AM EDT [facility] Alkaline Phosphatase, Plasma 83 40 - 115 U/L 03/30/2025 5:36 AM EDT [facility] Total Bilirubin, Plasma 0.5 0.2 - 1.1 mg/dL 03/30/2025 5:36 AM EDT [facility] eGFRcr 101.6 mL/min/1.7 3m*2 03/30/2025 5:36 AM EDT [facility] Comment:Reported eGFRcr in m L/min/1.73m2 is based the CKD-EPI 2020 equation that does not use a race coefficient. Blood Venous blood specimen / Unknown Venipuncture / Unknown 03/30/2025 4:52 AM EDT 03/30/2025 5:04 AM EDT Yin Christopher MD LAB BLOOD ORDERABLES Fi nal Result Performing Organization Address City/[facility]/ZIP Co de Phone Number [facility] [address] [place] [address] * (ABNORMAL) Magnesium, Plasma (03/30/2025 4:52 AM EDT) Magnesium, Plasma 1.8(L) 1.9 - 2.4 mg/dL 03/30/2025 5:36 AM EDT [facility] Blood Venous blood specimen / Unknown Venipuncture / Unknown 03/30/2025 4:52 AM EDT 03/30/2025 5:04 AM EDT Yin Christopher MD LAB BLOOD ORDERABLES Fi nal Result [facility] [address] [place] [address] * Phosphorus, Plasma (03/30/2025 4:52 AM EDT) Phosphorus, Plasma 3.3 2.5 - 4.5 mg/dL 03/30/2025 5:36 AM EDT [facility] Blood Venous blood specimen / Unknown Venipuncture / Unknown 03/30/2025 4:52 AM EDT 03/30/2025 5:04 AM EDT Yin Christopehr MD LAB BLOOD ORDERABLES Fi nal Result Performing Organization Address City/[facility]/ZIP Co de Phone Number [facility] [address] [place] [address] * Transfuse RBC (03/29/2025 12:59 PM EDT) Yin Christopher MD BLOOD TRANSFUSION ORDER CASTILLO Final Result * Transfuse RBC: 1 Units (03/29/2025 12:59 PM EDT) Yin Christopher MD BLOOD TRANSFUSION ORDER CASTILLO Final Result * Prepare Leukocyte Reduced RBC: 1 Units (03/29/2025 8:37 AM EDT) Product Code [id number] CH BLOO D BANK Dispense Status Transfused BLOOD BANK Blood Expiration Date [id number] BLOOD BANK Unit Number [id number] CH B LOOD BANK Product Blood Type 5100 BLOOD BANK Blood Type O+ BLOOD BANK Crossmatch Compatible BLOOD BANK Other Yin Christopher MD BLOOD BANK PRODUCT ORDE RABLES Final Result Performing Organization Address City/[facility] Co de Phone Number BLO[facility] BANK [address] [place] [address], * Type and screen (03/29/2025 6:05 AM [...] ORDERA BLES Final Result [facility] [address] [place] [address], * (ABNORMAL) CBC and Differential (03/29/2025 3:21 AM EDT) WBC Count 5.89 3.70 - 10.30 10*3/uL LAB HEMATOLOGY METHOD 03/29/2025 4:15 AM EDT [facility] RBC Count 2.22(L) 4.60 - 6.10 10*6/uL LAB HEMATOLOGY METHOD 03/29/2025 4:15 AM EDT [facility] HGB 6.5(L) 13.7 - 17.5 g/dL LAB HEMATOLOGY METHOD 03/29/2025 4:15 AM EDT [facility] HCT 21.5(L) 40.0 - 51.0 % LAB HEMATOLOGY METHOD 03/29/2025 4:15 AM EDT [facility] Platelet Count 197 155 - 369 10*3/uL LAB HEMATOLOGY METHOD 03/29/2025 4:15 AM EDT [facility] MCV 97 79 - 98 fL LAB HEMATOLOGY METHOD 03/29/2025 4:15 AM EDT [facility] MCH 29.3 26.0 - 32.0 pg LAB HEMATOLOGY METHOD 03/29/2025 4:15 AM EDT [facility] MCHC 30.2(L) 30.7 - 35.5 g/dL LAB HEMATOLOGY METHOD 03/29/2025 4:15 AM EDT [facility] RDW 20.8(H) 11.5 - 14.5 % LAB HEMATOLOGY METHOD 03/29/2025 4:15 AM EDT [facility] MPV 10.9 8.8 - 12.5 fL LAB HEMATOLOGY METHOD 03/29/2025 4:15 AM EDT [facility] nRBC 0.0 <=0.0 per 100 WBCs LAB HEMATOLOGY METHOD 03/29/2025 4:15 AM EDT [facility] Differential Type Automated LAB HEMATOLOGY METHOD 03/29/2025 4:15 AM EDT [facility] Neutrophils % 48 % LAB HEMATOLOGY METHOD 03/29/2025 4:15 AM EDT [facility] Lymphocytes % 40 % LAB HEMATOLOGY METHOD 03/29/2025 4:15 AM EDT [facility] Monocytes % 8 % LAB HEMATOLOGY METHOD 03/29/2025 4:15 AM EDT [facility] Eosinophils % 2 % LAB HEMATOLOGY METHOD 03/29/2025 4:15 AM EDT [facility] Basophils % 1 % LAB HEMATOLOGY METHOD 03/29/2025 4:15 AM EDT [facility] Immature Granulocytes % 1 % LAB HEMATOLOGY METHOD 03/29/2025 4:15 AM EDT [facility] Neutrophils Absolute 2.82 1.60 - 6.10 10*3/uL LAB HEMATOLOGY METHOD 03/29/2025 4:15 AM EDT [facility] Lymphocytes Absolute 2.36 1.20 - 3.90 10*3/uL LAB HEMATOLOGY METHOD 03/29/2025 4:15 AM EDT [facility] Monocytes Absolute 0.49 0.30 - 0.90 10*3/uL LAB HEMATOLOGY METHOD 03/29/2025 4:15 AM EDT [facility] Eosinophils Absolute 0.14 0.00 - 0.50 10*3/uL LAB HEMATOLOGY METHOD 03/29/2025 4:15 AM EDT [facility] Basophils Absolute 0.03 0.00 - 0.10 10*3/uL LAB HEMATOLOGY METHOD 03/29/2025 4:15 AM EDT [facility] Immature Granulocytes Absolute 0.05 0.00 - 0.06 10*3/uL LAB HEMATOLOGY METHOD 03/29/2025 4:15 AM EDT [facility] Blood Venous blood specimen / Unknown Venipuncture / Unknown 03/29/2025 3:21 AM EDT 03/29/2025 4:03 AM EDT [facility] - 03/29/2025 4:15 AM EDT Therapeutic decision making should be based on absolute values, rather than percentages. Yin Christopher MD LAB BLOOD ORDERABLES Fi nal Result [facility] [address] [place] [address] * (ABNORMAL) Comprehensive Metabolic Panel, Plasma (03/29/2025 3:21 AM EDT) Glucose, Plasma 112(H) 74 - 99 mg/dL 03/29/2025 4:34 AM EDT [facility] BUN, Plasma 34(H) 8 - 23 mg/dL 03/29/2025 4:34 AM EDT [facility] Creatinine, Plasma 0.75 0.70 - 1.20 mg/dL 03/29/2025 4:34 AM EDT [facility] BUN/Creatinine Ratio 45 03/29/2025 4:34 AM EDT [facility] Sodium, Plasma 135(L) 136 - 145 mmol/L 03/29/2025 4:34 AM EDT [facility] Potassium, Plasma 4.3 3.6 - 4.9 mmol/L 03/29/2025 4:34 AM EDT [facility] Chloride, Plasma 104 97 - 107 mmol/L 03/29/2025 4:34 AM EDT [facility] CO2, Plasma 22 22 - 29 mmol/L 03/29/2025 4:34 AM EDT [facility] Anion Gap 9 6 - 16 mmol/L 03/29/2025 4:34 AM EDT [facility] Total Calcium, Plasma 7.8(L) 8.9 - 10.2 mg/dL 03/29/2025 4:34 AM EDT [facility] Total Protein 4.8(L) 6.3 - 7.9 g/dL 03/29/2025 4:34 AM EDT [facility] Albumin, Plasma 2.6(L) 3.5 - 5.2 g/dL 03/29/2025 4:34 AM EDT [facility] AST, Plasma 28 10 - 50 U/L 03/29/2025 4:34 AM EDT [facility] Comment:Hemolyzed, result ma y be falsely increased. ALT, Plasma 14 10 - 50 U/L 03/29/2025 4:34 AM EDT [facility] Alkaline Phosphatase, Plasma 77 40 - 115 U/L 03/29/2025 4:34 AM EDT [facility] Total Bilirubin, Plasma 0.4 0.2 - 1.1 mg/dL 03/29/2025 4:34 AM EDT [facility] eGFRcr 99.5 mL/min/1.7 3m*2 03/29/2025 4:34 AM EDT [facility] Comment:Reported eGFRcr in m L/min/1.73m2 is based the CKD-EPI 2020 equation that does not use a race coefficient. Blood Venous blood specimen / Unknown Venipuncture / Unknown 03/29/2025 3:21 AM EDT 03/29/2025 4:03 AM EDT us Yin Christopher MD LAB BLOOD ORDERABLES Fi nal Result Performing Organization Address City/[facility] Co de Phone Number [facility] [address] [place] [address] * Magnesium, Plasma (03/29/2025 3:21 AM EDT) Magnesium, Plasma 2.1 1.9 - 2.4 mg/dL 03/29/2025 4:34 AM EDT [facility] Blood Venous blood specimen / Unknown Venipuncture / Unknown 03/29/2025 3:21 AM EDT 03/29/2025 4:03 AM EDT us Yin Christopher MD LAB BLOOD ORDERABLES Fi nal Result Performing Organization Address City/[facility]/ZIP Co de Phone Number [facility] [address] [place] [address] * Phosphorus, Plasma (03/29/2025 3:21 AM EDT) Phosphorus, Plasma 2.9 2.5 - 4.5 mg/dL 03/29/2025 4:34 AM EDT [facility] Blood Venous blood specimen / Unknown Venipuncture / Unknown 03/29/2025 3:21 AM EDT 03/29/2025 4:03 AM EDT us Yin Christopher MD LAB BLOOD ORDERABLES Fi nal Result [facility] [address] [place] [address] * Helicobacter pylori Antigen (03/28/2025 4:18 PM EDT) Helicobacter pylori Antigen Result Negative Negative 03/28/2025 5:39 PM EDT [facility] Stool Rectum structure / Unknown Non-blood Collection / Unknown 03/28/2025 4:18 PM EDT 03/28/2025 4:33 PM EDT Yin Christopher MD LAB MICROBIOLOGY - GENE RAL ORDERABLES Final Result Performing Organization Address [facility]/ZIP Co de Phone Number [facility] [address] [place] [address] * (ABNORMAL) Occult Blood, Fecal by Immunoassay (SO) (03/28/2025 4:18 PM EDT) Occult Blood, Fecal Immunosay Interpretation Positive( A) 03/31/2025 10:15 AM EDT [facility] ([facility]) Stool Non-blood Collection / Unknown 03/28/2025 4:18 PM EDT 03/28/2025 4:27 PM EDT Narrative [facility] ([facility]) - 03/31/2025 10:15 AM EDT INTERPRETIVE INFORMATION: Fecal Occult Blood by Immunoassay No single cutoff provides superior colorectal cancer detection rates. The test condenser setter recommends the use of a 100 ng/mL cutoff that produces a specificity of approximately 95 percent for the detection of lower gastrointestinal bleeding. This test does not detect upper gastrointestinal bleeding. Performed By: [facility] [address] [place] [id number] Bulker: Wilfrid Carr MD, PhD CLIA Number: [id number] us Ramez Cordoba APRN, DNP LAB REF LAB BLOOD AND FLUID ORD Final Result Performing Organization Address City/[facility]/ZIP Co de Phone Number [facility] ([facility]) [address] [place] [id number] * (ABNORMAL) CBC W/O Differential (03/28/2025 12:15 PM EDT) WBC Count 6.21 3.70 - 10.30 10*3/uL LAB HEMATOLOGY METHOD 03/28/2025 12:29 PM EDT [facility] RBC Count 2.38(L) 4.60 - 6.10 10*6/uL LAB HEMATOLOGY METHOD 03/28/2025 12:29 PM EDT [facility] HGB 7.0(L) 13.7 - 17.5 g/dL LAB HEMATOLOGY METHOD 03/28/2025 12:29 PM EDT [facility] HCT 22.6(L) 40.0 - 51.0 % LAB HEMATOLOGY METHOD 03/28/2025 12:29 PM EDT [facility] Platelet Count 215 155 - 369 10*3/uL LAB HEMATOLOGY METHOD 03/28/2025 12:29 PM EDT [facility] MCV 95 79 - 98 fL LAB HEMATOLOGY METHOD 03/28/2025 12:29 PM EDT [facility] MCH 29.4 26.0 - 32.0 pg LAB HEMATOLOGY METHOD 03/28/2025 12:29 PM EDT [facility] MCHC 31.0 30.7 - 35.5 g/dL LAB HEMATOLOGY METHOD 03/28/2025 12:29 PM EDT [facility] RDW 21.1(H) 11.5 - 14.5 % LAB HEMATOLOGY METHOD 03/28/2025 12:29 PM EDT [facility] MPV 10.3 8.8 - 12.5 fL LAB HEMATOLOGY METHOD 03/28/2025 12:29 PM EDT [facility] nRBC 0.0 <=0.0 per 100 WBCs LAB HEMATOLOGY METHOD 03/28/2025 12:29 PM EDT [facility] Blood Venous blood specimen / Unknown Venipuncture / Unknown 03/28/2025 12:15 PM EDT 03/28/2025 12:22 PM EDT us Yin Christopher MD LAB BLOOD ORDERABLES Fi nal Result [facility] [address] [facility] [place] [address] * (ABNORMAL) CBC and Differential (03/28/2025 5:18 AM EDT) WBC Count 4.69 3.70 - 10.30 10*3/uL LAB HEMATOLOGY METHOD 03/28/2025 5:50 AM EDT [facility] RBC Count 2.41(L) 4.60 - 6.10 10*6/uL LAB HEMATOLOGY METHOD 03/28/2025 5:50 AM EDT [facility] HGB 7.0(L) 13.7 - 17.5 g/dL LAB HEMATOLOGY METHOD 03/28/2025 5:50 AM EDT [facility] HCT 23.1(L) 40.0 - 51.0 % LAB HEMATOLOGY METHOD 03/28/2025 5:50 AM EDT [facility] Platelet Count 209 155 - 369 10*3/uL LAB HEMATOLOGY METHOD 03/28/2025 5:50 AM EDT [facility] MCV 96 79 - 98 fL LAB HEMATOLOGY METHOD 03/28/2025 5:50 AM EDT [facility] MCH 29.0 26.0 - 32.0 pg LAB HEMATOLOGY METHOD 03/28/2025 5:50 AM EDT [facility] MCHC 30.3(L) 30.7 - 35.5 g/dL LAB HEMATOLOGY METHOD 03/28/2025 5:50 AM EDT [facility] RDW 20.9(H) 11.5 - 14.5 % LAB HEMATOLOGY METHOD 03/28/2025 5:50 AM EDT [facility] MPV 10.2 8.8 - 12.5 fL LAB HEMATOLOGY METHOD 03/28/2025 5:50 AM EDT [facility] nRBC 0.0 <=0.0 per 100 WBCs LAB HEMATOLOGY METHOD 03/28/2025 5:50 AM EDT [facility] Differential Type Automated LAB HEMATOLOGY METHOD 03/28/2025 5:50 AM EDT [facility] Neutrophils % 51 % LAB HEMATOLOGY METHOD 03/28/2025 5:50 AM EDT [facility] Lymphocytes % 38 % LAB HEMATOLOGY METHOD 03/28/2025 5:50 AM EDT [facility] Monocytes % 6 % LAB HEMATOLOGY METHOD 03/28/2025 5:50 AM EDT [facility] Eosinophils % 3 % LAB HEMATOLOGY METHOD 03/28/2025 5:50 AM EDT [facility] Basophils % 1 % LAB HEMATOLOGY METHOD 03/28/2025 5:50 AM EDT [facility] Immature Granulocytes % 1 % LAB HEMATOLOGY METHOD 03/28/2025 5:50 AM EDT [facility] Neutrophils Absolute 2.41 1.60 - 6.10 10*3/uL LAB HEMATOLOGY METHOD 03/28/2025 5:50 AM EDT [facility] Lymphocytes Absolute 1.79 1.20 - 3.90 10*3/uL LAB HEMATOLOGY METHOD 03/28/2025 5:50 AM EDT [facility] Monocytes Absolute 0.30 0.30 - 0.90 10*3/uL LAB HEMATOLOGY METHOD 03/28/2025 5:50 AM EDT [facility] Eosinophils Absolute 0.12 0.00 - 0.50 10*3/uL LAB HEMATOLOGY METHOD 03/28/2025 5:50 AM EDT [facility] Basophils Absolute 0.03 0.00 - 0.10 10*3/uL LAB HEMATOLOGY METHOD 03/28/2025 5:50 AM EDT [facility] Immature Granulocytes Absolute 0.04 0.00 - 0.06 10*3/uL LAB HEMATOLOGY METHOD 03/28/2025 5:50 AM EDT [facility] Blood Venous blood specimen / Unknown Venipuncture / Unknown 03/28/2025 5:18 AM EDT 03/28/2025 5:39 AM EDT Narrative [facility] - 03/28/2025 5:50 AM EDT Therapeutic decision making should be based on absolute values, rather than percentages. us Yin Christopher MD LAB BLOOD ORDERABLES Fi nal Result [facility] [address] [place] [address] * (ABNORMAL) Comprehensive Metabolic Panel, Plasma (03/28/2025 5:18 AM EDT) [facility] Glucose, Plasma 115(H) 74 - 99 mg/dL 03/28/2025 6:12 AM EDT [facility] BUN, Plasma 28(H) 8 - 23 mg/dL 03/28/2025 6:12 AM EDT [facility] Creatinine, Plasma 0.72 0.70 - 1.20 mg/dL 03/28/2025 6:12 AM EDT [facility] BUN/Creatinine Ratio 39 03/28/2025 6:12 AM EDT [facility] Sodium, Plasma 136 136 - 145 mmol/L 03/28/2025 6:12 AM EDT [facility] Potassium, Plasma 4.1 3.6 - 4.9 mmol/L 03/28/2025 6:12 AM EDT [facility] Chloride, Plasma 105 97 - 107 mmol/L 03/28/2025 6:12 AM EDT [facility] CO2, Plasma 22 22 - 29 mmol/L 03/28/2025 6:12 AM EDT [facility] Anion Gap 9 6 - 16 mmol/L 03/28/2025 6:12 AM EDT [facility] Total Calcium, Plasma 8.0(L) 8.9 - 10.2 mg/dL 03/28/2025 6:12 AM EDT [facility] Total Protein 5.0(L) 6.3 - 7.9 g/dL 03/28/2025 6:12 AM EDT [facility] [facility] Albumin, Plasma 2.6(L) 3.5 - 5.2 g/dL 03/28/2025 6:12 AM EDT [facility] AST, Plasma 21 10 - 50 U/L 03/28/2025 6:12 AM EDT [facility] ALT, Plasma 15 10 - 50 U/L 03/28/2025 6:12 AM EDT [facility] Alkaline Phosphatase, Plasma 86 40 - 115 U/L 03/28/2025 6:12 AM EDT [facility] Total Bilirubin, Plasma 0.5 0.2 - 1.1 mg/dL 03/28/2025 6:12 AM EDT [facility] eGFRcr 100.8 mL/min/1.7 3m*2 03/28/2025 6:12 AM EDT [facility] Comment:Reported eGFRcr in m L/min/1.73m2 is based the CKD-EPI 2020 equation that does not use a race coefficient. Blood Venous blood specimen / Unknown Venipuncture / Unknown 03/28/2025 5:18 AM EDT 03/28/2025 5:38 AM EDT Yin Christopher MD LAB BLOOD ORDERABLES Fi nal Result [facility] [address] [place] [address] * Magnesium, Plasma (03/28/2025 5:18 AM EDT) Magnesium, Plasma 2.1 1.9 - 2.4 mg/dL 03/28/2025 6:12 AM EDT [facility] Blood Venous blood specimen / Unknown Venipuncture / Unknown 03/28/2025 5:18 AM EDT 03/28/2025 5:38 AM EDT Yin Christopher MD LAB BLOOD ORDERABLES Fi nal Result Performing Organization Address City/[facility]/Z[place] [address] * Phosphorus, Plasma (03/28/2025 5:18 AM EDT) Phosphorus, Plasma 2.9 2.5 - 4.5 mg/dL 03/28/2025 6:12 AM EDT [facility] Blood Venous blood specimen / Unknown Venipuncture / Unknown 03/28/2025 5:18 AM EDT 03/28/2025 5:38 AM EDT Yin Christopher MD LAB BLOOD ORDERABLES Fi nal Result [facility] [address] [place] [address] * (ABNORMAL) Hemoglobin and Hematocrit, Blood (03/28/2025 12:32 AM EDT) HGB 7.1(L) 13.7 - 17.5 g/dL LAB HEMATOLOGY METHOD 03/28/2025 1:01 AM EDT [facility] HCT 22.7(L) 40.0 - 51.0 % LAB HEMATOLOGY METHOD 03/28/2025 1:01 AM EDT [facility] Blood Venous blood specimen / Unknown Venipuncture / Unknown 03/28/2025 12:32 AM EDT 03/28/2025 12:45 AM EDT us Ramezgucci Cordoba APRN, DNP LAB BLOOD ORDERAB LES Final Result Performing Organization Address City/[facility]/ZIP Co de Phone Number [facility] [address] [place] [address] * (ABNORMAL) Hemoglobin and Hematocrit, Blood (03/27/2025 6:11 PM EDT) HGB 7.5(L) 13.7 - 17.5 g/dL LAB HEMATOLOGY METHOD 03/27/2025 6:27 PM EDT [facility] HCT 23.6(L) 40.0 - 51.0 % LAB HEMATOLOGY METHOD 03/27/2025 6:27 PM EDT [facility] Blood Venous blood specimen / Unknown Venipuncture / Unknown 03/27/2025 6:11 PM EDT 03/27/2025 6:19 PM EDT us Ramezgucci Cordoba APRN, DNP LAB BLOOD ORDERAB LES Final Result [facility] [address] [place] [address] * (ABNORMAL) Hemoglobin and Hematocrit, Blood (03/27/2025 12:12 PM EDT) HGB 7.4(L) 13.7 - 17.5 g/dL LAB HEMATOLOGY METHOD 03/27/2025 12:28 PM EDT [facility] HCT 24.2(L) 40.0 - 51.0 % LAB HEMATOLOGY METHOD 03/27/2025 12:28 PM EDT [facility] Blood Venous blood specimen / Unknown Venipuncture / Unknown 03/27/2025 12:12 PM EDT 03/27/2025 12:21 PM EDT us Ramez N Arturoaldageorgetamanna WAITER/WAITRESS ECONOMY CLASS, DNP LAB BLOOD ORDERAB LES Final Result [facility] [address] [place] [address] * (ABNORMAL) CBC and Differential (03/27/2025 5:55 AM EDT) WBC Count 4.84 3.70 - 10.30 10*3/uL LAB HEMATOLOGY METHOD 03/27/2025 6:32 AM EDT [facility] RBC Count 2.53(L) 4.60 - 6.10 10*6/uL LAB HEMATOLOGY METHOD 03/27/2025 6:32 AM EDT [facility] HGB 7.5(L) 13.7 - 17.5 g/dL LAB HEMATOLOGY METHOD 03/27/2025 6:32 AM EDT [facility] HCT 23.7(L) 40.0 - 51.0 % LAB HEMATOLOGY METHOD 03/27/2025 6:32 AM EDT [facility] Platelet Count 206 155 - 369 10*3/uL LAB HEMATOLOGY METHOD 03/27/2025 6:32 AM EDT [facility] MCV 94 79 - 98 fL LAB HEMATOLOGY METHOD 03/27/2025 6:32 AM EDT [facility] MCH 29.6 26.0 - 32.0 pg LAB HEMATOLOGY METHOD 03/27/2025 6:32 AM EDT [facility] MCHC 31.6 30.7 - 35.5 g/dL LAB HEMATOLOGY METHOD 03/27/2025 6:32 AM EDT [facility] RDW 21.2(H) 11.5 - 14.5 % LAB HEMATOLOGY METHOD 03/27/2025 6:32 AM EDT [facility] MPV 10.1 8.8 - 12.5 fL LAB HEMATOLOGY METHOD 03/27/2025 6:32 AM EDT [facility] nRBC 0.0 <=0.0 per 100 WBCs LAB HEMATOLOGY METHOD 03/27/2025 6:32 AM EDT [facility] Differential Type Automated LAB HEMATOLOGY METHOD 03/27/2025 6:32 AM EDT [facility] Neutrophils % 47 % LAB HEMATOLOGY METHOD 03/27/2025 6:32 AM EDT [facility] Lymphocytes % 40 % LAB HEMATOLOGY METHOD 03/27/2025 6:32 AM EDT [facility] Monocytes % 8 % LAB HEMATOLOGY METHOD 03/27/2025 6:32 AM EDT [facility] Eosinophils % 3 % LAB HEMATOLOGY METHOD 03/27/2025 6:32 AM EDT [facility] Basophils % 1 % LAB HEMATOLOGY METHOD 03/27/2025 6:32 AM EDT [facility] Immature Granulocytes % 1 % LAB HEMATOLOGY METHOD 03/27/2025 6:32 AM EDT [facility] Neutrophils Absolute 2.26 1.60 - 6.10 10*3/uL LAB HEMATOLOGY METHOD 03/27/2025 6:32 AM EDT [facility] Lymphocytes Absolute 1.94 1.20 - 3.90 10*3/uL LAB HEMATOLOGY METHOD 03/27/2025 6:32 AM EDT [facility] Monocytes Absolute 0.39 0.30 - 0.90 10*3/uL LAB HEMATOLOGY METHOD 03/27/2025 6:32 AM EDT [facility] Eosinophils Absolute 0.14 0.00 - 0.50 10*3/uL LAB HEMATOLOGY METHOD 03/27/2025 6:32 AM EDT [facility] Basophils Absolute 0.04 0.00 - 0.10 10*3/uL LAB HEMATOLOGY METHOD 03/27/2025 6:32 AM EDT [facility] Immature Granulocytes Absolute 0.07(H) 0.00 - 0.06 10*3/uL LAB HEMATOLOGY METHOD 03/27/2025 6:32 AM EDT [facility] Blood Venous blood specimen / Unknown Venipuncture / Unknown 03/27/2025 5:55 AM EDT 03/27/2025 6:23 AM EDT [facility] - 03/27/2025 6:32 AM EDT Therapeutic decision making should be based on absolute values, rather than percentages. Yin Christopher MD LAB BLOOD ORDERABLES Fi nal Result [facility] [address] [place] [address] * (ABNORMAL) Comprehensive Metabolic Panel, Plasma (03/27/2025 5:55 AM EDT) Glucose, Plasma 101(H) 74 - 99 mg/dL 03/27/2025 6:51 AM EDT [facility] BUN, Plasma 22 8 - 23 mg/dL 03/27/2025 6:51 AM EDT [facility] Creatinine, Plasma 0.73 0.70 - 1.20 mg/dL 03/27/2025 6:51 AM EDT [facility] BUN/Creatinine Ratio 30 03/27/2025 6:51 AM EDT [facility] Sodium, Plasma 135(L) 136 - 145 mmol/L 03/27/2025 6:51 AM EDT [facility] Potassium, Plasma 3.9 3.6 - 4.9 mmol/L 03/27/2025 6:51 AM EDT [facility] Chloride, Plasma 104 97 - 107 mmol/L 03/27/2025 6:51 AM EDT [facility] CO2, Plasma 21(L) 22 - 29 mmol/L 03/27/2025 6:51 AM EDT [facility] Anion Gap 10 6 - 16 mmol/L 03/27/2025 6:51 AM EDT [facility] Total Calcium, Plasma 8.0(L) 8.9 - 10.2 mg/dL 03/27/2025 6:51 AM EDT [facility] Total Protein 5.1(L) 6.3 - 7.9 g/dL 03/27/2025 6:51 AM EDT [facility] Albumin, Plasma 2.7(L) 3.5 - 5.2 g/dL 03/27/2025 6:51 AM EDT [facility] AST, Plasma 24 10 - 50 U/L 03/27/2025 6:51 AM EDT [facility] ALT, Plasma 18 10 - 50 U/L 03/27/2025 6:51 AM EDT [facility] Alkaline Phosphatase, Plasma 80 40 - 115 U/L 03/27/2025 6:51 AM EDT [facility] Total Bilirubin, Plasma 0.6 0.2 - 1.1 mg/dL 03/27/2025 6:51 AM EDT [facility] eGFRcr 100.3 mL/min/1.7 3m*2 03/27/2025 6:51 AM EDT [facility] Comment:Reported eGFRcr in m L/min/1.73m2 is based the CKD-EPI 2020 equation that does not use a race coefficient. Blood Venous blood specimen / Unknown Venipuncture / Unknown 03/27/2025 5:55 AM EDT 03/27/2025 6:22 AM EDT Yin Christopher MD LAB BLOOD ORDERABLES Fi nal Result Performing Organization Address City/[facility]/ZIP Co de Phone Number [facility] [address] [place] [address] * (ABNORMAL) Magnesium, Plasma (03/27/2025 5:55 AM EDT) Magnesium, Plasma 1.8(L) 1.9 - 2.4 mg/dL 03/27/2025 6:51 AM EDT [facility] Blood Venous blood specimen / Unknown Venipuncture / Unknown 03/27/2025 5:55 AM EDT 03/27/2025 6:22 AM EDT Yin Christopher MD LAB BLOOD ORDERABLES Fi nal Result [facility] [address] [place] [address] * Phosphorus, Plasma (03/27/2025 5:55 AM EDT) Phosphorus, Plasma 3.0 2.5 - 4.5 mg/dL 03/27/2025 6:51 AM EDT [facility] Blood Venous blood specimen / Unknown Venipuncture / Unknown 03/27/2025 5:55 AM EDT 03/27/2025 6:22 AM EDT us Yin Christopher MD LAB BLOOD ORDERABLES Fi nal Result Performing Organization Address City/[facility]/ZIP Co de Phone Number [facility] [address] [place] [address] * (ABNORMAL) Hemoglobin and Hematocrit, Blood (03/27/2025 5:55 AM EDT) HGB 7.5(L) 13.7 - 17.5 g/dL LAB HEMATOLOGY METHOD 03/27/2025 6:32 AM EDT [facility] HCT 23.7(L) 40.0 - 51.0 % LAB HEMATOLOGY METHOD 03/27/2025 6:32 AM EDT [facility] Blood Venous blood specimen / Unknown Venipuncture / Unknown 03/27/2025 5:55 AM EDT 03/27/2025 6:23 AM EDT us Ramez Cordoba APRN, DNP LAB BLOOD ORDERAB LES Final Result Performing Organization Address City/[facility] Co de Phone Number [facility] [address] [place] [address] * (ABNORMAL) Hemoglobin and Hematocrit, Blood (03/26/2025 11:39 PM EDT) HGB 7.2(L) 13.7 - 17.5 g/dL LAB HEMATOLOGY METHOD 03/26/2025 11:52 PM EDT [facility] HCT 23.2(L) 40.0 - 51.0 % LAB HEMATOLOGY METHOD 03/26/2025 11:52 PM EDT [facility] Blood Venous blood specimen / Unknown Venipuncture / Unknown 03/26/2025 11:39 PM EDT 03/26/2025 11:45 PM EDT us Ramezluz Cordoba WAITER/WAITRESS ECONOMY CLASS, DNP LAB BLOOD ORDERAB LES Final Result Performing Organization Address City/[facility]/ZIP Co de Phone Number [facility] [address] [place] [address] * (ABNORMAL) Hemoglobin and Hematocrit, Blood (03/26/2025 5:52 PM EDT) HGB 7.8(L) 13.7 - 17.5 g/dL LAB HEMATOLOGY METHOD 03/26/2025 6:12 PM EDT [facility] HCT 24.0(L) 40.0 - 51.0 % LAB HEMATOLOGY METHOD 03/26/2025 6:12 PM EDT [facility] Blood Venous blood specimen / Unknown Venipuncture / Unknown 03/26/2025 5:52 PM EDT 03/26/2025 5:58 PM EDT us Ramezluz Cordoba APRN, DNP LAB BLOOD ORDERAB LES Final Result Performing Organization Address City/[facility]/ZIP Co de Phone Number [facility] [address] [place] [address] * (ABNORMAL) Hemoglobin and Hematocrit, Blood (03/26/2025 11:42 AM EDT) HGB 7.3(L) 13.7 - 17.5 g/dL LAB HEMATOLOGY METHOD 03/26/2025 11:53 AM EDT [facility] HCT 23.5(L) 40.0 - 51.0 % LAB HEMATOLOGY METHOD 03/26/2025 11:53 AM EDT [facility] Blood Venous blood specimen / Unknown Venipuncture / Unknown 03/26/2025 11:42 AM EDT 03/26/2025 11:45 AM EDT us Ramezluz Cordoba WAITER/WAITRESS ECONOMY CLASS, DNP LAB BLOOD ORDERAB LES Final Result [facility] [address] [place] [address] * (ABNORMAL) Hemoglobin and Hematocrit, Blood (03/26/2025 5:38 AM EDT) HGB 7.7(L) 13.7 - 17.5 g/dL LAB HEMATOLOGY METHOD 03/26/2025 6:02 AM EDT [facility] HCT 24.6(L) 40.0 - 51.0 % LAB HEMATOLOGY METHOD 03/26/2025 6:02 AM EDT [facility] Blood Venous blood specimen / Unknown Venipuncture / Unknown 03/26/2025 5:38 AM EDT 03/26/2025 5:48 AM EDT us Ramezluz Cordoba APRN, JESSE LAB BLOOD ORDERAB LES Final Result Performing Organization Address [facility]/ZIP Co de Phone Number [facility] [address] [place] [address] * (ABNORMAL) Hemoglobin and Hematocrit, Blood (03/26/2025 12:17 AM EDT) HGB 7.5(L) 13.7 - 17.5 g/dL LAB HEMATOLOGY METHOD 03/26/2025 12:33 AM EDT [facility] HCT 23.8(L) 40.0 - 51.0 % LAB HEMATOLOGY METHOD 03/26/2025 12:33 AM EDT [facility] Blood Venous blood specimen / Unknown Venipuncture / Unknown 03/26/2025 12:17 AM EDT 03/26/2025 12:26 AM EDT us Ramezgucci Cordoba APRN, JESSE LAB BLOOD ORDERAB LES Final Result Performing Organization Address [facility]/ZIP Co de Phone Number [facility] [address] [place] [address] * (ABNORMAL) Basic metabolic panel (03/26/2025 12:17 AM EDT) Glucose, Plasma 99 74 - 99 mg/dL 03/26/2025 12:54 AM EDT [facility] BUN, Plasma 24(H) 8 - 23 mg/dL 03/26/2025 12:54 AM EDT [facility] Creatinine, Plasma 0.75 0.70 - 1.20 mg/dL 03/26/2025 12:54 AM EDT [facility] BUN/Creatinine Ratio 32 03/26/2025 12:54 AM EDT [facility] Sodium, Plasma 137 136 - 145 mmol/L 03/26/2025 12:54 AM EDT [facility] Potassium, Plasma 4.1 3.6 - 4.9 mmol/L 03/26/2025 12:54 AM EDT [facility] Chloride, Plasma 107 97 - 107 mmol/L 03/26/2025 12:54 AM EDT [facility] CO2, Plasma 19(L) 22 - 29 mmol/L 03/26/2025 12:54 AM EDT [facility] Anion Gap 11 6 - 16 mmol/L 03/26/2025 12:54 AM EDT [facility] Total Calcium, Plasma 7.9(L) 8.9 - 10.2 mg/dL 03/26/2025 12:54 AM EDT [facility] eGFRcr 99.5 mL/min/1.7 3m*2 03/26/2025 12:54 AM EDT [facility] Comment:Reported eGFRcr in m L/min/1.73m2 is based the CKD-EPI 2020 equation that does not use a race coefficient. Blood Venous blood specimen / Unknown Venipuncture / Unknown 03/26/2025 12:17 AM EDT 03/26/2025 12:26 AM EDT us Ramezgucci Cordoba APRN, DNP LAB BLOOD ORDERAB LES Final Result [facility] [address] [place] [address] * (ABNORMAL) CBC (03/26/2025 12:17 AM EDT) WBC Count 5.76 3.70 - 10.30 10*3/uL LAB HEMATOLOGY METHOD 03/26/2025 12:33 AM EDT [facility] RBC Count 2.61(L) 4.60 - 6.10 10*6/uL LAB HEMATOLOGY METHOD 03/26/2025 12:33 AM EDT [facility] HGB 7.5(L) 13.7 - 17.5 g/dL LAB HEMATOLOGY METHOD 03/26/2025 12:33 AM EDT [facility] HCT 23.8(L) 40.0 - 51.0 % LAB HEMATOLOGY METHOD 03/26/2025 12:33 AM EDT [facility] Platelet Count 214 155 - 369 10*3/uL LAB HEMATOLOGY METHOD 03/26/2025 12:33 AM EDT [facility] MCV 91 79 - 98 fL LAB HEMATOLOGY METHOD 03/26/2025 12:33 AM EDT [facility] MCH 28.7 26.0 - 32.0 pg LAB HEMATOLOGY METHOD 03/26/2025 12:33 AM EDT [facility] MCHC 31.5 30.7 - 35.5 g/dL LAB HEMATOLOGY METHOD 03/26/2025 12:33 AM EDT [facility] RDW 20.7(H) 11.5 - 14.5 % LAB HEMATOLOGY METHOD 03/26/2025 12:33 AM EDT [facility] MPV 10.0 8.8 - 12.5 fL LAB HEMATOLOGY METHOD 03/26/2025 12:33 AM EDT [facility] nRBC 0.3(H) <=0.0 per 100 WBCs LAB HEMATOLOGY METHOD 03/26/2025 12:33 AM EDT [facility] Blood Venous blood specimen / Unknown Venipuncture / Unknown 03/26/2025 12:17 AM EDT 03/26/2025 12:26 AM EDT us Ramezluz Cordoba WAITER/WAITRESS ECONOMY CLASS, DNP LAB BLOOD ORDERAB LES Final Result [facility] [address] [place] [address] * (ABNORMAL) Hemoglobin and Hematocrit, Blood (03/25/2025 6:17 PM EDT) [facility] Signature HGB 7.6(L) 13.7 - 17.5 g/dL LAB HEMATOLOGY METHOD 03/25/2025 6:33 PM EDT [facility] HCT 24.2(L) 40.0 - 51.0 % LAB HEMATOLOGY METHOD 03/25/2025 6:33 PM EDT [facility] Blood Venous blood specimen / Unknown Venipuncture / Unknown 03/25/2025 6:17 PM EDT 03/25/2025 6:23 PM EDT us Ramez Cordoba APRN, JESSE LAB BLOOD ORDERAB LES Final Result [facility] [address] [place] [address] * Transfuse RBC (03/25/2025 5:27 PM EDT) [...] abdominal pain, fever, gastrointestinal bleeding and call refrigeration operator GI if present. - Findings and recommendations were discussed with patient. - Findings and recommendations to be conveyed to primary team. Indication Acute GI bleeding Medications See anesthesia record for anesthesia administered medications. Staff Staff Role Elbert Monreal CRNA CRNA Hansberry, Jolynn Endo Production Floater Betsy Ellis, RN Endo Nurse Meagan Aggarwal [...] RBC: 1 Units (03/25/2025 12:25 PM EDT) [facility] Product Code [id number] BLOO D BANK Dispense Status Transfused BLOOD BANK Blood Expiration Date [id number] BLOOD BANK Unit Number [id number] B LOOD BANK Product Blood Type 5100 BLOOD BANK Blood Type O+ BLOOD BANK Crossmatch Compatible BLOOD BANK Other Yin Christopher MD BLOOD BANK PRODUCT ORDE RABSABINO Final Result BLOOD BANK [address] [place] [address], * (ABNORMAL) Hemoglobin and Hematocrit, Blood (03/25/2025 11:46 AM EDT) HGB 6.5(L) 13.7 - 17.5 g/dL LAB HEMATOLOGY METHOD 03/25/2025 12:05 PM EDT [facility] HCT 20.9(L) 40.0 - 51.0 % LAB HEMATOLOGY METHOD 03/25/2025 12:05 PM EDT [facility] Blood Venous blood specimen / Unknown Venipuncture / Unknown 03/25/2025 11:46 AM EDT 03/25/2025 12:04 PM EDT us Ramez N Adalid WAITER/WAITRESS ECONOMY CLASS, DNP LAB BLOOD ORDERAB LES Final Result [facility] [address] [place] [address] * (ABNORMAL) Troponin T, High Sensitivity, 2 Hour, Plasma (03/25/2025 8:28 AM EDT) Troponin T, High Sensitivity, 2 Hour 74(H) <19 ng/L 03/25/2025 9:14 AM EDT [facility] Troponin Delta 3 <10 ng/L 03/25/2025 9:14 AM EDT [facility] Troponin Delta Interpretation Not Significant 03/25/2025 9:14 AM EDT [facility] Comment:Not Significant. No acute change in troponin observed between the baseline and 2 hour samples. Blood Venous blood specimen / Unknown Venipuncture / Unknown 03/25/2025 8:28 AM EDT 03/25/2025 8:44 AM EDT us Ramezluz Cordoba APRN, DNP LAB BLOOD ORDERAB LES Final Result Performing Organization Address City/[facility]/ZIP Co de Phone Number [facility] [address] [place] [address] * (ABNORMAL) Hemoglobin and Hematocrit, Blood (03/25/2025 8:28 AM EDT) HGB 7.0(L) 13.7 - 17.5 g/dL LAB HEMATOLOGY METHOD 03/25/2025 9:02 AM EDT [facility] HCT 22.3(L) 40.0 - 51.0 % LAB HEMATOLOGY METHOD 03/25/2025 9:02 AM EDT [facility] Blood Venous blood specimen / Unknown Venipuncture / Unknown 03/25/2025 8:28 AM EDT 03/25/2025 8:46 AM EDT us Ramezluz Cordoba APRN, DNP LAB BLOOD ORDERAB LES Final Result Performing Organization Address City/[facility]/ZIP Co de Phone Number [facility] [address] [place] [address] * Haptoglobin (03/25/2025 6:23 AM EDT) Haptoglobin, Serum 167 40 - 219 mg/dL 03/25/2025 6:59 AM EDT [facility] Blood Venous blood specimen / Unknown Venipuncture / Unknown 03/25/2025 6:23 AM EDT 03/25/2025 6:29 AM EDT us Ramezluz Cordoba APRN, DNP LAB BLOOD ORDERAB LES Final Result Performing Organization Address [facility]/ZIP Co de Phone Number [facility] [address] [place] [address] * (ABNORMAL) Troponin T, High Sensitivity, 0 Hour Plasma, Reflex to 2 Hour (03/25/2025 6:23 AM EDT) Troponin T, High Sensitivity, 0 Hour 77(H) <19 ng/L 03/25/2025 6:58 AM EDT [facility] Blood Venous blood specimen / Unknown Venipuncture / Unknown 03/25/2025 6:23 AM EDT 03/25/2025 6:29 AM EDT us Ramezgucci Cordoba APRN, DNP LAB BLOOD ORDERAB LES Final Result Performing Organization Address City/[facility]/ZIP Co de Phone Number [facility] [address] [place] [address] * Lactate, venous (03/25/2025 6:23 AM EDT) Lactate, Venous, Whole Blood 0.8 0.5 - 2.2 mmol/L LAB HEMATOLOGY METHOD 03/25/2025 6:28 AM EDT [facility] Blood Venous blood specimen / Unknown Venipuncture / Unknown 03/25/2025 6:23 AM EDT 03/25/2025 6:27 AM EDT us Ramezgucci Cordoba APRN, JESSE LAB BLOOD ORDERAB LES Final Result Performing Organization Address City/[facility]/ZIP Co de Phone Number [facility] [address] [place] [address] * (ABNORMAL) Iron & Total Iron Binding Capacity, Plasma (Includes Transferrin) (03/25/2025 3:36 AM EDT) [facility] Iron, Plasma 81 50 - 170 ug/dL 03/25/2025 6:04 AM EDT [facility] Transferrin, Plasma 195(L) 200 - 360 mg/dL 03/25/2025 6:04 AM EDT [facility] Total Iron Binding Capacity, Plasma 244 240 - 450 ug/mL 03/25/2025 6:04 AM EDT [facility] Transferrin Saturation 33 14 - 50 % 03/25/2025 6:04 AM EDT [facility] Blood Venous blood specimen / Unknown Venipuncture / Unknown 03/25/2025 3:36 AM EDT 03/25/2025 3:50 AM EDT us Ramez Cordoba APRN, DNP LAB BLOOD ORDERAB LES Final Result Performing Organization Address City/[facility]/ZIP Co de Phone Number [facility] [address] [place] [address] * C-reactive protein (03/25/2025 3:36 AM EDT) Pathologist [facility] CRP, Plasma 6.3 <=8.0 mg/L 03/25/2025 6:04 AM EDT [facility] Blood Venous blood specimen / Unknown Venipuncture / Unknown 03/25/2025 3:36 AM EDT 03/25/2025 3:50 AM EDT Narrative [facility] - 03/25/2025 6:04 AM EDT This CRP test is appropriate for assessment of infection, systemic inflammation and/or tissue injury. To assess cardiovascular disease risk order high sensitivity CRP (CRPH). us Ramez Cordoba APRN, JESSE LAB BLOOD ORDERAB LES Final Result Performing Organization Address [facility]/ZIP Co de Phone Number [facility] [address] [place] [address] * (ABNORMAL) Hepatic function panel (03/25/2025 3:36 AM EDT) Conjugated Bilirubin, Plasma 0.5(H) <=0.3 mg/dL 03/25/2025 4:22 AM EDT [facility] Alkaline Phosphatase, Plasma 74 40 - 115 U/L 03/25/2025 4:22 AM EDT [facility] Total Bilirubin, Plasma 1.0 0.2 - 1.1 mg/dL 03/25/2025 4:22 AM EDT [facility] Albumin, Plasma 2.7(L) 3.5 - 5.2 g/dL 03/25/2025 4:22 AM EDT [facility] Total Protein 5.1(L) 6.3 - 7.9 g/dL 03/25/2025 4:22 AM EDT [facility] ALT, Plasma 21 10 - 50 U/L 03/25/2025 4:22 AM EDT [facility] AST, Plasma 26 10 - 50 U/L 03/25/2025 4:22 AM EDT [facility] Blood Venous blood specimen / Unknown Venipuncture / Unknown 03/25/2025 3:36 AM EDT 03/25/2025 3:50 AM EDT us Gretchen Hidalgo MD LAB BLOOD ORDERABLES Final Re sult Performing Organization Address City/[facility]/ZIP Co de Phone Number [facility] [address] [place] [address] * ECG Adult (03/25/2025 3:31 AM EDT) [facility] EKG DIAGNOSIS CLASS Abnormal MUSE ECG Ventricular Rate 62 BPM MUSE ECG Atrial Rate 62 BPM MUSE ECG AK Interval 182 ms MUSE ECG QRSD Interval 94 ms MUSE ECG QT Interval 450 ms MUSE ECG QTC Interval 456 ms MUSE ECG P [place] 69 degrees MUSE ECG R [place] 42 degrees MUSE ECG T Wave [place] 138 degrees MUSE ECG Diagnosis Normal sinus [...] * Lactate dehydrogenase (03/25/2025 3:29 AM EDT) [facility] LDH, Plasma 236 116 - 250 U/L 03/25/2025 6:09 AM EDT [facility] Blood Venous blood specimen / Unknown Venipuncture / Unknown 03/25/2025 3:29 AM EDT 03/25/2025 3:50 AM EDT us Ramez Cordoba APRN, DNP LAB BLOOD ORDERAB LES Final Result [facility] [address] [place] [address] * (ABNORMAL) Reticulocytes (03/25/2025 3:29 AM EDT) [facility] Reticulocyte Absolute 214.2(H) 40.0 - 110.0 10*3/uL LAB HEMATOLOGY METHOD 03/25/2025 5:46 AM EDT [facility] Immature Reticulocyte Fraction 43.1(H) 3.1 - 17.6 % LAB HEMATOLOGY METHOD 03/25/2025 5:46 AM EDT [facility] Reticulocyte Hemoglobin 29.9 28 - 38 pg LAB HEMATOLOGY METHOD 03/25/2025 5:46 AM EDT [facility] Reticulocyte Count 8.50(H) 0.90 - 2.50 % LAB HEMATOLOGY METHOD 03/25/2025 5:46 AM EDT [facility] Blood Venous blood specimen / Unknown Venipuncture / Unknown 03/25/2025 3:29 AM EDT 03/25/2025 3:32 AM EDT us Ramez N Adalid WAITER/[employer], DNP LAB BLOOD ORDERAB LES Final Result Performing Organization Address City/[facility]/ZIP Co de Phone Number [facility] [address] [place] [address] * (ABNORMAL) N-Terminal Probnp (03/25/2025 3:29 AM EDT) N-Terminal, PROBNP, Plasma 1,495(H) 0 - 899 pg/mL 03/25/2025 6:09 AM EDT [facility] Blood Venous blood specimen / Unknown Venipuncture / Unknown 03/25/2025 3:29 AM EDT 03/25/2025 3:50 AM EDT us Ramez N Adalid JARRELLN, DNP LAB BLOOD ORDERAB LES Final Result Performing Organization Address City/[facility]/ZIP Co de Phone Number [facility] [address] [place] [address] * Procalcitonin (03/25/2025 3:29 AM EDT) Procalcitonin, Plasma 0.08 <0.09 ng/mL 03/25/2025 6:09 AM EDT [facility] Blood Venous blood specimen / Unknown Venipuncture / Unknown 03/25/2025 3:29 AM EDT 03/25/2025 3:50 AM EDT Narrative [facility] - 03/25/2025 6:09 AM [...] predict 28 day mortality risk. Please consult [email or web address] for more information. Test performed at [facility]. us Ramez Cordoba APRN, DNP LAB BLOOD ORDERAB LES Final Result Performing Organization Address [facility] Co de Phone Number [facility] [address] [place] [address] * (ABNORMAL) PT-INR (03/25/2025 3:29 AM EDT) [facility] Prothrombin Time 20.1(H) 12.0 - 14.3 sec 03/25/2025 3:47 AM EDT [facility] INR 1.7(H) 0.9 - 1.1 03/25/2025 3:47 AM EDT [facility] Blood Venous blood specimen / Unknown Venipuncture / Unknown 03/25/2025 3:29 AM EDT 03/25/2025 3:32 AM EDT Narrative [facility] - 03/25/2025 3:47 AM EDT OPTIMAL INR RANGES FOR PATIENT ON ORAL ANTICOAGULANT THERAPY Prevention of venous thromboembolism INR 2.0 to 3.0 In patients with heart disease: Atrial fibrillation INR 2.0 to 3.0 Valvular heart disease INR 2.0 to 3.0 Tissue heart valves INR 2.0 to 3.0 Mechanical prosthetic valves INR 2.5 to 3.5 Prevention of recurrent NV INR 2.5 to 3.5 us Gretchen Hidalgo MD LAB BLOOD ORDERABLES Final Re sult Performing Organization Address [facility] Co de Phone Number [facility] [address] [place] [address] * Type and screen (03/25/2025 3:29 AM [...] ORDERABLE S Final Result Performing Organization Address [facility]/ZIP Co de Phone Number BLOOD BANK [address] [place] [address], * (ABNORMAL) Troponin now and 120 min (03/25/2025 3:29 AM EDT) Troponin T, High Sensitivity, 0 Hour 81(H) <19 ng/L 03/25/2025 4:20 AM EDT [facility] Blood Venous blood specimen / Unknown Venipuncture / Unknown 03/25/2025 3:29 AM EDT 03/25/2025 3:50 AM EDT Gretchen Hidalgo MD LAB BLOOD ORDERABLES Final Re sult [facility] [address] [place] [address] * (ABNORMAL) BMP (03/25/2025 3:29 AM EDT) Glucose, Plasma 104(H) 74 - 99 mg/dL 03/25/2025 4:20 AM EDT [facility] BUN, Plasma 33(H) 8 - 23 mg/dL 03/25/2025 4:20 AM EDT [facility] Creatinine, Plasma 0.85 0.70 - 1.20 mg/dL 03/25/2025 4:20 AM EDT [facility] BUN/Creatinine Ratio 39 03/25/2025 4:20 AM EDT [facility] Sodium, Plasma 137 136 - 145 mmol/L 03/25/2025 4:20 AM EDT [facility] Potassium, Plasma 4.3 3.6 - 4.9 mmol/L 03/25/2025 4:20 AM EDT [facility] Chloride, Plasma 106 97 - 107 mmol/L 03/25/2025 4:20 AM EDT [facility] CO2, Plasma 21(L) 22 - 29 mmol/L 03/25/2025 4:20 AM EDT [facility] Anion Gap 10 6 - 16 mmol/L 03/25/2025 4:20 AM EDT [facility] Total Calcium, Plasma 8.1(L) 8.9 - 10.2 mg/dL 03/25/2025 4:20 AM EDT [facility] eGFRcr 95.8 mL/min/1.7 3m*2 03/25/2025 4:20 AM EDT [facility] Comment:Reported eGFRcr in m L/min/1.73m2 is based the CKD-EPI 2020 equation that does not use a race coefficient. Blood Venous blood specimen / Unknown Venipuncture / Unknown 03/25/2025 3:29 AM EDT 03/25/2025 3:50 AM EDT us Gretchen Hidalgo MD LAB BLOOD ORDERABLES Final Re sult [facility] [address] [place] [address] * (ABNORMAL) CBC with Diff (03/25/2025 3:29 AM EDT) WBC Count 7.34 3.70 - 10.30 10*3/uL LAB HEMATOLOGY METHOD 03/25/2025 3:34 AM EDT [facility] RBC Count 2.56(L) 4.60 - 6.10 10*6/uL LAB HEMATOLOGY METHOD 03/25/2025 3:34 AM EDT [facility] HGB 7.4(L) 13.7 - 17.5 g/dL LAB HEMATOLOGY METHOD 03/25/2025 3:34 AM EDT [facility] HCT 23.8(L) 40.0 - 51.0 % LAB HEMATOLOGY METHOD 03/25/2025 3:34 AM EDT [facility] Platelet Count 220 155 - 369 10*3/uL LAB HEMATOLOGY METHOD 03/25/2025 3:34 AM EDT [facility] MCV 93 79 - 98 fL LAB HEMATOLOGY METHOD 03/25/2025 3:34 AM EDT [facility] MCH 28.9 26.0 - 32.0 pg LAB HEMATOLOGY METHOD 03/25/2025 3:34 AM EDT [facility] MCHC 31.1 30.7 - 35.5 g/dL LAB HEMATOLOGY METHOD 03/25/2025 3:34 AM EDT [facility] RDW 20.9(H) 11.5 - 14.5 % LAB HEMATOLOGY METHOD 03/25/2025 3:34 AM EDT [facility] MPV 9.4 8.8 - 12.5 fL LAB HEMATOLOGY METHOD 03/25/2025 3:34 AM EDT [facility] nRBC 0.3(H) <=0.0 per 100 WBCs LAB HEMATOLOGY METHOD 03/25/2025 3:34 AM EDT [facility] Differential Type Automated LAB HEMATOLOGY METHOD 03/25/2025 3:34 AM EDT [facility] Neutrophils % 54 % LAB HEMATOLOGY METHOD 03/25/2025 3:34 AM EDT [facility] Lymphocytes % 34 % LAB HEMATOLOGY METHOD 03/25/2025 3:34 AM EDT [facility] Monocytes % 8 % LAB HEMATOLOGY METHOD 03/25/2025 3:34 AM EDT [facility] Eosinophils % 1 % LAB HEMATOLOGY METHOD 03/25/2025 3:34 AM EDT [facility] Basophils % 1 % LAB HEMATOLOGY METHOD 03/25/2025 3:34 AM EDT [facility] Immature Granulocytes % 2 % LAB HEMATOLOGY METHOD 03/25/2025 3:34 AM EDT [facility] Neutrophils Absolute 4.01 1.60 - 6.10 10*3/uL LAB HEMATOLOGY METHOD 03/25/2025 3:34 AM EDT [facility] Lymphocytes Absolute 2.52 1.20 - 3.90 10*3/uL LAB HEMATOLOGY METHOD 03/25/2025 3:34 AM EDT [facility] Monocytes Absolute 0.56 0.30 - 0.90 10*3/uL LAB HEMATOLOGY METHOD 03/25/2025 3:34 AM EDT [facility] Eosinophils Absolute 0.05 0.00 - 0.50 10*3/uL LAB HEMATOLOGY METHOD 03/25/2025 3:34 AM EDT [facility] Basophils Absolute 0.05 0.00 - 0.10 10*3/uL LAB HEMATOLOGY METHOD 03/25/2025 3:34 AM EDT [facility] Immature Granulocytes Absolute 0.15(H) 0.00 - 0.06 10*3/uL LAB HEMATOLOGY METHOD 03/25/2025 3:34 AM EDT [facility] Blood Venous blood specimen / Unknown Venipuncture / Unknown 03/25/2025 3:29 AM EDT 03/25/2025 3:32 AM EDT Narrative [facility] - 03/25/2025 3:34 AM EDT Therapeutic decision making should be based on absolute values, rather than percentages. us Gretchen Hidalgo MD LAB BLOOD ORDERABLES Final Re sult [facility] [address] [place] [address] documented in this encounter Visit Diagnoses Diagnosis Upper GI bleeding- Primary Unspecified, hemorrhage of gastrointestinal tract Acute GI bleeding Unspecified, hemorrhage of gastrointestinal tract Severe anemia Generalized weakness Upper GI bleeding Unspecified, hemorrhage of gastrointestinal tract Persistent atrial fibrillation ([facility]) Atrial fibrillation Duodenal ulcer CAD, multiple vessel HLD (hyperlipidemia) Other and unspecified hyperlipidemia HTN (hypertension) Unspecified essential hypertension COPD (chronic obstructive pulmonary disease) ([facility]) Chronic airway obstruction, not elsewhere classified GERD (gastroesophageal reflux disease) Esophageal reflux Heart failure with mid-range ejection fraction (HFmEF) ([facility]) S/P CABG x 4 Postsurgical aortocoronary bypass [...] 12 hours, First dose on [facility] 03/25/25 at 0800, Until Discontinued, Routine [...] times daily, First dose on [facility] 03/25/25 at 0900, Until Discontinued, Routine Given 03/28/2025 8:08 PM EDT 5 mg Given 03/28/2025 9:11 AM EDT 5 mg Given 03/27/2025 8:09 PM EDT 5 mg aspirin chewable tablet 81 mg 81 mg, Oral, Daily, First dose on [facility] 03/27/25 at 0900, Until Discontinued, [...] 2 g, Intravenous, Once, 1 dose, On [facility] 03/27/25 at 1945, Routine New Bag 03/27/2025 8:08 PM EDT 2 g 25 mL/hr metoprolol tartrate (Lopressor) tablet 75 mg 75 mg, Oral, 2 times daily, First dose on [facility] 03/27/25 at 2100, Until Discontinued, Routine Given 03/31/2025 8:12 AM EDT 75 mg Given 03/30/2025 9:20 PM EDT 75 mg Given 03/30/2025 8:34 AM EDT 75 mg mometasone-formoterol (Dulera 100) 100-5 MCG/ACT inhaler 2 puff 2 puff, Inhalation, 2 times daily, First dose on [facility] 03/25/25 at 0900, Until Discontinued, Routine Given 03/31/2025 8:11 AM EDT 2 puffs Given 03/30/2025 9:19 PM EDT 2 puffs Given 03/30/2025 8:33 AM EDT 2 puffs morphine PF 4 mg 4 mg, Intravenous, Once as needed, 1 dose, Starting on [facility] 03/25/25 at 0433, Until [place] 03/25/25 [...] Oral, 2 times daily, First dose on [facility] 03/27/25 at 2100, Until Discontinued, Routine Given 03/31/2025 8:12 AM EDT 40 mg Given 03/30/2025 9:20 PM EDT 40 mg Given 03/30/2025 8:34 AM EDT 40 mg pantoprazole (Protonix) injection 40 mg 40 mg, Intravenous, 2 times daily, First dose on [facility] 03/25/25 at 0900, Until Discontinued, Routine Given 03/27/2025 8:36 AM EDT 40 mg Given 03/26/2025 8:00 PM EDT 40 mg Given 03/26/2025 9:28 AM EDT 40 mg polyethylene glycol (Miralax) packet 17 g 17 g, Oral, Daily, First dose on [facility] 03/25/25 at 0900, Until Discontinued, Routine Given 03/29/2025 8:44 AM EDT 17 g Given 03/28/2025 9:11 AM EDT 17 g Given 03/27/2025 8:37 AM EDT 17 g senna (Senokot) tablet 17.2 mg 17.2 mg (2 tablet), Oral, Nightly, First dose on [facility] 03/25/25 at 2100, Until Discontinued, Routine Given 03/30/2025 9:20 PM EDT 17.2 mg Given 03/29/2025 8:15 PM EDT 17.2 mg Given 03/28/2025 8:08 PM EDT 17.2 mg sodium chloride 0.9 % flush 10 mL 10 mL, Intravenous, Every 12 hours, First dose on [facility] 03/25/25 at 0520, Until Discontinued, Routine [...] 12 hours, First dose on [facility] 03/25/25 at 0540, Until Discontinued, Routine [...] 03/30/2025 12:49 PM EDT 1 g Tiotropium [place] Monohydrate (Spiriva Respimat) 2.5 MCG/ACT inhaler 2 [...] canceled at discontinue of medication order) Tiotropium [place] Monohydrate (Spiriva Respimat) 2.5 MCG/ACT inhaler 2 [...] documented as of this encounter Care Teams Supervisor [employer] Relationship Specialty Start Date End Date Kiera Castro APRN [address] [place] [address] PCP - General 02/17/25 documented as of this encounter
--- OUTSIDE RECORDS SUMMARY | 2025-03-25 17:04 | XMS_ITS | Encounter Summary ---
Author Organization Healthcare Address [address] [id number] Care Team Providers Care Roustabout Crew Name Role Phone Kiera Castro APRN Primary Care Provider [phone] Reason for Visit * Auth/Cert (Routine) Specialty Diagnoses / Procedures Referred By Contac t Referred To Contact Diagnoses Upper GI bleeding Acute GI bleeding Generalized weakness Severe anemia Low Hemoglobin, status post CABG Iliana Lopez MD [address] [place] [address] Phone: tel: fax: [facility] [address] [place] [address] Phone: tel: Referral ID Status Reason Start Date Expiration Date Visits Re quested Visits Authorized [id number] 1 1 Encounter Details Date Type Department Care Team (Late st Contact Info) Description 03/25/2025 5:04 PM EDT Anesthesia Event [facility] [address] [place] [address] Cristofer Delacruz MD [address] [place] [address] Pamela Ventura CRNA [address] [place] [address] Anesthesia Record Procedure Summary Procedure Name Responsible Anesthesiologist Anesthesia Start Time Anesthesia Stop Time EGD Cristofer Delacruz MD 03/25/25 1704 03/25/25 1734 Events Date Time Event Comment 03/25/2025 1604 1704 An Start The patient was reevaluated immediately before sedation and remains eligible for anesthesia plan. 1704 An Start Data 1704 In Room 1712 An Induction The patient was reevaluated immediately before moderate or deep sedation use and before anesthesia induction. 1712 Anesthesia Ready 1714 Proc Start 1719 Proc Fin 1722 Out of Room 1722 an stop data 1726 Handoff to Receiving I compl eted my handoff to the receiving clinician during which we: 1. Identified the patient 2. Identified the responsible provider 3. Reviewed the pertinent medical history 4. Discussed the surgical course 5. Reviewed intra-op anesthesia management and issues during anesthesia 6. Set expectations for post-procedure period 7. Allowed opportunity for questions and acknowledgement of understanding. 1734 An Stop Meds Name Total lidocaine PF (Xylocaine-MPF) 2% 3 mL propofol (Diprivan) injection 10 mg/mL 1 50 mg phenylephrine (Brayan-Synephrine) prefilled syringe 1 mg/10 mL 300 mcg * Agents No agents on file. * Blood No blood administrations on file. Lines, Drains, and Airways Type Details Placement Removal Wound 02/21/25; 1015; N; Y es; Surgical; Sternum; Mid 02/21/25 1015 by Sharona Cardenas RN Wound 02/21/25; 1016; N; Y es; Surgical; Pretibial; Proximal, Right 02/21/25 1016 by Sharona Cardenas RN Wound 02/27/25; 2300; Othe r (AOC); Coccyx; linear gluteal cleft AOC, originally purple now white and macerated 02/27/25 2300 by Alexia Chakraborty RN Wound 02/27/25; 2300; Surg ical; Closed Surgi; Groin; Anterior, Proximal, Right, Upper; 03/29/25; 1999; Healed 02/27/25 2300 by Alexia Chakraborty RN 03/29/251999 by Mirella Glez RN Peripheral IV Placement Date: 03/11 04/04; Placement Time: 325; Existing LDA Placed by: Outside Facility; Catheter Size: 18 G; Orientation: Left; Location: Antecubital; Removal Date: 03/30/25; Removal Time: 1999; Removal Reason: Leaking 03/25/25325 by Sylvia Leo 03/30/251999 by Mirella Glez RN Peripheral IV Placement Date: 03/11 04/04; Placement Time: 535; Existing LDA Placed by: Outside Facility; Catheter Size: 18 G; Orientation: Anterior, Distal, Right, Upper; Location: Arm; Removal Date: 03/31/25; Removal Time: 0903/25/25 0536 by Sylvia Leo 03/31/25 0935 by Sally Higgins RN documented in this encounter Social History Tobacco Use Types Packs/Day Years [...] money to buy more. Never true 03/27/20 Within the past 12 months, t he [...] the mortgage or rent on time? No 03/27/2025 Number of Times Moved in the Last Year Not on fi le 03/27/2025 At any time in the past [facility], were you homeless or living in a fpc (including now)? No 03/27/2025 Utilities Answer Date Recorded In the past 12 months has [facility] electric, gas, oil, or water company threatened to shut off services in your home? No 03/27/2025 Sex and Gender Information Value Date Recorded Sex Assigned at Not on file Legal Sex Male 8:34 PM EDT Gender Identity Not on file Sexual Orientation Not on file documented as of this encounter Functional Status * Calculated C-SSRS Risk Score (Lifetime/Recent) Answer Date of Assessment Author No Risk Indicated 03/25/2025 7:30 PM EDT Wilbur Lyn RN * Question Answer Date of Assessment Author 1. Wish to be (Past 1 Month) No 025 7:30 PM EDT Wilbur Vásquez RN 2. Non-Specific Active Suici prabhakar Thoughts (Past 1 Month) No 03/25/2025 7:30 PM EDT Sa hubert Vásquez RN 6. Suicidal Behavior (Lifetime) No 7:30 PM EDT Wilbur Vásquez RN documented as of this encounter Miscellaneous Notes * Anesthesia Postprocedure Evaluation - Elbert Monreal CRNA - 03/25/2025 5:35 PM EDT Patient: Shelly Nelson Anesthesia Type: general Vitals Value Taken Time BP 103/58 03/25/25 17:30 Temp 36.2 ??C (97.1 ??F) 03/25/25 17:25 Pulse 66 03/25/25 17:31 Resp 19 03/25/25 17:31 SpO2 100 % 03/25/25 17:31 Vitals shown include unfiled device data. Anesthesia Post Evaluation Patient location during evaluation: PACU Patient participation: complete - patient participated Level of consciousness: awake Pain management: adequate (pain score 0-3) Airway patency: natural airway Cardiovascular status: acceptable and hemodynamically stable Respiratory status: acceptable, airway suctioned, room air and spontaneous ventilation Hydration status: acceptable Nausea/Vomiting: No No notable events documented. * Anesthesia Preprocedure Evaluation - Carrie Murguia MD - 03/25/2025 3:54 PM EDT Patient: Shelly Nelson Procedure Information Date/Time: 03/25/25 1610 Scheduled providers: Suzanna Crockett RN; Meagan Saucedo MD Procedure: EGD Location: [facility] Mr. Shelly Nelson, a 64-year-old male with PMH of CAD s/p quadruple coronary artery bypass graft (CABG) and bioprosthetic aortic valve replacement (bAVR) on February 21, 2025, COPD, GERD, carotidartery disease, hypertension, Afib RVR on apixaban who presented to ED from an outside hospital with concern for upper GI bleed. Patient now presenting for the above procedure. Patient with GA in the past without any issues. He is appropriately NPO. > 4 METS. Anesthesia risks discussed with patient and patient wishes to proceed with surgery. Questions and concerns addressed. Electronic consent obtained. Last AC yesterday AM 03/24 (Eliquis) Relevant Problems Anesthesia (+) Obstructive sleep apnea Cardio (+) CAD, multiple vessel (+) HTN (hypertension) (+) Incomplete right bundle branch block (+) Persistent atrial fibrillation (CMS/HCC) (+) S/P CABG x 4 GI (+) GERD (gastroesophageal reflux disease) (+) Upper GI bleeding /Renal (+) BPH (benign prostatic hyperplasia) (+) S/P AVR (+) S/P CABG x 4 Neuro/Psych (+) S/P AVR (+) S/P CABG x 4 Pulmonary (+) COPD (chronic obstructive pulmonary disease) (CMS/HCC) ROS Anesthesia: history of previous anesthesia and history of anesthetic complications. Cardiovascular: CAD, CHF and dysrhythmias. hypertension: Cardio additional comments: ECHO 03/12 ?? Left Ventricle: The left ventricle is normal size. There is concentric hypertrophy. The LVEF is variable due to arrhythmia but is visually estimated at 40 - 55%. ?? Right Ventricle: The right ventricle is normal in size. The right ventricular systolic function is mildly reduced. ?? Aortic Valve: There is a bioprosthetic valve (29 mm Inspirus). There is no valvular regurgitation. There is no hemodynamically significant valvular aortic stenosis. The peak gradient is 6 mmHg. The mean gradient is 3 mmHg. The gradient is normal for this prosthetic valve. ?? Pericardium: No pericardial effusion. ?? Compared to the most recently available prior study, and allowing for differences in image quality and technique, there is now a bioprosthetic valve in the aortic position. . Respiratory: COPD: breathing at baseline. HEENT: missing teeth. Neurological: no seizures: Did not have a cerebrovascular accident. Gastrointestinal: GERD: Clinical information reviewed: Med Hx Tobacco Allergies Problems Surg Hx Soc Hx NPO Status Physical Exam Airway Mallampati: III Mouth opening: normal Neck ROM: full Cardiovascular Rhythm: regular Rate: normal Dental (+) edentulous Pulmonary Breath sounds clear to auscultation Neurological Skin - normal exam Musculoskeletal Extremities Anesthesia Plan ASA 4 Plan was reviewed with: attending and SUGAR MIXER Anesthesia technique(s) discussed with the patient/family: general Anesthesia plan agreed upon was: general Anesthetic plan and risks discussed with patient. Use of blood products discussed with patient who consented to blood products. Additional Equipment Requests Cosigned by Cristofer Delacruz MD at 03/25/2025 4:10 PM EDT Associated attestation - Cristofer Delacruz MD - 03/25/2025 4:10 PM EDT I agree with the findings and care plan documented in the preprocedure evaluation note. documented in this encounter Plan of Treatment Upcoming Encounters Date Type Department Care Team (Late st Contact Info) Description 08/03/2025 12:40 PM EDT Office Visit [facility] [address] [place] [address] Dimitrios Wright MD [address] [place] [address] documented as of this encounter Goals Goal Patient Goal Type Associated Problems Recent Progress Patient-Stated? Author Autogenerat ed Goal Care Plan Autogenerated Problem No Mauro Moeller RN documented as of this encounter Visit Diagnoses Not on filedocumented in this encounter Administered Medications Inactive Administered Medications - up to 3 most recent administrations Medication Order MAR Action Action Date Dose Rate Site lidocaine PF (Xylocaine) 2 % injection Intravenous, As needed, Starting on Paola 03/25/25 at 1712, Until Paola 03/25/25 at 1734, Routine, Anesthesia Intraprocedure Given 03/25/2025 5:12 PM EDT 3 mL phenylephrine in NS (Brayan-Synephrine) 100 mcg/mL prefilled syringe Intravenous, As needed, Starting on [place] 03/25/25 at 1717, Until [place] 03/25/25 at 1734, Routine, Anesthesia Intraprocedure Given 03/25/2025 5:17 PM EDT 300 mcg propofol (Diprivan) injection Intravenous, As needed, Starting on [place] 03/25/25 at 1712, Until [place] 03/25/25 at 1734, Routine, Anesthesia Intraprocedure Given 03/25/2025 5:15 PM EDT 50 mg Given 03/25/2025 5:13 PM EDT 50 mg Given 03/25/2025 5:12 PM EDT 50 mg documented in this encounter Additional Health Concerns Active Problems Noted Date Diagnosed Date Autogenerated Problem 03/25/2025 Assessment Noted Time A Body Mass Index follow-up plan has been documented for the patient 03/31/2025 9:36 AM EDT documented as of this encounter Care Teams Roustabout Crew Relationship Specialty Start Date End Date Kiera Castro APRN [address] [place] [address] PCP - General 02/17/25 documented as of this encounter
--- OUTSIDE RECORDS SUMMARY | 2025-05-13 13:38 | XMS_ITS ---
Author Organization Healthcare Address [address] [place] [address] Care Team Providers Care Chimney Builder Brick Name Role Phone Kiera Castro APRN Primary Care Provider [phone] Transitional Care Management Status:Closed (Closed) Start date:04/01/2025 Enrollment date:04/06/2025 Enrollment reason:Identified using hospital discharge data End date:05/01/2025 Close reason:Patient graduated Overview This episode type is for outpatient care managers enrolling patients in the [facility] Transitional Care Management program. Continued Care and Services Coordination
--- OUTSIDE RECORDS SUMMARY | 2025-05-13 13:39 | XMS_ITS | Encounter Summary ---
Author Organization Healthcare Address [address] [place] [address] Care Team Providers Care Elementary Assistant Principal Name Role Phone Kiera Castro APRN Primary Care Provider [phone] Encounter Details Date Type Department Care Team (Late st Contact Info) Description 05/04/2025 Telephone [facility] [address], [address] [place] [address] Lata Sahu MD [address] [place] [address] Social History Tobacco Use Types Packs/Day Years [...] any time in the past 12 m [facility], were you homeless or living in [...] as of this encounter Miscellaneous Notes * Telephone Encounter - Vicky Davila - 05/04/2025 4:09 PM EDT Called and voicemail box was full, also mailed letter to address provided in chart documented in this encounter Plan of Treatment Upcoming Encounters Date Type Department Care Team (Late st Contact Info) Description 08/03/2025 12:40 PM EDT Office Visit [facility] [place] [address] [place] [address] Dimitrios Wright MD [address] [place] [phone] documented as of this encounter Goals Goal [...] documented as of this encounter Care Teams Elementary Assistant Principal Relationship Specialty Start Date End Date Kiera Castro, CALL CENTER RN [address] [place] [address] PCP - General 02/17/25 documented as of this encounter
--- OUTSIDE RECORDS SUMMARY | 2025-05-13 13:41 | XMS_ITS | Encounter Summary ---
Author Organization Healthcare Address [address] [place] [address] Care Team Providers Care Car Ferrier Name Role Phone Kiera Castro APRN Primary Care Provider [phone] Lucero Stafford LPN Unavailable Unavailable Reason for Visit * Reason Comments TCM Call Encounter Details Date Type Department Care Team (Late Contact Info) Description 04/01/2025 Patient Outreach [facility] [address], [address] [place] [address] Lucero Stafford LPN [employer] [place] [address] TCM Call Social History Tobacco Use Types [...] time in the past 12 m [facility], were you homeless or living in a halfway (including now)? No 03/27/2025 Utilities Answer Date Recorded In the past 12 months has th e [employer], gas, oil, or water company threatened to [...] dated 03/31/2025: Patient has been referred to [facility]; RNCMcontacted agency regarding plan for discharge to home today. Williams Rubin with [employer] confirms that documentation has been received, and [facility] has approved this in-home care. documented in this encounter Plan of Treatment Upcoming Encounters Date Type Department Care Team (Late st Contact Info) Description 08/03/2025 12:40 PM EDT Office Visit [facility] [place] [address] [place] [address] Dimitrios Wright MD [address] [place] [address] documented as of this encounter Goals Goal [...] documented as of this encounter Care Teams Car Ferrier Relationship Specialty Start Date End Date Kiera Castro APRN [address] [place] [address] PCP - General 02/17/25 Lucero Stafford LPN [employer] [place] [address] TCM Nurse 04/01/25 05/01/25 documented as of this encounter
--- OUTSIDE RECORDS SUMMARY | 2025-05-13 13:41 | XMS_ITS | Clinical Summary ---
Author Organization Healthcare Address [address] [place] [address] Care Team Providers Care Shipping Weigher Name Role Phone Kiera Castor APRN Primary Care Provider [phone] Allergies No known active allergies Medications famotidine [...] nostril if symptoms continue 1 each 03/02/20 25 Active Tiotropium [place] Monohydrate (Spiriva Respimat) 2.5 MCG/ACT inhaler Inhale [...] a day. 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 2. 2 mm aneurysm or infundibulum at [...] HFmEF) 02/17/2025 Overview (02/22/2025): - Echo 02-15-25 [facility]: EF 45% - post-op EF 50% CAD, [...] Tobacco abuse disorder 02/16/2025 Overview (02/22/2025): - anger control counselor on smoking cessation Incomplete right bundle [...] stenosis 02/16/2025 03/02/2025 Overview (02/21/2025): Echo 02-15-25 [facility]: Moderate AI. Moderate (peak gradient velocity 3.2 m/s. Mean AV gradient 22 mmHg. Max gradient 40 mmHg. PETE 1.4 cm sq. 02/21: s/p 4vCABG and bioprosthetic AVR. Aortic valve intact with no significant AI on post TAYLOR. NSTEMI (non-ST elevated myoc ardial infarction) 02/16/2025 03/02/2025 Overview (02/21/2025): S/p 4vCABG on 02/21 Encounters Date Type Department Care Team Description 05/04/[address] [facility] Cardiothoracic [address], [address] [place] [address] Lata Sahu MD 04/08/2025 Patient Outreach POPULATION [address], [address] [place] [address] Lucero Stafford LPN Follow-up 04/06/2025 Patient Outreach [address], [address] [place] [address] Lucero Stafford LPN TCM Call 04/02/2025 Patient Outreach POPULATION [address], [address] [place] [address] Lucero Stafford LPN TCM Call 04/01/2025 Patient Outreach POPULATION [address], [address] [place] [address] Lucero Stafford LPN TCM Call 03/25/2025 5:04 PM EDT Anesthesia Event [facility] Endoscopy [address] [place] [address] Cristofer Delacruz MD Sparks, Starr N, BUCK 03/25/2025 3:17 AM EDT - 03/31/2025 12:30 PM EDT Hospital Encounter [facility] Inpatient [address] [place] [address] Naga Hidalgo MD Sagheer, Iqra, MD Khalid, MD Sandeep Paul Megan M, MD Acute GI bleeding (Primary Dx); Severe anemia; Generalized weakness; Upper GI bleeding; Persistent atrial fibrillation (CMS/HCC); Duodenal ulcer Discharge Disposition: Home-Health [place] [facility] 03/25/2025 Travel 03/17/2025 Travel 03/16/2025 Travel 03/15/2025 Travel 03/14/2025 Travel 03/13/2025 Travel 03/12/2025 3:36 AM EDT - 03/17/2025 2:43 PM EDT Hospital Encounter [facility] Inpatient [address] [place] [id number] Sloane Blake MD Reda, Hassan K, MD Gluteal abscess (Primary Dx); Chest pain, unspecified type; Elevated troponin; Persistent atrial fibrillation (CMS/HCC) Discharge Disposition: Home or Self Care 03/12/2025 Orders Only External Location [address] [place] [address] Provider, External 03/12/2025 Travel 03/03/2025 Telephone [facility]patient [address] [place] [address] Gia Mcneal 03/02/2025 Travel 03/01/2025 Travel 02/28/2025 Travel 02/27/2025 Travel 02/26/2025 Travel 02/25/2025 Travel 02/24/2025 Travel 02/23/2025 Travel 02/22/2025 Lab Requisition [facility] Lab [address] [place] [id number] Sohail Alex MD Encounter for general adult medical examination without abnormal findings 02/22/2025 Travel 02/21/2025 8:47 AM EDT Anesthesia Event [facility] OPERATING ROOM [address] [place] [address] Jolene Montes De Oca MD 02/21/2025 8:00 AM EDT - 02/21/2025 5:05 PM EDT Surgery [facility] O[facility]ATING RO[facility] [address] [place] [address] Lata Sahu MD CABG, 2 OR MORE VESSELS 02/21/2025 Travel 02/20/2025 11:26 AM EDT Anesthesia Event [facility] OPERATING ROOM [address] [place] [address] Robbie Rivera MD Lopez, Joshua A 02/19/2025 Travel 02/18/2025 Travel 02/17/2025 Travel 02/16/2025 7:16 PM EDT - 03/02/2025 2:41 PM EDT Hospital Encounter [facility] Inpatient [address] [place] [address] Gerardo Hinds MD Bacon, James D, MD Reda, Hassan K, MD CAD, multiple vessel (Primary Dx); Sinus bradycardia; Concentric left ventricular hypertrophy; Edentulous; NSTEMI (non-ST elevated myocardial infarction) ([facility]/HCC); Cervical radiculopathy; Tobacco abuse disorder; Hyperlipidemia, unspecified hyperlipidemia type; Hypocalcemia; Aortic valve insufficiency, etiology of cardiac valve disease unspecified; Situational depression; Obesity (BMI 30-39.9); Aortic valve stenosis, etiology of cardiac valve disease unspecified; Chronic obstructive pulmonary disease, unspecified COPD type (CMS/HCC); Anemia, unspecified type; Heart failure with mid-range ejection fraction (HFmEF) ([facility]); Gastroesophageal reflux disease, unspecified whether esophagitis present; [...] 02/16/2025 Travel 02/15/2025 Orders Only External Location [address] [place] [address] Provider, External 02/15/2025 Orders Only External Location [address] [place] [address] Provider, External 02/15/2025 Orders Only External Location [address] [place] [address] Provider, External 02/15/2025 Orders Only External Location [address] [place] [address] Ysabel Christopher, YEAST CULTURE DEVELOPER 02/13/2025 Orders Only External Location [address] [place] [address] Alexia Nelson, YEAST CULTURE DEVELOPER 02/13/2025 Orders Only External Location [address] [place] [address] Provider, External from Last 3 [...] any time in the past 12 m the rehabilitation institute, were you homeless or living in a halfway (including now)? No 04/06/2025 Utilities Answer Date [...] Description 08/03/2025 12:40 PM EDT Office Visit [facility] [address] [place] [address] Dimitrios Wrgiht MD [address] [place] [address] Health Maintenance Due Date Last Done Comments [...] 2008 [facility]-Abdominal Aortic Aneurysm (AAA) Screening 2023 [id number] Vaccine ( season) 2024 04/26/2021, 03/29/2021 [facility]-Influenza Vaccine (#1) 2025 [facility]- SDOH Screenings 09/27/2025 [facility]-Adult SDOH [...] Moeller, RN Medical Devices Implanted Type Area Shoe Stitcher Device Identifier Shelf Expiration Date Model / Serial / Lot Valve Aortic Inspiris Resilia 29mm - [id number] - [id number] Implanted:Qty: 1 on 02/21/2025 by Lata Sahu MD at [id number] 09/22/2029 [id number] / [id number] / [id number] Description:We do not rinse Inspirus Valves. Pledget Ptfe Ruth 4.8mm X 6mm - [id number] Implanted:02/21 by Lata Sahu MD at [facility] (Quantity not on file) [id number] / / Pledget Ptfe Ruth 4.8mm X 6mm - [id number] Implanted:02/21 by Lata Sahu MD at [facility] (Quantity not on file) [id number] / / Procedures Procedure Name Priority Date/Time [...] 12:42 PM EDT Persistent atrial fibrillation (CMS/HCC) [place] CARDIOVERSION, ELECTIVE;PRESENTATION MANAGER Routine 03/16/2025 12:42 PM EDT Persistent atrial [...] GRAM STAIN Routine 03/12/2025 6:52 AM EDT [place] DRAIN SKIN ABSCESS COMPLIC Routine 03/12/2025 5:54 [...] PEP THERAPY Routine 02/25/2025 3:43 PM EDT [place] CRITICAL CARE, E/M 30-74 MINUTES Routine 02/25/2025 [...] PEP THERAPY Routine 02/24/2025 3:42 PM EDT [place] CRITICAL CARE, E/M 30-74 MINUTES Routine 02/24/2025 [...] W/O DIFFERENTIAL Routine 02/23/2025 2:11 PM EDT [place] CRITICAL CARE, E/M 30-74 MINUTES Routine 02/23/2025 [...] PANEL, ARTERIAL Timed 02/22/2025 8:25 AM EDT [place] CRITICAL CARE, ADDL 30 MIN Routine 02/22/2025 [...] - ADULT Routine 02/21/2025 11:46 PM EDT [place] CRITICAL CARE, E/M 30-74 MINUTES Routine 02/21/2025 [...] hypertrophy Edentulous NSTEMI (non-ST elevated myocardial infarction) ([facility]/HCC) Cervical radiculopathy Tobacco abuse disorder Hyperlipidemia, unspecified hyperlipidemia type Hypocalcemia Aortic valve insufficiency, etiology of cardiac valve disease unspecified Situational depression Obesity (BMI 30-39.9) Aortic valve stenosis, etiology of cardiac valve disease unspecified Chronic obstructive pulmonary disease, unspecified COPD type ([facility]/HCC) CAD, multiple vessel Anemia, unspecified type Heart failure with mid-range ejection fraction (HFmEF) ([facility]/HCC) Gastroesophageal reflux disease, unspecified whether esophagitis present [...] hypertrophy Edentulous NSTEMI (non-ST elevated myocardial infarction) ([facility]/HCC) Cervical radiculopathy Tobacco abuse disorder Hyperlipidemia, unspecified hyperlipidemia type Hypocalcemia Aortic valve insufficiency, etiology of cardiac valve disease unspecified Situational depression Obesity (BMI 30-39.9) Aortic valve stenosis, etiology of cardiac valve disease unspecified Chronic obstructive pulmonary disease, unspecified COPD type (CMS/HCC) CAD, multiple vessel Anemia, unspecified type Heart failure with mid-range ejection fraction (HFmEF) ([facility]/HCC) Gastroesophageal reflux disease, unspecified whether esophagitis present Benign prostatic hyperplasia, unspecified whether lower urinary tract symptoms present Incomplete right bundle branch block Primary hypertension FIBRINOGEN,QUANTITATI VE (CLOTTABLE) STAT 02/21/2025 9:02 PM EDT Sinus bradycardia Concentric left ventricular hypertrophy Edentulous NSTEMI (non-ST elevated myocardial infarction) ([facility]/HCC) Cervical radiculopathy Tobacco abuse disorder Hyperlipidemia, unspecified hyperlipidemia type Hypocalcemia Aortic valve insufficiency, etiology of cardiac valve disease unspecified Situational depression Obesity (BMI 30-39.9) Aortic valve stenosis, etiology of cardiac valve disease unspecified Chronic obstructive pulmonary disease, unspecified COPD type (CMS/HCC) CAD, multiple vessel Anemia, unspecified type Heart failure with mid-range ejection fraction (HFmEF) ([facility]/HCC) Gastroesophageal reflux disease, unspecified whether esophagitis present Benign prostatic hyperplasia, unspecified whether lower urinary tract symptoms present Incomplete right bundle branch block Primary hypertension PLATELET COUNT, BLOOD STAT 02/21/2025 9:02 PM EDT Sinus bradycardia Concentric left ventricular hypertrophy Edentulous NSTEMI (non-ST elevated myocardial infarction) ([facility]/HCC) Cervical radiculopathy Tobacco abuse disorder Hyperlipidemia, unspecified hyperlipidemia type Hypocalcemia Aortic valve insufficiency, etiology of cardiac valve disease unspecified Situational depression Obesity (BMI 30-39.9) Aortic valve stenosis, etiology of cardiac valve disease unspecified Chronic obstructive pulmonary disease, unspecified COPD type ([facility]) CAD, multiple vessel Anemia, unspecified type Heart failure with mid-range ejection fraction (HFmEF) ([facility] Gastroesophageal reflux disease, unspecified whether esophagitis present [...] hypertrophy Edentulous NSTEMI (non-ST elevated myocardial infarction) ([facility]) Cervical radiculopathy Tobacco abuse disorder Hyperlipidemia, unspecified hyperlipidemia type Hypocalcemia Aortic valve insufficiency, etiology of cardiac valve disease unspecified Situational depression Obesity (BMI 30-39.9) Aortic valve stenosis, etiology of cardiac valve disease unspecified Chronic obstructive pulmonary disease, unspecified COPD type ([facility]) CAD, multiple vessel Anemia, unspecified type Heart failure with mid-range ejection fraction (HFmEF) ([facility]) Gastroesophageal reflux disease, unspecified whether esophagitis present [...] Heart failure with mid-range ejection fraction (HFmEF) ([facility]/HCC) Gastroesophageal reflux disease, unspecified whether esophagitis present [...] hypertrophy Edentulous NSTEMI (non-ST elevated myocardial infarction) ([facility]) Cervical radiculopathy Tobacco abuse disorder Hyperlipidemia, unspecified hyperlipidemia type Hypocalcemia Aortic valve insufficiency, etiology of cardiac valve disease unspecified Situational depression Obesity (BMI 30-39.9) Aortic valve stenosis, etiology of cardiac valve disease unspecified Chronic obstructive pulmonary disease, unspecified COPD type ([facility]) CAD, multiple vessel Anemia, unspecified type Heart failure with mid-range ejection fraction (HFmEF) ([facility]) Gastroesophageal reflux disease, unspecified whether esophagitis present [...] UNSOLICITED RESULTS Routine 02/21/2025 10:49 AM EDT [place] INSERT/PLACE FLOW DIRECT CATH Routine 02/21/2025 9:35 AM EDT ANESTHESIA ULTRASOUND GUIDED Routine 02/21/2025 9:35 AM EDT PB ANESTHESIA NON-TIMED PROCEDURE PLACEHOLDER Routine 02/21/2025 9:35 AM EDT [place] AN CENTRAL LINE TRIPLE LUMEN Routine 02/21/2025 9:35 AM EDT PB ANESTHESIA NON-TIMED PROCEDURE PLACEHOLDER Routine 02/21/2025 9:35 AM EDT PB ANESTHESIA PLACEHOLDER Routine 02/21/2025 9:10 AM EDT [place] AN ELECTIVE ENDOTRACHEAL AIRWAY Routine 02/21/2025 9:10 [...] of8 resultswithin the time period is included. [facility] WBC Count 5.55 3.70 - 10.30 10*3/uL LAB HEMATOLOGY METHOD 03/31/2025 4:41 AM EDT [facility] RBC Count 2.57(L) 4.60 - 6.10 10*6/uL LAB HEMATOLOGY METHOD 03/31/2025 4:41 AM EDT [facility] HGB 7.6(L) 13.7 - 17.5 g/dL LAB HEMATOLOGY METHOD 03/31/2025 4:41 AM EDT [facility] HCT 24.7(L) 40.0 - 51.0 % LAB HEMATOLOGY METHOD 03/31/2025 4:41 AM EDT [facility] Platelet Count 218 155 - 369 10*3/uL LAB HEMATOLOGY METHOD 03/31/2025 4:41 AM EDT [facility] MCV 96 79 - 98 fL LAB HEMATOLOGY METHOD 03/31/2025 4:41 AM EDT [facility] MCH 29.6 26.0 - 32.0 pg LAB HEMATOLOGY METHOD 03/31/2025 4:41 AM EDT [facility] MCHC 30.8 30.7 - 35.5 g/dL LAB HEMATOLOGY METHOD 03/31/2025 4:41 AM EDT [facility] RDW 19.1(H) 11.5 - 14.5 % LAB HEMATOLOGY METHOD 03/31/2025 4:41 AM EDT [facility] MPV 10.4 8.8 - 12.5 fL LAB HEMATOLOGY METHOD 03/31/2025 4:41 AM EDT [facility] nRBC 0.0 <=0.0 per 100 WBCs LAB HEMATOLOGY METHOD 03/31/2025 4:41 AM EDT [facility] Differential Type Automated LAB HEMATOLOGY METHOD 03/31/2025 4:41 AM EDT [facility] Neutrophils % 43 % LAB HEMATOLOGY METHOD 03/31/2025 4:41 AM EDT [facility] Lymphocytes % 46 % LAB HEMATOLOGY METHOD 03/31/2025 4:41 AM EDT [facility] Monocytes % 6 % LAB HEMATOLOGY METHOD 03/31/2025 4:41 AM EDT [facility] Eosinophils % 3 % LAB HEMATOLOGY METHOD 03/31/2025 4:41 AM EDT [facility] Basophils % 1 % LAB HEMATOLOGY METHOD 03/31/2025 4:41 AM EDT [facility] Immature Granulocytes % 1 % LAB HEMATOLOGY METHOD 03/31/2025 4:41 AM EDT [facility] Neutrophils Absolute 2.41 1.60 - 6.10 10*3/uL LAB HEMATOLOGY METHOD 03/31/2025 4:41 AM EDT [facility] Lymphocytes Absolute 2.53 1.20 - 3.90 10*3/uL LAB HEMATOLOGY METHOD 03/31/2025 4:41 AM EDT [facility] Monocytes Absolute 0.33 0.30 - 0.90 10*3/uL LAB HEMATOLOGY METHOD 03/31/2025 4:41 AM EDT [facility] Eosinophils Absolute 0.17 0.00 - 0.50 10*3/uL LAB HEMATOLOGY METHOD 03/31/2025 4:41 AM EDT [facility] Basophils Absolute 0.05 0.00 - 0.10 10*3/uL LAB HEMATOLOGY METHOD 03/31/2025 4:41 AM EDT [facility] Immature Granulocytes Absolute 0.06 0.00 - 0.06 10*3/uL LAB HEMATOLOGY METHOD 03/31/2025 4:41 AM EDT [facility] Blood Venous blood specimen / Unknown Venipuncture / Unknown 03/31/2025 4:17 AM EDT 03/31/2025 4:29 AM EDT [facility] - 03/31/2025 4:41 AM EDT Therapeutic decision making should be based on absolute values, rather than percentages. Yin Christopher MD LAB BLOOD ORDERABLES Fi nal Result [facility] [address] [place] [address] * (ABNORMAL) Magnesium, Plasma (03/31/2025 4:17 AM EDT) Only the most recent of27 resultswithin the time period is included. Magnesium, Plasma 1.7(L) 1.9 - 2.4 mg/dL 03/31/2025 4:57 AM EDT [facility] Blood Venous blood specimen / Unknown Venipuncture / Unknown 03/31/2025 4:17 AM EDT 03/31/2025 4:27 AM EDT Yin Christopher MD LAB BLOOD ORDERABLES Fi nal Result [facility] [address] [place] [address] * (ABNORMAL) Comprehensive Metabolic Panel, Plasma (03/31/2025 4:17 AM EDT) Only the most recent of13 resultswithin the time period is included. Glucose, Plasma 125(H) 74 - 99 mg/dL 03/31/2025 4:57 AM EDT [facility] BUN, Plasma 28(H) 8 - 23 mg/dL 03/31/2025 4:57 AM EDT [facility] Creatinine, Plasma 0.72 0.70 - 1.20 mg/dL 03/31/2025 4:57 AM EDT [facility] BUN/Creatinine Ratio 39 03/31/2025 4:57 AM EDT [facility] Sodium, Plasma 136 136 - 145 mmol/L 03/31/2025 4:57 AM EDT [facility] Potassium, Plasma 4.1 3.6 - 4.9 mmol/L 03/31/2025 4:57 AM EDT [facility] Chloride, Plasma 106 97 - 107 mmol/L 03/31/2025 4:57 AM EDT [facility] CO2, Plasma 22 22 - 29 mmol/L 03/31/2025 4:57 AM EDT [facility] Anion Gap 8 6 - 16 mmol/L 03/31/2025 4:57 AM EDT [facility] Total Calcium, Plasma 8.1(L) 8.9 - 10.2 mg/dL 03/31/2025 4:57 AM EDT [facility] Total Protein 5.0(L) 6.3 - 7.9 g/dL 03/31/2025 4:57 AM EDT [facility] Albumin, Plasma 2.8(L) 3.5 - 5.2 g/dL 03/31/2025 4:57 AM EDT [facility] AST, Plasma 24 10 - 50 U/L 03/31/2025 4:57 AM EDT [facility] ALT, Plasma 14 10 - 50 U/L 03/31/2025 4:57 AM EDT [facility] Alkaline Phosphatase, Plasma 106 40 - 115 U/L 03/31/2025 4:57 AM EDT [facility] Total Bilirubin, Plasma 0.3 0.2 - 1.1 mg/dL 03/31/2025 4:57 AM EDT [facility] eGFRcr 100.8 mL/min/1.7 3m*2 03/31/2025 4:57 AM EDT [facility] Comment:Reported eGFRcr in m L/min/1.73m2 is based the CKD-EPI 2020 equation that does not use a race coefficient. Blood Venous blood specimen / Unknown Venipuncture / Unknown 03/31/2025 4:17 AM EDT 03/31/2025 4:27 AM EDT Yin Christopher MD LAB BLOOD ORDERABLES Fi nal Result [facility] [address] [place] [address] * Phosphorus, Plasma (03/30/2025 4:52 AM EDT) Only the most recent of10 resultswithin the time period is included. Phosphorus, Plasma 3.3 2.5 - 4.5 mg/dL 03/30/2025 5:36 AM EDT [facility] Blood Venous blood specimen / Unknown Venipuncture / Unknown 03/30/2025 4:52 AM EDT 03/30/2025 5:04 AM EDT Yin Christopher MD LAB BLOOD ORDERABLES Fi nal Result Performing Organization Address City/[facility]/ZIP Co de Phone Number [facility] [address] [place] [address] * Transfuse RBC (03/29/2025 12:59 PM EDT) Only the most recent of11 resultswithin the time period is included. Yin Christopher MD BLOOD TRANSFUSION ORDER CASTILLO Final Result * Prepare Leukocyte Reduced RBC: 1 Units (03/29/2025 8:37 AM EDT) Only the most recent of7 resultswithin the time period is included. Product Code [id number] CH BLOO D BANK Dispense Status Transfused BLOOD BANK Blood Expiration Date [id number] BLOOD BANK Unit Number [id number] B LOOD BANK Product Blood Type 5100 BLOOD BANK Blood Type O+ BLOOD BANK Crossmatch Compatible BLOOD BANK Other Yin Christopher MD BLOOD BANK PRODUCT ORDE RABLES Final Result Performing Organization Address City/[facility] Co de Phone Number BLOOD BANK [address] [place] [address], * Type and screen (03/29/2025 6:05 AM [...] ORDERA BLES Final Result Performing Organization Address City/[facility]/ZIP Co de Phone Number BLOOD BANK [address] [place], [place] [address] * (ABNORMAL) Occult Blood, Fecal by Immunoassay (SO) (03/28/2025 4:18 PM EDT) Occult Blood, Fecal Immunosay Interpretation Positive( A) 03/31/2025 10:15 AM EDT [facility] ([email or web address]) Stool Non-blood Collection / Unknown 03/28/2025 4:18 PM EDT 03/28/2025 4:27 PM EDT Narrative [facility] MD [employer]) - 03/31/2025 10:15 AM EDT INTERPRETIVE INFORMATION: Fecal Occult Blood by Immunoassay No single cutoff provides superior colorectal cancer detection rates. The test snap shearer recommends the use of a 100 ng/mL cutoff that produces a specificity of approximately 95 percent for the detection of lower gastrointestinal bleeding. This test does not detect upper gastrointestinal bleeding. Performed By: [facility] [address] [place] [address] Furnace Tender: Wilfrid Carr MD, PhD CLIA Number: [id number] Ramez Ma APRN, JESSE LAB REF LAB BLOOD AND FLUID ORD Final Result Performing Organization Address [facility] Co de Phone Number [facility] [employer]) [address] [place] [address] * Helicobacter pylori Antigen (03/28/2025 4:18 PM EDT) Helicobacter pylori Antigen Result Negative Negative 03/28/2025 5:39 PM EDT [facility] Stool Rectum structure / Unknown Non-blood Collection / Unknown 03/28/2025 4:18 PM EDT 03/28/2025 4:33 PM EDT Yin Christopher MD LAB MICROBIOLOGY - GENE RAL ORDERABLES Final Result [facility] [address] [place] [address] * (ABNORMAL) CBC W/O Differential (03/28/2025 12:15 PM EDT) Only the most recent of25 resultswithin the time period is included. WBC Count 6.21 3.70 - 10.30 10*3/uL LAB HEMATOLOGY METHOD 03/28/2025 12:29 PM EDT [facility] RBC Count 2.38(L) 4.60 - 6.10 10*6/uL LAB HEMATOLOGY METHOD 03/28/2025 12:29 PM EDT [facility] HGB 7.0(L) 13.7 - 17.5 g/dL LAB HEMATOLOGY METHOD 03/28/2025 12:29 PM EDT [facility] HCT 22.6(L) 40.0 - 51.0 % LAB HEMATOLOGY METHOD 03/28/2025 12:29 PM EDT [facility] Platelet Count 215 155 - 369 10*3/uL LAB HEMATOLOGY METHOD 03/28/2025 12:29 PM EDT [facility] MCV 95 79 - 98 fL LAB HEMATOLOGY METHOD 03/28/2025 12:29 PM EDT [facility] MCH 29.4 26.0 - 32.0 pg LAB HEMATOLOGY METHOD 03/28/2025 12:29 PM EDT [facility] MCHC 31.0 30.7 - 35.5 g/dL LAB HEMATOLOGY METHOD 03/28/2025 12:29 PM EDT [facility] RDW 21.1(H) 11.5 - 14.5 % LAB HEMATOLOGY METHOD 03/28/2025 12:29 PM EDT [facility] MPV 10.3 8.8 - 12.5 fL LAB HEMATOLOGY METHOD 03/28/2025 12:29 PM EDT [facility] nRBC 0.0 <=0.0 per 100 WBCs LAB HEMATOLOGY METHOD 03/28/2025 12:29 PM EDT [facility] Blood Venous blood specimen / Unknown Venipuncture / Unknown 03/28/2025 12:15 PM EDT 03/28/2025 12:22 PM EDT Yin Christopher MD LAB BLOOD ORDERABLES Fi nal Result Performing Organization Address City/[facility]/ZIP Co de Phone Number [facility] [address] [place] [address] * (ABNORMAL) Hemoglobin and Hematocrit, Blood (03/28/2025 12:32 AM EDT) Only the most recent of14 resultswithin the time period is included. HGB 7.1(L) 13.7 - 17.5 g/dL LAB HEMATOLOGY METHOD 03/28/2025 1:01 AM EDT [facility] HCT 22.7(L) 40.0 - 51.0 % LAB HEMATOLOGY METHOD 03/28/2025 1:01 AM EDT [facility] Blood Venous blood specimen / Unknown Venipuncture / Unknown 03/28/2025 12:32 AM EDT 03/28/2025 12:45 AM EDT Ramez Ma APRN, DNP LAB BLOOD ORDERAB LES Final Result Performing Organization Address [facility] [facility] Co de Phone Number [facility] [address] [place] [address] * (ABNORMAL) Basic metabolic panel (03/26/2025 12:17 AM EDT) Only the most recent of11 resultswithin the time period is included. Glucose, Plasma 99 74 - 99 mg/dL 03/26/2025 12:54 AM EDT [facility] BUN, Plasma 24(H) 8 - 23 mg/dL 03/26/2025 12:54 AM EDT [facility] Creatinine, Plasma 0.75 0.70 - 1.20 mg/dL 03/26/2025 12:54 AM EDT [facility] BUN/Creatinine Ratio 32 03/26/2025 12:54 AM EDT [facility] Sodium, Plasma 137 136 - 145 mmol/L 03/26/2025 12:54 AM EDT [facility] Potassium, Plasma 4.1 3.6 - 4.9 mmol/L 03/26/2025 12:54 AM EDT [facility] Chloride, Plasma 107 97 - 107 mmol/L 03/26/2025 12:54 AM EDT [facility] CO2, Plasma 19(L) 22 - 29 mmol/L 03/26/2025 12:54 AM EDT [facility] Anion Gap 11 6 - 16 mmol/L 03/26/2025 12:54 AM EDT [facility] Total Calcium, Plasma 7.9(L) 8.9 - 10.2 mg/dL 03/26/2025 12:54 AM EDT [facility] eGFRcr 99.5 mL/min/1.7 3m*2 03/26/2025 12:54 AM EDT [facility] Comment:Reported eGFRcr in m L/min/1.73m2 is based the CKD-EPI 2020 equation that does not use a race coefficient. Blood Venous blood specimen / Unknown Venipuncture / Unknown 03/26/2025 12:17 AM EDT 03/26/2025 12:26 AM EDT us Ramez Ma APRN, DNP LAB BLOOD ORDERAB LES Final Result [facility] [address] [place] [address] * EGD MEAGAN AGGARWAL; 03/25/2025 (03/25/2025 5:22 [...] abdominal pain, fever, gastrointestinal bleeding and call ship construction teacher GI if present. - Findings and recommendations were discussed with patient. - Findings and recommendations to be conveyed to primary team. Indication Acute GI bleeding Medications See anesthesia record for anesthesia administered medications. Staff Staff Role Elbert Monreal CRNA CRNA Hansberry, Jolynn Endo Tree Worker Betsy Ellis RN Endo Nurse Meagan Aggarwal [...] 74(H) <19 ng/L 03/25/2025 9:14 AM EDT [facility] Troponin Delta 3 <10 ng/L 03/25/2025 9:14 AM EDT [facility] Troponin Delta Interpretation Not Significant 03/25/2025 9:14 AM EDT [facility] Comment:Not Significant. No acute change in troponin observed between the baseline and 2 hour samples. Blood Venous blood specimen / Unknown Venipuncture / Unknown 03/25/2025 8:28 AM EDT 03/25/2025 8:44 AM EDT us Ramezluz Ma APRN, DNP LAB BLOOD ORDERAB LES Final Result Performing Organization Address [facility] Co de Phone Number [facility] [address] [place] [address] * (ABNORMAL) Troponin T, High Sensitivity, 0 Hour Plasma, Reflex to 2 Hour (03/25/2025 6:23 AM EDT) Only the most recent of4 resultswithin the time period is included. Troponin T, High Sensitivity, 0 Hour 77(H) <19 ng/L 03/25/2025 6:58 AM EDT [facility] Blood Venous blood specimen / Unknown Venipuncture / Unknown 03/25/2025 6:23 AM EDT 03/25/2025 6:29 AM EDT us Ramezluz Ma APRN, JESSE LAB BLOOD ORDERAB LES Final Result Performing Organization Address [facility] de Phone Number [facility] [address] [place] [address] * Lactate, venous (03/25/2025 6:23 AM EDT) Lactate, Venous, Whole Blood 0.8 0.5 - 2.2 mmol/L LAB HEMATOLOGY METHOD 03/25/2025 6:28 AM EDT [facility] Blood Venous blood specimen / Unknown Venipuncture / Unknown 03/25/2025 6:23 AM EDT 03/25/2025 6:27 AM EDT us Ramezluz Ma APRN, DNP LAB BLOOD ORDERAB LES Final Result Performing Organization Address City/[facility] Co de Phone Number [facility] [address] [place] [address] * Haptoglobin (03/25/2025 6:23 AM EDT) Haptoglobin, Serum 167 40 - 219 mg/dL 03/25/2025 6:59 AM EDT [facility] Blood Venous blood specimen / Unknown Venipuncture / Unknown 03/25/2025 6:23 AM EDT 03/25/2025 6:29 AM EDT us Ramez N Aylabetamanna YEAST CULTURE DEVELOPER, DNP LAB BLOOD ORDERAB LES Final Result [facility] [address] [place] [address] * (ABNORMAL) Iron & Total Iron Binding Capacity, Plasma (Includes Transferrin) (03/25/2025 3:36 AM EDT) Only the most recent of2 resultswithin the time period is included. Iron, Plasma 81 50 - 170 ug/dL 03/25/2025 6:04 AM EDT [facility] Transferrin, Plasma 195(L) 200 - 360 mg/dL 03/25/2025 6:04 AM EDT [facility] Total Iron Binding Capacity, Plasma 244 240 - 450 ug/mL 03/25/2025 6:04 AM EDT [facility] Transferrin Saturation 33 14 - 50 % 03/25/2025 6:04 AM EDT [facility] Blood Venous blood specimen / Unknown Venipuncture / Unknown 03/25/2025 3:36 AM EDT 03/25/2025 3:50 AM EDT us Ramez N Bostonujibeya YEAST CULTURE DEVELOPER, DNP LAB BLOOD ORDERAB LES Final Result [facility] [address] [place] [address] * C-reactive protein (03/25/2025 3:36 AM EDT) Only the most recent of3 resultswithin the time period is included. CRP, Plasma 6.3 <=8.0 mg/L 03/25/2025 6:04 AM EDT [facility] Blood Venous blood specimen / Unknown Venipuncture / Unknown 03/25/2025 3:36 AM EDT 03/25/2025 3:50 AM EDT Narrative [facility] - 03/25/2025 6:04 AM EDT This CRP test is appropriate for assessment of infection, systemic inflammation and/or tissue injury. To assess cardiovascular disease risk order high sensitivity CRP (CRPH). us Ramez Ma APRN, JESSE LAB BLOOD ORDERAB LES Final Result [facility] [address] [place] [address] * (ABNORMAL) Hepatic function panel (03/25/2025 3:36 AM EDT) Only the most recent of2 resultswithin the time period is included. Conjugated Bilirubin, Plasma 0.5(H) <=0.3 mg/dL 03/25/2025 4:22 AM EDT [facility] Alkaline Phosphatase, Plasma 74 40 - 115 U/L 03/25/2025 4:22 AM EDT [facility] Total Bilirubin, Plasma 1.0 0.2 - 1.1 mg/dL 03/25/2025 4:22 AM EDT [facility] Albumin, Plasma 2.7(L) 3.5 - 5.2 g/dL 03/25/2025 4:22 AM EDT [facility] Total Protein 5.1(L) 6.3 - 7.9 g/dL 03/25/2025 4:22 AM EDT [facility] ALT, Plasma 21 10 - 50 U/L 03/25/2025 4:22 AM EDT [facility] AST, Plasma 26 10 - 50 U/L 03/25/2025 4:22 AM EDT [facility] Blood Venous blood specimen / Unknown Venipuncture / Unknown 03/25/2025 3:36 AM EDT 03/25/2025 3:50 AM EDT us Naga Hidalgo MD LAB BLOOD ORDERABLES Final Re sult [facility] [address] [place] [address] * ECG Adult (03/25/2025 3:31 AM EDT) Only the most recent of6 resultswithin the time period is included. EKG DIAGNOSIS CLASS Abnormal MUSE ECG Ventricular Rate 62 BPM MUSE ECG Atrial Rate 62 BPM MUSE ECG [place] Interval 182 ms MUSE ECG QRSD Interval 94 ms MUSE ECG QT Interval 450 ms MUSE ECG QTC Interval 456 ms MUSE ECG P [place] 69 degrees MUSE ECG R [place] 42 degrees MUSE ECG T Wave [place] 138 degrees MUSE ECG Diagnosis Normal sinus [...] ECG ORDERABLES Final Result Performing Organization Address City/[facility] Co de Phone Number MUSE ECG * Procalcitonin (03/25/2025 3:29 AM EDT) Only the most recent of2 resultswithin the time period is included. Procalcitonin, Plasma 0.08 <0.09 ng/mL 03/25/2025 6:09 AM EDT [facility] Blood Venous blood specimen / Unknown Venipuncture / Unknown 03/25/2025 3:29 AM EDT 03/25/2025 3:50 AM EDT Narrative [facility] - 03/25/2025 6:09 AM EDT [...] predict 28 day mortality risk. Please consult [email or web address] for more information. Test performed at [facility]. us Ramez Jenny Ma APRN, DNP LAB BLOOD ORDERAB LES Final Result Performing Organization Address City/[facility]/[place] [address] * (ABNORMAL) N-Terminal Probnp (03/25/2025 3:29 AM EDT) Only the most recent of6 resultswithin the time period is included. N-Terminal, PROBNP, Plasma 1,495(H) 0 - 899 pg/mL 03/25/2025 6:09 AM EDT [facility] Blood Venous blood specimen / Unknown Venipuncture / Unknown 03/25/2025 3:29 AM EDT 03/25/2025 3:50 AM EDT us Ramez N Anil SPANN, DNP LAB BLOOD ORDERAB LES Final Result Performing Organization Address City/[facility] [place] [place] [address] * (ABNORMAL) PT-INR (03/25/2025 3:29 AM EDT) Only the most recent of4 resultswithin the time period is included. Prothrombin Time 20.1(H) 12.0 - 14.3 sec 03/25/2025 3:47 AM EDT [facility] INR 1.7(H) 0.9 - 1.1 03/25/2025 3:47 AM EDT [facility] Blood Venous blood specimen / Unknown Venipuncture / Unknown 03/25/2025 3:29 AM EDT 03/25/2025 3:32 AM EDT Narrative [facility] - 03/25/2025 3:47 AM EDT OPTIMAL INR RANGES FOR PATIENT ON ORAL ANTICOAGULANT THERAPY Prevention of venous thromboembolism INR 2.0 to 3.0 In patients with heart disease: Atrial fibrillation INR 2.0 to 3.0 Valvular heart disease INR 2.0 to 3.0 Tissue heart valves INR 2.0 to 3.0 Mechanical prosthetic valves INR 2.5 to 3.5 Prevention of recurrent IN INR 2.5 to 3.5 us Naga Hidalgo MD LAB BLOOD ORDERABLES Final Re sult Performing Organization Address City/[facility]/ZIP Co de Phone Number [facility] [address] [place] [address] * (ABNORMAL) Reticulocytes (03/25/2025 3:29 AM EDT) Reticulocyte Absolute 214.2(H) 40.0 - 110.0 10*3/uL LAB HEMATOLOGY METHOD 03/25/2025 5:46 AM EDT [facility] Immature Reticulocyte Fraction 43.1(H) 3.1 - 17.6 % LAB HEMATOLOGY METHOD 03/25/2025 5:46 AM EDT [facility] Reticulocyte Hemoglobin 29.9 28 - 38 pg LAB HEMATOLOGY METHOD 03/25/2025 5:46 AM EDT [facility] Reticulocyte Count 8.50(H) 0.90 - 2.50 % LAB HEMATOLOGY METHOD 03/25/2025 5:46 AM EDT [facility] Blood Venous blood specimen / Unknown Venipuncture / Unknown 03/25/2025 3:29 AM EDT 03/25/2025 3:32 AM EDT us Ramez Ma APRN, DNP LAB BLOOD ORDERAB LES Final Result Performing Organization Address City/[facility]/ZIP Co de Phone Number [facility] [address] [place] [address] * Lactate dehydrogenase (03/25/2025 3:29 AM EDT) LDH, Plasma 236 116 - 250 U/L 03/25/2025 6:09 AM EDT [facility] Blood Venous blood specimen / Unknown Venipuncture / Unknown 03/25/2025 3:29 AM EDT 03/25/2025 3:50 AM EDT Ramez Jenny Valadeztamanna YEAST CULTURE DEVELOPER, DNP LAB BLOOD ORDERAB LES Final Result [facility] [address] [place] [address] * XR Chest 1 View (03/17/2025 5:20 [...] Dinah Parker MD on 03/17/2025 7:38 AM us Marily Nazia Garcia YEAST CULTURE DEVELOPER IMG XR PROCEDURES Final Resu lt * [place] CARDIOVERSION, ELECTIVE;PRESENTATION MANAGER, HC CARDIOVERSION ELECTIVE ARRHYTHMIA EXTERNAL (03/16/2025 12:42 PM EDT) Narrative Dimitrios Wright MD - 03/16/2025 12:42 PM EDT iDmitrios Wright MD 03/17/2025 8:03 AM Electrical Cardioversion Performed by: Negrito Galvan MD Authorized by: Lata Sahu MD Consent: Consent obtained: Written Consent given by: Patient Risks, benefits, and alternatives were discussed: yes Risks discussed: Cutaneous burn, induced arrhythmia, and pain Alternatives discussed: Rate-control medication Throckmorton protocol: Procedure explained and questions answered to [...] was reviewed interactively on an advanced workstation ([employer] Logs) capable of 2 and 3 dimensional displays [...] Data was reviewed interactively on an advanced workstation([employer] Logs) capable of 2 and 3 dimensional displays [...] on 03/16/2025 10:24 AM Mellisa Tian APRN IM CT PROCEDURES Final Result * ECHO, ADULT [...] Root Diam 35 mm GUILLERMINA ISCV PA [place](ACCEL) 25.9 mmHg GUILLERMINA ISCV LVLs ap2 8.1 [...] WOUND Light Growth 03/16/2025 10:40 AM EDT [facility] CULTURE READING WOUND 1+ Biotype 1 Escherichia coli(A) DUSTIN 03/16/2025 10:40 AM EDT [facility] Comment: This isolate has been identified using the FDA Approved PacketHopyper CA System The organism value for this result has been updated. These results have been appended to the previously preliminary verified report. Edited result: Previously reported as Gram Negative Cam on 03/14/2025 at 0735 EDT. CULTURE READING WOUND 1+ Schaalia turicensis (formerly known as Actinomyces turicensis)(A) DUSTIN 03/16/2025 10:40 AM EDT [facility] Comment: This isolate has been identified using the FDA Approved PacketHopyper CA System The organism value for this result has been updated. These results have been appended to the previously preliminary verified report. CULTURE READING WOUND 1+ Biotype 2 Escherichia coli(A) DUSTIN 03/16/2025 10:40 AM EDT [facility] Comment: The organism value for this result has been updated. These results have been appended to the previously preliminary verified report. Edited result: Previously reported as Gram Negative Cam on 03/15/2025 at 1158 EDT. Gram Stain Result Moderate Polymorphonuclear leukocytes(A) 03/16/2025 10:40 AM EDT [facility] Gram Stain Result Moderate Gram positive cocci in pairs(A) 03/16/2025 10:40 AM EDT [facility] Gram Stain Result Few Gram negative diplococci(A) 03/16/2025 10:40 AM EDT [facility] Swab Skin and/or subcutaneous tissue [...] Escherichia coli Trimethoprim/Sulfamethoxazole DUSTIN <=0.5/9.5 ug/ml: Susceptible Jo Curtis MD LAB MICROBIOLOGY - GENERA L ORDERABLES Final Result [facility] [address] [place] [address] * [place] DRAIN SKIN ABSCESS COMPLIC (03/12/2025 5:54 AM [...] No treatment, delayed treatment and alternative treatment Throckmorton protocol: Procedure explained and questions answered to [...] 1.32 <2.00 IU/mL 03/12/2025 4:15 AM EDT [facility] Blood Venous blood specimen / Unknown Venipuncture / Unknown 03/12/2025 3:59 AM EDT 03/12/2025 4:01 AM EDT Narrative [facility] - 03/12/2025 4:15 AM EDT Therapeutic Range: LMWH enoxaparin 1mg/kg/dose, 12hrs - peak (3-5 hours after dose): 0.5 - 1.0 IU/mL LMWH enoxaparin 1.5mg/kg/dose, 24hrs - peak (3-5 hours after dose): 1.0 - 2.0 IU/mL LMWH enoxaparin prophylaxis: Not established us Sloane Baum LAB BLOOD [place] [address] * (ABNORMAL) Lipase (03/12/2025 3:59 AM EDT) [facility] Lipase, Plasma 17(L) 19 - 63 U/L 03/12/2025 4:35 AM EDT [facility] Blood Venous blood specimen / Unknown Venipuncture / Unknown 03/12/2025 3:59 AM EDT 03/12/2025 4:04 AM EDT us Sloane Baum LAB BLOOD ORDERABLES Final Resul t Performing Organization Address [facility] [place] [address] * POC Imaging (03/12/2025) Anatomical Region Laterality Modality Pelvis Other 03/12/2025 us External Provider IMG POINT OF CARE ULTRASOUND F inal Result * POCT glucose meter (03/02/2025 11:30 AM EDT) Only the most recent of18 resultswithin the time period is included. [facility] POCT Glucose 98 74 - 99 mg/dL [...] 03/02/2025 11:31 AM EDT [facility] Warehouse Manager ID Catalina Leonardo 025 11:31 AM EDT [facility] Device ID [id number] 03/02/2025 11:31 AM EDT [facility] Specimen Type POC Capillary 03/02/2025 11:31 AM EDT [facility] Blood Capillary blood specimen / Unknown 03/02/2025 11:30 AM EDT 03/02/2025 11:31 AM EDT us Lata Sahu MD LAB POINT OF CARE TE ST DOCKED DEVICE UNSOLICITED RESULTS Final Result [facility] [address] [place] [address] * (ABNORMAL) Renal Function Panel, Plasma (03/02/2025 12:20 AM EDT) Only the most recent of7 resultswithin the time period is included. Glucose, Plasma 93 74 - 99 mg/dL 03/02/2025 1:21 AM EDT [facility] BUN, Plasma 28(H) 8 - 23 mg/dL 03/02/2025 1:21 AM EDT [facility] Creatinine, Plasma 0.63(L) 0.70 - 1.20 mg/dL 03/02/2025 1:21 AM EDT [facility] BUN/Creatinine Ratio 44 03/02/2025 1:21 AM EDT [facility] Sodium, Plasma 134(L) 136 - 145 mmol/L 03/02/2025 1:21 AM EDT [facility] Potassium, Plasma 3.9 3.6 - 4.9 mmol/L 03/02/2025 1:21 AM EDT [facility] Chloride, Plasma 102 97 - 107 mmol/L 03/02/2025 1:21 AM EDT [facility] CO2, Plasma 18(L) 22 - 29 mmol/L 03/02/2025 1:21 AM EDT [facility] Anion Gap 14 6 - 16 mmol/L 03/02/2025 1:21 AM EDT [facility] Total Calcium, Plasma 8.3(L) 8.9 - 10.2 mg/dL 03/02/2025 1:21 AM EDT [facility] Phosphorus, Plasma 3.2 2.5 - 4.5 mg/dL 03/02/2025 1:21 AM EDT [facility] Albumin, Plasma 2.9(L) 3.5 - 5.2 g/dL 03/02/2025 1:21 AM EDT [facility] eGFRcr 104.9 mL/min/1.7 3m*2 03/02/2025 1:21 AM EDT [facility] Comment:Reported eGFRcr in m L/min/1.73m2 is based the CKD-EPI 2020 equation that does not use a race coefficient. Blood Venous blood specimen / Unknown Venipuncture / Unknown 03/02/2025 12:20 AM EDT 03/02/2025 12:27 AM EDT us Chuy SANDOVAL LAB BLOOD ORDERABLES Final Result [facility] [address] [place] [address] * XR Chest 2 Views (03/01/2025 4:58 [...] IMG XR PROCEDURES Final Res ult * [place] CRITICAL CARE, E/M 30-74 MINUTES (02/25/2025 12:48 [...] Raúl Andrade MD on 02/25/2025 3:08 PM Joy Fleming YEAST CULTURE DEVELOPER, REWRITE EDITOR, DNP IMG XR PROCEDURES Final Result * (ABNORMAL) Blood gas panel with oximetry, mixed venous (02/25/2025 3:39 AM EDT) Only the most recent of7 resultswithin the time period is included. pH, Mixed Venous 7.44(H) 7.32 - 7.43 LAB HEMATOLOGY METHOD 02/25/2025 3:58 AM EDT [facility] pCO2, Mixed Venous 36(L) 40 - 55 mmHg LAB HEMATOLOGY METHOD 02/25/2025 3:58 AM EDT [facility] pO2, Mixed Venous 31 25 - 40 mmHg LAB HEMATOLOGY METHOD 02/25/2025 3:58 AM EDT [facility] SO2, Measured, Mixed Venous 54(L) 65 - 80 % LAB HEMATOLOGY METHOD 02/25/2025 3:58 AM EDT [facility] Bicarbonate, Calculated, Mixed Venous 25 22 - 26 mmol/L LAB HEMATOLOGY METHOD 02/25/2025 3:58 AM EDT [facility] Base Excess, Mixed Venous 0.8 -2.0 - 3.0 mmol/L LAB HEMATOLOGY METHOD 02/25/2025 3:58 AM EDT [facility] Hematocrit, Whole Blood 29.0(L) 40.0 - 51.0 % LAB HEMATOLOGY METHOD 02/25/2025 3:58 AM EDT [facility] Sodium, Whole Blood 141 136 - 145 mmol/L LAB HEMATOLOGY METHOD 02/25/2025 3:58 AM EDT [facility] Potassium, Whole Blood 3.6 3.6 - 4.9 mmol/L LAB HEMATOLOGY METHOD 02/25/2025 3:58 AM EDT [facility] Chloride, Whole Blood 106 97 - 107 mmol/L LAB HEMATOLOGY METHOD 02/25/2025 3:58 AM EDT [facility] Ionized Calcium, Whole Blood 4.5(L) 4.6 - 5.1 mg/dL LAB HEMATOLOGY METHOD 02/25/2025 3:58 AM EDT [facility] Glucose, Whole Blood 93 74 - 99 mg/dL LAB HEMATOLOGY METHOD 02/25/2025 3:58 AM EDT [facility] Oxyhemoglobin, Mixed Venous, Whole Blood 52.6 40.0 - 70.0 % LAB HEMATOLOGY METHOD 02/25/2025 3:58 AM EDT [facility] Hemoglobin Reduced, Mixed Venous, Whole Blood 45.1 % LAB HEMATOLOGY METHOD 02/25/2025 3:58 AM EDT [facility] Total Hemoglobin, Mixed Venous, Whole Blood 9.5(L) 13.7 - 17.5 g/dL LAB HEMATOLOGY METHOD 02/25/2025 3:58 AM EDT [facility] Blood Mixed venous blood specimen / Unknown Venipuncture / Unknown 02/25/2025 3:39 AM EDT 02/25/2025 3:55 AM EDT us Lata Sahu MD LAB BLOOD ORDERABLES Final Resu lt [facility] [address] [place] [address] * (ABNORMAL) Blood gas, arterial (02/25/2025 3:33 AM EDT) Only the most recent of15 resultswithin the time period is included. pH, Arterial 7.48(H) 7.31 - 7.42 LAB HEMATOLOGY METHOD 02/25/2025 3:59 AM EDT [facility] pCO2, Arterial 31(L) 32 - 45 mmHg LAB HEMATOLOGY METHOD 02/25/2025 3:59 AM EDT [facility] pO2, Arterial 72(L) >80 mmHg LAB HEMATOLOGY METHOD 02/25/2025 3:59 AM EDT [facility] SO2, Measured, Arterial 96 94 - 98 % LAB HEMATOLOGY METHOD 02/25/2025 3:59 AM EDT [facility] Base Excess, Arterial 0.0 -2.0 - 3.0 mmol/L LAB HEMATOLOGY METHOD 02/25/2025 3:59 AM EDT [facility] Bicarbonate, Calculated, Arterial 23 22 - 26 mmol/L LAB HEMATOLOGY METHOD 02/25/2025 3:59 AM EDT [facility] Hematocrit, Whole Blood 28.5(L) 40.0 - 51.0 % LAB HEMATOLOGY METHOD 02/25/2025 3:59 AM EDT [facility] Sodium, Whole Blood 140 136 - 145 mmol/L LAB HEMATOLOGY METHOD 02/25/2025 3:59 AM EDT [facility] Potassium, Whole Blood 3.6 3.6 - 4.9 mmol/L LAB HEMATOLOGY METHOD 02/25/2025 3:59 AM EDT [facility] Chloride, Whole Blood 107 97 - 107 mmol/L LAB HEMATOLOGY METHOD 02/25/2025 3:59 AM EDT [facility] Glucose, Whole Blood 91 74 - 99 mg/dL LAB HEMATOLOGY METHOD 02/25/2025 3:59 AM EDT [facility] Ionized Calcium, Whole Blood 4.5(L) 4.6 - 5.1 mg/dL LAB HEMATOLOGY METHOD 02/25/2025 3:59 AM EDT [facility] Lactate, Arterial, Whole Blood 1.2 0.5 - 1.6 mmol/L LAB HEMATOLOGY METHOD 02/25/2025 3:59 AM EDT [facility] Blood Arterial blood specimen / Unknown Arterial Puncture / Unknown 02/25/2025 3:33 AM EDT 02/25/2025 3:55 AM EDT Ramandeep Sunshine APRN LAB BLOOD ORDERABLES Final Result Performing Organization Address City/State/[facility] Co de Phone Number [facility] [address] [place] [address] * [place] CRITICAL CARE, E/M 30-74 MINUTES (02/24/2025 3:29 [...] - 4.9 mmol/L 02/24/2025 1:59 PM EDT [facility] Blood Venous blood specimen / Unknown Venipuncture / Unknown 02/24/2025 1:15 PM EDT 02/24/2025 1:37 PM EDT Ramandeep Sunshine APRN LAB BLOOD ORDERABLES Final Result [facility] [address] [place] [address] * (ABNORMAL) Blood gas panel, mixed venous (02/24/2025 1:14 PM EDT) pH, Mixed Venous 7.46(H) 7.32 - 7.43 LAB HEMATOLOGY METHOD 02/24/2025 1:24 PM EDT [facility] pCO2, Mixed Venous 38(L) 40 - 55 mmHg LAB HEMATOLOGY METHOD 02/24/2025 1:24 PM EDT [facility] pO2, Mixed Venous 26 25 - 40 mmHg LAB HEMATOLOGY METHOD 02/24/2025 1:24 PM EDT [facility] SO2, Measured, Mixed Venous 41(L) 65 - 80 % LAB HEMATOLOGY METHOD 02/24/2025 1:24 PM EDT [facility] Base Excess, Mixed Venous 2.9 -2.0 - 3.0 mmol/L LAB HEMATOLOGY METHOD 02/24/2025 1:24 PM EDT [facility] Bicarbonate, Calculated, Mixed Venous 27(H) 22 - 26 mmol/L LAB HEMATOLOGY METHOD 02/24/2025 1:24 PM EDT [facility] Hematocrit, Whole Blood 25.7(L) 40.0 - 51.0 % LAB HEMATOLOGY METHOD 02/24/2025 1:24 PM EDT [facility] Sodium, Whole Blood 142 136 - 145 mmol/L LAB HEMATOLOGY METHOD 02/24/2025 1:24 PM EDT [facility] Potassium, Whole Blood 3.5(L) 3.6 - 4.9 mmol/L LAB HEMATOLOGY METHOD 02/24/2025 1:24 PM EDT [facility] Chloride, Whole Blood 105 97 - 107 mmol/L LAB HEMATOLOGY METHOD 02/24/2025 1:24 PM EDT [facility] Ionized Calcium, Whole Blood 4.5(L) 4.6 - 5.1 mg/dL LAB HEMATOLOGY METHOD 02/24/2025 1:24 PM EDT [facility] Glucose, Whole Blood 102(H) 74 - 99 mg/dL LAB HEMATOLOGY METHOD 02/24/2025 1:24 PM EDT [facility] Blood Mixed venous blood specimen / Unknown Venipuncture / Unknown 02/24/2025 1:14 PM EDT 02/24/2025 1:21 PM EDT us Lata Sahu MD LAB BLOOD ORDERABLES Final Resu lt [facility] [address] [place] [address] * CT Abdomen Pelvis w IV Contrast [...] MD on 02/23/2025 3:35 PM Madelin Bruce [facility] CT PROCEDURES Final Result * CT Chest [...] MD on 02/23/2025 3:03 PM Madelin Bruce YEAST CULTURE DEVELOPER IM CT PROCEDURES Final Result * CT [...] at the P2 segment of the right [employer]UC[employer] DEAN. 2. 2 mm aneurysm or infundibulum at [...] Total DLP (Dose-Length Product): 2521.77 mGy.cm (accession [id number]), 2521.77 mGy.cm (accession [id number]). Please note: The reported value represents the [...] No aneurysm of either internal carotid artery. [place] and Major Peripheral Branches: Focal severe stenosis at the P2 segment of the right [employer]UC[employer] DEAN. origin right [employer]UC[employer] DEAN. 2 mm outpouching from the M1 segment [...] Total DLP (Dose-Length Product): 2521.77 mGy.cm (accession [id number]),2521.77 mGy.cm (accession [id number]). Please note: The reported valuerepresents the total [...] No aneurysm of either internal carotid artery. [place] and Major Peripheral Branches: Focal severe stenosis atthe P2 segment of the right [employer]UC[employer] DEAN. origin right [employer]UCATION DEAN. 2 mm outpouchingfrom the M1 segment of [...] at the P2 segment of the right [employer]UC[employer] DEAN. 2.2 mm aneurysm or infundibulum at the M1 segment of the left MCA. CRITICAL RESULT: None. COMMUNICATION: Per this written report. Drafted by Juan Angel MD on 02/23/2025 11:55 PM Final report signed by Juan Angel MD on 02/24/2025 12:24 AM Madelin Bruce YEAST CULTURE DEVELOPER IM CT PROCEDURES Final Result * CT Angio Head (02/23/2025 2:44 PM EDT) Anatomical Region Laterality Modality [place] Computed Tomogr aphy Impressions 02/24/2025 12:24 AM EDT Neck CTA: 1. Severe stenosis at the origins of the vertebral arteries bilaterally due to atherosclerosis. 2. Atherosclerosis at the carotid bulbs bilaterally without hemodynamically significant stenosis. Head CTA: 1. Focal severe stenosis at the P2 segment of the right [employer]UC[employer] DEAN. 2. 2 mm aneurysm or infundibulum at [...] Total DLP (Dose-Length Product): 2521.77 mGy.cm (accession [id number]), 2521.77 mGy.cm (accession [id number]). Please note: The reported value represents the [...] No aneurysm of either internal carotid artery. [place] and Major Peripheral Branches: Focal severe stenosis at the P2 segment of the right [employer]UC[employer] DEAN. origin right CONTINUING EDUCATION DEAN. 2 mm outpouching from the M1 segment [...] Total DLP (Dose-Length Product): 2521.77 mGy.cm (accession [id number]),2521.77 mGy.cm (accession [id number]). Please note: The reported valuerepresents the total [...] No aneurysm of either internal carotid artery. [place] and Major Peripheral Branches: Focal severe stenosis atthe P2 segment of the right [employer]UC[employer] DEAN. origin right CONTINUING EDUCATION DEAN. 2 mm outpouchingfrom the M1 segment of [...] at the P2 segment of the right [employer]UC[employer] DEAN. 2.2 mm aneurysm or infundibulum at the M1 segment of the left MCA. CRITICAL RESULT: None. COMMUNICATION: Per this written report. Drafted by Juan Angel MD on 02/23/2025 11:55 PM Final report signed by Juan Angel MD on 02/24/2025 12:24 AM Madelin Bruce APRN IMG CT PROCEDURES Final Result * [place] [facility], E/M 30-74 MINUTES (02/23/2025 1:58 PM EDT) Narrative Madelin Bruce APRN - 02/23/2025 1:58 PM EDMadelin Mcgarry APRN 02/23/2025 2:06 PM Critical Care Performed [...] -IgG 0.083 OD 02/25/2025 9:35 AM EDT [facility] BLOOD [facility] ([facility] PF4 High Dose -IgG 0.070 OD 2024 9:35 AM EDT [facility] ([facility] PF4 Result -IgG Negative Negative 9:35 AM EDT [facility] ([facility] Comment: Results obtained with this patient's serum [...] and Neutrophil Immunology Laboratory at , ext. [phone]. This test was developed and its performance characteristics determined by [email or web address]. It has not been cleared or approved [...] LAB BLOOD AND FLUID ORD Final Result [facility] ([facility] [address] [place] [address] * (ABNORMAL) Thyroid Stimulating Hormone, Plasma (02/23/2025 10:40 AM EDT) Thyroid Stimulating Hormone, Plasma 6.73(H) 0.40 - 4.20 uIU/mL 02/23/2025 11:36 AM EDT [facility] Blood Venous blood specimen / Unknown Venipuncture / Unknown 02/23/2025 10:40 AM EDT 02/23/2025 10:58 AM EDT ENRRIQUE Guillermo APRN, JESSE LAB BLOOD ORDERABL ES Final Result [facility] [address] [place] [address] * T4, free (02/23/2025 10:40 AM EDT) Only the most recent of2 resultswithin the time period is included. Free T4, Plasma 0.9 0.8 - 1.7 ng/dL 02/23/2025 11:36 AM EDT [facility] Blood Venous blood specimen / Unknown Venipuncture / Unknown 02/23/2025 10:40 AM EDT 02/23/2025 10:58 AM EDT Joy Fleming APRN, REWRITE EDITOR, DNP LAB BLOOD ORDERABL ES Final Result Performing Organization Address City/[facility]/ZIP Co de Phone Number [facility] [address] [place] [address] * Folate (02/23/2025 10:40 AM EDT) Folate, Serum 5.4 >4.6 ng/mL 02/23/2025 11:53 AM EDT [facility] Blood Venous blood specimen / Unknown Venipuncture / Unknown 02/23/2025 10:40 AM EDT 02/23/2025 10:58 AM EDT Joy Fleming APRN, ENRRIQUE, DNP LAB BLOOD ORDERABL ES Final Result Performing Organization Address [facility]/[place] de Phone Number [facility] [address] [place] [address] * Cortisol (02/23/2025 10:40 AM EDT) Cortisol 54.00 Before 10am: 3.7 - 19.4. After 5pm: 2.9 - 17.3 ug/dL 02/23/2025 7:43 PM EDT [facility] Comment:Testing performed on [employer], standardized against FDC Reference Standard concentration values assigned by LC-MS/MS and verified by BCR 192 and BCR 193 certified reference materials. Blood Venous blood specimen / Unknown Venipuncture / Unknown 02/23/2025 10:40 AM EDT 02/23/2025 10:58 AM EDT Joy Fleming APRN, ENRRIQUE, DNP LAB REF LAB BLOOD AND FLUID ORD Final Result Performing Organization Address City/[facility]/ZIP Co de Phone Number [facility] [address] [place] [address] * Ammonia, Plasma (02/23/2025 10:40 AM EDT) Ammonia 19 11 - 51 umol/L 02/23/2025 11:20 AM EDT [facility] Blood Venous blood specimen / Unknown Venipuncture / Unknown 02/23/2025 10:40 AM EDT 02/23/2025 10:55 AM EDT Madelin Bruce YEAST CULTURE DEVELOPER LAB BLOOD ORDERABLES Fin al Result [facility] [address] [place] [address] * (ABNORMAL) POCT arterial blood gas gem (02/22/2025 3:21 PM EDT) Only the most recent of20 resultswithin the time period is included. pH, Arterial 7.36 7.31 - 7.42 02/23/2025 1:52 PM EDT [facility] pCO2, Arterial 45 32 - 45 mm Hg 02/23/2025 1:52 PM EDT [facility] pO2, Arterial 128 >80 mm Hg 02/23/2025 1:52 PM EDT [facility] SO2, Arterial 98 94 - 98 % 02/23/2025 1:52 PM EDT [facility] Base Excess, Arterial -0.4 -2 - 3 mmol/L 02/23/2025 1:52 PM EDT [facility] HCO3, Arterial 25.4 22 - 26 mmol/L 02/23/2025 1:52 PM EDT [facility] Total Hemoglobin, Arterial, Whole Blood 14.1 13.7 - 17.5 g/dL 02/23/2025 1:52 PM EDT [facility] Hematocrit, Arterial 42.0 40 - 51.0 % 02/23/2025 1:52 PM EDT [facility] Sodium, Arterial 140 136 - 145 mmol/L 02/23/2025 1:52 PM EDT [facility] Potassium, Arterial 3.8 3.6 - 4.9 mmol/L 02/23/2025 1:52 PM EDT [facility] Chloride, Whole Blood 106 97 - 107 mmol/L 02/23/2025 1:52 PM EDT [facility] Glucose, Arterial 204(H) 74 - 99 mg/dL 02/23/2025 1:52 PM EDT [facility] Ionized Calcium, Arterial 4.5(L) 4.6 - 5.1 mg/dL 02/23/2025 1:52 PM EDT [facility] Lactate, Arterial 1.0 0.5 - 1.6 mmol/L 02/23/2025 1:52 PM EDT [facility] Body Temperature 37.0 Celsius 02/23/2025 1:52 PM EDT [facility] pH, Temp Corrected, Arterial 7.36 7.31 - 7.42 02/23/2025 1:52 PM EDT [facility] pCO2, Temp Corrected, Arterial 45 32 - 45 mm Hg 02/23/2025 1:52 PM EDT [facility] pO2, Temp Corrected, Arterial 128 >80 mm Hg 02/23/2025 1:52 PM EDT [facility] Warehouse Manager ID Clarice Cui 02/23/2025 1:52 PM EDT [facility] Blood, Arterial Whole blood specimen / Unknown 02/22/2025 3:21 PM EDT 02/23/2025 1:52 PM EDT us Lata Sahu MD LAB POINT OF CARE TE ST DOCKED DEVICE UNSOLICITED RESULTS Final Result Performing Organization Address City/[facility]/ZIP Co de Phone Number [facility] [address] [place] [address] * Light Green Top (02/22/2025 2:30 PM EDT) Only the most recent of4 resultswithin the time period is included. Extra Hold for add-ons 02/22/2025 5:01 PM EDT [facility] Comment:Auto resulted. Blood Venous blood specimen / Unknown Venipuncture / Unknown 02/22/2025 2:30 PM EDT 02/22/2025 2:30 PM EDT us Lata Sahu MD LAB BLOOD ORDERABLES Final Resu lt [facility] [address] [place] [address] * (ABNORMAL) Ionized calcium, whole blood (02/22/2025 2:21 PM EDT) Only the most recent of2 resultswithin the time period is included. Pathologist [facility] Ionized Calcium, Whole Blood 4.5(L) 4.6 - 5.1 mg/dL LAB HEMATOLOGY METHOD 02/22/2025 2:32 PM EDT [facility] Blood Venous blood specimen / Unknown Venipuncture / Unknown 02/22/2025 2:21 PM EDT 02/22/2025 2:29 PM EDT us Joy Fleming YEAST CULTURE DEVELOPER, REWRITE EDITOR, DNP LAB BLOOD ORDERABL ES Final Result Performing Organization Address [facility] Co de Phone Number [facility] [address] [place] [address] * Multi Drug Resistance Test (02/22/2025 11:00 AM EDT) Only the most recent of2 resultswithin the time period is included. [facility] Culture No growth at day 1 02/23/2025 9:05 AM EDT [facility] Swab (Nares and Leslie Rectal) 02/22/2025 11:00 AM EDT 02/22/2025 11:49 AM EDT us Sohail Alex MD LAB MICROBIOLOGY - GEN ERAL ORDERABLES Final Result Performing Organization Address [facility]/[place] [address] * (ABNORMAL) Hemoglobin (02/22/2025 8:25 AM EDT) Only the most recent of3 resultswithin the time period is included. [facility] HGB 9.5(L) 13.7 - 17.5 g/dL LAB HEMATOLOGY METHOD 02/22/2025 8:54 AM EDT [facility] Blood Venous blood specimen / Unknown Venipuncture / Unknown 02/22/2025 8:25 AM EDT 02/22/2025 8:46 AM EDT us Lata Sahu MD LAB BLOOD ORDERABLES Final Resu lt Performing Organization Address City/[facility] Co de Phone Number [facility] [address] [place] [address] * (ABNORMAL) Hematocrit (02/22/2025 8:25 AM EDT) Only the most recent of3 resultswithin the time period is included. HCT 28.0(L) 40.0 - 51.0 % LAB HEMATOLOGY METHOD 02/22/2025 8:54 AM EDT [facility] Blood Venous blood specimen / Unknown Venipuncture / Unknown 02/22/2025 8:25 AM EDT 02/22/2025 8:46 AM EDT us Lata Sahu MD LAB BLOOD ORDERABLES Final Resu lt [facility] [address] [place] [address] * [place] [facility], ADDL 30 MIN (02/22/2025 8:05 AM EDT) Narrative Madelin Bruce APRN - 02/22/2025 8:05 AM EDT Madelin Bruce APRN 02/22/2025 11:26 AM Critical Care Performed by: Madelin Bruce APRN Authorized by: Madelin Bruce, ZANA Critical care provider statement: Critical care time [...] 111 <150 mg/dL 02/22/2025 4:26 AM EDT [facility] Comment: Triglyceride Reference Range (age >17 years): Desirable: <150 mg/dL Borderline high: 150 to 199 mg/dL High: 200 to 499 mg/dL Very high: >499 mg/dL Increased risk of pancreatitis: >1000 mg/dL Fasting greater than or equal to 12 hours? Yes 02/22/2025 4:26 AM EDT [facility] Blood Arterial blood specimen / Unknown Arterial Puncture / Unknown 02/22/2025 3:42 AM EDT 02/22/2025 3:55 AM EDT us Lata Sahu MD LAB BLOOD ORDERABLES Final Resu lt [facility] [address] [place] [address] * [place] [facility], E/M 30-74 MINUTES (02/21/2025 11:38 [...] Antibody, Quantitative (02/21/2025 10:36 PM EDT) Pathologist [facility] Hepatitis B Surface Antibody, Quantitative 20.73(H) NonReacti ve: <8, Grayzone: 8 - <12, Reactive: >= 12 mIU/mL 02/22/2025 1:33 AM EDT [facility] Comment: Reactive. Individual is considered immune to HBV infection. Blood Venous blood specimen / Unknown Venipuncture / Unknown 02/21/2025 10:36 PM EDT 02/21/2025 10:49 PM EDT us Jolene Montes De Oca MD LAB BLOOD ORDERABLES Final Result Performing Organization Address City/[facility]/ZIP Co de Phone Number [facility] [address] [place] [address] * Haley auris Surveillance by PCR (02/21/2025 10:36 PM EDT) Pathologist [facility] Haley auris PCR Result Not Detected Not Detected 02/23/2025 6:33 AM EDT [facility] Swab (Axilla and Groin) Non-blood Collection / Unknown 02/21/2025 10:36 PM EDT 02/22/2025 12:36 AM EDT Narrative [facility] - 02/23/2025 6:33 AM EDT This PCR assay was developed and its performance characteristics determined by [facility] as appropriate for clinical purposes. This assay has not been cleared or approved by the FDA, but is performed in a CLIA regulated laboratory that is qualified to perform high-complexity testing. us Lata Sahu MD LAB MICROBIOLOGY - GENERAL MAREK YANG Final Result [facility] [address] [place] [address] * Hepatitis C antibody (02/21/2025 10:36 PM EDT) Pathologist [facility] Hepatitis C Antibody Negative Negative 02/21/2025 11:38 PM EDT [facility] Blood Venous blood specimen / Unknown Venipuncture / Unknown 02/21/2025 10:36 PM EDT 02/21/2025 10:49 PM EDT us Jolene Montes De Oca MD LAB BLOOD ORDERABLES Final Result Performing Organization Address City/[facility]/ZIP Co de Phone Number [facility] [address] [place] [address] * Hepatitis B Core Antibody IgM (02/21/2025 10:36 PM EDT) Hepatitis B Core Antibody IgM Negative Negative 02/22/2025 1:33 AM EDT [facility] Blood Venous blood specimen / Unknown Venipuncture / Unknown 02/21/2025 10:36 PM EDT 02/21/2025 10:49 PM EDT us Jolene Montes De Oca MD LAB BLOOD ORDERABLES Final Result Performing Organization Address [facility]/ZIP Co de Phone Number [facility] [address] [place] [address] * Hepatitis B Core Total Antibody IgG,IgM (02/21/2025 10:36 PM EDT) Hepatitis B Core Total Antibody IgG,IgM Negative Negative 02/22/2025 1:33 AM EDT [facility] Blood Venous blood specimen / Unknown Venipuncture / Unknown 02/21/2025 10:36 PM EDT 02/21/2025 10:49 PM EDT us Jolene Montes De Oca MD LAB BLOOD ORDERABLES Final Result Performing Organization Address City/[facility]/ZIP Co de Phone Number [facility] [address] [place] [address] * Hepatitis B Surface Antigen (02/21/2025 10:36 PM EDT) Hepatitis B Surf Antigen Negative Negative 02/22/2025 1:33 AM EDT [facility] Blood Venous blood specimen / Unknown Venipuncture / Unknown 02/21/2025 10:36 PM EDT 02/21/2025 10:49 PM EDT us Jolene Montes De Oca MD LAB BLOOD ORDERABLES Final Result Performing Organization Address City/[facility]/ZIP Co de Phone Number [facility] [address] [place] [address] * APTT (02/21/2025 10:36 PM EDT) Only the most recent of3 resultswithin the time period is included. aPTT 32 25 - 35 sec LAB COAGULATION METHOD 02/21/2025 11:21 PM EDT [facility] Blood Venous blood specimen / Unknown Venipuncture / Unknown 02/21/2025 10:36 PM EDT 02/21/2025 10:49 PM EDT us Lata Sahu MD LAB BLOOD ORDERABLES Final Resu lt Performing Organization Address [facility] Co de Phone Number [facility] [address] [place] [address] * Transfuse fresh frozen plasma (02/21/2025 9:41 [...] - 9.1 min 02/21/2025 9:41 PM EDT [facility] R, Heparinase 9.2(H) 4.3 - 8.3 min 02/21/2025 9:41 PM EDT [facility] K 1.4 0.8 - 2.1 min 02/21/2025 9:41 PM EDT [facility] Angle 70.5 63.0 - 78.0 degrees 02/21/2025 9:41 PM EDT [facility] MA 63.5 52.0 - 69.0 mm 02/21/2025 9:41 PM EDT [facility] SIENA, Rapid 63.5 52.0 - 70.0 mm 02/21/2025 9:41 PM EDT [facility] MA, Fibrinogen 21.4 15.0 - 32.0 mm 02/21/2025 9:41 PM EDT [facility] FLEV 390.5 278.0 - 581.0 mg/dl 02/21/2025 9:41 PM EDT [facility] Blood Arterial blood specimen / Unknown [...] Chronic obstructive pulmonary disease, unspecified COPD type ([facility]/HCC) [J44.9] CAD, multiple vessel [I25.10] Anemia, unspecified type [D64.9] Heart failure with mid-range ejection fraction (HFmEF) ([facility]/HCC) [I50.22] Gastroesophageal reflux disease, unspecified whether esophagitis present [K21.9] Benign prostatic hyperplasia, unspecified whether lower urinary tract symptoms present [N40.0] Incomplete right bundle branch block [I45.10] Primary hypertension [I10] us Jolene Montes De Oca MD LAB BLOOD ORDERABLES Final Result [facility] [address] [place] [address] * Fibrinogen, Quantitative (Clottable) (02/21/2025 9:02 PM EDT) Only the most recent of3 resultswithin the time period is included. Fibrinogen, Quantitative (Clottable) 284 208 - 459 mg/dL LAB COAGULATION METHOD 02/21/2025 9:44 PM EDT [facility] Blood Arterial blood specimen / Unknown [...] Oca MD LAB BLOOD ORDERABLES Final Result [facility] [address] [place] [address] * Platelet Count, Blood (02/21/2025 9:02 PM EDT) Only the most recent of2 resultswithin the time period is included. Platelet Count 161 155 - 369 10*3/uL LAB HEMATOLOGY METHOD 02/21/2025 9:32 PM EDT [facility] Blood Arterial blood specimen / Unknown 02/21/2025 9:02 PM EDT 02/21/2025 9:27 PM EDT Comment:Pre-op diagnosis: Sinus bradycardia [R00.1] Concentric left ventricular hypertrophy [I51.7] Edentulous [K08.109] NSTEMI (non-ST elevated myocardial infarction) ([facility]) [I21.4] Cervical radiculopathy [M54.12] Tobacco abuse disorder [Z72.0] Hyperlipidemia, unspecified hyperlipidemia type [E78.5] Hypocalcemia [E83.51] Aortic valve insufficiency, etiology of cardiac valve disease unspecified [I35.1] Situational depression [F43.21] Obesity (BMI 30-39.9) [E66.9] Aortic valve stenosis, etiology of cardiac valve disease unspecified [I35.0] Chronic obstructive pulmonary disease, unspecified COPD type ([facility]) [J44.9] CAD, multiple vessel [I25.10] Anemia, unspecified type [D64.9] Heart failure with mid-range ejection fraction (HFmEF) ([facility]) [I50.22] Gastroesophageal reflux disease, unspecified whether esophagitis present [K21.9] Benign prostatic hyperplasia, unspecified whether lower urinary tract symptoms present [N40.0] Incomplete right bundle branch block [I45.10] Primary hypertension [I10] us Jolene Montes De Oca MD LAB BLOOD ORDERABLES Final Result [facility] [address] [place] [id number] * Prepare Fresh Frozen Plasma: 4 Units (02/21/2025 8:48 PM EDT) Only the most recent of2 resultswithin the time period is included. Product Code [id number] CH BLOO D BANK Dispense Status Transfused BLOOD BANK Blood Expiration Date [id number] BLOOD BANK Unit Number [id number] CH B LOOD BANK Product Blood Type 6200 BLOOD BANK Blood Type A+ CH BLOOD BANK Product Code [id number] CH BLOO D BANK Dispense Status Transfused BLOOD BANK Blood Expiration Date [id number] BLOOD BANK Unit Number [id number] CH B LOOD BANK Product Blood Type 6200 BLOOD BANK Blood Type A+ CH BLOOD BANK Product Code [id number] CH BLOO D BANK Dispense Status Returned CH BLOOD BANK Blood Expiration Date [id number] BLOOD BANK Unit Number [id number] CH B LOOD BANK Product Blood Type 6200 BLOOD BANK Blood Type A+ CH BLOOD BANK Product Code [id number] BLOO D BANK Dispense Status Transfused CH BLOOD BANK Blood Expiration Date [id number] BLOOD BANK Unit Number [id number] CH B LOOD BANK Product Blood Type 6200 BLOOD BANK Blood Type A+ CH BLOOD BANK Blood Venous blood specimen / Unknown Jolene Montes De Oca MD BLOOD BANK PRODUCT ORDERABL ES Final Result Performing Organization Address City/[facility] Co de Phone Number BLOOD BANK [address] [place] [address] * Transfuse platelets (02/21/2025 8:45 PM EDT) Only the most recent of3 resultswithin the time period is included. Jolene Montes De Oca MD BLOOD TRANSFUSION ORDERABLE S Final Result * Prepare Leukocyte Reduced Platelets (02/21/2025 8:37 PM EDT) Only the most recent of2 resultswithin the time period is included. [facility] Signature Product Code [id number] BLOO D BANK Dispense Status Transfused BLOOD BANK Blood Expiration Date [id number] BLOOD BANK Unit Number [id number] CH B LOOD BANK Product Blood Type 6200 BLOOD BANK Blood Type A+ CH BLOOD BANK us Provider Not In System BLOOD BANK PRODUCT ORD ERABLES Final Result Performing Organization Address City/[facility]/ZIP Co de Phone Number [facility] BANK [address] * Transfuse cryoprecipitate (02/21/2025 8:21 PM EDT) Only the most recent of2 resultswithin the time period is included. us Jolene Montes De Oca MD BLOOD TRANSFUSION ORDERABLE S Final Result * (ABNORMAL) QPLUS (02/21/2025 8:03 PM EDT) Clot Time 162 104 - 166 Seconds [...] - 29.8 hectoPascals 02/21/2025 8:18 PM EDT [facility] Fibrinogen Contribution to Clot Stiffness 2.0 1.0 - 3.7 hectoPascals 02/21/2025 8:18 PM EDT [facility] Heparinase Clot Time 155(H) 103 - 153 Seconds 02/21/2025 8:18 PM EDT [facility] Warehouse Manager ID Jolene Donald 02/21/2025 8:18 PM EDT [facility] Device ID [id number] 02/21/2025 8:18 PM EDT [facility] Whole Blood 02/21/2025 8:03 PM EDT 02/21/2025 8:18 PM EDT us Lata Sahu MD LAB POINT OF CARE TE ST DOCKED DEVICE UNSOLICITED RESULTS Final Result [facility] [address] [place] [id number] * POCT ACT (02/21/2025 7:53 PM EDT) Only the most recent of19 resultswithin the time period is included. ACT+ (HIGH RANGE) 131 68 - 600 Seconds 03/17/2025 10:03 PM EDT [facility] Warehouse Manager ID Dimas Vera 03/17/2025 10:03 PM EDT [facility] ACT Device ID [id number] 03/17/2025 10:03 PM EDT [facility] Comment 03/17/2025 10:03 PM EDT [facility] Comment: ACT performed by staff at [...] UNSOLICITED RESULTS Final Result Performing Organization Address [facility] de Phone Number [facility] [address] [facility] [address] [place] [address] * Prepare Cryoprecipitate: 2 Pools (02/21/2025 5:05 PM EDT) Product Code [id number] CH BLOO D BANK Dispense Status Transfused BLOOD BANK Blood Expiration Date [id number] BLOOD BANK Unit Number [id number] CH B LOOD BANK Product Blood Type 6200 BLOOD BANK Blood Type A+ CH BLOOD BANK Product Code Z4842E70 CH BLOO D BANK Dispense Status Transfused CH BLOOD BANK Blood Expiration Date [id number] BLOOD BANK Unit Number [id number] CH B LOOD BANK Product Blood Type 6200 BLOOD BANK Blood Type A+ CH BLOOD BANK Blood Venous blood specimen / Unknown Jolene Montes De Oca MD BLOOD BANK PRODUCT ORDERABL ES Final Result Performing Organization Address [facility]/ZIP Co de Phone Number BLOOD BANK [address] [place] [address] * Surgical Pathology Exam (02/21/2025 3:12 PM EDT) Case Report Surgical Pathology Case: [id number] Authorizing Provider: Lata Sahu MD Collected: 02/21/2025 1512 Ordering Location: [facility] OPERATING ROOM Received: 02/22/2025 0743 Pathologist: Ann Horan MD Specimen: Heart, Aortic valve leaflets 02/23/2025 12:52 PM EDT [facility] Final Diagnosis A. AORTIC VALVE LEAFLETS, EXCISION: - FIBROSIS WITH MYXOID CHANGE AND DEGENERATIVE CALCIFICATION. 02/23/2025 12:52 PM EDT [facility] at 1252 EDT Clinical Information Sinus [...] Primary hypertension [I10] 02/23/2025 12:52 PM EDT [facility] Gross Description A. AORTIC VALVE LEAFLETS Received fresh and placed in formalin labeled aortic valve leaflets , is one aggregate of white-castro rubbery valve leaflets measuring 3.7 x 2.7 x 1.5 cm. The specimen is serially sectioned and reveals a white-castro hard material, grossly consistent with calcification, measuring up to 1.0 cm. Senior [employer] sections are submitted in cassette A1. Daisy Marino Cold Time: 16h 31m 02/23/2025 12:52 PM EDT [facility] Tissue Heart structure / Unknown 02/21/2025 [...] Chronic obstructive pulmonary disease, unspecified COPD type ([facility]) [J44.9] CAD, multiple vessel [I25.10] Anemia, unspecified type [D64.9] Heart failure with mid-range ejection fraction (HFmEF) ([facility]/HCC) [I50.22] Gastroesophageal reflux disease, unspecified whether esophagitis present [K21.9] Benign prostatic hyperplasia, unspecified whether lower urinary tract symptoms present [N40.0] Incomplete right bundle branch block [I45.10] Primary hypertension [I10] us Lata Sahu MD LAB PATHOLOGY ORDERABLES Final Result [facility] [address] [place] [address] * [facility] (02/21/2025 12:21 PM EDT) Only the most recent of3 resultswithin the time period is included. Extra Hold for add-ons 02/21/2025 3:01 PM EDT [facility] Comment:Auto resulted. Blood Venous blood specimen / Unknown 02/21/2025 12:21 PM EDT 02/21/2025 12:49 PM EDT us Lata Sahu MD LAB BLOOD ORDERABLES Final Resu lt [facility] [address] [place] [address] * Hepatitis B Virus (HBV) Quantitative PCR (02/21/2025 12:21 PM EDT) Hepatitis B Virus (HBV) Quantitative Interpretation Not Detected Not Detected 02/24/2025 7:27 PM EDT [facility] Blood Arterial blood specimen / Unknown [...] branch block [I45.10] Primary hypertension [I10] Narrative [facility] - 02/24/2025 7:27 PM EDT The [employer] M2000 HBV Assay is a Real Time [...] Oca MD LAB BLOOD ORDERABLES Final Result [facility] [address] [place] [address] * Hepatitis C Virus (HCV) Quantitative PCR (02/21/2025 12:21 PM EDT) Hepatitis C Virus (HCV) Quantitative Interpretation Not Detected Not Detected. 02/22/2025 1:31 PM EDT [facility] Blood Arterial blood specimen / Unknown [...] branch block [I45.10] Primary hypertension [I10] Narrative [facility] - 02/22/2025 1:31 PM EDT The [...] Oca MD LAB BLOOD ORDERABLES Final Result [facility] [address] [place] [address] * Hepatitis C Virus (HCV) Genotype (02/21/2025 12:21 PM EDT) Hepatitis C Virus (HCV) Genotype Result Test not indicated due to undetectable HCV RNA viral load for genotyping Not Detected 02/24/2025 4:49 AM EDT [facility] Blood Arterial blood specimen / Unknown [...] branch block [I45.10] Primary hypertension [I10] Narrative [facility] - 02/24/2025 4:49 AM EDT This test is performed by the [employer] instrument for Real Time PCR HCV Genotype II. This test is FDA approved for use with serum specimens. This test is used for clinical purposes. It should not be regarded as investigational or for research. Reference interval includes HCV Genotypes: 1, 1A, 1B, 2, 3, 4, and 5. The [facility] Clinical Microbiology Laboratory is certified under the Clinical Laboratory Improvement Amendments of 1988 (CLIA-88) as qualified to perform high complexity clinical laboratory testing. Jolene Montes De Oca MD LAB BLOOD ORDERABLES Final Result [facility] [address] [place] [address] * Human Immunodeficiency Virus (HIV-1) Quantitative PCR (02/21/2025 12:21 PM EDT) Human Immunodeficiency Virus (HIV-1) Quant Interpretation Not Detected Not Detected 02/23/2025 11:08 AM EDT [facility] Blood Arterial blood specimen / Unknown [...] Chronic obstructive pulmonary disease, unspecified COPD type ([facility]) [J44.9] CAD, multiple vessel [I25.10] Anemia, unspecified type [D64.9] Heart failure with mid-range ejection fraction (HFmEF) ([facility]) [I50.22] Gastroesophageal reflux disease, unspecified whether esophagitis present [K21.9] Benign prostatic hyperplasia, unspecified whether lower urinary tract symptoms present [N40.0] Incomplete right bundle branch block [I45.10] Primary hypertension [I10] Narrative [facility] - 02/23/2025 11:08 AM EDT The [...] Oca MD LAB BLOOD ORDERABLES Final Result [facility] [address] [place] [address] * PB ANESTHESIA NON-TIMED PROCEDURE PLACEHOLDER (02/21/2025 11:29 AM EDT) BSA 2.26 m2 CAR DO NOT SEND Anatomical Region Laterality Modality Other Narrative 02/21/2025 11:29 AM EDT Jolene Montes De Oca MD 02/21/2025 10:46 PM Procedure Performed: TAYLOR General Procedure Information Diagnostic Indications for TAYLOR: assessment of surgical repair, hemodynamic monitoring, other indication Other indication: CABG, AVR Physician Requesting Echo: Reda, Guido K, MD Location performed: OR Modalities: 3D only, [...] mm Hg. No regional wall motion abnormalities Jolene Montes De Oca MD ANESTHESIA ORDERABLES Edite d Result - Final * [place] AN CENTRAL LINE TRIPLE LUMEN, PB ANESTHESIA NON-TIMED PROCEDURE PLACEHOLDER, ANESTHESIA ULTRASOUND GUIDED, [place] INSERT/PLACE FLOW DIRECT CATH (02/21/2025 9:35 AM [...] Oca MD ANESTHESIA ORDERABLES Final Result * [place] AN ELECTIVE ENDOTRACHEAL AIRWAY, PB ANESTHESIA PLACEHOLDER (02/21/2025 9:10 AM EDT) Jolene Kwan MD - 02/21/2025 9:10 AM EDT Jolene [...] LAB COAGULATION METHOD 02/21/2025 12:50 AM EDT [facility] Blood Venous blood specimen / Unknown Venipuncture / Unknown 02/21/2025 12:10 AM EDT 02/21/2025 12:27 AM EDT Narrative [facility] - 02/21/2025 12:50 AM EDT Therapeutic Range: UFH Full Dose and ACS/IN protocols*: 0.30 - 0.70 IU/mL UFH Low Dose protocol*: 0.25 - 0.50 IU/mL UFH prophylaxis: Not established us Alexsandra Cooper YEAST CULTURE DEVELOPER, DNP LAB BLOOD ORDERABLES Bianca trujillo Result [facility] [address] [place] [address] * Pulmonary function testing (02/18/2025 8:58 AM EDT) Pathologist [facility] FKP3NAM 3.08 L 02/18/2025 8:57 AM EDT VYAIRE [...] 2.46 02/18/2025 8:57 AM EDT VYAIRE PFT EOH7COKPWDLJS -2.06 02/18/2025 8:57 AM EDT VYAIRE PFT FEV1_Pre%Pred 66 % % 02/18/2025 8:57 AM EDT VYAIRE PFT FEV1 PREDAUTH _Quanjer GLI (2011) 02/18/2025 8:57 AM EDT VYAIRE PFT FEV1 Z-SCORE -2.06 02/18/2025 8:57 AM EDT VYAIRE PFT FEV1/FVC PRE 72.17 % 02/18/2025 8:57 AM EDT VYAIRE PFT [id number] 76 02/18/2025 8:57 AM EDT VYAIRE PFT XDC5SKCGCH 64 02/18/2025 8:57 AM EDT VYAIRE PFT MXK1YAYIITRDDWHM -0.58 02/19/20 8:57 AM EDT VYAIRE PFT AXJ3ZEQDTK%PRED 94 % % 8:57 AM EDT VYAIRE PFT [id number] US_Latiojer GLI (2011) 02/18/2025 8:57 AM EDT VYAIRE PFT BGQ0TFCBKSEHB -1 02/18/2025 8:57 AM EDT VYAIRE PFT YAO29-66% PRE 1.49 L/s 02/18/2025 8:57 AM EDT VYAIRE PFT DNJ70-33%_Pred 2.63 02/18/2025 8:57 AM EDT VYAIRE PFT SHU1192%LLN 1.20 02/18/2025 8:57 AM EDT VYAIRE PFT SRM0597%PREZSCORE -1.24 025 8:57 AM EDT VYAIRE PFT IYL1368%PRE%PRED 57 % % 02/19/20 25 8:57 AM EDT VYAIRE PFT YTN2066%PREDAUTH US_Quanjer GLI (2011) 02/18/2025 8:57 AM EDT VYAIRE PFT PEF PRE 6.67 L/s 02/18/2025 8:57 AM EDT VYAIRE PFT PEF PRED 8.75 02/18/2025 8:57 AM EDT VYAIRE PFT PEF LLN 6.43 02/18/2025 8:57 AM EDT VYAIRE PFT PEFPREZSCORE -1.48 02/18/2025 8:57 AM EDT VYAIRE PFT PEFPRE%PRED 76 % % 02/18/2025 8:57 AM EDT VYAIRE PFT PEF [facility] NHANES III (1998) 02/18/2025 8:57 AM EDT VYAIRE PFT NJNFPRCPILYCSYUR2RBY 20.64 ml/(min* mmHg) 02/18/2025 8:57 AM EDT VYAIRE PFT DLCOSINGLEBREATH PRED 26.53 02/18/2025 8:57 AM EDT VYAIRE PFT DLCOSINGLEBREATH LLN 19.65 02/09 8:57 AM EDT VYAIRE PFT DLCOSINGLEBREATH Z-SCORE -1.39 02/18/2025 8:57 AM EDT VYAIRE PFT DLCOSINGLEBREATH % PRED 77.8 % 02/18/2025 8:57 AM EDT VYAIRE PFT DLCOSINGLEBREATH [facility] (2019) 02/18/2025 8:57 AM EDT VYAIRE PFT DLCOSINGLEBREATH Z-SCORE -1.39 02/18/2025 8:57 AM EDT VYAIRE PFT FEZUURSPZDHMORAAG4XX E 24.67 ml/(min* mmHg) 02/18/2025 8:57 AM EDT VYAIRE PFT DLCOCSINGLEBREATH PRED 26.53 02/18/2025 8:57 AM EDT VYAIRE PFT DLCOCSINGLEBREATH LLN 19.65 02/18/2025 8:57 AM EDT VYAIRE PFT DLCOCSINGLEBREATH Z-SCORE -0.42 02/18/2025 8:57 AM EDT VYAIRE PFT DLCOCSINGLEBREATH % PRED 93.0 % 02/18/2025 8:57 AM EDT VYAIRE PFT DLCOCSINGLEBREATH PREDAUTH Stanoignacio TLCO GLI (2019) 02/18/2025 8:57 AM EDT VYAIRE PFT YLNXRD7XOR 5.13 ml/(min* mmHg*L) 02/18/2025 8:57 AM EDT VYAIRE PFT DLCOVAPRED 4.11 02/18/2025 8:57 AM EDT VYAIRE PFT DLCOVALLN 3.07 02/18/2025 8:57 AM EDT VYAIRE PFT DLCOVAZSCORE 1.48 02/18/2025 8:57 AM EDT VYAIRE PFT DLCOVA%PRED 124.6 % 02/18/2025 8:57 AM EDT VYAIRE PFT DLCOVAPREDAUTH Stanojevic TLCO GLI (2019) 02/18/2025 8:57 AM EDT VYAIRE PFT DLCOVAZSCORE 1.48 02/18/2025 8:57 AM EDT VYAIRE PFT WISLMRCTM9TYZ 6.13 ml/(min* mmHg*L) 02/18/2025 8:57 AM EDT VYAIRE PFT DLCOC SB/VA PRED 4.11 02/19/20 8:57 AM EDT VYAIRE PFT DLCOC SB/VA LLN 3.07 8:57 AM EDT VYAIRE PFT DLCOC SB/VA Z-SCORE 2.84 02/18 8:57 AM EDT VYAIRE PFT DLCOC SB/VA % PRED 149.0 % 2024 8:57 AM EDT VYAIRE PFT DLCOC SB/VA PREDAUTH Stanodavonvic TLCO GLI (2019) 02/18/2025 8:57 AM EDT VYAIRE PFT DLCOC SB/VA Z-SCORE 2.84 02/18 8:57 AM EDT VYAIRE PFT SHQQGJJYVVJKTI8KAX 4.03 L 2024 8:57 AM EDT VYAIRE PFT VASINGLEBREATH PRED 6.49 02/18 8:57 AM EDT VYAIRE PFT VASINGLEBREATH LLN 5.23 2024 8:57 AM EDT VYAIRE PFT VASINGLEBREATH Z-SCORE -3.38 02/18/2025 8:57 AM EDT VYAIRE PFT VASINGLEBREATH % PRED 62.1 % 02/18/2025 8:57 AM EDT VYAIRE PFT VASINGLEBREATH [facility] Carlo [facility] (2019) 02/18/2025 8:57 AM EDT VYAIRE PFT VASINGLEBREATH Z-SCORE -3.38 02/18/2025 8:57 AM EDT VYAIRE PFT ASXAZDPCATRGNPL2DWC 2.73 L 02/18 8:57 AM EDT VYAIRE PFT IVCSINGLEBREATH PRED 4.40 04 8:57 AM EDT VYAIRE PFT IVCSINGLEBREATH LLN 3.30 02/18 8:57 AM EDT VYAIRE PFT IVCSINGLEBREATH Z-SCORE -2.51 02/18/2025 8:57 AM EDT VYAIRE PFT IVCSINGLEBREATH % PRED 62.0 % 02/18/2025 8:57 AM EDT VYAIRE PFT IVCSINGLEBREATH [facility] (2011) 02/18/2025 8:57 AM EDT VYAIRE PFT HB PRE 9.90 g(Hb)/dL 02/18/2025 8:57 AM EDT VYAIRE PFT CPG2WFN 5.33 L 02/18/2025 8:57 AM EDT VYAIRE PFT TLCPRED 7.19 02/18/2025 8:57 AM EDT VYAIRE PFT TLCLLN 5.73 02/18/2025 8:57 AM EDT VYAIRE PFT TLCULN 8.68 02/18/2025 8:57 AM EDT VYAIRE PFT TLCZSCORE -2.10 02/18/2025 8:57 AM EDT VYAIRE PFT TLC%PRED 74.1 % 02/18/2025 8:57 AM EDT [facility]RE PFT TLCPREDAUT[facility] (2019)__ 02/18/2025 8:57 AM [...] % 02/18/2025 8:57 AM EDT VYAIRE PFT ICPREDAUTAccess [facility] volumes GLI (2019)__ 02/18/2025 8:57 AM EDT VYAIRE PFT ONSOHVPP0VNN 3.15 L 02/18/2025 8:57 AM EDT VYAIRE PFT FRCPLETH PRED 3.79 02/18/2025 8:57 AM EDT VYAIRE PFT FRCPLETH LLN 2.63 02/18/2025 8:57 AM EDT VYAIRE PFT FRCPLETH ULN 5.25 02/18/2025 8:57 AM EDT VYAIRE PFT FRCPLETH Z-SCORE -0.86 02/19/20 8:57 AM EDT VYAIRE PFT FRCPLETH % PRED 83.1 % 8:57 AM EDT VYAIRE PFT FRCPLETH PREDAUTAccess Hospital [facility] Lung volumes GLI (2019)__ 02/18/2025 8:57 AM EDT VYAIRE PFT OUC9GRP 0.76 L 02/18/2025 8:57 AM EDT VYAIRE PFT ERVPRED 1.27 02/18/2025 8:57 AM EDT VYAIRE PFT ERVLLN 0.43 02/18/2025 8:57 AM EDT VYAIRE PFT ERVULN 2.51 02/18/2025 8:57 AM EDT VYAIRE PFT ERV Z-SCORE -0.90 02/18/2025 8:57 AM EDT VYAIRE PFT ERV%PRED 59.6 % 02/18/2025 8:57 AM EDT VYAIRE PFT ERVPREDAUTAccess [facility] Lung volumes GLI (2019)__ 02/18/2025 8:57 AM EDT VYAIRE PFT RV0PRE 2.25 L 02/18/2025 8:57 AM EDT VYAIRE PFT RVPRED 2.43 02/18/2025 8:57 AM EDT VYAIRE PFT RVLLN 1.47 02/18/2025 8:57 AM EDT VYAIRE PFT RVULN 3.57 02/18/2025 8:57 AM EDT VYAIRE PFT RVZSCORE -0.28 02/18/2025 8:57 AM EDT VYAIRE PFT RV%PRED 92.8 % 02/18/2025 8:57 AM EDT VYAIRE PFT RVPREDAUTAccess Hospital [facility] Lung volumes GLI (2019)__ 02/18/2025 8:57 AM EDT VYAIRE PFT RV%LJR6CWQ 42.29 % 02/18/2025 8:57 AM EDT VYAIRE PFT RV%TLCPRED 33 02/18/2025 8:57 AM EDT VYAIRE PFT RV%TLCLLN 23 02/18/2025 8:57 AM EDT VYAIRE PFT RV%TLCULN 44 02/18/2025 8:57 AM EDT VYAIRE PFT RV%TLCZSCORE 1.36 02/18/2025 8:57 AM EDT VYAIRE PFT RV%TLC%PRED 127.0 % 02/18/2025 8:57 AM EDT VYAIRE PFT RV%TLCPREDAUTH Kay Lung volumes GLI (2020)__ 02/18/2025 8:57 AM EDT VYAIRE PFT SKY7KPA 3.18 L 02/18/2025 8:57 AM EDT VYAIRE PFT Anatomical Region Laterality Modality PFT 02/18/2025 8:29 AM EDT Narrative 02/21/2025 12:45 PM EDT Pulmonary Function Testing Report Shelly Nelson 64 y.o. underwent pulmonary function testing today at the [facility]. The patient underwent spirometry, lung volumes by [...] no prior studies for comparison. Alexsandra Cooper APRN, DNP PFT ORDERABLES Final Res ult * Ionized calcium, serum (02/18/2025 12:13 AM EDT) Only the most recent of2 resultswithin the time period is included. Ionized Calcium, Serum 4.9 4.6 - 5.3 mg/dL LAB HEMATOLOGY METHOD 02/18/2025 12:49 AM EDT [facility] Blood Venous blood specimen / Unknown Venipuncture / Unknown 02/18/2025 12:13 AM EDT 02/18/2025 12:28 AM EDT Alexsandra Cooper APRN, JESSE LAB BLOOD ORDERABLES Bianca trujillo Result [facility] [address] [place] [id number] * VAS US Carotid Duplex Bilateral (02/17/2025 [...] GUILLERMINA ISCV Ao mean PG 19 mmHg GIULLERMINA ISCV Ao V2 Vmax 303.0 cm/s GUILLERMINA [...] GUILLERMINA ISCV PETE(I,D) 1.5 cm2 GUILLERMINA ISCV PETE(VTI)/BSA_p hl 0.7 cm2/m2 GUILLERMINA ISCV Ao Root Diam 42 mm GUILLERMINA ISCV LAV(MOD-4ch) 61 mL GUILLERMINA ISCV MV E Vmax 64.4 cm/s GUILLERMINA ISCV MV A Vmax 56.2 cm/s GUILLERMINA ISCV MV E/A 1.1 cm/s GUILLERMINA ISCV MV dec time 210 ms GUILLERMINA ISCV MV P1/2t 61 ms GUILLERMINA ISCV MVA(P1/2t) 3.6 cm2 GUILLERMINA ISCV LV Lat e' Velocity 7.6 cm/s GUILLERMIAN ISCV Lat E/e' 8.5 GUILLERMINA ISCV LV [...] mean PAP 43 mmHg GUILLERMINA ISCV PA [place](ACCEL) 44.5 mmHg GUILLERMINA ISCV PA acc slope [...] is no recent study available for direct orta-ok-welg comparison. us Alexsandra Cooper APRN, DNP CV ECHO PROCEDURES Final Result * Lavender Top (02/16/2025 8:27 PM EDT) Only the most recent of2 resultswithin the time period is included. Pathologist [facility] Extra Hold for add-ons 02/16/2025 11:01 PM EDT [facility] Comment:Auto resulted. Blood Venous blood specimen / Unknown 02/16/2025 8:27 PM EDT 02/16/2025 8:27 PM EDT us Frederic Hein MD LAB BLOOD ORDERABLES Final Resu lt [facility] [address] [place] [address] * (ABNORMAL) Blood gas panel, venous (02/16/2025 8:23 PM EDT) Pathologist [facility] pH, Venous 7.42 7.32 - 7.43 LAB HEMATOLOGY METHOD 02/16/2025 8:41 PM EDT [facility] pCO2, Venous 36(L) 40 - 55 mmHg LAB HEMATOLOGY METHOD 02/16/2025 8:41 PM EDT [facility] pO2, Venous 49(H) 25 - 40 mmHg LAB HEMATOLOGY METHOD 02/16/2025 8:41 PM EDT [facility] SO2, Measured, Venous 84(H) 65 - 80 % LAB HEMATOLOGY METHOD 02/16/2025 8:41 PM EDT [facility] Base Excess, Venous -1.3 -2.0 - 3.0 mmol/L LAB HEMATOLOGY METHOD 02/16/2025 8:41 PM EDT [facility] Bicarbonate, Calculated, Venous 23 22 - 26 mmol/L LAB HEMATOLOGY METHOD 02/16/2025 8:41 PM EDT [facility] Hematocrit, Whole Blood 31.2(L) 40.0 - 51.0 % LAB HEMATOLOGY METHOD 02/16/2025 8:41 PM EDT [facility] Sodium, Whole Blood 139 136 - 145 mmol/L LAB HEMATOLOGY METHOD 02/16/2025 8:41 PM EDT [facility] Potassium, Whole Blood 3.6 3.6 - 4.9 mmol/L LAB HEMATOLOGY METHOD 02/16/2025 8:41 PM EDT [facility] Chloride, Whole Blood 106 97 - 107 mmol/L LAB HEMATOLOGY METHOD 02/16/2025 8:41 PM EDT [facility] Glucose, Whole Blood 86 74 - 99 mg/dL LAB HEMATOLOGY METHOD 02/16/2025 8:41 PM EDT [facility] Lactate, Venous, Whole Blood 1.2 0.5 - 2.2 mmol/L LAB HEMATOLOGY METHOD 02/16/2025 8:41 PM EDT [facility] Ionized Calcium, Whole Blood 4.6 4.6 - 5.1 mg/dL LAB HEMATOLOGY METHOD 02/16/2025 8:41 PM EDT [facility] Blood Venous blood specimen / Unknown Venipuncture / Unknown 02/16/2025 8:23 PM EDT 02/16/2025 8:38 PM EDT us Alexsandra Cooper YEAST CULTURE DEVELOPER, DNP LAB BLOOD ORDERABLES Bianca l Result [facility] [address] [place] [address] * Creatine Kinase (CK), Total (02/16/2025 8:15 PM EDT) Creatine Kinase, Plasma 114 49 - 320 U/L 02/16/2025 10:24 PM EDT [facility] Blood Venous blood specimen / Unknown Venipuncture / Unknown 02/16/2025 8:15 PM EDT 02/16/2025 8:26 PM EDT us Frederic Hein MD LAB BLOOD ORDERABLES Final Resu lt Performing Organization Address [facility]/ZIP Co de Phone Number [facility] [address] [place] [address] * Platelet P2Y12 Receptor Blockade, Verify Now PRU (02/16/2025 8:15 PM EDT) P2Y12 PRU 251 194 - 418 PRU 02/16/2025 8:50 PM EDT [facility] Blood Venous blood specimen / Unknown Venipuncture / Unknown 02/16/2025 8:15 PM EDT 02/16/2025 8:37 PM EDT Narrative [facility] - 02/16/2025 8:50 PM EDT P2Y12 [...] to the clinician. Testing performed in the [facility] for Special Coagulation. us Alexsandra Cooper APRN, JESSE LAB BLOOD ORDERABLES Bianca l Result Performing Organization Address City/[facility]/ZIP Co de Phone Number [facility] [address] [place] [address] * Lactic acid, plasma (02/16/2025 8:15 PM EDT) Lactate, Plasma 1.1 0.5 - 2.2 mmol/L 02/16/2025 9:17 PM EDT [facility] Blood Venous blood specimen / Unknown Venipuncture / Unknown 02/16/2025 8:15 PM EDT 02/16/2025 8:36 PM EDT us Alexsandra Cooper APRN, DNP LAB BLOOD ORDERABLES Bianca l Result Performing Organization Address [facility]/RUST de Phone Number [facility] [address] [place] [address] * (ABNORMAL) Lipid panel (02/16/2025 8:15 PM EDT) Cholesterol, Plasma 123 <200 mg/dL 02/16/2025 10:24 PM EDT [facility] Comment: Cholesterol Reference Range (age >17 years): Desirable <200 mg/dL Borderline 200 to 239 mg/dL Undesirable >239 mg/dL HDL 29(L) >=40 mg/dL 02/16/2025 10:24 PM EDT [facility] Comment: HDL Cholesterol Reference Ranges (age >17 years): Female, acceptable > or = 50 mg/dL Male, acceptable > or = 40 mg/dL Triglycerides, Plasma 91 <150 mg/dL 02/16/2025 10:24 PM EDT [facility] Comment: Triglyceride Reference Range (age >17 years): Desirable: <150 mg/dL Borderline high: 150 to 199 mg/dL High: 200 to 499 mg/dL Very high: >499 mg/dL Increased risk of pancreatitis: >1000 mg/dL Cholesterol/HDL Ratio 4 02/16/2025 10:24 PM EDT [facility] LDL, Calculated 76 <100 mg/dL 10:24 PM EDT [facility] Comment: LDL Cholesterol Reference Range (age [...] 12 hours? Unknown 02/16/2025 10:24 PM EDT [facility] Blood Venous blood specimen / Unknown Venipuncture / Unknown 02/16/2025 8:15 PM EDT 02/16/2025 8:26 PM EDT us Alexsandra Cooper APRN, DNP LAB BLOOD ORDERABLES Bianca l Result Performing Organization Address City/[facility]/ZIP Co de Phone Number [facility] [address] [place] [address] * (ABNORMAL) TSH Reflex FT4 (02/16/2025 7:36 PM EDT) Thyroid Stimulating Hormone, Plasma 5.67(H) 0.40 - 4.20 uIU/mL 02/16/2025 8:21 PM EDT [facility] Blood Venous blood specimen / Unknown Venipuncture / Unknown 02/16/2025 7:36 PM EDT 02/16/2025 7:44 PM EDT us Alexsandra Cooper APRN, DNP LAB BLOOD ORDERABLES Bianca l Result [facility] [address] [place] [address] * (ABNORMAL) Prealbumin, Plasma (02/16/2025 7:36 PM EDT) Prealbumin, Plasma 14.6(L) 20.0 - 41.0 mg/dL 02/16/2025 8:19 PM EDT [facility] Blood Venous blood specimen / Unknown Venipuncture / Unknown 02/16/2025 7:36 PM EDT 02/16/2025 7:44 PM EDT Alexsandra Cooper APRN, DNP LAB BLOOD ORDERABLES Bianca l Result Performing Organization Address [facility] [place] [address] * Hemoglobin A1c (02/16/2025 7:36 PM EDT) Hemoglobin A1c 5.5 <5.7 % 02/16/2025 8:48 PM EDT [facility] Blood Venous blood specimen / Unknown Venipuncture / Unknown 02/16/2025 7:36 PM EDT 02/16/2025 7:44 PM EDT Narrative [facility] - 02/16/2025 8:48 PM EDT HA1C Interpretive Data: Diagnosis of Diabetes: Diabetic > or = 6.5% Pre-diabetic 5.7 to 6.4% Non-diabetic < or = 5.6% Glycemic Targets for Type I and Type II Diabetics: Non- Adults <7.0% Adults <6.0% Children and Adolescents <7.5% Source: [place] [employer]. Standards of medical care in diabetes,2017. Diabetes Care.2017:40 (suppl 1):S1-S135. Alexsandra Cooper APRN, [facility] LAB BLOOD ORDERABLES Bianca l Result Performing Organization Address City/[facility] [place] [address] * CT OUTSIDE IMAGES (02/15/2025 11:54 AM EDT) Anatomical Region Laterality Modality Computed Tomogra phy 02/15/2025 11:5 4 AM EDT Ysabel Christopher YEAST CULTURE DEVELOPER IMG CT PROCEDURES Bianca l Result * [...] Nubia ging 02/13/2025 4:55 PM EDT us Alexia Nelson YEAST CULTURE DEVELOPER IMG XR PROCEDURES Final Re sult from Last 3 Months Additional Health Concerns Active Problems Noted Date Diagnosed Date Autogenerated Problem 03/25/2025 Insurance [facility] MEDICARE [facility] MEDICAID Advance Directives * Full Code (Latest [...] 7:33 PM 02/21/2025 9:54 PM Care Teams Shipping Weigher Relationship Specialty Start Date End Date Kiera Castro APRN [address] [place] [address] PCP - General 02/17/25
--- OUTSIDE RECORDS SUMMARY | 2025-05-13 13:41 | XMS_ITS | Encounter Summary ---
Author Organization Healthcare Address [address] [place] [address] Care Team Providers Care Shoulder Joiner Name Role Phone Kiera Castro APRN Primary Care Provider [phone] Lucero Stafford LPN Unavailable Unavailable Reason for Visit * Reason Comments TCM Call Encounter Details Date Type Department Care Team (Late Contact Info) Description 04/06/2025 Patient Outreach POPULATION HEALTH [address] [facility] [place] [address] Lucero Stafford LPN VALUE-[employer]ED [place] [address] TCM Call Social History Tobacco Use Types [...] living in a fdc (including now)? No 04/06/2025 Utilities Answer Date Recorded In the past 12 months has th e [employer], gas, oil, or water company threatened to [...] or increased pain. States he quit smoking. [facility] has not been out and reports he [...] nurse call. Action: Reviewed upcoming appointments in [facility] with patient during nurse call. Call placed to [facility]. Spoke with Trent, she states patient did telehealth appointment with them on 04/01/2025 and has a follow up appointment scheduled on 04/08/2025 at 11:30 with their provider. Bijusilvestre states she will have wound care supplies sent to patient MARK and will reach out to patient to make him aware. This nurse called patient back and made him aware [facility] would be calling him and sending wound care supplies out MARK. This nurse also [facility] [...] dated 03/31/2025: Patient has been referred to [facility] In- Home Wound Care; RNCMcontacted agency regarding plan for discharge to home today. Williams Rubin with [facility] confirms that documentation has been received, and [facility] has approved this in-home care. documented in this encounter Plan of Treatment Upcoming Encounters Date Type Department Care Team (Late st Contact Info) Description 08/03/2025 12:40 PM EDT Office Visit [facility] [place] [address] [place] [address] Dimitrios Wright MD [address] [place] [address] documented as of this encounter Goals Goal [...] documented as of this encounter Care Teams Shoulder Joiner Relationship Specialty Start Date End Date Kiera Castro APRN [address] [place] [address] PCP - General 02/17/25 Lucero Stafford LPN VALUE[employer]ED [place] [address] TCM Nurse 04/01/25 05/01/25 documented as of this encounter
--- OUTSIDE RECORDS SUMMARY | 2025-05-13 13:41 | XMS_ITS | Encounter Summary ---
Author Organization Healthcare Address [address] [place] [address] Care Team Providers Care Passport Support Associate Name Role Phone Kiera Castro APRN Primary Care Provider [phone] Lucero Stafford LPN Unavailable Unavailable Reason for Visit * Reason Comments Follow-up Encounter Details Date Type Department Care Team (Late Contact Info) Description 04/08/2025 Patient Outreach POPULATION HEALTH [address] [facility] [place] [address] Lucero Stafford LPN [employer] [address] Follow-up Social History Tobacco Use Types Packs/Day [...] the past 12 months has th e [employer], gas, oil, or water company threatened to shut off services in your home? No 03/27/2025 Sex and Gender Information Value Date Recorded Sex Assigned at Not on file Legal Sex Male 8:34 PM EDT Gender Identity Not on file Sexual Orientation Not on file documented as of this encounter Miscellaneous Notes * Progress Notes - Lucero Stafford LPN - 04/08/2025 3:57 PM EDT 04/08/2025 [...] Description 08/03/2025 12:40 PM EDT Office Visit [facility] [place] [facility] [address] [place] [address] Dimitrios Wright MD [address] [place] [address] documented as of this encounter Goals Goal [...] documented as of this encounter Care Teams Passport Support Associate Relationship Specialty Start Date End Date Kiera Castro APRN [address] [place] [address] PCP - General 02/17/25 Lucero Stafford LPN [employer] [address] TCM Nurse 04/01/25 05/01/25 documented as of this encounter
--- OUTSIDE RECORDS SUMMARY | 2025-05-13 13:41 | XMS_ITS | Encounter Summary ---
Author Organization Healthcare Address [address] [place] [address] Care Team Providers Care Public Information Coordinator Name Role Phone Matthew Kiera Whitmore APRN Primary Care Provider [phone] Encounter Details Date Type Department Care Team [...] any time in the past 12 m [facility], were you homeless or living in a care home (including now)? No 03/16/2025 Utilities Answer Date [...] Description 08/03/2025 12:40 PM EDT Office Visit [facility] [place] [facility] [address] [facility] [place] [address] Dimitrios Wright MD [address] [place] [address] documented as of this encounter Goals Goal [...] documented as of this encounter Care Teams Public Information Coordinator Relationship Specialty Start Date End Date Kiera Castro, MARKET RELATIONSHIP MANAGER [address] [place] [address] PCP - General 02/17/25 documented as of this encounter
--- OUTSIDE RECORDS SUMMARY | 2025-05-13 13:41 | XMS_ITS | Encounter Summary ---
Author Organization Healthcare Address [address] [place] [address] Care Team Providers Care Time Broker Name Role Phone Kiera Castro APRN Primary Care Provider [phone] Lucero Stafford LPN Unavailable Unavailable Reason for Visit * Reason Comments TCM Call Encounter Details Date Type Department Care Team (Late Contact Info) Description 04/02/2025 Patient Outreach POPULATION HEALTH [address] [facility], [address] [place] [address] Lucero Stafford LPN VALUE[employer] [place] [address] TCM Call Social History Tobacco Use Types [...] any time in the past 12 m [facility], were you homeless or living in a nursing home (including now)? No 03/27/2025 Utilities Answer Date Recorded In the past 12 months has th e [employer], gas, oil, or water company threatened to [...] 03/31/2025: Patient has been referred to [facility] Home Wound Care; RNCMcontacted agency regarding plan for discharge to home today. Williams Rubin with [employer] confirms that documentation has been received, and [facility] has approved this in-home care. documented in this encounter Plan of Treatment Upcoming Encounters Date Type Department Care Team (Late st Contact Info) Description 08/03/2025 12:40 PM EDT Office Visit [facility] [place] [address] [place] [address] Dimitrios Wright MD [address] [place] [address] documented as of this encounter Goals Goal [...] documented as of this encounter Care Teams Time Broker Relationship Specialty Start Date End Date Kiera Castro APRN [address] [place] [address] PCP - General 02/17/25 Lucero Stafford LPN [employer] [place] [address] TCM Nurse 04/01/25 05/01/25 documented as of this encounter
--- OUTSIDE RECORDS SUMMARY | 2025-05-13 13:41 | XMS_ITS | Encounter Summary ---
Author Organization Healthcare Address [address] [place] [address] Care Team Providers Care Epic Prelude Analyst Name Role Phone Matthew Kiera Whitmore APRN Primary Care Provider [phone] Encounter Details Date Type Department Care Team [...] were you homeless or living in a custodial (including now)? No 03/16/2025 Utilities Answer Date [...] Description 08/03/2025 12:40 PM EDT Office Visit [facility] [place] [address] [facility] [place] [address] Dimitrios Wright MD [address] [place] [address] documented as of this encounter Visit Diagnoses Not on filedocumented in this encounter Additional Health Concerns Assessment Noted Time A Body Mass Index follow-up plan has been documented for the patient 03/17/2025 12:38 PM EDT documented as of this encounter Care Teams Epic Prelude Analyst Relationship Specialty Start Date End Date Kiera Castro APRN [address] [place] [address] PCP - General 02/17/25 documented as of this encounter
--- OUTSIDE RECORDS SUMMARY | 2025-05-13 13:42 | XMS_ITS | Encounter Summary ---
Author Organization Healthcare Address [address] [place] [address] Care Team Providers Care School Bus Mechanic Name Role Phone Matthew Kiera Whitmore APRN Primary Care Provider [phone] Lucero Stafford LPN Unavailable Unavailable Encounter Details Date Type Department Care Team (Late st Contact Info) Description 02/22/2025 Lab Requisition [facility] [address] [place] [address] Sohail Alex MD [address] [place] [address] Encounter for general adult medical [...] any time in the past 12 m [facility], were you homeless or living in a prison (including now)? No 02/17/2025 Utilities Answer Date [...] Description 08/03/2025 12:40 PM EDT Office Visit [facility] [place] [address] [place] [address] Dimitrios Wright MD [address] [place] [phone] documented as of this encounter Procedures Procedure Name Priority Date/Time Associated Diagnosis Comments MULTI DRUG RESISTANCE TEST Routine 02/22/2025 11:00 AM EDT Encounter for general adult medical examination without abnormal findings documented in this encounter Results * Multi Drug Resistance Test (02/22/2025 11:00 AM EDT) Culture No growth at day 1 02/23/2025 9:05 AM EDT [facility] Swab (Nares and Leslie Rectal) 02/22/2025 11:00 AM EDT 02/22/2025 11:49 AM EDT us Sohail Alex MD LAB MICROBIOLOGY - GEN ERAL ORDERABLES Final Result [facility] [address] [place] [address] documented in this encounter Visit Diagnoses Diagnosis Encounter for general adult medical examination without abnormal findings documented in this encounter Additional Health Concerns Assessment Noted Time A Body Mass Index follow-up plan has been documented for the patient 03/02/2025 1:29 PM EDT documented as of this encounter Care Teams School Bus Mechanic Relationship Specialty Start Date End Date Kiera Castro APRN [address] [place] [address] PCP - General 02/17/25 Lucero Stafford LPN [employer] [address] TCM Nurse 04/01/25 05/01/25 documented as of this encounter
--- OUTSIDE RECORDS SUMMARY | 2025-05-13 13:42 | XMS_ITS | Encounter Summary ---
Author Organization Healthcare Address [address] [place] [address] Care Team Providers Care Firer Helper Name Role Phone Kiera Castro APRN Primary Care Provider [phone] Encounter Details Date Type Department Care Team (Late st Contact Info) Description 03/12/2025 Orders Only External Location [address] [place] [address] Provider, External Social History Tobacco Use Types [...] any time in the past 12 m [facility], were you homeless or living in [...] Description 08/03/2025 12:40 PM EDT Office Visit [facility] [place] [facility] [address] [place] [address] Dimitrios Wright MD [address] [place] [address] documented as of this encounter Procedures Procedure [...] documented as of this encounter Care Teams Firer Helper Relationship Specialty Start Date End Date Kiera Castro APRN [address] [place] [id number] PCP - General 02/17/25 documented as of this encounter
--- OUTSIDE RECORDS SUMMARY | 2025-05-13 13:42 | XMS_ITS | Encounter Summary ---
Author Organization Healthcare Address [address] [place] [address] Care Team Providers Care Boat Crew Deck Hand Name Role Phone Matthew Kiera Whitmore APRN Primary Care Provider [phone] Encounter Details Date Type Department Care Team [...] any time in the past [address] [facility], were you homeless or living in a halfway (including now)? No 03/16/2025 Utilities Answer Date [...] Description 08/03/2025 12:40 PM EDT Office Visit [facility] [place] [address] [facility] [place] [address] Dimitrios Wright MD [address] [place] [address] documented as of this encounter Visit Diagnoses Not on filedocumented in this encounter Additional Health Concerns Assessment Noted Time A Body Mass Index follow-up plan has been documented for the patient 03/17/2025 12:38 PM EDT documented as of this encounter Care Teams Boat Crew Deck Hand Relationship Specialty Start Date End Date Kiera Castro APRN [address] [place] [address] PCP - General 02/17/25 documented as of this encounter
--- OUTSIDE RECORDS SUMMARY | 2025-05-13 13:42 | XMS_ITS | Encounter Summary ---
Author Organization Healthcare Address [address] [place] [address] Care Team Providers Care Butcher Supervisor Name Role Phone Matthew Kiera Whitmore APRN Primary Care Provider [phone] Encounter Details Date Type Department Care Team [...] time in the past 12 m [facility], were you homeless or living in a residential (including now)? No 02/17/2025 Utilities Answer Date [...] Description 08/03/2025 12:40 PM EDT Office Visit [facility] [place] [facility] [address] [facility] [place] [address] Dimitrios Wright MD [address] [place] [address] documented as of this encounter Visit Diagnoses Not on filedocumented in this encounter Additional Health Concerns Assessment Noted Time A Body Mass Index follow-up plan has been documented for the patient 03/17/2025 12:38 PM EDT documented as of this encounter Care Teams Butcher Supervisor Relationship Specialty Start Date End Date Kiera Castro APRN [address] [place] [address] PCP - General 02/17/25 documented as of this encounter
--- OUTSIDE RECORDS SUMMARY | 2025-05-13 13:42 | XMS_ITS | Encounter Summary ---
Author Organization Healthcare Address [address] [place] [address] Care Team Providers Care Laborer Gold Leaf Name Role Phone Matthew Kiera Whitmore APRN Primary Care Provider [phone] Encounter Details Date Type Department Care Team [...] any time in the past 12 m [facility], were you homeless or living in a [place] [facility] facility (including now)? No 03/16/2025 Utilities Answer Date [...] Description 08/03/2025 12:40 PM EDT Office Visit [facility] [place] [address] [facility] [place] [address] Dimitrios Wright MD [address] [place] [address] documented as of this encounter Visit Diagnoses Not on filedocumented in this encounter Additional Health Concerns Assessment Noted Time A Body Mass Index follow-up plan has been documented for the patient 03/17/2025 12:38 PM EDT documented as of this encounter Care Teams Laborer Gold Leaf Relationship Specialty Start Date End Date Kiera Castro APRN [address] [place] [address] PCP - General 02/17/25 documented as of this encounter
--- NOTE | 2025-05-13 13:45 | CA_ITS ---
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 M-Mode Dimensions RVDd 2.37 cm (0.9-2.6) LA Diam 3.79 cm (1.9-4.0) LVDd 6.70 cm (3.5-5.7) LVDs 4.81 cm (3.5-5.7) IVSd 0.92 cm (0.6-1.1) PWd 0.92 cm (0.6-1.1) EF (Teich) 53.30% FS 28.20% EDV (Teich) 231.40 mL TAPSE 2.37 (<1.7) ESV (Teich) 108.00 mL LV Diastology E Decel Time 177 (160-240 msec) E/A Ratio 1.6 Aortic Valve PETE Index 0.98 cm2/m2 AoV Peak Joao. 203.0 (50-130 cm/s) AO Peak GR. 16.50 mmHg AO Mean GR. 8.20 (<5 mmHg) AO VTI 48.2 (18-25 cm) PETE (VTI) 2.24 (2.5-4.5 cm2) Mitral Valve MV E Max Joao. 119.0 (40-130 cm/s) MV A Velocity 73.0 (40-130 cm/s) E/A Ratio 1.62 MV PHT 52.0 ms Left Ventricle The left ventricle is normal size. The left ventricular systolic function is mildly reduced. There is increased LV wall thickness. There is mild global hypokinesis present. Grade 1 diastolic dysfunction is present. LVEF is 45%. Right Ventricle The right ventricle is normal size. The right ventricular systolic function is normal. Atria The left atrium is mildly dilated. The right atrium size is normal. There is no Doppler evidence of interatrial shunt. 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 The prosthesis is well-seated. Peak velocity 1.5 m/s. Mean AV gradient 6 mmHg. Max AV gradient 9 mmHg. Trace aortic regurgitation is present. Mitral Valve The mitral valve leaflets are mildly thickened. Mild to moderate mitral regurgitation is present. The MR jet is eccentric and may be underestimated on TTE. Tricuspid Valve Tricuspid valve is grossly normal in structure and function. Trace tricuspid regurgitation. There is insufficient TR jet to estimate RVSP. Pulmonic Valve The pulmonary valve is normal in structure. Trace pulmonic regurgitation. Great Vessels The aortic root is normal in size. IVC is normal in size and collapses >50% with inspiration. Pericardium There is no pericardial effusion. Other Information Study Quality: Fair Conclusion Mildly reduced LV systolic function (LVEF 45%). Mild LA dilation. s/p bioprosthetic AVR. Acceptable AV gradients. No significant AI. Mild to moderate mitral regurgitation is present. The MR jet is eccentric and may be underestimated on TTE. Electronically signed by : Terri Joiner MD 05/18/2025 00:11:36
== END 2025-05-13 23:59 | disposition home or self-care (01) ==
LOC: RT 13:36
PROVIDERS: PCP Nurse Practitioner Family; Visit Provider Physician Assistant
DX: I34.0 Nonrheumatic mitral (valve) insufficiency (principal); I11.0 Hypertensive heart disease with heart failure; I50.20 Unspecified systolic (congestive) heart failure; I48.0 Paroxysmal atrial fibrillation; I25.10 Atherosclerotic heart disease of native coronary artery without angina pectoris; R93.1 Abnormal findings on diagnostic imaging of heart and coronary circulation; Z95.3 Presence of xenogenic heart valve
CPT/HCPCS: 93306

== ENCOUNTER 2025-05-26 16:16 | Outpatient (CLI) | payer MEDICARE, OTHER, SELFPAY ==
--- OUTSIDE RECORDS SUMMARY | 2025-03-25 03:17 | XMS_ITS | Encounter Summary ---
Author Organization Healthcare Address [address] [place] [address] Care Team Providers Care Driver Examiner Name Role Phone Kiera Castro APRN Primary Care Provider [phone] Reason for Referral * Consultation (Routine) - Authorized Specialty Diagnoses / Procedures Referred By Contac t Referred To Contact Gastroenterology Diagnoses Duodenal ulcer Sirena Hopkins MD [address] [place] [address] Phone: tel: fax: [facility] Endoscopy [address] [place] [address] Phone: tel: Referral ID Status Reason Start Date Expiration Date Visits Requested Visits Authorized [id number] Authorized Specialty Services Required 03/31/2025 09/30/2026 1 1 * Consultation (Routine) - Authorized Specialty Diagnoses / Procedures Referred By Contac t Referred To Contact Cardiology Diagnoses Persistent atrial fibrillation (CMS/HCC) Sirena Hopkins MD [address] [place] [address] Phone: tel: fax: Referral ID Status Reason Start Date Expiration Date Visits Requested Visits Authorized [id number] Authorized Specialty Services Required 03/31/2025 09/30/2026 1 1 * Consultation (Routine) - Authorized Specialty Diagnoses / Procedures Referred By Contac t Referred To Contact Family Medicine Diagnoses Upper GI bleeding Sirena Hopkins MD [address] [place] [address] Phone: tel: fax: Referral ID Status Reason Start Date Expiration Date V isits Requested Visits Authorized [id number] Authorized 03/31/2025 09/30/2026 1 1 Reason for Visit * Reason Comments Chest Pain Weakness - Generalized Post-op Problem * Auth/Cert (Routine) Specialty Diagnoses / Procedures Referred By Contac t Referred To Contact Diagnoses Upper GI bleeding Acute GI bleeding Generalized weakness Severe anemia Low Hemoglobin, status post CABG Iliana Carpenter MD [address] [place] [address] Phone: tel: fax: [facility] Inpatient [address] [place] [address] Phone: tel: Referral ID Status Reason Start Date Expiration Date Visits Re quested Visits Authorized [id number] 1 1 Encounter Details Date Type Department Care Team (Latest Contact Info) Description 03/25/2025 3:17 AM EDT - 03/31/2025 12:30 PM EDT Hospital Encounter [facility] Inpatient [address] [place] [address] Gretchen Hidalgo MD [address] [place] [address] Iliana Carpenter MD [address] [place] [address] Yin Christopher MD [address] [place] [address] Sirena Hopkins MD [address] [place] [address] Acute GI bleeding (Primary Dx); [...] any time in the past [facility], were you homeless or living in a snf (including now)? No 04/06/2025 Utilities Answer Date Recorded In the past 12 months has th e [employer], [employer], or [employer] threatened to shut off services in your [...] needed for pain, headaches or fever. Under [facility] law, monthly prescriptions (30 days) can be [...] 90 tablet 2 03/17/2025 03/17/20 26 mometasone-formot radah (Dulera 100) 100-5 MCG/ACT inhaler Inhale 2 [...] meals and nightly. 1200 mL 03/31/2025 Tiotropium [place] Monohydrate (Spiriva Respimat) 2.5 MCG/ACT inhaler Inhale [...] MD PCP name and Address: Kiera Castro, WASTE MACHINE OFFBEARER [address] / [place] [address] Referring provider name and address: Bianca Rinaldi MD [address] [place] [address] Chief Concern, Brief History of Present Illness, [...] needed for pain, headaches or fever. Under [place] law, monthly prescriptions (30 days) can be [...] a day before meals and nightly. Tiotropium [place] Monohydrate 2.5 MCG/ACT inhaler Commonly known as: Spiriva Respimat Inhale 2 puffs daily. Where to Get Your Medications These medications were sent to [facility] - [place], [place] - [address] [facility] [id number] oxyCODONE 5 MG immediate release tablet pantoprazole [...] Addendum 02/22/2025 7:41 AM by Madelin Bruce, WASTE MACHINE OFFBEARER - Atorvastatin 80 mg nightly HTN (hypertension) Overview Addendum 02/24/2025 3:41 PM by Ramandeep Sunshine APRN - Resume home medications as appropriate - required nitroglycerin gtt shortly post-op for SBP < 120 - Metop 12.5 TID COPD (chronic obstructive pulmonary disease) ([facility]) Overview Addendum 02/24/2025 3:43 PM by Ramandeep Sunshine APRN - on atrovent/ pep therapy GERD (gastroesophageal reflux disease) Overview Addendum 02/22/2025 7:40 AM by Madelin Bruce, WASTE MACHINE OFFBEARER - Pepcid BID Heart failure with mid-range ejection fraction (HFmEF) ([facility]) Overview Addendum 02/22/2025 7:41 AM by Madelin Bruce, WASTE MACHINE OFFBEARER - Echo 4-7-25 [facility]: EF 45% - post-op EF 50% S/P [...] Time Provider Department Center 04/21/2025 11:30 AM [facility] 04/21/2025 12:30 PM Lata Sahu MD [facility] 08/03/2025 12:40 PM Dimitrios Wright MD CARD[facility] Test Results Pending At Discharge [...] Note Shelly Nelson 64 y.o. male CSN: [id number] Admission: 03/25/2025 3:17 AM Primary Problem: Upper GI bleeding Dr Hopkins confirms that patient is medically ready to discharge to home today. RNCM met with patientat bedside to confirm discharge goals and concerns. Mr Nelson confirms that he remains ambulatory and will discharge to his sister's home (Ailyn [place], [place] [address], ), prior to return to own home. He sister had been providing would care prior to this admission, and will continue to do so upon return to her home. Patient has been referred to [facility]Home [facility]ound [facility]; RNCM contacted agency regarding plan for discharge to home today. Williams Atwood with [facility] confirms that documentation has been received, and [facility] has approved this in-home care. RNCM advised patient at bedside of this information, Ms Najera per telephone, and entered into AVS instructions. Patient's brother will provide transport home today, and family will provide transport to follow upappointments. No other needs or concerns identified at this time. Primary Family Educator: Primary Caregiver: Self (planning to DC to sisters home initally :Ailyn Najera (Sister) ) Assistance Available at Discharge: Current Outpatient/Agency/Support Group: clinic(s), DME Availability of Care Givers (#Hours): 24 hours (Plans to discharge to sister's home (Ailyn Espinosa)initially, then return to own home;) Family/Family Educator(s) Willingness Assessed to care for patient at home: Yes Family/Family Educator(s) Readiness Assessed to care for patient at home: Yes Housing Circumstances-Z Codes: Housing Circumstances (select all that apply): Low Income (101-300% Federal Poverty Guidlines) - Z596 Patient Referred to Financial or Community Resources: None. Discharge Facility/Level of Care Needs: Discharge Facility/Level of Care Needs: 1-Home or Self Care [facility]/Family Anticipated Services at Transition: Patient/Family Anticipated Services at Transition: outpatient care ([facility]) DME/Equipment Needed after [...] Rinaldi MD [address] [place] [phone] [facility] End[facility] [address] [facility] [address] [facility] TEL: [phone] Follow up Provider will call to schedule home visits for wound assessment. Follow up appointments entered into [facility] by providers will be found in patient's After Visit Summary (AVS). At times, Clinics call patients following discharge to schedule follow up. Scheduled appointment(s) currently found in discharge teaching (AVS): Apr 21, 2025 11:30 AM LAB with [facility] OR Clinic Lab ([facility]) [address], [address] Floor Wing [address] [facility] [address] Please bring any insurance information and a copayment if required by your insurance company. Apr 21, 2025 12:30 PM Post-op with Lata Sahu MD [facility] ([facility]) Arrive at: Cardiothoracic Surgery at [facility] [address], [address] [facility] [address] Please bring any insurance information and a copayment if required by your insurance company. Aug 03, 2025 12:40 PM (Arrive by 12:20 PM) Consultation with Dimitrios Wright MD [facility] ([facility]) Arrive at: [facility] [address] [facility] [address] Please bring any insurance information and a [...] Note Kyleveronica Nelson 64 y.o. male CSN: [id number] Room/Bed 605/605I Nutrition evaluation type: follow-up Reason for evaluation: [...] g, Oral, Before meals & nightly Tiotropium [place] Monohydrate, 2 puff, Inhalation, Daily PRN medications: [...] (204 lb 9.4 oz) BMI (Calculated): 28.55 [place] Body Weight (kg): 78.2 Percent [place] Body Weight: 119 Wt Readings from Last [...] Provided: Will monitor Pertinent home medications: Reviewed. Roman Catholic needs: Nutrition Focused Physical Exam: Physical exam [...] Cervical radiculopathy COPD (chronic obstructive pulmonary disease) ([facility]) Coronary artery disease GERD (gastroesophageal reflux disease) Heart valve disease Hypertension On mechanically assisted ventilation ([facility]) 02/21/2025 Intubated for procedure, arrived to [...] a suspected GI bleed. Patient [facility] yesterday after a near- [...] abdominal pain, fever, gastrointestinal bleeding and 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 - Findings and recommendations were discussed with patient. - Target hgb >7 g/dL, - Hold AC/AP for anticipated 2 weeks; has CTS f/u early April to resume, patient in agreement #Gluteal abscess (POA) Patient was admitted to [facility] 03/11/2025 - 03/12/2025. 03/12/2025 CT showed RIGHT [...] (BMI 25 - 29.9) Sirena Hopkins MD [facility] Chat Preferred [phone] Medically Ready for Discharge:Anticipated Today * Care [...] Note Shelly Nelson 64 y.o. male CSN: [id number] Admission: 03/25/2025 3:17 AM Primary Problem: Upper GI bleeding Anticipated Discharge Date: By end of week, 04/03. Has Discharge Plans Changed? No: At this time, anticipate discharge to patient's sister's home (Ailyn Najera) where assistance, up to 24 hour, can be provided. Patient has been referred to [facility] for in home would care clinic. Ailyn [...] HTN (hypertension) COPD (chronic obstructive pulmonary disease) ([facility]) GERD (gastroesophageal reflux disease) Heart failure with mid-range ejection fraction (HFmEF) ([facility]) S/P CABG x 4 Iron deficiency [...] abdominal pain, fever, gastrointestinal bleeding and 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 - Findings and recommendations were discussed with patient. - Target hgb >7 g/dL, #Pseudohypocalcemia - Calcium 8.1, albumin 2.7; corrected zane 10.1 #Gluteal abscess (POA) Patient was admitted to [facility] 03/11/2025 - 03/12/2025. 03/12/2025 CT showed RIGHT [...] quit smoking post CABG Dr. Yin Christopher timber management professor Hospitalist Medicine This dictation was prepared [...] HTN (hypertension) COPD (chronic obstructive pulmonary disease) ([facility]) GERD (gastroesophageal reflux disease) Heart failure with mid-range ejection fraction (HFmEF) ([facility]) S/P CABG x 4 Iron deficiency [...] abdominal pain, fever, gastrointestinal bleeding and 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 - Findings and recommendations were discussed with patient. - Target hgb >7 g/dL, #Pseudohypocalcemia - Calcium 8.1, albumin 2.7; corrected zane 10.1 Plan -Ionized Calcium with am lab 03/24 #Gluteal abscess (POA) Patient was admitted to [facility] 03/11/2025 - 03/12/2025. 03/12/2025 CT showed RIGHT [...] Note Shelly Nelson 64 y.o. male [facility]: [id number] Admission: 03/25/2025 3:17 AM Primary Problem: Upper GI bleeding Wool Shearer reviewed chart and spoke with patient to complete this Initial Case Management Assessment. PCP: Kiera Castro APRN Emergency Contact: Extended Emergency Contact Information Primary Emergency Contact: Ailyn Najera Mobile Relation: Sister Slurry Tank Operator needed? No Secondary Emergency Contact: Hussain Nelson Mobile Relation: Brother Preferred language: Greenlandic Slurry Tank Operator needed? No Insurance: Primary Visit Coverage Payer Plan Sponsor Code Group Number Group Name [facility] MEDICARE [facility] MEDICARE [place]PLACEMENT [id number] Dual Complete Primary Visit Coverage Subscriber Subscriber ID Subscriber Name Subscriber [facility] Subscriber Address [id number] Shelly Nelson Jr [id number] [place] [address] Secondary Visit Coverage Payer Plan Sponsor Code Group Number Group Name [facility] MEDICAID [facility] MEDICAID [place] Secondary Visit Coverage Subscriber Subscriber ID Subscriber Name Subscriber [facility] Subscriber Address [id number] Shelly Nelson Jr [phone] [place] [address] Patient information: Primary Caregiver: Self (planning to DC to sisters home initally :Ailyn Najera (Sister) ) Support System: Immediate family (Ailyn Najera (Sister) : sometimes stay with sister) additional family/ friends available to help at home . Mr. Nelson is planning to initially go home with Ms. Najera on discharge : [address] [place] [address] Daily Living Activities: Functional Status: Independent Living Arrangements: Alone Type of Residence: Single Level (ten steps to enter front of house; one step to enter side of house.) Mr. Nelson'stiven home address : [place] [address] Smoker in the Home?: No Current DME: Equipment Currently Used at Home: walker, rollator Income Information: Income Source: Retired Current Resources Utilized: None Housing Circumstances-Z Codes: Housing Circumstances (select all that apply): Low Income (101-300% Federal Poverty Guidlines) - Z596 Patient Referred to: 03/25/25 : Preliminary referral for wound care (Clinical documents and demographics faxed ([phone]) to : [facility]: a in home wound care provider. Liaison: Williams Atwood ;[phone], Anticipated Discharge Date: TBD Patient's Discharge Goal: home Assistance Available at Discharge: Ailyn Najera (Sister) Plus additional family/friends. Has 24 hour initial assistance available at home on discharge. Discharge Transport: DaniaAilyn (Sister) Follow Up Transport: Self/family/friend Home Health / Home Infusion / Outpatient Dialysis Services: none Living Will/Advance Directive/Power of Slab Inspector /Guardian: Have you reviewed your Advance [...] abdominal pain, fever, gastrointestinal bleeding and 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 - Findings and recommendations were discussed with patient. - Target hgb >7 g/dL, #Pseudohypocalcemia - Calcium 8.1, albumin 2.7; corrected zane 10.1 Plan -Ionized Calcium with am lab 03/24 #Gluteal abscess (POA) Patient was admitted to [facility] 03/11/2025 - 03/12/2025. 03/12/2025 CT showed RIGHT [...] Heart failure with mid-range ejection fraction (HFmEF) ([facility]) S/P CABG x 4 Iron deficiency [...] abdominal pain, fever, gastrointestinal bleeding and 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 - Findings and recommendations were discussed with patient. - Target hgb >7 g/dL, #Pseudohypocalcemia - Calcium 8.1, albumin 2.7; corrected zane 10.1 Plan -Ionized Calcium with am lab 03/24 #Gluteal abscess (POA) Patient was admitted to [facility] 03/11/2025 - 03/12/2025. 03/12/2025 CT showed RIGHT [...] smoking post CABG * Progress Notes - Voilet Chavez RN - 03/26/2025 2:12 PM EDT Case Management Adult Progress Note Shelly Nelson 64 y.o. male CSN: [id number] Admission: 03/25/2025 3:17 AM Primary Problem: Upper GI bleeding Anticipated Discharge Date: 03/29/25 Preliminary referral for wound care (Clinical documents and demographics faxed ([phone]) to : [facility]: a in home wound care provider. Liaison: Williams Atwood ;[phone], Additional Comments Violet Chavez RN * Care [...] 03/25/2025 3:00 PM Wound Image Wound Assessment Red;Levering;Painful Margins Well-defined edges Leslie-Wound Assessment Blanchable erythema [...] 0908 Apply/Change Wound Dressing Coccyx Other (Comments) ([facility]) Routine Active Iliana Carpenter MD - Dressing [...] from the original note were not included. [address] Endoscopy Unit: Caring for Yourself after an [...] will be available in the patient portal, [employer]. Or you can call the doctor who [...] for the Endoscopy Fellow on-call. * [facility] - Merlyn Centeno RN - 03/25/2025 3:58 PM EDT Images from the original note were not included. [address] Anesthesia: General Anesthesia You?re due to have [...] medicines you take. This includes prescription and dada-ork-gncqxyk medicines. It also includes vitamins, herbs, and [...] safe. Last Reviewed Date: 2024 00:00:00 ?? [id number] The [employer]. All rights reserved. This information is not intended as a substitute for professional medical care. Always follow your healthcare professional's instructions. * Consults - Taylor Santiago RD - 03/25/2025 11:55 AM EDTAssociated Order(s): IP CONSULT TO NUTRITION SERVICES Adult Nutrition Evaluation Note Shelly Nelson 64 y.o. male CSN: [id number] Room/Bed 605/605A Nutrition evaluation type: assessment Reason [...] (98.3 ??F) Oxygen Therapy: None (Room air) Traver Coma Scale Score: 15 Reyes Scale Score: [...] PRN Sodium Hypochlorite, , Topical, BID Tiotropium [place] Monohydrate, 2 puff, Inhalation, Daily PRN medications: [...] (208 lb 15.9 oz) BMI (Calculated): 29.16 [place] Body Weight (kg): 78.2 Percent [place] Body Weight: 121 Wt Readings from Last [...] Provided: Will monitor Pertinent home medications: Reviewed. Roman Catholic needs: Nutrition Focused Physical Exam: Physical exam [...] Cervical radiculopathy COPD (chronic obstructive pulmonary disease) ([facility]) Coronary artery disease GERD (gastroesophageal reflux disease) Heart valve disease Hypertension On mechanically assisted ventilation ([facility]) 02/21/2025 Intubated for procedure, arrived to [...] for suspected GI bleed. Patient presented [facility] yesterday after a near- [...] q12h Sodium Hypochlorite, , Topical, BID Tiotropium [place] Monohydrate, 2 puff, Inhalation, Daily Medications (continous): [...] melena. Lo Qiu DO PGY-4 Gastroenterology Fellow [facility] [1] Past 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: Diagnosis Date Abnormal ECG BPH (benign prostatic hyperplasia) Cervical radiculopathy COPD (chronic obstructive pulmonary disease) ([facility]) Coronary artery disease GERD (gastroesophageal reflux disease) Heart valve disease Hypertension On mechanically assisted ventilation ([facility]) 02/21/2025 Intubated for procedure, arrived to [...] HTN (hypertension) COPD (chronic obstructive pulmonary disease) ([facility]) GERD (gastroesophageal reflux disease) Heart failure with mid-range ejection fraction (HFmEF) ([facility]) S/P CABG x 4 Iron deficiency anemia [...] #Gluteal abscess (POA) Patient was admitted to [facility] 03/11/2025 - 03/12/2025. 03/12/2025 CT showed RIGHT [...] sodium chloride, 10 mL, Intravenous, q12h Tiotropium [place] Monohydrate, 2 puff, Inhalation, Daily Continuous: As [...] Time Provider Department Center 03/31/2025 12:00 PM [facility] 03/31/2025 1:[address] [facility] Ramez Cordoba APRN, DNP [1] Past 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: Diagnosis Date Abnormal ECG BPH (benign prostatic hyperplasia) Cervical radiculopathy COPD (chronic obstructive pulmonary disease) ([facility]) Coronary artery disease GERD (gastroesophageal reflux disease) Heart valve disease Hypertension On mechanically assisted ventilation ([facility]) 02/21/2025 Intubated for procedure, arrived to [...] and oriented to person, place, and time. Traver Coma Scale Score: 15 ED Course & [...] Continuous Order ID Start Status Ordering Provider [id number] 03/25/25 032 Completed GRETCHEN HIDALGO [id number] 03/25/25 0800 Acknowledged GRETCHEN HIDALGO [id number] 03/25/251999 Acknowledged GWEN, GRETCHEN B 03/26/25 0800 [...] None Disposition Admit Admitting/Attending Physician: ILIANA CARPENTER [[id number]] Provider Care Team: SAY DEJESUS 16 [[id number]] [...] Cervical radiculopathy COPD (chronic obstructive pulmonary disease) ([facility]) Coronary artery disease GERD (gastroesophageal reflux disease) Heart valve disease Hypertension On mechanically assisted ventilation ([facility]) 02/21/2025 Intubated for procedure, arrived to [...] Description 08/03/2025 12:40 PM EDT Office Visit [facility] [address] [place] [address] Dimitrios Wright MD [address] [place] [address] Pending Results Name Type Priority Associated Diagnoses [...] - 2.4 mg/dL 03/31/2025 4:57 AM EDT [facility] Blood Venous blood specimen / Unknown Venipuncture / Unknown 03/31/2025 4:17 AM EDT 03/31/2025 4:27 AM EDT us Yin Christopher MD LAB BLOOD ORDERABLES Fi nal Result [facility] [address] [place] [address] * (ABNORMAL) Comprehensive Metabolic Panel, Plasma (03/31/2025 4:17 AM EDT) Glucose, Plasma 125(H) 74 - 99 mg/dL 03/31/2025 4:57 AM EDT [facility] BUN, Plasma 28(H) 8 - 23 mg/dL 03/31/2025 4:57 AM EDT [facility] Creatinine, Plasma 0.72 0.70 - 1.20 mg/dL 03/31/2025 4:57 AM EDT [facility] BUN/Creatinine Ratio 39 03/31/2025 4:57 AM EDT [facility] Sodium, Plasma 136 136 - 145 mmol/L 03/31/2025 4:57 AM EDT [facility] Potassium, Plasma 4.1 3.6 - 4.9 mmol/L 03/31/2025 4:57 AM EDT [facility] Chloride, Plasma 106 97 - 107 mmol/L 03/31/2025 4:57 AM EDT [facility] CO2, Plasma 22 22 - 29 mmol/L 03/31/2025 4:57 AM EDT [facility] Anion Gap 8 6 - 16 mmol/L 03/31/2025 4:57 AM EDT [facility] Total Calcium, Plasma 8.1(L) 8.9 - 10.2 mg/dL 03/31/2025 4:57 AM EDT [facility] Total Protein 5.0(L) 6.3 - 7.9 g/dL 03/31/2025 4:57 AM EDT [facility] Albumin, Plasma 2.8(L) 3.5 - 5.2 g/dL 03/31/2025 4:57 AM EDT [facility] AST, Plasma 24 10 - 50 U/L 03/31/2025 4:57 AM EDT [facility] ALT, Plasma 14 10 - 50 U/L 03/31/2025 4:57 AM EDT [facility] Alkaline Phosphatase, Plasma 106 40 - 115 U/L 03/31/2025 4:57 AM EDT [facility] Total Bilirubin, Plasma 0.3 0.2 - 1.1 mg/dL 03/31/2025 4:57 AM EDT [facility] eGFRcr 100.8 mL/min/1.7 3m*2 03/31/2025 4:57 AM EDT [facility] Comment:Reported eGFRcr in m L/min/1.73m2 is based the CKD-EPI 2020 equation that does not use a race coefficient. Blood Venous blood specimen / Unknown Venipuncture / Unknown 03/31/2025 4:17 AM EDT 03/31/2025 4:27 AM EDT Yin Christopher MD LAB BLOOD ORDERABLES Fi nal Result [facility] [facility] [address] [place] [address] * (ABNORMAL) CBC and Differential (03/31/2025 4:17 AM EDT) WBC Count 5.55 3.70 - 10.30 10*3/uL LAB HEMATOLOGY METHOD 03/31/2025 4:41 AM EDT [facility] RBC Count 2.57(L) 4.60 - 6.10 10*6/uL LAB HEMATOLOGY METHOD 03/31/2025 4:41 AM EDT [facility] HGB 7.6(L) 13.7 - 17.5 g/dL LAB HEMATOLOGY METHOD 03/31/2025 4:41 AM EDT [facility] HCT 24.7(L) 40.0 - 51.0 % LAB HEMATOLOGY METHOD 03/31/2025 4:41 AM EDT [facility] Platelet Count 218 155 - 369 10*3/uL LAB HEMATOLOGY METHOD 03/31/2025 4:41 AM EDT [facility] MCV 96 79 - 98 fL LAB HEMATOLOGY METHOD 03/31/2025 4:41 AM EDT [facility] MCH 29.6 26.0 - 32.0 pg LAB HEMATOLOGY METHOD 03/31/2025 4:41 AM EDT [facility] MCHC 30.8 30.7 - 35.5 g/dL LAB HEMATOLOGY METHOD 03/31/2025 4:41 AM EDT [facility] RDW 19.1(H) 11.5 - 14.5 % LAB HEMATOLOGY METHOD 03/31/2025 4:41 AM EDT [facility] MPV 10.4 8.8 - 12.5 fL LAB HEMATOLOGY METHOD 03/31/2025 4:41 AM EDT [facility] nRBC 0.0 <=0.0 per 100 WBCs LAB HEMATOLOGY METHOD 03/31/2025 4:41 AM EDT [facility] Differential Type Automated LAB HEMATOLOGY METHOD 03/31/2025 4:41 AM EDT [facility] Neutrophils % 43 % LAB HEMATOLOGY METHOD 03/31/2025 4:41 AM EDT [facility] Lymphocytes % 46 % LAB HEMATOLOGY METHOD 03/31/2025 4:41 AM EDT [facility] Monocytes % 6 % LAB HEMATOLOGY METHOD 03/31/2025 4:41 AM EDT [facility] Eosinophils % 3 % LAB HEMATOLOGY METHOD 03/31/2025 4:41 AM EDT [facility] Basophils % 1 % LAB HEMATOLOGY METHOD 03/31/2025 4:41 AM EDT [facility] Immature Granulocytes % 1 % LAB HEMATOLOGY METHOD 03/31/2025 4:41 AM EDT [facility] Neutrophils Absolute 2.41 1.60 - 6.10 10*3/uL LAB HEMATOLOGY METHOD 03/31/2025 4:41 AM EDT [facility] Lymphocytes Absolute 2.53 1.20 - 3.90 10*3/uL LAB HEMATOLOGY METHOD 03/31/2025 4:41 AM EDT [facility] Monocytes Absolute 0.33 0.30 - 0.90 10*3/uL LAB HEMATOLOGY METHOD 03/31/2025 4:41 AM EDT [facility] Eosinophils Absolute 0.17 0.00 - 0.50 10*3/uL LAB HEMATOLOGY METHOD 03/31/2025 4:41 AM EDT [facility] Basophils Absolute 0.05 0.00 - 0.10 10*3/uL LAB HEMATOLOGY METHOD 03/31/2025 4:41 AM EDT [facility] Immature Granulocytes Absolute 0.06 0.00 - 0.06 10*3/uL LAB HEMATOLOGY METHOD 03/31/2025 4:41 AM EDT [facility] Blood Venous blood specimen / Unknown Venipuncture / Unknown 03/31/2025 4:17 AM EDT 03/31/2025 4:29 AM EDT Narrative [facility] - 03/31/2025 4:41 AM EDT Therapeutic decision making should be based on absolute values, rather than percentages. Yin Christopher MD LAB BLOOD ORDERABLES Fi nal Result [facility] [address] [place] [address] * (ABNORMAL) CBC and Differential (03/30/2025 4:52 AM EDT) WBC Count 5.70 3.70 - 10.30 10*3/uL LAB HEMATOLOGY METHOD 03/30/2025 5:29 AM EDT [facility] RBC Count 2.69(L) 4.60 - 6.10 10*6/uL LAB HEMATOLOGY METHOD 03/30/2025 5:29 AM EDT [facility] HGB 7.8(L) 13.7 - 17.5 g/dL LAB HEMATOLOGY METHOD 03/30/2025 5:29 AM EDT [facility] HCT 25.7(L) 40.0 - 51.0 % LAB HEMATOLOGY METHOD 03/30/2025 5:29 AM EDT [facility] Platelet Count 199 155 - 369 10*3/uL LAB HEMATOLOGY METHOD 03/30/2025 5:29 AM EDT [facility] MCV 96 79 - 98 fL LAB HEMATOLOGY METHOD 03/30/2025 5:29 AM EDT [facility] MCH 29.0 26.0 - 32.0 pg LAB HEMATOLOGY METHOD 03/30/2025 5:29 AM EDT [facility] MCHC 30.4(L) 30.7 - 35.5 g/dL LAB HEMATOLOGY METHOD 03/30/2025 5:29 AM EDT [facility] RDW 19.3(H) 11.5 - 14.5 % LAB HEMATOLOGY METHOD 03/30/2025 5:29 AM EDT [facility] MPV 10.5 8.8 - 12.5 fL LAB HEMATOLOGY METHOD 03/30/2025 5:29 AM EDT [facility] nRBC 0.0 <=0.0 per 100 WBCs LAB HEMATOLOGY METHOD 03/30/2025 5:29 AM EDT [facility] Differential Type Automated LAB HEMATOLOGY METHOD 03/30/2025 5:29 AM EDT [facility] Neutrophils % 43 % LAB HEMATOLOGY METHOD 03/30/2025 5:29 AM EDT [facility] Lymphocytes % 43 % LAB HEMATOLOGY METHOD 03/30/2025 5:29 AM EDT [facility] Monocytes % 8 % LAB HEMATOLOGY METHOD 03/30/2025 5:29 AM EDT [facility] Eosinophils % 3 % LAB HEMATOLOGY METHOD 03/30/2025 5:29 AM EDT [facility] Basophils % 1 % LAB HEMATOLOGY METHOD 03/30/2025 5:29 AM EDT [facility] Immature Granulocytes % 2 % LAB HEMATOLOGY METHOD 03/30/2025 5:29 AM EDT [facility] Neutrophils Absolute 2.47 1.60 - 6.10 10*3/uL LAB HEMATOLOGY METHOD 03/30/2025 5:29 AM EDT [facility] Lymphocytes Absolute 2.47 1.20 - 3.90 10*3/uL LAB HEMATOLOGY METHOD 03/30/2025 5:29 AM EDT [facility] Monocytes Absolute 0.47 0.30 - 0.90 10*3/uL LAB HEMATOLOGY METHOD 03/30/2025 5:29 AM EDT [facility] Eosinophils Absolute 0.15 0.00 - 0.50 10*3/uL LAB HEMATOLOGY METHOD 03/30/2025 5:29 AM EDT [facility] Basophils Absolute 0.04 0.00 - 0.10 10*3/uL LAB HEMATOLOGY METHOD 03/30/2025 5:29 AM EDT [facility] Immature Granulocytes Absolute 0.10(H) 0.00 - 0.06 10*3/uL LAB HEMATOLOGY METHOD 03/30/2025 5:29 AM EDT [facility] Blood Venous blood specimen / Unknown Venipuncture / Unknown 03/30/2025 4:52 AM EDT 03/30/2025 5:06 AM EDT [facility] - 03/30/2025 5:29 AM EDT Therapeutic decision making should be based on absolute values, rather than percentages. Yin Christopher MD LAB BLOOD ORDERABLES Fi nal Result [facility] [address] [place] [address] * (ABNORMAL) Comprehensive Metabolic Panel, Plasma (03/30/2025 4:52 AM EDT) Glucose, Plasma 90 74 - 99 mg/dL 03/30/2025 5:36 AM EDT [facility] BUN, Plasma 28(H) 8 - 23 mg/dL 03/30/2025 5:36 AM EDT [facility] Creatinine, Plasma 0.70 0.70 - 1.20 mg/dL 03/30/2025 5:36 AM EDT [facility] BUN/Creatinine Ratio 40 03/30/2025 5:36 AM EDT [facility] Sodium, Plasma 136 136 - 145 mmol/L 03/30/2025 5:36 AM EDT [facility] Potassium, Plasma 4.3 3.6 - 4.9 mmol/L 03/30/2025 5:36 AM EDT [facility] Chloride, Plasma 105 97 - 107 mmol/L 03/30/2025 5:36 AM EDT [facility] CO2, Plasma 22 22 - 29 mmol/L 03/30/2025 5:36 AM EDT [facility] Anion Gap 9 6 - 16 mmol/L 03/30/2025 5:36 AM EDT [facility] Total Calcium, Plasma 8.1(L) 8.9 - 10.2 mg/dL 03/30/2025 5:36 AM EDT [facility] Total Protein 4.9(L) 6.3 - 7.9 g/dL 03/30/2025 5:36 AM EDT [facility] Albumin, Plasma 2.5(L) 3.5 - 5.2 g/dL 03/30/2025 5:36 AM EDT [facility] AST, Plasma 22 10 - 50 U/L 03/30/2025 5:36 AM EDT [facility] ALT, Plasma 13 10 - 50 U/L 03/30/2025 5:36 AM EDT [facility] Alkaline Phosphatase, Plasma 83 40 - 115 U/L 03/30/2025 5:36 AM EDT [facility] Total Bilirubin, Plasma 0.5 0.2 - 1.1 mg/dL 03/30/2025 5:36 AM EDT [facility] eGFRcr 101.6 mL/min/1.7 3m*2 03/30/2025 5:36 AM EDT [facility] Comment:Reported eGFRcr in m L/min/1.73m2 is based the CKD-EPI 2020 equation that does not use a race coefficient. Blood Venous blood specimen / Unknown Venipuncture / Unknown 03/30/2025 4:52 AM EDT 03/30/2025 5:04 AM EDT Yin Christopher MD LAB BLOOD ORDERABLES Fi nal Result Performing Organization Address City/[facility]/ZIP Co de Phone Number [facility] [address] [place] [address] * (ABNORMAL) Magnesium, Plasma (03/30/2025 4:52 AM EDT) Magnesium, Plasma 1.8(L) 1.9 - 2.4 mg/dL 03/30/2025 5:36 AM EDT [facility] Blood Venous blood specimen / Unknown Venipuncture / Unknown 03/30/2025 4:52 AM EDT 03/30/2025 5:04 AM EDT iYn Christopher MD LAB BLOOD ORDERABLES Fi nal Result [facility] [address] [place] [address] * Phosphorus, Plasma (03/30/2025 4:52 AM EDT) Phosphorus, Plasma 3.3 2.5 - 4.5 mg/dL 03/30/2025 5:36 AM EDT [facility] Blood Venous blood specimen / Unknown Venipuncture / Unknown 03/30/2025 4:52 AM EDT 03/30/2025 5:04 AM EDT Yin Christopher MD LAB BLOOD ORDERABLES Fi nal Result Performing Organization Address City/[facility]/ZIP Co de Phone Number [facility] [address] [place] [address] * Transfuse RBC (03/29/2025 12:59 PM EDT) Yin Christopher MD BLOOD TRANSFUSION ORDER CASTILLO Final Result * Transfuse RBC: 1 Units (03/29/2025 12:59 PM EDT) Yin Christopher MD BLOOD TRANSFUSION ORDER CASTILLO Final Result * Prepare Leukocyte Reduced RBC: 1 Units (03/29/2025 8:37 AM EDT) Product Code [id number] CH BLOO D BANK Dispense Status Transfused BLOOD BANK Blood Expiration Date [id number] BLOOD BANK Unit Number [id number] CH B LOOD BANK Product Blood Type 5100 BLOOD BANK Blood Type O+ BLOOD BANK Crossmatch Compatible BLOOD BANK Other Yin Christopher MD BLOOD BANK PRODUCT ORDE RABLES Final Result Performing Organization Address City/[facility] Co de Phone Number BLOOD BANK [address] [place] [address], * Type and screen (03/29/2025 6:05 AM [...] ORDERA BLES Final Result BLO[facility] BANK [address] [place] [address], * (ABNORMAL) CBC and Differential (03/29/2025 3:21 AM EDT) WBC Count 5.89 3.70 - 10.30 10*3/uL LAB HEMATOLOGY METHOD 03/29/2025 4:15 AM EDT [facility] RBC Count 2.22(L) 4.60 - 6.10 10*6/uL LAB HEMATOLOGY METHOD 03/29/2025 4:15 AM EDT [facility] HGB 6.5(L) 13.7 - 17.5 g/dL LAB HEMATOLOGY METHOD 03/29/2025 4:15 AM EDT [facility] HCT 21.5(L) 40.0 - 51.0 % LAB HEMATOLOGY METHOD 03/29/2025 4:15 AM EDT [facility] Platelet Count 197 155 - 369 10*3/uL LAB HEMATOLOGY METHOD 03/29/2025 4:15 AM EDT [facility] MCV 97 79 - 98 fL LAB HEMATOLOGY METHOD 03/29/2025 4:15 AM EDT [facility] MCH 29.3 26.0 - 32.0 pg LAB HEMATOLOGY METHOD 03/29/2025 4:15 AM EDT [facility] MCHC 30.2(L) 30.7 - 35.5 g/dL LAB HEMATOLOGY METHOD 03/29/2025 4:15 AM EDT [facility] RDW 20.8(H) 11.5 - 14.5 % LAB HEMATOLOGY METHOD 03/29/2025 4:15 AM EDT [facility] MPV 10.9 8.8 - 12.5 fL LAB HEMATOLOGY METHOD 03/29/2025 4:15 AM EDT [facility] nRBC 0.0 <=0.0 per 100 WBCs LAB HEMATOLOGY METHOD 03/29/2025 4:15 AM EDT [facility] Differential Type Automated LAB HEMATOLOGY METHOD 03/29/2025 4:15 AM EDT [facility] Neutrophils % 48 % LAB HEMATOLOGY METHOD 03/29/2025 4:15 AM EDT [facility] Lymphocytes % 40 % LAB HEMATOLOGY METHOD 03/29/2025 4:15 AM EDT [facility] Monocytes % 8 % LAB HEMATOLOGY METHOD 03/29/2025 4:15 AM EDT [facility] Eosinophils % 2 % LAB HEMATOLOGY METHOD 03/29/2025 4:15 AM EDT [facility] Basophils % 1 % LAB HEMATOLOGY METHOD 03/29/2025 4:15 AM EDT [facility] Immature Granulocytes % 1 % LAB HEMATOLOGY METHOD 03/29/2025 4:15 AM EDT [facility] Neutrophils Absolute 2.82 1.60 - 6.10 10*3/uL LAB HEMATOLOGY METHOD 03/29/2025 4:15 AM EDT [facility] Lymphocytes Absolute 2.36 1.20 - 3.90 10*3/uL LAB HEMATOLOGY METHOD 03/29/2025 4:15 AM EDT [facility] Monocytes Absolute 0.49 0.30 - 0.90 10*3/uL LAB HEMATOLOGY METHOD 03/29/2025 4:15 AM EDT [facility] Eosinophils Absolute 0.14 0.00 - 0.50 10*3/uL LAB HEMATOLOGY METHOD 03/29/2025 4:15 AM EDT [facility] Basophils Absolute 0.03 0.00 - 0.10 10*3/uL LAB HEMATOLOGY METHOD 03/29/2025 4:15 AM EDT [facility] Immature Granulocytes Absolute 0.05 0.00 - 0.06 10*3/uL LAB HEMATOLOGY METHOD 03/29/2025 4:15 AM EDT [facility] Blood Venous blood specimen / Unknown Venipuncture / Unknown 03/29/2025 3:21 AM EDT 03/29/2025 4:03 AM EDT [facility] - 03/29/2025 4:15 AM EDT Therapeutic decision making should be based on absolute values, rather than percentages. Yin Christopher MD LAB BLOOD ORDERABLES Fi nal Result [facility] [address] [place] [address] * (ABNORMAL) Comprehensive Metabolic Panel, Plasma (03/29/2025 3:21 AM EDT) Glucose, Plasma 112(H) 74 - 99 mg/dL 03/29/2025 4:34 AM EDT [facility] BUN, Plasma 34(H) 8 - 23 mg/dL 03/29/2025 4:34 AM EDT [facility] Creatinine, Plasma 0.75 0.70 - 1.20 mg/dL 03/29/2025 4:34 AM EDT [facility] BUN/Creatinine Ratio 45 03/29/2025 4:34 AM EDT [facility] Sodium, Plasma 135(L) 136 - 145 mmol/L 03/29/2025 4:34 AM EDT [facility] Potassium, Plasma 4.3 3.6 - 4.9 mmol/L 03/29/2025 4:34 AM EDT [facility] Chloride, Plasma 104 97 - 107 mmol/L 03/29/2025 4:34 AM EDT [facility] CO2, Plasma 22 22 - 29 mmol/L 03/29/2025 4:34 AM EDT [facility] Anion Gap 9 6 - 16 mmol/L 03/29/2025 4:34 AM EDT [facility] Total Calcium, Plasma 7.8(L) 8.9 - 10.2 mg/dL 03/29/2025 4:34 AM EDT [facility] Total Protein 4.8(L) 6.3 - 7.9 g/dL 03/29/2025 4:34 AM EDT [facility] Albumin, Plasma 2.6(L) 3.5 - 5.2 g/dL 03/29/2025 4:34 AM EDT [facility] AST, Plasma 28 10 - 50 U/L 03/29/2025 4:34 AM EDT [facility] Comment:Hemolyzed, result ma y be falsely increased. ALT, Plasma 14 10 - 50 U/L 03/29/2025 4:34 AM EDT [facility] Alkaline Phosphatase, Plasma 77 40 - 115 U/L 03/29/2025 4:34 AM EDT [facility] Total Bilirubin, Plasma 0.4 0.2 - 1.1 mg/dL 03/29/2025 4:34 AM EDT [facility] eGFRcr 99.5 mL/min/1.7 3m*2 03/29/2025 4:34 AM EDT [facility] Comment:Reported eGFRcr in m L/min/1.73m2 is based the CKD-EPI 2020 equation that does not use a race coefficient. Blood Venous blood specimen / Unknown Venipuncture / Unknown 03/29/2025 3:21 AM EDT 03/29/2025 4:03 AM EDT us Yin Christopher MD LAB BLOOD ORDERABLES Fi nal Result Performing Organization Address City/[facility] Co de Phone Number [facility] [address] [place] [address] * Magnesium, Plasma (03/29/2025 3:21 AM EDT) Magnesium, Plasma 2.1 1.9 - 2.4 mg/dL 03/29/2025 4:34 AM EDT [facility] Blood Venous blood specimen / Unknown Venipuncture / Unknown 03/29/2025 3:21 AM EDT 03/29/2025 4:03 AM EDT us Yin Christopher MD LAB BLOOD ORDERABLES Fi nal Result Performing Organization Address City/[facility]/ZIP Co de Phone Number [facility] [address] [place] [address] * Phosphorus, Plasma (03/29/2025 3:21 AM EDT) Phosphorus, Plasma 2.9 2.5 - 4.5 mg/dL 03/29/2025 4:34 AM EDT [facility] Blood Venous blood specimen / Unknown Venipuncture / Unknown 03/29/2025 3:21 AM EDT 03/29/2025 4:03 AM EDT us Yin Christopher MD LAB BLOOD ORDERABLES Fi nal Result [facility] [address] [place] [address] * Helicobacter pylori Antigen (03/28/2025 4:18 PM EDT) Helicobacter pylori Antigen Result Negative Negative 03/28/2025 5:39 PM EDT [facility] Stool Rectum structure / Unknown Non-blood Collection / Unknown 03/28/2025 4:18 PM EDT 03/28/2025 4:33 PM EDT Yin Christopher MD LAB MICROBIOLOGY - GENE RAL ORDERABLES Final Result Performing Organization Address [facility]/ZIP Co de Phone Number [facility] [address] [place] [address] * (ABNORMAL) Occult Blood, Fecal by Immunoassay (SO) (03/28/2025 4:18 PM EDT) Occult Blood, Fecal Immunosay Interpretation Positive( A) 03/31/2025 10:15 AM EDT [facility] ([facility]) Stool Non-blood Collection / Unknown 03/28/2025 4:18 PM EDT 03/28/2025 4:27 PM EDT Narrative [facility] ([facility]) - 03/31/2025 10:15 AM EDT INTERPRETIVE INFORMATION: Fecal Occult Blood by Immunoassay No single cutoff provides superior colorectal cancer detection rates. The test safety pin assembling machine operator recommends the use of a 100 ng/mL cutoff that produces a specificity of approximately 95 percent for the detection of lower gastrointestinal bleeding. This test does not detect upper gastrointestinal bleeding. Performed By: [employer] [address] [place] [id number] Neckties Painter: Wilfrid Carr MD, PhD CLIA Number: [id number] us Ramez Cordoba APRN, DNP LAB REF LAB BLOOD AND FLUID ORD Final Result Performing Organization Address City/[facility]/ZIP Co de Phone Number [facility] ([employer]) [address] [place] [phone] * (ABNORMAL) CBC W/O Differential (03/28/2025 12:15 PM EDT) WBC Count 6.21 3.70 - 10.30 10*3/uL LAB HEMATOLOGY METHOD 03/28/2025 12:29 PM EDT [facility] RBC Count 2.38(L) 4.60 - 6.10 10*6/uL LAB HEMATOLOGY METHOD 03/28/2025 12:29 PM EDT [facility] HGB 7.0(L) 13.7 - 17.5 g/dL LAB HEMATOLOGY METHOD 03/28/2025 12:29 PM EDT [facility] HCT 22.6(L) 40.0 - 51.0 % LAB HEMATOLOGY METHOD 03/28/2025 12:29 PM EDT [facility] Platelet Count 215 155 - 369 10*3/uL LAB HEMATOLOGY METHOD 03/28/2025 12:29 PM EDT [facility] MCV 95 79 - 98 fL LAB HEMATOLOGY METHOD 03/28/2025 12:29 PM EDT [facility] MCH 29.4 26.0 - 32.0 pg LAB HEMATOLOGY METHOD 03/28/2025 12:29 PM EDT [facility] MCHC 31.0 30.7 - 35.5 g/dL LAB HEMATOLOGY METHOD 03/28/2025 12:29 PM EDT [facility] RDW 21.1(H) 11.5 - 14.5 % LAB HEMATOLOGY METHOD 03/28/2025 12:29 PM EDT [facility] MPV 10.3 8.8 - 12.5 fL LAB HEMATOLOGY METHOD 03/28/2025 12:29 PM EDT [facility] nRBC 0.0 <=0.0 per 100 WBCs LAB HEMATOLOGY METHOD 03/28/2025 12:29 PM EDT [facility] Blood Venous blood specimen / Unknown Venipuncture / Unknown 03/28/2025 12:15 PM EDT 03/28/2025 12:22 PM EDT us Yin Christopher MD LAB BLOOD ORDERABLES Fi nal Result [facility] [address] [place] [address] * (ABNORMAL) CBC and Differential (03/28/2025 5:18 AM EDT) WBC Count 4.69 3.70 - 10.30 10*3/uL LAB HEMATOLOGY METHOD 03/28/2025 5:50 AM EDT [facility] RBC Count 2.41(L) 4.60 - 6.10 10*6/uL LAB HEMATOLOGY METHOD 03/28/2025 5:50 AM EDT [facility] HGB 7.0(L) 13.7 - 17.5 g/dL LAB HEMATOLOGY METHOD 03/28/2025 5:50 AM EDT [facility] HCT 23.1(L) 40.0 - 51.0 % LAB HEMATOLOGY METHOD 03/28/2025 5:50 AM EDT [facility] Platelet Count 209 155 - 369 10*3/uL LAB HEMATOLOGY METHOD 03/28/2025 5:50 AM EDT [facility] MCV 96 79 - 98 fL LAB HEMATOLOGY METHOD 03/28/2025 5:50 AM EDT [facility] MCH 29.0 26.0 - 32.0 pg LAB HEMATOLOGY METHOD 03/28/2025 5:50 AM EDT [facility] MCHC 30.3(L) 30.7 - 35.5 g/dL LAB HEMATOLOGY METHOD 03/28/2025 5:50 AM EDT [facility] RDW 20.9(H) 11.5 - 14.5 % LAB HEMATOLOGY METHOD 03/28/2025 5:50 AM EDT [facility] MPV 10.2 8.8 - 12.5 fL LAB HEMATOLOGY METHOD 03/28/2025 5:50 AM EDT [facility] nRBC 0.0 <=0.0 per 100 WBCs LAB HEMATOLOGY METHOD 03/28/2025 5:50 AM EDT [facility] Differential Type Automated LAB HEMATOLOGY METHOD 03/28/2025 5:50 AM EDT [facility] Neutrophils % 51 % LAB HEMATOLOGY METHOD 03/28/2025 5:50 AM EDT [facility] Lymphocytes % 38 % LAB HEMATOLOGY METHOD 03/28/2025 5:50 AM EDT [facility] Monocytes % 6 % LAB HEMATOLOGY METHOD 03/28/2025 5:50 AM EDT [facility] Eosinophils % 3 % LAB HEMATOLOGY METHOD 03/28/2025 5:50 AM EDT [facility] Basophils % 1 % LAB HEMATOLOGY METHOD 03/28/2025 5:50 AM EDT [facility] Immature Granulocytes % 1 % LAB HEMATOLOGY METHOD 03/28/2025 5:50 AM EDT [facility] Neutrophils Absolute 2.41 1.60 - 6.10 10*3/uL LAB HEMATOLOGY METHOD 03/28/2025 5:50 AM EDT [facility] Lymphocytes Absolute 1.79 1.20 - 3.90 10*3/uL LAB HEMATOLOGY METHOD 03/28/2025 5:50 AM EDT [facility] Monocytes Absolute 0.30 0.30 - 0.90 10*3/uL LAB HEMATOLOGY METHOD 03/28/2025 5:50 AM EDT [facility] Eosinophils Absolute 0.12 0.00 - 0.50 10*3/uL LAB HEMATOLOGY METHOD 03/28/2025 5:50 AM EDT [facility] Basophils Absolute 0.03 0.00 - 0.10 10*3/uL LAB HEMATOLOGY METHOD 03/28/2025 5:50 AM EDT [facility] Immature Granulocytes Absolute 0.04 0.00 - 0.06 10*3/uL LAB HEMATOLOGY METHOD 03/28/2025 5:50 AM EDT [facility] Blood Venous blood specimen / Unknown Venipuncture / Unknown 03/28/2025 5:18 AM EDT 03/28/2025 5:39 AM EDT Narrative [facility] - 03/28/2025 5:50 AM EDT Therapeutic decision making should be based on absolute values, rather than percentages. us Yin Christopher MD LAB BLOOD ORDERABLES Fi nal Result [facility] [address] [place] [address] * (ABNORMAL) Comprehensive Metabolic Panel, Plasma (03/28/2025 5:18 AM EDT) [facility] Glucose, Plasma 115(H) 74 - 99 mg/dL 03/28/2025 6:12 AM EDT [facility] BUN, Plasma 28(H) 8 - 23 mg/dL 03/28/2025 6:12 AM EDT [facility] Creatinine, Plasma 0.72 0.70 - 1.20 mg/dL 03/28/2025 6:12 AM EDT [facility] BUN/Creatinine Ratio 39 03/28/2025 6:12 AM EDT [facility] Sodium, Plasma 136 136 - 145 mmol/L 03/28/2025 6:12 AM EDT [facility] Potassium, Plasma 4.1 3.6 - 4.9 mmol/L 03/28/2025 6:12 AM EDT [facility] Chloride, Plasma 105 97 - 107 mmol/L 03/28/2025 6:12 AM EDT [facility] CO2, Plasma 22 22 - 29 mmol/L 03/28/2025 6:12 AM EDT [facility] Anion Gap 9 6 - 16 mmol/L 03/28/2025 6:12 AM EDT [facility] Total Calcium, Plasma 8.0(L) 8.9 - 10.2 mg/dL 03/28/2025 6:12 AM EDT [facility] Total Protein 5.0(L) 6.3 - 7.9 g/dL 03/28/2025 6:12 AM EDT [facility] Albumin, Plasma 2.6(L) 3.5 - 5.2 g/dL 03/28/2025 6:12 AM EDT [facility] AST, Plasma 21 10 - 50 U/L 03/28/2025 6:12 AM EDT [facility] [facility] ALT, Plasma 15 10 - 50 U/L 03/28/2025 6:12 AM EDT [facility] Alkaline Phosphatase, Plasma 86 40 - 115 U/L 03/28/2025 6:12 AM EDT [facility] Total Bilirubin, Plasma 0.5 0.2 - 1.1 mg/dL 03/28/2025 6:12 AM EDT [facility] eGFRcr 100.8 mL/min/1.7 3m*2 03/28/2025 6:12 AM EDT [facility] Comment:Reported eGFRcr in m L/min/1.73m2 is based the CKD-EPI 2020 equation that does not use a race coefficient. Blood Venous blood specimen / Unknown Venipuncture / Unknown 03/28/2025 5:18 AM EDT 03/28/2025 5:38 AM EDT Yin Christopher MD LAB BLOOD ORDERABLES Fi nal Result [facility] [address] [place] [address] * Magnesium, Plasma (03/28/2025 5:18 AM EDT) Magnesium, Plasma 2.1 1.9 - 2.4 mg/dL 03/28/2025 6:12 AM EDT [facility] Blood Venous blood specimen / Unknown Venipuncture / Unknown 03/28/2025 5:18 AM EDT 03/28/2025 5:38 AM EDT Yin Christopher MD LAB BLOOD ORDERABLES Fi nal Result Performing Organization Address City/[facility]/[place] [address] * Phosphorus, Plasma (03/28/2025 5:18 AM EDT) Phosphorus, Plasma 2.9 2.5 - 4.5 mg/dL 03/28/2025 6:12 AM EDT [facility] Blood Venous blood specimen / Unknown Venipuncture / Unknown 03/28/2025 5:18 AM EDT 03/28/2025 5:38 AM EDT Yin Christopher MD LAB BLOOD ORDERABLES Fi nal Result [facility] [address] [place] [address] * (ABNORMAL) Hemoglobin and Hematocrit, Blood (03/28/2025 12:32 AM EDT) HGB 7.1(L) 13.7 - 17.5 g/dL LAB HEMATOLOGY METHOD 03/28/2025 1:01 AM EDT [facility] HCT 22.7(L) 40.0 - 51.0 % LAB HEMATOLOGY METHOD 03/28/2025 1:01 AM EDT [facility] Blood Venous blood specimen / Unknown Venipuncture / Unknown 03/28/2025 12:32 AM EDT 03/28/2025 12:45 AM EDT us Ramezgucci Cordoba APRN, DNP LAB BLOOD ORDERAB LES Final Result Performing Organization Address City/[facility]/ZIP Co de Phone Number [facility] [address] [place] [address] * (ABNORMAL) Hemoglobin and Hematocrit, Blood (03/27/2025 6:11 PM EDT) HGB 7.5(L) 13.7 - 17.5 g/dL LAB HEMATOLOGY METHOD 03/27/2025 6:27 PM EDT [facility] HCT 23.6(L) 40.0 - 51.0 % LAB HEMATOLOGY METHOD 03/27/2025 6:27 PM EDT [facility] Blood Venous blood specimen / Unknown Venipuncture / Unknown 03/27/2025 6:11 PM EDT 03/27/2025 6:19 PM EDT us Ramezgucci Cordoba APRN, DNP LAB BLOOD ORDERAB LES Final Result [facility] [address] [place] [address] * (ABNORMAL) Hemoglobin and Hematocrit, Blood (03/27/2025 12:12 PM EDT) HGB 7.4(L) 13.7 - 17.5 g/dL LAB HEMATOLOGY METHOD 03/27/2025 12:28 PM EDT [facility] HCT 24.2(L) 40.0 - 51.0 % LAB HEMATOLOGY METHOD 03/27/2025 12:28 PM EDT [facility] Blood Venous blood specimen / Unknown Venipuncture / Unknown 03/27/2025 12:12 PM EDT 03/27/2025 12:21 PM EDT us Ramez N Arturoaldageorgetamanna WASTE MACHINE OFFBEARER, DNP LAB BLOOD ORDERAB LES Final Result [facility] [address] [place] [address] * (ABNORMAL) CBC and Differential (03/27/2025 5:55 AM EDT) WBC Count 4.84 3.70 - 10.30 10*3/uL LAB HEMATOLOGY METHOD 03/27/2025 6:32 AM EDT [facility] RBC Count 2.53(L) 4.60 - 6.10 10*6/uL LAB HEMATOLOGY METHOD 03/27/2025 6:32 AM EDT [facility] HGB 7.5(L) 13.7 - 17.5 g/dL LAB HEMATOLOGY METHOD 03/27/2025 6:32 AM EDT [facility] HCT 23.7(L) 40.0 - 51.0 % LAB HEMATOLOGY METHOD 03/27/2025 6:32 AM EDT [facility] Platelet Count 206 155 - 369 10*3/uL LAB HEMATOLOGY METHOD 03/27/2025 6:32 AM EDT [facility] MCV 94 79 - 98 fL LAB HEMATOLOGY METHOD 03/27/2025 6:32 AM EDT [facility] MCH 29.6 26.0 - 32.0 pg LAB HEMATOLOGY METHOD 03/27/2025 6:32 AM EDT [facility] MCHC 31.6 30.7 - 35.5 g/dL LAB HEMATOLOGY METHOD 03/27/2025 6:32 AM EDT [facility] RDW 21.2(H) 11.5 - 14.5 % LAB HEMATOLOGY METHOD 03/27/2025 6:32 AM EDT [facility] MPV 10.1 8.8 - 12.5 fL LAB HEMATOLOGY METHOD 03/27/2025 6:32 AM EDT [facility] nRBC 0.0 <=0.0 per 100 WBCs LAB HEMATOLOGY METHOD 03/27/2025 6:32 AM EDT [facility] Differential Type Automated LAB HEMATOLOGY METHOD 03/27/2025 6:32 AM EDT [facility] Neutrophils % 47 % LAB HEMATOLOGY METHOD 03/27/2025 6:32 AM EDT [facility] Lymphocytes % 40 % LAB HEMATOLOGY METHOD 03/27/2025 6:32 AM EDT [facility] Monocytes % 8 % LAB HEMATOLOGY METHOD 03/27/2025 6:32 AM EDT [facility] Eosinophils % 3 % LAB HEMATOLOGY METHOD 03/27/2025 6:32 AM EDT [facility] Basophils % 1 % LAB HEMATOLOGY METHOD 03/27/2025 6:32 AM EDT [facility] Immature Granulocytes % 1 % LAB HEMATOLOGY METHOD 03/27/2025 6:32 AM EDT [facility] Neutrophils Absolute 2.26 1.60 - 6.10 10*3/uL LAB HEMATOLOGY METHOD 03/27/2025 6:32 AM EDT [facility] Lymphocytes Absolute 1.94 1.20 - 3.90 10*3/uL LAB HEMATOLOGY METHOD 03/27/2025 6:32 AM EDT [facility] Monocytes Absolute 0.39 0.30 - 0.90 10*3/uL LAB HEMATOLOGY METHOD 03/27/2025 6:32 AM EDT [facility] Eosinophils Absolute 0.14 0.00 - 0.50 10*3/uL LAB HEMATOLOGY METHOD 03/27/2025 6:32 AM EDT [facility] Basophils Absolute 0.04 0.00 - 0.10 10*3/uL LAB HEMATOLOGY METHOD 03/27/2025 6:32 AM EDT [facility] Immature Granulocytes Absolute 0.07(H) 0.00 - 0.06 10*3/uL LAB HEMATOLOGY METHOD 03/27/2025 6:32 AM EDT [facility] Blood Venous blood specimen / Unknown Venipuncture / Unknown 03/27/2025 5:55 AM EDT 03/27/2025 6:23 AM EDT [facility] - 03/27/2025 6:32 AM EDT Therapeutic decision making should be based on absolute values, rather than percentages. Yin Christopher MD LAB BLOOD ORDERABLES Fi nal Result [facility] [address] [place] [address] * (ABNORMAL) Comprehensive Metabolic Panel, Plasma (03/27/2025 5:55 AM EDT) Glucose, Plasma 101(H) 74 - 99 mg/dL 03/27/2025 6:51 AM EDT [facility] BUN, Plasma 22 8 - 23 mg/dL 03/27/2025 6:51 AM EDT [facility] Creatinine, Plasma 0.73 0.70 - 1.20 mg/dL 03/27/2025 6:51 AM EDT [facility] BUN/Creatinine Ratio 30 03/27/2025 6:51 AM EDT [facility] Sodium, Plasma 135(L) 136 - 145 mmol/L 03/27/2025 6:51 AM EDT [facility] Potassium, Plasma 3.9 3.6 - 4.9 mmol/L 03/27/2025 6:51 AM EDT [facility] Chloride, Plasma 104 97 - 107 mmol/L 03/27/2025 6:51 AM EDT [facility] CO2, Plasma 21(L) 22 - 29 mmol/L 03/27/2025 6:51 AM EDT [facility] Anion Gap 10 6 - 16 mmol/L 03/27/2025 6:51 AM EDT [facility] Total Calcium, Plasma 8.0(L) 8.9 - 10.2 mg/dL 03/27/2025 6:51 AM EDT [facility] Total Protein 5.1(L) 6.3 - 7.9 g/dL 03/27/2025 6:51 AM EDT [facility] Albumin, Plasma 2.7(L) 3.5 - 5.2 g/dL 03/27/2025 6:51 AM EDT [facility] AST, Plasma 24 10 - 50 U/L 03/27/2025 6:51 AM EDT [facility] ALT, Plasma 18 10 - 50 U/L 03/27/2025 6:51 AM EDT [facility] Alkaline Phosphatase, Plasma 80 40 - 115 U/L 03/27/2025 6:51 AM EDT [facility] Total Bilirubin, Plasma 0.6 0.2 - 1.1 mg/dL 03/27/2025 6:51 AM EDT [facility] eGFRcr 100.3 mL/min/1.7 3m*2 03/27/2025 6:51 AM EDT [facility] Comment:Reported eGFRcr in m L/min/1.73m2 is based the CKD-EPI 2020 equation that does not use a race coefficient. Blood Venous blood specimen / Unknown Venipuncture / Unknown 03/27/2025 5:55 AM EDT 03/27/2025 6:22 AM EDT Yin Christopher MD LAB BLOOD ORDERABLES Fi nal Result Performing Organization Address City/[facility]/ZIP Co de Phone Number [facility] [address] [place] [address] * (ABNORMAL) Magnesium, Plasma (03/27/2025 5:55 AM EDT) Magnesium, Plasma 1.8(L) 1.9 - 2.4 mg/dL 03/27/2025 6:51 AM EDT [facility] Blood Venous blood specimen / Unknown Venipuncture / Unknown 03/27/2025 5:55 AM EDT 03/27/2025 6:22 AM EDT Yin Christopher MD LAB BLOOD ORDERABLES Fi nal Result [facility] [address] [place] [address] * Phosphorus, Plasma (03/27/2025 5:55 AM EDT) Phosphorus, Plasma 3.0 2.5 - 4.5 mg/dL 03/27/2025 6:51 AM EDT [facility] Blood Venous blood specimen / Unknown Venipuncture / Unknown 03/27/2025 5:55 AM EDT 03/27/2025 6:22 AM EDT us Yin Christopher MD LAB BLOOD ORDERABLES Fi nal Result Performing Organization Address City/[facility]/ZIP Co de Phone Number [facility] [address] [place] [address] * (ABNORMAL) Hemoglobin and Hematocrit, Blood (03/27/2025 5:55 AM EDT) HGB 7.5(L) 13.7 - 17.5 g/dL LAB HEMATOLOGY METHOD 03/27/2025 6:32 AM EDT [facility] HCT 23.7(L) 40.0 - 51.0 % LAB HEMATOLOGY METHOD 03/27/2025 6:32 AM EDT [facility] Blood Venous blood specimen / Unknown Venipuncture / Unknown 03/27/2025 5:55 AM EDT 03/27/2025 6:23 AM EDT us Ramez Cordoba APRN, DNP LAB BLOOD ORDERAB LES Final Result Performing Organization Address City/[facility] Co de Phone Number [facility] [address] [place] [address] * (ABNORMAL) Hemoglobin and Hematocrit, Blood (03/26/2025 11:39 PM EDT) HGB 7.2(L) 13.7 - 17.5 g/dL LAB HEMATOLOGY METHOD 03/26/2025 11:52 PM EDT [facility] HCT 23.2(L) 40.0 - 51.0 % LAB HEMATOLOGY METHOD 03/26/2025 11:52 PM EDT [facility] Blood Venous blood specimen / Unknown Venipuncture / Unknown 03/26/2025 11:39 PM EDT 03/26/2025 11:45 PM EDT us Ramezluz Cordoba WASTE MACHINE OFFBEARER, DNP LAB BLOOD ORDERAB LES Final Result Performing Organization Address City/[facility]/ZIP Co de Phone Number [facility] [address] [place] [address] * (ABNORMAL) Hemoglobin and Hematocrit, Blood (03/26/2025 5:52 PM EDT) HGB 7.8(L) 13.7 - 17.5 g/dL LAB HEMATOLOGY METHOD 03/26/2025 6:12 PM EDT [facility] HCT 24.0(L) 40.0 - 51.0 % LAB HEMATOLOGY METHOD 03/26/2025 6:12 PM EDT [facility] Blood Venous blood specimen / Unknown Venipuncture / Unknown 03/26/2025 5:52 PM EDT 03/26/2025 5:58 PM EDT us Ramezluz Cordoba APRN, DNP LAB BLOOD ORDERAB LES Final Result Performing Organization Address City/[facility]/ZIP Co de Phone Number [facility] [address] [place] [address] * (ABNORMAL) Hemoglobin and Hematocrit, Blood (03/26/2025 11:42 AM EDT) HGB 7.3(L) 13.7 - 17.5 g/dL LAB HEMATOLOGY METHOD 03/26/2025 11:53 AM EDT [facility] HCT 23.5(L) 40.0 - 51.0 % LAB HEMATOLOGY METHOD 03/26/2025 11:53 AM EDT [facility] Blood Venous blood specimen / Unknown Venipuncture / Unknown 03/26/2025 11:42 AM EDT 03/26/2025 11:45 AM EDT us Ramezluz Cordoba WASTE MACHINE OFFBEARER, DNP LAB BLOOD ORDERAB LES Final Result [facility] [address] [place] [address] * (ABNORMAL) Hemoglobin and Hematocrit, Blood (03/26/2025 5:38 AM EDT) HGB 7.7(L) 13.7 - 17.5 g/dL LAB HEMATOLOGY METHOD 03/26/2025 6:02 AM EDT [facility] HCT 24.6(L) 40.0 - 51.0 % LAB HEMATOLOGY METHOD 03/26/2025 6:02 AM EDT [facility] Blood Venous blood specimen / Unknown Venipuncture / Unknown 03/26/2025 5:38 AM EDT 03/26/2025 5:48 AM EDT us Ramezluz Cordoba APRN, JESSE LAB BLOOD ORDERAB LES Final Result Performing Organization Address [facility]/ZIP Co de Phone Number [facility] [address] [place] [address] * (ABNORMAL) Hemoglobin and Hematocrit, Blood (03/26/2025 12:17 AM EDT) HGB 7.5(L) 13.7 - 17.5 g/dL LAB HEMATOLOGY METHOD 03/26/2025 12:33 AM EDT [facility] HCT 23.8(L) 40.0 - 51.0 % LAB HEMATOLOGY METHOD 03/26/2025 12:33 AM EDT [facility] Blood Venous blood specimen / Unknown Venipuncture / Unknown 03/26/2025 12:17 AM EDT 03/26/2025 12:26 AM EDT us Ramezgucci Cordoba APRN, JESSE LAB BLOOD ORDERAB LES Final Result Performing Organization Address [facility]/ZIP Co de Phone Number [facility] [address] [place] [address] * (ABNORMAL) Basic metabolic panel (03/26/2025 12:17 AM EDT) Glucose, Plasma 99 74 - 99 mg/dL 03/26/2025 12:54 AM EDT [facility] BUN, Plasma 24(H) 8 - 23 mg/dL 03/26/2025 12:54 AM EDT [facility] Creatinine, Plasma 0.75 0.70 - 1.20 mg/dL 03/26/2025 12:54 AM EDT [facility] BUN/Creatinine Ratio 32 03/26/2025 12:54 AM EDT [facility] Sodium, Plasma 137 136 - 145 mmol/L 03/26/2025 12:54 AM EDT [facility] Potassium, Plasma 4.1 3.6 - 4.9 mmol/L 03/26/2025 12:54 AM EDT [facility] Chloride, Plasma 107 97 - 107 mmol/L 03/26/2025 12:54 AM EDT [facility] CO2, Plasma 19(L) 22 - 29 mmol/L 03/26/2025 12:54 AM EDT [facility] Anion Gap 11 6 - 16 mmol/L 03/26/2025 12:54 AM EDT [facility] Total Calcium, Plasma 7.9(L) 8.9 - 10.2 mg/dL 03/26/2025 12:54 AM EDT [facility] eGFRcr 99.5 mL/min/1.7 3m*2 03/26/2025 12:54 AM EDT [facility] Comment:Reported eGFRcr in m L/min/1.73m2 is based the CKD-EPI 2020 equation that does not use a race coefficient. Blood Venous blood specimen / Unknown Venipuncture / Unknown 03/26/2025 12:17 AM EDT 03/26/2025 12:26 AM EDT us Ramezgucci Cordoba APRN, DNP LAB BLOOD ORDERAB LES Final Result [facility] [address] [place] [address] * (ABNORMAL) CBC (03/26/2025 12:17 AM EDT) WBC Count 5.76 3.70 - 10.30 10*3/uL LAB HEMATOLOGY METHOD 03/26/2025 12:33 AM EDT [facility] RBC Count 2.61(L) 4.60 - 6.10 10*6/uL LAB HEMATOLOGY METHOD 03/26/2025 12:33 AM EDT [facility] HGB 7.5(L) 13.7 - 17.5 g/dL LAB HEMATOLOGY METHOD 03/26/2025 12:33 AM EDT [facility] HCT 23.8(L) 40.0 - 51.0 % LAB HEMATOLOGY METHOD 03/26/2025 12:33 AM EDT [facility] Platelet Count 214 155 - 369 10*3/uL LAB HEMATOLOGY METHOD 03/26/2025 12:33 AM EDT [facility] MCV 91 79 - 98 fL LAB HEMATOLOGY METHOD 03/26/2025 12:33 AM EDT [facility] MCH 28.7 26.0 - 32.0 pg LAB HEMATOLOGY METHOD 03/26/2025 12:33 AM EDT [facility] MCHC 31.5 30.7 - 35.5 g/dL LAB HEMATOLOGY METHOD 03/26/2025 12:33 AM EDT [facility] RDW 20.7(H) 11.5 - 14.5 % LAB HEMATOLOGY METHOD 03/26/2025 12:33 AM EDT [facility] MPV 10.0 8.8 - 12.5 fL LAB HEMATOLOGY METHOD 03/26/2025 12:33 AM EDT [facility] nRBC 0.3(H) <=0.0 per 100 WBCs LAB HEMATOLOGY METHOD 03/26/2025 12:33 AM EDT [facility] Blood Venous blood specimen / Unknown Venipuncture / Unknown 03/26/2025 12:17 AM EDT 03/26/2025 12:26 AM EDT us Ramezluz Cordoba WASTE MACHINE OFFBEARER, DNP LAB BLOOD ORDERAB LES Final Result [facility] [address] [place] [address] * (ABNORMAL) Hemoglobin and Hematocrit, Blood (03/25/2025 6:17 PM EDT) [facility] Signature HGB 7.6(L) 13.7 - 17.5 g/dL LAB HEMATOLOGY METHOD 03/25/2025 6:33 PM EDT [facility] HCT 24.2(L) 40.0 - 51.0 % LAB HEMATOLOGY METHOD 03/25/2025 6:33 PM EDT [facility] Blood Venous blood specimen / Unknown Venipuncture / Unknown 03/25/2025 6:17 PM EDT 03/25/2025 6:23 PM EDT us Ramez Cordoba APRN, JESSE LAB BLOOD ORDERAB LES Final Result [facility] [address] [place] [address] * Transfuse RBC (03/25/2025 5:27 PM EDT) [...] abdominal pain, fever, gastrointestinal bleeding and 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 - Findings and recommendations were discussed with patient. - Findings and recommendations to be conveyed to primary team. Indication Acute GI bleeding Medications See anesthesia record for anesthesia administered medications. Staff Staff Role Elbert Monreal CRNA CRNA [place], Jolynn Endo Sanitor Betsy Ellis, RN Endo Nurse Meagan Aggarwal [...] RBC: 1 Units (03/25/2025 12:25 PM EDT) [facility] Product Code [id number] BLOO D BANK Dispense Status Transfused BLOOD BANK Blood Expiration Date [id number] BLOOD BANK Unit Number [id number] B LOOD BANK Product Blood Type 5100 BLOOD BANK Blood Type O+ BLOOD BANK Crossmatch Compatible BLOOD BANK Other Yin Christopher MD BLOOD BANK PRODUCT ORDE RABSABINO Final Result BLOOD BANK [address] [place] [address], * (ABNORMAL) Hemoglobin and Hematocrit, Blood (03/25/2025 11:46 AM EDT) HGB 6.5(L) 13.7 - 17.5 g/dL LAB HEMATOLOGY METHOD 03/25/2025 12:05 PM EDT [facility] HCT 20.9(L) 40.0 - 51.0 % LAB HEMATOLOGY METHOD 03/25/2025 12:05 PM EDT [facility] Blood Venous blood specimen / Unknown Venipuncture / Unknown 03/25/2025 11:46 AM EDT 03/25/2025 12:04 PM EDT us Ramez N Adalid WASTE MACHINE OFFBEARER, DNP LAB BLOOD ORDERAB LES Final Result [facility] [address] [place] [address] * (ABNORMAL) Troponin T, High Sensitivity, 2 Hour, Plasma (03/25/2025 8:28 AM EDT) Troponin T, High Sensitivity, 2 Hour 74(H) <19 ng/L 03/25/2025 9:14 AM EDT [facility] Troponin Delta 3 <10 ng/L 03/25/2025 9:14 AM EDT [facility] Troponin Delta Interpretation Not Significant 03/25/2025 9:14 AM EDT [facility] Comment:Not Significant. No acute change in troponin observed between the baseline and 2 hour samples. Blood Venous blood specimen / Unknown Venipuncture / Unknown 03/25/2025 8:28 AM EDT 03/25/2025 8:44 AM EDT us Ramezluz Cordoba APRN, DNP LAB BLOOD ORDERAB LES Final Result Performing Organization Address City/[facility]/ZIP Co de Phone Number [facility] [address] [place] [address] * (ABNORMAL) Hemoglobin and Hematocrit, Blood (03/25/2025 8:28 AM EDT) HGB 7.0(L) 13.7 - 17.5 g/dL LAB HEMATOLOGY METHOD 03/25/2025 9:02 AM EDT [facility] HCT 22.3(L) 40.0 - 51.0 % LAB HEMATOLOGY METHOD 03/25/2025 9:02 AM EDT [facility] Blood Venous blood specimen / Unknown Venipuncture / Unknown 03/25/2025 8:28 AM EDT 03/25/2025 8:46 AM EDT us Ramezluz Cordoba APRN, DNP LAB BLOOD ORDERAB LES Final Result Performing Organization Address City/[facility]/ZIP Co de Phone Number [facility] [address] [place] [address] * Haptoglobin (03/25/2025 6:23 AM EDT) Haptoglobin, Serum 167 40 - 219 mg/dL 03/25/2025 6:59 AM EDT [facility] Blood Venous blood specimen / Unknown Venipuncture / Unknown 03/25/2025 6:23 AM EDT 03/25/2025 6:29 AM EDT us Ramezluz Cordoba APRN, DNP LAB BLOOD ORDERAB LES Final Result Performing Organization Address [facility]/ZIP Co de Phone Number [facility] [address] [place] [address] * (ABNORMAL) Troponin T, High Sensitivity, 0 Hour Plasma, Reflex to 2 Hour (03/25/2025 6:23 AM EDT) Troponin T, High Sensitivity, 0 Hour 77(H) <19 ng/L 03/25/2025 6:58 AM EDT [facility] Blood Venous blood specimen / Unknown Venipuncture / Unknown 03/25/2025 6:23 AM EDT 03/25/2025 6:29 AM EDT us Ramezgucci Cordoba APRN, DNP LAB BLOOD ORDERAB LES Final Result Performing Organization Address City/[facility]/ZIP Co de Phone Number [facility] [address] [place] [address] * Lactate, venous (03/25/2025 6:23 AM EDT) Lactate, Venous, Whole Blood 0.8 0.5 - 2.2 mmol/L LAB HEMATOLOGY METHOD 03/25/2025 6:28 AM EDT [facility] Blood Venous blood specimen / Unknown Venipuncture / Unknown 03/25/2025 6:23 AM EDT 03/25/2025 6:27 AM EDT us Ramezgucci Cordoba APRN, JESSE LAB BLOOD ORDERAB LES Final Result Performing Organization Address City/[facility]/ZIP Co de Phone Number [facility] [address] [place] [address] * (ABNORMAL) Iron & Total Iron Binding Capacity, Plasma (Includes Transferrin) (03/25/2025 3:36 AM EDT) [facility] Iron, Plasma 81 50 - 170 ug/dL 03/25/2025 6:04 AM EDT [facility] Transferrin, Plasma 195(L) 200 - 360 mg/dL 03/25/2025 6:04 AM EDT [facility] Total Iron Binding Capacity, Plasma 244 240 - 450 ug/mL 03/25/2025 6:04 AM EDT [facility] Transferrin Saturation 33 14 - 50 % 03/25/2025 6:04 AM EDT [facility] Blood Venous blood specimen / Unknown Venipuncture / Unknown 03/25/2025 3:36 AM EDT 03/25/2025 3:50 AM EDT us Ramez Cordoba APRN, DNP LAB BLOOD ORDERAB LES Final Result Performing Organization Address City/[facility]/ZIP Co de Phone Number [facility] [address] [place] [address] * C-reactive protein (03/25/2025 3:36 AM EDT) Pathologist [facility] CRP, Plasma 6.3 <=8.0 mg/L 03/25/2025 6:04 AM EDT [facility] Blood Venous blood specimen / Unknown Venipuncture / Unknown 03/25/2025 3:36 AM EDT 03/25/2025 3:50 AM EDT Narrative [facility] - 03/25/2025 6:04 AM EDT This CRP test is appropriate for assessment of infection, systemic inflammation and/or tissue injury. To assess cardiovascular disease risk order high sensitivity CRP (CRPH). us Ramez Cordoba APRN, JESSE LAB BLOOD ORDERAB LES Final Result Performing Organization Address [facility]/ZIP Co de Phone Number [facility] [address] [place] [address] * (ABNORMAL) Hepatic function panel (03/25/2025 3:36 AM EDT) Conjugated Bilirubin, Plasma 0.5(H) <=0.3 mg/dL 03/25/2025 4:22 AM EDT [facility] Alkaline Phosphatase, Plasma 74 40 - 115 U/L 03/25/2025 4:22 AM EDT [facility] Total Bilirubin, Plasma 1.0 0.2 - 1.1 mg/dL 03/25/2025 4:22 AM EDT [facility] Albumin, Plasma 2.7(L) 3.5 - 5.2 g/dL 03/25/2025 4:22 AM EDT [facility] Total Protein 5.1(L) 6.3 - 7.9 g/dL 03/25/2025 4:22 AM EDT [facility] ALT, Plasma 21 10 - 50 U/L 03/25/2025 4:22 AM EDT [facility] AST, Plasma 26 10 - 50 U/L 03/25/2025 4:22 AM EDT [facility] Blood Venous blood specimen / Unknown Venipuncture / Unknown 03/25/2025 3:36 AM EDT 03/25/2025 3:50 AM EDT us Gretchen Hidalgo MD LAB BLOOD ORDERABLES Final Re sult Performing Organization Address [facility]/ZIP Co de Phone Number [facility] [address] [place] [address] * ECG Adult (03/25/2025 3:31 AM EDT) [facility] EKG DIAGNOSIS CLASS Abnormal MUSE ECG Ventricular Rate 62 BPM MUSE ECG Atrial Rate 62 BPM MUSE ECG KS Interval 182 ms MUSE ECG QRSD Interval 94 ms MUSE ECG QT Interval 450 ms MUSE ECG QTC Interval 456 ms MUSE ECG P [place] 69 degrees MUSE ECG R [place] 42 degrees MUSE ECG T Wave [place] 138 degrees MUSE ECG Diagnosis Normal sinus [...] * Lactate dehydrogenase (03/25/2025 3:29 AM EDT) [facility] LDH, Plasma 236 116 - 250 U/L 03/25/2025 6:09 AM EDT [facility] Blood Venous blood specimen / Unknown Venipuncture / Unknown 03/25/2025 3:29 AM EDT 03/25/2025 3:50 AM EDT us Ramez Cordoba APRN, DNP LAB BLOOD ORDERAB LES Final Result [facility] [address] [place] [address] * (ABNORMAL) Reticulocytes (03/25/2025 3:29 AM EDT) [facility] Reticulocyte Absolute 214.2(H) 40.0 - 110.0 10*3/uL LAB HEMATOLOGY METHOD 03/25/2025 5:46 AM EDT [facility] Immature Reticulocyte Fraction 43.1(H) 3.1 - 17.6 % LAB HEMATOLOGY METHOD 03/25/2025 5:46 AM EDT [facility] Reticulocyte Hemoglobin 29.9 28 - 38 pg LAB HEMATOLOGY METHOD 03/25/2025 5:46 AM EDT [facility] Reticulocyte Count 8.50(H) 0.90 - 2.50 % LAB HEMATOLOGY METHOD 03/25/2025 5:46 AM EDT [facility] Blood Venous blood specimen / Unknown Venipuncture / Unknown 03/25/2025 3:29 AM EDT 03/25/2025 3:32 AM EDT us Ramez N Adalid WASTE MACHINE OFFBEARER, DNP LAB BLOOD ORDERAB LES Final Result Performing Organization Address City/[facility]/ZIP Co de Phone Number [facility] [address] [place] [address] * (ABNORMAL) N-Terminal Probnp (03/25/2025 3:29 AM EDT) N-Terminal, PROBNP, Plasma 1,495(H) 0 - 899 pg/mL 03/25/2025 6:09 AM EDT [facility] Blood Venous blood specimen / Unknown Venipuncture / Unknown 03/25/2025 3:29 AM EDT 03/25/2025 3:50 AM EDT us Ramez N Adalid JARRELLN, DNP LAB BLOOD ORDERAB LES Final Result Performing Organization Address [facility]/ZIP Co de Phone Number [facility] [address] [place] [address] * Procalcitonin (03/25/2025 3:29 AM EDT) Procalcitonin, Plasma 0.08 <0.09 ng/mL 03/25/2025 6:09 AM EDT [facility] Blood Venous blood specimen / Unknown Venipuncture / Unknown 03/25/2025 3:29 AM EDT 03/25/2025 3:50 AM EDT Narrative [facility] - 03/25/2025 6:09 AM EDT Procalcitonin [...] predict 28 day mortality risk. Please consult [email or web address] for more information. Test performed at [facility]. us Ramez Cordoba APRN, DNP LAB BLOOD ORDERAB LES Final Result Performing Organization Address [facility] Co de Phone Number [facility] [address] [place] [address] * (ABNORMAL) PT-INR (03/25/2025 3:29 AM EDT) [facility] Prothrombin Time 20.1(H) 12.0 - 14.3 sec 03/25/2025 3:47 AM EDT [facility] INR 1.7(H) 0.9 - 1.1 03/25/2025 3:47 AM EDT [facility] Blood Venous blood specimen / Unknown Venipuncture / Unknown 03/25/2025 3:29 AM EDT 03/25/2025 3:32 AM EDT Narrative [facility] - 03/25/2025 3:47 AM EDT OPTIMAL INR RANGES FOR PATIENT ON ORAL ANTICOAGULANT THERAPY Prevention of venous thromboembolism INR 2.0 to 3.0 In patients with heart disease: Atrial fibrillation INR 2.0 to 3.0 Valvular heart disease INR 2.0 to 3.0 Tissue heart valves INR 2.0 to 3.0 Mechanical prosthetic valves INR 2.5 to 3.5 Prevention of recurrent DC INR 2.5 to 3.5 us Gretchen Hidalgo MD LAB BLOOD ORDERABLES Final Re sult Performing Organization Address [facility] Co de Phone Number [facility] [address] [place] [address] * Type and screen (03/25/2025 3:29 AM [...] ORDERABLE S Final Result Performing Organization Address [facility]/ZIP Co de Phone Number BLOOD BANK [address] [place] [address], * (ABNORMAL) Troponin now and 120 min (03/25/2025 3:29 AM EDT) Troponin T, High Sensitivity, 0 Hour 81(H) <19 ng/L 03/25/2025 4:20 AM EDT [facility] Blood Venous blood specimen / Unknown Venipuncture / Unknown 03/25/2025 3:29 AM EDT 03/25/2025 3:50 AM EDT Gretchen Hidalgo MD LAB BLOOD ORDERABLES Final Re sult [facility] [address] [place] [address] * (ABNORMAL) BMP (03/25/2025 3:29 AM EDT) Glucose, Plasma 104(H) 74 - 99 mg/dL 03/25/2025 4:20 AM EDT [facility] BUN, Plasma 33(H) 8 - 23 mg/dL 03/25/2025 4:20 AM EDT [facility] Creatinine, Plasma 0.85 0.70 - 1.20 mg/dL 03/25/2025 4:20 AM EDT [facility] BUN/Creatinine Ratio 39 03/25/2025 4:20 AM EDT [facility] Sodium, Plasma 137 136 - 145 mmol/L 03/25/2025 4:20 AM EDT [facility] Potassium, Plasma 4.3 3.6 - 4.9 mmol/L 03/25/2025 4:20 AM EDT [facility] Chloride, Plasma 106 97 - 107 mmol/L 03/25/2025 4:20 AM EDT [facility] CO2, Plasma 21(L) 22 - 29 mmol/L 03/25/2025 4:20 AM EDT [facility] Anion Gap 10 6 - 16 mmol/L 03/25/2025 4:20 AM EDT [facility] Total Calcium, Plasma 8.1(L) 8.9 - 10.2 mg/dL 03/25/2025 4:20 AM EDT [facility] eGFRcr 95.8 mL/min/1.7 3m*2 03/25/2025 4:20 AM EDT [facility] Comment:Reported eGFRcr in m L/min/1.73m2 is based the CKD-EPI 2020 equation that does not use a race coefficient. Blood Venous blood specimen / Unknown Venipuncture / Unknown 03/25/2025 3:29 AM EDT 03/25/2025 3:50 AM EDT us Gretchen Hidalgo MD LAB BLOOD ORDERABLES Final Re sult [facility] [address] [place] [address] * (ABNORMAL) CBC with Diff (03/25/2025 3:29 AM EDT) WBC Count 7.34 3.70 - 10.30 10*3/uL LAB HEMATOLOGY METHOD 03/25/2025 3:34 AM EDT [facility] RBC Count 2.56(L) 4.60 - 6.10 10*6/uL LAB HEMATOLOGY METHOD 03/25/2025 3:34 AM EDT [facility] HGB 7.4(L) 13.7 - 17.5 g/dL LAB HEMATOLOGY METHOD 03/25/2025 3:34 AM EDT [facility] HCT 23.8(L) 40.0 - 51.0 % LAB HEMATOLOGY METHOD 03/25/2025 3:34 AM EDT [facility] Platelet Count 220 155 - 369 10*3/uL LAB HEMATOLOGY METHOD 03/25/2025 3:34 AM EDT [facility] MCV 93 79 - 98 fL LAB HEMATOLOGY METHOD 03/25/2025 3:34 AM EDT [facility] MCH 28.9 26.0 - 32.0 pg LAB HEMATOLOGY METHOD 03/25/2025 3:34 AM EDT [facility] MCHC 31.1 30.7 - 35.5 g/dL LAB HEMATOLOGY METHOD 03/25/2025 3:34 AM EDT [facility] RDW 20.9(H) 11.5 - 14.5 % LAB HEMATOLOGY METHOD 03/25/2025 3:34 AM EDT [facility] MPV 9.4 8.8 - 12.5 fL LAB HEMATOLOGY METHOD 03/25/2025 3:34 AM EDT [facility] nRBC 0.3(H) <=0.0 per 100 WBCs LAB HEMATOLOGY METHOD 03/25/2025 3:34 AM EDT [facility] Differential Type Automated LAB HEMATOLOGY METHOD 03/25/2025 3:34 AM EDT [facility] Neutrophils % 54 % LAB HEMATOLOGY METHOD 03/25/2025 3:34 AM EDT [facility] Lymphocytes % 34 % LAB HEMATOLOGY METHOD 03/25/2025 3:34 AM EDT [facility] Monocytes % 8 % LAB HEMATOLOGY METHOD 03/25/2025 3:34 AM EDT [facility] Eosinophils % 1 % LAB HEMATOLOGY METHOD 03/25/2025 3:34 AM EDT [facility] Basophils % 1 % LAB HEMATOLOGY METHOD 03/25/2025 3:34 AM EDT [facility] Immature Granulocytes % 2 % LAB HEMATOLOGY METHOD 03/25/2025 3:34 AM EDT [facility] Neutrophils Absolute 4.01 1.60 - 6.10 10*3/uL LAB HEMATOLOGY METHOD 03/25/2025 3:34 AM EDT [facility] Lymphocytes Absolute 2.52 1.20 - 3.90 10*3/uL LAB HEMATOLOGY METHOD 03/25/2025 3:34 AM EDT [facility] Monocytes Absolute 0.56 0.30 - 0.90 10*3/uL LAB HEMATOLOGY METHOD 03/25/2025 3:34 AM EDT [facility] Eosinophils Absolute 0.05 0.00 - 0.50 10*3/uL LAB HEMATOLOGY METHOD 03/25/2025 3:34 AM EDT [facility] Basophils Absolute 0.05 0.00 - 0.10 10*3/uL LAB HEMATOLOGY METHOD 03/25/2025 3:34 AM EDT [facility] Immature Granulocytes Absolute 0.15(H) 0.00 - 0.06 10*3/uL LAB HEMATOLOGY METHOD 03/25/2025 3:34 AM EDT [facility] Blood Venous blood specimen / Unknown Venipuncture / Unknown 03/25/2025 3:29 AM EDT 03/25/2025 3:32 AM EDT Narrative [facility] - 03/25/2025 3:34 AM EDT Therapeutic decision making should be based on absolute values, rather than percentages. us Gretchen Hidalgo MD LAB BLOOD ORDERABLES Final Re sult [facility] [address] [place] [address] documented in this encounter Visit Diagnoses Diagnosis Upper GI bleeding- Primary Unspecified, hemorrhage of gastrointestinal tract Acute GI bleeding Unspecified, hemorrhage of gastrointestinal tract Severe anemia Generalized weakness Upper GI bleeding Unspecified, hemorrhage of gastrointestinal tract Persistent atrial fibrillation ([facility]) Atrial fibrillation Duodenal ulcer CAD, multiple vessel HLD (hyperlipidemia) Other and unspecified hyperlipidemia HTN (hypertension) Unspecified essential hypertension COPD (chronic obstructive pulmonary disease) ([facility]) Chronic airway obstruction, not elsewhere classified GERD (gastroesophageal reflux disease) Esophageal reflux Heart failure with mid-range ejection fraction (HFmEF) ([facility]) S/P CABG x 4 Postsurgical aortocoronary [...] Oral, Every 12 hours, First dose on [facility] 03/25/25 at 0800, Until Discontinued, Routine [...] Oral, 2 times daily, First dose on [facility] 03/25/25 at 0900, Until Discontinued, Routine Given 03/28/2025 8:08 PM EDT 5 mg Given 03/28/2025 9:11 AM EDT 5 mg Given 03/27/2025 8:09 PM EDT 5 mg aspirin chewable tablet 81 mg 81 mg, Oral, Daily, First dose on [facility] 03/27/25 at 0900, Until Discontinued, Routine Given [...] 2 g, Intravenous, Once, 1 dose, On [facility] 03/27/25 at 1945, Routine New Bag 03/27/2025 8:08 PM EDT 2 g 25 mL/hr metoprolol tartrate (Lopressor) tablet 75 mg 75 mg, Oral, 2 times daily, First dose on [facility] 03/27/25 at 2100, Until Discontinued, Routine Given 03/31/2025 8:12 AM EDT 75 mg Given 03/30/2025 9:20 PM EDT 75 mg Given 03/30/2025 8:34 AM EDT 75 mg mometasone-formoterol (Dulera 100) 100-5 MCG/ACT inhaler 2 puff 2 puff, Inhalation, 2 times daily, First dose on [facility] 03/25/25 at 0900, Until Discontinued, Routine Given 03/31/2025 8:11 AM EDT 2 puffs Given 03/30/2025 9:19 PM EDT 2 puffs Given 03/30/2025 8:33 AM EDT 2 puffs morphine PF 4 mg 4 mg, Intravenous, Once as needed, 1 dose, Starting on [facility] 03/25/25 at 0433, Until [place] 03/25/25 [...] Oral, 2 times daily, First dose on [facility] 03/27/25 at 2100, Until Discontinued, Routine Given 03/31/2025 8:12 AM EDT 40 mg Given 03/30/2025 9:20 PM EDT 40 mg Given 03/30/2025 8:34 AM EDT 40 mg pantoprazole (Protonix) injection 40 mg 40 mg, Intravenous, 2 times daily, First dose on [facility] 03/25/25 at 0900, Until Discontinued, Routine Given 03/27/2025 8:36 AM EDT 40 mg Given 03/26/2025 8:00 PM EDT 40 mg Given 03/26/2025 9:28 AM EDT 40 mg polyethylene glycol (Miralax) packet 17 g 17 g, Oral, Daily, First dose on [facility] 03/25/25 at 0900, Until Discontinued, Routine Given 03/29/2025 8:44 AM EDT 17 g Given 03/28/2025 9:11 AM EDT 17 g Given 03/27/2025 8:37 AM EDT 17 g senna (Senokot) tablet 17.2 mg 17.2 mg (2 tablet), Oral, Nightly, First dose on [facility] 03/25/25 at 2100, Until Discontinued, Routine Given 03/30/2025 9:20 PM EDT 17.2 mg Given 03/29/2025 8:15 PM EDT 17.2 mg Given 03/28/2025 8:08 PM EDT 17.2 mg sodium chloride 0.9 % flush 10 mL 10 mL, Intravenous, Every 12 hours, First dose on [facility] 03/25/25 at 0520, Until Discontinued, Routine [...] Intravenous, Every 12 hours, First dose on [facility] 03/25/25 at 0540, Until Discontinued, Routine [...] 03/30/2025 12:49 PM EDT 1 g Tiotropium [place] Monohydrate (Spiriva Respimat) 2.5 MCG/ACT inhaler 2 [...] of the shift)1745 (Given - Provider: Natalie rByan RN) 0509 (Not Given - Provider: Mirella [...] canceled at discontinue of medication order) Tiotropium [place] Monohydrate (Spiriva Respimat) 2.5 MCG/ACT inhaler 2 [...] documented as of this encounter Care Teams Driver Examiner Relationship Specialty Start Date End Date Kiera Castro APRN [address] [place] [address] PCP - General 02/17/25 documented as of this encounter
[2025-05-26 16:13] LABS: Immature Granulocytes % 0.3 %; Mean Corpuscular HGB Conc 28.2 g/dL (31.8-35.4); Mean Corpuscular Hemoglobin 22.5 pg (27.0-31.2); Mean Corpuscular Volume 79.8 fl (80-94); Nucleated Red Blood Cells % 0.3 %; Platelet Count 303 K/mm3 (142-424); Red Blood Count 2.53 M/mm3 (4.60-6.20); Red Cell Distribution Width-SD 55.4 fL; White Blood Count 6.8 K/mm3 (4.8-10.8)
--- OUTSIDE RECORDS SUMMARY | 2025-05-26 16:19 | XMS_ITS ---
Author Organization Healthcare Address [address] [place] [address] Care Team Providers Care Director Child Name Role Phone Kiera Castro APRN Primary Care Provider [phone] Transitional Care Management Status:Closed (Closed) Start date:04/01/2025 Enrollment date:04/06/2025 Enrollment reason:Identified using hospital discharge data End date:05/01/2025 Close reason:Patient graduated Overview This episode type is for outpatient care managers enrolling patients in the [facility] Transitional Care Management program. Continued Care and Services Coordination
--- OUTSIDE RECORDS SUMMARY | 2025-05-26 16:19 | XMS_ITS | Encounter Summary ---
Author Organization Healthcare Address [address] [place] [address] Care Team Providers Care Conference Services Coordinator Name Role Phone Kiera Castro APRN Primary Care Provider [phone] Lucero Stafford LPN Unavailable Unavailable Reason for Visit * Reason Comments Follow-up Encounter Details Date Type Department Care Team (Late Contact Info) Description 04/08/2025 Patient Outreach POPULATION HEALTH [address] [facility] [place] [address] Lucero Stafford LPN VALUE-[employer]ED [place] [address] Follow-up Social History Tobacco Use Types Packs/Day [...] No 03/27/2025 Housing Stability Vital Sign Answer Guilalume e Recorded In the last 12 months, [...] the past 12 months has th e [employer], gas, oil, or water company threatened to [...] Description 08/03/2025 12:40 PM EDT Office Visit [facility] [place] [facility] [address] [place] [address] Dimitrios Wright MD [address] [place] [address] documented as of this encounter Goals Goal [...] documented as of this encounter Care Teams Conference Services Coordinator Relationship Specialty Start Date End Date Kiera Castro APRN [address] [place] [address] PCP - General 02/17/25 Lucero Stafford LPN VALUE-[employer]ED [place] [address] TCM Nurse 04/01/25 05/01/25 documented as of this encounter
--- OUTSIDE RECORDS SUMMARY | 2025-05-26 16:19 | XMS_ITS | Encounter Summary ---
Author Organization Healthcare Address [address] [place] [address] Care Team Providers Care Manager Recovery Name Role Phone Kiera Castro APRN Primary Care Provider [phone] Encounter Details Date Type Department Care Team (Late st Contact Info) Description 05/04/2025 [facility]phone [facility] [address], [address] [place] [address] Lata Sahu MD [address] [place] [address] Social History Tobacco Use Types [...] any time in the past 12 m [facility], were you homeless or [...] Description 08/03/2025 12:40 PM EDT Office Visit [facility] [place] [address] [place] [address] Dimitrios Wright MD [address] [place] [address] documented as of this encounter Goals Goal [...] as of this encounter Care Teams Manager Recovery Relationship Specialty Start Date End Date Kiera Castro, SALES REPRESENTATIVE PRINTING [address] [place] [address] PCP - General 02/17/25 documented as of this encounter
--- OUTSIDE RECORDS SUMMARY | 2025-05-26 16:19 | XMS_ITS | Encounter Summary ---
Author Organization Healthcare Address [address] [place] [address] Care Team Providers Care Ski Patrol Name Role Phone Kiera Castro APRN Primary Care Provider [phone] Lucero Stafford LPN Unavailable Unavailable Reason for Visit * Reason Comments TCM Call Encounter Details Date Type Department Care Team (Late Contact Info) Description 04/02/2025 Patient Outreach POPULATION HEALTH [address] [facility] [place] [address] Lucero Stafford LPN VALUE-BASED [place] [address] TCM Call Social History Tobacco Use Types [...] any time in the past 12 m [facility], were you homeless or living in a detention (including now)? No 03/27/2025 Utilities Answer Date Recorded In the past 12 months has th e [employer], gas, oil, or water company threatened to [...] dated 03/31/2025: Patient has been [facility] to [facility]; RNCMcontacted agency regarding plan for discharge to home today. Williams Rubin with [employer] confirms that documentation has been received, and [facility] has approved this in-home care. documented in this encounter Plan of Treatment Upcoming Encounters Date Type Department Care Team (Late st Contact Info) Description 08/03/2025 12:40 PM EDT Office Visit [facility] [place] [address] [place] [address] Dimitrios Wright MD [address] [place] [address] documented as of this encounter Goals Goal [...] documented as of this encounter Care Teams Ski Patrol Relationship Specialty Start Date End Date Kiera Castro APRN [address] [place] [address] PCP - General 02/17/25 Lucero Stafford LPN VALUE-BASED [place] [address] TCM Nurse 04/01/25 05/01/25 documented as of this encounter
--- OUTSIDE RECORDS SUMMARY | 2025-05-26 16:19 | XMS_ITS | Encounter Summary ---
Author Organization Healthcare Address [address] [place] [address] Care Team Providers Care Segmental Paver Installer Name Role Phone Kiera Castro APRN Primary Care Provider [phone] Lucero Stafford LPN Unavailable Unavailable Reason for Visit * Reason Comments TCM Call Encounter Details Date Type Department Care Team (Late Contact Info) Description 04/06/2025 Patient Outreach POPULATION HEALTH [address] [facility], [address] [place] [address] Lucero Stafford LPN [employer] [place] [address] TCM Call Social History Tobacco Use Types [...] were you homeless or living in a group home (including now)? No 04/06/2025 Utilities Answer Date Recorded In the past 12 months has th e [employer], gas, oil, or water company threatened to [...] or increased pain. States he quit smoking. 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 Patient states he is unable to [...] nurse call. Action: Reviewed upcoming appointments in [facility] with patient during nurse call. Call placed to [facility]. Spoke with Trent, she states patient did telehealth appointment with them on 04/01/2025 and has a follow up appointment scheduled on 04/08/2025 at 11:30 with their provider. Bijusilvestre states she will have wound care supplies sent to patient [facility] and will reach out to patient to make him aware. This nurse called patient back and made him aware [facility] would be calling him and sending wound care supplies out [facility]. This nurse also [facility] patient [facility] this afternoon [...] dated 03/31/2025: Patient has been referred to [facility] In- Home Wound Care; RNCMcontacted agency regarding plan for discharge to home today. Williams Rubin with [facility] confirms that documentation has been received, and [facility] has approved this in-home care. documented in this encounter Plan of Treatment Upcoming Encounters Date Type Department Care Team (Late st Contact Info) Description 08/03/2025 12:40 PM EDT Office Visit [facility] [address] [place] [address] Dimitrios Wright MD [address] [place] [address] documented as of this encounter Goals Goal [...] documented as of this encounter Care Teams Segmental Paver Installer Relationship Specialty Start Date End Date Kiera Castro APRN [address] [place] [address] PCP - General 02/17/25 Lucero Stafford LPN [employer] [place] [address] TCM Nurse 04/01/25 05/01/25 documented as of this encounter
--- OUTSIDE RECORDS SUMMARY | 2025-05-26 16:19 | XMS_ITS | Clinical Summary ---
Author Organization Healthcare Address [address] [place] [address] Care Team Providers Care Appeals Manager Name Role Phone Kiera Castro APRN Primary Care Provider [phone] Allergies No known active allergies Medications famotidine (Pepcid) 20 MG tablet Take 1 tablet by mouth 2 times a day. Active acetaminophen (Tylenol) 325 MG tablet Take 2 tablets by mouth every 6 hours as needed for pain, headaches or fever. Under [place] law, monthly prescriptions (30 days) can be [...] continue 1 each 03/02/20 25 Active Tiotropium Newcastle Monohydrate (Spiriva Respimat) 2.5 MCG/ACT inhaler Inhale [...] and nightly. 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 2. 2 mm aneurysm or infundibulum at [...] HFmEF) 02/17/2025 Overview (02/22/2025): - Echo 02-15-25 [facility]: EF 45% - post-op EF 50% CAD, [...] Tobacco abuse disorder 02/16/2025 Overview (02/22/2025): - peer counselor on smoking cessation Incomplete right bundle [...] (NSTEMI) 03/13/2025 03/17/2025 Atrial fibrillation 03/12/2025 03/17/20 Delirium 02/24/2025 03/02/2025 Overview (02/24/2025): Encephalopathy workup [...] stenosis 02/16/2025 03/02/2025 Overview (02/21/2025): Echo 02-15-25 [facility]: Moderate AI. Moderate (peak gradient velocity 3.2 m/s. Mean AV gradient 22 mmHg. Max gradient 40 mmHg. PETE 1.4 cm sq. 02/21: s/p 4vCABG and bioprosthetic AVR. Aortic valve intact with no significant AI on post TAYLOR. NSTEMI (non-ST elevated myoc ardial infarction) 02/16/2025 03/02/2025 Overview (02/21/2025): S/p 4vCABG on 02/21 Encounters Date Type Department Care Team Description 05/04/2025 Telephone [facility] Cardi[facility]acic [address], [address] [place] [address] Lata Sahu MD 04/08/2025 Patient Outreach POPULATION [address], [address] [place] [address] Lucero Stafford LPN Follow-up 04/06/2025 Patient Outreach POPULATION [address], [address] [place] [address] Lucero Stafford LPN TCM Call 04/02/2025 Patient Outreach POPULATION [address], [address] [place] [address] Lucero Stafford LPN TCM Call 04/01/2025 Patient Outreach POPULATION [address], [address] [place] [address] Lucero Stafford LPN TCM Call 03/25/2025 5:04 PM EDT Anesthesia Event [facility] [address] [place] [address] Cristofer Delacruz MD Sparks, Starr N, BUCK 03/25/2025 3:17 AM EDT - 03/31/2025 12:30 PM EDT Hospital Encounter [facility] Inpatient [address] [place] [address] Naga Hidalgo MD Sagheer, Iqra, MD Khalid, Muhammad Fahad, MD Wolak, Megan M, MD Acute GI bleeding (Primary Dx); Severe anemia; Generalized weakness; Upper GI bleeding; Persistent atrial fibrillation (CMS/HCC); Duodenal ulcer Discharge Disposition: Home-Health Care [facility] [place] 03/25/2025 Travel 03/17/2025 Travel 03/16/2025 Travel 03/15/2025 Travel 03/14/2025 Travel 03/13/2025 Travel 03/12/2025 3:36 AM EDT - 03/17/2025 2:43 PM EDT Hospital Encounter [facility] Inpatient [address] [place] [address] Sloane Blake MD Reda, Hassan K, MD Gluteal abscess (Primary Dx); Chest pain, unspecified type; Elevated troponin; Persistent atrial fibrillation (CMS/HCC) Discharge Disposition: Home or Self Care 03/12/2025 Orders Only External Location [address] [place] [address] Provider, External 03/12/2025 Travel 03/03/2025 Telephone [facility] [address] [place] [id number] Gia Mcneal 03/02/2025 Travel 03/01/2025 Travel 02/28/2025 Travel 02/27/2025 Travel 02/26/2025 Travel 02/25/2025 Travel 02/24/2025 Travel 02/16/2025 7:16 PM EDT - 03/02/2025 2:41 PM EDT Hospital Encounter [facility] Inpatient [address] [place] [address] Gerardo Hinds MD Bacon, James D, MD Reda, Hassan K, MD CAD, multiple vessel (Primary Dx); Sinus bradycardia; Concentric left ventricular hypertrophy; Edentulous; NSTEMI (non-ST elevated myocardial infarction) (CMS/HCC); Cervical radiculopathy; Tobacco abuse disorder; Hyperlipidemia, unspecified hyperlipidemia type; Hypocalcemia; Aortic valve insufficiency, etiology of cardiac valve disease unspecified; Situational depression; Obesity (BMI 30-39.9); Aortic valve stenosis, etiology of cardiac valve disease unspecified; Chronic obstructive pulmonary disease, unspecified COPD type ([facility]); Anemia, unspecified type; Heart failure with mid-range ejection fraction (HFmEF) ([facility]); Gastroesophageal reflux disease, unspecified whether esophagitis present; Benign prostatic hyperplasia, unspecified whether lower urinary tract symptoms present; Incomplete right bundle branch block; Primary hypertension; Cardiac volume overload; Electrolyte abnormality; Post-op pain; On supplemental oxygen by nasal cannula; S/P AVR; S/P CABG x 4; Obstructive sleep apnea; Gastroesophageal reflux disease without esophagitis; Hypertension, unspecified type; Pulmonary emphysema, unspecified emphysema type ([facility]); Acute hypoxic respiratory failure; Thrombocytopenia ([facility]); Altered mental status, unspecified altered mental status type; Persistent atrial fibrillation ([facility]); Abnormal CT of the head Discharge Disposition: Home or Self Care from Last 3 Months Social History Tobacco [...] any time in the past 12 m [facility], were you homeless or living in a penitentiary (including now)? No 04/06/2025 Utilities Answer Date Recorded In the past 12 months has th e [facility] [employer], gas, oil, or water company threatened to [...] Description 08/03/2025 12:40 PM EDT Office Visit [facility] [address] [facility] [place] [address] Dimitrios Wright MD [address] [place] [id number] Health Maintenance Due Date Last Done Comments [...] 2008 [facility]-Abdominal Aortic Aneurysm (AAA) Screening 2023 [id number] Vaccine ( season) 2024 04/26/2021, 03/29/2021 [facility]-Influenza [...] Moeller, RN Medical Devices Implanted Type Area Private Mortgage Banker Safe Device Identifier Shelf Expiration Date Model / Serial / Lot Valve Aortic Inspiris Resilia 29mm - [id number] - [id number] Implanted:Qty: 1 on 02/21/2025 by Lata Sahu MD at [facility]-[id number] 09/22/2029 [id number] / [id number] / [id number] Description:We do not rinse Inspirus Valves. Pledget Ptfe [place]stone 4.8mm X 6mm - [id number] Implanted:02/21 by Lata Sahu MD at [facility] (Quantity not on file) [place] [employer]-[id number] / / Pledget Ptfe Millstone 4.8mm X 6mm - [id number] Implanted:02/21 by Lata Sahu MD at [facility] (Quantity not on file) [place] [employer]-[id number] / / Procedures Procedure Name Priority Date/Time Associated Diagnosis Comments MAGNESIUM, PLASMA Routine 03/31/2025 4:1 7 AM EDT COMPREHENSIVE METABOLIC PANEL, PLASMA Routine 03/31/2025 4:17 AM EDT CBC WITH AUTO DIFFERENTIAL Routine 03/31/2025 4:17 AM EDT OXYGEN THERAPY STAT 03/30/2025 8:00 AM EDT CBC WITH AUTO DIFFERENTIAL Routine 03/30/2025 4:52 AM EDT COMPREHENSIVE METABOLIC PANEL, PLASMA Routine 03/30/2025 4:52 AM EDT MAGNESIUM, PLASMA Routine 03/30/2025 4:5 2 AM EDT PHOSPHORUS, PLASMA Routine 03/30/2025 4: 52 AM EDT OXYGEN THERAPY STAT 03/29/2025 8:00 [...] 3:21 AM EDT MAGNESIUM, PLASMA Routine 03/29/2025 3:2 1 AM EDT PHOSPHORUS, PLASMA Routine 03/29/2025 3: 21 AM EDT OXYGEN THERAPY STAT 03/28/2025 8:00 [...] 5:18 AM EDT MAGNESIUM, PLASMA Routine 03/28/2025 5:1 8 AM EDT PHOSPHORUS, PLASMA Routine 03/28/2025 5: 18 AM EDT HEMOGLOBIN AND HEMATOCRIT, BLOOD Timed [...] 5:55 AM EDT MAGNESIUM, PLASMA Routine 03/27/2025 5:5 5 AM EDT PHOSPHORUS, PLASMA Routine 03/27/2025 5: 55 AM EDT HEMOGLOBIN AND HEMATOCRIT, BLOOD Timed [...] 8:00 AM EDT HAPTOGLOBIN, SERUM Routine 03/25/2025 6: 23 AM EDT TROPONIN T, HIGH SENSITIVITY, 0 [...] 12:42 PM EDT Persistent atrial fibrillation (CMS/HCC) [place] CARDIOVERSION, ELECTIVE;CHIEF INVESTMENT OFFICER Routine 03/16/2025 12:42 PM EDT Persistent atrial [...] 12:28 PM EDT MAGNESIUM, PLASMA Routine 03/13/2025 4:3 7 [...] GRAM STAIN Routine 03/12/2025 6:52 AM EDT [place] DRAIN SKIN ABSCESS COMPLIC Routine 03/12/2025 5:54 [...] 3:20 AM EDT MAGNESIUM, PLASMA Routine 03/01/2025 3:2 0 AM EDT CBC W/O DIFFERENTIAL Routine 03/01/2025 [...] 3:35 AM EDT MAGNESIUM, PLASMA Routine 02/28/2025 3:3 5 AM EDT PEP THERAPY Routine 02/27/2025 9:43 [...] 2:50 AM EDT MAGNESIUM, PLASMA Routine 02/27/2025 2:5 0 AM EDT XR CHEST 1 VIEW Routine 02/27/2025 12:00 AM EDT PEP THERAPY Routine 02/26/2025 9:43 PM EDT OXYGEN THERAPY Routine 02/26/2025 6:00 PM EDT PEP THERAPY Routine 02/26/2025 3:43 PM EDT PEP THERAPY Routine 02/26/2025 9:43 AM EDT OXYGEN THERAPY Routine 02/26/2025 8:00 AM EDT MAGNESIUM, PLASMA Routine 02/26/2025 3:4 7 AM EDT CBC W/O DIFFERENTIAL Routine 02/26/2025 3:47 AM EDT BASIC METABOLIC PANEL, PLASMA Routine 02/26/2025 3:47 AM EDT PEP THERAPY Routine 02/26/2025 3:43 AM EDT XR CHEST 1 VIEW Routine 02/26/2025 2:59 AM EDT PEP THERAPY Routine 02/25/2025 9:43 PM EDT OXYGEN THERAPY Routine 02/25/2025 6:00 PM EDT PEP THERAPY Routine 02/25/2025 3:43 PM EDT [facility] CRITICAL CARE, E/M 30-74 MINUTES Routine 02/25/2025 [...] 3:39 AM EDT MAGNESIUM, PLASMA Routine 02/25/2025 3:3 3 AM EDT CBC W/O DIFFERENTIAL Routine 02/25/2025 [...] PEP THERAPY Routine 02/24/2025 3:42 PM EDT [facility] CR[facility] CARE, E/M 30-74 MINUTES Routine 02/24/2025 [...] 2:49 PM EDT POTASSIUM, PLASMA Routine 02/24/2025 1:1 5 PM EDT BLOOD GAS PANEL WITH OXIMETRY, [...] MAGNESIUM, PLASMA Routine 02/24/2025 12:35 AM EDT HEPATITIS C ANTIBODY W/REFLEX TO HCV QUANT PCR Routine 02/21/2025 10:36 PM EDT from Last 3 Months or Most Recently Relevant to Health Maintenance Results * (ABNORMAL) CBC and Differential (03/31/2025 4:17 AM EDT) Only the most recent of7 resultswithin the time period is included. WBC Count 5.55 3.70 - 10.30 10*3/uL LAB HEMATOLOGY METHOD 03/31/2025 4:41 AM EDT [facility] RBC Count 2.57(L) 4.60 - 6.10 10*6/uL LAB HEMATOLOGY METHOD 03/31/2025 4:41 AM EDT [facility] HGB 7.6(L) 13.7 - 17.5 g/dL LAB HEMATOLOGY METHOD 03/31/2025 4:41 AM EDT [facility] HCT 24.7(L) 40.0 - 51.0 % LAB HEMATOLOGY METHOD 03/31/2025 4:41 AM EDT [facility] Platelet Count 218 155 - 369 10*3/uL LAB HEMATOLOGY METHOD 03/31/2025 4:41 AM EDT [facility] MCV 96 79 - 98 fL LAB HEMATOLOGY METHOD 03/31/2025 4:41 AM EDT [facility] MCH 29.6 26.0 - 32.0 pg LAB HEMATOLOGY METHOD 03/31/2025 4:41 AM EDT [facility] MCHC 30.8 30.7 - 35.5 g/dL LAB HEMATOLOGY METHOD 03/31/2025 4:41 AM EDT [facility] RDW 19.1(H) 11.5 - 14.5 % LAB HEMATOLOGY METHOD 03/31/2025 4:41 AM EDT [facility] MPV 10.4 8.8 - 12.5 fL LAB HEMATOLOGY METHOD 03/31/2025 4:41 AM EDT [facility] nRBC 0.0 <=0.0 per 100 WBCs LAB HEMATOLOGY METHOD 03/31/2025 4:41 AM EDT [facility] Differential Type Automated LAB HEMATOLOGY METHOD 03/31/2025 4:41 AM EDT [facility] Neutrophils % 43 % LAB HEMATOLOGY METHOD 03/31/2025 4:41 AM EDT [facility] Lymphocytes % 46 % LAB HEMATOLOGY METHOD 03/31/2025 4:41 AM EDT [facility] Monocytes % 6 % LAB HEMATOLOGY METHOD 03/31/2025 4:41 AM EDT [facility] Eosinophils % 3 % LAB HEMATOLOGY METHOD 03/31/2025 4:41 AM EDT [facility] Basophils % 1 % LAB HEMATOLOGY METHOD 03/31/2025 4:41 AM EDT [facility] Immature Granulocytes % 1 % LAB HEMATOLOGY METHOD 03/31/2025 4:41 AM EDT [facility] Neutrophils Absolute 2.41 1.60 - 6.10 10*3/uL LAB HEMATOLOGY METHOD 03/31/2025 4:41 AM EDT [facility] Lymphocytes Absolute 2.53 1.20 - 3.90 10*3/uL LAB HEMATOLOGY METHOD 03/31/2025 4:41 AM EDT [facility] Monocytes Absolute 0.33 0.30 - 0.90 10*3/uL LAB HEMATOLOGY METHOD 03/31/2025 4:41 AM EDT [facility] Eosinophils Absolute 0.17 0.00 - 0.50 10*3/uL LAB HEMATOLOGY METHOD 03/31/2025 4:41 AM EDT [facility] Basophils Absolute 0.05 0.00 - 0.10 10*3/uL LAB HEMATOLOGY METHOD 03/31/2025 4:41 AM EDT [facility] Immature Granulocytes Absolute 0.06 0.00 - 0.06 10*3/uL LAB HEMATOLOGY METHOD 03/31/2025 4:41 AM EDT [facility] Blood Venous blood specimen / Unknown Venipuncture / Unknown 03/31/2025 4:17 AM EDT 03/31/2025 4:29 AM EDT [facility] - 03/31/2025 4:41 AM EDT Therapeutic decision making should be based on absolute values, rather than percentages. us Yin Christopher MD LAB BLOOD ORDERABLES Fi nal Result [facility] [address] [place] [address] * (ABNORMAL) Magnesium, Plasma (03/31/2025 4:17 AM EDT) Only the most recent of17 resultswithin the time period is included. Magnesium, Plasma 1.7(L) 1.9 - 2.4 mg/dL 03/31/2025 4:57 AM EDT [facility] Blood Venous blood specimen / Unknown Venipuncture / Unknown 03/31/2025 4:17 AM EDT 03/31/2025 4:27 AM EDT Yin Christopher MD LAB BLOOD ORDERABLES Fi nal Result [facility] [address] [place] [address] * (ABNORMAL) Comprehensive Metabolic Panel, Plasma (03/31/2025 4:17 AM EDT) Only the most recent of10 resultswithin the time period is included. Glucose, Plasma 125(H) 74 - 99 mg/dL 03/31/2025 4:57 AM EDT [facility] BUN, Plasma 28(H) 8 - 23 mg/dL 03/31/2025 4:57 AM EDT [facility] Creatinine, Plasma 0.72 0.70 - 1.20 mg/dL 03/31/2025 4:57 AM EDT [facility] BUN/Creatinine Ratio 39 03/31/2025 4:57 AM EDT [facility] Sodium, Plasma 136 136 - 145 mmol/L 03/31/2025 4:57 AM EDT [facility] Potassium, Plasma 4.1 3.6 - 4.9 mmol/L 03/31/2025 4:57 AM EDT [facility] Chloride, Plasma 106 97 - 107 mmol/L 03/31/2025 4:57 AM EDT [facility] CO2, Plasma 22 22 - 29 mmol/L 03/31/2025 4:57 AM EDT [facility] Anion Gap 8 6 - 16 mmol/L 03/31/2025 4:57 AM EDT [facility] Total Calcium, Plasma 8.1(L) 8.9 - 10.2 mg/dL 03/31/2025 4:57 AM EDT [facility] Total Protein 5.0(L) 6.3 - 7.9 g/dL 03/31/2025 4:57 AM EDT [facility] Albumin, Plasma 2.8(L) 3.5 - 5.2 g/dL 03/31/2025 4:57 AM EDT [facility] AST, Plasma 24 10 - 50 U/L 03/31/2025 4:57 AM EDT [facility] ALT, Plasma 14 10 - 50 U/L 03/31/2025 4:57 AM EDT [facility] Alkaline Phosphatase, Plasma 106 40 - 115 U/L 03/31/2025 4:57 AM EDT [facility] Total Bilirubin, Plasma 0.3 0.2 - 1.1 mg/dL 03/31/2025 4:57 AM EDT [facility] eGFRcr 100.8 mL/min/1.7 3m*2 03/31/2025 4:57 AM EDT [facility] Comment:Reported eGFRcr in m L/min/1.73m2 is based the CKD-EPI 2020 equation that does not use a race coefficient. Blood Venous blood specimen / Unknown Venipuncture / Unknown 03/31/2025 4:17 AM EDT 03/31/2025 4:27 AM EDT Yin Christopher MD LAB BLOOD ORDERABLES Fi nal Result [facility] [address] [place] [address] * Phosphorus, Plasma (03/30/2025 4:52 AM EDT) Only the most recent of4 resultswithin the time period is included. Phosphorus, Plasma 3.3 2.5 - 4.5 mg/dL 03/30/2025 5:36 AM EDT [facility] Blood Venous blood specimen / Unknown Venipuncture / Unknown 03/30/2025 4:52 AM EDT 03/30/2025 5:04 AM EDT Yin Christopher MD LAB BLOOD ORDERABLES Fi nal Result [facility] [address] [place] [address] * Transfuse RBC (03/29/2025 12:59 PM EDT) Only the most recent of4 resultswithin the time period is included. Yin Christopher MD BLOOD TRANSFUSION ORDER CASTILLO Final Result * Prepare Leukocyte Reduced RBC: 1 Units (03/29/2025 8:37 AM EDT) Only the most recent of5 resultswithin the time period is included. Product Code Q4928N04 BLOO D BANK Dispense Status Transfused BLOOD BANK Blood Expiration Date [id number] BLOOD BANK Unit Number [id number] CH B LOOD BANK Product Blood Type 5100 BLOOD BANK Blood Type O+ BLOOD BANK Crossmatch Compatible BLOOD BANK Other Yin Christopher MD BLOOD BANK PRODUCT ORDE RABLES Final Result Performing Organization Address City/[facility] Co de Phone Number BLOOD BANK [address] * Type and screen (03/29/2025 6:05 AM EDT) Only the most recent of4 resultswithin the time period is included. ABO/Rh [...] ORDERA BLES Final Result BLOOD BANK [address] * (ABNORMAL) Occult Blood, Fecal by Immunoassay (SO) (03/28/2025 4:18 PM EDT) Pathologist [facility] Occult Blood, Fecal Immunosay Interpretation Positive( A) 03/31/2025 10:15 AM EDT [facility] ([place]) Stool Non-blood Collection / Unknown 03/28/2025 4:18 PM EDT 03/28/2025 4:27 PM EDT Narrative [facility] ([place]) - 03/31/2025 10:15 AM EDT INTERPRETIVE INFORMATION: Fecal Occult Blood by Immunoassay No single cutoff provides superior colorectal cancer detection rates. The test sash maker recommends the use of a 100 ng/mL cutoff that produces a specificity of approximately 95 percent for the detection of lower gastrointestinal bleeding. This test does not detect upper gastrointestinal bleeding. Performed By: [facility] [address] [place] [address] Hr Operations Advisor: Wilfrid Carr MD, PhD CLIA Number: [id number] Ramez Ma APRN, DNP LAB REF LAB BLOOD AND FLUID ORD Final Result [facility] ([place] [employer]) [address] [place] [address] * Helicobacter pylori Antigen (03/28/2025 4:18 PM EDT) [facility] Helicobacter pylori Antigen Result Negative Negative 03/28/2025 5:39 PM EDT [facility] Stool Rectum structure / Unknown Non-blood Collection / Unknown 03/28/2025 4:18 PM EDT 03/28/2025 4:33 PM EDT Yin Christopher MD LAB MICROBIOLOGY - GENE RAL ORDERABLES Final Result [facility] [address] [place] [address] * (ABNORMAL) CBC W/O Differential (03/28/2025 12:15 PM EDT) Only the most recent of15 resultswithin the time period is included. WBC Count 6.21 3.70 - 10.30 10*3/uL LAB HEMATOLOGY METHOD 03/28/2025 12:29 PM EDT [facility] RBC Count 2.38(L) 4.60 - 6.10 10*6/uL LAB HEMATOLOGY METHOD 03/28/2025 12:29 PM EDT [facility] HGB 7.0(L) 13.7 - 17.5 g/dL LAB HEMATOLOGY METHOD 03/28/2025 12:29 PM EDT [facility] HCT 22.6(L) 40.0 - 51.0 % LAB HEMATOLOGY METHOD 03/28/2025 12:29 PM EDT [facility] Platelet Count 215 155 - 369 10*3/uL LAB HEMATOLOGY METHOD 03/28/2025 12:29 PM EDT [facility] MCV 95 79 - 98 fL LAB HEMATOLOGY METHOD 03/28/2025 12:29 PM EDT [facility] MCH 29.4 26.0 - 32.0 pg LAB HEMATOLOGY METHOD 03/28/2025 12:29 PM EDT [facility] MCHC 31.0 30.7 - 35.5 g/dL LAB HEMATOLOGY METHOD 03/28/2025 12:29 PM EDT [facility] RDW 21.1(H) 11.5 - 14.5 % LAB HEMATOLOGY METHOD 03/28/2025 12:29 PM EDT [facility] MPV 10.3 8.8 - 12.5 fL LAB HEMATOLOGY METHOD 03/28/2025 12:29 PM EDT [facility] nRBC 0.0 <=0.0 per 100 WBCs LAB HEMATOLOGY METHOD 03/28/2025 12:29 PM EDT [facility] Blood Venous blood specimen / Unknown Venipuncture / Unknown 03/28/2025 12:15 PM EDT 03/28/2025 12:22 PM EDT us Yin Christopher MD LAB BLOOD ORDERABLES Fi nal Result [facility] [address] [place] [address] * (ABNORMAL) Hemoglobin and Hematocrit, Blood (03/28/2025 12:32 AM EDT) Only the most recent of13 resultswithin the time period is included. HGB 7.1(L) 13.7 - 17.5 g/dL LAB HEMATOLOGY METHOD 03/28/2025 1:01 AM EDT [facility] HCT 22.7(L) 40.0 - 51.0 % LAB HEMATOLOGY METHOD 03/28/2025 1:01 AM EDT [facility] Blood Venous blood specimen / Unknown Venipuncture / Unknown 03/28/2025 12:32 AM EDT 03/28/2025 12:45 AM EDT us Ramez Ma APRN, DNP LAB BLOOD ORDERAB LES Final Result [facility] [address] [place] [address] * (ABNORMAL) Basic metabolic panel (03/26/2025 12:17 AM EDT) Only the most recent of6 resultswithin the time period is included. Glucose, Plasma 99 74 - 99 mg/dL 03/26/2025 12:54 AM EDT [facility] BUN, Plasma 24(H) 8 - 23 mg/dL 03/26/2025 12:54 AM EDT [facility] Creatinine, Plasma 0.75 0.70 - 1.20 mg/dL 03/26/2025 12:54 AM EDT [facility] BUN/Creatinine Ratio 32 03/26/2025 12:54 AM EDT [facility] Sodium, Plasma 137 136 - 145 mmol/L 03/26/2025 12:54 AM EDT [facility] Potassium, Plasma 4.1 3.6 - 4.9 mmol/L 03/26/2025 12:54 AM EDT [facility] Chloride, Plasma 107 97 - 107 mmol/L 03/26/2025 12:54 AM EDT [facility] CO2, Plasma 19(L) 22 - 29 mmol/L 03/26/2025 12:54 AM EDT [facility] Anion Gap 11 6 - 16 mmol/L 03/26/2025 12:54 AM EDT [facility] Total Calcium, Plasma 7.9(L) 8.9 - 10.2 mg/dL 03/26/2025 12:54 AM EDT [facility] eGFRcr 99.5 mL/min/1.7 3m*2 03/26/2025 12:54 AM EDT [facility] Comment:Reported eGFRcr in m L/min/1.73m2 is based the CKD-EPI 2020 equation that does not use a race coefficient. Blood Venous blood specimen / Unknown Venipuncture / Unknown 03/26/2025 12:17 AM EDT 03/26/2025 12:26 AM EDT us Ramezgucci Ma APRN, DNP LAB BLOOD ORDERAB LES Final Result [facility] [address] [place] [address] * EGD MEAGAN AGGARWAL; 03/25/2025 (03/25/2025 5:22 [...] abdominal pain, fever, gastrointestinal bleeding and call eviction specialist GI if present. - Findings and recommendations were discussed with patient. - Findings and recommendations to be conveyed to primary team. Indication Acute GI bleeding Medications See anesthesia record for anesthesia administered medications. Staff Staff Role Elbert Monreal, Darleen Garces CRNA Minister Betsy Ellis RN Endo Nurse Meagan Aggarwal [...] 8:28 AM EDT) Only the most recent of2 resultswithin the time period is included. Troponin T, High Sensitivity, 2 Hour 74(H) <19 ng/L 03/25/2025 9:14 AM EDT [facility] Troponin Delta 3 <10 ng/L 03/25/2025 9:14 AM EDT [facility] Troponin Delta Interpretation Not Significant 03/25/2025 9:14 AM EDT [facility] Comment:Not Significant. No acute change in troponin observed between the baseline and 2 hour samples. Blood Venous blood specimen / Unknown Venipuncture / Unknown 03/25/2025 8:28 AM EDT 03/25/2025 8:44 AM EDT us Ramez Ma APRN, DNP LAB BLOOD ORDERAB LES Final Result Performing Organization Address City/[facility]/ZIP Co de Phone Number [facility] [address] [place] [address] * (ABNORMAL) Troponin T, High Sensitivity, 0 Hour Plasma, Reflex to 2 Hour (03/25/2025 6:23 AM EDT) Only the most recent of3 resultswithin the time period is included. Troponin T, High Sensitivity, 0 Hour 77(H) <19 ng/L 03/25/2025 6:58 AM EDT [facility] Blood Venous blood specimen / Unknown Venipuncture / Unknown 03/25/2025 6:23 AM EDT 03/25/2025 6:29 AM EDT us Ramez Ma APRN, DNP LAB BLOOD ORDERAB LES Final Result Performing Organization Address City/[facility] Co de Phone Number [facility] [address] [place] [address] * Lactate, venous (03/25/2025 6:23 AM EDT) Lactate, Venous, Whole Blood 0.8 0.5 - 2.2 mmol/L LAB HEMATOLOGY METHOD 03/25/2025 6:28 AM EDT [facility] Blood Venous blood specimen / Unknown Venipuncture / Unknown 03/25/2025 6:23 AM EDT 03/25/2025 6:27 AM EDT us Ramez Ma APRN, DNP LAB BLOOD ORDERAB LES Final Result Performing Organization Address City/[facility]/ZIP Co de Phone Number [facility] [address] [place] [address] * Haptoglobin (03/25/2025 6:23 AM EDT) Haptoglobin, Serum 167 40 - 219 mg/dL 03/25/2025 6:59 AM EDT [facility] Blood Venous blood specimen / Unknown Venipuncture / Unknown 03/25/2025 6:23 AM EDT 03/25/2025 6:29 AM EDT us Ramezgucci Ma APRN, JESSE LAB BLOOD ORDERAB LES Final Result Performing Organization Address City/[facility]/ZIP Co de Phone Number [facility] [address] [place] [address] * (ABNORMAL) Iron & Total Iron Binding Capacity, Plasma (Includes Transferrin) (03/25/2025 3:36 AM EDT) Only the most recent of2 resultswithin the time period is included. Iron, Plasma 81 50 - 170 ug/dL 03/25/2025 6:04 AM EDT [facility] Transferrin, Plasma 195(L) 200 - 360 mg/dL 03/25/2025 6:04 AM EDT [facility] Total Iron Binding Capacity, Plasma 244 240 - 450 ug/mL 03/25/2025 6:04 AM EDT [facility] Transferrin Saturation 33 14 - 50 % 03/25/2025 6:04 AM EDT [facility] Blood Venous blood specimen / Unknown Venipuncture / Unknown 03/25/2025 3:36 AM EDT 03/25/2025 3:50 AM EDT us Ramez Ma APRN, [facility] LAB BLOOD ORDERAB LES Final Result Performing Organization Address City/[facility]/ZIP Co de Phone Number [facility] [address] [place] [address] * C-reactive protein (03/25/2025 3:36 AM EDT) Only the most recent of3 resultswithin the time period is included. CRP, Plasma 6.3 <=8.0 mg/L 03/25/2025 6:04 AM EDT [facility] Blood Venous blood specimen / Unknown Venipuncture / Unknown 03/25/2025 3:36 AM EDT 03/25/2025 3:50 AM EDT Narrative [facility] - 03/25/2025 6:04 AM EDT This CRP test is appropriate for assessment of infection, systemic inflammation and/or tissue injury. To assess cardiovascular disease risk order high sensitivity CRP (CRPH). us Ramez Ma APRN, DNP LAB BLOOD ORDERAB LES Final Result Performing Organization Address [facility]/ZIP Co de Phone Number [facility] [address] [place] [address] * (ABNORMAL) Hepatic function panel (03/25/2025 3:36 AM EDT) Conjugated Bilirubin, Plasma 0.5(H) <=0.3 mg/dL 03/25/2025 4:22 AM EDT [facility] Alkaline Phosphatase, Plasma 74 40 - 115 U/L 03/25/2025 4:22 AM EDT [facility] Total Bilirubin, Plasma 1.0 0.2 - 1.1 mg/dL 03/25/2025 4:22 AM EDT [facility] Albumin, Plasma 2.7(L) 3.5 - 5.2 g/dL 03/25/2025 4:22 AM EDT [facility] Total Protein 5.1(L) 6.3 - 7.9 g/dL 03/25/2025 4:22 AM EDT [facility] ALT, Plasma 21 10 - 50 U/L 03/25/2025 4:22 AM EDT [facility] AST, Plasma 26 10 - 50 U/L 03/25/2025 4:22 AM EDT [facility] Blood Venous blood specimen / Unknown Venipuncture / Unknown 03/25/2025 3:36 AM EDT 03/25/2025 3:50 AM EDT us Naga Hidalgo MD LAB BLOOD ORDERABLES Final Re sult Performing Organization Address [facility]/ZIP Co de Phone Number [facility] [address] [place] [address] * ECG Adult (03/25/2025 3:31 AM EDT) Only the most recent of2 resultswithin the time period is included. EKG DIAGNOSIS CLASS Abnormal MUSE ECG Ventricular Rate 62 BPM MUSE ECG Atrial Rate 62 BPM MUSE ECG WV Interval 182 ms MUSE ECG QRSD Interval 94 ms MUSE ECG QT Interval 450 ms MUSE ECG QTC Interval 456 ms MUSE ECG P Nelson 69 degrees MUSE ECG R Nelson 42 degrees MUSE ECG T Wave Nelson 138 degrees MUSE ECG Diagnosis Normal sinus [...] Naga Hidalgo MD ECG ORDERABLES Final Result MUSE ECG * Procalcitonin (03/25/2025 3:29 AM EDT) Only the most recent of2 resultswithin the time period is included. Procalcitonin, Plasma 0.08 <0.09 ng/mL 03/25/2025 6:09 AM EDT [facility] Blood Venous blood specimen / Unknown Venipuncture / Unknown 03/25/2025 3:29 AM EDT 03/25/2025 3:50 AM EDT Narrative [facility] - 03/25/2025 6:09 AM [...] predict 28 day mortality risk. Please consult [email or web address]-gbk-[email or web address] for more information. Test performed at [facility], [facility] Laboratory. us Ramez N Aylabetamanna PRESCHOOL PARAPROFESSIONAL, DNP LAB BLOOD ORDERAB LES Final Result Performing Organization Address [facility]/[place] [address] * (ABNORMAL) N-Terminal Probnp (03/25/2025 3:29 AM EDT) Only the most recent of5 resultswithin the time period is included. N-Terminal, PROBNP, Plasma 1,495(H) 0 - 899 pg/mL 03/25/2025 6:09 AM EDT [facility] Blood Venous blood specimen / Unknown Venipuncture / Unknown 03/25/2025 3:29 AM EDT 03/25/2025 3:50 AM EDT us Ramez N Bostonupambeya PRESCHOOL PARAPROFESSIONAL, DNP LAB BLOOD ORDERAB LES Final Result Performing Organization Address [facility] [place] [address] * (ABNORMAL) PT-INR (03/25/2025 3:29 AM EDT) Prothrombin Time 20.1(H) 12.0 - 14.3 sec 03/25/2025 3:47 AM EDT [facility] INR 1.7(H) 0.9 - 1.1 03/25/2025 3:47 AM EDT [facility] Blood Venous blood specimen / Unknown Venipuncture / Unknown 03/25/2025 3:29 AM EDT 03/25/2025 3:32 AM EDT Narrative [facility] - 03/25/2025 3:47 AM EDT OPTIMAL INR RANGES FOR PATIENT ON ORAL ANTICOAGULANT THERAPY Prevention of venous thromboembolism INR 2.0 to 3.0 In patients with heart disease: Atrial fibrillation INR 2.0 to 3.0 Valvular heart disease INR 2.0 to 3.0 Tissue heart valves INR 2.0 to 3.0 Mechanical prosthetic valves INR 2.5 to 3.5 Prevention of recurrent NE INR 2.5 to 3.5 us Naga Hidalgo MD LAB BLOOD ORDERABLES Final Re sult Performing Organization Address [facility] Co de Phone Number [facility] [address] [place] [address] * (ABNORMAL) Reticulocytes (03/25/2025 3:29 AM EDT) Reticulocyte Absolute 214.2(H) 40.0 - 110.0 10*3/uL LAB HEMATOLOGY METHOD 03/25/2025 5:46 AM EDT [facility] Immature Reticulocyte Fraction 43.1(H) 3.1 - 17.6 % LAB HEMATOLOGY METHOD 03/25/2025 5:46 AM EDT [facility] Reticulocyte Hemoglobin 29.9 28 - 38 pg LAB HEMATOLOGY METHOD 03/25/2025 5:46 AM EDT [facility] Reticulocyte Count 8.50(H) 0.90 - 2.50 % LAB HEMATOLOGY METHOD 03/25/2025 5:46 AM EDT [facility] Blood Venous blood specimen / Unknown Venipuncture / Unknown 03/25/2025 3:29 AM EDT 03/25/2025 3:32 AM EDT us Ramez Ma APRN, DNP LAB BLOOD ORDERAB LES Final Result Performing Organization Address City/[facility]/ZIP Co de Phone Number [facility] [address] [place] [address] * Lactate dehydrogenase (03/25/2025 3:29 AM EDT) LDH, Plasma 236 116 - 250 U/L 03/25/2025 6:09 AM EDT [facility] Blood Venous blood specimen / Unknown Venipuncture / Unknown 03/25/2025 3:29 AM EDT 03/25/2025 3:50 AM EDT us Ramez N Maduoctavio ZANA, DNP LAB BLOOD ORDERAB LES Final Result [facility] [address] [place] [address] * XR Chest 1 View (03/17/2025 5:20 AM EDT) Only the most recent of13 resultswithin the time period is included. Anatomical [...] MD on 03/17/2025 7:38 AM us Marily Garcia PRESCHOOL PARAPROFESSIONAL IMG XR PROCEDURES Final Resu lt * [place] CARDIOVERSION, ELECTIVE;CHIEF INVESTMENT OFFICER, HC CARDIOVERSION ELECTIVE ARRHYTHMIA EXTERNAL (03/16/2025 12:42 PM EDT) Narrative Dimitrios Wright MD - 03/16/2025 12:42 PM EDDimitrios Ramos MD 03/17/2025 8:03 AM Electrical Cardioversion Performed by: Negrito Galvan MD Authorized by: Lata Sahu MD Consent: Consent obtained: Written Consent given by: Patient Risks, benefits, and alternatives were discussed: yes Risks discussed: Cutaneous burn, induced arrhythmia, and pain Alternatives discussed: Rate-control medication Cecil protocol: Procedure explained and questions answered to [...] was reviewed interactively on an advanced workstation ([employer]) capable of 2 and 3 dimensional displays [...] Data was reviewed interactively on an advanced workstation([employer]) capable of 2 and 3 dimensional displays [...] Root Diam 35 mm GUILLERMINA ISCV PA WV(ACCEL) 25.9 mmHg GUILLERMINA ISCV LVLs ap2 8.1 [...] WOUND Light Growth 03/16/2025 10:40 AM EDT [facility] CULTURE READING WOUND 1+ Biotype 1 Escherichia coli(A) DUSTIN 03/16/2025 10:40 AM EDT [facility] Comment: This isolate has been identified using the FDA Approved MALDI Colibri Heart Valveyper CA System The organism value for this result has been updated. These results have been appended to the previously preliminary verified report. Edited result: Previously reported as Gram Negative Cam on 03/14/2025 at 0735 EDT. CULTURE READING WOUND 1+ Schaalia turicensis (formerly known as Actinomyces turicensis)(A) DUSTIN 03/16/2025 10:40 AM EDT [facility] Comment: This isolate has been identified using the FDA Approved MALDI Colibri Heart Valveyper CA System The organism value for this result has been updated. These results have been appended to the previously preliminary verified report. CULTURE READING WOUND 1+ Biotype 2 Escherichia coli(A) DUSTIN 03/16/2025 10:40 AM EDT [facility] Comment: The organism value for this result has been updated. These results have been appended to the previously preliminary verified report. Edited result: Previously reported as Gram Negative Cam on 03/15/2025 at 1158 EDT. Gram Stain Result Moderate Polymorphonuclear leukocytes(A) 03/16/2025 10:40 AM EDT [facility] Gram Stain Result Moderate Gram positive cocci in pairs(A) 03/16/2025 10:40 AM EDT [facility] Gram Stain Result Few Gram negative diplococci(A) 03/16/2025 10:40 AM EDT [facility] Swab Skin and/or subcutaneous [...] DUSTIN <=0.25 ug/ml: Susceptible Escherichia coli Gentamicin DUSTNI >8 ug/ml: Resistant Escherichia coli Levofloxacin DUSTIN [...] MICROBIOLOGY - GENERA L ORDERABLES Final Result [facility] [address] [place] [address] * [place] DRAIN SKIN ABSCESS COMPLIC (03/12/2025 5:54 AM [...] No treatment, delayed treatment and alternative treatment Cecil protocol: Procedure explained and questions answered to [...] completion: Tolerated well, no immediate complications us Jo Curtis MD IN CLINIC/BEDSIDE ORDERAB LES Final Result * Anti Xa Level Low Molecular Weight (03/12/2025 3:59 AM EDT) Anti Xa Level Low Molecular Weight Heparin 1.32 <2.00 IU/mL 03/12/2025 4:15 AM EDT [facility] Blood Venous blood specimen / Unknown Venipuncture / Unknown 03/12/2025 3:59 AM EDT 03/12/2025 4:01 AM EDT Narrative [facility] - 03/12/2025 4:15 AM EDT Therapeutic Range: LMWH enoxaparin 1mg/kg/dose, 12hrs - peak (3-5 hours after dose): 0.5 - 1.0 IU/mL LMWH enoxaparin 1.5mg/kg/dose, 24hrs - peak (3-5 hours after dose): 1.0 - 2.0 IU/mL LMWH enoxaparin prophylaxis: Not established us Sloane Baum LAB BLOOD ORDERABLES Final Resul t [facility] [address] [place] [address] * (ABNORMAL) Lipase (03/12/2025 3:59 AM EDT) [facility] Lipase, Plasma 17(L) 19 - 63 U/L 03/12/2025 4:35 AM EDT [facility] Blood Venous blood specimen / Unknown Venipuncture / Unknown 03/12/2025 3:59 AM EDT 03/12/2025 4:04 AM EDT us Sloane Baum LAB BLOOD ORDERABLES Final Resul t [facility] [address] [place] [address] * POC Imaging (03/12/2025) Anatomical Region Laterality Modality Pelvis Other 03/12/2025 us External Provider IMG POINT OF CARE ULTRASOUND F inal Result * POCT glucose meter (03/02/2025 11:30 AM EDT) Only the most recent of11 resultswithin the time period is included. [facility] POCT Glucose 98 74 - 99 mg/dL [...] for testing. Comment 03/02/2025 11:31 AM EDT [facility] Compliance Assistant ID Catalina Leonardo 025 11:31 AM EDT [facility] Device ID [id number] 03/02/2025 11:31 AM EDT [facility] Specimen Type POC Capillary 03/02/2025 11:31 AM EDT [facility] Blood Capillary blood specimen / Unknown 03/02/2025 11:30 AM EDT 03/02/2025 11:31 AM EDT us Lata Sahu MD LAB POINT OF CARE TE ST DOCKED DEVICE UNSOLICITED RESULTS Final Result [facility] [address] [place] [address] * (ABNORMAL) Renal Function Panel, Plasma (03/02/2025 12:20 AM EDT) Only the most recent of5 resultswithin the time period is included. Glucose, Plasma 93 74 - 99 mg/dL 03/02/2025 1:21 AM EDT [facility] BUN, Plasma 28(H) 8 - 23 mg/dL 03/02/2025 1:21 AM EDT [facility] Creatinine, Plasma 0.63(L) 0.70 - 1.20 mg/dL 03/02/2025 1:21 AM EDT [facility] BUN/Creatinine Ratio 44 03/02/2025 1:21 AM EDT [facility] Sodium, Plasma 134(L) 136 - 145 mmol/L 03/02/2025 1:21 AM EDT [facility] Potassium, Plasma 3.9 3.6 - 4.9 mmol/L 03/02/2025 1:21 AM EDT [facility] Chloride, Plasma 102 97 - 107 mmol/L 03/02/2025 1:21 AM EDT [facility] CO2, Plasma 18(L) 22 - 29 mmol/L 03/02/2025 1:21 AM EDT [facility] Anion Gap 14 6 - 16 mmol/L 03/02/2025 1:21 AM EDT [facility] Total Calcium, Plasma 8.3(L) 8.9 - 10.2 mg/dL 03/02/2025 1:21 AM EDT [facility] Phosphorus, Plasma 3.2 2.5 - 4.5 mg/dL 03/02/2025 1:21 AM EDT [facility] Albumin, Plasma 2.9(L) 3.5 - 5.2 g/dL 03/02/2025 1:21 AM EDT [facility] eGFRcr 104.9 mL/min/1.7 3m*2 03/02/2025 1:21 AM EDT [facility] Comment:Reported eGFRcr in m L/min/1.73m2 is based the CKD-EPI 2020 equation that does not use a race coefficient. Blood Venous blood specimen / Unknown Venipuncture / Unknown 03/02/2025 12:20 AM EDT 03/02/2025 12:27 AM EDT Chuy SANDOVAL LAB BLOOD ORDERABLES Final Result [facility] [address] [place] [address] * XR Chest 2 Views (03/01/2025 4:58 AM EDT) Anatomical Region Laterality Modality Chest Computed Radiogr [...] Mauro Paredes MD on 03/01/2025 10:09 AM us Chuy SANDOVAL IMG XR PROCEDURES Final Res ult * [place] [facility], E/M 30-74 MINUTES (02/25/2025 12:48 [...] on 02/25/2025 3:08 PM us Joy Fleming PRESCHOOL PARAPROFESSIONAL, CONFERENCE CONCIERGE, DNP IMG XR PROCEDURES Final Result * (ABNORMAL) Blood gas panel with oximetry, mixed venous (02/25/2025 3:39 AM EDT) Only the most recent of3 resultswithin the time period is included. pH, Mixed Venous 7.44(H) 7.32 - 7.43 LAB HEMATOLOGY METHOD 02/25/2025 3:58 AM EDT [facility] pCO2, Mixed Venous 36(L) 40 - 55 mmHg LAB HEMATOLOGY METHOD 02/25/2025 3:58 AM EDT [facility] pO2, Mixed Venous 31 25 - 40 mmHg LAB HEMATOLOGY METHOD 02/25/2025 3:58 AM EDT [facility] SO2, Measured, Mixed Venous 54(L) 65 - 80 % LAB HEMATOLOGY METHOD 02/25/2025 3:58 AM EDT [facility] Bicarbonate, Calculated, Mixed Venous 25 22 - 26 mmol/L LAB HEMATOLOGY METHOD 02/25/2025 3:58 AM EDT [facility] Base Excess, Mixed Venous 0.8 -2.0 - 3.0 mmol/L LAB HEMATOLOGY METHOD 02/25/2025 3:58 AM EDT [facility] Hematocrit, Whole Blood 29.0(L) 40.0 - 51.0 % LAB HEMATOLOGY METHOD 02/25/2025 3:58 AM EDT [facility] Sodium, Whole Blood 141 136 - 145 mmol/L LAB HEMATOLOGY METHOD 02/25/2025 3:58 AM EDT [facility] Potassium, Whole Blood 3.6 3.6 - 4.9 mmol/L LAB HEMATOLOGY METHOD 02/25/2025 3:58 AM EDT [facility] Chloride, Whole Blood 106 97 - 107 mmol/L LAB HEMATOLOGY METHOD 02/25/2025 3:58 AM EDT [facility] Ionized Calcium, Whole Blood 4.5(L) 4.6 - 5.1 mg/dL LAB HEMATOLOGY METHOD 02/25/2025 3:58 AM EDT [facility] Glucose, Whole Blood 93 74 - 99 mg/dL LAB HEMATOLOGY METHOD 02/25/2025 3:58 AM EDT [facility] Oxyhemoglobin, Mixed Venous, Whole Blood 52.6 40.0 - 70.0 % LAB HEMATOLOGY METHOD 02/25/2025 3:58 AM EDT [facility] Hemoglobin Reduced, Mixed Venous, Whole Blood 45.1 % LAB HEMATOLOGY METHOD 02/25/2025 3:58 AM EDT [facility] Total Hemoglobin, Mixed Venous, Whole Blood 9.5(L) 13.7 - 17.5 g/dL LAB HEMATOLOGY METHOD 02/25/2025 3:58 AM EDT [facility] Blood Mixed venous blood specimen / Unknown Venipuncture / Unknown 02/25/2025 3:39 AM EDT 02/25/2025 3:55 AM EDT us Lata Sahu MD LAB BLOOD ORDERABLES Final Resu lt [facility] [address] [place] [address] * (ABNORMAL) Blood gas, arterial (02/25/2025 3:33 AM EDT) Only the most recent of2 resultswithin the time period is included. pH, Arterial 7.48(H) 7.31 - 7.42 LAB HEMATOLOGY METHOD 02/25/2025 3:59 AM EDT [facility] pCO2, Arterial 31(L) 32 - 45 mmHg LAB HEMATOLOGY METHOD 02/25/2025 3:59 AM EDT [facility] pO2, Arterial 72(L) >80 mmHg LAB HEMATOLOGY METHOD 02/25/2025 3:59 AM EDT [facility] SO2, Measured, Arterial 96 94 - 98 % LAB HEMATOLOGY METHOD 02/25/2025 3:59 AM EDT [facility] Base Excess, Arterial 0.0 -2.0 - 3.0 mmol/L LAB HEMATOLOGY METHOD 02/25/2025 3:59 AM EDT [facility] Bicarbonate, Calculated, Arterial 23 22 - 26 mmol/L LAB HEMATOLOGY METHOD 02/25/2025 3:59 AM EDT [facility] Hematocrit, Whole Blood 28.5(L) 40.0 - 51.0 % LAB HEMATOLOGY METHOD 02/25/2025 3:59 AM EDT [facility] Sodium, Whole Blood 140 136 - 145 mmol/L LAB HEMATOLOGY METHOD 02/25/2025 3:59 AM EDT [facility] Potassium, Whole Blood 3.6 3.6 - 4.9 mmol/L LAB HEMATOLOGY METHOD 02/25/2025 3:59 AM EDT [facility] Chloride, Whole Blood 107 97 - 107 mmol/L LAB HEMATOLOGY METHOD 02/25/2025 3:59 AM EDT [facility] Glucose, Whole Blood 91 74 - 99 mg/dL LAB HEMATOLOGY METHOD 02/25/2025 3:59 AM EDT [facility] Ionized Calcium, Whole Blood 4.5(L) 4.6 - 5.1 mg/dL LAB HEMATOLOGY METHOD 02/25/2025 3:59 AM EDT [facility] Lactate, Arterial, Whole Blood 1.2 0.5 - 1.6 mmol/L LAB HEMATOLOGY METHOD 02/25/2025 3:59 AM EDT [facility] Blood Arterial blood specimen / Unknown Arterial Puncture / Unknown 02/25/2025 3:33 AM EDT 02/25/2025 3:55 AM EDT Ramandeep Sunshine APRN LAB BLOOD ORDERABLES Final Result Performing Organization Address City/State/[facility] Co de Phone Number [facility] [address] [place] [address] * [place] [facility], E/M 30-74 MINUTES (02/24/2025 3:29 [...] nursing services were present on rounds. us Ramandeep Sunshine APRN IN CLINIC/BEDSIDE ORDERABL ES Final Result * Potassium (02/24/2025 1:15 PM EDT) Potassium, Plasma 3.6 3.6 - 4.9 mmol/L 02/24/2025 1:59 PM EDT [facility] Blood Venous blood specimen / Unknown Venipuncture / Unknown 02/24/2025 1:15 PM EDT 02/24/2025 1:37 PM EDT Ramandeep Sunshine APRN LAB BLOOD ORDERABLES Final Result Performing Organization Address City/State/[facility] Co de Phone Number [facility] [address] [place] [address] * (ABNORMAL) Blood gas panel, mixed venous (02/24/2025 1:14 PM EDT) pH, Mixed Venous 7.46(H) 7.32 - 7.43 LAB HEMATOLOGY METHOD 02/24/2025 1:24 PM EDT [facility] pCO2, Mixed Venous 38(L) 40 - 55 mmHg LAB HEMATOLOGY METHOD 02/24/2025 1:24 PM EDT [facility] pO2, Mixed Venous 26 25 - 40 mmHg LAB HEMATOLOGY METHOD 02/24/2025 1:24 PM EDT [facility] SO2, Measured, Mixed Venous 41(L) 65 - 80 % LAB HEMATOLOGY METHOD 02/24/2025 1:24 PM EDT [facility] Base Excess, Mixed Venous 2.9 -2.0 - 3.0 mmol/L LAB HEMATOLOGY METHOD 02/24/2025 1:24 PM EDT [facility] Bicarbonate, Calculated, Mixed Venous 27(H) 22 - 26 mmol/L LAB HEMATOLOGY METHOD 02/24/2025 1:24 PM EDT [facility] Hematocrit, Whole Blood 25.7(L) 40.0 - 51.0 % LAB HEMATOLOGY METHOD 02/24/2025 1:24 PM EDT [facility] Sodium, Whole Blood 142 136 - 145 mmol/L LAB HEMATOLOGY METHOD 02/24/2025 1:24 PM EDT [facility] Potassium, Whole Blood 3.5(L) 3.6 - 4.9 mmol/L LAB HEMATOLOGY METHOD 02/24/2025 1:24 PM EDT [facility] Chloride, Whole Blood 105 97 - 107 mmol/L LAB HEMATOLOGY METHOD 02/24/2025 1:24 PM EDT [facility] Ionized Calcium, Whole Blood 4.5(L) 4.6 - 5.1 mg/dL LAB HEMATOLOGY METHOD 02/24/2025 1:24 PM EDT [facility] Glucose, Whole Blood 102(H) 74 - 99 mg/dL LAB HEMATOLOGY METHOD 02/24/2025 1:24 PM EDT [facility] Blood Mixed venous blood specimen / Unknown Venipuncture / Unknown 02/24/2025 1:14 PM EDT 02/24/2025 1:21 PM EDT us Lata Sahu MD LAB BLOOD ORDERABLES Final Resu lt Performing Organization Address City/[facility]/ZIP Co de Phone Number [facility] [address] [place] [address] * Hepatitis C antibody (02/21/2025 10:36 PM EDT) Hepatitis C Antibody Negative Negative 02/21/2025 11:38 PM EDT [facility] Blood Venous blood specimen / Unknown Venipuncture / Unknown 02/21/2025 10:36 PM EDT 02/21/2025 10:49 PM EDT Jolene Montes De Oca MD LAB BLOOD ORDERABLES Final Result Performing Organization Address City/[facility]/ZIP Co de Phone Number [facility] [address] [place] [address] from Last 3 Months or Most Recently Relevant to Health Maintenance Additional Health Concerns Active Problems Noted Date Diagnosed Date Autogenerated Problem 03/25/2025 Insurance [id number] [place] [id number] [facility] MEDICARE [facility] MEDICAID Advance Directives * Full Code [...] 7:33 PM 02/21/2025 9:54 PM Care Teams Appeals Manager Relationship Specialty Start Date End Date Kiera Castro APRN [address] [place] [address] PCP - General 02/17/25
--- OUTSIDE RECORDS SUMMARY | 2025-05-26 16:19 | XMS_ITS | Encounter Summary ---
Author Organization Healthcare Address [address] [place] [address] Care Team Providers Care Microfilm Machine Operator Name Role Phone Kiera Castro APRN Primary Care Provider [phone] Lucero Stafford LPN Unavailable Unavailable Reason for Visit * Reason Comments TCM Call Encounter Details Date Type Department Care Team (Late Contact Info) Description 04/01/2025 Patient Outreach [facility] [address], [address] [place] [address] Lucero Stafford LPN [employer] [place] [address] TCM Call Social History Tobacco Use Types [...] any time in the past 12 m [facility], were you homeless or living in a detention (including now)? No 03/27/2025 Utilities Answer Date Recorded In the past 12 months has th e [employer], gas, oil, or water company threatened to [...] dated 03/31/2025: Patient has been referred to [facility] In- Home Wound Care; RNCMcontacted agency regarding plan for discharge to home today. Williams Rubin with [employer] confirms that documentation has been received, and [facility] has approved this in-home care. documented in this encounter Plan of Treatment Upcoming Encounters Date Type Department Care Team (Late st Contact Info) Description 08/03/2025 12:40 PM EDT Office Visit [facility] [place] [address] [place] [address] Dimitrios Wright MD [address] [place] [address] documented as of this encounter Goals Goal [...] documented as of this encounter Care Teams Microfilm Machine Operator Relationship Specialty Start Date End Date Kiera Castro APRN [address] [place] [address] PCP - General 02/17/25 Lucero Stafford LPN [employer] [place] [address] TCM Nurse 04/01/25 05/01/25 documented as of this encounter
--- OUTSIDE RECORDS SUMMARY | 2025-05-26 16:20 | XMS_ITS | Encounter Summary ---
Author Organization Healthcare Address [address] [place] [address] Care Team Providers Care Flexographic Printing Machinist Name Role Phone Matthew Kiera Whitmore APRN Primary Care Provider [phone] Lucero Stafford LPN Unavailable Unavailable Encounter Details Date Type Department Care Team (Late st Contact Info) Description 02/22/2025 Lab Requisition [facility] [address] [place] [address] Sohail Alex MD [address] [place] [address] Encounter for general adult medical [...] living in a chcf (including now)? No 02/17/2025 Utilities Answer Date [...] Description 08/03/2025 12:40 PM EDT Office Visit [facility] [place] [address] [place] [address] Dimitrios Wright MD [address] [place] [address] documented as of this encounter Procedures Procedure Name Priority Date/Time Associated Diagnosis Comments MULTI DRUG RESISTANCE TEST Routine 02/22/2025 11:00 AM EDT Encounter for general adult medical examination without abnormal findings documented in this encounter Results * Multi Drug Resistance Test (02/22/2025 11:00 AM EDT) Culture No growth at day 1 02/23/2025 9:05 AM EDT [facility] Swab (Nares and Leslie Rectal) 02/22/2025 11:00 AM EDT 02/22/2025 11:49 AM EDT us Sohail Alex MD LAB MICROBIOLOGY - GEN ERAL ORDERABLES Final Result [facility] [address] [place] [address] documented in this encounter Visit Diagnoses Diagnosis Encounter for general adult medical examination without abnormal findings documented in this encounter Additional Health Concerns Assessment Noted Time A Body Mass Index follow-up plan has been documented for the patient 03/02/2025 1:29 PM EDT documented as of this encounter Care Teams Flexographic Printing Machinist Relationship Specialty Start Date End Date Kiera Castro APRN [address] [place] [address] PCP - General 02/17/25 Lucero Stafford LPN [employer] [place] [address] TCM Nurse 04/01/25 05/01/25 documented as of this encounter
[2025-05-26 17:01] LABS: Hematocrit 20.2 % (42.0-52.0)
[2025-05-26 17:13] LABS: Anion Gap 12.5 mEq/L (5-15); Blood Urea Nitrogen 23 mg/dl (9-20); Calcium 9.4 mg/dl (8.4-10.2); Carbon Dioxide 25 mmol/L (22.0-30.0); Chloride 104 mmol/L (98-107); Creatinine,Serum 0.80 mg/dl (0.66-1.25); Estimated Glomerular Filt Rate 97 ml/min (>60); GFR (African American) 117 ML/MIN (>60); Glucose 87 mg/dl (74-100); Hemoglobin 5.7 g/dL (14.1-18.0); Potassium 4.5 mmoL/L (3.5-5.1); Sodium 137 mmol/L (136-145)
[2025-05-26 17:55] LABS: Iron 26 ug/dL (49-181)
[2025-05-26 18:04] LABS: Total Iron Binding Capacity 411 ug/dL (261-462)
[2025-05-26 18:34] LABS: Ferritin 12.0 ng/ml (17.9-464)
== END 2025-05-26 23:59 | disposition home or self-care (01) ==
LOC: LAB.DROPOF 16:17
PROVIDERS: PCP Nurse Practitioner Family; Visit Provider Nurse Practitioner Family
DX: D64.9 Anemia, unspecified (principal); R53.83 Other fatigue
CPT/HCPCS: 80048; 82728; 83540; 83550; 85025

== ENCOUNTER 2025-05-27 10:10 | Inpatient (IN) | payer MEDICARE, OTHER, SELFPAY ==
--- OUTSIDE RECORDS SUMMARY | 2025-03-25 03:17 | XMS_ITS | Encounter Summary ---
Author Organization Healthcare Address [address] [place] [address] Care Team Providers Care Auto Camp Attendant Name Role Phone Kiera Castro APRN Primary Care Provider [phone] Reason for Referral * Consultation (Routine) - Authorized Specialty Diagnoses / Procedures Referred By Contac t Referred To Contact Gastroenterology Diagnoses Duodenal ulcer Sirena Hopkins MD [address] [place] [address] Phone: tel: fax: [facility] [address] [place] [address] Phone: tel: Referral ID Status Reason Start Date Expiration Date Visits Requested Visits Authorized [id number] Authorized Specialty Services Required 03/31/2025 09/30/2026 1 1 * Consultation (Routine) - Authorized Specialty Diagnoses / Procedures Referred By Contac t Referred To Contact Cardiology Diagnoses Persistent atrial fibrillation (CMS/HCC) Sirena Hopkins MD [address] [place] [address] Phone: tel: fax: Referral ID Status Reason Start Date Expiration Date Visits Requested Visits Authorized [id number] Authorized Specialty Services Required 03/31/2025 09/30/2026 1 1 * Consultation (Routine) - Authorized Specialty Diagnoses / Procedures Referred By Contac t Referred To Contact Family Medicine Diagnoses Upper GI bleeding Sirena Hopkins MD [address] [place] [address] Phone: tel: fax: Referral ID Status Reason Start Date Expiration Date V isits Requested Visits Authorized [id number] Authorized 03/31/2025 09/30/2026 1 1 Reason for Visit * Reason Comments Chest Pain Weakness - Generalized Post-op Problem * Auth/Cert (Routine) Specialty Diagnoses / Procedures Referred By Contac t Referred To Contact Diagnoses Upper GI bleeding Acute GI bleeding Generalized weakness Severe anemia Low Hemoglobin, status post CABG Iliana Carpenter MD [address] [place] [address] Phone: tel: fax: [facility]patient [address] [place] [address] Phone: tel: Referral ID Status Reason Start Date Expiration Date Visits Re quested Visits Authorized [id number] 1 1 Encounter Details Date Type Department Care Team (Latest Contact Info) Description 03/25/2025 3:17 AM EDT - 03/31/2025 12:30 PM EDT Hospital Encounter [facility] [address] [place] [address] Gretchen Hidalgo MD [address] [place] [address] Iliana Carpenter MD [address] [place] [address] Yin Christopher MD [address] [place] [address] Sirena Hopkins MD [address] [place] [address] Acute GI bleeding (Primary Dx); Severe anemia; Generalized weakness; Upper GI bleeding; Persistent atrial fibrillation (CMS/HCC); Duodenal ulcer Discharge Disposition: Home-Health Care c Social History Tobacco Use Types Packs/Day Years [...] any time in the past 12 m [facility], were you homeless or living in a senior care (including now)? No 04/06/2025 Utilities Answer Date Recorded In the past 12 months has th e [employer], [employer], or [employer] threatened to shut off services in your home? No 03/27/2025 Sex and Gender Information Value Date Recorded Sex Assigned at Not on file Legal Sex Male 8:34 PM EDT Gender Identity Not on file Sexual Orientation Not on file documented as of this encounter Last Filed Vital Signs Vital Sign Reading Time Taken Comments Blood Pressure 137/69 03/31/2025 7:22 AM EDT Pulse 63 03/31/2025 7:22 AM EDT Temperature 36.5 C (97.7 F) 03/31/2025 7:22 AM EDT Respiratory Rate 17 03/30/2025 4:07 PM EDT Oxygen Saturation 99% 03/31/2025 7:22 AM EDT Inhaled Oxygen Concentration - - Weight 92.8 kg (204 lb 9.4 oz) 03/31/2025 8:00 A M EDT Height 180.3 cm (5' 10.98 ) 03/31/2025 8:00 AM E DT Body Mass Index 28.55 03/31/2025 8:00 AM EDT documented in this encounter Functional [...] this encounter Discharge Instructions * Discharge Instructions* Sirena Hopkins MD - 03/25/2025 5:14 AM EDT Continue taking a baby Aspirin (81mg daily) STOP TAKING THE BLOOD THINNER ELIQUIS (APIXABAN) until the end of March. See your family doctor to check your blood work, and if hemoglobin (blood count) is stable, resume the Eliquis at that time (by April 10). You will see the thoracic surgeon on April 21 Take two new medicines for your stomach ulcer Pantoprazole (Protonix) 40mg twice a day - take 30 minutes before all other medicines Sucralfate (Carafate) 1gram 4 times a day - before all meals and bedtime You will take these medicines for the next 2 months The stomach doctors will call you to set up a repeat scope to check the ulcer. You are done with antibiotics for the wound on your bottom. Continue wound care: Twice a day wash with soap and water. Squirt normal saline (sterile water) into the wound. Then soak some gauze in Dakin's (sodium hypochlorite) and pack it into the wound. Coverwound with dry dressing. Change this dressing twice a day or sooner if soiled. Wound care will come out to the house to help with this care. RETURN TO THE HOSPITAL If any new/worsening symptoms of abdominal pain, bloody/black bowel movements or bleeding from anywhere, chest pain, shortness of breath or heart racing. documented in this encounter Medications at Time of Discharge acetaminophen (Tylenol) 325 MG tablet Take 2 tablets by mouth every 6 hours as needed for pain, headaches or fever. Under [facility] law, monthly prescriptions (30 days) can be refilled at 25 days and three-month prescriptions (90 days) at 80 days. Please contact the insurance company with questions if refills are denied. 100 tablet 03/02/2025 amiodarone (Pacerone) 200 MG tablet Take 1 tablet by mouth daily. 03/31/2025 apixaban (Eliquis) 5 MG tablet Take 1 [...] nostril if symptoms continue 1 each 03/02/2025 pantoprazole (Protonix) 40 MG EC tablet Take 1 tablet by mouth 2 times a day. Do not crush, chew, or split. 60 tablet 1 03/31/2025 05/30/20 25 sucralfate (Carafate) 1 GM/10ML suspension Take 10 mL by mouth 4 times a day before meals and nightly. 1200 mL 03/31/2025 Tiotropium [place] Monohydrate (Spiriva Respimat) 2.5 MCG/ACT inhaler Inhale 2 puffs daily. 4 g 3 03/03/2025 oxyCODONE (Roxicodone) 5 MG immediate release tablet Take 1 tablet by mouth every 6 hours as needed for severe pain for up to 4 days. 15 tablet 03/31/2025 04/04/20 25 senna (Senokot) 8.6 MG tablet Take 1 tablet by mouth nightly. 30 tablet 03/17/2025 04/16/20 25 Sodium Hypochlorite (Dakin's, HALF-Strength,) external solution Apply topically 2 times a day. 473 mL 03/31/2025 04/30/20 25 documented as of this encounter Miscellaneous Notes * Query Clarification Note - Sirena Hopkins MD - 03/31/2025 12:30 PM EDT Physician Clarification A cause and effect relationship may not be assumed and must be documented by a provider. Please clarify if there is an associated link between the anticoagulant/antiplatelet use and the bleeding: [x] Duodenal ulcer bleeding likely related to anticoagulant/antiplatelet use [] Duodenal ulcer bleeding is not likely related to anticoagulant/antiplatelet use [] Other, please specify [] Clinically unable to determine This documentation will become part of the patient's medical record. * Hospital Course - Sirena Hopkins MD - 03/31/2025 12:30 PM EDT Mr. Nelson is a 64 yo M with PMH of CAD s/p recent CABG and bAVR (02/21/2025) who presented with acute GI bleed. He has had multiple recent admissions includin/8-03/03 for CABG and valve (d/c'd on ASA + DOAC) 03/12 - 03/17 for afib w/rvr s/p dccv and gluteal abscess (d/c'd on DOAC only) 03/20 ED visit for constipation 03/24 presented to OSH for symptomatic anemia 2/2 UGIB and transferred here. He ultimately underwent an EGD with a duodenal ulcer. Reintroduction of antiplatelet and AC resulted in continued anemia requiring transfusion. His DOAC will be held at d/c for 2 weeks and then resumed. We discussed the risk of stroke vs bleed with holding vs continuing DOAC to which he voiced understanding and opted to hold for two weeks. I discussed the details of his d/c and all med changes with his sister Ailyn. Follow up needed: PCP (within 10 days) to check hemoglobin (on dc 7.6), if stable and no ongoing melena, restart Eliquis (Two week from EGD would be 04/08) Cardiothoracic surgery as scheduled Cardiology for chronic afib management GI for repeat EGD for ulcer healing Medication changes inpatient Continue ASA only HOLD Apixaban until approx 04/08 START PPI BID and Carafate x 8 weeks All other medicines resumed on d/c without changes ABLA 2/ UGIB, duodenal ulcer, duodenitis - EGD 03/25 with duodenal ulcer and duodenitis - Hpylori negative - Cont PPI for 8 weeks BID, carafate - Repeat EGD requested - ASA only, DOAC in 2 weeks as above CAD s/p CABG, bAVR (02/21/25) pAF s/p DCCV with conversion to NSR on 03/16 - ASA only, DOAC held for 2 weeks due to ongoing bleeding post-EGD to promote ulcer healing as abovve Gluteal abscess - Noted on admission to OSH 03/11 and seen by SGE during 03/12-03/17 admission with bedside I&D. At that time completed 5 days of IV ABX; completed planned 14 days of PO ABX during inpatient stay - Sister providing wound care prior to admission, wound care orders discussed and she will continueat home, wound care clinic f/up requested * Addendum Note - Sirena Hopkins MD - 03/31/2025 12:30 PM EDTEncounter addended by: Sirena Hopkins MD on: 04/19/2025 1:26 PM Actions taken: Clinical Note Signed * Discharge Summary - Sirena Hopkins MD - 03/31/2025 12:30 PM EDT Hospitalization Admit Date/Time: 03/25/2025 3:17 AM Admitting Attending: Iliana Carpenter Discharge Date: 03/31/2025 Discharge Attending Physician: Sirena Hopkins MD PCP name and Address: Kiera Castro, HOLIDAY DETECTOR OPERATOR [address] / [place] [address] Referring provider name and address: Bianca Rinaldi MD [address] [place] [address] Chief Concern, Brief History of Present Illness, and Hospital Course Mr. Nelson is a 64 yo M with PMH of CAD s/p recent CABG and bAVR (02/21/2025) who presented with acute GI bleed. He has had multiple recent admissions includin/8-03/03 for CABG and valve (d/c'd on ASA + DOAC) 03/12 - 03/17 for afib w/rvr s/p dccv and gluteal abscess (d/c'd on DOAC only) 03/20 ED visit for constipation 03/24 presented to OSH for symptomatic anemia 2/2 UGIB and transferred here. He ultimately underwent an EGD with a duodenal ulcer. Reintroduction of antiplatelet and AC resulted in continued anemia requiring transfusion. His DOAC will be held at d/c for 2 weeks and then resumed. We discussed the risk of stroke vs bleed with holding vs continuing DOAC to which he voiced understanding and opted to hold for two weeks. I discussed the details of his d/c and all med changes with his sister Ailyn. Follow up needed: PCP (within 10 days) to check hemoglobin (on dc 7.6), if stable and no ongoing melena, restart Eliquis (Two week from EGD would be 04/08) Cardiothoracic surgery as scheduled Cardiology for chronic afib management GI for repeat EGD for ulcer healing Medication changes inpatient Continue ASA only HOLD Apixaban until approx 04/08 START PPI BID and Carafate x 8 weeks All other medicines resumed on d/c without changes ABLA 2/2 UGIB, duodenal ulcer, duodenitis - EGD 03/25 with duodenal ulcer and duodenitis - Hpylori negative - Cont PPI for 8 weeks BID, carafate - Repeat EGD requested - ASA only, DOAC in 2 weeks as above CAD s/p CABG, bAVR (02/21/25) pAF s/p DCCV with conversion to NSR on 03/16 - ASA only, DOAC held for 2 weeks due to ongoing bleeding post-EGD to promote ulcer healing as abovve Gluteal abscess - Noted on admission to OSH 03/11 and seen by SGE during 03/12-03/17 admission with bedside I&D. At that time completed 5 days of IV ABX; completed planned 14 days of PO ABX during inpatient stay - Sister providing wound care prior to admission, wound care orders discussed and she will continueat home, wound care clinic f/up requested Surgeries and Procedures EGD 03/25: Moderate, generalized erythematous mucosa with erosion in the duodenal bulb Single benign-appearing ulcer in the duodenal bulb with clean base (Ga III) Erythematous mucosa in the body of the stomach and antrum Medication List PAUSE taking these medications apixaban 5 MG tablet Wait to take this until: April 08, 2025 Commonly known as: Eliquis Take 1 tablet by mouth 2 (two) times a day. .. acetaminophen 325 MG tablet Commonly known as: Tylenol Take 2 tablets by mouth every 6 hours as needed for pain, headaches or fever. Under [place] law, monthly prescriptions (30 days) can be refilled at 25 days and three-month prescriptions (90 days) at80 days. Please contact the insurance company with questions if refills are denied. amiodarone 200 MG tablet Commonly known as: Pacerone Take 1 tablet by mouth daily. aspirin 81 MG chewable tablet Chew 1 tablet daily. atorvastatin 80 MG tablet Commonly known as: Lipitor Take 1 tablet by mouth nightly. docusate sodium 100 MG capsule Commonly known as: Colace Take 1 capsule by mouth 2 times a day. famotidine 20 MG tablet Commonly known as: Pepcid Take 1 tablet by mouth 2 times a day. metoprolol tartrate 50 MG tablet Commonly known [...] 6 hours as needed for severe pain for up to 4 days. pantoprazole 40 MG EC tablet Commonly known as: Protonix Take 1 tablet by mouth 2 times a day. Do not crush, chew, or split. senna 8.6 MG tablet Commonly known as: Senokot Take 1 tablet by mouth nightly. Sodium Hypochlorite external solution Commonly known as: Dakin's (HALF-Strength) Apply topically 2 times a day. sucralfate 1 GM/10ML suspension Commonly known as: Carafate Take 10 mL by mouth 4 times a day before meals and nightly. Tiotropium [place] Monohydrate 2.5 MCG/ACT inhaler Commonly known as: Spiriva Respimat Inhale 2 puffs daily. Where to Get Your Medications These medications were sent to [facility] - [place], [place] - [address] [facility] [id number] oxyCODONE 5 MG immediate release tablet pantoprazole 40 MG EC tablet Sodium Hypochlorite external solution sucralfate 1 GM/10ML suspension Information about where to get these medications is not yet available Ask your nurse or doctor about these medications amiodarone 200 MG tablet Discharge Diagnosis Medical Problems Active and Resolved Hospital Problems Hospital CAD, multiple vessel Overview Addendum 02/24/2025 12:00 PM by Ramandeep Sunshine APRN S/p 4vCABG and bAVR on 02/21 - ASA, statin, BB as appropriate HLD (hyperlipidemia) Overview Addendum 02/22/2025 7:41 AM by Madelin Bruce, HOLIDAY DETECTOR OPERATOR - Atorvastatin 80 mg nightly HTN (hypertension) Overview Addendum 02/24/2025 3:41 PM by Ramandeep Sunshine APRN - Resume home medications as appropriate - required nitroglycerin gtt shortly post-op for SBP < 120 - Metop 12.5 TID COPD (chronic obstructive pulmonary disease) ([facility]) Overview Addendum 02/24/2025 3:43 PM by Ramandeep Sunshine APRN - on atrovent/ pep therapy GERD (gastroesophageal reflux disease) Overview Addendum 02/22/2025 7:40 AM by Madelin Bruce, HOLIDAY DETECTOR OPERATOR - Pepcid BID Heart failure with mid-range ejection fraction (HFmEF) ([facility]) Overview Addendum 02/22/2025 7:41 AM by Madelin Bruce, HOLIDAY DETECTOR OPERATOR - Echo 4-7-25 [facility]: EF 45% - post-op EF 50% S/P CABG x 4 Overview Addendum 02/24/2025 3:44 PM by Ramandeep Sunshine APRN 02/21: S/p 4v CABG and bAVR with Dr. Sahu -Bypass vessels include RODRIGUEZ to LAD, reverse saphenous vein graft to distal RCA, and reverse saphenous vein graft sequential to ramus intermedius artery and 2 obtuse marginal artery. Aortic valve replacement using a 29 mm Inspiris aortic bioprosthesis. -Echo: Post TAYLOR 02/21: LVEF 50%, no AI. -Monitor CT output Iron deficiency anemia * (Principal) RESOLVED: Upper GI bleeding Post Discharge Instructions Continue taking a baby Aspirin (81mg daily) STOP TAKING THE BLOOD THINNER ELIQUIS (APIXABAN) until the end of March. See your family doctor to check your blood work, and if hemoglobin (blood count) is stable, resume the Eliquis at that time (by April 10). You will see the thoracic surgeon on April 21 Take two new medicines for your stomach ulcer Pantoprazole (Protonix) 40mg twice a day - take 30 minutes before all other medicines Sucralfate (Carafate) 1gram 4 times a day - before all meals and bedtime You will take these medicines for the next 2 months The stomach doctors will call you to set up a repeat scope to check the ulcer. You are done with antibiotics for the wound on your bottom. Continue wound care: Twice a day wash with soap and water. Squirt normal saline (sterile water) into the wound. Then soak some gauze in Dakin's (sodium hypochlorite) and pack it into the wound. Coverwound with dry dressing. Change this dressing twice a day or sooner if soiled. Wound care will come out to the house to help with this care. RETURN TO THE HOSPITAL If any new/worsening symptoms of abdominal pain, bloody/black bowel movements or bleeding from anywhere, chest pain, shortness of breath or heart racing. Outpatient Follow-Up Future Appointments Date Time Provider Department Center 04/21/2025 11:30 AM [facility] 04/21/2025 12:30 PM Lata Sahu MD [facility] 08/03/2025 12:40 PM Dimitrios Wright MD [facility] Test Results Pending At Discharge Pending Labs Order Current Status Troponin T, High Sensitivity, 2 Hour, Plasma Collected (03/25/25 0624) Prepare Leukocyte Reduced RBC: 1 Units Preliminary result Pertinent Physical Exam At Time of Discharge Physical Exam Constitutional: General: He is not in acute distress. HENT: Mouth/Throat: Mouth: Mucous membranes are moist. Cardiovascular: Heart sounds: No murmur heard. Comments: Well healing sternotomy scar Pulmonary: Effort: Pulmonary effort is normal. No respiratory distress. Abdominal: General: There is no distension. Tenderness: There is no abdominal tenderness. Musculoskeletal: General: Normal range of motion. Skin: General: Skin is warm and dry. Neurological: General: No focal deficit present. Mental Status: He is alert. Psychiatric: Mood and Affect: Mood normal. Behavior: Behavior normal. Discharge Disposition/Condition Disposition: Home Condition: Stable (s/sx potential problems absent or manageable) I spent >30 minutes of patient care and instruction time in preparation for this discharge. * Nursing Note - Sally Higgins RN - 03/31/2025 11:47 AM EDT Discharge instructions reviewed with patient at the bedside. Education completed. Prescriptions received from pharmacy. IV removed. Patient appropriate for discharge and left in stable condition. * Progress Notes - Alisha Rao RN - 03/31/2025 9:39 AM EDT Case Management Discharge Note Shelly Nelson 64 y.o. male CSN: [id number] Admission: 03/25/2025 3:17 AM Primary Problem: Upper GI bleeding Dr Hopkins confirms that patient is medically ready to discharge to home today. RNCM met with patientat bedside to confirm discharge goals and concerns. Mr Nelson confirms that he remains ambulatory and will discharge to his sister's home ([place], [place] [address], ), prior to return to own home. He sister had been providing would care prior to this admission, and will continue to do so upon return to her home. Patient has been referred to [facility]; RNCM contacted agency regarding plan for discharge to home today. Williams Atwood with [facility] confirms that documentation has been received, and [facility] has approved this in-home care. RNCM advised patient at bedside of this information, Ms Najera per telephone, and entered into AVS instructions. Patient's brother will provide transport home today, and family will provide transport to follow upappointments. No other needs or concerns identified at this time. Primary Livery Car Driver: Primary Caregiver: Self (planning to DC to sisters home initally :Ailyn Najera (Sister) ) Assistance Available at Discharge: Current Outpatient/Agency/Support Group: clinic(s), DME Availability of Care Givers (#Hours): 24 hours (Plans to discharge to sister's home (Ailyn Espinosa)initially, then return to own home;) Family/Livery Car Driver(s) Willingness Assessed to care for patient at home: Yes Family/Livery Car Driver(s) Readiness Assessed to care for patient at home: Yes Housing Circumstances-Z Codes: Housing Circumstances (select all that apply): Low Income (101-300% Federal Poverty Guidlines) - Z596 Patient Referred to Financial or Community Resources: None. Discharge Facility/Level of Care Needs: Discharge Facility/Level of Care Needs: 1-Home or Self Care [facility] Patient/Family Anticipated Services at Transition: Patient/Family Anticipated Services at Transition: outpatient care ([facility]) DME/Equipment Needed after Discharge: Equipment Currently Used at Home: [employer] No new DME needs identified for discharge. Readmission Within the Last 30 Days: Readmission Within the Last 30 Days: current reason for admission unrelated to previous admission Medicare Documentation: Medicare Second Notice?: Yes Date Second Notice Completed: 03/31/25 Time Second Notice Completed: 919 Medicare Second Notice Recieved By: Patient. Follow-up: Bianca Rinaldi MD [address] [place] [id number] [facility] [address] [facility] [address] [facility] TEL: [phone] Follow up Provider will call to schedule home visits for wound assessment. Follow up appointments entered into Psychiatric by providers will be found in patient's After Visit Summary (AVS). At times, Clinics call patients following discharge to schedule follow up. Scheduled appointment(s) currently found in discharge teaching (AVS): Apr 21, 2025 11:30 AM LAB with [facility] ([facility]) [address], [address] [facility] [address] Please bring any insurance information and a copayment if required by your insurance company. Apr 21, 2025 12:30 PM Post-op with Lata Sahu MD [facility] Cardiothoracic ([facility]) Arrive at: Cardiothoracic Surgery at [facility] [address], [address] [facility] [address] Please bring any insurance information and a copayment if required by your insurance company. Aug 03, 2025 12:40 PM (Arrive by 12:20 PM) Consultation with Dimitrios Wright MD [facility] Arrive at: [facility] [address] [facility] [address] Please bring any insurance information and a copayment if required by your insurance company. Discharge Transportation: Transportation Anticipated: family or friend will provide Transportation Home at Discharge: Family/Friend will Provide (Brother.) Follow Up Transport: Transportation Needed to Follow up Appoinments: Family/Friend will Provide Alisha Rao RN Case Manager * Consults - Taylor Santiago, BRYNN - 03/31/2025 8:11 AM EDT Adult Nutrition Evaluation Note Kyleveronica Nelson 64 y.o. male CSN: [id number] Room/Bed 605/606T Nutrition evaluation type: follow-up Reason for evaluation: Hospital course: 64 yo male who presented to ED from an outside hospital with concern for upper GI bleed. Past medical/ surgical history: 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[1] Surgical History[2] Social history: former smoker Additional comments: 03/25: Pt lying in bed, reports appetite has been declined since surgery (CABG) ~1 month ago. BM frequency is decreased, PO intake has been minimal for several days per pt. Wt prior to surgery was 237# per pt, ~12% loss if accurate. Pt endorses some recent swelling that has improved during this timeframe as well. Pt denied n/v, denied chewing/swallowing difficulty. 03/31: RD visited pt on 03/30, pt expressed that he had a good appetite. Pt denied n/v/d/c. Pt does not drink Boost shakes, requested d/c. Pt inquired about cardiac diet, RD discussed. Vitals and Basic Assessment: BP: 137/69 Temp: 36.5 ??C (97.7 ??F) Oxygen Therapy: None (Room air) Bhumika Coma Scale Score: 15 Reyes Scale Score: 20 Most Recent BM Date: 03/28/25 GI Symptoms: Constipation Allergies: NKFA per pt Medications: amiodarone, 200 mg, Oral, Daily amoxicillin-clavulanate XR, 2,000 mg, Oral, q12h aspirin, 81 mg, Oral, Daily atorvastatin, 80 mg, Oral, Nightly bisacodyl, 10 mg, Rectal, Daily doxycycline, 100 mg, Oral, BID metoprolol tartrate, 75 mg, Oral, BID mometasone-formoterol, 2 puff, Inhalation, BID pantoprazole, 40 mg, Oral, BID polyethylene glycol, 17 g, Oral, Daily senna, 2 tablet, Oral, Nightly Insert peripheral IV, , , Once AND Saline lock IV, , , Once AND sodium chloride, 10 mL, Intravenous, q12h AND sodium chloride, 10 mL, Intravenous, PRN Insert peripheral IV, , , Once AND Saline lock IV, , , Once AND sodium chloride, 10 mL, Intravenous, q12h AND sodium chloride, 10 mL, Intravenous, PRN Sodium Hypochlorite, , Topical, BID sucralfate, 1 g, Oral, Before meals & nightly Tiotropium [place] Monohydrate, 2 puff, Inhalation, Daily PRN medications: acetaminophen, bisacodyl, ipratropium-albuterol, magnesium hydroxide, oxyCODONE, Insert peripheral IV AND Saline lock IV AND sodium chloride AND sodium chloride, Insert peripheral IV AND Saline lock IV AND sodium chloride AND sodium chloride Meds were reviewed: Yes Labs: Lab Results Component Value Date GLUCOSE 125 (H) 03/31/2025 CALCIUM 8.1 (L) 03/31/2025 NA 136 03/31/2025 K 4.1 03/31/2025 CO2 22 03/31/2025 CL 106 03/31/2025 BUN 28 (H) 03/31/2025 CREATININE 0.72 03/31/2025 PHOS 3.3 03/30/2025 MG 1.7 (L) 03/31/2025 HGBA1C 5.5 02/16/2025 Anthropometrics: Height: 180.3 cm (5' 10.98 ) Weight: 92.8 kg (204 lb 9.4 oz) BMI (Calculated): 28.55 [place] Body Weight (kg): 78.2 Percent [place] Body Weight: 119 Wt Readings from Last 10 Encounters: 03/31/25 92.8 kg (204 lb 9.4 oz) 03/17/25 98.8 kg (217 lb 13 oz) 03/02/25 106 kg (232 lb 12.9 oz) 06/02/21 105 kg (232 lb) 05/19/21 105 kg (232 lb) 05/02/21 105 kg (232 lb 2.3 oz) Estimated Needs: Metabolic Cart Study Results: Current Nutrition Intake: Diet Order: Adult Diet Diet Texture: Regular Fat Restriction: Cardiac Diet Experience and Nutrition History: Diet Education Provided: Will monitor Pertinent home medications: Reviewed. [place] needs: Nutrition Focused Physical Exam: Physical exam performed on (date): 03/25/25 [place] (muscles): None Clavicle (muscle): None Shoulder (muscle): Mild Interosseous (muscle): None Thigh (muscle): None Calf (muscle): None Orbital (fat): None Triceps (fat): None Assessment of Malnutrition: Malnutrition Identified: No Nutrition Problem: Unintended weight loss related to inadequate energy intake/increased nutrient needs as evidenced byprior BW 237# as per pt, current BW 208# per documentation. Status of Nutrition Diagnosis: Ongoing Nutrition Interventions and Recommendations: -Cardiac diet - Document PO intake in flowsheet -Monitor elytes and replace PRN Nutrition Monitoring and Goals: -Nutrition to start- (met) -Wt maintenance (ongoing) -Normalizing GI fxn (ongoing) Acuity Level: [address], LD [1] Past 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: Diagnosis Date Abnormal ECG BPH (benign prostatic hyperplasia) Cervical radiculopathy COPD (chronic obstructive pulmonary disease) ([facility]) Coronary artery disease GERD (gastroesophageal reflux disease) Heart valve disease Hypertension On mechanically assisted ventilation ([facility]) 02/21/2025 Intubated for procedure, arrived to ICU [...] artery and 2 obtuse marginal artery. (Dr. aLta Sahu) HERNIA REPAIR NECK SURGERY SHOULDER SURGERY * Progress Notes - Sirena Hopkins MD - 03/30/2025 7:11 PM EDT Images from the original note were not included. INTERNAL MEDICINE PROGRESS NOTE 03/30/25 SUBJECTIVE Feels fine, states he has not had a BM since pre-EGD; that one had melena. No further episodes. NO new concers OBJECTIVE VITALS/PHYSICAL EXAM: Blood pressure 113/65, pulse 63, temperature 36.7 ??C (98 ??F), temperature source Oral, resp. rate17, height 1.803 m (5' 10.98 ), weight 92.7 kg (204 lb 5.9 oz), SpO2 100%. Physical Exam Constitutional: General: He is not in acute distress. HENT: Mouth/Throat: Mouth: Mucous membranes are moist. Cardiovascular: Heart sounds: No murmur heard. Comments: Well healing sternotomy scar Pulmonary: Effort: Pulmonary effort is normal. No respiratory distress. Abdominal: General: There is no distension. Tenderness: There is no abdominal tenderness. Musculoskeletal: General: Normal range of motion. Skin: General: Skin is warm and dry. Neurological: General: No focal deficit present. Mental Status: He is alert. Psychiatric: Mood and Affect: Mood normal. Behavior: Behavior normal. ASSESSMENT & PLAN Shelly Nelson is a 64 y.o. male with CAD s/p quadruple CABG and bAVR 02/21/25, COPD, GERD, HTN, Afib RVR on Eliquis on presented to with a suspected GI bleed. Patient presented to [facility] from OSH yesterday after a near- syncopal event, endorsing dizziness/ unsteadiness on his feet. No LOC. At OSH, SBP in 70s, map in 50s. Hgb was 4.7, patient given 2 units pRBCs. Post-transfusion Hgb improved to 6.8 g/dL; blood pressure stabilized. CTA abdomen and pelvis showed normal esophagus, and negative for active bleeding. Patient reports presenting to outside hospital on 03/20/2025 with constipation. He was given lactulose and 2 enemas, and tarry black ana was noted. Last BM on 03/20. Patient attributes this to generalized fatigue and anorexia. Has been able totolerate fluids, food just not appetizing. He underwent an EGD on 03/25. Hb remained stable initially but dropped again on 03/29 after resumption of anticoagulation. Elqiuis has been held again 03/29. #Upper GI bleed with melena #Normocytic Normochromic Anemia/Anemia of Chronic Disease #Hypotension (Resolved) #Duodenitis #Duodenal bulb ulcer suspected - Report history of melena couple of years ago attributed to high frequency of NSAID use - On Eliquis and Aspirin Last use on 03/24/2025 - Previously admitted on 03/12/2025- 03/17/2025 for chest pain found to have afib with RVR found to have Hgb < 7 and transfused 1 unit PRBCs on admission and later transfused another I unit on 03/14/2025 - Iron studies on that admission on 03/13 transferrin 248, transferrin sat 8, TIBC 310; IV iron started 03/13 for 5 dose duration - On Discharge on 03/17, hemoglobin of 7.6 - 10 Melena noticed on BM at OSH, - Generalized weakness for the past 3 days that progressively worsened on 03/24/2025. - Patient reports worsening generalized weakness, chest tightness, lightheadedness, SOB - SBP in 70s, although given Nitroglycerin reroute to hospital - Hemoglobin of 4.7 at OSH - 2 units pRBC at OSH, -Post-transfusion hemoglobin improved to 6.8 g/dL; blood pressure stabilized. -CT angio chest PE protocol (OSH) showed no acute findings( no pleural effusion, no PE). - CTA abdomen and pelvis (OSH )showed normal esophagus, and negative for active bleeding. - On Presentation, HDS, - Denies abdominal pain, denies previous EGD coloscopy - Ordered H. Pylori stool antigen- negative Plan: - Anticoagulation and antiplatelet medications resumed on 03/26 - discussed with GI but [place]lo[place] heldagain on 03/29 due to drop in Hb - Continue PPI BID for 8-12 weeks then can decrease to daily - Monitor for post-procedure complications abdominal pain, fever, gastrointestinal bleeding and call lease administration supervisor GI if present. - Findings and recommendations were discussed with patient. - Target hgb >7 g/dL, - Hold AC/AP for anticipated 2 weeks; has CTS f/u early April to resume, patient in agreement #Gluteal abscess (POA) Patient was admitted to [facility] 03/11/2025 - 03/12/2025. 03/12/2025 CT showed RIGHT gluteal abscess. -Admitted at on 03/12/2025 - General surgery consulted - Bedside I&D on 03/12 + ceftriaxone initiation; gross purulence found; tissue samples showed GPCand GNDC on GS; cx growing E. coli and [place] (Actinomyces). - ID consulted on 03/15/2025 recommended D/c Ceftriaxone, - Zosyn 4.5g IV q6h for 5 days - PO regimen Augmentin 875mg PO BID and Doxycycline 100mg PO BID x 2 weeks -Reports wound care BID at home , - feels wound is healing very slowly - CT A/P (osh, 5/14) : Redemonstration of gas in the right gluteal muscle with gluteal muscle thickening similar to previous exam from 03/20/2025, PLAN - Wound care consulted - Continued Augmentin 875mg PO BID and Doxycycline 100mg - Pain regimen with acetaminophen+ oxycodone - Discussed plan with ID again on 03/28. No changes recommended #Anorexia #Constipation - NO BM in past 4 days in setting of food intake -CT A/P from OSH reports improved Stool burden compared to 03/20 PLAN -Bowel regimen ordered - Nutritional consult Chronic Problems Paroxysmal atrial fibrillation Previously admitted on 03/12/2025- 03/17/2025 for chest pain found to have afib with RVR - On amiodarone 200 mg daily + metoprolol 100 mg TID + Apixaban - 03/15: rates in 120s, EP consulted for assist with rate control - 03/16: DCCV completed with conversion to NSR - 03/17: maintaining NSR EKG: NSR with ST and T wave abnormalities - Holding metoprolol 100 mg TID + Apixaban for now - Continue Amiodarone for now, consider holding with recurrent hypotension #HFmEF #CAD (POA) #S/p CABG and bAVR on 02/21/2025 #NSTEMI 02/2025 -Last Echo on 03/12: EF of 40- 55% left ventricle is normal size, concentric hypertrophic - ProBNP :1495 -02/15/2025 LHC showed critical L main disease and aortic stenosis. Pt left AMA but then returned 02/16/2025. Pt transferred to and admitted 02/16/2025 - 03/02/2025. S/p 02/21/2025 CABG x 4v (RODRIGUEZ to LAD;rSVG to distal RCA, ramus intermedius, 2 OM) and bAVR - Routine post cardiac surgery care: sternal precautions x 6 weeks, - bowel regimen to prevent constipation and aggressive pulmonary toilet. - PT/OT #COPD -Spiriva (tiotropium bromide) ; and Dulera (Mometasone furoate and fumarate) ordered -DuoNebs q6 PRN -Titrate O2NC to SpO2 88-92% Hypertension (POA) - Holding metoprolol now 100 mg BID for rate control Hyperlipidemia (POA) -Continue statin BPH (POA) - no home meds, GERD (POA) -PPI as above Tobacco abuse (POA) -Reports quit smoking post CABG [] Overweight (BMI 25 - 29.9) Sirena Hopkins MD [facility] Chat Preferred [phone] Medically Ready for Discharge:Anticipated Today * Care Plan - Natalie Bryan RN - 03/30/2025 8:00 AM EDT Problem: Adult Inpatient Plan of Care Goal: Plan of Care Review Outcome: Ongoing, Progressing Flowsheets (Taken 03/28/2025 1643 by Kamala Miguel RN) Progress: no change Plan of Care Reviewed With: patient Goal: Patient-Specific Goal (Individualized) Outcome: Ongoing, Progressing Goal: Absence of Hospital-Acquired Illness or Injury Outcome: Ongoing, Progressing Goal: Optimal Comfort and Wellbeing Outcome: Ongoing, Progressing Goal: Readiness for Transition of Care Outcome: Ongoing, Progressing * Progress Notes - Alisha Rao RN - 03/29/2025 3:18 PM EDT Case Management Adult Progress Note Shelly Nelson 64 y.o. male CSN: [id number] Admission: 03/25/2025 3:17 AM Primary Problem: Upper GI bleeding Anticipated Discharge Date: By end of week, 04/03. Has Discharge Plans Changed? No: At this time, anticipate discharge to patient's sister's home (Ailyn Najera) where assistance, up to 24 hour, can be provided. Patient has been referred to [facility] for in home would care clinic. Ailyn Najera's address: [address] [place], [place] [address] Medicare Second Notice: Not applicable at this time. Anticipate greater than two days to discharge. Housing Circumstances: Low Income ( 101-300% Federal Poverty Guideline) Housing Circumstances Action Taken: None taken at this time. Additional Comments: Chart reviewed and plan of care and discharge planning reviewed with Hospitalist. Patient's HGB dropped again, awaiting GI's plan. Alisha Rao RN Case Manager Alisha Rao RN * Progress Notes - Yin Christopher MD - 03/29/2025 8:51 AM EDT Subjective Pt seen at bedside Reports weakness Dropped Hb overnight Ordered a blood tranfusion Underwent EGD 03/25, no active bleed Mentions constipation Review of Systems Constitutional: Positive for activity change and fatigue. HENT: Negative for congestion, dental problem and drooling. Eyes: Negative for discharge and itching. Respiratory: Negative for apnea, choking and chest tightness. Cardiovascular: Negative for chest pain and leg swelling. Gastrointestinal: Positive for abdominal pain. Negative for abdominal distention, anal bleeding, blood in stool and constipation. Endocrine: Negative for cold intolerance, heat intolerance and polydipsia. Genitourinary: Negative for difficulty urinating, dysuria, enuresis, flank pain and frequency. Musculoskeletal: Positive for arthralgias. Negative for back pain, gait problem and joint swelling. Skin: Positive for wound. Neurological: Negative for dizziness, facial asymmetry, light-headedness and headaches. Psychiatric/Behavioral: Negative for agitation, behavioral problems and confusion. All other systems reviewed and are negative. Objective Physical Exam Constitutional: Appearance: Normal appearance. He is well-groomed. He is ill-appearing. HENT: Head: Normocephalic and atraumatic. Eyes: General: Lids are normal. Vision grossly intact. Gaze aligned appropriately. Pupils: Pupils are equal, round, and reactive to light. Cardiovascular: Rate and Rhythm: Normal rate and regular rhythm. Pulses: Radial pulses are 2+ on the right side and 2+ on the left side. Dorsalis pedis pulses are 2+ on the right side and 2+ on the left side. Posterior tibial pulses are 2+ on the right side and 2+ on the left side. Heart sounds: Normal heart sounds, S1 normal and S2 normal. Comments: Sternotomy present Pulmonary: Effort: Pulmonary effort is normal. Breath sounds: Normal breath sounds. Abdominal: General: Bowel sounds are normal. Palpations: Abdomen is soft. Tenderness: There is no abdominal tenderness. There is no right CVA tenderness, left CVA tenderness, guarding or rebound. Musculoskeletal: General: Normal range of motion. Right upper arm: Normal. No swelling or edema. Left upper arm: Normal. No swelling or edema. Cervical back: Normal range of motion and neck supple. No edema or erythema. Right lower leg: No edema. Left lower leg: No edema. Right foot: Normal. Left foot: Normal. Skin: General: Skin is warm. Capillary Refill: Capillary refill takes less than 2 seconds. Coloration: Skin is not jaundiced or pale. Comments: Right gluteal wound malodorous drainage Neurological: General: No focal deficit present. Mental Status: He is alert and oriented to person, place, and time. Mental status is at baseline. GCS: GCS eye subscore is 4. GCS verbal subscore is 5. GCS motor subscore is 6. Psychiatric: Attention and Perception: Attention and perception normal. Mood and Affect: Mood and affect normal. Speech: Speech normal. Behavior: Behavior normal. Behavior is cooperative. Thought Content: Thought content normal. Last Recorded Vitals Blood pressure 91/53, pulse 63, temperature 36.7 ??C (98.1 ??F), temperature source Oral, resp. rate 15, height 1.803 m (5' 10.98 ), weight 92.9 kg (204 lb 12.9 oz), SpO2 99%. Assessment/Plan Principal Problem: Upper GI bleeding Active Problems: CAD, multiple vessel HLD (hyperlipidemia) HTN (hypertension) COPD (chronic obstructive pulmonary disease) ([facility]) GERD (gastroesophageal reflux disease) Heart failure with mid-range ejection fraction (HFmEF) ([facility]) S/P CABG x 4 Iron deficiency anemia Shelly Nelson is a 64 y.o. male with CAD s/p quadruple CABG and bAVR 02/21/25, COPD, GERD, HTN, Afib RVR on Eliquis on presented to with a suspected GI bleed. Patient presented to ED from OSH yesterday after a near- syncopal event, endorsing dizziness/ unsteadiness on his feet. No LOC. At OSH, SBP in 70s, map in 50s. Hgb was 4.7, patient given 2 units pRBCs. Post-transfusion Hgb improved to 6.8 g/dL; blood pressure stabilized. CTA abdomen and pelvis showed normal esophagus, and negative for active bleeding. Patient reports presenting to outside hospital on 03/20/2025 with constipation. He was given lactulose and 2 enemas, and tarry black ana was noted. Last BM on 03/20. Patient attributes this to generalized fatigue and anorexia. Has been able totolerate fluids, food just not appetizing. He underwent an EGD on 03/25. Hb remained stable initially but dropped again on 03/29 after resumption of anticoagulation. Elqiuis has been held again 03/29. #Upper GI bleed with melena #Normocytic Normochromic Anemia/Anemia of Chronic Disease #Hypotension (Resolved) #Duodenitis #Duodenal bulb ulcer suspected - Report history of melena couple of years ago attributed to high frequency of NSAID use - On Eliquis and Aspirin Last use on 03/24/2025 - Previously admitted on 03/12/2025- 03/17/2025 for chest pain found to have afib with RVR found to have Hgb < 7 and transfused 1 unit PRBCs on admission and later transfused another I unit on 03/14/2025 - Iron studies on that admission on 03/13 transferrin 248, transferrin sat 8, TIBC 310; IV iron started 03/13 for 5 dose duration - On Discharge on 03/17, hemoglobin of 7.6 - 03/20 Melena noticed on BM at OSH, - Generalized weakness for the past 3 days that progressively worsened on 03/24/2025. - Patient reports worsening generalized weakness, chest tightness, lightheadedness, SOB - SBP in 70s, although given Nitroglycerin reroute to hospital - Hemoglobin of 4.7 at OSH - 2 units pRBC at OSH, -Post-transfusion hemoglobin improved to 6.8 g/dL; blood pressure stabilized. -CT angio chest PE protocol (OSH) showed no acute findings( no pleural effusion, no PE). - CTA abdomen and pelvis (OSH )showed normal esophagus, and negative for active bleeding. - On Presentation, HDS, - Denies abdominal pain, denies previous EGD coloscopy - Ordered H. Pylori stool antigen- negative Plan: - Anticoagulation and antiplatelet medications resumed on 03/26 - discussed with GI but [place] heldagain on 03/29 due to drop in Hb - Continue PPI BID for 8-12 weeks then can decrease to daily - Monitor for post-procedure complications abdominal pain, fever, gastrointestinal bleeding and call lease administration supervisor GI if present. - Findings and recommendations were discussed with patient. - Target hgb >7 g/dL, #Pseudohypocalcemia - Calcium 8.1, albumin 2.7; corrected zane 10.1 #Gluteal abscess (POA) Patient was admitted to [facility] 03/11/2025 - 03/12/2025. 03/12/2025 CT showed RIGHT gluteal abscess. -Admitted at on 03/12/2025 - General surgery consulted - Bedside I&D on 03/12 + ceftriaxone initiation; gross purulence found; tissue samples showed GPCand GNDC on GS; cx growing E. coli and [place] (Actinomyces). - ID consulted on 03/15/2025 recommended D/c Ceftriaxone, - Zosyn 4.5g IV q6h for 5 days - PO regimen Augmentin 875mg PO BID and Doxycycline 100mg PO BID x 2 weeks -Reports wound care BID at home , - feels wound is healing very slowly - CT A/P (osh, 03/24) : Redemonstration of gas in the right gluteal muscle with gluteal muscle thickening similar to previous exam from 03/20/2025, PLAN - Wound care consulted - Continued Augmentin 875mg PO BID and Doxycycline 100mg - Pain regimen with acetaminophen+ oxycodone - Discussed plan with ID again on 03/28. No changes recommended #Anorexia #Constipation - NO BM in past 4 days in setting of food intake -CT A/P from OSH reports improved Stool burden compared to 03/20 PLAN -Bowel regimen ordered - Nutritional consult Chronic Problems #Atrial fibrillation with RVR (POA) Previously admitted on 03/12/2025- 03/17/2025 for chest pain found to have afib with RVR - On amiodarone 200 mg daily + metoprolol 100 mg TID + Apixaban - 03/15: rates in 120s, EP consulted for assist with rate control - 5/6: DCCV completed with conversion to NSR - 03/17: maintaining NSR EKG: NSR with ST and T wave abnormalities - Holding metoprolol 100 mg TID + Apixaban for now - Continue Amiodarone for now, consider holding with recurrent hypotension #HFmEF #CAD (POA) #S/p CABG and bAVR on 02/21/2025 #NSTEMI 02/2025 -Last Echo on 03/12: EF of 40- 55% left ventricle is normal size, concentric hypertrophic - ProBNP :1495 -02/15/2025 LHC showed critical L main disease and aortic stenosis. Pt left AMA but then returned 02/16/2025. Pt transferred to and admitted 02/16/2025 - 03/02/2025. S/p 02/21/2025 CABG x 4v (RODRIGUEZ to LAD;rSVG to distal RCA, ramus intermedius, 2 OM) and bAVR - Routine post cardiac surgery care: sternal precautions x 6 weeks, - bowel regimen to prevent constipation and aggressive pulmonary toilet. - PT/OT #COPD -Spiriva (tiotropium bromide) ; and Dulera (Mometasone furoate and fumarate) ordered -DuoNebs q6 PRN -Titrate O2NC to SpO2 88-92% Hypertension (POA) - Holding metoprolol now 100 mg BID for rate control Hyperlipidemia (POA) -Continue statin BPH (POA) - no home meds, GERD (POA) -PPI as above Tobacco abuse (POA) -Reports quit smoking post CABG Dr. Yin Christopher assistant professor of surgery Hospitalist Medicine This dictation was prepared using voice recognition software. As a result, errors may occur. When identified, these errors have been corrected. While every attempt is made to correct errors during dictation, errors may still exist. All images were reviewed. All changes discussed with consultants. Outside records reviewed as applicable. Note to patient: The 21st Century Cures Act makes medical notes like these available to patients inthe interest of transparency. However, be advised this is a medical document. It is intended as peer to peer communication. It is written in medical language and may contain abbreviations or verbiagethat are unfamiliar. It may appear blunt or direct. Medical documents are intended to carry relevant information, facts as evident, and the clinical opinion of the practitioner. * Progress Notes - Yin Christopher MD - 03/28/2025 9:02 PM EDT Subjective Pt seen at bedside Doing well Feels improved after blood transfusion Underwent EGD 03/25, no active bleed Hb remains stable post EGD Mentions constipation Review of Systems Constitutional: Positive for activity change and fatigue. HENT: Negative for congestion, dental problem and drooling. Eyes: Negative for discharge and itching. Respiratory: Negative for apnea, choking and chest tightness. Cardiovascular: Negative for chest pain and leg swelling. Gastrointestinal: Positive for abdominal pain. Negative for abdominal distention, anal bleeding, blood in stool and constipation. Endocrine: Negative for cold intolerance, heat intolerance and polydipsia. Genitourinary: Negative for difficulty urinating, dysuria, enuresis, flank pain and frequency. Musculoskeletal: Positive for arthralgias. Negative for back pain, gait problem and joint swelling. Skin: Positive for wound. Neurological: Negative for dizziness, facial asymmetry, light-headedness and headaches. Psychiatric/Behavioral: Negative for agitation, behavioral problems and confusion. All other systems reviewed and are negative. Objective Physical Exam Constitutional: Appearance: Normal appearance. He is well-groomed. He is ill-appearing. HENT: Head: Normocephalic and atraumatic. Eyes: General: Lids are normal. Vision grossly intact. Gaze aligned appropriately. Pupils: Pupils are equal, round, and reactive to light. Cardiovascular: Rate and Rhythm: Normal rate and regular rhythm. Pulses: Radial pulses are 2+ on the right side and 2+ on the left side. Dorsalis pedis pulses are 2+ on the right side and 2+ on the left side. Posterior tibial pulses are 2+ on the right side and 2+ on the left side. Heart sounds: Normal heart sounds, S1 normal and S2 normal. Comments: Sternotomy present Pulmonary: Effort: Pulmonary effort is normal. Breath sounds: Normal breath sounds. Abdominal: General: Bowel sounds are normal. Palpations: Abdomen is soft. Tenderness: There is no abdominal tenderness. There is no right CVA tenderness, left CVA tenderness, guarding or rebound. Musculoskeletal: General: Normal range of motion. Right upper arm: Normal. No swelling or edema. Left upper arm: Normal. No swelling or edema. Cervical back: Normal range of motion and neck supple. No edema or erythema. Right lower leg: No edema. Left lower leg: No edema. Right foot: Normal. Left foot: Normal. Skin: General: Skin is warm. Capillary Refill: Capillary refill takes less than 2 seconds. Coloration: Skin is not jaundiced or pale. Comments: Right gluteal wound malodorous drainage Neurological: General: No focal deficit present. Mental Status: He is alert and oriented to person, place, and time. Mental status is at baseline. GCS: GCS eye subscore is 4. GCS verbal subscore is 5. GCS motor subscore is 6. Psychiatric: Attention and Perception: Attention and perception normal. Mood and Affect: Mood and affect normal. Speech: Speech normal. Behavior: Behavior normal. Behavior is cooperative. Thought Content: Thought content normal. Last Recorded Vitals Blood pressure 93/61, pulse 67, temperature 37 ??C (98.6 ??F), resp. rate 15, height 1.803 m (5' 10.98 ), weight 92.4 kg (203 lb 11.3 oz), SpO2 100%. Assessment/Plan Principal Problem: Upper GI bleeding Active Problems: CAD, multiple vessel HLD (hyperlipidemia) HTN (hypertension) COPD (chronic obstructive pulmonary disease) ([facility]) GERD (gastroesophageal reflux disease) Heart failure with mid-range ejection fraction (HFmEF) ([facility]) S/P CABG x 4 Iron deficiency anemia Shelly Nelson is a 64 y.o. male with CAD s/p quadruple CABG and bAVR 02/21/25, COPD, GERD, HTN, Afib RVR on Eliquis on presented to with a suspected GI bleed. Patient presented to ED from OSH yesterday after a near- syncopal event, endorsing dizziness/ unsteadiness on his feet. No LOC. At OSH, SBP in 70s, map in 50s. Hgb was 4.7, patient given 2 units pRBCs. Post-transfusion Hgb improved to 6.8 g/dL; blood pressure stabilized. CTA abdomen and pelvis showed normal esophagus, and negative for active bleeding. Patient reports presenting to outside hospital on 03/20/2025 with constipation. He was given lactulose and 2 enemas, and tarry black ana was noted. Last BM on 03/20. Patient attributes this to generalized fatigue and anorexia. Has been able totolerate fluids, food just not appetizing. Previously admitted on 03/12/2025- 03/17/2025 for chest pain found to have afib with RVR, found to haveHgb < 7 and transfused 1 unit PRBCs on admission and later transfused another I unit on 03/14/2025. Was started on IV iron for 5 doses. On discharge on 03/17, Hgb 7.6, BUN 19 #Upper GI bleed with melena #Normocytic Normochromic Anemia/Anemia of Chronic Disease #Hypotension (Resolved) #Duodenitis #Duodenal bulb ulcer suspected - Report history of melena couple of years ago attributed to high frequency of NSAID use - On Eliquis and Aspirin Last use on 03/24/2025 - Previously admitted on 03/12/2025- 03/17/2025 for chest pain found to have afib with RVR found to have Hgb < 7 and transfused 1 unit PRBCs on admission and later transfused another I unit on 03/14/2025 - Iron studies on that admission on 03/13 transferrin 248, transferrin sat 8, TIBC 310; IV iron started 03/13 for 5 dose duration - On Discharge on 03/17, hemoglobin of 7.6 - 03/20 Melena noticed on BM at OSH, - Generalized weakness for the past 3 days that progressively worsened on 03/24/2025. - Patient reports worsening generalized weakness, chest tightness, lightheadedness, SOB - SBP in 70s, although given Nitroglycerin reroute to hospital - Hemoglobin of 4.7 at OSH - 2 units pRBC at OSH, -Post-transfusion hemoglobin improved to 6.8 g/dL; blood pressure stabilized. -CT angio chest PE protocol (OSH) showed no acute findings( no pleural effusion, no PE). - CTA abdomen and pelvis (OSH )showed normal esophagus, and negative for active bleeding. - On Presentation, HDS, - Denies abdominal pain, denies previous EGD coloscopy Plan: - Okay to resume anticoagulation and antiplatelet medications on 03/26 - discussed with GI - Continue PPI BID for 8-12 weeks then can decrease to daily - ordered H. 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 - Findings and recommendations were discussed with patient. - Target hgb >7 g/dL, #Pseudohypocalcemia - Calcium 8.1, albumin 2.7; corrected zane 10.1 Plan -Ionized Calcium with am lab 03/24 #Gluteal abscess (POA) Patient was admitted to [facility] 03/11/2025 - 03/12/2025. 03/12/2025 CT showed RIGHT gluteal abscess. -Admitted at on 03/12/2025 - General surgery consulted - Bedside I&D on 03/12 + ceftriaxone initiation; gross purulence found; tissue samples showed GPCand GNDC on GS; cx growing E. coli and [place] (Actinomyces). - ID consulted on 03/15/2025 recommended D/c Ceftriaxone, - Zosyn 4.5g IV q6h for 5 days - PO regimen Augmentin 875mg PO BID and Doxycycline 100mg PO BID x 2 weeks -Reports wound care BID at home , - feels wound is healing very slowly - CT A/P (osh, 03/24) : Redemonstration of gas in the right gluteal muscle with gluteal muscle thickening similar to previous exam from 03/20/2025, PLAN - Wound care consulted - Continued Augmentin 875mg PO BID and Doxycycline 100mg - Pain regimen with acetaminophen+ oxycodone #Anorexia #Constipation - NO BM in past 4 days in setting of food intake -CT A/P from OSH reports improved Stool burden compared to 03/20 PLAN -Bowel regimen ordered - Nutritional consult Chronic Problems #Atrial fibrillation with RVR (POA) Previously admitted on 03/12/2025- 03/17/2025 for chest pain found to have afib with RVR - On amiodarone 200 mg daily + metoprolol 100 mg TID + Apixaban - 03/15: rates in 120s, EP consulted for assist with rate control - 03/16: DCCV completed with conversion to NSR - 03/17: maintaining NSR EKG: NSR with ST and T wave abnormalities - Holding metoprolol 100 mg TID + Apixaban for now - Continue Amiodarone for now, consider holding with recurrent hypotension #HFmEF #CAD (POA) #S/p CABG and bAVR on 02/21/2025 #NSTEMI 02/2025 -Last Echo on 03/12: EF of 40- 55% left ventricle is normal size, concentric hypertrophic - ProBNP :1495 -02/15/2025 LHC showed critical L main disease and aortic stenosis. Pt left AMA but then returned 02/16/2025. Pt transferred to and admitted 02/16/2025 - 03/02/2025. S/p 02/21/2025 CABG x 4v (RODRIGUEZ to LAD;rSVG to distal RCA, ramus intermedius, 2 OM) and bAVR - Routine post cardiac surgery care: sternal precautions x 6 weeks, - bowel regimen to prevent constipation and aggressive pulmonary toilet. - PT/OT - Holding ASA for now #COPD -Spiriva (tiotropium bromide) ; and Dulera (Mometasone furoate and fumarate) ordered -DuoNebs q6 PRN -Titrate O2NC to SpO2 88-92% Hypertension (POA) - Holding metoprolol now 100 mg BID for rate control Hyperlipidemia (POA) -Continue statin BPH (POA) - no home meds, GERD (POA) -PPI as above Tobacco abuse (POA) -Reports quit smoking post CABG * Care Plan - Kamala Miguel RN - 03/28/2025 4:43 PM EDT Problem: Adult Inpatient Plan of Care Goal: Plan of Care Review Outcome: Ongoing, Progressing Flowsheets (Taken 03/28/2025 1643) Progress: no change Plan of Care Reviewed With: patient Goal: Patient-Specific Goal (Individualized) Outcome: Ongoing, Progressing Goal: Absence of Hospital-Acquired Illness or Injury Outcome: Ongoing, Progressing Goal: Optimal Comfort and Wellbeing Outcome: Ongoing, Progressing Goal: Readiness for Transition of Care Outcome: Ongoing, Progressing * Progress Notes - Violet Chavez RN - 03/27/2025 5:57 PM EDT Case Management Adult Initial Progress Note Shelly Nelson 64 y.o. male [facility]: [id number] Admission: 03/25/2025 3:17 AM Primary Problem: Upper GI bleeding Oral Surgery Assistant reviewed chart and spoke with patient to complete this Initial Case Management Assessment. PCP: Kiera Castro APRN Emergency Contact: Extended Emergency Contact Information Primary Emergency Contact: Ailyn Najera Mobile Relation: Sister Director Housekeeping needed? No Secondary Emergency Contact: Hussain Nelson Mobile Relation: Brother Preferred language: Lao Director Housekeeping needed? No Insurance: Primary Visit Coverage Payer Plan Sponsor Code Group Number Group Name [facility] REPLACEMENT [id number] Dual Complete Primary Visit Coverage Subscriber Subscriber ID Subscriber Name Subscriber [facility] Subscriber Address [id number] Shelly Nelson Jr [id number] [place] [address] Secondary Visit Coverage Payer Plan Sponsor Code Group Number Group Name [facility] MED[facility]ID [facility] [place] Secondary Visit Coverage Subscriber Subscriber ID Subscriber Name Subscriber [facility] Subscriber Address [id number] Shelly Nelson Jr [id number] [place] [address] Patient information: Primary Caregiver: Self (planning to DC to sisters home initally :Ailyn Najera (Sister) ) Support System: Immediate family (Ailyn Najera (Sister) : sometimes stay with sister) additional family/ friends available to help at home . Mr. Nelson is planning to initially go home with Ms. Najera on discharge : [address] [address] Daily Living Activities: Functional Status: Independent Living Arrangements: Alone Type of Residence: Single Level (ten steps to enter front of house; one step to enter side of house.) Mr. Nelson'stiven home address : [address] [place] [address] Smoker in the Home?: No Current DME: Equipment Currently Used at Home: walker, rollator Income Information: Income Source: Retired Current Resources Utilized: None Housing Circumstances-Z Codes: Housing Circumstances (select all that apply): Low Income (101-300% Federal Poverty Guidlines) - Z596 Patient Referred to: 03/25/25 : Preliminary referral for wound care (Clinical documents and demographics faxed ([phone]) to : [facility]: a in home wound care provider. Liaison: Williams Atwood ;[phone], Anticipated Discharge Date: TBD Patient's Discharge Goal: home Assistance Available at Discharge: Ailyn Najera (Sister) Plus additional family/friends. Has 24 hour initial assistance available at home on discharge. Discharge Transport: DaniaAilyn (Sister) Follow Up Transport: Self/family/friend Home Health / Home Infusion / Outpatient Dialysis Services: none Living Will/Advance Directive/Power of Household Appliance Mechanic /Guardian: Have you reviewed your Advance Directive and is it valid for this stay?: Not applicable Advance Directive: Patient does not have advance directive Information Provided on Healthcare Directives: No Pre-existing DNR/DNI Order: No Patient Requests Assistance: No Additional Comments: Social Drivers of Health Food Insecurity: No Food Insecurity (03/27/2025) Hunger Vital Sign Worried About Running Out of Food in the Last Year: Never true Ran Out of Food in the Last Year: Never true Alcohol Use: Not on file Housing Stability: Unknown (03/27/2025) Housing Stability Vital Sign Unable to Pay for Housing in the Last Year: No Number of Times Moved in the Last Year: Not on file Homeless in the Last Year: No Tobacco Use: Medium Risk (03/25/2025) Patient History Smoking Tobacco Use: Former Smokeless Tobacco Use: Never Passive Exposure: Not on file Transportation Needs: No Transportation Needs (03/27/2025) PRAPARE - Transportation Lack of Transportation (Medical): No Lack of Transportation (Non-Medical): No Depression: Not on file Utilities: Not At Risk (03/27/2025) Utilities Threatened with loss of utilities: No Stress: Not on file Intimate Partner Violence: Not At Risk (03/27/2025) Humiliation, Afraid, Rape, and Kick questionnaire Fear of Current or Ex-Partner: No Emotionally Abused: No Physically Abused: No Sexually Abused: No Physical Activity: Not on file Social Connections: Not on file Financial Resource Strain: Not on file . Violet Chavez RN * Progress Notes - Yin Christopher MD - 03/27/2025 7:39 AM EDT Subjective Pt seen at bedside Doing well Feels improved after blood transfusion Underwent EGD 03/25, no active bleed Hb remains stable post EGD Review of Systems Constitutional: Positive for activity change and fatigue. HENT: Negative for congestion, dental problem and drooling. Eyes: Negative for discharge and itching. Respiratory: Negative for apnea, choking and chest tightness. Cardiovascular: Negative for chest pain and leg swelling. Gastrointestinal: Positive for abdominal pain. Negative for abdominal distention, anal bleeding, blood in stool and constipation. Endocrine: Negative for cold intolerance, heat intolerance and polydipsia. Genitourinary: Negative for difficulty urinating, dysuria, enuresis, flank pain and frequency. Musculoskeletal: Positive for arthralgias. Negative for back pain, gait problem and joint swelling. Skin: Positive for wound. Neurological: Negative for dizziness, facial asymmetry, light-headedness and headaches. Psychiatric/Behavioral: Negative for agitation, behavioral problems and confusion. All other systems reviewed and are negative. Objective Physical Exam Constitutional: Appearance: Normal appearance. He is well-groomed. He is ill-appearing. HENT: Head: Normocephalic and atraumatic. Eyes: General: Lids are normal. Vision grossly intact. Gaze aligned appropriately. Pupils: Pupils are equal, round, and reactive to light. Cardiovascular: Rate and Rhythm: Normal rate and regular rhythm. Pulses: Radial pulses are 2+ on the right side and 2+ on the left side. Dorsalis pedis pulses are 2+ on the right side and 2+ on the left side. Posterior tibial pulses are 2+ on the right side and 2+ on the left side. Heart sounds: Normal heart sounds, S1 normal and S2 normal. Comments: Sternotomy present Pulmonary: Effort: Pulmonary effort is normal. Breath sounds: Normal breath sounds. Abdominal: General: Bowel sounds are normal. Palpations: Abdomen is soft. Tenderness: There is no abdominal tenderness. There is no right CVA tenderness, left CVA tenderness, guarding or rebound. Musculoskeletal: General: Normal range of motion. Right upper arm: Normal. No swelling or edema. Left upper arm: Normal. No swelling or edema. Cervical back: Normal range of motion and neck supple. No edema or erythema. Right lower leg: No edema. Left lower leg: No edema. Right foot: Normal. Left foot: Normal. Skin: General: Skin is warm. Capillary Refill: Capillary refill takes less than 2 seconds. Coloration: Skin is not jaundiced or pale. Comments: Right gluteal wound malodorous drainage Neurological: General: No focal deficit present. Mental Status: He is alert and oriented to person, place, and time. Mental status is at baseline. GCS: GCS eye subscore is 4. GCS verbal subscore is 5. GCS motor subscore is 6. Psychiatric: Attention and Perception: Attention and perception normal. Mood and Affect: Mood and affect normal. Speech: Speech normal. Behavior: Behavior normal. Behavior is cooperative. Thought Content: Thought content normal. Last Recorded Vitals Blood pressure 129/51, pulse 93, temperature 36.8 ??C (98.2 ??F), temperature source Oral, resp. rate 24, height 1.803 m (5' 10.98 ), weight 91.7 kg (202 lb 2.6 oz), SpO2 99%. Assessment/Plan Principal Problem: Upper GI bleeding Active Problems: CAD, multiple vessel HLD (hyperlipidemia) HTN (hypertension) COPD (chronic obstructive pulmonary disease) (CMS/HCC) GERD (gastroesophageal reflux disease) Heart failure with mid-range ejection fraction (HFmEF) (CMS/HCC) S/P CABG x 4 Iron deficiency anemia Shelly Nelson is a 64 y.o. male with CAD s/p quadruple CABG and bAVR 02/21/25, COPD, GERD, HTN, Afib RVR on Eliquis on presented to with a suspected GI bleed. Patient presented to [facility] from OSH yesterday after a near- syncopal event, endorsing dizziness/ unsteadiness on his feet. No LOC. At OSH, SBP in 70s, map in 50s. Hgb was 4.7, patient given 2 units pRBCs. Post-transfusion Hgb improved to 6.8 g/dL; blood pressure stabilized. CTA abdomen and pelvis showed normal esophagus, and negative for active bleeding. Patient reports presenting to outside hospital on 03/20/2025 with constipation. He was given lactulose and 2 enemas, and tarry black ana was noted. Last BM on 03/20. Patient attributes this to generalized fatigue and anorexia. Has been able totolerate fluids, food just not appetizing. Previously admitted on 03/12/2025- 03/17/2025 for chest pain found to have afib with RVR, found to haveHgb < 7 and transfused 1 unit PRBCs on admission and later transfused another I unit on 03/14/2025. Was started on IV iron for 5 doses. On discharge on 03/17, Hgb 7.6, BUN 19 #Upper GI bleed with melena #Normocytic Normochromic Anemia/Anemia of Chronic Disease #Hypotension (Resolved) #Duodenitis #Duodenal bulb ulcer suspected - Report history of melena couple of years ago attributed to high frequency of NSAID use - On Eliquis and Aspirin Last use on 03/24/2025 - Previously admitted on 03/12/2025- 03/17/2025 for chest pain found to have afib with RVR found to have Hgb < 7 and transfused 1 unit PRBCs on admission and later transfused another I unit on 03/14/2025 - Iron studies on that admission on 03/13 transferrin 248, transferrin sat 8, TIBC 310; IV iron started 03/13 for 5 dose duration - On Discharge on 03/17, hemoglobin of 7.6 - 03/20 Melena noticed on BM at OSH, - Generalized weakness for the past 3 days that progressively worsened on 03/24/2025. - Patient reports worsening generalized weakness, chest tightness, lightheadedness, SOB - SBP in 70s, although given Nitroglycerin reroute to hospital - Hemoglobin of 4.7 at OSH - 2 units pRBC at OSH, -Post-transfusion hemoglobin improved to 6.8 g/dL; blood pressure stabilized. -CT angio chest PE protocol (OSH) showed no acute findings( no pleural effusion, no PE). - CTA abdomen and pelvis (OSH )showed normal esophagus, and negative for active bleeding. - On Presentation, HDS, - Denies abdominal pain, denies previous EGD coloscopy Plan: - Okay to resume anticoagulation and antiplatelet medications on 03/26 - discussed with GI - Continue PPI BID for 8-12 weeks then can decrease to daily - ordered H. 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 - Findings and recommendations were discussed with patient. - Target hgb >7 g/dL, #Pseudohypocalcemia - Calcium 8.1, albumin 2.7; corrected zane 10.1 Plan -Ionized Calcium with am lab 03/24 #Gluteal abscess (POA) Patient was admitted to [facility] 03/11/2025 - 03/12/2025. 03/12/2025 CT showed RIGHT gluteal abscess. -Admitted at on 03/12/2025 - General surgery consulted - Bedside I&D on 03/12 + ceftriaxone initiation; gross purulence found; tissue samples showed GPCand GNDC on GS; cx growing E. coli and [place] (Actinomyces). - ID consulted on 03/15/2025 recommended D/c Ceftriaxone, - Zosyn 4.5g IV q6h for 5 days - PO regimen Augmentin 875mg PO BID and Doxycycline 100mg PO BID x 2 weeks -Reports wound care BID at home , - feels wound is healing very slowly - CT A/P (osh, 03/24) : Redemonstration of gas in the right gluteal muscle with gluteal muscle thickening similar to previous exam from 03/20/2025, PLAN - Wound care consulted - Continued Augmentin 875mg PO BID and Doxycycline 100mg - Pain regimen with acetaminophen+ oxycodone #Anorexia #Constipation - NO BM in past 4 days in setting of food intake -CT A/P from OSH reports improved Stool burden compared to 03/20 PLAN -Bowel regimen ordered - Nutritional consult Chronic Problems #Atrial fibrillation with RVR (POA) Previously admitted on 03/12/2025- 03/17/2025 for chest pain found to have afib with RVR - On amiodarone 200 mg daily + metoprolol 100 mg TID + Apixaban - 03/15: rates in 120s, EP consulted for assist with rate control - 03/16: DCCV completed with conversion to NSR - 03/17: maintaining NSR EKG: NSR with ST and T wave abnormalities - Holding metoprolol 100 mg TID + Apixaban for now - Continue Amiodarone for now, consider holding with recurrent hypotension #HFmEF #CAD (POA) #S/p CABG and bAVR on 02/21/2025 #NSTEMI 02/2025 -Last Echo on 03/12: EF of 40- 55% left ventricle is normal size, concentric hypertrophic - ProBNP :1495 -02/15/2025 LHC showed critical L main disease and aortic stenosis. Pt left AMA but then returned 02/16/2025. Pt transferred to and admitted 02/16/2025 - 03/02/2025. S/p 02/21/2025 CABG x 4v (RODRIGUEZ to LAD;rSVG to distal RCA, ramus intermedius, 2 OM) and bAVR - Routine post cardiac surgery care: sternal precautions x 6 weeks, - bowel regimen to prevent constipation and aggressive pulmonary toilet. - PT/OT - Holding ASA for now #COPD -Spiriva (tiotropium bromide) ; and Dulera (Mometasone furoate and fumarate) ordered -DuoNebs q6 PRN -Titrate O2NC to SpO2 88-92% Hypertension (POA) - Holding metoprolol now 100 mg BID for rate control Hyperlipidemia (POA) -Continue statin BPH (POA) - no home meds, GERD (POA) -PPI as above Tobacco abuse (POA) -Reports quit smoking post CABG * Progress Notes - Yin Christopher MD - 03/26/2025 3:26 PM EDT Subjective Pt seen at bedside Doing well Feels improved after blood transfusion Underwent EGD 03/25 Hb remains stable post EGD Review of Systems Constitutional: Positive for activity change and fatigue. HENT: Negative for congestion, dental problem and drooling. Eyes: Negative for discharge and itching. Respiratory: Negative for apnea, choking and chest tightness. Cardiovascular: Negative for chest pain and leg swelling. Gastrointestinal: Positive for abdominal pain. Negative for abdominal distention, anal bleeding, blood in stool and constipation. Endocrine: Negative for cold intolerance, heat intolerance and polydipsia. Genitourinary: Negative for difficulty urinating, dysuria, enuresis, flank pain and frequency. Musculoskeletal: Positive for arthralgias. Negative for back pain, gait problem and joint swelling. Skin: Positive for wound. Neurological: Negative for dizziness, facial asymmetry, light-headedness and headaches. Psychiatric/Behavioral: Negative for agitation, behavioral problems and confusion. All other systems reviewed and are negative. Objective Physical Exam Constitutional: Appearance: Normal appearance. He is well-groomed. He is ill-appearing. HENT: Head: Normocephalic and atraumatic. Eyes: General: Lids are normal. Vision grossly intact. Gaze aligned appropriately. Pupils: Pupils are equal, round, and reactive to light. Cardiovascular: Rate and Rhythm: Normal rate and regular rhythm. Pulses: Radial pulses are 2+ on the right side and 2+ on the left side. Dorsalis pedis pulses are 2+ on the right side and 2+ on the left side. Posterior tibial pulses are 2+ on the right side and 2+ on the left side. Heart sounds: Normal heart sounds, S1 normal and S2 normal. Comments: Sternotomy present Pulmonary: Effort: Pulmonary effort is normal. Breath sounds: Normal breath sounds. Abdominal: General: Bowel sounds are normal. Palpations: Abdomen is soft. Tenderness: There is no abdominal tenderness. There is no right CVA tenderness, left CVA tenderness, guarding or rebound. Musculoskeletal: General: Normal range of motion. Right upper arm: Normal. No swelling or edema. Left upper arm: Normal. No swelling or edema. Cervical back: Normal range of motion and neck supple. No edema or erythema. Right lower leg: No edema. Left lower leg: No edema. Right foot: Normal. Left foot: Normal. Skin: General: Skin is warm. Capillary Refill: Capillary refill takes less than 2 seconds. Coloration: Skin is not jaundiced or pale. Comments: Right gluteal wound malodorous drainage Neurological: General: No focal deficit present. Mental Status: He is alert and oriented to person, place, and time. Mental status is at baseline. GCS: GCS eye subscore is 4. GCS verbal subscore is 5. GCS motor subscore is 6. Psychiatric: Attention and Perception: Attention and perception normal. Mood and Affect: Mood and affect normal. Speech: Speech normal. Behavior: Behavior normal. Behavior is cooperative. Thought Content: Thought content normal. Last Recorded Vitals Blood pressure 114/63, pulse 80, temperature 36.9 ??C (98.4 ??F), temperature source Oral, resp. rate 25, height 1.803 m (5' 10.98 ), weight 91.5 kg (201 lb 11.5 oz), SpO2 98%. Assessment/Plan Principal Problem: Upper GI bleeding Active Problems: CAD, multiple vessel HLD (hyperlipidemia) HTN (hypertension) COPD (chronic obstructive pulmonary disease) (CMS/HCC) GERD (gastroesophageal reflux disease) Heart failure with mid-range ejection fraction (HFmEF) ([facility]) S/P CABG x 4 Iron deficiency anemia Shelly Girma Nelson is a 64 y.o. male with CAD s/p quadruple CABG and bAVR 02/21/25, COPD, GERD, HTN, Afib RVR on Eliquis on presented to with a suspected GI bleed. Patient presented to ED from OSH yesterday after a near- syncopal event, endorsing dizziness/ unsteadiness on his feet. No LOC. At OSH, SBP in 70s, map in 50s. Hgb was 4.7, patient given 2 units pRBCs. Post-transfusion Hgb improved to 6.8 g/dL; blood pressure stabilized. CTA abdomen and pelvis showed normal esophagus, and negative for active bleeding. Patient reports presenting to outside hospital on 03/20/2025 with constipation. He was given lactulose and 2 enemas, and tarry black ana was noted. Last BM on 03/20. Patient attributes this to generalized fatigue and anorexia. Has been able totolerate fluids, food just not appetizing. Previously admitted on 03/12/2025- 03/17/2025 for chest pain found to have afib with RVR, found to haveHgb < 7 and transfused 1 unit PRBCs on admission and later transfused another I unit on 03/14/2025. Was started on IV iron for 5 doses. On discharge on 03/17, Hgb 7.6, BUN 19 #Upper GI bleed with melena #Normocytic Normochromic Anemia/Anemia of Chronic Disease #Hypotension (Resolved) #Duodenitis #Duodenal bulb ulcer suspected - Report history of melena couple of years ago attributed to high frequency of NSAID use - On Eliquis and Aspirin Last use on 03/24/2025 - Previously admitted on 03/12/2025- 03/17/2025 for chest pain found to have afib with RVR found to have Hgb < 7 and transfused 1 unit PRBCs on admission and later transfused another I unit on 03/14/2025 - Iron studies on that admission on 03/13 transferrin 248, transferrin sat 8, TIBC 310; IV iron started 03/13 for 5 dose duration - On Discharge on 03/17, hemoglobin of 7.6 - 03/20 Melena noticed on BM at OSH, - Generalized weakness for the past 3 days that progressively worsened on 03/24/2025. - Patient reports worsening generalized weakness, chest tightness, lightheadedness, SOB - SBP in 70s, although given Nitroglycerin reroute to hospital - Hemoglobin of 4.7 at OSH - 2 units pRBC at OSH, -Post-transfusion hemoglobin improved to 6.8 g/dL; blood pressure stabilized. -CT angio chest PE protocol (OSH) showed no acute findings( no pleural effusion, no PE). - CTA abdomen and pelvis (OSH )showed normal esophagus, and negative for active bleeding. - On Presentation, HDS, - Denies abdominal pain, denies previous EGD coloscopy Plan: - Okay to resume anticoagulation and antiplatelet medications on 03/26 - discussed with GI - Continue PPI BID for 8-12 weeks then can decrease to daily - Check H. 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 - Findings and recommendations were discussed with patient. - Target hgb >7 g/dL, #Pseudohypocalcemia - Calcium 8.1, albumin 2.7; corrected zane 10.1 Plan -Ionized Calcium with am lab 03/24 #Gluteal abscess (POA) Patient was admitted to [facility] 03/11/2025 - 03/12/2025. 03/12/2025 CT showed RIGHT gluteal abscess. -Admitted at on 03/12/2025 - General surgery consulted - Bedside I&D on 03/12 + ceftriaxone initiation; gross purulence found; tissue samples showed GPCand GNDC on GS; cx growing E. coli and [place] (Actinomyces). - ID consulted on 03/15/2025 recommended D/c Ceftriaxone, - Zosyn 4.5g IV q6h for 5 days - PO regimen Augmentin 875mg PO BID and Doxycycline 100mg PO BID x 2 weeks -Reports wound care BID at home , - feels wound is healing very slowly - CT A/P (osh, 03/24) : Redemonstration of gas in the right gluteal muscle with gluteal muscle thickening similar to previous exam from 03/20/2025, which may represent a fistulous wound or drainage tr PLAN - Consider ID consult -Wound consulted - Continued Augmentin 875mg PO BID and Doxycycline 100mg pending ID recs. - Pain regimen with acetaminophen+ oxycodone #Anorexia #Constipation - NO BM in past 4 days in setting of food intake -CT A/P from OSH reports improved Stool burden compared to 03/20 PLAN -Bowel regimen ordered - Nutritional consult Chronic Problems #Atrial fibrillation with RVR (POA) Previously admitted on 03/12/2025- 03/17/2025 for chest pain found to have afib with RVR - On amiodarone 200 mg daily + metoprolol 100 mg TID + Apixaban - 03/15: rates in 120s, EP consulted for assist with rate control - 03/16: DCCV completed with conversion to NSR - 03/17: maintaining NSR EKG: NSR with ST and T wave abnormalities - Holding metoprolol 100 mg TID + Apixaban for now - Continue Amiodarone for now, consider holding with recurrent hypotension #HFmEF #CAD (POA) #S/p CABG and bAVR on 02/21/2025 #NSTEMI 02/2025 -Last Echo on 03/12: EF of 40- 55% left ventricle is normal size, concentric hypertrophic - ProBNP :1495 -02/15/2025 LHC showed critical L main disease and aortic stenosis. Pt left AMA but then returned 02/16/2025. Pt transferred to and admitted 02/16/2025 - 03/02/2025. S/p 02/21/2025 CABG x 4v (RODRIGUEZ to LAD;rSVG to distal RCA, ramus intermedius, 2 OM) and bAVR - Routine post cardiac surgery care: sternal precautions x 6 weeks, - bowel regimen to prevent constipation and aggressive pulmonary toilet. - PT/OT - Holding ASA for now #COPD -Spiriva (tiotropium bromide) ; and Dulera (Mometasone furoate and fumarate) ordered -DuoNebs q6 PRN -Titrate O2NC to SpO2 88-92% Hypertension (POA) - Holding metoprolol now 100 mg BID for rate control Hyperlipidemia (POA) -Continue statin BPH (POA) - no home meds, GERD (POA) -PPI as above Tobacco abuse (POA) -Reports quit smoking post CABG * Progress Notes - Violet Chavez RN - 03/26/2025 2:12 PM EDT Case Management Adult Progress Note Shelly Nelson 64 y.o. male CSN: [id number] Admission: 03/25/2025 3:17 AM Primary Problem: Upper GI bleeding Anticipated Discharge Date: 03/29/25 Preliminary referral for wound care (Clinical documents and demographics faxed ([phone]) to : [facility]: a in home wound care provider. Liaison: Williams Atwood ;[phone], Additional Comments Violet Chavez RN * Care Plan - Wilbur Vásquez RN - 03/25/2025 10:37 PM EDT Problem: Adult Inpatient Plan of Care Goal: Plan of Care Review Outcome: Ongoing, Progressing Goal: Patient-Specific Goal (Individualized) Outcome: Ongoing, Progressing Goal: Absence of Hospital-Acquired Illness or Injury Outcome: Ongoing, Progressing * Progress Notes - Deonte Willett RN - 03/25/2025 4:05 PM EDT Images from the original note were not included. Wound Care Consult Visit Date: 03/25/2025 Patient Name: Shelly Nelson Date of : 1960 Admit Date: 03/25/2025 Reason for Consult: IP Wound Orders (From admission, onward) Start Ordered 03/25/25 0517 Wound ostomy eval and treat Coccyx Other (Comments) (AOC) Once Comments: Gluteal wound, actively draining Question: Reason for consult: Answer: Wound/pressure injury 03/25/25 0518 Wound History: PMH of CAD s/p quadruple coronary artery bypass graft (CABG) and bioprosthetic aortic valve replacement (bAVR) on February 21, 2025, COPD, GERD, carotid artery disease, hypertension, AfibRVR on apixaban who presented to ED from an outside hospital with concern for upper GI bleed. Known gluteal I&D abscess vs cyst last admit Wound Assessment: Wound 02/27/25 Other (Comments) Coccyx (Active) Date First Assessed/Time First Assessed: 02/27/25 2300 Primary Wound Type: (c) Other (Comments) Location: Coccyx Wound Description (Comments): linear gluteal cleft AOC, originally purple now white and macerated Assessments 03/25/2025 3:00 PM Wound Image Wound Assessment Red;[place];Painful Margins Well-defined edges Leslie-Wound Assessment Blanchable erythema (less so than prior admitt) Wound Length (cm) 1.8 cm Wound Width (cm) 1 cm Wound Surface Area (cm^2) 1.41 cm^2 Wound Depth (cm) 1 cm Wound Volume (cm^3) 0.942 cm^3 Undermining 1.5 cm Undermining Clock Position of Wound 12 o'clock Wound Healing % 64 Drainage Description Castro Drainage Amount Small Treatments Cleansed;Saline Dressing Moist to dry (with Dakins) Number of Packing Pieces Used 1 Dressing Changed Changed Dressing Status Intact;Old drainage Active Orders Date Order Priority Status Authorizing Provider 03/25/25 0908 Apply/Change Wound Dressing Coccyx Other (Comments) ([facility]) Routine Active Iliana Carpenter MD - Dressing Type: Other Dressings - Other: Other (Comment) - Other dressing (comment):: BID, irrigate wound with NS flush. Pack with Dakin's (sodium hypochlorite) moist gauze. Apply barrier spray to periwound skin, let dry. Cover wound with dry dressing. Wound Team Summary Assessment: pt seen, assessment revealed pt in lass pain and erythema at glutealsite than last admit, wound without slough now, cont's with undermining at 12 oclock, drainage cont's to be purulent castro, recommend cont with Dakins WTD packing BID. Wound details above. Wound Team Plan: Wound care will follow up at regular intervals while inpatient; bedside nursing tofollow wound care recommendations as ordered and please re- consult sooner for new changes or concerns prior to follow up. Deonte Willett RN CWOCN 03/25/2025 4:05 PM * Merlyn Way RN - 03/25/2025 3:58 PM EDT Images from the original note were not included. [id number] Endoscopy Unit: Caring for Yourself after an Esophogastroduodenoscopy (EGD) What precautions do I need to take after my procedure? You will get a medicine that makes you sleep during treatment. It may affect you for the next 24 hours. ?? Do not drive or go home alone. Someone must be with you until you get home. ?? For 24 hours, do not make legal decisions, drive, or use dangerous equipment. ?? You may continue taking your home medicines, unless your doctor tells you otherwise. When can I eat or drink? You may eat your normal diet, unless otherwise told by your doctor. Start with a small amount of bland foods and add other foods as tolerated. Spicy or greasy foods may cause nausea. How active can I be? You should move around as you are able. Do your normal activities if you feel you can. Sexual activity is fine, unless your doctor tells you otherwise. How do I find out my biopsy results? If you had a biopsy, it may take 7-10 days for results. These will be available in the patient portal, [facility]. Or you can call the doctor who ordered your procedure. When should I call the doctor? Call 911 right away or go to the nearest emergency department if you have any of these: ?? Difficulty breathing ?? Severe pain in the throat ?? Severe pain in the chest or belly ?? Vomiting that does not go away ?? Fever of 101??F or higher ?? Redness or tenderness of the IV site that lasts longer than 48 hours ?? Any other symptoms that concern you These may be related to a complication and need medical attention. If you do not tell your doctor, the problem may get worse. Our contact information: For the Endoscopy Provider, call and ask for the Endoscopy Fellow on-call. * Ivonne HooperFORMERLY [facility] - Merlyn Centeno RN - 03/25/2025 3:58 PM EDT Images from the original note were not included. [id number] Anesthesia: General Anesthesia You?re due to have surgery. During surgery, you?ll be given medicine called anesthesia or anesthetic. This will keep you comfortable and pain-free. Your anesthesia provider will use general anesthesia . You are watched continuously during your procedure by your anesthesia provider. What is general anesthesia? General anesthesia puts you into a state like deep sleep. It goes into the bloodstream (IV anesthetics), into the lungs (gas anesthetics),or both. You feel nothing during the procedure. You won't remember it either. During the procedure, the anesthesia provider monitors you continuously. They trackyour heart rate and rhythm, blood pressure, breathing, and blood oxygen. ?? IV anesthetics. IV anesthetics are given through an IV (intravenous) line in your arm. They?re often given first. This is so you're asleep before a gas anesthetic is started. Some kinds of IV anesthetics ease pain. Others relax you. Your healthcare provider will decide which kind is best in yourcase. ?? Gas anesthetics. Gas anesthetics are breathed into the lungs. They're often used to keep you asleep. They can be given through a face mask. Or they can be given through a tube placed in your voicebox (larynx) or breathing tube (trachea). o Face mask. Your anesthesia provider will most likely place the face mask over your nose and mouthwhile you?re still awake. You?ll breathe oxygen through the mask as your IV anesthetic is started. Gas anesthetic may be added through the mask. o Tube in the larynx or trachea. The tube will be inserted into your throat after you?re asleep. Anesthesia tools and medicines You will likely have: ?? IV anesthetics. These are put into an IV line into your bloodstream. ?? Gas anesthetics. You breathe these anesthetics into your lungs. Then they pass into your bloodstream. ?? Pulse oximeter. This is a small clip that's attached to the end of your finger. It measures yourblood oxygen level. ?? Electrocardiography leads (electrodes). These are small sticky pads that are placed on your chest. They record your heart rate and rhythm. ?? Blood pressure cuff. This reads your blood pressure. Risks and possible complications General anesthesia has some risks. These include: ?? Breathing problems ?? Upset stomach (nausea) and vomiting ?? Sore throat or hoarseness (usually temporary) ?? Allergic reaction to the anesthetic ?? Irregular heartbeat (rare) ?? Cardiac arrest (rare) Anesthesia safety ?? Follow any directions you're given for not eating or drinking before your procedure. ?? Tell your healthcare provider what medicines you take. This includes prescription and [id number] medicines. It also includes vitamins, herbs, and other supplements. You'll be asked when those were last taken. ?? Have a trusted adult drive you home after the procedure. ?? For the first 24 hours after your surgery: o Don't drive or use heavy equipment. o Don't make important decisions or sign legal documents. If important decisions or signing legal documents is necessary during the first 24 hours after surgery, have a trusted family member or spouse act on your behalf. o Don't drink alcohol. o Have a responsible adult stay with you. They can watch for problems and help keep you safe. Last Reviewed Date: 2024 00:00:00 ?? [id number] [employer]. All rights reserved. This information is not intended as a substitute for professional medical care. Always follow your healthcare professional's instructions. * Consults - Taylor Santiago RD - 03/25/2025 11:55 AM EDTAssociated Order(s): IP CONSULT TO NUTRITION SERVICES Adult Nutrition Evaluation Note Shelly Nelson 64 y.o. male CSN: [id number] Room/Bed 605/605A Nutrition evaluation type: assessment Reason for evaluation: provider consult Hospital course: 64 yo male who presented to ED from an outside hospital with concern for upper GI bleed. Past medical/ surgical history: 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[1] Surgical History[2] Social history: former smoker Additional comments: Pt lying in bed, reports appetite has been declined since surgery (CABG) ~1 month ago. BM frequency is decreased, PO intake has been minimal for several days per pt. Wt prior to surgery was 237# per pt, ~12% loss if accurate. Pt endorses some recent swelling that has improved during this time frame as well. Pt denied n/v, denied chewing/swallowing difficulty. Vitals and Basic Assessment: BP: 115/69 Temp: 36.8 ??C (98.3 ??F) Oxygen Therapy: None (Room air) [place] Coma Scale Score: 15 Reyes Scale Score: 17 GI Symptoms: Nausea Allergies: NKFA per pt Medications: amiodarone, 200 mg, Oral, Daily amoxicillin-clavulanate XR, 2,000 mg, Oral, q12h [Held by provider] apixaban, 5 mg, Oral, BID atorvastatin, 80 mg, Oral, Nightly doxycycline, 100 mg, Oral, BID mometasone-formoterol, 2 puff, Inhalation, BID pantoprazole, 40 mg, Intravenous, BID polyethylene glycol, 17 g, Oral, Daily senna, 2 tablet, Oral, Nightly Insert peripheral IV, , , Once AND Saline lock IV, , , Once AND sodium chloride, 10 mL, Intravenous, q12h AND sodium chloride, 10 mL, Intravenous, PRN Insert peripheral IV, , , Once AND Saline lock IV, , , Once AND sodium chloride, 10 mL, Intravenous, q12h AND sodium chloride, 10 mL, Intravenous, PRN Sodium Hypochlorite, , Topical, BID Tiotropium [place] Monohydrate, 2 puff, Inhalation, Daily PRN medications: acetaminophen, bisacodyl, ipratropium-albuterol, oxyCODONE, Insert peripheral IV AND Saline lock IV AND sodium chloride AND sodium chloride, Insert peripheral IV AND Saline lock IV AND sodium chloride AND sodium chloride Meds were reviewed: Yes Labs: Lab Results Component Value Date GLUCOSE 104 (H) 03/25/2025 CALCIUM 8.1 (L) 03/25/2025 NA 137 03/25/2025 K 4.3 03/25/2025 CO2 21 (L) 03/25/2025 CL 106 03/25/2025 BUN 33 (H) 03/25/2025 CREATININE 0.85 03/25/2025 PHOS 3.2 03/02/2025 MG 1.9 03/17/2025 HGBA1C 5.5 02/16/2025 Anthropometrics: Height: 180.3 cm (5' 10.98 ) Weight: 94.8 kg (208 lb 15.9 oz) BMI (Calculated): 29.16 [place] Body Weight (kg): 78.2 Percent [place] Body Weight: 121 Wt Readings from Last 10 Encounters: 03/25/25 94.8 kg (208 lb 15.9 oz) 03/17/25 98.8 kg (217 lb 13 oz) 03/02/25 106 kg (232 lb 12.9 oz) 06/02/21 105 kg (232 lb) 05/19/21 105 kg (232 lb) 05/02/21 105 kg (232 lb 2.3 oz) Estimated Needs: Metabolic Cart Study Results: Current Nutrition Intake: Diet Order: NPO Diet Experience and Nutrition History: Diet Education Provided: Will monitor Pertinent home medications: Reviewed. [place] needs: Nutrition Focused Physical Exam: Physical exam performed on (date): 03/25/25 [place] (muscles): None Clavicle (muscle): None Shoulder (muscle): Mild Interosseous (muscle): None Thigh (muscle): None Calf (muscle): None Orbital (fat): None Triceps (fat): None Assessment of Malnutrition: Malnutrition Identified: No Nutrition Problem: Unintended weight loss related to inadequate energy intake/increased nutrient needs as evidenced byprior BW 237# as per pt, current BW 208# per documentation. Status of Nutrition Diagnosis: New Nutrition Interventions and Recommendations: -NPO per team -Recommend Cardiac diet when PO resumes -Add Boost BID when diet advances past CL's. Nutrition Monitoring and Goals: -Nutrition to start -Wt maintenance -Normalizing GI fxn Acuity Level: [address], LD [1] Past 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: Diagnosis Date Abnormal ECG BPH (benign prostatic hyperplasia) Cervical radiculopathy COPD (chronic obstructive pulmonary disease) ([facility]) Coronary artery disease GERD (gastroesophageal reflux disease) Heart valve disease Hypertension On mechanically assisted ventilation ([facility]) 02/21/2025 Intubated for procedure, arrived to ICU [...] and 2 obtuse marginal artery. (Dr. Lata Sauh) HERNIA REPAIR NECK SURGERY SHOULDER SURGERY * Consults - Lo Qiu DO - 03/25/2025 11:00 AM EDTAssociated Order(s): IP CONSULT TO GASTROENTEROLOGY Images from the original note were not included. Gastroenterology Consult Note Reason for Consult: Acute GI bleed HPI Shelly Nelson is a 64 y.o. male with CAD s/p quadruple CABG and bAVR 02/21/25, COPD, GERD, HTN, Afib RVR on Eliquis on whom we were consulted for suspected GI bleed. Patient presented to [facility] from OSH yesterday after a near- syncopal event, endorsing dizziness/ unsteadiness on his feet. No LOC. At OSH, SBP in 70s, map in 50s. Hgb was 4.7, patient given 2 units pRBCs. Post-transfusion Hgb improved to 6.8 g/dL; blood pressure stabilized. CTA abdomen and pelvis showed normal esophagus, and negative for active bleeding. Of note, patient reports presenting to outside hospital on 03/20/2025 with constipation. He was given lactulose and 2 enemas, and tarry black ana was noted. Last BM on 03/20. Patient attributes this to generalized fatigue and anorexia. Has been able to tolerate fluids, food just not appetizing. Previously admitted on 03/12/2025- 03/17/2025 for chest pain found to have afib with RVR, found to haveHgb < 7 and transfused 1 unit PRBCs on admission and later transfused another I unit on 03/14/2025. Was started on IV iron for 5 doses. On discharge on 03/17, Hgb 7.6, BUN 19 On presentation of , Hgb 7.4, Hct 23.8, BUN 33. Patient denies any abdominal pain, N/V, dysphagia, odynophagia, or concerns. Endorses generalized bloating and gas. Patient states that he had a history of chronic NSAID use, 3-4 daily, but has since stopped taking so many NSAIDs, per his PCP recommendations, for the past year. He reports a history of melena in the past, at that time he recalls being told his occult blood was positive and that he should get colonoscopy, but he never did. Denies heartburn sxs or GERD, has never been on PPI. Denies Fhx of gastric or colon cancer. Has never had colonoscopy. Denies alcohol use. Reports quitting smoking. ROS All systems reviewed and negative unless otherwise noted in HPI. 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[1] Surgical History[2] Family History[3] Social History[4] Objective Vitals: 03/25/25 0620 03/25/25 0644 03/25/25 0702 03/25/25 0704 BP: 117/59 100/57 94/59 131/79 BP Location: Right arm Patient Position: Lying Pulse: 65 64 59 96 Resp: 13 18 Temp: 36.9 ??C (98.4 ??F) 36.6 ??C (97.9 ??F) 36.9 ??C (98.4 ??F) 36.8 ??C (98.3 ??F) TempSrc: Oral Oral SpO2: 98% 99% 98% 96% Weight: Height: BMI: Body mass index is 29.15 kg/m??. Physical Exam: General Awake, NAD Eyes EOMI, sclera anicteric Head NC/AT ENT OP moist. Hearing grossly normal. CV Warm and well perfused. Sternotomy present RES Equal chest rise, normal effort on room air GI Soft. NT/ND. No rebound, guarding. KAMRAN AAOx4. No gross deficits. EXT No cyanosis. No edema Skin R gluteal wound. PSY Appropriate mood and affect I/O: No intake/output data recorded. No intake/output data recorded. Labs: CBC: Results from last 7 days Lab Units 03/25/25 0828 03/25/25 0329 WBC 10*3/uL -- 7.34 HEMOGLOBIN g/dL 7.0* 7.4* HEMATOCRIT % 22.3* 23.8* PLATELETS 10*3/uL -- 220 CMP: Results from last 7 days Lab Units 03/25/25 0336 03/25/25 0329 SODIUM mmol/L -- 137 POTASSIUM mmol/L -- 4.3 CHLORIDE mmol/L -- 106 CO2 mmol/L -- 21* BUN mg/dL -- 33* CREATININE mg/dL -- 0.85 CALCIUM mg/dL -- 8.1* BILIRUBIN TOTAL mg/dL 1.0 -- ALKALINE PHOSPHATASE U/L 74 -- ALT U/L 21 -- AST U/L 26 -- GLUCOSE mg/dL -- 104* Microbiology/Abx: Antimicrobials Tetracyclines Disp Start End doxycycline (Vibra-Tabs) tablet 100 mg -- 03/25/2025 -- 100 mg, Oral, 2 times daily Penicillin Combinations Disp Start End amoxicillin-clavulanate XR (Augmentin XR) 1000-62.5 MG per 12 hr tablet 2 tablet -- 03/25/2025 -- 2 tablets, Oral, Every 12 hours, Do NOT crush. If tablet has score line, may split along score. Results No results found for the last 48 hours. Medications (scheduled): amiodarone, 200 mg, Oral, Daily amoxicillin-clavulanate XR, 2,000 mg, Oral, q12h [Held by provider] apixaban, 5 mg, Oral, BID atorvastatin, 80 mg, Oral, Nightly doxycycline, 100 mg, Oral, BID mometasone-formoterol, 2 puff, Inhalation, BID pantoprazole, 40 mg, Intravenous, BID polyethylene glycol, 17 g, Oral, Daily senna, 2 tablet, Oral, Nightly sodium chloride, 10 mL, Intravenous, q12h sodium chloride, 10 mL, Intravenous, q12h Sodium Hypochlorite, , Topical, BID Tiotropium [place] Monohydrate, 2 puff, Inhalation, Daily Medications (continous): Medications (PRN): PRN medications: acetaminophen, bisacodyl, ipratropium-albuterol, oxyCODONE, Insert peripheral IV AND Saline lock IV AND sodium chloride AND sodium chloride, Insert peripheral IV AND Saline lock IV AND sodium chloride AND sodium chloride Assessment and Plan Shelly Rayo Jr Leslie is a 64 y.o. male with CAD s/p quadruple CABG and bAVR 02/21/25 and Afib on eliquis on whom we were consulted for melena and concern for UGIB. Melena Acute blood loss anemia -Reports hx of melena a couple of years ago attributed to high frequency of NSAID use, has since decreased use - Previously admitted on 03/12/2025- 03/17/2025 for afib with RVR, found to have Hgb < 7, transfused1 unit PRBCs on admission and another I unit on 03/14/2025, iron studies consistent w MADIE, was started on IV iron 03/13 for 5 doses - On discharge on 03/17, Hgb 7.6, BUN 19 - 5/10 melena noted on BM at OSH - 03/25 at OSH, Hgb of 4.7 at OSH, given 2 units pRBCs, post-transfusion Hgb improved to 6.8 g/dL; BP stabilized - CTA A/P (OSH ): normal esophagus, negative for active bleeding - On [facility] presentation, HDS, Hgb 7.4, BUN 33 (19), recheck Hgb 7, given - On Eliquis and Aspirin, Last use on 03/24/2025 PLAN DDx: PUD, erosions, esophagitis, gastritis, angioectasias, Sirena-Richardson tear, or Dieulafoy's lesion - Hold NPO - Maintain two large bore IV's, type and cross, trend H&H regularly - Target Hgb > 7 g/dL, PLT >50,000 and INR < 2.5 - Continue PPI BID IV - Tentative plan for EGD on 03/25 if endoscopy timing permits; if unable to do, will plan for evaluation on 03/26 - Please notify the GI fellow on-call if a change in the patient's clinical condition indicates that more urgent/emergent endoscopy is needed. If emergent endoscopy is required overnight, then the patient should in an ICU bed. Staffed w/ attending: Dr. Aggarwal Thank you for allowing us to participate in this patient's care. Please do not hesitate to call or page with questions or concerns. Henri Santiago, MS3 Mr. Nelson was evaluated alongside Henri Santiago MS3. Exam notable for benign abdominal exam including no distension or tenderness. The above assessment and plan reflects our discussion with Dr. Aggarwal during rounds. Patient agreeable for EGD for assessment of melena. Lo Qiu DO PGY-4 Gastroenterology Fellow [facility] [1] Past 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: Diagnosis Date Abnormal ECG BPH (benign prostatic hyperplasia) Cervical radiculopathy COPD (chronic obstructive pulmonary disease) ([facility]) Coronary artery disease GERD (gastroesophageal reflux disease) Heart valve disease Hypertension On mechanically assisted ventilation ([facility]) 02/21/2025 Intubated for procedure, arrived to ICU [...] [3] No family history on file. [4] Social History Tobacco Use Smoking status: Former Types: Cigarettes Smokeless tobacco: Never Substance Use Topics Alcohol use: Not Currently Drug use: Not Currently Cosigned by Meagan Aggarwal MD at 03/26/2025 10:10 AM EDT Associated attestation - Meagan Aggarwal MD - 03/26/2025 10:10 AM EDT I saw and evaluated the patient with the resident/fellow. I discussed the case with the resident/fellow and agree with the findings and plan as documented. * H&P - Ramez Cordoba APRN, DNP - 03/25/2025 4:38 AM EDTAssociated Order(s): Consult to Hospital Medicine Images from the original note were not included. Consult to Hospital Medicine Consult performed by: Ramez Cordoba APRN, DNP Consult ordered by: Gretchen Hidalgo MD Reason for consult: Concern for GI BLeed Chief Complaint: Suspected GI bleed History of Present Illness: Mr. Shelly Rayo Jr Nelson, a 64-year-old male with PMH of CAD s/p quadruple coronary artery bypass graft (CABG) and bioprosthetic aortic valve replacement (bAVR) on February 21, 2025, COPD, GERD, carotidartery disease, hypertension, Afib RVR on apixaban who presented to ED from an outside hospital with concern for upper GI bleed. Patient endorses onset of generalized weakness for the past 3 days that progressively worsened on 03/24/2025. Patient reports feeling worsening generalized weakness, chest tightness, lightheadedness, SOB, and was feeling like he was going to pass out He asked his sister to take her blood pressure, his systolic was in 70s. He presented to an outside hospital where he was found to be hypotensive with systolic of 70s, map in 50s. EKG are outside hospital demonstrated nonspecific ST/T-wave changes consistent with patient's previous EKGs. Lab was significant for pro BNP of 1770, hemoglobin of 4.7. Patient was transfused 2 units pRBC. Post-transfusion hemoglobin improved to 6.8 g/dL; blood pressure stabilized. CT angio chest PE protocol showed no acute findings( no pleural effusion, no PE). CTA abdomen and pelvis showed normal esophagus, and negative for active bleeding. He was transferred to for higher level of care.. Of note, patient reports presenting to outside hospital on 03/20/2025 with constipation. He was given lactulose, and melena was noted on his bowel movement in the hospital. Patient denies BM since then given poor by mouth intake in the setting of anorexia. Patient denies NSAID use, fever, sweats, chills, cough, chest pain, syncope, dizziness, shortness of breath,hematemesis, nausea, vomiting, melena, and diarrhea, constipation, dysuria, frequency, or urgency, On presentation, patient was hemodynamically stable, reports improvement in prior symptoms was transfusion. Hemoglobin was 7.4, hematocrit 23.8. Patient at bedside provided HPI, along with chart review. Review of Systems: Review of Systems Constitutional: Positive for activity change and fatigue. Negative for chills and fever. Respiratory: Positive for chest tightness and shortness of breath. Negative for cough. Cardiovascular: Negative for leg swelling. Gastrointestinal: Positive for blood in stool. Negative for abdominal pain, constipation, diarrhea,nausea and vomiting. Genitourinary: Negative for flank pain. Past 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: 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[1] Surgical History: Surgical History[2] Family History: Family History[3] Social History: He reports that he has quit smoking. His smoking use included cigarettes. He has never used smokeless tobacco. He reports that he does not currently use alcohol. He reports that he does not currentlyuse drugs. Travel History: Relevant Travel History: Travel Screening Question Response Have you been in contact with someone who was sick? No / Unsure Do you have any of the following new or worsening symptoms? None of these Have you traveled internationally or domestically in the last month? No Travel History Travel since 02/23/25 No documented travel since 02/23/25 Allergies: Patient has no allergy information on record. Vital Signs: Visit Vitals BP 131/79 Pulse 96 Temp 36.8 ??C (98.3 ??F) Resp 18 Ht 1.803 m (5' 11 ) Wt 94.8 kg (208 lb 15.9 oz) SpO2 96% BMI 29.15 kg/m?? Smoking Status Former BSA 2.18 m?? Physical Exam: General: well developed, well-nourished male who presents in no apparent distress Physical Exam Vitals and nursing note reviewed. Constitutional: Appearance: Normal appearance. He is well-groomed. He is ill-appearing. HENT: Head: Normocephalic and atraumatic. Eyes: General: Lids are normal. Vision grossly intact. Gaze aligned appropriately. Pupils: Pupils are equal, round, and reactive to light. Cardiovascular: Rate and Rhythm: Normal rate and regular rhythm. Pulses: Radial pulses are 2+ on the right side and 2+ on the left side. Dorsalis pedis pulses are 2+ on the right side and 2+ on the left side. Posterior tibial pulses are 2+ on the right side and 2+ on the left side. Heart sounds: Normal heart sounds, S1 normal and S2 normal. Comments: Sternotomy present Pulmonary: Effort: Pulmonary effort is normal. Breath sounds: Normal breath sounds. Abdominal: General: Bowel sounds are normal. Palpations: Abdomen is soft. Tenderness: There is no abdominal tenderness. There is no right CVA tenderness, left CVA tenderness, guarding or rebound. Musculoskeletal: General: Normal range of motion. Right upper arm: Normal. No swelling or edema. Left upper arm: Normal. No swelling or edema. Cervical back: Normal range of motion and neck supple. No edema or erythema. Right lower leg: No edema. Left lower leg: No edema. Right foot: Normal. Left foot: Normal. Skin: General: Skin is warm. Capillary Refill: Capillary refill takes less than 2 seconds. Coloration: Skin is not jaundiced or pale. Comments: Right gluteal wound malodorous drainage Neurological: General: No focal deficit present. Mental Status: He is alert and oriented to person, place, and time. Mental status is at baseline. GCS: GCS eye subscore is 4. GCS verbal subscore is 5. GCS motor subscore is 6. Psychiatric: Attention and Perception: Attention and perception normal. Mood and Affect: Mood and affect normal. Speech: Speech normal. Behavior: Behavior normal. Behavior is cooperative. Thought Content: Thought content normal. Labs (in last 24 hours): CBC: Lab Results Component Value Date WBC 7.34 03/25/2025 RBC 2.56 (L) 03/25/2025 HGB 7.4 (L) 03/25/2025 HCT 23.8 (L) 03/25/2025 PLT 220 03/25/2025 MCV 93 03/25/2025 MCH 28.9 03/25/2025 MCHC 31.1 03/25/2025 RDW 20.9 (H) 03/25/2025 NRBC 0.3 (H) 03/25/2025 Differential: Lab Results Component Value Date WBC 7.34 03/25/2025 NEUTOPHILPCT 54 03/25/2025 LYMPHOPCT 34 03/25/2025 MONOPCT 8 03/25/2025 EOSPCT 1 03/25/2025 Coagulation: Lab Results Component Value Date INR 1.7 (H) 03/25/2025 Renal: Lab Results Component Value Date NA 137 03/25/2025 K 4.3 03/25/2025 CL 106 03/25/2025 CO2 21 (L) 03/25/2025 BUN 33 (H) 03/25/2025 CREATININE 0.85 03/25/2025 GLUCOSE 104 (H) 03/25/2025 CALCIUM 8.1 (L) 03/25/2025 Liver: Lab Results Component Value Date AST 26 03/25/2025 ALT 21 03/25/2025 BILITOT 1.0 03/25/2025 Glucose: No results found for: PGLU Lab Results Component Value Date HGBA1C 5.5 02/16/2025 Microbiology: Results No results found for the last 48 hours. Imaging (in last 24 hours): Assessment and plan: Principal problem: Upper GI bleeding - Principal Problem: Upper GI bleeding Active Problems: CAD, multiple vessel HLD (hyperlipidemia) HTN (hypertension) COPD (chronic obstructive pulmonary disease) ([facility]) GERD (gastroesophageal reflux disease) Heart failure with mid-range ejection fraction (HFmEF) ([facility]) S/P CABG x 4 Iron deficiency anemia Mr. Shelly Rayo Jr Leslie, a 64-year-old male with PMH of CAD s/p quadruple coronary artery bypass graft (CABG) and bioprosthetic aortic valve replacement (bAVR) on February 21, 2025, COPD, GERD, carotidartery disease, hypertension, Afib RVR on apixaban who presented to ED from an outside hospital with concern for upper GI bleed. Problems #Suspected GI bleed with melena #Normocytic Normochromic Anemia/Anemia of Chronic Disease #Hypotension (Resolved) - Report history of melena couple of years ago attributed to high frequency of NSAID use - On Eliquis and Aspirin Last use on 03/24/2025 - Previously admitted on 03/12/2025- 03/17/2025 for chest pain found to have afib with RVR found to have Hgb < 7 and transfused 1 unit PRBCs on admission and later transfused another I unit on 03/14/2025 - Iron studies on that admission on 03/13 transferrin 248, transferrin sat 8, TIBC 310; IV iron started 03/13 for 5 dose duration - On Discharge on 03/17, hemoglobin of 7.6 - 5/10 Melena noticed on BM at OSH, - Generalized weakness for the past 3 days that progressively worsened on 03/24/2025. - Patient reports worsening generalized weakness, chest tightness, lightheadedness, SOB - SBP in 70s, although given Nitroglycerin reroute to hospital - Hemoglobin of 4.7 at OSH - 2 units pRBC at OSH, -Post-transfusion hemoglobin improved to 6.8 g/dL; blood pressure stabilized. -CT angio chest PE protocol (OSH) showed no acute findings( no pleural effusion, no PE). - CTA abdomen and pelvis (OSH )showed normal esophagus, and negative for active bleeding. - On Presentation, HDS, - WBC: 7.34, RBC: 2.56 (L), Hgb 7.4 (L) (baseline), HCT: 23.8 (L), MCV: 93, MCHC:31.1, RDW: 20.9, NRBC:0.3 (H), - ProBNP 1495 - Pt is alert, oriented, with o2 saturation > 90% on RA - EKG: NSR with ST and T wave abnormalities - Denies abdominal pain, denies previous EGD coloscopy Plan: - GI consult am - Occult fecal blood pending - Pantoprazole 40 mg IV BID un - Strict I & O - Telemetry - Type and screened and crossmatched. Blood consent signed? - Holding Eliquis for now - NPO after midnight - Two large bore IVs. - Target hgb >7 g/dL, -Lactate dehydrogenase (LDH) Reticulocytes and low Haptoglobin to rule out hemolytic anemia -Serial H& H q 6hrs #Pseudohypocalcemia - Calcium 8.1, albumin 2.7; corrected zane 10.1 Plan -Ionized Calcium with am lab 03/24 #Gluteal abscess (POA) Patient was admitted to [facility] 03/11/2025 - 03/12/2025. 03/12/2025 CT showed RIGHT gluteal abscess. -Admitted at on 03/12/2025 - General surgery consulted - Bedside I&D on 03/12 + ceftriaxone initiation; gross purulence found; tissue samples showed GPCand GNDC on GS; cx growing E. coli and [place] (Actinomyces). - ID consulted on 03/15/2025 recommended D/c Ceftriaxone, - Zosyn 4.5g IV q6h for 5 days - PO regimen Augmentin 875mg PO BID and Doxycycline 100mg PO BID x 2 weeks -Reports wound care BID at home , - feels wound is not healing, continuous malodorous drainage - CT A/P (osh, 03/24) : Redemonstration of gas in the right gluteal muscle with gluteal muscle thickening similar to previous exam from 03/20/2025, which may represent a fistulous wound or drainage tr PLAN - Consider ID consult -Wound consulted - Continued Augmentin 875mg PO BID and Doxycycline 100mg pending ID recs. - Pain regimen with acetaminophen+ oxycodone #Anorexia #Constipation - NO BM in past 4 days in setting of food intake -CT A/P from OSH reports improved Stool burden compared to 03/20 PLAN -Bowel regimen ordered - Nutritional consult Chronic #Atrial fibrillation with RVR (POA) Previously admitted on 03/12/2025- 03/17/2025 for chest pain found to have afib with RVR - On amiodarone 200 mg daily + metoprolol 100 mg TID + Apixaban - 03/15: rates in 120s, EP consulted for assist with rate control - 03/16: DCCV completed with conversion to NSR - 03/17: maintaining NSR EKG: NSR with ST and T wave abnormalities - Holding metoprolol 100 mg TID + Apixaban for now - Continue Amiodarone for now, consider holding with recurrent hypotension #HFmEF #CAD (POA) #S/p CABG and bAVR on 02/21/2025 #NSTEMI 02/2025 -Last Echo on 03/12: EF of 40- 55% left ventricle is normal size, concentric hypertrophic - ProBNP :1495 -02/15/2025 LHC showed critical L main disease and aortic stenosis. Pt left AMA but then returned 02/16/2025. Pt transferred to and admitted 02/16/2025 - 03/02/2025. S/p 02/21/2025 CABG x 4v (RODRIGUEZ to LAD;rSVG to distal RCA, ramus intermedius, 2 OM) and bAVR - Routine post cardiac surgery care: sternal precautions x 6 weeks, - bowel regimen to prevent constipation and aggressive pulmonary toilet. - PT/OT - Holding ASA for now #COPD -Spiriva (tiotropium bromide) ; and Dulera (Mometasone furoate and fumarate) ordered -DuoNebs q6 PRN -Titrate O2NC to SpO2 88-92% Hypertension (POA) - Holding metoprolol now 100 mg BID for rate control Hyperlipidemia (POA) -Continue statin BPH (POA) - no home meds, GERD (POA) -PPI as above Tobacco abuse (POA) -Reports quit smoking post CABG Medications Scheduled: amiodarone, 200 mg, Oral, Daily amoxicillin-clavulanate XR, 2,000 mg, Oral, q12h [Held by provider] apixaban, 5 mg, Oral, BID atorvastatin, 80 mg, Oral, Nightly doxycycline, 100 mg, Oral, BID mometasone-formoterol, 2 puff, Inhalation, BID pantoprazole, 40 mg, Intravenous, BID polyethylene glycol, 17 g, Oral, Daily senna, 2 tablet, Oral, Nightly sodium chloride, 10 mL, Intravenous, q12h sodium chloride, 10 mL, Intravenous, q12h Tiotropium [place] Monohydrate, 2 puff, Inhalation, Daily Continuous: As needed: acetaminophen, 1,000 mg, q6h PRN bisacodyl, 10 mg, Daily PRN oxyCODONE, 5 mg, q6h PRN sodium chloride, 10 mL, PRN sodium chloride, 10 mL, PRN Fluids: Electrolytes: Continue to monitor and replace as appropriate Diet: NPO diet NPO except: Sips with meds DVT prophylaxis: SCDs + SCDs only Code status: Full Code Follow-up visit Future Appointments Date Time Provider Department Center 03/31/2025 12:00 PM [facility] 03/31/2025 1:00 PM Ltaa Sahu MD [facility] Ramez Cordoba APRN, DNP [1] Past 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: Diagnosis Date Abnormal ECG BPH (benign prostatic hyperplasia) Cervical radiculopathy COPD (chronic obstructive pulmonary disease) ([facility]) Coronary artery disease GERD (gastroesophageal reflux disease) Heart valve disease Hypertension On mechanically assisted ventilation ([facility]) 02/21/2025 Intubated for procedure, arrived to ICU [...] SURGERY [3] No family history on file. * ED Provider Notes - Gretchen Hidalgo MD - 03/25/2025 3:17 AM EDT Images from the original note were not included. - HPI Chief Complaint Patient presents with Chest Pain Weakness - Generalized Post-op Problem HPI Patient is a 64-year-old with past medical history is significant for recent CABG on Eliquis presents emergency department for generalized weakness. Patient went to outside hospital on for constipation and received 2 enemas and lactulose with improvement of constipation and development of black tarry stools. Patient discharged from the emergency department and since has had generalized weakness. Missed his postop appointment today due to significant weakness. Denies chest pain or shortnessof breath. No hematemesis. Has not had bloody stools since 3 days ago. Patient has never had a colonoscopy. Patient History 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[1] Surgical History[2] Family History[3] Social History[4] Allergies: Allergies[5] Physical Exam ED Triage Vitals [03/25/25 0327] Temp Heart Rate Resp BP 36.8 ??C (98.3 ??F) 63 18 111/62 SpO2 Temp src Heart Rate Source Patient Position 97 % -- Monitor -- BP Location FiO2 (%) -- -- Physical Exam Vitals and nursing note reviewed. Constitutional: General: He is not in acute distress. HENT: Head: Normocephalic. Right Ear: External ear normal. Left Ear: External ear normal. Nose: Nose normal. Mouth/Throat: Mouth: Mucous membranes are moist. Eyes: Extraocular Movements: Extraocular movements intact. Conjunctiva/sclera: Conjunctivae normal. Cardiovascular: Rate and Rhythm: Normal rate and regular rhythm. Pulses: Normal pulses. Comments: Sternotomy Scar from CABG clean dry and intact Pulmonary: Effort: Pulmonary effort is normal. No respiratory distress. Abdominal: General: Abdomen is flat. There is no distension. Palpations: Abdomen is soft. Tenderness: There is no abdominal tenderness. There is no guarding. Genitourinary: Comments: Sacral decubitus wound with fistula track Musculoskeletal: General: No deformity. Cervical back: Normal range of motion. Skin: General: Skin is warm and dry. Capillary Refill: Capillary refill takes less than 2 seconds. Coloration: Skin is not jaundiced or pale. Neurological: General: No focal deficit present. Mental Status: He is alert and oriented to person, place, and time. [place] Coma Scale Score: 15 ED Course & MDM - Assessment: 64 y.o. male presents to ED with complaint of weakness. It should be noted that the chronic conditions includes coronary artery disease, which currently is not at goal therapy. This complicates the clinical picture because it Comorbidities: may be exacerbating symptoms Upon presentation patient is hemodynamically stable saturating appropriately on room air afebrile in no acute Distress. Outside hospital records independently reviewed significant for hemoglobin of 4.7 CTAs chest abdomen pelvis without active bleeding of the gastrointestinal tract. Patient received 2 units of PRBCs prior to being transferred. Differential Diagnosis: Malignancy ulcer coagulopathy varices In order to fully explore the differential diagnosis the following treatments and tests were ordered: ED Medication Administration from 03/25/2025 0104 to 03/25/2025517 Date/Time Order Dose Route Action 03/25/2025 0443 EDT morphine PF 4 mg 4 mg Intravenous Given All Other Orders Ordered Status Ordering Provider 03/25/25517 CBC Morning draw Acknowledged RAMEZ CORDOBA 03/25/25517 Basic metabolic panel Morning draw Acknowledged RAMEZ CORDOBA 03/25/25517 Vital Signs Every 4 hours Placed in And Linked Group Acknowledged RAMEZ CORDOBA 03/25/25517 Pulse Oximetry Every 4 hours Placed in And Linked Group Acknowledged RAMEZ CORDOBA 03/25/25 042 Troponin T, High Sensitivity, 2 Hour, Plasma PROCEDURE ONCE Ordered GRETCHEN HIDALGO 03/25/25517 Daily weights Daily Acknowledged RAMEZ CORDOBA 03/25/25517 Nutrition Consult Once Comments: malnutrition Provider: (Not yet assigned) Acknowledged RAMEZ CORDOBA 03/25/25517 Wound ostomy eval and treat Coccyx Other (Comments) (AOC) Once Comments: Gluteal wound, actively draining Acknowledged RAMEZ CORDOBA 03/25/25517 Sequential compression device Until discontinued Comments: SCDs must be in place and turned on EXCEPT when ACTIVELY ambulating. Acknowledged RAMEZ CORDOBA 03/25/25517 Do Not Give Nicotine Replacement Until discontinued Acknowledged RAMEZ CORDOBA 03/25/25517 Bladder scan - once Once Comments: Please check post void residual (PVR) by bladder scanner, document in the section of the flow chart, and call team if PVR is greater than 200 mL Acknowledged RAMEZ CORODBA 03/25/25517 Telemetry Monitoring for Other Indication, which must be specified via free response in the orders Until discontinued Acknowledged JIMENABEYA, RAMEZ N 03/25/25517 Fall precautions Until discontinued Acknowledged MADUJIBEYA, RAMEZ N 03/25/25517 Adjust HOB (specify) 30 degrees Once Acknowledged ADALID RAMEZ N 03/25/25517 Full code Continuous Acknowledged ADALID RAMEZ N 03/25/25517 NPO diet NPO except: Ice chips, Sips with meds, Sips of clear liquids Diet effective now Acknowledged ADALID RAMEZ N 03/25/25517 Admit to inpatient Once Acknowledged ADALID RAMEZ N 03/25/25517 Mobility Orders Until discontinued Acknowledged MADUALDABETAMANNA, RAMEZ N 03/25/25517 Notify physician (specify parameters) Until discontinued Acknowledged ADALID RAMEZ N 03/25/25517 Insert peripheral IV Once Placed in And Linked Group Acknowledged MADJACKSON RAMEZ N 03/25/25517 Saline lock IV Once Placed in And Linked Group Acknowledged MADUJIBETAMANNA RAMEZ N 03/25/25 0328 Vital Signs Every 2 hours Acknowledged GRETCHEN HIDALGO 03/25/25 0351 Consult to Hospital Medicine Once Specialty: Internal Medicine Provider: (Not yet assigned) Acknowledged ISSAC MANLEY 03/25/25 0335 Hepatic function panel Once Final result ISSAC MANLEY 03/25/25 0329 PT-INR STAT Final result GRETCHEN HIDALGO 03/25/25 032 Insert peripheral IV Once Acknowledged GRETCHEN HIDALGO 03/25/25 0328 ED / Procedure Cardiac Monitoring Until discontinued Acknowledged GRETCHEN HIDALGO 03/25/25 0328 Continuous Pulse Oximetry Until discontinued Acknowledged GRETCHEN HIDALGO 03/25/25 0328 Oxygen Therapy - Device: Nasal Cannula Continuous Order ID Start Status Ordering Provider [id number] 03/25/25 032 Completed GRETCHEN HIDALGO [id number] 03/25/25 0800 Acknowledged GRETCHEN HIDALGO [id number] 05/15/25 2000 Acknowledged GWEN, GRETCHEN B 03/26/25 0800 Scheduled GWEN, GRETCHEN B 03/26/251999 Scheduled GWEN, GRETCHEN B 03/27/25 0800 Scheduled GWEN, GRETCHEN B 03/27/251999 Scheduled GWEN, GRETCHEN B 03/28/25 0800 Scheduled GWEN, GRETCHEN B 03/28/251999 Scheduled GWEN, GRETCHEN B 03/29/25 0800 Scheduled GWEN, GRETCHEN B 03/29/251999 Scheduled GWEN, GRETCHEN B Acknowledged GWEN, GRETCHEN B 03/25/25 0328 ECG Adult Once Preliminary result GWEN, GRETCHEN B 03/25/25 0328 CBC with Diff STAT Final result GWEN, GRETCHEN B 03/25/25 0328 BMP STAT Final result GWEN, GRETCHEN B 03/25/25 0328 Troponin now and 120 min STAT Final result GWEN, GRETCHEN B 03/25/25 0328 Type and screen Once Final result GWEN, GRETCHEN B ED Course as of 03/25/25 0529 [place] March 25, 2025 0518 ECG Adult EKG personally interpreted by me in significant for ST depressions in V2 and V3 and t wave inversion V1 [SHARIF] 0519 Hemoglobin(!): 7.4 Stable hemoglobin [SHARIF] 0519 I had interactive conversation with Hospital Medicine with recommendations to admit to their service [SHARIF] ED Course User Index [SHARIF] Issac Manley MD Clinical Impressions as of 03/25/25 0529 Acute GI bleeding Severe anemia Generalized weakness Social Determinates of Health Risks (including Economic Stability, Education and level of understanding, Healthcare access and quality and concerning social factors): Social factors impacting patient's psychosocial well-being Ultimately, this patient was Was admitted (Admission) The primary encounter diagnosis was Acute GI bleeding. Diagnoses of Severe anemia and Generalized weakness were also pertinent to this visit.. Patient believed to require admission for the listed diagnoses. The Internal Medicine service was consulted for admission and was agreeable to admit to Acute Floor (Med/Surg). ED Prescriptions None Disposition Admit Admitting/Attending Physician: ILIANA CARPENTER [[id number]] Provider Care Team: SAY DEJESUS 16 [[id number]] Are they the primary team?: Yes [1] - Dejohn, Issac M, MD Resident 03/25/25 0520 Attending Attestation: I saw and evaluated the patient with the resident/fellow. I discussed the case with the resident/fellow and agree with the findings and plan as documented. [1] Past 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: Diagnosis Date Abnormal ECG BPH (benign prostatic hyperplasia) Cervical radiculopathy COPD (chronic obstructive pulmonary disease) ([facility]) Coronary artery disease GERD (gastroesophageal reflux disease) Heart valve disease Hypertension On mechanically assisted ventilation ([facility]) 02/21/2025 Intubated for procedure, arrived to ICU [...] use: Not Currently [5] No Known Allergies Gretchen Hidalgo MD 03/25/25 0529 * ED Triage Notes - Sylvia Leo - 03/25/2025 3:17 AM EDT Patient presents to the ED for evaluation of a post op complication. Patient reports that he had a CABG 02/22 here at . Yesterday 03/24 the patient was feeling generalized weakness, chest pain, and light headed. His sister took his BP and it was in the 70's systolic. He received 2 units of blood, nitroglycerin and ASA at the OSH and was sent for CT surgery. GCS is 15. documented in this encounter Plan of Treatment Upcoming Encounters Date Type Department Care Team (Late st Contact Info) Description 08/03/2025 12:40 PM EDT Office Visit [facility] [address] [place] [address] Dimitrios Wright MD [address] [place] [address] Pending Results Name Type Priority Associated Diagnoses Date /Time Prepare Leukocyte Reduced RBC: 1 Units Blood Bank Routine 03/29/2025 5:51 AM EDT Scheduled Referrals Name Type Priority Associated Diagnoses Order Schedule Ambulatory referral to External PCP Outpatient Referral Routine Upper GI bleeding 1 Occurrences starting 03/31/2025 until 10/01/2026 Discharge Ambulatory referral to Cardiology Outpatient Referral Routine Persistent atrial fibrillation (CMS/HCC) 1 Occurrences starting 03/31/2025 until 10/01/2026 Discharge Ambulatory referral to Gastroenterology Outpatient Referral Routine Duodenal ulcer 1 Occurrences starting 03/31/2025 until 10/01/2026 documented as of this encounter Goals Goal Patient Goal Type Associated Problems Recent Progress Patient-Stated? Author Autogenerat ed Goal Care Plan Autogenerated Problem No Mauro Moeller, RN documented as of this encounter Procedures Procedure Name Priority Date/Time Associated Diagnosis Comments CBC WITH AUTO DIFFERENTIAL Routine 03/31/2025 4:17 AM EDT MAGNESIUM, PLASMA Routine 03/31/2025 4:1 7 AM EDT COMPREHENSIVE METABOLIC PANEL, PLASMA Routine 03/31/2025 4:17 AM EDT OXYGEN THERAPY STAT 03/30/2025 8:00 AM EDT CBC WITH AUTO DIFFERENTIAL Routine 03/30/2025 4:52 AM EDT PHOSPHORUS, PLASMA Routine 03/30/2025 4: 52 AM EDT MAGNESIUM, PLASMA Routine 03/30/2025 4:5 2 AM EDT COMPREHENSIVE METABOLIC PANEL, PLASMA Routine 03/30/2025 4:52 AM EDT OXYGEN THERAPY STAT 03/29/2025 8:00 PM EDT TRANSFUSE RED BLOOD CELLS Routine 03/29/2025 10:21 AM EDT PREPARE RBC Routine 03/29/2025 8:37 AM EDT OXYGEN THERAPY STAT 03/29/2025 8:00 AM EDT TYPE AND SCREEN Routine 03/29/2025 6:05 AM EDT PREPARE RBC Routine 03/29/2025 5:51 AM EDT CBC WITH AUTO DIFFERENTIAL Routine 03/29/2025 3:21 AM EDT PHOSPHORUS, PLASMA Routine 03/29/2025 3: 21 AM EDT MAGNESIUM, PLASMA Routine 03/29/2025 3:2 1 AM EDT COMPREHENSIVE METABOLIC PANEL, PLASMA Routine 03/29/2025 3:21 AM EDT OXYGEN THERAPY STAT 03/28/2025 8:00 PM EDT OCCULT BLOOD, FECAL BY IMMUNOASSAY (SO) Routine 03/28/2025 4:18 PM EDT HELICOBACTER PYLORI ANTIGEN Routine 03/28/2025 4:18 PM EDT CBC W/O DIFFERENTIAL Routine 03/28/2025 12:15 PM EDT OXYGEN THERAPY STAT 03/28/2025 8:00 AM EDT CBC WITH AUTO DIFFERENTIAL Routine 03/28/2025 5:18 AM EDT PHOSPHORUS, PLASMA Routine 03/28/2025 5: 18 AM EDT MAGNESIUM, PLASMA Routine 03/28/2025 5:1 8 AM EDT COMPREHENSIVE METABOLIC PANEL, PLASMA Routine 03/28/2025 5:18 AM EDT HEMOGLOBIN AND HEMATOCRIT, BLOOD Timed 03/28/2025 12:32 AM EDT OXYGEN THERAPY STAT 03/27/2025 8:00 PM EDT HEMOGLOBIN AND HEMATOCRIT, BLOOD Timed 03/27/2025 6:11 PM EDT HEMOGLOBIN AND HEMATOCRIT, BLOOD Timed 03/27/2025 12:12 PM EDT OXYGEN THERAPY STAT 03/27/2025 8:00 AM EDT HEMOGLOBIN AND HEMATOCRIT, BLOOD Timed 03/27/2025 5:55 AM EDT CBC WITH AUTO DIFFERENTIAL Routine 03/27/2025 5:55 AM EDT PHOSPHORUS, PLASMA Routine 03/27/2025 5: 55 AM EDT MAGNESIUM, PLASMA Routine 03/27/2025 5:5 5 AM EDT COMPREHENSIVE METABOLIC PANEL, PLASMA Routine 03/27/2025 5:55 AM EDT HEMOGLOBIN AND HEMATOCRIT, BLOOD Timed 03/26/2025 11:39 PM EDT OXYGEN THERAPY STAT 03/26/2025 8:00 PM EDT HEMOGLOBIN AND HEMATOCRIT, BLOOD Timed 03/26/2025 5:52 PM EDT HEMOGLOBIN AND HEMATOCRIT, BLOOD Timed 03/26/2025 11:42 AM EDT OXYGEN THERAPY STAT 03/26/2025 8:00 AM EDT HEMOGLOBIN AND HEMATOCRIT, BLOOD Timed 03/26/2025 5:38 AM EDT HEMOGLOBIN AND HEMATOCRIT, BLOOD Timed 03/26/2025 12:17 AM EDT CBC W/O DIFFERENTIAL Routine 03/26/2025 12:17 AM EDT BASIC METABOLIC PANEL, PLASMA Routine 03/26/2025 12:17 AM EDT OXYGEN THERAPY STAT 03/25/2025 8:00 PM EDT HEMOGLOBIN AND HEMATOCRIT, BLOOD Timed 03/25/2025 6:17 PM EDT EGD Routine 03/25/2025 5:22 PM EDT Acute GI bleeding TRANSFUSE RED BLOOD CELLS Routine 03/25/2025 1:07 PM EDT PREPARE RBC Routine 03/25/2025 12:25 PM EDT HEMOGLOBIN AND HEMATOCRIT, BLOOD Timed 03/25/2025 11:46 AM EDT TROPONIN T, HIGH SENSITIVITY, 2 HOUR, PLASMA Timed 03/25/2025 8:28 AM EDT HEMOGLOBIN AND HEMATOCRIT, BLOOD Timed 03/25/2025 8:28 AM EDT OXYGEN THERAPY STAT 03/25/2025 8:00 AM EDT TROPONIN T, HIGH SENSITIVITY, 0 HOUR, PLASMA, REFLEX TO 2 HOUR STAT 03/25/2025 6:23 AM EDT LACTATE, VENOUS Routine 03/25/2025 6:23 AM EDT HAPTOGLOBIN, SERUM Routine 03/25/2025 6: 23 AM EDT WOUND OSTOMY EVAL AND TREAT Routine 03/25/2025 5:18 AM EDT IRON & TOTAL IRON BINDING CAPACITY, PLASMA (INCLUDES TRANSFERRIN) Add-On 03/25/2025 3:36 AM EDT C-REACTIVE PROTEIN, PLASMA Add-On 03/25/2025 3:36 AM EDT HEPATIC FUNCTION PANEL STAT 3:36 AM EDT ECG ADULT STAT 03/25/2025 3:31 AM EDT TROPONIN T, HIGH SENSITIVITY, 0 HOUR, PLASMA, REFLEX TO 2 HOUR STAT 03/25/2025 3:29 AM EDT PROCALCITONIN, PLASMA Add-On 03/25/2025 3:29 AM EDT N-TERMINAL PROBNP, PLASMA Add-On 03/25/2025 3:29 AM EDT PROTHROMBIN TIME(PT) / INR STAT 03/25/2025 3:29 AM EDT RETICULOCYTES, BLOOD Add-On 03/25/2025 3:29 AM EDT CBC WITH AUTO DIFFERENTIAL STAT 03/25/2025 3:29 AM EDT TYPE AND SCREEN STAT 03/25/2025 3:29 AM EDT LACTATE DEHYDROGENASE, PLASMA Add-On 03/25/2025 3:29 AM EDT BASIC METABOLIC PANEL, PLASMA STAT 03/25/2025 3:29 AM EDT OXYGEN THERAPY STAT 03/25/2025 3:28 AM EDT OXYGEN THERAPY STAT 03/25/2025 3:28 AM EDT OXYGEN THERAPY STAT 03/25/2025 3:28 AM EDT documented in this encounter Results * (ABNORMAL) Magnesium, Plasma (03/31/2025 4:17 AM EDT) Magnesium, Plasma 1.7(L) 1.9 - 2.4 mg/dL 03/31/2025 4:57 AM EDT [facility] Blood Venous blood specimen / Unknown Venipuncture / Unknown 03/31/2025 4:17 AM EDT 03/31/2025 4:27 AM EDT Yin Christopher MD LAB BLOOD ORDERABLES Fi nal Result [facility] [address] [place] [address] * (ABNORMAL) Comprehensive Metabolic Panel, Plasma (03/31/2025 4:17 AM EDT) Glucose, Plasma 125(H) 74 - 99 mg/dL 03/31/2025 4:57 AM EDT [facility] BUN, Plasma 28(H) 8 - 23 mg/dL 03/31/2025 4:57 AM EDT [facility] Creatinine, Plasma 0.72 0.70 - 1.20 mg/dL 03/31/2025 4:57 AM EDT [facility] BUN/Creatinine Ratio 39 03/31/2025 4:57 AM EDT [facility] Sodium, Plasma 136 136 - 145 mmol/L 03/31/2025 4:57 AM EDT [facility] Potassium, Plasma 4.1 3.6 - 4.9 mmol/L 03/31/2025 4:57 AM EDT [facility] Chloride, Plasma 106 97 - 107 mmol/L 03/31/2025 4:57 AM EDT [facility] CO2, Plasma 22 22 - 29 mmol/L 03/31/2025 4:57 AM EDT [facility] Anion Gap 8 6 - 16 mmol/L 03/31/2025 4:57 AM EDT [facility] Total Calcium, Plasma 8.1(L) 8.9 - 10.2 mg/dL 03/31/2025 4:57 AM EDT [facility] Total Protein 5.0(L) 6.3 - 7.9 g/dL 03/31/2025 4:57 AM EDT [facility] Albumin, Plasma 2.8(L) 3.5 - 5.2 g/dL 03/31/2025 4:57 AM EDT [facility] AST, Plasma 24 10 - 50 U/L 03/31/2025 4:57 AM EDT [facility] ALT, Plasma 14 10 - 50 U/L 03/31/2025 4:57 AM EDT [facility] Alkaline Phosphatase, Plasma 106 40 - 115 U/L 03/31/2025 4:57 AM EDT [facility] Total Bilirubin, Plasma 0.3 0.2 - 1.1 mg/dL 03/31/2025 4:57 AM EDT [facility] eGFRcr 100.8 mL/min/1.7 3m*2 03/31/2025 4:57 AM EDT [facility] Comment:Reported eGFRcr in m L/min/1.73m2 is based the CKD-EPI 2020 equation that does not use a race coefficient. Blood Venous blood specimen / Unknown Venipuncture / Unknown 03/31/2025 4:17 AM EDT 03/31/2025 4:27 AM EDT us Yin Christopher MD LAB BLOOD ORDERABLES Fi nal Result [facility] [address] [place] [address] * (ABNORMAL) CBC and Differential (03/31/2025 4:17 AM EDT) WBC Count 5.55 3.70 - 10.30 10*3/uL LAB HEMATOLOGY METHOD 03/31/2025 4:41 AM EDT [facility] RBC Count 2.57(L) 4.60 - 6.10 10*6/uL LAB HEMATOLOGY METHOD 03/31/2025 4:41 AM EDT [facility] HGB 7.6(L) 13.7 - 17.5 g/dL LAB HEMATOLOGY METHOD 03/31/2025 4:41 AM EDT [facility] HCT 24.7(L) 40.0 - 51.0 % LAB HEMATOLOGY METHOD 03/31/2025 4:41 AM EDT [facility] Platelet Count 218 155 - 369 10*3/uL LAB HEMATOLOGY METHOD 03/31/2025 4:41 AM EDT [facility] MCV 96 79 - 98 fL LAB HEMATOLOGY METHOD 03/31/2025 4:41 AM EDT [facility] MCH 29.6 26.0 - 32.0 pg LAB HEMATOLOGY METHOD 03/31/2025 4:41 AM EDT [facility] MCHC 30.8 30.7 - 35.5 g/dL LAB HEMATOLOGY METHOD 03/31/2025 4:41 AM EDT [facility] RDW 19.1(H) 11.5 - 14.5 % LAB HEMATOLOGY METHOD 03/31/2025 4:41 AM EDT [facility] MPV 10.4 8.8 - 12.5 fL LAB HEMATOLOGY METHOD 03/31/2025 4:41 AM EDT [facility] nRBC 0.0 <=0.0 per 100 WBCs LAB HEMATOLOGY METHOD 03/31/2025 4:41 AM EDT [facility] Differential Type Automated LAB HEMATOLOGY METHOD 03/31/2025 4:41 AM EDT [facility] Neutrophils % 43 % LAB HEMATOLOGY METHOD 03/31/2025 4:41 AM EDT [facility] Lymphocytes % 46 % LAB HEMATOLOGY METHOD 03/31/2025 4:41 AM EDT [facility] Monocytes % 6 % LAB HEMATOLOGY METHOD 03/31/2025 4:41 AM EDT [facility] Eosinophils % 3 % LAB HEMATOLOGY METHOD 03/31/2025 4:41 AM EDT [facility] Basophils % 1 % LAB HEMATOLOGY METHOD 03/31/2025 4:41 AM EDT [facility] Immature Granulocytes % 1 % LAB HEMATOLOGY METHOD 03/31/2025 4:41 AM EDT [facility] Neutrophils Absolute 2.41 1.60 - 6.10 10*3/uL LAB HEMATOLOGY METHOD 03/31/2025 4:41 AM EDT [facility] Lymphocytes Absolute 2.53 1.20 - 3.90 10*3/uL LAB HEMATOLOGY METHOD 03/31/2025 4:41 AM EDT [facility] Monocytes Absolute 0.33 0.30 - 0.90 10*3/uL LAB HEMATOLOGY METHOD 03/31/2025 4:41 AM EDT [facility] Eosinophils Absolute 0.17 0.00 - 0.50 10*3/uL LAB HEMATOLOGY METHOD 03/31/2025 4:41 AM EDT [facility] Basophils Absolute 0.05 0.00 - 0.10 10*3/uL LAB HEMATOLOGY METHOD 03/31/2025 4:41 AM EDT [facility] Immature Granulocytes Absolute 0.06 0.00 - 0.06 10*3/uL LAB HEMATOLOGY METHOD 03/31/2025 4:41 AM EDT [facility] Blood Venous blood specimen / Unknown Venipuncture / Unknown 03/31/2025 4:17 AM EDT 03/31/2025 4:29 AM EDT Narrative [facility] - 03/31/2025 4:41 AM EDT Therapeutic decision making should be based on absolute values, rather than percentages. Yin Christopher MD LAB BLOOD ORDERABLES Fi nal Result [facility] [address] [place] [address] * (ABNORMAL) CBC and Differential (03/30/2025 4:52 AM EDT) WBC Count 5.70 3.70 - 10.30 10*3/uL LAB HEMATOLOGY METHOD 03/30/2025 5:29 AM EDT [facility] RBC Count 2.69(L) 4.60 - 6.10 10*6/uL LAB HEMATOLOGY METHOD 03/30/2025 5:29 AM EDT [facility] HGB 7.8(L) 13.7 - 17.5 g/dL LAB HEMATOLOGY METHOD 03/30/2025 5:29 AM EDT [facility] HCT 25.7(L) 40.0 - 51.0 % LAB HEMATOLOGY METHOD 03/30/2025 5:29 AM EDT [facility] Platelet Count 199 155 - 369 10*3/uL LAB HEMATOLOGY METHOD 03/30/2025 5:29 AM EDT [facility] MCV 96 79 - 98 fL LAB HEMATOLOGY METHOD 03/30/2025 5:29 AM EDT [facility] MCH 29.0 26.0 - 32.0 pg LAB HEMATOLOGY METHOD 03/30/2025 5:29 AM EDT [facility] MCHC 30.4(L) 30.7 - 35.5 g/dL LAB HEMATOLOGY METHOD 03/30/2025 5:29 AM EDT [facility] RDW 19.3(H) 11.5 - 14.5 % LAB HEMATOLOGY METHOD 03/30/2025 5:29 AM EDT [facility] MPV 10.5 8.8 - 12.5 fL LAB HEMATOLOGY METHOD 03/30/2025 5:29 AM EDT [facility] nRBC 0.0 <=0.0 per 100 WBCs LAB HEMATOLOGY METHOD 03/30/2025 5:29 AM EDT [facility] Differential Type Automated LAB HEMATOLOGY METHOD 03/30/2025 5:29 AM EDT [facility] Neutrophils % 43 % LAB HEMATOLOGY METHOD 03/30/2025 5:29 AM EDT [facility] Lymphocytes % 43 % LAB HEMATOLOGY METHOD 03/30/2025 5:29 AM EDT [facility] Monocytes % 8 % LAB HEMATOLOGY METHOD 03/30/2025 5:29 AM EDT [facility] Eosinophils % 3 % LAB HEMATOLOGY METHOD 03/30/2025 5:29 AM EDT [facility] Basophils % 1 % LAB HEMATOLOGY METHOD 03/30/2025 5:29 AM EDT [facility] Immature Granulocytes % 2 % LAB HEMATOLOGY METHOD 03/30/2025 5:29 AM EDT [facility] Neutrophils Absolute 2.47 1.60 - 6.10 10*3/uL LAB HEMATOLOGY METHOD 03/30/2025 5:29 AM EDT [facility] Lymphocytes Absolute 2.47 1.20 - 3.90 10*3/uL LAB HEMATOLOGY METHOD 03/30/2025 5:29 AM EDT [facility] Monocytes Absolute 0.47 0.30 - 0.90 10*3/uL LAB HEMATOLOGY METHOD 03/30/2025 5:29 AM EDT [facility] Eosinophils Absolute 0.15 0.00 - 0.50 10*3/uL LAB HEMATOLOGY METHOD 03/30/2025 5:29 AM EDT [facility] Basophils Absolute 0.04 0.00 - 0.10 10*3/uL LAB HEMATOLOGY METHOD 03/30/2025 5:29 AM EDT [facility] Immature Granulocytes Absolute 0.10(H) 0.00 - 0.06 10*3/uL LAB HEMATOLOGY METHOD 03/30/2025 5:29 AM EDT [facility] Blood Venous blood specimen / Unknown Venipuncture / Unknown 03/30/2025 4:52 AM EDT 03/30/2025 5:06 AM EDT [facility] - 03/30/2025 5:29 AM EDT Therapeutic decision making should be based on absolute values, rather than percentages. Yin Christopher MD LAB BLOOD ORDERABLES Fi nal Result [facility] [address] [place] [address] * (ABNORMAL) Comprehensive Metabolic Panel, Plasma (03/30/2025 4:52 AM EDT) Glucose, Plasma 90 74 - 99 mg/dL 03/30/2025 5:36 AM EDT [facility] BUN, Plasma 28(H) 8 - 23 mg/dL 03/30/2025 5:36 AM EDT [facility] Creatinine, Plasma 0.70 0.70 - 1.20 mg/dL 03/30/2025 5:36 AM EDT [facility] BUN/Creatinine Ratio 40 03/30/2025 5:36 AM EDT [facility] Sodium, Plasma 136 136 - 145 mmol/L 03/30/2025 5:36 AM EDT [facility] Potassium, Plasma 4.3 3.6 - 4.9 mmol/L 03/30/2025 5:36 AM EDT [facility] Chloride, Plasma 105 97 - 107 mmol/L 03/30/2025 5:36 AM EDT [facility] CO2, Plasma 22 22 - 29 mmol/L 03/30/2025 5:36 AM EDT [facility] Anion Gap 9 6 - 16 mmol/L 03/30/2025 5:36 AM EDT [facility] Total Calcium, Plasma 8.1(L) 8.9 - 10.2 mg/dL 03/30/2025 5:36 AM EDT [facility] Total Protein 4.9(L) 6.3 - 7.9 g/dL 03/30/2025 5:36 AM EDT [facility] Albumin, Plasma 2.5(L) 3.5 - 5.2 g/dL 03/30/2025 5:36 AM EDT [facility] AST, Plasma 22 10 - 50 U/L 03/30/2025 5:36 AM EDT [facility] ALT, Plasma 13 10 - 50 U/L 03/30/2025 5:36 AM EDT [facility] Alkaline Phosphatase, Plasma 83 40 - 115 U/L 03/30/2025 5:36 AM EDT [facility] Total Bilirubin, Plasma 0.5 0.2 - 1.1 mg/dL 03/30/2025 5:36 AM EDT [facility] eGFRcr 101.6 mL/min/1.7 3m*2 03/30/2025 5:36 AM EDT [facility] Comment:Reported eGFRcr in m L/min/1.73m2 is based the CKD-EPI 2020 equation that does not use a race coefficient. Blood Venous blood specimen / Unknown Venipuncture / Unknown 03/30/2025 4:52 AM EDT 03/30/2025 5:04 AM EDT Yin Christopher MD LAB BLOOD ORDERABLES Fi nal Result Performing Organization Address City/[facility]/ZIP Co de Phone Number [facility] [address] [place] [address] * (ABNORMAL) Magnesium, Plasma (03/30/2025 4:52 AM EDT) Magnesium, Plasma 1.8(L) 1.9 - 2.4 mg/dL 03/30/2025 5:36 AM EDT [facility] Blood Venous blood specimen / Unknown Venipuncture / Unknown 03/30/2025 4:52 AM EDT 03/30/2025 5:04 AM EDT Yin Christopher MD LAB BLOOD ORDERABLES Fi nal Result [facility] [address] [place] [address] * Phosphorus, Plasma (03/30/2025 4:52 AM EDT) Phosphorus, Plasma 3.3 2.5 - 4.5 mg/dL 03/30/2025 5:36 AM EDT [facility] Blood Venous blood specimen / Unknown Venipuncture / Unknown 03/30/2025 4:52 AM EDT 03/30/2025 5:04 AM EDT Yin Christopher MD LAB BLOOD ORDERABLES Fi nal Result Performing Organization Address City/[facility]/ZIP Co de Phone Number [facility] [address] [place] [address] * Transfuse RBC (03/29/2025 12:59 PM EDT) Yin Christopher MD BLOOD TRANSFUSION ORDER CASTILLO Final Result * Transfuse RBC: 1 Units (03/29/2025 12:59 PM EDT) Yin Christopher MD BLOOD TRANSFUSION ORDER CASTILLO Final Result * Prepare Leukocyte Reduced RBC: 1 Units (03/29/2025 8:37 AM EDT) Product Code [id number] CH BLOO D BANK Dispense Status Transfused BLOOD BANK Blood Expiration Date [id number] BLOOD BANK Unit Number [id number] CH B LOOD BANK Product Blood Type 5100 BLOOD BANK Blood Type O+ BLOOD BANK Crossmatch Compatible BLOOD BANK Other Yin Christopher MD BLOOD BANK PRODUCT ORDE RABLES Final Result Performing Organization Address [facility] Co de Phone Number BLOOD BANK [address] [place] [address], * Type and screen (03/29/2025 6:05 AM EDT) ABO/Rh O Positive 03/29/2025 5:51 AM EDT BLOOD BANK Antibody Screen Negative 03/29/2025 5:51 AM EDT BLOOD BANK Specimen Expiration 04/01/2025 23:59 03/29/2025 5:51 AM EDT BLOOD BANK Blood Venous blood specimen / Unknown Venipuncture / Unknown 03/29/2025 6:05 AM EDT 03/29/2025 6:16 AM EDT us Tete Farfan DO LAB BLOOD BANK TEST ORDERA BLES Final Result BLOOD BANK [address] [place] [address], * (ABNORMAL) CBC and Differential (03/29/2025 3:21 AM EDT) WBC Count 5.89 3.70 - 10.30 10*3/uL LAB HEMATOLOGY METHOD 03/29/2025 4:15 AM EDT [facility] RBC Count 2.22(L) 4.60 - 6.10 10*6/uL LAB HEMATOLOGY METHOD 03/29/2025 4:15 AM EDT [facility] HGB 6.5(L) 13.7 - 17.5 g/dL LAB HEMATOLOGY METHOD 03/29/2025 4:15 AM EDT [facility] HCT 21.5(L) 40.0 - 51.0 % LAB HEMATOLOGY METHOD 03/29/2025 4:15 AM EDT [facility] Platelet Count 197 155 - 369 10*3/uL LAB HEMATOLOGY METHOD 03/29/2025 4:15 AM EDT [facility] MCV 97 79 - 98 fL LAB HEMATOLOGY METHOD 03/29/2025 4:15 AM EDT [facility] MCH 29.3 26.0 - 32.0 pg LAB HEMATOLOGY METHOD 03/29/2025 4:15 AM EDT [facility] MCHC 30.2(L) 30.7 - 35.5 g/dL LAB HEMATOLOGY METHOD 03/29/2025 4:15 AM EDT [facility] RDW 20.8(H) 11.5 - 14.5 % LAB HEMATOLOGY METHOD 03/29/2025 4:15 AM EDT [facility] MPV 10.9 8.8 - 12.5 fL LAB HEMATOLOGY METHOD 03/29/2025 4:15 AM EDT [facility] nRBC 0.0 <=0.0 per 100 WBCs LAB HEMATOLOGY METHOD 03/29/2025 4:15 AM EDT [facility] Differential Type Automated LAB HEMATOLOGY METHOD 03/29/2025 4:15 AM EDT [facility] Neutrophils % 48 % LAB HEMATOLOGY METHOD 03/29/2025 4:15 AM EDT [facility] Lymphocytes % 40 % LAB HEMATOLOGY METHOD 03/29/2025 4:15 AM EDT [facility] Monocytes % 8 % LAB HEMATOLOGY METHOD 03/29/2025 4:15 AM EDT [facility] Eosinophils % 2 % LAB HEMATOLOGY METHOD 03/29/2025 4:15 AM EDT [facility] Basophils % 1 % LAB HEMATOLOGY METHOD 03/29/2025 4:15 AM EDT [facility] Immature Granulocytes % 1 % LAB HEMATOLOGY METHOD 03/29/2025 4:15 AM EDT [facility] Neutrophils Absolute 2.82 1.60 - 6.10 10*3/uL LAB HEMATOLOGY METHOD 03/29/2025 4:15 AM EDT [facility] Lymphocytes Absolute 2.36 1.20 - 3.90 10*3/uL LAB HEMATOLOGY METHOD 03/29/2025 4:15 AM EDT [facility] Monocytes Absolute 0.49 0.30 - 0.90 10*3/uL LAB HEMATOLOGY METHOD 03/29/2025 4:15 AM EDT [facility] Eosinophils Absolute 0.14 0.00 - 0.50 10*3/uL LAB HEMATOLOGY METHOD 03/29/2025 4:15 AM EDT [facility] Basophils Absolute 0.03 0.00 - 0.10 10*3/uL LAB HEMATOLOGY METHOD 03/29/2025 4:15 AM EDT [facility] Immature Granulocytes Absolute 0.05 0.00 - 0.06 10*3/uL LAB HEMATOLOGY METHOD 03/29/2025 4:15 AM EDT [facility] Blood Venous blood specimen / Unknown Venipuncture / Unknown 03/29/2025 3:21 AM EDT 03/29/2025 4:03 AM EDT [facility] LAB - 03/29/2025 4:15 AM EDT Therapeutic decision making should be based on absolute values, rather than percentages. us Yin Christopher MD LAB BLOOD ORDERABLES Fi nal Result [facility] [address] [place] [address] * (ABNORMAL) Comprehensive Metabolic Panel, Plasma (03/29/2025 3:21 AM EDT) Glucose, Plasma 112(H) 74 - 99 mg/dL 03/29/2025 4:34 AM EDT [facility] BUN, Plasma 34(H) 8 - 23 mg/dL 03/29/2025 4:34 AM EDT [facility] Creatinine, Plasma 0.75 0.70 - 1.20 mg/dL 03/29/2025 4:34 AM EDT [facility] BUN/Creatinine Ratio 45 03/29/2025 4:34 AM EDT [facility] Sodium, Plasma 135(L) 136 - 145 mmol/L 03/29/2025 4:34 AM EDT [facility] Potassium, Plasma 4.3 3.6 - 4.9 mmol/L 03/29/2025 4:34 AM EDT [facility] Chloride, Plasma 104 97 - 107 mmol/L 03/29/2025 4:34 AM EDT [facility] CO2, Plasma 22 22 - 29 mmol/L 03/29/2025 4:34 AM EDT [facility] Anion Gap 9 6 - 16 mmol/L 03/29/2025 4:34 AM EDT [facility] Total Calcium, Plasma 7.8(L) 8.9 - 10.2 mg/dL 03/29/2025 4:34 AM EDT [facility] Total Protein 4.8(L) 6.3 - 7.9 g/dL 03/29/2025 4:34 AM EDT [facility] Albumin, Plasma 2.6(L) 3.5 - 5.2 g/dL 03/29/2025 4:34 AM EDT [facility] AST, Plasma 28 10 - 50 U/L 03/29/2025 4:34 AM EDT [facility] Comment:Hemolyzed, result ma y be falsely increased. ALT, Plasma 14 10 - 50 U/L 03/29/2025 4:34 AM EDT [facility] Alkaline Phosphatase, Plasma 77 40 - 115 U/L 03/29/2025 4:34 AM EDT [facility] Total Bilirubin, Plasma 0.4 0.2 - 1.1 mg/dL 03/29/2025 4:34 AM EDT [facility] eGFRcr 99.5 mL/min/1.7 3m*2 03/29/2025 4:34 AM EDT [facility] Comment:Reported eGFRcr in m L/min/1.73m2 is based the CKD-EPI 2020 equation that does not use a race coefficient. Blood Venous blood specimen / Unknown Venipuncture / Unknown 03/29/2025 3:21 AM EDT 03/29/2025 4:03 AM EDT us Yin Christopher MD LAB BLOOD ORDERABLES Fi nal Result Performing Organization Address City/[facility] Co de Phone Number [facility] [address] [place] [address] * Magnesium, Plasma (03/29/2025 3:21 AM EDT) Magnesium, Plasma 2.1 1.9 - 2.4 mg/dL 03/29/2025 4:34 AM EDT [facility] Blood Venous blood specimen / Unknown Venipuncture / Unknown 03/29/2025 3:21 AM EDT 03/29/2025 4:03 AM EDT us Yin Christopher MD LAB BLOOD ORDERABLES Fi nal Result [facility] [address] [place] [address] * Phosphorus, Plasma (03/29/2025 3:21 AM EDT) Phosphorus, Plasma 2.9 2.5 - 4.5 mg/dL 03/29/2025 4:34 AM EDT [facility] Blood Venous blood specimen / Unknown Venipuncture / Unknown 03/29/2025 3:21 AM EDT 03/29/2025 4:03 AM EDT us Yin Christopher MD LAB BLOOD ORDERABLES Fi nal Result Performing Organization Address City/[facility]/ZIP Co de Phone Number [facility] [address] [place] [address] * Helicobacter pylori Antigen (03/28/2025 4:18 PM EDT) Helicobacter pylori Antigen Result Negative Negative 03/28/2025 5:39 PM EDT [facility] Stool Rectum structure / Unknown Non-blood Collection / Unknown 03/28/2025 4:18 PM EDT 03/28/2025 4:33 PM EDT iYn Christopher MD LAB MICROBIOLOGY - GENE RAL ORDERABLES Final Result Performing Organization Address [facility] Co de Phone Number [facility] [address] [place] [address] * (ABNORMAL) Occult Blood, Fecal by Immunoassay (SO) (03/28/2025 4:18 PM EDT) Occult Blood, Fecal Immunosay Interpretation Positive( A) 03/31/2025 10:15 AM EDT [facility] ([email or web address]) Stool Non-blood Collection / Unknown 03/28/2025 4:18 PM EDT 03/28/2025 4:27 PM EDT Narrative [facility] ([facility]) - 03/31/2025 10:15 AM EDT INTERPRETIVE INFORMATION: Fecal Occult Blood by Immunoassay No single cutoff provides superior colorectal cancer detection rates. The test director of rehabilitation recommends the use of a 100 ng/mL cutoff that produces a specificity of approximately 95 percent for the detection of lower gastrointestinal bleeding. This test does not detect upper gastrointestinal bleeding. Performed By: [facility] [address] [place] [id number] Behavioral Specialist: Wilfrid Carr MD, PhD CLIA Number: [id number] us Ramez Cordoba APRN, DNP LAB REF LAB BLOOD AND FLUID ORD Final Result Performing Organization Address City/[facility]/ZIP Co de Phone Number [facility] ([email or web address]) [address] [place] [phone] * (ABNORMAL) CBC W/O Differential (03/28/2025 12:15 PM EDT) WBC Count 6.21 3.70 - 10.30 10*3/uL LAB HEMATOLOGY METHOD 03/28/2025 12:29 PM EDT [facility] RBC Count 2.38(L) 4.60 - 6.10 10*6/uL LAB HEMATOLOGY METHOD 03/28/2025 12:29 PM EDT [facility] HGB 7.0(L) 13.7 - 17.5 g/dL LAB HEMATOLOGY METHOD 03/28/2025 12:29 PM EDT [facility] HCT 22.6(L) 40.0 - 51.0 % LAB HEMATOLOGY METHOD 03/28/2025 12:29 PM EDT [facility] Platelet Count 215 155 - 369 10*3/uL LAB HEMATOLOGY METHOD 03/28/2025 12:29 PM EDT [facility] MCV 95 79 - 98 fL LAB HEMATOLOGY METHOD 03/28/2025 12:29 PM EDT [facility] MCH 29.4 26.0 - 32.0 pg LAB HEMATOLOGY METHOD 03/28/2025 12:29 PM EDT [facility] MCHC 31.0 30.7 - 35.5 g/dL LAB HEMATOLOGY METHOD 03/28/2025 12:29 PM EDT [facility] RDW 21.1(H) 11.5 - 14.5 % LAB HEMATOLOGY METHOD 03/28/2025 12:29 PM EDT [facility] MPV 10.3 8.8 - 12.5 fL LAB HEMATOLOGY METHOD 03/28/2025 12:29 PM EDT [facility] nRBC 0.0 <=0.0 per 100 WBCs LAB HEMATOLOGY METHOD 03/28/2025 12:29 PM EDT [facility] Blood Venous blood specimen / Unknown Venipuncture / Unknown 03/28/2025 12:15 PM EDT 03/28/2025 12:22 PM EDT us iYn Christopher MD LAB BLOOD ORDERABLES Fi nal Result [facility] [address] [place] [address] * (ABNORMAL) CBC and Differential (03/28/2025 5:18 AM EDT) WBC Count 4.69 3.70 - 10.30 10*3/uL LAB HEMATOLOGY METHOD 03/28/2025 5:50 AM EDT [facility] RBC Count 2.41(L) 4.60 - 6.10 10*6/uL LAB HEMATOLOGY METHOD 03/28/2025 5:50 AM EDT [facility] HGB 7.0(L) 13.7 - 17.5 g/dL LAB HEMATOLOGY METHOD 03/28/2025 5:50 AM EDT [facility] HCT 23.1(L) 40.0 - 51.0 % LAB HEMATOLOGY METHOD 03/28/2025 5:50 AM EDT [facility] Platelet Count 209 155 - 369 10*3/uL LAB HEMATOLOGY METHOD 03/28/2025 5:50 AM EDT [facility] MCV 96 79 - 98 fL LAB HEMATOLOGY METHOD 03/28/2025 5:50 AM EDT [facility] MCH 29.0 26.0 - 32.0 pg LAB HEMATOLOGY METHOD 03/28/2025 5:50 AM EDT [facility] MCHC 30.3(L) 30.7 - 35.5 g/dL LAB HEMATOLOGY METHOD 03/28/2025 5:50 AM EDT [facility] RDW 20.9(H) 11.5 - 14.5 % LAB HEMATOLOGY METHOD 03/28/2025 5:50 AM EDT [facility] MPV 10.2 8.8 - 12.5 fL LAB HEMATOLOGY METHOD 03/28/2025 5:50 AM EDT [facility] nRBC 0.0 <=0.0 per 100 WBCs LAB HEMATOLOGY METHOD 03/28/2025 5:50 AM EDT [facility] Differential Type Automated LAB HEMATOLOGY METHOD 03/28/2025 5:50 AM EDT [facility] Neutrophils % 51 % LAB HEMATOLOGY METHOD 03/28/2025 5:50 AM EDT [facility] Lymphocytes % 38 % LAB HEMATOLOGY METHOD 03/28/2025 5:50 AM EDT [facility] Monocytes % 6 % LAB HEMATOLOGY METHOD 03/28/2025 5:50 AM EDT [facility] Eosinophils % 3 % LAB HEMATOLOGY METHOD 03/28/2025 5:50 AM EDT [facility] Basophils % 1 % LAB HEMATOLOGY METHOD 03/28/2025 5:50 AM EDT [facility] Immature Granulocytes % 1 % LAB HEMATOLOGY METHOD 03/28/2025 5:50 AM EDT [facility] Neutrophils Absolute 2.41 1.60 - 6.10 10*3/uL LAB HEMATOLOGY METHOD 03/28/2025 5:50 AM EDT [facility] Lymphocytes Absolute 1.79 1.20 - 3.90 10*3/uL LAB HEMATOLOGY METHOD 03/28/2025 5:50 AM EDT [facility] Monocytes Absolute 0.30 0.30 - 0.90 10*3/uL LAB HEMATOLOGY METHOD 03/28/2025 5:50 AM EDT [facility] Eosinophils Absolute 0.12 0.00 - 0.50 10*3/uL LAB HEMATOLOGY METHOD 03/28/2025 5:50 AM EDT [facility] Basophils Absolute 0.03 0.00 - 0.10 10*3/uL LAB HEMATOLOGY METHOD 03/28/2025 5:50 AM EDT [facility] Immature Granulocytes Absolute 0.04 0.00 - 0.06 10*3/uL LAB HEMATOLOGY METHOD 03/28/2025 5:50 AM EDT [facility] Blood Venous blood specimen / Unknown Venipuncture / Unknown 03/28/2025 5:18 AM EDT 03/28/2025 5:39 AM EDT Narrative [facility] - 03/28/2025 5:50 AM EDT Therapeutic decision making should be based on absolute values, rather than percentages. us Yin Christopher MD LAB BLOOD ORDERABLES Fi nal Result [facility] [address] [place] [address] * (ABNORMAL) Comprehensive Metabolic Panel, Plasma (03/28/2025 5:18 AM EDT) [facility] Signature Glucose, Plasma 115(H) 74 - 99 mg/dL 03/28/2025 6:12 AM EDT [facility] BUN, Plasma 28(H) 8 - 23 mg/dL 03/28/2025 6:12 AM EDT [facility] Creatinine, Plasma 0.72 0.70 - 1.20 mg/dL 03/28/2025 6:12 AM EDT [facility] BUN/Creatinine Ratio 39 03/28/2025 6:12 AM EDT [facility] Sodium, Plasma 136 136 - 145 mmol/L 03/28/2025 6:12 AM EDT [facility] Potassium, Plasma 4.1 3.6 - 4.9 mmol/L 03/28/2025 6:12 AM EDT [facility] Chloride, Plasma 105 97 - 107 mmol/L 03/28/2025 6:12 AM EDT [facility] CO2, Plasma 22 22 - 29 mmol/L 03/28/2025 6:12 AM EDT [facility] Anion Gap 9 6 - 16 mmol/L 03/28/2025 6:12 AM EDT [facility] Total Calcium, Plasma 8.0(L) 8.9 - 10.2 mg/dL 03/28/2025 6:12 AM EDT [facility] Total Protein 5.0(L) 6.3 - 7.9 g/dL 03/28/2025 6:12 AM EDT [facility] Albumin, Plasma 2.6(L) 3.5 - 5.2 g/dL 03/28/2025 6:12 AM EDT [facility] AST, Plasma 21 10 - 50 U/L 03/28/2025 6:12 AM EDT [facility] ALT, Plasma 15 10 - 50 U/L 03/28/2025 6:12 AM EDT [facility] Alkaline Phosphatase, Plasma 86 40 - 115 U/L 03/28/2025 6:12 AM EDT [facility] Total Bilirubin, Plasma 0.5 0.2 - 1.1 mg/dL 03/28/2025 6:12 AM EDT [facility] eGFRcr 100.8 mL/min/1.7 3m*2 03/28/2025 6:12 AM EDT [facility] Comment:Reported eGFRcr in m L/min/1.73m2 is based the CKD-EPI 2020 equation that does not use a race coefficient. Blood Venous blood specimen / Unknown Venipuncture / Unknown 03/28/2025 5:18 AM EDT 03/28/2025 5:38 AM EDT us Yin Christopher MD LAB BLOOD ORDERABLES Fi nal Result [facility] [address] [place] [address] * Magnesium, Plasma (03/28/2025 5:18 AM EDT) Magnesium, Plasma 2.1 1.9 - 2.4 mg/dL 03/28/2025 6:12 AM EDT [facility] Blood Venous blood specimen / Unknown Venipuncture / Unknown 03/28/2025 5:18 AM EDT 03/28/2025 5:38 AM EDT Yin Christopher MD LAB BLOOD ORDERABLES Fi nal Result Performing Organization Address City/[facility]/[place] [address] * Phosphorus, Plasma (03/28/2025 5:18 AM EDT) Phosphorus, Plasma 2.9 2.5 - 4.5 mg/dL 03/28/2025 6:12 AM EDT [facility] Blood Venous blood specimen / Unknown Venipuncture / Unknown 03/28/2025 5:18 AM EDT 03/28/2025 5:38 AM EDT us Yin Christopher MD LAB BLOOD ORDERABLES Fi nal Result Performing Organization Address City/[facility]/[place] [address] * (ABNORMAL) Hemoglobin and Hematocrit, Blood (03/28/2025 12:32 AM EDT) HGB 7.1(L) 13.7 - 17.5 g/dL LAB HEMATOLOGY METHOD 03/28/2025 1:01 AM EDT [facility] HCT 22.7(L) 40.0 - 51.0 % LAB HEMATOLOGY METHOD 03/28/2025 1:01 AM EDT [facility] Blood Venous blood specimen / Unknown Venipuncture / Unknown 03/28/2025 12:32 AM EDT 03/28/2025 12:45 AM EDT us Ramezgucci Cordoba APRN, JESSE LAB BLOOD ORDERAB LES Final Result Performing Organization Address City/[facility]/ZIP Co de Phone Number [facility] [address] [place] [address] * (ABNORMAL) Hemoglobin and Hematocrit, Blood (03/27/2025 6:11 PM EDT) HGB 7.5(L) 13.7 - 17.5 g/dL LAB HEMATOLOGY METHOD 03/27/2025 6:27 PM EDT [facility] HCT 23.6(L) 40.0 - 51.0 % LAB HEMATOLOGY METHOD 03/27/2025 6:27 PM EDT [facility] Blood Venous blood specimen / Unknown Venipuncture / Unknown 03/27/2025 6:11 PM EDT 03/27/2025 6:19 PM EDT us Ramezgucci Cordoba APRN, JESSE LAB BLOOD ORDERAB LES Final Result [facility] [address] [place] [address] * (ABNORMAL) Hemoglobin and Hematocrit, Blood (03/27/2025 12:12 PM EDT) HGB 7.4(L) 13.7 - 17.5 g/dL LAB HEMATOLOGY METHOD 03/27/2025 12:28 PM EDT [facility] HCT 24.2(L) 40.0 - 51.0 % LAB HEMATOLOGY METHOD 03/27/2025 12:28 PM EDT [facility] Blood Venous blood specimen / Unknown Venipuncture / Unknown 03/27/2025 12:12 PM EDT 03/27/2025 12:21 PM EDT us Ramezgucci Meadelsiealdageorgetamanna HOLIDAY DETECTOR OPERATOR, DNP LAB BLOOD ORDERAB LES Final Result [facility] [address] [place] [address] * (ABNORMAL) CBC and Differential (03/27/2025 5:55 AM EDT) WBC Count 4.84 3.70 - 10.30 10*3/uL LAB HEMATOLOGY METHOD 03/27/2025 6:32 AM EDT [facility] RBC Count 2.53(L) 4.60 - 6.10 10*6/uL LAB HEMATOLOGY METHOD 03/27/2025 6:32 AM EDT [facility] HGB 7.5(L) 13.7 - 17.5 g/dL LAB HEMATOLOGY METHOD 03/27/2025 6:32 AM EDT [facility] HCT 23.7(L) 40.0 - 51.0 % LAB HEMATOLOGY METHOD 03/27/2025 6:32 AM EDT [facility] Platelet Count 206 155 - 369 10*3/uL LAB HEMATOLOGY METHOD 03/27/2025 6:32 AM EDT [facility] MCV 94 79 - 98 fL LAB HEMATOLOGY METHOD 03/27/2025 6:32 AM EDT [facility] MCH 29.6 26.0 - 32.0 pg LAB HEMATOLOGY METHOD 03/27/2025 6:32 AM EDT [facility] MCHC 31.6 30.7 - 35.5 g/dL LAB HEMATOLOGY METHOD 03/27/2025 6:32 AM EDT [facility] RDW 21.2(H) 11.5 - 14.5 % LAB HEMATOLOGY METHOD 03/27/2025 6:32 AM EDT [facility] MPV 10.1 8.8 - 12.5 fL LAB HEMATOLOGY METHOD 03/27/2025 6:32 AM EDT [facility] nRBC 0.0 <=0.0 per 100 WBCs LAB HEMATOLOGY METHOD 03/27/2025 6:32 AM EDT [facility] Differential Type Automated LAB HEMATOLOGY METHOD 03/27/2025 6:32 AM EDT [facility] Neutrophils % 47 % LAB HEMATOLOGY METHOD 03/27/2025 6:32 AM EDT [facility] Lymphocytes % 40 % LAB HEMATOLOGY METHOD 03/27/2025 6:32 AM EDT [facility] Monocytes % 8 % LAB HEMATOLOGY METHOD 03/27/2025 6:32 AM EDT [facility] Eosinophils % 3 % LAB HEMATOLOGY METHOD 03/27/2025 6:32 AM EDT [facility] Basophils % 1 % LAB HEMATOLOGY METHOD 03/27/2025 6:32 AM EDT [facility] Immature Granulocytes % 1 % LAB HEMATOLOGY METHOD 03/27/2025 6:32 AM EDT [facility] Neutrophils Absolute 2.26 1.60 - 6.10 10*3/uL LAB HEMATOLOGY METHOD 03/27/2025 6:32 AM EDT [facility] Lymphocytes Absolute 1.94 1.20 - 3.90 10*3/uL LAB HEMATOLOGY METHOD 03/27/2025 6:32 AM EDT [facility] Monocytes Absolute 0.39 0.30 - 0.90 10*3/uL LAB HEMATOLOGY METHOD 03/27/2025 6:32 AM EDT [facility] Eosinophils Absolute 0.14 0.00 - 0.50 10*3/uL LAB HEMATOLOGY METHOD 03/27/2025 6:32 AM EDT [facility] Basophils Absolute 0.04 0.00 - 0.10 10*3/uL LAB HEMATOLOGY METHOD 03/27/2025 6:32 AM EDT [facility] Immature Granulocytes Absolute 0.07(H) 0.00 - 0.06 10*3/uL LAB HEMATOLOGY METHOD 03/27/2025 6:32 AM EDT [facility] Blood Venous blood specimen / Unknown Venipuncture / Unknown 03/27/2025 5:55 AM EDT 03/27/2025 6:23 AM EDT [facility] - 03/27/2025 6:32 AM EDT Therapeutic decision making should be based on absolute values, rather than percentages. us Yin Christopher MD LAB BLOOD ORDERABLES Fi nal Result [facility] [address] [place] [address] * (ABNORMAL) Comprehensive Metabolic Panel, Plasma (03/27/2025 5:55 AM EDT) Glucose, Plasma 101(H) 74 - 99 mg/dL 03/27/2025 6:51 AM EDT [facility] BUN, Plasma 22 8 - 23 mg/dL 03/27/2025 6:51 AM EDT [facility] Creatinine, Plasma 0.73 0.70 - 1.20 mg/dL 03/27/2025 6:51 AM EDT [facility] BUN/Creatinine Ratio 30 03/27/2025 6:51 AM EDT [facility] Sodium, Plasma 135(L) 136 - 145 mmol/L 03/27/2025 6:51 AM EDT [facility] Potassium, Plasma 3.9 3.6 - 4.9 mmol/L 03/27/2025 6:51 AM EDT [facility] Chloride, Plasma 104 97 - 107 mmol/L 03/27/2025 6:51 AM EDT [facility] CO2, Plasma 21(L) 22 - 29 mmol/L 03/27/2025 6:51 AM EDT [facility] Anion Gap 10 6 - 16 mmol/L 03/27/2025 6:51 AM EDT [facility] Total Calcium, Plasma 8.0(L) 8.9 - 10.2 mg/dL 03/27/2025 6:51 AM EDT [facility] Total Protein 5.1(L) 6.3 - 7.9 g/dL 03/27/2025 6:51 AM EDT [facility] Albumin, Plasma 2.7(L) 3.5 - 5.2 g/dL 03/27/2025 6:51 AM EDT [facility] AST, Plasma 24 10 - 50 U/L 03/27/2025 6:51 AM EDT [facility] ALT, Plasma 18 10 - 50 U/L 03/27/2025 6:51 AM EDT [facility] Alkaline Phosphatase, Plasma 80 40 - 115 U/L 03/27/2025 6:51 AM EDT [facility] Total Bilirubin, Plasma 0.6 0.2 - 1.1 mg/dL 03/27/2025 6:51 AM EDT [facility] eGFRcr 100.3 mL/min/1.7 3m*2 03/27/2025 6:51 AM EDT [facility] Comment:Reported eGFRcr in m L/min/1.73m2 is based the CKD-EPI 2020 equation that does not use a race coefficient. Blood Venous blood specimen / Unknown Venipuncture / Unknown 03/27/2025 5:55 AM EDT 03/27/2025 6:22 AM EDT us Yin Christopher MD LAB BLOOD ORDERABLES Fi nal Result Performing Organization Address [facility] Co de Phone Number [facility] [address] [place] [address] * (ABNORMAL) Magnesium, Plasma (03/27/2025 5:55 AM EDT) Magnesium, Plasma 1.8(L) 1.9 - 2.4 mg/dL 03/27/2025 6:51 AM EDT [facility] Blood Venous blood specimen / Unknown Venipuncture / Unknown 03/27/2025 5:55 AM EDT 03/27/2025 6:22 AM EDT Yni Christopher MD LAB BLOOD ORDERABLES Fi nal Result [facility] [address] [place] [address] * Phosphorus, Plasma (03/27/2025 5:55 AM EDT) Phosphorus, Plasma 3.0 2.5 - 4.5 mg/dL 03/27/2025 6:51 AM EDT [facility] Blood Venous blood specimen / Unknown Venipuncture / Unknown 03/27/2025 5:55 AM EDT 03/27/2025 6:22 AM EDT us Yin Christopher MD LAB BLOOD ORDERABLES Fi nal Result Performing Organization Address City/[facility]/[place] [address] * (ABNORMAL) Hemoglobin and Hematocrit, Blood (03/27/2025 5:55 AM EDT) HGB 7.5(L) 13.7 - 17.5 g/dL LAB HEMATOLOGY METHOD 03/27/2025 6:32 AM EDT [facility] HCT 23.7(L) 40.0 - 51.0 % LAB HEMATOLOGY METHOD 03/27/2025 6:32 AM EDT [facility] Blood Venous blood specimen / Unknown Venipuncture / Unknown 03/27/2025 5:55 AM EDT 03/27/2025 6:23 AM EDT us Ramez Cordoba APRN, DNP LAB BLOOD ORDERAB LES Final Result Performing Organization Address [facility] Co de Phone Number [facility] [address] [place] [address] * (ABNORMAL) Hemoglobin and Hematocrit, Blood (03/26/2025 11:39 PM EDT) HGB 7.2(L) 13.7 - 17.5 g/dL LAB HEMATOLOGY METHOD 03/26/2025 11:52 PM EDT [facility] HCT 23.2(L) 40.0 - 51.0 % LAB HEMATOLOGY METHOD 03/26/2025 11:52 PM EDT [facility] Blood Venous blood specimen / Unknown Venipuncture / Unknown 03/26/2025 11:39 PM EDT 03/26/2025 11:45 PM EDT us Ramezluz Cordoba APRN, DNP LAB BLOOD ORDERAB LES Final Result Performing Organization Address City/[facility]/ZIP Co de Phone Number [facility] [address] [place] [address] * (ABNORMAL) Hemoglobin and Hematocrit, Blood (03/26/2025 5:52 PM EDT) HGB 7.8(L) 13.7 - 17.5 g/dL LAB HEMATOLOGY METHOD 03/26/2025 6:12 PM EDT [facility] HCT 24.0(L) 40.0 - 51.0 % LAB HEMATOLOGY METHOD 03/26/2025 6:12 PM EDT [facility] Blood Venous blood specimen / Unknown Venipuncture / Unknown 03/26/2025 5:52 PM EDT 03/26/2025 5:58 PM EDT us Ramezluz Cordoba APRN, DNP LAB BLOOD ORDERAB LES Final Result Performing Organization Address City/[facility]/ZIP Co de Phone Number [facility] [address] [place] [address] * (ABNORMAL) Hemoglobin and Hematocrit, Blood (03/26/2025 11:42 AM EDT) HGB 7.3(L) 13.7 - 17.5 g/dL LAB HEMATOLOGY METHOD 03/26/2025 11:53 AM EDT [facility] HCT 23.5(L) 40.0 - 51.0 % LAB HEMATOLOGY METHOD 03/26/2025 11:53 AM EDT [facility] Blood Venous blood specimen / Unknown Venipuncture / Unknown 03/26/2025 11:42 AM EDT 03/26/2025 11:45 AM EDT us Ramez N Jimenabetamanna [employer]ECTOR OPERATOR, DNP LAB BLOOD ORDERAB LES Final Result [facility] [address] [place] [address] * (ABNORMAL) Hemoglobin and Hematocrit, Blood (03/26/2025 5:38 AM EDT) HGB 7.7(L) 13.7 - 17.5 g/dL LAB HEMATOLOGY METHOD 03/26/2025 6:02 AM EDT [facility] HCT 24.6(L) 40.0 - 51.0 % LAB HEMATOLOGY METHOD 03/26/2025 6:02 AM EDT [facility] [facility] Blood Venous blood specimen / Unknown Venipuncture / Unknown 03/26/2025 5:38 AM EDT 03/26/2025 5:48 AM EDT us Ramezluz Cordoba APRN, JESSE LAB BLOOD ORDERAB LES Final Result Performing Organization Address [facility] Co de Phone Number [facility] [address] [place] [address] * (ABNORMAL) Hemoglobin and Hematocrit, Blood (03/26/2025 12:17 AM EDT) HGB 7.5(L) 13.7 - 17.5 g/dL LAB HEMATOLOGY METHOD 03/26/2025 12:33 AM EDT [facility] HCT 23.8(L) 40.0 - 51.0 % LAB HEMATOLOGY METHOD 03/26/2025 12:33 AM EDT [facility] Blood Venous blood specimen / Unknown Venipuncture / Unknown 03/26/2025 12:17 AM EDT 03/26/2025 12:26 AM EDT us Ramezgucci Cordoba APRN, JESSE LAB BLOOD ORDERAB LES Final Result Performing Organization Address [facility]/ZIP Co de Phone Number [facility] [address] [place] [address] * (ABNORMAL) Basic metabolic panel (03/26/2025 12:17 AM EDT) Glucose, Plasma 99 74 - 99 mg/dL 03/26/2025 12:54 AM EDT [facility] BUN, Plasma 24(H) 8 - 23 mg/dL 03/26/2025 12:54 AM EDT [facility] Creatinine, Plasma 0.75 0.70 - 1.20 mg/dL 03/26/2025 12:54 AM EDT [facility] BUN/Creatinine Ratio 32 03/26/2025 12:54 AM EDT [facility] Sodium, Plasma 137 136 - 145 mmol/L 03/26/2025 12:54 AM EDT [facility] Potassium, Plasma 4.1 3.6 - 4.9 mmol/L 03/26/2025 12:54 AM EDT [facility] Chloride, Plasma 107 97 - 107 mmol/L 03/26/2025 12:54 AM EDT [facility] CO2, Plasma 19(L) 22 - 29 mmol/L 03/26/2025 12:54 AM EDT [facility] Anion Gap 11 6 - 16 mmol/L 03/26/2025 12:54 AM EDT [facility] Total Calcium, Plasma 7.9(L) 8.9 - 10.2 mg/dL 03/26/2025 12:54 AM EDT [facility] eGFRcr 99.5 mL/min/1.7 3m*2 03/26/2025 12:54 AM EDT [facility] Comment:Reported eGFRcr in m L/min/1.73m2 is based the CKD-EPI 2020 equation that does not use a race coefficient. Blood Venous blood specimen / Unknown Venipuncture / Unknown 03/26/2025 12:17 AM EDT 03/26/2025 12:26 AM EDT us Ramezgucci Cordoba APRN, DNP LAB BLOOD ORDERAB LES Final Result [facility] [address] [place] [address] * (ABNORMAL) CBC (03/26/2025 12:17 AM EDT) WBC Count 5.76 3.70 - 10.30 10*3/uL LAB HEMATOLOGY METHOD 03/26/2025 12:33 AM EDT [facility] RBC Count 2.61(L) 4.60 - 6.10 10*6/uL LAB HEMATOLOGY METHOD 03/26/2025 12:33 AM EDT [facility] HGB 7.5(L) 13.7 - 17.5 g/dL LAB HEMATOLOGY METHOD 03/26/2025 12:33 AM EDT [facility] HCT 23.8(L) 40.0 - 51.0 % LAB HEMATOLOGY METHOD 03/26/2025 12:33 AM EDT [facility] Platelet Count 214 155 - 369 10*3/uL LAB HEMATOLOGY METHOD 03/26/2025 12:33 AM EDT [facility] MCV 91 79 - 98 fL LAB HEMATOLOGY METHOD 03/26/2025 12:33 AM EDT [facility] MCH 28.7 26.0 - 32.0 pg LAB HEMATOLOGY METHOD 03/26/2025 12:33 AM EDT [facility] MCHC 31.5 30.7 - 35.5 g/dL LAB HEMATOLOGY METHOD 03/26/2025 12:33 AM EDT [facility] RDW 20.7(H) 11.5 - 14.5 % LAB HEMATOLOGY METHOD 03/26/2025 12:33 AM EDT [facility] MPV 10.0 8.8 - 12.5 fL LAB HEMATOLOGY METHOD 03/26/2025 12:33 AM EDT [facility] nRBC 0.3(H) <=0.0 per 100 WBCs LAB HEMATOLOGY METHOD 03/26/2025 12:33 AM EDT [facility] Blood Venous blood specimen / Unknown Venipuncture / Unknown 03/26/2025 12:17 AM EDT 03/26/2025 12:26 AM EDT us Ramezluz Cordoba HOLIDAY DETECTOR OPERATOR, DNP LAB BLOOD ORDERAB LES Final Result [facility] [address] [place] [address] * (ABNORMAL) Hemoglobin and Hematocrit, Blood (03/25/2025 6:17 PM EDT) [facility] Signature HGB 7.6(L) 13.7 - 17.5 g/dL LAB HEMATOLOGY METHOD 03/25/2025 6:33 PM EDT [facility] HCT 24.2(L) 40.0 - 51.0 % LAB HEMATOLOGY METHOD 03/25/2025 6:33 PM EDT [facility] Blood Venous blood specimen / Unknown Venipuncture / Unknown 03/25/2025 6:17 PM EDT 03/25/2025 6:23 PM EDT us Ramez Cordoba APRN, DNP LAB BLOOD ORDERAB LES Final Result [facility] [address] [place] [address] * Transfuse RBC (03/25/2025 5:27 PM EDT) Yin Christopher MD BLOOD TRANSFUSION ORDER CASTILLO Final Result * Transfuse RBC: 1 Units (03/25/2025 5:27 PM EDT) Yin Christopher MD BLOOD TRANSFUSION ORDER CASTILLO Final Result * EGD MEAGAN AGGARWAL; 03/25/2025 (03/25/2025 5:22 PM EDT) Anatomical Region Laterality Modality Endoscopy Narrative 03/29/2025 1:37 PM EDT Table formatting from the original result was not included. Impression: Moderate, generalized erythematous mucosa with erosion in the duodenal bulb Single benign-appearing ulcer in the duodenal bulb with clean base (Ga III) Erythematous mucosa in the body of the stomach and antrum Post Procedure Diagnosis PUD Duodenitis Recommendations Other - Return to same hospital [facility] for ongoing care. - Okay to resume anticoagulation and antiplatelet medications on 03/26 if medically indicated - Continue PPI BID for 8-12 weeks then can decrease to daily - Check H. 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 - Findings and recommendations were discussed with patient. - Findings and recommendations to be conveyed to primary team. Indication Acute GI bleeding Medications See anesthesia record for anesthesia administered medications. Staff Staff Role Elbert Monreal CRNA CRNA Hansberry, Jolynn Endo Firmware Developer Betsy Ellis, RN Endo Nurse Meagan Aggarwal MD Proceduralist Cristofer Delacruz MD Anesthesiologist Preprocedure A history and physical has been performed, and patient medication allergies have been reviewed. The patient's tolerance of previous anesthesia has been reviewed. The risks and benefits of the procedure and the sedation options and risks were discussed with the patient. All questions were answered and informed consent obtained. Details of the Procedure The patient underwent monitored anesthesia care, which was administered by an anesthesia professional. The patient's blood pressure, heart rate, level of consciousness, oxygen and respirations were monitored throughout the procedure. The scope was introduced through the mouth and advanced to the second part of the duodenum. Retroflexion was performed in the cardia, fundus and incisura. The patient experienced no blood loss. The procedure was not difficult. The patient tolerated the procedure well. There were no apparent adverse events. Attestation I was present for the entire procedure Specimens No specimens were documented in this log. Findings Moderate, generalized erythematous mucosa with erosion in the duodenal bulb Single benign-appearing ulcer in the duodenal bulb with clean base (Ga III) Erythematous mucosa in the body of the stomach and antrum No blood, bleeding lesions or lesions with stigmata of bleeding seen throughout the esophagus, stomach or duodenum. Suspect ulcer in bulb contributing to anemia. Yin Christopher MD GI PROCEDURE ORDERABLES Final Result * Prepare Leukocyte Reduced RBC: 1 Units (03/25/2025 12:25 PM EDT) Pathologist [facility] [place] Product Code [id number] BLOO D BANK Dispense Status Transfused BLOOD BANK Blood Expiration Date [id number] BLOOD BANK Unit Number [id number] B LOOD BANK Product Blood Type 5100 BLOOD BANK Blood Type O+ BLOOD BANK Crossmatch Compatible BLOOD BANK Other Yin Christopher MD BLOOD BANK PRODUCT ORDE RABLES Final Result BLOOD BANK [address] [place] [address], * (ABNORMAL) Hemoglobin and Hematocrit, Blood (03/25/2025 11:46 AM EDT) HGB 6.5(L) 13.7 - 17.5 g/dL LAB HEMATOLOGY METHOD 03/25/2025 12:05 PM EDT [facility] HCT 20.9(L) 40.0 - 51.0 % LAB HEMATOLOGY METHOD 03/25/2025 12:05 PM EDT [facility] Blood Venous blood specimen / Unknown Venipuncture / Unknown 03/25/2025 11:46 AM EDT 03/25/2025 12:04 PM EDT us Ramez N Adalid JARRELLN, DNP LAB BLOOD ORDERAB LES Final Result [facility] [address] [place] [address] * (ABNORMAL) Troponin T, High Sensitivity, 2 Hour, Plasma (03/25/2025 8:28 AM EDT) Troponin T, High Sensitivity, 2 Hour 74(H) <19 ng/L 03/25/2025 9:14 AM EDT [facility] Troponin Delta 3 <10 ng/L 03/25/2025 9:14 AM EDT [facility] Troponin Delta Interpretation Not Significant 03/25/2025 9:14 AM EDT [facility] Comment:Not Significant. No acute change in troponin observed between the baseline and 2 hour samples. Blood Venous blood specimen / Unknown Venipuncture / Unknown 03/25/2025 8:28 AM EDT 03/25/2025 8:44 AM EDT us Ramezgucci Cordoba APRN, JESSE LAB BLOOD ORDERAB LES Final Result [facility] [address] [place] [address] * (ABNORMAL) Hemoglobin and Hematocrit, Blood (03/25/2025 8:28 AM EDT) HGB 7.0(L) 13.7 - 17.5 g/dL LAB HEMATOLOGY METHOD 03/25/2025 9:02 AM EDT [facility] HCT 22.3(L) 40.0 - 51.0 % LAB HEMATOLOGY METHOD 03/25/2025 9:02 AM EDT [facility] Blood Venous blood specimen / Unknown Venipuncture / Unknown 03/25/2025 8:28 AM EDT 03/25/2025 8:46 AM EDT us Ramezluz Cordoba APRN, DNP LAB BLOOD ORDERAB LES Final Result Performing Organization Address City/[facility]/ZIP Co de Phone Number [facility] [address] [place] [address] * Haptoglobin (03/25/2025 6:23 AM EDT) Haptoglobin, Serum 167 40 - 219 mg/dL 03/25/2025 6:59 AM EDT [facility] Blood Venous blood specimen / Unknown Venipuncture / Unknown 03/25/2025 6:23 AM EDT 03/25/2025 6:29 AM EDT us Ramezluz Cordoba APRN, DNP LAB BLOOD ORDERAB LES Final Result Performing Organization Address [facility] Co de Phone Number [facility] [address] [place] [address] * (ABNORMAL) Troponin T, High Sensitivity, 0 Hour Plasma, Reflex to 2 Hour (03/25/2025 6:23 AM EDT) Troponin T, High Sensitivity, 0 Hour 77(H) <19 ng/L 03/25/2025 6:58 AM EDT [facility] Blood Venous blood specimen / Unknown Venipuncture / Unknown 03/25/2025 6:23 AM EDT 03/25/2025 6:29 AM EDT us Ramezgucci Cordoba APRN, DNP LAB BLOOD ORDERAB LES Final Result Performing Organization Address City/[facility]/ZIP Co de Phone Number [facility] [address] [place] [address] * Lactate, venous (03/25/2025 6:23 AM EDT) Lactate, Venous, Whole Blood 0.8 0.5 - 2.2 mmol/L LAB HEMATOLOGY METHOD 03/25/2025 6:28 AM EDT [facility] Blood Venous blood specimen / Unknown Venipuncture / Unknown 03/25/2025 6:23 AM EDT 03/25/2025 6:27 AM EDT us Ramez Cordoba APRN, DNP LAB BLOOD ORDERAB LES Final Result Performing Organization Address City/[facility]/ZIP Co de Phone Number [facility] [address] [place] [address] * (ABNORMAL) Iron & Total Iron Binding Capacity, Plasma (Includes Transferrin) (03/25/2025 3:36 AM EDT) Iron, Plasma 81 50 - 170 ug/dL 03/25/2025 6:04 AM EDT [facility] Transferrin, Plasma 195(L) 200 - 360 mg/dL 03/25/2025 6:04 AM EDT [facility] Total Iron Binding Capacity, Plasma 244 240 - 450 ug/mL 03/25/2025 6:04 AM EDT [facility] Transferrin Saturation 33 14 - 50 % 03/25/2025 6:04 AM EDT [facility] Blood Venous blood specimen / Unknown Venipuncture / Unknown 03/25/2025 3:36 AM EDT 03/25/2025 3:50 AM EDT us Ramez Cordoba APRN, DNP LAB BLOOD ORDERAB LES Final Result Performing Organization Address City/[facility] Co de Phone Number [facility] [address] [place] [address] * C-reactive protein (03/25/2025 3:36 AM EDT) CRP, Plasma 6.3 <=8.0 mg/L 03/25/2025 6:04 AM EDT [facility] Blood Venous blood specimen / Unknown Venipuncture / Unknown 03/25/2025 3:36 AM EDT 03/25/2025 3:50 AM EDT Narrative [facility] - 03/25/2025 6:04 AM EDT This CRP test is appropriate for assessment of infection, systemic inflammation and/or tissue injury. To assess cardiovascular disease risk order high sensitivity CRP (CRPH). us Ramez Cordoba APRN, JESSE LAB BLOOD ORDERAB LES Final Result Performing Organization Address [facility]/ZIP Co de Phone Number [facility] [address] [place] [address] * (ABNORMAL) Hepatic function panel (03/25/2025 3:36 AM EDT) Conjugated Bilirubin, Plasma 0.5(H) <=0.3 mg/dL 03/25/2025 4:22 AM EDT [facility] Alkaline Phosphatase, Plasma 74 40 - 115 U/L 03/25/2025 4:22 AM EDT [facility] Total Bilirubin, Plasma 1.0 0.2 - 1.1 mg/dL 03/25/2025 4:22 AM EDT [facility] Albumin, Plasma 2.7(L) 3.5 - 5.2 g/dL 03/25/2025 4:22 AM EDT [facility] Total Protein 5.1(L) 6.3 - 7.9 g/dL 03/25/2025 4:22 AM EDT [facility] ALT, Plasma 21 10 - 50 U/L 03/25/2025 4:22 AM EDT [facility] AST, Plasma 26 10 - 50 U/L 03/25/2025 4:22 AM EDT [facility] Blood Venous blood specimen / Unknown Venipuncture / Unknown 03/25/2025 3:36 AM EDT 03/25/2025 3:50 AM EDT us Gretchen Hidalgo MD LAB BLOOD ORDERABLES Final Re sult Performing Organization Address City/[facility]/ZIP Co de Phone Number [facility] [address] [place] [address] * ECG Adult (03/25/2025 3:31 AM EDT) Pathologist [facility] [place] EKG DIAGNOSIS CLASS Abnormal MUSE ECG Ventricular Rate 62 BPM MUSE ECG Atrial Rate 62 BPM MUSE ECG UT Interval 182 ms MUSE ECG QRSD Interval 94 ms MUSE ECG QT Interval 450 ms MUSE ECG QTC Interval 456 ms MUSE ECG P [place] 69 degrees MUSE ECG R [place] 42 degrees MUSE ECG T Wave [place] 138 degrees MUSE ECG Diagnosis Normal sinus rhythm MUSE ECG Diagnosis ST & T wave abnormality, consider anterolateral ischemia MUSE ECG Diagnosis Consider ACUTE CORONARY SYNDROME (ACS) MUSE ECG Diagnosis Abnormal ECG MUSE ECG Diagnosis MUSE ECG Diagnosis Confirmed by Ramone Marie ([id number]) on 03/25/2025 10:29:53 AM MUSE ECG 03/25/2025 3:31 AM EDT 03/25/2025 10:29 AM EDT us Gretchen Hidalgo MD ECG ORDERABLES Final Result MUSE ECG * Lactate dehydrogenase (03/25/2025 3:29 AM EDT) [facility] LDH, Plasma 236 116 - 250 U/L 03/25/2025 6:09 AM EDT [facility] Blood Venous blood specimen / Unknown Venipuncture / Unknown 03/25/2025 3:29 AM EDT 03/25/2025 3:50 AM EDT us Ramez Cordoba APRN, DNP LAB BLOOD ORDERAB LES Final Result [facility] [address] [place] [address] * (ABNORMAL) Reticulocytes (03/25/2025 3:29 AM EDT) [facility] Reticulocyte Absolute 214.2(H) 40.0 - 110.0 10*3/uL LAB HEMATOLOGY METHOD 03/25/2025 5:46 AM EDT [facility] Immature Reticulocyte Fraction 43.1(H) 3.1 - 17.6 % LAB HEMATOLOGY METHOD 03/25/2025 5:46 AM EDT [facility] Reticulocyte Hemoglobin 29.9 28 - 38 pg LAB HEMATOLOGY METHOD 03/25/2025 5:46 AM EDT [facility] Reticulocyte Count 8.50(H) 0.90 - 2.50 % LAB HEMATOLOGY METHOD 03/25/2025 5:46 AM EDT [facility] Blood Venous blood specimen / Unknown Venipuncture / Unknown 03/25/2025 3:29 AM EDT 03/25/2025 3:32 AM EDT us Ramez N Adalid HOLIDAY DETECTOR OPERATOR, DNP LAB BLOOD ORDERAB LES Final Result Performing Organization Address City/[facility]/ZIP Co de Phone Number [facility] [address] [place] [address] * (ABNORMAL) N-Terminal Probnp (03/25/2025 3:29 AM EDT) N-Terminal, PROBNP, Plasma 1,495(H) 0 - 899 pg/mL 03/25/2025 6:09 AM EDT [facility] Blood Venous blood specimen / Unknown Venipuncture / Unknown 03/25/2025 3:29 AM EDT 03/25/2025 3:50 AM EDT us Ramez N Adalid SPANN, DNP LAB BLOOD ORDERAB LES Final Result Performing Organization Address City/[facility]/[place] [address] * Procalcitonin (03/25/2025 3:29 AM EDT) Procalcitonin, Plasma 0.08 <0.09 ng/mL 03/25/2025 6:09 AM EDT [facility] Blood Venous blood specimen / Unknown Venipuncture / Unknown 03/25/2025 3:29 AM EDT 03/25/2025 3:50 AM EDT Narrative [facility] - 03/25/2025 6:09 AM EDT Procalcitonin concentrations in healthy individuals are <0.09 ng/mL. Published data support the following interpretive risk assessment: An elevated procalcitonin result does not always indicate sepsis. Various non-infectious conditions are known to increase procalcitonin. Results should be considered in the context of clinical symptoms and other laboratory tests. Procalcitonin >2.0 ng/mL: Concentrations >2.0 ng/mL on the first day of ICU admission are associated with a higher risk of progression to severe sepsis and/or septic shock. The change in PCT over time may help predict 28 day mortality risk. Please consult [email or web address]-[email or web address] for more information. Test performed at [facility]. us Ramez Cordoba APRN, DNP LAB BLOOD ORDERAB LES Final Result Performing Organization Address [facility] Co de Phone Number [facility] [address] [place] [address] * (ABNORMAL) PT-INR (03/25/2025 3:29 AM EDT) [facility] Prothrombin Time 20.1(H) 12.0 - 14.3 sec 03/25/2025 3:47 AM EDT [facility] INR 1.7(H) 0.9 - 1.1 03/25/2025 3:47 AM EDT [facility] Blood Venous blood specimen / Unknown Venipuncture / Unknown 03/25/2025 3:29 AM EDT 03/25/2025 3:32 AM EDT Narrative [facility] - 03/25/2025 3:47 AM EDT OPTIMAL INR RANGES FOR PATIENT ON ORAL ANTICOAGULANT THERAPY Prevention of venous thromboembolism INR 2.0 to 3.0 In patients with heart disease: Atrial fibrillation INR 2.0 to 3.0 Valvular heart disease INR 2.0 to 3.0 Tissue heart valves INR 2.0 to 3.0 Mechanical prosthetic valves INR 2.5 to 3.5 Prevention of recurrent [place] INR 2.5 to 3.5 us Gretchen Hidalgo MD LAB BLOOD ORDERABLES Final Re sult Performing Organization Address [facility]/ZIP Co de Phone Number [facility] [address] [place] [address] * Type and screen (03/25/2025 3:29 AM EDT) ABO/Rh O Positive 03/25/2025 3:29 AM EDT BLOOD BANK Antibody Screen Negative 03/25/2025 3:29 AM EDT BLOOD BANK Specimen Expiration 03/28/2025 23:59 03/25/2025 3:29 AM EDT BLOOD BANK Blood Venous blood specimen / Unknown Venipuncture / Unknown 03/25/2025 3:29 AM EDT 03/25/2025 3:32 AM EDT Gretchen Hidalgo MD LAB BLOOD BANK TEST ORDERABLE S Final Result Performing Organization Address [facility]/ZIP Co de Phone Number BLOOD BANK [address] [place] [address], * (ABNORMAL) Troponin now and 120 min (03/25/2025 3:29 AM EDT) Troponin T, High Sensitivity, 0 Hour 81(H) <19 ng/L 03/25/2025 4:20 AM EDT [facility] Blood Venous blood specimen / Unknown Venipuncture / Unknown 03/25/2025 3:29 AM EDT 03/25/2025 3:50 AM EDT us Gretchen Hidalgo MD LAB BLOOD ORDERABLES Final Re sult [facility] [address] [place] [address] * (ABNORMAL) BMP (03/25/2025 3:29 AM EDT) Glucose, Plasma 104(H) 74 - 99 mg/dL 03/25/2025 4:20 AM EDT [facility] BUN, Plasma 33(H) 8 - 23 mg/dL 03/25/2025 4:20 AM EDT [facility] Creatinine, Plasma 0.85 0.70 - 1.20 mg/dL 03/25/2025 4:20 AM EDT [facility] BUN/Creatinine Ratio 39 03/25/2025 4:20 AM EDT [facility] Sodium, Plasma 137 136 - 145 mmol/L 03/25/2025 4:20 AM EDT [facility] Potassium, Plasma 4.3 3.6 - 4.9 mmol/L 03/25/2025 4:20 AM EDT [facility] Chloride, Plasma 106 97 - 107 mmol/L 03/25/2025 4:20 AM EDT [facility] CO2, Plasma 21(L) 22 - 29 mmol/L 03/25/2025 4:20 AM EDT [facility] Anion Gap 10 6 - 16 mmol/L 03/25/2025 4:20 AM EDT [facility] Total Calcium, Plasma 8.1(L) 8.9 - 10.2 mg/dL 03/25/2025 4:20 AM EDT [facility] eGFRcr 95.8 mL/min/1.7 3m*2 03/25/2025 4:20 AM EDT [facility] Comment:Reported eGFRcr in m L/min/1.73m2 is based the CKD-EPI 2020 equation that does not use a race coefficient. Blood Venous blood specimen / Unknown Venipuncture / Unknown 03/25/2025 3:29 AM EDT 03/25/2025 3:50 AM EDT us Gretchen Hidalgo MD LAB BLOOD ORDERABLES Final Re sult [facility] [address] [place] [address] * (ABNORMAL) CBC with Diff (03/25/2025 3:29 AM EDT) WBC Count 7.34 3.70 - 10.30 10*3/uL LAB HEMATOLOGY METHOD 03/25/2025 3:34 AM EDT [facility] RBC Count 2.56(L) 4.60 - 6.10 10*6/uL LAB HEMATOLOGY METHOD 03/25/2025 3:34 AM EDT [facility] HGB 7.4(L) 13.7 - 17.5 g/dL LAB HEMATOLOGY METHOD 03/25/2025 3:34 AM EDT [facility] HCT 23.8(L) 40.0 - 51.0 % LAB HEMATOLOGY METHOD 03/25/2025 3:34 AM EDT [facility] Platelet Count 220 155 - 369 10*3/uL LAB HEMATOLOGY METHOD 03/25/2025 3:34 AM EDT [facility] MCV 93 79 - 98 fL LAB HEMATOLOGY METHOD 03/25/2025 3:34 AM EDT [facility] MCH 28.9 26.0 - 32.0 pg LAB HEMATOLOGY METHOD 03/25/2025 3:34 AM EDT [facility] MCHC 31.1 30.7 - 35.5 g/dL LAB HEMATOLOGY METHOD 03/25/2025 3:34 AM EDT [facility] RDW 20.9(H) 11.5 - 14.5 % LAB HEMATOLOGY METHOD 03/25/2025 3:34 AM EDT [facility] MPV 9.4 8.8 - 12.5 fL LAB HEMATOLOGY METHOD 03/25/2025 3:34 AM EDT [facility] nRBC 0.3(H) <=0.0 per 100 WBCs LAB HEMATOLOGY METHOD 03/25/2025 3:34 AM EDT [facility] Differential Type Automated LAB HEMATOLOGY METHOD 03/25/2025 3:34 AM EDT [facility] Neutrophils % 54 % LAB HEMATOLOGY METHOD 03/25/2025 3:34 AM EDT [facility] Lymphocytes % 34 % LAB HEMATOLOGY METHOD 03/25/2025 3:34 AM EDT [facility] Monocytes % 8 % LAB HEMATOLOGY METHOD 03/25/2025 3:34 AM EDT [facility] Eosinophils % 1 % LAB HEMATOLOGY METHOD 03/25/2025 3:34 AM EDT [facility] Basophils % 1 % LAB HEMATOLOGY METHOD 03/25/2025 3:34 AM EDT [facility] Immature Granulocytes % 2 % LAB HEMATOLOGY METHOD 03/25/2025 3:34 AM EDT [facility] Neutrophils Absolute 4.01 1.60 - 6.10 10*3/uL LAB HEMATOLOGY METHOD 03/25/2025 3:34 AM EDT [facility] Lymphocytes Absolute 2.52 1.20 - 3.90 10*3/uL LAB HEMATOLOGY METHOD 03/25/2025 3:34 AM EDT [facility] Monocytes Absolute 0.56 0.30 - 0.90 10*3/uL LAB HEMATOLOGY METHOD 03/25/2025 3:34 AM EDT [facility] Eosinophils Absolute 0.05 0.00 - 0.50 10*3/uL LAB HEMATOLOGY METHOD 03/25/2025 3:34 AM EDT [facility] Basophils Absolute 0.05 0.00 - 0.10 10*3/uL LAB HEMATOLOGY METHOD 03/25/2025 3:34 AM EDT [facility] Immature Granulocytes Absolute 0.15(H) 0.00 - 0.06 10*3/uL LAB HEMATOLOGY METHOD 03/25/2025 3:34 AM EDT [facility] Blood Venous blood specimen / Unknown Venipuncture / Unknown 03/25/2025 3:29 AM EDT 03/25/2025 3:32 AM EDT Narrative [facility] - 03/25/2025 3:34 AM EDT Therapeutic decision making should be based on absolute values, rather than percentages. us Gretchen Hidalgo MD LAB BLOOD ORDERABLES Final Re sult [facility] [address] [place] [address] documented in this encounter Visit Diagnoses Diagnosis Upper GI bleeding- Primary Unspecified, hemorrhage of gastrointestinal tract Acute GI bleeding Unspecified, hemorrhage of gastrointestinal tract Severe anemia Generalized weakness Upper GI bleeding Unspecified, hemorrhage of gastrointestinal tract Persistent atrial fibrillation ([facility]) Atrial fibrillation Duodenal ulcer CAD, multiple vessel HLD (hyperlipidemia) Other and unspecified hyperlipidemia HTN (hypertension) Unspecified essential hypertension COPD (chronic obstructive pulmonary disease) ([facility]) Chronic airway obstruction, not elsewhere classified GERD (gastroesophageal reflux disease) Esophageal reflux Heart failure with mid-range ejection fraction (HFmEF) ([facility]) S/P CABG x 4 Postsurgical aortocoronary bypass status Iron deficiency anemia Unspecified iron deficiency anemia documented in this encounter Admitting Diagnoses Diagnosis Upper GI bleeding Unspecified, hemorrhage of gastrointestinal tract documented in this encounter Administered Medications Inactive Administered Medications - up to 3 most recent administrations Medication Order MAR Action Action Date Dose Rate Site acetaminophen (Tylenol) tablet 1,000 mg 1,000 mg, Oral, Every 6 hours PRN, Starting on Sat03/25/25 at 0515, Until Sat03/31/25 at 1500, Routine, mild pain Given 03/31/2025 5:08 AM EDT 1,000 mg Given 03/30/2025 5:42 PM EDT 1,000 mg Given 03/30/2025 8:50 AM EDT 1,000 mg amiodarone (Pacerone) tablet 200 mg 200 mg, Oral, Daily, First dose on [facility] 03/25/25 at 0900, Until Discontinued, Routine Given 03/31/2025 8:12 AM EDT 200 mg Given 03/30/2025 8:34 AM EDT 200 mg Given 03/29/2025 8:24 AM EDT 200 mg amoxicillin-clavulanate XR (Augmentin XR) 1000-62.5 MG per 12 hr tablet 2 tablet 2 tablet (2,000 mg), Oral, Every 12 hours, First dose on [facility] 03/25/25 at 0800, Until Discontinued, Routine Given 03/27/2025 8:09 PM EDT 2 tablets Given 03/27/2025 8:38 AM EDT 2 tablets Given 03/26/2025 8:00 PM EDT 2 tablets amoxicillin-clavulanate XR (Augmentin XR) 1000-62.5 MG per 12 hr tablet 2 tablet 2 tablet (2,000 mg), Oral, Every 12 hours, 7 doses, First dose (after last reorder) on Sat03/28/25 at 1700, Last dose on Sat03/31/25 at 1700, Routine Given 03/31/2025 4:11 AM EDT 2 tablets Given 03/30/2025 5:43 PM EDT 2 tablets Given 03/30/2025 5:27 AM EDT 2 tablets apixaban (Eliquis) tablet 5 mg 5 mg, Oral, 2 times daily, First dose on [facility] 03/25/25 at 0900, Until Discontinued, Routine Given 03/28/2025 8:08 PM EDT 5 mg Given 03/28/2025 9:11 AM EDT 5 mg Given 03/27/2025 8:09 PM EDT 5 mg aspirin chewable tablet 81 mg 81 mg, Oral, Daily, First dose on [facility] 03/27/25 at 0900, Until Discontinued, Routine Given 03/31/2025 8:12 AM EDT 81 mg Given 03/30/2025 8:34 AM EDT 81 mg Given 03/29/2025 8:23 AM EDT 81 mg atorvastatin (Lipitor) tablet 80 mg 80 mg, Oral, Nightly, First dose on Sat03/25/25 at 2100, Until Discontinued Given 03/30/2025 9:20 PM EDT 80 mg Given 03/29/2025 8:15 PM EDT 80 mg Given 03/28/2025 8:08 PM EDT 80 mg bisacodyl (Dulcolax) EC tablet 10 mg 10 mg, Oral, Daily PRN, Starting on Sat03/25/25 at 0516, Until Sat03/31/25 at 1500, Routine, constipation Given 03/28/2025 12:09 PM EDT 10 mg Given 03/27/2025 12:30 PM EDT 10 mg bisacodyl (Dulcolax) suppository 10 mg 10 mg, Rectal, Daily, First dose on Sat03/28/25 at 1615, Until Discontinued, Routine Given 03/28/2025 3:32 PM EDT 10 mg ceFAZolin (Ancef) injection 2 g 2 g, Intravenous, Every 8 hours, First dose on Sat03/28/25 at 0915, Until Discontinued, Routine Given 03/28/2025 9:11 AM EDT 2 g doxycycline (Vibra-Tabs) tablet 100 mg 100 mg, Oral, 2 times daily, 14 doses, First dose on Sat03/25/25 at 0900, Last dose on Sat03/31/25 at 2100, Routine Given 03/31/2025 8:12 AM EDT 100 mg Given 03/30/2025 9:20 PM EDT 100 mg Given 03/30/2025 8:34 AM EDT 100 mg ipratropium-albuterol (Duo-Neb) 0.5-2.5 mg/3 mL nebulizer solution 3 mL 3 mL, Nebulization, Every 6 hours PRN, Starting on Sat03/25/25 at 0712, Until Sat03/31/25 at 1500, Routine, shortness of breath magnesium hydroxide (Milk of Magnesia) 400 MG/5ML suspension 30 mL 30 mL, Oral, Daily PRN, Starting on 03/28/25 at 1229, Until Sat03/31/25 at 1500, Routine, constipation Given 03/28/2025 1:59 PM EDT 30 mL magnesium sulfate IVPB 2 g 2 g, Intravenous, Once, 1 dose, On [facility] 03/27/25 at 1945, Routine New Bag 03/27/2025 8:08 PM EDT 2 g 25 mL/hr metoprolol tartrate (Lopressor) tablet 75 mg 75 mg, Oral, 2 times daily, First dose on [facility] 03/27/25 at 2100, Until Discontinued, Routine Given 03/31/2025 8:12 AM EDT 75 mg Given 03/30/2025 9:20 PM EDT 75 mg Given 03/30/2025 8:34 AM EDT 75 mg mometasone-formoterol (Dulera 100) 100-5 MCG/ACT inhaler 2 puff 2 puff, Inhalation, 2 times daily, First dose on [facility] 03/25/25 at 0900, Until Discontinued, Routine Given 03/31/2025 8:11 AM EDT 2 puffs Given 03/30/2025 9:19 PM EDT 2 puffs Given 03/30/2025 8:33 AM EDT 2 puffs morphine PF 4 mg 4 mg, Intravenous, Once as needed, 1 dose, Starting on [facility] 03/25/25 at 0433, Until [facility] 03/25/25 at 0443, STAT, severe pain Given 03/25/2025 4:43 AM EDT 4 mg oxyCODONE (Roxicodone) immediate release tablet 5 mg 5 mg, Oral, Every 6 hours PRN, Starting on [facility] 03/25/25 at 0515, Until Sat03/31/25 at 1500, Routine, moderate pain, severe pain Given 03/31/2025 5:08 AM EDT 5 mg Given 03/30/2025 5:42 PM EDT 5 mg Given 03/30/2025 8:50 AM EDT 5 mg pantoprazole (Protonix) EC tablet 40 mg 40 mg, Oral, 2 times daily, First dose on [facility] 03/27/25 at 2100, Until Discontinued, Routine Given 03/31/2025 8:12 AM EDT 40 mg Given 03/30/2025 9:20 PM EDT 40 mg Given 03/30/2025 8:34 AM EDT 40 mg pantoprazole (Protonix) injection 40 mg 40 mg, Intravenous, 2 times daily, First dose on [facility] 03/25/25 at 0900, Until Discontinued, Routine Given 03/27/2025 8:36 AM EDT 40 mg Given 03/26/2025 8:00 PM EDT 40 mg Given 03/26/2025 9:28 AM EDT 40 mg polyethylene glycol (Miralax) packet 17 g 17 g, Oral, Daily, First dose on [facility] 03/25/25 at 0900, Until Discontinued, Routine Given 03/29/2025 8:44 AM EDT 17 g Given 03/28/2025 9:11 AM EDT 17 g Given 03/27/2025 8:37 AM EDT 17 g senna (Senokot) tablet 17.2 mg 17.2 mg (2 tablet), Oral, Nightly, First dose on [facility] 03/25/25 at 2100, Until Discontinued, Routine Given 03/30/2025 9:20 PM EDT 17.2 mg Given 03/29/2025 8:15 PM EDT 17.2 mg Given 03/28/2025 8:08 PM EDT 17.2 mg sodium chloride 0.9 % flush 10 mL 10 mL, Intravenous, Every 12 hours, First dose on [facility] 03/25/25 at 0520, Until Discontinued, Routine Given 03/30/2025 5:44 PM EDT 10 mL Given 03/29/2025 5:46 PM EDT 10 mL Given 03/29/2025 5:20 AM EDT 10 mL sodium chloride 0.9 % flush 10 mL 10 mL, Intravenous, As needed, Starting on Sat03/25/25 at 0511, Until Sat03/31/25 at 1500, Routine, line care sodium chloride 0.9 % flush 10 mL 10 mL, Intravenous, Every 12 hours, First dose on [facility] 03/25/25 at 0540, Until Discontinued, Routine Given 03/30/2025 5:45 PM EDT 10 mL Given 03/29/2025 5:46 PM EDT 10 mL Given 03/29/2025 5:20 AM EDT 10 mL sodium chloride 0.9 % flush 10 mL 10 mL, Intravenous, As needed, Starting on Sat03/25/25 at 0533, Until Sat03/31/25 at 1500, Routine, line care Sodium Hypochlorite (Dakin's (HALF-Strength)) external solution Topical, 2 times daily, 28 doses, First dose on Sat03/25/25 at 1000, Last dose on Sat04/07/25 at 2100, Routine Given 03/31/2025 8:13 AM EDT Given 03/31/2025 5:00 AM EDT Given 03/30/2025 5:28 AM EDT sucralfate (Carafate) 1 GM/10ML suspension 1 g 1 g, Oral, 4 times daily before meals and nightly, First dose on Sat03/28/25 at 0915, Until Discontinued, Routine Given 03/31/2025 8:11 AM EDT 1 g Given 03/30/2025 5:43 PM EDT 1 g Given 03/30/2025 12:49 PM EDT 1 g Tiotropium [place] Monohydrate (Spiriva Respimat) 2.5 MCG/ACT inhaler 2 puff 2 puff, Inhalation, Daily, First dose on Sat03/25/25 at 0900, Until Discontinued, Routine Given 03/31/2025 8:12 AM EDT 2 puffs Given 03/30/2025 8:33 AM EDT 2 puffs Given 03/29/2025 8:43 AM EDT 2 puffs documented in this encounter Active and Recently Administered Medications Times are shown in EDT. Scheduled Medication Order 03/29/2025 03/30/2025 03/31/2025 amiodarone (Pacerone) tablet 200 mg 200 mg, Oral, Daily, First dose on Sat03/25/25 at 0900, Until Discontinued, Routine 0824 (Given - Provider: Marci Randall RN) 0834 (Given - Provider: Natalie Bryan RN) 0812 (Given - Provider: Sally Higgins RN) amoxicillin-clavulanat e XR (Augmentin XR) 1000-62.5 MG per 12 hr tablet 2 tablet 2 tablet (2,000 mg), Oral, Every 12 hours, 7 doses, First dose (after last reorder) on Sat03/28/25 at 1700, Last dose on Sat03/31/25 at 1700, Routine 0520 (Given - Provider: Joe Randall RN)1745 (Given - Provider: Marci Randall, ANGELICA) 0527 (Given - Provider: Mirella Glez RN)1743 (Given - Provider: Natalie Bryan, ANGELICA) 0411 (Given - Provider: Mirella Glez, ANGELICA) aspirin chewable tablet 81 mg 81 mg, Oral, Daily, First dose on 03/27/25 at 0900, Until Discontinued, Routine 0823 (Given - Provider: Marci Randall RN) 0834 (Given - Provider: Natalie Byran RN) 08 (Given - Provider: Sally Higgins, ANGELICA) atorvastatin (Lipitor) tablet 80 mg 80 mg, Oral, Nightly, First dose on [facility] 03/25/25 at 2100, Until Discontinued 2014 (Given - Provider: Mirella Glez RN) 2119 (Given - Provider: Mirella Glez RN) bisacodyl (Dulcolax) suppository 10 mg 10 mg, Rectal, Daily, First dose on 03/28/25 at 1615, Until Discontinued, Routine 0843 (Not Given - Provider: Marci Randall RN - Reason: Patient/family refused) 0836 (Not Given - Provider: Natalie Bryan RN - Reason: Patient/family refused) 08 (Not Given - Provider: Sally Higgins RN - Reason: Patient/family refused) doxycycline (Vibra-Tabs) tablet 100 mg 100 mg, Oral, 2 times daily, 14 doses, First dose on [facility] 03/25/25 at 0900, Last dose on Sat03/31/25 at 2100, Routine 0822 (Given - Provider: Marci Randall RN)2014 (Given - Provider: Mirella Glez RN) 08 (Given - Provider: Natalie Bryan RN)2119 (Given - Provider: Mirella Glez RN) 811 (Given - Provider: Sally Higgins, ANGELICA) metoprolol tartrate (Lopressor) tablet 75 mg 75 mg, Oral, 2 times daily, First dose on 03/27/25 at 2100, Until Discontinued, Routine 1148 (Given - Provider: Marci Randall, ANGELICA)2014 (Given - Provider: Mirella Glez RN) 08 (Given - Provider: Natalie Bryan RN)2119 (Given - Provider: Mirella Glez, ANGELICA) 811 (Given - Provider: Sally Higgins, ANGELICA) mometasone-formoterol (Dulera 100) 100-5 MCG/ACT inhaler 2 puff 2 puff, Inhalation, 2 times daily, First dose on [facility] 03/25/25 at 0900, Until Discontinued, Routine 0843 (Given - Provider: Marci Randall, ANGELICA)2014 (Given - Provider: Mirella Glez RN) 832 (Given - Provider: Natalie Bryan RN)2118 (Given - Provider: Mirella Glez, ANGELICA) 08 (Given - Provider: Sally Higgins, ANGELICA) pantoprazole (Protonix) EC tablet 40 mg 40 mg, Oral, 2 times daily, First dose on 03/27/25 at 2100, Until Discontinued, Routine 0822 (Given - Provider: Marci Randall, ANGELICA)2014 (Given - Provider: Mirella Glez RN) 08 (Given - Provider: Natalie Bryan RN)2119 (Given - Provider: Mirella Glez, ANGELICA) 08 (Given - Provider: Sally Higgins, ANGELICA) polyethylene glycol (Miralax) packet 17 g 17 g, Oral, Daily, First dose on [facility] 03/25/25 at 0900, Until Discontinued, Routine 0844 (Given - Provider: Marci Randall, ANGELICA) 0836 (Not Given - Provider: Natalie Bryan RN - Reason: Patient/family refused) 08 (Not Given - Provider: Sally Higgins RN - Reason: Patient/family refused) senna (Senokot) tablet 17.2 mg 17.2 mg (2 tablet), Oral, Nightly, First dose on [facility] 03/25/25 at 2100, Until Discontinued, Routine 2014 (Given - Provider: Mirella Glez RN) 2120 (Given - Provider: Mirella Glez RN) sodium chloride 0.9 % flush 10 mL(Linked Group 1) 10 mL, Intravenous, Every 12 hours, First dose on [facility] 03/25/25 at 0520, Until Discontinued, Routine 0520 (Given - Provider: Joe Randall RN)1746 (Given - Provider: Marci Randall RN) 0529 (Not Given - Provider: Mirella Glez RN - Reason: Hold for condition: must add comment - Comment: lines are flushed at the beginning of the shift)1744 (Given - Provider: Natalie Bryan RN) 0510 (Not Given - Provider: Mirella Glez RN - Reason: Hold for condition: must add comment - Comment: lines are flushed at the beginning of the shift) sodium chloride 0.9 % flush 10 mL(Linked Group 2) 10 mL, Intravenous, Every 12 hours, First dose on [place] 03/25/25 at 0540, Until Discontinued, Routine 0520 (Given - Provider: Joe Randall RN)1746 (Given - Provider: Marci Randall RN) 0529 (Not Given - Provider: Mirella Glez RN - Reason: Hold for condition: must add comment - Comment: lines are flushed at the beginning of the shift)1745 (Given - Provider: Natalie Bryan RN) 0509 (Not Given - Provider: Mirella Glez RN - Reason: Hold for condition: must add comment - Comment: lines are flushed at the beginning of the shift) Sodium Hypochlorite (Dakin's (HALF-Strength)) external solution Topical, 2 times daily, 28 doses, First dose on Sat03/25/25 at 1000, Last dose on Sat04/07/25 at 2100, Routine 0844 (Given - Provider: Marci Randall RN) 0528 (Given - Provider: Mirella Glez RN - Comment: dressing change)0843 (Not Given - Provider: Natalie Bryan RN - Reason: Order changed - Comment: given while provider dressing change @ 0430- see wound documentation) 0500 (Given - Provider: Mirella Glez RN - Comment: used with dressing change)0813 (Given - Provider: Sally Higgins, ANGELICA) sucralfate (Carafate) 1 GM/10ML suspension 1 g 1 g, Oral, 4 times daily before meals and nightly, First dose on 03/28/25 at 0915, Until Discontinued, Routine 0822 (Given - Provider: Marci Randall RN)1745 (Given - Provider: Marci Randall RN)1803 (Not Given - Provider: Marci Randall RN - Reason: See Provider Order - Comment: too close to next dose)2239 (Given - Provider: Mirella Glez RN - Comment: med should be given 2 hours after other meds) 0834 (Given - Provider: Natalie Bryan RN)1249 (Given - Provider: Natalie Bryan RN)1743 (Given - Provider: Natalie Bryan RN) 0042 (Not Given - Provider: Mirella Glez RN - Reason: Hold for condition: must add comment - Comment: patient did not have an empty stomach)0811 (Given - Provider: Sally Higgins, ANGELICA)1200 (Canceled Entry - Provider: Automatic Discharge Provider - Comment: Automatically canceled at discontinue of medication order) Tiotropium [place] Monohydrate (Spiriva Respimat) 2.5 MCG/ACT inhaler 2 puff 2 puff, Inhalation, Daily, First dose on [facility] 03/25/25 at 0900, Until Discontinued, Routine 0843 (Given - Provider: Marci Randall RN) 0833 (Given - Provider: Natalie Bryan RN) 0812 (Given - Provider: Sally Higgins, ANGELICA) PRN Medication Order 03/29/2025 03/30/2025 03/31/2025 acetaminophen (Tylenol) tablet 1,000 mg 1,000 mg, Oral, Every 6 hours PRN, Starting on [facility] 03/25/25 at 0515, Until Sat03/31/25 at 1500, Routine, mild pain 2019 (Given - Provider: Mirella Glez, ANGELICA) 0850 (Given - Provider: Natalie Bryan RN)1742 (Given - Provider: Natalie Bryan RN) 0508 (Given - Provider: Mirella Glez, ANGELICA) bisacodyl (Dulcolax) EC tablet 10 mg 10 mg, Oral, Daily PRN, Starting on [facility] 03/25/25 at 0516, Until Sat03/31/25 at 1500, Routine, constipation ipratropium-albuterol (Duo-Neb) 0.5-2.5 mg/3 mL nebulizer solution 3 mL 3 mL, Nebulization, Every 6 hours PRN, Starting on [facility] 03/25/25 at 0712, Until Sat03/31/25 at 1500, Routine, shortness of breath magnesium hydroxide (Milk of Magnesia) 400 MG/5ML suspension 30 mL 30 mL, Oral, Daily PRN, Starting on Sat03/28/25 at 1229, Until Sat03/31/25 at 1500, Routine, constipation oxyCODONE (Roxicodone) immediate release tablet 5 mg 5 mg, Oral, Every 6 hours PRN, Starting on [facility] 03/25/25 at 0515, Until Sat03/31/25 at 1500, Routine, moderate pain, severe pain 1032 (Given - Provider: Marci Randall RN)1745 (Given - Provider: Marci Randall RN) 0850 (Given - Provider: Natalie Bryan RN)1742 (Given - Provider: Natalie Bryan RN) 0508 (Given - Provider: Mirella Glez RN) sodium chloride 0.9 % flush 10 mL(Linked Group 1) 10 mL, Intravenous, As needed, Starting on [facility] 03/25/25 at 0511, Until Sat03/31/25 at 1500, Routine, line care sodium chloride 0.9 % flush 10 mL(Linked Group 2) 10 mL, Intravenous, As needed, Starting on [facility] 03/25/25 at 0533, Until Sat03/31/25 at 1500, Routine, line care Linked Groups Order Group 1: Insert peripheral IV (CANCELED) Once, On [facility] 03/25/25 at 0512, For 1 occurrence And Saline lock IV (CANCELED) Once, On [facility] 03/25/25 at 0512, For 1 occurrence And sodium chloride 0.9 % flush 10 mLJump to med 10 mL, Intravenous, Every 12 hours, First dose on [facility] 03/25/25 at 0520, Until Discontinued, Routine And sodium chloride 0.9 % flush 10 mLJump to med 10 mL, Intravenous, As needed, Starting on [facility] 03/25/25 at 0511, Until Sat03/31/25 at 1500, Routine, line care Group 2: Insert peripheral IV (CANCELED) Once, On [facility] 03/25/25 at 0534, For 1 occurrence, Large bore And Saline lock IV (CANCELED) Once, On [facility] 03/25/25 at 0534, For 1 occurrence And sodium chloride 0.9 % flush 10 mLJump to med 10 mL, Intravenous, Every 12 hours, First dose on [facility] 03/25/25 at 0540, Until Discontinued, Routine And sodium chloride 0.9 % flush 10 mLJump to med 10 mL, Intravenous, As needed, Starting on [facility] 03/25/25 at 0533, Until Sat03/31/25 at 1500, Routine, line care documented in this encounter Additional Health Concerns Active Problems Noted Date Diagnosed Date Autogenerated Problem 03/25/2025 Assessment Noted Time A Body Mass Index follow-up plan has been documented for the patient 03/31/2025 9:36 AM EDT documented as of this encounter Care Teams Auto [employer] Attendant Relationship Specialty Start Date End Date Kiera Csatro APRN [id number] [place] [address] PCP - General 02/17/25 documented as of this encounter
[2025-05-27] VITALS (36 sets, daily range): BP systolic 116–189; BP diastolic 57–90; PULSE 52–72; RESP 13–21; TEMP 36.3–37.1; O2SAT 94–100; BMI 32.1; BMI 31.8
--- NOTE | 2025-05-27 10:17 | ECG_ITS ---
APPROVED REPORT Exam: Resting ECG HR:69 bpm ECG Measurements Heart Rate 69 AXES AK 176 P 55 QRSd 100 QRS 17 QT 413 T 76 QTc 433 Conclusion SINUS RHYTHM NONSPECIFIC ST & T-WAVE ABNORMALITY BORDERLINE ECG UNCONFIRMED REPORT Normal sinus rhythm. Nonspecific T wave inversions in lead V2. No ST elevation or depression. Electronically signed by : GRACE AVILA, 05/28/2025 07:09:50
--- OUTSIDE RECORDS SUMMARY | 2025-05-27 10:26 | XMS_ITS | Encounter Summary ---
Author Organization Healthcare Address [address] [place] [address] Care Team Providers Care Credit And Collections Analyst Name Role Phone Kiera Castro APRN Primary Care Provider [phone] Lucero Stafford LPN Unavailable Unavailable Reason for Visit * Reason Comments TCM Call Encounter Details Date Type Department Care Team (Late Contact Info) Description 04/02/2025 Patient Outreach [facility] [address] [place] [address] Lucero Stafford LPN [employer] [place] [address] TCM Call Social History Tobacco Use Types [...] in the past 12 m [facility], were you homeless or living in a retirement (including now)? No 03/27/2025 Utilities Answer Date Recorded In the past 12 months has th e [employer], gas, oil, or water company threatened to [...] dated 03/31/2025: Patient has been referred to [facility] Home [facility]ound [facility]; RNCMcontacted agency regarding plan for discharge to home today. Williams Rubin with [facility] confirms that documentation has been received, and [facility] has approved this in-home care. documented in this encounter Plan of Treatment Upcoming Encounters Date Type Department Care Team (Late st Contact Info) Description 08/03/2025 12:40 PM EDT Office Visit [facility] [place] [address] [place] [address] Dimitrios Wright MD [address] [place] [address] documented as of this encounter Goals Goal [...] documented as of this encounter Care Teams Credit And Collections Analyst Relationship Specialty Start Date End Date Kiera Castro APRN [address] [place] [address] PCP - General 02/17/25 Lucero Stafford LPN [employer] [place] [place] [address] TCM Nurse 04/01/25 05/01/25 documented as of this encounter
--- OUTSIDE RECORDS SUMMARY | 2025-05-27 10:26 | XMS_ITS | Data Portability ---
Author Organization [facility] Address [address] [place] [address] Care Team Providers Care Icer Machine Operator Name Role Phone ASHLEENEREIDA KHALIF Primary Care Provider Assessment No assessment recorded. Plan of Treatment Reminders Order Date Submit Date Provider Last Modified By Organization Details Last Modified Time Details Appointments None recorded . Lab urinalys is, microsco pic 2019 salazar Not available 0 10:59:46 urinalys is, dipstick 2019 salazar Not available 0 10:59:46 Referral None recorded . Procedures None recorded . Surgeries None recorded . Imaging XR, abdomen 2019 ARELY Not available 0 15:09:20 Medication Orders tamsulos in 0.4 mg capsule 2019 INTERFACE Not available 0 11:34:09 Patient TargetsNo targets recorded. Patient InstructionsNo instructions recorded. Reason for Referral None Reported. Results Created Date Observation Date Name Description Value Unit Range Abnormal Flag Note LastModifiedBy Organization Detail LastModifiedTime 10/10/2010/10/2020 urina lysis , dipst ick Urine Specimen Voided Not Available [facility] [address], [place], [address], 10/10/2020 09:45:59 10/10/20 20 10/10/2020 urina lysis , dipst ick Urine Appearance Clear Not Available Maurisio careyWilliamespinoza [facility] [address], [place], [address], 10/10/2020 09:45:59 10/10/2010/10/2020 urina lysis , dipst ick Urine Color Yellow Not Available [facility] [address], [place], [address], 10/10/2020 09:45:59 10/10/2010/10/2020 urina lysis , dipst ick Urine Blood Negati ve Not Available [facility] [address], [place], [address], 10/10/2020 09:45:59 10/10/2010/10/2020 urina lysis , dipst ick Urine Bilirubin Negati ve Not Available [facility] [address], [place], [address], 10/10/2020 09:45:59 10/10/2010/10/2020 urina lysis , dipst ick Urine Urobilinogen Normal Not Available [facility] [address], [place], [address], 10/10/2020 09:45:59 10/10/20 20 10/10/2020 urina lysis , dipst ick Urine Ketones Negati ve Not Available [facility] [address], [place], [address], 10/10/2020 09:45:59 10/10/2010/10/2020 urina lysis , dipst ick Urine Protein Negati ve Not Available [facility] [address], [place], [address], 10/10/2020 09:45:59 10/10/2010/10/2020 urina lysis , dipst ick Urine Nitrites negati ve Not Available [facility] [address], [place], [address], 10/10/2020 09:45:59 10/10/2010/10/2020 urina lysis , dipst ick Urine Glucose Negati ve Not Available [facility] [address], [place], [address], 10/10/2020 09:45:59 10/10/2010/10/2020 urina lysis , dipst ick Urine pH 6 Not Available [facility] [address], [place], [address], 10/10/2020 09:45:59 10/10/2010/10/2020 urina lysis , dipst ick Urine Specific [place] 1.005 Not Available [facility] [address], [place], [address], 10/10/2020 09:45:59 10/10/2010/10/2020 urina lysis , dipst ick Urine Leukocyte Esterase Negati ve Not Available [facility] [address], [place], [address], 10/10/2020 09:45:59 10/10/2010/10/2020 urina lysis , micro scopi c Urine WBC/hpf Negati ve Not Available [facility] [address], [place], [address], 10/10/2020 09:45:56 10/10/2010/10/2020 urina lysis , micro scopi c Urine RBC/hpf Negati ve Not Available [facility] [address], [place], [address], 10/10/2020 09:45:56 10/10/2010/10/2020 urina lysis , micro scopi c Urine Epithelial Cells Negati ve Not Available [facility] [address], [place], [address], 10/10/2020 09:45:56 10/10/2010/10/2020 urina lysis , micro scopi c Urine Bacteria Negati ve Not Available [facility] [address], [place], [address], 10/10/2020 09:45:56 10/10/2010/10/2020 urina lysis , micro scopi c Urine Mucous Negati ve Not Available [facility] [address], [place], [address], 10/10/2020 09:45:56 10/10/2010/10/2020 urina lysis , micro scopi c Urine Yeast Negati ve Not Available [facility] [address], [place], [address], 10/10/2020 09:45:56 10/10/2009/22/2020 CT, abdom en + pelvi s, w/o contr ast No observ ation record ed. [id number] Not Available 10/10 10:52:28 Result Notes None recorded. Problems Name Problem SNOMED Code Status Onset Date Resolution Date Notes Provider Name and Address Organization Details Recorded Time Hypogonadism 09331281 Active 2015 Not Available [facility] 09:26:27 Impotence Active 2015 Not Available [facility] 09:26:27 Metabolic syndrome X 996529621 Active 2015 Not Available [facility] 09:26:27 Adult-onset obesity 108997089 Active 2015 Not Available [facility] 09:26:27 Loss of hair 263089905 Active 2015 Not Available [facility] 1 09:26:27 Benign prostatic hyperplasia 049926300 Active 2015 Not Available [facility] 1 09:26:27 Kidney stone 79145406 Active 2019 Joel Ku MD [address] [place], [address] , [facility] 0 10:57:45 Calculus of kidney and ureter 805675048 Active 2019 Joel Ku MD [address] [place], [address] , [facility] 0 11:33:43 Problem Notes None recorded. Procedures Surgical History Date Name Laterality Status Provider Name and Address Organization Details Recorded Time 0 KUB + Oblique(s) Addison completed Joel Ku MD [address] [place], [address], [facility] 10/10/2020 15:49:03 Unlisted procedure shoulder completed Neva Javed [facility] 10/10/2020 10:29:29 procedure on neck completed Neva Javed [facility] 10/10/2020 10:29:33 Imaging Results None recorded. Procedure Notes None recorded. Medical Equipment None Reported. Allergies No known drug allergies Medications Name Sig Start Date Stop Date Status Note LastModified by Organization Details LastModified Time atorvastatin 40 mg tablet active Not Available Not Available Not Available hydrocodone 5 mg-acetamino phen 325 mg tablet Take 1 tablet every 6 hours by oral route. active Not Available Not Available No t Available amlodipine 5 mg tablet 10/10 completed Not Available Not Available Not Available triamcinolon e acetonide 0.1 % topical cream 10/10 completed Not Available Not Available Not Available ketorolac 10 mg tablet active Not Available Not Available No t Available oxycodone-ac etaminophen 5 mg-325 mg tablet 10/10 completed Not Available Not Available Not Available tamsulosin 0.4 mg capsule Take 1 capsule every day by oral route at bedtime. 2019 active Not Available Not Available Not Avai lable baclofen 10 mg tablet active Not Available Not Available No t Available amlodipine 10 mg tablet active Not Available Not Available Not Available hydrochlorot hiazide 25 mg tablet active Not Available Not Available No t Available gabapentin 100 mg capsule active Not Available Not Available Not Available albuterol sulfate HFA 90 mcg/actuatio n aerosol inhaler active Not Available Not Available Not Available ondansetron 4 mg disintegrati ng tablet active Not Available Not Available No t Available Vitals Date Recorded Body height Body mass index (BMI) Body weight Body temperature Provider Name and Address Organization Details Last Updated DateTime 10/10/2020 181.61 cm 32.2 kg/m2 308916.6 1 g 97.2 [degF] Neva Javed [facility] 10/10/2020 10:27:56 Social History Question Answer Notes LastModified by Organizat ion Details LastModified Time Tobacco Smoking Status Current Every Day Smoker Neva novoa [facility] 10/10/2020 10:28:47 What Is Your Level Of Caffeine Consumption? Moderate 3 Cups Of Coffee QD Information not available 10/10/2020 Which Illicit Or Recreational Drugs Have You Used? None Information not available 10/10/2020 How Much Tobacco Do You Smoke? 1 PPD Information not available 10/10/2020 Sex: Unknown Functional Status Question Answer Note LastModified by Organizat ion Details LastModified Time What is your level of alcohol consumption? None Information not available 10/10/2020 Do you or have you ever used smokeless tobacco? Never used smokeless tobacco Information not available 10/10/2020 Do you or have you ever used e-cigarettes or vape? Never used electronic cigarettes Information not available 10/10/2020 Mental Status None recorded. Family History Relationship Description Onset Age of this Age Resolved Age Notes LastModified by Organization Details LastModified Time Father No current problems or disability [email or web address] Not available 10:28:39 Mother No current problems or disability [email or web address] Not available 10:28:39 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 Condition Response Kidney Stones Y Hypertension Y Past Encounters Encounter ID Performer Location Encounter Start Date Encounter Closed Date Diagnosis/Indication Diagnosis SNOMED-CT Code Diagnosis ICD10 Code Diagnosis Note [id number] Joel Ku MD [facility] [address] [place] [address] 10/10/2020 09:21:29 10/10/2020 11:56:51 Calculus of kidney and ureter 173459659 N20.2 Bilateral stones and a distal right ureteral stone. Patient has been in the emergency department once here, and once when he was in [place] We reviewed his imaging and natural history of stones. We discussed that for his ureteral stone, we can continue to try to pass it if he does not show any signs of infection, his pain is controllab le, and he can tolerate liquids. Cheyenne kyle, I explained he would require ureterosco py for removal. For the time being the Patient would like to continue with trial of passage. Continue Flomax and oral hydration. Regarding the remainder of his stones, he likely would benefit from ESWL for the right. We would need to discuss more thoroughly for the left lower pole stones given the larges volume and location. Plan to follow-up in 1 month for an x-ray. ED precaution s given Health Concerns Section Related Observation LastModified by Organization Detai ls LastModified Time None Recorded Concern Status LastModified by Organization Details LastModified Time None Recorded Advance Directives Directive None Recorded Payers Insurance Date Sequence Insurance Name Policy Number Policy Cowart Covered Member ID Cowart Member ID Guarantor Name 11/04/2020 1 [facility] (MEDICAID HMO) [id number] Almas Nelson [id number] Almas Nelson Notes Date Note Type Note Provider Name and Address Organization Details Recorded Time 10/10/2020 text/html Kidney StoneReported bypatient.Notes:In ED 09/22/20 with flank pain. Had CT with 5mm [id number]-[id number] right ureteral stone. Was sent home with Flomax. Went to [place] for Thanksgiving. Was in ED again 10/06/20. C/o flank pain, pelvic pressure. NO associated fevers, chills, nausea, vomiting. Was given some Tylenol 3, but not doing so well. Never had stones before. No gross hematuria. I reviewed his imaging. Has right upper pole stone, right 5mm distal stone, left lower pole stones, about 1.5cm. Obtain KUB today to evaluate. Joel Ku MD [address] [place], [address], [place] [facility] 10/10/2020 15:51:31
--- OUTSIDE RECORDS SUMMARY | 2025-05-27 10:26 | XMS_ITS | Encounter Summary ---
Author Organization Healthcare Address [address] [place] [address] Care Team Providers Care Director Writing Name Role Phone Kiera Castro APRN Primary Care Provider [phone] Lucero Stafford LPN Unavailable Unavailable Reason for Visit * Reason Comments TCM Call Encounter Details Date Type Department Care Team (Late Contact Info) Description 04/06/2025 Patient Outreach POPULATION HEALTH [address] [facility] [facility] [place] [address] Lucero Stafford LPN [employer] [place] [address] TCM Call Social History Tobacco Use Types [...] you homeless or living in a senior living (including now)? No 04/06/2025 Utilities Answer Date Recorded In the past 12 months has th e [employer], gas, oil, or water company threatened to [...] or increased pain. States he quit smoking. [facility] [employer] has not been out and reports he [...] nurse call. Action: Reviewed upcoming appointments in [facility] with patient during nurse call. Call placed to [facility]. Spoke with Trent, she states patient did telehealth appointment with them on 04/01/2025 and has a follow up appointment scheduled on 04/08/2025 at 11:30 with their provider. Bijusilvestre states she will have wound care supplies sent to patient MARK and will reach out to patient to make him aware. This nurse called patient back and made him aware [facility] would be calling him and sending wound care supplies out MARK. This nurse also [facility] this afternoon [...] dated 03/31/2025: Patient has been referred to [facility] In- Home Wound Care; RNCMcontacted agency regarding plan for discharge to home today. Williams Rubin with [facility] confirms that documentation has been received, and [facility] has approved this in-home care. documented in this encounter Plan of Treatment Upcoming Encounters Date Type Department Care Team (Late st Contact Info) Description 08/03/2025 12:40 PM EDT Office Visit [facility] [place] [address] [place] [address] Dimitrios Wright MD [address] [place] [address] documented as of this encounter Goals Goal [...] documented as of this encounter Care Teams Director Writing Relationship Specialty Start Date End Date Kiera Castro APRN [address] [place] [address] PCP - General 02/17/25 Lucero Stafford LPN [employer] [place] [address] TCM Nurse 04/01/25 05/01/25 documented as of this encounter
--- OUTSIDE RECORDS SUMMARY | 2025-05-27 10:26 | XMS_ITS | Clinical Summary ---
Author Organization Healthcare Address [address] 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 2. 2 mm aneurysm or infundibulum at [...] Overview (02/22/2025): - Echo 02-15-25 [facility]: EF 45% - post-op EF 50% [...] Tobacco abuse disorder 02/16/2025 Overview (02/22/2025): - group home counselor on smoking cessation Incomplete right bundle [...] 03/02/2025 Overview (02/21/2025): Echo 02-15-25 [facility]: Moderate AI. Moderate (peak gradient velocity 3.2 m/s. Mean AV gradient 22 mmHg. Max gradient 40 mmHg. PETE 1.4 cm sq. 02/21: s/p 4vCABG and bioprosthetic AVR. Aortic valve intact with no significant AI on post TAYLOR. NSTEMI (non-ST elevated myoc ardial infarction) 02/16/2025 03/02/2025 Overview (02/21/2025): S/p 4vCABG on 02/21 Encounters Date Type Department Care Team Description 05/04/2025 Telephone [facility] Cardiothoracic [address], [address] [place] [address] Lata Sahu MD 04/08/2025 Patient Outreach POPULATION [address], [address] [place] [address] Lucero Stafford LPN Follow-up 04/06/2025 Patient Outreach POPULATION [address], [address] [place] [address] Lucero Stafford LPN TCM Call 04/02/2025 Patient Outreach POPULATION [address], [address] [place] [address] Lucero Stafford LPN TCM Call 04/01/2025 Patient Outreach POPULATION [address], [address] [place] [address] Lucero Stafford LPN TCM Call 03/25/2025 5:04 PM EDT Anesthesia Event [facility] Endoscopy [address] [place] [address] Cristofer Delacruz MD Sparks, Starr N, BUCK 03/25/2025 3:17 AM EDT - 03/31/2025 12:30 PM EDT Hospital Encounter [facility] Inpatient [address] [place] [address] Naga Hidalgo MD Sagheer, Iqra, MD Khalid, Muhammad Fahad, MD Wolak, Megan M, MD Acute GI bleeding (Primary Dx); Severe anemia; Generalized weakness; Upper GI bleeding; Persistent atrial fibrillation (CMS/HCC); Duodenal ulcer Discharge Disposition: [place] [facility] [place] Travel 03/17/2025 Travel 03/16/2025 Travel 03/15/2025 Travel 03/14/2025 Travel 03/13/2025 Travel 03/12/2025 3:36 AM EDT - 03/17/2025 2:43 PM EDT Hospital Encounter [facility] Inpatient [address] [place] [id number] Sloane Blake MD Reda, Hassan K, MD Gluteal abscess (Primary Dx); Chest pain, unspecified type; Elevated troponin; Persistent atrial fibrillation (CMS/HCC) Discharge Disposition: Home or Self Care 03/12/2025 Orders Only External Location [address] [place] [address] Provider, External 03/12/2025 Travel 03/03/2025 Telephone [facility]patient [address] [place] [id number] Gia Mcneal 03/02/2025 Travel 03/01/2025 Travel 02/28/2025 Travel 02/27/2025 Travel 02/26/2025 Travel 02/25/2025 Travel 02/16/2025 7:16 PM EDT - 03/02/2025 2:41 PM EDT Hospital Encounter [facility] Inpatient [address] [place] [address] Gerardo Hinds MD Bacon, MD Luis Alberto Reynolds Hassan K, MD CAD, multiple vessel (Primary Dx); Sinus bradycardia; Concentric left ventricular hypertrophy; Edentulous; NSTEMI (non-ST elevated myocardial infarction) (CMS/HCC); Cervical radiculopathy; Tobacco abuse disorder; Hyperlipidemia, unspecified hyperlipidemia type; Hypocalcemia; Aortic valve insufficiency, etiology of cardiac valve disease unspecified; Situational depression; Obesity (BMI 30-39.9); Aortic valve stenosis, etiology of cardiac valve disease unspecified; Chronic obstructive pulmonary disease, unspecified COPD type ([facility]); Anemia, unspecified type; Heart failure with mid-range ejection fraction (HFmEF) ([facility]); Gastroesophageal reflux disease, unspecified whether esophagitis present; Benign prostatic hyperplasia, unspecified whether lower urinary tract symptoms present; Incomplete right bundle branch block; Primary hypertension; Cardiac volume overload; Electrolyte abnormality; Post-op pain; On supplemental oxygen by nasal cannula; S/P AVR; S/P CABG x 4; Obstructive sleep apnea; Gastroesophageal reflux disease without esophagitis; Hypertension, unspecified type; Pulmonary emphysema, unspecified emphysema type ([facility]); Acute hypoxic respiratory failure; Thrombocytopenia ([facility]); Altered mental status, unspecified altered mental status type; Persistent atrial fibrillation ([facility]); Abnormal CT of the head Discharge Disposition: [...] any time in the past 12 m [facility], were you homeless or living in a detention (including now)? No 04/06/2025 Utilities Answer Date [...] Description 08/03/2025 12:40 PM EDT Office Visit [facility] Somis Mayo [address] [facility] [place] [address] Dimitrios Wright MD [address] [place] [address] Health Maintenance Due Date Last Done Comments [...] 2008 [facility]-Abdominal Aortic Aneurysm (AAA) Screening 2023 SGL-[id number]-09 Vaccine ( season) 2024 04/26/2021, 03/29/2021 [facility]-Influenza [...] Moeller, RN Medical Devices Implanted Type Area Shellfish Harvester Device Identifier Shelf Expiration Date Model / Serial / Lot Valve Aortic Inspiris Resilia 29mm - [id number] - [id number] Implanted:Qty: 1 on 02/21/2025 by Lata Sahu MD at [facility]-[id number] 09/22/2029 [id number] / [id number] / [id number] Description:We do not rinse Inspirus Valves. [employer] 4.8mm X 6mm - [id number] Implanted:02/21 by Lata Sahu MD at [facility] (Quantity not on file) [facility]-[id number] / / Pledget Pt[employer] 4.8mm X 6mm - [id number] Implanted:02/21 by Lata Sahu MD at [facility] (Quantity not on file) [place]-[id number] / / Procedures Procedure Name Priority Date/Time [...] 12:42 PM EDT Persistent atrial fibrillation (CMS/HCC) OR CARDIOVERSION, ELECTIVE;FITTING ROOM ASSOCIATE Routine 03/16/2025 12:42 PM EDT Persistent atrial [...] GRAM STAIN Routine 03/12/2025 6:52 AM EDT OR DRAIN SKIN ABSCESS COMPLIC Routine 03/12/2025 5:54 [...] PEP THERAPY Routine 02/25/2025 3:43 PM EDT OR CRITICAL CARE, E/M 30-74 MINUTES Routine 02/25/2025 [...] 1 VIEW Routine 02/25/2025 2:22 AM EDT HEPATITIS C ANTIBODY W/REFLEX TO HCV QUANT PCR Routine 02/21/2025 10:36 PM EDT from Last 3 Months or Most Recently Relevant to Health Maintenance Results * (ABNORMAL) CBC and Differential (03/31/2025 4:17 AM EDT) Only the most recent of7 resultswithin the time period is included. WBC Count 5.55 3.70 - 10.30 10*3/uL LAB HEMATOLOGY METHOD 03/31/2025 4:41 AM EDT [facility] RBC Count 2.57(L) 4.60 - 6.10 10*6/uL LAB HEMATOLOGY METHOD 03/31/2025 4:41 AM EDT [facility] HGB 7.6(L) 13.7 - 17.5 g/dL LAB HEMATOLOGY METHOD 03/31/2025 4:41 AM EDT [facility] HCT 24.7(L) 40.0 - 51.0 % LAB HEMATOLOGY METHOD 03/31/2025 4:41 AM EDT [facility] Platelet Count 218 155 - 369 10*3/uL LAB HEMATOLOGY METHOD 03/31/2025 4:41 AM EDT [facility] MCV 96 79 - 98 fL LAB HEMATOLOGY METHOD 03/31/2025 4:41 AM EDT [facility] MCH 29.6 26.0 - 32.0 pg LAB HEMATOLOGY METHOD 03/31/2025 4:41 AM EDT [facility] MCHC 30.8 30.7 - 35.5 g/dL LAB HEMATOLOGY METHOD 03/31/2025 4:41 AM EDT [facility] RDW 19.1(H) 11.5 - 14.5 % LAB HEMATOLOGY METHOD 03/31/2025 4:41 AM EDT [facility] MPV 10.4 8.8 - 12.5 fL LAB HEMATOLOGY METHOD 03/31/2025 4:41 AM EDT [facility] nRBC 0.0 <=0.0 per 100 WBCs LAB HEMATOLOGY METHOD 03/31/2025 4:41 AM EDT [facility] Differential Type Automated LAB HEMATOLOGY METHOD 03/31/2025 4:41 AM EDT [facility] Neutrophils % 43 % LAB HEMATOLOGY METHOD 03/31/2025 4:41 AM EDT [facility] Lymphocytes % 46 % LAB HEMATOLOGY METHOD 03/31/2025 4:41 AM EDT [facility] Monocytes % 6 % LAB HEMATOLOGY METHOD 03/31/2025 4:41 AM EDT [facility] Eosinophils % 3 % LAB HEMATOLOGY METHOD 03/31/2025 4:41 AM EDT [facility] Basophils % 1 % LAB HEMATOLOGY METHOD 03/31/2025 4:41 AM EDT [facility] Immature Granulocytes % 1 % LAB HEMATOLOGY METHOD 03/31/2025 4:41 AM EDT [facility] Neutrophils Absolute 2.41 1.60 - 6.10 10*3/uL LAB HEMATOLOGY METHOD 03/31/2025 4:41 AM EDT [facility] Lymphocytes Absolute 2.53 1.20 - 3.90 10*3/uL LAB HEMATOLOGY METHOD 03/31/2025 4:41 AM EDT [facility] Monocytes Absolute 0.33 0.30 - 0.90 10*3/uL LAB HEMATOLOGY METHOD 03/31/2025 4:41 AM EDT [facility] Eosinophils Absolute 0.17 0.00 - 0.50 10*3/uL LAB HEMATOLOGY METHOD 03/31/2025 4:41 AM EDT [facility] Basophils Absolute 0.05 0.00 - 0.10 10*3/uL LAB HEMATOLOGY METHOD 03/31/2025 4:41 AM EDT [facility] Immature Granulocytes Absolute 0.06 0.00 - 0.06 10*3/uL LAB HEMATOLOGY METHOD 03/31/2025 4:41 AM EDT [facility] Blood Venous blood specimen / Unknown Venipuncture / Unknown 03/31/2025 4:17 AM EDT 03/31/2025 4:29 AM EDT Narrative [facility] - 03/31/2025 4:41 AM EDT Therapeutic decision making should be based on absolute values, rather than percentages. Yin Christopher MD LAB BLOOD ORDERABLES Fi nal Result Performing Organization Address City/[facility]/ZIP Co de Phone Number [facility] [address] [place] [address] * (ABNORMAL) Magnesium, Plasma (03/31/2025 4:17 AM EDT) Only the most recent of16 resultswithin the time period is included. Magnesium, Plasma 1.7(L) 1.9 - 2.4 mg/dL 03/31/2025 4:57 AM EDT [facility] Blood Venous blood specimen / Unknown Venipuncture / Unknown 03/31/2025 4:17 AM EDT 03/31/2025 4:27 AM EDT Yin Christopher MD LAB BLOOD ORDERABLES Fi nal Result Performing Organization Address City/[facility]/ZIP Co de Phone Number [facility] [address] [place] [address] * (ABNORMAL) Comprehensive Metabolic Panel, Plasma (03/31/2025 4:17 AM EDT) Only the most recent of10 resultswithin the time period is included. Glucose, Plasma 125(H) 74 - 99 mg/dL 03/31/2025 4:57 AM EDT [facility] BUN, Plasma 28(H) 8 - 23 mg/dL 03/31/2025 4:57 AM EDT [facility] Creatinine, Plasma 0.72 0.70 - 1.20 mg/dL 03/31/2025 4:57 AM EDT [facility] BUN/Creatinine Ratio 39 03/31/2025 4:57 AM EDT [facility] Sodium, Plasma 136 136 - 145 mmol/L 03/31/2025 4:57 AM EDT [facility] Potassium, Plasma 4.1 3.6 - 4.9 mmol/L 03/31/2025 4:57 AM EDT [facility] Chloride, Plasma 106 97 - 107 mmol/L 03/31/2025 4:57 AM EDT [facility] CO2, Plasma 22 22 - 29 mmol/L 03/31/2025 4:57 AM EDT [facility] Anion Gap 8 6 - 16 mmol/L 03/31/2025 4:57 AM EDT [facility] Total Calcium, Plasma 8.1(L) 8.9 - 10.2 mg/dL 03/31/2025 4:57 AM EDT [facility] Total Protein 5.0(L) 6.3 - 7.9 g/dL 03/31/2025 4:57 AM EDT [facility] Albumin, Plasma 2.8(L) 3.5 - 5.2 g/dL 03/31/2025 4:57 AM EDT [facility] AST, Plasma 24 10 - 50 U/L 03/31/2025 4:57 AM EDT [facility] ALT, Plasma 14 10 - 50 U/L 03/31/2025 4:57 AM EDT [facility] Alkaline Phosphatase, Plasma 106 40 - 115 U/L 03/31/2025 4:57 AM EDT [facility] Total Bilirubin, Plasma 0.3 0.2 - 1.1 mg/dL 03/31/2025 4:57 AM EDT [facility] eGFRcr 100.8 mL/min/1.7 3m*2 03/31/2025 4:57 AM EDT [facility] Comment:Reported eGFRcr in m L/min/1.73m2 is based the CKD-EPI 2020 equation that does not use a race coefficient. Blood Venous blood specimen / Unknown Venipuncture / Unknown 03/31/2025 4:17 AM EDT 03/31/2025 4:27 AM EDT Yin Christopher MD LAB BLOOD ORDERABLES Fi nal Result Performing Organization Address City/[facility]/ZIP Co [place] [address] * Phosphorus, Plasma (03/30/2025 4:52 AM EDT) Only the most recent of4 resultswithin the time period is included. Phosphorus, Plasma 3.3 2.5 - 4.5 mg/dL 03/30/2025 5:36 AM EDT [facility] Blood Venous blood specimen / Unknown Venipuncture / Unknown 03/30/2025 4:52 AM EDT 03/30/2025 5:04 AM EDT Yin Christopher MD LAB BLOOD ORDERABLES Fi [place] [address] * Transfuse RBC (03/29/2025 12:59 PM EDT) Only the most recent of3 resultswithin the time period is included. Yin Christopher MD BLOOD TRANSFUSION ORDER CASTILLO Final Result * Prepare Leukocyte Reduced RBC: 1 Units (03/29/2025 8:37 AM EDT) Only the most recent of4 resultswithin the time period is included. Product Code [id number] BLOO D BANK Dispense Status Transfused BLOOD BANK Blood Expiration Date [id number] BLOOD BANK Unit Number [id number] B LOOD BANK Product Blood Type 5100 BLOOD BANK Blood Type O+ BLOOD BANK Crossmatch Compatible BLOOD BANK Other Yin Christopher MD BLOOD BANK PRODUCT ORDE RABLES Final Result Performing Organization Address [facility] Co de Phone Number BLOOD BANK [address] [place] [address], * Type and screen (03/29/2025 6:05 AM EDT) Only the most recent of3 resultswithin the time period is included. ABO/Rh O Positive 03/29/2025 5:51 AM EDT BLOOD BANK Antibody Screen Negative 03/29/2025 5:51 AM EDT BLOOD BANK Specimen Expiration 04/01/2025 23:59 03/29/2025 5:51 AM EDT BLOOD BANK Blood Venous blood specimen / Unknown Venipuncture / Unknown 03/29/2025 6:05 AM EDT 03/29/2025 6:16 AM EDT Tete Farfan DO [facility] BLOOD BANK TEST ORDERA BLES Final Result Performing Organization Address [facility] de Phone Number BLOOD [address] * (ABNORMAL) Occult Blood, Fecal by Immunoassay (SO) (03/28/2025 4:18 PM EDT) Occult Blood, Fecal Immunosay Interpretation Positive( A) 03/31/2025 10:15 AM EDT [facility] ([facility]) Stool Non-blood Collection / Unknown 03/28/2025 4:18 PM EDT 03/28/2025 4:27 PM EDT Narrative [facility] ([facility]) - 03/31/2025 10:15 AM EDT INTERPRETIVE INFORMATION: Fecal Occult Blood by Immunoassay No single cutoff provides superior colorectal cancer detection rates. The test gastroenterology teacher recommends the use of a 100 ng/mL cutoff that produces a specificity of approximately 95 percent for the detection of lower gastrointestinal bleeding. This test does not detect upper gastrointestinal bleeding. Performed By: [facility] [address] [place] [address] Diesel Maintenance Electrician: Wilfrid Carr MD, PhD CLIA Number: [id number] us Ramez Ma APRN, DNP LAB REF LAB BLOOD AND FLUID ORD Final Result Performing Organization Address City/[facility]/ZIP Co de Phone Number [facility] ([facility]) [address] [place] [address] * Helicobacter pylori Antigen (03/28/2025 4:18 PM EDT) Pathologist [facility] Helicobacter pylori Antigen Result Negative Negative 03/28/2025 5:39 PM EDT [facility] Stool Rectum structure / Unknown Non-blood Collection / Unknown 03/28/2025 4:18 PM EDT 03/28/2025 4:33 PM EDT us Yin Christopher MD LAB MICROBIOLOGY - GENE RAL ORDERABLES Final Result [facility] [address] [place] [address] * (ABNORMAL) CBC W/O Differential (03/28/2025 12:15 PM EDT) Only the most recent of14 resultswithin the time period is included. Pathologist [facility] WBC Count 6.21 3.70 - 10.30 10*3/uL LAB HEMATOLOGY METHOD 03/28/2025 12:29 PM EDT [facility] RBC Count 2.38(L) 4.60 - 6.10 10*6/uL LAB HEMATOLOGY METHOD 03/28/2025 12:29 PM EDT [facility] HGB 7.0(L) 13.7 - 17.5 g/dL LAB HEMATOLOGY METHOD 03/28/2025 12:29 PM EDT [facility] HCT 22.6(L) 40.0 - 51.0 % LAB HEMATOLOGY METHOD 03/28/2025 12:29 PM EDT [facility] Platelet Count 215 155 - 369 10*3/uL LAB HEMATOLOGY METHOD 03/28/2025 12:29 PM EDT [facility] MCV 95 79 - 98 fL LAB HEMATOLOGY METHOD 03/28/2025 12:29 PM EDT [facility] MCH 29.4 26.0 - 32.0 pg LAB HEMATOLOGY METHOD 03/28/2025 12:29 PM EDT [facility] MCHC 31.0 30.7 - 35.5 g/dL LAB HEMATOLOGY METHOD 03/28/2025 12:29 PM EDT [facility] RDW 21.1(H) 11.5 - 14.5 % LAB HEMATOLOGY METHOD 03/28/2025 12:29 PM EDT [facility] MPV 10.3 8.8 - 12.5 fL LAB HEMATOLOGY METHOD 03/28/2025 12:29 PM EDT [facility] nRBC 0.0 <=0.0 per 100 WBCs LAB HEMATOLOGY METHOD 03/28/2025 12:29 PM EDT [facility] Blood Venous blood specimen / Unknown Venipuncture / Unknown 03/28/2025 12:15 PM EDT 03/28/2025 12:22 PM EDT us Yin Christopher MD LAB BLOOD ORDERABLES Fi nal Result [facility] [address] [place] [address] * (ABNORMAL) Hemoglobin and Hematocrit, Blood (03/28/2025 12:32 AM EDT) Only the most recent of12 resultswithin the time period is included. HGB 7.1(L) 13.7 - 17.5 g/dL LAB HEMATOLOGY METHOD 03/28/2025 1:01 AM EDT [facility] HCT 22.7(L) 40.0 - 51.0 % LAB HEMATOLOGY METHOD 03/28/2025 1:01 AM EDT [facility] Blood Venous blood specimen / Unknown Venipuncture / Unknown 03/28/2025 12:32 AM EDT 03/28/2025 12:45 AM EDT us Ramez Ma APRN, DNP LAB BLOOD ORDERAB LES Final Result [facility] [address] [place] [address] * (ABNORMAL) Basic metabolic panel (03/26/2025 12:17 AM EDT) Only the most recent of5 resultswithin the time period is included. Glucose, Plasma 99 74 - 99 mg/dL 03/26/2025 12:54 AM EDT [facility] BUN, Plasma 24(H) 8 - 23 mg/dL 03/26/2025 12:54 AM EDT [facility] Creatinine, Plasma 0.75 0.70 - 1.20 mg/dL 03/26/2025 12:54 AM EDT [facility] BUN/Creatinine Ratio 32 03/26/2025 12:54 AM EDT [facility] Sodium, Plasma 137 136 - 145 mmol/L 03/26/2025 12:54 AM EDT [facility] Potassium, Plasma 4.1 3.6 - 4.9 mmol/L 03/26/2025 12:54 AM EDT [facility] Chloride, Plasma 107 97 - 107 mmol/L 03/26/2025 12:54 AM EDT [facility] CO2, Plasma 19(L) 22 - 29 mmol/L 03/26/2025 12:54 AM EDT [facility] Anion Gap 11 6 - 16 mmol/L 03/26/2025 12:54 AM EDT [facility] Total Calcium, Plasma 7.9(L) 8.9 - 10.2 mg/dL 03/26/2025 12:54 AM EDT [facility] eGFRcr 99.5 mL/min/1.7 3m*2 03/26/2025 12:54 AM EDT [facility] Comment:Reported eGFRcr in m L/min/1.73m2 is based the CKD-EPI 2020 equation that does not use a race coefficient. Blood Venous blood specimen / Unknown Venipuncture / Unknown 03/26/2025 12:17 AM EDT 03/26/2025 12:26 AM EDT us Ramez N Maduoctavio GIS ANALYST, DNP LAB BLOOD ORDERAB LES Final Result [facility] [address] [place] [address] * EGD MEAGAN AGGARWAL; 03/25/2025 (03/25/2025 5:22 [...] abdominal pain, fever, gastrointestinal bleeding and call electrician second GI if present. - Findings and recommendations were discussed with patient. - Findings and recommendations to be conveyed to primary team. Indication Acute GI bleeding Medications See anesthesia record for anesthesia administered medications. Staff Staff Role Elbert Monreal CRNA CRNA Hansberry, Jolynn Endo Water Quality Manager Betsy Ellis RN Endo Nurse Meagan Aggarwal [...] 74(H) <19 ng/L 03/25/2025 9:14 AM EDT [facility] Troponin Delta 3 <10 ng/L 03/25/2025 9:14 AM EDT [facility] Troponin Delta Interpretation Not Significant 03/25/2025 9:14 AM EDT [facility] Comment:Not Significant. No acute change in troponin observed between the baseline and 2 hour samples. Blood Venous blood specimen / Unknown Venipuncture / Unknown 03/25/2025 8:28 AM EDT 03/25/2025 8:44 AM EDT Ramez Ma APRN, JESSE LAB BLOOD ORDERAB LES Final Result [facility] [address] [place] [address] * (ABNORMAL) Troponin T, High Sensitivity, 0 Hour Plasma, Reflex to 2 Hour (03/25/2025 6:23 AM EDT) Only the most recent of3 resultswithin the time period is included. Troponin T, High Sensitivity, 0 Hour 77(H) <19 ng/L 03/25/2025 6:58 AM EDT [facility] Blood Venous blood specimen / Unknown Venipuncture / Unknown 03/25/2025 6:23 AM EDT 03/25/2025 6:29 AM EDT us Ramezgucci Ma APRN, JESSE LAB BLOOD ORDERAB LES Final Result Performing Organization Address City/[facility]/ZIP Co de Phone Number [facility] [address] [place] [address] * Lactate, venous (03/25/2025 6:23 AM EDT) Pathologist [facility] Lactate, Venous, Whole Blood 0.8 0.5 - 2.2 mmol/L LAB HEMATOLOGY METHOD 03/25/2025 6:28 AM EDT [facility] Blood Venous blood specimen / Unknown Venipuncture / Unknown 03/25/2025 6:23 AM EDT 03/25/2025 6:27 AM EDT us Ramezgucci Ma APRN, JESSE LAB BLOOD ORDERAB LES Final Result Performing Organization Address City/[facility]/ZIP Co de Phone Number [facility] [address] [place] [address] * Haptoglobin (03/25/2025 6:23 AM EDT) Pathologist [facility] Haptoglobin, Serum 167 40 - 219 mg/dL 03/25/2025 6:59 AM EDT [facility] Blood Venous blood specimen / Unknown Venipuncture / Unknown 03/25/2025 6:23 AM EDT 03/25/2025 6:29 AM EDT us Ramezgucci Ma APRN, JESSE LAB BLOOD ORDERAB LES Final Result Performing Organization Address City/[facility] Co [place] [address] * (ABNORMAL) Iron & Total Iron Binding Capacity, Plasma (Includes Transferrin) (03/25/2025 3:36 AM EDT) Only the most recent of2 resultswithin the time period is included. Iron, Plasma 81 50 - 170 ug/dL 03/25/2025 6:04 AM EDT [facility] Transferrin, Plasma 195(L) 200 - 360 mg/dL 03/25/2025 6:04 AM EDT [facility] Total Iron Binding Capacity, Plasma 244 240 - 450 ug/mL 03/25/2025 6:04 AM EDT [facility] Transferrin Saturation 33 14 - 50 % 03/25/2025 6:04 AM EDT [facility] Blood Venous blood specimen / Unknown Venipuncture / Unknown 03/25/2025 3:36 AM EDT 03/25/2025 3:50 AM EDT us Ramezluz Ma APRN, DNP LAB BLOOD ORDERAB LES Final Result Performing Organization Address City/[facility] Co de Phone Number [facility] [address] [place] [address] * C-reactive protein (03/25/2025 3:36 AM EDT) Only the most recent of3 resultswithin the time period is included. CRP, Plasma 6.3 <=8.0 mg/L 03/25/2025 6:04 AM EDT [facility] Blood Venous blood specimen / Unknown Venipuncture / Unknown 03/25/2025 3:36 AM EDT 03/25/2025 3:50 AM EDT Narrative [facility] - 03/25/2025 6:04 AM EDT This CRP test is appropriate for assessment of infection, systemic inflammation and/or tissue injury. To assess cardiovascular disease risk order high sensitivity CRP (CRPH). us Ramezgucci Ma GIS ANALYST, DNP LAB BLOOD ORDERAB LES Final Result Performing Organization Address City/[facility]/ZIP Co de Phone Number [facility] [address] [place] [address] * (ABNORMAL) Hepatic function panel (03/25/2025 3:36 AM EDT) Conjugated Bilirubin, Plasma 0.5(H) <=0.3 mg/dL 03/25/2025 4:22 AM EDT [facility] Alkaline Phosphatase, Plasma 74 40 - 115 U/L 03/25/2025 4:22 AM EDT [facility] Total Bilirubin, Plasma 1.0 0.2 - 1.1 mg/dL 03/25/2025 4:22 AM EDT [facility] Albumin, Plasma 2.7(L) 3.5 - 5.2 g/dL 03/25/2025 4:22 AM EDT [facility] Total Protein 5.1(L) 6.3 - 7.9 g/dL 03/25/2025 4:22 AM EDT [facility] ALT, Plasma 21 10 - 50 U/L 03/25/2025 4:22 AM EDT [facility] AST, Plasma 26 10 - 50 U/L 03/25/2025 4:22 AM EDT [facility] Blood Venous blood specimen / Unknown Venipuncture / Unknown 03/25/2025 3:36 AM EDT 03/25/2025 3:50 AM EDT us Naga Hidalgo MD LAB BLOOD ORDERABLES Final Re sult [facility] [address] [place] [address] * ECG Adult (03/25/2025 3:31 AM EDT) Only the most recent of2 resultswithin the time period is included. EKG DIAGNOSIS CLASS Abnormal MUSE ECG Ventricular Rate 62 BPM MUSE ECG Atrial Rate 62 BPM MUSE ECG OR Interval 182 ms MUSE ECG QRSD Interval 94 ms MUSE ECG QT Interval 450 ms MUSE ECG QTC Interval 456 ms MUSE ECG P [place] 69 degrees MUSE ECG R [place] 42 degrees MUSE ECG T Wave [place] 138 degrees MUSE ECG Diagnosis Normal sinus rhythm MUSE ECG Diagnosis ST & T wave abnormality, consider anterolateral ischemia MUSE ECG Diagnosis Consider ACUTE CORONARY SYNDROME (ACS) MUSE ECG Diagnosis Abnormal ECG MUSE ECG Diagnosis MUSE ECG Diagnosis Confirmed by Ramone Marie ([id number]) on 03/25/2025 10:29:53 AM MUSE ECG 03/25/2025 3:31 AM EDT 03/25/2025 10:29 AM EDT us Naga Hidalgo MD ECG ORDERABLES Final Result Performing Organization Address [facility]/ZIP Co de Phone Number MUSE ECG * Procalcitonin (03/25/2025 3:29 AM EDT) Procalcitonin, Plasma 0.08 <0.09 ng/mL 03/25/2025 6:09 AM EDT [facility] Blood Venous blood specimen / Unknown Venipuncture / Unknown 03/25/2025 3:29 AM EDT 03/25/2025 3:50 AM EDT Narrative [facility] - 03/25/2025 6:09 [...] predict 28 day mortality risk. Please consult [email or web address]-[email or web address] for more information. Test performed at [facility]. us Ramez Ma APRN, DNP LAB BLOOD ORDERAB LES Final Result [facility] [address] [place] [address] * (ABNORMAL) N-Terminal Probnp (03/25/2025 3:29 AM EDT) Only the most recent of5 resultswithin the time period is included. N-Terminal, PROBNP, Plasma 1,495(H) 0 - 899 pg/mL 03/25/2025 6:09 AM EDT [facility] Blood Venous blood specimen / Unknown Venipuncture / Unknown 03/25/2025 3:29 AM EDT 03/25/2025 3:50 AM EDT us Ramez Ma APRN, JESSE LAB BLOOD ORDERAB LES Final Result Performing Organization Address [facility] Co de Phone Number [facility] [address] [place] [address] * (ABNORMAL) PT-INR (03/25/2025 3:29 AM EDT) Prothrombin Time 20.1(H) 12.0 - 14.3 sec 03/25/2025 3:47 AM EDT [facility] INR 1.7(H) 0.9 - 1.1 03/25/2025 3:47 AM EDT [facility] Blood Venous blood specimen / Unknown Venipuncture / Unknown 03/25/2025 3:29 AM EDT 03/25/2025 3:32 AM EDT Narrative [facility] - 03/25/2025 3:47 AM EDT OPTIMAL INR RANGES FOR PATIENT ON ORAL ANTICOAGULANT THERAPY Prevention of venous thromboembolism INR 2.0 to 3.0 In patients with heart disease: Atrial fibrillation INR 2.0 to 3.0 Valvular heart disease INR 2.0 to 3.0 Tissue heart valves INR 2.0 to 3.0 Mechanical prosthetic valves INR 2.5 to 3.5 Prevention of recurrent WA INR 2.5 to 3.5 us Naga Hidalgo MD LAB BLOOD ORDERABLES Final Re sult Performing Organization Address [facility]/ZIP Co de Phone Number [facility] [address] [place] [address] * (ABNORMAL) Reticulocytes (03/25/2025 3:29 AM EDT) Reticulocyte Absolute 214.2(H) 40.0 - 110.0 10*3/uL LAB HEMATOLOGY METHOD 03/25/2025 5:46 AM EDT [facility] Immature Reticulocyte Fraction 43.1(H) 3.1 - 17.6 % LAB HEMATOLOGY METHOD 03/25/2025 5:46 AM EDT [facility] Reticulocyte Hemoglobin 29.9 28 - 38 pg LAB HEMATOLOGY METHOD 03/25/2025 5:46 AM EDT [facility] Reticulocyte Count 8.50(H) 0.90 - 2.50 % LAB HEMATOLOGY METHOD 03/25/2025 5:46 AM EDT [facility] Blood Venous blood specimen / Unknown Venipuncture / Unknown 03/25/2025 3:29 AM EDT 03/25/2025 3:32 AM EDT us Ramez N Madujibeya GIS ANALYST, DNP LAB BLOOD ORDERAB LES Final Result Performing Organization Address City/[facility]/ZIP Co de Phone Number [facility] [address] [place] [address] * Lactate dehydrogenase (03/25/2025 3:29 AM EDT) LDH, Plasma 236 116 - 250 U/L 03/25/2025 6:09 AM EDT [facility] Blood Venous blood specimen / Unknown Venipuncture / Unknown 03/25/2025 3:29 AM EDT 03/25/2025 3:50 AM EDT us Ramez N Ainl JARRELLN, DNP LAB BLOOD ORDERAB LES Final Result Performing Organization Address City/[facility]/ZIP Co de Phone Number [facility] [address] [place] [address] * XR Chest 1 View (03/17/2025 5:20 AM EDT) Only the most recent of12 resultswithin the time period is included. Anatomical [...] MD on 03/17/2025 7:38 AM Marily Garcia GIS ANALYST IMG XR PROCEDURES Final Resu lt * OR CARDIOVERSION, ELECTIVE;FITTING ROOM ASSOCIATE, HC CARDIOVERSION ELECTIVE ARRHYTHMIA EXTERNAL (03/16/2025 12:42 PM EDT) Narrative Dimitrios Wright MD - 03/16/2025 12:42 PM EDT Dimitrios Wright MD 03/17/2025 8:03 AM Electrical Cardioversion Performed by: Negrito Galvan MD Authorized by: Lata Sahu MD Consent: Consent obtained: Written Consent given by: Patient Risks, benefits, and alternatives were discussed: yes Risks discussed: Cutaneous burn, induced arrhythmia, and pain Alternatives discussed: Rate-control medication Urich protocol: Procedure explained and questions answered to [...] was reviewed interactively on an advanced workstation (Suncore) capable of 2 and 3 dimensional displays [...] Data was reviewed interactively on an advanced workstation(Suncore) capable of 2 and 3 dimensional displays [...] Luisa Pinto on 03/16/2025 10:24 AM Mellisa Blake Jaylan SPANN IMG CT PROCEDURES Final Result * ECHO, [...] Root Diam 35 mm GUILLERMINA ISCV PA OR(ACCEL) 25.9 mmHg GUILLERMINA ISCV LVLs ap2 8.1 [...] WOUND Light Growth 03/16/2025 10:40 AM EDT [facility] CULTURE READING WOUND 1+ Biotype 1 Escherichia coli(A) DUSTIN 03/16/2025 10:40 AM EDT [facility] Comment: This isolate has been identified using the FDA Approved [employer] System The organism value for this result has been updated. These results have been appended to the previously preliminary verified report. Edited result: Previously reported as Gram Negative Cam on 03/14/2025 at 0735 EDT. CULTURE READING WOUND 1+ Schaalia turicensis (formerly known as Actinomyces turicensis)(A) DUSTIN 03/16/2025 10:40 AM EDT [facility] Comment: This isolate has been identified using the FDA Approved [employer] System The organism value for this result has been updated. These results have been appended to the previously preliminary verified report. CULTURE READING WOUND 1+ Biotype 2 Escherichia coli(A) DUSTIN 03/16/2025 10:40 AM EDT [facility] Comment: The organism value for this result has been updated. These results have been appended to the previously preliminary verified report. Edited result: Previously reported as Gram Negative Cam on 03/15/2025 at 1158 EDT. Gram Stain Result Moderate Polymorphonuclear leukocytes(A) 03/16/2025 10:40 AM EDT [facility] Gram Stain Result Moderate Gram positive cocci in pairs(A) 03/16/2025 10:40 AM EDT [facility] Gram Stain Result Few Gram negative diplococci(A) 03/16/2025 10:40 AM EDT [facility] Swab Skin and/or subcutaneous [...] MICROBIOLOGY - GENERA L ORDERABLES Final Result [facility] [address] [place] [address] * OR DRAIN SKIN ABSCESS COMPLIC (03/12/2025 5:54 AM [...] No treatment, delayed treatment and alternative treatment Urich protocol: Procedure explained and questions answered to [...] 1.32 <2.00 IU/mL 03/12/2025 4:15 AM EDT [facility] Blood Venous blood specimen / Unknown Venipuncture / Unknown 03/12/2025 3:59 AM EDT 03/12/2025 4:01 AM EDT Narrative [facility] - 03/12/2025 4:15 AM EDT Therapeutic Range: LMWH enoxaparin 1mg/kg/dose, 12hrs - peak (3-5 hours after dose): 0.5 - 1.0 IU/mL LMWH enoxaparin 1.5mg/kg/dose, 24hrs - peak (3-5 hours after dose): 1.0 - 2.0 IU/mL LMWH enoxaparin prophylaxis: Not established us Sloane Baum LAB BLOOD ORDERABLES Final Resul t Performing Organization Address City/[facility] Co de Phone Number [facility] [address] [place] [address] * (ABNORMAL) Lipase (03/12/2025 3:59 AM EDT) Lipase, Plasma 17(L) 19 - 63 U/L 03/12/2025 4:35 AM EDT [facility] Blood Venous blood specimen / Unknown Venipuncture / Unknown 03/12/2025 3:59 AM EDT 03/12/2025 4:04 AM EDT us Sloane Baum LAB BLOOD ORDERABLES Final Resul t Performing Organization Address City/[facility]/ZIP [place] [address] * POC Imaging (03/12/2025) Anatomical Region Laterality Modality Pelvis Other 03/12/2025 us External Provider IMG POINT OF CARE ULTRASOUND F inal Result * POCT glucose meter (03/02/2025 11:30 AM EDT) Only the most recent of10 resultswithin the time period is included. [facility] POCT Glucose 98 74 - 99 mg/dL 03/02/2025 11:31 AM EDT [facility] Comment:Accuracy of a glucos e [...] Comment 03/02/2025 11:31 AM EDT [facility] Stationary Plant Operators ID Catalina Leonardo 025 11:31 AM EDT [facility] Device ID [id number] 03/02/2025 11:31 AM EDT [facility] Specimen Type POC Capillary 03/02/2025 11:31 AM EDT [facility] Blood Capillary blood specimen / Unknown 03/02/2025 11:30 AM EDT 03/02/2025 11:31 AM EDT us Lata Sahu MD LAB POINT OF CARE TE ST DOCKED DEVICE UNSOLICITED RESULTS Final Result Performing Organization Address City/State/[facility] Co de Phone Number [facility] [address] [place] [address] * (ABNORMAL) Renal Function Panel, Plasma (03/02/2025 12:20 AM EDT) Only the most recent of4 resultswithin the time period is included. [facility] Glucose, Plasma 93 74 - 99 mg/dL 03/02/2025 1:21 AM EDT [facility] BUN, Plasma 28(H) 8 - 23 mg/dL 03/02/2025 1:21 AM EDT [facility] Creatinine, Plasma 0.63(L) 0.70 - 1.20 mg/dL 03/02/2025 1:21 AM EDT [facility] BUN/Creatinine Ratio 44 03/02/2025 1:21 AM EDT [facility] Sodium, Plasma 134(L) 136 - 145 mmol/L 03/02/2025 1:21 AM EDT [facility] Potassium, Plasma 3.9 3.6 - 4.9 mmol/L 03/02/2025 1:21 AM EDT [facility] Chloride, Plasma 102 97 - 107 mmol/L 03/02/2025 1:21 AM EDT [facility] CO2, Plasma 18(L) 22 - 29 mmol/L 03/02/2025 1:21 AM EDT [facility] Anion Gap 14 6 - 16 mmol/L 03/02/2025 1:21 AM EDT [facility] Total Calcium, Plasma 8.3(L) 8.9 - 10.2 mg/dL 03/02/2025 1:21 AM EDT [facility] Phosphorus, Plasma 3.2 2.5 - 4.5 mg/dL 03/02/2025 1:21 AM EDT [facility] Albumin, Plasma 2.9(L) 3.5 - 5.2 g/dL 03/02/2025 1:21 AM EDT [facility] eGFRcr 104.9 mL/min/1.7 3m*2 03/02/2025 1:21 AM EDT [facility] Comment:Reported eGFRcr in m L/min/1.73m2 is based the CKD-EPI 2020 equation that does not use a race coefficient. Blood Venous blood specimen / Unknown Venipuncture / Unknown 03/02/2025 12:20 AM EDT 03/02/2025 12:27 AM EDT Chuy SANDOVAL LAB BLOOD ORDERABLES Final Result [facility] [address] [place] [address] * XR Chest 2 Views (03/01/2025 4:58 [...] signing this report, I, the attending physician, [email or web address] I have personally reviewed the images/data for the aboveexamination(s) and agree with the final edited report. Drafted by Miki Padron MD on 03/01/2025 8:57 AM Final report signed by Mauro Paredes MD on 03/01/2025 10:09 AM Chuy SANDOVAL IMG XR PROCEDURES Final Res ult * OR CRITICAL CARE, E/M 30-74 MINUTES (02/25/2025 12:48 [...] nursing services were present on rounds. us Joy Fleming GIS ANALYST, PEDIATRIC CRITICAL CARE NURSE, DNP IN CLINIC/BEDSIDE ORDERABLES Final Result * [...] MD on 02/25/2025 3:08 PM Joy Fleming GIS ANALYST, PEDIATRIC CRITICAL CARE NURSE, DNP IMG XR PROCEDURES Final Result * (ABNORMAL) Blood gas panel with oximetry, mixed venous (02/25/2025 3:39 AM EDT) pH, Mixed Venous 7.44(H) 7.32 - 7.43 LAB HEMATOLOGY METHOD 02/25/2025 3:58 AM EDT [facility] pCO2, Mixed Venous 36(L) 40 - 55 mmHg LAB HEMATOLOGY METHOD 02/25/2025 3:58 AM EDT [facility] pO2, Mixed Venous 31 25 - 40 mmHg LAB HEMATOLOGY METHOD 02/25/2025 3:58 AM EDT [facility] SO2, Measured, Mixed Venous 54(L) 65 - 80 % LAB HEMATOLOGY METHOD 02/25/2025 3:58 AM EDT [facility] Bicarbonate, Calculated, Mixed Venous 25 22 - 26 mmol/L LAB HEMATOLOGY METHOD 02/25/2025 3:58 AM EDT [facility] Base Excess, Mixed Venous 0.8 -2.0 - 3.0 mmol/L LAB HEMATOLOGY METHOD 02/25/2025 3:58 AM EDT [facility] Hematocrit, Whole Blood 29.0(L) 40.0 - 51.0 % LAB HEMATOLOGY METHOD 02/25/2025 3:58 AM EDT [facility] Sodium, Whole Blood 141 136 - 145 mmol/L LAB HEMATOLOGY METHOD 02/25/2025 3:58 AM EDT [facility] Potassium, Whole Blood 3.6 3.6 - 4.9 mmol/L LAB HEMATOLOGY METHOD 02/25/2025 3:58 AM EDT [facility] Chloride, Whole Blood 106 97 - 107 mmol/L LAB HEMATOLOGY METHOD 02/25/2025 3:58 AM EDT [facility] Ionized Calcium, Whole Blood 4.5(L) 4.6 - 5.1 mg/dL LAB HEMATOLOGY METHOD 02/25/2025 3:58 AM EDT [facility] Glucose, Whole Blood 93 74 - 99 mg/dL LAB HEMATOLOGY METHOD 02/25/2025 3:58 AM EDT [facility] Oxyhemoglobin, Mixed Venous, Whole Blood 52.6 40.0 - 70.0 % LAB HEMATOLOGY METHOD 02/25/2025 3:58 AM EDT [facility] Hemoglobin Reduced, Mixed Venous, Whole Blood 45.1 % LAB HEMATOLOGY METHOD 02/25/2025 3:58 AM EDT [facility] Total Hemoglobin, Mixed Venous, Whole Blood 9.5(L) 13.7 - 17.5 g/dL LAB HEMATOLOGY METHOD 02/25/2025 3:58 AM EDT [facility] Blood Mixed venous blood specimen / Unknown Venipuncture / Unknown 02/25/2025 3:39 AM EDT 02/25/2025 3:55 AM EDT us Lata Sahu MD LAB BLOOD ORDERABLES Final Resu lt [facility] [address] [place] [address] * (ABNORMAL) Blood gas, arterial (02/25/2025 3:33 AM EDT) [facility] pH, Arterial 7.48(H) 7.31 - 7.42 LAB HEMATOLOGY METHOD 02/25/2025 3:59 AM EDT [facility] pCO2, Arterial 31(L) 32 - 45 mmHg LAB HEMATOLOGY METHOD 02/25/2025 3:59 AM EDT [facility] pO2, Arterial 72(L) >80 mmHg LAB HEMATOLOGY METHOD 02/25/2025 3:59 AM EDT [facility] SO2, Measured, Arterial 96 94 - 98 % LAB HEMATOLOGY METHOD 02/25/2025 3:59 AM EDT [facility] Base Excess, Arterial 0.0 -2.0 - 3.0 mmol/L LAB HEMATOLOGY METHOD 02/25/2025 3:59 AM EDT [facility] Bicarbonate, Calculated, Arterial 23 22 - 26 mmol/L LAB HEMATOLOGY METHOD 02/25/2025 3:59 AM EDT [facility] Hematocrit, Whole Blood 28.5(L) 40.0 - 51.0 % LAB HEMATOLOGY METHOD 02/25/2025 3:59 AM EDT [facility] Sodium, Whole Blood 140 136 - 145 mmol/L LAB HEMATOLOGY METHOD 02/25/2025 3:59 AM EDT [facility] Potassium, Whole Blood 3.6 3.6 - 4.9 mmol/L LAB HEMATOLOGY METHOD 02/25/2025 3:59 AM EDT [facility] Chloride, Whole Blood 107 97 - 107 mmol/L LAB HEMATOLOGY METHOD 02/25/2025 3:59 AM EDT [facility] Glucose, Whole Blood 91 74 - 99 mg/dL LAB HEMATOLOGY METHOD 02/25/2025 3:59 AM EDT [facility] Ionized Calcium, Whole Blood 4.5(L) 4.6 - 5.1 mg/dL LAB HEMATOLOGY METHOD 02/25/2025 3:59 AM EDT [facility] Lactate, Arterial, Whole Blood 1.2 0.5 - 1.6 mmol/L LAB HEMATOLOGY METHOD 02/25/2025 3:59 AM EDT [facility] Blood Arterial blood specimen / Unknown Arterial Puncture / Unknown 02/25/2025 3:33 AM EDT 02/25/2025 3:55 AM EDT us Ramandeep Sunshine APRN LAB BLOOD ORDERABLES Final Result [facility] [address] [place] [address] * Hepatitis C antibody (02/21/2025 10:36 PM EDT) Hepatitis C Antibody Negative Negative 02/21/2025 11:38 PM EDT [facility] Blood Venous blood specimen / Unknown Venipuncture / Unknown 02/21/2025 10:36 PM EDT 02/21/2025 10:49 PM EDT us Jolene Montes De Oca MD LAB BLOOD ORDERABLES Final Result Performing Organization Address City/[facility] Co de Phone Number [facility] [address] [place] [address] from Last 3 Months or Most Recently Relevant to Health Maintenance Additional Health Concerns Active Problems Noted Date Diagnosed Date Autogenerated Problem 03/25/2025 Insurance [facility] MEDICARE [facility] MEDICAID Advance Directives * Full Code [...] 7:33 PM 02/21/2025 9:54 PM Care Teams Arson Investigator Relationship Specialty Start Date End Date iKera Castro APRN [address] [place] [address] PCP - General 02/17/25
--- OUTSIDE RECORDS SUMMARY | 2025-05-27 10:26 | XMS_ITS | Encounter Summary ---
Author Organization Healthcare Address [address] [place] [address] Care Team Providers Care Hr Manager Name Role Phone Kiera Castro APRN Primary Care Provider [phone] Encounter Details Date Type Department Care Team (Late st Contact Info) Description 05/04/2025 Telephone [facility] [address], [address] [place] [address] Lata Sahu MD [address] [place] [address] Social History Tobacco Use Types [...] any time in the past 12 m [facility], were you homeless or living in a long term (including now)? No 04/06/2025 Utilities Answer Date [...] Description 08/03/2025 12:40 PM EDT Office Visit [facility] Jachin Mayo [address] [place] [address] Dimitrios Wright MD [address] [place] [id number] documented as of this encounter Goals Goal [...] documented as of this encounter Care Teams Hr Manager Relationship Specialty Start Date End Date Kiera Castro, WARRANTY COORDINATOR [address] [place] [address] PCP - General 02/17/25 documented as of this encounter
--- OUTSIDE RECORDS SUMMARY | 2025-05-27 10:26 | XMS_ITS ---
Author Organization Healthcare Address [address] [place] [address] Care Team Providers Care Pharmaceutical Sales Name Role Phone Kiera Castro APRN Primary Care Provider [phone] Transitional Care Management Status:Closed (Closed) Start date:04/01/2025 Enrollment date:04/06/2025 Enrollment reason:Identified using hospital discharge data End date:05/01/2025 Close reason:Patient graduated Overview This episode type is for outpatient care managers enrolling patients in the [facility] Transitional Care Management program. Continued Care and Services Coordination
--- OUTSIDE RECORDS SUMMARY | 2025-05-27 10:26 | XMS_ITS | Encounter Summary ---
Author Organization Healthcare Address [address] [place] [address] Care Team Providers Care Dedicated Intermodal Truck Driver Name Role Phone Kiera Castro APRN Primary Care Provider Lucero Stafford LPN Unavailable Unavailable Reason for Visit * Reason Comments Follow-up Encounter Details Date Type Department Care Team (Late Contact Info) Description 04/08/2025 Patient Outreach [facility] [address] [place] [address] Lucero Stafford LPN [employer] [place] [address] Follow-up Social History Tobacco Use Types Packs/Day [...] [place] [facility] (including now)? No 04/06/2025 Utilities Answer Date Recorded In the past 12 months has th e [employer], gas, oil, or water company threatened to [...] Description 08/03/2025 12:40 PM EDT Office Visit [facility] Absaraka Mayo [address] [place] [address] Dimitrios Wright MD [address] [place] [phone] documented as of this encounter Goals Goal [...] documented as of this encounter Care Teams Dedicated Intermodal Truck Driver Relationship Specialty Start Date End Date Kiera Castro APRN [address] [place] [address] PCP - General 02/17/25 Lucero Stafford LPN [employer] [place] [address] TCM Nurse 04/01/25 05/01/25 documented as of this encounter
--- OUTSIDE RECORDS SUMMARY | 2025-05-27 10:26 | XMS_ITS | Encounter Summary ---
Author Organization Healthcare Address [address] [place] [address] Care Team Providers Care Sales Account Specialist Name Role Phone Kiera Castro APRN Primary Care Provider [phone] Lucero Stafford LPN Unavailable Unavailable Reason for Visit * Reason Comments TCM Call Encounter Details Date Type Department Care Team (Late Contact Info) Description 04/01/2025 Patient Outreach [facility] [address] [facility], [address] [place] [address] Lucero Stafford LPN [employer] [place] [address] TCM Call Social History Tobacco Use Types [...] time in the past 12 m [facility], were you homeless or living in a detention (including now)? No 03/27/2025 Utilities Answer Date Recorded In the past 12 months has th e [employer], gas, oil, or water company threatened to [...] documentation has been received, and [facility] has approved this in-home care. documented in this encounter Plan of Treatment Upcoming Encounters Date Type Department Care Team (Late st Contact Info) Description 08/03/2025 12:40 PM EDT Office Visit [facility] [place] [address] [place] [address] Dimitrios Wright MD [address] [place] [address] documented as of this encounter Goals Goal [...] documented as of this encounter Care Teams Sales Account Specialist Relationship Specialty Start Date End Date Kiera Castro APRN [address] [place] [address] PCP - General 02/17/25 Lucero Stafford LPN [employer] [place] [address] TCM Nurse 04/01/25 05/01/25 documented as of this encounter
--- NOTE | 2025-05-27 10:27 | CT_ITS ---
FINAL REPORT TECHNIQUE: Pre-and postcontrast images of the abdomen were performed by computed tomography. Extensive 3-D reconstruction images were performed. A CTA was performed. This study was performed with techniques to keep radiation doses as low as reasonably achievable (ALARA). Individualized dose reduction techniques using automated exposure control or adjustment of mA and/or kV according to the patient''s size were employed. CLINICAL HISTORY: Anemia, history of bleeding ulcer GI BLEED PROTOCOL COMPARISON: 03/25/2025 FINDINGS: ABDOMEN: There are nonobstructing bilateral renal stones, more prominent on the left than on the right. Bilateral renal cysts are present as well. The remainder of the solid organs are unremarkable. There is no bowel obstruction or bowel wall thickening identified. The appendix is normal in appearance. There is hyperdensity in the distal ileal lumen, that was present on precontrast examination, compatible with ingested material. The prostate and bladder are unremarkable. CTA: The abdominal aorta demonstrates moderate diffuse calcified plaque. 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 There is no extra patient of contrast to indicate an active GI bleed. Mild bilateral renal artery stenosis is noted. IMPRESSION: 1. No evidence of CT findings of active bleeding, bowel wall thickening, or bowel obstruction. Reviewed, Interpreted and Dictated by Michael Mcdonnell MD Transcribed by Valerie Duckworth Authenticated and [facility]
--- OUTSIDE RECORDS SUMMARY | 2025-05-27 10:27 | XMS_ITS | Encounter Summary ---
Author Organization Healthcare Address [address] [place] [address] Care Team Providers Care Motion Picture Projectionist Name Role Phone Matthew Kiera Whitmore APRN Primary Care Provider [phone] Lucero Stafford LPN Unavailable Unavailable Encounter Details Date Type Department Care Team (Late st Contact Info) Description 02/22/2025 Lab Requisition [facility] [address] [place] [address] Sohail Alex MD [id number] [place] [address] Encounter for general adult medical [...] were you homeless or living in a skilled nursing (including now)? No 02/17/2025 Utilities Answer Date [...] Description 08/03/2025 12:40 PM EDT Office Visit [facility] [address] [place] [address] Dimitrios Wright MD [address] [place] [id number] documented as of this encounter Procedures Procedure Name Priority Date/Time Associated Diagnosis Comments MULTI DRUG RESISTANCE TEST Routine 02/22/2025 11:00 AM EDT Encounter for general adult medical examination without abnormal findings documented in this encounter Results * Multi Drug Resistance Test (02/22/2025 11:00 AM EDT) Culture No growth at day 1 02/23/2025 9:05 AM EDT [facility] Swab (Nares and Leslie Rectal) 02/22/2025 11:00 AM EDT 02/22/2025 11:49 AM EDT us Sohail Alex MD LAB MICROBIOLOGY - GEN ERAL ORDERABLES Final Result [facility] [address] [place] [address] documented in this encounter Visit Diagnoses Diagnosis Encounter for general adult medical examination without abnormal findings documented in this encounter Additional Health Concerns Assessment Noted Time A Body Mass Index follow-up plan has been documented for the patient 03/02/2025 1:29 PM EDT documented as of this encounter Care Teams Motion Picture Projectionist Relationship Specialty Start Date End Date Kiera Castro APRN [address] [place] [address] PCP - General 02/17/25 Lucero Stafford LPN VALUE-[employer]ED [place] [address] TCM Nurse 04/01/25 05/01/25 documented as of this encounter
[2025-05-27] MEDS: PANTOPRAZOLE 40MG VIAL 40 MG IV ×2 (10:35→21:58)
[2025-05-27] MEDS: 0.9 % SODIUM CHLORIDE 50 ML VIAL 40 ML IV (10:46)
[2025-05-27] MEDS: IOPAMIDOL-370 (76%);100ML BOTTLE 80 ML IV (10:46)
[2025-05-27 10:49] LABS: Immature Granulocytes % 0.3 %; Mean Corpuscular HGB Conc 28.4 g/dL (31.8-35.4); Mean Corpuscular Hemoglobin 21.9 pg (27.0-31.2); Mean Corpuscular Volume 77.3 fl (80-94); Nucleated Red Blood Cells % 0.4 %; Platelet Count 309 K/mm3 (142-424); Red Blood Count 2.60 M/mm3 (4.60-6.20); Red Cell Distribution Width-SD 52.9 fL; White Blood Count 7.4 K/mm3 (4.8-10.8)
[2025-05-27 10:53] LABS: Hematocrit 20.1 % (42.0-52.0)
[2025-05-27 10:55] LABS: Albumin Level 4.2 g/dl (3.5-5.0); Chloride 104 mmol/L (98-107); Potassium 4.0 mmoL/L (3.5-5.1); Sodium 138 mmol/L (136-145)
[2025-05-27 10:58] LABS: Alanine Aminotransferase 11 U/L (12-78); Albumin/Globulin Ratio 1.5 (1.1-1.8); Alkaline Phosphatase 79 U/L (38-126); Anion Gap 13.0 mEq/L (5-15); Aspartate Amino Transferase 18 U/L (17-59); Bilirubin,Total 0.4 mg/dl (0.2-1.3); Blood Urea Nitrogen 19 mg/dl (9-20); Carbon Dioxide 25 mmol/L (22.0-30.0); Creatinine Clearance Estimated 107 mL/min (50-200); Creatinine,Serum 0.80 mg/dl (0.66-1.25); Estimated Glomerular Filt Rate 97 ml/min (>60); GFR (African American) 117 ML/MIN (>60); Globulin 2.8 g/dL (1.3-3.2); Lipase 67 U/L (23-300); Total Protein,Serum 7.0 g/dl (6.3-8.2)
[2025-05-27 10:59] LABS: Calcium 9.0 mg/dl (8.4-10.2); Glucose 100 mg/dl (74-100)
[2025-05-27 11:03] LABS: Activated Partial Thrombo Time 24.9 seconds (22.8-30.6); INR 1.09 (0.9-1.1); Prothrombin Time 12.0 seconds (10.1-12.5)
[2025-05-27 11:16] LABS: Hemoglobin 5.7 g/dL (14.1-18.0)
--- NOTE | 2025-05-27 11:16 | HMH.EDGENADL ---
Discharge Plan Disposition Patient Disposition: Admitted Clinical Impressions Clinical Impression: Acute on chronic blood loss anemia, GI bleed Discharge ED Provider: Tang Sifuentes Adult HPI General Chief complaint: Weakness Stated complaint: weak, dizzy, loosing blood Time Seen by Provider: 05/27/25 10:20 Mode of Arrival: Ambulatory Source of Information: Patient Description of Symptoms (Recalled from ER Triage Doc. by RN): Patient presents to ED from home, states he had labs done yesterday and was called this AM and told to come to the ED due to abnormailities. Patient reports generalized weakness and dizziness x 4 days. Reports passing blood through his bowels this AM, reports a bright red streak . Notes hx of bleeding ulcers . History of Present Illness HPI narrative: Shelly Nelson is a 64y male with a history of GI bleeding secondary to bleeding ulcer, GERD, hyperlipidemia, CABG, who presents to the emergency department for low hemoglobin, dizziness and concern for GI bleed. Patient states that yesterday he noted a streak of bright red blood in his stool. He states that his stool is otherwise been brown but he has a significant history of bleeding ulcer. He reports chronic pain but denies any new abdominal pain. He denies any chest pain or shortness of breath. He states that he is not currently on any blood thinning medications. He was seen by his primary care physician today because he has been having dizziness and was found to be significantly anemic and was sent to the emergency department for further workup. Patient reports that a couple months ago, he was evaluated at the [facility] and had a scope at that time that confirmed a bleeding ulcer. He states he has been on medication since then but does not know what he takes. He denies any blood thinner use. Related Data Home Medications ?Medication ?Instructions ?Recorded ?Confirmed lisinopril 40 mg tablet 40 mg PO DAILY 04/09/25 05/27/25 furosemide 40 mg tablet 40 mg PO DAILY 05/27/25 05/27/25 sennosides 8.6 mg tablet 17.2 mg PO HSP PRN Constipation 05/27/25 05/27/25 Previous Rx's ?Medication ?Instructions ?Recorded atorvastatin 80 mg tablet 80 mg PO HS #90 tabs 04/16/25 amiodarone 200 mg tablet 200 mg PO DAILY #90 tabs 04/19/25 metoprolol tartrate 50 mg tablet 75 mg (1.5 x 50 mg) PO BID #270 04/19/25 tabs pantoprazole 40 mg tablet,delayed 40 mg PO BID #60 tabs 04/23/25 release Allergies Allergy/AdvReac Type Severity Reaction Status Date / Time No Known Allergies Allergy Verified 05/26/25 08:29 [facility] Disclaimer: The information contained in this section may have been updated after the patient was seen, as this information can be updated by other users. 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 (Updated 05/27/25 @ 13:03 by Tang Sifuentes MD) GI bleed Infected wound Hospital discharge follow-up Paroxysmal A-fib Anemia Encounter for annual wellness visit (AWV) in Medicare patient Foreign body sensation in left ear canal Non-ST elevation ND (NSTEMI) Chest pain Angina pectoris ACS (acute coronary syndrome) Elevated brain natriuretic peptide (BNP) level Pleural effusion Chest pain Ileus Vomiting Left against medical advice GI bleed Anemia Bleeding ulcer History of left heart catheterization COPD (chronic obstructive pulmonary disease) Screening for malignant neoplasm of colon Encounter for screening for abdominal aortic aneurysm (AAA) in patient 50 years of age or older with history of smoking Encounter for prostate cancer screening Exposure to hepatitis C Encounter for screening for diabetes mellitus Encounter for screening examination for sexually transmitted disease Neck pain Thoracic back pain Bronchitis Need for RSV immunization Left flank pain Left sided abdominal pain Cervical radiculopathy Acute viral syndrome Pharyngitis Generalized body aches Sinusitis Scalp irritation Fatigue Eustachian tube dysfunction Cervical radiculopathy Bilateral arm pain Bilateral shoulder pain Neck pain Occult blood in stools Angina at rest Shoulder pain Neck pain Abdominal pain Nerve damage Chest pain Hypertension Exposure to COVID-19 virus Corneal abrasion Amputation of finger tip Urethral colic due to calculus Renal colic on right side Surgical History Aortic valve replaced H/O removal of cyst Hx of CABG Hx of inguinal hernia repair History of shoulder surgery History of neck surgery History of knee surgery Family History Other No significant family 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 Smoking Status: Former smoker tobacco type: cigarettes packs per day: 1 quit status: has quit before alcohol intake: never substance use type: denies use current occupational status: retired and disabled Travel in the last 8 weeks?: None adopted: No caregiver/support person: No foster care: No household members: friend(s) housing: apartment lives independently: Yes marital status: single number of children: 3 number of grandchildren: 7 service: Yes (discharged 1985) 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 halfway: No Have you lived/traveled outside [place] in past 30 days?: No Contact w/someone who lives/traveled outside US past 30 days?: No Exposure to someone with infectious disease in past 14 days?: No Do you have a fever (greater than 100.4 F or 38 C)?: No Have you tested positive for COVID-19?: No Exposed to someone with COVID-19 in past 14 days?: No Do you have a sore throat?: No Do you have a cough?: No Do you have any weakness?: No Do you have any diarrhea?: No Are you experiencing any unusual bleeding?: No Do you have any muscle aches/pain?: No Do you have any abdominal pain?: No Are you experiencing loss of taste or smell?: No Other 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 Have you received the Flu Vaccine for this season: No Have you received the Pneumonia Vaccine: Yes ROS Obtained: Yes Systems reviewed as appropriate & no additional complaints except as documented Physical Exam General General appearance: alert and in no apparent distress Head Head exam: atraumatic Eye Eye exam: Present normal appearance ENT ENT exam: Present normal external ear exam Neck Neck exam: Present full ROM Chest Chest inspection: Present symmetric chest wall rise Respiratory Respiratory exam: Present normal lung sounds bilaterally; Absent respiratory distress, wheezes or stridor Cardiovascular Cardiovascular exam: Present regular rate and normal rhythm Abdominal Exam Abdominal exam: Present soft; Absent tenderness or guarding Rectal Exam comment: No obvious external bleeding. No hemorrhoids. Internal digital rectal exam without significant pain. No obvious blood or masses appreciated. Hemoccult sent. exam: Present deferred Extremities Exam Extremities exam: Present normal inspection Back Exam Back exam: Present normal inspection Neurological Exam Neurological exam: Present alert and oriented X3 Psychiatric Psychiatric exam: Present normal affect Skin Skin exam: Present warm, dry and other (Well-healed midline sternotomy scar. Well-healed upper abdominal scars) Medical Decision Making Medical Records Screening: Per USPSTF and CDC recommendations, given the prevalence of disease in our region, it is our hospital?s policy to screen for HIV and viral Hepatitis for all patients aged 18 and over and those with ongoing risk factors. Kalpesh Inquiry Pt receiving controlled substance: No Vital Signs: 05/27/25 10:20 05/27/25 10:22 05/27/25 10:40 Temperature 98.3 F Temperature Source Oral Pulse Rate 69 67 Pulse Rate [Left] 72 Respiratory Rate 17 17 16 TAR Vitals Timing Blood Pressure 124/60 Blood Pressure [Right Arm] 149/62 H Blood Pressure Mean 92 Blood Pressure Mean [Right Arm] 91 Blood Pressure Source Blood Pressure Source [Right Arm] Automatic Cuff Blood Pressure Position Blood Pressure Position [Right Arm] Sitting 02 Sat by Pulse Oximetry 99 100 100 Oxygen Delivery Method Room Air Room Air Room Air 05/27/25 11:00 05/27/25 11:15 05/27/25 11:31 Temperature Temperature Source Pulse Rate 65 64 Pulse Rate [Left] Respiratory Rate 17 17 13 TAR Vitals Timing Blood Pressure 149/73 H 135/63 Blood Pressure [Right Arm] Blood Pressure Mean 83 Blood Pressure Mean [Right Arm] Blood Pressure Source Blood Pressure Source [Right Arm] Blood Pressure Position Blood Pressure Position [Right Arm] 02 Sat by Pulse Oximetry 100 97 Oxygen Delivery Method Room Air Room Air 05/27/25 12:01 05/27/25 12:39 Temperature 98.4 F Temperature Source Oral Pulse Rate 64 Pulse Rate [Left] Respiratory Rate 18 16 TAR Vitals Timing Pre-Blood Vitals Blood Pressure 152/66 H 165/71 H Blood Pressure [Right Arm] Blood Pressure Mean 102 Blood Pressure Mean [Right Arm] Blood Pressure Source Manual Cuff/ Doppler Blood Pressure Source [Right Arm] Blood Pressure Position Supine Blood Pressure Position [Right Arm] 02 Sat by Pulse Oximetry 100 98 Oxygen Delivery Method Room Air Lab Data Lab Results 05/27/25 10:35: WBC 7.4, RBC 2.60 L, Hgb 5.7 L*, Hct 20.1 L*, MCV 77.3 L, MCH 21.9 L, MCHC 28.4 L, RDW 19.1 H, Plt Count 309, MPV 9.8, Neut % (Auto) 48.5, Lymph % (Auto) 31.2, Sp[place]ding % (Auto) 9.0, Eos % (Auto) 10.3, Baso % (Auto) 0.7, Neut # (Auto) 3.6, Lymph # (Auto) 2.3, Sp[place]ding # (Auto) 0.7, Eos # (Auto) 0.8 H, Baso # (Auto) 0.1, PT 12.0, INR 1.09, APTT 24.9, Sodium 138, Potassium 4.0, Chloride 104, Carbon Dioxide 25, Anion Gap 13.0, BUN 19, Creatinine 0.80, Estimated Creat Clear 107, Estimated GFR 97, Est GFR ( Amer) 117, Glucose 100, Calcium 9.0, Total Bilirubin 0.4, AST 18, ALT 11 L, Alkaline Phosphatase 79, Total Protein 7.0 D, Albumin 4.2, Globulin 2.8, Albumin/Globulin Ratio 1.5, Lipase 67, Blood Type O Positive, Antibody Screen Negative, Crossmatch (AHG) See Detail 05/27/25 10:40: HCV Ab VANNESA w/Rflx PCR Qn Negative, HIV Ag/Ab Combo Qual Negative 05/27/25 11:30: Stool Occult Blood Negative 05/27/25 10:35 05/27/25 10:35 Orders (Tests/Meds): ED MEDICATIONS Generic Name Dose Route Start Last Admin Trade Name Freq PRN Reason Stop Dose Admin Sodium Chloride 250 mls @ 25 mls/hr 05/27/25 11:30 Sod Chlor 0.9% 250ml Bag IV 05/28/25 11:29 .Q10H KATHLEEN Sodium Chloride 10 ml 05/27/25 10:29 Sodium Chloride 0.9% 10ml Vial IV 06/26/25 10:28 NEEDED PRN dilute protonix Discontinued Medications Generic Name Dose Route Start Last Admin Trade Name Freq PRN Reason Stop Dose Admin Iopamidol 80 ml 05/27/25 10:45 05/27/25 10:46 Iopamidol-370 (76%);100ml Bottle IV 05/27/25 10:46 80 ml ONCE ONE Administration Iopamidol 80 ml 05/27/25 10:57 Iopamidol-370 (76%);100ml Bottle IV 05/27/25 10:58 ONCE ONE Pantoprazole Sodium 40 mg 05/27/25 10:29 05/27/25 10:35 Pantoprazole 40mg Vial IV 05/27/25 10:30 40 mg ONCE ONE Administration Sodium Chloride 40 ml 05/27/25 10:45 05/27/25 10:46 0.9 % Sodium Chloride 50 Ml Vial IV 05/27/25 10:46 40 ml ONCE ONE Administration Sodium Chloride 10 ml 05/27/25 10:57 Sodium Chloride 0.9% 10ml Syr (Rad Only) IV 05/27/25 10:58 ONCE ONE Sodium Chloride 40 ml 05/27/25 10:57 0.9 % Sodium Chloride 50 Ml Vial IV 05/27/25 10:58 ONCE ONE ORDERS Category Date Time Status Transfuse RBC's [Red Blood Cells] Stat BBK 05/27/25 10:35 Results Type and Screen Stat BBK 05/27/25 10:[address] angio abd/pel - GI Bleed Stat Cat Scan 05/27/25 10:27 Completed CXR --portable [XR chest portable] Stat Exams 05/27/25 11:36 Completed CBC w/Auto Diff [Complete Blood Count Auto Diff] Stat Lab 05/27/25 10:35 Completed CMP [Comprehensive Metabolic Panel] Stat Lab 05/27/25 10:35 Completed HIV Combo Stat Lab 05/27/25 10:40 Completed Hepatitis C Ab Qual. W/ RFX Stat Lab 05/27/25 10:40 Completed Lipase Stat Lab 05/27/25 10:35 Completed Occult Blood,Stool Stat Lab 05/27/25 11:30 Completed PT INR [Prothrombin Time INR] Stat Lab 05/27/25 10:35 Completed PTT [Activated Partial Thrombo Time] Stat Lab 05/27/25 10:35 Completed Medical Decision Narrative: Shelly Nelson is a 64y male with a history of GI bleeding secondary to bleeding ulcer, GERD, hyperlipidemia, CABG, who presents to the emergency department for low hemoglobin, dizziness and concern for GI bleed. Patient states that yesterday he noted a streak of bright red blood in his stool. He states that his stool is otherwise been brown but he has a significant history of bleeding ulcer. He reports chronic pain but denies any new abdominal pain. He denies any chest pain or shortness of breath. He states that he is not currently on any blood thinning medications. He was seen by his primary care physician today because he has been having dizziness and was found to be significantly anemic and was sent to the emergency department for further workup. Patient reports that a couple months ago, he was evaluated at the [facility] and had a scope at that time that confirmed a bleeding ulcer. He states he has been on medication since then but does not know what he takes. He denies any blood thinner use. On arrival, patient is mildly hypertensive, heart rate within normal limits, breathing comfortably on room air with oxygen saturation 97% SpO2. Physical exam, patient is overall well-appearing, mildly pale, well-healing surgical scars in the upper abdomen and mid chest. Cardiopulmonary exam is unremarkable. Abdomen is soft, nondistended. Rectal exam performed with staffing account manager at the bedside without obvious blood. Stool sent for Hemoccult testing. Differential diagnosis includes, but is not limited to: Bleeding gastric ulcer, lower GI bleed, hernia, symptomatic blood loss anemia, electrolyte derangement, metabolic derangement, among others. The most morbid conditions were considered and workup was based on these. Workup in the emergency department included: Hemoccult testing, CTA abdomen pelvis GI bleed protocol, CBC, CMP, PT/INR, PTT, lipase, type and screen, EKG, chest x-ray. Patient was given 40 mg IV Protonix. EKG interpreted by me personally. No concerns for ischemia. See interpretation above. Patient's repeat hemoglobin here today is 5.7 (was 5.7 prior to arrival), hematocrit of 20. Will transfuse 2 units of PRBCs after consent is obtained. Platelets normal at 309, no leukocytosis. Coagulation studies unremarkable. Electrolytes unremarkable and nonactionable. No LETTY. BUN borderline elevated at 19 but technically within normal limits. Liver enzymes unremarkable and nonactionable. Lipase normal at 67. Hemoccult testing is negative, which have also been negative in the past but most recently positive in March of this year. CTA abdomen pelvis interpreted by me personally: No evident active bleeding or areas of extravasation. No other acute findings within the abdomen or pelvis. Radiology report confirms no evidence of active bleeding, bowel wall thickening or bowel obstruction. See final radiology report for details. Chest x-ray also interpreted by me personally. No focal consolidations, widening of the mediastinum. Post CABG changes without new changes since previous chest x-ray. See radiology report for details. Given patient significant anemia and what appears to be a GI bleed, is felt that he would benefit from admission for continued trending of his H&H and likely repeat transfusions. I did discuss patient's case with hospitalist, Dr. Echevarria, who agreed to [facility]. He did recommend reaching out to Dr. Vazquez with gastroenterology as he might be able to perform endoscopy today. Patient has been n.p.o. since last night according to patient. I did discuss patient's case with Dr. Vazquez who agreed to scope patient later today. This was relayed to the hospitalist. Patient was subsequently admitted to the hospital medicine service for further management. Critical Care Critical Care Time Critical Care Time: Yes Attestation: On 05/27/25, the high probability of a clinically significant, sudden or life threatening deterioration of the following system(s) required my full and direct attention, intervention and personal management. The time I documented below is in addition to time spent performing reported procedures but includes the following listed in this critical care notation. Total Time Total Critical Care Time: 35
[2025-05-27 11:35] LABS: Occult Blood,Stool Negative (Negative)
--- NOTE | 2025-05-27 11:36 | XR_ITS ---
FINAL REPORT CLINICAL HISTORY: Anemia, recent cardiac surgery COMPARISON: 03/24/2025 FINDINGS: CHEST 1 VIEW No acute pulmonary opacity is present. There is no evidence of effusion or pneumothorax. There is evidence of prior median sternotomy, presumably from CABG. Otherwise, mediastinum is unremarkable. Heart size is normal. IMPRESSION: Unremarkable chest, status post CABG. Reviewed, Interpreted and Dictated by Michael Mcdonnell MD Transcribed by Kim Loya Authenticated and [facility]
--- NOTE | 2025-05-27 11:40 | PC.NURSE ---
Blood consent form complete and placed on chart. Awaiting blood bank readiness for transfusion.
[2025-05-27 12:00] LABS: Hepatitis C Ab Qual. W/ RFX NEGATIVE (Negative)
--- NOTE | 2025-05-27 12:03 | PC.NURSE ---
I spoke with Elke in radiology. She states the pts imaging is locked and being read at this time.
--- NOTE | 2025-05-27 12:40 | PC.NURSE ---
spoke with the hospitalist who accepted the pt for GI bleed. HS notified of the need for a bed.
--- NOTE | 2025-05-27 12:48 | PC.NURSE ---
paged at this time.
--- NOTE | 2025-05-27 12:51 | HMH.PHAINT1 ---
Pharmacy Intervention Comments: MEDICATION RECONCILIATION COMPLETED ON PATIENT USING EXTERNAL FILL HISTORY FROM PHARMACY. -[facility]ACK[facility] BREWER, [place]
--- NOTE | 2025-05-27 13:16 | PC.NURSE ---
Patient handoff report called to ANGELICA Dhillon.
--- NOTE | 2025-05-27 13:46 | PC.NURSE ---
Patient to the floor now via ANGELICA Dhillon. VSS. Respirations even and unlabored. RBC's infusing at 150mL/hr upon departure from ED.
--- NOTE | 2025-05-27 15:01 | PC.NURSE ---
Off floor for EGD.
--- NOTE | 2025-05-27 15:12 | P.PNANES_ITS ---
[facility] Disclaimer: The information contained in this section may have been updated after the patient was seen, as this information can be updated by other users. 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 GI bleed Infected wound Hospital discharge follow-up Paroxysmal A-fib Anemia Encounter for annual wellness visit (AWV) in Medicare patient Foreign body sensation in left ear canal Non-ST elevation [place] (NSTEMI) Chest pain Angina pectoris ACS (acute coronary syndrome) Elevated brain natriuretic peptide (BNP) level Pleural effusion Chest pain Ileus Vomiting Left against medical advice GI bleed Anemia Bleeding ulcer History of left heart catheterization COPD (chronic obstructive pulmonary disease) Screening for malignant neoplasm of colon Encounter for screening for abdominal aortic aneurysm (AAA) in patient 50 years of age or older with history of smoking Encounter for prostate cancer screening Exposure to hepatitis C Encounter for screening for diabetes mellitus Encounter for screening examination for sexually transmitted disease Neck pain Thoracic back pain Bronchitis Need for RSV immunization Left flank pain Left sided abdominal pain Cervical radiculopathy Acute viral syndrome Pharyngitis Generalized body aches Sinusitis Scalp irritation Fatigue Eustachian tube dysfunction Cervical radiculopathy Bilateral arm pain Bilateral shoulder pain Neck pain Occult blood in stools Angina at rest Shoulder pain Neck pain Abdominal pain Nerve damage Chest pain Hypertension Exposure to COVID-19 virus Corneal abrasion Amputation of finger tip Urethral colic due to calculus Renal colic on right side Surgical History Aortic valve replaced H/O removal of cyst Hx of CABG Hx of inguinal hernia repair History of shoulder surgery History of neck surgery History of knee surgery Family History Other No significant family 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 (Updated 05/27/25 @ 13:07 by Alesia Pinon RN) Smoking Status: Former smoker tobacco type: cigarettes packs per day: 1 quit status: has quit before alcohol intake: never substance use type: denies use current occupational status: retired and disabled Travel in the last 8 weeks?: None adopted: No caregiver/support person: No foster care: No household members: friend(s) housing: apartment lives independently: Yes marital status: single number of children: 3 number of grandchildren: 7 service: Yes (discharged 1985) 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: No Have you lived/traveled outside [place] in past 30 days?: No Contact w/someone who lives/traveled outside [place] past 30 days?: No Exposure to someone with infectious disease in past 14 days?: No Do you have a fever (greater than 100.4 F or 38 C)?: No Have you tested positive for COVID-19?: No Exposed to someone with COVID-19 in past 14 days?: No Do you have a sore throat?: No Do you have a cough?: No Do you have any weakness?: No Are you experiencing any nausea/vomitting?: No Do you have any diarrhea?: No Are you experiencing any unusual bleeding?: No Do you have any muscle aches/pain?: No Do you have any abdominal pain?: No Are you experiencing loss of taste or smell?: No [facility] Anesthesia Checklist Patient Identification Patient Identification: Arm Band and Verbal (Name & ) Structural Data Admitted From: Emergency Dept Planned Operative Procedure/s: EGD Consent for Planned Operative Procedure(s) Verified: Yes Verified Documents: Surgical Consent Chart Verification Results Verified: H & H and ECG Additional verifications Hx Blood Transfusions: Yes Airway Assessment Mallampati Score:: Class II C-Spine Mobility Assessed: Yes TMJ Mobility Assessed: Yes Dentition: Edentulous Neurological Assessment Level of Consciousness: Awake, Alert and Appropriate Hx Seizures: No Numbness or tingling in extremities: No Anesthesia Plan Anesthesia Risk discussed: Yes Anesthesia Plan: Verified ASA Class: III Anesthesia Type: MAC
--- NOTE | 2025-05-27 15:37 | EXP.HP ---
History of Present Illness *Admission Date: 05/27/25 *Reason for visit:: GI bleed *History of present illness: Mr. Nelson is a 64-year-old gentleman who is here for acute anemia and GI blood loss with rectal bleeding. The examination is deemed medically necessary for diagnostic EGD. The patient has been seen, interviewed and examined prior to the procedure by both myself and the anesthesia provider. [facility] Disclaimer: The information contained in this section may have been updated after the patient was seen, as this information can be updated by other users. 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 (Updated 05/27/25 @ 15:48 by Jose Vazquez II, MD) GI bleed Infected wound Hospital discharge follow-up Paroxysmal A-fib Anemia Encounter for annual wellness visit (AWV) in Medicare patient Foreign body sensation in left ear canal Non-ST elevation [place] (NSTEMI) Chest pain Angina pectoris ACS (acute coronary syndrome) Elevated brain natriuretic peptide (BNP) level Pleural effusion Chest pain Ileus Vomiting Left against medical advice GI bleed Anemia Bleeding ulcer History of left heart catheterization COPD (chronic obstructive pulmonary disease) Screening for malignant neoplasm of colon Encounter for screening for abdominal aortic aneurysm (AAA) in patient 50 years of age or older with history of smoking Encounter for prostate cancer screening Exposure to hepatitis C Encounter for screening for diabetes mellitus Encounter for screening examination for sexually transmitted disease Neck pain Thoracic back pain Bronchitis Need for RSV immunization Left flank pain Left sided abdominal pain Cervical radiculopathy Acute viral syndrome Pharyngitis Generalized body aches Sinusitis Scalp irritation Fatigue Eustachian tube dysfunction Cervical radiculopathy Bilateral arm pain Bilateral shoulder pain Neck pain Occult blood in stools Angina at rest Shoulder pain Neck pain Abdominal pain Nerve damage Chest pain Hypertension Exposure to COVID-19 virus Corneal abrasion Amputation of finger tip Urethral colic due to calculus Renal colic on right side Surgical History Aortic valve replaced H/O removal of cyst Hx of CABG Hx of inguinal hernia repair History of shoulder surgery History of neck surgery History of knee surgery Family History Other No significant family 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 (Updated 05/27/25 @ 13:07 by Alesia Pinon, RN) Smoking Status: Former smoker tobacco type: cigarettes packs per day: 1 quit status: has quit before alcohol intake: never substance use type: denies use current occupational status: retired and disabled Travel in the last 8 weeks?: None adopted: No caregiver/support person: No foster care: No household members: friend(s) housing: apartment lives independently: Yes marital status: single number of children: 3 number of grandchildren: 7 service: Yes (discharged 1985) 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 [employer] group home: No Have you lived/traveled outside [place] in past 30 days?: No Contact w/someone who lives/traveled outside [place] past 30 days?: No Exposure to someone with infectious disease in past 14 days?: No Do you have a fever (greater than 100.4 F or 38 C)?: No Have you tested positive for COVID-19?: No Exposed to someone with COVID-19 in past 14 days?: No Do you have a sore throat?: No Do you have a cough?: No Do you have any weakness?: No Are you experiencing any nausea/vomitting?: No Do you have any diarrhea?: No Are you experiencing any unusual bleeding?: No Do you have any muscle aches/pain?: No Do you have any abdominal pain?: No Are you experiencing loss of taste or smell?: No Other 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 Have you received the Flu Vaccine for this season: Yes Have you received the Pneumonia Vaccine: Yes Review of Systems Review of Systems Review of systems (narrative): Negative *Cardiovascular Comments: Negative *Gastrointestinal Comments: Negative *Genitourinary Comments: Negative *Musculoskeletal Comments: Negative *Neurologic Comments: Negative Meds Home Medications and Allergies Home Medications ?Medication ?Instructions ?Recorded ?Confirmed ?Type lisinopril 40 mg tablet 40 mg PO DAILY 04/09/25 05/27/25 History atorvastatin 80 mg tablet 80 mg PO HS #90 tabs 04/16/25 05/27/25 Rx amiodarone 200 mg tablet 200 mg PO DAILY #90 tabs 04/19/25 05/27/25 Rx metoprolol tartrate 50 mg tablet 75 mg (1.5 x 50 mg) PO BID #270 04/19/25 05/27/25 Rx tabs pantoprazole 40 mg tablet,delayed 40 mg PO BID #60 tabs 04/23/25 05/27/25 Rx release furosemide 40 mg tablet 40 mg PO DAILY 05/27/25 05/27/25 History sennosides 8.6 mg tablet 17.2 mg PO HSP PRN Constipation 05/27/25 05/27/25 History New Prescriptions to Start Prescriptions: Allergies Allergy/AdvReac Type Severity Reaction Status Date / Time No Known Allergies Allergy Verified 05/26/25 08:29 Exam Data for Last 24 hours Vital signs and Labs for Last 24 Hours: Temp Pulse Resp BP Pulse Ox O2 Del Method 97.8 F 68 18 189/82 H 97 Room Air 05/27/25 15:12 05/27/25 15:12 05/27/25 15:12 05/27/25 15:12 05/27/25 15:12 05/27/25 15:12 Laboratory Results - last 24 hr 05/27/25 10:35: WBC 7.4, RBC 2.60 L, Hgb 5.7 L*, Hct 20.1 L*, MCV 77.3 L, MCH 21.9 L, MCHC 28.4 L, RDW 19.1 H, Plt Count 309, MPV 9.8, Neut % (Auto) 48.5, Lymph % (Auto) 31.2, [place] % (Auto) 9.0, Eos % (Auto) 10.3, Baso % (Auto) 0.7, Neut # (Auto) 3.6, Lymph # (Auto) 2.3, [place] # (Auto) 0.7, Eos # (Auto) 0.8 H, Baso # (Auto) 0.1, PT 12.0, INR 1.09, APTT 24.9, Sodium 138, Potassium 4.0, Chloride 104, Carbon Dioxide 25, Anion Gap 13.0, BUN 19, Creatinine 0.80, Estimated Creat Clear 107, Estimated GFR 97, Est GFR ( Amer) 117, Glucose 100, Calcium 9.0, Total Bilirubin 0.4, AST 18, ALT 11 L, Alkaline Phosphatase 79, Total Protein 7.0 D, Albumin 4.2, Globulin 2.8, Albumin/Globulin Ratio 1.5, Lipase 67, Blood Type O Positive, Antibody Screen Negative, Crossmatch (AHG) See Detail 05/27/25 10:40: HCV Ab VANNESA w/Rflx PCR Qn Negative, HIV Ag/Ab Combo Qual Negative 05/27/25 11:30: Stool Occult Blood Negative I & O for Last 24 hours: Intake & Output 05/24/25 05/25/25 05/26/25 05/27/25 23:59 23:59 23:59 23:59 Intake Total 0 / 0 Output Total 275 / 275 Balance -275 / -275 Weight 227 lb 6 oz *Routine HEENT Exam Head: Present normocephalic Eye: Present EOMI and PERRL ENT: Present mucous membranes moist *Routine Neck Exam Neck: Present supple *Routine Respiratory Exam Respiratory: Present CTA bilaterally *Routine Cardiovascular Exam Cardiovascular: Present RRR *Routine Abdominal Exam Abdominal: Present soft and normoactive bowel sounds; Absent tenderness *Routine Rectal Exam Rectal:: deferred *Routine Genitalia Exam Genitalia:: deferred *Routine Extremities Exam Extremities: Absent cyanosis, clubbing or edema *Routine Skin Exam Skin: Present warm; Absent rash *Routine Neurological Exam Neurological: Present alert and oriented X3 Assessment and Plan *Assessment and plan (1) Acute on chronic blood loss anemia: Status: Acute Category: Medical Code(s): D62 - Acute posthemorrhagic anemia (2) GI bleed: Status: Acute Category: Medical Code(s): K92.2 - Gastrointestinal hemorrhage, unspecified (3) Rectal bleeding: Status: Acute Category: Medical Code(s): K62.5 - Hemorrhage of anus and rectum (4) History of duodenal ulcer: Status: Acute Category: Medical Code(s): Z87.19 - Personal history of other diseases of the digestive system Plan A/P: 1. Acute on chronic anemia with rectal bleeding and history of duodenal ulcer is the preprocedural diagnosis. The patient will be anesthetized/sedated using MAC sedation. The patient has been seen and examined. Cardiac and lung assessment prior to the examination is stable. Proceed with planned diagnostic EGD.
--- NOTE | 2025-05-27 15:49 | HMH.PROCNOTE ---
[facility] Procedure Note Date: 05/27/25 Time: 15:57 Procedure Note:: Upper Endoscopy Procedure Report: Esophagogastroduodenoscopy with APC ablation and cold biopsies Endoscopost: Jose Vazquez II, MD Referring Physician: ROSA Garza Date of Procedure: May 27, 2025 Equipment: Olympus GIF 190 standard upper endoscope Sedation: MAC sedation Indications: Mr. Nelson is a 64-year-old gentleman who presented to the his PCP today with malaise, lightheadedness and dyspnea on exertion. Lab work revealed hemoglobin 5.7 and hematocrit 20.2 with microcytic indices. Serum iron was 26 with iron saturation of 6.32% and ferritin 12.0. The patient has had 1 unit of PRBCs. The patient did report having a STEMI and was at the [facility] in March 2025. At that time he had some melena and had an EGD showing a duodenal ulcer. He was taken off of all anticoagulants but has remained on baby aspirin. The patient reports no use of NSAIDs. He has been on pantoprazole daily. He reports no abdominal pain. He does report having bright red blood per rectum just recently. He reports no melena, hematemesis or abdominal pain. EGD is performed for further evaluation. Procedure: Prior to the procedure, a history and physical exam was performed, and patient's medications and allergies were reviewed. The risks, benefits and alternatives of the sedation and procedure were discussed with the patient. All questions were answered and informed consent was obtained. The patient was brought to the procedure room. Patient identification and proposed procedure were verified by the physician and the nurse. The patient was placed in a left lateral decubitus position and the scope was passed under direct vision. Throughout the procedure, the patient's blood pressure, pulse, and oxygen saturations were monitored continuously. The upper GI endoscopy was accomplished without difficulty. The patient tolerated the procedure well. Findings: The scope was passed directly into the upper esophagus and advanced to the fourth portion of duodenum. There were no duodenal ulcers or erosions. There were 2 AVMs in the duodenum (1st and 2nd portion of duodenum) 1 of which had some adjacent oozing and heme. Both of these AVMs were ablated/coagulated using APC argon plasma coagulation. The remaining post bulbar duodenum and duodenal bulb were normal with normal mucosa and conniventes. The scope was withdrawn through a normal duodenal bulb and pylorus into the stomach. There were no gastric ulcerations. There was mild chronic gastritis of the body and fundus of the stomach. Cold biopsies were taken along the lesser curvature to rule out H. pylori. There was no hiatal hernia. The scope was then withdrawn into the esophagus. There was no evidence of reflux esophagitis, Mitchell's or varices. The remainder of the esophageal mucosa was normal. Impression: 1. 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 Chronic gastritis?rule out H. pylori Plan: The patient's recent bright red rectal bleeding is likely colonic in origin. Interestingly, his Hemoccult testing on 04/09 was positive but his stool Hemoccult today is negative. I would recommend parenteral iron infusion (Venofer). I will inquire about any prior colonoscopy and if he has had none in the last 3 to 5 years, I would recommend repeating diagnostic colonoscopy. I do feel that it is possible that the angiodysplasias resulted in more chronic GI blood loss and the anemia. Also, although it still remains a little controversial, studies have definitely shown that chronic PPI (proton pump inhibitor) use increases the risk for iron deficiency. There are 2 forms of dietary iron (heme iron and nonheme iron). Dietary nonheme iron is much less well absorbed than heme iron and its absorption is markedly improved by the presence of gastric acid. The patient has been on pantoprazole.
--- NOTE | 2025-05-27 17:56 | EXP.HP ---
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 He was evaluated by his PCP yesterday who obtained CBC, he called his PCP this morning who advised patient to immediately go to the ED due to severe anemia. Otherwise, patient states he has had no other symptoms. He states he has had GI bleeds in the past and was intervened at with a EGD for duodenal ulcer. He denies ever having a colonoscopy. Upon arrival to the ED, Hgb 5.7 MCV 77.3. FOBT however negative. I advised ED provider to reach out to Dr. Vazquez, who agreed to perform EGD today. 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 Dr. Vazquez deemed GI bleed is likely from colon and we will plan to schedule outpatient colonoscopy in the next week. Will monitor overnight after 2 units PRBC transfusion. [facility] Disclaimer: The information contained in this section may have been updated after the patient was seen, as this information can be updated by other users. 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 (Updated 05/27/25 @ 15:48 by Jose Vazquez II, MD) GI bleed Infected wound Hospital discharge follow-up Paroxysmal A-fib Anemia Encounter for annual wellness visit (AWV) in Medicare patient Foreign body sensation in left ear canal Non-ST elevation NC (NSTEMI) Chest pain Angina pectoris ACS (acute coronary syndrome) Elevated brain natriuretic peptide (BNP) level Pleural effusion Chest pain Ileus Vomiting Left against medical advice GI bleed Anemia Bleeding ulcer History of left heart catheterization COPD (chronic obstructive pulmonary disease) Screening for malignant neoplasm of colon Encounter for screening for abdominal aortic aneurysm (AAA) in patient 50 years of age or older with history of smoking Encounter for prostate cancer screening Exposure to hepatitis C Encounter for screening for diabetes mellitus Encounter for screening examination for sexually transmitted disease Neck pain Thoracic back pain Bronchitis Need for RSV immunization Left flank pain Left sided abdominal pain Cervical radiculopathy Acute viral syndrome Pharyngitis Generalized body aches Sinusitis Scalp irritation Fatigue Eustachian tube dysfunction Cervical radiculopathy Bilateral arm pain Bilateral shoulder pain Neck pain Occult blood in stools Angina at rest Shoulder pain Neck pain Abdominal pain Nerve damage Chest pain Hypertension Exposure to COVID-19 virus Corneal abrasion Amputation of finger tip Urethral colic due to calculus Renal colic on right side Surgical History Aortic valve replaced H/O removal of cyst Hx of CABG Hx of inguinal hernia repair History of shoulder surgery History of neck surgery History of knee surgery Family History Other No significant family 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 (Updated 05/27/25 @ 13:07 by Alesia Pinon RN) Smoking Status: Former smoker tobacco type: cigarettes packs per day: 1 quit status: has quit before alcohol intake: never substance use type: denies use current occupational status: retired and disabled Travel in the last 8 weeks?: None adopted: No caregiver/support person: No foster care: No household members: friend(s) housing: apartment lives independently: Yes marital status: single number of children: 3 number of grandchildren: 7 service: Yes (discharged 1985) 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 longterm: No Have you lived/traveled outside [place] in past 30 days?: No Contact w/someone who lives/traveled outside US past 30 days?: No Exposure to someone with infectious disease in past 14 days?: No Do you have a fever (greater than 100.4 F or 38 C)?: No Have you tested positive for COVID-19?: No Exposed to someone with COVID-19 in past 14 days?: No Do you have a sore throat?: No Do you have a cough?: No Do you have any weakness?: No Are you experiencing any nausea/vomitting?: No Do you have any diarrhea?: No Are you experiencing any unusual bleeding?: No Do you have any muscle aches/pain?: No Do you have any abdominal pain?: No Are you experiencing loss of taste or smell?: No Other 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 Have you received the Flu Vaccine for this season: Yes Have you received the Pneumonia Vaccine: Yes Meds Home Medications and Allergies Home Medications ?Medication ?Instructions ?Recorded ?Confirmed ?Type lisinopril 40 mg tablet 40 mg PO DAILY 04/09/25 05/27/25 History atorvastatin 80 mg tablet 80 mg PO HS #90 tabs 04/16/25 05/27/25 Rx amiodarone 200 mg tablet 200 mg PO DAILY #90 tabs 04/19/25 05/27/25 Rx metoprolol tartrate 50 mg tablet 75 mg (1.5 x 50 mg) PO BID #270 04/19/25 05/27/25 Rx tabs pantoprazole 40 mg tablet,delayed 40 mg PO BID #60 tabs 04/23/25 05/27/25 Rx release furosemide 40 mg tablet 40 mg PO DAILY 05/27/25 05/27/25 History sennosides 8.6 mg tablet 17.2 mg PO HSP PRN Constipation 05/27/25 05/27/25 History New Prescriptions to Start Prescriptions: Allergies Allergy/AdvReac Type Severity Reaction Status Date / Time No Known Allergies Allergy Verified 05/26/25 08:29 Exam Data for Last 24 hours Vital signs and Labs for Last 24 Hours: Temp Pulse Resp BP Pulse Ox O2 Del Method 98 F 60 18 169/81 H 100 Room Air 05/27/25 17:35 05/27/25 17:35 05/27/25 17:35 05/27/25 17:35 05/27/25 17:35 05/27/25 17:40 Laboratory Results - last 24 hr 05/27/25 10:35: WBC 7.4, RBC 2.60 L, Hgb 5.7 L*, Hct 20.1 L*, MCV 77.3 L, MCH 21.9 L, MCHC 28.4 L, RDW 19.1 H, Plt Count 309, MPV 9.8, Neut % (Auto) 48.5, Lymph % (Auto) 31.2, Phillips % (Auto) 9.0, Eos % (Auto) 10.3, Baso % (Auto) 0.7, Neut # (Auto) 3.6, Lymph # (Auto) 2.3, Phillips # (Auto) 0.7, Eos # (Auto) 0.8 H, Baso # (Auto) 0.1, PT 12.0, INR 1.09, APTT 24.9, Sodium 138, Potassium 4.0, Chloride 104, Carbon Dioxide 25, Anion Gap 13.0, BUN 19, Creatinine 0.80, Estimated Creat Clear 107, Estimated GFR 97, Est GFR ( Amer) 117, Glucose 100, Calcium 9.0, Total Bilirubin 0.4, AST 18, ALT 11 L, Alkaline Phosphatase 79, Total Protein 7.0 D, Albumin 4.2, Globulin 2.8, Albumin/Globulin Ratio 1.5, Lipase 67, Blood Type O Positive, Antibody Screen Negative, Crossmatch (AHG) See Detail 05/27/25 10:40: HCV Ab VANNESA w/Rflx PCR Qn Negative, HIV Ag/Ab Combo Qual Negative 05/27/25 11:30: Stool Occult Blood Negative I & O for Last 24 hours: Intake & Output 05/24/25 05/25/25 05/26/25 05/27/25 23:59 23:59 23:59 23:59 Intake Total 0 / 0 Output Total 575 / 575 Balance -575 / -575 Weight 103.136 kg Constitutional Constitutional: no acute distress *Routine HEENT Exam Head: Present normocephalic Eye: Present EOMI and PERRL ENT: Present mucous membranes moist *Routine Neck Exam Neck: Present supple; Absent lymphadenopathy *Routine Respiratory Exam Respiratory: Present CTA bilaterally *Routine Cardiovascular Exam Cardiovascular: Present RRR *Routine Abdominal Exam Abdominal: Present soft and normoactive bowel sounds; Absent tenderness *Routine Rectal Exam Rectal:: deferred *Routine Genitalia Exam Genitalia:: deferred *Routine Extremities Exam Extremities: Absent cyanosis, clubbing or edema *Routine Skin Exam Skin: Present warm; Absent rash *Routine Neurological Exam Neurological: Present alert and oriented X3 Assessment and Plan *Assessment and plan (1) GI bleed: Status: Acute Category: Medical Code(s): K92.2 - Gastrointestinal hemorrhage, unspecified Plan Shelly Nelson is a 64-year-old male with medical history of duodenal ulcer with GI bleed, CABG/CAD, 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 He was evaluated by his PCP yesterday who obtained CBC, he called his PCP this morning who advised patient to immediately go to the ED due to severe anemia. Otherwise, patient states he has had no other symptoms. He states he has had GI bleeds in the past and was intervened at with a EGD for duodenal ulcer. He denies ever having a colonoscopy. Upon arrival to the ED, Hgb 5.7 MCV 77.3. FOBT however negative. I advised ED provider to reach out to Dr. Vazquez, who agreed to perform EGD today. 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 Dr. Vazquez deemed GI bleed is likely from colon and we will plan to schedule outpatient colonoscopy in the next week. Will monitor overnight after 2 units PRBC transfusion. #Lower GI bleed #Acute on chronic microcytic anemia #Melanotic, bright red blood in stools ? Presents with 2-day onset of melanotic, bright red stools. Hemoglobin 5.7, MCV 77.3 on admission. ? 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 Dr. Vazquez deemed GI bleed is likely from colon and we will plan to schedule outpatient colonoscopy in the next week. ? Continue IV Protonix 40 mg twice daily for now, plan to transition to oral tomorrow. ? Receiving second unit of PRBC, follow-up posttransfusion H/H. ? Iron panel also shows low iron, ferritin. Ordered IV Venofer. ? Continuous cardiac telemetry. ? Follow-up morning CBC, B12, folate. #History of CABG/CAD #HFrEF #Moderate aortic stenosis #Hypertension ? Continue aspirin, atorvastatin. ? Currently euvolemic, hold home Lasix, lisinopril in the setting of GI bleed. Full code DVT prophylaxis: SCDs
[2025-05-27] MEDS: IRON SUCROSE COMPLEX 200 MG in 0.9 % SODIUM CHLORIDE 100 ML 220 MG IV (21:00)
[2025-05-27 21:11] LABS: Hematocrit 23.5 % (42.0-52.0); Hemoglobin 7.0 g/dL (14.1-18.0)
[2025-05-28] VITALS (23 sets, daily range): BP systolic 130–180; BP diastolic 64–94; PULSE 68–80; RESP 14–18; TEMP 36.4–37.1; O2SAT 94–100; BMI 31.2
[2025-05-28 04:05] LABS: Hematocrit 22.4 % (42.0-52.0); Immature Granulocytes % 0.3 %; Mean Corpuscular HGB Conc 29.5 g/dL (31.8-35.4); Mean Corpuscular Hemoglobin 22.9 pg (27.0-31.2); Mean Corpuscular Volume 77.8 fl (80-94); Nucleated Red Blood Cells % 0.3 %; Platelet Count 251 K/mm3 (142-424); Red Blood Count 2.88 M/mm3 (4.60-6.20); Red Cell Distribution Width-SD 52.7 fL; White Blood Count 6.6 K/mm3 (4.8-10.8)
[2025-05-28 04:06] LABS: Hemoglobin 6.6 g/dL (14.1-18.0)
[2025-05-28 04:12] LABS: Albumin Level 3.6 g/dl (3.5-5.0); Chloride 105 mmol/L (98-107); Potassium 3.7 mmoL/L (3.5-5.1); Sodium 137 mmol/L (136-145)
[2025-05-28 04:14] LABS: Alanine Aminotransferase 10 U/L (12-78); Blood Urea Nitrogen 14 mg/dl (9-20); Creatinine Clearance Estimated 106 mL/min (50-200); Creatinine,Serum 0.70 mg/dl (0.66-1.25); Estimated Glomerular Filt Rate 113 ml/min (>60); GFR (African American) 137 ML/MIN (>60)
[2025-05-28 04:15] LABS: Albumin/Globulin Ratio 1.4 (1.1-1.8); Alkaline Phosphatase 70 U/L (38-126); Anion Gap 10.7 mEq/L (5-15); Aspartate Amino Transferase 16 U/L (17-59); Bilirubin,Total 0.5 mg/dl (0.2-1.3); Calcium 8.9 mg/dl (8.4-10.2); Carbon Dioxide 25 mmol/L (22.0-30.0); Globulin 2.6 g/dL (1.3-3.2); Glucose 91 mg/dl (74-100); Magnesium 1.7 mg/dl (1.6-2.3); Total Protein,Serum 6.2 g/dl (6.3-8.2)
--- NOTE | 2025-05-28 06:11 | PC.NURSE ---
v/s, ox4, RA. Pt received 2 units of PRB's. H&H came back at 0400 as 6.6, provider notified. 2 more units ordered. Plan of care ongoing.
[2025-05-28] MEDS: 0.9 % SODIUM CHLORIDE 250 ML 25 ML IV (06:51)
[2025-05-28] MEDS: AMIODARONE 200MG TABLET 200 MG PO (08:15)
[2025-05-28] MEDS: PANTOPRAZOLE 40MG VIAL 40 MG IV (08:15)
--- NOTE | 2025-05-28 08:50 | P.CONS_ITS ---
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 He was evaluated by his PCP yesterday who obtained CBC, he called his PCP this morning who advised patient to immediately go to the ED due to severe anemia. He states he has had GI bleeds in the past and was intervened at with a EGD for duodenal ulcer several months ago. He did have an admission at this facility on 04/09/2025 at which time he was found to have a hemoglobin of 6.8. He denies ever having a colonoscopy. Upon arrival to the ED, Hgb 5.7. FOBT negative. Dr. 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 Dr. Vazquez deemed planned to schedule outpatient colonoscopy in the next week. He was admitted for inpatient management. Patient was transfused a total of 2 units. Posttransfusion hemoglobin was 7 with hemoglobin this morning on 05/28/2025 of 6.6 for which he has received an additional unit and posttransfusion hemoglobin is pending. Surgical consultation was ordered for acute blood loss lower GI anemia . Stool occult blood is negative. At this point patient feels well and he is hoping he can be discharged. [facility] Disclaimer: The information contained in this section may have been updated after the patient was seen, as this information can be updated by other users. 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 (Updated 05/27/25 @ 15:48 by Jose Vazquez II, MD) GI bleed Infected wound Hospital discharge follow-up Paroxysmal A-fib Anemia Encounter for annual wellness visit (AWV) in Medicare patient Foreign body sensation in left ear canal Non-ST elevation [place] (NSTEMI) Chest pain Angina pectoris ACS (acute coronary syndrome) Elevated brain natriuretic peptide (BNP) level Pleural effusion Chest pain Ileus Vomiting Left against medical advice GI bleed Anemia Bleeding ulcer History of left heart catheterization COPD (chronic obstructive pulmonary disease) Screening for malignant neoplasm of colon Encounter for screening for abdominal aortic aneurysm (AAA) in patient 50 years of age or older with history of smoking Encounter for prostate cancer screening Exposure to hepatitis C Encounter for screening for diabetes mellitus Encounter for screening examination for sexually transmitted disease Neck pain Thoracic back pain Bronchitis Need for RSV immunization Left flank pain Left sided abdominal pain Cervical radiculopathy Acute viral syndrome Pharyngitis Generalized body aches Sinusitis Scalp irritation Fatigue Eustachian tube dysfunction Cervical radiculopathy Bilateral arm pain Bilateral shoulder pain Neck pain Occult blood in stools Angina at rest Shoulder pain Neck pain Abdominal pain Nerve damage Chest pain Hypertension Exposure to COVID-19 virus Corneal abrasion Amputation of finger tip Urethral colic due to calculus Renal colic on right side Surgical History Aortic valve replaced H/O removal of cyst Hx of CABG Hx of inguinal hernia repair History of shoulder surgery History of neck surgery History of knee surgery Family History Other No significant family 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 (Updated 05/27/25 @ 13:07 by Alesia Pinon RN) Smoking Status: Former smoker tobacco type: cigarettes packs per day: 1 quit status: has quit before alcohol intake: never substance use type: denies use current occupational status: retired and disabled Travel in the last 8 weeks?: None adopted: No caregiver/support person: No foster care: No household members: friend(s) housing: apartment lives independently: Yes marital status: single number of children: 3 number of grandchildren: 7 service: Yes (discharged 1985) 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 snf: No Have you lived/traveled outside [place] in past 30 days?: No Contact w/someone who lives/traveled outside US past 30 days?: No Exposure to someone with infectious disease in past 14 days?: No Do you have a fever (greater than 100.4 F or 38 C)?: No Have you tested positive for COVID-19?: No Exposed to someone with COVID-19 in past 14 days?: No Do you have a sore throat?: No Do you have a cough?: No Do you have any weakness?: No Are you experiencing any nausea/vomitting?: No Do you have any diarrhea?: No Are you experiencing any unusual bleeding?: No Do you have any muscle aches/pain?: No Do you have any abdominal pain?: No Are you experiencing loss of taste or smell?: No Meds Home Medications and Allergies Home Medications ?Medication ?Instructions ?Recorded ?Confirmed ?Type lisinopril 40 mg tablet 40 mg PO DAILY 04/09/2505/11 History atorvastatin 80 mg tablet 80 mg PO HS #90 tabs 5 05/27/25 Rx amiodarone 200 mg tablet 200 mg PO DAILY #90 tabs 08/0505/27/25 Rx metoprolol tartrate 50 mg tablet 75 mg (1.5 x 50 mg) P O BID #270 04/19/25 05/27/25 Rx tabs pantoprazole 40 mg tablet,delayed 40 mg PO BID #60 tab s 04/23/25 05/27/25 Rx release furosemide 40 mg tablet 40 mg PO DAILY 05/27/2505/11 History sennosides 8.6 mg tablet 17.2 mg PO HSP PRN Constipat ion 05/27/25 05/27/25 History New Prescriptions to Start Prescriptions: Allergies Allergy/AdvReac Type Severity Reaction Status Date / Time No Known Allergies Allergy Verified 05/26/25 08:29 Exam (Inpt) Vital signs and Labs for Last 24 Hours: Temp Pulse Resp BP Pulse Ox O2 Del Method 98.2 F 71 17 169/80 H 98 Room Air 05/28/25 08:43 05/28/25 08:43 05/28/25 08:43 05/28/25 08:43 05/28/25 08:43 05/28/25 07:55 Laboratory Results - last 24 hr 05/27/25 10:35: WBC 7.4, RBC 2.60 L, Hgb 5.7 L*, Hct 20.1 L*, MCV 77.3 L, MCH 21.9 L, MCHC 28.4 L, RDW 19.1 H, Plt Count 309, MPV 9.8, Neut % (Auto) 48.5, Lymph % (Auto) 31.2, Lyon % (Auto) 9.0, Eos % (Auto) 10.3, Baso % (Auto) 0.7, Neut # (Auto) 3.6, Lymph # (Auto) 2.3, Lyon # (Auto) 0.7, Eos # (Auto) 0.8 H, Baso # (Auto) 0.1, PT 12.0, INR 1.09, APTT 24.9, Sodium 138, Potassium 4.0, Chloride 104, Carbon Dioxide 25, Anion Gap 13.0, BUN 19, Creatinine 0.80, Estimated Creat Clear 107, Estimated GFR 97, Est GFR ( Amer) 117, Glucose 100, Calcium 9.0, Total Bilirubin 0.4, AST 18, ALT 11 L, Alkaline Phosphatase 79, Total Protein 7.0 D, Albumin 4.2, Globulin 2.8, Albumin/Globulin Ratio 1.5, Lipase 67, Blood Type O Positive, Antibody Screen Negative, Crossmatch (AHG) See Detail 05/27/25 10:40: HCV Ab VANNESA w/Rflx PCR Qn Negative, HIV Ag/Ab Combo Qual Negative 05/27/25 11:30: Stool Occult Blood Negative 05/27/25 21:05: Hgb 7.0 L, Hct 23.5 L 05/28/25 03:56: WBC 6.6, RBC 2.88 L, Hgb 6.6 L*, Hct 22.4 L, MCV 77.8 L, MCH 22.9 L, MCHC 29.5 L, RDW 18.6 H, Plt Count 251, MPV 9.9, Neut % (Auto) 51.6, Lymph % (Auto) 27.9, Lyon % (Auto) 8.7, Eos % (Auto) 10.7, Baso % (Auto) 0.8, Neut # (Auto) 3.4, Lymph # (Auto) 1.8, Lyon # (Auto) 0.6, Eos # (Auto) 0.7 H, Baso # (Auto) 0.1, Sodium 137, Potassium 3.7, Chloride 105, Carbon Dioxide 25, Anion Gap 10.7, BUN 14 D, Creatinine 0.70, Estimated Creat Clear 106, Estimated GFR 113, Est GFR ( Amer) 137, Glucose 91, Calcium 8.9, Magnesium 1.7, Total Bilirubin 0.5, AST 16 L, ALT 10 L, Alkaline Phosphatase 70, Total Protein 6.2 L, Albumin 3.6 D, Globulin 2.6, Albumin/Globulin Ratio 1.4 I & O for Labs for Last 24 Hours: Intake & Output 05/25/25 05/26/25 05/27/25 05/28/25 11:59 11:59 11:59 11:59 Intake Total 490 / 490 Output Total 1775 / 1775 Balance -1285 / -1285 Weight 230 lb 223 lb 3.2 oz GI: Present soft; Absent tenderness Results Labs 05/28/25 03:56 05/28/25 03:56 Labs: Laboratory Results - last 24 hr 05/27/25 10:35: WBC 7.4, RBC 2.60 L, Hgb 5.7 L*, Hct 20.1 L*, MCV 77.3 L, MCH 21.9 L, MCHC 28.4 L, RDW 19.1 H, Plt Count 309, MPV 9.8, Neut % (Auto) 48.5, Lymph % (Auto) 31.2, Lyon % (Auto) 9.0, Eos % (Auto) 10.3, Baso % (Auto) 0.7, Neut # (Auto) 3.6, Lymph # (Auto) 2.3, Lyon # (Auto) 0.7, Eos # (Auto) 0.8 H, Baso # (Auto) 0.1, PT 12.0, INR 1.09, APTT 24.9, Sodium 138, Potassium 4.0, Chloride 104, Carbon Dioxide 25, Anion Gap 13.0, BUN 19, Creatinine 0.80, Estimated Creat Clear 107, Estimated GFR 97, Est GFR ( Amer) 117, Glucose 100, Calcium 9.0, Total Bilirubin 0.4, AST 18, ALT 11 L, Alkaline Phosphatase 79, Total Protein 7.0 D, Albumin 4.2, Globulin 2.8, Albumin/Globulin Ratio 1.5, Lipase 67, Blood Type O Positive, Antibody Screen Negative, Crossmatch (AHG) See Detail 05/27/25 10:40: HCV Ab VANNESA w/Rflx PCR Qn Negative, HIV Ag/Ab Combo Qual Negative 05/27/25 11:30: Stool Occult Blood Negative 05/27/25 21:05: Hgb 7.0 L, Hct 23.5 L 05/28/25 03:56: WBC 6.6, RBC 2.88 L, Hgb 6.6 L*, Hct 22.4 L, MCV 77.8 L, MCH 22.9 L, MCHC 29.5 L, RDW 18.6 H, Plt Count 251, MPV 9.9, Neut % (Auto) 51.6, Lymph % (Auto) 27.9, Lyon % (Auto) 8.7, Eos % (Auto) 10.7, Baso % (Auto) 0.8, Neut # (Auto) 3.4, Lymph # (Auto) 1.8, Lyon # (Auto) 0.6, Eos # (Auto) 0.7 H, Baso # (Auto) 0.1, Sodium 137, Potassium 3.7, Chloride 105, Carbon Dioxide 25, Anion Gap 10.7, BUN 14 D, Creatinine 0.70, Estimated Creat Clear 106, Estimated GFR 113, Est GFR ( Amer) 137, Glucose 91, Calcium 8.9, Magnesium 1.7, Total Bilirubin 0.5, AST 16 L, ALT 10 L, Alkaline Phosphatase 70, Total Protein 6.2 L, Albumin 3.6 D, Globulin 2.6, Albumin/Globulin Ratio 1.4 Assessment and Plan *Assessment and plan (1) Acute on chronic blood loss anemia: Status: Acute Category: Medical Code(s): D62 - Acute posthemorrhagic anemia Plan No indication for urgent colonoscopy at this time. Transfuse as necessary and monitor hemoglobin for response and stability.
[2025-05-28] MEDS: MAGNESIUM SULFATE IN WATER 2 GM/50 ML PIGGYBACK IV ×2 (10:28→11:59)
[2025-05-28 15:56] LABS: Hematocrit 29.3 % (42.0-52.0)
[2025-05-28 16:00] LABS: Hemoglobin 9.0 g/dL (14.1-18.0)
--- NOTE | 2025-05-28 16:09 | PC.NURSE ---
Aox 4, up ad lin, given 2 units of blood along with 2 runs of magnesium, on RA, using urinal, 20g L AC SL, 20G R AC SL, cardiac diet, Robertoran consulted.
--- NOTE | 2025-05-28 18:13 | EXP.DC.SUM ---
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 He was evaluated by his PCP yesterday who obtained CBC, he called his PCP this morning who advised patient to immediately go to the ED due to severe anemia. He states he has had GI bleeds in the past and was intervened at with a EGD for duodenal ulcer several months ago. He did have an admission at this facility on 04/09/2025 at which time he was found to have a hemoglobin of 6.8. He denies ever having a colonoscopy. Upon arrival to the ED, Hgb 5.7. FOBT negative. Dr. 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 Dr. Vazquez deemed planned to schedule outpatient colonoscopy in the next week. He was admitted for inpatient management. Patient was transfused a total of 2 units. Posttransfusion hemoglobin was 7 with hemoglobin this morning on 05/28/2025 of 6.6 for which he has received an additional unit and posttransfusion hemoglobin is pending. Surgical consultation was ordered for acute blood loss lower GI anemia . Stool occult blood is negative. At this point patient feels well and he is hoping he can be discharged. 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 He was evaluated by his PCP yesterday who obtained CBC, he called his PCP this morning who advised patient to immediately go to the ED due to severe anemia. Otherwise, patient states he has had no other symptoms. He states he has had GI bleeds in the past and was intervened at with a EGD for duodenal ulcer. He denies ever having a colonoscopy. Upon arrival to the ED, Hgb 5.7 MCV 77.3. FOBT however negative. I advised ED provider to reach out to Dr. Vazquez, who agreed to perform EGD today. 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 Dr. Vazquez deemed GI bleed is likely from colon and we will plan to schedule outpatient colonoscopy in the next week. Will monitor overnight after 2 units PRBC transfusion. #Lower GI bleed #Acute on chronic microcytic anemia #Melanotic, bright red blood in stools ? Presents with 2-day onset of melanotic, bright red stools prior to admission. Initial hemoglobin 5.7, MCV 77.3. ? 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 Dr. Vazquez deemed GI bleed is likely from colon and we will plan to schedule outpatient colonoscopy in the next week. ? Hemoglobin 9.0 s/p transfusion of 4 units of PRBC. Vital signs remained stable. Bright red bloody stools also improving. ? Given that patient has a short follow-up interval with Dr. Vazquez and stability of H/H and vital signs, we will discharge today with close follow-up with GI. ? Continue Protonix 40 mg twice daily. #History of CABG/CAD #HFrEF #Moderate aortic stenosis #Hypertension ? Continue aspirin, atorvastatin, metoprolol tartrate 75 mg twice daily. Continue lisinopril. Exam Data for Last 24 hours Vital signs and Labs for Last 24 Hours: Temp Pulse Resp BP Pulse Ox O2 Del Method 98.2 F 76 18 152/72 H 99 Room Air 05/28/25 16:00 05/28/25 16:00 05/28/25 16:00 05/28/25 16:00 05/28/25 16:00 05/28/25 18:11 Laboratory Results - last 24 hr 05/27/25 10:35: Blood Type O Positive, Antibody Screen Negative, Crossmatch (AHG) See Detail 05/27/25 21:05: Hgb 7.0 L, Hct 23.5 L 05/28/25 03:56: WBC 6.6, RBC 2.88 L, Hgb 6.6 L*, Hct 22.4 L, MCV 77.8 L, MCH 22.9 L, MCHC 29.5 L, RDW 18.6 H, Plt Count 251, MPV 9.9, Neut % (Auto) 51.6, Lymph % (Auto) 27.9, [place] % (Auto) 8.7, Eos % (Auto) 10.7, Baso % (Auto) 0.8, Neut # (Auto) 3.4, Lymph # (Auto) 1.8, [place] # (Auto) 0.6, Eos # (Auto) 0.7 H, Baso # (Auto) 0.1, Sodium 137, Potassium 3.7, Chloride 105, Carbon Dioxide 25, Anion Gap 10.7, BUN 14 D, Creatinine 0.70, Estimated Creat Clear 106, Estimated GFR 113, Est GFR ( Amer) 137, Glucose 91, Calcium 8.9, Magnesium 1.7, Total Bilirubin 0.5, AST 16 L, ALT 10 L, Alkaline Phosphatase 70, Total Protein 6.2 L, Albumin 3.6 D, Globulin 2.6, Albumin/Globulin Ratio 1.4 05/28/25 15:50: Hgb 9.0 L D, Hct 29.3 L I & O for Last 24 hours: Intake & Output 05/25/25 05/26/25 05/27/25 05/28/25 23:59 23:59 23:59 23:59 Intake Total 370 / 490 460 / 460 Output Total 1025 / 1525 950 / 950 Balance -655 / -1035 -490 / -490 Weight 103.136 kg 101.242 kg Constitutional Constitutional: no acute distress *Routine HEENT Exam Head: Present normocephalic Eye: Present EOMI and PERRL ENT: Present mucous membranes moist *Routine Neck Exam Neck: Present supple; Absent lymphadenopathy *Routine Respiratory Exam Respiratory: Present CTA bilaterally *Routine Cardiovascular Exam Cardiovascular: Present RRR *Routine Abdominal Exam Abdominal: Present soft and normoactive bowel sounds; Absent tenderness *Routine Extremities Exam Extremities: Absent cyanosis, clubbing or edema *Routine Skin Exam Skin: Present warm; Absent rash *Routine Neurological Exam Neurological: Present alert and oriented X3 Results Data Completed and Pending Labs on day of discharge: Labs from last 24 hours 05/28/25 05/28/25 05/27/25 15:50 03:56 21:05 WBC 6.6 RBC 2.88 L Hgb 9.0 L D 6.6 L* 7.0 L Hct 29.3 L 22.4 L 23.5 L MCV 77.8 L MCH 22.9 L MCHC 29.5 L RDW 18.6 H Plt Count 251 MPV 9.9 Neut % (Auto) 51.6 Lymph % (Auto) 27.9 [place] % (Auto) 8.7 Eos % (Auto) 10.7 Baso % (Auto) 0.8 Neut # (Auto) 3.4 Lymph # (Auto) 1.8 [place] # (Auto) 0.6 Eos # (Auto) 0.7 H Baso # (Auto) 0.1 Sodium 137 Potassium 3.7 Chloride 105 Carbon Dioxide 25 Anion Gap 10.7 BUN 14 D Creatinine 0.70 Estimated Creat Clear 106 Estimated GFR 113 Est GFR ( Amer) 137 Glucose 91 Calcium 8.9 Magnesium 1.7 Total Bilirubin 0.5 AST 16 L ALT 10 L Alkaline Phosphatase 70 Total Protein 6.2 L Albumin 3.6 D Globulin 2.6 Albumin/Globulin Ratio 1.4 Blood Type Antibody Screen Crossmatch ([facility]) 05/27/25 10:35 WBC RBC Hgb Hct MCV MCH MCHC RDW Plt Count MPV Neut % (Auto) Lymph % (Auto) [place] % (Auto) Eos % (Auto) Baso % (Auto) Neut # (Auto) Lymph # (Auto) [place] # (Auto) Eos # (Auto) Baso # (Auto) Sodium Potassium Chloride Carbon Dioxide Anion Gap BUN Creatinine Estimated Creat Clear Estimated GFR Est GFR ( Amer) Glucose Calcium Magnesium Total Bilirubin AST ALT Alkaline Phosphatase Total Protein Albumin Globulin Albumin/Globulin Ratio Blood Type O Positive Antibody Screen Negative Crossmatch ([facility]) See Detail DS: Diagnosis Discharge Diagnosis (1) Acute on chronic blood loss anemia: Status: Acute Code(s): D62 - Acute posthemorrhagic anemia Meds Home Medications and Allergies Home Medications ?Medication ?Instructions ?Recorded ?Confirmed ?Type lisinopril 40 mg tablet 40 mg PO DAILY 04/09/25 06/10/25 History atorvastatin 80 mg tablet 80 mg PO HS #90 tabs 04/16/25 06/10/25 Rx metoprolol tartrate 50 mg tablet 75 mg (1.5 x 50 mg) PO BID #270 04/19/25 06/10/25 Rx tabs pantoprazole 40 mg tablet,delayed 40 mg PO BID #60 tabs 04/23/25 06/10/25 Rx release sennosides 8.6 mg tablet 17.2 mg PO HSP PRN Constipation 05/27/25 06/10/25 History polyethylene glycol 3350 17 17 g PO DAILY #119 grams 05/29/25 06/10/25 Rx gram/dose oral powder (Miralax) blood pressure monitor #1 ea 06/10/25 06/10/25 Rx nifedipine 60 mg tablet,extended 60 mg PO DAILY #30 tabs 06/10/25 06/10/25 Rx release 24 hr (Procardia XL) New Prescriptions to Start Prescriptions: polyethylene glycol 3350 [Miralax] Murtaza Blanco Allergies Allergy/AdvReac Type Severity Reaction Status Date / Time No Known Allergies Allergy Verified 06/10/25 13:49 Discharge Plan Disposition Patient Disposition: Home, Self-Care Condition: Fair Discharge Order Discharge Orders: Discharge Order (Routine); Ordered 05/28/25 Ordered By: Murtaza Blnaco Follow up Plan Follow up with: Jose Vazquez II, MD [Staff Physician, Gastroenterology] - 1 week Referral Note: Office will call with follow up appointment Prescriptions/Medication Reconciliation: New polyethylene glycol 3350 [Miralax] 17 gram/dose powder 17 g PO DAILY Qty: 119 0RF Continued atorvastatin 80 mg tablet 80 mg PO HS Qty: 90 3RF metoprolol tartrate 50 mg tablet 75 mg PO BID Qty: 270 3RF pantoprazole 40 mg tablet,delayed release (DR/EC) 40 mg PO BID Qty: 60 1RF sennosides 8.6 mg tablet 17.2 mg PO HSP PRN (Reason: Constipation) lisinopril 40 mg tablet 40 mg PO DAILY No Action (DME) blood pressure monitor Kit See Rx Instructions .Route Qty: 1 0RF Rx Instructions: As directed nifedipine [Procardia XL] 60 mg tablet extended release 24hr 60 mg PO DAILY Qty: 30 2RF Problem Reconciliation Problems Reviewed?: Yes Patient Discharge Instructions Patient Instructions: DI for Gastrointestinal Bleeding, Stop Light COPD, Stop Light Heart Failure Print Language: [place] Islander Providers Primary Care Provider: Kiera Castro Admit Provider: Murtaza Blanco Attending Provider: Murtaza Blanco
--- NOTE | 2025-05-31 11:26 | SW/DCPLANNER ---
Spoke with patient on the phone. Patient stated that he is doing good. Patient stated that he did not know that he has medicine at [facility] to be picked up. Patient stated that he is aware of his upcoming appointments. Patient stated that he has no concerns or questions at this time. Carla Hwang
== END 2025-05-28 18:35 | disposition home or self-care (01) | DRG 378 ==
LOC: ER 10:21 → 2ND 12:43
PROVIDERS: Internal Medicine Gastroenterology; Nurse Practitioner Acute Care; Admitting Provider Student in an Organized Health Care Education/Training Program; Emergency Provider Student in an Organized Health Care Education/Training Program; PCP Nurse Practitioner Family; Visit Provider Student in an Organized Health Care Education/Training Program
PROC: 0DJ08ZZ Inspection of Upper Intestinal Tract, Via Natural or Artificial Opening Endoscopic (ICD-10-PCS; principal; 2025-05-27 15:30)
DX: K31.811 Angiodysplasia of stomach and duodenum with bleeding (principal); D62 Acute posthemorrhagic anemia; I50.22 Chronic systolic (congestive) heart failure; K29.51 Unspecified chronic gastritis with bleeding; K21.9 Gastro-esophageal reflux disease without esophagitis; I11.0 Hypertensive heart disease with heart failure; I25.10 Atherosclerotic heart disease of native coronary artery without angina pectoris; R53.83 Other fatigue; F17.210 Nicotine dependence, cigarettes, uncomplicated; Z95.1 Presence of aortocoronary bypass graft; Z79.899 Other long term (current) drug therapy; Z87.11 Personal history of peptic ulcer disease; Z95.4 Presence of other heart-valve replacement
CPT/HCPCS: 36430; 71045; 74174; 80053; 82272; 83690; 83735; 85014; 85018; 85025; 85610; 85730; 86803; 86850; 87389; 88305; 93005; G0328; J1756; J2003; J2470; J2704; J3475; J7050; P9016; Q9967

== ENCOUNTER 2025-06-07 12:43 | Day surgery (SDC) | payer MEDICARE, OTHER, SELFPAY ==
[2025-06-03 13:49] VITALS: BMI 43.4
--- NOTE | 2025-06-07 12:10 | EXP.HP ---
History of Present Illness *Admission Date: 06/07/25 *History of present illness: Mr. Nelson is a 64-year-old gentleman who is here for diagnostic colonoscopy secondary to iron deficiency anemia and chronic GI bleeding. He was Hemoccult positive in March 2025. The examination is deemed medically necessary for diagnostic colonoscopy. The patient has been seen, interviewed and examined prior to the procedure by both myself and the anesthesia provider. [facility] Disclaimer: The information contained in this section may have been updated after the patient was seen, as this information can be updated by other users. 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 GI bleed Infected wound Hospital discharge follow-up Paroxysmal A-fib Anemia Encounter for annual wellness visit (AWV) in Medicare patient Foreign body sensation in left ear canal Non-ST elevation ID (NSTEMI) Chest pain Angina pectoris ACS (acute coronary syndrome) Elevated brain natriuretic peptide (BNP) level Pleural effusion Chest pain Ileus Vomiting Left against medical advice GI bleed Anemia Bleeding ulcer History of left heart catheterization COPD (chronic obstructive pulmonary disease) Screening for malignant neoplasm of colon Encounter for screening for abdominal aortic aneurysm (AAA) in patient 50 years of age or older with history of smoking Encounter for prostate cancer screening Exposure to hepatitis C Encounter for screening for diabetes mellitus Encounter for screening examination for sexually transmitted disease Neck pain Thoracic back pain Bronchitis Need for RSV immunization Left flank pain Left sided abdominal pain Cervical radiculopathy Acute viral syndrome Pharyngitis Generalized body aches Sinusitis Scalp irritation Fatigue Eustachian tube dysfunction Cervical radiculopathy Bilateral arm pain Bilateral shoulder pain Neck pain Occult blood in stools Angina at rest Shoulder pain Neck pain Abdominal pain Nerve damage Chest pain Hypertension Exposure to COVID-19 virus Corneal abrasion Amputation of finger tip Urethral colic due to calculus Renal colic on right side Surgical History Aortic valve replaced H/O removal of cyst Hx of CABG Hx of inguinal hernia repair History of shoulder surgery History of neck surgery History of knee surgery Family History Other No significant family 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 Smoking Status: Former smoker tobacco type: cigarettes packs per day: 1 quit status: has quit before alcohol intake: never substance use type: denies use current occupational status: retired and disabled Travel in the last 8 weeks?: None adopted: No caregiver/support person: No foster care: No household members: friend(s) housing: apartment lives independently: Yes marital status: single number of children: 3 number of grandchildren: 7 service: Yes (discharged 1985) 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 correction: No Other 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 Have you received the Flu Vaccine for this season: No Have you received the Pneumonia Vaccine: No Review of Systems Review of Systems Review of systems (narrative): Negative *Cardiovascular Comments: Negative *Gastrointestinal Comments: Negative *Genitourinary Comments: Negative *Musculoskeletal Comments: Negative *Neurologic Comments: Negative Meds Home Medications and Allergies Home Medications ?Medication ?Instructions ?Recorded ?Confirmed ?Type lisinopril 40 mg tablet 40 mg PO DAILY 04/09/25 06/07/25 History atorvastatin 80 mg tablet 80 mg PO HS #90 tabs 04/16/25 06/07/25 Rx metoprolol tartrate 50 mg tablet 75 mg (1.5 x 50 mg) PO BID #270 04/19/25 06/07/25 Rx tabs pantoprazole 40 mg tablet,delayed 40 mg PO BID #60 tabs 04/23/25 06/07/25 Rx release furosemide 40 mg tablet 40 mg PO DAILY 05/27/25 06/07/25 History sennosides 8.6 mg tablet 17.2 mg PO HSP PRN Constipation 05/27/25 06/07/25 History ferrous sulfate 325 mg (65 mg 325 mg PO BID #60 tabs 05/29/25 06/07/25 Rx iron) tablet polyethylene glycol 3350 17 17 g PO DAILY #119 grams 05/29/25 06/07/25 Rx gram/dose oral powder (Miralax) New Prescriptions to Start Prescriptions: Allergies Allergy/AdvReac Type Severity Reaction Status Date / Time No Known Allergies Allergy Verified 06/07/25 13:43 Exam *Routine HEENT Exam Head: Present normocephalic Eye: Present EOMI and PERRL ENT: Present mucous membranes moist *Routine Neck Exam Neck: Present supple *Routine Respiratory Exam Respiratory: Present CTA bilaterally *Routine Cardiovascular Exam Cardiovascular: Present RRR *Routine Abdominal Exam Abdominal: Present soft and normoactive bowel sounds; Absent tenderness *Routine Rectal Exam Rectal:: deferred *Routine Genitalia Exam Genitalia:: deferred *Routine Extremities Exam Extremities: Absent cyanosis, clubbing or edema *Routine Skin Exam Skin: Present warm; Absent rash *Routine Neurological Exam Neurological: Present alert and oriented X3 Assessment and Plan *Assessment and plan (1) Iron deficiency anemia: Status: Acute Category: Medical Code(s): D50.9 - Iron deficiency anemia, unspecified (2) Acute on chronic blood loss anemia: Status: Acute Category: Medical Code(s): D62 - Acute posthemorrhagic anemia (3) Positive occult stool blood test: Status: Acute Category: Medical Code(s): R19.5 - Other fecal abnormalities Plan A/P: 1. Iron deficiency anemia with recent hospital admission for blood transfusion and recently positive fecal Hemoccult is the preprocedural diagnosis. The patient has never had a colonoscopy. The patient will be anesthetized/sedated using MAC sedation. The patient has been seen and examined. Cardiac and lung assessment prior to the examination is stable. Proceed with planned diagnostic colonoscopy.
[2025-06-07 13:55] VITALS: BP 201/99; PULSE 67; RESP 18; TEMP 36.2; O2SAT 99; BMI 31.1
--- NOTE | 2025-06-07 14:24 | P.PNANES_ITS ---
[facility] Disclaimer: The information contained in this section may have been updated after the patient was seen, as this information can be updated by other users. 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 GI bleed Infected wound Hospital discharge follow-up Paroxysmal A-fib Anemia Encounter for annual wellness visit (AWV) in Medicare patient Foreign body sensation in left ear canal Non-ST elevation LA (NSTEMI) Chest pain Angina pectoris ACS (acute coronary syndrome) Elevated brain natriuretic peptide (BNP) level Pleural effusion Chest pain Ileus Vomiting Left against medical advice GI bleed Anemia Bleeding ulcer History of left heart catheterization COPD (chronic obstructive pulmonary disease) Screening for malignant neoplasm of colon Encounter for screening for abdominal aortic aneurysm (AAA) in patient 50 years of age or older with history of smoking Encounter for prostate cancer screening Exposure to hepatitis C Encounter for screening for diabetes mellitus Encounter for screening examination for sexually transmitted disease Neck pain Thoracic back pain Bronchitis Need for RSV immunization Left flank pain Left sided abdominal pain Cervical radiculopathy Acute viral syndrome Pharyngitis Generalized body aches Sinusitis Scalp irritation Fatigue Eustachian tube dysfunction Cervical radiculopathy Bilateral arm pain Bilateral shoulder pain Neck pain Occult blood in stools Angina at rest Shoulder pain Neck pain Abdominal pain Nerve damage Chest pain Hypertension Exposure to COVID-19 virus Corneal abrasion Amputation of finger tip Urethral colic due to calculus Renal colic on right side Surgical History Aortic valve replaced H/O removal of cyst Hx of CABG Hx of inguinal hernia repair History of shoulder surgery History of neck surgery History of knee surgery Family History Other No significant family 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 Smoking Status: Former smoker tobacco type: cigarettes packs per day: 1 quit status: has quit before alcohol intake: never substance use type: denies use current occupational status: retired and disabled Travel in the last 8 weeks?: None adopted: No caregiver/support person: No foster care: No household members: friend(s) housing: apartment lives independently: Yes marital status: single number of children: 3 number of grandchildren: 7 service: Yes (discharged 1985) 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 long term: No Have you lived/traveled outside [place] in past 30 days?: No Contact w/someone who lives/traveled outside US past 30 days?: No Exposure to someone with infectious disease in past 14 days?: No Do you have a fever (greater than 100.4 F or 38 C)?: No Have you tested positive for COVID-19?: No Exposed to someone with COVID-19 in past 14 days?: No Do you have a sore throat?: No Do you have a cough?: No Do you have any weakness?: No Do you have any diarrhea?: No Are you experiencing any unusual bleeding?: No Do you have any muscle aches/pain?: No Do you have any abdominal pain?: No Are you experiencing loss of taste or smell?: No [facility] Anesthesia Checklist Patient Identification Patient Identification: Arm Band and Family Structural Data Admitted From: Home Planned Operative Procedure/s: Colonoscopy Consent for Planned Operative Procedure(s) Verified: Yes Verified Documents: Surgical Consent and History and Physical NPO Status Verified Time NPO: 00:00 Additional verifications Patient : No Anesthesia Reactions: No Hx Blood Transfusions: Yes Blood Transfusion Reaction: No Cephalosporin Allergy: No Previous Colonoscopy: No Airway Assessment Mallampati Score:: Class II C-Spine Mobility Assessed: Yes TMJ Mobility Assessed: Yes Dentition: Edentulous Neurological Assessment Level of Consciousness: Awake, Alert, Appropriate and Follows Commands Hx Seizures: No Numbness or tingling in extremities: No Anesthesia Plan Anesthesia Risk discussed: Yes ASA Class: III Anesthesia Type: MAC Preoperative Comments Pre-Operative Comments: History of CABG two months ago.
--- NOTE | 2025-06-07 14:32 | SUR.PREOP ---
Asked by anesthesia to contact Cardiology regarding pt's HTN in preop. Spoke to JAIME Dunn and PA stated he is fine to proceed, but it up to anesthesia's discretion and to make pt a follow up appt to adjust BP meds. Relayed message to BUCK Boucher and MILITARY ANALYST requested for an updated cardiac clearance letter stating this. Spoke to Lavinia in cardiology who will request updated clearance letter from cardiology.
--- NOTE | 2025-06-07 15:42 | HMH.PROCNOTE ---
[facility] Procedure Note Date: 06/07/25 Time: 15:58 Procedure Note:: Colonoscopy Procedure Report: Colonoscopy with APC ablation Endoscopist: Jose Vazquez II, MD Referring physician: ROSA Garza Date of Procedure: June 07, 2025 Equipment: Olympus [id number] adult colonoscope Sedation: MAC sedation Indication: Mr. Nelson is a 64-year-old gentleman that presented for hospital admission last week with symptomatic anemia and iron deficiency. His hemoglobin and hematocrit were 5.7 and 20.2 with microcytic indices. His serum iron 26, ferritin 12.0 and iron saturation 6.32% were consistent with iron deficiency anemia. He did have a STEMI at the [facility] in March 2025. He presented with some bright red rectal bleeding recently. He was Hemoccult positive in March 2025. His EGD showed duodenal angiodysplasias x 2 that were ablated using APC. He has never had a colonoscopy. He reports no family history of colon cancer. Procedure: Prior to the procedure, a history and physical exam was performed, and patient's medications and allergies were reviewed. The risks, benefits and alternatives of the sedation and procedure were discussed with the patient. All questions were answered and informed consent was obtained. The patient was brought to the procedure room. Patient identification and proposed procedure were verified by the physician and the nurse. The patient was placed in a left lateral decubitus position and the scope was passed under direct vision. Throughout the procedure, the patient's blood pressure, pulse, and oxygen saturations were monitored continuously. The colonoscopy was accomplished without difficulty. The patient tolerated the procedure well. Findings: On digital rectal examination there was normal rectal tone. There were no external hemorrhoids. The prostate was 2+, moderate to markedly firm especially along the left margin. There were no nodules. The colonoscope was introduced through the anal canal to the rectum and advanced to the cecum. The ileocecal valve and appendiceal orifice were identified. The scope was advanced a short distance into the ileum which appeared grossly normal. The scope was then withdrawn into the colon. The preparation was fair to poor. There was a lot of liquid brown stool and residue. Vigorous washings were performed throughout to see the mucosa. Within the cecum, there was an actively streaming angiodysplasia with venous blood streaming. This was ablated using APC (argon plasma coagulation). There were 2 other AVMs (cecum and transverse) which were nonbleeding but also ablated. After his vigorous washings of the remainder of the cecum, ascending, transverse, descending, sigmoid and rectum had no large polyps or significant mucosal lesions identified. There were a few diverticuli in the sigmoid colon. Upon retroflexion within the rectum there were grade 2 internal hemorrhoids. The preparation was fair to poor throughout with [place] Preparation Score of 5-6 out of 9. The cecal time was 14 minutes. Impression: 1. 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 2 additional angiodysplasia/AVMs (cecum and transverse) also ablated 3. Sigmoid diverticulosis 4. Grade 2 internal hemorrhoids 5. Firm asymmetric prostate Plan: I will discussed the findings with the patient and family.
[2025-06-07 16:00] VITALS: BP 122/70; PULSE 53; RESP 18; TEMP 36.4; O2SAT 98
[2025-06-07 16:10] VITALS: BP 131/67; PULSE 54; RESP 18; TEMP 36.4; O2SAT 99
[2025-06-07 16:20] VITALS: BP 134/47; PULSE 60; RESP 18; TEMP 36.4; O2SAT 99
[2025-06-07 16:30] VITALS: BP 137/56; PULSE 59; RESP 18; TEMP 36.4; O2SAT 99
== END 2025-06-07 16:31 | disposition home or self-care (01) ==
PROVIDERS: PCP Nurse Practitioner Family; Visit Provider Internal Medicine Gastroenterology
PROC: 0DJD8ZZ Inspection of Lower Intestinal Tract, Via Natural or Artificial Opening Endoscopic (ICD-10-PCS; CPT 45378; principal; 2025-06-07 14:30)
DX: K55.20 Angiodysplasia of colon without hemorrhage (principal); K57.30 Diverticulosis of large intestine without perforation or abscess without bleeding; K64.1 Second degree hemorrhoids; I24.9 Acute ischemic heart disease, unspecified; D64.9 Anemia, unspecified; I10 Essential (primary) hypertension; I25.10 Atherosclerotic heart disease of native coronary artery without angina pectoris; Z95.1 Presence of aortocoronary bypass graft; Z87.891 Personal history of nicotine dependence; Z79.899 Other long term (current) drug therapy
CPT/HCPCS: 45388; C2618; J2003; J2704

== ENCOUNTER 2025-06-21 09:59 | Outpatient (CLI) | payer MEDICARE, OTHER, SELFPAY ==
--- OUTSIDE RECORDS SUMMARY | 2025-06-21 10:09 | XMS_ITS ---
Author Organization Healthcare Address [address] [place] [address] Care Team Providers Care Gasoline Catalyst Operator Name Role Phone Kiera Castro APRN Primary Care Provider [phone] Transitional Care Management Status:Closed (Closed) Start date:04/01/2025 Enrollment date:04/06/2025 Enrollment reason:Identified using hospital discharge data End date:05/01/2025 Close reason:Patient graduated Overview This episode type is for outpatient care managers enrolling patients in the [facility] Transitional Care Management program. Continued Care and Services Coordination
--- OUTSIDE RECORDS SUMMARY | 2025-06-21 10:09 | XMS_ITS | Encounter Summary ---
Author Organization Healthcare Address [address] [place] [address] Care Team Providers Care Sewer Pipe Layer Helper Name Role Phone Kiera Castro APRN Primary Care Provider [phone] Encounter Details Date Type Department Care Team (Late st Contact Info) Description 05/04/2025 Telephone [facility] [address], [address] [place] [address] Lata Sahu MD [address] [place] [address] Social History Tobacco Use Types [...] any time in the past 12 m [facility], were you homeless or living [...] Description 08/03/2025 12:40 PM EDT Office Visit [facility] [address] [place] [address] Dimitrios Wright MD [address] [place] [id number] documented as of this encounter Goals Goal [...] documented as of this encounter Care Teams Sewer Pipe Layer Helper Relationship Specialty Start Date End Date Kiera Castro, TUMBLER OPERATOR [address] [place] [address] PCP - General 02/17/25 documented as of this encounter
--- OUTSIDE RECORDS SUMMARY | 2025-06-21 10:09 | XMS_ITS | Clinical Summary ---
Author Organization Healthcare Address [address] 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 03/31/20 25 Active sucralfate (Carafate) 1 GM/10ML suspension Take 10 mL by mouth 4 times a day before meals and nightly. 1200 mL 03/31/20 25 Active pantoprazole (Protonix) 40 MG EC tablet Take 1 tablet by mouth 2 times a day. Do not crush, chew, or split. 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 2. 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 Moderate (peak gradient velocity 3.2 m/s. Mean AV gradient 22 mmHg. Max gradient 40 mmHg. PETE 1.4 cm sq. 02/21: s/p 4vCABG and bioprosthetic AVR. Aortic valve intact with no significant AI on post TAYLOR. NSTEMI (non-ST elevated myoc ardial infarction) 02/16/2025 03/02/2025 Overview (02/21/2025): S/p 4vCABG on 02/21 Encounters Date Type Department Care Team Description 05/04/2025 Telephone [facility] Cardiothoracic [address], [address] [place] [address] Lata Sahu MD 04/08/2025 Patient Outreach [address], [facility] [address] [place] [address] Lucero Stafford LPN Follow-up 04/06/2025 Patient Outreach [address], [address] [place] [address] Lucero Stafford LPN TCM Call 04/02/2025 Patient Outreach [address], [address] [place] [address] Lucero Stafford LPN TCM Call 04/01/2025 Patient Outreach [address], [facility] [address] [place] [address] Lucero Stafford LPN TCM Call 03/25/2025 5:04 PM EDT Anesthesia Event [facility] [address] [place] [address] Cristofer Delacruz MD Sparks, Starr N, BUCK 03/25/2025 3:17 AM EDT - 03/31/2025 12:30 PM EDT Hospital Encounter [facility] Inpatient [address] [place] [address] Naga Hidalgo MD Sagheer, Iqra, MD Khalid, Muhammad Fahad, MD Wolak, Megan M, MD Acute GI bleeding (Primary Dx); Severe anemia; Generalized weakness; Upper GI bleeding; Persistent atrial fibrillation (CMS/HCC); Duodenal ulcer Discharge Disposition: Home-Health Care [facility] 03/25/2025 Travel from Last 3 Months Social History Tobacco [...] any time in the past 12 m [facility], were you homeless or living in a detention (including now)? No 04/06/2025 Utilities Answer Date Recorded In the past 12 months has e electric, gas, oil, or water company [...] Description 08/03/2025 12:40 PM EDT Office Visit [facility] [place] [address] [facility] [place] [address] Dimitrios Wright MD [address] [place] [address] Health Maintenance Due Date Last Done Comments [facility]-Depression Screening 1958 [facility]-Medicare Annual Wellness (AWV) 1958 [facility]-Infant/Child/Adol SDOH Screenings 1958 [facility]-DTaP,Tdap,and Td Vaccines (1 - Tdap) 1977 [facility]-Pneumococcal Vaccine: 50+ Years (1 of 2 - PCV) 1977 CT Colonography 2003 Colonoscopy 2003 FIT-DNA 2003 FIT 2003 FOBT 2003 Sigmoidoscopy 2003 [facility]-Colorectal Cancer Screening 2003 [facility]-Zoster Vaccines (1 of 2) 2008 [facility]-Abdominal Aortic Aneurysm (AAA) Screening 2023 [id number] Vaccine ( season) 2024 04/26/2021, 03/29/2021 [facility]-Influenza [...] Moeller, RN Medical Devices Implanted Type Area Paragliding Instructor Device Identifier Shelf Expiration Date Model / Serial / Lot Valve Aortic Inspiris Resilia 29mm - [id number] - [id number] Implanted:Qty: 1 on 02/21/2025 by Lata Sahu MD at [facility]-[id number] 09/22/2029 [id number] / [id number] / [id number] Description:We do not rinse Inspirus Valves. Pledget Ptfe Sigurd 4.8mm X 6mm - [id number] Implanted:02/21 by Lata Sahu MD at [facility] (Quantity not on file) [employer]-[id number] / / Pledget Ptfe Sigurd 4.8mm X 6mm - [id number] Implanted:02/21 by Lata Sahu MD at [facility] (Quantity not on file) [employer]-[id number] / / Procedures Procedure Name Priority Date/Time [...] OXYGEN THERAPY STAT 03/25/2025 3:28 AM EDT HEPATITIS C ANTIBODY W/REFLEX TO HCV QUANT PCR Routine 02/21/2025 10:36 PM EDT from Last 3 Months or Most Recently Relevant to Health Maintenance Results * (ABNORMAL) CBC and Differential (03/31/2025 4:17 AM EDT) Only the most recent of6 resultswithin the time period is included. WBC Count 5.55 3.70 - 10.30 10*3/uL LAB HEMATOLOGY METHOD 03/31/2025 4:41 AM EDT [facility] RBC Count 2.57(L) 4.60 - 6.10 10*6/uL LAB HEMATOLOGY METHOD 03/31/2025 4:41 AM EDT [facility] HGB 7.6(L) 13.7 - 17.5 g/dL LAB HEMATOLOGY METHOD 03/31/2025 4:41 AM EDT [facility] HCT 24.7(L) 40.0 - 51.0 % LAB HEMATOLOGY METHOD 03/31/2025 4:41 AM EDT [facility] Platelet Count 218 155 - 369 10*3/uL LAB HEMATOLOGY METHOD 03/31/2025 4:41 AM EDT [facility] MCV 96 79 - 98 fL LAB HEMATOLOGY METHOD 03/31/2025 4:41 AM EDT [facility] MCH 29.6 26.0 - 32.0 pg LAB HEMATOLOGY METHOD 03/31/2025 4:41 AM EDT [facility] MCHC 30.8 30.7 - 35.5 g/dL LAB HEMATOLOGY METHOD 03/31/2025 4:41 AM EDT [facility] RDW 19.1(H) 11.5 - 14.5 % LAB HEMATOLOGY METHOD 03/31/2025 4:41 AM EDT [facility] MPV 10.4 8.8 - 12.5 fL LAB HEMATOLOGY METHOD 03/31/2025 4:41 AM EDT [facility] nRBC 0.0 <=0.0 per 100 WBCs LAB HEMATOLOGY METHOD 03/31/2025 4:41 AM EDT [facility] Differential Type Automated LAB HEMATOLOGY METHOD 03/31/2025 4:41 AM EDT [facility] Neutrophils % 43 % LAB HEMATOLOGY METHOD 03/31/2025 4:41 AM EDT [facility] Lymphocytes % 46 % LAB HEMATOLOGY METHOD 03/31/2025 4:41 AM EDT [facility] Monocytes % 6 % LAB HEMATOLOGY METHOD 03/31/2025 4:41 AM EDT [facility] Eosinophils % 3 % LAB HEMATOLOGY METHOD 03/31/2025 4:41 AM EDT [facility] Basophils % 1 % LAB HEMATOLOGY METHOD 03/31/2025 4:41 AM EDT [facility] Immature Granulocytes % 1 % LAB HEMATOLOGY METHOD 03/31/2025 4:41 AM EDT [facility] Neutrophils Absolute 2.41 1.60 - 6.10 10*3/uL LAB HEMATOLOGY METHOD 03/31/2025 4:41 AM EDT [facility] Lymphocytes Absolute 2.53 1.20 - 3.90 10*3/uL LAB HEMATOLOGY METHOD 03/31/2025 4:41 AM EDT [facility] Monocytes Absolute 0.33 0.30 - 0.90 10*3/uL LAB HEMATOLOGY METHOD 03/31/2025 4:41 AM EDT [facility] Eosinophils Absolute 0.17 0.00 - 0.50 10*3/uL LAB HEMATOLOGY METHOD 03/31/2025 4:41 AM EDT [facility] Basophils Absolute 0.05 0.00 - 0.10 10*3/uL LAB HEMATOLOGY METHOD 03/31/2025 4:41 AM EDT [facility] Immature Granulocytes Absolute 0.06 0.00 - 0.06 10*3/uL LAB HEMATOLOGY METHOD 03/31/2025 4:41 AM EDT [facility] Blood Venous blood specimen / Unknown Venipuncture / Unknown 03/31/2025 4:17 AM EDT 03/31/2025 4:29 AM EDT [facility] - 03/31/2025 4:41 AM EDT Therapeutic decision making should be based on absolute values, rather than percentages. Yin Christopher MD LAB BLOOD ORDERABLES Fi nal Result Performing Organization Address [facility] Co de Phone Number [facility] [address] [place] [address] * (ABNORMAL) Magnesium, Plasma (03/31/2025 4:17 AM EDT) Only the most recent of5 resultswithin the time period is included. Magnesium, Plasma 1.7(L) 1.9 - 2.4 mg/dL 03/31/2025 4:57 AM EDT [facility] Blood Venous blood specimen / Unknown Venipuncture / Unknown 03/31/2025 4:17 AM EDT 03/31/2025 4:27 AM EDT Yin Christopher MD LAB BLOOD ORDERABLES Fi nal Result Performing Organization Address [facility] de Phone Number [facility] [address] [place] [address] * (ABNORMAL) Comprehensive Metabolic Panel, Plasma (03/31/2025 4:17 AM EDT) Only the most recent of5 resultswithin the time period is included. Glucose, Plasma 125(H) 74 - 99 mg/dL 03/31/2025 4:57 AM EDT [facility] BUN, Plasma 28(H) 8 - 23 mg/dL 03/31/2025 4:57 AM EDT [facility] Creatinine, Plasma 0.72 0.70 - 1.20 mg/dL 03/31/2025 4:57 AM EDT [facility] BUN/Creatinine Ratio 39 03/31/2025 4:57 AM EDT [facility] Sodium, Plasma 136 136 - 145 mmol/L 03/31/2025 4:57 AM EDT [facility] Potassium, Plasma 4.1 3.6 - 4.9 mmol/L 03/31/2025 4:57 AM EDT [facility] Chloride, Plasma 106 97 - 107 mmol/L 03/31/2025 4:57 AM EDT [facility] CO2, Plasma 22 22 - 29 mmol/L 03/31/2025 4:57 AM EDT [facility] Anion Gap 8 6 - 16 mmol/L 03/31/2025 4:57 AM EDT [facility] Total Calcium, Plasma 8.1(L) 8.9 - 10.2 mg/dL 03/31/2025 4:57 AM EDT [facility] Total Protein 5.0(L) 6.3 - 7.9 g/dL 03/31/2025 4:57 AM EDT [facility] Albumin, Plasma 2.8(L) 3.5 - 5.2 g/dL 03/31/2025 4:57 AM EDT [facility] AST, Plasma 24 10 - 50 U/L 03/31/2025 4:57 AM EDT [facility] ALT, Plasma 14 10 - 50 U/L 03/31/2025 4:57 AM EDT [facility] Alkaline Phosphatase, Plasma 106 40 - 115 U/L 03/31/2025 4:57 AM EDT [facility] Total Bilirubin, Plasma 0.3 0.2 - 1.1 mg/dL 03/31/2025 4:57 AM EDT [facility] eGFRcr 100.8 mL/min/1.7 3m*2 03/31/2025 4:57 AM EDT [facility] Comment:Reported eGFRcr in m L/min/1.73m2 is based the CKD-EPI 2020 equation that does not use a race coefficient. Blood Venous blood specimen / Unknown Venipuncture / Unknown 03/31/2025 4:17 AM EDT 03/31/2025 4:27 AM EDT us Yin Christopher MD LAB BLOOD ORDERABLES Fi nal Result [facility] [address] [place] [address] * Phosphorus, Plasma (03/30/2025 4:52 AM EDT) Only the most recent of4 resultswithin the time period is included. Phosphorus, Plasma 3.3 2.5 - 4.5 mg/dL 03/30/2025 5:36 AM EDT [facility] Blood Venous blood specimen / Unknown Venipuncture / Unknown 03/30/2025 4:52 AM EDT 03/30/2025 5:04 AM EDT Yin Christopher MD LAB BLOOD ORDERABLES Fi nal Result Performing Organization Address City/[facility]/ZIP Co de Phone Number [facility] [address] [place] [address] * Transfuse RBC (03/29/2025 12:59 PM EDT) Only the most recent of2 resultswithin the time period is included. Yin Christopher MD BLOOD TRANSFUSION ORDER CASTILLO Final Result * Prepare Leukocyte Reduced RBC: 1 Units (03/29/2025 8:37 AM EDT) Only the most recent of2 resultswithin the time period is included. Product Code E1145G56 BLOO D BANK Dispense Status Transfused BLOOD BANK Blood Expiration Date [id number] BLOOD BANK Unit Number [id number] CH B LOOD BANK Product Blood Type 5100 BLOOD BANK Blood Type O+ BLOOD BANK Crossmatch Compatible BLOOD BANK Other Yin Christopher MD BLOOD BANK PRODUCT ORDE RABLES Final Result Performing Organization Address City/[facility] Co de Phone Number BLOOD BANK [address] [place] [address], * Type and screen (03/29/2025 6:05 AM EDT) Only the most recent of2 resultswithin the time period is included. ABO/Rh [...] ORDERA BLES Final Result BLO[facility] BANK [address] [place] [address], * (ABNORMAL) Occult Blood, Fecal by Immunoassay (SO) (03/28/2025 4:18 PM EDT) Occult Blood, Fecal Immunosay Interpretation Positive( A) 03/31/2025 10:15 AM EDT [facility] ([employer]) Stool Non-blood Collection / Unknown 03/28/2025 4:18 PM EDT 03/28/2025 4:27 PM EDT Narrative [facility] ([facility]) - 03/31/2025 10:15 AM EDT INTERPRETIVE INFORMATION: Fecal Occult Blood by Immunoassay No single cutoff provides superior colorectal cancer detection rates. The test arcade game technician recommends the use of a 100 ng/mL cutoff that produces a specificity of approximately 95 percent for the detection of lower gastrointestinal bleeding. This test does not detect upper gastrointestinal bleeding. Performed By: [facility] [address] [place] [address] Certified Medication Aide: Wilfrid Carr MD, PhD CLIA Number: [id number] Ramez Ma APRN, JESSE LAB REF LAB BLOOD AND FLUID ORD Final Result Performing Organization Address City/[facility]/ZIP Co de Phone Number [facility] ([facility]AK[facility]) [address] [place] [address] * Helicobacter pylori Antigen (03/28/2025 4:18 PM EDT) Helicobacter pylori Antigen Result Negative Negative 03/28/2025 5:39 PM EDT [facility] Stool Rectum structure / Unknown Non-blood Collection / Unknown 03/28/2025 4:18 PM EDT 03/28/2025 4:33 PM EDT Yin Christopher MD LAB MICROBIOLOGY - GENE RAL ORDERABLES Final Result [facility] [address] [place] [address] * (ABNORMAL) CBC W/O Differential (03/28/2025 12:15 PM EDT) Only the most recent of2 resultswithin the time period is included. WBC Count 6.21 3.70 - 10.30 10*3/uL LAB HEMATOLOGY METHOD 03/28/2025 12:29 PM EDT [facility] RBC Count 2.38(L) 4.60 - 6.10 10*6/uL LAB HEMATOLOGY METHOD 03/28/2025 12:29 PM EDT [facility] HGB 7.0(L) 13.7 - 17.5 g/dL LAB HEMATOLOGY METHOD 03/28/2025 12:29 PM EDT [facility] HCT 22.6(L) 40.0 - 51.0 % LAB HEMATOLOGY METHOD 03/28/2025 12:29 PM EDT [facility] Platelet Count 215 155 - 369 10*3/uL LAB HEMATOLOGY METHOD 03/28/2025 12:29 PM EDT [facility] MCV 95 79 - 98 fL LAB HEMATOLOGY METHOD 03/28/2025 12:29 PM EDT [facility] MCH 29.4 26.0 - 32.0 pg LAB HEMATOLOGY METHOD 03/28/2025 12:29 PM EDT [facility] MCHC 31.0 30.7 - 35.5 g/dL LAB HEMATOLOGY METHOD 03/28/2025 12:29 PM EDT [facility] RDW 21.1(H) 11.5 - 14.5 % LAB HEMATOLOGY METHOD 03/28/2025 12:29 PM EDT [facility] MPV 10.3 8.8 - 12.5 fL LAB HEMATOLOGY METHOD 03/28/2025 12:29 PM EDT [facility] nRBC 0.0 <=0.0 per 100 WBCs LAB HEMATOLOGY METHOD 03/28/2025 12:29 PM EDT [facility] Blood Venous blood specimen / Unknown Venipuncture / Unknown 03/28/2025 12:15 PM EDT 03/28/2025 12:22 PM EDT us Yin Christopher MD LAB BLOOD ORDERABLES Fi nal Result Performing Organization Address [facility] Co de Phone Number [facility] [address] [place] [address] * (ABNORMAL) Hemoglobin and Hematocrit, Blood (03/28/2025 12:32 AM EDT) Only the most recent of12 resultswithin the time period is included. HGB 7.1(L) 13.7 - 17.5 g/dL LAB HEMATOLOGY METHOD 03/28/2025 1:01 AM EDT [facility] HCT 22.7(L) 40.0 - 51.0 % LAB HEMATOLOGY METHOD 03/28/2025 1:01 AM EDT [facility] Blood Venous blood specimen / Unknown Venipuncture / Unknown 03/28/2025 12:32 AM EDT 03/28/2025 12:45 AM EDT us Ramez Ma APRN, DNP LAB BLOOD ORDERAB LES Final Result Performing Organization Address [facility] Co de Phone Number [facility] [address] [place] [address] * (ABNORMAL) Basic metabolic panel (03/26/2025 12:17 AM EDT) Only the most recent of2 resultswithin the time period is included. Glucose, Plasma 99 74 - 99 mg/dL 03/26/2025 12:54 AM EDT [facility] BUN, Plasma 24(H) 8 - 23 mg/dL 03/26/2025 12:54 AM EDT [facility] Creatinine, Plasma 0.75 0.70 - 1.20 mg/dL 03/26/2025 12:54 AM EDT [facility] BUN/Creatinine Ratio 32 03/26/2025 12:54 AM EDT [facility] Sodium, Plasma 137 136 - 145 mmol/L 03/26/2025 12:54 AM EDT [facility] Potassium, Plasma 4.1 3.6 - 4.9 mmol/L 03/26/2025 12:54 AM EDT [facility] Chloride, Plasma 107 97 - 107 mmol/L 03/26/2025 12:54 AM EDT [facility] CO2, Plasma 19(L) 22 - 29 mmol/L 03/26/2025 12:54 AM EDT [facility] Anion Gap 11 6 - 16 mmol/L 03/26/2025 12:54 AM EDT [facility] Total Calcium, Plasma 7.9(L) 8.9 - 10.2 mg/dL 03/26/2025 12:54 AM EDT [facility] eGFRcr 99.5 mL/min/1.7 3m*2 03/26/2025 12:54 AM EDT [facility] Comment:Reported eGFRcr in m L/min/1.73m2 is based the CKD-EPI 2020 equation that does not use a race coefficient. Blood Venous blood specimen / Unknown Venipuncture / Unknown 03/26/2025 12:17 AM EDT 03/26/2025 12:26 AM EDT us Ramez Ma APRN, JESSE LAB BLOOD ORDERAB LES Final Result [facility] [address] [place] [address] * EGD MEAGAN AGGARWAL; 03/25/2025 (03/25/2025 5:22 [...] abdominal pain, fever, gastrointestinal bleeding and call insulation hoseman GI if present. - Findings and recommendations were discussed with patient. - Findings and recommendations to be conveyed to primary team. Indication Acute GI bleeding Medications See anesthesia record for anesthesia administered medications. Staff Staff Role Elbert Monreal CRNA CRNA Hansberry, Jolynn Endo Nuclear Spectroscopist Betsy Ellis RN Endo Nurse Meagan Aggarwal [...] Suspect ulcer in bulb contributing to anemia. us Yin Christopher MD GI PROCEDURE ORDERABLES Final Result * (ABNORMAL) Troponin T, High Sensitivity, 2 Hour, Plasma (03/25/2025 8:28 AM EDT) Troponin T, High Sensitivity, 2 Hour 74(H) <19 ng/L 03/25/2025 9:14 AM EDT [facility] Troponin Delta 3 <10 ng/L 03/25/2025 9:14 AM EDT [facility] Troponin Delta Interpretation Not Significant 03/25/2025 9:[address] [facility] Comment:Not Significant. No acute change in troponin observed between the baseline and 2 hour samples. Blood Venous blood specimen / Unknown Venipuncture / Unknown 03/25/2025 8:28 AM EDT 03/25/2025 8:44 AM EDT us Ramezluz Ma APRN, JESSE LAB BLOOD ORDERAB LES Final Result Performing Organization Address City/[facility] de Phone Number [facility] [address] [place] [address] * (ABNORMAL) Troponin T, High Sensitivity, 0 Hour Plasma, Reflex to 2 Hour (03/25/2025 6:23 AM EDT) Only the most recent of2 resultswithin the time period is included. Troponin T, High Sensitivity, 0 Hour 77(H) <19 ng/L 03/25/2025 6:[address] [facility] Blood Venous blood specimen / Unknown Venipuncture / Unknown 03/25/2025 6:23 AM EDT 03/25/2025 6:29 AM EDT us Ramez Ma APRN, DNP LAB BLOOD ORDERAB LES Final Result Performing Organization Address [facility] de Phone Number [facility] [address] [place] [address] * Lactate, venous (03/25/2025 6:23 AM EDT) Lactate, Venous, Whole Blood 0.8 0.5 - 2.2 mmol/L LAB HEMATOLOGY METHOD 03/25/2025 6:28 AM EDT [facility] Blood Venous blood specimen / Unknown Venipuncture / Unknown 03/25/2025 6:23 AM EDT 03/25/2025 6:27 AM EDT us Ramezluz Ma APRN, JESSE LAB BLOOD ORDERAB LES Final Result Performing Organization Address City/[facility] Co de Phone Number [facility] [address] [place] [address] * Haptoglobin (03/25/2025 6:23 AM EDT) Haptoglobin, Serum 167 40 - 219 mg/dL 03/25/2025 6:59 AM EDT [facility] Blood Venous blood specimen / Unknown Venipuncture / Unknown 03/25/2025 6:23 AM EDT 03/25/2025 6:29 AM EDT us Ramez N Aylabetamanna LIFELINE REPRESENTATIVES, DNP LAB BLOOD ORDERAB LES Final Result Performing Organization Address City/[facility] Co de Phone Number [facility] [address] [place] [address] * (ABNORMAL) Iron & Total Iron Binding Capacity, Plasma (Includes Transferrin) (03/25/2025 3:36 AM EDT) Iron, Plasma 81 50 - 170 ug/dL 03/25/2025 6:04 AM EDT [facility] Transferrin, Plasma 195(L) 200 - 360 mg/dL 03/25/2025 6:04 AM EDT [facility] Total Iron Binding Capacity, Plasma 244 240 - 450 ug/mL 03/25/2025 6:04 AM EDT [facility] Transferrin Saturation 33 14 - 50 % 03/25/2025 6:04 AM EDT [facility] Blood Venous blood specimen / Unknown Venipuncture / Unknown 03/25/2025 3:36 AM EDT 03/25/2025 3:50 AM EDT us Ramez N Aylabetamanna LIFELINE REPRESENTATIVES, DNP LAB BLOOD ORDERAB LES Final Result Performing Organization Address City/[facility]/ZIP Co de Phone Number [facility] [address] [place] [address] * C-reactive protein (03/25/2025 3:36 AM EDT) CRP, Plasma 6.3 <=8.0 mg/L 03/25/2025 6:04 AM EDT [facility] Blood Venous blood specimen / Unknown Venipuncture / Unknown 03/25/2025 3:36 AM EDT 03/25/2025 3:50 AM EDT Narrative [facility] - 03/25/2025 6:04 AM EDT This CRP test is appropriate for assessment of infection, systemic inflammation and/or tissue injury. To assess cardiovascular disease risk order high sensitivity CRP (CRPH). us Ramez Ma APRN, JESSE LAB BLOOD ORDERAB LES Final Result [facility] [address] [place] [address] * (ABNORMAL) Hepatic function panel (03/25/2025 3:36 AM EDT) Conjugated Bilirubin, Plasma 0.5(H) <=0.3 mg/dL 03/25/2025 4:22 AM EDT [facility] Alkaline Phosphatase, Plasma 74 40 - 115 U/L 03/25/2025 4:22 AM EDT [facility] Total Bilirubin, Plasma 1.0 0.2 - 1.1 mg/dL 03/25/2025 4:22 AM EDT [facility] Albumin, Plasma 2.7(L) 3.5 - 5.2 g/dL 03/25/2025 4:22 AM EDT [facility] Total Protein 5.1(L) 6.3 - 7.9 g/dL 03/25/2025 4:22 AM EDT [facility] ALT, Plasma 21 10 - 50 U/L 03/25/2025 4:22 AM EDT [facility] AST, Plasma 26 10 - 50 U/L 03/25/2025 4:22 AM EDT [facility] Blood Venous blood specimen / Unknown Venipuncture / Unknown 03/25/2025 3:36 AM EDT 03/25/2025 3:50 AM EDT us Naga Hidalgo MD LAB BLOOD ORDERABLES Final Re sult [facility] [address] [place] [address] * ECG Adult (03/25/2025 3:31 AM EDT) EKG DIAGNOSIS CLASS Abnormal MUSE ECG Ventricular Rate 62 BPM MUSE ECG Atrial Rate 62 BPM MUSE ECG GA Interval 182 ms MUSE ECG QRSD Interval 94 ms MUSE ECG QT Interval 450 ms MUSE ECG QTC Interval 456 ms MUSE ECG P Monarch 69 degrees MUSE ECG R Monarch 42 degrees MUSE ECG T Wave Monarch 138 degrees MUSE ECG Diagnosis Normal sinus rhythm MUSE ECG Diagnosis ST & T wave abnormality, consider anterolateral ischemia MUSE ECG Diagnosis Consider ACUTE CORONARY SYNDROME (ACS) MUSE ECG Diagnosis Abnormal ECG MUSE ECG Diagnosis MUSE ECG Diagnosis Confirmed by Ramone Marie ([id number]) on 03/25/2025 10:29:53 AM MUSE ECG 03/25/2025 3:31 AM EDT 03/25/2025 10:29 AM EDT us Naga Hidalgo MD ECG ORDERABLES Final Result MUSE ECG * Procalcitonin (03/25/2025 3:29 AM EDT) Pathologist [facility] Procalcitonin, Plasma 0.08 <0.09 ng/mL 03/25/2025 6:09 AM EDT [facility] Blood Venous blood specimen / Unknown Venipuncture / Unknown 03/25/2025 3:29 AM EDT 03/25/2025 3:50 AM EDT Narrative [facility] - 03/25/2025 6:09 AM [...] predict 28 day mortality risk. Please consult [email or web address] for more information. Test performed at [facility], [facility]. us Ramez N Anil LIFELINE REPRESENTATIVES, DNP LAB BLOOD ORDERAB LES Final Result Performing Organization Address [facility]/ZIP Co de Phone Number [facility] [address] [place] [address] * (ABNORMAL) N-Terminal Probnp (03/25/2025 3:29 AM EDT) N-Terminal, PROBNP, Plasma 1,495(H) 0 - 899 pg/mL 03/25/2025 6:09 AM EDT [facility] Blood Venous blood specimen / Unknown Venipuncture / Unknown 03/25/2025 3:29 AM EDT 03/25/2025 3:50 AM EDT us Ramez N Aylabeya LIFELINE REPRESENTATIVES, DNP LAB BLOOD ORDERAB LES Final Result Performing Organization Address [facility] [place] [address] * (ABNORMAL) PT-INR (03/25/2025 3:29 AM EDT) Prothrombin Time 20.1(H) 12.0 - 14.3 sec 03/25/2025 3:47 AM EDT [facility] INR 1.7(H) 0.9 - 1.1 03/25/2025 3:47 AM EDT [facility] Blood Venous blood specimen / Unknown Venipuncture / Unknown 03/25/2025 3:29 AM EDT 03/25/2025 3:32 AM EDT Narrative [facility] - 03/25/2025 3:47 AM EDT OPTIMAL INR RANGES FOR PATIENT ON ORAL ANTICOAGULANT THERAPY Prevention of venous thromboembolism INR 2.0 to 3.0 In patients with heart disease: Atrial fibrillation INR 2.0 to 3.0 Valvular heart disease INR 2.0 to 3.0 Tissue heart valves INR 2.0 to 3.0 Mechanical prosthetic valves INR 2.5 to 3.5 Prevention of recurrent TN INR 2.5 to 3.5 us Naga Hidalgo MD LAB BLOOD ORDERABLES Final Re sult Performing Organization Address [facility] Co de Phone Number [facility] [address] [place] [address] * (ABNORMAL) Reticulocytes (03/25/2025 3:29 AM EDT) Reticulocyte Absolute 214.2(H) 40.0 - 110.0 10*3/uL LAB HEMATOLOGY METHOD 03/25/2025 5:46 AM EDT [facility] Immature Reticulocyte Fraction 43.1(H) 3.1 - 17.6 % LAB HEMATOLOGY METHOD 03/25/2025 5:46 AM EDT [facility] Reticulocyte Hemoglobin 29.9 28 - 38 pg LAB HEMATOLOGY METHOD 03/25/2025 5:46 AM EDT [facility] Reticulocyte Count 8.50(H) 0.90 - 2.50 % LAB HEMATOLOGY METHOD 03/25/2025 5:46 AM EDT [facility] Blood Venous blood specimen / Unknown Venipuncture / Unknown 03/25/2025 3:29 AM EDT 03/25/2025 3:32 AM EDT us Ramez Ma APRN, DNP LAB BLOOD ORDERAB LES Final Result Performing Organization Address [facility] Co de Phone Number [facility] [address] [place] [address] * Lactate dehydrogenase (03/25/2025 3:29 AM EDT) LDH, Plasma 236 116 - 250 U/L 03/25/2025 6:09 AM EDT [facility] Blood Venous blood specimen / Unknown Venipuncture / Unknown 03/25/2025 3:29 AM EDT 03/25/2025 3:50 AM EDT us Ramezluz Ma APRN, DNP LAB BLOOD ORDERAB LES Final Result [facility] [address] [place] [address] * Hepatitis C antibody (02/21/2025 10:36 PM EDT) Hepatitis C Antibody Negative Negative 02/21/2025 11:38 PM EDT [facility] Blood Venous blood specimen / Unknown Venipuncture / Unknown 02/21/2025 10:36 PM EDT 02/21/2025 10:49 PM EDT Jolene Montes De Oca MD LAB BLOOD ORDERABLES Final Result Performing Organization Address City/[facility]/ZIP Co de Phone Number [facility] [address] [place] [address] from Last 3 Months or Most Recently Relevant to Health Maintenance Additional Health Concerns Active Problems Noted Date Diagnosed Date Autogenerated Problem 03/25/2025 Insurance [facility] MEDICARE [facility] MEDICAID Advance Directives * Full Code (Latest [...] 7:33 PM 02/21/2025 9:54 PM Care Teams Fork Lift Mechanic Relationship Specialty Start Date End Date Kiera Castro, ZANA [address] [place] [address] PCP - General 02/17/25
--- OUTSIDE RECORDS SUMMARY | 2025-06-21 10:09 | XMS_ITS | Encounter Summary ---
Author Organization Healthcare Address [address] [place] [address] Care Team Providers Care Plastic Parts Fabricator Name Role Phone Matthew Kiera Whitmore APRN Primary Care Provider [phone] Lucero Stafford LPN Unavailable Unavailable Encounter Details Date Type Department Care Team (Late st Contact Info) Description 02/22/2025 Lab Requisition [facility] [address] [place] [address] Sohail Alex MD [address] [place] [address] Encounter for general adult medical [...] time in the past 12 m [facility], were you homeless or living in a retirement (including now)? No 02/17/2025 Utilities Answer Date [...] Description 08/03/2025 12:40 PM EDT Office Visit [facility] [place] [address] [place] [address] Dimitrios [place] MD [address] [place] [phone] documented as of this encounter Procedures Procedure Name Priority Date/Time Associated Diagnosis Comments MULTI DRUG RESISTANCE TEST Routine 02/22/2025 11:00 AM EDT Encounter for general adult medical examination without abnormal findings documented in this encounter Results * Multi Drug Resistance Test (02/22/2025 11:00 AM EDT) Culture No growth at day 1 02/23/2025 9:05 AM EDT [facility] Swab (Nares and Leslie Rectal) 02/22/2025 11:00 AM EDT 02/22/2025 11:49 AM EDT us Sohail Alex MD LAB MICROBIOLOGY - GEN ERAL ORDERABLES Final Result [facility] [address] [place] [address] documented in this encounter Visit Diagnoses Diagnosis Encounter for general adult medical examination without abnormal findings documented in this encounter Additional Health Concerns Assessment Noted Time A Body Mass Index follow-up plan has been documented for the patient 03/02/2025 1:29 PM EDT documented as of this encounter Care Teams Plastic Parts Fabricator Relationship Specialty Start Date End Date Kiera Castro APRN [address] [place] [address] PCP - General 02/17/25 Lucero Stafford LPN VALUE-BASED [place] [address] TCM Nurse 04/01/25 05/01/25 documented as of this encounter
[2025-06-21 10:17] LABS: Hematocrit 37.1 % (42.0-52.0); Hemoglobin 11.1 g/dL (14.1-18.0); Immature Granulocytes % 0.2 %; Mean Corpuscular HGB Conc 29.9 g/dL (31.8-35.4); Mean Corpuscular Hemoglobin 25.1 pg (27.0-31.2); Mean Corpuscular Volume 83.9 fl (80-94); Nucleated Red Blood Cells % 0 %; Platelet Count 205 K/mm3 (142-424); Red Blood Count 4.42 M/mm3 (4.60-6.20); Red Cell Distribution Width-SD 75.2 fL; White Blood Count 10.6 K/mm3 (4.8-10.8)
[2025-06-21 10:51] LABS: Chloride 102 mmol/L (98-107)
[2025-06-21 10:52] LABS: Potassium 4.1 mmoL/L (3.5-5.1); Sodium 140 mmol/L (136-145)
[2025-06-21 10:55] LABS: Anion Gap 16.1 mEq/L (5-15); Blood Urea Nitrogen 20 mg/dl (9-20); Calcium 9.6 mg/dl (8.4-10.2); Carbon Dioxide 26 mmol/L (22.0-30.0); Creatinine,Serum 0.70 mg/dl (0.66-1.25); Estimated Glomerular Filt Rate 113 ml/min (>60); GFR (African American) 137 ML/MIN (>60); Glucose 99 mg/dl (74-100)
== END 2025-06-21 23:59 | disposition home or self-care (01) ==
LOC: LAB 10:00
PROVIDERS: PCP Nurse Practitioner Family; Visit Provider Physician Assistant
DX: I25.10 Atherosclerotic heart disease of native coronary artery without angina pectoris (principal); I10 Essential (primary) hypertension
CPT/HCPCS: 36415; 80048; 85025

== ENCOUNTER 2025-07-20 09:23 | Outpatient (CLI) | payer MEDICARE, OTHER, SELFPAY ==
--- OUTSIDE RECORDS SUMMARY | 2025-07-20 09:30 | XMS_ITS | Clinical Summary ---
Author Organization Healthcare Address [address] [place] [address] Care Team Providers Care Marble Rubber Name Role Phone Matthew Kiera Whitmore APRN Primary Care Provider [phone] Allergies No known active allergies Medications famotidine (Pepcid) 20 MG tablet Take 1 tablet by mouth 2 times a day. Active acetaminophen (Tylenol) 325 MG tablet Take 2 tablets by mouth every 6 hours as needed for pain, headaches or fever. Under [place] law, monthly prescriptions (30 days) can be refilled at 25 days and three-month prescriptions (90 days) at 80 days. Please contact the insurance company with questions if refills are denied. 100 tablet 03/02/20 25 Active apixaban (Eliquis) 5 MG tablet Take 1 tablet by mouth 2 (two) times a day. 60 tablet 3 03/02/20 25 Active atorvastatin (Lipitor) 80 MG tablet Take 1 tablet by mouth nightly. 30 tablet 3 03/02/20 25 Active mometasone-form oterol (Dulera 100) 100-5 MCG/ACT [...] continue 1 each 03/02/20 25 Active Tiotropium [place] Monohydrate (Spiriva Respimat) 2.5 MCG/ACT inhaler [...] and nightly. 1200 mL 03/31/20 25 Active aspirin 81 MG chewable tablet Chew 1 tablet daily. 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 2. 2 mm aneurysm or infundibulum at [...] HFmEF) 02/17/2025 Overview (02/22/2025): - Echo 02-15-25 [facility]: EF 45% - post-op EF 50% [...] Tobacco abuse disorder 02/16/2025 Overview (02/22/2025): - child welfare counselor on smoking cessation Incomplete right bundle [...] stenosis 02/16/2025 03/02/2025 Overview (02/21/2025): Echo 02-15-25 [facility]: Moderate AI. Moderate (peak gradient velocity 3.2 m/s. Mean AV gradient 22 mmHg. Max gradient 40 mmHg. PETE 1.4 cm sq. 02/21: s/p 4vCABG and bioprosthetic AVR. Aortic valve intact with no significant AI on post TAYLOR. NSTEMI (non-ST elevated myoc ardial infarction) 02/16/2025 03/02/2025 Overview (02/21/2025): S/p 4vCABG on 02/21 Encounters Date Type Department Care Team Description 05/04/2025 Telephone [facility] Cardiothoracic [address], [address] [place] [address] Lata Sahu MD from Last 3 Months Social History Tobacco [...] in a care home (including now)? No 04/06/2025 Utilities Answer Date Recorded In the past 12 months has e [employer], gas, oil, or water company threatened to [...] Description 08/03/2025 12:40 PM EDT Office Visit [facility] [place] [address] [facility] [place] [address] Dimitrios [place] MD [address] [place] [id number] Health Maintenance Due Date Last Done Comments [...] 2008 [facility]-Abdominal Aortic Aneurysm (AAA) Screening 2023 [id number] Vaccine (3 - 2024- season) 2025 04/26/2021, 03/29/2021 [facility]-Influenza Vaccine (#1) 2025 [facility]- [...] Moeller, RN Medical Devices Implanted Type Area Order Checker Device Identifier Shelf Expiration Date Model / Serial / Lot Valve Aortic Inspiris Resilia 29mm - [id number] - [id number] Implanted:Qty: 1 on 02/21/2025 by Lata Sahu MD at [id number] 09/22/2029 [id number] / [id number] / [id number] Description:We do not rinse Inspirus Valves. P[employer]get Pt[employer] [place] 4.8mm X 6mm - [id number] Implanted:02/21 by Lata Sahu MD at [facility] (Quantity not on file) [id number] / / Pledget Ptfe [place] 4.8mm X 6mm - [id number] Implanted:02/21 by Lata Sahu MD at [facility] (Quantity not on file) [id number] / / Procedures Procedure Name Priority Date/Time Associated Diagnosis Comments HEPATITIS C ANTIBODY W/REFLEX TO HCV QUANT PCR Routine 02/21/2025 10:36 PM EDT from Last 3 Months or Most Recently Relevant to Health Maintenance Results * Hepatitis C antibody (02/21/2025 10:36 PM EDT) Hepatitis C Antibody Negative Negative 02/21/2025 11:38 PM EDT [facility] Blood Venous blood specimen / Unknown Venipuncture / Unknown 02/21/2025 10:36 PM EDT 02/21/2025 10:49 PM EDT Jolene Montes De Oca MD LAB BLOOD ORDERABLES Final Result [facility] [address] [place] [address] from Last 3 Months or Most Recently Relevant to Health Maintenance Additional Health Concerns Active Problems Noted Date Diagnosed Date Autogenerated Problem 03/25/2025 Insurance [facility] MEDICARE [facility] MEDICAID Advance Directives * Full Code [...] 7:33 PM 02/21/2025 9:54 PM Care Teams Marble Rubber Relationship Specialty Start Date End Date Kiera Castro APRN [address] [place] [address] PCP - General 02/17/25
--- OUTSIDE RECORDS SUMMARY | 2025-07-20 09:30 | XMS_ITS | Encounter Summary ---
Author Organization Healthcare Address [address] [place] [address] Care Team Providers Care Healthcare Analyst Name Role Phone Matthew Kiera Whitmore APRN Primary Care Provider Lucero Stafford LPN Unavailable Unavailable Encounter Details Date Type Department Care Team (Late st Contact Info) Description 02/22/2025 Lab Requisition [facility] [address] [place] [address] Sohail Alex MD [address] [facility] [address] [address] [place] [address] Encounter for general adult medical [...] in the past 12 m [facility], were you homeless or living in a fpc (including now)? No 02/17/2025 Utilities Answer Date [...] Description 08/03/2025 12:40 PM EDT Office Visit [facility] [place] [address] [place] [address] Dimitrios [place] MD [address] [place] [phone] documented as of this encounter Procedures Procedure Name Priority Date/Time Associated Diagnosis Comments MULTI DRUG RESISTANCE TEST Routine 02/22/2025 11:00 AM EDT Encounter for general adult medical examination without abnormal findings documented in this encounter Results * Multi Drug Resistance Test (02/22/2025 11:00 AM EDT) Culture No growth at day 1 02/23/2025 9:05 AM EDT [facility] Swab (Nares and Leslie Rectal) 02/22/2025 11:00 AM EDT 02/22/2025 11:49 AM EDT us Sohail Alex MD LAB MICROBIOLOGY - GEN ERAL ORDERABLES Final Result [facility] [address] [place] [address] documented in this encounter Visit Diagnoses Diagnosis Encounter for general adult medical examination without abnormal findings documented in this encounter Additional Health Concerns Assessment Noted Time A Body Mass Index follow-up plan has been documented for the patient 03/02/2025 1:29 PM EDT documented as of this encounter Care Teams Healthcare Analyst Relationship Specialty Start Date End Date Kiera Castro APRN [address] [place] [address] PCP - General 02/17/25 Lucero Stafford LPN VALUE[employer] [address] TCM Nurse 04/01/25 05/01/25 documented as of this encounter
--- NOTE | 2025-07-20 09:33 | XR_ITS ---
FINAL REPORT CLINICAL HISTORY: left shoulder pain FINDINGS: Two views of the left shoulder were obtained. There is no fracture or dislocation. There is degenerative joint disease. Small sclerotic lesion is seen of the humeral head which is nonspecific, may be a bone island. Soft tissues are unremarkable. IMPRESSION: Nonspecific sclerotic lesion in the humeral head, may be bone island. Reviewed, Interpreted and Dictated by Monica Patel MD Transcribed by Mirella Bowens Authenticated and [facility]
== END 2025-07-20 23:59 | disposition home or self-care (01) ==
LOC: RAD 09:24
PROVIDERS: PCP Nurse Practitioner Family; Visit Provider Physician Assistant
DX: M89.9 Disorder of bone, unspecified (principal); M25.512 Pain in left shoulder
CPT/HCPCS: 73030

== ENCOUNTER 2025-08-10 08:43 | Outpatient (CLI) | payer MEDICARE, OTHER, SELFPAY ==
--- OUTSIDE RECORDS SUMMARY | 2025-08-10 08:47 | XMS_ITS | Encounter Summary ---
Author Organization Healthcare Address [address] [place] [address] Care Team Providers Care Manufacturer'S Representative Name Role Phone Kiera Castro APRN Primary Care Provider [phone] Reason for Visit * Reason Onset Date Comments HCN - Patient Message 08/02/2025 Encounter Details Date Type Department Care Team (Late st Contact Info) Description 08/02/2025 Telephone [facility] [place] [address] [place] [address] HCN - Patient Message Social History Tobacco Use Types Packs/Day Years [...] any time in the past 12 m [facility], were you homeless or living in a chcf (including now)? No 04/06/2025 Utilities Answer Date Recorded In the past 12 months has th e [employer], gas, oil, or water company threatened to shut off services in your home? 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 Follow-up communication and further actions as a result of this message need to be communicated with the patient directly, if the patient is not active onMyChart. If the patient is active on MyChart, they will receive notification of the communication/outcome via [employer]. documented in this encounter Plan of Treatment Upcoming Encounters Date Type Department Care Team (Late st Contact Info) Description 10/21/2025 10:00 AM EST Office Visit [facility] [place] [address] [facility] [place] [address] Vero Quinn MD [address] [place] [address] documented as of this encounter Goals Goal [...] documented as of this encounter Care Teams Manufacturer'S Representative Relationship Specialty Start Date End Date Kiera Castro APRN [address] [place] [address] PCP - General 02/17/25 documented as of this encounter
--- OUTSIDE RECORDS SUMMARY | 2025-08-10 08:47 | XMS_ITS | Encounter Summary ---
Author Organization Healthcare Address [address] [place] [address] Care Team Providers Care Communications Intern Name Role Phone Matthew Kiera Whitmore APRN Primary Care Provider [phone] Lucero Stafford LPN Unavailable Unavailable Encounter Details Date Type Department Care Team (Late st Contact Info) Description 02/22/2025 Lab Requisition [facility] [address] [place] [address] oShail Alex MD [address] [facility] [address] [place] [address] Encounter for general adult medical [...] any time in the past 12 m [facility], were you homeless or living in a long term (including now)? No 02/17/2025 Utilities Answer Date [...] Description 10/21/2025 10:00 AM EST Office [facility] [place] [address] [place] [address] Vero Quinn MD [address] [place] [phone] documented as of this encounter Procedures Procedure Name Priority Date/Time Associated Diagnosis Comments MULTI DRUG RESISTANCE TEST Routine 02/22/2025 11:00 AM EDT Encounter for general adult medical examination without abnormal findings documented in this encounter Results * Multi Drug Resistance Test (02/22/2025 11:00 AM EDT) Culture No growth at day 1 02/23/2025 9:05 AM EDT [facility] Swab (Nares and Leslie Rectal) 02/22/2025 11:00 AM EDT 02/22/2025 11:49 AM EDT us Sohail Alex MD LAB MICROBIOLOGY - GEN ERAL ORDERABLES Final Result [facility] [address] [place] [address] documented in this encounter Visit Diagnoses Diagnosis Encounter for general adult medical examination without abnormal findings documented in this encounter Additional Health Concerns Assessment Noted Time A Body Mass Index follow-up plan has been documented for the patient 03/02/2025 1:29 PM EDT documented as of this encounter Care Teams Communications Intern Relationship Specialty Start Date End Date Kiera Castro APRN [address] [place] [address] PCP - General 02/17/25 Lucero Stafford LPN VALUE-BASED [place] [address] TCM Nurse 04/01/25 05/01/25 documented as of this encounter
--- OUTSIDE RECORDS SUMMARY | 2025-08-10 08:47 | XMS_ITS | Clinical Summary ---
Author Organization [facility] Address [address] [place] [address] Care Team Providers Care Trade Facilitator Name Role Phone Matthew Kiera Whitmore APRN Primary Care Provider [phone] Allergies No known active allergies Medications famotidine [...] questions if refills are denied. 100 tablet 5 Active apixaban (Eliquis) 5 MG tablet Take 1 tablet by mouth 2 (two) times a day. 60 tablet 3 5 Active atorvastatin (Lipitor) 80 MG tablet Take 1 tablet by mouth nightly. 30 tablet 3 5 Active mometasone-form oterol (Dulera 100) 100-5 MCG/ACT inhaler Inhale 2 puffs 2 (two) times a day. Rinse mouth with water after use to reduce aftertaste and incidence of candidiasis. Do not swallow. 13 g 3 5 Active naloxone (Narcan) 4 mg/0.1 mL nasal spray 1. Give 1 spray in nostril for no/slow breathing or cannot wake after opioid use 2. Call 911 3. Repeat in other nostril if symptoms continue 1 each 5 Active Tiotropium [place] Monohydrate (Spiriva Respimat) 2.5 MCG/ACT inhaler Inhale 2 puffs daily. 4 g 3 Active docusate sodium (Colace) 100 MG capsule Take 1 capsule by mouth 2 times a day. Active metoprolol tartrate (Lopressor) 50 MG tablet Take 1.5 tablets by mouth 2 times a day. 90 tablet 2 5 026 Active amiodarone (Pacerone) 200 MG tablet Take 1 tablet by mouth daily. 5 Active sucralfate (Carafate) 1 GM/10ML suspension Take 10 mL by mouth 4 times a day before meals and nightly. 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 2. 2 mm aneurysm or infundibulum at [...] and dilaudid d/c-d in setting of lethargy Abnormal electrocardiogram (ECG) (EKG) Obstructive sleep apnea 02/21/2025 Overview (02/21/2025): - [...] LVEF 50%, no AI. -Monitor CT output Other nonrheumatic aortic valve disorders 2024 Anemia, unspecified 02/19/2025 Cardiomegaly 02/19/2025 Acute blood loss anemia 02/18/2025 Overview (02/24/2025): - likely in setting of post-op - CTM with daily labs Transfusion 02/24 Heart failure with mid-range ejection fraction ( HFmEF) 02/17/2025 Overview (02/22/2025): - Echo 02-15-25 [facility]: EF 45% - post-op EF 50% [...] Tobacco abuse disorder 02/16/2025 Overview (02/22/2025): - insurance counsel on smoking cessation Incomplete right bundle branch [...] Pepcid BID Situational depression 02/16/2025 Edentulous 02/16/2025 Bradycardia, unspecified 02/16/2025 Abrasion of left hand 01/27/2025 Overexertion from strenuous movement or load, initial encounter 01/27/2025 Dysphagia, unspecified 09/29/2024 Other nonspecific abnormal finding of lung field 06/04/2024 Pain in right foot 04/22/2024 Plantar fascial fibromatosis 04/22/2024 Unspecified abdominal pain 03/31/2024 Calculus of kidney and ureter 10/10/2020 Adult-onset obesity 07/31/2016 Loss of hair 07/31/2016 Metabolic syndrome X 07/31/2016 Resolved Problems Problem Noted Date Diagnosed Date [...] stenosis 02/16/2025 03/02/2025 Overview (02/21/2025): Echo 02-15-25 [facility]: Moderate AI. Moderate (peak gradient velocity 3.2 m/s. Mean AV gradient 22 mmHg. Max gradient 40 mmHg. PETE 1.4 cm sq. 02/21: s/p 4vCABG and bioprosthetic AVR. Aortic valve intact with no significant AI on post TAYLOR. NSTEMI (non-ST elevated myoc ardial infarction) 02/16/2025 03/02/2025 Overview (02/21/2025): S/p 4vCABG on 02/21 Encounters Date Type Department Care Team Description 08/02/2025 Telephone [facility] [address] [place] [address] HCN - Patient Message from Last 3 Months Social History Tobacco [...] Description 10/21/2025 10:00 AM EST Office Visit [facility] [address] [place] [address] Vero Quinn MD [address] [place] [address] Health Maintenance Due Date Last Done Comments [...] 2008 [facility]Y-Abdominal Aortic Aneurysm (AAA) Screening 2023 [id number] Vaccine ( season) 2025 04/26/2021, 03/29/2021 UKY-Influenza Vaccine (#1) [...] Moeller, RN Medical Devices Implanted Type Area Supervisor Brake Repair Device Identifier Shelf Expiration Date Model / Serial / Lot Valve Aortic Inspiris Resilia 29mm - [id number] - [id number] Implanted:Qty: 1 on 02/21/2025 by Lata Sahu MD at [facility]-[id number] 09/22/2029 [id number] / [id number] / [id number] Description:We do not rinse Inspirus Valves. Pledget Ptfe [place] 4.8mm X 6mm - [id number] Implanted:02/21 by Lata Sahu MD at [facility] (Quantity not on file) [employer]-[id number] / / Pledget Ptfe [place] 4.8mm X 6mm - [id number] Implanted:02/21 by Lata Sahu MD at [facility] (Quantity not on file) [id number] / / Procedures Procedure Name Priority Date/Time Associated Diagnosis Comments HEPATITIS C ANTIBODY W/REFLEX TO HCV QUANT PCR Routine 02/21/2025 10:36 PM EDT from Last 3 Months or Most Recently Relevant to Health Maintenance Results * Hepatitis C antibody (02/21/2025 10:36 PM EDT) Hepatitis C Antibody Negative Negative 02/21/2025 11:38 PM EDT [facility] Blood Venous blood specimen / Unknown Venipuncture / Unknown 02/21/2025 10:36 PM EDT 02/21/2025 10:49 PM EDT us Jolene Montes De Oca MD LAB BLOOD ORDERABLES Final Result [facility] [address] [place] [address] from Last 3 Months or Most Recently Relevant to Health Maintenance Additional Health Concerns Active Problems Noted Date Diagnosed Date Autogenerated Problem 03/25/2025 Insurance [facility] Advance Directives * Full Code (Latest [...] 7:33 PM 02/21/2025 9:54 PM Care Teams Trade Facilitator Relationship Specialty Start Date End Date Kiera Castro APRN [address] [place] [address] PCP - General 02/17/25
--- NOTE | 2025-08-10 09:00 | MR_ITS ---
FINAL REPORT CLINICAL HISTORY: chronic neck pain. hx cervical surgery 20years ago. left sided shoulder and arm pain. tingling in left arm. FINDINGS: Multi planar MR imaging was obtained of the cervical spine. There is abnormal decreased signal throughout the cervical discs. There is magnetic susceptibility artifact from anterior interbody fusion at C7-T1. There is mild reversal of the cervical lordosis. The vertebrae are of normal height. There is no malalignment. There is abnormal signal within the cervical cord at the C6-7 level consistent with localized myelomalacia on the left side of the cord. Finding is best seen on image 11 of series 2. C2-C3: There is no evidence of significant disc bulge or protrusion. There is no significant facet hypertrophy. C3-C4: Mild diffuse disc bulge with endplate hypertrophy and moderate to high-grade bilateral neuroforaminal narrowing. C4-C5: Mild diffuse disc bulge with endplate hypertrophy and moderate to high-grade bilateral neuroforaminal narrowing. C5-C6: Mild diffuse disc bulge with endplate hypertrophy and moderate to high-grade bilateral neuroforaminal narrowing. C6-C7: Broad-based right paracentral disc protrusion with moderate compromise of the right side of the spinal canal. High-grade right and moderate to high-grade left neuroforaminal narrowing. C7-T1: Mild endplate hypertrophy with mild bilateral neuroforaminal narrowing. IMPRESSION: Anterior and interbody fusion at C7-T1. 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 Diffuse disc bulges at C3-4, C4-5, and C5-6 with moderate to high-grade bilateral neuroforaminal narrowing. Broad-based right paracentral disc protrusion at C6-7 with high-grade right neuroforaminal narrowing. Reviewed, Interpreted and Dictated by Cristofer Angeles MD Transcribed by Mirella Bowens Authenticated and [facility]
--- NOTE | 2025-08-10 09:45 | MR_ITS ---
FINAL REPORT CLINICAL HISTORY: left shoulder pain with decreased ROM. weakness in arm COMPARISON: None FINDINGS: Multi planar MR imaging of the left shoulder was performed. Extensive heterogeneous abnormal signal in the distal supraspinatus tendon consistent with partial-thickness tear. There is only a trace amount of fluid in the subacromial/subdeltoid bursa. There are postoperative changes from prior distal supraspinatus tendon repair. Two orthopedic anchors are present. The anterior and posterior glenoid tricia appear intact. There is thickening and heterogeneous signal of the subscapularis tendon. The biceps tendon appears intact. Moderate hypertrophic changes of the acromioclavicular joint. IMPRESSION: High-grade partial full-thickness tear distal supraspinatus tendon with postsurgical change from prior repair. Moderate hypertrophic changes AC joint. Reviewed, Interpreted and Dictated by Cristofer Angeles MD Transcribed by Sharona Fleming Authenticated and [facility]
== END 2025-08-10 23:59 | disposition home or self-care (01) ==
LOC: RAD 08:43
PROVIDERS: PCP Nurse Practitioner Family; Visit Provider Nurse Practitioner Family
DX: M75.112 Incomplete rotator cuff tear or rupture of left shoulder, not specified as traumatic (principal); M19.012 Primary osteoarthritis, left shoulder; M43.23 Fusion of spine, cervicothoracic region; G95.89 Other specified diseases of spinal cord; M50.31 Other cervical disc degeneration, high cervical region; M50.321 Other cervical disc degeneration at C4-C5 level; M50.322 Other cervical disc degeneration at C5-C6 level; M50.223 Other cervical disc displacement at C6-C7 level; M48.02 Spinal stenosis, cervical region; Z98.890 Other specified postprocedural states
CPT/HCPCS: 72141; 73221

== ENCOUNTER 2025-08-19 07:42 | Outpatient (RCR) | payer MEDICARE, OTHER, SELFPAY ==
--- NOTE | 2025-08-19 08:45 | HMH.OTOPEV ---
OT Evaluation Rehab OT Outpatient Eval Start: 08/19/25 08:01 Freq: Status: Active Protocol: [facility] 08[facility]19/25 08:[facility] (Rec[facility] 08[facility]19/25 08:45 [id number] E-signed By Darcie Pearl, OT Outpatient Therapy Subjective History Subjective History Pt is a 65 year old male who reports to therapy for initial evaluation to left shoulder. Pt has been experiencing pain in left shoulder for 8+ years. He does not recall a specific injury causing pain to begin . 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 Pt has had RTC repairs on bilateral shoulders in the past, along with cervical surgery 20 years ago. He is also experiencing significant neck pain, numbness, and tingling referring to left shoulder and down left arm. He has had a MRI completed of cervical spine and L shoulder with the following findings: Cervical MRI: Anterior and interbody fusion at C7-T1. 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 Diffuse disc bulges at C3-4, C4-5, and C5-6 with moderate to high-grade bilateral neuroforaminal narrowing. Broad-based right paracentral disc protrusion at C6-7 with high-grade right neuroforaminal narrowing. L shoulder MRI: High-grade partial full-thickness tear distal supraspinatus tendon with postsurgical change from prior repair. Moderate hypertrophic changes AC joint. Pt presents with significant loss of AROM and strength at left shoulder. He received a cortisone injection from ortho ~2 days ago; at this time he hasn't had improvement with symptoms. He is also currently waiting for a referral for his neck. Pt will continue to be seen in order to address all deficits of L shoulder for improvement in his occupational performance. New diagnosis of No cancer in past 12 months? Chief Complaint Pain,Stiff,Weakness Symptom Type Ache,Throb,Sharp,Dull Symptoms Relieved By Nothing Symptoms Aggravated Physical Activity,Twisting,Lifting By Prior Functional None Limitations Current Functional Reaching,Lifting,Housework,Dressing,Sleeping,Recreation Limitations Activity Symptom Description Constant but Variable Level of pain today 7 (0-10) Pain scale - at its 5 best (0-10) Pain scale - at its 10 worst (0-10) Shoulder/Elbow Eval Shoulder Objective Measurements Shoulder ROM Left Shoulder Abduction 75 degrees Active Range of Motion (degrees) Shoulder Flexion 88 degrees Active Range of Motion (degrees) Query Text: Shoulder External 65 degrees Rotation Active Range of Motion ( degrees) Shoulder Internal 50 degrees Rotation Active Range of Motion ( degrees) Shoulder MMT Anterior Deltoid 3- Fair- Strength Grade Shoulder Abduction 3- Fair- Strength Grade Shoulder Flexion 3- Fair- Strength Grade Shoulder External 3- Fair- Rotation Strength Grade Shoulder Internal 3- Fair- Rotation Strength Grade Shoulder Strength Sitting Patient Testing Position Elbow Objective Measurements QuickDASH Activities Please rate your ability to do the following activities in the last week by selecting the number below the appropriate response. 1. Open a tight or No difficulty new jar. 2. 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 g., wash gonzales, floors). 3. Carry a shopping No difficulty bag or briefcase. 4. Wash your back. Moderate difficulty 5. Use a knife to Mild difficulty cut food. 6. Recreational Moderate difficulty activities in which you take some force or impact through your arm, shoulder, or hand (e.g., golf, hammering, tennis, etc.). 7. During the past Extremely week, to what extent has your arm, shoulder or hand problem interfered with your normal social activities with family, friends , neighbors or groups? 8. During the past Very limited week, were you limited in your work or other regular daily activites as a result of your arm, shoulder or hand problem? 9. Arm, shoulder or Extreme hand pain. 10. Tingling (pins Extreme and needles) in your arm, shoulder or hand. 11. During the past Severe difficulty week, how much difficulty have you had sleeping because of the pain in your arm, shoulder or hand? Quick DASH 36 OT Patient Goals OT Patient Goals OT Short Term 1. Pt will increase left shoulder flexion to 110 Patient Goals degrees in order to complete daily overhead tasks independently ~50% of the time. 2. Pt will increase L shoulder abduction to 110 degrees to complete upper body dressing independently ~ 50% of the time. 3. Pt will increase L shoulder ER/IR to 70 degrees (ER ) and 55 degrees (IR) in order to complete lower body dressing (putting on and taking off belt) independently ~50% of the time. 4. Pt will increase strength to 3+/5 throughout left shoulder in order to complete heavier household tasks ( laundry, mopping, vacuuming) independently ~50% of the time. 5. Pt will verbalize decreased pain levels at worst in L shoulder to a 5/10 in order to complete daily ADLs independently ~50% of the time. 6. Pt will demonstrate improved endurance by completing left shoulder exercises for ~20 minutes prior to rest break in order to increase his tolerance for daily work activities. 7. Pt will demonstrate independence with HEP of AAROM exercises to increase overall functional use of left shoulder in daily activities ~75% of the time. OT Prison Patient 1. Pt will increase L shoulder flexion to 125 degrees Goals in order to complete daily overhead tasks independently ~75% of the time. 2. Pt will increase L shoulder abduction to 120 degrees to complete upper body dressing independently ~ 75% of the time. 3. Pt will increase L shoulder ER/IR to 80 degrees (ER ) and 60 degrees (IR)in order to complete lower body dressing (putting on and taking off belt) independently ~75% of the time. 4. Pt will increase strength to 4-/5 throughout left shoulder in order to complete heavier household tasks ( laundry, mopping, vacuuming) independently ~75% of the time. 5. Pt will verbalize decreased pain levels at worst in L shoulder to a 3/10 in order to complete daily ADLs independently ~75% of the time. 6. Pt will demonstrate improved endurance by completing L shoulder exercises for ~30 minutes prior to rest break in order to increase his tolerance for daily work activities. 7. Pt will demonstrate independence with HEP of Rotator cuff strengthening exercises to increase overall functional use of L shoulder for daily activities ~90% of the time. OT Outpatient Assessment Impairments Problems/Impairments Palpation Tenderness,Impaired Range of Motion,Impaired Strength,Impaired Endurance,Impaired Lifting,Impaired Dressing,Impaired Shower/Bathing,Impaired Household Care,Impaired Recreational Activities,Impaired Work Activities,Subjective C/O Pain Prognosis Rehab Potential Good Clinical Impression Consistent with Yes Diagnosis Outpatient Therapy Plan of Care Treatment Plan May Include Therapeutic Exercise Yes Including Home Exercise Program Manual Therapy Yes Techniques Neuromuscular Re- Yes education Therapeutic Yes Activities to Return to Previous Functional/Work Level ADL/Self Care Yes Education Thermal Modalities Yes Electrical Yes Stimulation Ultrasound/ Yes Phonophoresis Iontophoresis Yes Orthotics/Bracing/ Yes Splinting Massage Yes Eval/Re-Eval Yes Frequency Times per week 2 Duration Number of Weeks 6 Addendums This patient is a No candidate for social or vocational rehab ? Patient/Guardian Yes verbally acknowledges understanding of treatment program and consents to further treatment? Patient/Guardian Yes verbally acknowledges understanding of diagnosis, prognosis and goals for treatment? Eval Complexity OT Charge 04365 - Moderate Complexity PHYSICIAN CERTIFICATION: I certify the specified therapy services for Shelly Nelson JR are required, authorized, and reviewed every 30 days.
== END 2025-08-19 23:59 | disposition home or self-care (01) ==
LOC: OT 07:42
PROVIDERS: Visit Provider Physician Assistant Surgical
DX: M25.512 Pain in left shoulder (principal)
CPT/HCPCS: 97166

== ENCOUNTER 2025-09-20 14:16 | Outpatient (CLI) | payer MEDICARE, OTHER, SELFPAY ==
--- OUTSIDE RECORDS SUMMARY | 2025-09-20 14:17 | XMS_ITS | Clinical Summary ---
Author Organization [facility] Address [address] [place] [address] Care Team Providers Care Reciprocating Drill Operator Name Role Phone Matthew Kiera Whitmore APRN Primary Care Provider [phone] Allergies No known active allergies Medications famotidine (Pepcid) 20 MG tablet Take 1 tablet by mouth 2 times a day. Active acetaminophen (Tylenol) 325 MG tablet Take 2 tablets by mouth every 6 hours as needed for pain, headaches or fever. Under [place] law, monthly prescriptions (30 days) can be [...] symptoms continue 1 each 5 Active Tiotropium [place] Monohydrate (Spiriva Respimat) 2.5 MCG/ACT inhaler Inhale [...] day before meals and nightly. 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 2. 2 mm aneurysm or infundibulum at [...] Sahu on 02/21 - SBP < 120 Abnormal electrocardiogram (ECG) (EKG) Obstructive sleep apnea [...] HFmEF) 02/17/2025 Overview (02/22/2025): - Echo 02-15-25 [facility]: EF 45% - post-op EF 50% [...] Tobacco abuse disorder 02/16/2025 Overview (02/22/2025): - dormitory counselor on smoking cessation Incomplete right bundle [...] 03/02/2025 Overview (02/24/2025): Extubated 02/22 to NC Post-op pain 02/22/2025 08/29/2025 Overview (02/23/2025): - MMPC - oxy and dilaudid d/c-d in setting of lethargy Electrolyte abnormality 02/22/202502/10 Overview (02/22/2025): - monitor and replace prn Cardiac volume overload 02/22/202502/10 Overview (02/24/2025): - evaluate daily need for diuresis On mechanically assisted ventilation 02/21/2025 02/22/2025 Overview (02/21/2025): Intubated for procedure, arrived to ICU post-procedure intubated and sedated Wean as tolerated Fast track extubation Sinus bradycardia 02/18/2025 02/27/2025 Aortic stenosis 02/16/2025 03/02/2025 Overview (02/21/2025): Echo 02-15-25 [facility]: Moderate AI. Moderate (peak gradient velocity 3.2 m/s. Mean AV gradient 22 mmHg. Max gradient 40 mmHg. PETE 1.4 cm sq. 02/21: s/p 4vCABG and bioprosthetic AVR. Aortic valve intact with no significant AI on post TAYLOR. NSTEMI (non-ST elevated myoc ardial infarction) 02/16/2025 03/02/2025 Overview (02/21/2025): S/p 4vCABG on 02/21 Encounters Date Type Department Care Team Description 08/02/2025 Telephone [facility] [place] [address] [place] [id number] HCN - Patient Message from Last 3 [...] time in the past 12 m [facility], were you homeless or living in a [facility] (including now)? No 04/06/2025 Utilities Answer Date [...] Encounters Date Type Department Care Team (Late Contact Info) Description 10/21/2025 10:00 AM EST Office Visit [facility] [address] [place] [address] Vero Quinn MD [address] [place] [address] Health Maintenance Due Date Last [...] 2008 [facility]Y-Abdominal Aortic Aneurysm (AAA) Screening 2023 [id number] Vaccine ( season) 2025 04/26/2021, 03/29/2021 UKY-Influenza [...] Moeller, RN Medical Devices Implanted Type Area Seam Checker Device Identifier Shelf Expiration Date Model / Serial / Lot Valve Aortic Inspiris Resilia 29mm - [id number] - [id number] Implanted:Qty: 1 on 02/21/2025 by Lata Sahu MD at [facility]-[id number] 09/22/2029 [id number] / [id number] / [id number] Description:We do not rinse Inspirus Valves. Pledget Ptfe [place] 4.8mm X 6mm - [id number] Implanted:02/21 by Lata Sahu MD at [facility] (Quantity not on file) [employer]-[id number] / / Pledget Ptfe [place] 4.8mm X 6mm - [id number] Implanted:02/21 by Lata Sahu MD at [facility] (Quantity not on file) [employer]-[id number] / / Procedures Procedure Name Priority Date/Time [...] Oca MD LAB BLOOD ORDERABLES Final Result [facility] [address] [place] [address] from Last 3 Months or Most Recently Relevant to Health Maintenance Additional Health Concerns Active Problems Noted Date Diagnosed Date Autogenerated Problem 03/25/2025 Insurance [facility] MEDICARE [facility] MEDICAID Advance Directives * Full Code [...] 7:33 PM 02/21/2025 9:54 PM Care Teams Reciprocating Drill Operator Relationship Specialty Start Date End Date Kiera Castro APRN [address] [facility] [place] [address] PCP - General 02/17/25
--- OUTSIDE RECORDS SUMMARY | 2025-09-20 14:17 | XMS_ITS | Encounter Summary ---
Author Organization Healthcare Address [address] [place] [address] Care Team Providers Care Supervisor Shearing Name Role Phone Matthew Kiera Whitmore APRN Primary Care Provider [phone] Lucero Stafford LPN Unavailable Unavailable Encounter Details Date Type Department Care Team (Late st Contact Info) Description 02/22/2025 Lab Requisition [facility] [address] [place] [address] Sohail Alex MD [address] [facility] [address] [place] [address] Encounter for general adult medical [...] any time in the past 12 m [facility], were you homeless or living in [...] Description 10/21/2025 10:00 AM EST Office Visit [facility] [place] [address] [place] [address] Vero Quinn MD [address] [place] [id number] documented as of this encounter Procedures Procedure Name Priority Date/Time Associated Diagnosis Comments MULTI DRUG RESISTANCE TEST Routine 02/22/2025 11:00 AM EDT Encounter for general adult medical examination without abnormal findings documented in this encounter Results * Multi Drug Resistance Test (02/22/2025 11:00 AM EDT) Culture No growth at day 1 02/23/2025 9:05 AM EDT [facility] Swab (Nares and Leslie Rectal) 02/22/2025 11:00 AM EDT 02/22/2025 11:49 AM EDT us Sohail Alex MD LAB MICROBIOLOGY - GEN ERAL ORDERABLES Final Result [facility] [address] [place] [address] documented in this encounter Visit Diagnoses Diagnosis Encounter for general adult medical examination without abnormal findings documented in this encounter Additional Health Concerns Assessment Noted Time A Body Mass Index follow-up plan has been documented for the patient 03/02/2025 1:29 PM EDT documented as of this encounter Care Teams Supervisor Shearing Relationship Specialty Start Date End Date Kiera Castro APRN [address] [place] [address] PCP - General 02/17/25 Lucero Stafford LPN [employer] [place] [address] TCM Nurse 04/01/25 05/01/25 documented as of this encounter
--- OUTSIDE RECORDS SUMMARY | 2025-09-20 14:17 | XMS_ITS | Encounter Summary ---
Author Organization Healthcare Address [address] [place] [address] Care Team Providers Care Personnel Coordinator Name Role Phone Kiera Castro APRN Primary Care Provider [phone] Reason for Visit * Reason Onset Date Comments HCN - Patient Message 08/02/2025 Encounter Details Date Type Department Care Team (Late st Contact Info) Description 08/02/2025 Telephone [facility] [place] [facility] [address] [place] [address] HCN - Patient Message Social History Tobacco [...] any time in the past 12 m [facility], were you homeless or living in a nursing home (including now)? 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 Follow-up communication and further actions as a result of this message need to be communicated with the patient directly, if the patient is not active onMyChart. If the patient is active on MyChart, they will receive notification of the communication/outcome via ePantryt. documented in this encounter Plan of Treatment Upcoming Encounters Date Type Department Care Team (Late st Contact Info) Description 10/21/2025 10:00 AM EST Office Visit [facility] [place] [facility] [address] [facility] [place] [address] Vero Quinn MD [address] [place] [address] documented as of this encounter Goals Goal [...] documented as of this encounter Care Teams Personnel Coordinator Relationship Specialty Start Date End Date Kiera Castro APRN [address] [place] [address] PCP - General 02/17/25 documented as of this encounter
[2025-09-21 08:13] LABS: PSA, Free 0.15 ng/mL
== END 2025-09-20 23:59 | disposition home or self-care (01) ==
LOC: LAB 14:16
PROVIDERS: PCP Nurse Practitioner Family; Visit Provider Urology
DX: N40.2 Nodular prostate without lower urinary tract symptoms (principal); N40.0 Benign prostatic hyperplasia without lower urinary tract symptoms
CPT/HCPCS: 36415; 84153; 84154

== ENCOUNTER 2025-10-28 07:03 | Outpatient (CLI) | payer MEDICARE, OTHER, SELFPAY ==
--- OUTSIDE RECORDS SUMMARY | 2025-10-28 07:07 | XMS_ITS | Encounter Summary ---
Author Organization Healthcare Address [address] [place] [address] Care Team Providers Care Chip Drier Name Role Phone Kiera Castro APRN Primary Care Provider [phone] Reason for Visit * Reason Onset Date Comments HCN - Patient Message 08/02/2025 Encounter Details Date Type Department Care Team (Late st Contact Info) Description 08/02/2025 Telephone [facility] [facility] 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 Follow-up communication and further actions as a result of this message need to be communicated with the patient directly, if the patient is not active onMyChart. If the patient is active on MyChart, they will receive notification of the communication/outcome via Splasht. documented in this encounter Plan of Treatment Upcoming Encounters Date Type Department Care Team (Late st Contact Info) Description 11/30/2025 2:30 PM EST Appointment [facility] [address] [place] [address] 01/31/2026 10:00 AM EDT Office Visit [facility] [place] [facility] [address] [place] [address] Vero Quinn MD [address] [place] [address] documented as of this encounter Goals Goal [...] documented as of this encounter Care Teams Chip Drier Relationship Specialty Start Date End Date Kiera Castro APRN [address] [place] [address] PCP - General 02/17/25 documented as of this encounter
--- OUTSIDE RECORDS SUMMARY | 2025-10-28 07:07 | XMS_ITS | Data Portability ---
Author Organization [facility] S[facility] CLOSED Address [address] [facility] [address] [place] [address] Assessment Encounter Date Assessment Date Assessment LastModified by Organization Details LastModified Time 09/23/2025 09/23/2025 Imaging: cervical MRI. [facility]. 08/10/25. Images reviewed by Dr. Mejía and myself. 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 Anterior and interbody fusion at C7-T1. Multiple levels of foraminal stenosis at C3-4, C5-6, C6-7. Disc retained. Patient was seen by Dr. Mejía and myself. Assessment: Mr Nelson is a 65-year-old male who was referred here for worsening left neck and left arm pain. He had a previous cervical surgery performed around 20 years ago in [place], patient is unsure what exactly he had done but it sounds like a C6-7 ACDF and possible posterior decompression. Dr. Mejía discussed MRI findings with the patient. Due to cord compression at C6-7, he is a candidate for surgery as opposed to conservative measures. Dr. Mejía recommends a C6-7 posterior cervical instrumented fusion and laminectomy with possible left sided foraminotomy if necessary. Dr. Mejía discussed risks and benefits of surgery as well as recovery. Dr. Mejía also spoke with patient about recommending smoking cessation. Patient lives by himself, however he has a brother who would be assisting him in his recovery period. Dr. Mejía would like to obtain a EMG of the left upper extremity to evaluate for any radiculopathy. He would also like to obtain cervical AP lateral and flexion and extension x-rays today to evaluate for instability and also to assess his previous hardware. He would also like to obtain a cervical CT without contrast to measure for lateral masses. Patient would like these done if possible on the same day as pre-op anesthesia appointment. Patient is agreeable to this plan. He was introduced to Zhanna today for surgery scheduling. Plan: Cervical AP/LAT and flexion/extensi on x-rays today CT cervical without contrast EMG/NCS left upper extremity C6-7 posterior cervical instrumented fusion and laminectomy with possible left sided foraminotomy if necessary khilen Not available 09/23/2025 15:38:45 Plan of Treatment Reminders Order Date Submit Date Provider Last Modified By Organization Details Last Modified Time Details Appointments DR [facility] 2024 02:30P M Neurology _tech Not available Not available Not available [facility] 2025 08:30A M JANUARY MEJÍA MD Not available Not available Not available STAPLE REMOVAL 2025 01:00P M Neurosurg ery_nurse Not available Not available Not available POST-OP o 2025 02:45P M JANUARY MEJÍA MD Not available Not available Not available Lab None recorded. Referral None recorded. Procedures None recorded. Surgeries None recorded. Imaging None recorded. Medication Orders None recorded. Patient TargetsNo targets recorded. Patient InstructionsNo instructions recorded. Reason for Referral None Reported. Results Created Date Observation Date Name Description Value Unit Range Abnormal Flag Note LastModifiedBy Organization Detail LastModifiedTime 09/07/20 25 08/10/2025 MRI, cervi zane spine , w/o contr ast No observ ation record ed. [email or web address] Not Available 2024 11:37:36 09/23/20 25 09/23/2025 XR, cervi zane spine , 4 or [facility] [address] [place] [address] Priscillamoustapha ayon Name: SHELLY ayon : 958 Ovi ayon 0 Orderi ng Provid er: JANUARY MEJÍA EXAM DATE: 2024 EXAM: XR CERVIC AL SPINE AP/LAT /FLEX/ EXT CLINIC AL INFORM ATION: IMAGES PROVID ED: Latera l views of the cervic al spine in flexio n and extens ion. COMPAR DINORA: None. FINDIN GS: FINDIN GS: Verteb ral body height s are normal . Multip le disc spaces are narrow ed. The C7-T1 anteri or fusion . No abnorm ality of alignm ent is seen. No instab ility is seen on flexio n or extens ion. No radiog raphic eviden ce of injury is noted. IMPRES AUTUMN: Modera te DDD with previo us C7-T1 fusion , uncomp licate d. No instab ility. Interp reted By: Murtaza Christianson MD Electr onical ly Signed By: Murtaza Christianson MD on 2024 2:24 PM INTERFACE [facility] [address] [place], [address], 09/23/2025 14:29:33 Result Notes Documentation Provider Name and Address Organization Details Recorded Time Xr, Cervical Spine, 4 Or 5 View : [facility] [address] [place], [place] [id number] Patient Name: SHELLY NELSON Patient : 1960 Patient Ordering Provider: JANUARY MEJÍA EXAM DATE: 09/23/2025 EXAM: XR CERVICAL SPINE AP/LAT/FLEX/EXT CLINICAL INFORMATION: IMAGES PROVIDED: Lateral views of the cervical spine in flexion and extension. COMPARISON: None. FINDINGS: FINDINGS: Vertebral body heights are normal. Multiple disc spaces are narrowed. The C7-T1 anterior fusion. No abnormality of alignment is seen. No instability is seen on flexion or extension. No radiographic evidence of injury is noted. IMPRESSION: Moderate DDD with previous C7-T1 fusion, uncomplicated. No instability. Interpreted By: Murtaza Christianson MD Not Available [facility] 09/23/2025 14:29:33 Medical Equipment None Reported. Vitals None Recorded Social History None recorded. Functional Status None recorded. Mental Status None recorded. Family History Nothing Reported. 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 No medical history recorded. Past Encounters Encounter ID Performer Location Encounter Start Date Encounter Closed Date Diagnosis/Indication Diagnosis SNOMED-CT Code Diagnosis ICD10 Code Diagnosis IMO Codes Diagnosis Note [id number] SAM SHEN PA-C NEUROSUR[facility] [address] [place] [address] 09/23/2025 12:32:48 09/24/2025 04:06:03 Spinal stenosis in cervical region 81916841 M48.02 [id number] Health Concerns Section Related Observation LastModified by Organization Detai ls LastModified Time None Recorded Concern Status LastModified by Organization Details LastModified Time None Recorded Advance Directives Directive None Recorded Payers Insurance Date Sequence Insurance Name Policy Number Policy Cowart Covered Member ID Cowart Member ID Guarantor Name 09/23/2025 2 [facility] (MEDICAID REPLACEMENT - HMO) LINACD Shelly Lindcyrilclay [id number] Kyleveronica Nelson 09/20/2025 1 [facility] (MEDICARE REPLACEMENT/AD VANTAGE - HMO) LINADSNP Shelly Nelson [id number] Shelly Nelson Notes Date Note Type Note Provider Name and Address Organization Details Recorded Time 09/23/2025 text/html Mr Nelson is a 65-year-old male who was referred here for worsening neck and left arm pain. He had a previous cervical surgery performed around 20 years ago in [place], patient is unsure what exactly he had done but it sounds like a C6-7 ACDF and possible posterior decompression. He has continued to have pain since then, however, he feels it has been worsening over the past couple months. He reports pain on the left side of his neck into his shoulder, as well as pain and tingling down the anterior aspect of his left arm intermittently. He also reports numbness in his 4th and 5th digits. The pain is worse when lying down and extending his head back. He has done a few rounds of physical therapy without improvement. He has had injections into his left shoulder for a rotator cuff injury but not any in his neck. He denies any weakness, issues with dexterity or instability. SAM SHEN PA-C [address] [place], [address], [facility] 09/23/2025 15:38:56
--- OUTSIDE RECORDS SUMMARY | 2025-10-28 07:07 | XMS_ITS | Clinical Summary ---
Author Organization [employer] ([place], [place], [place], [place], [place]) Address [address] [place] [address] Care Team Providers Care Recreational Therapy Technician Name Role Phone Unavailable Primary Care Provider Unavailabl e Allergies No known active allergies Medications amiodarone (PACERONE) 200 MG tablet Take 1 tablet (200 mg total) by mouth daily. 03/31/2025 Active apixaban (ELIQUIS) 5 mg tab tablet Take 1 tablet (5 mg total) by mouth 2 (two) times daily. 03/02/2025 Active atorvastatin (LIPITOR) 80 MG tablet Take 1 tablet (80 mg total) by mouth nightly. 03/02/2025 Active docusate sodium (COLACE) 100 MG capsule Take 1 capsule (100 mg total) by mouth 2 (two) times daily. Active metoprolol tartrate (LOPRESSOR) 50 MG tablet Take 1.5 tablets (75 mg total) by mouth 2 (two) times daily. 03/17/2025 Active Active Problems Problem Noted Date Diagnosed Date Spinal stenosis in cervical region 10/26/2025 Paroxysmal atrial fibrillation 10/26/2025 Presence of prosthetic heart valve 10/26/2025 History of gastric ulcer 10/26/2025 History of GI bleed 10/26/2025 Iron deficiency anemia 03/17/2025 S/P AVR 02/22/2025 Overview (10/26/2025): S/p bAVR (29 mm Inspiris) w/ Dr. Sahu on 02/21 - SBP < 120 S/P CABG x 4 02/21/2025 Overview (10/26/2025): 02/21: S/p 4v CABG and bAVR with Dr. Sahu -Bypass vessels include RODRIGUEZ to LAD, reverse saphenous vein graft to distal RCA, and reverse saphenous vein graft sequential to ramus intermedius artery and 2 obtuse marginal artery. Aortic valve replacement using a 29 mm Inspiris aortic bioprosthesis. -Echo: Post TAYLOR 02/21: LVEF 50%, no AI. -Monitor CT output Obstructive sleep apnea 02/21/2025 Overview (10/26/2025): - CPAP/BIPAP after extubation if needed for desaturations Cardiomegaly 02/19/2025 Heart failure with mid-range ejection fraction ( HFmEF) 02/17/2025 Overview (10/26/2025): - Echo 02-15-25 [facility]: EF 45% - post-op EF 50% HTN (hypertension) 02/16/2025 Overview (10/26/2025): - Resume home medications as appropriate - required nitroglycerin gtt shortly post-op for SBP < 120 - Metop 12.5 TID GERD (gastroesophageal reflux disease) Overview (10/26/2025): - Pepcid BID COPD (chronic obstructive pulmonary disease) 06/2025 Overview (10/26/2025): - on atrovent/ pep therapy Edentulous 02/16/2025 HLD (hyperlipidemia) 02/16/2025 Overview (10/26/2025): - Atorvastatin 80 mg nightly BPH (benign prostatic hyperplasia) 02/16/2025 Overview (10/26/2025): - was on flomax at home, but stopped taking s/t uncontrolled bladder CAD, multiple vessel 02/16/2025 Overview (10/26/2025): S/p 4vCABG and bAVR on 02/21 - ASA, statin, BB as appropriate Dysphagia, unspecified 09/29/2024 Metabolic syndrome X 07/31/2016 Social History Tobacco Use Types Packs/Day Years Used Date Smoking Tobacco: Every Day Cigarettes Smokeless Tobacco: Never Tobacco Cessation:Ready to Q uit: Not Asked; Counseling Given: Not Answered Alcohol Use Standard Drinks/Week Comments Not Currently 0 (1 standard drink = 0.6 oz pur e alcohol) Sex and Gender Information Value Date Recorded Sex Assigned at Not on file Legal Sex Male 12:39 PM CDT Gender Identity Not on file Sexual Orientation Not on file Plan of Treatment Upcoming Encounters Date Type Department Care Team (Latest Contact Info) Description 11/02/2025 10:00 AM EST Hospital Encounter [facility] Preadmission Testing [address] [place] [address] 11/12/2025 8:30 AM EST Hospital Encounter [facility] Operating Room [address] [place] [address] Gabo Ramirez Jr., MD [address] [place] [address] 11/12/2025 8:30 AM EST - 11/12/2025 12:28 PM EST Surgery [facility] Operating Room [address] [place] [address] Gabo Ramirez Jr., MD [address] [place] [address] (C6-C7 POSTERIOR CERVICAL INSTRUMENTED FUSION AND LAMINECTOMY, POSSIBLE LEFT SIDED FORAMINOTOMIES IF NECESSARY USING GE) Scheduled Procedures Name Priority Associated Diagnoses Date/Ti me LAMINECTOMY, SPINE, CERVICAL, POSTERIOR APPROACH, WITH FUSION, PRONE POSITION Spinal stenosis in cervical region 11/12/2025 8:30 AM EST Health Maintenance Due Date Last Done Comments CT Colonography 1960 Colonoscopy 1960 Colorectal Cancer Screening 1960 FOBT/FIT 1960 Fit-DNA (Cologuard) 1960 Sigmoidoscopy 1960 Depression Screening (12+) 1970 Tobacco Cessation Counseling and Screening (12+) 08/18 Hepatitis C Screening 1976 DTAP/TDAP/TD VACCINES (1 - Tdap) 1977 Pneumococcal 50+ years (1 of 2 - PCV) 1977 Shingles Vaccine (Zoster) (1 of 2) 2008 Respiratory Syncytial Virus (RSV) Adult or (1 - Risk 60-74 years 1-dose series) 2018 Abdominal Aortic Aneurysm (AAA) Screen 2023 Falls Risk Screening 11/11/2024 Medicare IPPE (Welcome to Medicare) [id number] 11/11/2024 COVID-19 VACCINE ( - season) 2025 Influenza Vaccine (#1) 2025 Goals Goal Patient Goal Type Associated Problems Recent Progress Patient-Stated? Author Autogenerat ed Goal Care Plan Autogenerated Problem No Nadja Washington Additional Health Concerns Active Problems Noted Date Diagnosed Date Autogenerated Problem 09/24/2025 Insurance [facility] MCR ADV DUAL COMPLETE
--- OUTSIDE RECORDS SUMMARY | 2025-10-28 07:07 | XMS_ITS | Encounter Summary ---
Author Organization Healthcare Address [address] [place] [address] Care Team Providers Care Eye Care Professional Name Role Phone Matthew Kiera Whitmore APRN Primary Care Provider [phone] Lucero Stafford LPN Unavailable Unavailable Encounter Details Date Type Department Care Team (Late st Contact Info) Description 02/22/2025 Lab Requisition [facility] [address] [place] [address] Sohail Alex MD [address] [facility] [address] [place] [address] Encounter for general adult medical [...] any time in the past 12 m [facility], were you homeless or living in a [facility] (including now)? No 02/17/2025 Utilities Answer Date [...] as of this encounter Functional Status * Question Answer Date of Assessment Author Precautions Environmental surveillance 02/25/2025 8:[address] Duckworth RN * Calculated C-SSRS Risk Score (Lifetime/Recent) Answer Date of Assessment Author No Risk Indicated 02/25/2025 8:[address] Duckworth, RN * Question Answer Date of Assessment Author 1. Wish to be (Past 1 Month) No 025 8:[address] Duckworth, RN 2. Non-Specific Active Suici prabhakar Thoughts (Past 1 Month) No 02/25/2025 8:[address] Duckworth, RN 6. Suicidal Behavior (Lifetime) No 8:[address] Duckworth RN documented as of this encounter Mental Status * Question Answer Entry Date Author Precautions Environmental surveillance 02/25/2025 8:[address] Duckworth RN * Question Answer Entry Date Author Backup Resp Rate (Set) 15 02/22/2025 3:38 AM EDT Daisy Olvera documented in this encounter Plan of Treatment Upcoming Encounters Date Type Department Care Team (Late st Contact Info) Description 11/30/2025 2:30 PM EST Appointment [facility] [address] [place] [address] 01/31/2026 10:00 AM EDT Office Visit [facility] [place] [address] [facility] [place] [address] Vero Quinn MD [address] [place] [address] documented as of this encounter Procedures Procedure Name Priority Date/Time Associated Diagnosis Comments MULTI DRUG RESISTANCE TEST Routine 02/22/2025 11:00 AM EDT Encounter for general adult medical examination without abnormal findings documented in this encounter Results * Multi Drug Resistance Test (02/22/2025 11:00 AM EDT) Culture No growth at day 1 02/23/2025 9:05 AM EDT [facility] Swab (Nares and Leslie Rectal) 02/22/2025 11:00 AM EDT 02/22/2025 11:49 AM EDT us Sohail Alex MD LAB MICROBIOLOGY - GEN ERAL ORDERABLES Final Result [facility] [address] [place] [address] documented in this encounter Visit Diagnoses Diagnosis Encounter for general adult medical examination without abnormal findings documented in this encounter Additional Health Concerns Assessment Noted Time A Body Mass Index follow-up plan has been documented for the patient 03/02/2025 1:29 PM EDT documented as of this encounter Care Teams Eye Care Professional Relationship Specialty Start Date End Date Kiera Castro APRN [address] [id number] PCP - General 02/17/25 Lucero Stafford, [employer] [employer] [place] [address] None TCM Nurse 04/01/25 05/01/25 documented as of this encounter
--- OUTSIDE RECORDS SUMMARY | 2025-10-28 07:07 | XMS_ITS | Referral Summary ---
Author Organization [facility] ([place], [place], [place], [place], [place]) Address [address] [place] [address] Care Team Providers Care Healthcare Advisory Services Manager Name Role Phone Unavailable Primary Care Provider [...] HFmEF) 02/17/2025 Overview (10/26/2025): - Echo 02-15-25 [facility]: EF 45% - post-op EF 50% HTN [...] Description 11/02/2025 10:00 AM EST Hospital Encounter [facility] Preadmission Testing [address] [place] [address] 11/12/2025 8:30 AM EST Hospital Encounter [facility] Operating Room [address] [place] [address] Gabo Ramirez Jr., MD [address] [place] [address] 11/12/2025 8:30 AM EST - 11/12/2025 12:28 PM EST Surgery [facility] Operating Room [address] [place] [address] Gabo Ramirez Jr., MD [address] [place] [address] (C6-C7 POSTERIOR CERVICAL INSTRUMENTED FUSION AND LAMINECTOMY, POSSIBLE LEFT SIDED FORAMINOTOMIES IF NECESSARY USING GE) Scheduled Procedures Name Priority Associated Diagnoses Date/Ti me LAMINECTOMY, SPINE, CERVICAL, POSTERIOR APPROACH, WITH FUSION, PRONE POSITION Spinal stenosis in cervical region 11/12/2025 8:30 AM EST Goals Goal Patient Goal Type Associated Problems Recent Progress Patient-Stated? Author Autogenerat ed Goal Care Plan Autogenerated Problem No Nadja Washington Additional Health Concerns Active Problems Noted Date Diagnosed Date Autogenerated Problem 09/24/2025 Insurance [facility] MCR ADV DUAL COMPLETE
--- OUTSIDE RECORDS SUMMARY | 2025-10-28 07:07 | XMS_ITS | Encounter Summary ---
Author Organization Healthcare Address [address] [place] [address] Care Team Providers Care Rolling Up Machine Operator Name Role Phone Kiera Castro APRN Primary Care Provider [phone] Reason for Visit * Reason Onset Date Comments HCN Clinical Concern/Question 10/18/2025 Encounter Details Date Type Department Care Team (Late st Contact Info) Description 10/18/2025 Telephone [facility] [place] [facility] [address] [facility] [place] [address] Vero Quinn MD [address] [place] [address] HCN Clinical Concern/Question Social History Tobacco Use Types Packs/Day Years [...] any time in the past [facility] were [facility] homeless or living in [...] encounter Miscellaneous Notes * Telephone Encounter - Geovanna Gonzales S - 10/18/2025 10:55 AM EST Clinical Concern/Question Reason for Call: PT had to cancel his appt 10-21-25 and asking to r/s this to sometime after Nov Best contact number: [phone] Optimal time of day to reach caller: Additional comments/information from caller: Note: Please do not reply to this message. Follow-up communication and further actions as a result of this message need to be communicated with the patient directly, if the patient is not active onMyChart. If the patient is active on MyChart, they will receive notification of the communication/outcome via Rezziet. documented in this encounter Plan of Treatment Upcoming Encounters Date Type Department Care Team (Late st Contact Info) Description 11/30/2025 2:30 PM EST Appointment [facility] [address] [place] [address] 01/31/2026 10:00 AM EDT Office Visit [facility] [place] [facility] [address] [place] [address] Vero Quinn MD [address] [place] [address] documented as of this encounter Goals Goal [...] documented as of this encounter Care Teams Rolling Up Machine Operator Relationship Specialty Start Date End Date Kiera Castro APRN [address] [place] [address] PCP - General 02/17/25 documented as of this encounter
--- OUTSIDE RECORDS SUMMARY | 2025-10-28 07:07 | XMS_ITS | Clinical Summary ---
Author Organization [facility] Address [address] [place] [address] Care Team Providers Care Creative Arts Music Therapist Name Role Phone Matthew Kiera Whitmore APRN Primary Care Provider [phone] Allergies No known active allergies Medications famotidine (Pepcid) 20 MG tablet Take 1 tablet by mouth 2 times a day. Active acetaminophen (Tylenol) 325 MG tablet Take 2 tablets by mouth every 6 hours as needed for pain, headaches or fever. 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 2. 2 mm aneurysm or infundibulum at [...] HFmEF) 02/17/2025 Overview (02/22/2025): - Echo 02-15-25 [facility]: EF 45% - post-op [...] Tobacco abuse disorder 02/16/2025 Overview (02/22/2025): - deputy general counsel on smoking cessation Incomplete right bundle [...] stenosis 02/16/2025 03/02/2025 Overview (02/21/2025): Echo 02-15-25 [facility]: Moderate AI. Moderate (peak gradient velocity 3.2 m/s. Mean AV gradient 22 mmHg. Max gradient 40 mmHg. PETE 1.4 cm sq. 02/21: s/p 4vCABG and bioprosthetic AVR. Aortic valve intact with no significant AI on post TAYLOR. NSTEMI (non-ST elevated myoc ardial infarction) 02/16/2025 03/02/2025 Overview (02/21/2025): S/p 4vCABG on 02/21 Encounters Date Type Department Care Team Description 10/18/2025 Telephone [facility] [address] [place] [address] Vero Quinn MD HCN Clinical Concern/Question 08/02/2025 Telephone [facility] [address] [place] [address] HCN - Patient Message from Last 3 [...] EST Appointment [facility] Radiology [address] [place] [address] 01/31/2026 10:00 AM EDT Office Visit [facility] [address] [place] [address] Vero Quinn MD [address] [place] [address] Health Maintenance Due Date Last [...] 2008 [facility]-Abdominal Aortic Aneurysm (AAA) Screening 2023 [id number] Vaccine (3 - 2024- season) 2025 04/26/2021, 03/29/2021 [facility]-Influenza Vaccine (#1) 2025 [facility]- SDOH Screenings 09/27/2025 [facility]-Adult SDOH Screenings 09/27/2025 03/27/2025 [facility]-RSV Vaccine: 60+ Years or Completed 12/09/2023 [facility]-Hepatitis C Screening Completed 02/21/2025, [facility]-Obesity Intervention Completed 025, 03/25/2025, 03/12/2025, Additional history exists HPV Vaccines (No Doses Required) Completed [facility]-HIB Vaccines Aged Out No longer e [...] Moeller, RN Medical Devices Implanted Type Area Manager Stars Device Identifier Shelf Expiration Date Model / Serial / Lot Valve Aortic Inspiris Resilia 29mm - [id number] - [id number] Implanted:Qty: 1 on 02/21/2025 by Lata Sahu MD at [id number] 09/22/2029 [id number] / [id number] / [id number] Description:We do not rinse Inspirus Valves. Pledget Ptfe Roxie 4.8mm X 6mm - [id number] Implanted:02/21 by Lata Sahu MD at [facility] (Quantity not on file) [employer]-[id number] / / Pledget Ptfe Roxie 4.8mm X 6mm - [id number] Implanted:02/21 by Lata Sahu MD at [facility] (Quantity not on file) [id number] / / Procedures Procedure Name Priority Date/Time [...] Oca MD LAB BLOOD ORDERABLES Final Result [facility] [address] [place] [address] from Last 3 Months or Most Recently Relevant to Health Maintenance Additional Health Concerns Active Problems Noted Date Diagnosed Date Autogenerated Problem 03/25/2025 Insurance [facility] MEDICARE [facility] MEDICAID Advance Directives * Full Code [...] 7:33 PM 02/21/2025 9:54 PM Care Teams Creative Arts Music Therapist Relationship Specialty Start Date End Date Kiera Castro, STUDENT SERVICES COUNSELOR [address] [place] [address] PCP - General 02/17/25
--- OUTSIDE RECORDS SUMMARY | 2025-10-28 07:07 | XMS_ITS | Continuity of Care Document ---
Author Organization [facility], NEUROSURGERY [address] [place] [address] Assessment Encounter Date Assessment Date Assessment LastModified by Organization Details LastModified Time 09/23/2025 09/23/2025 Imaging: cervical MRI. [facility]. 08/10/25. Images reviewed by Dr. Mejía [...] surgery performed around 20 years ago in [place], patient is unsure what exactly he had [...] zane spine , 4 or 5 view [facility] [address] [place] [address] Priscillamoustapha ayon Name: SHELLY ayon : [phone] [...] Christianson MD on 2024 2:24 PM INTERFACE [facility] [address] [place], [address], 09/23/2025 14:29:33 Result Notes Documentation Provider Name and Address Organization Details Recorded Time Xr, Cervical Spine, 4 Or 5 View : [facility] [address] [place] [address] Patient Name: SHELLY NELSON Patient : 1960 [...] Interpreted By: Murtaza Christianson MD Not Available [facility] 09/23/2025 14:29:33 Medical Equipment None Reported. Vitals None Recorded Social History None recorded. Functional Status None recorded. Mental Status None recorded. Family History Nothing Reported. 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 No medical history recorded. Past Encounters Encounter ID Performer Location Encounter Start Date Encounter Closed Date Diagnosis/Indication Diagnosis SNOMED-CT Code Diagnosis ICD10 Code Diagnosis IMO Codes Diagnosis Note [id number] SAM SHEN PA-C NEUROSURG [address] [place] [address] 09/23/2025 12:32:48 09/24/2025 04:06:03 Spinal stenosis in cervical region 39856457 M48.02 99806 Health Concerns Section Related Observation LastModified by Organization Detai ls LastModified Time None Recorded Concern Status LastModified by Organization Details LastModified Time None Recorded Payers Encounter Date Sequence Insurance Name Policy Number Policy Cowart Covered Member ID Cowart Member ID Guarantor Name 09/23/2025 1 [facility] (MEDICARE REPLACEMENT/AD VANTAGE - HMO) LINADSGEOVANNA Shelly Nelson [id number] Kyleveronica Nelson 09/23/2025 2 [facility] (MEDICAID REPLACEMENT - HMO) LINACD Kyleveronica Nelson [id number] Shelly Nelson Notes Date Note Type Note Provider Name and Address Organization Details Recorded Time 09/23/2025 text/html Mr Nelson is a 65-year-old male who was referred here for worsening neck and left arm pain. He had a previous cervical surgery performed around 20 years ago in [place], patient is unsure what exactly he had [...] dexterity or instability. SAM SHEN PA-C [address] [place], [address], [facility] 09/23/2025 15:38:56
--- NOTE | 2025-10-28 07:08 | CT_ITS ---
FINAL REPORT TECHNIQUE: Thin section axial images were obtained through the cervical spine without contrast. Multiplanar reconstruction images were obtained from the axial data. Exam was performed using dose reduction techniques. CLINICAL HISTORY: SPINAL STENOSIS COMPARISON: 02/25/2023 FINDINGS: There is no acute fracture or acute malalignment of the cervical spine. There is no evidence of unilateral or bilateral facet lock. Vertebral body height is preserved. There are postoperative changes from anterior fusion of C7 and T1. The hardware is intact. There is multilevel degenerative disc disease, not significantly changed from prior exam. There is limited evaluation of the soft tissues. Soft tissue windows were not submitted. IMPRESSION: Multilevel degenerative disc disease. Reviewed, Interpreted and Dictated by Monica Patel MD Transcribed by Mirella Bowens Authenticated and . [facility]
== END 2025-10-28 23:59 | disposition home or self-care (01) ==
LOC: RAD 07:04
PROVIDERS: PCP Nurse Practitioner Family; Visit Provider Neurological Surgery
DX: M50.30 Other cervical disc degeneration, unspecified cervical region (principal); Z98.1 Arthrodesis status
CPT/HCPCS: 72125